=== PATIENT | male | born 1950 | race Caucasian/White ===

== ENCOUNTER 2017-09-15 06:00 | Outpatient (RCR) | payer MEDICARE, OTHER, SELFPAY | END 2017-09-16 23:59 | LOC: PR 06:00 | PROVIDERS: Family Provider Family Medicine; PCP Family Medicine; Visit Provider Internal Medicine Critical Care Medicine | DX: Z00.00 Encounter for general adult medical examination without abnormal findings (principal) ==

== ENCOUNTER 2017-10-08 06:56 | Outpatient (RCR) | payer MEDICARE, OTHER, SELFPAY ==
[2017-08-18 07:49] LABS: International Normalized Ratio 2.8; Prothrombin Time (Protime)PT. 28.2 SECONDS (11.7-14.9)
[2017-09-17 09:04] LABS: International Normalized Ratio 1.9; Prothrombin Time (Protime)PT. 20.7 SECONDS (11.7-14.9)
[2017-10-01 08:18] LABS: International Normalized Ratio 1.3; Prothrombin Time (Protime)PT. 15.2 SECONDS (11.7-14.9)
[2017-10-08 07:25] LABS: International Normalized Ratio 1.5; Prothrombin Time (Protime)PT. 17.8 SECONDS (11.7-14.9)
[2017-10-08 07:40] LABS: AST(SGOT) 55 U/L (15-37); Alanine Aminotransfer ALT/SGPT 46 U/L (16-61); Albumin, Serum 3.9 g/dL (3.2-5.0); Alkaline Phosphatase 60 U/L (45-117); Bilirubin, Direct 0.27 mg/dL (0.00-0.30); Cholesterol 157 mg/dL (200); Globulin 3.9 g/dL (2.2-4.2); High Density Lipoprotein 138 mg/dL; Protein, Total 7.8 g/dL (6.4-8.2); Triglycerides 39 mg/dL; Very Low Density Lipoprotein 8 mg/dL (5-40)
== END 2017-10-08 07:00 | disposition home or self-care (01) ==
LOC: LAB 06:56
PROVIDERS: Nurse Practitioner Family; Family Provider Family Medicine; PCP Family Medicine; Visit Provider Internal Medicine Cardiovascular Disease
DX: I73.9 Peripheral vascular disease, unspecified (principal); Z95.810 Presence of automatic (implantable) cardiac defibrillator; Z79.01 Long term (current) use of 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; Z79.899 Other long term (current) drug therapy
CPT/HCPCS: 36415; 80061; 80076; 85610

== ENCOUNTER 2017-10-13 06:00 | Outpatient (RCR) | payer MEDICARE, OTHER, SELFPAY | END 2017-10-14 23:59 | LOC: PR 06:00 | PROVIDERS: Family Provider Family Medicine; PCP Family Medicine; Visit Provider Internal Medicine Critical Care Medicine | DX: Z00.00 Encounter for general adult medical examination without abnormal findings (principal) ==

== ENCOUNTER 2017-11-10 07:13 | Outpatient (RCR) | payer MEDICARE, OTHER, SELFPAY ==
[2017-10-20 09:38] LABS: International Normalized Ratio 2.1
[2017-10-20 09:58] LABS: T4 Free Direct 0.93 ng/dL (0.76-1.46); T4 Total, Thyroxin 5.4 ug/dL (4.5-12.1); Thyroid Stim Hormone (TSH) 2.24 uIU/mL (0.358-3.74)
[2017-11-10 08:00] LABS: International Normalized Ratio 1.9; Prothrombin Time (Protime)PT. 21.6 SECONDS (11.7-14.9)
== END 2017-11-10 08:00 | disposition home or self-care (01) ==
LOC: LAB 07:13
PROVIDERS: Family Provider Family Medicine; PCP Family Medicine; Visit Provider Internal Medicine Cardiovascular Disease
DX: E03.9 Hypothyroidism, unspecified (principal); Z95.810 Presence of automatic (implantable) cardiac defibrillator; Z79.899 Other long term (current) drug therapy; Z79.01 Long term (current) use of 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; I73.9 Peripheral vascular disease, unspecified
CPT/HCPCS: 36415; 84436; 84439; 84443; 85610

== ENCOUNTER 2017-11-12 06:00 | Outpatient (RCR) | payer SELFPAY | END 2017-11-14 23:59 | LOC: PR 06:00 | PROVIDERS: Family Provider Family Medicine; PCP Family Medicine; Visit Provider Internal Medicine Critical Care Medicine | DX: Z00.00 Encounter for general adult medical examination without abnormal findings (principal) ==

== ENCOUNTER → 2017-11-17 05:43 | Outpatient (CLI) | payer MEDICARE, OTHER, SELFPAY ==
[2017-09-23 07:39] VITALS: BP 156/72; BMI 24.3
--- NOTE | 2017-11-17 14:27 | PFTCOMP ---
COMPLETE PULMONARY FUNCTION TEST INTERPRETATION Brief HPI: Patient is a 66 year old male, currently under the care of Cheryl Schaeffer, who presents to [facility] for complete pulmonary function tests secondary to diagnosis of COPD. Respiratory therapist reports good effort and reproducible results. Interpretation: Forced expiration spirometry shows a very severe large airways obstructive ventilatory defect with an FEV1 of 31 % predicted. There is a significant bronchodilator response in FVC by ATS criteria. Spirograms are of good quality and plateau slowly, indicating slowly emptying areas of the lungs. The respiratory flow volume loop shows decreased expiratory flow rates at all lung volumes consistent with airway obstruction. Lung volumes by body plethysmography show a normal total lung capacity at 6.31 L, 117% predicted. FRC and RV are elevated out of proportion. Lung volume measurements are consistent with air-trapping. Diffusion capacity by carbon monoxide is decreased at 49 % predicted. The airway resistance is elevated. Compared to previous pulmonary function tests from 11/05/2016, there has been a significant change in air trapping with hyperinflation (improvement). Impression: Partially reversible very severe large airways obstructive ventilatory defect with symmetric reduction diffusing capacity and improvement in air trapping compared to previous study.
--- NOTE | 2017-11-17 14:30 | PFTCOMP_ITS ---
COMPLETE PULMONARY FUNCTION TEST INTERPRETATION Brief HPI: Patient is a 66 year old male, currently under the care of Cheryl Schaeffer, who presents to [facility] for complete pulmonary function tests secondary to diagnosis of COPD. Respiratory therapist reports good effort and reproducible results. Interpretation: Forced expiration spirometry shows a very severe large airways obstructive ventilatory defect with an FEV1 of 31 % predicted. There is a significant bronchodilator response in FVC by ATS criteria. Spirograms are of good quality and plateau slowly, indicating slowly emptying areas of the lungs. The respiratory flow volume loop shows decreased expiratory flow rates at all lung volumes consistent with airway obstruction. Lung volumes by body plethysmography show a normal total lung capacity at 6.31 L , 117% predicted. FRC and RV are elevated out of proportion. Lung volume measurements are consistent with air-trapping. Diffusion capacity by carbon monoxide is decreased at 49 % predicted. The airway resistance is elevated. Compared to previous pulmonary function tests from 11/05/2016, there has been a significant change in air trapping with hyperinflation (improvement). Impression: Partially reversible very severe large airways obstructive ventilatory defect with symmetric reduction diffusing capacity and improvement in air trapping compared to previous study.
== END ==
PROVIDERS: Family Provider Family Medicine; PCP Family Medicine; Visit Provider Nurse Practitioner Acute Care
DX: J44.9 Chronic obstructive pulmonary disease, unspecified (principal)
CPT/HCPCS: 94060; 94726; 94729

== ENCOUNTER 2017-12-01 07:13 | Outpatient (RCR) | payer MEDICARE, OTHER, SELFPAY ==
[2017-11-24 07:58] LABS: International Normalized Ratio 1.3; Prothrombin Time (Protime)PT. 16.1 SECONDS (11.7-14.9)
== END 2017-12-01 08:00 | disposition home or self-care (01) ==
LOC: LAB 07:13
PROVIDERS: Family Provider Family Medicine; PCP Family Medicine; Visit Provider Internal Medicine Cardiovascular Disease
DX: I73.9 Peripheral vascular disease, unspecified (principal); Z95.810 Presence of automatic (implantable) cardiac defibrillator; Z79.01 Long term (current) use of 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; Z79.899 Other long term (current) drug therapy
CPT/HCPCS: 36415; 85610

== ENCOUNTER 2017-12-10 06:00 | Outpatient (RCR) | payer MEDICARE, OTHER, SELFPAY | END 2017-12-14 23:59 | LOC: PR 06:00 | PROVIDERS: Family Provider Family Medicine; PCP Family Medicine; Visit Provider Internal Medicine Critical Care Medicine | DX: Z00.00 Encounter for general adult medical examination without abnormal findings (principal) ==

== ENCOUNTER → 2017-12-16 13:35 | Outpatient (CLI) | payer MEDICARE, OTHER, SELFPAY ==
--- NOTE | 2017-12-16 13:36 | ECHOD_ITS ---
Reason For Study: PHTN Procedure This was a 2D Doppler, Color Flow transthoracic echocardiogram. Exam performed in department. Left Ventricle Normal size and thickness. The estimated ejection fraction is 45-50 %. Stage 1 diastolic dysfunction. There is mild global hypokinesis of the left ventricle. Right Ventricle Mildly dilated right ventricle. ICD or pacer leads identified within the right ventricle. Normal systolic function. Atria Normal left atrium. Normal right atrium. Normal atrial septum. Mitral Valve The mitral valve is structurally normal. No prolapse or stenosis seen. Tricuspid Valve Normal tricuspid valve. Mild (1+) tricuspid valve insufficiency. Right ventricular systolic pressure estimated to be 46 mmHg. Mild pulmonary hypertension. Aortic Valve Normal aortic valve. Trisinus/trileaflet aortic valve. Pulmonic Valve Normal pulmonic valve. Great Vessels Normal aortic root. Normal arch. Normal inferior vena cava. Inferior vena cava collapse with sniff. Pericardium/Pleural No pericardial effusion. MMode/2D Measurements & Calculations LVIDd: 5.1 cm IVSd: 0.96 cm Ao root diam: 3.1 cm LVIDs: 3.6 cm LVPWd: 0.89 cm RVDd: 3.8 cm FS: 28.7 % LAV(MOD-bp): 47.2 ml LA A4 area: 15.2 cm2 RA A4 area: 11.8 cm2 LAV(MOD-bp) Indexed: 27.1 ml/m2 LAV(MOD-sp2): 54.4 ml LAV(MOD-sp4): 39.2 ml Doppler Measurements & Calculations MV E max jason: 42.4 cm/sec Lat Peak E' Jason: 10.0 cm/sec Med Peak E' Jason: 6.5 cm/sec MV A max jason: 76.6 cm/sec E/E' lat: 4.2 E/E' med: 6.5 MV E/A: 0.55 Ao V2 max: 108.6 cm/sec LV V1 max: 82.5 cm/sec TR max jason: 295.8 cm/sec Ao max P.7 mmHg LV V1 max P.7 mmHg TR max P.3 mmHg Interpretation Summary The estimated ejection fraction is 45-50 %. Stage 1 diastolic dysfunction. There is mild global hypokinesis of the left ventricle. Mildly dilated right ventricle. Mild (1+) tricuspid valve insufficiency. Right ventricular systolic pressure estimated to be 46 mmHg. Mild pulmonary hypertension. Compared to echo report dated 12/17/2016, LV function has markedly improved from 20% to 45-50%. Ordering Physician: Case Cantrell Referring Physician: JOSE MAURER Performed By: Riana Scherer, FEDERICOCS, RVT
== END ==
PROVIDERS: Family Provider Family Medicine; PCP Family Medicine; Visit Provider Internal Medicine Cardiovascular Disease
DX: I50.9 Heart failure, unspecified (principal); I51.9 Heart disease, unspecified; R06.02 Shortness of breath
CPT/HCPCS: 93306

== ENCOUNTER 2018-01-02 15:51 | Emergency (ER) | payer MEDICARE, OTHER, SELFPAY ==
[2018-01-02 15:53] VITALS: BP 194/89; PULSE 90; RESP 16; TEMP 36.2; O2SAT 99; BMI 23.5
[2018-01-02] MEDS: Silver Nitrate (BKC) 2 EACH TOPICAL (16:05)
[2018-01-02 16:06] VITALS: BP 175/80; PULSE 85; RESP 14; O2SAT 99
--- NOTE | 2018-01-02 16:15 | ED.DCSUM_ITS ---
- ER Visit Summary Date of Service: 01/02/18 Chief Complaint: Wound bleeding History of Present Illness: The patient is a 67 M who was [facility] at [facility] for left forearm skin tear than been bleeding for the past 4 days. Pressure dressing was applied. He went back to the clinic today for another small skin tear that is just proximal to the original lesion that occurred last night. Pressure dressing was again applied but it continues to bleed through the dressing. Patient is currently on Coumadin. He is scheduled to have his level rechecked next week. Last month was reportedly high. Physical Examination: Vital signs are significant for blood pressure 194/89, otherwise vitals unremarkable. He is on chronic nasal cannula O2. Patient sitting upright in bed no acute distress. He is alert and talkative. Left upper extremity examination was a small 2 x 3 mm skin tear in the left forearm with mild continuous oozing. There is a more distal lesion that is well scabbed over and not bleeding. He has good distal pulses with normal range of motion. Test Results: [] Emergency Department Course and Treatment: Silver nitrate was applied to the bleeding lesion with good control. Dressing is applied. On repeat evaluation he has had no bleeding onto the dressing at all. His INR is checked and is currently 2.7. Patient had been instructed to hold his Coumadin until Thursday when it is checked again. Treatment Plan: [] Disposition: Discharge Impression: 1. Skin tear with chemical cautery 2. Supratherapeutic INR This note was generated with [employer] dictation software. It may contain incorrect words, spelling, and punctuation that were not noted in review of the chart prior to signing ED Disposition - Plan for ED Patient: Chief Complaint: Wound Referrals: Joseluis Foote III, MD [Primary Care Provider] -
[2018-01-02 16:45] LABS: International Normalized Ratio 2.7; Prothrombin Time (Protime)PT. 28.9 SECONDS (11.7-14.9)
--- NOTE | 2018-01-02 16:56 | ED.DEP ---
ED Disposition - Plan for ED Patient: Disposition: Home or Assisted Living Chief Complaint: Wound Instructions: ED Avulsion Dermal Referrals: Joseluis Foote III, MD [Primary Care Provider] -
[2018-01-02 17:00] VITALS: BP 168/75; PULSE 74; RESP 16; O2SAT 96
== END 2018-01-02 17:02 | disposition home or self-care (01) ==
PROVIDERS: Emergency Provider Emergency Medicine; Family Provider Family Medicine; PCP Family Medicine
DX: S51.812D Laceration without foreign body of left forearm, subsequent encounter (principal); X58.XXXD Exposure to other specified factors, subsequent encounter; R23.3 Spontaneous ecchymoses; E78.00 Pure hypercholesterolemia, unspecified; J44.9 Chronic obstructive pulmonary disease, unspecified; Z87.891 Personal history of nicotine dependence; Z79.01 Long term (current) use of 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
CPT/HCPCS: 85610; 99282

== ENCOUNTER 2018-01-14 06:00 | Outpatient (RCR) | payer MEDICARE, OTHER, SELFPAY | END 2018-01-14 23:59 | LOC: PR 06:00 | PROVIDERS: Family Provider Family Medicine; PCP Family Medicine; Visit Provider Internal Medicine Critical Care Medicine | DX: Z00.00 Encounter for general adult medical examination without abnormal findings (principal) ==

== ENCOUNTER 2018-01-14 06:38 | Outpatient (RCR) | payer MEDICARE, OTHER, SELFPAY ==
[2017-12-22 08:48] LABS: Prothrombin Time (Protime)PT. 39.4 SECONDS (11.7-14.9)
[2018-01-05 08:30] LABS: Hematocrit 32.8 % (40-54); Hemoglobin 11.3 g/dl (13.0-16.5); International Normalized Ratio 1.3; Prothrombin Time (Protime)PT. 15.7 SECONDS (11.7-14.9)
[2018-01-14 07:14] LABS: International Normalized Ratio 1.1
== END 2018-01-14 07:00 | disposition home or self-care (01) ==
LOC: LAB 06:38
PROVIDERS: Physician Assistant Medical; Family Provider Family Medicine; PCP Family Medicine; Visit Provider Internal Medicine Cardiovascular Disease
DX: I73.9 Peripheral vascular disease, unspecified (principal); Z95.810 Presence of automatic (implantable) cardiac defibrillator; Z79.01 Long term (current) use of 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; Z79.899 Other long term (current) drug therapy
CPT/HCPCS: 36415; 85014; 85018; 85610

== ENCOUNTER 2018-02-09 06:37 | Outpatient (RCR) | payer MEDICARE, OTHER, SELFPAY ==
[2018-01-26 04:16] LABS: International Normalized Ratio 1.6; Prothrombin Time (Protime)PT. 19.5 SECONDS (11.7-14.9)
[2018-02-02 07:31] LABS: International Normalized Ratio 1.5; Prothrombin Time (Protime)PT. 17.7 SECONDS (11.7-14.9)
[2018-02-09 07:11] LABS: International Normalized Ratio 1.6; Prothrombin Time (Protime)PT. 19.4 SECONDS (11.7-14.9)
== END 2018-02-09 07:00 | disposition home or self-care (01) ==
LOC: LAB 06:37
PROVIDERS: Family Provider Family Medicine; PCP Family Medicine; Visit Provider Internal Medicine Cardiovascular Disease
DX: I73.9 Peripheral vascular disease, unspecified (principal); Z95.810 Presence of automatic (implantable) cardiac defibrillator; Z79.01 Long term (current) use of 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; Z79.899 Other long term (current) drug therapy
CPT/HCPCS: 36415; 85610

== ENCOUNTER 2018-02-11 06:00 | Outpatient (RCR) | payer MEDICARE, OTHER, SELFPAY | END 2018-02-13 23:59 | LOC: PR 06:00 | PROVIDERS: Family Provider Family Medicine; PCP Family Medicine; Visit Provider Internal Medicine Critical Care Medicine | DX: Z00.00 Encounter for general adult medical examination without abnormal findings (principal) ==

== ENCOUNTER 2018-03-09 06:56 | Outpatient (RCR) | payer MEDICARE, OTHER, SELFPAY ==
[2018-02-23 07:28] LABS: International Normalized Ratio 1.9
[2018-03-09 07:25] LABS: Prothrombin Time (Protime)PT. 31.6 SECONDS (11.7-14.9)
[2018-03-18 09:12] LABS: International Normalized Ratio 3.6
== END 2018-03-09 09:00 | disposition home or self-care (01) ==
LOC: LAB 06:56
PROVIDERS: Family Provider Family Medicine; PCP Family Medicine; Visit Provider Internal Medicine Cardiovascular Disease
DX: I51.3 Intracardiac thrombosis, not elsewhere classified (principal); Z79.01 Long term (current) use of 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
CPT/HCPCS: 36415; 85610

== ENCOUNTER 2018-03-16 06:00 | Outpatient (RCR) | payer MEDICARE, OTHER, SELFPAY | END 2018-03-16 23:59 | LOC: PR 06:00 | PROVIDERS: Family Provider Family Medicine; PCP Family Medicine; Visit Provider Internal Medicine Critical Care Medicine | DX: Z00.00 Encounter for general adult medical examination without abnormal findings (principal) ==

== ENCOUNTER 2018-04-06 06:45 | Outpatient (RCR) | payer MEDICARE, OTHER, SELFPAY ==
[2018-03-23 07:49] LABS: International Normalized Ratio 2.9; Prothrombin Time (Protime)PT. 30.5 SECONDS (11.7-14.9)
[2018-03-30 08:09] LABS: International Normalized Ratio 3.2; Prothrombin Time (Protime)PT. 32.7 SECONDS (11.7-14.9)
[2018-04-06 07:35] LABS: International Normalized Ratio 3.3; Prothrombin Time (Protime)PT. 33.5 SECONDS (11.7-14.9)
[2018-04-06 08:19] LABS: AST(SGOT) 49 U/L (15-37); Alanine Aminotransfer ALT/SGPT 42 U/L (16-61); Albumin, Serum 3.7 g/dL (3.2-5.0); Alkaline Phosphatase 52 U/L (45-117); Bilirubin, Direct 0.25 mg/dL (0.00-0.30); Cholesterol 180 mg/dL (200); Globulin 3.9 g/dL (2.2-4.2); High Density Lipoprotein 145 mg/dL; Protein, Total 7.6 g/dL (6.4-8.2); Triglycerides 86 mg/dL; Very Low Density Lipoprotein 17 mg/dL (5-40)
== END 2018-04-19 06:54 | disposition home or self-care (01) ==
LOC: LAB 06:45
PROVIDERS: Nurse Practitioner Family; Family Provider Family Medicine; PCP Family Medicine; Visit Provider Internal Medicine Cardiovascular Disease
DX: I51.3 Intracardiac thrombosis, not elsewhere classified (principal); Z79.01 Long term (current) use of 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; E78.5 Hyperlipidemia, unspecified; Z79.899 Other long term (current) drug therapy
CPT/HCPCS: 36415; 80061; 80076; 85610

== ENCOUNTER 2018-04-15 06:00 | Outpatient (RCR) | payer SELFPAY | END 2018-04-16 23:59 | LOC: PR 06:00 | PROVIDERS: Family Provider Family Medicine; PCP Family Medicine; Visit Provider Internal Medicine Critical Care Medicine | DX: Z00.00 Encounter for general adult medical examination without abnormal findings (principal) ==

== ENCOUNTER 2018-05-11 06:47 | Outpatient (RCR) | payer MEDICARE, OTHER, SELFPAY ==
[2018-04-20 08:28] LABS: International Normalized Ratio 3.8; Prothrombin Time (Protime)PT. 37.4 SECONDS (11.7-14.9)
[2018-05-04 07:25] LABS: International Normalized Ratio 2.1; Prothrombin Time (Protime)PT. 23.3 SECONDS (11.7-14.9)
[2018-05-11 08:03] LABS: International Normalized Ratio 1.4; Prothrombin Time (Protime)PT. 17.4 SECONDS (11.7-14.9)
== END 2018-05-11 08:00 | disposition home or self-care (01) ==
LOC: LAB 06:47
PROVIDERS: Family Provider Family Medicine; PCP Family Medicine; Visit Provider Internal Medicine Cardiovascular Disease
DX: I51.3 Intracardiac thrombosis, not elsewhere classified (principal); Z79.01 Long term (current) use of 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
CPT/HCPCS: 36415; 85610

== ENCOUNTER 2018-05-13 06:00 | Outpatient (RCR) | payer MEDICARE, OTHER, SELFPAY | END 2018-05-16 23:59 | LOC: PR 06:00 | PROVIDERS: Family Provider Family Medicine; PCP Family Medicine; Visit Provider Internal Medicine Critical Care Medicine | DX: Z00.00 Encounter for general adult medical examination without abnormal findings (principal) ==

== ENCOUNTER 2018-05-13 19:42 | Emergency (ER) | payer MEDICARE, OTHER, SELFPAY ==
[2018-05-13 19:44] VITALS: BP 154/94; PULSE 80; RESP 18; TEMP 36.2; O2SAT 98; BMI 33.8
[2018-05-13 19:45] VITALS: PULSE 81; RESP 18; TEMP 36.2; O2SAT 99; BMI 33.8
--- NOTE | 2018-05-13 19:50 | CT_ITS ---
STUDY: CT CHEST WITH CONTRAST REASON FOR EXAM: Male, 67 years old. Trauma. RADIATION DOSAGE (If Supplied By Facility): CTDIvol = ( 17.52 ) mGy, DLP = ( 1616.23 ) mGycm TECHNIQUE: Transaxial imaging was performed following intravenous administration of 100ml ml of Isovue 300 contrast material. Individualized dose optimization techniques were used for this CT. COMPARISON: None. FINDINGS: No acute airspace disease or pneumothorax. Spiculated nodule in the left upper lobe measuring 1.3 x 1.1 cm. There is no demonstrated pleural abnormality. Normal heart and pericardium. Left chest wall pacing device. Normal mediastinum. Normal hilar regions. Normal enhanced pulmonary arteries. There is atherosclerotic calcification of the aortic arch with tortuosity and elongation of the aortic arch and descending thoracic aorta. Nondisplaced right anterior fourth, fifth, sixth, seventh and eighth rib fractures. No evidence of left lateral rib fractures. No evidence of thoracic spine fracture or sternal fracture. CT/Chest WITH Contrast IMPRESSION: 1. Multiple nondisplaced hairline fractures of the right anterior ribs as above 2. No acute airspace disease or pneumothorax. Suspicious spiculated left upper lobe nodule. Malignancy cannot be excluded. Malignancy workup is recommended. Electronically Signed: Bony Myers DO at 20:36 EDT Tel , Service support ,
--- NOTE | 2018-05-13 19:50 | CT_ITS ---
STUDY: CT ABDOMEN AND PELVIS WITH CONTRAST REASON FOR EXAM: Male, 67 years old. Abdominal pain after fall RADIATION DOSAGE (If Supplied By Facility): CTDIvol = ( 17.52 ) mGy, DLP = ( 1616.23 ) mGycm TECHNIQUE: Transaxial images were obtained from the dome of the diaphragm to the symphysis pubis without oral contrast. 100ML ml of Isovue 300 contrast was administered. Sagittal and coronal images were reconstructed. Individualized dose optimization techniques were used for this CT. COMPARISON: None. FINDINGS: The visualized lung bases are unremarkable. The visualized portions of the heart are within normal limits. Normal liver. Normal gallbladder and extrahepatic biliary system. Normal spleen. Normal pancreas. Normal bilateral adrenal glands. Normal right kidney. Normal left kidney. Normal visualized stomach. Normal small intestine. There are multiple colonic diverticula consistent with diverticulosis. The appendix is visualized and appears normal. No evidence of retroperitoneal hemorrhage. Normal abdominal aorta. Normal inferior vena cava. Normal retroperitoneum. Prominent distention of the bladder. Query urinary retention. Normal visualized prostate gland. Normal abdominal wall. There are diffuse degenerative changes of the visualized lumbar spine. CT/Abdomen/Pelvis W IV Cont ONLY IMPRESSION: No acute traumatic findings of the abdomen or pelvis. Prominent distention of the bladder. Unsure if this represents urinary retention. Electronically Signed: Bony Myers DO at 20:38 EDT Tel , Service support ,
--- NOTE | 2018-05-13 19:50 | EKG12_ITS ---
Test Reason : NEURO S/SX, FALL Blood Pressure : / mmHG Vent. Rate : 076 BPM Atrial Rate : 076 BPM P-R Int : 238 ms QRS Dur : 128 ms QT Int : 458 ms P-R-T Axes : 053 053 081 degrees QTc Int : 515 ms Sinus rhythm with 1st degree A-V block Non-specific intra-ventricular conduction block Abnormal ECG Confirmed by OLAF SUBRAMANIAN, HCÉTOR ([id number]), photographic editor YARIEL STILES ([id number]) on 05/17/2018 2:52:22 PM Referred By: ALEC Confirmed By:HÉCTOR BABIN MD
[2018-05-13 19:51] LABS: Bedside Glucose 126 mg/dL (70-110)
--- NOTE | 2018-05-13 19:51 | CT_ITS ---
STUDY: CT BRAIN WITHOUT CONTRAST REASON FOR EXAM: Male, 67 years old. Trauma RADIATION DOSAGE (If Supplied By Facility): CTDIvol = ( 44.99 ) mGy, DLP = ( 779.24 ) mGycm TECHNIQUE: Transaxial CT imaging of the brain was performed without administration of intravenous contrast material. Individualized dose optimization techniques were used for this CT. COMPARISON: None. FINDINGS: Normal soft tissue structures. Normal calvarium. There is mild cerebral atrophy with widening of the extra-axial spaces and ventricular dilatation. There are areas of decreased attenuation within the white matter tracts of the supratentorial brain, consistent with microvascular disease changes. Normal basal ganglia and thalami. Normal brainstem. Normal cerebellum. There is no intracranial hemorrhage. There are no findings of an acute ischemic infarction. There is mucoperiosteal inflammatory disease of the paranasal sinuses consistent with mild chronic sinusitis. CT/Brain/Head without Contrast IMPRESSION: Chronic involutional changes of the brain. Electronically Signed: Bony Myers DO at 20:10 EDT Tel , Service support ,
--- NOTE | 2018-05-13 19:51 | CT_ITS ---
STUDY: CT CERVICAL SPINE WITHOUT CONTRAST REASON FOR EXAM: Male, 67 years old. Trauma RADIATION DOSAGE (If Supplied By Facility): CTDIvol = ( 25.13 ) mGy, DLP = ( 487.86 ) mGycm TECHNIQUE: High resolution transaxial imaging was performed without contrast material. Sagittal and coronal images were reconstructed. Individualized dose optimization techniques were used for this CT. COMPARISON: None FINDINGS: Normal craniovertebral junction. Normal anterior atlantoaxial articulation. Normal odontoid process. Normal cervical lordosis. Normal vertebral bodies and posterior osseous elements. No acute fracture or listhesis. Normal mineralization. Mild multilevel degenerative disc disease. No critical central canal stenosis. Surrounding soft tissues are grossly within normal limits. Atherosclerotic disease of the carotid arteries. CT/Spine Cervical without Contras IMPRESSION: Multilevel degenerative changes, as described above. Electronically Signed: Bony Myers DO at 20:11 EDT Tel , Service support ,
[2018-05-13 20:04] LABS: Absolute Lymphocyte Count 1.56 X10^3/ul (0.83-4.51); Absolute Neutrophil Count 6.7 X10^3/uL (2.0-7.7); Basophil# 0.02 X10^3/uL; Basophil% 0.2 % (0-1); Eosinophil# 0.05 X10^3/uL; Eosinophils% 0.5 % (0-5); Hematocrit 33.5 % (40-54); Hemoglobin 11.5 g/dl (13.0-16.5); Lymphocyte # 1.56 X10^3/ul (4.0); Lymphocyte % 16.7 % (19-41); Mean Corp Hgb Conc 34.3 g/gl (32-36); Mean Corpuscular Hgb 32.6 pg (27.0-32.0); Mean Corpuscular Volume 94.9 fL (80-94); Mean Platelet Vol. 8.6 fl (6.2-12.0); Monocyte# 0.92 X10^3/uL; Monocyte% 9.9 % (0-10); Neutrophil # 6.67 X10^3/uL (2.7-7.7); Neutrophil % 71.4 % (47-70); Platelet Count 187 K/mm3 (150-450); RBC Distribution Width SD 47.7 fl (35.1-43.9); Red Blood Count 3.53 M/mm3 (4.6-6.2); White Blood Count 9.3 K/mm3 (4.4-11.0)
[2018-05-13 20:05] LABS: POSITIVE COUNT NO; POSITIVE DIFFERENTIAL NO; POSITIVE MORPHOLOGY NO
[2018-05-13 20:11] LABS: International Normalized Ratio 1.3; Prothrombin Time (Protime)PT. 15.8 SECONDS (11.7-14.9)
[2018-05-13 20:12] LABS: Partial Thromboplast Time 32.1 Seconds (24.1-36.2)
[2018-05-13 20:15] VITALS: O2SAT 98
[2018-05-13 20:15] LABS: Anion Gap 11 (5-15); BUN 18 mg/dL (7-18); BUN/Creat Ratio 26.4 RATIO (10-20); Calcium,Total 8.3 mg/dL (8.5-10.1); Chloride 84 mmol/L (98-107); Creatinine, Serum 0.68 mg/dL (0.70-1.30); EST Glomerular Filtration Rate 123 mL/min (>60); Est Glom Filt Rate - Afr Amer 149 mL/min (>60); Estimated Creatinine Clearance 62.35 ml/min; Glucose 115 mg/dL (74-106); Potassium 3.3 mmol/L (3.5-5.1); Sodium Level 124 mmol/L (136-145)
[2018-05-13] MEDS: 0.9% Normal Saline 1,000 ML 999 ML IV (20:21)
--- NOTE | 2018-05-13 20:35 | ED.VISSUMM ---
- ER Visit Summary Date of Service: 05/13/18 Chief Complaint: Fall History of Present Illness: The patient is a 67 M that apparently fell down a flight of stairs at home. He was found at the bottom of his stairs at home. Family called EMS. He was found to have a laceration to his occipital scalp. He had multiple abrasions. They felt that he was confused and he was having difficulty breathing. They were assisting with ventilations with a bag valve mask. On arrival, the patient says he was feeling well prior to the fall. He says he did have 5 beers today. He is complaining of some back pain. Denies any weakness or numbness. He does take Coumadin. Physical Examination: Afebrile and vital signs unremarkable. 99% on 2 L. GCS 14 for some slurred speech. No focal or lateralizing neurologic abnormalities. Heart regular rate and rhythm. Lungs clear bilaterally. Abdomen slightly distended but otherwise nontender. Good pulses in all extremities, symmetric. He has an occipital laceration. Cervical collar is in place. Multiple abrasions over his extremities. Test Results: See below Emergency Department Course and Treatment: Patient seen immediately in the trauma room. Cervical spine immobilization maintained. Patient is on oxygen. He had a fluid bolus and 2 IVs. Hoang catheter placed. He was placed on a environmental monitoring technician. CT head and neck showed chronic changes. CT chest, abdomen, pelvis pending. INR 1.3. Labs fairly unremarkable. Alcohol level 222. Tox screen pending. Type and screen pending. EKG showed sinus rhythm. No signs of ischemia or infarction. I suspect the patient may have fallen secondary to alcohol use. There are no signs of stroke. He will need further observation in the hospital out of trauma center. At his request, I did call [facility] and Dr. Gary accepted the patient to the emergency department. Treatment Plan: As above Disposition: Transfer to [facility] Impression: 1. Fall 2. Scalp laceration 3. Multiple abrasions This note was generated with [employer] dictation software. It may contain incorrect words, spelling, and punctuation that were not noted in review of the chart prior to signing ED Disposition - Plan for ED Patient: Chief Complaint: Neuro S/Sx Referrals: Joseluis Foote III, MD [Primary Care Provider] -
--- NOTE | 2018-05-13 20:41 | ED.DCSUM_ITS ---
- ER Visit Summary Date of Service: 05/13/18 Chief Complaint: Fall History of Present Illness: The patient is a 67 M that apparently fell down a flight of stairs at home. He was found at the bottom of his stairs at home. Family called EMS. He was found to have a laceration to his occipital scalp. He had multiple abrasions. They felt that he was confused and he was having difficulty breathing. They were assisting with ventilations with a bag valve mask. On arrival, the patient says he was feeling well prior to the fall. He says he did have 5 beers today. He is complaining of some back pain. Denies any weakness or numbness. He does take Coumadin. Physical Examination: Afebrile and vital signs unremarkable. 99% on 2 L. GCS 14 for some slurred speech. No focal or lateralizing neurologic abnormalities. Heart regular rate and rhythm. Lungs clear bilaterally. Abdomen slightly distended but otherwise nontender. Good pulses in all extremities, symmetric. He has an occipital laceration. Cervical collar is in place. Multiple abrasions over his extremities. Test Results: See below Emergency Department Course and Treatment: Patient seen immediately in the trauma room. Cervical spine immobilization maintained. Patient is on oxygen. He had a fluid bolus and 2 IVs. Hoang catheter placed. He was placed on a awake overnight monitor. CT head and neck showed chronic changes. CT chest, abdomen, pelvis pending. INR 1.3. Labs fairly unremarkable. Alcohol level 222. Tox screen pending. Type and screen pending. EKG showed sinus rhythm. No signs of ischemia or infarction. I suspect the patient may have fallen secondary to alcohol use. There are no signs of stroke. He will need further observation in the hospital out of trauma center. At his request, I did call [facility] and Dr. Gary accepted the patient to the emergency department. Treatment Plan: As above Disposition: Transfer to [facility] Impression: 1. Fall 2. Scalp laceration 3. Multiple abrasions This note was generated with [employer] dictation software. It may contain incorrect words, spelling, and punctuation that were not noted in review of the chart prior to signing ED Disposition - Plan for ED Patient: Chief Complaint: Neuro S/Sx Referrals: Joseluis Foote III, MD [Primary Care Provider] -
[2018-05-13 20:47] VITALS: BP 150/83; PULSE 85; RESP 18; O2SAT 96
[2018-05-13 21:14] LABS: Amphetamine Urine VISTA NEGATIVE (<1000 ng/mL); Barbiturate Urine VISTA NEGATIVE (< 200 ng/mL); Benzodiazepine Urine VISTA NEGATIVE (< 200 ng/mL); Cocaine Urine VISTA NEGATIVE (< 300 ng/mL); Ecstacy Urine VISTA NEGATIVE (< 500 ng/mL); Methadone Urine VISTA NEGATIVE (< 300 ng/mL); PCP Urine VISTA NEGATIVE (< 25 ng/mL); THC Urine VISTA NEGATIVE (< 50 ng/mL); Vista UDS pH Range 6
== END 2018-05-13 20:48 | disposition short-term general hospital (02) ==
LOC: ED 20:13
PROVIDERS: Emergency Provider Emergency Medicine; Family Provider Family Medicine; PCP Family Medicine
DX: S01.01XA Laceration without foreign body of scalp, initial encounter (principal); T14.8XXA Other injury of unspecified body region, initial encounter; W10.9XXA Fall (on) (from) unspecified stairs and steps, initial encounter; Y93.9 Activity, unspecified; Y92.009 Unspecified place in unspecified non-institutional (private) residence as the place of occurrence of the external cause; Y99.9 Unspecified external cause status; E78.00 Pure hypercholesterolemia, unspecified; I25.10 Atherosclerotic heart disease of native coronary artery without angina pectoris; J44.9 Chronic obstructive pulmonary disease, unspecified; Z87.891 Personal history of nicotine dependence; Z79.01 Long term (current) use of 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; Z79.899 Other long term (current) drug therapy; Y90.7 Blood alcohol level of 200-239 mg/100 ml
CPT/HCPCS: 51702; 70450; 71260; 72125; 74177; 80048; 80307; 80320; 82962; 85025; 85610; 85730; 86850; 86900; 93005; 96360; 99285; J7030; Q9967; A4216; G0480

== ENCOUNTER → 2018-06-08 09:25 | Outpatient (CLI) | payer MEDICARE, OTHER, SELFPAY ==
[2018-06-08] VITALS (11 sets, daily range): BP systolic 118–143; BP diastolic 49–87; PULSE 87–98; RESP 14–18; TEMP 36.6; O2SAT 91–100; BMI 22.6
--- NOTE | 2018-06-08 | LUNG_PTH ---
PATIENT: JIGNESH LOPEZ LOC: [place] U#:[id number] AGE/SX: 74/M ROOM: RE06/08/[address]: VICKIE Olivo : 1950 BED: DIS: SPEC #: [id number] RECD: 06/08/18 13:19 STATUS: JOSÉ JESUS #: [id number] KATHE: 06/08/18 00:[address]: Cheryl Schaeffer NP DEPT: SURGICAL PATHOLOGY RECD BY: Iker Robb ENTERED: 06/08/18 13:19 SP TYPE: LUNG BX OTHR DR: Dr. Joseluis Foote III, MD Tissues: Lung, NOS Procedures: FNA Specimen Adequacy Special Stain Group II Surgery Specimen Level IV Diff Quik Stain (control) Imprint (control) HEADER OPERATION: CT-guided left upper lobe/lung biopsy PRE-OP DIAGNOSIS: Mass - left upper TISSUE SUBMITTED: Left upper lobe lung mass MICROSCOPIC DIAGNOSIS Left upper lobe lung mass, CT-guided core biopsy: Non-small cell carcinoma, favor squamous cell carcinoma. See comment. NOE:beni 06/10/18 COMMENT The specimen is evaluated at the time of CT-guided lung biopsy by Dr. Blas. Immediate Evaluation = Atypical cells noted suspicious for non-small cell carcinoma. Immunohistochemistry ([id number]) supports the above diagnosis. Case has been reviewed in consultation with Dr. Mcgowan who concurs with the above diagnosis. IDC:AM MICROSCOPIC DESCRIPTION Slides are reviewed. GROSS DESCRIPTION Received in fixative is one container labeled with the patient's name and designated CT-guided left lung biopsy. The specimen consists of multiple elongated fragments of ram soft tissue that in aggregate measure 1.5 x 0.1 x <0.1 cm. The specimen is totally submitted in one cassette. / NOE:beni 06/08/18 TC:0 CPT: 00462, 70188 ADDENDUM ADDENDUM ADDENDUM ADDENDUM ADDENDUM ADDENDUM ADDENDUM 07/02/2018 08:56 ADDENDUM 07/02/2018 08:56 ADDENDUM 07/02/2018 08:56 ADDENDUM 07/02/2018 08:56 ADDENDUM 07/02/2018 08:56 PD-L1 ([id number]) IMMUNOHISTOCHEMISTRY ANALYSIS FROM [facility] INTERPRETATION: No expression Tumor proportion score: <1% Please see complete report in e-chart or EMR for complete details
--- NOTE | 2018-06-08 | IMM_PTH ---
PATIENT: JIGNESH LOPEZ LOC: CT U#:[id number] AGE/SX: 74/M ROOM: RE06/08/[address]: VICKIE Olivo : 1950 BED: DIS: SPEC #: [id number] RECD: 06/10/18 10:36 STATUS: JOSÉ LEE #: [id number] KATHE: 06/08/18 00:[address]: Cheryl Schaeffer NP DEPT: IMMUNOHISTOCHEMISTRY RECD BY: Christen Somers ENTERED: 06/10/18 10:39 SP TYPE: IMMUNO OTHR DR: Dr. Joseluis Foote III, MD Tissues: Lung, NOS Procedures: CK8 (initial) CD56 (add) CHROMO (add) CK5-6 (add) CK7 (add) TTF1 (add) P40 (add) PHYSICIAN & INSTITUTION [place] [address] SPECIMEN INFORMATION: Tissue Source: Left upper lobe lung, biopsy Clinical Info: Mass, left upper Specimen Number: [id number] CPT code: 78229, 29535 x6 METHODOLOGY: Deparaffinized sections of prefer/formalin-fixed tissue or PAP/DQ stained slides are incubated with monoclonal/polyclonal antibodies/oligonucleotide probes. Localization is made via biotin free immunoperoxidase method. Appropriate controls are performed and reacted as expected. Results on target cell population are indicated in the following table: RESULTS: ANTIBODY / CLONE RESULT CK8 ([id number]) positive CK7 (OV-TL12/30) negative Chromo (LK2H10) negative CD56 (123C3.D5) negative TTF-1 (8G7G3/1) negative P40 (BC28) positive CK5-6 (D5 & 1684) positive These tests were developed and their performance characteristics determined by [facility]. They may not have been cleared or approved by the U.S. Food and Drug Administration. The FDA has determined that such clearance or approval is not necessary. INTERPRETATION: Left upper lobe lung, biopsy: Non-small cell carcinoma, favor squamous cell carcinoma. NOE:beni 06/10/18
--- NOTE | 2018-06-08 09:27 | CT_ITS ---
PROCEDURE: CT GUIDED CORE NEEDLE BIOPSY OF A left upper lobe LUNG LESION INDICATION: Male, 67 years old. Nodular density in the left upper lobe. PHYSICIAN: Dr.Pedicelli SUBRAMANIAN CONSENT: Written informed consent was obtained having explained the risks, benefits and alternatives in detail with the patient who accepted the risks and agreed to proceed. Laboratory review and clinical assessment was performed. CONSCIOUS SEDATION PROTOCOL: The Drugs used were: 1 mg Versed, IV., and 25 mcg Fentanyl, IV. The sedation time was: 30 minutes. Conscious sedation was started at 12:00 PM and terminated at 12:30 PM. The conscious sedation protocol was independently monitored. RADIATION DOSAGE (If Supplied By Facility): CTDIvol = ( 16.8 ) mGy, DLP = ( 487.31 ) mGycm Individualized dose optimization techniques were used for this CT. TECHNIQUE: The patient was placed in the prone position. A noncontrast CT was performed to localize the lesion in the posterior aspect of the left upper lobe . The skin surface was prepped and draped in a sterile fashion. 1% lidocaine was used for local anesthesia. Using CT guidance, a 20-gauge coaxial biopsy device was advanced to the periphery of the lesion. A total of 4 core specimens were obtained. The specimens were placed in a formalin solution. A post procedure CT demonstrated no adverse sequelae or pneumothorax. The patient tolerated the procedure well without adverse event. A negative biopsy does not exclude malignancy. Further imaging or clinical followup based on patient condition and degree of clinical suspicion for malignancy. Suggest rebiopsy, if biopsy results do not match with clinical scenario. CT/Biopsy/Inj or Needle Placement IMPRESSION: 1. CT directed core needle biopsy of the left upper lobe nodule using CT image guidance with image documentation as described. Pathology results are pending. 2. Conscious Sedation protocol utilized with independent monitoring. Electronically Signed: Sebastien Zheng MD at 14:03 EDT Tel [phone], Service support ,
[2018-06-08 09:57] LABS: International Normalized Ratio 1.2; Prothrombin Time (Protime)PT. 15.1 SECONDS (11.7-14.9)
[2018-06-08 10:23] LABS: Platelet Count 294 K/mm3 (150-450)
--- NOTE | 2018-06-08 12:40 | RAD_ITS ---
STUDY: X-RAY CHEST REASON FOR EXAM: Male, 67 years old. Immediate post left lung biopsy radiograph. TECHNIQUE: AP inspiration and expiration views were obtained. COMPARISON: Comparison is made with prior examination dated February 05, 2017. FINDINGS: Stable elevation of the right hemidiaphragm. There is evidence of a left 15% pneumothorax. The patient is asymptomatic at this time. A follow-up radiograph was obtained in 2 hours. RAD/Chest Insp/Exp 2 View IMPRESSION: Status post left lung biopsy with resultant 50% pneumothorax. Follow-up will be obtained. Electronically Signed: Sebastien Zheng MD at 10:58 EDT Tel [phone], Service support ,
--- NOTE | 2018-06-08 14:24 | RAD_ITS ---
STUDY: X-RAY CHEST REASON FOR EXAM: Male, 67 years old. Post lung biopsy TECHNIQUE: Frontal inspiratory and expiratory chest view 1430 hours COMPARISON: 06/08/2018 1248 hours FINDINGS: There is an anterior chest wall single chamber permanent pacemaker. There is a large left-sided pneumothorax with mild shift to the right. There is compression of left basilar parenchyma, mild bilateral interstitial lung disease, hyperinflation, elevation of the right hemidiaphragm, hyperinflation of the right base. The lungs are clear and expanded. There is no demonstrated pleural abnormality. Normal size heart. Normal mediastinum and carina. Normal visualized pulmonary arteries. There is atherosclerotic calcification of the aortic arch with tortuosity. There are diffuse degenerative changes of the visualized thoracic spine. Multiple bilateral rib deformities. There is no demonstrated abnormality of the visualized soft tissue structures of the upper abdomen. RAD/Chest Insp/Exp 2 View IMPRESSION: Large left pneumothorax with mild tension marked compression off left basilar parenchyma superimposed on chronic interstitial lung disease and COPD. No significant change since most recent exam. N.B. : The above information has been verbally conveyed by Michell Grajeda MD to LEXY Moss, on 06/09/2018 07:37:00 (ET). Electronically Signed: Michell Grajeda MD at 7:17 EDT , Service support ,
[2018-07-02 15:08] LABS: Miscellaneous Lab Procedure SEE PATHOLOGY REPORT
== END ==
PROVIDERS: Family Provider Family Medicine; PCP Family Medicine; Referring Provider Nurse Practitioner Acute Care; Visit Provider Nurse Practitioner Acute Care
DX: C34.12 Malignant neoplasm of upper lobe, left bronchus or lung (principal); R91.1 Solitary pulmonary nodule
CPT/HCPCS: 32405; 36415; 71046; 77012; 85049; 85610; 85730; 88172; 88305; 88313; 88341; 88342; 99156; 99157; J7040; A4216

== ENCOUNTER 2018-06-10 13:55 | Inpatient (IN) | payer MEDICARE, OTHER, SELFPAY ==
[2018-06-10] VITALS (10 sets, daily range): BP systolic 102–154; BP diastolic 54–75; PULSE 82–94; RESP 16–22; TEMP 36.5–36.6; O2SAT 92–100; BMI 22.6
--- NOTE | 2018-06-10 14:43 | RAD_ITS ---
STUDY: X-RAY CHEST REASON FOR EXAM: Male, 67 years old. Increasing shortness of breath. Recent left lung biopsy. TECHNIQUE: Single AP portable view of the chest. COMPARISON: Comparison is made with prior examination dated June 08, 2018. FINDINGS: EKG electrodes are seen. Examination of a large left pneumothorax. This has progressed compared to prior study. Atelectasis in the posterior medial segment of the left lower lobe. The right lung is well expanded. Normal size heart. A left-sided pacemaker is seen. Calcified right hilar lymph nodes. Normal visualized pulmonary arteries. There is atherosclerotic calcification of the aortic arch with tortuosity. Normal visualized thoracic spine. Normal visualized ribs, clavicles, and shoulders. There is no demonstrated abnormality of the visualized soft tissue structures of the upper abdomen. RAD/Chest 1 View (Portable) IMPRESSION: Large left pneumothorax. This has progressed as compared to prior study. Atelectasis in the posterior medial segment of the left lower lobe. Electronically Signed: Sebastien Zheng MD at 15:03 EDT Tel [phone], Service support ,
--- NOTE | 2018-06-10 15:39 | ED.DCSUM_ITS ---
- ER Visit Summary Date of Service: 06/10/18 Chief Complaint: Shortness of breath status post lung biopsy History of Present Illness: The patient is a 67 M who had a lung biopsy this past weekend. X-ray revealed a 50% pneumothorax on the left. He was told not to use his trilogy machine. When he called the office he spoke to Dr. Huitron nurse who recommended that he could use his trilogy machine last night. He presents because of increased shortness of breath. He denies any other symptoms. Physical Examination: Vital signs noted. Has mild respiratory distress. There are diminished breath sounds bilaterally greater left. There is hyperresonance percussion on the left. Heart is regular without murmur, gallop or rub. Abdomen is soft nontender. Neuro exam is nonfocal. Test Results: Chest x-ray was obtained which reveals significant enlargement of the left pneumothorax. Emergency Department Course and Treatment: Chest x-ray was obtained to determine if the pneumothorax expanded. Since the pneumothorax did expand Dr. Angel Gary was contacted. After reviewing patient's past medical history he recommended a 20 Portuguese chest tube and admission to hospitalist with consult to him. Consent was obtained for placement of left chest tube. He was explained risk benefits. Patient's and 's questions were answered. The left torso was prepped draped sterile manner. Incision was made using a 10 blade. Blunt dissection was undertaken and the 20 Portuguese chest tube was placed to ribs above the incision site. There was a small ferreira of air. There is condensation noted in the 20 Portuguese chest tube. Patient desaturated and a stat chest x-ray was obtained. Patient states he desaturates when he is supine. Will confirm position and evaluate for other causes of his hypoxia. Stat portable chest x-ray reveals proper position of chest tube and expansion of pneumothorax. There was palpable crepitus of the rib. informed me that he had multiple rib fractures on the left. He had a fall 4 weeks ago. Treatment Plan: Chest tube left Disposition: Admit Medr Impression: 1. Expanding left pneumothorax status post lung biopsy 2. History of CHF 3. History of COPD 4. History of nonischemic cardiomyopathy 5. History of pulmonary hypertension 6. History of peripheral arterial disease 7. History of recent fall with multiple left rib fractures and right rib fractures This note was generated with [employer] software. It may contain incorrect words, spelling, and punctuation that were not noted in review of the chart prior to signing ED Disposition - Plan for ED Patient: Chief Complaint: Shortness of Breath Referrals: Joseluis Foote III, MD [Primary Care Provider] -
[2018-06-10 16:15] LABS: Absolute Lymphocyte Count 1.37 X10^3/ul (0.83-4.51); Absolute Neutrophil Count 4.5 X10^3/uL (2.0-7.7); Basophil# 0.02 X10^3/uL; Basophil% 0.3 % (0-1); Eosinophil# 0.17 X10^3/uL; Eosinophils% 2.6 % (0-5); Hematocrit 29.4 % (40-54); Hemoglobin 9.3 g/dl (13.0-16.5); Lymphocyte # 1.37 X10^3/ul (4.0); Lymphocyte % 21.1 % (19-41); Mean Corp Hgb Conc 31.6 g/gl (32-36); Mean Corpuscular Hgb 31.7 pg (27.0-32.0); Mean Corpuscular Volume 100.3 fL (80-94); Mean Platelet Vol. 8.8 fl (6.2-12.0); Monocyte# 0.43 X10^3/uL; Monocyte% 6.6 % (0-10); Neutrophil # 4.48 X10^3/uL (2.7-7.7); Neutrophil % 68.9 % (47-70); POSITIVE COUNT NO; POSITIVE DIFFERENTIAL NO; POSITIVE MORPHOLOGY NO; Platelet Count 227 K/mm3 (150-450); RBC Distribution Width CV 14.2 % (11.6-14.6); RBC Distribution Width SD 51.8 fl (35.1-43.9); Red Blood Count 2.93 M/mm3 (4.6-6.2); White Blood Count 6.5 K/mm3 (4.4-11.0)
--- NOTE | 2018-06-10 16:15 | RAD_ITS ---
STUDY: X-RAY CHEST REASON FOR EXAM: Male, 67 years old. Post chest tube insertion. TECHNIQUE: Single AP portable upright view of the chest. COMPARISON: Portal AP upright chest x-ray 1446 hours. FINDINGS: Chest tube is now seen entering the lateral lower left hemithorax, its tip at the medial left superior sulcus. Single lead left subclavian cardiac pacemaker is unchanged. Left pneumothorax has been evacuated. There is hazy density at the left base that may be incompletely aerated lung. Small pleural effusion is difficult to exclude. Minor subsegmental crowding in the inferior right base. There is no demonstrated pleural abnormality. Normal size heart. Normal mediastinum and carina. Normal visualized pulmonary arteries. There is stable atherosclerotic calcification of the aortic arch. There are stable multilevel degenerative changes of the visualized thoracic spine. Normal visualized ribs, clavicles, and shoulders. Gas is seen in the soft tissues of the left lateral chest wall at the level of the chest tube insertion. There is no demonstrated abnormality of the visualized soft tissue structures of the upper abdomen. RAD/Chest 1 View (Portable) IMPRESSION: 1. Successful evacuation of the left pneumothorax following placement of left chest tube. 2. There is incomplete reaeration of the left lung base. Small left pleural effusion not excluded. Electronically Signed: Dewayne Perez MD at 16:55 EDT , Service support ,
[2018-06-10 16:18] LABS: Anion Gap 7 (5-15); BUN 14 mg/dL (7-18); BUN/Creat Ratio 17.5 RATIO (10-20); Calcium,Total 8.9 mg/dL (8.5-10.1); Chloride 96 mmol/L (98-107); EST Glomerular Filtration Rate 102 mL/min (>60); Est Glom Filt Rate - Afr Amer 124 mL/min (>60); Estimated Creatinine Clearance 83.01 ml/min; Glucose 84 mg/dL (74-106); Potassium 4.2 mmol/L (3.5-5.1); Sodium Level 136 mmol/L (136-145)
[2018-06-10] MEDS: Ondansetron 4 MG/2 ML Vial IV (16:21)
[2018-06-10] MEDS: Morphine 4 MG/ML Syringe IV (16:23)
--- NOTE | 2018-06-10 16:49 | PCM.HP.STD ---
Problem List (1) Shortness of breath Status: Acute History of Present Illness Date of Admission: 06/10/18 Chief Complaint: shortness of breath The patient is a 67 year old M with a history of COPD, hypertension and pulmonary nodule. He was admitted to the ED on 06/10/2018 with a complaint of worsening shortness of breath. Patient had a lung biopsy of left pulmonary nodule a few days ago. He subsequently had a small left sided pneumothorax after the procedure. He uses trilogy at home for COPD. After the procedure he went home and his called his legal support assistant office to find out if he should use the trilogy at home or not. He was told not to use the trilogy on account of the pneumothorax and was told that he would receive a call subsequently to tell him whether he should use it or not. However, next day according to patient's , nurse from radiology department called patient and told him that he could use the trilogy. Patient therefore started using trilogy. They noted this morning that his shortness of breath that acutely worsened. He did not have any associated chest pain though he had bilateral flank pain from bilateral rib fractures which she sustained in a fall about a week ago. He denied any palpitations, lightheadedness or dizziness, abdominal pain, diarrhea vomiting. He came into the ED a chest x-ray showed that the left-sided pneumothorax had significantly enlarged. He had a chest tube placed in the ED and has been admitted to be managed for traumatic pneumothorax. [] Past Medical History Past Medical History (Chronic Problems): Chronic Problems (Last Reviewed 05/27/18 @ 10:31 by Cheryl Schaeffer, WILLIE-C) Implantable cardioverter-defibrillator (ICD) in situ (Chronic 12/27/16) [employer] Dynogen EL ICD, model D150; Seriao # [id number] Secondary pulmonary arterial hypertension (Chronic) Nonischemic cardiomyopathy (Chronic) EF 15-20% per heart cath 08/29/2016; 20-35% per echo 12/17/2016 Severe left ventricular systolic dysfunction (Chronic) EF 15-20% per heart cath 08/29/2016; 20-35% per echo 12/17/2016 History of left heart catheterization (Chronic) Mild, nonobstructive CAD per [facility] 08/29/2016 @ [facility] per Dr. Cantrell Atherosclerotic heart disease of [place] coronary artery without angina pectoris (Chronic) Mild, nonobstructive CAD per [facility] 08/29/2016 @ [facility] per Dr. Óscar KRISHNAMURTHY (peripheral vascular disease) (Chronic) Long-term use of high-risk medication (Chronic) Stage 3 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) FEV1 31 PND (paroxysmal nocturnal dyspnea) (Chronic) Hyperlipidemia (Chronic) intermediate card tender current use of anticoagulant (Chronic) Psoriatic arthritis (Chronic) Acne cystica (Chronic) CHF (congestive heart failure), NYHA class I (Chronic) Pulmonary hypertension (Chronic) RVSP 47mm hg per echo 08/28/2016 (unable to estimate per Echo 12/17/2016) Medical History: Medical History (Last Reviewed 05/27/18 @ 10:31 by VICKIE Olivo) Left ventricular thrombus (Acute) I51.3 Nonischemic cardiomyopathy (Chronic) I42.8 EF 15-20% per heart cath 08/29/2016; 20-35% per echo 12/17/2016 Severe left ventricular systolic dysfunction (Chronic) I51.9 EF 15-20% per heart cath 08/29/2016; 20-35% per echo 12/17/2016 Atherosclerotic heart disease of [place] coronary artery without angina pectoris (Chronic) I25.10 Mild, nonobstructive CAD per [facility] 08/29/2016 @ [facility] per Dr. Cantrell PVD (peripheral vascular disease) (Chronic) I73.9 Stage 3 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) J44.9 FEV1 31 PND (paroxysmal nocturnal dyspnea) (Chronic) R06.00 Hyperlipidemia (Chronic) E78.5 SOB (shortness of breath) (Acute) R06.02 intermediate card tender current use of anticoagulant (Chronic) Z79.01 Acute on chronic respiratory failure with hypoxia (Resolved) J96.21 Psoriatic arthritis (Chronic) L40.50 CHF (congestive heart failure), NYHA class I (Chronic) I50.9 Pulmonary hypertension (Chronic) I27.2 RVSP 47mm hg per echo 08/28/2016 (unable to estimate per Echo 12/17/2016) CAP (community acquired pneumonia) (Resolved) J18.9 Chronic respiratory failure with hypoxia and hypercapnia (Resolved) J96.11, J96.12 Allergies No Known Allergies Allergy (Verified 06/10/18 13:59) Home Medications: Ambulatory Orders Medication Instructions Recorded Hydroxychloroquine [Plaquenil] 200 mg PO BIDCM 08/27/16 Multivitamin [Multiple Vitamins] 1 ea PO DAILY 08/27/16 Omeprazole Magnesium 40 mg PO DAILY 08/27/16 aspirin 81 mg chewable tablet 81 mg PO .QOD tab 10/15/17 carvedilol 6.25 mg tablet 6.25 mg PO BID 10/15/17 cholecalciferol (vitamin D3) 2,000 1,000 unit PO BID cap 10/15/17 unit capsule fluticasone 50 mcg/actuation nasal 2 spray INTRANASAL BID PRN PRN g 10/15/17 spray,suspension levothyroxine 25 mcg capsule 25 mcg PO DAILY cap 10/15/17 losartan 50 mg tablet 50 mg PO DAILY 10/15/17 warfarin 5 mg tablet 5 mg PO .COMPLEX tab 02/09/18 albuterol sulfate 2.5 mg/3 mL 2.5 mg INHALATION Q6HWA.RT #180 03/03/18 (0.083 %) solution for nebulization vial albuterol sulfate HFA 90 2 puff INHALATION Q4H PRN PRN #18 g 03/30/18 mcg/actuation aerosol inhaler Albuterol IH (ProAir) [Proair Hfa 1 puff INHALATION Q4H PRN PRN 06/10/18 (SP)Vent Pts] Atorvastatin Calcium [Lipitor] 40 mg PO QHS 06/10/18 Budesonide/Formoterol 160/4.5 2 puff INHALATION BID 06/10/18 [Symbicort 160/4.5 Mcg Inhaler (SP)] Furosemide [Lasix] 40 mg PO BID 06/10/18 Tiotropium [place] [Spiriva] 2 puff IH DAILY 06/10/18 Surgical History: Surgical History (Last Reviewed 05/27/18 @ 10:31 by Cheryl Schaeffer NP-C) Implantable cardioverter-defibrillator (ICD) in situ (Chronic) Onset Date: 12/27/16 Z95.810 [employer] Dynogen EL ICD, model D150; Seriao # [id number] History of left heart catheterization (Chronic) Z98.890 Mild, nonobstructive CAD per [facility] 08/29/2016 @ [facility] per Dr. Cantrell Surgical History: no surgical history, - Lives: Spouse/ Significant Other Smoking Status: Former smoker Tobacco Use: Cigarettes - quit 10 years ago - *Family History Maternal Family History: Family History (Last Reviewed 05/27/18 @ 10:31 by VICKIE Olivo) Mother Heart disease Brother CVA (cerebral vascular accident) Father Cancer Grandmother Diabetes History Items: - - No COPD Paternal Family History: Family History (Last Reviewed 05/27/18 @ 10:31 by VICKIE Olivo) Mother Heart disease Brother CVA (cerebral vascular accident) Father Cancer Grandmother Diabetes History Items: - - No COPD Review of Systems Constitutional: Denies: Chills, Fever, Malaise, Weight Change Eyes: Denies: Blurred vision HEENT: Denies: Head Aches, Sinus Congestion, Sinus Drainage Cardiovascular: Denies: Chest Pain, Chest Pressure, Chest Tightness, Palpitations, Paroxysmal Noc. Dyspnea Respiratory: Reports: Shortness of Breath, Shortness of breath at rest, Shortness of breath upon exertion. Denies: Cough, Pleuritic Pain, Sputum production, Wheezing Gastrointestinal: Denies: Abdominal Pain, Nausea, Vomiting Genitourinary: Denies: Dysuria Musculoskeletal: Denies: Joint Pain, Joint Tenderness Skin: Denies: Rash, Wounds Neurological: Denies: Numbness, Tingling, Focal weakness Psychiatric: Denies: Anxiety, Depression, Homicidal Ideations, Suicidal Ideations Hematologic/ Lymphatic: Denies: Easy Bruising, Easy Bleeding VTE Information - Inpt Only VTE Present on Admission: No VTE Pharm Prophylaxis ordered?: Yes Patient Problems: Active and Suspected Problems (Last Reviewed 05/27/18 @ 10:31 by VICKIE Olivo) Shortness of breath (Acute) - Physical Exam General: Alert, Oriented x3, Cooperative, - - visibly short of breath; on nonrebreather mask on 6L of oxygen HEENT: Atraumatic, PERRLA, EOMI, Normocephalic Oral: Moist Mucosa Neck: Supple, No JVD, Negative Carotid Bruits Lungs: - - absent breath sounds in left upper and lower lung booker. Mildly decreased breath sounds in right upper, mid and lower lung booker. on 6L of oxygen by nonrebreather mask; using accessory muscles of respiration. Chest tube in left side of chest. Cardiovascular: Regular rate, Regular Rhythm, Normal S1, Normal S2, No murmurs Abdomen: Bowel Sounds Present, Soft, Non Tender, No Hepato-splenomegaly, Obese Extremities: No clubbing, No cyanosis, No edema, Capillary Refill Less than 3 Seconds Skin: No rashes, No breakdown, - - ecchymotic bruising over left and right flanks. Chest tube dressing over left side of chest. Musculoskeletal: No Tenderness to Palpation of Joints or Extremities Lymphatic: No Cervical, Supraclavicular, or Inguinal Adenopathy Neurological: Cranial nerves II-XII grossly intact, Neuro grossly intact, Motor Exam 5/5 strength throughout Psych/Mental Status: Normal Affect, Appropriate, Alert and oriented to time, place, person, mood and affect Vital Signs Temp Pulse Resp BP Pulse Ox 97.8 F 94 16 154/75 H 100 06/10/18 13:56 06/10/18 16:18 06/10/18 16:18 06/10/18 16:18 06/10/18 16:18 Oxygen Flow Rate (L/min) 15 Oxygen Delivery Method Non-Rebreather Weight: 144 lb 6.4 oz Body Mass Index (BMI) 22.6 Finger Stick Blood Glucose 126 Laboratory Tests Past 24 Hrs 06/10/18 06/10/18 15:59 15:59 WBC 6.5 RBC 2.93 L Hgb 9.3 L Hct 29.4 L MCV 100.3 H MCH 31.7 MCHC 31.6 L RDW 14.2 RDW Differential 51.8 H Plt Count 227 MPV 8.8 Immature Gran % (Auto) 0.500 Neut % (Auto) 68.9 Lymph % (Auto) 21.1 [place] % (Auto) 6.6 Eos % (Auto) 2.6 Baso % (Auto) 0.3 Absolute Neuts (auto) 4.5 Absolute Lymphs (auto) 1.37 Total Counted Not Reportable Sodium 136 Potassium 4.2 Chloride 96 L Carbon Dioxide 33.0 H Anion Gap 7 BUN 14 Creatinine 0.80 Estim Creat Clear Calc 83.01 Est GFR (MDRD) Af Amer 124 Est GFR (MDRD) Non-Af 102 BUN/Creatinine Ratio 17.5 Glucose 84 Calcium 8.9 Diagnostic Data Chest X-Ray 06/10/18 16:15 IMPRESSION: 1. Successful evacuation of the left pneumothorax following placement of left chest tube. 2. There is incomplete reaeration of the left lung base. Small left pleural effusion not excluded. Electronically Signed: Dewayne Perez MD at 16:55 EDT , Service support , Assessment/Plan All Active Problems (Last Reviewed 05/27/18 @ 10:31 by Cheryl Schaeffer NP-Leonel) Shortness of breath (Acute) Lung nodule (Acute) Left ventricular thrombus (Acute) Laceration of right elbow without complication (Acute) Abrasion of skin (Acute) Hx of colonoscopy (Resolved) Diverticula of colon (Acute) SOB (shortness of breath) (Acute) Acute respiratory failure with hypoxia (Resolved) Acute on chronic respiratory failure with hypoxia (Resolved) COPD with acute exacerbation (Resolved) CAP (community acquired pneumonia) (Resolved) Chronic respiratory failure with hypoxia and hypercapnia (Resolved) [age]-year-old male presenting with complaint of worsening shortness of breath for 1 day 1. Iatrogenic left sided massive pneumothorax Had left lung biopsy a few days ago and had a small pneumothorax was subsequently worsened after he was inadvertently told to continue using his trilogy. CXR on admission showed large left pneumothorax chest tube inserted in ED Admit to [facility] [place] with telemetry. Allergy consulted to manage chest tube. Patient currently on 6 L of oxygen via nonrebreather mask. To continue. Patient not to use trilogy during admission. 2. Chronic respiratory failure due to COPD on breathing treatments with albuterol, TUdorza and budesonide-formoterol. Not to use trilogy during this admission. Pulmonology consult on account of chest tube. 3. HFrEF: Lasix 40 mg twice daily. Will continue. Also on carvedilol and losartaN 4. CAD: on statin, aspirin and carvedilol 5. Psoriasis and psoriatic arthritis: on hydroxychloroquine and prednisone 6. Anemia: Hb is 9.3. Is a microcytic hypochromic anemia. To follow-up with PCP on outpatient basis. 7. Thyroidism: On Synthroid 25 mg daily. 8. ?DVT: on coumadin 5mg daily. Unsure why. WIll check INR. Hold coumadin o/a of chest tube insertion. 9.Hypertension: on losartan and carvedilol. 10. History of falls with multiple rib fracture: tyelenol for pain. fall precautions. DVT prophylaxis: SCDs GI prophylaxis: Omeprazole CODE STATUS: Patient and counseled extensively about different between full code, DNR CCA and DNR CCA. Patient elects to be full code. Total [id number] time 18 minutes. Code Visit Inpatient E&M: 66711 Init Hosp L3 Procedures: 83365 Advncd Care Plan 30 Min
[2018-06-10] MEDS: Cefazolin 1 GM/50 ML BAG IV (16:52)
--- NOTE | 2018-06-10 16:54 | HP.PCM_ITS ---
Problem List (1) Shortness of breath Status: Acute History of Present Illness Date of Admission: 06/10/18 Chief Complaint: shortness of breath The patient is a 67 year old M with a history of COPD, hypertension and pulmonary nodule. He was admitted to the ED on 06/10/2018 with a complaint of worsening shortness of breath. Patient had a lung biopsy of left pulmonary nodule a few days ago. He subsequently had a small left sided pneumothorax after the procedure. He uses trilogy at home for COPD. 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 He was told not to use the trilogy on account of the pneumothorax and was told that he would receive a call subsequently to tell him whether he should use it or not. However, next day according to patient's , nurse from radiology department called patient and told him that he could use the trilogy. Patient therefore started using trilogy. They noted this morning that his shortness of breath that acutely worsened. He did not have any associated chest pain though he had bilateral flank pain from bilateral rib fractures which she sustained in a fall about a week ago. He denied any palpitations, lightheadedness or dizziness, abdominal pain, diarrhea vomiting. He came into the ED a chest x-ray showed that the left-sided pneumothorax had significantly enlarged. He had a chest tube placed in the ED and has been admitted to be managed for traumatic pneumothorax. [] Past Medical History Past Medical History (Chronic Problems): Chronic Problems (Last Reviewed 05/27/18 @ 10:31 by Cheryl Schaeffer, WILLIE-C) Implantable cardioverter-defibrillator (ICD) in situ (Chronic 12/27/16) [employer] Dynogen EL ICD, model D150; Seriao # [id number] Secondary pulmonary arterial hypertension (Chronic) Nonischemic cardiomyopathy (Chronic) EF 15-20% per heart cath 08/29/2016; 20-35% per echo 12/17/2016 Severe left ventricular systolic dysfunction (Chronic) EF 15-20% per heart cath 08/29/2016; 20-35% per echo 12/17/2016 History of left heart catheterization (Chronic) Mild, nonobstructive CAD per [facility] 08/29/2016 @ [facility] per Dr. Cantrell Atherosclerotic heart disease of [place] coronary artery without angina pectoris (Chronic) Mild, nonobstructive CAD per [facility] 08/29/2016 @ [facility] per Dr. 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) Psoriatic arthritis (Chronic) Acne cystica (Chronic) CHF (congestive heart failure), NYHA class I (Chronic) Pulmonary hypertension (Chronic) RVSP 47mm hg per echo 08/28/2016 (unable to estimate per Echo 12/17/2016) Medical History: Medical History (Last Reviewed 05/27/18 @ 10:31 by VICKIE Olivo) Left ventricular thrombus (Acute) I51.3 Nonischemic cardiomyopathy (Chronic) I42.8 EF 15-20% per heart cath 08/29/2016; 20-35% per echo 12/17/2016 Severe left ventricular systolic dysfunction (Chronic) I51.9 EF 15-20% per heart cath 08/29/2016; 20-35% per echo 12/17/2016 Atherosclerotic heart disease of [place] coronary artery without angina pectoris (Chronic) I25.10 Mild, nonobstructive CAD per [facility] 08/29/2016 @ [facility] per Dr. 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) Z79.01 Acute on chronic respiratory failure with hypoxia (Resolved) J96.21 Psoriatic arthritis (Chronic) L40.50 CHF (congestive heart failure), NYHA class I (Chronic) I50.9 Pulmonary hypertension (Chronic) I27.2 RVSP 47mm hg per echo 08/28/2016 (unable to estimate per Echo 12/17/2016) CAP (community acquired pneumonia) (Resolved) J18.9 Chronic respiratory failure with hypoxia and hypercapnia (Resolved) J96.11, J96.12 Allergies No Known Allergies Allergy (Verified 06/10/18 13:59) Home Medications: Ambulatory Orders Medication Instructions Recorded Hydroxychloroquine [Plaquenil] 200 mg PO BIDCM 08/27/16 Multivitamin [Multiple Vitamins] 1 ea PO DAILY 08/27/16 Omeprazole Magnesium 40 mg PO DAILY 08/27/16 aspirin 81 mg chewable tablet 81 mg PO .QOD tab 10/15/17 carvedilol 6.25 mg tablet 6.25 mg PO BID 10/15/17 cholecalciferol (vitamin D3) 2,000 1,000 unit PO BID cap 10/15/17 unit capsule fluticasone 50 mcg/actuation nasal 2 spray INTRANASAL BID PRN PRN g 10/15/17 spray,suspension levothyroxine 25 mcg capsule 25 mcg PO DAILY cap 10/15/17 losartan 50 mg tablet 50 mg PO DAILY 10/15/17 warfarin 5 mg tablet 5 mg PO .COMPLEX tab 02/09/18 albuterol sulfate 2.5 mg/3 mL 2.5 mg INHALATION Q6HWA.RT #180 03/03/18 (0.083 %) solution for nebulization vial albuterol sulfate HFA 90 2 puff INHALATION Q4H PRN PRN #18 g 03/30/18 mcg/actuation aerosol inhaler Albuterol IH (ProAir) [Proair Hfa 1 puff INHALATION Q4H PRN PRN 06/10/18 (SP)Vent Pts] Atorvastatin Calcium [Lipitor] 40 mg PO QHS 06/10/18 Budesonide/Formoterol 160/4.5 2 puff INHALATION BID 06/10/18 [Symbicort 160/4.5 Mcg Inhaler (SP)] Furosemide [Lasix] 40 mg PO BID 06/10/18 Tiotropium [place] [Spiriva] 2 puff IH DAILY 06/10/18 Surgical History: Surgical History (Last Reviewed 05/27/18 @ 10:31 by Cheryl Schaeffer NP-C) Implantable cardioverter-defibrillator (ICD) in situ (Chronic) Onset Date: 12/27/16 Z95.810 [employer] Dynogen EL ICD, model D150; Seriao # [id number] History of left heart catheterization (Chronic) Z98.890 Mild, nonobstructive CAD per [facility] 08/29/2016 @ [facility] per Dr. Cantrell Surgical History: no surgical history, - Lives: Spouse/ Significant Other Smoking Status: Former smoker Tobacco Use: Cigarettes - quit 10 years ago - *Family History Maternal Family History: Family History (Last Reviewed 05/27/18 @ 10:31 by VICKIE Olivo) Mother Heart disease Brother CVA (cerebral vascular accident) Father Cancer Grandmother Diabetes History Items: - - No COPD Paternal Family History: Family History (Last Reviewed 05/27/18 @ 10:31 by VICKIE Olivo) Mother Heart disease Brother CVA (cerebral vascular accident) Father Cancer Grandmother Diabetes History Items: - - No COPD Review of Systems Constitutional: Denies: Chills, Fever, Malaise, Weight Change Eyes: Denies: Blurred vision HEENT: Denies: Head Aches, Sinus Congestion, Sinus Drainage Cardiovascular: Denies: Chest Pain, Chest Pressure, Chest Tightness, Palpitations, Paroxysmal Noc. Dyspnea Respiratory: Reports: Shortness of Breath, Shortness of breath at rest, Shortness of breath upon exertion. Denies: Cough, Pleuritic Pain, Sputum production, Wheezing Gastrointestinal: Denies: Abdominal Pain, Nausea, Vomiting Genitourinary: Denies: Dysuria Musculoskeletal: Denies: Joint Pain, Joint Tenderness Skin: Denies: Rash, Wounds Neurological: Denies: Numbness, Tingling, Focal weakness Psychiatric: Denies: Anxiety, Depression, Homicidal Ideations, Suicidal Ideations Hematologic/ Lymphatic: Denies: Easy Bruising, Easy Bleeding VTE Information - Inpt Only VTE Present on Admission: No VTE Pharm Prophylaxis ordered?: Yes Patient Problems: Active and Suspected Problems (Last Reviewed 05/27/18 @ 10:31 by VICKIE Olivo) Shortness of breath (Acute) - Physical Exam General: Alert, Oriented x3, Cooperative, - - visibly short of breath; on nonre breather mask on 6L of oxygen HEENT: Atraumatic, PERRLA, EOMI, Normocephalic Oral: Moist Mucosa Neck: Supple, No JVD, Negative Carotid Bruits Lungs: - - absent breath sounds in left upper and lower lung booker. Mildly decreased breath sounds in right upper, mid and lower lung booker. on 6L of oxygen by nonrebreather mask; using accessory muscles of respiration. Chest tube in left side of chest. Cardiovascular: Regular rate, Regular Rhythm, Normal S1, Normal S2, No murmurs Abdomen: Bowel Sounds Present, Soft, Non Tender, No Hepato-splenomegaly, Obese Extremities: No clubbing, No cyanosis, No edema, Capillary Refill Less than 3 Seconds Skin: No rashes, No breakdown, - - ecchymotic bruising over left and right flanks. Chest tube dressing over left side of chest. Musculoskeletal: No Tenderness to Palpation of Joints or Extremities Lymphatic: No Cervical, Supraclavicular, or Inguinal Adenopathy Neurological: Cranial nerves II-XII grossly intact, Neuro grossly intact, Motor Exam 5/5 strength throughout Psych/Mental Status: Normal Affect, Appropriate, Alert and oriented to time, place, person, mood and affect Vital Signs Temp Pulse Resp BP Pulse Ox 97.8 F 94 16 154/75 H 100 06/10/18 13:56 06/10/18 16:18 06/10/18 16:18 06/10/18 16:18 06/10/18 16:18 Oxygen Flow Rate (L/min) 15 Oxygen Delivery Method Non-Rebreather Weight: 144 lb 6.4 oz Body Mass Index (BMI) 22.6 Finger Stick Blood Glucose 126 Laboratory Tests Past 24 Hrs 06/10/18 06/10/18 15:59 15:59 WBC 6.5 RBC 2.93 L Hgb 9.3 L Hct 29.4 L MCV 100.3 H MCH 31.7 MCHC 31.6 L RDW 14.2 RDW Differential 51.8 H Plt Count 227 MPV 8.8 Immature Gran % (Auto) 0.500 Neut % (Auto) 68.9 Lymph % (Auto) 21.1 Davis % (Auto) 6.6 Eos % (Auto) 2.6 Baso % (Auto) 0.3 Absolute Neuts (auto) 4.5 Absolute Lymphs (auto) 1.37 Total Counted Not Reportable Sodium 136 Potassium 4.2 Chloride 96 L Carbon Dioxide 33.0 H Anion Gap 7 BUN 14 Creatinine 0.80 Estim Creat Clear Calc 83.01 Est GFR (MDRD) Af Amer 124 Est GFR (MDRD) Non-Af 102 BUN/Creatinine Ratio 17.5 Glucose 84 Calcium 8.9 Diagnostic Data Chest X-Ray 06/10/18 16:15 IMPRESSION: 1. Successful evacuation of the left pneumothorax following placement of left chest tube. 2. There is incomplete reaeration of the left lung base. Small left pleural effusion not excluded. Electronically Signed: Dewayne Perez MD at 16:55 EDT , Service support , Assessment/Plan All Active Problems (Last Reviewed 05/27/18 @ 10:31 by Cheryl Schaeffer NP-Leonel) Shortness of breath (Acute) Lung nodule (Acute) Left ventricular thrombus (Acute) Laceration of right elbow without complication (Acute) Abrasion of skin (Acute) Hx of colonoscopy (Resolved) Diverticula of colon (Acute) SOB (shortness of breath) (Acute) Acute respiratory failure with hypoxia (Resolved) Acute on chronic respiratory failure with hypoxia (Resolved) COPD with acute exacerbation (Resolved) CAP (community acquired pneumonia) (Resolved) Chronic respiratory failure with hypoxia and hypercapnia (Resolved) [age]-year-old male presenting with complaint of worsening shortness of breath for 1 day 1. Iatrogenic left sided massive pneumothorax * Had left lung biopsy a few days ago and had a small pneumothorax was subsequently worsened after he was inadvertently told to continue using his trilogy. * CXR on admission showed large left pneumothorax * chest tube inserted in ED * Admit to [facility] with telemetry. * Allergy consulted to manage chest tube. * Patient currently on 6 L of oxygen via nonrebreather mask. To continue. * Patient not to use trilogy during admission. * 2. Chronic respiratory failure due to COPD * on breathing treatments with albuterol, TUdorza and budesonide-formoterol. * Not to use trilogy during this admission. * Pulmonology consult on account of chest tube. * 3. HFrEF: Lasix 40 mg twice daily. Will continue. Also on carvedilol and losartaN * 4. CAD: on statin, aspirin and carvedilol 5. Psoriasis and psoriatic arthritis: on hydroxychloroquine and prednisone 6. Anemia: Hb is 9.3. Is a microcytic hypochromic anemia. To follow-up with PCP on outpatient basis. 7. Thyroidism: On Synthroid 25 mg daily. 8. ?DVT: on coumadin 5mg daily. Unsure why. WIll check INR. Hold coumadin o/a of chest tube insertion. 9.Hypertension: on losartan and carvedilol. 10. History of falls with multiple rib fracture: tyelenol for pain. fall precautions. DVT prophylaxis: SCDs GI prophylaxis: Omeprazole CODE STATUS: Patient and counseled extensively about different between full code, DNR CCA and DNR CCA. Patient elects to be full code. Total [id number] time 18 minutes. Code Visit Inpatient E&M: 20209 Init Hosp L3 Procedures: 39963 Advncd Care Plan 30 Min
[2018-06-10] MEDS: Acetaminophen 325 MG Tablet 650 MG PO (18:48)
[2018-06-10] MEDS: 0.9% NaCl Peripheral Flush Adult/Peds IV ×2 (18:48→23:12)
[2018-06-10] MEDS: Morphine 2 MG/ML Syringe 1 MG IV ×2 (18:49→23:11)
[2018-06-10 19:39] LABS: International Normalized Ratio 1.2; Prothrombin Time (Protime)PT. 14.7 SECONDS (11.7-14.9)
[2018-06-10] MEDS: Atorvastatin Calcium 40 MG Tablet PO (23:12)
[2018-06-10] MEDS: Carvedilol 6.25 MG Tablet PO (23:13)
[2018-06-11] VITALS (17 sets, daily range): BP systolic 79–131; BP diastolic 47–64; PULSE 84–103; RESP 14–24; TEMP 36.4–37.1; O2SAT 94–103
--- NOTE | 2018-06-11 05:00 | RAD_ITS ---
STUDY: X-RAY CHEST REASON FOR EXAM: Male, 67 years old. Left-sided pneumothorax. TECHNIQUE: Single AP portable view of the chest. COMPARISON: Comparison is made with prior study dated June 10, 2018 at 4:16 PM. FINDINGS: A large bore chest tube is in the left hemithorax with the tip in the superior medial aspect. The left-sided pneumothorax has resolved. There is evidence of a subcutaneous emphysema overlying the left chest wall. Small right pleural effusion with right basilar atelectasis and/or infiltrate is seen at this time. Minimal atelectasis is seen at the left lung base. A left-sided unipolar pacemaker is present. Normal mediastinum and carina. Normal visualized pulmonary arteries. There is atherosclerotic calcification of the aortic arch with tortuosity. Normal visualized thoracic spine. Normal visualized ribs, clavicles, and shoulders. There is no demonstrated abnormality of the visualized soft tissue structures of the upper abdomen. RAD/Chest 1 View (Portable) IMPRESSION: Left-sided chest tube. No evidence of pneumothorax. Left subcutaneous emphysema of the chest wall. New small right pleural effusion with underlying infiltration and/or atelectasis. Electronically Signed: Sebastien Zheng MD at 8:25 EDT Tel [phone], Service support ,
[2018-06-11] MEDS: Levothyroxine 25 MCG TABLET PO (05:36)
[2018-06-11] MEDS: Morphine 2 MG/ML Syringe 1 MG IV (05:39)
[2018-06-11] MEDS: 0.9% NaCl Peripheral Flush Adult/Peds IV (05:40)
[2018-06-11 06:48] LABS: Absolute Lymphocyte Count 1.14 X10^3/ul (0.83-4.51); Absolute Neutrophil Count 8.3 X10^3/uL (2.0-7.7); Basophil# 0.02 X10^3/uL; Basophil% 0.2 % (0-1); Eosinophil# 0.14 X10^3/uL; Eosinophils% 1.4 % (0-5); Hematocrit 30.3 % (40-54); Hemoglobin 9.3 g/dl (13.0-16.5); Lymphocyte # 1.14 X10^3/ul (4.0); Lymphocyte % 11.5 % (19-41); Mean Corp Hgb Conc 30.7 g/gl (32-36); Mean Corpuscular Hgb 31.7 pg (27.0-32.0); Mean Corpuscular Volume 103.4 fL (80-94); Mean Platelet Vol. 9.1 fl (6.2-12.0); Monocyte# 0.26 X10^3/uL; Monocyte% 2.6 % (0-10); Neutrophil # 8.26 X10^3/uL (2.7-7.7); Neutrophil % 83.5 % (47-70); Platelet Count 240 K/mm3 (150-450); RBC Distribution Width CV 14.5 % (11.6-14.6); RBC Distribution Width SD 54.8 fl (35.1-43.9); Red Blood Count 2.93 M/mm3 (4.6-6.2); White Blood Count 9.9 K/mm3 (4.4-11.0)
[2018-06-11 06:49] LABS: International Normalized Ratio 1.2; Prothrombin Time (Protime)PT. 14.8 SECONDS (11.7-14.9)
[2018-06-11 06:52] LABS: POSITIVE COUNT NO; POSITIVE DIFFERENTIAL NO; POSITIVE MORPHOLOGY NO
[2018-06-11 06:54] LABS: Anion Gap 3 (5-15); BUN 14 mg/dL (7-18); BUN/Creat Ratio 20.9 RATIO (10-20); Calcium,Total 8.8 mg/dL (8.5-10.1); Chloride 98 mmol/L (98-107); Creatinine, Serum 0.67 mg/dL (0.70-1.30); EST Glomerular Filtration Rate 126 mL/min (>60); Est Glom Filt Rate - Afr Amer 152 mL/min (>60); Estimated Creatinine Clearance 64.69 ml/min; Glucose 94 mg/dL (74-106); Potassium 4.7 mmol/L (3.5-5.1); Sodium Level 138 mmol/L (136-145)
--- NOTE | 2018-06-11 07:00 | PCM.CONS.GEN ---
Reason for Consult Date of Consultation: 06/11/18 Reason for Consultation: Iatrogenic pneumothorax History of Present Illness: The patient is a 67-year-old male, with a history as outlined below, who presented to the emergency department at the urging of the pulmonary medicine clinic on June 11 with worsening shortness of breath. The patient has known stage III COPD, for which she is followed by Dr. Rodríguez on an outpatient basis. The patient has a known underlying pulmonary nodule, for which he underwent a CT-guided lung biopsy on June 08. The patient did sustain an iatrogenic pneumothorax as a consequence of that procedure. However, the patient was discharged home. I did advise the patient on the evening after his procedure not to utilize his trilogy home noninvasive ventilator over concerns that the pneumothorax would worsen. The patient then contacted the pulmonary medicine office yesterday with complaints of worsening shortness of breath. He was subsequently referred to the emergency department, at which time, radiographic imaging did confirm the presence of a moderate sized left-sided pneumothorax, for which the patient underwent tube thoracotomy. He was maintained on wall suction overnight with interval resolution of the previously noted pneumothorax on repeat chest imaging this morning. CT of the chest completed on May 13, 2018 from the emergency department status post fall down several stairs showed multiple nondisplaced hairline fractures of the right anterior ribs (fourth, fifth, sixth, seventh and eighth ribs) also showed no acute airspace disease or pneumothorax. Newly noted was a suspicious spiculated left upper lobe nodule measuring 1.3 x 1.1 cm. 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 Past Medical History Past Medical History (Chronic Problems): Chronic Problems (Last Reviewed 05/27/18 @ 10:31 by Cheryl Schaeffer, WILLIE-C) Implantable cardioverter-defibrillator (ICD) in situ (Chronic 12/27/16) [employer] Dynogen EL ICD, model D150; Seriao # [id number] Secondary pulmonary arterial hypertension (Chronic) Nonischemic cardiomyopathy (Chronic) EF 15-20% per heart cath 08/29/2016; 20-35% per echo 12/17/2016 Severe left ventricular systolic dysfunction (Chronic) EF 15-20% per heart cath 08/29/2016; 20-35% per echo 12/17/2016 History of left heart catheterization (Chronic) Mild, nonobstructive CAD per [facility] 08/29/2016 @ [facility] per Dr. Cantrell Atherosclerotic heart disease of [place] coronary artery without angina pectoris (Chronic) Mild, nonobstructive CAD per [facility] 08/29/2016 @ [facility] per Dr. 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) Psoriatic arthritis (Chronic) Acne cystica (Chronic) CHF (congestive heart failure), NYHA class I (Chronic) Pulmonary hypertension (Chronic) RVSP 47mm hg per echo 08/28/2016 (unable to estimate per Echo 12/17/2016) Medical History: Medical History (Last Reviewed 05/27/18 @ 10:31 by Cheryl Schaeffer, FINE SANDER-C) Left ventricular thrombus (Acute) I51.3 Nonischemic cardiomyopathy (Chronic) I42.8 EF 15-20% per heart cath 08/29/2016; 20-35% per echo 12/17/2016 Severe left ventricular systolic dysfunction (Chronic) I51.9 EF 15-20% per heart cath 08/29/2016; 20-35% per echo 12/17/2016 Atherosclerotic heart disease of [place] coronary artery without angina pectoris (Chronic) I25.10 Mild, nonobstructive CAD per [facility] 08/29/2016 @ [facility] per Dr. 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) Z79.01 Acute on chronic respiratory failure with hypoxia (Resolved) J96.21 Psoriatic arthritis (Chronic) L40.50 CHF (congestive heart failure), NYHA class I (Chronic) I50.9 Pulmonary hypertension (Chronic) I27.2 RVSP 47mm hg per echo 08/28/2016 (unable to estimate per Echo 12/17/2016) CAP (community acquired pneumonia) (Resolved) J18.9 Chronic respiratory failure with hypoxia and hypercapnia (Resolved) J96.11, J96.12 Allergies No Known Allergies Allergy (Verified 06/10/18 13:59) Home Medications: Ambulatory Orders Medication Instructions Recorded Hydroxychloroquine [Plaquenil] 200 mg PO BIDCM 08/27/16 Multivitamin [Multiple Vitamins] 1 ea PO DAILY 08/27/16 Omeprazole Magnesium 40 mg PO DAILY 08/27/16 aspirin 81 mg chewable tablet 81 mg PO .QOD tab 10/15/17 carvedilol 6.25 mg tablet 6.25 mg PO BID 10/15/17 cholecalciferol (vitamin D3) 2,000 1,000 unit PO BID cap 10/15/17 unit capsule fluticasone 50 mcg/actuation nasal 2 spray INTRANASAL BID PRN PRN g 10/15/17 spray,suspension levothyroxine 25 mcg capsule 25 mcg PO DAILY cap 10/15/17 losartan 50 mg tablet 50 mg PO DAILY 10/15/17 warfarin 5 mg tablet 5 mg PO .COMPLEX tab 02/09/18 albuterol sulfate 2.5 mg/3 mL 2.5 mg INHALATION Q6HWA.RT #180 03/03/18 (0.083 %) solution for nebulization vial albuterol sulfate HFA 90 2 puff INHALATION Q4H PRN PRN #18 g 03/30/18 mcg/actuation aerosol inhaler Albuterol IH (ProAir) [Proair Hfa] 1 puff INHALATION Q4H PRN PRN 06/10/18 Atorvastatin Calcium [Lipitor] 40 mg PO QHS 06/10/18 Budesonide/Formoterol 160/4.5 2 puff INHALATION BID 06/10/18 [Symbicort 160/4.5 Mcg Inhaler (SP)] Furosemide [Lasix] 40 mg PO BID 06/10/[address] [Spiriva] 2 puff IH DAILY 06/10/18 Surgical History: Surgical History (Last Reviewed 05/27/18 @ 10:31 by Cheryl Schaeffer NP-C) Implantable cardioverter-defibrillator (ICD) in situ (Chronic) Onset Date: 12/27/16 Z95.810 [employer] Dynogen EL ICD, model D150; Seriao # [id number] History of left heart catheterization (Chronic) Z98.890 Mild, nonobstructive CAD per [facility] 08/29/2016 @ [facility] per Dr. Cantrell Surgical History: no surgical history, - Lives: Spouse/ Significant Other Smoking Status: Former smoker Tobacco Use: Cigarettes - quit 10 years ago - *Family History Maternal Family History: Family History (Last Reviewed 05/27/18 @ 10:31 by VICKIE Olivo) Mother Heart disease Brother CVA (cerebral vascular accident) Father Cancer Grandmother Diabetes History Items: - - No COPD Paternal Family History: Family History (Last Reviewed 05/27/18 @ 10:31 by VICKIE Olivo) Mother Heart disease Brother CVA (cerebral vascular accident) Father Cancer Grandmother Diabetes History Items: - - No COPD Review of Systems Constitutional: Denies: Chills, Fever, Night Sweats Eyes: Denies: Blurred vision, Double vision HEENT: Denies: Head Aches, Sinus Congestion, Sinus Drainage Cardiovascular: Reports: Chest Pain Respiratory: Reports: Shortness of Breath Gastrointestinal: Denies: Abdominal Pain, Nausea, Vomiting Genitourinary: Denies: Dysuria Musculoskeletal: Denies: Joint Pain, Joint Tenderness Skin: Denies: Rash, Wounds Neurological: Denies: Numbness, Tingling, Focal weakness Psychiatric: Denies: Anxiety, Depression, Homicidal Ideations, Suicidal Ideations Hematologic/ Lymphatic: Denies: Easy Bruising, Easy Bleeding Patient Problems: Active and Suspected Problems (Last Reviewed 05/27/18 @ 10:31 by VICKIE Olivo) Pneumothorax after biopsy (Acute) Shortness of breath (Acute) Objective: The patient's most recent lab work, culture data and imaging studies have all been personally reviewed. - Physical Exam General: Alert, Cooperative, No apparent distress HEENT: Atraumatic, PERRLA, Normocephalic Oral: No Gingival or Mucosal Lesions/ Ulcerations Neck: Supple, No Nodes, Trachea Midline Lungs: - - Globally diminished air movement throughout all lung booker. Left-sided chest tube in place. No air leak noted in the atrium. Cardiovascular: Regular rate, Regular Rhythm, Normal S1, Normal S2, No murmurs Abdomen: Bowel Sounds Present, Soft, Non Tender, Non-Distended Extremities: No clubbing, No cyanosis, No edema Skin: No breakdown Musculoskeletal: No Tenderness to Palpation of Joints or Extremities, No Muscle Wasting Lymphatic: No Cervical, Supraclavicular, or Inguinal Adenopathy Neurological: Cranial nerves II-XII grossly intact, Neuro grossly intact Psych/Mental Status: Alert and oriented to time, place, person, mood and affect Vital Signs Temp Pulse Resp BP Pulse Ox 97.9 F 88 20 H 131/52 H 97 06/11/18 04:00 06/11/18 04:00 06/11/18 04:00 06/11/18 04:00 06/11/18 04:00 Oxygen Flow Rate (L/min) 5 Oxygen Delivery Method Nasal Cannula Weight: 144 lb 6.444 oz Body Mass Index (BMI) 22.6 Finger Stick Blood Glucose 126 Intake and Output for Last 24 Hours 06/09/18 06/10/18 06/11/18 23:59 23:59 23:59 Intake Total 300 / 300 Output Total 310 / 310 Balance - Laboratory Tests Past 24 Hrs 06/10/18 06/10/18 06/10/18 15:59 15:59 19:02 WBC 6.5 RBC 2.93 L Hgb 9.3 L Hct 29.4 L MCV 100.3 H MCH 31.7 MCHC 31.6 L RDW 14.2 RDW Differential 51.8 H Plt Count 227 MPV 8.8 Immature Gran % (Auto) 0.500 Neut % (Auto) 68.9 Lymph % (Auto) 21.1 Stevens % (Auto) 6.6 Eos % (Auto) 2.6 Baso % (Auto) 0.3 Absolute Neuts (auto) 4.5 Absolute Lymphs (auto) 1.37 Total Counted Not Reportable PT 14.7 INR 1.2 Sodium 136 Potassium 4.2 Chloride 96 L Carbon Dioxide 33.0 H Anion Gap 7 BUN 14 Creatinine 0.80 Estim Creat Clear Calc 83.01 Est GFR (MDRD) Af Amer 124 Est GFR (MDRD) Non-Af 102 BUN/Creatinine Ratio 17.5 Glucose 84 Calcium 8.9 06/11/18 06/11/18 06/11/18 05:54 05:54 05:54 WBC 9.9 RBC 2.93 L Hgb 9.3 L Hct 30.3 L MCV 103.4 H MCH 31.7 MCHC 30.7 L RDW 14.5 RDW Differential 54.8 H Plt Count 240 MPV 9.1 Immature Gran % (Auto) 0.800 Neut % (Auto) 83.5 H Lymph % (Auto) 11.5 L Stevens % (Auto) 2.6 Eos % (Auto) 1.4 Baso % (Auto) 0.2 Absolute Neuts (auto) 8.3 H Absolute Lymphs (auto) 1.14 Total Counted Not Reportable PT 14.8 INR 1.2 Sodium 138 Potassium 4.7 Chloride 98 Carbon Dioxide 37.0 H Anion Gap 3 L BUN 14 Creatinine 0.67 L Estim Creat Clear Calc 64.69 Est GFR (MDRD) Af Amer 152 Est GFR (MDRD) Non-Af 126 BUN/Creatinine Ratio 20.9 H Glucose 94 Calcium 8.8 Clinical Impression(s) from Imaging Studies Chest X-Ray 06/10/18 14:43 IMPRESSION: Large left pneumothorax. This has progressed as compared to prior study. Atelectasis in the posterior medial segment of the left lower lobe. Electronically Signed: Sebastien Zheng MD at 15:03 EDT Tel [phone], Service support , Chest X-Ray 06/10/18 16:15 IMPRESSION: 1. Successful evacuation of the left pneumothorax following placement of left chest tube. 2. There is incomplete reaeration of the left lung base. Small left pleural effusion not excluded. Electronically Signed: Dewayne Perez MD at 16:55 EDT , Service support , Assessment/Plan All Active Problems (Last Reviewed 05/27/18 @ 10:31 by Cheryl Schaeffer, WILLIE-C) Pneumothorax after biopsy (Acute) Shortness of breath (Acute) Lung nodule (Acute) Left ventricular thrombus (Acute) Laceration of right elbow without complication (Acute) Abrasion of skin (Acute) Hx of colonoscopy (Resolved) Diverticula of colon (Acute) SOB (shortness of breath) (Acute) Acute respiratory failure with hypoxia (Resolved) Acute on chronic respiratory failure with hypoxia (Resolved) COPD with acute exacerbation (Resolved) CAP (community acquired pneumonia) (Resolved) Chronic respiratory failure with hypoxia and hypercapnia (Resolved) RECOMMENDATIONS: 1. Remove patient from continuous wall suction and place chest tube to waterseal. 2. Obtain repeat plain film chest x-ray in approximate 3 hours. 3. Maintain patient on supplemental oxygen. 4. Continue bronchodilators. IMPRESSIONS: 1. Iatrogenic pneumothorax following CT-guided lung biopsy The patient is now status post tube thoracotomy with interval resolution of the previously noted pneumothorax. The patient was transitioned from continuous wall suction to waterseal early this morning. A follow-up plain film chest x-ray revealed no recurrence of the patient's pneumothorax with a chest tube on waterseal. Therefore, the chest tube was subsequently removed. One suture was left in place, given the size of the incision made to facilitate chest tube placement. The suture can be removed at his follow-up office visit in the pulmonary medicine clinic next week. Would plan to monitor the patient for 2-3 hours post chest tube removal, after which time one last x-ray will be obtained. If no recurrence of the pneumothorax is noted, the patient can be discharged home from my perspective. The patient is currently scheduled to follow-up in the pulmonary medicine clinic with our nurse practitioner at 12:45 PM on Thursday the . Please place order for outpatient chest x-ray to be obtained prior to his follow-up office visit. The patient has been advised to refrain from utilizing his home trilogy noninvasive ventilator for the foreseeable future. 2. Newly diagnosed non-small cell carcinoma The patient has newly diagnosed squamous cell carcinoma following CT-guided lung biopsy. I personally discussed the test results with both the patient and his at the bedside. They are going to take some time to consider where they would like to go for their oncologic follow-up/care. Arrangements can be made by our nurse practitioner upon his follow-up office visit. 3. Advanced age COPD without exacerbation/chronic hypoxemic respiratory failure Continue scheduled aerosol treatments as ordered. Continue supplemental oxygen. Patient appears to have a baseline 3 L/min supplemental oxygen requirement with exertion. This note was generated with [employer] dictation software. It may contain incorrect words, spelling, and punctuation that were not noted in checking the note before signing. Code Visit Inpatient E&M: 77940 Init Hosp L3
--- NOTE | 2018-06-11 07:07 | CON.PCM_ITS ---
Reason for Consult Date of Consultation: 06/11/18 Reason for Consultation: Iatrogenic pneumothorax History of Present Illness: The patient is a 67-year-old male, with a history as outlined below, who presented to the emergency department at the urging of the pulmonary medicine clinic on June 11 with worsening shortness of breath. The patient has known stage III COPD, for which she is followed by Dr. Rodríguez on an outpatient basis. The patient has a known underlying pulmonary nodule, for which he underwent a CT-guided lung biopsy on June 08. The patient did sustain an iatrogenic pneumothorax as a consequence of that procedure. However, the patient was discharged home. I did advise the patient on the evening after his procedure not to utilize his trilogy home noninvasive ventilator over concerns that the pneumothorax would worsen. The patient then contacted the pulmonary medicine office yesterday with complaints of worsening shortness of breath. He was subsequently referred to the emergency department, at which time, radiographic imaging did confirm the presence of a moderate sized left-sided pneumothorax, for which the patient underwent tube thoracotomy. He was maintained on wall suction overnight with interval resolution of the previously noted pneumothorax on repeat chest imaging this morning. CT of the chest completed on May 13, 2018 from the emergency department status post fall down several stairs showed multiple nondisplaced hairline fractures of the right anterior ribs (fourth, fifth, sixth, seventh and eighth ribs) also showed no acute airspace disease or pneumothorax. Newly noted was a suspicious spiculated left upper lobe nodule measuring 1.3 x 1.1 cm. 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 Past Medical History Past Medical History (Chronic Problems): Chronic Problems (Last Reviewed 05/27/18 @ 10:31 by Cheryl Schaeffer, WILLIE-C) Implantable cardioverter-defibrillator (ICD) in situ (Chronic 12/27/16) [employer] Dynogen EL ICD, model D150; Seriao # [id number] Secondary pulmonary arterial hypertension (Chronic) Nonischemic cardiomyopathy (Chronic) EF 15-20% per heart cath 08/29/2016; 20-35% per echo 12/17/2016 Severe left ventricular systolic dysfunction (Chronic) EF 15-20% per heart cath 08/29/2016; 20-35% per echo 12/17/2016 History of left heart catheterization (Chronic) Mild, nonobstructive CAD per [facility] 08/29/2016 @ [facility] per Dr. Cantrell Atherosclerotic heart disease of [place] coronary artery without angina pectoris (Chronic) Mild, nonobstructive CAD per [facility] 08/29/2016 @ [facility] per Dr. Cantrell PVD (peripheral vascular disease) (Chronic) Long-term use of high-risk medication (Chronic) Stage 3 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) FEV1 31 PND (paroxysmal nocturnal dyspnea) (Chronic) Hyperlipidemia (Chronic) care home current use of anticoagulant (Chronic) Psoriatic arthritis (Chronic) Acne cystica (Chronic) CHF (congestive heart failure), NYHA class I (Chronic) Pulmonary hypertension (Chronic) RVSP 47mm hg per echo 08/28/2016 (unable to estimate per Echo 12/17/2016) Medical History: Medical History (Last Reviewed 05/27/18 @ 10:31 by Cheryl Schaeffer, FILTER [employer] PUMPER-C) Left ventricular thrombus (Acute) I51.3 Nonischemic cardiomyopathy (Chronic) I42.8 EF 15-20% per heart cath 08/29/2016; 20-35% per echo 12/17/2016 Severe left ventricular systolic dysfunction (Chronic) I51.9 EF 15-20% per heart cath 08/29/2016; 20-35% per echo 12/17/2016 Atherosclerotic heart disease of [place] coronary artery without angina pectoris (Chronic) I25.10 Mild, nonobstructive CAD per [facility] 08/29/2016 @ [facility] per Dr. Cantrell PVD (peripheral vascular disease) (Chronic) I73.9 Stage 3 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) J44.9 FEV1 31 PND (paroxysmal nocturnal dyspnea) (Chronic) R06.00 Hyperlipidemia (Chronic) E78.5 SOB (shortness of breath) (Acute) R06.02 care home current use of anticoagulant (Chronic) Z79.01 Acute on chronic respiratory failure with hypoxia (Resolved) J96.21 Psoriatic arthritis (Chronic) L40.50 CHF (congestive heart failure), NYHA class I (Chronic) I50.9 Pulmonary hypertension (Chronic) I27.2 RVSP 47mm hg per echo 08/28/2016 (unable to estimate per Echo 12/17/2016) CAP (community acquired pneumonia) (Resolved) J18.9 Chronic respiratory failure with hypoxia and hypercapnia (Resolved) J96.11, J96.12 Allergies No Known Allergies Allergy (Verified 06/10/18 13:59) Home Medications: Ambulatory Orders Medication Instructions Recorded Hydroxychloroquine [Plaquenil] 200 mg PO BIDCM 08/27/16 Multivitamin [Multiple Vitamins] 1 ea PO DAILY 08/27/16 Omeprazole Magnesium 40 mg PO DAILY 08/27/16 aspirin 81 mg chewable tablet 81 mg PO .QOD tab 10/15/17 carvedilol 6.25 mg tablet 6.25 mg PO BID 10/15/17 cholecalciferol (vitamin D3) 2,000 1,000 unit PO BID cap 10/15/17 unit capsule fluticasone 50 mcg/actuation nasal 2 spray INTRANASAL BID PRN PRN g 10/15/17 spray,suspension levothyroxine 25 mcg capsule 25 mcg PO DAILY cap 10/15/17 losartan 50 mg tablet 50 mg PO DAILY 10/15/17 warfarin 5 mg tablet 5 mg PO .COMPLEX tab 02/09/18 albuterol sulfate 2.5 mg/3 mL 2.5 mg INHALATION Q6HWA.RT #180 03/03/18 (0.083 %) solution for nebulization vial albuterol sulfate HFA 90 2 puff INHALATION Q4H PRN PRN #18 g 03/30/18 mcg/actuation aerosol inhaler Albuterol IH (ProAir) [Proair Hfa] 1 puff INHALATION Q4H PRN PRN 06/10/18 Atorvastatin Calcium [Lipitor] 40 mg PO QHS 06/10/18 Budesonide/Formoterol 160/4.5 2 puff INHALATION BID 06/10/18 [Symbicort 160/4.5 Mcg Inhaler (SP)] Furosemide [Lasix] 40 mg PO BID 06/10/18 Tiotropium [place] [Spiriva] 2 puff IH DAILY 06/10/18 Surgical History: Surgical History (Last Reviewed 05/27/18 @ 10:31 by Cheryl Schaeffer NP-C) Implantable cardioverter-defibrillator (ICD) in situ (Chronic) Onset Date: 12/27/16 Z95.810 [employer] Dynogen EL ICD, model D150; Seriao # [id number] History of left heart catheterization (Chronic) Z98.890 Mild, nonobstructive CAD per [facility] 08/29/2016 @ [facility] per Dr. Cantrell Surgical History: no surgical history, - Lives: Spouse/ Significant Other Smoking Status: Former smoker Tobacco Use: Cigarettes - quit 10 years ago - *Family History Maternal Family History: Family History (Last Reviewed 05/27/18 @ 10:31 by VICKIE Olivo) Mother Heart disease Brother CVA (cerebral vascular accident) Father Cancer Grandmother Diabetes History Items: - - No COPD Paternal Family History: Family History (Last Reviewed 05/27/18 @ 10:31 by VICKIE Olivo) Mother Heart disease Brother CVA (cerebral vascular accident) Father Cancer Grandmother Diabetes History Items: - - No COPD Review of Systems Constitutional: Denies: Chills, Fever, Night Sweats Eyes: Denies: Blurred vision, Double vision HEENT: Denies: Head Aches, Sinus Congestion, Sinus Drainage Cardiovascular: Reports: Chest Pain Respiratory: Reports: Shortness of Breath Gastrointestinal: Denies: Abdominal Pain, Nausea, Vomiting Genitourinary: Denies: Dysuria Musculoskeletal: Denies: Joint Pain, Joint Tenderness Skin: Denies: Rash, Wounds Neurological: Denies: Numbness, Tingling, Focal weakness Psychiatric: Denies: Anxiety, Depression, Homicidal Ideations, Suicidal Ideations Hematologic/ Lymphatic: Denies: Easy Bruising, Easy Bleeding Patient Problems: Active and Suspected Problems (Last Reviewed 05/27/18 @ 10:31 by VICKIE Olivo) Pneumothorax after biopsy (Acute) Shortness of breath (Acute) Objective: The patient's most recent lab work, culture data and imaging studies have all been personally reviewed. - Physical Exam General: Alert, Cooperative, No apparent distress HEENT: Atraumatic, PERRLA, Normocephalic Oral: No Gingival or Mucosal Lesions/ Ulcerations Neck: Supple, No Nodes, Trachea Midline Lungs: - - Globally diminished air movement throughout all lung booker. Left- sided chest tube in place. No air leak noted in the atrium. Cardiovascular: Regular rate, Regular Rhythm, Normal S1, Normal S2, No murmurs Abdomen: Bowel Sounds Present, Soft, Non Tender, Non-Distended Extremities: No clubbing, No cyanosis, No edema Skin: No breakdown Musculoskeletal: No Tenderness to Palpation of Joints or Extremities, No Muscle Wasting Lymphatic: No Cervical, Supraclavicular, or Inguinal Adenopathy Neurological: Cranial nerves II-XII grossly intact, Neuro grossly intact Psych/Mental Status: Alert and oriented to time, place, person, mood and affect Vital Signs Temp Pulse Resp BP Pulse Ox 97.9 F 88 20 H 131/52 H 97 06/11/18 04:00 06/11/18 04:00 06/11/18 04:00 06/11/18 04:00 06/11/18 04:00 Oxygen Flow Rate (L/min) 5 Oxygen Delivery Method Nasal Cannula Weight: 144 lb 6.444 oz Body Mass Index (BMI) 22.6 Finger Stick Blood Glucose 126 Intake and Output for Last 24 Hours 06/09/18 06/10/18 06/11/18 23:59 23:59 23:59 Intake Total 300 / 300 Output Total 310 / 310 Balance - Laboratory Tests Past 24 Hrs 06/10/18 06/10/18 06/10/18 15:59 15:59 19:02 WBC 6.5 RBC 2.93 L Hgb 9.3 L Hct 29.4 L MCV 100.3 H MCH 31.7 MCHC 31.6 L RDW 14.2 RDW Differential 51.8 H Plt Count 227 MPV 8.8 Immature Gran % (Auto) 0.500 Neut % (Auto) 68.9 Lymph % (Auto) 21.1 [place] % (Auto) 6.6 Eos % (Auto) 2.6 Baso % (Auto) 0.3 Absolute Neuts (auto) 4.5 Absolute Lymphs (auto) 1.37 Total Counted Not Reportable PT 14.7 INR 1.2 Sodium 136 Potassium 4.2 Chloride 96 L Carbon Dioxide 33.0 H Anion Gap 7 BUN 14 Creatinine 0.80 Estim Creat Clear Calc 83.01 Est GFR (MDRD) Af Amer 124 Est GFR (MDRD) Non-Af 102 BUN/Creatinine Ratio 17.5 Glucose 84 Calcium 8.9 06/11/18 06/11/18 06/11/18 05:54 05:54 05:54 WBC 9.9 RBC 2.93 L Hgb 9.3 L Hct 30.3 L MCV 103.4 H MCH 31.7 MCHC 30.7 L RDW 14.5 RDW Differential 54.8 H Plt Count 240 MPV 9.1 Immature Gran % (Auto) 0.800 Neut % (Auto) 83.5 H Lymph % (Auto) 11.5 L [place] % (Auto) 2.6 Eos % (Auto) 1.4 Baso % (Auto) 0.2 Absolute Neuts (auto) 8.3 H Absolute Lymphs (auto) 1.14 Total Counted Not Reportable PT 14.8 INR 1.2 Sodium 138 Potassium 4.7 Chloride 98 Carbon Dioxide 37.0 H Anion Gap 3 L BUN 14 Creatinine 0.67 L Estim Creat Clear Calc 64.69 Est GFR (MDRD) Af Amer 152 Est GFR (MDRD) Non-Af 126 BUN/Creatinine Ratio 20.9 H Glucose 94 Calcium 8.8 Clinical Impression(s) from Imaging Studies Chest X-Ray 06/10/18 14:43 IMPRESSION: Large left pneumothorax. This has progressed as compared to prior study. Atelectasis in the posterior medial segment of the left lower lobe. Electronically Signed: Sebastien Zheng MD at 15:03 EDT Tel [phone], Service support , Chest X-Ray 06/10/18 16:15 IMPRESSION: 1. Successful evacuation of the left pneumothorax following placement of left chest tube. 2. There is incomplete reaeration of the left lung base. Small left pleural effusion not excluded. Electronically Signed: Dewayne Perez MD at 16:55 EDT , Service support , Assessment/Plan All Active Problems (Last Reviewed 05/27/18 @ 10:31 by Cherly Schaeffer, WILLIE-C) Pneumothorax after biopsy (Acute) Shortness of breath (Acute) Lung nodule (Acute) Left ventricular thrombus (Acute) Laceration of right elbow without complication (Acute) Abrasion of skin (Acute) Hx of colonoscopy (Resolved) Diverticula of colon (Acute) SOB (shortness of breath) (Acute) Acute respiratory failure with hypoxia (Resolved) Acute on chronic respiratory failure with hypoxia (Resolved) COPD with acute exacerbation (Resolved) CAP (community acquired pneumonia) (Resolved) Chronic respiratory failure with hypoxia and hypercapnia (Resolved) RECOMMENDATIONS: 1. Remove patient from continuous wall suction and place chest tube to waterseal. 2. Obtain repeat plain film chest x-ray in approximate 3 hours. 3. Maintain patient on supplemental oxygen. 4. Continue bronchodilators. IMPRESSIONS: 1. Iatrogenic pneumothorax following CT-guided lung biopsy The patient is now status post tube thoracotomy with interval resolution of the previously noted pneumothorax. The patient was transitioned from continuous wall suction to waterseal early this morning. A follow-up plain film chest x- ray revealed no recurrence of the patient's pneumothorax with a chest tube on waterseal. Therefore, the chest tube was subsequently removed. One suture was left in place, given the size of the incision made to facilitate chest tube placement. The suture can be removed at his follow-up office visit in the pulmonary medicine clinic next week. Would plan to monitor the patient for 2-3 hours post chest tube removal, after which time one last x-ray will be obtained. If no recurrence of the pneumothorax is noted, the patient can be discharged home from my perspective. The patient is currently scheduled to follow-up in the pulmonary medicine clinic with our nurse practitioner at 12:45 PM on Thursday the . Please place order for outpatient chest x-ray to be obtained prior to his follow-up office visit. The patient has been advised to refrain from utilizing his home trilogy noninvasive ventilator for the foreseeable future. 2. Newly diagnosed non-small cell carcinoma The patient has newly diagnosed squamous cell carcinoma following CT-guided lung biopsy. I personally discussed the test results with both the patient and his at the bedside. They are going to take some time to consider where they would like to go for their oncologic follow-up/care. Arrangements can be made by our nurse practitioner upon his follow-up office visit. 3. Advanced age COPD without exacerbation/chronic hypoxemic respiratory failure Continue scheduled aerosol treatments as ordered. Continue supplemental oxygen. Patient appears to have a baseline 3 L/min supplemental oxygen requirement with exertion. This note was generated with POI dictation software. It may contain incorrect words, spelling, and punctuation that were not noted in checking the note before signing. Code Visit Inpatient E&M: 31989 Init Hosp L3
[2018-06-11] MEDS: Budesonide Respules 0.5 MG/2 ML AMPUL.NEB. INHALATION (07:25)
[2018-06-11] MEDS: Ipratropium/Albuterol Sulfate 3 ML AMPUL.NEB INHALATION ×2 (07:25→13:19)
[2018-06-11] MEDS: Acetaminophen 325 MG Tablet 650 MG PO (08:27)
[2018-06-11] MEDS: Multivitamins,Therapeutic Tablet 1 TABLET PO (08:28)
[2018-06-11] MEDS: Hydroxychloroquine 200 MG Tablet PO ×2 (08:28→17:36)
--- NOTE | 2018-06-11 09:55 | RAD_ITS ---
STUDY: X-RAY CHEST REASON FOR EXAM: Male, 67 years old. History of pneumothorax. TECHNIQUE: Single AP portable view of the chest. COMPARISON: Comparison is made with prior study done earlier in the day at 4:53 AM. FINDINGS: Stable appearance of the left-sided chest tube with the tip in the superior medial aspect of the left hemithorax. The left lung remains expanded. There is no evidence of pneumothorax. There is evidence of a subcutaneous emphysema overlying the left hemithorax. Stable pleural parenchymal changes at the right lung base. Stable mild increased markings at the left lung base. RAD/Chest 1 View (Portable) IMPRESSION: Stable examination. Electronically Signed: Sebastien Zheng MD at 10:41 EDT Tel [phone], Service support ,
[2018-06-11] MEDS: Carvedilol 6.25 MG Tablet PO (10:39)
[2018-06-11] MEDS: Losartan Potassium 50 MG Tablet PO (10:39)
[2018-06-11] MEDS: Pantoprazole Sodium 40 MG Tablet PO (10:39)
[2018-06-11] MEDS: Furosemide 40 MG Tablet PO ×2 (10:39→17:37)
--- NOTE | 2018-06-11 11:16 | DCINST_ITS ---
- Discharge Diagnoses Current Active Problems: Current Active and Chronic Problems (Last Reviewed 05/27/18 @ 10:31 by VICKIE Olivo) Shortness of breath (Acute) Reason(s) for Visit for Discharge Instructions: Iatrogenic cause of pneumothorax biopsy You will use the following diet at home:: Cardiac, Fluid restricted (specify 2000 mls, 1500 mls) - 1500 Your food should be the consistency of: Regular Your liquids should be the consistency of: Regular/Thin Discharge Activity: Return to Normal Activity May resume sexual activity in: No Restrictions Call your doctor if you observe: Fever of 101 or Higher, Coldness, Increased Pain, Numbness or Tingling, Shortness of breath, Dizziness, Chest pain Additional Instructions: Hold Coumadin and aspirin until June 17 Pending Tests on Discharge: Chest x-ray showing no pneumothorax otherwise hold discharge Allergies/Adverse Reactions: Allergies No Known Allergies Allergy (Verified 06/10/18 13:59) Medications to take at Discharge Hydroxychloroquine [Plaquenil] 200 mg PO BIDCM 08/27/16 Multivitamin [Multiple Vitamins] 1 ea PO DAILY 08/27/16 Omeprazole Magnesium 40 mg PO DAILY 08/27/16 aspirin 81 mg chewable tablet 81 mg PO .QOD tab 10/15/17 carvedilol 6.25 mg tablet 6.25 mg PO BID 10/15/17 cholecalciferol (vitamin D3) 2,000 unit capsule 1,000 unit PO BID cap 10/15/17 fluticasone 50 mcg/actuation nasal spray,suspension 2 spray INTRANASAL BID PRN PRN g 10/15/17 levothyroxine 25 mcg capsule 25 mcg PO DAILY cap 10/15/17 losartan 50 mg tablet 50 mg PO DAILY 10/15/17 warfarin 5 mg tablet 5 mg PO .COMPLEX tab 02/09/18 albuterol sulfate 2.5 mg/3 mL (0.083 %) solution for nebulization 2.5 mg INHALATION Q6HWA.RT #180 vial 03/03/18 albuterol sulfate HFA 90 mcg/actuation aerosol inhaler 2 puff INHALATION Q4H PRN PRN #18 g 03/30/18 Albuterol IH (ProAir) [Proair Hfa] 1 puff INHALATION Q4H PRN PRN 06/10/18 Atorvastatin Calcium [Lipitor] 40 mg PO QHS 06/10/18 Budesonide/Formoterol 160/4.5 [Symbicort 160/4.5 Mcg Inhaler (SP)] 2 puff INHALATION BID 06/10/18 Furosemide [Lasix] 40 mg PO BID 06/10/18 Tiotropium [place] [Spiriva] 2 puff IH DAILY 06/10/18 Primary Care Physician: Joseluis Foote III, MD [Primary Care Provider] - Please follow up with your Primary Care Physician in: 1 week Test Results: Test results from this visit will be discussed in further detail at your follow- up appointment, if applicable. Proposed Discharge Date: 06/11/18 - Only if chest x-ray does not show pneumothorax
--- NOTE | 2018-06-11 11:18 | PCM.DC.SUM ---
Discharge Date and Diagnosis - Problem List Patient Problems: Active and Suspected Problems (Last Reviewed 05/27/18 @ 10:31 by VICKIE Olivo) Pneumothorax after biopsy (Acute) Shortness of breath (Acute) Date of Admission: 06/10/18 Date of Discharge: 06/11/18 - Primary Discharge Diagnosis Active and Suspected Problems (Last Reviewed 05/27/18 @ 10:31 by VICKIE Olivo) Pneumothorax after biopsy (Acute) Shortness of breath (Acute) - Secondary Discharge Diagnosis Chronic Problems (Last Reviewed 05/27/18 @ 10:31 by VICKIE Olivo) Implantable cardioverter-defibrillator (ICD) in situ (Chronic 12/27/16) [employer] Dynogen EL ICD, model D150; Seriao # [id number] Secondary pulmonary arterial hypertension (Chronic) Nonischemic cardiomyopathy (Chronic) EF 15-20% per heart cath 08/29/2016; 20-35% per echo 12/17/2016 Severe left ventricular systolic dysfunction (Chronic) EF 15-20% per heart cath 08/29/2016; 20-35% per echo 12/17/2016 History of left heart catheterization (Chronic) Mild, nonobstructive CAD per [facility] 08/29/2016 @ [facility] per Dr. Cantrell Atherosclerotic heart disease of [place] coronary artery without angina pectoris (Chronic) Mild, nonobstructive CAD per [facility] 08/29/2016 @ [facility] per Dr. Cantrell PVD (peripheral vascular disease) (Chronic) Long-term use of high-risk medication (Chronic) Stage 3 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) FEV1 31 PND (paroxysmal nocturnal dyspnea) (Chronic) Hyperlipidemia (Chronic) assisted current use of anticoagulant (Chronic) Psoriatic arthritis (Chronic) Acne cystica (Chronic) CHF (congestive heart failure), NYHA class I (Chronic) Pulmonary hypertension (Chronic) RVSP 47mm hg per echo 08/28/2016 (unable to estimate per Echo 12/17/2016) Hospital Course and Treatment Imaging Results: 06/11/18 05:00 Chest 1 View (Portable) [RAD] Routine 06/11/18 09:55 CXR [Chest 1 View (Portable)] [RAD] Stat 06/12/18 05:55 Chest 1 View (Portable) [RAD] AM (NON MEDS) Dr. Gary pulmonary Operations: - - Status post chest tube after lung biopsy removal Summary of Care Provided: Patient is a 67-year-old male COPD hypertension pulmonary nodule CHF EF of 20-30%, AICD, peripheral vascular disease, hyperlipidemia, psoriatic arthritis , acne cystica, and pulmonary hypertension he had a left pulmonary nodule biopsy and he has trilogy for COPD he proceeded to use his trilogy and gave himself a left-sided pneumothorax. Patient had a chest tube placed, decompressed, and if chest x-ray does not show pneumothorax patient may go home later today if okay with pulmonary. Patient already on chronic O2, secondary to rib fractures. Have told patient to hold Coumadin and aspirin as per landing gear mechanic Dr. Cantrell until June 17. And have included in discharge instructions. Again patient will only be discharged if left-sided pneumothorax has improved. Case management to see if he needs any home health or any durable medical equipment. Patient likely to be discharged this afternoon if there is no reaccumulation of air Medications reviewed with the patient. Risks, benefits, alternatives, side effects, potential complications and dangers of medications discussed. Patient wishes to utilize these agents despite risk. A signed medical consent/advisement form regarding narcotic medications and a side medication agreement are located in the patient's chart. Chart is dictated with director of math software. Errors may occur in dictation that may change providers meaning. This note was generated with [employer] dictation software. It may contain incorrect words, spelling, and punctuation that were not noted in checking the note before signing. Patient Problems: Active and Suspected Problems (Last Reviewed 05/27/18 @ 10:31 by Cheryl Schaeffer NP-C) Pneumothorax after biopsy (Acute) Shortness of breath (Acute) - Physical Exam General: Alert, Oriented x3, Cooperative HEENT: Atraumatic, PERRLA, EOMI Neck: Supple, No JVD, Trachea Midline Lungs: No rhonchi, No rales, Diminished - Prolonged expiratory phase Cardiovascular: Regular rate, Normal S1, Normal S2, Murmur, - - Of AICD pacemaker Abdomen: Soft, Non Tender, Non-Distended Extremities: No clubbing, No cyanosis, Edema Skin: - - Multiple cystic acne blackheads noted Musculoskeletal: No Tenderness to Palpation of Joints or Extremities, No Muscle Wasting Lymphatic: No Cervical, Supraclavicular, or Inguinal Adenopathy Neurological: Cranial nerves II-XII grossly intact, Neuro grossly intact Psych/Mental Status: Normal Affect, Appropriate, Alert and oriented to time, place, person, mood and affect Vital Signs Temp Pulse Resp BP Pulse Ox 98.5 F 97 16 117/58 L 94 06/11/18 10:12 06/11/18 10:12 06/11/18 10:12 06/11/18 10:12 06/11/18 10:12 Oxygen Flow Rate (L/min) 5 Oxygen Delivery Method Nasal Cannula Weight: 65.5 kg Body Mass Index (BMI) 22.6 Finger Stick Blood Glucose 126 Intake and Output for Last 24 Hours 06/09/18 06/10/18 06/11/18 23:59 23:59 23:59 Intake Total 300 / 300 Output Total 310 / 310 Balance - Laboratory Tests Past 24 Hrs 06/10/18 06/10/18 06/10/18 15:59 15:59 19:02 WBC 6.5 RBC 2.93 L Hgb 9.3 L Hct 29.4 L MCV 100.3 H MCH 31.7 MCHC 31.6 L RDW 14.2 RDW Differential 51.8 H Plt Count 227 MPV 8.8 Immature Gran % (Auto) 0.500 Neut % (Auto) 68.9 Lymph % (Auto) 21.1 Patrick % (Auto) 6.6 Eos % (Auto) 2.6 Baso % (Auto) 0.3 Absolute Neuts (auto) 4.5 Absolute Lymphs (auto) 1.37 Total Counted Not Reportable PT 14.7 INR 1.2 Sodium 136 Potassium 4.2 Chloride 96 L Carbon Dioxide 33.0 H Anion Gap 7 BUN 14 Creatinine 0.80 Estim Creat Clear Calc 83.01 Est GFR (MDRD) Af Amer 124 Est GFR (MDRD) Non-Af 102 BUN/Creatinine Ratio 17.5 Glucose 84 Calcium 8.9 06/11/18 06/11/18 06/11/18 05:54 05:54 05:54 WBC 9.9 RBC 2.93 L Hgb 9.3 L Hct 30.3 L MCV 103.4 H MCH 31.7 MCHC 30.7 L RDW 14.5 RDW Differential 54.8 H Plt Count 240 MPV 9.1 Immature Gran % (Auto) 0.800 Neut % (Auto) 83.5 H Lymph % (Auto) 11.5 L Patrick % (Auto) 2.6 Eos % (Auto) 1.4 Baso % (Auto) 0.2 Absolute Neuts (auto) 8.3 H Absolute Lymphs (auto) 1.14 Total Counted Not Reportable PT 14.8 INR 1.2 Sodium 138 Potassium 4.7 Chloride 98 Carbon Dioxide 37.0 H Anion Gap 3 L BUN 14 Creatinine 0.67 L Estim Creat Clear Calc 64.69 Est GFR (MDRD) Af Amer 152 Est GFR (MDRD) Non-Af 126 BUN/Creatinine Ratio 20.9 H Glucose 94 Calcium 8.8 STUDY: X-RAY CHEST REASON FOR EXAM: Male, 67 years old. History of pneumothorax. TECHNIQUE: Single AP portable view of the chest. COMPARISON: Comparison is made with prior study done earlier in the day at 4:53 AM. FINDINGS: Stable appearance of the left-sided chest tube with the tip in the superior medial aspect of the left hemithorax. The left lung remains expanded. There is no evidence of pneumothorax. There is evidence of a subcutaneous emphysema overlying the left hemithorax. Stable pleural parenchymal changes at the right lung base. Stable mild increased markings at the left lung base. RAD/Chest 1 View (Portable) IMPRESSION: Stable examination. Electronically Signed: Sebastien Zheng MD at 10:41 EDT Tel [phone], Service support , Discharge Diet: No Restrictions - Cardiac 1500 fluid restriction Discharge Activity: Return to Normal Activity May resume sexual activity in: No Restrictions Call your doctor if you observe: Fever of 101 or Higher, Coldness, Increased Pain, Numbness or Tingling, Shortness of breath, Dizziness, Chest pain Home Medications: Medications to take at Discharge Hydroxychloroquine [Plaquenil] 200 mg PO BIDCM 08/27/16 Multivitamin [Multiple Vitamins] 1 ea PO DAILY 08/27/16 Omeprazole Magnesium 40 mg PO DAILY 08/27/16 aspirin 81 mg chewable tablet 81 mg PO .QOD tab 10/15/17 carvedilol 6.25 mg tablet 6.25 mg PO BID 10/15/17 cholecalciferol (vitamin D3) 2,000 unit capsule 1,000 unit PO BID cap 10/15/17 fluticasone 50 mcg/actuation nasal spray,suspension 2 spray INTRANASAL BID PRN PRN g 10/15/17 levothyroxine 25 mcg capsule 25 mcg PO DAILY cap 10/15/17 losartan 50 mg tablet 50 mg PO DAILY 10/15/17 warfarin 5 mg tablet 5 mg PO .COMPLEX tab 02/09/18 albuterol sulfate 2.5 mg/3 mL (0.083 %) solution for nebulization 2.5 mg INHALATION Q6HWA.RT #180 vial 03/03/18 albuterol sulfate HFA 90 mcg/actuation aerosol inhaler 2 puff INHALATION Q4H PRN PRN #18 g 03/30/18 Albuterol IH (ProAir) [Proair Hfa] 1 puff INHALATION Q4H PRN PRN 06/10/18 Atorvastatin Calcium [Lipitor] 40 mg PO QHS 06/10/18 Budesonide/Formoterol 160/4.5 [Symbicort 160/4.5 Mcg Inhaler (SP)] 2 puff INHALATION BID 06/10/18 Furosemide [Lasix] 40 mg PO BID 06/10/18 Tiotropium [place] [Spiriva] 2 puff IH DAILY 06/10/18 Primary Care Physician: Joseluis Foote III, MD [Primary Care Provider] - Please follow up with your Primary Care Physician in: 1 week Disposition: Home with Home Health - If required Patient Condition:: Fair Medical Necessity - Tobacco Use Smoking Status: Former smoker Tobacco Use: Cigarettes - quit 10 years ago Meaningful Use Info Meaningful Use Diagnoses (Choose all that apply): CHF - CHF FELIX/ARB ordered at discharge?: Yes Documented LVEF (%): 30 Code Visit Inpatient E&M: 28063 Disch Hosp
--- NOTE | 2018-06-11 11:22 | DS.PCM_ITS ---
Discharge Date and Diagnosis - Problem List Patient Problems: Active and Suspected Problems (Last Reviewed 05/27/18 @ 10:31 by VICKIE Olivo) Pneumothorax after biopsy (Acute) Shortness of breath (Acute) Date of Admission: 06/10/18 Date of Discharge: 06/11/18 - Primary Discharge Diagnosis Active and Suspected Problems (Last Reviewed 05/27/18 @ 10:31 by VICKIE Olivo) Pneumothorax after biopsy (Acute) Shortness of breath (Acute) - Secondary Discharge Diagnosis Chronic Problems (Last Reviewed 05/27/18 @ 10:31 by VICKIE Olivo) Implantable cardioverter-defibrillator (ICD) in situ (Chronic 12/27/16) [employer] Dynogen EL ICD, model D150; Seriao # [id number] Secondary pulmonary arterial hypertension (Chronic) Nonischemic cardiomyopathy (Chronic) EF 15-20% per heart cath 08/29/2016; 20-35% per echo 12/17/2016 Severe left ventricular systolic dysfunction (Chronic) EF 15-20% per heart cath 08/29/2016; 20-35% per echo 12/17/2016 History of left heart catheterization (Chronic) Mild, nonobstructive CAD per [facility] 08/29/2016 @ [facility] per Dr. Cantrell Atherosclerotic heart disease of [place] coronary artery without angina pectoris (Chronic) Mild, nonobstructive CAD per [facility] 08/29/2016 @ [facility] per Dr. Cantrell PVD (peripheral vascular disease) (Chronic) Long-term use of high-risk medication (Chronic) Stage 3 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) FEV1 31 PND (paroxysmal nocturnal dyspnea) (Chronic) Hyperlipidemia (Chronic) [facility] current use of anticoagulant (Chronic) Psoriatic arthritis (Chronic) Acne cystica (Chronic) CHF (congestive heart failure), NYHA class I (Chronic) Pulmonary hypertension (Chronic) RVSP 47mm hg per echo 08/28/2016 (unable to estimate per Echo 12/17/2016) Hospital Course and Treatment Imaging Results: 06/11/18 05:00 Chest 1 View (Portable) [RAD] Routine 06/11/18 09:55 CXR [Chest 1 View (Portable)] [RAD] Stat 06/12/18 05:55 Chest 1 View (Portable) [RAD] AM (NON MEDS) Dr. Gary pulmonary Operations: - - Status post chest tube after lung biopsy removal Summary of Care Provided: Patient is a 67-year-old male COPD hypertension pulmonary nodule CHF EF of 20- 30%, AICD, peripheral vascular disease, hyperlipidemia, psoriatic arthritis , acne cystica, and pulmonary hypertension he had a left pulmonary nodule biopsy and he has trilogy for COPD he proceeded to use his trilogy and gave himself a left-sided pneumothorax. Patient had a chest tube placed, decompressed, and if chest x-ray does not show pneumothorax patient may go home later today if okay with pulmonary. Patient already on chronic O2, secondary to rib fractures. Have told patient to hold Coumadin and aspirin as per military source operations officer Dr. Cantrell until June 17. And have included in discharge instructions. Again patient will only be discharged if left-sided pneumothorax has improved. Case management to see if he needs any home health or any durable medical equipment. Patient likely to be discharged this afternoon if there is no reaccumulation of air Medications reviewed with the patient. Risks, benefits, alternatives, side effects, potential complications and dangers of medications discussed. Patient wishes to utilize these agents despite risk. A signed medical consent/advisement form regarding narcotic medications and a side medication agreement are located in the patient's chart. Chart is dictated with tag clerk software. Errors may occur in dictation that may change providers meaning. This note was generated with [employer] dictation software. It may contain incorrect words, spelling, and punctuation that were not noted in checking the note before signing. Patient Problems: Active and Suspected Problems (Last Reviewed 05/27/18 @ 10:31 by Cheryl Schaeffer NP-C) Pneumothorax after biopsy (Acute) Shortness of breath (Acute) - Physical Exam General: Alert, Oriented x3, Cooperative HEENT: Atraumatic, PERRLA, EOMI Neck: Supple, No JVD, Trachea Midline Lungs: No rhonchi, No rales, Diminished - Prolonged expiratory phase Cardiovascular: Regular rate, Normal S1, Normal S2, Murmur, - - Of AICD pacemaker Abdomen: Soft, Non Tender, Non-Distended Extremities: No clubbing, No cyanosis, Edema Skin: - - Multiple cystic acne blackheads noted Musculoskeletal: No Tenderness to Palpation of Joints or Extremities, No Muscle Wasting Lymphatic: No Cervical, Supraclavicular, or Inguinal Adenopathy Neurological: Cranial nerves II-XII grossly intact, Neuro grossly intact Psych/Mental Status: Normal Affect, Appropriate, Alert and oriented to time, place, person, mood and affect Vital Signs Temp Pulse Resp BP Pulse Ox 98.5 F 97 16 117/58 L 94 06/11/18 10:12 06/11/18 10:12 06/11/18 10:12 06/11/18 10:12 06/11/18 10:12 Oxygen Flow Rate (L/min) 5 Oxygen Delivery Method Nasal Cannula Weight: 65.5 kg Body Mass Index (BMI) 22.6 Finger Stick Blood Glucose 126 Intake and Output for Last 24 Hours 06/09/18 06/10/18 06/11/18 23:59 23:59 23:59 Intake Total 300 / 300 Output Total 310 / 310 Balance - Laboratory Tests Past 24 Hrs 06/10/18 06/10/18 06/10/18 15:59 15:59 19:02 WBC 6.5 RBC 2.93 L Hgb 9.3 L Hct 29.4 L MCV 100.3 H MCH 31.7 MCHC 31.6 L RDW 14.2 RDW Differential 51.8 H Plt Count 227 MPV 8.8 Immature Gran % (Auto) 0.500 Neut % (Auto) 68.9 Lymph % (Auto) 21.1 [place] % (Auto) 6.6 Eos % (Auto) 2.6 Baso % (Auto) 0.3 Absolute Neuts (auto) 4.5 Absolute Lymphs (auto) 1.37 Total Counted Not Reportable PT 14.7 INR 1.2 Sodium 136 Potassium 4.2 Chloride 96 L Carbon Dioxide 33.0 H Anion Gap 7 BUN 14 Creatinine 0.80 Estim Creat Clear Calc 83.01 Est GFR (MDRD) Af Amer 124 Est GFR (MDRD) Non-Af 102 BUN/Creatinine Ratio 17.5 Glucose 84 Calcium 8.9 06/11/18 06/11/18 06/11/18 05:54 05:54 05:54 WBC 9.9 RBC 2.93 L Hgb 9.3 L Hct 30.3 L MCV 103.4 H MCH 31.7 MCHC 30.7 L RDW 14.5 RDW Differential 54.8 H Plt Count 240 MPV 9.1 Immature Gran % (Auto) 0.800 Neut % (Auto) 83.5 H Lymph % (Auto) 11.5 L [place] % (Auto) 2.6 Eos % (Auto) 1.4 Baso % (Auto) 0.2 Absolute Neuts (auto) 8.3 H Absolute Lymphs (auto) 1.14 Total Counted Not Reportable PT 14.8 INR 1.2 Sodium 138 Potassium 4.7 Chloride 98 Carbon Dioxide 37.0 H Anion Gap 3 L BUN 14 Creatinine 0.67 L Estim Creat Clear Calc 64.69 Est GFR (MDRD) Af Amer 152 Est GFR (MDRD) Non-Af 126 BUN/Creatinine Ratio 20.9 H Glucose 94 Calcium 8.8 STUDY: X-RAY CHEST REASON FOR EXAM: Male, 67 years old. History of pneumothorax. TECHNIQUE: Single AP portable view of the chest. COMPARISON: Comparison is made with prior study done earlier in the day at 4:53 AM. FINDINGS: Stable appearance of the left-sided chest tube with the tip in the superior medial aspect of the left hemithorax. The left lung remains expanded. There is no evidence of pneumothorax. There is evidence of a subcutaneous emphysema overlying the left hemithorax. Stable pleural parenchymal changes at the right lung base. Stable mild increased markings at the left lung base. RAD/Chest 1 View (Portable) IMPRESSION: Stable examination. Electronically Signed: Sebastien Zheng MD at 10:41 EDT Tel [phone], Service support , Discharge Diet: No Restrictions - Cardiac 1500 fluid restriction Discharge Activity: Return to Normal Activity May resume sexual activity in: No Restrictions Call your doctor if you observe: Fever of 101 or Higher, Coldness, Increased Pain, Numbness or Tingling, Shortness of breath, Dizziness, Chest pain Home Medications: Medications to take at Discharge Hydroxychloroquine [Plaquenil] 200 mg PO BIDCM 08/27/16 Multivitamin [Multiple Vitamins] 1 ea PO DAILY 08/27/16 Omeprazole Magnesium 40 mg PO DAILY 08/27/16 aspirin 81 mg chewable tablet 81 mg PO .QOD tab 10/15/17 carvedilol 6.25 mg tablet 6.25 mg PO BID 10/15/17 cholecalciferol (vitamin D3) 2,000 unit capsule 1,000 unit PO BID cap 10/15/17 fluticasone 50 mcg/actuation nasal spray,suspension 2 spray INTRANASAL BID PRN PRN g 10/15/17 levothyroxine 25 mcg capsule 25 mcg PO DAILY cap 10/15/17 losartan 50 mg tablet 50 mg PO DAILY 10/15/17 warfarin 5 mg tablet 5 mg PO .COMPLEX tab 02/09/18 albuterol sulfate 2.5 mg/3 mL (0.083 %) solution for nebulization 2.5 mg INHALATION Q6HWA.RT #180 vial 03/03/18 albuterol sulfate HFA 90 mcg/actuation aerosol inhaler 2 puff INHALATION Q4H PRN PRN #18 g 03/30/18 Albuterol IH (ProAir) [Proair Hfa] 1 puff INHALATION Q4H PRN PRN 06/10/18 Atorvastatin Calcium [Lipitor] 40 mg PO QHS 06/10/18 Budesonide/Formoterol 160/4.5 [Symbicort 160/4.5 Mcg Inhaler (SP)] 2 puff INHALATION BID 06/10/18 Furosemide [Lasix] 40 mg PO BID 06/10/18 Tiotropium [place] [Spiriva] 2 puff IH DAILY 06/10/18 Primary Care Physician: Joseluis Foote III, MD [Primary Care Provider] - Please follow up with your Primary Care Physician in: 1 week Disposition: Home with Home Health - If required Patient Condition:: Fair Medical Necessity - Tobacco Use Smoking Status: Former smoker Tobacco Use: Cigarettes - quit 10 years ago Meaningful Use Info Meaningful Use Diagnoses (Choose all that apply): CHF - CHF FELIX/ARB ordered at discharge?: Yes Documented LVEF (%): 30 Code Visit Inpatient E&M: 91835 Disch Hosp
--- NOTE | 2018-06-11 12:25 | CASEMGMT ---
RN CM Face to Face with patient for initial transition planning/care coordination assessment. RN CM introduced self and role at [facility]. Patient lying in bed, alert and oriented. Patient willing to participate in assessment and is able to answer all questions appropriately. Care providers, pharmacy, and demographics verified. Patient wishes to discharge home, denies need for home health at this time. Patient states he has no further needs or concerns at this time. CM to follow for discharge planning needs that may arise. PCP: Qamar Specialists: Marcos pulmonology, Óscar building inspector Preferred Pharmacy: [facility] Insurance: [facility] Prescription Benefit: [employer] Living Will/HPOA: Yes Shama Ramires, LNOK: Living Arrangements: Patient lives with 2 story house with bed and bath on the 1st floor. Patient is independent at home. Transportation: Self/ DME/HHC: Oxygen, Bipap, nebulizer through nebulizer, [facility]. Declines HHC Disposition Plan: Patient to discharge home with family support and follow-up plans in place. Osiris BLAIRN, RN, CM
--- NOTE | 2018-06-11 13:02 | RAD_ITS ---
STUDY: X-RAY CHEST REASON FOR EXAM: Male, 67 years old. Pneumothorax. Post chest tube removal. TECHNIQUE: Single AP portable view of the chest. COMPARISON: Comparison is made with prior chest radiograph done earlier today. FINDINGS: The left-sided chest tube has been removed. EKG electrode are seen. Stable subcutaneous emphysema overlying the left lateral chest wall. 1.7 cm nodule in the lingular segment of the left upper lobe. Stable increased markings at the right lung base with blunting of the right costophrenic angle RAD/Chest 1 View (Portable) IMPRESSION: Removal of the left-sided chest tube. There is no evidence of pneumothorax. Stable pleural parenchymal changes at the right lung base as well as subcutaneous emphysema overlying the left hemithorax. Electronically Signed: Sebastien Zehng MD at 13:16 EDT Tel [phone], Service support ,
--- NOTE | 2018-06-14 15:53 | CASEMGMT ---
FOLLOW-UP CALL: No answer. Voicemail left with return contact information.
== END 2018-06-11 18:02 | disposition home or self-care (01) | DRG 200 ==
LOC: ED 16:47 → MS3 17:59
PROVIDERS: Admitting Provider Student in an Organized Health Care Education/Training Program; Emergency Provider Emergency Medicine; Family Provider Family Medicine; PCP Family Medicine; Visit Provider Internal Medicine
DX: J95.811 Postprocedural pneumothorax (principal); I50.20 Unspecified systolic (congestive) heart failure; C34.92 Malignant neoplasm of unspecified part of left bronchus or lung; J96.11 Chronic respiratory failure with hypoxia; I42.9 Cardiomyopathy, unspecified; Y84.8 Other medical procedures as the cause of abnormal reaction of the patient, or of later complication, without mention of misadventure at the time of the procedure; J44.9 Chronic obstructive pulmonary disease, unspecified; Z87.891 Personal history of nicotine dependence; L40.50 Arthropathic psoriasis, unspecified; I11.0 Hypertensive heart disease with heart failure; I25.10 Atherosclerotic heart disease of native coronary artery without angina pectoris; Z79.82 Long term (current) use of aspirin; Z79.899 Other long term (current) drug therapy; E78.5 Hyperlipidemia, unspecified; I73.9 Peripheral vascular disease, unspecified; I27.21 Secondary pulmonary arterial hypertension; Z95.810 Presence of automatic (implantable) cardiac defibrillator; Z99.81 Dependence on supplemental oxygen
CPT/HCPCS: 36415; 71045; 71046; 77012; 80048; 85025; 85049; 85610; 85730; 88172; 88305; 88313; 88341; 88342; 94640; 97162; 99156; 99157; 99283; J7040; A4216; J2405

== ENCOUNTER → 2018-06-15 11:23 | Outpatient (CLI) | payer MEDICARE, OTHER, SELFPAY ==
--- NOTE | 2018-06-15 11:29 | RAD_ITS ---
STUDY: X-RAY CHEST REASON FOR EXAM: Male, 67 years old. Dyspnea and shortness of breath. History of prior left-sided pneumothorax following the biopsy. TECHNIQUE: PA and lateral views of the chest. COMPARISON: Comparison is made with prior examination dated June 11, 2018. FINDINGS: Stable elevation of the right hemidiaphragm with blunting of the right costophrenic angle. There is no evidence of pneumothorax. Stable increased markings in the lingular segment of the left upper lobe suggestive of scarring. Normal size heart. A left-sided unipolar pacemaker is seen. Normal mediastinum and carina. Normal visualized pulmonary arteries. There is atherosclerotic calcification of the aortic arch with tortuosity. There are diffuse degenerative changes of the visualized thoracic spine. Normal visualized ribs, clavicles, and shoulders. There is no demonstrated abnormality of the visualized soft tissue structures of the upper abdomen. RAD/Chest PA and Lateral IMPRESSION: There is no evidence of pneumothorax. Electronically Signed: Sebastien Zheng MD at 12:14 EDT Tel [phone], Service support ,
== END ==
PROVIDERS: Family Provider Family Medicine; PCP Family Medicine; Referring Provider Nurse Practitioner Acute Care; Visit Provider Nurse Practitioner Acute Care
DX: J95.811 Postprocedural pneumothorax (principal)
CPT/HCPCS: 71046

== ENCOUNTER 2018-06-17 06:53 | Outpatient (RCR) | payer SELFPAY | END 2018-07-16 23:59 | LOC: PR 06:53 | PROVIDERS: Family Provider Family Medicine; PCP Family Medicine; Visit Provider Internal Medicine Critical Care Medicine | DX: Z00.00 Encounter for general adult medical examination without abnormal findings (principal) ==

== ENCOUNTER → 2018-07-06 08:03 | Outpatient (CLI) | payer MEDICARE, OTHER, SELFPAY ==
[2018-07-01 11:30] VITALS: BMI 25.1
[2018-07-06] VITALS (9 sets, daily range): BP systolic 108–156; BP diastolic 27–69; PULSE 76–84; RESP 15–20; TEMP 37.1; O2SAT 92–100; BMI 24.4
--- NOTE | 2018-07-06 | IMM_PTH ---
PATIENT: JIGNESH LOPEZ LOC: CT U#:[id number] AGE/SX: 74/M ROOM: RE07/06/[address]: Dr. Jillian Burton MD : 1950 BED: DIS: SPEC #: [id number] RECD: 07/07/18 14:20 STATUS: JOSÉ REQ #: [id number] KATHE: 07/06/18 00:[address]: Jillian Burton DEPT: IMMUNOHISTOCHEMISTRY RECD BY: Christen Somers ENTERED: 07/07/18 14:22 SP TYPE: IMMUNO OTHR DR: Dr. Joseluis Foote III, MD Tissues: Pelvis, NOS Procedures: Synapto (add) CK8 (initial) CD45 (add) CD56 (add) CHROMO (add) CK20 (add) CK5-6 (add) CK7 (add) P40 (add) PHYSICIAN & INSTITUTION [place] [id number] SPECIMEN INFORMATION: Tissue Source: Right pelvic biopsy Clinical Info: Abnormal right pelvic bone neoplasm Specimen Number: [id number] CPT code: 58082, 09172 x8 METHODOLOGY: Deparaffinized sections of prefer/formalin-fixed tissue or PAP/DQ stained slides are incubated with monoclonal/polyclonal antibodies/oligonucleotide probes. Localization is made via biotin free immunoperoxidase method. Appropriate controls are performed and reacted as expected. Results on target cell population are indicated in the following table: RESULTS: ANTIBODY / CLONE RESULT CK8 (25shwpA18) positive CK5-6 (D5 & 1684) negative P40 (BC28) negative CD45 (RP2/18) negative CK7 (OV-TL12/30) negative CK20 (KS20.8) negative CD56 (123C3.D5) positive Chromo (LK2H10) positive Synapto (polyclonal) positive These tests were developed and their performance characteristics determined by [facility]. They may not have been cleared or approved by the U.S. Food and Drug Administration. The FDA has determined that such clearance or approval is not necessary. 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 Clinical correlation is necessary. SJ:beni 07/09/18
--- NOTE | 2018-07-06 08:06 | CT_ITS ---
PROCEDURE: CT GUIDED biopsy of the small sclerotic lesion in the posterior aspect of the right iliac bone. DATE: July 06, 2018. INDICATION: Male, 67 years old. History of lung cancer. Focal sclerosis in the posterior aspect of the right iliac bone. PHYSICIAN: Sebastien Zheng M.D. RADIATION DOSAGE (If Supplied By Facility): CTDIvol = ( 15.2 ) mGy, DLP = ( 379.75 ) mGycm PROCEDURE: The risks, benefits, and alternatives to the procedure were explained to the patient. The specific risk of hemorrhage requiring further treatment or intervention was detailed and accepted. Follow-up instructions were discussed with the patient as well. Written informed consent was obtained. The patient was brought into the CT suite and placed in the left lateral decubitus position. . An appropriate entry site was identified. The overlying skin was prepped and draped in the usual sterile fashion. 1% lidocaine was administered subcutaneously for local anesthesia. Conscious sedation was performed. The patient received 3 mg of Versed and 75 mcg of fentanyl intravenously. Conscious sedation was started at 9:29 AM and terminated and 9:53 AM. The patient was independently monitored by the department nurse. Under CT guidance, a bone marrow aspiration and biopsy of the sclerotic lesion was performed. The specimens were then placed in the appropriate flow and transported to the laboratory for analysis. Hemostasis was obtained. The patient tolerated the procedure well without immediate complications. CT/Biopsy/Inj or Needle Placement IMPRESSION: Successful CT guided biopsy of the right iliac bone, as described above. Electronically Signed: Sebastien Zheng MD at 13:26 EST Tel [phone], Service support ,
[2018-07-06 08:32] LABS: Absolute Lymphocyte Count 0.79 X10^3/ul (0.83-4.51); Absolute Neutrophil Count 3.5 X10^3/uL (2.0-7.7); Basophil# 0.02 X10^3/uL; Basophil% 0.4 % (0-1); Eosinophil# 0.14 X10^3/uL; Eosinophils% 2.9 % (0-5); Hematocrit 32.9 % (40-54); Hemoglobin 10.4 g/dl (13.0-16.5); Lymphocyte # 0.79 X10^3/ul (4.0); Lymphocyte % 16.3 % (19-41); Mean Corp Hgb Conc 31.6 g/gl (32-36); Mean Corpuscular Volume 101.2 fL (80-94); Mean Platelet Vol. 8.9 fl (6.2-12.0); Monocyte% 8.3 % (0-10); Neutrophil # 3.48 X10^3/uL (2.7-7.7); Neutrophil % 71.9 % (47-70); Platelet Count 237 K/mm3 (150-450); RBC Distribution Width CV 12.9 % (11.6-14.6); RBC Distribution Width SD 45.7 fl (35.1-43.9); Red Blood Count 3.25 M/mm3 (4.6-6.2); White Blood Count 4.8 K/mm3 (4.4-11.0)
[2018-07-06 08:37] LABS: POSITIVE COUNT NO; POSITIVE DIFFERENTIAL NO; POSITIVE MORPHOLOGY NO
[2018-07-06 09:02] LABS: Partial Thromboplast Time 37.6 Seconds (24.1-36.2)
[2018-07-06 09:05] LABS: International Normalized Ratio 1.1; Prothrombin Time (Protime)PT. 14.2 SECONDS (11.7-14.9)
[2018-07-06] MEDS: Midazolam 2 MG/2 ML Syringe IV (09:29)
[2018-07-06] MEDS: fentaNYL 100 MCG/2 ML Ampul IV (09:29)
--- NOTE | 2018-07-06 09:55 | BONBX_PTH ---
PATIENT: JIGNESH LOPEZ LOC: CT U#:[id number] AGE/SX: 74/M ROOM: RE07/06/[address]: Dr. Jillian Burton MD : 1950 BED: DIS: SPEC #: [id number] RECD: 07/06/18 10:07 STATUS: JOSÉ JESUS #: [id number] KATHE: 07/06/18 09:[address]: Jillian Burton DEPT: SURGICAL PATHOLOGY RECD BY: Iker Robb ENTERED: 07/06/18 11:45 SP TYPE: Bone OTHR DR: Dr. 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 See comment. SJ:beni 07/09/18 GROSS DIAGNOSIS Immunohistochemistry ([id number]) supports the above diagnosis. The specimen also shows hematopoietic marrow tissue with trilineage hematopoiesis. Clinical correlation and appropriate follow up are necessary. Please make reference to previous specimen ([id number]) left upper lobe lung mass, CT-guided core biopsy with diagnosis of non-small cell carcinoma, favor squamous cell carcinoma. MICROSCOPIC DESCRIPTION Slides are reviewed. GROSS DESCRIPTION Received in fixative is one container labeled with the patient's name and designated right pelvic bone biopsy. The specimen consists of multiple minute fragments of light ram soft tissue that in aggregate measure 3 x 1 x <0.1 cm. The specimen is filtered and totally submitted in one cassette. / AM:beni 07/06/18 TC:0 CPT: 07180
[2018-07-06 10:03] LABS: Anion Gap 4 (5-15); BUN 12 mg/dL (7-18); BUN/Creat Ratio 15.2 RATIO (10-20); Calcium,Total 8.8 mg/dL (8.5-10.1); Chloride 98 mmol/L (98-107); Creatinine, Serum 0.79 mg/dL (0.70-1.30); EST Glomerular Filtration Rate 104 mL/min (>60); Est Glom Filt Rate - Afr Amer 126 mL/min (>60); Estimated Creatinine Clearance 62.35 ml/min; Glucose 97 mg/dL (74-106); Sodium Level 138 mmol/L (136-145)
== END ==
PROVIDERS: Family Provider Family Medicine; PCP Family Medicine; Referring Provider Internal Medicine Hematology & Oncology; Visit Provider Internal Medicine Hematology & Oncology
DX: M89.9 Disorder of bone, unspecified (principal); C34.12 Malignant neoplasm of upper lobe, left bronchus or lung; R93.89 Abnormal findings on diagnostic imaging of other specified body structures; E87.1 Hypo-osmolality and hyponatremia
CPT/HCPCS: 32405; 36415; 77012; 80048; 85025; 85610; 85730; 88305; 88307; 88311; 88341; 88342; 99156; 99157; J7040; A4216

== ENCOUNTER 2018-07-15 05:57 | Outpatient (RCR) | payer MEDICARE, OTHER, SELFPAY ==
[2018-06-24 07:33] LABS: International Normalized Ratio 1.3; Prothrombin Time (Protime)PT. 16.5 SECONDS (11.7-14.9)
[2018-07-01 13:03] LABS: International Normalized Ratio 1.6; Prothrombin Time (Protime)PT. 18.7 SECONDS (11.7-14.9)
[2018-07-12 12:31] LABS: International Normalized Ratio 1.4; Prothrombin Time (Protime)PT. 16.8 SECONDS (11.7-14.9)
[2018-07-15 07:20] LABS: International Normalized Ratio 1.8; Prothrombin Time (Protime)PT. 20.6 SECONDS (11.7-14.9)
== END 2018-07-16 09:33 | disposition home or self-care (01) ==
LOC: LAB 05:57
PROVIDERS: Nurse Practitioner Acute Care; Family Provider Family Medicine; PCP Family Medicine; Referring Provider Internal Medicine Cardiovascular Disease; Visit Provider Internal Medicine Cardiovascular Disease
DX: I51.3 Intracardiac thrombosis, not elsewhere classified (principal); Z79.01 Long term (current) use of 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
CPT/HCPCS: 36415; 85610

== ENCOUNTER → 2018-07-16 11:27 | Outpatient (CLI) | payer MEDICARE, OTHER, SELFPAY ==
[2018-07-07 06:29] VITALS: BMI 25.2
--- NOTE | 2018-07-16 11:35 | RAD_ITS ---
STUDY: X-RAY CHEST REASON FOR EXAM: Male, 67 years old. Increasing shortness of breath. History of prior pneumothorax. TECHNIQUE: PA and lateral views of the chest. COMPARISON: Comparison is made with prior chest radiograph dated June 15, 2018. FINDINGS: Stable elevation of the right hemidiaphragm. Stable mild degree of increased markings at the left lung base. Suspect a tiny left apical pneumothorax. Normal size heart. A left-sided bipolar pacemaker is seen. Normal mediastinum and carina. Normal visualized pulmonary arteries. There is atherosclerotic calcification of the aortic arch with tortuosity. Normal visualized thoracic spine. Multiple healed right rib fractures. There is no demonstrated abnormality of the visualized soft tissue structures of the upper abdomen. RAD/Chest PA and Lateral IMPRESSION: I suspect a tiny left apical pneumothorax. Electronically Signed: Sebastien Zheng MD at 12:17 EST Tel [phone], Service support ,
--- OUTSIDE RECORDS SUMMARY | 2018-09-10 10:24 | XMS RPT_ITS ---
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 W/INR Collected: 08/04/2018 Status: F Source: [place] FINGERSTICK 6:07 AM [facility] REPOSITORY TYPE CODE TESTS RESULT OUT OF REFERENCE UNITS RANGE LAB L9200.1001 11.9-14.4 SEC High PROTIME ISTAT 22.9 Result Comment: Reference Range 11.9 - 14.4 LAB L9200.2000 Normal INR ISTAT 2.00 Result Comment: Critical Value > 3.5 Performed By: #### L9200.0000 #### [facility] Laboratory Point of Care [address] [place] [address] CHEST PA AND LATERAL Observed: 08/02/2018 Status: F Source: [place] 2:45 PM [facility] REPOSITORY [facility] Imaging Services [address] [place] [address] Chest PA and Lateral MR#: [id number] Acct: [id number] Name: JIGNESH RAMIRES Rep #: [id number] : 1950 M 67 From: Pool Strong MD PCP: Jose Maurer III, MD Status: REG CLI Study: Chest PA and Lateral Date of Exam: 08/02/18 Exam# [id number] Ordering Dr: Cheryl Schaeffer MANAGER OF PROCUREMENT-C STUDY: X-RAY CHEST REASON FOR EXAM: Male, 67 years old. Short of breath. TECHNIQUE: Frontal and lateral views of the chest. COMPARISON: 07/16/2018 FINDINGS: No significant change. Evidence for underlying COPD. Pleural parenchymal scarring is seen in the right lung base. No definite infiltrates. The patient's known 13 mm mass of the left upper lobe is obscured by the power unit of the pacemaker. Normal size heart. Single pacemaker lead terminates in the right ventricle. Normal mediastinum and carina. Normal visualized pulmonary arteries. There is atherosclerotic calcification of the aortic arch with tortuosity. There are diffuse degenerative changes of the visualized thoracic spine. Numerous old bilateral rib fractures are seen. There is no demonstrated abnormality of the visualized soft tissue structures of the upper abdomen. RAD/Chest PA and Lateral IMPRESSION: No change. COPD. Pleural parenchymal scarring in the right lower hemithorax. Electronically Signed: Pool Strong MD at 15:20 EST , Service support , CC: Cheryl Schaeffer; Jose Maurer III, MD [employer]: Signed PROGRESS Observed: 08/02/2018 Status: COMPLETED Source: [place] 2:01 PM [facility] REPOSITORY HNO ID: [id number] Author: Gillian Holm Service: (none) Author Type: Nurse Practitioner Type: Progress Notes Filed: 08/02/2018 2:55 PM Note Text: Chief Complaint Patient presents with: Established Patient HPI: Jignesh Ramires is a 67 year old male who presents here today for rita visit. Per Dr. Murcia's previous note: H/o hypertension, severe COPD (oxygen requiring) coronary artery disease, hyperlipidemia, peripheral vascular disease who was admitted to [facility] in April following a fall where he sustained rib fractures. ? He underwent a CT scan of the chest on 05/13/2018. He was found to have a spiculated nodule in the left upper lobe measuring 1.3 x 1.1 cm. Additionally there were nondisplaced fractures of the right anterior ribs 4 through 8. There was also evidence of nondisplaced left anterior fractures of the left ribs [address] scan the abdomen and pelvis done the same day showed prominent distention of the bladder with no other significant findings. ? Patient underwent a CT-guided biopsy of the spiculated left upper lobe lesion on 06/08/2015. 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 TTF-1 was negative. Chromogranin and CD 56 were both negative as well. ? Presents for ongoing oncologic management. ? Interim history: PET 06/28/2018: 1. A distinct nodular focus of increased glucose metabolism is manifest in the left upper posterior hemithorax pulmonary parenchyma, left upper lobe generating a calculated maximum standard uptake value of 2.8. The maximal axial diameter of the corresponding parenchymal density on review of CT of the thorax dated 06/28/18 is 12.1 mm (AP). ? 2. Focal increased glucose concentration is observed in the right posterior ilium generating a calculated maximum standard uptake value of 2.8. ? 3. There is an increase in FDG concentration noted in the left lower paramedian pelvic mesentery noncontiguous to intestinal tract generating a calculated maximum standard uptake value of 3.1. The maximal axial diameter of the corresponding metabolic, morphologic abnormality on review of CT of the pelvis dated 06/28/18 is 17.2 mm (transverse). ? 4. Mild increased FDG concentration is demonstrated in the left thoracic perihilum, infrahilar regions generating a calculated maximum standard uptake value of 1.6. Quantitative criteria for centrally located thoracic-viable neoplasm are not fulfilled. ? 5. Normal physiologic distribution of the radiopharmaceutical is apparent in the hepatic (3.0) and splenic parenchyma, both renal units, bladder and visualized intestinal tract. There is uniform distribution of the radiopharmaceutical concentration defined in the visualized cerebellar hemispheres and cerebral cortical structures.? Diffuse intestinal tract activity is noted throughout all four quadrants of the abdominal-pelvic retroperitoneum, mesentery consistent with normal physiologic distribution of the radiopharmaceutical. Prominent glucose metabolism is defined in the descending thoracic, as well as abdominal aorta. There is multifocal increased radiopharmaceutical concentration noted in the bilateral anterolateral chest wall contiguous to multiple ribs, linear in presentation oriented in the longitudinal plane. Uptake appears to correspond to trauma-visualized fracture on review of CT of the chest dated 06/28/18. Asymmetric increased glucose metabolism is manifest in the right upper posterior chest wall, which appears contiguous to the strap musculature most consistent with a component localized muscle tension artifact. ? Pertinent CT findings are as follows. CHEST: Emphysematous change is noted in the bilateral upper lung zones. There are no additional parenchymal densities-nodules noted in the right-left hemithorax demonstrating discernible, quantitatively significant increased glucose metabolism. Atherosclerotic calcification is defined in the thoracic aorta without evidence of dilatation, aneurysm formation. Coronary arterial calcification is observed. Svqs-Z-Srco-MediPort placement is noted. ABDOMEN AND PELVIS: Atherosclerotic calcification is defined in the abdominal aorta without evidence of dilatation, aneurysm formation. Pelvic arterial calcification is demonstrated. Calcified phlebolith formation is noted in the left lower hemipelvis. Colonic diverticulosis is defined. SKELETAL: Degenerative changes defined in the cervical, thoracic and lumbar spine demonstrate no evidence for glucose hypermetabolism. ? IMPRESSION: 1. ABNORMAL EXAMINATION INDICATIVE OF MALIGNANT VIABLE NEOPLASM. 2. Increased glucose concentration observed in the left upper hemithorax pulmonary parenchyma, left upper lobe fulfills quantitative criteria for viable neoplasm. 3. Enhanced FDG uptake noted in the right posterior ilium fulfills quantitative criteria for viable osseous neoplasm. 4. Facilitated radiopharmaceutical concentration defined in the left lower paramedian pelvic mesentery may be further investigated with CT of the pelvis with oral and intravenous contrast secondary to the quantitative degree of uptake. 5. Mild increased tracer uptake visualized in the left thoracic perihilum does not fulfill quantitative criteria for viable neoplasm. (Sheila et al, Journal of Clinical Oncology 16:2142, 1998). 6. Linear increased fluorine-labeled glucose metabolism noted in the bilateral anterolateral chest wall contiguous to rib is most consistent with activated leukocytes associated with trauma-fracture. 7. Prominent glucose concentration observed in the descending thoracic, as well as abdominal aorta is commensurate with activated leukocytes associated with atherosclerotic plaque formation. (Qi et al, Clinical Nuclear Medicine 29:93, 2003). ? Underwent CT-guided biopsy of the right iliac bone lesion on 07/06/2018. ? 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 See comment. ? ANTIBODY / CLONE RESULT CK8 (17yzmeA20) positive CK5-6 (D5 AND 1684) negative P40 (BC28) negative CD45 (RP2/18) negative CK7 (OV-TL12/30) negative CK20 (KS20.8) negative CD56 (123C3.D5) positive Chromo (LK2H10) positive Synapto (polyclonal) positive Current therapy:Carboplatin/Etoposide/tecentriq Began 07/19/18 It went well. Appetite:too good Energy level:fair Denies fevers. Mouth:denies sores Resp:I'm a little more sob denies cough, on O2@2-3L during the day 4L at night Cardiac:denies chest pain/palpitations GI:denies abd pain, n/v, moving bowels regularly :denies dysuria/hematuria Extrem:denies pain Neuro:occ. tingling to toes-had prior to treatment Skin:denies rashes Heme:denies bleeding The ROS is otherwise negative. Past medical history, appointments, medications, allergies reviewed. No changes. EXAM: BP 141/65 Pulse 81 Temp 36.9 ?C (98.5 ?F) (Oral) Wt 71.9 kg (158 lb 8 oz) BMI 26.65 kg/m? APPEARANCE Well appearing, alert, in no acute distress, well-hydrated, well nourished. MOUTH no mucositis HEART RRR with normal S1 and S2, no murmurs LUNG clear to auscultation although diminished throughout, on O2/NC LYMPH NODES No cervical lymphadenopathy, No supraclavicular lymphadenopathy and No axillary lymphadenopathy. ABDOMEN bowel sounds normoactive, soft, non-tender, non-distended, without organomegaly or palpable masses EXTREMITIES No edema NEURO Awake, alert and oriented x 3, Normal gait and No involuntary motions. SKIN Skin color, texture, turgor normal, no suspicious rashes or lesions LABS: Component Latest Ref Rng AND Units 07/13/2018 08/02/2018 WBC, [place] 3.70 - 11.00 k/uL 7.00 1.12 (L) RBC, [place] 4.20 - 6.00 m/uL 3.25 (L) 2.81 (L) Hemoglobin, [place] 13.0 - 17.0 g/dL 10.4 (L) 8.9 (L) Hematocrit, [place] 39.0 - 51.0 % 32.8 (L) 26.8 (L) MCV, [place] 80.0 - 100.0 fL 100.9 (H) 95.4 MCH, [place] 26.0 - 34.0 pg 32.0 31.7 MCHC, [place] 30.5 - 36.0 g/dL 31.7 33.2 RDW, [place] 11.5 - 15.0 % 13.3 12.4 Platelet Cnt, [place] 150 - 400 k/uL 264 23 (L) MPV, [place] 9.0 - 12.7 fL 8.9 (L) 9.7 Absol Gran Count 1.45 - 7.50 k/uL 5.61 0.10 (L) Absolute nRBC <0.01 k/uL Result checked and verified ASSESSMENT/PLAN: 1. Primary cancer of left upper lobe of lung (HCC) - ICD9: 162.3, ICD10: C34.12 Extensive stage small cell lung cancer. Per Dr. Murcia's previous note: Assessment: -In summary the patient is a 67-year-old male who has advanced oxygen-dependent COPD who was incidentally found to have a 1.3 cm squamous, non-small cell lung cancer when undergoing evaluation for traumatic rib fractures. -By mouth 1 expression was 0. -PET scan suggested small metastasis in the right iliac bone. Biopsy demonstrated small cell lung cancer. -I discussed the pathology personally with Dr. Jasso. The morphology and immunohistochemistry from the right iliac biopsy site are clearly diagnostic of small cell lung cancer. -I discussed with the patient and his the natural history, treated course, and prognosis of extensive stage small cell carcinoma. Also discussed the rationale, logistics, potential risks (including ), benefits and alternatives, as well as the personnel involved in the administration of atezolizumab/carboplatin/etoposide. I answered his questions in detail and he verbalized understanding and agreed with the recommended therapy. Please see the electronic consent document for details of doses and schedule. -Plan to re-evaluate with CT lung after 2 cycles and PET after 4 cycles. Plan: -Chemotherapy teaching. -Begin therapy next week. ? - Tolerated treatment symptomatically well. +anemia/neutropenia/thrombocytopenia. - Rx levaquin. - Pt. will have his INR checked on Thursday. - CBC on Thursday. - Follow up Thursday as scheduled. - Pt. aware to call office with any questions/concerns. The patient indicates understanding of these issues and agrees with the plan. Discussed case with Dr. Murcia who agrees with treatment plan. Gillian Holm, [employer] HAND.FIXED ROUTE BUS OPERATOR [place] ABS GR + CBC Collected: 08/02/2018 Status: F Source: [place] 1:37 PM [facility] REPOSITORY TYPE CODE TESTS RESULT OUT OF REFERENCE UNITS RANGE LAB WWBC 3.70-11.00 k/uL Low [place] WBC 1.12 LAB WRBC 4.20-6.00 m/uL Low [place] RBC 2.81 LAB WHGB 13.0-17.0 g/dL Low [place] Hemoglobin 8.9 LAB WHCT 39.0-51.0 % Low [place] Hematocrit 26.8 LAB WMCV 80.0-100.0 fL [place] MCV 95.4 LAB WMCH 26.0-34.0 pg [place] MCH 31.7 LAB WMCHC 30.5-36.0 g/dL [place] MCHC 33.2 LAB WRDW 11.5-15.0 % [place] RDW 12.4 LAB WPLT 150-400 k/uL Low [place] Platelet Cnt 23 LAB WMPV 9.0-12.7 fL [place] MPV 9.7 Result Comment: Test performed at: [address] [place] [address]. LAB ABGRAN 1.45-7.50 k/uL Low Absol Gran 0.10 Count LAB ABSNUC <0.01 k/uL Absolute nRBC Result checked and verified CNOVSP Observed: 08/02/2018 Status: COMPLETED Source: [place] 1:30 PM [facility] REPOSITORY Visit (SP) Office (DEB) JIGNESH RAMIRES ([id number]) 1950 M NFR Date Time Provider Department 08/02/18 1:30 PM GILLIAN HOLM During your visit today, we recorded the following information about you: Temperature Pulse Blood pressure Weight 98.5 degrees 81/minute 141/65 71.9 kg Sirena Velasco LPN 08/02/2018 2:10 PM Signed Est patient. Discuss recent labs. Sirena Holm APRN.FIXED ROUTE BUS OPERATOR 08/02/2018 2:55 PM Signed Chief Complaint Patient presents with: Established Patient HPI: Jignesh Ramires is a 67 year old male who presents here today for rita visit. Per Dr. Murcia's previous note: H/o hypertension, severe COPD (oxygen requiring) coronary artery disease, hyperlipidemia, peripheral vascular disease who was admitted to [facility] in April following a fall where he sustained rib fractures. ? He underwent a CT scan of the chest on 05/13/2018. He was found to have a spiculated nodule in the left upper lobe measuring 1.3 x 1.1 cm. Additionally there were nondisplaced fractures of the right anterior ribs 4 through 8. There was also evidence of nondisplaced left anterior fractures of the left ribs 3 through [address] scan the abdomen and pelvis done the same day showed prominent distention of the bladder with no other significant findings. ? Patient underwent a CT-guided biopsy of the spiculated left upper lobe lesion on 06/08/2015. 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 TTF-1 was negative. Chromogranin and CD 56 were both negative as well. ? Presents for ongoing oncologic management. ? Interim history: PET 06/28/2018: 1. A distinct nodular focus of increased glucose metabolism is manifest in the left upper posterior hemithorax pulmonary parenchyma, left upper lobe generating a calculated maximum standard uptake value of 2.8. The maximal axial diameter of the corresponding parenchymal density on review of CT of the thorax dated 06/28/18 is 12.1 mm (AP). ? 2. Focal increased glucose concentration is observed in the right posterior ilium generating a calculated maximum standard uptake value of 2.8. ? 3. There is an increase in FDG concentration noted in the left lower paramedian pelvic mesentery noncontiguous to intestinal tract generating a calculated maximum standard uptake value of 3.1. The maximal axial diameter of the corresponding metabolic, morphologic abnormality on review of CT of the pelvis dated 06/28/18 is 17.2 mm (transverse). ? 4. Mild increased FDG concentration is demonstrated in the left thoracic perihilum, infrahilar regions generating a calculated maximum standard uptake value of 1.6. Quantitative criteria for centrally located thoracic-viable neoplasm are not fulfilled. ? 5. Normal physiologic distribution of the radiopharmaceutical is apparent in the hepatic (3.0) and splenic parenchyma, both renal units, bladder and visualized intestinal tract. There is uniform distribution of the radiopharmaceutical concentration defined in the visualized cerebellar hemispheres and cerebral cortical structures.? Diffuse intestinal tract activity is noted throughout all four quadrants of the abdominal-pelvic retroperitoneum, mesentery consistent with normal physiologic distribution of the radiopharmaceutical. Prominent glucose metabolism is defined in the descending thoracic, as well as abdominal aorta. There is multifocal increased radiopharmaceutical concentration noted in the bilateral anterolateral chest wall contiguous to multiple ribs, linear in presentation oriented in the longitudinal plane. Uptake appears to correspond to trauma-visualized fracture on review of CT of the chest dated 06/28/18. Asymmetric increased glucose metabolism is manifest in the right upper posterior chest wall, which appears contiguous to the strap musculature most consistent with a component localized muscle tension artifact. ? Pertinent CT findings are as follows. CHEST: Emphysematous change is noted in the bilateral upper lung zones. There are no additional parenchymal densities-nodules noted in the right-left hemithorax demonstrating discernible, quantitatively significant increased glucose metabolism. Atherosclerotic calcification is defined in the thoracic aorta without evidence of dilatation, aneurysm formation. Coronary arterial calcification is observed. Qrjj-I-Vrwi-MediPort placement is noted. ABDOMEN AND PELVIS: Atherosclerotic calcification is defined in the abdominal aorta without evidence of dilatation, aneurysm formation. Pelvic arterial calcification is demonstrated. Calcified phlebolith formation is noted in the left lower hemipelvis. Colonic diverticulosis is defined. SKELETAL: Degenerative changes defined in the cervical, thoracic and lumbar spine demonstrate no evidence for glucose hypermetabolism. ? IMPRESSION: 1. ABNORMAL EXAMINATION INDICATIVE OF MALIGNANT VIABLE NEOPLASM. 2. Increased glucose concentration observed in the left upper hemithorax pulmonary parenchyma, left upper lobe fulfills quantitative criteria for viable neoplasm. 3. Enhanced FDG uptake noted in the right posterior ilium fulfills quantitative criteria for viable osseous neoplasm. 4. Facilitated radiopharmaceutical concentration defined in the left lower paramedian pelvic mesentery may be further investigated with CT of the pelvis with oral and intravenous contrast secondary to the quantitative degree of uptake. 5. Mild increased tracer uptake visualized in the left thoracic perihilum does not fulfill quantitative criteria for viable neoplasm. (Sheila et al, Journal of Clinical Oncology 16:2142, 1998). 6. Linear increased fluorine-labeled glucose metabolism noted in the bilateral anterolateral chest wall contiguous to rib is most consistent with activated leukocytes associated with trauma-fracture. 7. Prominent glucose concentration observed in the descending thoracic, as well as abdominal aorta is commensurate with activated leukocytes associated with atherosclerotic plaque formation. (Qi yan al, Clinical Nuclear Medicine 29:93, 2004). ? Underwent CT-guided biopsy of the right iliac bone lesion on 07/06/2018. ? 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 See comment. ? ANTIBODY / CLONE RESULT CK8 (86mkdkD13) positive CK5-6 (D5 AND 1684) negative P40 (BC28) negative CD45 (RP2/18) negative CK7 (OV-TL12/30) negative CK20 (KS20.8) negative CD56 (123C3.D5) positive Chromo (LK2H10) positive Synapto (polyclonal) positive Current therapy:Carboplatin/Etoposide/tecentriq Began 07/19/18 It went well. Appetite:too good Energy level:fair Denies fevers. Mouth:denies sores Resp:I'm a little more sob denies cough, on O2@2-3L during the day 4L at night Cardiac:denies chest pain/palpitations GI:denies abd pain, n/v, moving bowels regularly :denies dysuria/hematuria Extrem:denies pain Neuro:occ. tingling to toes-had prior to treatment Skin:denies rashes Heme:denies bleeding The ROS is otherwise negative. Past medical history, appointments, medications, allergies reviewed. No changes. EXAM: BP 141/65 Pulse 81 Temp 36.9 ?C (98.5 ?F) (Oral) Wt 71.9 kg (158 lb 8 oz) BMI 26.65 kg/m? APPEARANCE Well appearing, alert, in no acute distress, well- hydrated, well nourished. MOUTH no mucositis HEART RRR with normal S1 and S2, no murmurs LUNG clear to auscultation although diminished throughout, on O2/NC LYMPH NODES No cervical lymphadenopathy, No supraclavicular lymphadenopathy and No axillary lymphadenopathy. ABDOMEN bowel sounds normoactive, soft, non-tender, non-distended, without organomegaly or palpable masses EXTREMITIES No edema NEURO Awake, alert and oriented x 3, Normal gait and No involuntary motions. SKIN Skin color, texture, turgor normal, no suspicious rashes or lesions LABS: Component Latest Ref Rng AND Units 07/13/2018 08/02/2018 WBC, [place] 3.70 - 11.00 k/uL 7.00 1.12 (L) RBC, [place] 4.20 - 6.00 m/uL 3.25 (L) 2.81 (L) Hemoglobin, [place] 13.0 - 17.0 g/dL 10.4 (L) 8.9 (L) Hematocrit, [place] 39.0 - 51.0 % 32.8 (L) 26.8 (L) MCV, [place] 80.0 - 100.0 fL 100.9 (H) 95.4 MCH, [place] 26.0 - 34.0 pg 32.0 31.7 MCHC, [place] 30.5 - 36.0 g/dL 31.7 33.2 RDW, [place] 11.5 - 15.0 % 13.3 12.4 Platelet Cnt, [place] 150 - 400 k/uL 264 23 (L) MPV, [place] 9.0 - 12.7 fL 8.9 (L) 9.7 Absol Gran Count 1.45 - 7.50 k/uL 5.61 0.10 (L) Absolute nRBC <0.01 k/uL Result checked and verified ASSESSMENT/PLAN: 1. Primary cancer of left upper lobe of lung (HCC) - ICD9: 162.3, ICD10: C34.12 Extensive stage small cell lung cancer. Per Dr. Murcia's previous note: Assessment: -In summary the patient is a 67-year-old male who has advanced oxygen-dependent COPD who was incidentally found to have a 1.3 cm squamous, non-small cell lung cancer when undergoing evaluation for traumatic rib fractures. -By mouth 1 expression was 0. -PET scan suggested small metastasis in the right iliac bone. Biopsy demonstrated small cell lung cancer. -I discussed the pathology personally with Dr. Jasso. The morphology and immunohistochemistry from the right iliac biopsy site are clearly diagnostic of small cell lung cancer. -I discussed with the patient and his the natural history, treated course, and prognosis of extensive stage small cell carcinoma. Also discussed the rationale, logistics, potential risks (including ), benefits and alternatives, as well as the personnel involved in the administration of atezolizumab/carboplatin/etoposide. I answered his questions in detail and he verbalized understanding and agreed with the recommended therapy. Please see the electronic consent document for details of doses and schedule. -Plan to re-evaluate with CT lung after 2 cycles and PET after 4 cycles. Plan: -Chemotherapy teaching. -Begin therapy next week. ? - Tolerated treatment symptomatically well. +anemia/neutropenia/thrombocytopenia. - Rx levaquin. - Pt. will have his INR checked on Thursday. - CBC on Thursday. - Follow up Thursday as scheduled. - Pt. aware to call office with any questions/concerns. The patient indicates understanding of these issues and agrees with the plan. Discussed case with Dr. Murcia who agrees with treatment plan. Gillian Holm APRN.FIXED ROUTE BUS OPERATOR Referring Provider: BEN MURCIA [[id number]] Allergies As of Date: 08/02/2018 (No Known Allergies) Date Reviewed: 08/02/2018 Reviewed by: Gillian Holm - Fully Assessed Reason for Visit: Established Patient [175] Primary Visit Diagnosis:Primary cancer of left upper lobe of lung (HCC) [C34.12] Order(s):levoFLOXacin (LEVAQUIN) 500 mg tabletTake by mouth for 5 days.Disp: 5 tabletRfl: 0 potassium chloride ER (K-DUR, KLOR-CON) 20 mEq tabletTake 1 tablet by mouth once daily.Disp: Rfl: Follow-up and Disposition History Recorded Prescriptions as of 08/02/2018 Sig: ALBUTEROL SULFATE CONCENTRATE* Use 0.5 mL via nebulizer ever* ALBUTEROL SULFATE HFA 90 MCG/* Inhale 2 Puffs as instructed * ASPIRIN 81 MG TABLET,DELAYED * Take 1 tablet by mouth once d* Patient taking differently: Take 1 mg by mouth once daily* ATORVASTATIN 40 MG TABLET Take 40 mg by mouth once wilian* BUDESONIDE-FORMOTEROL HFA 160* Inhale 2 Puffs as instructed * CARVEDILOL 6.25 MG TABLET Take 6.25 mg by mouth twice d* CHOLECALCIFEROL (VITAMIN D3) * Taking 1000 IU 800 am and 800* Patient taking differently: 1,000 Units twice daily. Taki* COMPOUNDED PRESCRIPTION 2L of O2 at night. Length of* Patient taking differently: 3L of O2 Length of need 99 mo* FLUTICASONE 50 MCG/ACTUATION * Use 1 [place] in each nostril o* FUROSEMIDE 40 MG TABLET Take 2 tablets by mouth once * HYDROXYCHLOROQUINE 200 MG TAB* Take 1 tablet by mouth twice * LEVOTHYROXINE 25 MCG TABLET Take 1 tablet by mouth once d* LOSARTAN 50 MG TABLET Take 25 mg by mouth once wilian* OMEPRAZOLE 40 MG CAPSULE,MARÍA* Take 1 capsule by mouth once * ONDANSETRON HCL 8 MG TABLET Take 1 tablet by mouth every * OXYGEN (HOME THERAPY) by Nasal Cannula route as dir* ACLIDINIUM BROMIDE 400 MCG/AC* Inhale 1 Inhalation as instru* Patient not taking: Reported on 07/12/2018 COMPOUNDED PRESCRIPTION Please enroll in pulmonary re* COMPOUNDED PRESCRIPTION 1 Units four times daily as n* COMPOUNDED PRESCRIPTION Nebulizer, Mask, AND O2 Tubing.* COMPOUNDED PRESCRIPTION Please perform nocturnal oxim* COMPOUNDED PRESCRIPTION Please provide disability monika* COMPOUNDED PRESCRIPTION Please perform nocturnal puls* COMPOUNDED PRESCRIPTION Please perform nocturnal puls* LEVOFLOXACIN 500 MG TABLET Take by mouth for 5 days. POTASSIUM CHLORIDE ER 20 MEQ * Take 1 tablet by mouth once d* WARFARIN 5 MG TABLET Take 5 mg by mouth daily as d* Medication notes this encounter ASPIRIN 81 MG TABLET,DELAYED RELEASE >> Sirena Velasco LPN 08/02/2018 1:41 PM >> SIRENA VELASCO LPN ThuAug 02, 2018 1:41 PM Every other day FUROSEMIDE 40 MG TABLET >> Sirena Velasco LPN 08/02/2018 1:42 PM >> SIRENA VELASCO LPN ThuAug 02, 2018 1:42 PM Taking one tablet twice a day WARFARIN 5 MG TABLET >> Sirena Velasco LPN 08/02/2018 1:43 PM >> SIRENA VELASCO LPN ThuAug 02, 2018 1:43 PM 5 mg once a day except 7.5 mg Problem List As Of Date 08/02/2018 Noted Resolved DYSMETABOLIC SYNDROME X [E88.81] INVALID FOR* OBST CHRON BRONCHITIS WITH EXAC [J44.1] INVALID FOR*06/21/2018 Tobacco use disorder [F17.200] INVALID FOR*01/09/2016 Obstructive chronic bronchitis [J44.9] INVALID FOR* Arthritis of hand, 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] INVALID FOR* Psoriatic arthritis (HCC) [L40.50] INVALID FOR* Psoriasis [L40.9] INVALID FOR* Benign non-nodular prostatic hyperplasia with l*INVALID FOR* Encounter for long-term (current) use of medica*INVALID FOR* Hypothyroidism [E03.9] INVALID FOR* Venous stasis dermatitis of right lower extremi*INVALID FOR* 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] INVALID FOR* CHF (congestive heart failure) (HCC) [I50.9] Cardiomyopathy (HCC) [I42.9] ICD (implantable cardioverter-defibrillator) in* Moderate to severe pulmonary hypertension (HCC)*INVALID FOR* Anemia [D64.9] 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 *INVALID FOR* Gastroesophageal reflux disease [K21.9] INVALID FOR* Heavy alcohol use [Z78.9] INVALID FOR* Right rib fracture [S22.31XA] INVALID FOR* Acute respiratory failure (HCC) [J96.00] INVALID FOR*06/21/2018 Coronary arteriosclerosis in [place]on artery [I25*INVALID FOR* Chronic obstructive pulmonary disease with acut*INVALID FOR* Chronic respiratory failure (HCC) [J96.10] INVALID FOR* Severe chronic obstructive pulmonary disease (H*INVALID FOR* Diverticulosis of colon [K57.30] INVALID FOR* Dyspnea, unspecified [R06.00] INVALID FOR* Hyperlipidemia [E78.5] INVALID FOR* History of cardiac catheterization [Z98.890] INVALID FOR* Peripheral vascular disease (HCC) [I73.9] INVALID FOR* Solitary pulmonary nodule on lung CT [R91.1] INVALID FOR* More... Primary cancer of left upper lobe of lung (HCC)*INVALID FOR* Small cell lung cancer (HCC) [C34.90] INVALID FOR* Bone metastases (HCC) [C79.51] INVALID FOR* Hyponatremia [E87.1] INVALID FOR* Visit Notes: >> Sirena Velasco LPN Mon Aug 02, 2018 1:43 PM Status: Signed Est patient. Discuss recent labs. Sirena Velasco LPN Encounter Status:Closed by GILLIAN HOLM CNP on 08/02/18 PROTHROMBIN TIME W/INR Collected: 07/29/2018 Status: F Source: [place] 5:58 AM [facility] REPOSITORY TYPE CODE TESTS RESULT OUT OF RANGE REFERENCE UNITS LAB L300.4150 11.7-14.9 SECONDS High PROTIME 21.9 LAB L300.4200 Normal INR 1.9 Performed By: #### L300.3900 #### [facility] [address] [place], [address] BASIC METABOLIC Collected: 07/29/2018 Status: F Source: [place] PROFILE (BMP) 5:57 AM [facility] REPOSITORY Order Comment: Comments: Send to Jose Maurer Comments: Send to Jose Maurer TYPE CODE TESTS RESULT OUT OF RANGE REFERENCE UNITS LAB L501.0100 74-106 mg/dL Normal GLU 100 Result Comment: Fasting Glucose result from 100 to 125 mg/dL suggests IMPAIRED HOMEOSTASIS per A.D.A. criteria. Please note revised GLUCOSE reference range effective 2017. LAB L501.1000 7-18 mg/dL Normal BUN 15 LAB L501.1100 0.70-1.30 mg/dL Normal CREAT,SERUM 0.80 Result Comment: The validity of the calculated GFR AND GFRAA in patients over 70 years has not been determined. Clinical correlation is essential. LAB L501.1110 >60 mL/min Normal EST GFR 102 Result Comment: Non- GFR Calc LAB L501.1115 >60 mL/min Normal EST GFR - AA 123 Result Comment: GFR Calc LAB L501.1300 10-20 RATIO Normal BUN/CRE 18.6 LAB L501.2200 8.5-10.1 mg/dL Low CA 7.6 LAB L501.5300 136-145 mmol/L NA Normal 136 LAB L501.5600 3.5-5.1 mmol/L Low K 3.4 LAB L501.5900 98-107 mmol/L Low CL 89 LAB L501.6100 21.0-32.0 mmol/L High CO2 40.0 LAB L501.6200 5-15 Normal GAP 7 Performed By: #### L500.2500 #### [facility] [address] [place], [address] PACEMAKER CHECK Observed: 07/28/2018 Status: F Source: [place] 1:47 PM [facility] REPOSITORY [facility] [address] [place] [address] Pacemaker Check Date of Service: 07/27/18 0824 MR#: [id number] Acct: [id number] Name: JIGNESH RAMIRES Rep #: [id number] : 1950 From: Shanelle August Age/Sex: 67/M [place] [facility] [place] Status: Signed Billing Codes ICD Device Billing: ICD Dev Interrogate (Rmt) 07/27/18 0825 <Electronically signed by Shanelle August > Date Shanelle August 07/28/18 1347<Electronically signed by Case Florian MD> Cosigner Signature: Date (if applicable) Case Florian MD CC: BASIC METABOLIC Collected: 07/22/2018 Status: F Source: [place] PROFILE ([facility]) 6:01 AM [facility] REPOSITORY TYPE CODE TESTS RESULT OUT OF RANGE REFERENCE UNITS LAB L501.0100 74-106 mg/dL High GLU 112 Result Comment: Fasting Glucose result from 100 to 125 mg/dL suggests IMPAIRED HOMEOSTASIS per A.D.A. criteria. Please note revised GLUCOSE reference range effective 2017. LAB L501.1000 7-18 mg/dL Normal BUN 14 LAB L501.1100 0.70-1.30 mg/dL Normal CREAT,SERUM 0.82 Result Comment: The validity of the calculated GFR AND GFRAA in patients over 70 years has not been determined. Clinical correlation is essential. LAB L501.1110 >60 mL/min Normal EST GFR 100 Result Comment: Non- GFR Calc LAB L501.1115 >60 mL/min Normal EST GFR - AA 121 Result Comment: GFR Calc LAB L501.1300 10-20 RATIO Normal BUN/CRE 17.1 LAB L501.2200 8.5-10.1 mg/dL CA Normal 8.7 LAB L501.5300 136-145 mmol/L Low NA 134 LAB L501.5600 3.5-5.1 mmol/L K Normal 3.8 LAB L501.5900 98-107 mmol/L Low CL 89 LAB L501.6100 21.0-32.0 mmol/L High CO2 42.0 LAB L501.6200 5-15 Low GAP 3 Performed By: #### L500.2500 #### [facility] [address] [place], [address] PROTHROMBIN TIME W/INR Collected: 07/22/2018 Status: F Source: [place] 6:01 AM [facility] REPOSITORY Order Comment: Comments: STANDING ORDER: pt needs fingerstick, chemo pt Comments: STANDING ORDER TYPE CODE TESTS RESULT OUT OF RANGE REFERENCE UNITS LAB L300.4150 11.7-14.9 SECONDS High PROTIME 17.2 LAB L300.4200 Normal INR 1.4 Performed By: #### L300.3900 #### [facility] [address] [place], [address] BASIC METABOLIC PANL Collected: 07/20/2018 Status: F Source: [place] 9:29 AM [facility] REPOSITORY TYPE CODE TESTS RESULT OUT OF REFERENCE UNITS RANGE LAB GLU 74-99 mg/dL Glucose 86 LAB BUN 9-24 mg/dL BUN 12 LAB CRET 0.73-1.22 mg/dL Low Creatinine 0.60 LAB NA 136-144 mmol/L Low Sodium 133 LAB K 3.7-5.1 mmol/L Potassium 3.8 LAB CL 97-105 mmol/L Low Chloride 92 LAB CO2 22-30 mmol/L CO2 High 32 LAB AGAP 9-18 mmol/L Anion Gap 9 LAB CA 8.5-10.2 mg/dL Calcium, Total 9.3 LAB GFRAA eGFR- >60 Amer. LAB GFRNAA . eGFR-All Other Races >60 Result Comment: eGFR (Estimated GFR) Units of measure: mL/min/1.73 meters squared eGFR is derived from the reexpressed MDRD Study equation using the following parameters: serum creatinine, age, gender and race. The creatinine assay has been calibrated to be traceable to IDMS. An eGFR <60 mL/min/1.73m2 for >3 months is consistent with chronic kidney disease. Refer to KDOQI guidelines for clinical interpretation. In patients with unstable renal function, e.g. those with acute kidney injury, the eGFR may not accurately reflect actual GFR. RAFY Observed: 07/20/2018 Status: COMPLETED Source: [place] 12:00 AM [facility] REPOSITORY Telephone (MIQ) IKEIJGNESH ([id number]) 1950 M NFR Date Time Provider Department 07/20/18 BEN MURCIA MIQ During your visit today, we recorded the following information about you: Ghazal Schaeffer 07/20/2018 11:57 AM Signed Patient called in and said he will be able to make the 10:30 treatment time on 07/21 Andreia Gunderson 07/20/2018 12:07 PM Signed This time has been noted in patient's appointment notes by the chemo nurse. Thank you Andreia Cornejo Psr Allergies As of Date: 07/20/2018 (No Known Allergies) Date Reviewed: 07/19/2018 Reviewed by: Venancio (Rn) JANIE Kelly - Fully Assessed Reason for Visit: Appointment Confirmation [[id number]] Prescriptions as of 07/20/2018 Sig: ONDANSETRON HCL 8 MG TABLET Take 1 tablet by mouth every * FUROSEMIDE 40 MG TABLET Take 0.5 tablets by mouth onc* Patient taking differently: Take 40 mg by mouth once wilian* CHOLECALCIFEROL (VITAMIN D3) * Taking 1000 IU 800 am and 800* Patient taking differently: 1,000 Units twice daily. Taki* HYDROXYCHLOROQUINE 200 MG TAB* Take 1 tablet by mouth twice * LEVOTHYROXINE 25 MCG TABLET Take 1 tablet by mouth once d* OMEPRAZOLE 40 MG CAPSULE,MARÍA* Take 1 capsule by mouth once * FLUTICASONE 50 MCG/ACTUATION * Use 1 [place] in each nostril o* ATORVASTATIN 40 MG TABLET Take 40 mg by mouth once wilian* CARVEDILOL 6.25 MG TABLET Take 6.25 mg by mouth twice d* WARFARIN 5 MG TABLET Take 5 mg by mouth daily as d* OXYGEN (HOME THERAPY) by Nasal Cannula route as dir* LOSARTAN 50 MG TABLET Take 25 mg by mouth once wilian* COMPOUNDED PRESCRIPTION Please perform nocturnal puls* COMPOUNDED PRESCRIPTION Please perform nocturnal puls* ALBUTEROL SULFATE CONCENTRATE* Use 0.5 mL via nebulizer ever* COMPOUNDED PRESCRIPTION Please perform nocturnal oxim* COMPOUNDED PRESCRIPTION Please provide disability monika* COMPOUNDED PRESCRIPTION 1 Units four times daily as n* COMPOUNDED PRESCRIPTION Nebulizer, Mask, AND O2 Tubing.* BUDESONIDE-FORMOTEROL HFA 160* Inhale 2 Puffs as instructed * ALBUTEROL SULFATE HFA 90 MCG/* Inhale 2 Puffs as instructed * ACLIDINIUM BROMIDE 400 MCG/AC* Inhale 1 Inhalation as instru* Patient not taking: Reported on 07/12/2018 ASPIRIN 81 MG TABLET,DELAYED * Take 1 tablet by mouth once d* Patient taking differently: Take 1 mg by mouth once daily* COMPOUNDED PRESCRIPTION 2L of O2 at night. 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] INVALID FOR* Psoriatic arthritis (HCC) [L40.50] INVALID FOR* Psoriasis [L40.9] INVALID FOR* Benign non-nodular prostatic hyperplasia with l*INVALID FOR* Encounter for long-term (current) use of medica*INVALID FOR* Hypothyroidism [E03.9] INVALID FOR* Venous stasis dermatitis of right lower extremi*INVALID FOR* 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] INVALID FOR* CHF (congestive heart failure) (HCC) [I50.9] Cardiomyopathy (HCC) [I42.9] ICD (implantable cardioverter-defibrillator) in* Moderate to severe pulmonary hypertension (HCC)*INVALID FOR* Anemia [D64.9] 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 *INVALID FOR* Gastroesophageal reflux disease [K21.9] INVALID FOR* Heavy alcohol use [Z78.9] INVALID FOR* Right rib fracture [S22.31XA] INVALID FOR* Acute respiratory failure (HCC) [J96.00] INVALID FOR*06/21/2018 Coronary arteriosclerosis in [place] artery [I25*INVALID FOR* Chronic obstructive pulmonary disease with acut*INVALID FOR* Chronic respiratory failure (HCC) [J96.10] INVALID FOR* Severe chronic obstructive pulmonary disease (H*INVALID FOR* Diverticulosis of colon [K57.30] INVALID FOR* Dyspnea, unspecified [R06.00] INVALID FOR* Hyperlipidemia [E78.5] INVALID FOR* History of cardiac catheterization [Z98.890] INVALID FOR* Peripheral vascular disease (HCC) [I73.9] INVALID FOR* Solitary pulmonary nodule on lung CT [R91.1] INVALID FOR* More... Primary cancer of left upper lobe of lung (HCC)*INVALID FOR* Small cell lung cancer (HCC) [C34.90] INVALID FOR* Bone metastases (HCC) [C79.51] INVALID FOR* Encounter Status:Closed by GHAZAL SCHAEFFER on 07/20/18 PROGRESS Observed: 07/19/2018 Status: COMPLETED Source: [place] 1:45 PM [facility] REPOSITORY HNO ID: [id number] Author: Smitha Gannon (Sw) Service: (none) Author Type: Emergency Department Aide Type: Progress Notes Filed: 07/19/2018 1:46 PM Note Text: Social Work Problem Referral Note INFORMATION/REFERRAL : Jignesh Ramires 67 year old male was referred by patient and family - [facility]a [facility] for the following reason(s): Advance Directive - Living Will, DPAHC, DNR PERSONS INTERVIEWED: patient and family - Name: Ryena INTERVENTION: Information AND Referral Service Co-ordination Affect/Mood: The patient is noted as appropriate IDENTIFIED PROBLEMS/NEEDS: Advance Directives Intervention/Referral to be provided:No further intervention required IMPRESSION/PLAN: MITZY met with patient and his spouse to review current Advance Directives. Patient noted that these were not currently accurate due to phone number/address changes. MITZY recommended that he complete new Advance Directives and he was agreeable. Documents completed and copy sent to scanning. F/U APPOINTMENT: DROY Marquez CNOVSP Observed: 07/19/2018 Status: COMPLETED Source: [place] 9:30 AM [facility] REPOSITORY Visit (SP) Office (DEB) JIGNESH RAMIRES ([id number]) 1950 M NFR Date Time Provider Department 07/19/18 9:30 AM TREATMENT RM 5 YASH [facility] During your visit today, we recorded the following information about you: Temperature Pulse Blood pressure Weight 97.8 degrees 96/minute 123/68 68.7 kg Height 1.642 m Referring Provider: BEN MURCIA [[id number]] Allergies As of Date: 07/19/2018 (No Known Allergies) Date Reviewed: 07/19/2018 Reviewed by: Venancio (Rn) JANIE Kelly - Fully Assessed Reason for Visit: Chemotherapy Treatment [771] Primary Visit Diagnosis:Small cell lung cancer (HCC) [C34.90] Other Visit Diagnoses:Bone metastases (HCC) [C79.51] Primary cancer of left upper lobe of lung (HCC) [C34.12] Encounter for antineoplastic chemotherapy and immunotherapy [Z51.11, Z51.12] Order(s):TREATMENT PARAMETERS [[id number]] Order #: [id number]: 1 HEMONC NURSING COMMUNICATION [[id number]] Order #: [id number]: 1 HEMONC CARBO CALCULATION [[id number]] Order #: [id number]: 1 STANDING HEMONC COMMUNICATION ORDER [[id number]] Order #: [id number]: 1 HEMONC NURSING COMMUNICATION [[id number]] Order #: [id number]: 1 STANDING [] ondansetron (PF) 8 mg injection (ZOFRAN)Disp: Rfl: [] dexamethasone 10 mg/NS 50 mL (PYXIS) 10 mg ivpbDisp: Rfl: [] CARBOplatin 525 mg in NaCl 0.9% 250 mL (PARAPLATIN)Disp: Rfl: [] etoposide 178 mg in NaCl 0.9% 500 mLDisp: Rfl: [] atezolizumab 1,200 mg in NaCl 0.9% 250 mL (TECENTRIQ)Disp: Rfl: NaCl 0.9% iv infusionDisp: Rfl: diphenhydrAMINE 50 mg injection (BENADRYL)Disp: Rfl: hydrocortisone sodium succinate (PF) 100 mg injection (Solu-CORTEF)Disp: Rfl: EPINEPHrine 1 mg/mL (1 mL) 0.3 mg injectionDisp: Rfl: Prescriptions as of 07/19/2018 Sig: FUROSEMIDE 40 MG TABLET Take 0.5 tablets by mouth onc* Patient taking differently: Take 40 mg by mouth once wilian* CHOLECALCIFEROL (VITAMIN D3) * Taking 1000 IU 800 am and 800* Patient taking differently: 1,000 Units twice daily. Taki* HYDROXYCHLOROQUINE 200 MG TAB* Take 1 tablet by mouth twice * LEVOTHYROXINE 25 MCG TABLET Take 1 tablet by mouth once d* OMEPRAZOLE 40 MG CAPSULE,MARÍA* Take 1 capsule by mouth once * FLUTICASONE 50 MCG/ACTUATION * Use 1 [place] in each nostril o* ATORVASTATIN 40 MG TABLET Take 40 mg by mouth once wilian* CARVEDILOL 6.25 MG TABLET Take 6.25 mg by mouth twice d* LOSARTAN 50 MG TABLET Take 25 mg by mouth once wilian* ALBUTEROL SULFATE CONCENTRATE* Use 0.5 mL via nebulizer ever* COMPOUNDED PRESCRIPTION 1 Units four times daily as n* COMPOUNDED PRESCRIPTION Nebulizer, Mask, AND O2 Tubing.* BUDESONIDE-FORMOTEROL HFA 160* Inhale 2 Puffs as instructed * ALBUTEROL SULFATE HFA 90 MCG/* Inhale 2 Puffs as instructed * ASPIRIN 81 MG TABLET,DELAYED * Take 1 tablet by mouth once d* Patient taking differently: Take 1 mg by mouth once daily* COMPOUNDED PRESCRIPTION 2L of O2 at night. Length of* Patient taking differently: 3L of O2 Length of need 99 mo* ONDANSETRON HCL 8 MG TABLET Take 1 tablet by mouth every * WARFARIN 5 MG TABLET Take 5 mg by mouth daily as d* OXYGEN (HOME THERAPY) by Nasal Cannula route as dir* COMPOUNDED PRESCRIPTION Please perform nocturnal puls* COMPOUNDED PRESCRIPTION Please perform nocturnal puls* COMPOUNDED PRESCRIPTION Please perform nocturnal oxim* COMPOUNDED PRESCRIPTION Please provide disability monika* ACLIDINIUM BROMIDE 400 MCG/AC* Inhale 1 Inhalation as instru* Patient not taking: Reported on 07/12/2018 COMPOUNDED PRESCRIPTION Please enroll in pulmonary re* Medication notes this encounter WARFARIN 5 MG TABLET >> Venancio Shell, RN, RN 07/19/2018 9:40 AM >> VENANCIO KELLY Jul 19, 2018 9:40 AM currently 5 mg daily Problem List As Of Date 07/19/2018 Noted Resolved DYSMETABOLIC SYNDROME X [E88.81] INVALID FOR* OBST CHRON BRONCHITIS WITH EXAC [J44.1] INVALID FOR*06/21/2018 Tobacco use disorder [F17.200] INVALID FOR*01/09/2016 Obstructive chronic bronchitis [J44.9] INVALID FOR* Arthritis of hand, 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] INVALID FOR* Psoriatic arthritis (HCC) [L40.50] INVALID FOR* Psoriasis [L40.9] INVALID FOR* Benign non-nodular prostatic hyperplasia with l*INVALID FOR* Encounter for long-term (current) use of medica*INVALID FOR* Hypothyroidism [E03.9] INVALID FOR* Venous stasis dermatitis of right lower extremi*INVALID FOR* 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] INVALID FOR* CHF (congestive heart failure) (HCC) [I50.9] Cardiomyopathy (HCC) [I42.9] ICD (implantable cardioverter-defibrillator) in* Moderate to severe pulmonary hypertension (HCC)*INVALID FOR* Anemia [D64.9] INVALID FOR* assisted current use of anticoagulant therapy *INVALID FOR* Gastroesophageal reflux disease [K21.9] INVALID FOR* Heavy alcohol use [Z78.9] INVALID FOR* Right rib fracture [S22.31XA] INVALID FOR* Acute respiratory failure (HCC) [J96.00] INVALID FOR*06/21/2018 Coronary arteriosclerosis in benton artery [I25*INVALID FOR* Chronic obstructive pulmonary disease with acut*INVALID FOR* Chronic respiratory failure (HCC) [J96.10] INVALID FOR* Severe chronic obstructive pulmonary disease (H*INVALID FOR* Diverticulosis of colon [K57.30] INVALID FOR* Dyspnea, unspecified [R06.00] INVALID FOR* Hyperlipidemia [E78.5] INVALID FOR* History of cardiac catheterization [Z98.890] INVALID FOR* Peripheral vascular disease (HCC) [I73.9] INVALID FOR* Solitary pulmonary nodule on lung CT [R91.1] INVALID FOR* More... Primary cancer of left upper lobe of lung (HCC)*INVALID FOR* Small cell lung cancer (HCC) [C34.90] INVALID FOR* Bone metastases (HCC) [C79.51] INVALID FOR* Encounter Status:Closed by VENANCIO KELLY on 07/19/18 TESSAW Observed: 07/19/2018 Status: COMPLETED Source: [place] 12:00 AM [facility] Social Work (HEMFRANC) JIGNESH RAMIRES ([id number]) 1950 M NFR Date Time Provider Department 07/19/18 SMITHA GANNON) DEB During your visit today, we recorded the following information about you: DORY Durant 07/19/2018 1:46 PM Signed Social Work Problem Referral Note INFORMATION/REFERRAL : Jignesh Rmaires 67 year old male was referred by patient and family - Name: Reyna spouse to [facility] Social Work for the following reason(s): Advance Directive - Living Will, DPAHC, DNR PERSONS INTERVIEWED: patient and family - Name: Reyna INTERVENTION: Information AND Referral Service Co-ordination Affect/Mood: The patient is noted as appropriate IDENTIFIED PROBLEMS/NEEDS: Advance Directives Intervention/Referral to be provided:No further intervention required IMPRESSION/PLAN: MITZY met with patient and his spouse to review current Advance Directives. Patient noted that these were not currently accurate due to phone number/address changes. SW recommended that he complete new Advance Directives and he was agreeable. Documents completed and copy sent to scanning. F/U APPOINTMENT: DORY Marquez Allergies As of Date: 07/19/2018 (No Known Allergies) Date Reviewed: 07/19/2018 Reviewed by: Venancio (Rn) JANIE Kelly - Fully Assessed Reason for Visit: Social Work Services [507] Prescriptions as of 07/19/2018 Sig: ONDANSETRON HCL 8 MG TABLET Take 1 tablet by mouth every * FUROSEMIDE 40 MG TABLET Take 0.5 tablets by mouth onc* Patient taking differently: Take 40 mg by mouth once wilian* CHOLECALCIFEROL (VITAMIN D3) * Taking 1000 IU 800 am and 800* Patient taking differently: 1,000 Units twice daily. Taki* HYDROXYCHLOROQUINE 200 MG TAB* Take 1 tablet by mouth twice * LEVOTHYROXINE 25 MCG TABLET Take 1 tablet by mouth once d* OMEPRAZOLE 40 MG CAPSULE,MARÍA* Take 1 capsule by mouth once * FLUTICASONE 50 MCG/ACTUATION * Use 1 [place] in each nostril o* ATORVASTATIN 40 MG TABLET Take 40 mg by mouth once wilian* CARVEDILOL 6.25 MG TABLET Take 6.25 mg by mouth twice d* WARFARIN 5 MG TABLET Take 5 mg by mouth daily as d* OXYGEN (HOME THERAPY) by Nasal Cannula route as dir* LOSARTAN 50 MG TABLET Take 25 mg by mouth once wilian* COMPOUNDED PRESCRIPTION Please perform nocturnal puls* COMPOUNDED PRESCRIPTION Please perform nocturnal puls* ALBUTEROL SULFATE CONCENTRATE* Use 0.5 mL via nebulizer ever* COMPOUNDED PRESCRIPTION Please perform nocturnal oxim* COMPOUNDED PRESCRIPTION Please provide disability monika* COMPOUNDED PRESCRIPTION 1 Units four times daily as n* COMPOUNDED PRESCRIPTION Nebulizer, Mask, AND O2 Tubing.* BUDESONIDE-FORMOTEROL HFA 160* Inhale 2 Puffs as instructed * ALBUTEROL SULFATE HFA 90 MCG/* Inhale 2 Puffs as instructed * ACLIDINIUM BROMIDE 400 MCG/AC* Inhale 1 Inhalation as instru* Patient not taking: Reported on 07/12/2018 ASPIRIN 81 MG TABLET,DELAYED * Take 1 tablet by mouth once d* Patient taking differently: Take 1 mg by mouth once daily* COMPOUNDED PRESCRIPTION 2L of O2 at night. 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] INVALID FOR* Psoriatic arthritis (HCC) [L40.50] INVALID FOR* Psoriasis [L40.9] INVALID FOR* Benign non-nodular prostatic hyperplasia with l*INVALID FOR* Encounter for long-term (current) use of medica*INVALID FOR* Hypothyroidism [E03.9] INVALID FOR* Venous stasis dermatitis of right lower extremi*INVALID FOR* 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] INVALID FOR* CHF (congestive heart failure) (HCC) [I50.9] Cardiomyopathy (HCC) [I42.9] ICD (implantable cardioverter-defibrillator) in* Moderate to severe pulmonary hypertension (HCC)*INVALID FOR* Anemia [D64.9] 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 *INVALID FOR* Gastroesophageal reflux disease [K21.9] INVALID FOR* Heavy alcohol use [Z78.9] INVALID FOR* Right rib fracture [S22.31XA] INVALID FOR* Acute respiratory failure (HCC) [J96.00] INVALID FOR*06/21/2018 Coronary arteriosclerosis in benton artery [I25*INVALID FOR* Chronic obstructive pulmonary disease with acut*INVALID FOR* Chronic respiratory failure (HCC) [J96.10] INVALID FOR* Severe chronic obstructive pulmonary disease (H*INVALID FOR* Diverticulosis of colon [K57.30] INVALID FOR* Dyspnea, unspecified [R06.00] INVALID FOR* Hyperlipidemia [E78.5] INVALID FOR* History of cardiac catheterization [Z98.890] INVALID FOR* Peripheral vascular disease (HCC) [I73.9] INVALID FOR* Solitary pulmonary nodule on lung CT [R91.1] INVALID FOR* More... Primary cancer of left upper lobe of lung (HCC)*INVALID FOR* Small cell lung cancer (HCC) [C34.90] INVALID FOR* Bone metastases (HCC) [C79.51] INVALID FOR* Encounter Status:Closed by SMITHA GANNON on 07/19/18 CHEST PA AND LATERAL Observed: 07/16/2018 Status: F Source: [place] 11:30 AM [facility] REPOSITORY [facility] Imaging Services [address] [place] [id number] Chest PA and Lateral MR#: [id number] Acct: [id number] Name: JIGNESH RAMIRES Rep #: [id number] : 1950 M 67 From: Sebastien Zheng MD PCP: Jose Maurer III, MD Status: REG CLI Study: Chest PA and Lateral Date of Exam: 07/16/18 Exam# [id number] Ordering Dr: Cheryl Schaeffer STUDY: X-RAY CHEST REASON FOR EXAM: Male, 67 years old. Increasing shortness of breath. History of prior pneumothorax. TECHNIQUE: PA and lateral views of the chest. COMPARISON: Comparison is made with prior chest radiograph dated June 15, 2018. FINDINGS: Stable elevation of the right hemidiaphragm. Stable mild degree of increased markings at the left lung base. Suspect a tiny left apical pneumothorax. Normal size heart. A left-sided bipolar pacemaker is seen. Normal mediastinum and carina. Normal visualized pulmonary arteries. There is atherosclerotic calcification of the aortic arch with tortuosity. Normal visualized thoracic spine. Multiple healed right rib fractures. There is no demonstrated abnormality of the visualized soft tissue structures of the upper abdomen. RAD/Chest PA and Lateral IMPRESSION: I suspect a tiny left apical pneumothorax. Electronically Signed: Sebastien Zheng MD at 12:17 EST Tel [phone], Service support , CC: Cheryl Schaeffer; Jose Maurer III, MD Outsewer: Signed PROTHROMBIN TIME W/INR Collected: 07/15/2018 Status: F Source: [place] 6:07 AM [facility] REPOSITORY TYPE CODE TESTS RESULT OUT OF RANGE REFERENCE UNITS LAB L300.4150 11.7-14.9 SECONDS High PROTIME 20.6 LAB L300.4200 Normal INR 1.8 Performed By: #### L300.3900 #### [facility] [address] [place], [place], [address] PROGRESS Observed: 07/13/2018 Status: COMPLETED Source: [place] 4:44 PM [facility] [place] REPOSITORY HNO ID: [id number] Author: Smitha Gannon (Sw) Service: (none) Author Type: Emergency Department Aide Type: Progress Notes Filed: 07/13/2018 4:53 PM Note Text: PSYCHOSOCIAL ASSESSMENT Date of Service: July 13, 2018 Jignesh Ramires is a 67 year old male being seen for initial social work assessment. Diagnosis: Small Cell Lung Cancer New Primary Oncologist: Dr. Murcia Radiation Oncologist: ROBERTO Goals of Care: Palliative care Today's visit includes: self/patient and spouse Family History of Cancer: Other *SUPPORT NETWORK: Marital status: Parent(s): Mother is and Father is Child/Children: Yes. How many? 1 daughter manager progressive care arrangements needed: No Siblings: 1 brother(s) Grandchild(celeste): 2 Home Health Provider: Respiratory Therapist Community Services: No Ashley Identified: No Yazidism/Spirituality: None Are these practices or beliefs that may affect or influence treatment? No *EMPLOYMENT/FINANCIAL/HEALTH INSURANCE: Employment: Retired Income source: Social Security Insurance: Medicare with co-insurance Prescription coverage: Yes COBRA Is the patient appropriate for referral to [facility] COBRA Assistance program? No Financial Distress: No : No *LIVING ARRANGEMENTS: Type: House- independent colonial Resides with: Family spouse *FUNCTIONAL STATUS: Cognitive limitations: none Physical limitations: oxygen Language barrier: No Hearing Impaired: No Speech Impaired: No Visual Impairments: Yes, glasses Literacy Issues: No Special considerations/accommodations needed: No MENTAL HEALTH HISTORY: No History of combat/trauma: No Substance Use and Treatment History: denied History of Abuse: No Issues with: ? Sleep:No ? Eating:No ? Exercising: Yes ? 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 Scanned into Evergage: No Guardianship: NA Scanned into EPIC:NA *COPING STATUS: Coping Strengths: supportive relationships with immediate family and with friends successful managing past crises hopefulness self advocate strong problem-solving skills ability to plan able to follow direction consistently over time able to communicate effectively Current affect/mood: appropriate History of Loss: Yes, mother and father Adjustment to diagnosis: reflecting understanding, responding appropriately and accepting help *BARRIERS/CARE CHALLENGES: None Are barriers/care challenges identified likely to have an impact on the patient's quality of life during treatment? NA *CLINICAL IMPRESSION: SW met with patient and his spouse following his chemotherapy education appointment. Patient reports strong support system and states his daughter lives nearby with his two grandchildren who are both under ten years old. Patient reports he fell a few months ago and has not been able to workout at [facility] since that time. Patient used to enjoy going there a few times a week. Patient is currently on oxygen and is seeing a respiratory therapist. Patient denies issues getting around his home. Patient has a two-story home with a basement, but there is a chairlift to the basement and he does not need to use the second floor. Patient reports he does not have any issues with sleeping or eating. Patient has Advance Directives, but they are not scanned into his chart. SW requested that he bring them to his next appointment and also informed patient that if they need updated he can do that here. Patient agreeable. SW oriented patient to services and provided him with a handout of local resources. INTERVENTIONS/REFERRALS TO BE PROVIDED: Monitor patient response to treatment Communicate pertinent medical/psychosocial information to Cancer Center team Provide emotional support to patient/family Referral to community resource Assist with financial support applications Psychotherapy/Counseling Education Relaxation Techniques Provided education on distress and screening process Continue follow up as needed Resources and Referrals: ? Internal: [facility] ? External: [facility] PLAN: Follow up appointment with MITZY in: DORY Marquez ABS GR + CBC Collected: 07/13/2018 Status: F Source: [place] 3:55 PM [facility] REPOSITORY TYPE CODE TESTS RESULT OUT OF REFERENCE UNITS RANGE LAB WWBC 3.70-11.00 k/uL [place] WBC 7.00 LAB WRBC 4.20-6.00 m/uL Low [place] RBC 3.25 LAB WHGB 13.0-17.0 g/dL Low [place] Hemoglobin 10.4 LAB WHCT 39.0-51.0 % Low [place] Hematocrit 32.8 LAB WMCV 80.0-100.0 fL [place] High MCV 100.9 LAB WMCH 26.0-34.0 pg [place] MCH 32.0 LAB WMCHC 30.5-36.0 g/dL [place] MCHC 31.7 LAB WRDW 11.5-15.0 % [place] RDW 13.3 LAB WPLT 150-400 k/uL [place] Platelet Cnt 264 LAB WMPV 9.0-12.7 fL Low [place] MPV 8.9 Result Comment: Test performed at: [facility] [place], [facility] [address], [place] [address]. LAB ABGRAN 1.45-7.50 k/uL Absol Gran 5.61 Count BASIC METABOLIC PANL Collected: 07/13/2018 Status: F Source: [place] 3:55 PM [facility] REPOSITORY TYPE CODE TESTS RESULT OUT OF REFERENCE UNITS RANGE LAB GLU 74-99 mg/dL Glucose High 112 LAB BUN 9-24 mg/dL BUN 13 LAB CRET 0.73-1.22 mg/dL Creatinine 0.76 LAB NA 136-144 mmol/L Low Sodium 134 LAB K 3.7-5.1 mmol/L Potassium 3.9 LAB CL 97-105 mmol/L Low Chloride 88 LAB CO2 22-30 mmol/L CO2 High 38 LAB AGAP 9-18 mmol/L Low Anion Gap 8 LAB CA 8.5-10.2 mg/dL Calcium, Total 9.1 LAB GFRAA eGFR- >60 Amer. LAB GFRNAA . eGFR-All Other Races >60 Result Comment: eGFR (Estimated GFR) Units of measure: mL/min/1.73 meters squared eGFR is derived from the reexpressed MDRD Study equation using the following parameters: serum creatinine, age, gender and race. The creatinine assay has been calibrated to be traceable to IDMS. An eGFR <60 mL/min/1.73m2 for >3 months is consistent with chronic kidney disease. Refer to KDOQI guidelines for clinical interpretation. In patients with unstable renal function, e.g. those with acute kidney injury, the eGFR may not accurately reflect actual GFR. HEPATIC FUNCTN PANEL Collected: 07/13/2018 Status: F Source: [place] 3:55 PM [facility] REPOSITORY TYPE CODE TESTS RESULT OUT OF REFERENCE UNITS RANGE LAB ALB 3.9-4.9 g/dL Albumin 4.0 LAB TBIL 0.2-1.3 mg/dL Bilirubin, Total 0.2 LAB CBIL <0.2 mg/dL Bilirubin,Conjuga <0.2 kianna LAB ALKP 38-113 U/L Alkaline Phosphatase 54 LAB AST 14-40 U/L AST 22 LAB ALT 10-54 U/L ALT 16 LAB TP 6.3-8.0 g/dL Protein, Total 7.0 LD Collected: 07/13/2018 Status: F Source: [facility] 3:55 PM [facility] [place] REPOSITORY TYPE CODE TESTS RESULT OUT OF RANGE REFERENCE UNITS LAB LD 135-225 U/L High LD 274 PROGRESS Observed: 07/13/2018 Status: COMPLETED Source: [place] 3:52 PM [facility] REPOSITORY HNO ID: [id number] Author: Lenore Flower RN, RN Service: (none) Author Type: Registered Nurse Type: Progress Notes Filed: 07/13/2018 4:40 PM Note Text: ONCOLOGY PATIENT EDUCATION NOTE TOPIC: Chemotherapy, Medications: CARBO/ETOPOSIDE/TECENTRIQ READINESS TO LEARN: COGNITIVE ABILITY: Alert and oriented MOTIVATION TO LEARN: Eager FAMILY SUPPORT: High - Very involved in pt care INSTRUCTION PROVIDED TO: Patient and Family member INSTRUCTION PROVIDED BY: Treatment RN PATIENT LEARNS BEST BY: Individual Instruction Written Instruction - Hand-outs Verbal Instruction FACTORS AFFECTING LEARNING: None PHYSICAL LIMITATIONS AFFECTING LEARNING: None LEARNING RESPONSE DIAGNOSIS: LUNG CANCER METHOD OF INSTRUCTION: Teach Back ABLE TO REPEAT BACK WHEN TO CALL OFFICE Individual instruction Written instruction - handouts PATIENT/FAMILY RESPONSE: Verbalizes understanding of: CHEMOTHERAPY-Regimen, toxicity and side effects FOLLOW UP PLAN: Reinforce - Repeat previous content SUPPLEMENTAL MATERIAL: Written material was provided at this visit with the following information: -Chemotherapy specific education was provided by a pharmacist NO - Side effect management information was provided/discussed including but not limited to: anemia, appetite changes, bowel habit changes, fatigue, hair loss, hypersensitivity reaction, infection, kidney toxicity, loss of fertility, mouth hygiene, mucositis, neuropathy, rash, shortness of breath, thrombocytopenia YES - Important phone numbers and contacts during and after hours. YES - Symptoms that require immediate assistance. YES - Preventing infection. YES - Treatment schedule and confirmation of appointment times. YES - Available support groups. NA - The importance of contraception during the course of chemotherapy YES - A tour was given of the infusion suite with directions for the first day. YES Time Spent: 40 MIN REFERRAL (RECOMMENDATION): Social Work PER ANA Flower RN CNSW Observed: 07/13/2018 Status: COMPLETED Source: [place] 12:00 AM [facility] REPOSITORY Social Work (DEB) JIGNESH RAMIRES ([id number]) 1950 M NFR Date Time Provider Department 07/13/18 SMITHA GANNON (MITZY) AXELFRANC During your visit today, we recorded the following information about you: DORY Durant 07/13/2018 4:53 PM Signed PSYCHOSOCIAL ASSESSMENT Date of Service: July 13, 2018 Jignesh Ramires is a 67 year old male being seen for initial social work assessment. Diagnosis: Small Cell Lung Cancer New Primary Oncologist: Dr. Murcia Radiation Oncologist: ROBERTO Goals of Care: Palliative care Today's visit includes: self/patient and spouse Family History of Cancer: Other *SUPPORT NETWORK: Marital status: Parent(s): Mother is and Father is Child/Children: Yes. How many? 1 daughter manager progressive care arrangements needed: No Siblings: 1 brother(s) Grandchild(celeste): 2 Home Health Provider: Respiratory Therapist Community Services: No Ashley Identified: No Yazidism/Spirituality: None Are these practices or beliefs that may affect or influence treatment? No *EMPLOYMENT/FINANCIAL/HEALTH INSURANCE: Employment: Retired Income source: Social Security Insurance: Medicare with co-insurance Prescription coverage: Yes COBRA Is the patient appropriate for referral to [facility] COBRA Assistance program? No Financial Distress: No [place]: No *LIVING ARRANGEMENTS: Type: House- independent colonial Resides with: Family spouse *FUNCTIONAL STATUS: Cognitive limitations: none Physical limitations: oxygen Language barrier: No Hearing Impaired: No Speech Impaired: No Visual Impairments: Yes, glasses Literacy Issues: No Special considerations/accommodations needed: No MENTAL HEALTH HISTORY: No History of combat/trauma: No Substance Use and Treatment History: denied History of Abuse: No Issues with: ? Sleep:No ? Eating:No ? Exercising: Yes ? 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 Scanned into EPIC: No Guardianship: NA Scanned into EPIC:NA *COPING STATUS: Coping Strengths: supportive relationships with immediate family and with friends successful managing past crises hopefulness self advocate strong problem-solving skills ability to plan able to follow direction consistently over time able to communicate effectively Current affect/mood: appropriate History of Loss: Yes, mother and father Adjustment to diagnosis: reflecting understanding, responding appropriately and accepting help *BARRIERS/CARE CHALLENGES: None Are barriers/care challenges identified likely to have an impact on the patient's quality of life during treatment? NA *CLINICAL IMPRESSION: MITZY met with patient and his spouse following his chemotherapy education appointment. Patient reports strong support system and states his daughter lives nearby with his two grandchildren who are both under ten years old. Patient reports he fell a few months ago and has not been able to workout at [facility] since that time. Patient used to enjoy going there a few times a week. Patient is currently on oxygen and is seeing a respiratory therapist. Patient denies issues getting around his home. Patient has a two-story home with a basement, but there is a chairlift to the basement and he does not need to use the second floor. Patient reports he does not have any issues with sleeping or eating. Patient has Advance Directives, but they are not scanned into his chart. SW requested that he bring them to his next appointment and also informed patient that if they need updated he can do that here. Patient agreeable. MITZY oriented patient to services and provided him with a handout of local resources. INTERVENTIONS/REFERRALS TO BE PROVIDED: Monitor patient response to treatment Communicate pertinent medical/psychosocial information to Cancer Center team Provide emotional support to patient/family Referral to community resource Assist with financial support applications Psychotherapy/Counseling Education Relaxation Techniques Provided education on distress and screening process Continue follow up as needed Resources and Referrals: ? Internal: [facility] ? External: [facility] PLAN: Follow up appointment with MITZY in: DORY Marquez Allergies As of Date: 07/13/2018 (No Known Allergies) Date Reviewed: 07/12/2018 Reviewed by: Shona Chakraborty (Respite Worker) MONIE Ramos - Fully Assessed Reason for Visit: Psychosocial Assessment [[id number]] Prescriptions as of 07/13/2018 Sig: ONDANSETRON HCL 8 MG TABLET Take 1 tablet by mouth every * FUROSEMIDE 40 MG TABLET Take 0.5 tablets by mouth onc* Patient taking differently: Take 40 mg by mouth once wilian* CHOLECALCIFEROL (VITAMIN D3) * Taking 1000 IU 800 am and 800* HYDROXYCHLOROQUINE 200 MG TAB* Take 1 tablet by mouth twice * LEVOTHYROXINE 25 MCG TABLET Take 1 tablet by mouth once d* OMEPRAZOLE 40 MG CAPSULE,MARÍA* Take 1 capsule by mouth once * FLUTICASONE 50 MCG/ACTUATION * Use 1 [place] in each nostril o* ATORVASTATIN 40 MG TABLET Take 40 mg by mouth once wilian* CARVEDILOL 6.25 MG TABLET Take 6.25 mg by mouth twice d* WARFARIN 5 MG TABLET Take 5 mg by mouth daily as d* OXYGEN (HOME THERAPY) by Nasal Cannula route as dir* LOSARTAN 50 MG TABLET Take 25 mg by mouth once wilian* COMPOUNDED PRESCRIPTION Please perform nocturnal puls* COMPOUNDED PRESCRIPTION Please perform nocturnal puls* ALBUTEROL SULFATE CONCENTRATE* Use 0.5 mL via nebulizer ever* COMPOUNDED PRESCRIPTION Please perform nocturnal oxim* COMPOUNDED PRESCRIPTION Please provide disability monika* COMPOUNDED PRESCRIPTION 1 Units four times daily as n* COMPOUNDED PRESCRIPTION Nebulizer, Mask, AND O2 Tubing.* BUDESONIDE-FORMOTEROL HFA 160* Inhale 2 Puffs as instructed * ALBUTEROL SULFATE HFA 90 MCG/* Inhale 2 Puffs as instructed * ACLIDINIUM BROMIDE 400 MCG/AC* Inhale 1 Inhalation as instru* Patient not taking: Reported on 07/12/2018 ASPIRIN 81 MG TABLET,DELAYED * Take 1 tablet by mouth once d* Patient taking differently: Take 1 mg by mouth once daily* COMPOUNDED PRESCRIPTION 2L of O2 at night. 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] INVALID FOR* Psoriatic arthritis (HCC) [L40.50] INVALID FOR* Psoriasis [L40.9] INVALID FOR* Benign non-nodular prostatic hyperplasia with l*INVALID FOR* Encounter for long-term (current) use of medica*INVALID FOR* Hypothyroidism [E03.9] INVALID FOR* Venous stasis dermatitis of right lower extremi*INVALID FOR* 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] INVALID FOR* CHF (congestive heart failure) (HCC) [I50.9] Cardiomyopathy (HCC) [I42.9] ICD (implantable cardioverter-defibrillator) in* Moderate to severe pulmonary hypertension (HCC)*INVALID FOR* Anemia [D64.9] 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 *INVALID FOR* Gastroesophageal reflux disease [K21.9] INVALID FOR* Heavy alcohol use [Z78.9] INVALID FOR* Right rib fracture [S22.31XA] INVALID FOR* Acute respiratory failure (HCC) [J96.00] INVALID FOR*06/21/2018 Coronary arteriosclerosis in benton artery [I25*INVALID FOR* Chronic obstructive pulmonary disease with acut*INVALID FOR* Chronic respiratory failure (HCC) [J96.10] INVALID FOR* Severe chronic obstructive pulmonary disease (H*INVALID FOR* Diverticulosis of colon [K57.30] INVALID FOR* Dyspnea, unspecified [R06.00] INVALID FOR* Hyperlipidemia [E78.5] INVALID FOR* History of cardiac catheterization [Z98.890] INVALID FOR* Peripheral vascular disease (HCC) [I73.9] INVALID FOR* Solitary pulmonary nodule on lung CT [R91.1] INVALID FOR* More... Primary cancer of left upper lobe of lung (HCC)*INVALID FOR* Small cell lung cancer (HCC) [C34.90] INVALID FOR* Bone metastases (HCC) [C79.51] INVALID FOR* Encounter Status:Closed by SMITHA GANNON on 07/13/18 PROGRESS Observed: 07/12/2018 Status: COMPLETED Source: [place] 2:35 PM [facility] [place] REPOSITORY [facility] ID: [id number] Author: Ben Murcia Service: (none) Author Type: Physician Type: Progress Notes Filed: 07/13/2018 5:53 PM Note Text: Diagnosis: 1) Extensive stage small cell lung cancer. HPI: The patient is a 67-year-old male who has a past medical history significant for hypertension, severe COPD (oxygen requiring) coronary artery disease, hyperlipidemia, peripheral vascular disease who was admitted to [facility] in April following a fall where he sustained rib fractures. He underwent a CT scan of the chest on 05/13/2018. He was found to have a spiculated nodule in the left upper lobe measuring 1.3 x 1.1 cm. Additionally there were nondisplaced fractures of the right anterior ribs 4 through 8. There was also evidence of nondisplaced left anterior fractures of the left ribs [address] scan the abdomen and pelvis done the same day showed prominent distention of the bladder with no other significant findings. Patient underwent a CT-guided biopsy of the spiculated left upper lobe lesion on 06/08/2015. 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 TTF-1 was negative. Chromogranin and CD 56 were both negative as well. Presents for ongoing oncologic management. Interim history: PET 06/28/2018: 1. A distinct nodular focus of increased glucose metabolism is manifest in the left upper posterior hemithorax pulmonary parenchyma, left upper lobe generating a calculated maximum standard uptake value of 2.8. The maximal axial diameter of the corresponding parenchymal density on review of CT of the thorax dated 06/28/18 is 12.1 mm (AP). 2. Focal increased glucose concentration is observed in the right posterior ilium generating a calculated maximum standard uptake value of 2.8. 3. There is an increase in FDG concentration noted in the left lower paramedian pelvic mesentery noncontiguous to intestinal tract generating a calculated maximum standard uptake value of 3.1. The maximal axial diameter of the corresponding metabolic, morphologic abnormality on review of CT of the pelvis dated 06/28/18 is 17.2 mm (transverse). 4. Mild increased FDG concentration is demonstrated in the left thoracic perihilum, infrahilar regions generating a calculated maximum standard uptake value of 1.6. Quantitative criteria for centrally located thoracic-viable neoplasm are not fulfilled. 5. Normal physiologic distribution of the radiopharmaceutical is apparent in the hepatic (3.0) and splenic parenchyma, both renal units, bladder and visualized intestinal tract. There is uniform distribution of the radiopharmaceutical concentration defined in the visualized cerebellar hemispheres and cerebral cortical structures.? Diffuse intestinal tract activity is noted throughout all four quadrants of the abdominal-pelvic retroperitoneum, mesentery consistent with normal physiologic distribution of the radiopharmaceutical. Prominent glucose metabolism is defined in the descending thoracic, as well as abdominal aorta. There is multifocal increased radiopharmaceutical concentration noted in the bilateral anterolateral chest wall contiguous to multiple ribs, linear in presentation oriented in the longitudinal plane. Uptake appears to correspond to trauma-visualized fracture on review of CT of the chest dated 06/28/18. Asymmetric increased glucose metabolism is manifest in the right upper posterior chest wall, which appears contiguous to the strap musculature most consistent with a component localized muscle tension artifact. Pertinent CT findings are as follows. CHEST: Emphysematous change is noted in the bilateral upper lung zones. There are no additional parenchymal densities-nodules noted in the right-left hemithorax demonstrating discernible, quantitatively significant increased glucose metabolism. Atherosclerotic calcification is defined in the thoracic aorta without evidence of dilatation, aneurysm formation. Coronary arterial calcification is observed. Cjej-V-Uavi-MediPort placement is noted. ABDOMEN AND PELVIS: Atherosclerotic calcification is defined in the abdominal aorta without evidence of dilatation, aneurysm formation. Pelvic arterial calcification is demonstrated. Calcified phlebolith formation is noted in the left lower hemipelvis. Colonic diverticulosis is defined. SKELETAL: Degenerative changes defined in the cervical, thoracic and lumbar spine demonstrate no evidence for glucose hypermetabolism. IMPRESSION: 1. ABNORMAL EXAMINATION INDICATIVE OF MALIGNANT VIABLE NEOPLASM. 2. Increased glucose concentration observed in the left upper hemithorax pulmonary parenchyma, left upper lobe fulfills quantitative criteria for viable neoplasm. 3. Enhanced FDG uptake noted in the right posterior ilium fulfills quantitative criteria for viable osseous neoplasm. 4. Facilitated radiopharmaceutical concentration defined in the left lower paramedian pelvic mesentery may be further investigated with CT of the pelvis with oral and intravenous contrast secondary to the quantitative degree of uptake. 5. Mild increased tracer uptake visualized in the left thoracic perihilum does not fulfill quantitative criteria for viable neoplasm. (VanSteenkiste et al, Journal of Clinical Oncology 16:2142, 1998). 6. Linear increased fluorine-labeled glucose metabolism noted in the bilateral anterolateral chest wall contiguous to rib is most consistent with activated leukocytes associated with trauma-fracture. 7. Prominent glucose concentration observed in the descending thoracic, as well as abdominal aorta is commensurate with activated leukocytes associated with atherosclerotic plaque formation. (Qi et al, Clinical Nuclear Medicine 29:93, 2003). Underwent CT-guided biopsy of the right iliac bone lesion on 07/06/2018. 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 See comment. ANTIBODY / CLONE RESULT CK8 (29ccnfV13) positive CK5-6 (D5 AND 1684) negative P40 (BC28) negative CD45 (RP2/18) negative CK7 (OV-TL12/30) negative CK20 (KS20.8) negative CD56 (123C3.D5) positive Chromo (LK2H10) positive Synapto (polyclonal) positive Currently receiving antibiotic treatment for recent exacerbation of COPD. PMH, medications and allergies personally reviewed by me today. Any changes documented in appropriate section. ROS: Constitutional: Denies episodes of fever and night sweats. Neuro: Denies WEBBER, vertigo, dizziness. HEENT: No recent change in voice, vision or hearing. Resp: See above. CVS: Denies exertional chest pain, PND, orthopnea and LE edema. GI: Denies dysgeusia. Denies symptoms of stomatitis. Denies dysphagia and odynophagia. Denies reflux, n/v, change in bowel habits and abdominal pain. : Denies dysuria or gross hematuria. Endo: Denies hot flashes. Denies polyuria and polydipsia. Denies heat and cold intolerance. Derm: Denies rash. Denies jaundice and diffuse pruritis. Heme: Denies unusual bleeding and unexplained bruising. Psych: Normal mood. PHYSICAL EXAM: Vitals: Pulse 103, temperature 36.7 ?C (98.1 ?F), weight 69.9 kg (154 lb), SpO2 90 %. Well-appearing and in no acute distress. EYES: Sclerae are anicteric bilaterally. ENT: Oral mucosa is unremarkable. There is no sign of thrush or mucositis. NECK: Supple. LYMPHATIC: There is no palpable cervical, supraclavicular adenopathy. RESPIRATORY: Markedly diminished in short of breath sounds in all booker. No wheezes or rhonchi appreciated. CARDIOVASCULAR: Rhythm is regular. Normal intensity S1/S2. ABDOMEN: The abdomen is nondistended. ASSESSMENT/PLAN: (C34.12) Primary cancer of left upper lobe of lung (HCC) (primary encounter diagnosis) Assessment: -In summary the patient is a 67-year-old male who has advanced oxygen-dependent COPD who was incidentally found to have a 1.3 cm squamous, non-small cell lung cancer when undergoing evaluation for traumatic rib fractures. -By mouth 1 expression was 0. -PET scan suggested small metastasis in the right iliac bone. Biopsy demonstrated small cell lung cancer. -I discussed the pathology personally with Dr. Jasso. The morphology and immunohistochemistry from the right iliac biopsy site are clearly diagnostic of small cell lung cancer. -I discussed with the patient and his the natural history, treated course, and prognosis of extensive stage small cell carcinoma. Also discussed the rationale, logistics, potential risks (including ), benefits and alternatives, as well as the personnel involved in the administration of atezolizumab/carboplatin/etoposide. I answered his questions in detail and he verbalized understanding and agreed with the recommended therapy. Please see the electronic consent document for details of doses and schedule. -Plan to re-evaluate with CT lung after 2 cycles and PET after 4 cycles. Plan: -Chemotherapy teaching. -Begin therapy next week. Ben Murcia DO CNOVSP Observed: 07/12/2018 Status: COMPLETED Source: [place] 2:30 PM [facility] REPOSITORY Visit (SP) Office (DEB) JIGNESH RAMIRES ([id number]) 1950 M NFR Date Time Provider Department 07/12/18 2:30 PM BEN MURCIA During your visit today, we recorded the following information about you: Temperature Pulse Blood pressure Weight 98.1 degrees 103/minute 141/67 69.9 kg Height 1.64 m Ben Murcia DO 07/13/2018 5:53 PM Signed Diagnosis: 1) Extensive stage small cell lung cancer. HPI: The patient is a 67-year-old male who has a past medical history significant for hypertension, severe COPD (oxygen requiring) coronary artery disease, hyperlipidemia, peripheral vascular disease who was admitted to [facility] in April following a fall where he sustained rib fractures. He underwent a CT scan of the chest on 05/13/2018. He was found to have a spiculated nodule in the left upper lobe measuring 1.3 x 1.1 cm. Additionally there were nondisplaced fractures of the right anterior ribs 4 through 8. There was also evidence of nondisplaced left anterior fractures of the left ribs [address] scan the abdomen and pelvis done the same day showed prominent distention of the bladder with no other significant findings. Patient underwent a CT-guided biopsy of the spiculated left upper lobe lesion on 06/08/2015. 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 TTF-1 was negative. Chromogranin and CD 56 were both negative as well. Presents for ongoing oncologic management. Interim history: PET 06/28/2018: 1. A distinct nodular focus of increased glucose metabolism is manifest in the left upper posterior hemithorax pulmonary parenchyma, left upper lobe generating a calculated maximum standard uptake value of 2.8. The maximal axial diameter of the corresponding parenchymal density on review of CT of the thorax dated 06/28/18 is 12.1 mm (AP). 2. Focal increased glucose concentration is observed in the right posterior ilium generating a calculated maximum standard uptake value of 2.8. 3. There is an increase in FDG concentration noted in the left lower paramedian pelvic mesentery noncontiguous to intestinal tract generating a calculated maximum standard uptake value of 3.1. The maximal axial diameter of the corresponding metabolic, morphologic abnormality on review of CT of the pelvis dated 06/28/18 is 17.2 mm (transverse). 4. Mild increased FDG concentration is demonstrated in the left thoracic perihilum, infrahilar regions generating a calculated maximum standard uptake value of 1.6. Quantitative criteria for centrally located thoracic-viable neoplasm are not fulfilled. 5. Normal physiologic distribution of the radiopharmaceutical is apparent in the hepatic (3.0) and splenic parenchyma, both renal units, bladder and visualized intestinal tract. There is uniform distribution of the radiopharmaceutical concentration defined in the visualized cerebellar hemispheres and cerebral cortical structures.? Diffuse intestinal tract activity is noted throughout all four quadrants of the abdominal-pelvic retroperitoneum, mesentery consistent with normal physiologic distribution of the radiopharmaceutical. Prominent glucose metabolism is defined in the descending thoracic, as well as abdominal aorta. There is multifocal increased radiopharmaceutical concentration noted in the bilateral anterolateral chest wall contiguous to multiple ribs, linear in presentation oriented in the longitudinal plane. Uptake appears to correspond to trauma-visualized fracture on review of CT of the chest dated 06/28/18. Asymmetric increased glucose metabolism is manifest in the right upper posterior chest wall, which appears contiguous to the strap musculature most consistent with a component localized muscle tension artifact. Pertinent CT findings are as follows. CHEST: Emphysematous change is noted in the bilateral upper lung zones. There are no additional parenchymal densities-nodules noted in the right-left hemithorax demonstrating discernible, quantitatively significant increased glucose metabolism. Atherosclerotic calcification is defined in the thoracic aorta without evidence of dilatation, aneurysm formation. Coronary arterial calcification is observed. Emhh-C-Conh-MediPort placement is noted. ABDOMEN AND PELVIS: Atherosclerotic calcification is defined in the abdominal aorta without evidence of dilatation, aneurysm formation. Pelvic arterial calcification is demonstrated. Calcified phlebolith formation is noted in the left lower hemipelvis. Colonic diverticulosis is defined. SKELETAL: Degenerative changes defined in the cervical, thoracic and lumbar spine demonstrate no evidence for glucose hypermetabolism. IMPRESSION: 1. ABNORMAL EXAMINATION INDICATIVE OF MALIGNANT VIABLE NEOPLASM. 2. Increased glucose concentration observed in the left upper hemithorax pulmonary parenchyma, left upper lobe fulfills quantitative criteria for viable neoplasm. 3. Enhanced FDG uptake noted in the right posterior ilium fulfills quantitative criteria for viable osseous neoplasm. 4. Facilitated radiopharmaceutical concentration defined in the left lower paramedian pelvic mesentery may be further investigated with CT of the pelvis with oral and intravenous contrast secondary to the quantitative degree of uptake. 5. Mild increased tracer uptake visualized in the left thoracic perihilum does not fulfill quantitative criteria for viable neoplasm. (Sheila et al, Journal of Clinical Oncology 16:2142, 1998). 6. Linear increased fluorine-labeled glucose metabolism noted in the bilateral anterolateral chest wall contiguous to rib is most consistent with activated leukocytes associated with trauma-fracture. 7. Prominent glucose concentration observed in the descending thoracic, as well as abdominal aorta is commensurate with activated leukocytes associated with atherosclerotic plaque formation. (Qi et al, Clinical Nuclear Medicine 29:93, 2003). Underwent CT-guided biopsy of the right iliac bone lesion on 07/06/2018. 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 See comment. ANTIBODY / CLONE RESULT CK8 (80cfshM86) positive CK5-6 (D5 AND 1684) negative P40 (BC28) negative CD45 (RP2/18) negative CK7 (OV-TL12/30) negative CK20 (KS20.8) negative CD56 (123C3.D5) positive Chromo (LK2H10) positive Synapto (polyclonal) positive Currently receiving antibiotic treatment for recent exacerbation of COPD. PMH, medications and allergies personally reviewed by me today. Any changes documented in appropriate section. ROS: Constitutional: Denies episodes of fever and night sweats. Neuro: Denies WEBBER, vertigo, dizziness. HEENT: No recent change in voice, vision or hearing. Resp: See above. CVS: Denies exertional chest pain, PND, orthopnea and LE edema. GI: Denies dysgeusia. Denies symptoms of stomatitis. Denies dysphagia and odynophagia. Denies reflux, n/v, change in bowel habits and abdominal pain. : Denies dysuria or gross hematuria. Endo: Denies hot flashes. Denies polyuria and polydipsia. Denies heat and cold intolerance. Derm: Denies rash. Denies jaundice and diffuse pruritis. Heme: Denies unusual bleeding and unexplained bruising. Psych: Normal mood. PHYSICAL EXAM: Vitals: Pulse 103, temperature 36.7 ?C (98.1 ?F), weight 69.9 kg (154 lb), SpO2 90 %. Well-appearing and in no acute distress. EYES: Sclerae are anicteric bilaterally. ENT: Oral mucosa is unremarkable. There is no sign of thrush or mucositis. NECK: Supple. LYMPHATIC: There is no palpable cervical, supraclavicular adenopathy. RESPIRATORY: Markedly diminished in short of breath sounds in all booker. No wheezes or rhonchi appreciated. CARDIOVASCULAR: Rhythm is regular. Normal intensity S1/S2. ABDOMEN: The abdomen is nondistended. ASSESSMENT/PLAN: (C34.12) Primary cancer of left upper lobe of lung (HCC) (primary encounter diagnosis) Assessment: -In summary the patient is a 67-year-old male who has advanced oxygen-dependent COPD who was incidentally found to have a 1.3 cm squamous, non-small cell lung cancer when undergoing evaluation for traumatic rib fractures. -By mouth 1 expression was 0. -PET scan suggested small metastasis in the right iliac bone. Biopsy demonstrated small cell lung cancer. -I discussed the pathology personally with Dr. Jasso. The morphology and immunohistochemistry from the right iliac biopsy site are clearly diagnostic of small cell lung cancer. -I discussed with the patient and his the natural history, treated course, and prognosis of extensive stage small cell carcinoma. Also discussed the rationale, logistics, potential risks (including ), benefits and alternatives, as well as the personnel involved in the administration of atezolizumab/carboplatin/etoposide. I answered his questions in detail and he verbalized understanding and agreed with the recommended therapy. Please see the electronic consent document for details of doses and schedule. -Plan to re-evaluate with CT lung after 2 cycles and PET after 4 cycles. Plan: -Chemotherapy teaching. -Begin therapy next week. DO Shona Andrews LPN, OMNIE 07/12/2018 2:43 PM Signed Est pt. Discuss recent path report Shona Ramos LPN Referring Provider: BEN MURCIA [[id number]] Allergies As of Date: 07/12/2018 (No Known Allergies) Date Reviewed: 07/12/2018 Reviewed by: Shona Chakraborty (Monie) MONIE Ramos - Fully Assessed Reason for Visit: Established Patient [175] Visit Diagnoses:Small cell lung cancer (HCC) [C34.90] Bone metastases (HCC) [C79.51] Order(s):ondansetron (ZOFRAN) 8 mg tabletTake 1 tablet by mouth every 8 hours as needed for Nausea/Vomiting.Disp: 30 tabletRfl: 2 Follow-up and Disposition History Recorded Prescriptions as of 07/12/2018 Sig: FUROSEMIDE 40 MG TABLET Take 0.5 tablets by mouth onc* Patient taking differently: Take 40 mg by mouth once wilian* CHOLECALCIFEROL (VITAMIN D3) * Taking 1000 IU 800 am and 800* HYDROXYCHLOROQUINE 200 MG TAB* Take 1 tablet by mouth twice * LEVOTHYROXINE 25 MCG TABLET Take 1 tablet by mouth once d* OMEPRAZOLE 40 MG CAPSULE,MARÍA* Take 1 capsule by mouth once * FLUTICASONE 50 MCG/ACTUATION * Use 1 [place] in each nostril o* ATORVASTATIN 40 MG TABLET Take 40 mg by mouth once wilian* CARVEDILOL 6.25 MG TABLET Take 6.25 mg by mouth twice d* WARFARIN 5 MG TABLET Take 5 mg by mouth daily as d* OXYGEN (HOME THERAPY) by Nasal Cannula route as dir* LOSARTAN 50 MG TABLET Take 25 mg by mouth once wilian* ALBUTEROL SULFATE CONCENTRATE* Use 0.5 mL via nebulizer ever* COMPOUNDED PRESCRIPTION Please provide disability monika* COMPOUNDED PRESCRIPTION 1 Units four times daily as n* COMPOUNDED PRESCRIPTION Nebulizer, Mask, AND O2 Tubing.* ALBUTEROL SULFATE HFA 90 MCG/* Inhale 2 Puffs as instructed * ASPIRIN 81 MG TABLET,DELAYED * Take 1 tablet by mouth once d* Patient taking differently: Take 1 mg by mouth once daily* COMPOUNDED PRESCRIPTION Please enroll in pulmonary re* ONDANSETRON HCL 8 MG TABLET Take 1 tablet by mouth every * COMPOUNDED PRESCRIPTION Please perform nocturnal puls* COMPOUNDED PRESCRIPTION Please perform nocturnal puls* COMPOUNDED PRESCRIPTION Please perform nocturnal oxim* BUDESONIDE-FORMOTEROL HFA 160* Inhale 2 Puffs as instructed * ACLIDINIUM BROMIDE 400 MCG/AC* Inhale 1 Inhalation as instru* Patient not taking: Reported on 07/12/2018 COMPOUNDED PRESCRIPTION 2L of O2 at night. Length of* Patient taking differently: 3L of O2 Length of need 99 mo* Problem List As Of Date 07/12/2018 Noted Resolved DYSMETABOLIC SYNDROME X [E88.81] INVALID FOR* OBST CHRON BRONCHITIS WITH EXAC [J44.1] INVALID FOR*06/21/2018 Tobacco use disorder [F17.200] INVALID FOR*01/09/2016 Obstructive chronic bronchitis [J44.9] INVALID FOR* Arthritis of hand, 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] INVALID FOR* Psoriatic arthritis (HCC) [L40.50] INVALID FOR* Psoriasis [L40.9] INVALID FOR* Benign non-nodular prostatic hyperplasia with l*INVALID FOR* Encounter for long-term (current) use of medica*INVALID FOR* Hypothyroidism [E03.9] INVALID FOR* Venous stasis dermatitis of right lower extremi*INVALID FOR* 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] INVALID FOR* CHF (congestive heart failure) (HCC) [I50.9] Cardiomyopathy (HCC) [I42.9] ICD (implantable cardioverter-defibrillator) in* Moderate to severe pulmonary hypertension (HCC)*INVALID FOR* Anemia [D64.9] INVALID FOR* assisted current use of anticoagulant therapy *INVALID FOR* Gastroesophageal reflux disease [K21.9] INVALID FOR* Heavy alcohol use [Z78.9] INVALID FOR* Right rib fracture [S22.31XA] INVALID FOR* Acute respiratory failure (HCC) [J96.00] INVALID FOR*06/21/2018 Coronary arteriosclerosis in [place] artery [I25*INVALID FOR* Chronic obstructive pulmonary disease with acut*INVALID FOR* Chronic respiratory failure (HCC) [J96.10] INVALID FOR* Severe chronic obstructive pulmonary disease (H*INVALID FOR* Diverticulosis of colon [K57.30] INVALID FOR* Dyspnea, unspecified [R06.00] INVALID FOR* Hyperlipidemia [E78.5] INVALID FOR* History of cardiac catheterization [Z98.890] INVALID FOR* Peripheral vascular disease (HCC) [I73.9] INVALID FOR* Solitary pulmonary nodule on lung CT [R91.1] INVALID FOR* More... Primary cancer of left upper lobe of lung (HCC)*INVALID FOR* Small cell lung cancer (HCC) [C34.90] INVALID FOR* Bone metastases (HCC) [C79.51] INVALID FOR* Visit Notes: >> Shona Chakraborty (Monie) MONIE Ramos Mon Jul 12, 2018 2:42 PM Status: Signed Est pt. Discuss recent path report Shona Ramos LPN Encounter Status:Closed by BEN MURCIA DO on 07/13/18 PROTHROMBIN TIME W/INR Collected: 07/12/2018 Status: F Source: [place] 11:19 AM [facility] REPOSITORY TYPE CODE TESTS RESULT OUT OF RANGE REFERENCE UNITS LAB L300.4150 11.7-14.9 SECONDS High PROTIME 16.8 LAB L300.4200 Normal INR 1.4 Performed By: #### L300.3900 #### [facility] [address] [place], [place], [address] PULMONARY VISIT REPORT Observed: 07/07/2018 Status: F Source: [place] 7:14 AM [facility] REPOSITORY [facility] Medicine of [address] [place], [place] [address] OFFICE VISIT Date of Service: 07/07/18 MR#: [id number] Acct: [id number] Name: JIGNESH RAMIRES Rep #: [id number] : 1950 Provider: Clovis Rodríguez MD Age/Sex: 67/M [place] [facility] [place] Status: Signed Assessment AND Plan Problems 1. Stage 3 severe COPD by GOLD classification J44.9 2. Secondary pulmonary arterial hypertension I27.21 3. Cancer of upper lobe of left lung C34.12 4. COPD with acute exacerbation J44.1 Plan Appears to be an acute exacerbation of COPD at this time. Very little air movement noted on chest exam. Patient's fingers and nose were cyanotic. Patient states that he is getting around okay and has a steroid burst and azithromycin at home. Patient will initiate this immediately. Patient can use his trilogy during the day as needed for respiratory rescue. Patient is to call back on Thursday for an update on overall condition. Did discuss with the patient about criteria for presenting to the emergency room. Patient voiced understanding. Biopsy results from pelvic hypermetabolic area are not available yet, but patient has chosen Dr. Murcia for his oncology services. Records to Dr. Ricci. Initiate prednisone burst and azithromycin immediately. Trilogy rescue as needed while at home Plan Detail Follow Up 3 Months (CSM) HPI 3 M FU: Chief Complaint: Shortness of breath Details: Patient is a 67-year-old male, currently under the care of Dr. Maurer, who presents for evaluation secondary to shortness of breath. Since last visit, patient has had multiple biopsies including a CT-guided biopsy in the chest and pelvis. CT chest has come back positive with squamous cell carcinoma and was complicated by a pneumothorax. Patient states that he was doing well, approximately 2 days ago started to develop increased shortness of breath. Patient did undergo the biopsy on his pelvis, but states that he feels much more short of breath. Patient had contemplated using home prednisone and azithromycin, but wanted to be evaluated prior to initiation. Patient has noted that his saturations drop into the 80s without supplemental oxygen, even at rest, which is a significant change from his baseline. Patient does report some cough that is moist, but nonproductive. Patient has noticed some chest tightness and states that he has some hoarseness intermittently. Patient was recently diagnosed with squamous cell carcinoma. Patient has been evaluated by [facility] and [facility]. Patient has decided to go Dr. Murcia. Patient is unaware if he has received any records from our office at this time. Patient has been compliant with Symbicort and Spiriva therapy. Patient reports significant improvement following initiation of Spiriva therapy. Patient denies any side effects such as thrush, hoarseness or sore throat. Patient has been compliant with trilogy therapy. Patient reports good response to therapy with helping with daytime tachypnea, dyspnea on exertion and fatigue. Patient denies any complications such as the interface site, epistaxis or dry mouth. Testing personally reviewed with the patient PET scan (06/28/2018): Increased concentration in the left upper hemithorax and right posterior ilium. Mild uptake in left thoracic perihilum, but not diagnostic. Chest x-ray (06/15/2018): No evidence of pneumothorax HPI Comments Details: Intake Vital Signs07/07/18 Height 5 ft 5 in 07/07/18 Weight: 68.946 kg 07/07/18 Body Mass Index (BMI) 25.2 Intake Visit Reasons: 3 M FU Allergies No Known Allergies Allergy (Verified 07/07/18 06:29) Medications Hydroxychloroquine [Plaquenil] 200 mg PO BIDCM 08/27/16 [History Confirmed 07/07/18] Multivitamin [Multiple Vitamins] 1 ea PO DAILY 08/27/16 [History Confirmed 07/07/18] Omeprazole Magnesium 40 mg PO DAILY 08/27/16 [History Confirmed 07/07/18] aspirin 81 mg chewable tablet 81 mg PO .QOD tab 10/15/17 [History Confirmed 07/07/18] carvedilol 6.25 mg tablet 6.25 mg PO BID 10/15/17 [History Confirmed 07/07/18] cholecalciferol (vitamin D3) 2,000 unit capsule 1,000 unit PO BID cap 10/15/17 [History Confirmed 07/07/18] fluticasone 50 mcg/actuation nasal spray,suspension 2 spray INTRANASAL BID PRN PRN g 10/15/17 [History Confirmed 07/07/18] levothyroxine 25 mcg capsule 25 mcg PO DAILY cap 10/15/17 [History Confirmed 07/07/18] albuterol sulfate 2.5 mg/3 mL (0.083 %) solution for nebulization 2.5 mg INHALATION Q6HWA.RT #180 vial 03/03/18 [Rx Confirmed 07/07/18] albuterol sulfate HFA 90 mcg/actuation aerosol inhaler 2 puff INHALATION Q4H PRN PRN #18 g 03/30/18 [Rx Confirmed 07/07/18] Albuterol IH (ProAir) [Proair Hfa] 1 puff INHALATION Q4H PRN PRN 06/10/18 [History Confirmed 07/07/18] Atorvastatin Calcium [Lipitor] 40 mg PO QHS 06/10/18 [History Confirmed 07/07/18] Budesonide/Formoterol 160/4.5 [Symbicort 160/4.5 Mcg Inhaler (SP)] 2 puff INHALATION BID 06/10/18 [History Confirmed 07/07/18] Furosemide [Lasix] 40 mg PO BID 06/10/18 [History Confirmed 07/07/18] Tiotropium [place] [Spiriva] 2 puff IH DAILY 06/10/18 [History Confirmed 07/07/18] losartan 50 mg tablet 25 mg PO DAILY tab 06/16/18 [History Confirmed 07/07/18] warfarin 5 mg tablet 5 mg PO .COMPLEX #60 tab 06/24/18 [Rx Confirmed 07/07/18] PFSH Medical History Left ventricular thrombus (Acute) Nonischemic cardiomyopathy (Chronic) Severe left ventricular systolic dysfunction (Chronic) 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) PVD (peripheral vascular disease) (Chronic) Stage 3 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) PND (paroxysmal nocturnal dyspnea) (Chronic) Hyperlipidemia (Chronic) SOB (shortness of breath) (Acute) assisted current use of anticoagulant (Chronic) Acute on chronic respiratory failure with hypoxia (Resolved) Psoriatic arthritis (Chronic) CHF (congestive heart failure), NYHA class I (Chronic) Pulmonary hypertension (Chronic) CAP (community acquired pneumonia) (Resolved) Chronic respiratory failure with hypoxia and hypercapnia (Resolved) Surgical History Implantable cardioverter-defibrillator (ICD) in situ (Chronic 12/27/16) History of left heart catheterization (Chronic) Family History Mother Heart disease Brother CVA (cerebral vascular accident) Father Cancer brain Grandmother Diabetes Social History Smoking Status: Former smoker how long ago did patient quit smokin, 1.5p/day second hand exposure: Yes alcohol intake: never substance use type: does not use caffeine: Yes Type: coffee Number of servings: 2 what type of physical activity do you participate in: walking frequency: 3-4 times per week Review of Systems Const CONSTITUTIONAL: Positive fatigue; negative anorexia, body ache, chills, daytime sleepiness, fever(s), night sweats, oral thrush, stops breathing during sleep, weight loss, sleeping in chair, weight loss, weight gain, frequent colds, seasonal allergies, other, headache(s) or orthopnea EETM Ear Nose Throat Mouth: Positive hoarseness and hearing normal; negative dry mouth in morning, change in vision, itchy eyes, eye pain, swallowing Difficulty, ear pain, headache(s), mouth pain, nasal congestion, nasal discharge, sinus pain, sinus pressure, sore throat, other, hard of hearing, nose bleed or post nasal drip Cardio Cardiovascular: Negative chest pain, chest pain at rest, chest pain with activity, irregular heart rhythm, edema, shortness of breath when lying down, palpitations, other or murmur Resp Respiratory: Positive as per HPI, shortness of breath shortness of breath: Positive with activity, cough cough: Positive non-productive and chest tightness; negative pain with cough, wheezing, chest congestion, pain on inspiration, inhalers, increase use of rescue inhalers, snoring, apnea or other Gastro Gastrointestional: Negative bloody stools, change in appetite, difficulty swallowing, reflux, hematemesis, melena stool, loose stool, constipation or other Genitourinary: Negative blood in urine, nocturia, pain with urination or other Musc Musculoskeletal: Negative body pain, back pain, neck pain or other Skin/Breast Skin/Breast: Negative dry skin, itching, unusual bruising, breast lump, other or rash Neuro Neurological: Negative restless legs, confusion, weakness or other Psych Psychocological: Negative abnormal sleep pattern, anxiety, thoughts of hurting self/others, hopelessness or other Lymph Lymphatic: Negative easy bleeding, easy bruising, other or swollen lymph nodes Exam Const Constitutional: Positive conversant, cooperative, in no acute respiratory distress, healthy appearing, well developed, good hygiene, wearing supplemental oxygen, appears older than stated age, frail appearing and dyspenic Head Head: Positive normocephalic and atraumatic; negative cyanosis of lips/distal nose, frontal sinus tenderness or maxillary sinus tenderness Eyes Eye: Positive clear conjunctiva; negative nystagmus, scleral abnormality or cataract present Ears Ear: Positive hearing normal and external ears normal; negative hard of hearing Nose Nose: Positive external nose normal, septum normal and no nasal discharge; negative epistaxis or nasal polyp Mouth Mouth: Positive oral mucosae normal, no lesions and posterior oropharynx is adequate; negative post nasal drip, malodorous breath or oral thrush present Mallampati Score: II: Mallampati Score Neck Neck: Positive normal visual inspection, full ROM and trachea midline; negative lymphadenopathy or JVD Chest Wall Chest: Positive symmetric chest movement and increased A/P diameter; negative crepitus or tenderness Resp lung sounds: Positive wheezes, diminished, wheeze present on forced exhalation, prolonged expiratory time and increased work of breathing; negative rhonchi, rales, use of accessory muscles or dullness to percussion Cardio Cardiac: Positive regular rate, regular rhythm, S2 normal and S1 normal; negative murmur, rub or gallop GI GI: Positive normal to inspection and normal bowel sounds; negative distended, ascites or epigastric tenderness Genitourinary: Positive deferred Musc Musculoskeletal: Positive steady gait; negative using an assistive device for ambulation, kyphosis or scoliosis Skin Pulmonary Skin Exam: Positive intact; negative rash, lesion, ulcers, erythema or dermal atrophy Pulses Pulse: Yes radial pulses present Extremities Extremities: Yes capillary refill normal, Yes clubbing, No cyanosis, No edema, No stasis dermatitis Neuro Neurologic: Yes conversant, Yes no focal neuro deficits, Yes cooperative, Yes understands questions, Yes normal concentration, Yes normal cognition, Yes normal coordination Lymph Lymphatic: No lymphadenopathy Psych Appearance: Positive grossly normal Mental Status: Positive mental status grossly normal Mood: Positive congruent mood Affect: Positive normal affect Coding Level of Care Code Off vis,est,level 5 Diagnoses Stage 3 severe COPD by GOLD classification J44.9 Secondary pulmonary arterial hypertension I27.21 Cancer of upper lobe of left lung C34.12 COPD with acute exacerbation J44.1 07/07/18 0714 <Electronically signed by Clovis Rodríguez MD> Date Clovis Rodríguez MD Cosigner Signature: Date (if applicable) CC: Jose Maurer III, MD CNPN Observed: 07/07/2018 Status: COMPLETED Source: [place] 12:00 AM [facility] [email or web address] Telephone (FAMPWS) JIGNESH RAMIRES ([id number]) 1950 M NFR Date Time Provider Department 07/07/18 JOSE MAURER III During your visit today, we recorded the following information about you: Jennifer Scott, RN, RN 07/07/2018 3:19 PM Signed Pt calls, stating he was on fluid restriction and only taking 20 mg of lasix. Pt states now that he is off the fluid restriction, should he resume previous dose of 40 mg. 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 Please advise pt. Jose Maurer III MD 07/07/2018 5:54 PM Signed Stay on Lasix 20 mg daily and see if this will help clear the fluid. If it does not seem to clear the fluid then we can always increase the dose to 40 mg daily. Jose Maurer III, MD, FAAFP Gardenia Richards CMA, MA 07/07/2018 7:28 PM Signed After talking with PCP, patient is to take 40 mg once daily instead of the twice daily. Patient notified, voiced understanding. Patient was asked to weigh daily and let us know if there is an increase of 2-3 lbs, then we will most likely go back to twice daily. Gardenia Richards CMA Allergies As of Date: 07/07/2018 (No Known Allergies) Date Reviewed: 06/21/2018 Reviewed by: Gardenia Renteria) ROGERIO Richards - Fully Assessed Reason for Visit: Medication Question-Lasix [Other] Order(s):furosemide (LASIX) 40 mg tabletTake 0.5 tablets by mouth once daily.Disp: Rfl: Prescriptions as of 07/07/2018 Sig: FUROSEMIDE 40 MG TABLET Take 0.5 tablets by mouth onc* CHOLECALCIFEROL (VITAMIN D3) * Taking 1000 IU 800 am and 800* HYDROXYCHLOROQUINE 200 MG TAB* Take 1 tablet by mouth twice * LEVOTHYROXINE 25 MCG TABLET Take 1 tablet by mouth once d* OMEPRAZOLE 40 MG CAPSULE,MAÍRA* Take 1 capsule by mouth once * FLUTICASONE 50 MCG/ACTUATION * Use 1 [place] in each nostril o* ATORVASTATIN 40 MG TABLET Take 40 mg by mouth once wilian* CARVEDILOL 6.25 MG TABLET Take 6.25 mg by mouth twice d* WARFARIN 5 MG TABLET Take 5 mg by mouth daily as d* OXYGEN (HOME THERAPY) by Nasal Cannula route as dir* LOSARTAN 50 MG TABLET Take 25 mg by mouth once wilian* COMPOUNDED PRESCRIPTION Please perform nocturnal puls* COMPOUNDED PRESCRIPTION Please perform nocturnal puls* ALBUTEROL SULFATE CONCENTRATE* Use 0.5 mL via nebulizer ever* COMPOUNDED PRESCRIPTION Please perform nocturnal oxim* COMPOUNDED PRESCRIPTION Please provide disability monika* COMPOUNDED PRESCRIPTION 1 Units four times daily as n* COMPOUNDED PRESCRIPTION Nebulizer, Mask, AND O2 Tubing.* BUDESONIDE-FORMOTEROL HFA 160* Inhale 2 Puffs as instructed * ALBUTEROL SULFATE HFA 90 MCG/* Inhale 2 Puffs as instructed * ACLIDINIUM BROMIDE 400 MCG/AC* Inhale 1 Inhalation as instru* ASPIRIN 81 MG TABLET,DELAYED * Take 1 tablet by mouth once d* COMPOUNDED PRESCRIPTION 2L of O2 at night. Length of* COMPOUNDED PRESCRIPTION Please enroll in pulmonary re* Problem List As Of Date 07/07/2018 Noted Resolved DYSMETABOLIC SYNDROME X [E88.81] INVALID FOR* OBST CHRON BRONCHITIS WITH EXAC [J44.1] INVALID FOR*06/21/2018 Tobacco use disorder [F17.200] INVALID FOR*01/09/2016 Obstructive chronic bronchitis [J44.9] INVALID FOR* Arthritis of hand, 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] INVALID FOR* Psoriatic arthritis (HCC) [L40.50] INVALID FOR* Psoriasis [L40.9] INVALID FOR* Benign non-nodular prostatic hyperplasia with l*INVALID FOR* Encounter for long-term (current) use of medica*INVALID FOR* Hypothyroidism [E03.9] INVALID FOR* Venous stasis dermatitis of right lower extremi*INVALID FOR* 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] INVALID FOR* CHF (congestive heart failure) (HCC) [I50.9] Cardiomyopathy (HCC) [I42.9] ICD (implantable cardioverter-defibrillator) in* Moderate to severe pulmonary hypertension (HCC)*INVALID FOR* Anemia [D64.9] INVALID FOR* assisted current use of anticoagulant therapy *INVALID FOR* Gastroesophageal reflux disease [K21.9] INVALID FOR* Heavy alcohol use [Z78.9] INVALID FOR* Right rib fracture [S22.31XA] INVALID FOR* Acute respiratory failure (HCC) [J96.00] INVALID FOR*06/21/2018 Coronary arteriosclerosis in [place] artery [I25*INVALID FOR* Chronic obstructive pulmonary disease with acut*INVALID FOR* Chronic respiratory failure (HCC) [J96.10] INVALID FOR* Severe chronic obstructive pulmonary disease (H*INVALID FOR* Diverticulosis of colon [K57.30] INVALID FOR* Dyspnea, unspecified [R06.00] INVALID FOR* Hyperlipidemia [E78.5] INVALID FOR* History of cardiac catheterization [Z98.890] INVALID FOR* Peripheral vascular disease (HCC) [I73.9] INVALID FOR* Solitary pulmonary nodule on lung CT [R91.1] INVALID FOR* More... Primary cancer of left upper lobe of lung (HCC)*INVALID FOR* Prescriptions ordered this encounter Disp Refills Start End FUROSEMIDE 40 MG TABLET 07/07/2018 Class: Med Update Route: ORAL Sig: Take 0.5 tablets by mouth once daily. Medications Discontinued During This Encounter furosemide (LASIX) 40 mg tablet 07/07/2018 Class: Historical Med Route: ORAL Sig: Take 40 mg by mouth twice daily. Disc: Adjust Sig - Block E-Cancel Encounter Status:Closed by JOSE MAURER III, MD on 07/07/18 BONE (BIOPSY OR PATH Observed: 07/06/2018 Status: F Source: [place] FX) 9:55 AM [facility] REPOSITORY Patient: JIGNESH RAMIRES : 1950 (67/M) Acct Num: [id number] Phys: Jillian Burton MD Unit Num: [id number] Loc: CT Specimen: [id number] Received: 07/06/18 - 1007 Spec Type: Bone TISSUES 1 TISSUES: Pelvis, NOS GROSS DIAGNOSIS Immunohistochemistry ([id number]) supports the above diagnosis. The specimen also shows hematopoietic marrow tissue with trilineage hematopoiesis. Clinical correlation and appropriate follow up are necessary. Please make reference to previous specimen ([id number]) left upper lobe lung mass , CT-guided core biopsy with diagnosis of non-small cell carcinoma, favor squamous cell carcinoma. GROSS DESCRIPTION Received in fixative is one container labeled with the patient's name and designated right pelvic bone biopsy. The specimen consists of multiple minute fragments of light ram soft tissue that in aggregate measure 3 x 1 x <0.1 cm. The specimen is filtered and totally submitted in one cassette. / AM:beni TC:0 CPT: 69622 HEADER OPERATION: CT-guided right pelvic biopsy PRE-OP DIAGNOSIS: Abnormal right pelvic bone neoplasm TISSUE SUBMITTED: Right pelvic biopsy 11 gauge core x1 MICROSCOPIC DESCRIPTION Slides are reviewed. 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 See comment. SJ:beni 07/09/18 Signed Tiburcio Blas 07/09/18 <signature on file> Performed By: #### PBONBX #### [facility] [address] [place], [address] CBC W/DIFF, AUTOMATED Collected: 07/06/2018 Status: F Source: [place] 8:06 AM [facility] REPOSITORY Order Comment: Reason for Laboratory Test PRE-PROCEDURAL PER [facility] POLICY TYPE CODE TESTS RESULT OUT OF RANGE REFERENCE UNITS LAB L100.1000 4.4-11.0 K/mm3 Normal WBC 4.8 LAB L100.1200 4.6-6.2 M/mm3 Low RBC 3.25 LAB L100.1300 13.0-16.5 g/dl Low HGB 10.4 LAB L100.1400 40-54 % Low HCT 32.9 LAB L100.1500 80-94 fL High MCV 101.2 LAB L100.1600 27.0-32.0 pg Normal MCH 32.0 LAB L100.1700 32-36 g/gl Low MCHC 31.6 LAB L100.1810 11.6-14.6 % Normal RDW CV 12.9 LAB L100.1820 35.1-43.9 fl High RDW SD 45.7 LAB L100.1900 150-450 K/mm3 Normal PLT 237 LAB L100.2000 6.2-12.0 fl Normal MPV 8.9 LAB L100.2100 47-70 % High NEUT% 71.9 LAB L100.2200 19-41 % Low LY% 16.3 LAB L100.2300 0-10 % Normal MONO% 8.3 LAB L100.2400 0-5 % Normal EO% 2.9 LAB L100.2500 0-1 % Normal BASO% 0.4 LAB L100.2550 0.0-0.9 % Normal IM GRAN % 0.200 Result Comment: IG% - Immature Granulocytes (promyelocytes, myelocytes and metamyelocytes) > 1% indicates that a LEFT SHIFT is Present. LAB L100.2620 2.0-7.7 X10 3/uL Normal Absolute Neut 3.5 LAB L100.2720 0.83-4.51 X10 3/ul Low Absolute Lymph 0.79 Performed By: #### L100.0100 #### [facility] [address] [facility] [place], [place], [id number] PARTIAL THROMBOPLAST Collected: 07/06/2018 Status: F Source: [place] TIME 8:06 AM [facility] REPOSITORY Order Comment: Reason for Laboratory Test PRE-PROCEDURAL PER [facility] POLICY TYPE CODE TESTS RESULT OUT OF REFERENCE UNITS RANGE LAB L300.4310 24.1-36.2 Seconds High PTT 37.6 Performed By: #### L300.4310, L300.3900 #### [facility] [address] [facility] [place], [place], [id number] PROTHROMBIN TIME W/INR Collected: 07/06/2018 Status: F Source: [place] 8:06 AM [facility] REPOSITORY Order Comment: Reason for Laboratory Test PRE-PROCEDURAL PER [facility] POLICY TYPE CODE TESTS RESULT OUT OF RANGE REFERENCE UNITS LAB L300.4150 11.7-14.9 SECONDS Normal PROTIME 14.2 LAB L300.4200 Normal INR 1.1 Performed By: #### L300.4310, L300.3900 #### [facility] [address] [facility] [place], [place], [address] BASIC METABOLIC Collected: 07/06/2018 Status: F Source: [place] PROFILE (BMP) 8:06 AM [facility] REPOSITORY Order Comment: TUBE IS IN LAB, EXTRA DRAWN PLEASE ADD BMP FOR DR CEBUL TYPE CODE TESTS RESULT OUT OF RANGE REFERENCE UNITS LAB L501.0100 74-106 mg/dL Normal GLU 97 Result Comment: Please note revised GLUCOSE reference range effective 2017. LAB L501.1000 7-18 mg/dL Normal BUN 12 LAB L501.1100 0.70-1.30 mg/dL Normal CREAT,SERUM 0.79 Result Comment: The validity of the calculated GFR AND GFRAA in patients over 70 years has not been determined. Clinical correlation is essential. LAB L501.1110 >60 mL/min Normal EST GFR 104 Result Comment: Non- GFR Calc LAB L501.1115 >60 mL/min Normal EST GFR - AA 126 Result Comment: GFR Calc LAB L501.1255 ml/min Normal Estimated CRCL 62.35 LAB L501.1300 10-20 RATIO Normal BUN/CRE 15.2 LAB L501.2200 8.5-10 mg/dL Normal .1 CA 8.8 LAB L501.5300 136-14 mmol/L Normal 5 NA 138 LAB L501.5600 3.5-5. mmol/L Normal 1 K 4.0 LAB L501.5900 98-107 mmol/L Normal CL 98 LAB L501.6100 21.0-3 mmol/L High 2.0 CO2 36.0 LAB L501.6200 5-15 Low GAP 4 Performed By: #### L500.2500 #### [facility] [address] [facility] [place], [address] BIOPSY/INJ OR NEEDLE Observed: 07/06/2018 Status: F Source: [place] PLACEMENT 8:06 AM [facility] REPOSITORY [facility] Imaging Services [address] [place] [address] Biopsy/Inj or Needle Placement MR#: [id number] Acct: [id number] Name: JIGNESH RAMIRES Rep #: [id number] : 1950 M 67 From: Sebastien Zheng MD PCP: Jose Maurer III, MD Status: REG CLI Study: Biopsy/Inj or Needle Placement Date of Exam: 07/06/18 Exam# [id number] Ordering Dr: Jillian Burton MD PROCEDURE: CT GUIDED biopsy of the small sclerotic lesion in the posterior aspect of the right iliac bone. DATE: July 06, 2018. INDICATION: Male, 67 years old. History of lung cancer. Focal sclerosis in the posterior aspect of the right iliac bone. PHYSICIAN: Sebastien Zheng M.D. RADIATION DOSAGE (If Supplied By Facility): CTDIvol = ( 15.2 ) mGy, DLP = ( 379.75 ) mGycm PROCEDURE: The risks, benefits, and alternatives to the procedure were explained to the patient. The specific risk of hemorrhage requiring further treatment or intervention was detailed and accepted. Follow-up instructions were discussed with the patient as well. Written informed consent was obtained. The patient was brought into the CT suite and placed in the left lateral decubitus position. . An appropriate entry site was identified. The overlying skin was prepped and draped in the usual sterile fashion. 1% lidocaine was administered subcutaneously for local anesthesia. Conscious sedation was performed. The patient received 3 mg of Versed and 75 mcg of fentanyl intravenously. Conscious sedation was started at 9:29 AM and terminated and 9:53 AM. The patient was independently monitored by the department nurse. Under CT guidance, a bone marrow aspiration and biopsy of the sclerotic lesion was performed. The specimens were then placed in the appropriate flow and transported to the laboratory for analysis. Hemostasis was obtained. The patient tolerated the procedure well without immediate complications. CT/Biopsy/Inj or Needle Placement IMPRESSION: Successful CT guided biopsy of the right iliac bone, as described above. Electronically Signed: Sebastien Zheng MD at 13:26 EST Tel [phone], Service support , CC: Jose Maurer III, MD; Jillian Burton MD [place]: Signed IMMUNOHISTOCHEMISTRY Observed: 07/06/2018 Status: F Source: [place] 12:00 AM [facility] REPOSITORY Patient: JIGNESH RAMIRES : 1950 (67/M) Acct Num: [id number] Phys: Jillian Burton MD Unit Num: [id number] Loc: CT Specimen: [id number] Received: 07/07/181419 Spec Type: IMMUNO TISSUES 1 TISSUES: Pelvis, NOS SPECIMEN INFORMATION: Tissue Source: Right pelvic biopsy Clinical Info: Abnormal right pelvic bone neoplasm Specimen Number: [id number] CPT code: 08939, 49079 x8 METHODOLOGY: Deparaffinized sections of prefer/formalin-fixed tissue or PAP/DQ stained slides are incubated with monoclonal/polyclonal antibodies/oligonucleotide probes. Localization is made via biotin free immunoperoxidase method. Appropriate controls are performed and reacted as expected. Results on target cell population are indicated in the following table: RESULTS: ANTIBODY / CLONE RESULT CK8 (73giegG99) positive CK5-6 (D5 AND 1684) negative P40 (BC28) negative CD45 (RP2/18) negative CK7 (OV-TL12/30) negative CK20 (KS20.8) negative CD56 (123C3.D5) positive Chromo (LK2H10) positive Synapto (polyclonal) positive These tests were developed and their performance characteristics determined by [facility]. They may not have been cleared or approved by the U.S. Food and Drug Administration. The FDA has determined that such clearance or approval is not necessary. 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 Clinical correlation is necessary. SJ:beni 07/09/18 [facility] [address] [address] Signed Tiburcio Blas 07/09/18 <signature on file> Performed By: #### PIMM #### [facility] [address] [place] [address], [address] PROTHROMBIN TIME W/INR Collected: 07/01/2018 Status: F Source: [place] 12:30 PM [facility] REPOSITORY TYPE CODE TESTS RESULT OUT OF RANGE REFERENCE UNITS LAB L300.4150 11.7-14.9 SECONDS High PROTIME 18.7 LAB L300.4200 Normal INR 1.6 Performed By: #### L300.3900 #### [facility] [address] [place], [address] ONCOLOGY VISIT REPORT Observed: 07/01/2018 Status: F Source: [place] 12:02 PM [facility] REPOSITORY [facility] [address] [place] [address] OFFICE VISIT Date of Service: 07/01/18 1156 MR#: [id number] Acct: [id number] Name: JIGNESH RAMIRES Rep #: [id number] : 1950 From: Jillian Burton MD Age/Sex: 67/M Location: OMD Status: Signed - Problem List (1) Cancer of upper lobe of left lung Status: Acute (2) Lesion of pelvic bone Status: Acute - Date of Service Date of Service:: 07/01/18 - Chief Complaint Lung cancer, new diagnosis - History of Present Illness Patient is a 67-year-old male who quit smoking in 2008, has severe oxygen dependent COPD, significant atherosclerotic arterial vascular disease, and alcohol dependence. He suffered an accidental fall in April 2018 and sustained multiple rib fractures and a CT scan of the chest showed a suspicious left upper lobe lung nodule measuring 1.3 cm in maximum diameter and confirmed to be in non-small cell carcinoma, squamous histology favored on a biopsy on June 08, 2018. The biopsy was complicated with a pneumothorax that required chest tube drainage from which he recovered without sequela. CT scan of the chest, abdomen and head do not suggest metastatic disease. PET CT June 28, 2018: IMPRESSION: 1. ABNORMAL EXAMINATION INDICATIVE OF MALIGNANT VIABLE NEOPLASM. 2. Increased glucose concentration observed in the left upper hemithorax pulmonary parenchyma, left upper lobe fulfills quantitative criteria for viable neoplasm. 3. Enhanced FDG uptake noted in the right posterior ilium fulfills quantitative criteria for viable osseous neoplasm. 4. Facilitated radiopharmaceutical concentration defined in the left lower paramedian pelvic mesentery may be further investigated with CT of the pelvis with oral and intravenous contrast secondary to the quantitative degree of uptake. 5. Mild increased tracer uptake visualized in the left thoracic perihilum does not fulfill quantitative criteria for viable neoplasm. (Sheila yan al, Journal of Clinical Oncology 16:2142, 1998). 6. Linear increased fluorine-labeled glucose metabolism noted in the bilateral anterolateral chest wall contiguous to rib is most consistent with activated leukocytes associated with trauma-fracture. 7. Prominent glucose concentration observed in the descending thoracic, as well as abdominal aorta is commensurate with activated leukocytes associated with atherosclerotic plaque formation. (Richelle, Clinical Nuclear Medicine 29:93, 2004). - Past Medical/Social History Past Medical History Cancer: Lung cancer Social History Social History: No changes Smoking Status Former smoker Review of Systems Comment: No change from June 21, 2018 Vital Signs Height 5 ft 5 in Weight: 68.583 kg Weight in Pounds 151.2 lbs Pulse Ox 94 - Physical Exam General: Alert, Oriented x3, No apparent distress, - - ECOG 2 On oxygen Diagnostic Data: Diagnostic Data I personally reviewed patient's images and concur with report PET, CT Tumor Imaging 06/28/18 09:00 IMPRESSION: 1. ABNORMAL EXAMINATION INDICATIVE OF MALIGNANT VIABLE NEOPLASM. 2. Increased glucose concentration observed in the left upper hemithorax pulmonary parenchyma, left upper lobe fulfills quantitative criteria for viable neoplasm. 3. Enhanced FDG uptake noted in the right posterior ilium fulfills quantitative criteria for viable osseous neoplasm. 4. Facilitated radiopharmaceutical concentration defined in the left lower paramedian pelvic mesentery may be further investigated with CT of the pelvis with oral and intravenous contrast secondary to the quantitative degree of uptake. 5. Mild increased tracer uptake visualized in the left thoracic perihilum does not fulfill quantitative criteria for viable neoplasm. (Sheila yan al, Journal of Clinical Oncology 16:2142, 1998). 6. Linear increased fluorine-labeled glucose metabolism noted in the bilateral anterolateral chest wall contiguous to rib is most consistent with activated leukocytes associated with trauma-fracture. 7. Prominent glucose concentration observed in the descending thoracic, as well as abdominal aorta is commensurate with activated leukocytes associated with atherosclerotic plaque formation. (Richelle, Clinical Nuclear Medicine 29:93, 2004). Electronic Signature Iker Montalvo D.O. Electronically Signed: Iker Montalvo DO at 22:30 EST Tel , Service support , Assessment and Plan 67-year-old male with left upper lobe non-small cell lung cancer (squamous histology). PET CT suggests metastatic disease to pelvic bone, to be confirmed pathologically Patient has an impaired performance status from his chronic lung and cardiac disease and has significant oxygen dependent COPD, atherosclerotic arterial disease, cardiac disease, dyslipidemia, psoriatic arthritis, on chronic anticoagulation because of history of left ventricular thrombus. All these comorbidities preclude surgical resection as primary treatment. Plan: 1. CT-guided biopsy of area concerning for metastatic disease and pelvic bone 2. Radiation oncology consultation for primary treatment if no metastatic disease is identified. 3. We will follow-up after biopsy. Primary Care Provider: Jose Maurer Referring Provider: 07/01/18 1202 <Electronically signed by Jillian Burton MD> Date Jillian Burton MD Cosigner Signature: Date (if applicable) CC: PET/CT TUMOR BASE Observed: 06/28/2018 Status: F Source: [facility] IN[facility] 8:29 AM [facility] REPOSITORY [facility] Imaging Services [address] [place] [id number] PET/CT Tumor Base -Thigh Init MR#: [id number] Acct: [id number] Name: JIGNESH RAMIRES Rep #: [id number] : 1950 M 67 From: Iker Montalvo DO PCP: Jose Maurer III, MD Status: REG RCR Study: PET/CT Tumor Base -Thigh Init Date of Exam: 06/28/18 Exam# [id number] Ordering Dr: Cheryl Schaeffer MANAGER OF PROCUREMENT-C EXAMINATION: FDG PET CT INDICATIONS: A 67-year-old male with reported history of carcinoma of the lung presenting for initial staging examination. COMPARISON EXAMINATION: CT of the chest report dated 04/12/18. INDEX LESION SIZE SUV INTERPRETATION Left upper hemithorax, left upper lobe 13.1 mm (frame 205) 2.8 Fulfills quantitative criteria for viable neoplasm Right posterior ilium 2.8 Fulfills quantitative criteria for viable neoplasm Right hemipelvic mesentery 17.2 mm (frame 60) 3.1 May be further investigated with CT of the pelvis with oral and intravenous contrast NON-INDEX LESION SIZE SUV INTERPRETATION Left thoracic perihilum 1.6 Quantitative criteria for viable neoplasm are not fulfilled TECHNIQUE: Following the intravenous administration of 13.3 mCi of F-18 deoxyglucose via the right antecubital fossa, multiplanar image acquisitions of the neck, chest, abdomen and pelvis to level of mid thigh, obtained at one hour post radiopharmaceutical administration contemporaneously interpreted with the current CT of the neck, chest, abdomen and pelvis to level of mid thigh, dated 06/28/[address] of the chest report dated 04/12/18 reveal: SERUM GLUCOSE LEVEL: 94 mg/dl. HEIGHT: 65 inches. WEIGHT: 147 lbs. FINDINGS: 1. A distinct nodular focus of increased glucose metabolism is manifest in the left upper posterior hemithorax pulmonary parenchyma, left upper lobe generating a calculated maximum standard uptake value of 2.8. The maximal axial diameter of the corresponding parenchymal density on review of CT of the thorax dated 06/28/18 is 12.1 mm (AP). 2. Focal increased glucose concentration is observed in the right posterior ilium generating a calculated maximum standard uptake value of 2.8. 3. There is an increase in FDG concentration noted in the left lower paramedian pelvic mesentery noncontiguous to intestinal tract generating a calculated maximum standard uptake value of 3.1. The maximal axial diameter of the corresponding metabolic, morphologic abnormality on review of CT of the pelvis dated 06/28/18 is 17.2 mm (transverse). 4. Mild increased FDG concentration is demonstrated in the left thoracic perihilum, infrahilar regions generating a calculated maximum standard uptake value of 1.6. Quantitative criteria for centrally located thoracic-viable neoplasm are not fulfilled. 5. Normal physiologic distribution of the radiopharmaceutical is apparent in the hepatic (3.0) and splenic parenchyma, both renal units, bladder and visualized intestinal tract. There is uniform distribution of the radiopharmaceutical concentration defined in the visualized cerebellar hemispheres and cerebral cortical structures.? Diffuse intestinal tract activity is noted throughout all four quadrants of the abdominal-pelvic retroperitoneum, mesentery consistent with normal physiologic distribution of the radiopharmaceutical. Prominent glucose metabolism is defined in the descending thoracic, as well as abdominal aorta. There is multifocal increased radiopharmaceutical concentration noted in the bilateral anterolateral chest wall contiguous to multiple ribs, linear in presentation oriented in the longitudinal plane. Uptake appears to correspond to trauma-visualized fracture on review of CT of the chest dated 06/28/18. Asymmetric increased glucose metabolism is manifest in the right upper posterior chest wall, which appears contiguous to the strap musculature most consistent with a component localized muscle tension artifact. Pertinent CT findings are as follows. CHEST: Emphysematous change is noted in the bilateral upper lung zones. There are no additional parenchymal densities-nodules noted in the right-left hemithorax demonstrating discernible, quantitatively significant increased glucose metabolism. Atherosclerotic calcification is defined in the thoracic aorta without evidence of dilatation, aneurysm formation. Coronary arterial calcification is observed. Jpvd-S-Rsmz-MediPort placement is noted. ABDOMEN AND PELVIS: Atherosclerotic calcification is defined in the abdominal aorta without evidence of dilatation, aneurysm formation. Pelvic arterial calcification is demonstrated. Calcified phlebolith formation is noted in the left lower hemipelvis. Colonic diverticulosis is defined. SKELETAL: Degenerative changes defined in the cervical, thoracic and lumbar spine demonstrate no evidence for glucose hypermetabolism. PET/PET/CT Tumor Base -Thigh Init IMPRESSION: 1. ABNORMAL EXAMINATION INDICATIVE OF MALIGNANT VIABLE NEOPLASM. 2. Increased glucose concentration observed in the left upper hemithorax pulmonary parenchyma, left upper lobe fulfills quantitative criteria for viable neoplasm. 3. Enhanced FDG uptake noted in the right posterior ilium fulfills quantitative criteria for viable osseous neoplasm. 4. Facilitated radiopharmaceutical concentration defined in the left lower paramedian pelvic mesentery may be further investigated with CT of the pelvis with oral and intravenous contrast secondary to the quantitative degree of uptake. 5. Mild increased tracer uptake visualized in the left thoracic perihilum does not fulfill quantitative criteria for viable neoplasm. (VanSteenkijosué et al, Journal of Clinical Oncology 16:2142, 1998). 6. Linear increased fluorine-labeled glucose metabolism noted in the bilateral anterolateral chest wall contiguous to rib is most consistent with activated leukocytes associated with trauma-fracture. 7. Prominent glucose concentration observed in the descending thoracic, as well as abdominal aorta is commensurate with activated leukocytes associated with atherosclerotic plaque formation. (Qi et al, Clinical Nuclear Medicine 29:93, 2004). Electronic Signature Iker Montalvo D.O. Electronically Signed: Iker Selvin, at 22:30 EST Tel , Service support , CC: Cheryl Schaeffer; Jose Maurer III, MD Outsewer: Signed CT OUTSIDE CD DICOM Observed: 06/28/2018 Status: F Source: [place] IMPORT -NBNR 12:00 AM [facility] REPOSITORY Images were obtained outside of [facility] [id number] PROGRESS Observed: 06/24/2018 Status: COMPLETED Source: [place] 1:10 PM [facility] REPOSITORY HNO ID: [id number] Author: Ben Murcia Service: (none) Author Type: Physician Type: Progress Notes Filed: 06/24/2018 1:31 PM Note Text: Patient referred by Cheryl Schaeffer NP for my opinion recommendations regarding a patient recently diagnosed with non-small cell lung cancer. The impression and plan will be communicated by way of the shared electronic record. HPI: The patient is a 67-year-old male who has a past medical history significant for hypertension, severe COPD (oxygen requiring) coronary artery disease, hyperlipidemia, peripheral vascular disease who was admitted to [facility] in April following a fall where he sustained rib fractures. He underwent a CT scan of the chest on 05/13/2018. He was found to have a spiculated nodule in the left upper lobe measuring 1.3 x 1.1 cm. Additionally there were nondisplaced fractures of the right anterior ribs 4 through 8. There was also evidence of nondisplaced left anterior fractures of the left ribs [address] scan the abdomen and pelvis done the same day showed prominent distention of the bladder with no other significant findings. Patient underwent a CT-guided biopsy of the spiculated left upper lobe lesion on 06/08/2015. 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 TTF-1 was negative. Chromogranin and CD 56 were both negative as well. Patient is scheduled to undergo PET scan. He was seen by Dr. Burton and SBRT was advised assuming no evidence metastatic disease. He offers no complaints today. The chest pain he had from her fractures is slowly improving. He is not short of breath at rest. He uses 2 L of oxygen 24 hours a day. He has a chronic cough with sputum production. No history of hemoptysis. Says appetite is been doing pretty well he hasn't lost any weight in the last couple months. PMH, medications and allergies personally reviewed by me today. Any changes documented in appropriate section. ROS: Constitutional: Denies episodes of fever and night sweats. Neuro: Denies WEBBER, vertigo, dizziness. HEENT: No recent change in voice, vision or hearing. Resp: See above. CVS: Denies exertional chest pain, PND, orthopnea and LE edema. GI: Denies dysgeusia. Denies symptoms of stomatitis. Denies dysphagia and odynophagia. Denies reflux, n/v, change in bowel habits and abdominal pain. : Denies dysuria or gross hematuria. Endo: Denies hot flashes. Denies polyuria and polydipsia. Denies heat and cold intolerance. Musculoskeletal: See above. Derm: Denies rash. Denies jaundice and diffuse pruritis. Heme: Denies unusual bleeding and unexplained bruising. Psych: Normal mood. PHYSICAL EXAM: Vitals: Blood pressure 154/61, pulse 84, temperature 36.9 ?C (98.5 ?F), temperature source Oral, height 164 cm (5' 4.57), weight 67.1 kg (148 lb), SpO2 96 %. Well-appearing and in no acute distress. EYES: Sclerae are anicteric bilaterally. ENT: Oral mucosa is unremarkable. There is no sign of thrush or mucositis. NECK: Supple. LYMPHATIC: There is no palpable cervical, supraclavicular or axillary adenopathy. RESPIRATORY: He has markedly diminished in short of breath sounds in all booker. No wheezes or rhonchi appreciated today. CARDIOVASCULAR: Rhythm is regular. Normal intensity S1/S2. ABDOMEN: The abdomen is nondistended. No organomegaly. No tenderness. Extremities: No swelling or edema. SKIN: No jaundice or rash. NEUROLOGIC: optometric technologist II-XII are grossly intact. No focal motor weakness. MUSCULOSKELETAL: No muscle wasting. ASSESSMENT/PLAN: (C34.12) Primary cancer of left upper lobe of lung (HCC) (primary encounter diagnosis) Assessment: -In summary the patient is a 67-year-old male who has advanced oxygen-dependent COPD who was incidentally found to have a 1.3 cm squamous, non-small cell lung cancer when undergoing evaluation for traumatic rib fractures. -She is not a candidate for surgery given his advanced COPD and poor pulmonary reserve. -I explained I agree with Dr. Burton' recommendation for SBRT. Plan: -Await PET. -Order submitted to pathology for PDL1 testing so can plan systemic therapy if proves to have metastases. Ben Murcia, PROTHROMBIN TIME W/INR Collected: 06/24/2018 Status: F Source: [place] 6:34 AM [facility] REPOSITORY TYPE CODE TESTS RESULT OUT OF RANGE REFERENCE UNITS LAB L300.4150 11.7-14.9 SECONDS High PROTIME 16.5 LAB L300.4200 Normal INR 1.3 Performed By: #### L300.3900 #### [facility] [address] [place], [address] PROGRESS Observed: 06/23/2018 Status: COMPLETED Source: [place] 1:19 PM [facility] REPOSITORY HNO ID: [id number] Author: Jose Maurer III Service: (none) Author Type: Physician Type: Progress Notes Filed: 06/23/2018 1:19 PM Note Text: Jamil, The sodium level is low and getting lower. This is probably due to the lung tumor as well as the high dose of Lasix. I recommend reducing Lasix from 40 mg twice per day to Lasix 40 mg once per day. Limit fluid intake to 40 ounces per day to see if the kidneys will bring up the sodium level. Recheck labs in 2 weeks. Fasting is not required. The somewhat elevated ferritin level is not a problem. All of the other lab results are fine. Jose Maurer III, MD, FAAFP CNOVSP Observed: 06/22/2018 Status: COMPLETED Source: [place] 2:00 PM [facility] REPOSITORY Visit (SP) Office ([place]) JIGNESH RAMIRES ([id number]) 1950 M NFR Date Time Provider Department 06/22/18 2:00 PM BEN MURCIA During your visit today, we recorded the following information about you: Temperature Pulse Blood pressure Weight 98.5 degrees 84/minute 154/61 67.1 kg Height 1.64 m Ben Murcia DO 06/24/2018 1:31 PM Signed Patient referred by Cheryl Schaeffer NP for my opinion recommendations regarding a patient recently diagnosed with non-small cell lung cancer. The impression and plan will be communicated by way of the shared electronic record. HPI: The patient is a 67-year-old male who has a past medical history significant for hypertension, severe COPD (oxygen requiring) coronary artery disease, hyperlipidemia, peripheral vascular disease who was admitted to [facility] in April following a fall where he sustained rib fractures. He underwent a CT scan of the chest on 05/13/2018. He was found to have a spiculated nodule in the left upper lobe measuring 1.3 x 1.1 cm. Additionally there were nondisplaced fractures of the right anterior ribs 4 through 8. There was also evidence of nondisplaced left anterior fractures of the left ribs 3 [address] scan the abdomen and pelvis done the same day showed prominent distention of the bladder with no other significant findings. Patient underwent a CT-guided biopsy of the spiculated left upper lobe lesion on 06/08/2015. 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 TTF-1 was negative. Chromogranin and CD 56 were both negative as well. Patient is scheduled to undergo PET scan. He was seen by Dr. Burton and SBRT was advised assuming no evidence metastatic disease. He offers no complaints today. The chest pain he had from her fractures is slowly improving. He is not short of breath at rest. He uses 2 L of oxygen 24 hours a day. He has a chronic cough with sputum production. No history of hemoptysis. Says appetite is been doing pretty well he hasn't lost any weight in the last couple months. PMH, medications and allergies personally reviewed by me today. Any changes documented in appropriate section. ROS: Constitutional: Denies episodes of fever and night sweats. Neuro: Denies WEBBER, vertigo, dizziness. HEENT: No recent change in voice, vision or hearing. Resp: See above. CVS: Denies exertional chest pain, PND, orthopnea and LE edema. GI: Denies dysgeusia. Denies symptoms of stomatitis. Denies dysphagia and odynophagia. Denies reflux, n/v, change in bowel habits and abdominal pain. : Denies dysuria or gross hematuria. Endo: Denies hot flashes. Denies polyuria and polydipsia. Denies heat and cold intolerance. Musculoskeletal: See above. Derm: Denies rash. Denies jaundice and diffuse pruritis. Heme: Denies unusual bleeding and unexplained bruising. Psych: Normal mood. PHYSICAL EXAM: Vitals: Blood pressure 154/61, pulse 84, temperature 36.9 ?C (98.5 ?F), temperature source Oral, height 164 cm (5' 4.57), weight 67.1 kg (148 lb), SpO2 96 %. Well-appearing and in no acute distress. EYES: Sclerae are anicteric bilaterally. ENT: Oral mucosa is unremarkable. There is no sign of thrush or mucositis. NECK: Supple. LYMPHATIC: There is no palpable cervical, supraclavicular or axillary adenopathy. RESPIRATORY: He has markedly diminished in short of breath sounds in all booker. No wheezes or rhonchi appreciated today. CARDIOVASCULAR: Rhythm is regular. Normal intensity S1/S2. ABDOMEN: The abdomen is nondistended. No organomegaly. No tenderness. Extremities: No swelling or edema. SKIN: No jaundice or rash. NEUROLOGIC: optometric technologist II-XII are grossly intact. No focal motor weakness. MUSCULOSKELETAL: No muscle wasting. ASSESSMENT/PLAN: (C34.12) Primary cancer of left upper lobe of lung (HCC) (primary encounter diagnosis) Assessment: -In summary the patient is a 67-year-old male who has advanced oxygen-dependent COPD who was incidentally found to have a 1.3 cm squamous, non-small cell lung cancer when undergoing evaluation for traumatic rib fractures. -She is not a candidate for surgery given his advanced COPD and poor pulmonary reserve. -I explained I agree with Dr. Burton' recommendation for SBRT. Plan: -Await PET. -Order submitted to pathology for PDL1 testing so can plan systemic therapy if proves to have metastases. Ben Murcia DO Referring Provider: JOSE MAURER III [[id number]] Allergies As of Date: 06/22/2018 (No Known Allergies) Date Reviewed: 06/21/2018 Reviewed by: [place] ([facility]) ROGERIO Richards - Fully Assessed Reason for Visit: Consult [[id number]] Primary Visit Diagnosis:Primary cancer of left upper lobe of lung (HCC) [C34.12] Follow-up and Disposition History Recorded Prescriptions as of 06/22/2018 Sig: X FOLIC ACID 400 MCG TABLET Take 400 mcg by mouth once da* CHOLECALCIFEROL (VITAMIN D3) * Taking 1000 IU 800 am and 800* HYDROXYCHLOROQUINE 200 MG TAB* Take 1 tablet by mouth twice * LEVOTHYROXINE 25 MCG TABLET Take 1 tablet by mouth once d* OMEPRAZOLE 40 MG CAPSULE,MARÍA* Take 1 capsule by mouth once * FLUTICASONE 50 MCG/ACTUATION * Use 1 [place] in each nostril o* ATORVASTATIN 40 MG TABLET Take 40 mg by mouth once wilian* CARVEDILOL 6.25 MG TABLET Take 6.25 mg by mouth twice d* WARFARIN 5 MG TABLET Take 5 mg by mouth daily as d* OXYGEN (HOME THERAPY) by Nasal Cannula route as dir* LOSARTAN 50 MG TABLET Take 25 mg by mouth once wilian* FUROSEMIDE 40 MG TABLET Take 40 mg by mouth twice raheem* COMPOUNDED PRESCRIPTION Please perform nocturnal puls* COMPOUNDED PRESCRIPTION Please perform nocturnal puls* ALBUTEROL SULFATE CONCENTRATE* Use 0.5 mL via nebulizer ever* COMPOUNDED PRESCRIPTION Please perform nocturnal oxim* COMPOUNDED PRESCRIPTION Please provide disability monika* COMPOUNDED PRESCRIPTION 1 Units four times daily as n* COMPOUNDED PRESCRIPTION Nebulizer, Mask, AND O2 Tubing.* BUDESONIDE-FORMOTEROL HFA 160* Inhale 2 Puffs as instructed * ALBUTEROL SULFATE HFA 90 MCG/* Inhale 2 Puffs as instructed * ACLIDINIUM BROMIDE 400 MCG/AC* Inhale 1 Inhalation as instru* ASPIRIN 81 MG TABLET,DELAYED * Take 1 tablet by mouth once d* COMPOUNDED PRESCRIPTION 2L of O2 at night. Length of* COMPOUNDED PRESCRIPTION Please enroll in pulmonary re* Problem List As Of Date 06/22/2018 Noted Resolved DYSMETABOLIC SYNDROME X [E88.81] INVALID FOR* OBST CHRON BRONCHITIS WITH EXAC [J44.1] INVALID FOR*06/21/2018 Tobacco use disorder [F17.200] INVALID FOR*01/09/2016 Obstructive chronic bronchitis [J44.9] INVALID FOR* Arthritis of hand, 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] INVALID FOR* Psoriatic arthritis (HCC) [L40.50] INVALID FOR* Psoriasis [L40.9] INVALID FOR* Benign non-nodular prostatic hyperplasia with l*INVALID FOR* Encounter for long-term (current) use of medica*INVALID FOR* Hypothyroidism [E03.9] INVALID FOR* Venous stasis dermatitis of right lower extremi*INVALID FOR* 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] INVALID FOR* CHF (congestive heart failure) (HCC) [I50.9] Cardiomyopathy (HCC) [I42.9] ICD (implantable cardioverter-defibrillator) in* Moderate to severe pulmonary hypertension (HCC)*INVALID FOR* Anemia [D64.9] INVALID FOR* assisted current use of anticoagulant therapy *INVALID FOR* Gastroesophageal reflux disease [K21.9] INVALID FOR* Heavy alcohol use [Z78.9] INVALID FOR* Right rib fracture [S22.31XA] INVALID FOR* Acute respiratory failure (HCC) [J96.00] INVALID FOR*06/21/2018 Coronary arteriosclerosis in [place] artery [I25*INVALID FOR* Chronic obstructive pulmonary disease with acut*INVALID FOR* Chronic respiratory failure (HCC) [J96.10] INVALID FOR* Severe chronic obstructive pulmonary disease (H*INVALID FOR* Diverticulosis of colon [K57.30] INVALID FOR* Dyspnea, unspecified [R06.00] INVALID FOR* Hyperlipidemia [E78.5] INVALID FOR* History of cardiac catheterization [Z98.890] INVALID FOR* Peripheral vascular disease (HCC) [I73.9] INVALID FOR* Solitary pulmonary nodule on lung CT [R91.1] INVALID FOR* More... Encounter Status:Closed by BEN MURCIA DO on 06/24/18 TSH Collected: 06/21/2018 Status: F Source: [place] 4:09 PM [facility] REPOSITORY TYPE CODE TESTS RESULT OUT OF RANGE REFERENCE UNITS LAB TSH 0.400-5.500 uU/mL TSH 1.590 Performed By: #### TSH, CMP, FERR, B12, SERFOL #### [facility] [address] [place] [id number] COMP METABOLIC PANEL Collected: 06/21/2018 Status: F Source: [place] 4:09 PM [facility] REPOSITORY TYPE CODE TESTS RESULT OUT OF REFERENCE UNITS RANGE LAB TP 6.3-8.0 g/dL Protein, Total 7.2 LAB ALB 3.9-4.9 g/dL Albumin 4.1 LAB CA 8.5-10.2 mg/dL Calcium, Total 9.0 LAB TBIL 0.2-1.3 mg/dL Bilirubin, Total 0.4 LAB ALKP 38-113 U/L Alkaline Phosphatase 58 LAB AST 14-40 U/L AST 32 LAB GLU 74-99 mg/dL Glucose 86 Result Comment: The [place] Diabetes Association (ADA) provides guidance for cutoff values for fasting glucose and random glucose. The ADA defines fasting as no caloric intake for at least 8 hours. Fas ting plasma glucose results between 100 to 125 mg/dL indicate increased risk for diabetes (prediabetes). Fasting plasma glucose results greater than or equal to 126 mg/dL meet the criteria for diagnosis of diabetes. In the absence of unequivocal hyperglycemia, results should be confirmed by repeat testing. In a patient with classic symptoms of hyperglycemia or hyperglycemic crisis, random plasma glucose results greater than or equal to 200 mg/dL meet the criteria for diagnosis of diabetes. Reference: Standards of Medical Care in Diabetes 2016, [place] Diabetes Association. Diabetes Care. 2016.39(Suppl 1). LAB BUN 9-24 mg/dL BUN 11 LAB CRET 0.73-1.22 mg/dL Creatinine Low 0.64 LAB NA 136-144 mmol/L Sodium Low 125 LAB K 3.7-5.1 mmol/L Potassium 4.1 LAB CL 97-105 mmol/L Chloride Low 76 Result Comment: Result rechecked. LAB CO2 22-30 mmol/L High CO2 36 LAB AGAP 9-18 mmol/L Anion Gap 13 LAB ALT 10-54 U/L ALT 18 LAB GFRAA eGFR- Amer. >60 LAB GFRNAA . eGFR-All Other Races >60 Result Comment: eGFR (Estimated GFR) Units of measure: mL/min/1.73 meters squared eGFR is derived from the reexpressed MDRD Study equation using the following parameters: serum creatinine, age, gender and race. The creatinine assay has been calibrated to be traceable to IDMS. An eGFR <60 mL/min/1.73m2 for >3 months is consistent with chronic kidney disease. Refer to KDOQI guidelines for clinical interpretation. In patients with unstable renal function, e.g. those with acute kidney injury, the eGFR may not accurately reflect actual GFR. Performed By: #### TSH, CMP, FERR, B12, SERFOL #### [facility] [address] [address] FERRITIN Collected: 06/21/2018 Status: F Source: [place] 4:09 PM [facility] REPOSITORY TYPE CODE TESTS RESULT OUT OF REFERENCE UNITS RANGE LAB FERR 30.3-565.7 ng/mL High Ferritin 737.7 Performed By: #### TSH, CMP, FERR, B12, SERFOL #### [facility] [employer] [address] [address] VITAMIN B12 Collected: 06/21/2018 Status: F Source: [place] 4:09 PM [facility] REPOSITORY TYPE CODE TESTS RESULT OUT OF REFERENCE UNITS RANGE LAB B12 232-1245 pg/mL Vitamin B12 847 Performed By: #### TSH, CMP, FERR, B12, SERFOL #### [facility] [employer] [address] [address] FOLATE, SERUM Collected: 06/21/2018 Status: F Source: [place] 4:09 PM [facility] REPOSITORY TYPE CODE TESTS RESULT OUT OF REFERENCE UNITS RANGE LAB SERFOL >4.7 ng/mL Folate, 19.6 Serum Performed By: #### TSH, CMP, FERR, B12, SERFOL #### [facility] [address] [address] PROGRESS Observed: 06/21/2018 Status: COMPLETED Source: [place] 3:37 PM [facility] REPOSITORY HNO ID: [id number] Author: Jose Maurer III Service: (none) Author Type: Physician Type: Progress Notes Filed: 06/21/2018 6:02 PM Note Text: SUBJECTIVE: This is a 67 year old male that is here today for 1. s/p fx of 6 ribs complicated by L pneumothorax. Records reviewed from [facility]. Unable to locate records from [facility]. 2. ch resp. failure--on 3 l/ min during day ; but 5 l/min at night. Holding BiPap until 06/24 because of healing pneumothorax. Sleep apnea treated very well with BiPap which he uses regularly until he sustained pneumothorax. 3. ch anemia--to see Dr Murcia. Macrocytic--?due to heavy ETOH use 4. heavy ETOH use--discussed need to d/c ETOH and need for counseling. Pt not able to commit at this time. PAST MEDICAL HISTORY Diagnosis Date - Acute and chronic respiratory failure with hypoxia (HCC) - Arthritis of hand, degenerative 02/02/2014 - Benign non-nodular prostatic hyperplasia with lower urinary tract symptoms 01/09/2016 - Cardiomyopathy (HCC) - CHF (congestive heart failure) (HCC) - Chronic obstructive pulmonary disease (COPD) ([facility]) severe - Diverticulosis of colon (without mention of hemorrhage) - HTN (hypertension) - Hyperlipidemia - ICD (implantable cardioverter-defibrillator) in place - Internal hemorrhoids without mention of complication - Moderate to severe pulmonary hypertension (HCC) 04/01/2017 - NICM (nonischemic cardiomyopathy) ([facility]) - Obstructive chronic bronchitis (HCC) 08/06/2010 - PMH - PAST MEDICAL HISTORY OF cystic acne - Psoriasis 02/02/2014 - Psoriatic arthritis (HCC) 02/02/2014 - Pulmonary HTN (HCC) - PVD (peripheral vascular disease) ([facility]) - Snoring - SOB (shortness of breath) - Solitary pulmonary nodule on lung CT 05/22/2018 05/13/18: 1.3 cm x 1.1 cm spiculated nodule L upper lobe - Squamous carcinoma of lung, left (HCC) - Stage 3 severe COPD by GOLD classification ([facility]) - Systolic CHF ([facility]) Current Outpatient Prescriptions on File Prior to Visit: hydroxychloroquine (PLAQUENIL) 200 mg tablet Take 1 tablet by mouth twice daily. levothyroxine (LEVOXYL) 25 mcg tablet Take 1 tablet by mouth once daily. Take on empty stomach. For Thyroid Omeprazole 40 mg capsule Take 1 capsule by mouth once daily. fluticasone (FLONASE) 50 mcg/actuation nasal spray Use 1 [place] in each nostril once daily. atorvastatin (LIPITOR) 40 mg tablet Take 40 mg by mouth once daily. carvedilol (COREG) 6.25 mg tablet Take 6.25 mg by mouth twice daily with meals. warfarin (COUMADIN) 5 mg tablet Take 5 mg by mouth daily as directed. OXYGEN, HOME THERAPY, by Nasal Cannula route as directed. 3L under exertion and 2L at rest 09/03. losartan (COZAAR) 50 mg tablet Take 25 mg by mouth once daily. furosemide (LASIX) 40 mg tablet Take 40 mg by mouth twice daily. COMPOUNDED PRESCRIPTION Please perform nocturnal pulse oximetry on 6 lpm O2 nasal cannula. Please fax results to [phone]. Diagnosis: Very severe COPD J44.9 COMPOUNDED PRESCRIPTION Please perform nocturnal pulse oximetry on 4 lpm O2 NC. Dx= Nocturnal Hypoxemia G47.34. Please fax results to [phone]. albuterol (PROVENTIL) 2.5 mg/0.5 mL nebulizer solution Use 0.5 mL via nebulizer every 6 hours as needed. COMPOUNDED PRESCRIPTION Please perform nocturnal oximetry on 2 lpm O2 NC.DX: Chronic hypoxemic respiratory failure COMPOUNDED PRESCRIPTION Please provide disability placard. 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 End date: 07/17/2021 COMPOUNDED PRESCRIPTION 1 Units four times daily as needed. NEBULIZER FOR HOME USE. DX: COPD exacerbation COMPOUNDED PRESCRIPTION Nebulizer, Mask, AND O2 Tubing. Use as directed. albuterol HFA (PROAIR HFA) 90 mcg/actuation inhaler Inhale 2 Puffs as instructed every 4 hours as needed. aclidinium bromide (TUDORZA PRESSAIR) 400 mcg/actuation aepb Inhale 1 Inhalation as instructed twice daily. aspirin, enteric coated (ASPIRIN, ENTERIC COATED) 81 mg EC tablet Take 1 tablet by mouth once daily. COMPOUNDED PRESCRIPTION 2L of O2 at night. Length of need 99 months. Dx: COPD. COMPOUNDED PRESCRIPTION Please enroll in pulmonary rehab for severe obstructive airway disease.Adjust O2 prn spo2 >90%.Pre and post rehabilitation 6 minute walk test or exercise stress test to develop the exercise prescription and to monitor outcomes. cholecalciferol (VITAMIN D) 1,000 unit tab tablet Taking 1000 IU 800 am and 800 pm budesonide-formoterol (SYMBICORT) 160-4.5 mcg/actuation inhaler Inhale 2 Puffs as instructed twice daily. No current facility-administered medications on file prior to visit. FAMILY HISTORY Problem Relation Age of Onset - Ischemic Heart Disease Mother - Cancer Father brain cancer - Diabetes Maternal Grandmother - Stroke Brother Social History Substance Use Topics - Smoking status: Former Smoker Packs/day: 0.50 Years: 30.00 Types: Cigarettes Quit date: 08/21/2011 - Smokeless tobacco: Never Used - Alcohol use Yes Comment: drinks 3 beer daily BP 128/72 Pulse 89 Resp 18 Wt 68.5 kg (151 lb) BMI 25.13 kg/m? . OBJECTIVE: APPEARANCE Well appearing, alert, in no acute distress, well-hydrated, well nourished. and Portable oxygen news while walking down the hallway to the office. NECK Supple, no adenopathy; thyroid symmetric, normal size, no bruits HEART RRR with normal S1 and S2, no murmurs, no gallops, no JVD appreciated LUNG clear to auscultation, distant breath sounds. No wheezing ABDOMEN soft, non-tender, non-distended, without organomegaly or palpable masses, no hepatomegaly, no tenderness to palpation EXTREMITIES No edema ASSESSMENT: COPD with acute exacerbation--improved Stage III severe COPD by Gold classification ch respiratory failure--stable on O2 Pneumothorax?healing Macrocytic anemia?probably related to chronic alcohol use Problematic alcoholic consumption Sleep apnea--well controlled with BiPAP Squamous carcinoma of the left lung?new diagnosis Peripheral vascular disease?stable PLAN: healthy diet follow up with Dr Murcia as appointed strongly recommend that you seek alcohol counseling same medications for now labs as ordered RAÚL Colunga MD, III MD CNOV Observed: 06/21/2018 Status: COMPLETED Source: [place] 3:00 PM [facility] REPOSITORY Office Visit (FAMPWS) IKEJIGNESH ([id number]) 1950 M NFR Date Time Provider Department 06/21/18 3:00 PM JOSE MAURER III During your visit today, we recorded the following information about you: Pulse Respiration Blood pressure Weight 89/minute 18/minute 128/72 68.5 kg Jose Maurer III MD 06/21/2018 6:02 PM Signed SUBJECTIVE: This is a 67 year old male that is here today for 1. s/p fx of 6 ribs complicated by L pneumothorax. Records reviewed from [facility]. Unable to locate records from [facility]. 2. ch resp. failure--on 3 l/ min during day ; but 5 l/min at night. Holding BiPap until 06/24 because of healing pneumothorax. Sleep apnea treated very well with BiPap which he uses regularly until he sustained pneumothorax. 3. ch anemia--to see Dr Murcia. Macrocytic--?due to heavy ETOH use 4. heavy ETOH use--discussed need to d/c ETOH and need for counseling. Pt not able to commit at this time. PAST MEDICAL HISTORY Diagnosis Date - Acute and chronic respiratory failure with hypoxia (HCC) - Arthritis of hand, degenerative 02/02/2014 - Benign non-nodular prostatic hyperplasia with lower urinary tract symptoms 01/09/2016 - Cardiomyopathy (HCC) - CHF (congestive heart failure) (HCC) - Chronic obstructive pulmonary disease (COPD) (HCC) severe - Diverticulosis of colon (without mention of hemorrhage) - HTN (hypertension) - Hyperlipidemia - ICD (implantable cardioverter-defibrillator) in place - Internal hemorrhoids without mention of complication - Moderate to severe pulmonary hypertension (HCC) 04/01/2017 - NICM (nonischemic cardiomyopathy) (HCC) - Obstructive chronic bronchitis (HCC) 08/06/2010 - PMH - PAST MEDICAL HISTORY OF cystic acne - Psoriasis 02/02/2014 - Psoriatic arthritis (HCC) 02/02/2014 - Pulmonary HTN (HCC) - PVD (peripheral vascular disease) (HCC) - Snoring - SOB (shortness of breath) - Solitary pulmonary nodule on lung CT 05/22/2018 05/13/18: 1.3 cm x 1.1 cm spiculated nodule L upper lobe - Squamous carcinoma of lung, left (HCC) - Stage 3 severe COPD by GOLD classification ([facility]) - Systolic CHF (HCC) Current Outpatient Prescriptions on File Prior to Visit: hydroxychloroquine (PLAQUENIL) 200 mg tablet Take 1 tablet by mouth twice daily. levothyroxine (LEVOXYL) 25 mcg tablet Take 1 tablet by mouth once daily. Take on empty stomach. For Thyroid Omeprazole 40 mg capsule Take 1 capsule by mouth once daily. fluticasone (FLONASE) 50 mcg/actuation nasal spray Use 1 [place] in each nostril once daily. atorvastatin (LIPITOR) 40 mg tablet Take 40 mg by mouth once daily. carvedilol (COREG) 6.25 mg tablet Take 6.25 mg by mouth twice daily with meals. warfarin (COUMADIN) 5 mg tablet Take 5 mg by mouth daily as directed. OXYGEN, HOME THERAPY, by Nasal Cannula route as directed. 3L under exertion and 2L at rest /. losartan (COZAAR) 50 mg tablet Take 25 mg by mouth once daily. furosemide (LASIX) 40 mg tablet Take 40 mg by mouth twice daily. COMPOUNDED PRESCRIPTION Please perform nocturnal pulse oximetry on 6 lpm O2 nasal cannula. Please fax results to [phone]. Diagnosis: Very severe COPD J44.9 COMPOUNDED PRESCRIPTION Please perform nocturnal pulse oximetry on 4 lpm O2 NC. Dx= Nocturnal Hypoxemia G47.34. Please fax results to [phone]. albuterol (PROVENTIL) 2.5 mg/0.5 mL nebulizer solution Use 0.5 mL via nebulizer every 6 hours as needed. COMPOUNDED PRESCRIPTION Please perform nocturnal oximetry on 2 lpm O2 NC.DX: Chronic hypoxemic respiratory failure COMPOUNDED PRESCRIPTION Please provide disability placard. 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 End date: 07/17/2021 COMPOUNDED PRESCRIPTION 1 Units four times daily as needed. NEBULIZER FOR HOME USE. DX: COPD exacerbation COMPOUNDED PRESCRIPTION Nebulizer, Mask, AND O2 Tubing. Use as directed. albuterol HFA (PROAIR HFA) 90 mcg/actuation inhaler Inhale 2 Puffs as instructed every 4 hours as needed. aclidinium bromide (TUDORZA PRESSAIR) 400 mcg/actuation aepb Inhale 1 Inhalation as instructed twice daily. aspirin, enteric coated (ASPIRIN, ENTERIC COATED) 81 mg EC tablet Take 1 tablet by mouth once daily. COMPOUNDED PRESCRIPTION 2L of O2 at night. Length of need 99 months. Dx: COPD. COMPOUNDED PRESCRIPTION Please enroll in pulmonary rehab for severe obstructive airway disease.Adjust O2 prn spo2 >90%.Pre and post rehabilitation 6 minute walk test or exercise stress test to develop the exercise prescription and to monitor outcomes. cholecalciferol (VITAMIN D) 1,000 unit tab tablet Taking 1000 IU 800 am and 800 pm budesonide-formoterol (SYMBICORT) 160-4.5 mcg/actuation inhaler Inhale 2 Puffs as instructed twice daily. No current facility-administered medications on file prior to visit. FAMILY HISTORY Problem Relation Age of Onset - Ischemic Heart Disease Mother - Cancer Father brain cancer - Diabetes Maternal Grandmother - Stroke Brother Social History Substance Use Topics - Smoking status: Former Smoker Packs/day: 0.50 Years: 30.00 Types: Cigarettes Quit date: 08/21/2011 - Smokeless tobacco: Never Used - Alcohol use Yes Comment: drinks 3 beer daily BP 128/72 Pulse 89 Resp 18 Wt 68.5 kg (151 lb) BMI 25.13 kg/m? . OBJECTIVE: APPEARANCE Well appearing, alert, in no acute distress, well- hydrated, well nourished. and Portable oxygen news while walking down the hallway to the office. NECK Supple, no adenopathy; thyroid symmetric, normal size, no bruits HEART RRR with normal S1 and S2, no murmurs, no gallops, no JVD appreciated LUNG clear to auscultation, distant breath sounds. No wheezing ABDOMEN soft, non-tender, non-distended, without organomegaly or palpable masses, no hepatomegaly, no tenderness to palpation EXTREMITIES No edema ASSESSMENT: COPD with acute exacerbation--improved Stage III severe COPD by Gold classification ch respiratory failure--stable on O2 Pneumothorax?healing Macrocytic anemia?probably related to chronic alcohol use Problematic alcoholic consumption Sleep apnea--well controlled with BiPAP Squamous carcinoma of the left lung?new diagnosis Peripheral vascular disease?stable PLAN: healthy diet follow up with Dr Murcia as appointed strongly recommend that you seek alcohol counseling same medications for now labs as ordered RAÚL Colunga MD, III MD Frank A Cebul, III MD 06/21/2018 3:56 PM Signed PLAN: healthy diet follow up with Dr Murcia as appointed strongly recommend that you seek alcohol counseling same medications for now labs as ordered Jose Maurer III MD Referring Provider: [facility] [[id number]] Allergies As of Date: 06/21/2018 (No Known Allergies) Date Reviewed: 06/21/2018 Reviewed by: Gardenia Renteria) ROGERIO Richards - Fully Assessed Reason for Visit: [facility] follow up [Other] Cmt: collapsed lung Primary Visit Diagnosis:Chronic respiratory failure with hypoxia (HCC) [J96.11] Other Visit Diagnoses:Obstructive chronic bronchitis (HCC) [J44.9] Chronic obstructive pulmonary disease with acute exacerbation (HCC) [J44.1] Anemia, unspecified type [D64.9] Peripheral vascular disease (HCC) [I73.9] Macrocytic anemia [D53.9] Heavy alcohol use [Z78.9] Order(s):FOLATE SERUM [SQSERFOL] Order #: [id number] FUTURE VITAMIN B12 BLOOD [SQB12] Order #: [id number] FUTURE FERRITIN BLD [SQFERR] Order #: [id number] FUTURE COMP METABOLIC PANEL [SQCMP] Order #: [id number] FUTURE Prescriptions as of 06/21/2018 Sig: FOLIC ACID 400 MCG TABLET Take 400 mcg by mouth once da* HYDROXYCHLOROQUINE 200 MG TAB* Take 1 tablet by mouth twice * LEVOTHYROXINE 25 MCG TABLET Take 1 tablet by mouth once d* OMEPRAZOLE 40 MG CAPSULE,MARÍA* Take 1 capsule by mouth once * FLUTICASONE 50 MCG/ACTUATION * Use 1 [place] in each nostril o* ATORVASTATIN 40 MG TABLET Take 40 mg by mouth once wilian* CARVEDILOL 6.25 MG TABLET Take 6.25 mg by mouth twice d* WARFARIN 5 MG TABLET Take 5 mg by mouth daily as d* OXYGEN (HOME THERAPY) by Nasal Cannula route as dir* LOSARTAN 50 MG TABLET Take 25 mg by mouth once wilian* FUROSEMIDE 40 MG TABLET Take 40 mg by mouth twice raheem* COMPOUNDED PRESCRIPTION Please perform nocturnal puls* COMPOUNDED PRESCRIPTION Please perform nocturnal puls* ALBUTEROL SULFATE CONCENTRATE* Use 0.5 mL via nebulizer ever* COMPOUNDED PRESCRIPTION Please perform nocturnal oxim* COMPOUNDED PRESCRIPTION Please provide disability monika* COMPOUNDED PRESCRIPTION 1 Units four times daily as n* COMPOUNDED PRESCRIPTION Nebulizer, Mask, AND O2 Tubing.* ALBUTEROL SULFATE HFA 90 MCG/* Inhale 2 Puffs as instructed * ACLIDINIUM BROMIDE 400 MCG/AC* Inhale 1 Inhalation as instru* ASPIRIN 81 MG TABLET,DELAYED * Take 1 tablet by mouth once d* COMPOUNDED PRESCRIPTION 2L of O2 at night. Length of* COMPOUNDED PRESCRIPTION Please enroll in pulmonary re* CHOLECALCIFEROL (VITAMIN D3) * Taking 1000 IU 800 am and 800* BUDESONIDE-FORMOTEROL HFA 160* Inhale 2 Puffs as instructed * Problem List As Of Date 06/21/2018 Noted Resolved DYSMETABOLIC SYNDROME X [E88.81] INVALID FOR* OBST CHRON BRONCHITIS WITH EXAC [J44.1] INVALID FOR*06/21/2018 Tobacco use disorder [F17.200] INVALID FOR*01/09/2016 Obstructive chronic bronchitis [J44.9] INVALID FOR* Arthritis of hand, 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] INVALID FOR* Psoriatic arthritis (HCC) [L40.50] INVALID FOR* Psoriasis [L40.9] INVALID FOR* Benign non-nodular prostatic hyperplasia with l*INVALID FOR* Encounter for long-term (current) use of medica*INVALID FOR* Hypothyroidism [E03.9] INVALID FOR* Venous stasis dermatitis of right lower extremi*INVALID FOR* 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] INVALID FOR* CHF (congestive heart failure) (HCC) [I50.9] Cardiomyopathy (HCC) [I42.9] ICD (implantable cardioverter-defibrillator) in* Moderate to severe pulmonary hypertension (HCC)*INVALID FOR* Anemia [D64.9] 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 *INVALID FOR* Gastroesophageal reflux disease [K21.9] INVALID FOR* Heavy alcohol use [Z78.9] INVALID FOR* Right rib fracture [S22.31XA] INVALID FOR* Acute respiratory failure (HCC) [J96.00] INVALID FOR*06/21/2018 Coronary arteriosclerosis in [place] artery [I25*INVALID FOR* Chronic obstructive pulmonary disease with acut*INVALID FOR* Chronic respiratory failure (HCC) [J96.10] INVALID FOR* Severe chronic obstructive pulmonary disease (H*INVALID FOR* Diverticulosis of colon [K57.30] INVALID FOR* Dyspnea, unspecified [R06.00] INVALID FOR* Hyperlipidemia [E78.5] INVALID FOR* History of cardiac catheterization [Z98.890] INVALID FOR* Peripheral vascular disease (HCC) [I73.9] INVALID FOR* Solitary pulmonary nodule on lung CT [R91.1] INVALID FOR* More... Other instructions from your clinician: PLAN: healthy diet follow up with Dr Murcia as appointed strongly recommend that you seek alcohol counseling same medications for now labs as ordered Jose Maurer III MD Medications Discontinued During This Encounter vitamin with folic acid 1 m* 30 t* 0 05/17/2018 06/21/2018 Class: Print RX Route: ORAL Sig: Take 1 tablet by mouth once daily. Disc: Discontinued by Patient oxyCODONE IR (ROXICODONE) 5 mg immed* 35 t* 0 05/25/2018 06/21/2018 Class: Print RX Route: ORAL Sig: Take 1 tablet by mouth every 4 hours as needed for Pain (max 5 /day) for up to 7 days. Earliest Fill Date: 05/25/18 Disc: Discontinued by Patient folic acid 1 mg tablet 100 * 3 05/20/2018 06/21/2018 Class: Print RX Route: ORAL Sig: Take 1 tablet by mouth once daily. Disc: Discontinued by Patient COMPOUNDED PRESCRIPTION 6 Ea* 4 09/11/2016 06/21/2018 Class: Print RX Sig: Knee high support stockings . 20-30 weight DIAGNOSIS: Venous insufficency I87.2 Disc: Discontinued by Patient COMPOUNDED PRESCRIPTION 1 De* 0 05/20/2018 06/21/2018 Class: Print RX Sig: chair stair lift Dx COPD, CHF 05/20/18 Disc: Discontinued by Patient Encounter Status:Closed by JOSE MAURER III, MD on 06/21/18 ONCOLOGY HISTORY AND Observed: 06/21/2018 Status: F Source: [facility] 12:07 PM [facility] REPOSITORY [facility] Medical Records Department [address] [place] [address] History and Physical 06/21/18 1146 MR#: [id number] Acct: [id number] Name: JIGNESH RAMIRES Rep #: [id number] : 1950 67 From: Jillian Burton MD PCP: Jose Maurer III, MD Status: REG RCR Y Location: OMD - Problem List (1) Cancer of upper lobe of left lung Status: Acute Subjective Date of Service:: 06/21/18 Chief Complaint: Lung cancer, new diagnosis History of Present Illness: Patient is a 67-year-old male who quit smoking in 2008, has severe oxygen dependent COPD, significant atherosclerotic arterial vascular disease, and alcohol dependence. He suffered an accidental fall in April 2018 and sustained multiple rib fractures and a CT scan of the chest showed a suspicious left upper lobe lung nodule measuring 1.3 cm in maximum diameter and confirmed to be in non-small cell carcinoma, squamous histology favored on a biopsy on June 08, 2018. The biopsy was complicated with a pneumothorax that required chest tube drainage from which he recovered without sequela. CT scan of the chest, abdomen and head do not suggest metastatic disease. He is scheduled for a PET CT June 28, 2018. 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 Living Will: Yes Health History: Past Medical History Cancer: Lung cancer Past Medical History (Last Reviewed 06/21/18 @ 11:07 by Shona Kinney) Left ventricular thrombus (Acute) Nonischemic cardiomyopathy (Chronic) Severe left ventricular systolic dysfunction (Chronic) 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) PVD (peripheral vascular disease) (Chronic) Stage 3 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) PND (paroxysmal nocturnal dyspnea) (Chronic) Hyperlipidemia (Chronic) SOB (shortness of breath) (Acute) assisted current use of anticoagulant (Chronic) Acute on chronic respiratory failure with hypoxia (Resolved) Psoriatic arthritis (Chronic) CHF (congestive heart failure), NYHA class I (Chronic) Pulmonary hypertension (Chronic) CAP (community acquired pneumonia) (Resolved) Chronic respiratory failure with hypoxia and hypercapnia (Resolved) Past Surgical History (Last Reviewed 06/21/18 @ 11:07 by Shona Kinney) Implantable cardioverter-defibrillator (ICD) in situ (Chronic 12/27/16) History of left heart catheterization (Chronic) Family History (Last Reviewed 06/21/18 @ 11:07 by Shona Kinney) Mother Heart disease Brother CVA (cerebral vascular accident) Father Cancer Grandmother Diabetes Allergies/Adverse Reactions: Allergy/AdvReac Type Severity Reaction Status Date / Time No Known Allergies Allergy Verified 06/16/18 12:42 Risk Factors Social History Social History: No changes Smoking Status Former smoker Tobacco Risk Data: Tobacco Risk Smoking Status Former smoker Type of tobacco: Smokeless tobacco usage: Items/Day: Year started: Years used: 40 Counseled to quit/cut down: Reason for no counseling performed: Reason for no pharmacotherapy: Tobacco use comments: Passive smoke exposure: No Substance Risk Drug use: No Caffeine use [drinks/day]: 2 Alcohol use: No Type of alcohol: Drinks per day: Has patient felt the need to cut down: Has the patient been annoyed by complaints: Has the patient felt guilty about drinking: Has the 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 Denies: Fever, Sweats, Chills Cardiovascular:: Reports: Dyspnea on exertion, Shortness of breath. Denies: Chest pain, Palpitations, Orthopnea, PND Respiratory: Reports: Cough - Chronic, did not appreciate a change in character, Shortness of breath at rest - On oxygen, Shortness of breath upon exertion. Denies: Hemoptysis, Shortness of Breath, Wheezing Gastrointestinal:: Denies: Abdominal pain, Nausea, Vomiting, Diarrhea, Constipation, Hematochezia Genitourinary: Denies: Dysuria, Hematuria, 15, Flank pain Musculoskeletal:: Reports: Arthritis - Psoriatic, - - Ribs pain following the fall is improving and he is off analgesics now. Denies: Back pain, Myalgia, Arthralgia Skin: Reports: Lesions - Chronic skin lesions dating back to childhood, - - Easy bruising. Denies: Rash, Skin Changes, Wounds Neurological:: Denies: Headache, Dizziness, Visual changes, Tinnitus, Hearing loss Psychiatric: Denies: Anxiety, Depression, Homicidal Ideations, Suicidal Ideations Vital Signs Height 5 ft 5 in Weight: 68.855 kg Weight in Pounds 151.8 lbs Pulse Ox 99 - Physical Exam General: Alert, Oriented x3, No apparent distress, - - Chronic ill look, on oxygen, ECOG 2 HEENT: Atraumatic, PERRLA, EOMI, Normocephalic Oropharynx:: Dry mucosa Neck:: Supple, Trachea midline. Negative for: JVD, bilateral Cardiac:: Regular rate, Regular rhythm, Normal S1, Normal S2. Negative for: Murmur Lungs: Clear to auscultation, Diminished - Markedly on both sides, Excusion symmetrical. Negative for: Rhonchi, Wheezes Abdomen:: Soft, Non-tender, Non-distended. Negative for: Hepatosplenomegaly Extremities:: Negative for: Cyanosis, Edema Neurological: Neuro grossly intact Skin:: Lesions - Multiple skin lesions most notable on the trunk and a lipomatous lesion on the back all of which patient reports date back for all of his life. Negative for: Rash, Petechiae, Ecchymosis Psychiatric:: Appropriate affect, Euthymic Lymphatics:: Negative for: Cervical lymphadenopathy, Supraclavicular lymphadenopathy, Axillary lymphadenopathy Diagnostic Data: I personally reviewed patient's CT scan of the chest of April 2018 and concur with the finding of a left upper lobe suspicious nodule. Assessment and Plan 67-year-old male with left upper lobe non-small cell lung cancer (squamous histology). Disease appears to be localized in the chest but patient has an impaired performance status from his chronic lung and cardiac disease and has significant oxygen dependent COPD, atherosclerotic arterial disease, cardiac disease, dyslipidemia, psoriatic arthritis, on chronic anticoagulation because of history of left ventricular thrombus. All these comorbidities preclude surgical resection as primary treatment. Plan: 1. PET/CT for further staging. 2. Radiation oncology consultation for primary treatment if no metastatic disease is identified. 3. We will follow-up after PET/CT. Primary Care Provider: Jose Maurer Referring Provider: 06/21/18 1207 <Electronically signed by Jillian Burton MD> Date Jillian Burton MD Cosigner Signature: Date (if applicable) CC: Jose Maurer III, MD; Jillian Burton MD; Sai Kaur DO Signed FECAL OCCULT BLD Collected: 06/20/2018 Status: F Source: [facility] 3:30 PM [facility] REPOSITORY TYPE CODE TESTS RESULT OUT OF REFERENCE UNITS RANGE LAB IFO Negative Immuno Negative FOB Result Comment: This test was developed and its performance characteristics determined by [facility] [place] [facility]). It has not been cleared or approved by the FDA. -[facility] is regulated under CLIA as qualified to perform high-complexity testing. This test is used for clinical purposes. It should not be regarded as investigational or for research. Performed By: #### IFOBT #### [facility] [address], [place] [address] PULMONARY VISIT REPORT Observed: 06/17/2018 Status: F Source: [place] 10:22 AM [facility] REPOSITORY [facility] [address] [place] [address] OFFICE VISIT Date of Service: 06/16/18 MR#: [id number] Acct: [id number] Name: JIGNESH RAMIRES Rep #: [id number] : 1950 Provider: Cheryl Schaeffer Age/Sex: 67/M [place] [facility] [place] Status: Signed Assessment AND Plan 1. Pneumothorax after biopsy J95.811 Plan Resolved. Chest tube suture removed. Site healing, no signs of infection. Band-Aid in place. 2. Squamous cell carcinoma of left lung C34.92 Plan New. PET scan ordered for cancer staging. Patient is unable to have MRI of the brain secondary to implanted AICD. Recently had CT of the brain at [facility] for trauma workup. Referral made to 2 separate oncologist as the has requested to get 2 opinions before beginning treatment. Keep previously scheduled routine follow-up to discuss further plan and to review input from oncology referral. 3. Stage 3 severe COPD by GOLD classification J44.9 Plan Does not appear to be an exacerbation of COPD today. No need for prednisone or antibiotic. Continue current maintenance medication. No additional testing at this time. Contact the office for any new or worsening symptoms. An acute visit and typically be arranged within 1-2 days. Follow-up as scheduled. Continue Spiriva Respimat, evaluate possibility of returning to [facility] once patient achieves better inspiratory effort. 4. Acute respiratory failure with hypoxia J96.01 Plan Continue to titrate supplemental oxygen as needed to maintain saturations 89-92%. May resume noninvasive ventilator in 1 more week. The patient is using and benefiting from supplemental oxygen. Contact the office with any new or worsening symptoms. Plan Detail Other Orders Orders: Referrals: HPI f/u: Chief Complaint: Shortness of breath HPI Comments Details: This patient presents to the office today for a short interval follow-up after developing a pneumothorax status post left lung biopsy. He is ambulatory, on nasal cannula oxygen and accompanied by his . He has followed recommendations to wear supplemental oxygen [id number] since being discharged from the hospital after the chest tube was removed. He has not resume use of his noninvasive ventilator as of yet. He has maintained compliance with all of his maintenance medications, still is unable to give the inspiratory effort appropriate or needed to activate the Tudorza. Therefore, he continues on Spiriva Respimat. He continues compliance with Symbicort 2 puffs twice daily, reports that he rinses his mouth out after each use and denies any medication side effects such as sore throat or thrush. He is currently utilizing his albuterol rescue inhaler every morning upon arising. He believes that using this first thing in the morning makes his maintenance medications more effective. He is using his albuterol nebulizer 2-3 times daily, he does find some temporary relief of his shortness of breath after use. He has not yet resumed his Coumadin, as directed can resume the Coumadin on June 17. He reports that he is having difficulty taking a deep breath. He admits that he has not been using his incentive spirometer recently. He has shortness of breath at all times, worsened with activity and somewhat relieved or alleviated with rest. He has chest heaviness, chest tightness and wheezing. He has a cough that is productive of clear to pale yellow sputum at times, most often is dry. He denies any hemoptysis. He reports that he has had a diminished appetite and has lost 10 pounds over the past month. He denies any fever, chills or body aches. See complete review of systems. Chest x-ray completed on June 15, 2018 shows no evidence of pneumothorax. 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: No Accompanied by: Is patient in pain?: Yes Allergies No Known Allergies Allergy (Verified 06/16/18 12:42) Medications Hydroxychloroquine [Plaquenil] 200 mg PO BIDCM 08/27/16 [History Confirmed 06/16/18] Multivitamin [Multiple Vitamins] 1 ea PO DAILY 08/27/16 [History Confirmed 06/16/18] Omeprazole Magnesium 40 mg PO DAILY 08/27/16 [History Confirmed 06/16/18] aspirin 81 mg chewable tablet 81 mg PO .QOD tab 10/15/17 [History Confirmed 06/16/18] carvedilol 6.25 mg tablet 6.25 mg PO BID 10/15/17 [History Confirmed 06/16/18] cholecalciferol (vitamin D3) 2,000 unit capsule 1,000 unit PO BID cap 10/15/17 [History Confirmed 06/16/18] fluticasone 50 mcg/actuation nasal spray,suspension 2 spray INTRANASAL BID PRN PRN g 10/15/17 [History Confirmed 06/16/18] levothyroxine 25 mcg capsule 25 mcg PO DAILY cap 10/15/17 [History Confirmed 06/16/18] warfarin 5 mg tablet 5 mg PO .COMPLEX tab 02/09/18 [History Confirmed 06/16/18] albuterol sulfate 2.5 mg/3 mL (0.083 %) solution for nebulization 2.5 mg INHALATION Q6HWA.RT #180 vial 03/03/18 [Rx Confirmed 06/16/18] albuterol sulfate HFA 90 mcg/actuation aerosol inhaler 2 puff INHALATION Q4H PRN PRN #18 g 03/30/18 [Rx Confirmed 06/16/18] Albuterol IH (ProAir) [Proair Hfa] 1 puff INHALATION Q4H PRN PRN 06/10/18 [History Confirmed 06/16/18] Atorvastatin Calcium [Lipitor] 40 mg PO QHS 06/10/18 [History Confirmed 06/16/18] Budesonide/Formoterol 160/4.5 [Symbicort 160/4.5 Mcg Inhaler (SP)] 2 puff INHALATION BID 06/10/18 [History Confirmed 06/16/18] Furosemide [Lasix] 40 mg PO BID 06/10/18 [History Confirmed 06/16/18] Tiotropium [place] [Spiriva] 2 puff IH DAILY 06/10/18 [History Confirmed 06/16/18] losartan 50 mg tablet 25 mg PO DAILY tab 06/16/18 [History Confirmed 06/16/18] [facility] Medical History Left ventricular thrombus (Acute) Nonischemic cardiomyopathy (Chronic) Severe left ventricular systolic dysfunction (Chronic) 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) PVD (peripheral vascular disease) (Chronic) Stage 3 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) PND (paroxysmal nocturnal dyspnea) (Chronic) Hyperlipidemia (Chronic) 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) Acute on chronic respiratory failure with hypoxia (Resolved) Psoriatic arthritis (Chronic) CHF (congestive heart failure), NYHA class I (Chronic) Pulmonary hypertension (Chronic) CAP (community acquired pneumonia) (Resolved) Chronic respiratory failure with hypoxia and hypercapnia (Resolved) Surgical History Implantable cardioverter-defibrillator (ICD) in situ (Chronic 12/27/16) History of left heart catheterization (Chronic) Family History Mother Heart disease Brother CVA (cerebral vascular accident) Father Cancer brain Grandmother Diabetes Social History Smoking Status: Former smoker how long ago did patient quit smokin, 1.5p/day second hand exposure: Yes alcohol intake: never substance use type: does not use caffeine: Yes Type: coffee Number of servings: 2 what type of physical activity do you participate in: walking frequency: 3-4 times per week Review of Systems Const CONSTITUTIONAL: Positive fatigue; negative anorexia, body ache, chills, daytime sleepiness, fever(s), night sweats, oral thrush, stops breathing during sleep, weight loss, sleeping in chair, weight loss, weight gain, frequent colds, seasonal allergies, other, headache(s) or orthopnea EETM Ear Nose Throat Mouth: Positive hearing normal and post nasal drip; negative hard of hearing, hoarseness, dry mouth in morning, change in vision, itchy eyes, eye pain, swallowing Difficulty, ear pain, nose bleed, headache(s), mouth pain, nasal congestion, nasal discharge, sinus pain, sinus pressure, sore throat or other Cardio Cardiovascular: Negative chest pain, chest pain at rest, chest pain with activity, irregular heart rhythm, edema, shortness of breath when lying down, palpitations, murmur or other Resp Respiratory: Positive as per HPI, shortness of breath and cough cough: Positive productive color: Positive green and clear; negative pain with cough, wheezing, chest congestion, chest tightness, pain on inspiration, inhalers, increase use of rescue inhalers, snoring, apnea or other Gastro Gastrointestional: Negative bloody stools, change in appetite, difficulty swallowing, reflux, hematemesis, melena stool, loose stool, constipation or other Genitourinary: Negative blood in urine, nocturia, pain with urination or other Musc Musculoskeletal: Negative body pain, back pain, neck pain or other Skin/Breast Skin/Breast: Negative dry skin, itching, rash, unusual bruising, breast lump or other Neuro Neurological: Negative restless legs, confusion, weakness or other Psych Psychocological: Negative abnormal sleep pattern, anxiety, thoughts of hurting self/others, hopelessness or other Lymph Lymphatic: Negative easy bleeding, easy bruising, swollen lymph nodes or other Exam Const Constitutional: Positive conversant, cooperative, in no acute respiratory distress, well developed, well nourished, good hygiene, frail appearing, wearing supplemental oxygen and dyspenic Head Head: Positive normocephalic and atraumatic; negative cyanosis of lips/distal nose Eyes Eye: Positive clear conjunctiva; negative nystagmus or scleral abnormality Ears Ear: Positive hearing normal and external ears normal; negative hard of hearing Nose Nose: Positive external nose normal and no nasal discharge; negative epistaxis Mouth Mouth: Positive post nasal drip, oral mucosae normal, no lesions and crowded posterior oropharynx; negative malodorous breath or oral thrush present Mallampati Score: III: Mallampati Score Neck Neck: Positive normal visual inspection, full ROM and trachea midline; negative lymphadenopathy, JVD or tender Chest Wall Chest: Positive symmetric chest movement and increased A/P diameter Resp lung sounds: Positive diminished, prolonged expiratory time and increased work of breathing; negative rhonchi, rales, dullness to percussion, wheezes or use of accessory muscles Cardio Cardiac: Positive regular rate, regular rhythm, S1 normal and S2 normal; negative murmur GI GI: Positive normal to inspection; negative distended Genitourinary: Positive deferred Musc Musculoskeletal: Positive steady gait and ROM normal; negative kyphosis or scoliosis Skin Pulmonary Skin Exam: Positive intact and dermal atrophy; negative rash Pulses Pulse: Yes pulses normal x4 extremities Extremities Extremities: Yes capillary refill normal, No clubbing, No cyanosis, No edema Neuro Neurologic: Yes conversant, Yes no focal neuro deficits, Yes normal concentration, Yes understands questions, Yes cooperative, Yes normal cognition, Yes normal coordination Lymph Lymphatic: No lymphadenopathy, No tenderness, No cervical adenopathy Psych Appearance: Positive grossly normal, eye contact and well kempt Mental Status: Positive mental status grossly normal Mood: Positive congruent mood Affect: Positive normal affect Coding Level of Care Code Off vis,est,level 4 Diagnoses Pneumothorax after biopsy J95.811 Squamous cell carcinoma of left lung C34.92 Laterality: left Stage 3 severe COPD by GOLD classification J44.9 Acute respiratory failure with hypoxia J96.01 06/17/18 1022 <Electronically signed by Cheryl Schaeffer NP-C> Date Cheryl HESSC Cosigner Signature: Date (if applicable) CC: Jose Maurer III, MD CHEST PA AND LATERAL Observed: 06/15/2018 Status: F Source: [place] 11:29 AM [facility] REPOSITORY [facility] Imaging Services [address] [place] [id number] Chest PA and Lateral MR#: [id number] Acct: [id number] Name: JIGNESH RAMIRES Rep #: [id number] : 1950 M 67 From: Sebastien Zheng MD PCP: Jose Maurer III, MD Status: REG CLI Study: Chest PA and Lateral Date of Exam: 06/15/18 Exam# [id number] Ordering Dr: Cheryl Schaeffer STUDY: X-RAY CHEST REASON FOR EXAM: Male, 67 years old. Dyspnea and shortness of breath. History of prior left-sided pneumothorax following the biopsy. TECHNIQUE: PA and lateral views of the chest. COMPARISON: Comparison is made with prior examination dated June 11, 2018. FINDINGS: Stable elevation of the right hemidiaphragm with blunting of the right costophrenic angle. There is no evidence of pneumothorax. Stable increased markings in the lingular segment of the left upper lobe suggestive of scarring. Normal size heart. A left-sided unipolar pacemaker is seen. Normal mediastinum and carina. Normal visualized pulmonary arteries. There is atherosclerotic calcification of the aortic arch with tortuosity. There are diffuse degenerative changes of the visualized thoracic spine. Normal visualized ribs, clavicles, and shoulders. There is no demonstrated abnormality of the visualized soft tissue structures of the upper abdomen. RAD/Chest PA and Lateral IMPRESSION: There is no evidence of pneumothorax. Electronically Signed: Sebastien Zheng MD at 12:14 EDT Tel [phone], Service support , CC: Cheryl Schaeffer; Jose Maurer III, MD Out[place]wer: Signed CHEST 1 VIEW Observed: 06/11/2018 Status: F Source: [place] (PORTABLE) 12:37 PM [facility] REPOSITORY [facility] Imaging Services [address] [place] [address] Chest 1 View (Portable) MR#: [id number] Acct: [id number] Name: JIGNESH RAMIRES Rep #: [id number] : 1950 M 67 From: Sebastien Zheng MD PCP: Jose Maurer III, MD Status: ADM IN Study: Chest 1 View (Portable) Date of Exam: 06/11/18 Exam# [id number] Ordering Dr: Angel Gary DO STUDY: X-RAY CHEST REASON FOR EXAM: Male, 67 years old. Pneumothorax. Post chest tube removal. TECHNIQUE: Single AP portable view of the chest. COMPARISON: Comparison is made with prior chest radiograph done earlier today. FINDINGS: The left-sided chest tube has been removed. EKG electrode are seen. Stable subcutaneous emphysema overlying the left lateral chest wall. 1.7 cm nodule in the lingular segment of the left upper lobe. Stable increased markings at the right lung base with blunting of the right costophrenic angle RAD/Chest 1 View (Portable) IMPRESSION: Removal of the left-sided chest tube. There is no evidence of pneumothorax. Stable pleural parenchymal changes at the right lung base as well as subcutaneous emphysema overlying the left hemithorax. Electronically Signed: Sebastien Zheng MD at 13:16 EDT Tel [phone], Service support , CC: Angel Gary D.O.; Jose Maurer III, MD Outsewer: Signed CONSULTATION Observed: 06/11/2018 Status: F Source: [place] 12:35 PM [facility] REPOSITORY [facility] Medical Records Department [address] [place] [address] Consultation 06/11/18 0700 MR#: [id number] Acct: [id number] Name: JIGNESH RAMIRES Rep #: [id number] : 1950 67 From: Angel Gary DO PCP: Jose Maurer III, MD Status: ADM IN Y Location: [place] [address] Reason for Consult Date of Consultation: 06/11/18 Reason for Consultation: Iatrogenic pneumothorax History of Present Illness: The patient is a 67-year-old male, with a history as outlined below, who presented to the emergency department at the urging of the pulmonary medicine clinic on June 11 with worsening shortness of breath. The patient has known stage III COPD, for which she is followed by Dr. Rodríguez on an outpatient basis. The patient has a known underlying pulmonary nodule, for which he underwent a CT-guided lung biopsy on June 08. The patient did sustain an iatrogenic pneumothorax as a consequence of that procedure. However, the patient was discharged home. I did advise the patient on the evening after his procedure not to utilize his trilogy home noninvasive ventilator over concerns that the pneumothorax would worsen. The patient then contacted the pulmonary medicine office yesterday with complaints of worsening shortness of breath. He was subsequently referred to the emergency department, at which time, radiographic imaging did confirm the presence of a moderate sized left-sided pneumothorax, for which the patient underwent tube thoracotomy. He was maintained on wall suction overnight with interval resolution of the previously noted pneumothorax on repeat chest imaging this morning. CT of the chest completed on May 13, 2018 from the emergency department status post fall down several stairs showed multiple nondisplaced hairline fractures of the right anterior ribs (fourth, fifth, sixth, seventh and eighth ribs) also showed no acute airspace disease or pneumothorax. Newly noted was a suspicious spiculated left upper lobe nodule measuring 1.3 x 1.1 cm. 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 Past Medical History Past Medical History (Chronic Problems): Chronic Problems (Last Reviewed 05/27/18 @ 10:31 by VICKIE Olivo) Implantable cardioverter-defibrillator (ICD) in situ (Chronic 12/27/16) Anevia Dynogen EL ICD, model D150; Seriao # [id number] Secondary pulmonary arterial hypertension (Chronic) Nonischemic cardiomyopathy (Chronic) EF 15-20% per heart cath 08/29/2016; 20-35% per echo 12/17/2016 Severe left ventricular systolic dysfunction (Chronic) EF 15-20% per heart cath 08/29/2016; 20-35% per echo 12/17/2016 History of left heart catheterization (Chronic) Mild, nonobstructive CAD per [facility] 08/29/2016 @ [facility] per Dr. 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) Psoriatic arthritis (Chronic) Acne cystica (Chronic) CHF (congestive heart failure), NYHA class I (Chronic) Pulmonary hypertension (Chronic) RVSP 47mm hg per echo 08/28/2016 (unable to estimate per Echo 12/17/2016) Medical History: Medical History (Last Reviewed 05/27/18 @ 10:31 by VICKIE Olivo) Left ventricular thrombus (Acute) I51.3 Nonischemic cardiomyopathy (Chronic) I42.8 EF 15-20% per heart cath 08/29/2016; 20-35% per echo 12/17/2016 Severe left ventricular systolic dysfunction (Chronic) I51.9 EF 15-20% per heart cath 08/29/2016; 20-35% per echo 12/17/2016 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) Z79.01 Acute on chronic respiratory failure with hypoxia (Resolved) J96.21 Psoriatic arthritis (Chronic) L40.50 CHF (congestive heart failure), NYHA class I (Chronic) I50.9 Pulmonary hypertension (Chronic) I27.2 RVSP 47mm hg per echo 08/28/2016 (unable to estimate per Echo 12/17/2016) CAP (community acquired pneumonia) (Resolved) J18.9 Chronic respiratory failure with hypoxia and hypercapnia (Resolved) J96.11, J96.12 Allergies No Known Allergies Allergy (Verified 06/10/18 13:59) Home Medications: Ambulatory Orders Medication Instructions Recorded Surgical History: Surgical History (Last Reviewed 05/27/18 @ 10:31 by VICKIE Olivo) Implantable cardioverter-defibrillator (ICD) in situ (Chronic) Onset Date: 12/27/16 Z95.810 [employer] Dynogen EL ICD, model D150; Seriao # [id number] History of left heart catheterization (Chronic) Z98.890 Mild, nonobstructive CAD per [facility] 08/29/2016 @ [facility] per Dr. Florian Surgical History: no surgical history, - Lives: Spouse/ Significant Other Smoking Status: Former smoker Tobacco Use: Cigarettes - quit 10 years ago - *Family History Maternal Family History: Family History (Last Reviewed 05/27/18 @ 10:31 by VICKIE Olivo) Mother Heart disease Brother CVA (cerebral vascular accident) Father Cancer Grandmother Diabetes History Items: - - No COPD Paternal Family History: Family History (Last Reviewed 05/27/18 @ 10:31 by VICKIE Olivo) Mother Heart disease Brother CVA (cerebral vascular accident) Father Cancer Grandmother Diabetes History Items: - - No COPD Review of Systems Constitutional: Denies: Chills, Fever, Night Sweats Eyes: Denies: Blurred vision, Double vision HEENT: Denies: Head Aches, Sinus Congestion, Sinus Drainage Cardiovascular: Reports: Chest Pain Respiratory: Reports: Shortness of Breath Gastrointestinal: Denies: Abdominal Pain, Nausea, Vomiting Genitourinary: Denies: Dysuria Musculoskeletal: Denies: Joint Pain, Joint Tenderness Skin: Denies: Rash, Wounds Neurological: Denies: Numbness, Tingling, Focal weakness Psychiatric: Denies: Anxiety, Depression, Homicidal Ideations, Suicidal Ideations Hematologic/ Lymphatic: Denies: Easy Bruising, Easy Bleeding Patient Problems: Active and Suspected Problems (Last Reviewed 05/27/18 @ 10:31 by VICKIE Olivo) Pneumothorax after biopsy (Acute) Shortness of breath (Acute) Objective: The patient's most recent lab work, culture data and imaging studies have all been personally reviewed. - Physical Exam General: Alert, Cooperative, No apparent distress HEENT: Atraumatic, PERRLA, Normocephalic Oral: No Gingival or Mucosal Lesions/ Ulcerations Neck: Supple, No Nodes, Trachea Midline Lungs: - - Globally diminished air movement throughout all lung booker. Left-sided chest tube in place. No air leak noted in the atrium. Cardiovascular: Regular rate, Regular Rhythm, Normal S1, Normal S2, No murmurs Abdomen: Bowel Sounds Present, Soft, Non Tender, Non-Distended Extremities: No clubbing, No cyanosis, No edema Skin: No breakdown Musculoskeletal: No Tenderness to Palpation of Joints or Extremities, No Muscle Wasting Lymphatic: No Cervical, Supraclavicular, or Inguinal Adenopathy Neurological: Cranial nerves II-XII grossly intact, Neuro grossly intact Psych/Mental Status: Alert and oriented to time, place, person, mood and affect Vital Signs Temp Pulse Resp BP Pulse Ox 97.9 F 88 20 H 131/52 H 97 06/11/18 04:00 06/11/18 04:00 06/11/18 04:00 06/11/18 04:00 06/11/18 04:00 Oxygen Flow Rate (L/min) 5 Oxygen Delivery Method Nasal Cannula Weight: 144 lb 6.444 oz Body Mass Index (BMI) 22.6 Finger Stick Blood Glucose 126 Intake and Output for Last 24 Hours Intake Total 300 / 300 Output Total 310 / 310 Balance -10 / -10 Laboratory Tests Past 24 Hrs Clinical Impression(s) from Imaging Studies Chest X-Ray 06/10/18 14:43 IMPRESSION: Large left pneumothorax. This has progressed as compared to prior study. Atelectasis in the posterior medial segment of the left lower lobe. Electronically Signed: Sebastien Zheng MD at 15:03 EDT Tel [phone], Service support , Chest X-Ray 06/10/18 16:15 IMPRESSION: 1. Successful evacuation of the left pneumothorax following placement of left chest tube. 2. There is incomplete reaeration of the left lung base. Small left pleural effusion not excluded. Electronically Signed: Dewayne Perez MD at 16:55 EDT , Service support , Assessment/Plan All Active Problems (Last Reviewed 05/27/18 @ 10:31 by Cheryl Schaeffer MANAGER OF PROCUREMENT-C) Pneumothorax after biopsy (Acute) Shortness of breath (Acute) Lung nodule (Acute) Left ventricular thrombus (Acute) Laceration of right elbow without complication (Acute) Abrasion of skin (Acute) Hx of colonoscopy (Resolved) Diverticula of colon (Acute) SOB (shortness of breath) (Acute) Acute respiratory failure with hypoxia (Resolved) Acute on chronic respiratory failure with hypoxia (Resolved) COPD with acute exacerbation (Resolved) CAP (community acquired pneumonia) (Resolved) Chronic respiratory failure with hypoxia and hypercapnia (Resolved) RECOMMENDATIONS: 1. Remove patient from continuous wall suction and place chest tube to waterseal. 2. Obtain repeat plain film chest x-ray in approximate 3 hours. 3. Maintain patient on supplemental oxygen. 4. Continue bronchodilators. IMPRESSIONS: 1. Iatrogenic pneumothorax following CT-guided lung biopsy The patient is now status post tube thoracotomy with interval resolution of the previously noted pneumothorax. The patient was transitioned from continuous wall suction to waterseal early this morning. A follow-up plain film chest x-ray revealed no recurrence of the patient's pneumothorax with a chest tube on waterseal. Therefore, the chest tube was subsequently removed. One suture was left in place, given the size of the incision made to facilitate chest tube placement. The suture can be removed at his follow-up office visit in the pulmonary medicine clinic next week. Would plan to monitor the patient for 2-3 hours post chest tube removal, after which time one last x-ray will be obtained. If no recurrence of the pneumothorax is noted, the patient can be discharged home from my perspective. The patient is currently scheduled to follow-up in the pulmonary medicine clinic with our nurse practitioner at 12:45 PM on Thursday the . Please place order for outpatient chest x-ray to be obtained prior to his follow-up office visit. The patient has been advised to refrain from utilizing his home trilogy noninvasive ventilator for the foreseeable future. 2. Newly diagnosed non-small cell carcinoma The patient has newly diagnosed squamous cell carcinoma following CT-guided lung biopsy. I personally discussed the test results with both the patient and his at the bedside. They are going to take some time to consider where they would like to go for their oncologic follow-up/care. Arrangements can be made by our nurse practitioner upon his follow-up office visit. 3. Advanced age COPD without exacerbation/chronic hypoxemic respiratory failure Continue scheduled aerosol treatments as ordered. Continue supplemental oxygen. Patient appears to have a baseline 3 L/min supplemental oxygen requirement with exertion. This note was generated with Glio dictation software. It may contain incorrect words, spelling, and punctuation that were not noted in checking the note before signing. Code Visit Inpatient E AND M: 05666 Init Hosp L3 06/11/18 1235 <Electronically signed by Angel Gary DO> Date Angel Gary DO Cosigner Signature (if applicable): Date CC: Angel Gary D.O.; Jose Maurer III, MD Signed DISCHARGE SUMMARY Observed: 06/11/2018 Status: F Source: [place] 11:26 AM [facility] REPOSITORY [facility] Medical Records Department [address] [place] [address] Discharge Summary 06/11/18 1118 MR#: [id number] Acct: [id number] Name: JIGNESH RAMIRES Rep #: [id number] : 1950 67 From: Ben Arango MD PCP: Jose Maurer III, MD Status: ADM IN Y Location: [place] [address] Discharge Date and Diagnosis - Problem List Patient Problems: Active and Suspected Problems (Last Reviewed 05/27/18 @ 10:31 by VICKIE Olivo) Pneumothorax after biopsy (Acute) Shortness of breath (Acute) Date of Admission: 06/10/18 Date of Discharge: 06/11/18 - Primary Discharge Diagnosis Active and Suspected Problems (Last Reviewed 05/27/18 @ 10:31 by VICKIE Olivo) Pneumothorax after biopsy (Acute) Shortness of breath (Acute) - Secondary Discharge Diagnosis Chronic Problems (Last Reviewed 05/27/18 @ 10:31 by VICKIE Olivo) Implantable cardioverter-defibrillator (ICD) in situ (Chronic 12/27/16) [employer] Dynogen EL ICD, model D150; Seriao # [id number] Secondary pulmonary arterial hypertension (Chronic) Nonischemic cardiomyopathy (Chronic) EF 15-20% per heart cath 08/29/2016; 20-35% per echo 12/17/2016 Severe left ventricular systolic dysfunction (Chronic) EF 15-20% per heart cath 08/29/2016; 20-35% per echo 12/17/2016 History of left heart catheterization (Chronic) Mild, nonobstructive CAD per [facility] 08/29/2016 @ [facility] per Dr. 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 Gary pulmonary Operations: - - Status post chest tube after lung biopsy removal Summary of Care Provided: Patient is a 67-year-old male COPD hypertension pulmonary nodule CHF EF of 20-30%, AICD, peripheral vascular disease, hyperlipidemia, psoriatic arthritis , acne cystica, and pulmonary hypertension he had a left pulmonary nodule biopsy and he has trilogy for COPD he proceeded to use his trilogy and gave himself a left-sided pneumothorax. Patient had a chest tube placed, decompressed, and if chest x-ray does not show pneumothorax patient may go home later today if okay with pulmonary. Patient already on chronic O2, secondary to rib fractures. Have told patient to hold Coumadin and aspirin as per sales order coordinator Dr. Florian until June 17. And have included in discharge instructions. Again patient will only be discharged if left-sided pneumothorax has improved. Case management to see if he needs any home health or any durable medical equipment. Patient likely to be discharged this afternoon if there is no reaccumulation of air Medications reviewed with the patient. Risks, benefits, alternatives, side effects, potential complications and dangers of medications discussed. Patient wishes to utilize these agents despite risk. A signed medical consent/advisement form regarding narcotic medications and a side medication agreement are located in the patient's chart. Chart is dictated with evidence technician software. Errors may occur in dictation that may change providers meaning. This note was generated with Glio dictation software. It may contain incorrect words, spelling, and punctuation that were not noted in checking the note before signing. Patient Problems: Active and Suspected Problems (Last Reviewed 05/27/18 @ 10:31 by Cheryl Schaeffer NP-C) Pneumothorax after biopsy (Acute) Shortness of breath (Acute) - Physical Exam General: Alert, Oriented x3, Cooperative HEENT: Atraumatic, PERRLA, EOMI Neck: Supple, No JVD, Trachea Midline Lungs: No rhonchi, No rales, Diminished - Prolonged expiratory phase Cardiovascular: Regular rate, Normal S1, Normal S2, Murmur, - - Of AICD pacemaker Abdomen: Soft, Non Tender, Non-Distended Extremities: No clubbing, No cyanosis, Edema Skin: - - Multiple cystic acne blackheads noted Musculoskeletal: No Tenderness to Palpation of Joints or Extremities, No Muscle Wasting Lymphatic: No Cervical, Supraclavicular, or Inguinal Adenopathy Neurological: Cranial nerves II-XII grossly intact, Neuro grossly intact Psych/Mental Status: Normal Affect, Appropriate, Alert and oriented to time, place, person, mood and affect Vital Signs Temp Pulse Resp BP Pulse Ox 98.5 F 97 16 117/58 L 94 06/11/18 10:12 06/11/18 10:12 06/11/18 10:12 06/11/18 10:12 06/11/18 10:12 Oxygen Flow Rate (L/min) 5 Oxygen Delivery Method Nasal Cannula Weight: 65.5 kg Body Mass Index (BMI) 22.6 Finger Stick Blood Glucose 126 Intake and Output for Last 24 Hours Intake Total 300 / 300 Output Total 310 / 310 Balance - Laboratory Tests Past 24 Hrs STUDY: X-RAY CHEST REASON FOR EXAM: Male, 67 years old. History of pneumothorax. TECHNIQUE: Single AP portable view of the chest. COMPARISON: Comparison is made with prior study done earlier in the day at 4:53 AM. FINDINGS: Stable appearance of the left-sided chest tube with the tip in the superior medial aspect of the left hemithorax. The left lung remains expanded. There is no evidence of pneumothorax. There is evidence of a subcutaneous emphysema overlying the left hemithorax. Stable pleural parenchymal changes at the right lung base. Stable mild increased markings at the left lung base. RAD/Chest 1 View (Portable) IMPRESSION: Stable examination. Electronically Signed: Sebastien Zheng MD at 10:41 EDT Tel [phone], Service support , Discharge Diet: No Restrictions - Cardiac 1500 fluid restriction Discharge Activity: Return to Normal Activity May resume sexual activity in: No Restrictions Call your doctor if you observe: Fever of 101 or Higher, Coldness, Increased Pain, Numbness or Tingling, Shortness of breath, Dizziness, Chest pain Home Medications: Medications to take at Discharge Hydroxychloroquine [Plaquenil] 200 mg PO BIDCM 08/27/16 Multivitamin [Multiple Vitamins] 1 ea PO DAILY 08/27/16 Omeprazole Magnesium 40 mg PO DAILY 08/27/16 aspirin 81 mg chewable tablet 81 mg PO .QOD tab 10/15/17 carvedilol 6.25 mg tablet 6.25 mg PO BID 10/15/17 cholecalciferol (vitamin D3) 2,000 unit capsule 1,000 unit PO BID cap 10/15/17 fluticasone 50 mcg/actuation nasal spray,suspension 2 spray INTRANASAL BID PRN PRN g 10/15/17 levothyroxine 25 mcg capsule 25 mcg PO DAILY cap 10/15/17 losartan 50 mg tablet 50 mg PO DAILY 10/15/17 warfarin 5 mg tablet 5 mg PO .COMPLEX tab 02/09/18 albuterol sulfate 2.5 mg/3 mL (0.083 %) solution for nebulization 2.5 mg INHALATION Q6HWA.RT #180 vial 03/03/18 albuterol sulfate HFA 90 mcg/actuation aerosol inhaler 2 puff INHALATION Q4H PRN PRN #18 g 03/30/18 Albuterol IH (ProAir) [Proair Hfa] 1 puff INHALATION Q4H PRN PRN 06/10/18 Atorvastatin Calcium [Lipitor] 40 mg PO QHS 06/10/18 Budesonide/Formoterol 160/4.5 [Symbicort 160/4.5 Mcg Inhaler (SP)] 2 puff INHALATION BID 06/10/18 Furosemide [Lasix] 40 mg PO BID 06/10/18 Tiotropium [place] [Spiriva] 2 puff IH DAILY 06/10/18 Primary Care Physician: Jose Maurer III, MD [Primary Care Provider] - Please follow up with your Primary Care Physician in: 1 week Disposition: Home with Home Health - If required Patient Condition:: Fair Medical Necessity - Tobacco Use Smoking Status: Former smoker Tobacco Use: Cigarettes - quit 10 years ago Meaningful Use Info Meaningful Use Diagnoses (Choose all that apply): CHF - CHF FELIX/ARB ordered at discharge?: Yes Documented LVEF (%): 30 Code Visit Inpatient E AND M: 05996 Disch Hosp 06/11/18 1126 <Electronically signed by Ben Arango MD> Date Ben Arango MD Cosigner Signature (if applicable): Date CC: Jose Maurer III, MD; Ben Arango MD Signed DISCHARGE INSTRUCTION Observed: 06/11/2018 Status: F Source: [place] 11:17 AM [facility] REPOSITORY [facility] Medical Records Department [address] [place] [address] Instructions for Home/Discharge Instructions 06/11/18 1109 MR#: [id number] Acct: [id number] Name: JIGNESH RAMIRES Rep #: [id number] : 1950 67 From: Ben Arango MD PCP: Jose Maurer III, MD Status: ADM IN - Discharge Diagnoses Current Active Problems: Current Active and Chronic Problems (Last Reviewed 05/27/18 @ 10:31 by Cheryl Schaeffer NP-Leonel) Shortness of breath (Acute) Reason(s) for Visit for Discharge Instructions: Iatrogenic cause of pneumothorax biopsy You will use the following diet at home:: Cardiac, Fluid restricted (specify 2000 mls, 1500 mls) - 1500 Your food should be the consistency of: Regular Your liquids should be the consistency of: Regular/Thin Discharge Activity: Return to Normal Activity May resume sexual activity in: No Restrictions Call your doctor if you observe: Fever of 101 or Higher, Coldness, Increased Pain, Numbness or Tingling, Shortness of breath, Dizziness, Chest pain Additional Instructions: Hold Coumadin and aspirin until June 17 Pending Tests on Discharge: Chest x-ray showing no pneumothorax otherwise hold discharge Allergies/Adverse Reactions: Allergies No Known Allergies Allergy (Verified 06/10/18 13:59) Medications to take at Discharge Hydroxychloroquine [Plaquenil] 200 mg PO BIDCM 08/27/16 Multivitamin [Multiple Vitamins] 1 ea PO DAILY 08/27/16 Omeprazole Magnesium 40 mg PO DAILY 08/27/16 aspirin 81 mg chewable tablet 81 mg PO .QOD tab 10/15/17 carvedilol 6.25 mg tablet 6.25 mg PO BID 10/15/17 cholecalciferol (vitamin D3) 2,000 unit capsule 1,000 unit PO BID cap 10/15/17 fluticasone 50 mcg/actuation nasal spray,suspension 2 spray INTRANASAL BID PRN PRN g 10/15/17 levothyroxine 25 mcg capsule 25 mcg PO DAILY cap 10/15/17 losartan 50 mg tablet 50 mg PO DAILY 10/15/17 warfarin 5 mg tablet 5 mg PO .COMPLEX tab 02/09/18 albuterol sulfate 2.5 mg/3 mL (0.083 %) solution for nebulization 2.5 mg INHALATION Q6HWA.RT #180 vial 03/03/18 albuterol sulfate HFA 90 mcg/actuation aerosol inhaler 2 puff INHALATION Q4H PRN PRN #18 g 03/30/18 Albuterol IH (ProAir) [Proair Hfa] 1 puff INHALATION Q4H PRN PRN 06/10/18 Atorvastatin Calcium [Lipitor] 40 mg PO QHS 06/10/18 Budesonide/Formoterol 160/4.5 [Symbicort 160/4.5 Mcg Inhaler (SP)] 2 puff INHALATION BID 06/10/18 Furosemide [Lasix] 40 mg PO BID 06/10/18 Tiotropium [place] [Spiriva] 2 puff IH DAILY 06/10/18 Primary Care Physician: Jose Maurer III, MD [Primary Care Provider] - Please follow up with your Primary Care Physician in: 1 week Test Results: Test results from this visit will be discussed in further detail at your follow-up appointment, if applicable. Proposed Discharge Date: 06/11/18 - Only if chest x-ray does not show pneumothorax 06/11/18 1117 <Electronically signed by Ben Arango MD> Date Ben Arango MD CC: Angel Gary D.O.; Jose Maurer III, MD PROGRESS Observed: 06/11/2018 Status: COMPLETED Source: [place] 10:52 AM [facility] [place] REPOSITORY O ID: [id number] Author: Lj (Rn) Gee RN Service: (none) Author Type: Registered Nurse Type: Progress Notes Filed: 06/11/2018 10:57 AM Note Text: TRANSITION CARE MANAGEMENT (TCM) FOLLOW-UP NOTE Summary: Hospital d/c 05/16 CHF, fall rib fx, scalp laceration Kept TCM appt Concerns: Attempted to call patient for TCM Follow Up No answer. LM to call TCM line ([phone]) Cut Plug Packer plan for next outreach: Has TCM contact number No further follow up needed at this time Signature Lj Flynn RN June 11, 2018 CHEST 1 VIEW Observed: 06/11/2018 Status: F Source: [place] (PORTABLE) 9:48 AM [facility] REPOSITORY [facility] Imaging Services [address] [place] [id number] Chest 1 View (Portable) MR#: [id number] Acct: [id number] Name: JIGNESH RAMIRES Rep #: [id number] : 1950 67 From: Sebastien Zheng MD PCP: Jose Maurer III, MD Status: ADM IN Study: Chest 1 View (Portable) Date of Exam: 06/11/18 Exam# [id number] Ordering Dr: Angel Gary DO STUDY: X-RAY CHEST REASON FOR EXAM: Male, 67 years old. History of pneumothorax. TECHNIQUE: Single AP portable view of the chest. COMPARISON: Comparison is made with prior study done earlier in the day at 4:53 AM. FINDINGS: Stable appearance of the left-sided chest tube with the tip in the superior medial aspect of the left hemithorax. The left lung remains expanded. There is no evidence of pneumothorax. There is evidence of a subcutaneous emphysema overlying the left hemithorax. Stable pleural parenchymal changes at the right lung base. Stable mild increased markings at the left lung base. RAD/Chest 1 View (Portable) IMPRESSION: Stable examination. Electronically Signed: Sebastien Zheng MD at 10:41 EDT Tel [phone], Service support , CC: Angel Gary D.O.; Jose Maurer III, MD [place]: Signed CBC W/DIFF, AUTOMATED Collected: 06/11/2018 Status: F Source: [place] 5:54 AM [facility] REPOSITORY TYPE CODE TESTS RESULT OUT OF RANGE REFERENCE UNITS LAB L100.1000 4.4-11.0 K/mm3 Normal WBC 9.9 LAB L100.1200 4.6-6.2 M/mm3 Low RBC 2.93 LAB L100.1300 13.0-16.5 g/dl Low HGB 9.3 LAB L100.1400 40-54 % Low HCT 30.3 LAB L100.1500 80-94 fL High MCV 103.4 LAB L100.1600 27.0-32.0 pg Normal MCH 31.7 LAB L100.1700 32-36 g/gl Low MCHC 30.7 LAB L100.1810 11.6-14.6 % Normal RDW CV 14.5 LAB L100.1820 35.1-43.9 fl High RDW SD 54.8 LAB L100.1900 150-450 K/mm3 Normal PLT 240 LAB L100.2000 6.2-12.0 fl Normal MPV 9.1 LAB L100.2100 47-70 % High NEUT% 83.5 LAB L100.2200 19-41 % Low LY% 11.5 LAB L100.2300 0-10 % Normal MONO% 2.6 LAB L100.2400 0-5 % Normal EO% 1.4 LAB L100.2500 0-1 % Normal BASO% 0.2 LAB L100.2550 0.0-0.9 % Normal IM GRAN % 0.800 Result Comment: IG% - Immature Granulocytes (promyelocytes, myelocytes and metamyelocytes) > 1% indicates that a LEFT SHIFT is Present. LAB L100.2620 2.0-7.7 X10 3/uL High Absolute Neut 8.3 LAB L100.2720 0.83-4.51 X10 3/ul Normal Absolute Lymph 1.14 Performed By: #### L100.0100 #### [facility] [address] [place], [place], [address] BASIC METABOLIC Collected: 06/11/2018 Status: F Source: [place] PRO[facility] ([facility]) 5:54 AM [facility] REPOSITORY TYPE CODE TESTS RESULT OUT OF RANGE REFERENCE UNITS LAB L501.0100 74-106 mg/dL Normal GLU 94 Result Comment: Please note revised GLUCOSE reference range effective 2017. LAB L501.1000 7-18 mg/dL Normal BUN 14 LAB L501.1100 0.70-1.30 mg/dL Low CREAT,SERUM 0.67 Result Comment: The validity of the calculated GFR AND GFRAA in patients over 70 years has not been determined. Clinical correlation is essential. LAB L501.1110 >60 mL/min Normal EST GFR 126 Result Comment: Non- GFR Calc LAB L501.1115 >60 mL/min Normal EST GFR - AA 152 Result Comment: GFR Calc LAB L501.1255 ml/min Normal Estimated CRCL 64.69 LAB L501.1300 10-20 RATIO High BUN/CRE 20.9 LAB L501.2200 8.5-10 mg/dL Normal .1 CA 8.8 LAB L501.5300 136-14 mmol/L Normal 5 NA 138 LAB L501.5600 3.5-5. mmol/L Normal 1 K 4.7 LAB L501.5900 98-107 mmol/L Normal CL 98 LAB L501.6100 21.0-3 mmol/L High 2.0 CO2 37.0 LAB L501.6200 5-15 Low GAP 3 Performed By: #### L500.2500 #### [facility] [address] [place], [address] PROTHROMBIN TIME W/INR Collected: 06/11/2018 Status: F Source: [place] 5:54 AM [facility] REPOSITORY TYPE CODE TESTS RESULT OUT OF RANGE REFERENCE UNITS LAB L300.4150 11.7-14.9 SECONDS Normal PROTIME 14.8 LAB L300.4200 Normal INR 1.2 Performed By: #### L300.3900 #### [facility] [address] [place], [address] CHEST 1 VIEW Observed: 06/11/2018 Status: F Source: [place] (PORTABLE) 12:01 AM [facility] REPOSITORY [facility] Imaging Services [address] [place] [address] Chest 1 View (Portable) MR#: [id number] Acct: [id number] Name: JIGNESH RAMIRES Rep #: [id number] : 1950 M 67 From: Sebastien Zheng MD PCP: Jose Maurer III, MD Status: ADM IN Study: Chest 1 View (Portable) Date of Exam: 06/11/18 Exam# [id number] Ordering Dr: Angel Gary DO STUDY: X-RAY CHEST REASON FOR EXAM: Male, 67 years old. Left-sided pneumothorax. TECHNIQUE: Single AP portable view of the chest. COMPARISON: Comparison is made with prior study dated June 10, 2018 at 4:16 PM. FINDINGS: A large bore chest tube is in the left hemithorax with the tip in the superior medial aspect. The left-sided pneumothorax has resolved. There is evidence of a subcutaneous emphysema overlying the left chest wall. Small right pleural effusion with right basilar atelectasis and/or infiltrate is seen at this time. Minimal atelectasis is seen at the left lung base. A left-sided unipolar pacemaker is present. Normal mediastinum and carina. Normal visualized pulmonary arteries. There is atherosclerotic calcification of the aortic arch with tortuosity. Normal visualized thoracic spine. Normal visualized ribs, clavicles, and shoulders. There is no demonstrated abnormality of the visualized soft tissue structures of the upper abdomen. RAD/Chest 1 View (Portable) IMPRESSION: Left-sided chest tube. No evidence of pneumothorax. Left subcutaneous emphysema of the chest wall. New small right pleural effusion with underlying infiltration and/or atelectasis. Electronically Signed: Sebastien Zheng MD at 8:25 EDT Tel [phone], Service support , CC: Angel Gary D.O.; Jose Maurer III, MD Outsewer: Signed MINERVATOUTREACH Observed: 06/11/2018 Status: COMPLETED Source: [place] 12:00 AM [facility] REPOSITORY Patient Outreach ([facility]) JIGNESH RAMIRES ([id number]) 1950 M NFR Date Time Provider Department 06/11/18 LJ FLYNN (RN) [facility] During your visit today, we recorded the following information about you: Lj Flynn RN, RN 06/11/2018 10:57 AM Signed TRANSITION CARE MANAGEMENT (TCM) FOLLOW-UP NOTE Summary: Hospital d/c 05/16 CHF, fall rib fx, scalp laceration Kept TCM appt Concerns: Attempted to call patient for TCM Follow Up No answer. LM to call TCM line ([phone]) Cut Plug Packer plan for next outreach: Has TCM contact number No further follow up needed at this time Signature Lj Flynn RN June 11, 2018 Allergies As of Date: 06/11/2018 (No Known Allergies) Date Reviewed: 05/20/2018 Reviewed by: [place] ([facility]) ROGERIO Richards - Fully Assessed Reason for Visit: Transition Of Care [4074] Cmt: TCM: follow up Prescriptions as of 06/11/2018 Sig: OXYCODONE 5 MG TABLET Take 1 tablet by mouth every * FOLIC ACID 1 MG TABLET Take 1 tablet by mouth once d* COMPOUNDED PRESCRIPTION chair stair lift Dx COPD, * CHOLECALCIFEROL (VITAMIN D3) * Taking 1000 IU 800 am and 800* VIT,CALCIUM 27-GOMEZ* Take 1 tablet by mouth once d* HYDROXYCHLOROQUINE 200 MG TAB* Take 1 tablet by mouth twice * LEVOTHYROXINE 25 MCG TABLET Take 1 tablet by mouth once d* OMEPRAZOLE 40 MG CAPSULE,MARÍA* Take 1 capsule by mouth once * FLUTICASONE 50 MCG/ACTUATION * Use 1 [place] in each nostril o* COMPOUNDED PRESCRIPTION Knee high support stockings .* ATORVASTATIN 40 MG TABLET Take 40 mg by mouth once wilian* CARVEDILOL 6.25 MG TABLET Take 6.25 mg by mouth twice d* WARFARIN 5 MG TABLET Take 5 mg by mouth daily as d* OXYGEN (HOME THERAPY) by Nasal Cannula route as dir* LOSARTAN 50 MG TABLET Take 50 mg by mouth once wilian* FUROSEMIDE 40 MG TABLET Take 40 mg by mouth twice raheem* COMPOUNDED PRESCRIPTION Please perform nocturnal puls* COMPOUNDED PRESCRIPTION Please perform nocturnal puls* ALBUTEROL SULFATE CONCENTRATE* Use 0.5 mL via nebulizer ever* COMPOUNDED PRESCRIPTION Please perform nocturnal oxim* COMPOUNDED PRESCRIPTION Please provide disability monika* COMPOUNDED PRESCRIPTION 1 Units four times daily as n* COMPOUNDED PRESCRIPTION Nebulizer, Mask, AND O2 Tubing.* BUDESONIDE-FORMOTEROL HFA 160* Inhale 2 Puffs as instructed * ALBUTEROL SULFATE HFA 90 MCG/* Inhale 2 Puffs as instructed * ACLIDINIUM BROMIDE 400 MCG/AC* Inhale 1 Inhalation as instru* ASPIRIN 81 MG TABLET,DELAYED * Take 1 tablet by mouth once d* COMPOUNDED PRESCRIPTION 2L of O2 at night. 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] INVALID FOR* Psoriatic arthritis (HCC) [L40.50] INVALID FOR* Psoriasis [L40.9] INVALID FOR* Benign non-nodular prostatic hyperplasia with l*INVALID FOR* Encounter for long-term (current) use of medica*INVALID FOR* Hypothyroidism [E03.9] INVALID FOR* Venous stasis dermatitis of right lower extremi*INVALID FOR* 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] INVALID FOR* CHF (congestive heart failure) (HCC) [I50.9] Cardiomyopathy (HCC) [I42.9] ICD (implantable cardioverter-defibrillator) in* Moderate to severe pulmonary hypertension (HCC)*INVALID FOR* Anemia [D64.9] 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 *INVALID FOR* Gastroesophageal reflux disease [K21.9] INVALID FOR* Heavy alcohol use [Z78.9] INVALID FOR* Right rib fracture [S22.31XA] INVALID FOR* Acute respiratory failure (HCC) [J96.00] INVALID FOR* Coronary arteriosclerosis in bent[place] artery [I25*INVALID FOR* Chronic obstructive pulmonary disease with acut*INVALID FOR* Chronic respiratory failure (HCC) [J96.10] INVALID FOR* Severe chronic obstructive pulmonary disease (H*INVALID FOR* Diverticulosis of colon [K57.30] INVALID FOR* Dyspnea, unspecified [R06.00] INVALID FOR* Hyperlipidemia [E78.5] INVALID FOR* History of cardiac catheterization [Z98.890] INVALID FOR* Peripheral vascular disease (HCC) [I73.9] INVALID FOR* Acute myocardial infarction (HCC) [I21.9] INVALID FOR* Solitary pulmonary nodule on lung CT [R91.1] INVALID FOR* More... Encounter Status:Closed by LJ FLYNN on 06/11/18 HISTORY AND PHYSICAL Observed: 06/10/2018 Status: F Source: [place] EXAM 8:44 PM [facility] REPOSITORY [facility] Medical Records Department [address] [place] [address] History and Physical 06/10/18 1649 MR#: [id number] Acct: [id number] Name: JIGNESH RAMIRES Rep #: [id number] : 1950 67 From: Neha Hall MD PCP: Jose Maurer III, MD Status: [facility] IN [facility] Problem List (1) Shortness of breath Status: Acute History of Present Illness Date of Admission: 06/10/18 Chief Complaint: shortness of breath The patient is a 67 year old M with a history of COPD, hypertension and pulmonary nodule. He was admitted to the ED on 06/10/2018 with a complaint of worsening shortness of breath. Patient had a lung biopsy of left pulmonary nodule a few days ago. He subsequently had a small left sided pneumothorax after the procedure. He uses trilogy at home for COPD. 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 He was told not to use the trilogy on account of the pneumothorax and was told that he would receive a call subsequently to tell him whether he should use it or not. However, next day according to patient's , nurse from radiology department called patient and told him that he could use the trilogy. Patient therefore started using trilogy. They noted this morning that his shortness of breath that acutely worsened. He did not have any associated chest pain though he had bilateral flank pain from bilateral rib fractures which she sustained in a fall about a week ago. He denied any palpitations, lightheadedness or dizziness, abdominal pain, diarrhea vomiting. He came into the ED a chest x-ray showed that the left-sided pneumothorax had significantly enlarged. He had a chest tube placed in the ED and has been admitted to be managed for traumatic pneumothorax. [] Past Medical History Past Medical History (Chronic Problems): Chronic Problems (Last Reviewed 05/27/18 @ 10:31 by Cheryl Schaeffer, WILLIE-C) Implantable cardioverter-defibrillator (ICD) in situ (Chronic 12/27/16) [employer] Dynogen EL ICD, model D150; [facility] # [id number] Secondary pulmonary arterial hypertension (Chronic) Nonischemic cardiomyopathy (Chronic) EF 15-20% per heart cath 08/29/2016; 20-35% per echo 12/17/2016 Severe left ventricular systolic dysfunction (Chronic) EF 15-20% per heart cath 08/29/2016; 20-35% per echo 12/17/2016 History of left heart catheterization (Chronic) Mild, nonobstructive CAD per [facility] 08/29/2016 @ [facility] per Dr. 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 Óscar MATHEWD (peripheral vascular disease) (Chronic) Long-term use of high-risk medication (Chronic) Stage 3 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) FEV1 31 PND (paroxysmal nocturnal dyspnea) (Chronic) Hyperlipidemia (Chronic) assisted current use of anticoagulant (Chronic) Psoriatic arthritis (Chronic) Acne cystica (Chronic) CHF (congestive heart failure), NYHA class I (Chronic) Pulmonary hypertension (Chronic) RVSP 47mm hg per echo 08/28/2016 (unable to estimate per Echo 12/17/2016) Medical History: Medical History (Last Reviewed 05/27/18 @ 10:31 by VICKIE Olivo) Left ventricular thrombus (Acute) I51.3 Nonischemic cardiomyopathy (Chronic) I42.8 EF 15-20% per heart cath 08/29/2016; 20-35% per echo 12/17/2016 Severe left ventricular systolic dysfunction (Chronic) I51.9 EF 15-20% per heart cath 08/29/2016; 20-35% per echo 12/17/2016 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.02 assisted current use of anticoagulant (Chronic) Z79.01 Acute on chronic respiratory failure with hypoxia (Resolved) J96.21 Psoriatic arthritis (Chronic) L40.50 CHF (congestive heart failure), NYHA class I (Chronic) I50.9 Pulmonary hypertension (Chronic) I27.2 RVSP 47mm hg per echo 08/28/2016 (unable to estimate per Echo 12/17/2016) CAP (community acquired pneumonia) (Resolved) J18.9 Chronic respiratory failure with hypoxia and hypercapnia (Resolved) J96.11, J96.12 Allergies No Known Allergies Allergy (Verified 06/10/18 13:59) Home Medications: Ambulatory Orders Medication Instructions Recorded Surgical History: Surgical History (Last Reviewed 05/27/18 @ 10:31 by VICKIE Olivo) Implantable cardioverter-defibrillator (ICD) in situ (Chronic) Onset Date: 12/27/16 Z95.810 [employer] Dynogen EL ICD, model D150; [facility] # [id number] History of left heart catheterization (Chronic) Z98.890 Mild, nonobstructive CAD per [facility] 08/29/2016 @ [facility] per Dr. Florian Surgical History: no surgical history, - Lives: Spouse/ Significant Other Smoking Status: Former smoker Tobacco Use: Cigarettes - quit 10 years ago - *Family History Maternal Family History: Family History (Last Reviewed 05/27/18 @ 10:31 by VICKIE Olivo) Mother Heart disease Brother CVA (cerebral vascular accident) Father Cancer Grandmother Diabetes History Items: - - No COPD Paternal Family History: Family History (Last Reviewed 05/27/18 @ 10:31 by VICKIE Olivo) Mother Heart disease Brother CVA (cerebral vascular accident) Father Cancer Grandmother Diabetes History Items: - - No COPD Review of Systems Constitutional: Denies: Chills, Fever, Malaise, Weight Change Eyes: Denies: Blurred vision HEENT: Denies: Head Aches, Sinus Congestion, Sinus Drainage Cardiovascular: Denies: Chest Pain, Chest Pressure, Chest Tightness, Palpitations, Paroxysmal Noc. Dyspnea Respiratory: Reports: Shortness of Breath, Shortness of breath at rest, Shortness of breath upon exertion. Denies: Cough, Pleuritic Pain, Sputum production, Wheezing Gastrointestinal: Denies: Abdominal Pain, Nausea, Vomiting Genitourinary: Denies: Dysuria Musculoskeletal: Denies: Joint Pain, Joint Tenderness Skin: Denies: Rash, Wounds Neurological: Denies: Numbness, Tingling, Focal weakness Psychiatric: Denies: Anxiety, Depression, Homicidal Ideations, Suicidal Ideations Hematologic/ Lymphatic: Denies: Easy Bruising, Easy Bleeding VTE Information - Inpt Only VTE Present on Admission: No VTE Pharm Prophylaxis ordered?: Yes Patient Problems: Active and Suspected Problems (Last Reviewed 05/27/18 @ 10:31 by VICKIE Olivo) Shortness of breath (Acute) - Physical Exam General: Alert, Oriented x3, Cooperative, - - visibly short of breath; on nonrebreather mask on 6L of oxygen HEENT: Atraumatic, PERRLA, EOMI, Normocephalic Oral: Moist Mucosa Neck: Supple, No JVD, Negative Carotid Bruits Lungs: - - absent breath sounds in left upper and lower lung booker. Mildly decreased breath sounds in right upper, mid and lower lung booker. on 6L of oxygen by nonrebreather mask; using accessory muscles of respiration. Chest tube in left side of chest. Cardiovascular: Regular rate, Regular Rhythm, Normal S1, Normal S2, No murmurs Abdomen: Bowel Sounds Present, Soft, Non Tender, No Hepato- splenomegaly, Obese Extremities: No clubbing, No cyanosis, No edema, Capillary Refill Less than 3 Seconds Skin: No rashes, No breakdown, - - ecchymotic bruising over left and right flanks. Chest tube dressing over left side of chest. Musculoskeletal: No Tenderness to Palpation of Joints or Extremities Lymphatic: No Cervical, Supraclavicular, or Inguinal Adenopathy Neurological: Cranial nerves II-XII grossly intact, Neuro grossly intact, Motor Exam 5/5 strength throughout Psych/Mental Status: Normal Affect, Appropriate, Alert and oriented to time, place, person, mood and affect Vital Signs Temp Pulse Resp BP Pulse Ox 97.8 F 94 16 154/75 H 100 06/10/18 13:56 06/10/18 16:18 06/10/18 16:18 06/10/18 16:18 06/10/18 16:18 Oxygen Flow Rate (L/min) 15 Oxygen Delivery Method Non-Rebreather Weight: 144 lb 6.4 oz Body Mass Index (BMI) 22.6 Finger Stick Blood Glucose 126 Laboratory Tests Past 24 Hrs WBC 6.5 RBC 2.93 L Hgb 9.3 L Hct 29.4 L MCV 100.3 H MCH 31.7 MCHC 31.6 L Diagnostic Data Chest X-Ray 06/10/18 16:15 IMPRESSION: 1. Successful evacuation of the left pneumothorax following placement of left chest tube. 2. There is incomplete reaeration of the left lung base. Small left pleural effusion not excluded. Electronically Signed: Dewayne Perez MD at 16:55 EDT , Service support , Assessment/Plan All Active Problems (Last Reviewed 05/27/18 @ 10:31 by hCeryl Schaeffer, MANAGER OF PROCUREMENT-C) Shortness of breath (Acute) Lung nodule (Acute) Left ventricular thrombus (Acute) Laceration of right elbow without complication (Acute) Abrasion of skin (Acute) Hx of colonoscopy (Resolved) Diverticula of colon (Acute) SOB (shortness of breath) (Acute) Acute respiratory failure with hypoxia (Resolved) Acute on chronic respiratory failure with hypoxia (Resolved) COPD with acute exacerbation (Resolved) CAP (community acquired pneumonia) (Resolved) Chronic respiratory failure with hypoxia and hypercapnia (Resolved) [age]-year-old male presenting with complaint of worsening shortness of breath for 1 day 1. Iatrogenic left sided massive pneumothorax * Had left lung biopsy a few days ago and had a small pneumothorax was subsequently worsened after he was inadvertently told to continue using his trilogy. * CXR on admission showed large left pneumothorax * chest tube inserted in ED * Admit to [facility] with telemetry. * Allergy consulted to manage chest tube. * Patient currently on 6 L of oxygen via nonrebreather mask. To continue. * Patient not to use trilogy during admission. * 2. Chronic respiratory failure due to COPD * on breathing treatments with albuterol, TUdorza and budesonide-formoterol. * Not to use trilogy during this admission. * Pulmonology consult on account of chest tube. * 3. HFrEF: Lasix 40 mg twice daily. Will continue. Also on carvedilol and losartaN * 4. CAD: on statin, aspirin and carvedilol 5. Psoriasis and psoriatic arthritis: on hydroxychloroquine and prednisone 6. Anemia: Hb is 9.3. Is a microcytic hypochromic anemia. To follow-up with PCP on outpatient basis. 7. Thyroidism: On Synthroid 25 mg daily. 8. ?DVT: on coumadin 5mg daily. Unsure why. WIll check INR. Hold coumadin o/a of chest tube insertion. 9.Hypertension: on losartan and carvedilol. 10. History of falls with multiple rib fracture: tyelenol for pain. fall precautions. DVT prophylaxis: SCDs GI prophylaxis: Omeprazole CODE STATUS: Patient and counseled extensively about different between full code, DNR CCA and DNR CCA. Patient elects to be full code. Total oaaq-[id number]-pkct time 18 minutes. Code Visit Inpatient E AND M: 62557 Init Hosp L3 Procedures: 24472 Advncd Care Plan 30 Min 06/10/182043 <Electronically signed by Neha Hall MD> Date Neha Hall MD Cosigner Signature: Date (if applicable) CC: Jose Maurer III, MD; Neha Hall MD Signed PROTHROMBIN TIME W/INR Collected: 06/10/2018 Status: F Source: [place] 7:02 PM [facility] REPOSITORY TYPE CODE TESTS RESULT OUT OF RANGE REFERENCE UNITS LAB L300.4150 11.7-14.9 SECONDS Normal PROTIME 14.7 LAB L300.4200 Normal INR 1.2 Performed By: #### L300.3900 #### [facility] [address] [place], [address] EMERGENCY DEPARTMENT Observed: 06/10/2018 Status: F Source: [place] SUMMARY 4:25 PM [facility] REPOSITORY [facility] Medical Records Department [address] [place] [address] Emergency Department Summary 06/10/18 1536 MR#: [id number] Acct: [id number] Name: JIGNESH RAMIRES Rep #: [id number] : 1950 67 From: Fuentes Edmondson MD PCP: Jose Maurer III, MD Status: REG ER ADDENDUM by Fuentes Edmondson MD on 06/10/18 at 1625 BMP is remarkable for an elevated CO2 of 33. CBC is remarkable for macrocytic anemia. Dr. Angel Gary was made aware of the recent fall and rib fractures. 06/10/18 1625 Date Fuentes Edmondson MD cc: Angel Gary D.O.; Jose Maurer III, MD * Signed - ER Visit Summary Date of Service: 06/10/18 Chief Complaint: Shortness of breath status post lung biopsy History of Present Illness: The patient is a 67 M who had a lung biopsy this past weekend. X-ray revealed a 50% pneumothorax on the left. He was told not to use his trilogy machine. When he called the office he spoke to Dr. Huitron nurse who recommended that he could use his trilogy machine last night. He presents because of increased shortness of breath. He denies any other symptoms. Physical Examination: Vital signs noted. Has mild respiratory distress. There are diminished breath sounds bilaterally greater left. There is hyperresonance percussion on the left. Heart is regular without murmur, gallop or rub. Abdomen is soft nontender. Neuro exam is nonfocal. Test Results: Chest x-ray was obtained which reveals significant enlargement of the left pneumothorax. Emergency Department Course and Treatment: Chest x-ray was obtained to determine if the pneumothorax expanded. Since the pneumothorax did expand Dr. Angel Gary was contacted. After reviewing patient's past medical history he recommended a 20 [place] chest tube and admission to hospitalist with consult to him. Consent was obtained for placement of left chest tube. He was explained risk benefits. Patient's and 's questions were answered. The left torso was prepped draped sterile manner. Incision was made using a 10 blade. Blunt dissection was undertaken and the 20 [place]ian chest tube was placed to ribs above the incision site. There was a small ferreira of air. There is condensation noted in the 20 [place]ian chest tube. Patient desaturated and a stat chest x-ray was obtained. Patient states he desaturates when he is supine. Will confirm position and evaluate for other causes of his hypoxia. Stat portable chest x-ray reveals proper position of chest tube and expansion of pneumothorax. There was palpable crepitus of the rib. informed me that he had multiple rib fractures on the left. He had a fall 4 weeks ago. Treatment Plan: Chest tube left Disposition: Admit [facility] Impression: 1. Expanding left pneumothorax status post lung biopsy 2. History of CHF 3. History of COPD 4. History of nonischemic cardiomyopathy 5. History of pulmonary hypertension 6. History of peripheral arterial disease 7. History of recent fall with multiple left rib fractures and right rib fractures This note was generated with Glio dictation software. It may contain incorrect words, spelling, and punctuation that were not noted in review of the chart prior to signing ED Disposition - Plan for ED Patient: Chief Complaint: Shortness of Breath Referrals: Jose Maurer III, MD [Primary Care Provider] - What to do if you have Problems For any increased pain, shortness of breath, bleeding, nausea or vomiting, chest pain, or any unexpected problems, contact your Primary Care Provider. Call [facility] ([phone]) or report to the closest Emergency Room. Call 911 if necessary. 06/10/18 1620 <Electronically signed by Fuentes Edmondson MD> Date Fuentes Edmondson MD Cosigner Signature (If Indicated): Date CC: Angel Gary D.O.; Jose Maurer III, MD CHEST 1 VIEW Observed: 06/10/2018 Status: F Source: [place] (PORTABLE) 4:14 PM [facility] REPOSITORY [facility] Imaging Services [address] [place] [id number] Chest 1 View (Portable) MR#: [id number] Acct: [id number] Name: JIGNESH RAMIRES Rep #: [id number] : 1950 M 67 From: Basim Perez MD PCP: Jose Maurer III, MD Status: REG ER Study: Chest 1 View (Portable) Date of Exam: 06/10/18 Exam# [id number] Ordering Dr: Fuentes Edmondson MD STUDY: X-RAY CHEST REASON FOR EXAM: Male, 67 years old. Post chest tube insertion. TECHNIQUE: Single AP portable upright view of the chest. COMPARISON: Portal AP upright chest x-ray 1446 hours. FINDINGS: Chest tube is now seen entering the lateral lower left hemithorax, its tip at the medial left superior sulcus. Single lead left subclavian cardiac pacemaker is unchanged. Left pneumothorax has been evacuated. There is hazy density at the left base that may be incompletely aerated lung. Small pleural effusion is difficult to exclude. Minor subsegmental crowding in the inferior right base. There is no demonstrated pleural abnormality. Normal size heart. Normal mediastinum and carina. Normal visualized pulmonary arteries. There is stable atherosclerotic calcification of the aortic arch. There are stable multilevel degenerative changes of the visualized thoracic spine. Normal visualized ribs, clavicles, and shoulders. Gas is seen in the soft tissues of the left lateral chest wall at the level of the chest tube insertion. There is no demonstrated abnormality of the visualized soft tissue structures of the upper abdomen. RAD/Chest 1 View (Portable) IMPRESSION: 1. Successful evacuation of the left pneumothorax following placement of left chest tube. 2. There is incomplete reaeration of the left lung base. Small left pleural effusion not excluded. Electronically Signed: Dewayne Perez MD at 16:55 EDT , Service support , CC: Jose Maurer III, MD; Fuentes Edmondson MD Outsewer: Signed CBC W/DIFF, AUTOMATED Collected: 06/10/2018 Status: F Source: [place] 3:59 PM [facility] REPOSITORY TYPE CODE TESTS RESULT OUT OF RANGE REFERENCE UNITS LAB L100.1000 4.4-11.0 K/mm3 Normal WBC 6.5 LAB L100.1200 4.6-6.2 M/mm3 Low RBC 2.93 LAB L100.1300 13.0-16.5 g/dl Low HGB 9.3 LAB L100.1400 40-54 % Low HCT 29.4 LAB L100.1500 80-94 fL High MCV 100.3 LAB L100.1600 27.0-32.0 pg Normal MCH 31.7 LAB L100.1700 32-36 g/gl Low MCHC 31.6 LAB L100.1810 11.6-14.6 % Normal RDW CV 14.2 LAB L100.1820 35.1-43.9 fl High RDW SD 51.8 LAB L100.1900 150-450 K/mm3 Normal PLT 227 LAB L100.2000 6.2-12.0 fl Normal MPV 8.8 LAB L100.2100 47-70 % Normal NEUT% 68.9 LAB L100.2200 19-41 % Normal LY% 21.1 LAB L100.2300 0-10 % Normal MONO% 6.6 LAB L100.2400 0-5 % Normal EO% 2.6 LAB L100.2500 0-1 % Normal BASO% 0.3 LAB L100.2550 0.0-0.9 % Normal IM GRAN % 0.500 Result Comment: IG% - Immature Granulocytes (promyelocytes, myelocytes and metamyelocytes) > 1% indicates that a LEFT SHIFT is Present. LAB L100.2620 2.0-7.7 X10 3/uL Normal Absolute Neut 4.5 LAB L100.2720 0.83-4.51 X10 3/ul Normal Absolute Lymph 1.37 Performed By: #### L100.0100 #### [facility] [address] [place], [address] BASIC METABOLIC Collected: 06/10/2018 Status: F Source: [place] PROFILE ([facility]) 3:59 PM [facility] REPOSITORY TYPE CODE TESTS RESULT OUT OF RANGE REFERENCE UNITS LAB L501.0100 74-106 mg/dL Normal GLU 84 Result Comment: Please note revised GLUCOSE reference range effective 2017. LAB L501.1000 7-18 mg/dL Normal BUN 14 LAB L501.1100 0.70-1.30 mg/dL Normal CREAT,SERUM 0.80 Result Comment: The validity of the calculated GFR AND GFRAA in patients over 70 years has not been determined. Clinical correlation is essential. LAB L501.1110 >60 mL/min Normal EST GFR 102 Result Comment: Non- GFR Calc LAB L501.1115 >60 mL/min Normal EST GFR - AA 124 Result Comment: GFR Calc LAB L501.1255 ml/min Normal Estimated CRCL 83.01 LAB L501.1300 10-20 RATIO Normal BUN/CRE 17.5 LAB L501.2200 8.5-10 mg/dL Normal .1 CA 8.9 LAB L501.5300 136-14 mmol/L Normal 5 NA 136 LAB L501.5600 3.5-5. mmol/L Normal 1 K 4.2 LAB L501.5900 98-107 mmol/L Low CL 96 LAB L501.6100 21.0-3 mmol/L High 2.0 CO2 33.0 LAB L501.6200 5-15 Normal GAP 7 Performed By: #### L500.2500 #### [facility] [address] [place], [address] CHEST 1 VIEW Observed: 06/10/2018 Status: F Source: [place] (PORTABLE) 2:42 PM [facility] REPOSITORY [facility] Imaging Services [address] [place] [address] Chest 1 View (Portable) MR#: [id number] Acct: [id number] Name: JIGNESH RAMIRES Rep #: [id number] : 1950 M 67 From: Sebastien Zheng MD PCP: Jose Maurer III, MD Status: REG ER Study: Chest 1 View (Portable) Date of Exam: 06/10/18 Exam# [id number] Ordering Dr: Fuentes Edmondson MD STUDY: X-RAY CHEST REASON FOR EXAM: Male, 67 years old. Increasing shortness of breath. Recent left lung biopsy. TECHNIQUE: Single AP portable view of the chest. COMPARISON: Comparison is made with prior examination dated June 08, 2018. FINDINGS: EKG electrodes are seen. Examination of a large left pneumothorax. This has progressed compared to prior study. Atelectasis in the posterior medial segment of the left lower lobe. The right lung is well expanded. Normal size heart. A left-sided pacemaker is seen. Calcified right hilar lymph nodes. Normal visualized pulmonary arteries. There is atherosclerotic calcification of the aortic arch with tortuosity. Normal visualized thoracic spine. Normal visualized ribs, clavicles, and shoulders. There is no demonstrated abnormality of the visualized soft tissue structures of the upper abdomen. RAD/Chest 1 View (Portable) IMPRESSION: Large left pneumothorax. This has progressed as compared to prior study. Atelectasis in the posterior medial segment of the left lower lobe. Electronically Signed: Sebastien Zheng MD at 15:03 EDT Tel [phone], Service support , CC: Jose Maurer III, MD; Fuentes Edmondson MD Outsewer: Signed MISCELLANEOUS LAB Collected: 06/08/2018 Status: F Source: [place] PROCEDURE 1:42 PM [facility] REPOSITORY Order Comment: Comments: [id number] Test(s) Ordered: PD-L1 [id number] TYPE CODE TESTS RESULT OUT OF RANGE REFERENCE UNITS LAB L801.1541 SEE Normal [facility] PATHOLOGY LAB TEST REPORT Result Comment: Specimen submitted to Anatomical Pathology Department for testing. Performed By: #### L801.1541 #### [facility] [address] [place], [address] CHEST INSP/EXP 2 VIEW Observed: 06/08/2018 Status: F Source: [place] 12:42 PM [facility] REPOSITORY [facility] Imaging Services [address] [place] [address] Chest Insp/Exp 2 View MR#: [id number] Acct: [id number] Name: JIGNESH RAMIRES Rep #: [id number] : 1950 M 67 From: Michell Grajeda MD PCP: Jose Maurer III, MD Status: REG CLI Study: Chest Insp/Exp 2 View Date of Exam: 06/08/18 Exam# [id number] Ordering Dr: Sebastien Zheng MD STUDY: X-RAY CHEST REASON FOR EXAM: Male, 67 years old. Post lung biopsy TECHNIQUE: Frontal inspiratory and expiratory chest view 1430 hours COMPARISON: 06/08/2018 1248 hours FINDINGS: There is an anterior chest wall single chamber permanent pacemaker. There is a large left-sided pneumothorax with mild shift to the right. There is compression of left basilar parenchyma, mild bilateral interstitial lung disease, hyperinflation, elevation of the right hemidiaphragm, hyperinflation of the right base. The lungs are clear and expanded. There is no demonstrated pleural abnormality. Normal size heart. Normal mediastinum and carina. Normal visualized pulmonary arteries. There is atherosclerotic calcification of the aortic arch with tortuosity. There are diffuse degenerative changes of the visualized thoracic spine. Multiple bilateral rib deformities. There is no demonstrated abnormality of the visualized soft tissue structures of the upper abdomen. RAD/Chest Insp/Exp 2 View IMPRESSION: Large left pneumothorax with mild tension marked compression off left basilar parenchyma superimposed on chronic interstitial lung disease and COPD. No significant change since most recent exam. N.B. : The above information has been verbally conveyed by Michell Grajeda MD to LEXY Moss, on 06/09/2018 07:37:00 (ET). Electronically Signed: Michell Grajeda MD at 7:17 EDT , Service support , CC: Jose Maurer III, MD; Sebastien Zheng MD Outsewer: Signed CHEST INSP/EXP 2 VIEW Observed: 06/08/2018 Status: F Source: [place] 12:42 PM [facility] REPOSITORY [facility] Imaging Services [address] [place] [address] Chest Insp/Exp 2 View MR#: [id number] Acct: [id number] Name: JIGNESH RAMIRES Rep #: [id number] : 1950 M 67 From: Sebastien Zheng MD PCP: Jose Maurer III, MD Status: REG CLI Study: Chest Insp/Exp 2 View Date of Exam: 06/08/18 Exam# [id number] Ordering Dr: Sebastien Zheng MD STUDY: X-RAY CHEST REASON FOR EXAM: Male, 67 years old. Immediate post left lung biopsy radiograph. TECHNIQUE: AP inspiration and expiration views were obtained. COMPARISON: Comparison is made with prior examination dated February 05, 2017. FINDINGS: Stable elevation of the right hemidiaphragm. There is evidence of a left 15% pneumothorax. The patient is asymptomatic at this time. A follow-up radiograph was obtained in 2 hours. RAD/Chest Insp/Exp 2 View IMPRESSION: Status post left lung biopsy with resultant 50% pneumothorax. Follow-up will be obtained. Electronically Signed: Sebastien Zheng MD at 10:58 EDT Tel [phone], Service support , CC: Jose Maurer III, MD; Sebastien Zheng MD Outsewer: Signed PLATELET COUNT Collected: 06/08/2018 Status: F Source: [place] 10:10 AM [facility] REPOSITORY TYPE CODE TESTS RESULT OUT OF RANGE REFERENCE UNITS LAB L100.1900 150-450 K/mm3 Normal PLT 294 Performed By: #### L100.1900 #### [facility] [address] [place], [place], [address] PROTHROMBIN TIME W/INR Collected: 06/08/2018 Status: F Source: [place] 9:31 AM [facility] REPOSITORY TYPE CODE TESTS RESULT OUT OF RANGE REFERENCE UNITS LAB L300.4150 11.7-14.9 SECONDS High PROTIME 15.1 LAB L300.4200 Normal INR 1.2 Performed By: #### L300.3900, L300.4310 #### [facility] [address] [place], [address] PARTIAL THROMBOPLAST Collected: 06/08/2018 Status: F Source: [place] TIME 9:31 AM [facility] REPOSITORY TYPE CODE TESTS RESULT OUT OF REFERENCE UNITS RANGE LAB L300.4310 24.1-36.2 Seconds High PTT 39.0 Performed By: #### L300.3900, L300.4310 #### [facility] [address] [place], [address] BIOPSY/INJ OR NEEDLE Observed: 06/08/2018 Status: F Source: [place] PLACEMENT 9:27 AM [facility] REPOSITORY [facility] Imaging Services [address] [place] [address] Biopsy/Inj or Needle Placement MR#: [id number] Acct: [id number] Name: JIGNESH RAMIRES Rep #: [id number] : 1950 M 67 From: Sebastien Zheng MD PCP: Jose Maurer III, MD Status: REG CLI Study: Biopsy/Inj or Needle Placement Date of Exam: 06/08/18 Exam# [id number] Ordering Dr: Cheryl Schaeffer MANAGER OF PROCUREMENT-C PROCEDURE: CT GUIDED CORE NEEDLE BIOPSY OF A left upper lobe LUNG LESION INDICATION: Male, 67 years old. Nodular density in the left upper lobe. PHYSICIAN: Dr.Pedicelli SUBRAMANIAN CONSENT: Written informed consent was obtained having explained the risks, benefits and alternatives in detail with the patient who accepted the risks and agreed to proceed. Laboratory review and clinical assessment was performed. CONSCIOUS SEDATION PROTOCOL: The Drugs used were: 1 mg Versed, IV., and 25 mcg Fentanyl, IV. The sedation time was: 30 minutes. Conscious sedation was started at 12:00 PM and terminated at 12:30 PM. The conscious sedation protocol was independently monitored. RADIATION DOSAGE (If Supplied By Facility): CTDIvol = ( 16.8 ) mGy, DLP = ( 487.31 ) mGycm Individualized dose optimization techniques were used for this CT. TECHNIQUE: The patient was placed in the prone position. A noncontrast CT was performed to localize the lesion in the posterior aspect of the left upper lobe . The skin surface was prepped and draped in a sterile fashion. 1% lidocaine was used for local anesthesia. Using CT guidance, a 20-gauge coaxial biopsy device was advanced to the periphery of the lesion. A total of 4 core specimens were obtained. The specimens were placed in a formalin solution. A post procedure CT demonstrated no adverse sequelae or pneumothorax. The patient tolerated the procedure well without adverse event. A negative biopsy does not exclude malignancy. Further imaging or clinical followup based on patient condition and degree of clinical suspicion for malignancy. Suggest rebiopsy, if biopsy results do not match with clinical scenario. CT/Biopsy/Inj or Needle Placement IMPRESSION: 1. CT directed core needle biopsy of the left upper lobe nodule using CT image guidance with image documentation as described. Pathology results are pending. 2. Conscious Sedation protocol utilized with independent monitoring. Electronically Signed: Sebastien Zheng MD at 14:03 EDT Tel [phone], Service support , CC: Cheryl Schaeffer; Jose Maurer III, MD Outsewer: Signed LUNG, BIOPSY Observed: 06/08/2018 Status: F Source: [place] 12:00 AM [facility] REPOSITORY Patient: JIGNESH RAMIRES : 1950 (67/M) Acct Num: [id number] Phys: Cheryl Schaeffer NP Unit Num: [id number] Loc: CT Specimen: [id number] Received: 06/08/18 1319 Spec Type: LUNG BX TISSUES 1 TISSUES: Lung, NOS ADDENDUM Addendum Number 1 PD-L1 (KEYTRUDA) IMMUNOHISTOCHEMISTRY ANALYSIS FROM [facility] INTERPRETATION: No expression Tumor proportion score: <1% Please see complete report in e-chart or EMR for complete details Addendum Signed [facility] 07/02/18 <signature on file> COMMENT The specimen is evaluated at the time of CT-guided lung biopsy by Dr. Blas. Immediate Evaluation = Atypical cells noted suspicious for non-small cell carcinoma. Immunohistochemistry ([id number]) supports the above diagnosis. Case has been reviewed in consultation with Dr. Mcgowan who concurs with the above diagnosis. IDC:AM GROSS DESCRIPTION Received in fixative is one container labeled with the patient's name and designated CT-guided left lung biopsy. The specimen consists of multiple elongated fragments of ram soft tissue that in aggregate measure 1.5 x 0.1 x < 0.1 cm. The specimen is totally submitted in one cassette. / NOE:beni 06/08/18 TC:0 CPT: 49922, 58739 HEADER OPERATION: CT-guided left upper lobe/lung biopsy PRE-OP DIAGNOSIS: Mass - left upper TISSUE SUBMITTED: Left upper lobe lung mass LUNG CULTURE RESULTS No results available. MICROSCOPIC DESCRIPTION Slides are reviewed. MICROSCOPIC DIAGNOSIS Left upper lobe lung mass, CT-guided core biopsy: Non-small cell carcinoma, favor squamous cell carcinoma. See comment. NOE:beni 06/10/18 Signed Tiburcio Blas 06/10/18 <signature on file> Performed By: #### RHYS #### [facility] [place], [address] IMMUNOHISTOCHEMISTRY Observed: 06/08/2018 Status: F Source: [place] 12:00 AM [facility] REPOSITORY Patient: JIGNESH RAMIRES : 1950 (67/M) Acct Num: [id number] Phys: Cheryl Schaeffer MANAGER OF PROCUREMENT Unit Num: [id number] Loc: CT Specimen: [id number] Received: 06/10/181035 Spec Type: IMMUNO TISSUES 1 TISSUES: Lung, NOS SPECIMEN INFORMATION: Tissue Source: Left upper lobe lung, biopsy Clinical Info: Mass, left upper Specimen Number: [id number] CPT code: 17016, 90595 x6 METHODOLOGY: Deparaffinized sections of prefer/formalin-fixed tissue or PAP/DQ stained slides are incubated with monoclonal/polyclonal antibodies/oligonucleotide probes. Localization is made via biotin free immunoperoxidase method. Appropriate controls are performed and reacted as expected. Results on target cell population are indicated in the following table: RESULTS: ANTIBODY / CLONE RESULT CK8 ([id number]) positive CK7 (OV-TL12/30) negative Chromo (LK2H10) negative CD56 (123C3.D5) negative TTF-1 (8G7G3/1) negative P40 (BC28) positive CK5-6 (D5 AND 1684) positive These tests were developed and their performance characteristics determined by [facility]. They may not have been cleared or approved by the U.S. Food and Drug Administration. The FDA has determined that such clearance or approval is not necessary. INTERPRETATION: Left upper lobe lung, biopsy: Non-small cell carcinoma, favor squamous cell carcinoma. SJ:beni 06/10/18 PHYSICIAN AND INSTITUTION [place] [address] Signed Tiburcio Blas 06/10/18 <signature on file> Performed By: #### PIMM #### [facility] [address] [place] [address]. [place], [place], [address] PULMONARY VISIT REPORT Observed: 05/27/2018 Status: F Source: [place] 10:50 AM [facility] REPOSITORY [facility] [address] [place] [address] OFFICE VISIT Date of Service: 05/25/18 MR#: [id number] Acct: [id number] Name: JIGNESH RAMIRES Rep #: [id number] : 1950 Provider: Cheryl Schaeffer Age/Sex: 67/M [place] [facility] [place]: Signed Assessment AND Plan 1. Lung nodule R91.1 Plan New. Will discuss CT results with interventional radiologist to be sure that the nodule is appropriate and accessible for CT-guided biopsy. We will set up the CT-guided biopsy, including appropriate anticoagulation studies. Contacted the patient's sales order coordinator, confirmed that it is safe to hold Coumadin 5 days prior to procedure, he suggested then holding the Coumadin 7 days post procedure. The patient has been notified of the tentative testing date and dates to stop Coumadin. Discussed the risks and benefits with the patient, radiologist will go into detail prior to the procedure. We will follow- up approximately 10 days post procedure to discuss results and continue to develop a plan. Discussed the possible need for a PET scan. Questions were answered. The patient and his convey understanding. He has been advised to contact the office with any new or worsening symptoms in the meantime. Orders Orders: 2. Stage 3 severe COPD by GOLD classification J44.9 Plan He does not appear to be in exacerbation today. Continue current maintenance medications, note that his LAMA/LABA has been changed to a Respimat format given that he is unable to provide the inspiratory effort necessary to appropriately take his Anoro. Severity of his COPD certainly complicates the exam, plan, care and prognosis. Places him at higher risk for pneumothorax, will review with interventional radiologist prior to procedure. 3. Acute on chronic respiratory failure with hypoxia J96.21 Plan Continue to use supplement oxygen as needed to maintain saturations 89-92%. The patient is using and benefiting from his submental oxygen. Continue an IV with sleep. Plan Detail Other Orders Orders: Other Medications New: HPI HPI Comments Details: This patient presents the office today to follow- up after recently incidentally finding a nodule on a chest CT that was preformed secondary to follow-up after a fall down the steps. The patient is ambulatory, currently on nasal cannula oxygen and accompanied by his . He does appear to be in some discomfort, reports that his rib fractures cause him some pain with inspiration. He was seen in the emergency department on May 13, report was reviewed. The patient did have an alcohol level of 222, subsequently fell down a flight of stairs and fractured 5 ribs on the right side and 4 ribs on the left side. He was evaluated weighted at a level 1 trauma center and discharged home. He did not receive a pneumothorax. CT of the chest was obtained and the results were discussed with the patient and his today, see below. He is now experiencing some chest discomfort with deep inspiration and is being treated with oxycodone 5 mg every 4 hours. He reports that the oxycodone does make his pain tolerable. It does not completely relieve his pain. He is compliant with his maintenance medications which consist of Symbicort 2 puffs twice daily. He was previously on Anoro daily, however due to his discomfort he was unable to provide the inspiratory effort necessary to activate the Anoro. He was therefore then transition to Stiolto Respimat. He reports that this medication has been very helpful to him. He continues to use 1200 mg of Mucinex twice daily, he does believe that it is helping him to expectorate his sputum. His cough is productive of a green sputum. He denies any hemoptysis. He denies any increase in wheezing, chest tightness, palpitations. He has not experienced any fever, chills or body aches. See complete review of systems. CT of the chest completed on May 13, 2018 from the emergency department status post fall down several stairs showed multiple nondisplaced hairline fractures of the right anterior ribs (fourth, fifth, sixth, seventh and eighth ribs) also showed no acute airspace disease or pneumothorax. Newly noted is a suspicious spiculated left upper lobe nodule measuring 1.3 x 1.1 cm. Intake Vital Signs05/25/18 Height 5 ft 5 in 05/25/18 Weight: 156 lb 05/25/18 Body Mass Index (BMI) 25.9 Intake Visit Reasons: hospital f/u 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: No DME Vendor: [employer] Accompanied by: Allergies No Known Allergies Allergy (Verified 05/25/18 13:41) Medications Aclidinium [place] [Tudorza Pressair] 400 mcg IH BID 08/27/16 [History Confirmed 05/25/18] Hydroxychloroquine [Plaquenil] 200 mg PO BIDCM 08/27/16 [History Confirmed 05/25/18] Multivitamin [Multiple Vitamins] 1 ea PO DAILY 08/27/16 [History Confirmed 05/25/18] Omeprazole Magnesium 20 mg PO DAILY 08/27/16 [History Confirmed 05/25/18] Atorvastatin Calcium [Lipitor] 40 mg PO QHS #30 tab 08/31/16 [Rx Confirmed 05/25/18] furosemide 40 mg tablet 40 mg PO BID #180 tab 09/18/17 [Rx Confirmed 05/25/18] aspirin 81 mg chewable tablet 81 mg PO .QOD tab 10/15/17 [History Confirmed 05/25/18] carvedilol 6.25 mg tablet 6.25 mg PO BID 10/15/17 [History Confirmed 05/25/18] cholecalciferol (vitamin D3) 2,000 unit capsule 2,000 unit PO BID cap 10/15/17 [History Confirmed 05/25/18] fluticasone 50 mcg/actuation nasal spray,suspension 2 spray INTRANASAL BID g 10/15/17 [History Confirmed 05/25/18] levothyroxine 25 mcg capsule 25 mcg PO QDAY cap 10/15/17 [History Confirmed 05/25/18] losartan 50 mg tablet 100 mg PO QDAY 10/15/17 [History Confirmed 05/25/18] budesonide-formoterol HFA 160 mcg-4.5 mcg/actuation aerosol inhaler 2 puff INHALATION BID #3 device 01/13/18 [Rx Confirmed 05/25/18] warfarin 5 mg tablet 5 mg PO .COMPLEX tab 02/09/18 [History Confirmed 05/25/18] albuterol sulfate 2.5 mg/3 mL (0.083 %) solution for nebulization 2.5 mg INHALATION Q6HWA.RT #180 vial 03/03/18 [Rx Confirmed 05/25/18] albuterol sulfate HFA 90 mcg/actuation aerosol inhaler 2 puff INHALATION Q4H PRN PRN #18 g 03/30/18 [Rx Confirmed 05/25/18] prednisone 10 mg tablet 10 mg PO QDAY #30 tab 05/18/18 [Rx Confirmed 05/25/18] guaifenesin ER 1,200 mg tablet, extended release 12 hr 1,200 mg PO Q12H 05/25/18 [History Confirmed 05/25/18] PFSH Medical History Left ventricular thrombus (Acute) Nonischemic cardiomyopathy (Chronic) Severe left ventricular systolic dysfunction (Chronic) 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) PVD (peripheral vascular disease) (Chronic) Stage 3 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) PND (paroxysmal nocturnal dyspnea) (Chronic) Hyperlipidemia (Chronic) 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) Acute on chronic respiratory failure with hypoxia (Resolved) Psoriatic arthritis (Chronic) CHF (congestive heart failure), NYHA class I (Chronic) Pulmonary hypertension (Chronic) CAP (community acquired pneumonia) (Resolved) Chronic respiratory failure with hypoxia and hypercapnia (Resolved) Surgical History Implantable cardioverter-defibrillator (ICD) in situ (Chronic 12/27/16) History of left heart catheterization (Chronic) Family History Mother Heart disease Brother CVA (cerebral vascular accident) Father Cancer brain Grandmother Diabetes Social History Smoking Status: Former smoker how long ago did patient quit smokin, 1.5p/day second hand exposure: Yes alcohol intake: never substance use type: does not use caffeine: Yes Type: coffee Number of servings: 2 what type of physical activity do you participate in: walking frequency: 3-4 times per week Review of Systems Const CONSTITUTIONAL: Positive anorexia, body ache, fatigue and weight loss; negative chills, daytime sleepiness, fever(s), night sweats, oral thrush, stops breathing during sleep, weight loss, sleeping in chair, weight gain, frequent colds, seasonal allergies, other, headache(s) or orthopnea EETM Ear Nose Throat Mouth: Positive hearing normal; negative hard of hearing, hoarseness, dry mouth in morning, change in vision, itchy eyes, eye pain, swallowing Difficulty, ear pain, nose bleed, headache(s), mouth pain, nasal congestion, nasal discharge, post nasal drip, sinus pain, sinus pressure, sore throat or other Cardio Cardiovascular: Negative chest pain, chest pain at rest, chest pain with activity, irregular heart rhythm, edema, shortness of breath when lying down, palpitations, murmur or other Resp Respiratory: Positive as per HPI, shortness of breath shortness of breath: Positive with activity, cough cough: Positive productive color: Positive thick and green and pain on inspiration; negative pain with cough, wheezing, chest congestion, chest tightness, inhalers, increase use of rescue inhalers, snoring, apnea or other Gastro Gastrointestional: Negative bloody stools, change in appetite, difficulty swallowing, reflux, hematemesis, melena stool, loose stool, constipation or other Genitourinary: Negative blood in urine, nocturia, pain with urination or other Musc Musculoskeletal: Positive body pain; negative back pain, neck pain or other Skin/Breast Skin/Breast: Negative dry skin, itching, rash, unusual bruising, breast lump or other Neuro Neurological: Negative restless legs, confusion, weakness or other Psych Psychocological: Negative abnormal sleep pattern, anxiety, thoughts of hurting self/others, hopelessness or other Lymph Lymphatic: Negative easy bleeding, easy bruising, swollen lymph nodes or other Exam Const Constitutional: Positive conversant, cooperative, in no acute respiratory distress, well developed, well nourished, good hygiene, frail appearing, wearing supplemental oxygen and dyspenic Head Head: Positive normocephalic and atraumatic; negative cyanosis of lips/distal nose Eyes Eye: Positive clear conjunctiva; negative nystagmus or scleral abnormality Ears Ear: Positive hearing normal and external ears normal; negative hard of hearing Nose Nose: Positive external nose normal and no nasal discharge; negative epistaxis Mouth Mouth: Positive oral mucosae normal, no lesions, good dentition and posterior oropharynx is adequate; negative post nasal drip, malodorous breath or oral thrush present Mallampati Score: I: Mallampati Score Neck Neck: Positive normal visual inspection, full ROM and trachea midline; negative lymphadenopathy, JVD or tender Chest Wall Chest: Positive symmetric chest movement and increased A/P diameter Resp lung sounds: Positive clear to auscultation, diminished, prolonged expiratory time and normal chronic state of increased work of breathing; negative wheezes, rhonchi, rales, dullness to percussion, wheeze present on forced exhalation or use of accessory muscles Cardio Cardiac: Positive regular rate, regular rhythm, S1 normal and S2 normal; negative murmur GI GI: Positive normal to inspection; negative distended Genitourinary: Positive deferred Musc Musculoskeletal: Positive steady gait and ROM normal; negative kyphosis or scoliosis Skin Pulmonary Skin Exam: Positive intact; negative rash or lesion Pulses Pulse: Yes pulses normal x4 extremities Extremities Extremities: Yes capillary refill normal, No clubbing, No cyanosis, Yes edema Location: lower extremity location: Bilateral pitting +1 Neuro Neurologic: Yes conversant, Yes no focal neuro deficits, Yes normal concentration, Yes understands questions, Yes cooperative, Yes normal cognition, Yes normal coordination, No tremor Lymph Lymphatic: No lymphadenopathy, No tenderness, No cervical adenopathy Psych Appearance: Positive grossly normal, eye contact and well kempt Mental Status: Positive mental status grossly normal Mood: Positive congruent mood Affect: Positive normal affect Coding Level of Care Code Off vis,est,level 5 Diagnoses Lung nodule R91.1 Stage 3 severe COPD by GOLD classification J44.9 Acute on chronic respiratory failure with hypoxia J96.21 05/27/18 1050 <Electronically signed by Cheryl HESSC> Date Cheryl JOHNSTON Cosigner Signature: Date (if applicable) CC: Jose Maurer III, MD PROGRESS Observed: 05/20/2018 Status: COMPLETED Source: [place] 11:22 AM [facility] REPOSITORY O ID: [id number] Author: Jose Maurer III Service: (none) Author Type: Physician Type: Progress Notes Filed: 05/20/2018 1:20 PM Note Text: Transitional Care Management TCM Eligibility Documentation The following information was gathered during the initial Patient Outreach Encounter. Date of Outreach: 05/17/2018 Outreach Attempt 1: Contact Made Date of Discharge 05/16/2018 Some recent data might be hidden Provider Documentation: Jignesh Ramires is a 67 year old male here today for a follow up to recent hospitalization. I have reviewed the patient's hospital course including diagnostic testing performed during this hospitalization, their discharge medications, and my assessment and plan with the patient and any family members present at today's visit. [facility] 05/13- HPI: continues with pain L ant-lat chest. Known COPD and now has brown phlegm and freq cough. Trying to splint his chest. He does have difficult inspiration. Oxycodone not helping enough with pain. Pain control last only an hour. He is sleeping better. He also has been able to roll over in bed for the first time last night. Using spirivamat, breo. Has only used nebulizer once. Using albuterol inhaler and nebulizer. 2. He fell down the steps because he had been drinking alcohol. ER record shows alcohol record of 222, which I suspect is typo but probably indicates elevated blood level. He states that he will make an effort to quit drinking alcohol altogether. His is encouraging him to do so. 3. Known cardiomyopathy with CHF?Dr. Florian, sales order coordinator, recently doubled his Lasix dose. Patient notes decrease in lower leg edema 4. CT scan demonstrated total of 9 nondisplaced rib fractures 5. CT scan brain and cervical spine did not demonstrate acute injury 6. Psoriasis arthritis?stable PHYSICAL EXAMINATION BP 107/61 Pulse 87 Resp 18 Ht 5' 5 (1.65m) General appearance: Leaning forward with hands-on knees to facilitate breathing. Frequent congested cough., alert and well-hydrated, well nourished, Lungs: Distant breath sounds, clear to auscultation, no wheezing or rhonchi Heart: RRR without murmur, gallop, or rubs. No ectopy Torso: Swelling with ecchymosis left posterior shoulder. Purple ecchymosis behind the left ear along the neck and skull. Extremities: No lower leg edema. Deformities of several finger joints. Patch of psoriasis by left elbow Impression: Contusion left upper back and left lateral neck 9 nondisplaced rib fractures involving right anterior fourth, fifth, sixth, seventh, eighth ribs, and left anterior third, fourth, fifth, sixth ribs COPD, severe CHF?stable control Alcohol abuse Psoriasis with arthritis?stable Plan: continue oxycodone 5mg every 4 hrs as needed for pain add acetomenophen 1000mg three times/day same other medications continue home respiratory therapy avoid alcohol increase activity as able follow up with specialists as appointed delay flu shot and pneumovax for 2 wks after last dose of prednisone Chair stair lift ordered since patient sleeps on second floor 40 minute visit including review of records, obtaining history, and discussing pain management Jose Maurer III MD May 20, 2018 11:22 AM [facility] Observed: 05/20/2018 Status: COMPLETED Source: [place] 10:40 AM [facility] REPOSITORY [facility] JIGNESH [id number]) 1950 M NFR Date Time Provider Department 05/20/18 10:40 AM JOSE MAURER III During your visit today, we recorded the following information about you: Pulse Respiration Blood pressure Height 87/minute 18/minute 107/61 1.651 m Jose Maurer III MD 05/20/2018 1:20 PM Signed Transitional Care Management TCM Eligibility Documentation The following information was gathered during the initial Patient Outreach Encounter. Date of Outreach: 05/17/2018 Outreach Attempt 1: Contact Made Date of Discharge 05/16/2018 Some recent data might be hidden Provider Documentation: Jignesh Ramires is a 67 year old male here today for a follow up to recent hospitalization. I have reviewed the patient's hospital course including diagnostic testing performed during this hospitalization, their discharge medications, and my assessment and plan with the patient and any family members present at today's visit. [facility] 05/13- HPI: continues with pain L ant-lat chest. Known COPD and now has brown phlegm and freq cough. Trying to splint his chest. He does have difficult inspiration. Oxycodone not helping enough with pain. Pain control last only an hour. He is sleeping better. He also has been able to roll over in bed for the first time last night. Using spirivamat, breo. Has only used nebulizer once. Using albuterol inhaler and nebulizer. 2. He fell down the steps because he had been drinking alcohol. ER record shows alcohol record of 222, which I suspect is typo but probably indicates elevated blood level. He states that he will make an effort to quit drinking alcohol altogether. His is encouraging him to do so. 3. Known cardiomyopathy with CHF?Dr. Florian, sales order coordinator, recently doubled his Lasix dose. Patient notes decrease in lower leg edema 4. CT scan demonstrated total of 9 nondisplaced rib fractures 5. CT scan brain and cervical spine did not demonstrate acute injury 6. Psoriasis arthritis?stable PHYSICAL EXAMINATION BP 107/61 Pulse 87 Resp 18 Ht 5' 5 (1.65m) General appearance: Leaning forward with hands-on knees to facilitate breathing. Frequent congested cough., alert and well-hydrated, well nourished, Lungs: Distant breath sounds, clear to auscultation, no wheezing or rhonchi Heart: RRR without murmur, gallop, or rubs. No ectopy Torso: Swelling with ecchymosis left posterior shoulder. Purple ecchymosis behind the left ear along the neck and skull. Extremities: No lower leg edema. Deformities of several finger joints. Patch of psoriasis by left elbow Impression: Contusion left upper back and left lateral neck 9 nondisplaced rib fractures involving right anterior fourth, fifth, sixth, seventh, eighth ribs, and left anterior third, fourth, fifth, sixth ribs COPD, severe CHF?stable control Alcohol abuse Psoriasis with arthritis?stable Plan: continue oxycodone 5mg every 4 hrs as needed for pain add acetomenophen 1000mg three times/day same other medications continue home respiratory therapy avoid alcohol increase activity as able follow up with specialists as appointed delay flu shot and pneumovax for 2 wks after last dose of prednisone Chair stair lift ordered since patient sleeps on second floor 40 minute visit including review of records, obtaining history, and discussing pain management Jose Maurer III MD May 20, 2018 11:22 AM Jose Maurer III MD 05/20/2018 11:56 AM Signed Plan: continue oxycodone 5mg every 4 hrs as needed for pain add acetomenophen 1000mg three times/day same other medications continue home respiratory therapy avoid alcohol increase activity as able follow up with specialists as appointed delay flu shot and pneumovax for 2 wks after last dose of prednisone Jose Maurer III MD Referring Provider: SELF [200] Allergies As of Date: 05/20/2018 (No Known Allergies) Date Reviewed: 05/20/2018 Reviewed by: [place] ([facility]) ROGERIO Richards - Fully Assessed Reason for Visit: Hospital Follow Up [177] Staple remover [Other] Primary Visit Diagnosis:Hospital discharge follow-up [Z09] Other Visit Diagnoses:Screening for colon cancer [Z12.11] Obstructive chronic bronchitis (HCC) [J44.9] Psoriatic arthritis (HCC) [L40.50] 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] Chronic congestive heart failure, unspecified heart failure type (HCC) [I50.9] Heavy alcohol use [Z78.9] Closed fracture of multiple ribs of right side, initial encounter [S22.41XA] Order(s):FECAL OCCULT BLOOD TEST [SQIFOBT] Order #: [id number] FUTURE folic acid 1 mg tabletTake 1 tablet by mouth once daily.Disp: 100 tabletRfl: 3 COMPOUNDED PRESCRIPTIONchair stair lift Dx COPD, CHF 05/20/18Disp: 1 DeviceRfl: 0 Prescriptions as of 05/20/2018 Sig: OXYCODONE 5 MG TABLET Take 1 tablet by mouth every * CHOLECALCIFEROL (VITAMIN D3) * Taking 1000 IU 800 am and 800* VIT,CALCIUM 27-GOMEZ* Take 1 tablet by mouth once d* HYDROXYCHLOROQUINE 200 MG TAB* Take 1 tablet by mouth twice * LEVOTHYROXINE 25 MCG TABLET Take 1 tablet by mouth once d* OMEPRAZOLE 40 MG CAPSULE,MARÍA* Take 1 capsule by mouth once * FLUTICASONE 50 MCG/ACTUATION * Use 1 [place] in each nostril o* COMPOUNDED PRESCRIPTION Knee high support stockings .* ATORVASTATIN 40 MG TABLET Take 40 mg by mouth once wilian* CARVEDILOL 6.25 MG TABLET Take 6.25 mg by mouth twice d* WARFARIN 5 MG TABLET Take 5 mg by mouth daily as d* OXYGEN (HOME THERAPY) by Nasal Cannula route as dir* LOSARTAN 50 MG TABLET Take 50 mg by mouth once wilian* FUROSEMIDE 40 MG TABLET Take 40 mg by mouth twice raheem* COMPOUNDED PRESCRIPTION Please perform nocturnal puls* COMPOUNDED PRESCRIPTION Please perform nocturnal puls* ALBUTEROL SULFATE CONCENTRATE* Use 0.5 mL via nebulizer ever* COMPOUNDED PRESCRIPTION Please perform nocturnal oxim* COMPOUNDED PRESCRIPTION Please provide disability monika* COMPOUNDED PRESCRIPTION 1 Units four times daily as n* COMPOUNDED PRESCRIPTION Nebulizer, Mask, AND O2 Tubing.* BUDESONIDE-FORMOTEROL HFA 160* Inhale 2 Puffs as instructed * ALBUTEROL SULFATE HFA 90 MCG/* Inhale 2 Puffs as instructed * ACLIDINIUM BROMIDE 400 MCG/AC* Inhale 1 Inhalation as instru* ASPIRIN 81 MG TABLET,DELAYED * Take 1 tablet by mouth once d* COMPOUNDED PRESCRIPTION 2L of O2 at night. Length of* COMPOUNDED PRESCRIPTION Please enroll in pulmonary re* FOLIC ACID 1 MG TABLET Take 1 tablet by mouth once d* COMPOUNDED PRESCRIPTION chair stair lift Dx COPD, * Problem List As Of Date 05/20/2018 Noted Resolved DYSMETABOLIC SYNDROME X [E88.81] INVALID FOR* OBST CHRON BRONCHITIS WITH EXAC [J44.1] INVALID FOR* Tobacco use disorder [F17.200] INVALID FOR*01/09/2016 Obstructive chronic bronchitis [J44.9] INVALID FOR* Arthritis of hand, 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] INVALID FOR* Psoriatic arthritis (HCC) [L40.50] INVALID FOR* Psoriasis [L40.9] INVALID FOR* Benign non-nodular prostatic hyperplasia with l*INVALID FOR* Encounter for long-term (current) use of medica*INVALID FOR* Hypothyroidism [E03.9] INVALID FOR* Venous stasis dermatitis of right lower extremi*INVALID FOR* 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] INVALID FOR* CHF (congestive heart failure) (HCC) [I50.9] Cardiomyopathy (HCC) [I42.9] ICD (implantable cardioverter-defibrillator) in* Moderate to severe pulmonary hypertension (HCC)*INVALID FOR* Anemia [D64.9] INVALID FOR* assisted current use of anticoagulant therapy *INVALID FOR* Gastroesophageal reflux disease [K21.9] INVALID FOR* Heavy alcohol use [Z78.9] INVALID FOR* Right rib fracture [S22.31XA] INVALID FOR* Acute respiratory failure (HCC) [J96.00] INVALID FOR* Coronary arteriosclerosis in [place] artery [I25*INVALID FOR* Chronic obstructive pulmonary disease with acut*INVALID FOR* Chronic respiratory failure (HCC) [J96.10] INVALID FOR* Severe chronic obstructive pulmonary disease (H*INVALID FOR* Diverticulosis of colon [K57.30] INVALID FOR* Dyspnea, unspecified [R06.00] INVALID FOR* Hyperlipidemia [E78.5] INVALID FOR* History of cardiac catheterization [Z98.890] INVALID FOR* Peripheral vascular disease (HCC) [I73.9] INVALID FOR* Acute myocardial infarction (HCC) [I21.9] INVALID FOR* Other instructions from your clinician: Plan: continue oxycodone 5mg every 4 hrs as needed for pain add acetomenophen 1000mg three times/day same other medications continue home respiratory therapy avoid alcohol increase activity as able follow up with specialists as appointed delay flu shot and pneumovax for 2 wks after last dose of prednisone Jose Maurer III MD Prescriptions ordered this encounter Disp Refills Start End FOLIC ACID 1 MG TABLET 100 * 3 05/20/2018 Class: Print RX Route: ORAL Sig: Take 1 tablet by mouth once daily. COMPOUNDED PRESCRIPTION 1 De* 0 05/20/2018 Class: Print RX Sig: chair stair lift Dx COPD, CHF 05/20/18 Encounter Status:Closed by JOSE MAURER III, MD on 05/20/18 CNCO Observed: 05/18/2018 Status: COMPLETED Source: [place] 12:00 AM [facility] REPOSITORY Letter Text [facility] Controlled Substance Agreement Purpose The purpose of this agreement is to prevent misunderstandings about certain medicines you will be taking for pain management. It will help both you and your doctor to comply with laws regarding controlled pharmaceuticals. I understand that this agreement is essential to the trust and confidence necessary in a doctor/patient relationship and that my doctor undertakes to treat me based on this agreement. AGREEMENT I, Jignesh Ramires, understand that if I break this agreement, my doctor will stop prescribing these pain-control medicines. In this case, my doctor will taper off the medicine over a period of several days, as necessary, to avoid withdrawal symptoms. A drug-dependence treatment program may be recommended. In certain cases, you may be terminated as a patient. I will communicate fully with my doctor about the character and intensity of my pain, its effect on my daily life, and how well the medicine is helping to relieve the pain. I will not use any illegal controlled substances, including marijuana, cocaine, etc. Random urine and/or serum toxicology screens may be requested; this testing may be unannounced and occur at any time. I agree that I will submit to a blood or urine test if requested by my doctor to determine my compliance with my program of pain control medicine. I will not share, sell or trade my medication with anyone. I will not attempt to obtain any controlled substance from any other doctor, other than a covering physician. I will safeguard my pain medicine from loss or theft. Lost or stolen medicines may not be replaced. I agree that refills of my prescriptions for pain medicine will be made only at the time of an office visit or during regular office hours. No refills will be available on evenings or weekends. I authorize the doctor and my pharmacy to cooperate fully with any city, state or federal law enforcement agency, including this state's Board of Pharmacy, in the investigation of any possible misuse, sale, or other diversion of my medication. I authorize my doctor to provide a copy of this Agreement to my pharmacy. I agree to waive any applicable privilege or right of privacy or confidentiality with respect to these authorizations. I agree that I will use my medicine at a rate no greater than the prescribed rate and that use of my medicine at a greater rate may result in my being without medication for a period of time. If legal authorities have questions concerning treatment, for example, if a patient were obtaining medications at several pharmacies, all confidentiality is waived and the authorities may be given full access to the [facility] Records of narcotic administration. I agree to follow these guidelines and they have been fully explained to me. All of my questions and concerns regarding treatment have been answered. A copy of this document has been given to me. Pharmacy: Location: Phone number: Patient: Date: May 18, 2018 Jignesh Ramires [id number] Physician: Date: May 18, 2018 Jose Maurer MD Information regarding Controlled Substance Prescriptions: Please read carefully. Strong pain medications such as Tramadol, Narcotic analgesics are helpful to control a severe pain when it is difficult to control with simple pain medications, but they can cause problems if taken for too long. The goal of treatment is to control the pain to a level where you will be able to function. The long-term use of such substances as opioids (narcotic analgesics), benzodiazepine tranquilizers, and barbiturate sedatives is controversial because of uncertainty regarding the extent to which they actually improve the lives of those receiving them in meterman use. Some people receive prolonged benefit and others do not. Some may actually have an increase in pain. There is also the risk of developing addiction or causing relapse of addiction. It is important that you know the side effects of these medications including: Excessive doses suppress breathing and may be fatal. This is especially true if the person is a child. Drowsiness and impaired concentration may create danger with driving or operating machinery, especially shortly after dose increases. Some people describe lasting feelings of reduced alertness and concentration. Toxicity is much more likely if the drug is combined with tranquilizers or sedatives, so the user must never do this Constipation is most common. Stool softeners or other agents are then required. If these drugs are taken regularly during the latter months of , the child will probably be born physically dependent on them. Many deaths have occurred because of abuse of these medications, often by people other than those for whom they were prescribed, or because of combining them with other substances. Therefore, strict accountability is necessary. The following policies are agreed to by the treatment recipient. Selling or giving away this medication is against the law and may cause harm or to the person who receives it. Thus you must never give controlled substances to anyone else, even if he or she has the same symptoms as you. It is equally important that you secure your medications so that no one else can access them. Workers in the home, friends of children, and visitors can be expected to look through medicine cabinets and take drugs of abuse. Medications should not be left in sight in hotel rooms, unoccupied cars, etc. Should a child accidentally ingest one of your pills, obtain emergency medical care immediately. A good rule of thumb is not to put the medication any place you would not leave $1000 in solorio. A small, inexpensive safe or lockable cabinet is a good idea. Because diverted / stolen opioids are causing an epidemic of deaths in the , lost or stolen medications will not be replaced. It is your responsibility to safeguard them. In addition [place] law requires certain procedures for the prescription of controlled substances which will be discussed. PROGRESS Observed: 05/17/2018 Status: COMPLETED Source: [place] 4:02 PM [facility] REPOSITORY HNO ID: [id number] Author: Lj LaraRn) JANIE Flynn Service: (none) Author Type: Registered Nurse Type: Progress Notes Filed: 05/17/2018 4:32 PM Note Text: TRANSITION CARE MANAGEMENT (TCM) INITIAL CONTACT Provider Action/FYI: Staple removal- scalp laceration Initial contact with patient post discharge, spoke to patient Patient identified by name and . TRANSITION CARE MANAGEMENT: Date of Outreach: 05/17/2018 Outreach Attempt 1: Contact Made Date of Discharge 05/16/2018 Some recent data might be hidden SUMMARY: -Pt discharged from on 05/16. -Follow up appointment on05/20 -Medication review done- new meds inhalers/ diuretics- see TCM encounter. -Admitted for: CHF, Heavy ETOH use, Fall, rib fx, scalp laceration CONCERNS: States, It is difficult to take a deep breath due to my broken ribs Reports he is taking Oxycodone as ordered. Report breathing is the same or maybe a little worse since discharge. Reports slight ankle swelling. States he has been in contact with both CARD and PULM since discharge regarding above SX. Reports CARD stopped his Coumadin for 1 week d/t injuries. Reports CARD recommended taking Furosemide 40 mg twice daily -4 hours apart, but did not change dosage- Reports he is waiting for them to call him back to clarify this. Denies increase in weight. Weighing daily Splinting with a pillow when coughing Using O2 at 4l- reports this is his baseline. Reports using Breo instead of Symbicort and Spiriva instead of Tudorza (Easier to inhale Breo and Spiriva and therefore less painful.) Up walking - taking short walks. Denies CP, increased cough, wheezing, lightheadedness or palpitations. Agreed to call CARD or PULM with any worsening of swelling / breathing. Verbalized understanding of SXS to see emergency medical attention. Scalp laceration intact with meenakshi. Denies bleeding/ swelling or changes since discharge. Patient Spoke with TCM pharm for complete med review. Aware of TCM appt 05/20 Denies further concerns or questions. NEW MEDICATIONS: oxyCODONE IR 5 mg immediate release tablet Commonly known as: ROXICODONE Take 1 tablet by mouth every 6 hours as needed for up to 7 days. Last time this was given: 5 mg on 05/16/2018 1:37 PM vitamin with folic acid 1 mg 60 mg iron-1 mg Tab Take 1 tablet by mouth once daily. Last time this MEDS HELD/DISCONTINUED: none BRIEF HOSPITAL COURSE: The following content has been copied and pasted from patient's discharge summary. HOSPITAL COURSE: Mr. Ramires sustained a fall resulting in rib fractures and scalp laceration. Scalp laceration was repaired, and rib fractures did not require surgery. He was seen by internal medicine for acute respiratory failure. ? ? CONSULTING TEAMS DURING HOSPITALIZATION: Internal Medicine ? PATIENT CONDITION AT DISCHARGE: Stable ? DISCHARGE DISPOSITION: Home/Self Care - Lj Flynn RN, [facility] [phone] ? 12 LEAD ELECTROCARDIOGRAM Observed: 05/17/2018 Status: F Source: [place] 2:52 PM [facility] REPOSITORY [facility] Cardiovascular Services [address] [place] [address] 12 Lead EKG 05/13/182012 MR#: [id number] Acct: [id number] Name: JIGNESH RAMIRES Rep #: [id number] : 1950 67 From: Ben De Los Santos MD Attending Dr: Status: DEP ER Ordering Dr: Case Strauss MD Date: 05/13/18 Location: ED Sex: M C Admitted: Test Reason : NEURO S/SX, FALL Blood Pressure : / mmHG Vent. Rate : 076 BPM Atrial Rate : 076 BPM P-R Int : 238 ms QRS Dur : 128 ms QT Int : 458 ms P-R-T Axes : 053 053 081 degrees QTc Int : 515 ms Sinus rhythm with 1st degree A-V block Non-specific intra-ventricular conduction block Abnormal ECG Confirmed by OLAF SUBRAMANIAN, BEN ([id number]), editorial project manager YARIEL STILES ([id number]) on 05/17/2018 2:52:22 PM Referred By: ALEC Confirmed By:BEN DE LOS SANTOS MD 05/17/18 1452 Date Ben De Los Santos MD CC: Case Strauss MD; Jose Maurer III, MD Signed PROGRESS Observed: 05/17/2018 Status: COMPLETED Source: [place] 1:44 PM [facility] [place] REPOSITORY O ID: [id number] Author: Gorge Jacobsen Pharmd Service: (none) Author Type: Pharmacist Type: Progress Notes Filed: 05/17/2018 3:05 PM Note Text: TRANSITION CARE MANAGEMENT (TCM) PHARMACY CONTACT Provider Action/FYI: ? TCM Medication Reconciliation completed for patient. See medication list table below for details. No further action required at this time. Initial contact with patient post discharge, spoke to patient. Patient identified by name and . Summary: -Pt discharged from [facility] on 05/16/2018. -Follow up appointment on 05/20/2018. -Medication review done Yes. -Admitted for Fall Patient was contacted by telephone, identified for pharmacist care from discharge call list, and gave consent to manage medications related to transitional care management pursuant to the consult agreement with the [facility]. Patient Concerns: Patient had no questions/concerns regarding medications. Discussed vaccines with patient after steroid therapy. Advised patient to get influenza vaccine when able. History of Present Illness: The following content has been copied and pasted from patient's discharge summary. Mr. Ramires sustained a fall resulting in rib fractures and scalp laceration. Scalp laceration was repaired, and rib fractures did not require surgery. He was seen by internal medicine for acute respiratory failure. PAST MEDICAL HISTORY Diagnosis Date - Acute and chronic respiratory failure with hypoxia (HCC) - Arthritis of hand, degenerative 02/02/2014 - Benign non-nodular prostatic hyperplasia with lower urinary tract symptoms 01/09/2016 - Cardiomyopathy (HCC) - CHF (congestive heart failure) (HCC) - Chronic obstructive pulmonary disease (COPD) ([facility]) severe - Diverticulosis of colon (without mention of hemorrhage) - HTN (hypertension) - Hyperlipidemia - ICD (implantable cardioverter-defibrillator) in place - Internal hemorrhoids without mention of complication - Moderate to severe pulmonary hypertension (HCC) 04/01/2017 - NICM (nonischemic cardiomyopathy) ([facility]) - Obstructive chronic bronchitis (HCC) 08/06/2010 - PMH - PAST MEDICAL HISTORY OF cystic acne - Psoriasis 02/02/2014 - Psoriatic arthritis (HCC) 02/02/2014 - Pulmonary HTN (HCC) - PVD (peripheral vascular disease) ([facility]) - Snoring - SOB (shortness of breath) - Stage 3 severe COPD by GOLD classification ([facility]) - Systolic CHF ([facility]) Social History Substance Use Topics - Smoking status: Former Smoker Packs/day: 0.50 Years: 30.00 Types: Cigarettes Quit date: 08/21/2011 - Smokeless tobacco: Never Used - Alcohol use Yes Comment: drinks 3 beer daily Immunization History Administered Date(s) Administered Influenza Seasonal - High Dose - Age 65+ 05/29/2016 Influenza Seasonal Inj Age 3+ 05/25/2014 06/05/2017 Influenza Seasonal Inj Quadrivalent Age 3+ 05/30/2015 Influenza Vaccine, Split-Non Spec 07/02/2007 06/28/2008 05/31/2009 06/13/2010 06/19/2011 05/08/2012 05/25/2013 Influenza Vaccine, Whole 06/24/2006 Pneumococcal-13 Vac Conjugate 01/09/2016 Pneumovax 06/24/2006 07/19/2013 Tdap (Age 7+) 05/23/2005 05/30/2015 Zostavax 05/21/2011 Deferred Date(s) Deferred Influenza Seasonal - High Dose - Age 65+ 05/14/2018 Last 3 Encounter BP Readings: Date: BP: 05/13/2018 151/70 12/11/2017 112/66 11/16/2017 126/76[repeat[ eGFR (no units) Date Value 05/16/2018 >60 eGFR-All Other Races (.) Date Value 04/30/2016 >60 eGFR- (no units) Date Value 04/30/2016 >60 Estimated Creatinine Clearance: 68.1 mL/min (based on SCr of 0.99 mg/dL). ALLERGIES No Known Allergies Preferred pharmacy: [facility] [place] [address] [address] [facility] - [phone] [address] [address] [employer] [place] [address] [address] [facility] - [phone] [address] [address] [facility] [address] [place] [address], [place] [address] [address] [facility] [phone] [facility] [address] e- [facility]/pharmacy #[id number] [place] [address] [address] - [phone] [facility] [address] [address] [facility] [address] Medication Reconciliation: Legend: Stopped, New, Changed, Added to list Medication List Medication Directions Comments Action/Plan aclidinium bromide (TUDORZA PRESSAIR) 400 mcg/actuation aepb Inhale 1 Inhalation as instructed twice daily. Taking as prescribed without any issues. Temporarily on Spiriva albuterol (PROVENTIL) 2.5 mg/0.5 mL nebulizer solution Use 0.5 mL via nebulizer every 6 hours as needed. Taking as prescribed without any issues albuterol HFA (PROAIR HFA) 90 mcg/actuation inhaler Inhale 2 Puffs as instructed every 4 hours as needed. Taking as prescribed without any issues aspirin, enteric coated (ASPIRIN, ENTERIC COATED) 81 mg EC tablet Take 1 tablet by mouth once daily. Taking as prescribed without any issues atorvastatin (LIPITOR) 40 mg tablet Take 40 mg by mouth once daily. Taking as prescribed without any issues budesonide-formoterol (SYMBICORT) 160-4.5 mcg/actuation inhaler Inhale 2 Puffs as instructed twice daily. Taking as prescribed without any issues carvedilol (COREG) 6.25 mg tablet Take 6.25 mg by mouth twice daily with meals. Taking as prescribed without any issues cholecalciferol (VITAMIN D) 1,000 unit tab tablet Taking 1600 IU 800 am and 800 pm Taking as prescribed without any issues. Fix sig COMPOUNDED PRESCRIPTION 1 Units four times daily as needed. NEBULIZER FOR HOME USE. DX: COPD exacerbation ferrous sulfate 325 mg (65 mg iron) tablet Take 1 tablet by mouth twice daily with meals. Patient no longer taking Removed from medication list fluticasone (FLONASE) 50 mcg/actuation nasal spray Use 1 [place] in each nostril once daily. PRN furosemide (LASIX) 40 mg tablet Take 40 mg by mouth twice daily. Taking as prescribed without any issues guaiFENesin (MUCINEX) 1,200 mg Ta12 Take 1,200 mg by mouth twice daily. Not currently using Removed from medication list hydroxychloroquine (PLAQUENIL) 200 mg tablet Take 1 tablet by mouth twice daily. Taking as prescribed without any issues levothyroxine (LEVOXYL) 25 mcg tablet Take 1 tablet by mouth once daily. Take on empty stomach. For Thyroid Taking as prescribed without any issues losartan (COZAAR) 50 mg tablet Take 50 mg by mouth once daily. Taking as prescribed without any issues multivitamin tablet Take 1 tablet by mouth once daily. Discontinued to start vitamin Removed from medication list Omeprazole 40 mg capsule Take 1 capsule by mouth once daily. Taking as prescribed without any issues oxyCODONE IR (ROXICODONE) 5 mg immediate release tablet Take 1 tablet by mouth every 6 hours as needed for up to 7 days. Taking every 6 hours while awake. Pain controlled. predniSONE (DELTASONE) 10 mg tablet Take 10 mg by mouth as directed. Take 4 tablets (40 mg) daily for 3 days, then 3 tablets (30 mg) daily for 3 days, then 2 tablets (20) daily for 3 days, then 1 tablet (10 mg) daily for 3 days. Course of therapy completed Removed from medication list vitamin with folic acid 1 mg 60 mg iron-1 mg tab Take 1 tablet by mouth once daily. Has not picked up yet warfarin (COUMADIN) 5 mg tablet Take 5 mg by mouth daily as directed. On hold for a week due to possible internal bleeding Assessment: ? Source of medication information: Medication list and Memory ? Were adherence barriers identified? No ? Every medication has an indication: Yes ? Medical problems with no assigned therapy: No ? Drug therapy problems identified: None Additional follow up: ? Follow up in 1-2 weeks Appointments for Next 60 Days Date Time Provider Location Dept Phone 05/20/2018 10:40 AM JOSE MAURER III [facility] [phone] Interventions Made: Medication counseling Time spent on patient: 30-45 minutes Gorge Jacobsen, CucoD May 17, 2018 1:45 PM JEANETTE Observed: 05/17/2018 Status: COMPLETED Source: [place] 12:00 AM [facility] REPOSITORY Patient Outreach (PHRXRF) JIGNESH RAMIRES ([id number]) 1950 M NFR Date Time Provider Department 05/17/18 EVE VANN, GORGE PHRXRNicole During your visit today, we recorded the following information about you: Gorge Jacobsen PharmD 05/17/2018 3:05 PM Signed TRANSITION CARE MANAGEMENT (TCM) PHARMACY CONTACT Provider Action/FYI: ? TCM Medication Reconciliation completed for patient. See medication list table below for details. No further action required at this time. Initial contact with patient post discharge, spoke to patient. Patient identified by name and . Summary: -Pt discharged from [facility] on 05/16/2018. -Follow up appointment on 05/20/2018. -Medication review done Yes. -Admitted for Fall Patient was contacted by telephone, identified for pharmacist care from discharge call list, and gave consent to manage medications related to transitional care management pursuant to the consult agreement with the [facility]. Patient Concerns: Patient had no questions/concerns regarding medications. Discussed vaccines with patient after steroid therapy. Advised patient to get influenza vaccine when able. History of Present Illness: The following content has been copied and pasted from patient's discharge summary. Mr. Ramires sustained a fall resulting in rib fractures and scalp laceration. Scalp laceration was repaired, and rib fractures did not require surgery. He was seen by internal medicine for acute respiratory failure. PAST MEDICAL HISTORY Diagnosis Date - Acute and chronic respiratory failure with hypoxia (HCC) - Arthritis of hand, degenerative 02/02/2014 - Benign non-nodular prostatic hyperplasia with lower urinary tract symptoms 01/09/2016 - Cardiomyopathy (HCC) - CHF (congestive heart failure) (HCC) - Chronic obstructive pulmonary disease (COPD) (HCC) severe - Diverticulosis of colon (without mention of hemorrhage) - HTN (hypertension) - Hyperlipidemia - ICD (implantable cardioverter-defibrillator) in place - Internal hemorrhoids without mention of complication - Moderate to severe pulmonary hypertension (HCC) 04/01/2017 - NICM (nonischemic cardiomyopathy) (HCC) - Obstructive chronic bronchitis (HCC) 08/06/2010 - PMH - PAST MEDICAL HISTORY OF cystic acne - Psoriasis 02/02/2014 - Psoriatic arthritis (HCC) 02/02/2014 - Pulmonary HTN ([facility]) - PVD (peripheral vascular disease) ([facility]) - Snoring - SOB (shortness of breath) - Stage 3 severe COPD by GOLD classification ([facility]) - Systolic CHF ([facility]) Social History Substance Use Topics - Smoking status: Former Smoker Packs/day: 0.50 Years: 30.00 Types: Cigarettes Quit date: 08/21/2011 - Smokeless tobacco: Never Used - Alcohol use Yes Comment: drinks 3 beer daily Immunization History Administered Date(s) Administered Influenza Seasonal - High Dose - Age 65+ 05/29/2016 Influenza Seasonal Inj Age 3+ 05/25/2014 06/05/2017 Influenza Seasonal Inj Quadrivalent Age 3+ 05/30/2015 Influenza Vaccine, Split-Non Spec 07/02/2007 06/28/2008 05/31/2009 06/13/2010 06/19/2011 05/08/2012 05/25/2013 Influenza Vaccine, Whole 06/24/2006 Pneumococcal-13 Vac Conjugate 01/09/2016 Pneumovax 06/24/2006 07/19/2013 Tdap (Age 7+) 05/23/2005 05/30/2015 Zostavax 05/21/2011 Deferred Date(s) Deferred Influenza Seasonal - High Dose - Age 65+ 05/14/2018 Last 3 Encounter BP Readings: Date: BP: 05/13/2018 151/70 12/11/2017 112/66 11/16/2017 126/76[repeat[ eGFR (no units) Date Value 05/16/2018 >60 eGFR-All Other Races (.) Date Value 04/30/2016 >60 eGFR- (no units) Date Value 04/30/2016 >60 Estimated Creatinine Clearance: 68.1 mL/min (based on SCr of 0.99 mg/dL). ALLERGIES No Known Allergies Preferred pharmacy: [facility] [place] [place] [address] [address] [facility] - [phone] [address] [address] [employer] [place] [address] [address] [facility] - [phone] [place] [address] [facility] [place], [place] [address] - [address] - [phone] [address] [facility] [address] [facility]/pharmacy #[id number] [address] [address] [facility]. - [phone] [facility] [id number] [address] [facility]. [facility] [address] Medication Reconciliation: Legend: Stopped, New, Changed, Added to list Medication List Medication Directions Comments Action/Plan aclidinium bromide (TUDORZA PRESSAIR) 400 mcg/actuation aepb Inhale 1 Inhalation as instructed twice daily. Taking as prescribed without any issues. Temporarily on Spiriva albuterol (PROVENTIL) 2.5 mg/0.5 mL nebulizer solution Use 0.5 mL via nebulizer every 6 hours as needed. Taking as prescribed without any issues albuterol HFA (PROAIR HFA) 90 mcg/actuation inhaler Inhale 2 Puffs as instructed every 4 hours as needed. Taking as prescribed without any issues aspirin, enteric coated (ASPIRIN, ENTERIC COATED) 81 mg EC tablet Take 1 tablet by mouth once daily. Taking as prescribed without any issues atorvastatin (LIPITOR) 40 mg tablet Take 40 mg by mouth once daily. Taking as prescribed without any issues budesonide-formoterol (SYMBICORT) 160-4.5 mcg/actuation inhaler Inhale 2 Puffs as instructed twice daily. Taking as prescribed without any issues carvedilol (COREG) 6.25 mg tablet Take 6.25 mg by mouth twice daily with meals. Taking as prescribed without any issues cholecalciferol (VITAMIN D) 1,000 unit tab tablet Taking 1600 IU 800 am and 800 pm Taking as prescribed without any issues. Fix sig COMPOUNDED PRESCRIPTION 1 Units four times daily as needed. NEBULIZER FOR HOME USE. DX: COPD exacerbation ferrous sulfate 325 mg (65 mg iron) tablet Take 1 tablet by mouth twice daily with meals. Patient no longer taking Removed from medication list fluticasone (FLONASE) 50 mcg/actuation nasal spray Use 1 [place] in each nostril once daily. PRN furosemide (LASIX) 40 mg tablet Take 40 mg by mouth twice daily. Taking as prescribed without any issues guaiFENesin (MUCINEX) 1,200 mg Ta12 Take 1,200 mg by mouth twice daily. Not currently using Removed from medication list hydroxychloroquine (PLAQUENIL) 200 mg tablet Take 1 tablet by mouth twice daily. Taking as prescribed without any issues levothyroxine (LEVOXYL) 25 mcg tablet Take 1 tablet by mouth once daily. Take on empty stomach. For Thyroid Taking as prescribed without any issues losartan (COZAAR) 50 mg tablet Take 50 mg by mouth once daily. Taking as prescribed without any issues multivitamin tablet Take 1 tablet by mouth once daily. Discontinued to start vitamin Removed from medication list Omeprazole 40 mg capsule Take 1 capsule by mouth once daily. Taking as prescribed without any issues oxyCODONE IR (ROXICODONE) 5 mg immediate release tablet Take 1 tablet by mouth every 6 hours as needed for up to 7 days. Taking every 6 hours while awake. Pain controlled. predniSONE (DELTASONE) 10 mg tablet Take 10 mg by mouth as directed. Take 4 tablets (40 mg) daily for 3 days, then 3 tablets (30 mg) daily for 3 days, then 2 tablets (20) daily for 3 days, then 1 tablet (10 mg) daily for 3 days. Course of therapy completed Removed from medication list vitamin with folic acid 1 mg 60 mg iron-1 mg tab Take 1 tablet by mouth once daily. Has not picked up yet warfarin (COUMADIN) 5 mg tablet Take 5 mg by mouth daily as directed. On hold for a week due to possible internal bleeding Assessment: ? Source of medication information: Medication list and Memory ? Were adherence barriers identified? No ? Every medication has an indication: Yes ? Medical problems with no assigned therapy: No ? Drug therapy problems identified: None Additional follow up: ? Follow up in 1-2 weeks Appointments for Next 60 Days Date Time Provider Location Dept Phone 05/20/2018 10:40 AM JOSE MAURER III [facility] [phone] Interventions Made: Medication counseling Time spent on patient: 30-45 minutes Gorge Jacobsen PharmD May 17, 2018 1:45 PM Allergies As of Date: 05/17/2018 (No Known Allergies) Date Reviewed: 05/16/2018 Reviewed by: Bartolo (Rn) JANIE Ortez - Fully Assessed Reason for Visit: Transition Of Care [4074] Cmt: Pharmacy Discharge 05/16/2018 Order(s):cholecalciferol (VITAMIN D) 1,000 unit tab tabletTaking 1000 IU 800 am and 800 pmDisp: Rfl: Prescriptions as of 05/17/2018 Sig: CHOLECALCIFEROL (VITAMIN D3) * Taking 1000 IU 800 am and 800* OXYCODONE 5 MG TABLET Take 1 tablet by mouth every * HYDROXYCHLOROQUINE 200 MG TAB* Take 1 tablet by mouth twice * LEVOTHYROXINE 25 MCG TABLET Take 1 tablet by mouth once d* OMEPRAZOLE 40 MG CAPSULE,MARÍA* Take 1 capsule by mouth once * FLUTICASONE 50 MCG/ACTUATION * Use 1 [place] in each nostril o* ATORVASTATIN 40 MG TABLET Take 40 mg by mouth once wilian* CARVEDILOL 6.25 MG TABLET Take 6.25 mg by mouth twice d* WARFARIN 5 MG TABLET Take 5 mg by mouth daily as d* LOSARTAN 50 MG TABLET Take 50 mg by mouth once wilian* FUROSEMIDE 40 MG TABLET Take 40 mg by mouth twice raheem* ALBUTEROL SULFATE CONCENTRATE* Use 0.5 mL via nebulizer ever* BUDESONIDE-FORMOTEROL HFA 160* Inhale 2 Puffs as instructed * ALBUTEROL SULFATE HFA 90 MCG/* Inhale 2 Puffs as instructed * ACLIDINIUM BROMIDE 400 MCG/AC* Inhale 1 Inhalation as instru* ASPIRIN 81 MG TABLET,DELAYED * Take 1 tablet by mouth once d* VIT,CALCIUM 27-GOMEZ* Take 1 tablet by mouth once d* COMPOUNDED PRESCRIPTION Knee high support stockings .* OXYGEN (HOME THERAPY) by Nasal Cannula route as dir* COMPOUNDED PRESCRIPTION Please perform nocturnal puls* COMPOUNDED PRESCRIPTION Please perform nocturnal puls* COMPOUNDED PRESCRIPTION Please perform nocturnal oxim* COMPOUNDED PRESCRIPTION Please provide disability monika* COMPOUNDED PRESCRIPTION 1 Units four times daily as n* COMPOUNDED PRESCRIPTION Nebulizer, Mask, AND O2 Tubing.* COMPOUNDED PRESCRIPTION 2L of O2 at night. Length of* COMPOUNDED PRESCRIPTION Please enroll in pulmonary re* Medication notes this encounter FUROSEMIDE 40 MG TABLET >> Gorge Jacobsen PharmSamir 05/17/2018 3:05 PM >> EVE (PHARMACIST)GORGE May 17, 2018 3:05 PM Problem List As Of Date 05/17/2018 Noted Resolved DYSMETABOLIC SYNDROME X [E88.81] INVALID FOR* OBST CHRON BRONCHITIS WITH EXAC [J44.1] INVALID FOR* Tobacco use disorder [F17.200] INVALID FOR*01/09/2016 Obstructive chronic bronchitis [J44.9] INVALID FOR* Arthritis of hand, 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] INVALID FOR* Psoriatic arthritis (HCC) [L40.50] INVALID FOR* Psoriasis [L40.9] INVALID FOR* Benign non-nodular prostatic hyperplasia with l*INVALID FOR* Encounter for long-term (current) use of medica*INVALID FOR* Hypothyroidism [E03.9] INVALID FOR* Venous stasis dermatitis of right lower extremi*INVALID FOR* 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] INVALID FOR* CHF (congestive heart failure) (HCC) [I50.9] Cardiomyopathy (HCC) [I42.9] ICD (implantable cardioverter-defibrillator) in* Moderate to severe pulmonary hypertension (HCC)*INVALID FOR* Anemia [D64.9] INVALID FOR* assisted current use of anticoagulant therapy *INVALID FOR* Gastroesophageal reflux disease [K21.9] INVALID FOR* Heavy alcohol use [Z78.9] INVALID FOR* Right rib fracture [S22.31XA] INVALID FOR* Prescriptions ordered this encounter Disp Refills Start End CHOLECALCIFEROL (VITAMIN D3) 1,000 U* 05/17/2018 Class: Med Update Sig: Taking 1000 IU 800 am and 800 pm Medications Discontinued During This Encounter guaiFENesin (MUCINEX) 1,200 mg Ta12 05/17/2018 Class: Historical Med Route: ORAL Sig: Take 1,200 mg by mouth twice daily. Disc: Course of therapy completed predniSONE (DELTASONE) 10 mg tablet 05/06/2018 05/17/2018 Class: Historical Med Route: ORAL Sig: Take 10 mg by mouth as directed. Take 4 tablets (40 mg) daily for 3 days, then 3 tablets (30 mg) daily for 3 days, then 2 tablets (20) daily for 3 days, then 1 tablet (10 mg) daily for 3 days. Disc: Course of therapy completed multivitamin tablet 0 12/01/2012 05/17/2018 Class: Med Update Route: ORAL Sig: Take 1 tablet by mouth once daily. Disc: Discontinued by Patient ferrous sulfate 325 mg (65 mg iron) * 60 t* 5 05/07/2017 05/17/2018 Route: ORAL Sig: Take 1 tablet by mouth twice daily with meals. Disc: Discontinued by Patient cholecalciferol (VITAMIN D) 1,000 un* 04/30/2016 05/17/2018 Class: Med Update Sig: Taking 1600 IU 800 am and 800 pm Disc: Reason for discontinue is not on file. Encounter Status:Closed by EVE (PHARMACIST)GORGE on 05/17/18 JEANETTE Observed: 05/17/2018 Status: COMPLETED Source: [place] 12:00 AM [facility] REPOSITORY Patient Outreach (FAMPWS) JIGNESH RAMIRES ([id number]) 1950 M NFR Date Time Provider Department 05/17/18 LJ FLYNN (RN) FAMPWS During your visit today, we recorded the following information about you: Lj Flynn RN, RN 05/17/2018 4:32 PM Signed TRANSITION CARE MANAGEMENT (TCM) INITIAL CONTACT Provider Action/FYI: Staple removal- scalp laceration Initial contact with patient post discharge, spoke to patient Patient identified by name and . TRANSITION CARE MANAGEMENT: Date of Outreach: 05/17/2018 Outreach Attempt 1: Contact Made Date of Discharge 05/16/2018 Some recent data might be hidden SUMMARY: -Pt discharged from on 05/16. -Follow up appointment on05/20 -Medication review done- new meds inhalers/ diuretics- see TCM encounter. -Admitted for: CHF, Heavy ETOH use, Fall, rib fx, scalp laceration CONCERNS: States, It is difficult to take a deep breath due to my broken ribs Reports he is taking Oxycodone as ordered. Report breathing is the same or maybe a little worse since discharge. Reports slight ankle swelling. States he has been in contact with both CARD and PULM since discharge regarding above SX. Reports CARD stopped his Coumadin for 1 week d/t injuries. Reports CARD recommended taking Furosemide 40 mg twice daily -4 hours apart, but did not change dosage- Reports he is waiting for them to call him back to clarify this. Denies increase in weight. Weighing daily Splinting with a pillow when coughing Using O2 at 4l- reports this is his baseline. Reports using Breo instead of Symbicort and Spiriva instead of Tudorza (Easier to inhale Breo and Spiriva and therefore less painful.) Up walking - taking short walks. Denies CP, increased cough, wheezing, lightheadedness or palpitations. Agreed to call CARD or PULM with any worsening of swelling / breathing. Verbalized understanding of SXS to see emergency medical attention. Scalp laceration intact with meenakshi. Denies bleeding/ swelling or changes since discharge. Patient Spoke with TCM pharm for complete med review. Aware of TCM appt 05/20 Denies further concerns or questions. NEW MEDICATIONS: oxyCODONE IR 5 mg immediate release tablet Commonly known as: ROXICODONE Take 1 tablet by mouth every 6 hours as needed for up to 7 days. Last time this was given: 5 mg on 05/16/2018 1:37 PM vitamin with folic acid 1 mg 60 mg iron-1 mg Tab Take 1 tablet by mouth once daily. Last time this MEDS HELD/DISCONTINUED: none BRIEF HOSPITAL COURSE: The following content has been copied and pasted from patient's discharge summary. HOSPITAL COURSE: Mr. Ramires sustained a fall resulting in rib fractures and scalp laceration. Scalp laceration was repaired, and rib fractures did not require surgery. He was seen by internal medicine for acute respiratory failure. ? ? CONSULTING TEAMS DURING HOSPITALIZATION: Internal Medicine ? PATIENT CONDITION AT DISCHARGE: Stable ? DISCHARGE DISPOSITION: Home/Self Care Lj Flynn RN, [facility] [phone] ? Allergies As of Date: 05/17/2018 (No Known Allergies) Date Reviewed: 05/16/2018 Reviewed by: Bartolo (Rn) JANIE Ortez - Fully Assessed Reason for Visit: Transition Of Care [4074] Cmt: hospital d/c 05/16 CHF, fall rib fx, scalp laceration Reason For Visit History Recorded Prescriptions as of 05/17/2018 Sig: CHOLECALCIFEROL (VITAMIN D3) * Taking 1000 IU 800 am and 800* OXYCODONE 5 MG TABLET Take 1 tablet by mouth every * VIT,CALCIUM 27-GOMEZ* Take 1 tablet by mouth once d* HYDROXYCHLOROQUINE 200 MG TAB* Take 1 tablet by mouth twice * LEVOTHYROXINE 25 MCG TABLET Take 1 tablet by mouth once d* OMEPRAZOLE 40 MG CAPSULE,MARÍA* Take 1 capsule by mouth once * FLUTICASONE 50 MCG/ACTUATION * Use 1 [place] in each nostril o* COMPOUNDED PRESCRIPTION Knee high support stockings .* ATORVASTATIN 40 MG TABLET Take 40 mg by mouth once wilian* CARVEDILOL 6.25 MG TABLET Take 6.25 mg by mouth twice d* WARFARIN 5 MG TABLET Take 5 mg by mouth daily as d* OXYGEN (HOME THERAPY) by Nasal Cannula route as dir* LOSARTAN 50 MG TABLET Take 50 mg by mouth once wilian* FUROSEMIDE 40 MG TABLET Take 40 mg by mouth twice raheem* COMPOUNDED PRESCRIPTION Please perform nocturnal puls* COMPOUNDED PRESCRIPTION Please perform nocturnal puls* ALBUTEROL SULFATE CONCENTRATE* Use 0.5 mL via nebulizer ever* COMPOUNDED PRESCRIPTION Please perform nocturnal oxim* COMPOUNDED PRESCRIPTION Please provide disability monika* COMPOUNDED PRESCRIPTION 1 Units four times daily as n* COMPOUNDED PRESCRIPTION Nebulizer, Mask, AND O2 Tubing.* BUDESONIDE-FORMOTEROL HFA 160* Inhale 2 Puffs as instructed * ALBUTEROL SULFATE HFA 90 MCG/* Inhale 2 Puffs as instructed * ACLIDINIUM BROMIDE 400 MCG/AC* Inhale 1 Inhalation as instru* ASPIRIN 81 MG TABLET,DELAYED * Take 1 tablet by mouth once d* COMPOUNDED PRESCRIPTION 2L of O2 at night. Length of* COMPOUNDED PRESCRIPTION Please enroll in pulmonary re* Problem List As Of Date 05/17/2018 Noted Resolved DYSMETABOLIC SYNDROME X [E88.81] INVALID FOR* OBST CHRON BRONCHITIS WITH EXAC [J44.1] INVALID FOR* Tobacco use disorder [F17.200] INVALID FOR*01/09/2016 Obstructive chronic bronchitis [J44.9] INVALID FOR* Arthritis of hand, 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] INVALID FOR* Psoriatic arthritis (HCC) [L40.50] INVALID FOR* Psoriasis [L40.9] INVALID FOR* Benign non-nodular prostatic hyperplasia with l*INVALID FOR* Encounter for long-term (current) use of medica*INVALID FOR* Hypothyroidism [E03.9] INVALID FOR* Venous stasis dermatitis of right lower extremi*INVALID FOR* 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] INVALID FOR* CHF (congestive heart failure) (HCC) [I50.9] Cardiomyopathy (HCC) [I42.9] ICD (implantable cardioverter-defibrillator) in* Moderate to severe pulmonary hypertension (HCC)*INVALID FOR* Anemia [D64.9] 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 *INVALID 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* Gastroesophageal reflux disease [K21.9] INVALID FOR* Heavy alcohol use [Z78.9] INVALID FOR* Right rib fracture [S22.31XA] INVALID FOR* Encounter Status:Closed by LJ FLYNN on 05/17/18 CNDS Observed: 05/16/2018 Status: COMPLETED Source: [facility] 2:37 PM CLINIC OTHER CAMPUS REPOSITORY O ID: [id number] Author: Dhruv Cruz Service: General Surgery Author Type: Physician Type: Discharge Summaries Filed: 05/16/2018 2:56 PM Note Text: DISCHARGE SUMMARY PATIENT NAME: Jignesh Ramires ADMISSION DATE: 05/13/2018 DISCHARGE DATE: 05/16/2018 ATTENDING PHYSICIAN: Lashawn Echeverria Code Status: Not on file Highest Readmission Risk Score: 26 The 30 day readmissions risk score is derived from an internally validated risk model which evaluates patient level characteristics, utilization history, medication orders and lab results up until the day of discharge. Patients with a score of 40 or above are considered highest risk for readmission. Specific patient level drivers will be listed at the bottom of the summary. REASON FOR HOSPITALIZATION: Traumatic Fall DIAGNOSIS: Active Problems: CHF (congestive heart failure) (HCC) ICD (implantable cardioverter-defibrillator) in place Heavy alcohol use Right rib fracture Resolved Problems: * No resolved hospital problems. * OPERATIONS DURING HOSPITALIZATION: None PROCEDURES DURING HOSPITALIZATION: No procedures performed HOSPITAL COURSE: Mr. Ramires sustained a fall resulting in rib fractures and scalp laceration. Scalp laceration was repaired, and rib fractures did not require surgery. He was seen by internal medicine for acute respiratory failure. CONSULTING TEAMS DURING HOSPITALIZATION: Internal Medicine PATIENT CONDITION AT DISCHARGE: Stable DISCHARGE DISPOSITION: Home/Self Care Discharge Physical Exam: VITAL SIGNS: BP 151/70 Pulse 88 Temp 36 ?C (96.8 ?F) (Temporal Artery) Resp 16 Ht 165.1 cm (5' 5) Wt 73.9 kg (162 lb 14.4 oz) SpO2 96% BMI 27.11 kg/m? GENERAL: No distress, Alert NEURO: AANDOx3, CN II-XII grossly intact HEENT: normocephalic, atraumatic LUNGS: Unlabored breathing CARDIAC: Regular rate and rhythm as above EXTREMITIES: SNEED, No deformities, No edema SKIN: Skin color, texture, turgor normal, No rashes or lesions DIET: Resume pre-hospital diet ACTIVITY: Resume pre-hospital activity WOUND/SURGICAL SITE CARE: Posterior scalp laceration repaired with meenakshi. Have removed by primary care doctor 05-20-18 ALLERGIES No Known Allergies DISCHARGE MEDICATION: Current Discharge Medication List START taking these medications oxyCODONE IR (ROXICODONE) 5 mg Take 5 mg by mouth every 6 hours as needed. Earliest Fill Date: 05/16/18 Qty: 15 tablet Refills: 0 Associated Diagnoses:Closed fracture of multiple ribs of right side, initial encounter vitamin with folic acid 1 mg 1 tablet Take 1 tablet by mouth once daily. Qty: 30 tablet Refills: 0 CONTINUE these medications which have NOT CHANGED guaiFENesin 1,200 mg Take 1,200 mg by mouth twice daily. predniSONE (DELTASONE) 10 mg Take 10 mg by mouth as directed. Take 4 tablets (40 mg) daily for 3 days, then 3 tablets (30 mg) daily for 3 days, then 2 tablets (20) daily for 3 days, then 1 tablet (10 mg) daily for 3 days. hydroxychloroquine (PLAQUENIL) 200 mg Take 200 mg by mouth twice daily. Qty: 180 tablet Refills: 2 Associated Diagnoses:Psoriatic arthritis (HCC) levothyroxine (SYNTHROID) 25 mcg Take 25 mcg by mouth once daily. Take on empty stomach. For Thyroid Qty: 90 tablet Refills: 3 Associated Diagnoses:Hypothyroidism, unspecified type Omeprazole 40 mg Take 40 mg by mouth once daily. Qty: 90 capsule Refills: 3 Associated Diagnoses:Gastroesophageal reflux disease, esophagitis presence not specified ferrous sulfate 325 mg Take 325 mg by mouth twice daily with meals. Qty: 60 tablet Refills: 5 Associated Diagnoses:Anemia, unspecified type fluticasone (FLONASE) 1 [place] Use 1 [place] in each nostril once daily. atorvastatin (LIPITOR) 40 mg Take 40 mg by mouth once daily. carvedilol (COREG) 6.25 mg Take 6.25 mg by mouth twice daily with meals. warfarin (COUMADIN) 5 mg Take 5 mg by mouth daily as directed. OXYGEN, HOME THERAPY, by Nasal Cannula route as directed. 3L under exertion and 2L at rest 09/03. losartan (COZAAR) 50 mg Take 50 mg by mouth once daily. furosemide (LASIX) 40 mg Take 40 mg by mouth twice daily. albuterol (PROVENTIL) 2.5 mg Use 2.5 mg via nebulizer every 6 hours as needed. Qty: 30 Vial Refills: 0 Associated Diagnoses:Acute bronchitis with chronic obstructive pulmonary disease (COPD) ([facility]) cholecalciferol (VITAMIN D) 1,000 unit tab tablet Taking 1600 IU 800 am and 800 pm budesonide-formoterol (SYMBICORT) 2 Puffs Inhale 2 Puffs as instructed twice daily. Qty: 3 Inhaler Refills: 3 albuterol HFA (PROVENTIL HFA, VENTOLIN HFA) 2 Puffs Inhale 2 Puffs as instructed every 4 hours as needed. Qty: 1 Inhaler Refills: 5 aclidinium bromide (TUDORZA PRESSAIR) 1 Inhalation Inhale 1 Inhalation as instructed twice daily. Qty: 3 Each Refills: 3 aspirin, enteric coated (ASPIRIN, ENTERIC COATED) 81 mg Take 81 mg by mouth once daily. Refills: 0 multivitamin 1 tablet Take 1 tablet by mouth once daily. Refills: 0 !! COMPOUNDED PRESCRIPTION Knee high support stockings . 20-30 weight DIAGNOSIS: Venous insufficency I87.2 Qty: 6 Each Refills: 4 Associated Diagnoses:Venous insufficiency (chronic) (peripheral); Venous stasis ulcer of ankle, right (HCC) !! COMPOUNDED PRESCRIPTION Please perform nocturnal pulse oximetry on 6 lpm O2 nasal cannula. Please fax results to [phone]. Diagnosis: Very severe COPD J44.9 Qty: 1 Each Refills: 0 Associated Diagnoses:COPD, very severe (HCC) !! COMPOUNDED PRESCRIPTION Please perform nocturnal pulse oximetry on 4 lpm O2 NC. Dx= Nocturnal Hypoxemia G47.34. Please fax results to [phone]. Qty: 1 Device Refills: 0 Associated Diagnoses:Nocturnal hypoxemia !! COMPOUNDED PRESCRIPTION Please perform nocturnal oximetry on 2 lpm O2 NC. DX: Chronic hypoxemic respiratory failure Qty: 1 Device Refills: 0 Associated Diagnoses:COPD with exacerbation (HCC); Chronic hypoxemic respiratory failure (HCC) !! COMPOUNDED PRESCRIPTION Please provide disability placard. 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 End date: 07/17/2021 Qty: 1 Device Refills: 0 Associated Diagnoses:COPD with exacerbation (HCC); Chronic hypoxemic respiratory failure (HCC) !! COMPOUNDED PRESCRIPTION 1 Units 1 Units four times daily as needed. NEBULIZER FOR HOME USE. DX: COPD exacerbation Qty: 1 Device Refills: 0 Associated Diagnoses:COPD with exacerbation (HCC) !! COMPOUNDED PRESCRIPTION Nebulizer, Mask, AND O2 Tubing. Use as directed. Qty: 1 Each Refills: 1 Associated Diagnoses:COPD with exacerbation (HCC) !! COMPOUNDED PRESCRIPTION 2L of O2 at night. Length of need 99 months. Dx: COPD. Qty: 1 Each Refills: 0 !! COMPOUNDED PRESCRIPTION Please enroll in pulmonary rehab for severe obstructive airway disease. Adjust O2 prn spo2 >90%. Pre and post rehabilitation 6 minute walk test or exercise stress test to develop the exercise prescription and to monitor outcomes. Qty: 1 Each Refills: 0 Associated Diagnoses:COPD (chronic obstructive pulmonary disease) (HCC); Oxygen desaturation !! - Potential duplicate medications found. Please discuss with provider. FUTURE APPOINTMENTS: Follow Up with PCP: Jose Maurer III MD The patient's risk for 30-day readmission is determined using the following contributing factors: Pt variables contributing to increased readmission risk: 29 Most Recent BUN Result 29 Active Medication Orders 7.9 First Resulted Calcium During Admission 1 Previous ED Visit (6 mos.)? 1 Number of Previous ED Visits (6 mos.) 1 Insurance - Medicare 1 Discharge Disposition - Home 1 History of Anemia 1 Active Anticoagulant TIME OF CARE: Discharge Management: I personally spent greater than 30 minutes involved in the discharge management of this patient. SIGNATURE: Veronica Chun MD PAGER/CONTACT #: [phone] DATE: May 16, 2018 TIME: 2:37 PM Attending Note I evaluated the patient and personally participated in the ramírez components. I agree with the resident's findings and plan as documented and have discussed the case and management of the patient's care with the resident. The patient is appropriate for discharge. Dhruv Cruz MD Department of General Surgery Section of Trauma, Surgery Critical Care, and Acute Care Surgery CONSULT PROG Observed: 05/16/2018 Status: COMPLETED Source: [place] 8:40 AM CLINIC OTHER CAMPUS REPOSITORY O ID: [id number] Author: Gorge Stiles Service: Hospital Medicine Author Type: Physician Type: Consult Progress Note Filed: 05/16/2018 8:49 AM Note Text: DEPARTMENT OF HOSPITAL MEDICINE PROGRESS NOTE SERVICE DATE: 05/16/2018 SERVICE TIME: 8:41 AM Hospital Medicine/Primary Attending: Gorge Stiles MD NIGHT AND WEEKEND COVERAGE: After 7pm please page [phone] CHIEF COMPLAINT: Chest pain SUBJECTIVE: Feels OK. No SOB at rest. Still on 4 liters NC at rest. No attempts as yet to wean. Uses 3 liters with ambulation and at hs. No cough. No N/V. OBJECTIVE: PHYSICAL EXAM: BP 164/75 Pulse 80 Temp (Src) 96.8 (Temporal Artery) Resp 16 Ht 5' 5 (1.65m) Wt 155 lb (70.3kg) SpO2 91% BMI 25.79 kg/(m2). General - AANDOx3, NAD, Calm CV - RRR S1 S2, No M/R/G RESP - diminished bilaterally. No wheezes, rales, rhonchi. No retractions. ABD - soft, NT, ND +BS EXT - no gross joint deformity, no clubbing, cyanosis, edema MEDICATIONS: Current hospital medications: enoxaparin 30 mg injection (LOVENOX) 30 mg SUBCUTANEOUS q 12 HR hydrALAZINE 20 mg tab(s) (APRESOLINE) 20 mg ORAL q 6 H PRN ketorolac 15 mg injection (TORADOL) 15 mg INTRAVENOUS q 8 H acetaminophen 975 mg tab(s) (TYLENOL) 975 mg ORAL QID senna-docusate 8.6-50 mg 1 tablet (SENNA-S) 1 tablet ORAL BID LORazepam 2 mg (ATIVAN) 2 mg ORAL q 1 H PRN LORazepam 2 mg injection (ATIVAN) 2 mg INTRAVENOUS q 1 H PRN LORazepam 4 mg (ATIVAN) 4 mg ORAL q 1 H PRN LORazepam 4 mg injection (ATIVAN) 4 mg INTRAVENOUS q 1 H PRN vitamin with folic acid 1 mg 1 tablet 1 tablet ORAL DAILY thiamine 200 mg in NaCl 0.9% 50 mL 200 mg INTRAVENOUS q 8 H losartan 50 mg tab(s) (COZAAR) 50 mg ORAL DAILY predniSONE 10 mg tab(s) (DELTASONE) 10 mg ORAL DAILY warfarin 5 mg tab(s) (COUMADIN) 5 mg ORAL DAILY - WARFARIN hydroxychloroquine 200 mg (PLAQUENIL) 200 mg ORAL BID ferrous sulfate 325 mg tab(s) 325 mg ORAL BID w MEALS furosemide 40 mg tab(s) (LASIX) 40 mg ORAL BID fluticasone-vilanterol 100-25 mcg/dose 1 Inhalation (BREO ELLIPTA) 1 Inhalation INHALATION DAILY carvedilol 6.25 mg tab(s) (COREG) 6.25 mg ORAL BID w MEALS tiotropium 2.5 mcg/actuation 2 Puff (SPIRIVA RESPIMAT) 2 Puff INHALATION DAILY atorvastatin 40 mg tab(s) (LIPITOR) 40 mg ORAL AT BEDTIME aspirin, enteric coated 81 mg tab(s) 81 mg ORAL DAILY pantoprazole DR 40 mg tab(s) (PROTONIX) 40 mg ORAL DAILY levothyroxine 25 mcg tab(s) (SYNTHROID) 25 mcg ORAL DAILY (6 AM) morphine 2-4 mg injection 2-4 mg INTRAVENOUS q 3 H PRN 0.9% NaCl 2-10 mL 2-10 mL INTRAVENOUS q 12 H oxyCODONE IR 5 mg tab(s) (ROXICODONE) 5 mg ORAL q 6 H PRN ondansetron (PF) 4 mg injection (ZOFRAN) 4 mg INTRAVENOUS q 6 H PRN bacitracin-polymyxin B 500-10,000 unit/gram (POLYSPORIN) TOPICAL TID DATA: Diagnostic tests reviewed for today's visit: CBC: Recent Labs 05/16/18 0500 WBC 10.93* RBC 3.25* HB 10.7* HCT 31.6* PLT 144 MCV 97.2* MCH 32.9* MPV 9.5 RDW 13.7 Coags: Recent Labs 05/16/18 0500 INR 1.50* CMP: Recent Labs 05/16/18 0500 NA 127* K 3.8 CHLOR 88* CO2 34* BUN 29* CREAT 0.99 GLUC 115* CA 9.3 ANION 9 Assessment/Plan Active Problems: CHF (congestive heart failure) (HCC) POA: Yes Assessment AND Plan: euvolemic at this time. Continue usual home meds. ? ICD (implantable cardioverter-defibrillator) in place POA: Yes Assessment AND Plan: consult to EP if any problems with device. ? Heavy alcohol use POA: Yes Assessment AND Plan: was intoxicated at time of admission. Advised to stop consumption of alcohol. Does not seem ready to do so yet. ? Right rib fracture POA: Yes Assessment AND Plan: multiple. IS encouraged Q1h. ? Acute hypoxic respiratory failure: try weaning O2 at rest. ? Hyponatremia: stable. Trend. ? Anemia due to acute blood loss: hgb stable. VTE Prophylaxis: Lovenox 30mg Sub Q 12 Disposition: Home Plan of care discussed with: Patient SIGNATURE: Gorge Stiles MD PATIENT NAME: Jignesh Ramires DATE: May 16, 2018 TIME: 8:41 AM PAGER/CONTACT #: [phone] PROGRESS Observed: 05/16/2018 Status: COMPLETED Source: [place] 6:27 AM CLINIC OTHER CAMPUS REPOSITORY O ID: [id number] Author: Corie Kline Service: General Surgery Author Type: Resident Type: Progress Notes Filed: 05/16/2018 7:27 AM Note Text: General Surgery Progress Note SERVICE DATE: 05/16/2018 SUBJECTIVE: No acute events o/n. Tolerating po well. Utilizing incentive spirometer/ resp therapy. Pain controlled. Tolerating diet DIET REGULAR OBJECTIVE: Vitals: Temp (24hrs), Av.3 ?C (97.4 ?F), Min:36.3 ?C (97.3 ?F), Max:36.4 ?C (97.5 ?F) BP 134/58 Pulse 84 Temp 36.3 ?C (97.3 ?F) (Temporal Artery) Resp 16 Ht 165.1 cm (5' 5) Wt 70.3 kg (155 lb) SpO2 98% BMI 25.79 kg/m? O2 Therapy: Nasal Cannula IANDO: Date 05/15/18 07 - 05/16/18 0605/16/18 07 - 10/01/18 0659 Shift 4141-0166 4326-0228 0137-4692 24 Hour Total 3214-0903 4892-5814 6341-1050 24 Hour Total I N T A K E PO 840 840 PO 840 840 Shift Total 840 840 O U T P U T Urine 560 2 562 Void (ml) 560 560 Urine Not Saved 2 2 Shift Total 560 2 562 Weight (kg) 70.3 70.3 70.3 70.3 70.3 70.3 70.3 70.3 MEDICATIONS Current Facility-Administered Medications: hydrALAZINE 20 mg tab(s) (APRESOLINE) 20 mg ORAL q 6 H PRN ketorolac 15 mg injection (TORADOL) 15 mg INTRAVENOUS q 8 H acetaminophen 975 mg tab(s) (TYLENOL) 975 mg ORAL QID senna-docusate 8.6-50 mg 1 tablet (SENNA-S) 1 tablet ORAL BID LORazepam 2 mg (ATIVAN) 2 mg ORAL q 1 H PRN Or LORazepam 2 mg injection (ATIVAN) 2 mg INTRAVENOUS q 1 H PRN LORazepam 4 mg (ATIVAN) 4 mg ORAL q 1 H PRN Or LORazepam 4 mg injection (ATIVAN) 4 mg INTRAVENOUS q 1 H PRN vitamin with folic acid 1 mg 1 tablet 1 tablet ORAL DAILY folic acid 1 mg tab(s) 1 mg ORAL DAILY thiamine 200 mg in NaCl 0.9% 50 mL 200 mg INTRAVENOUS q 8 H losartan 50 mg tab(s) (COZAAR) 50 mg ORAL DAILY predniSONE 10 mg tab(s) (DELTASONE) 10 mg ORAL DAILY warfarin 5 mg tab(s) (COUMADIN) 5 mg ORAL DAILY - WARFARIN hydroxychloroquine 200 mg (PLAQUENIL) 200 mg ORAL BID ferrous sulfate 325 mg tab(s) 325 mg ORAL BID w MEALS furosemide 40 mg tab(s) (LASIX) 40 mg ORAL BID fluticasone-vilanterol 100-25 mcg/dose 1 Inhalation (BREO ELLIPTA) 1 Inhalation INHALATION DAILY carvedilol 6.25 mg tab(s) (COREG) 6.25 mg ORAL BID w MEALS tiotropium 2.5 mcg/actuation 2 Puff (SPIRIVA RESPIMAT) 2 Puff INHALATION DAILY atorvastatin 40 mg tab(s) (LIPITOR) 40 mg ORAL AT BEDTIME aspirin, enteric coated 81 mg tab(s) 81 mg ORAL DAILY pantoprazole DR 40 mg tab(s) (PROTONIX) 40 mg ORAL DAILY levothyroxine 25 mcg tab(s) (SYNTHROID) 25 mcg ORAL DAILY (6 AM) morphine 2-4 mg injection 2-4 mg INTRAVENOUS q 3 H PRN 0.9% NaCl 2-10 mL 2-10 mL INTRAVENOUS q 12 H oxyCODONE IR 5 mg tab(s) (ROXICODONE) 5 mg ORAL q 6 H PRN ondansetron (PF) 4 mg injection (ZOFRAN) 4 mg INTRAVENOUS q 6 H PRN bacitracin-polymyxin B 500-10,000 unit/gram (POLYSPORIN) TOPICAL TID Labs: Recent Labs 05/16/18 0500 05/15/18 0312 05/14/18 0610 05/14/18 0430 NA 127* 128* -- 127* K 3.8 3.5 -- 4.1 CHLOR 88* 86* -- 88* CO2 34* 33* -- 27 BUN 29* 28* -- 16 CREAT 0.99 1.10 -- 0.51* GLUC 115* 104* -- 86 ANION 9 13 -- 16 CA 9.3 8.8 -- 7.9* MG -- -- 1.2* -- P -- -- -- 4.0 WBC 10.93* 10.91* -- 12.76* HB 10.7* 10.1* -- 10.2* HCT 31.6* 29.9* -- 29.2* PLT 144 146 -- 168 INR 1.50* 1.58* -- 1.34* PH -- -- -- 7.379 PCO2 -- -- -- 52.3* PO2 -- -- -- 83.0* BE -- -- -- 4.2 Exam: GENERAL: No distress, Alert NEURO: AANDOx3, CN II-XII grossly intact HEENT: normocephalic, atraumatic LUNGS: Unlabored breathing CARDIAC: Regular rate and rhythm as above EXTREMITIES: SNEED, No deformities, No edema SKIN: Skin color, texture, turgor normal, No rashes or lesions ASSESSMENT AND PLAN: Active Hospital Problems Diagnosis Date Noted - Right rib fracture 05/13/2018 - Heavy alcohol use 11/16/2017 - ICD (implantable cardioverter-defibrillator) in place - CHF (congestive heart failure) (HCC) 67 year old male s/p fall down stairs with R 4-8th rib fxs ? - DIET REGULAR - DVT ppx: SCD, home warfarin- monitor INR, subtherapeutic, BID LVX - PT/OT - home - d/c meenakshi to post scalp lac 05/20 - home meds, PRN antihypertensive - IS, home O2, nocturnal CPAP -Medicine recs: stable on 4 L NC, can use home O2 during day until atelectasis improved, then switch back to pm use ? Trauma Service Pager: For questions or concerns Mon-Fri 6a-5p please page [phone]. After 5pm and on Weekends and Holidays, please page [phone] if in ICU or [phone] if on RNF. SIGNATURE: Corie Kline MD PATIENT NAME: Jignesh Ramires DATE: May 16, 2018 TIME: 6:27 AM Pager: [phone] Collected: 05/16/2018 Status: F Source: [facility] 5:00 AM [employer] SYSTEM REPOSITORY TYPE CODE TESTS RESULT OUT OF RANGE REFERENCE UNITS LAB GFRFN(LOINC >60mL/min/1.73m ) 2 eGFR >60 Result Comment: If the patient is , multiply the result by 1.210. Performed By: #### GFR #### [facility] [address] [place] [address] HEMOGRAM/DIFF Collected: 05/16/2018 Status: F Source: [facility] 5:00 AM HEALTH SYSTEM REPOSITORY TYPE CODE TESTS RESULT OUT OF REFERENCE UNITS RANGE LAB WBC(LOINC) 4.23-9.07 thou/cmm WBC High 10.93 LAB RBC(LOINC) 4.63-6.08 mil/cmm Low RBC 3.25 LAB HGB(LOINC) 13.7-17.5 g/dL Low Hgb 10.7 LAB HCT(LOINC) 40.1-51.0 % Low Hct 31.6 LAB MCV(LOINC) 83.2-95.6 fl MCV High 97.2 LAB MCH(LOINC) 25.7-32.2 pg MCH High 32.9 LAB MCHC(LOINC 32.3-36.5 % ) MCHC 33.9 LAB RDW(LOINC) 11.6-14.4 % RDW 13.7 LAB RDWSD(LOIN 36.1-45.8 fl C) RDW SD High 48.6 LAB PLT(LOINC) 141-365 thou/cmm Platelet 144 LAB MPV(LOINC) 8.7-12.0 fl MPV 9.5 LAB SEG(LOINC) % Seg Neutrophil 81.4 LAB IGRE(LOINC % ) Immature Grans 0.90 LAB LYMPH(LOIN % C) Lymphocyte 6.8 LAB MNO(LOINC) % Monocyte 10.5 LAB EOSIN(LOIN % C) Eosinophil 0.1 LAB BASO(LOINC % ) Basophil 0.3 LAB SEGN(LOINC 1.78-5.38 thou/cmm ) Abs. High Neut (ANC) 8.90 LAB IGAB(LOINC 0.00-0.05 thou/cmm ) Abs High Immature Grans 0.10 LAB LYMN(LOINC 0.84-2.85 thou/cmm ) Low Abs. Lymph 0.74 LAB MONON(LOIN 0.30-0.82 thou/cmm C) Abs. High [place] 1.15 LAB EOSN(LOINC 0.04-0.54 thou/cmm ) Low Abs. Eosin 0.01 LAB BASON(LOIN 0.01-0.08 thou/cmm C) Abs. Baso 0.03 Performed By: #### CBCD1 #### [place] [address] PROTIME Collected: 05/16/2018 Status: F Source: [facility] 5:00 AM HEALTH SYSTEM REPOSITORY TYPE CODE TESTS RESULT OUT OF REFERENCE UNITS RANGE LAB PTI(LOINC) 9.7-13.0 sec Prothrombin High Time 15.0 LAB INR(LOINC) 0.90-1.30 INR High 1.50 Result Comment: Note: Reference Range Change Vitamin K Antagonist (VKA) Therapeutic Range: INR 2 to 3 (Target INR of 2.5) Note: For patients treated with VKA drugs, such as warfarin, the [place] [employer] 2012 Guideline recommends a therapeutic INR range of 2 to 3 (target INR of 2.5). This recommendation includes high-risk patients with antiphospholipid syndrome with previous arterial or venous thromboembolism, current-generation mechanical or bioprosthetic aortic heart valve replacement. VKA Therapeutic Range for some Mechanical Valve Replacement: INR 2.5 to 3.5 (Target INR of 3) Note: Patients with mechanical aortic valve replacement and additional risk factors for thromboembolic events (atrial fibrillation, previous thromboembolism, LV dysfunction, hypercoagulable conditions) or an older generation mechanical AVR (i.e., ball in-Cage) or any mechanical MVR should have a INR therapeutic range of 2.5 to 3.5 target INR of 3). William GH, et al. Chest 2012; 141:7S-47S Aracelis RA et al. JACC 2017; 70: 252-289 Performed By: #### PT #### [place] [address] BASIC PANEL Collected: 05/16/2018 Status: F Source: [facility] 5:00 AM HEALTH SYSTEM REPOSITORY TYPE CODE TESTS RESULT OUT OF REFERENCE UNITS RANGE LAB NA(LOINC) 136-145 mEq/L Low Sodium Blood 127 LAB K(LOINC) 3.5-5.1 mEq/L Potassium Blood 3.8 LAB CL(LOINC) 98-107 mEq/L Low Chloride Blood 88 LAB CO2(LOINC) 21-32 mEq/L CO2 High Blood 34 LAB GLU(LOINC) 70-99 mg/dL Glucose High Blood 115 LAB BUN(LOINC) 7-18 mg/dL BUN High Blood 29 LAB CREA(LOINC 0.67-1.17 mg/dL ) Creatinine Blood 0.99 LAB CA(LOINC) 8.5-10.1 mg/dL Calcium Blood 9.3 LAB ANGAP(LOIN 8-16 C) Anion Gap 9 Performed By: #### P8 #### [place] [id number] NURSING PROG Observed: 05/15/2018 Status: COMPLETED Source: [place] 8:13 PM CLINIC OTHER CAMPUS REPOSITORY HNO ID: [id number] Author: Nedra (Rn) JANIE Gotti Service: Nursing Author Type: Registered Nurse Type: Nursing Progress Note Filed: 05/15/2018 8:13 PM Note Text: Pt scheduled to receive flu vaccine with [facility], states that his pharmacist and home salvage inspector said he should not take the vaccine until the end of May, after the completion of his current course of prednisone. Order d/c'd per surgery. CONSULT Observed: 05/15/2018 Status: COMPLETED Source: [place] 8:28 AM [facility] OTHER CAMPUS REPOSITORY HNO ID: [id number] Author: Gorge Stiles Service: Hospital Medicine Author Type: Physician Type: Consults Filed: 05/15/2018 8:42 AM Note Text: DEPARTMENT OF HOSPITAL MEDICINE INITIAL CONSULT SERVICE DATE: 05/15/2018 SERVICE TIME: 8:29 AM Primary Care Physician: Jose Maurer III MD NIGHT AND WEEKEND COVERAGE: From 7am - 7pm, please call Media Time Conseil After 7pm, please call cross cover pager #[phone] REASON FOR CONSULT: med management REQUESTING PHYSICIAN: Sabine Subjective CHIEF COMPLAINT: Chest pain HPI: This is a 67 year old male who presents with fall down stairs and subsequent rib fractures. Pt states he is slightly SOB due to the chest pain but it is improving. No significant cough. No N/V. Pt just transferred from SICU. PAST MEDICAL HISTORY Diagnosis Date - Acute and chronic respiratory failure with hypoxia (HCC) - Arthritis of hand, degenerative 02/02/2014 - Benign non-nodular prostatic hyperplasia with lower urinary tract symptoms 01/09/2016 - Cardiomyopathy (HCC) - CHF (congestive heart failure) (HCC) - Chronic obstructive pulmonary disease (COPD) (HCC) severe - Diverticulosis of colon (without mention of hemorrhage) - HTN (hypertension) - Hyperlipidemia - ICD (implantable cardioverter-defibrillator) in place - Internal hemorrhoids without mention of complication - Moderate to severe pulmonary hypertension (HCC) 04/01/2017 - NICM (nonischemic cardiomyopathy) (HCC) - Obstructive chronic bronchitis (HCC) 08/06/2010 - PMH - PAST MEDICAL HISTORY OF cystic acne - Psoriasis 02/02/2014 - Psoriatic arthritis (HCC) 02/02/2014 - Pulmonary HTN (HCC) - PVD (peripheral vascular disease) (HCC) - Snoring - SOB (shortness of breath) - Stage 3 severe COPD by GOLD classification (HCC) - Systolic CHF (HCC) PAST SURGICAL HISTORY Procedure Laterality Date - BASIC ICD SINGLE CHAMBER 01/13/2017 [facility] - COLONOSCOP W/ OR W/O [facility] SPEC 11/18/06 - COLONOSCOP W/ OR W/O [facility] SPEC 12/07/2014 Colonoscopy - ECHOCARDIOGRAM 08/28/2016 EF 20-25% - HEART CATHETERIZATION 08/27/2016 - PAST SURGICAL HISTORY OF cysts removed FAMILY HISTORY Problem Relation Age of Onset - Ischemic Heart Disease Mother - Cancer Father brain cancer - Diabetes Maternal Grandmother - Stroke Brother Social History Substance Use Topics - Smoking status: Former Smoker Packs/day: 0.50 Years: 30.00 Types: Cigarettes Quit date: 08/21/2011 - Smokeless tobacco: Never Used - Alcohol use Yes Comment: drinks 3 beer daily MEDICATIONS: Reviewed Prescriptions Prior to Admission: guaiFENesin (MUCINEX) 1,200 mg Ta12 Take 1,200 mg by mouth twice daily. Disp: Rfl: predniSONE (DELTASONE) 10 mg tablet Take 10 mg by mouth as directed. Take 4 tablets (40 mg) daily for 3 days, then 3 tablets (30 mg) daily for 3 days, then 2 tablets (20) daily for 3 days, then 1 tablet (10 mg) daily for 3 days. Disp: Rfl: hydroxychloroquine (PLAQUENIL) 200 mg tablet Take 1 tablet by mouth twice daily. Disp: 180 tablet Rfl: 2 levothyroxine (LEVOXYL) 25 mcg tablet Take 1 tablet by mouth once daily. Take on empty stomach. For Thyroid Disp: 90 tablet Rfl: 3 Omeprazole 40 mg capsule Take 1 capsule by mouth once daily. Disp: 90 capsule Rfl: 3 ferrous sulfate 325 mg (65 mg iron) tablet Take 1 tablet by mouth twice daily with meals. Disp: 60 tablet Rfl: 5 fluticasone (FLONASE) 50 mcg/actuation nasal spray Use 1 [place] in each nostril once daily. Disp: Rfl: atorvastatin (LIPITOR) 40 mg tablet Take 40 mg by mouth once daily. Disp: Rfl: carvedilol (COREG) 6.25 mg tablet Take 6.25 mg by mouth twice daily with meals. Disp: Rfl: warfarin (COUMADIN) 5 mg tablet Take 5 mg by mouth daily as directed. Disp: Rfl: OXYGEN, HOME THERAPY, by Nasal Cannula route as directed. 3L under exertion and 2L at rest 24/. Disp: Rfl: losartan (COZAAR) 50 mg tablet Take 50 mg by mouth once daily. Disp: Rfl: furosemide (LASIX) 40 mg tablet Take 40 mg by mouth twice daily. Disp: Rfl: albuterol (PROVENTIL) 2.5 mg/0.5 mL nebulizer solution Use 0.5 mL via nebulizer every 6 hours as needed. Disp: 30 Vial Rfl: 0 cholecalciferol (VITAMIN D) 1,000 unit tab tablet Taking 1600 IU 800 am and 800 pm Disp: Rfl: budesonide-formoterol (SYMBICORT) 160-4.5 mcg/actuation inhaler Inhale 2 Puffs as instructed twice daily. Disp: 3 Inhaler Rfl: 3 albuterol HFA (PROAIR HFA) 90 mcg/actuation inhaler Inhale 2 Puffs as instructed every 4 hours as needed. Disp: 1 Inhaler Rfl: 5 aclidinium bromide (TUDORZA PRESSAIR) 400 mcg/actuation aepb Inhale 1 Inhalation as instructed twice daily. Disp: 3 Each Rfl: 3 aspirin, enteric coated (ASPIRIN, ENTERIC COATED) 81 mg EC tablet Take 1 tablet by mouth once daily. Disp: Rfl: 0 multivitamin tablet Take 1 tablet by mouth once daily. Disp: Rfl: 0 Past Week at Unknown COMPOUNDED PRESCRIPTION Knee high support stockings . 20-30 weightDIAGNOSIS: Venous insufficency I87.2 Disp: 6 Each Rfl: 4 COMPOUNDED PRESCRIPTION Please perform nocturnal pulse oximetry on 6 lpm O2 nasal cannula. Please fax results to [phone]. Diagnosis: Very severe COPD J44.9 Disp: 1 Each Rfl: 0 COMPOUNDED PRESCRIPTION Please perform nocturnal pulse oximetry on 4 lpm O2 NC. Dx= Nocturnal Hypoxemia G47.34. Please fax results to [phone]. Disp: 1 Device Rfl: 0 COMPOUNDED PRESCRIPTION Please perform nocturnal oximetry on 2 lpm O2 NC.DX: Chronic hypoxemic respiratory failure Disp: 1 Device Rfl: 0 COMPOUNDED PRESCRIPTION Please provide disability placard. 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 End date: 07/17/2021 Disp: 1 Device Rfl: 0 COMPOUNDED PRESCRIPTION 1 Units four times daily as needed. NEBULIZER FOR HOME USE. DX: COPD exacerbation Disp: 1 Device Rfl: 0 COMPOUNDED PRESCRIPTION Nebulizer, Mask, AND O2 Tubing. Use as directed. Disp: 1 Each Rfl: 1 COMPOUNDED PRESCRIPTION 2L of O2 at night. Length of need 99 months. Dx: COPD. Disp: 1 Each Rfl: 0 COMPOUNDED PRESCRIPTION Please enroll in pulmonary rehab for severe obstructive airway disease.Adjust O2 prn spo2 >90%.Pre and post rehabilitation 6 minute walk test or exercise stress test to develop the exercise prescription and to monitor outcomes. Disp: 1 Each Rfl: 0 Current hospital medications: hydrALAZINE 20 mg tab(s) (APRESOLINE) 20 mg ORAL q 6 H PRN influenza vaccine 180 mcg (Patients 65 years and older) (PF) (FLUZONE HIGH DOSE ) 0.5 mL INTRAMUSCULAR ONCE (IMMUNIZATION) ketorolac 15 mg injection (TORADOL) 15 mg INTRAVENOUS q 8 H acetaminophen 975 mg tab(s) (TYLENOL) 975 mg ORAL QID senna-docusate 8.6-50 mg 1 tablet (SENNA-S) 1 tablet ORAL BID LORazepam 2 mg (ATIVAN) 2 mg ORAL q 1 H PRN LORazepam 2 mg injection (ATIVAN) 2 mg INTRAVENOUS q 1 H PRN LORazepam 4 mg (ATIVAN) 4 mg ORAL q 1 H PRN LORazepam 4 mg injection (ATIVAN) 4 mg INTRAVENOUS q 1 H PRN vitamin with folic acid 1 mg 1 tablet 1 tablet ORAL DAILY folic acid 1 mg tab(s) 1 mg ORAL DAILY thiamine 200 mg in NaCl 0.9% 50 mL 200 mg INTRAVENOUS q 8 H losartan 50 mg tab(s) (COZAAR) 50 mg ORAL DAILY predniSONE 10 mg tab(s) (DELTASONE) 10 mg ORAL DAILY warfarin 5 mg tab(s) (COUMADIN) 5 mg ORAL DAILY - WARFARIN hydroxychloroquine 200 mg (PLAQUENIL) 200 mg ORAL BID ferrous sulfate 325 mg tab(s) 325 mg ORAL BID w MEALS furosemide 40 mg tab(s) (LASIX) 40 mg ORAL BID fluticasone-vilanterol 100-25 mcg/dose 1 Inhalation (BREO ELLIPTA) 1 Inhalation INHALATION DAILY carvedilol 6.25 mg tab(s) (COREG) 6.25 mg ORAL BID w MEALS tiotropium 2.5 mcg/actuation 2 Puff (SPIRIVA RESPIMAT) 2 Puff INHALATION DAILY atorvastatin 40 mg tab(s) (LIPITOR) 40 mg ORAL AT BEDTIME aspirin, enteric coated 81 mg tab(s) 81 mg ORAL DAILY pantoprazole DR 40 mg tab(s) (PROTONIX) 40 mg ORAL DAILY levothyroxine 25 mcg tab(s) (SYNTHROID) 25 mcg ORAL DAILY (6 AM) morphine 2-4 mg injection 2-4 mg INTRAVENOUS q 3 H PRN 0.9% NaCl 2-10 mL 2-10 mL INTRAVENOUS q 12 H oxyCODONE IR 5 mg tab(s) (ROXICODONE) 5 mg ORAL q 6 H PRN ondansetron (PF) 4 mg injection (ZOFRAN) 4 mg INTRAVENOUS q 6 H PRN bacitracin-polymyxin B 500-10,000 unit/gram (POLYSPORIN) TOPICAL TID . ALLERGIES No Known Allergies REVIEW OF SYSTEMS: All systems reviewed, pertinent negatives and positives located in the HPI, all else is negative. Objective PHYSICAL EXAM: BP 143/61 Pulse 93 Temp (Src) 97.5 (Temporal Artery) Resp 16 Ht 5' 5 (1.65m) Wt 155 lb (70.3kg) SpO2 95% BMI 25.79 kg/(m2). Physical Exam Performed: GENERAL: Well appearing, alert, in no acute distress, well- hydrated, well nourished. SKIN: Skin color, texture, turgor normal, no suspicious rashes or lesions HEAD: Normocephalic, atraumatic EYES: Anicteric sclera. Pupils are equally round and reactive to light. Extraocular movements are intact. EARS: External ears normal, canals clear NOSE/SINUSES: Nares normal, septum midline, mucosa normal, no drainage or sinus tenderness OROPHARYNX: Lips, mucosa, and tongue normal, teeth and gums normal, oropharynx normal NECK: Supple, no adenopathy; thyroid symmetric, normal size, no bruits LUNGS: Clear to auscultation with no wheezes, rales or rhonchi. No retractions. Diminished breath sounds bilaterally. HEART: RRR without murmur, gallop, or rubs. No ectopy ABDOMEN: Normal abdominal exam, Abdomen soft, non-tender. Bowel sounds normal. No masses, organomegaly EXTREMITIES: No deformities, edema, skin discoloration, clubbing or cyanosis. Good capillary refill. MUSCULOSKELETAL: No joint swelling, deformity, or tenderness PULSES: Normal Lines, Drains, and Airways Line [facility] 05/13/182144 Admission to [facility] Short Right Antecubital 20 Gauge 1 day [facility] 05/13/182145 Admission to [facility] Short Left Antecubital 18 Gauge 1 day DATA: Diagnostic tests reviewed for today's visit: Most recent labs and imaging results. Impression/Recommendations Active Problems: CHF (congestive heart failure) ([facility]) POA: Yes Assessment AND Plan: euvolemic at this time. Continue usual home meds. ICD (implantable cardioverter-defibrillator) in place POA: Yes Assessment AND Plan: consult to EP if any problems with device. Heavy alcohol use POA: Yes Assessment AND Plan: was intoxicated at time of admission. Advised to stop consumption of alcohol. Does not seem ready to do so yet. Right rib fracture POA: Yes Assessment AND Plan: multiple. IS encouraged Q1h. Acute hypoxic respiratory failure: stable on 4 liters NC. Has O2 at home which he uses at night. Should be able to use during day as well until atelectasis resolves. Hyponatremia: improving. Trend. Anemia due to acute blood loss: hgb stable. Resolved Problems: * No resolved hospital problems. * VTE PROPHYLAXIS: Patient is already anti-coagulated. Disposition: Home Plan of care discussed with: Patient SIGNATURE: Gorge Stiles MD PATIENT NAME: Jignesh Ramires DATE: May 15, 2018 TIME: 8:29 AM PAGER/CONTACT #: [phone] PROGRESS Observed: 05/15/2018 Status: COMPLETED Source: [place] 6:52 AM CLINIC OTHER CAMPUS REPOSITORY O ID: [id number] Author: Dhruv Cruz Service: General Surgery Author Type: Physician Type: Progress Notes Filed: 05/15/2018 6:02 PM Note Text: Trauma Surgery Progress Note SERVICE DATE: 05/15/2018 Trauma Service Pager: For questions or concerns Mon-Fri 6a-5p please page [phone]. After 5pm and on Weekends and Holidays, please page [phone] if in ICU or [phone] if on RNF. SUBJECTIVE: NAEON. Feeling well this morning. Using IS several times a day. Spent part of the night sleeping in the chair. Ambulating without difficulty. Tolerating diet DIET REGULAR Nausea No Emesis No Pain Controlled Yes Ambulating Yes OBJECTIVE: Vitals: Temp (24hrs), Av.7 ?C (98 ?F), Min:36.4 ?C (97.5 ?F), Max:37 ?C (98.6 ?F) BP 172/80 Pulse 72 Temp 37 ?C (98.6 ?F) (Temporal Artery) Resp 16 Ht 165.1 cm (5' 5) Wt 70.3 kg (155 lb) SpO2 98% BMI 25.79 kg/m? O2 Therapy: Nasal Cannula IANDO: Date 05/14/18699 - 05/15/1865805/15/18699 - 05/16/18 0659 Shift 6859-3701 2905-4603 9708-8612 24 Hour Total 9976-1776 7873-5182 6406-8302 24 Hour Total I N T A K E Shift Total O U T P U T Urine 100 300 325 725 Void (ml) 300 325 625 Tube Output ([REMOVED] Indwelling Urinary Catheter 05/14/18 0016 Hoang 05/14/18 0932) 100 100 Shift Total 100 300 325 725 Weight (kg) 72.1 70.3 70.3 70.3 70.3 70.3 70.3 70.3 MEDICATIONS Current Facility-Administered Medications: hydrALAZINE 20 mg tab(s) (APRESOLINE) 20 mg ORAL q 6 H PRN influenza vaccine 180 mcg (Patients 65 years and older) (PF) (FLUZONE HIGH DOSE ) 0.5 mL INTRAMUSCULAR ONCE (IMMUNIZATION) ketorolac 15 mg injection (TORADOL) 15 mg INTRAVENOUS q 8 H acetaminophen 975 mg tab(s) (TYLENOL) 975 mg ORAL QID senna-docusate 8.6-50 mg 1 tablet (SENNA-S) 1 tablet ORAL BID LORazepam 2 mg (ATIVAN) 2 mg ORAL q 1 H PRN Or LORazepam 2 mg injection (ATIVAN) 2 mg INTRAVENOUS q 1 H PRN LORazepam 4 mg (ATIVAN) 4 mg ORAL q 1 H PRN Or LORazepam 4 mg injection (ATIVAN) 4 mg INTRAVENOUS q 1 H PRN vitamin with folic acid 1 mg 1 tablet 1 tablet ORAL DAILY folic acid 1 mg tab(s) 1 mg ORAL DAILY thiamine 200 mg in NaCl 0.9% 50 mL 200 mg INTRAVENOUS q 8 H losartan 50 mg tab(s) (COZAAR) 50 mg ORAL DAILY predniSONE 10 mg tab(s) (DELTASONE) 10 mg ORAL DAILY warfarin 5 mg tab(s) (COUMADIN) 5 mg ORAL DAILY - WARFARIN hydroxychloroquine 200 mg (PLAQUENIL) 200 mg ORAL BID ferrous sulfate 325 mg tab(s) 325 mg ORAL BID w MEALS furosemide 40 mg tab(s) (LASIX) 40 mg ORAL BID fluticasone-vilanterol 100-25 mcg/dose 1 Inhalation (BREO ELLIPTA) 1 Inhalation INHALATION DAILY carvedilol 6.25 mg tab(s) (COREG) 6.25 mg ORAL BID w MEALS tiotropium 2.5 mcg/actuation 2 Puff (SPIRIVA RESPIMAT) 2 Puff INHALATION DAILY atorvastatin 40 mg tab(s) (LIPITOR) 40 mg ORAL AT BEDTIME aspirin, enteric coated 81 mg tab(s) 81 mg ORAL DAILY pantoprazole DR 40 mg tab(s) (PROTONIX) 40 mg ORAL DAILY levothyroxine 25 mcg tab(s) (SYNTHROID) 25 mcg ORAL DAILY (6 AM) morphine 2-4 mg injection 2-4 mg INTRAVENOUS q 3 H PRN 0.9% NaCl 2-10 mL 2-10 mL INTRAVENOUS q 12 H oxyCODONE IR 5 mg tab(s) (ROXICODONE) 5 mg ORAL q 6 H PRN ondansetron (PF) 4 mg injection (ZOFRAN) 4 mg INTRAVENOUS q 6 H PRN bacitracin-polymyxin B 500-10,000 unit/gram (POLYSPORIN) TOPICAL TID Labs: Recent Labs 05/15/18 0312 05/14/18 0610 05/14/18 0430 NA 128* -- 127* K 3.5 -- 4.1 CHLOR 86* -- 88* CO2 33* -- 27 BUN 28* -- 16 CREAT 1.10 -- 0.51* GLUC 104* -- 86 ANION 13 -- 16 CA 8.8 -- 7.9* MG -- 1.2* -- P -- -- 4.0 WBC 10.91* -- 12.76* HB 10.1* -- 10.2* HCT 29.9* -- 29.2* PLT 146 -- 168 INR 1.58* -- 1.34* PH -- -- 7.379 PCO2 -- -- 52.3* PO2 -- -- 83.0* BE -- -- 4.2 Exam: GENERAL: No distress, alert, cooperative NEURO: AANDOx3, CN II-XII grossly intact HEENT: normocephalic, atraumatic LUNGS: Unlabored breathing on supplemental O2 CARDIAC: Regular rate and rhythm as above ABDOMEN: Soft, non-tender, non-distended EXTREMITIES: SNEED, No deformities, No edema SKIN: Skin color, texture, turgor normal, No rashes or lesions ASSESSMENT AND PLAN: Active Hospital Problems Diagnosis Date Noted - Right rib fracture 05/13/2018 - Heavy alcohol use 11/16/2017 - ICD (implantable cardioverter-defibrillator) in place - CHF (congestive heart failure) (HCC) 67 year old male s/p fall down stairs with R 4-8th rib fxs - DIET REGULAR - DVT ppx: SCD, home warfarin - PT/OT - home - d/c meenakshi to post scalp lac 05/20 - home meds, PRN antihypertensive - IS, home O2, nocturnal CPAP - home warfarin restarted yesterday, INR 1.58 - medicine recs pending SIGNATURE: Nina Jones MD PATIENT NAME: Jignesh Ramires DATE: May 15, 2018 TIME: 6:52 AM Pager: see below Trauma Service Pager: For questions or concerns Mon-Thu 6a-5p please page [phone]. After 5pm and on Weekends and Holidays, please page [phone] if in ICU or [phone] if on RNF. Attending Note I evaluated the patient and personally participated in the ramírez components. I agree with the resident's findings and plan as documented and have discussed the case and management of the patient's care with the resident. Continue Aggressive pulmonary toilet, wean FiO2 closer to baseline, counseling for alcohol cessation, encourage more frequent use of narcotic pain medication, continue nocturnal CPAP, minimize Toradol and NSAID use Anticipate discharge to home tomorrow. [facility] medicine recs. A total of 40 minutes was spent in direct patient contact. Greater than 50% of the direct patient contact time was spent in counseling or coordination of care. Dhruv Cruz MD Department of General Surgery Section of Trauma, Surgery Critical Care, and Acute Care Surgery NURSING PROG Observed: 05/15/2018 Status: COMPLETED Source: [place] 6:25 AM CLINIC OTHER CAMPUS REPOSITORY HNO ID: [id number] Author: Michele LaraRn) JANIE Romo Service: (none) Author Type: Registered Nurse Type: Nursing Progress Note Filed: 05/15/2018 6:35 AM Note Text: Nursing Progress Note Patient Name: Jignesh Ramires Patient Location: [id number]-* Dr. Jones notified of pt's elevated BP throughout the morning that was unresponsive to pain medications. Dr. Jones to order prn BP med. This note was completed by: Michele Romo RN HEMOGRAM/DIFF Collected: 05/15/2018 Status: F Source: [facility] 3:12 AM HEALTH SYSTEM REPOSITORY TYPE CODE TESTS RESULT OUT OF REFERENCE UNITS RANGE LAB WBC(LOINC) 4.23-9.07 thou/cmm WBC High 10.91 LAB RBC(LOINC) 4.63-6.08 mil/cmm Low RBC 3.08 LAB HGB(LOINC) 13.7-17.5 g/dL Low Hgb 10.1 LAB HCT(LOINC) 40.1-51.0 % Low Hct 29.9 LAB MCV(LOINC) 83.2-95.6 fl MCV High 97.1 LAB MCH(LOINC) 25.7-32.2 pg MCH High 32.8 LAB MCHC(LOINC 32.3-36.5 % ) MCHC 33.8 LAB RDW(LOINC) 11.6-14.4 % RDW 13.8 LAB RDWSD(LOIN 36.1-45.8 fl C) RDW SD High 48.5 LAB PLT(LOINC) 141-365 thou/cmm Platelet 146 LAB MPV(LOINC) 8.7-12.0 fl MPV 9.4 LAB SEG(LOINC) % Seg Neutrophil 82.3 LAB IGRE(LOINC % ) Immature Grans 0.90 LAB LYMPH(LOIN % C) Lymphocyte 6.7 LAB MNO(LOINC) % Monocyte 9.8 LAB EOSIN(LOIN % C) Eosinophil 0.2 LAB BASO(LOINC % ) Basophil 0.1 LAB SEGN(LOINC 1.78-5.38 thou/cmm ) Abs. High Neut (ANC) 8.98 LAB IGAB(LOINC 0.00-0.05 thou/cmm ) Abs High Immature Grans 0.10 LAB LYMN(LOINC 0.84-2.85 thou/cmm ) Low Abs. Lymph 0.73 LAB MONON(LOIN 0.30-0.82 thou/cmm C) Abs. High [place] 1.07 LAB EOSN(LOINC 0.04-0.54 thou/cmm ) Low Abs. Eosin 0.02 LAB BASON(LOIN 0.01-0.08 thou/cmm C) Abs. Baso 0.01 Performed By: #### CBCD1 #### [place] [address] PROTIME Collected: 05/15/2018 Status: F Source: [facility] 3:12 AM HEALTH SYSTEM REPOSITORY TYPE CODE TESTS RESULT OUT OF REFERENCE UNITS RANGE LAB PTI(LOINC) 9.7-13.0 sec Prothrombin High Time 15.2 LAB INR(LOINC) 0.90-1.30 INR High 1.58 Result Comment: Note: Reference Range Change Vitamin K Antagonist (VKA) Therapeutic Range: INR 2 to 3 (Target INR of 2.5) Note: For patients treated with VKA drugs, such as warfarin, the [place] [employer] 2012 Guideline recommends a therapeutic INR range of 2 to 3 (target INR of 2.5). This recommendation includes high-risk patients with antiphospholipid syndrome with previous arterial or venous thromboembolism, current-generation mechanical or bioprosthetic aortic heart valve replacement. VKA Therapeutic Range for some Mechanical Valve Replacement: INR 2.5 to 3.5 (Target INR of 3) Note: Patients with mechanical aortic valve replacement and additional risk factors for thromboembolic events (atrial fibrillation, previous thromboembolism, LV dysfunction, hypercoagulable conditions) or an older generation mechanical AVR (i.e., ball in-Cage) or any mechanical MVR should have a INR therapeutic range of 2.5 to 3.5 target INR of 3). William RO, et al. Chest 2012; 141:7S-47S Aracelis GARCIA et al. [facility] 2017; 70: 252-289 Performed By: #### PT #### [place] [id number] BASIC PANEL Collected: 05/15/2018 Status: F Source: [facility] 3:12 AM HEALTH SYSTEM REPOSITORY TYPE CODE TESTS RESULT OUT OF REFERENCE UNITS RANGE LAB NA(LOINC) 136-145 mEq/L Low Sodium Blood 128 LAB K(LOINC) 3.5-5.1 mEq/L Potassium Blood 3.5 LAB CL(LOINC) 98-107 mEq/L Low Chloride Blood 86 LAB CO2(LOINC) 21-32 mEq/L CO2 High Blood 33 LAB GLU(LOINC) 70-99 mg/dL Glucose High Blood 104 LAB BUN(LOINC) 7-18 mg/dL BUN High Blood 28 LAB CREA(LOINC 0.67-1.17 mg/dL ) Creatinine Blood 1.10 LAB CA(LOINC) 8.5-10.1 mg/dL Calcium Blood 8.8 LAB ANGAP(LOIN 8-16 C) Anion Gap 13 Performed By: #### P8 #### [facility] [address] [place] [address] NURSING PROG Observed: 05/14/2018 Status: COMPLETED Source: [place] 9:45 PM CLINIC OTHER CAMPUS REPOSITORY HNO ID: [id number] Author: Angeli (Rn) Cirilo, RN Service: (none) Author Type: Registered Nurse Type: Nursing Progress Note Filed: 05/14/2018 10:26 PM Note Text: Nursing Progress Note Patient Name: Jignesh Ramires Patient Location[place] [address] [address] RN notified Medical Student Maria M ([id number]) that patient's blood pressure was elevated at 176/78 when patient came to the floor. RN gave the patient his prescribed lasix. No new orders received. This note was completed by: Angeli Kerr RN CASE MGT INIT Observed: 05/14/2018 Status: COMPLETED Source: [facility] 4:01 PM CLINIC OTHER CAMPUS REPOSITORY HNO ID: [id number] Author: Darren LaraRn) JANIE Fernandes Service: Care Management Author Type: Registered Nurse Type: Care Mgt Initial Assessment Filed: 05/14/2018 4:05 PM Note Text: CARE MANAGEMENT: ASSESSMENT AND DISCHARGE PLAN SERVICE DATE: 05/14/2018 SERVICE TIME: 1601 PRIMARY CARE PHYSICIAN: Jose Maruer III MD ADMISSION STATUS: Inpatient Needs Prior to Discharge: To Be Determined;Discharge Prescriptions;Pharmacy Bedside Delivery MEDICAL: Patient/Club Concierge Stated Goals: To return home to life as it was Health Insurance: MEDICARE A AND B Medicare, [facility] Health Issues Impacting Discharge Plan: None Last Admission Date: none Is this Within the Past 30 days? No Advance Directive: Current Advance Directive: Health Care Power of Serging Machine Operator;Living Will In Chart: No Cast Associate Attempted to Assist with AD Completion: Yes Action: Other: See Comment (requested copy) Health Literacy: 1. How often do you need to have someone help you when you read instructions, pamphlets, or other written material from your doctor or pharmacy? Never - 1 2. How confident are you filling out medical forms by yourself? Extremely - 1 If Patient scores > 3 on either question, the following interventions were put into place: Patient did not score > 3 FUNCTIONAL AND COGNITIVE/BEHAVIORAL PRIOR TO ADMISSION: Baseline Mental Status: Alert AND Oriented, Person, Place , Time and Situation Functional Status: Independent Does Patient Currently Receive Any Community Services or Home Care? None Equipment Prior to Admission: Bi-level Positive Airway Pressure/Continuous Positive Airway Pressure Oxygen 4L liters per minute uses 4L with BIPAP at hs and PRN Has the Patient Been in a Retirement Facility in the Past 30 days? 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 No Caregiver Needed Patient's transition needs and plan for meeting these needs: pharmacy lopez, [facility] Does the patient have an acute stroke diagnosis, or has the patient had a stroke during this admission? No Medication Adherence: I am convinced of the importance of my prescription medication: Agree completely - 0 I worry that my prescription medication will do more harm than good to me Disagree completely - 0 I feel financially burdened by my ccz-bh-hkhzar expenses for my prescription medication: Disagree completely - 0 Patient is categorized as low risk < 2 Are you interested in bedside delivery of your medications? Yes Food Concerns: In the Last Month, Have You had Trouble Getting Food? No trouble getting food During the Last Month, Have You Worried Whether Your Food Would Run Out Before You Had Enough Money to Buy More? No Is the Patient Psychosocially Complex? No ASSESSMENT AND PLAN: Medical Needs: None Psychosocial Needs: None FREEDOM OF CHOICE EXPLAINED: N/A POTENTIAL TRANSITION PLANS Home Pt lives at home with , has insurance with Rx coverage, indep. 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 Therapy rec home at md. Pt expresses no needs at this time. Anticipate home at md. SIGNATURE: Darren Fernandes RN PATIENT NAME: Jignesh Ramires DATE: May 14, 2018 TIME: 4:01 PM PAGER/CONTACT #: [phone] PLAN OF CARE Observed: 05/14/2018 Status: COMPLETED Source: [place] 12:15 PM [facility] OTHER CAMPUS REPOSITORY [facility] ID: [id number] Author: (21 Dealer) Nedra Kc Service: Pharmacy Author Type: Pharmacist Type: Plan of Care Filed: 05/14/2018 12:23 PM Note Text: MEDICATION HISTORY AND MEDICATION RECONCILIATION Patient Name:Bashir Ramires : 1950 Source of history:Patient: Reliability of source: Appears reliable, clearly identified: Medication name, Medication dose, Medication route, Medication frequency, Timing of last dose and Indications, Family: - provided me with medication list, Pharmacy records: [facility] Pharmacy ([phone]) and [facility] Medication Nonadherence Identified: No barriers noted The above information represents the best possible medication history: Yes Reconciliation completed? Yes All WOOD [facility]OP[facility] medications addressed by LIP Additional comments: - Verified medications with patient, , and [facility] pharmacy. [facility] and [facility] listed in patient's chart. Called both and not recent fill history, will remove from preferred pharmacy list. - Patient's warfarin is currently managed by Dr Florian at [facility]. Patient states that he takes warfarin because he has congestive heart failure. He states that he has no history of blood clots and has never been diagnosed with Afib. Pt states his goal INR is 2-3. He states that he has been having trouble keeping his INR in goal range and has required frequent INR checks, almost weekly, with frequent changes in his warfarin dose. States last INR check was Friday 05/11 and his INR was low. He was instructed to take 7.5 mg on that day and then 5 mg daily after. Patient has 5 mg tablets at home. - Patient was recently prescribed a prednisone taper for bronchitis. He began the course on 05/06. Stays he is due to take 20 mg today, then 10 mg every day for the next 3 days. - Please see medication list for last fill dates - Of note, non-medications on the list were not reviewed. 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 Yes predniSONE (DELTASONE) 10 mg tablet Take 10 mg by mouth as directed. Take 4 tablets (40 mg) daily for 3 days, then 3 tablets (30 mg) daily for 3 days, then 2 tablets (20) daily for 3 days, then 1 tablet (10 mg) daily for 3 days. Yes hydroxychloroquine (PLAQUENIL) 200 mg tablet Take 1 tablet by mouth twice daily. Yes levothyroxine (LEVOXYL) 25 mcg tablet Take 1 tablet by mouth once daily. Take on empty stomach. For Thyroid Yes Omeprazole 40 mg capsule Take 1 capsule by mouth once daily. Yes ferrous sulfate 325 mg (65 mg iron) tablet Take 1 tablet by mouth twice daily with meals. Yes fluticasone (FLONASE) 50 mcg/actuation nasal spray Use 1 [place] in each nostril once daily. Yes atorvastatin (LIPITOR) 40 mg tablet Take 40 mg by mouth once daily. Yes carvedilol (COREG) 6.25 mg tablet Take 6.25 mg by mouth twice daily with meals. Yes warfarin (COUMADIN) 5 mg tablet Take 5 mg by mouth daily as directed. Yes OXYGEN, HOME THERAPY, by Nasal Cannula route as directed. 3L under exertion and 2L at rest 09/03. Yes losartan (COZAAR) 50 mg tablet Take 50 mg by mouth once daily. Yes furosemide (LASIX) 40 mg tablet Take 40 mg by mouth twice daily. Yes albuterol (PROVENTIL) 2.5 mg/0.5 mL nebulizer solution Use 0.5 mL via nebulizer every 6 hours as needed. Yes cholecalciferol (VITAMIN D) 1,000 unit tab tablet Taking 1600 IU 800 am and 800 pm Yes budesonide-formoterol (SYMBICORT) 160-4.5 mcg/actuation inhaler Inhale 2 Puffs as instructed twice daily. Yes albuterol HFA (PROAIR HFA) 90 mcg/actuation inhaler Inhale 2 Puffs as instructed every 4 hours as needed. Yes aclidinium bromide (TUDORZA PRESSAIR) 400 mcg/actuation aepb Inhale 1 Inhalation as instructed twice daily. Yes aspirin, enteric coated (ASPIRIN, ENTERIC COATED) 81 mg EC tablet Take 1 tablet by mouth once daily. Yes multivitamin tablet Take 1 tablet by mouth once daily. Yes COMPOUNDED PRESCRIPTION Knee high support stockings . 20-30 weight DIAGNOSIS: Venous insufficency I87.2 COMPOUNDED PRESCRIPTION Please perform nocturnal pulse oximetry on 6 lpm O2 nasal cannula. Please fax results to [phone]. Diagnosis: Very severe COPD J44.9 COMPOUNDED PRESCRIPTION Please perform nocturnal pulse oximetry on 4 lpm O2 NC. Dx= Nocturnal Hypoxemia G47.34. Please fax results to [phone]. COMPOUNDED PRESCRIPTION Please perform nocturnal oximetry on 2 lpm O2 NC. DX: Chronic hypoxemic respiratory failure COMPOUNDED PRESCRIPTION Please provide disability placard. 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 End date: 07/17/2021 COMPOUNDED PRESCRIPTION 1 Units four times daily as needed. NEBULIZER FOR HOME USE. DX: COPD exacerbation COMPOUNDED PRESCRIPTION Nebulizer, Mask, AND O2 Tubing. Use as directed. COMPOUNDED PRESCRIPTION 2L of O2 at night. Length of need 99 months. Dx: COPD. COMPOUNDED PRESCRIPTION Please enroll in pulmonary rehab for severe obstructive airway disease. Adjust O2 prn spo2 >90%. Pre and post rehabilitation 6 minute walk test or exercise stress test to develop the exercise prescription and to monitor outcomes. NEDRA KC (BAG BAILER) May 14, 2018 12:15 PM THERAPY NT Observed: 05/14/2018 Status: COMPLETED Source: [place] 11:22 AM CLINIC OTHER CAMPUS REPOSITORY [facility] ID: [id number] Author: Felecia Martell Service: Physical Therapy Author Type: Physical Therapist Type: Therapy (PT/OT/Speech/Resp) Filed: 05/14/2018 11:56 AM Note Text: Physical Therapy Evaluation SERVICE DATE: 05/14/2018 SERVICE TIME: 1045 to 1105 ROOM: [place] [address] Recommended Discharge Disposition: Home PT Recommendations to Nursing: Ambulate without device;To bathroom;Transfer to/from chair;OOB for Meals;With assist of 1 person PT 6 Clicks Score: 20 Precautions/Activity Restrictions: Fall Risk Precaution/Activity Restriction Comments: 4L O2 NC ASSESSMENT : Patient who was admitted for fall down stairs, presents with a stable hospital course and the past medical history of CHF and home o2 use limiting current functional level, as well as the social factors complicating the discharge of ETOH precipitating this fall; thus the patient required a moderate level complexity evaluation. This patient is Near baseline functioning of independent and will require continued skilled therapy in the hospital for gait training, transfer training, general strengthening, balance training, safety and endurance training. Currently the recommendation is home with his to assist if needed. Patient Disposition at Start of Session: OOB in Chair Patient Disposition at End of Session: OOB in Chair Tolerated Full Session Physical Therapy Problem List: Safety Deficits;Functional Mobility Impairment;Balance Impaired Patient /Caregiver Goals: Go Home Goals for Plan of Care: Transfer supine to/from sit with: Independent Transfer sit to/from stand with: Independent Ambulate with: Independent Distance: 50 Device: No Device Ambulate up and down steps with: Independent Number of steps: 5 Device: Rail Rehab Potential: Good PLAN: Treatment Frequency (times per week): 5 (2-5) Current admission Treatment Interventions: Education;Functional Mobility Training;Balance Training Plan of Care developed with: Patient TREATMENT INTERVENTIONS: Therapy Diagnosis: Muscle Weakness (generalized);Abnormalities of gait and mobility-other Interventions Provided: Evaluation;Gait Training (47781) $ Evaluation-Low (89882) Billed Units: 1 unit Gait Training (28082) Treatment Minutes: 3 0 units Skilled Intervention(s): Instruction in use of equipment, cues for sequence and pattern Total Timed Code Treatment Minutes: 3 Total Treatment Time (minutes): 20 FUNCTIONAL G CODE: PT 6 Clicks Score: 20 (05/14/18 1045) Mobility: Walking and Moving Around Current Status (G8978): CJ (05/14/18 104) Mobility: Walking and Moving Around Goal Status (G8979): CI (05/14/18 104) Based on clinical assessment and the score on the 6 Clicks Functional Assessment Tool, the G code and corresponding severity modifiers are documented above. SUBJECTIVE: Current Hospital Course: Chart reviewed; patient drank 5 beers then fell down stairs and fractured right ribs 4-8 and sustained a head lac. Reason for Physical Therapy Consult : Eval; fall Patient Report: Patient was happy to get out of the bed this morning and has been wanting to walk. 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 Entry To Home: Stairs Number Of Stairs Into Home: 4 Prior Functional Level: Within Functional Limits OBJECTIVE: Mini Cog Score: 5 (05/14/18 1050) CURRENT FUNCTIONAL STATUS: Current Functional Mobility Assist Level Additional Information Rolling Supine to Sit Sit to Supine Scooting Sit to Stand Contact Guard Assistance Stand to Sit Contact Guard Assistance Bed to Chair Toilet/Commode Gait Contact Guard Assistance Gait Device: None Gait Distance (feet): 25 Stairs Curb Step Car Transfer General Gait Deviations: Sirisha decreased Balance: Positive Romberg Please see discipline specific clinical documentation flowsheet for complete details for this therapy evaluation/treatment. SIGNATURE: Felecia Martell PT PATIENT NAME: Jignesh Ramires DATE: May 14, 2018 TIME: 11:22 AM THERAPY NT Observed: 05/14/2018 Status: COMPLETED Source: [place] 11:19 AM CLINIC OTHER CAMPUS REPOSITORY [facility] ID: [id number] Author: Doris Cobian/Salvador Fountain Service: Occupational Therapy Author Type: Occupational Therapist Type: Therapy (PT/OT/Speech/Resp) Filed: 05/14/2018 11:21 AM Note Text: Occupational Therapy Evaluation SERVICE DATE: 05/14/2018 SERVICE TIME: 1050 to 1107 ROOM: [place] [address] Recommended Discharge Disposition: Home Recommended Discharge Disposition Comments: with spouse assist as needed OT Recommendations to Nursing: To Bathroom for ADL?s /and or Toileting;OOB for meals;With assist of 1 person OT 6 Clicks Score: 21 Precautions/Activity Restrictions: Fall Risk Precaution/Activity Restriction Comments: 4L O2 NC ASSESSMENT: OT Evaluation Low Complexity: Occupational Profile - Brief review of patient's medical record completed (please see current hospital course of evaluation). Occupational Performance - Pt presents with deficits in feeding, grooming, UE bathing/dressing, LE bathing/dressing, functional transfers, functional mobility, decreased safety awareness, decreased insight into deficits Complexity in Clinical Decision Making - The extent of clinical reasoning was low, number of treatment options limited, no need for modifications during the evaluation process, no comorbidities present to affect patient's occupational performance. Patient Disposition at Start of Session: OOB in Chair;Call Fried in Reach;Family Present Patient Disposition at End of Session: OOB in Chair;Call Fried in Reach;Family Present Tolerated Full Session Occupational Therapy Problem List: Safety Deficits;Impaired Self Care Patient /Caregiver Goals: Go Home Goals for Plan of Care: Grooming with: Independent Upper Body Dressing with: Independent Lower Body Dressing with: Independent Toilet Transfer with: Independent Tolerate (minutes of functional activity): 25 Functional Activity with: Independent Rehab Potential: Good PLAN: Treatment Frequency (times per week): 5 (1-5x/week) Current admission Treatment Interventions: Education;Self Care / Home Management Plan of Care developed with: Patient TREATMENT INTERVENTIONS: Therapy Diagnosis: Decreased activities of daily living (ADL) Interventions Provided: Evaluation $ Evaluation-Low (70747) Billed Units: 1 unit Total Treatment Time (minutes): 17 FUNCTIONAL G CODE: OT 6 Clicks Score: 21 (05/14/18 1050) Self Care Current Status (G8987): CJ (05/14/18 1050) Self Care Goal Status (G8988): CI (05/14/18 1050) Based on clinical assessment and the score on the 6 Clicks Functional Assessment Tool, the G code and corresponding severity modifiers are documented above. SUBJECTIVE: Current Hospital Course: Chart reviewed; Patient s/p fall down basement stairs, per report was drinking heavily. Positive for head laceration, R 4-8 rib fx's. Reason for Occupational Therapy Consult: s/p fall, rib fx's Relevant Past Medical History: CHF, ETOH use, ICD Patient Report: Patient up in chair, agreeable to OT session., IDx2. Anticipate return home at discharge. 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 Entry To Home: Stairs Number Of Stairs Into Home: 4 Prior Functional Level: Within Functional Limits OBJECTIVE: Responsiveness: Alert Follows Commands: 3-step Commands Executive Function Deficits: Safety Awareness Safety Awareness Deficit: Minimal impairment Mini Cog Score: 5 (05/14/18 1050) Psychosocial Deficit: Hx: Heavy ETOH use Vision Deficits: Wears glasses CURRENT FUNCTIONAL STATUS: Current Activities of Daily Living Assist Level Feeding Independent Grooming Set Up Bathing Upper Body Set Up Bathing Lower Body Set Up Dressing Upper Body Set Up Dressing Lower Body Set Up Toileting Set Up Functional Mobility Assist Level Rolling (up in chair upon arrival) Supine to Sit Sit to Supine Scooting Sit to Stand Contact Guard Assistance Stand to Sit Contact Guard Assistance Bed to Chair Toilet/Commode Contact Guard Assistance Functional Mobility Contact Guard Assistance Hand Held Assist Please see discipline specific clinical documentation flowsheet for complete details for this therapy evaluation/treatment. SIGNATURE: Doris Fountain OTR/L PATIENT NAME: Jignesh Ramires DATE: May 14, 2018 TIME: 11:19 AM CHEST 2 VIEWS Observed: 05/14/2018 Status: F Source: [facility] 8:06 AM HEALTH SYSTEM REPOSITORY Performed at [facility] APPROVED BY: Sukhdeep Fernandez MD EXAMINATION: CHEST RADIOGRAPH (2 VIEW FRONTAL & LATERAL) CLINICAL HISTORY: Chest pain. Patient fell. MQ: XC2_5 Comparison: 01/14/2017 RESULT: Lines, tubes, and devices: Left-sided cardiac pacing device with lead in stable position. Overlying painter foreman leads. Lungs and pleura: Emphysematous changes seen at the lung bases. The lungs are otherwise clear. No pneumothorax, infiltrate, or effusion Cardiomediastinal silhouette: Normal cardiomediastinal silhouette. Other: No obvious rib abnormality. IMPRESSION: No acute radiographic abnormality. MAGNESIUM BLOOD Collected: 05/14/2018 Status: F Source: [facility] 6:10 AM HEALTH SYSTEM REPOSITORY TYPE CODE TESTS RESULT OUT OF REFERENCE UNITS RANGE LAB MAG(LOINC) 1.6-2.6 mg/dL Low Magnesium Blood 1.2 Performed By: #### MAG #### [facility] [address] [place] [address] BLD GAS ART AND Collected: 05/14/2018 Status: F Source: [facility] [place] 4:30 AM HEALTH SYSTEM REPOSITORY TYPE CODE TESTS RESULT OUT OF REFERENCE UNITS RANGE LAB FIO2(LOINC % ) FIO2 Value Not Given LAB TEMPA(LOIN C) Temperature 37.0 LAB PH(LOINC) 7.350-7.450 pH Arterial 7.379 LAB PCO2(LOINC 36.0-46.0 mm Hg ) PCO2 High Arterial 52.3 LAB PO2(LOINC) 85.0-96.0 mm Hg Low PO2 Arterial 83.0 LAB HCO3A(LOIN 22.0-26.0 mEq/L C) HCO3- High 30.2 LAB O2%A(LOINC 95.0-98.0 % ) O2% Sat Arterial 95.6 LAB BASEX(LOIN -2.5 to 2.5 mEq/L C) Base Excess 4.2 LAB VERNELL(LOIN 4.43-4.93 mg/dL C) Low Ionized Calcium 4.29 LAB CAPHG(LOIN 4.36-4.73 mg/dL C) Low Ionized Ca,PH7.4 4.24 Performed By: #### ABGIG #### [facility] [address] [place] [address] HEMOGRAM/DIFF Collected: 05/14/2018 Status: F Source: [facility] 4:30 AM HEALTH SYSTEM REPOSITORY TYPE CODE TESTS RESULT OUT OF REFERENCE UNITS RANGE LAB WBC(LOINC) 4.23-9.07 thou/cmm WBC High 12.76 LAB RBC(LOINC) 4.63-6.08 mil/cmm Low RBC 3.05 LAB HGB(LOINC) 13.7-17.5 g/dL Low Hgb 10.2 LAB HCT(LOINC) 40.1-51.0 % Low Hct 29.2 LAB MCV(LOINC) 83.2-95.6 fl MCV High 95.7 LAB MCH(LOINC) 25.7-32.2 pg MCH High 33.4 LAB MCHC(LOINC 32.3-36.5 % ) MCHC 34.9 LAB RDW(LOINC) 11.6-14.4 % RDW 13.7 LAB RDWSD(LOIN 36.1-45.8 fl C) RDW SD High 47.7 LAB PLT(LOINC) 141-365 thou/cmm Platelet 168 LAB MPV(LOINC) 8.7-12.0 fl MPV 9.6 LAB SEG(LOINC) % Seg Neutrophil 83.7 LAB IGRE(LOINC % ) Immature Grans 0.90 LAB LYMPH(LOIN % C) Lymphocyte 4.6 LAB MNO(LOINC) % Monocyte 10.5 LAB EOSIN(LOIN % C) Eosinophil 0.1 LAB BASO(LOINC % ) Basophil 0.2 LAB SEGN(LOINC 1.78-5.38 thou/cmm ) Abs. High Neut (ANC) 10.68 LAB IGAB(LOINC 0.00-0.05 thou/cmm ) Abs High Immature Grans 0.11 LAB LYMN(LOINC 0.84-2.85 thou/cmm ) Low Abs. Lymph 0.59 LAB MONON(LOIN 0.30-0.82 thou/cmm C) Abs. High [place] 1.34 LAB EOSN(LOINC 0.04-0.54 thou/cmm ) Low Abs. Eosin 0.01 LAB BASON(LOIN 0.01-0.08 thou/cmm C) Abs. Baso 0.03 Result Comment: Smear scanned; tech agrees with automated differential Performed By: #### CBCD1 #### [place] [address] BASIC PANEL Collected: 05/14/2018 Status: F Source: [facility] 4:30 AM HEALTH SYSTEM REPOSITORY TYPE CODE TESTS RESULT OUT OF REFERENCE UNITS RANGE LAB NA(LOINC) 136-145 mEq/L Low Sodium Blood 127 LAB K(LOINC) 3.5-5.1 mEq/L Potassium Blood 4.1 Result Comment: SPECIMEN SLIGHTLY HEMOLYZED LAB CL(LOINC) 98-107 mEq/L Chloride Low Blood 88 LAB CO2(LOINC) 21-32 mEq/L CO2 Blood 27 LAB GLU(LOINC) 70-99 mg/dL Glucose Blood 86 LAB BUN(LOINC) 7-18 mg/dL BUN Blood 16 LAB CREA(LOINC) 0.67-1.17 mg/dL Creatinine Low Blood 0.51 LAB CA(LOINC) 8.5-10.1 mg/dL Calcium Low Blood 7.9 LAB ANGAP(LOINC) 8-16 Anion Gap 16 Performed By: #### P8 #### [facility] [address] [place], [place] [address] PHOSPHORUS BLOOD Collected: 05/14/2018 Status: F Source: [facility] 4:30 AM HEALTH SYSTEM REPOSITORY TYPE CODE TESTS RESULT OUT OF REFERENCE UNITS RANGE LAB PHOS(LOINC 2.5-4.9 mg/dL ) Phosphorus Blood 4.0 Performed By: #### PHOS #### [place] [id number] PROTIME Collected: 05/14/2018 Status: F Source: [facility] 4:30 AM HEALTH SYSTEM REPOSITORY TYPE CODE TESTS RESULT OUT OF REFERENCE UNITS RANGE LAB PTI(LOINC) 9.7-13.0 sec Prothrombin High Time 13.6 LAB INR(LOINC) 0.90-1.30 INR High 1.34 Result Comment: Note: Reference Range Change Vitamin K Antagonist (VKA) Therapeutic Range: INR 2 to 3 (Target INR of 2.5) Note: For patients treated with VKA drugs, such as warfarin, the [place] [employer] 2012 Guideline recommends a therapeutic INR range of 2 to 3 (target INR of 2.5). This recommendation includes high-risk patients with antiphospholipid syndrome with previous arterial or venous thromboembolism, current-generation mechanical or bioprosthetic aortic heart valve replacement. VKA Therapeutic Range for some Mechanical Valve Replacement: INR 2.5 to 3.5 (Target INR of 3) Note: Patients with mechanical aortic valve replacement and additional risk factors for thromboembolic events (atrial fibrillation, previous thromboembolism, LV dysfunction, hypercoagulable conditions) or an older generation mechanical AVR (i.e., ball in-Cage) or any mechanical MVR should have a INR therapeutic range of 2.5 to 3.5 target INR of 3). William GH, et al. Chest 2012; 141:7S-47S Aracelis RA, et al. JACC 2017; 70: 252-289 Performed By: #### PT #### [facility] [address] [place] [id number] HISTORY PHYSICAL Observed: 05/14/2018 Status: COMPLETED Source: [place] 12:02 AM CLINIC OTHER CAMPUS REPOSITORY [facility] ID: [id number] Author: Lashawn Echeverria Service: Trauma Author Type: Physician Type: HANDP Filed: 05/14/2018 8:16 AM Note Text: HISTORY AND PHYSICAL EXAMINATION SERVICE DATE: 05/13/2018 SERVICE TIME: 10:30 PM PRIMARY CARE PHYSICIAN: Jose Maurer III MD Subjective CHIEF COMPLAINT: Fall HPI: This is a 67 year old male who presents s/p fall down basement stairs. Patient states he remembers only some parts of his fall. He did hit his head. He denies any WEBBER, nausea, emesis, changes in vision, SOB, CP, abdominal pain, weakness, numbness. Patient is on coumadin for prevention of clot due to LV dysfunction. He was initially seed at outside ED. Imaging from there shows R 4-8th rib fxs. Patient had a hoang placed at outside ED for urinary retention. ETOH was 222. CT Head/Neck: Chronic involutional changes of the brain. No intracranial hemorrhage. Multilevel degenerative changes in cervical spine. CT Chest/Abdomen/Pelvis: Left chest wall pacing device. Nondisplaced right anterior fourth, fifth, sixth, seventh and eighth rib fractures. No acute traumatic findings of the abdomen or pelvis. Prominent distention of the bladder. Unsure if this represents urinary retention PAST MEDICAL HISTORY Diagnosis Date - Acute and chronic respiratory failure with hypoxia (HCC) - Arthritis of hand, degenerative 02/02/2014 - Benign non-nodular prostatic hyperplasia with lower urinary tract symptoms 01/09/2016 - Cardiomyopathy (HCC) - CHF (congestive heart failure) (HCC) - Chronic obstructive pulmonary disease (COPD) (HCC) severe - Diverticulosis of colon (without mention of hemorrhage) - HTN (hypertension) - Hyperlipidemia - ICD (implantable cardioverter-defibrillator) in place - Internal hemorrhoids without mention of complication - Moderate to severe pulmonary hypertension (HCC) 04/01/2017 - NICM (nonischemic cardiomyopathy) (HCC) - Obstructive chronic bronchitis (HCC) 08/06/2010 - PMH - PAST MEDICAL HISTORY OF cystic acne - Psoriasis 02/02/2014 - Psoriatic arthritis (HCC) 02/02/2014 - Pulmonary HTN (HCC) - PVD (peripheral vascular disease) (HCC) - Snoring - SOB (shortness of breath) - Stage 3 severe COPD by GOLD classification ([facility]) - Systolic CHF (HCC) PAST SURGICAL HISTORY Procedure Laterality Date - BASIC ICD SINGLE CHAMBER 01/13/2017 [facility] - COLONOSCOP W/ OR W/O BRSH SPEC 11/18/06 - COLONOSCOP W/ OR W/O BRSH SPEC 12/07/2014 Colonoscopy - ECHOCARDIOGRAM 08/28/2016 EF 20-25% - HEART CATHETERIZATION 08/27/2016 - PAST SURGICAL HISTORY OF cysts removed FAMILY HISTORY Problem Relation Age of Onset - Ischemic Heart Disease Mother - Cancer Father brain cancer - Diabetes Maternal Grandmother - Stroke Brother Social History Substance Use Topics - Smoking status: Former Smoker Packs/day: 0.50 Years: 30.00 Types: Cigarettes Quit date: 08/21/2011 - Smokeless tobacco: Never Used - Alcohol use Yes Comment: drinks 3 beer daily (Not in a hospital admission) ALLERGIES No Known Allergies COMPLETE REVIEW OF SYSTEMS: as per HPI Objective PHYSICAL EXAM: Physical Exam Performed: GENERAL: Alert, no distress, cooperative HEAD/SINUSES: 4cm stellate Y shaped laceration to posterior scalp, no bony instability, EOMI, no hemorrhage from nasal/oral/ear orifice NECK: NTTP along c spine, ROM WNL BACK: NTTP, no step offs, no deformities, no abrasions, no lacerations LUNGS: chest wall is atraumatic, no crepitus, no ecchymosis CARDIAC: Rhythm: regular rate and rhythm ABDOMEN: Soft, nontender, obese EXTREMITIES: moving all extremities, skin tears on dorsal hands bilaterally, dorsal left forearm, anterior right knee NEURO: Grossly normal cognition, motor function, and cranial nerves III-XII BP 147/81 Pulse 76 Resp 20 Ht 5' 5 (1.65m) Wt 155 lb (70.3kg) SpO2 96% BMI 25.79 kg/(m2). DATA: Diagnostic tests reviewed for today's visit: Most recent labs and imaging results. WBC 9 HGB 11.5 INR 1.3 CREAT 0.68 ETOH 222 Urine drug screen from OSH is negative Wound on posterior head: Laceration cleaned out with 50cc NS. Stapled with stapler. No complications. Dressing applied. Assessment/Plan 67 year old male s/p fall down stairs with R 4-8th rib fxs Neuro: - Pain control: tylenol, roxicodone, morphine prn - [place] in posterior scalp, d/c 05/20 CV: - Home meds - Home lasix likely restart 05/14 Resp: - IS - 3L NC (home O2) - Nocturnal CPAP - CXR 05/14 am GI: - Reg diet - PPI (home med) : - Hoang - Lytes prn - Is and Os ID: - No indication for antibiotics at this time Heme: - Hgb stable - Warfarin held, restart on 05/14 vs hep gtt - Daily INR Endo: - GLuc WNL MSK: - Mobilize patient - PT/OT pending PPX: - Warfarin vs hep gtt 05/14 if Hgb stable, no KULWANT on CXR - PPI - SCDs Consults: - Trauma, SICU Dispo: - SICU - Sound consult when transferred to floor Discussed with Dr. Sabine MD Trauma Service Pager: For questions or concerns Thu-Thu- please page [phone]. After 5pm and on Weekends and Holidays, please page [phone] if in ICU or [phone] if on RNF. SICU Service Pager: For questions or concerns Thu-Thu- please page [phone]. After 5pm and on Weekends and Holidays, please page [phone]. SIGNATURE: Meggan Stuart MD PATIENT NAME: Jignesh Ramires DATE: May 14, 2018 TIME: 12:01 AM PAGER/CONTACT #: above Admitted to ICU due to age and number of rib fracture to help with respiratory function Aggressive pain control avoiding narcotics as much as possible Activicy as tolerated Diet as tolerated Repeat CXR this AM Restart Lasix home dose Add Toradol 15Q8 IV x days Replace Magnesium I provided 35 minutes of critical care services which were necessary due to above specified injuries and illnesses. This patient has a high probability of sudden, clinical significant deterioration, which required the highest level of care and preparedness to intervene urgently. I managed and supervised life or organ supporting interventions that require frequent assessments. This time does not include time devoted to teaching and to any procedure I billed separately. I have personally seen and examined this patient and participated in the ramírez components of this encounter with the multi-disciplinary ICU team. I discussed the management of this case with the resident and reviewed/confirmed their documentation, attached or in separate note. I personally reviewed today's actual images, the associated image reports, and current labs. I supervised the ordering of additional testing, imaging, labs, and/or consultations. The patient and/or family were fully informed of the findings and plan of care. They had the opportunity to ask questions and raise any issues of concern, all of which were answered and dealt with by me to their stated satisfaction. The critical care treatment was mainly directed to address the following issues: (S22.41XA) Closed fracture of multiple ribs of right side, initial encounter (primary encounter diagnosis) (J98.9) Respiratory compromise (Z79.01) Warfarin anticoagulation (E83.51) Hypocalcemia (E83.42) Hypomagnesemia (D64.9) Chronic anemia Alcohol use Cardiomyopathy with CHF Management included sedation, pain control and ventilation assessment including need for ventilator, weaning and/or extubation as indicated. Management of critical care illnesses are edited above by me, including system by system plan and are not only limited to infectious disease and tailoring the antibiotic therapy, nutrition assessment and supplementation, electrolyte correction and prevention of ICU related complications using ventilator bundle, sedation holiday and assessment and removal of lines and tubes where indicated. SIGNATURE: Lashawn Echeverria MD PATIENT NAME: Jignesh Ramires DATE: May 14, 2018 TIME: 8:04 AM EMERGENCY DEPARTMENT Observed: 05/13/2018 Status: F Source: [place] SUMMARY 11:57 PM [facility] REPOSITORY [facility] Medical Records Department [address] [place] [address] Emergency Department Summary 05/13/182034 MR#: [id number] Acct: [id number] Name: JIGNESH RAMIRES Rep #: [id number] : 1950 67 From: Case Strauss MD PCP: Jose Maurer III, MD Status: DEP ER ADDENDUM by Case Strauss MD on 05/13/18 at 2932 Our secretary of state sent the updated chest CT read to [facility] and called to confirm receipt of the update. 05/13/182356 Date Case Strauss MD cc: Jose Maurer III, MD * Signed ADDENDUM by Case Strauss MD on 05/13/18 at 2353 Addendum added to clarify that the patient was transferred with images and printed interpretations from radiology. 05/13/182352 Date Case Strauss MD cc: Jose Maurer III, MD * Signed - ER Visit Summary Date of Service: 05/13/18 Chief Complaint: Fall History of Present Illness: The patient is a 67 M that apparently fell down a flight of stairs at home. He was found at the bottom of his stairs at home. Family called EMS. He was found to have a laceration to his occipital scalp. He had multiple abrasions. They felt that he was confused and he was having difficulty breathing. They were assisting with ventilations with a bag valve mask. On arrival, the patient says he was feeling well prior to the fall. He says he did have 5 beers today. He is complaining of some back pain. Denies any weakness or numbness. He does take Coumadin. Physical Examination: Afebrile and vital signs unremarkable. 99% on 2 L. GCS 14 for some slurred speech. No focal or lateralizing neurologic abnormalities. Heart regular rate and rhythm. Lungs clear bilaterally. Abdomen slightly distended but otherwise nontender. Good pulses in all extremities, symmetric. He has an occipital laceration. Cervical collar is in place. Multiple abrasions over his extremities. Test Results: See below Emergency Department Course and Treatment: Patient seen immediately in the trauma room. Cervical spine immobilization maintained. Patient is on oxygen. He had a fluid bolus and 2 IVs. Hoang catheter placed. He was placed on a painter foreman. CT head and neck showed chronic changes. CT chest, abdomen, pelvis pending. INR 1.3. Labs fairly unremarkable. Alcohol level 222. Tox screen pending. Type and screen pending. EKG showed sinus rhythm. No signs of ischemia or infarction. I suspect the patient may have fallen secondary to alcohol use. There are no signs of stroke. He will need further observation in the hospital out of trauma center. At his request, I did call [facility] and Dr. Gary accepted the patient to the emergency department. Treatment Plan: As above Disposition: Transfer to [facility] Impression: 1. Fall 2. Scalp laceration 3. Multiple abrasions This note was generated with Glio dictation software. It may contain incorrect words, spelling, and punctuation that were not noted in review of the chart prior to signing ED Disposition - Plan for ED Patient: Chief Complaint: Neuro S/Sx Referrals: Jose Maurer III, MD [Primary Care Provider] - What to do if you have Problems For any increased pain, shortness of breath, bleeding, nausea or vomiting, chest pain, or any unexpected problems, contact your Primary Care Provider. Call [facility] ([phone]) or report to the closest Emergency Room. Call 911 if necessary. 05/13/18 2347 <Electronically signed by Case Strauss MD> Date Case Strauss MD Cosigner Signature (If Indicated): Date CC: Jose Maurer III, MD Observed: 05/13/2018 Status: F Source: [facility] MRSA SCREEN 11:30 PM HEALTH SYSTEM REPOSITORY Test performed at [facility] No MRSA detected. Performed By: #### MRSA #### [facility] [address] [address] ED NOTE Observed: 05/13/2018 Status: COMPLETED Source: [place] 10:58 PM [facility] [place] REPOSITORY HNO ID: [id number] Author: Stephanie (Rn) JANIE Atwood Service: Emergency Medicine Author Type: Registered Nurse Type: ED Notes Filed: 05/13/2018 10:59 PM Note Text: Dr. Mcelroy made aware of Pt temp. Pt was given 4 warm blankets and temperature in room was turned up as high as thermostat would allow. ED PROV NOTE Observed: 05/13/2018 Status: COMPLETED Source: [place] 10:06 PM [facility] [place] REPOSITORY HNO ID: [id number] Author: Sameera Gary MD Service: Emergency Medicine Author Type: Physician Type: ED Provider Notes Filed: 05/15/2018 9:46 AM Note Text: ED Provider Note Patient Name: Jignesh Ramires SERVICE DATE: 05/13/18 History Patient presents with: Trauma Evaulation: Pt fell down flight of stairs after drinking 5 beers. Pt was found unresponsive. EMS began ventilating pt and pt came around. Pt transferred from [facility]. This is a 67-year-old male with past medical history significant for CHF cardiomyopathy acute on chronic respiratory failure hypertension who presents from a [facility] for trauma surgery evaluation. Patient was involved in trauma in which she fell down 5 steps and does not remember the fall. Patient is on Coumadin for an unknown reason per patient. Patient does not recall fall and does no acute pain at this point. Patient states he was also recently treated for bronchitis with history of COPD on prednisone for which she will be on till Thursday. Patient with no other acute complaints at this time however still with signs concerning for intoxication. Patient with CT brain without contrast obtained at outside hospital showed no acute intracranial process CT cervical spine revealed no acute osseous injury CT chest with IV contrast revealed nondisplaced right anterior rib fractures of the fourth through eighth ribs. No other acute findings noted with the exception of a spiculated left upper lobe nodule measuring 1.3 x [address] abdomen and pelvis with IV contrast revealed no acute intra- abdominal or intrapelvic process. Patient with lab work performed revealed white blood cell count of 9.3K, hemoglobin of 11.5 platelet count of 187 INR 1.3, PT 15.8 PTT 32.1 sodium of 124 potassium 3.3 chloride of 84, BUN 18 creatinine 0.68 GFR 62 glucose of 115 with calcium of 8.3 patient's point of care glucose at that time was 126. Patient was given 1 L of normal saline and transferred to [facility] for further evaluation and management given the patient was clinically intoxicated and states unable to be clear to this time. PAST MEDICAL HISTORY Diagnosis Date - Acute and chronic respiratory failure with hypoxia (HCC) - Arthritis of hand, degenerative 02/02/2014 - Benign non-nodular prostatic hyperplasia with lower urinary tract symptoms 01/09/2016 - Cardiomyopathy (HCC) - CHF (congestive heart failure) (HCC) - Chronic obstructive pulmonary disease (COPD) (HCC) severe - Diverticulosis of colon (without mention of hemorrhage) - HTN (hypertension) - Hyperlipidemia - ICD (implantable cardioverter-defibrillator) in place - Internal hemorrhoids without mention of complication - Moderate to severe pulmonary hypertension (HCC) 04/01/2017 - NICM (nonischemic cardiomyopathy) ([facility]) - Obstructive chronic bronchitis (HCC) 08/06/2010 - PMH - PAST MEDICAL HISTORY OF cystic acne - Psoriasis 02/02/2014 - Psoriatic arthritis (HCC) 02/02/2014 - Pulmonary HTN ([facility]) - PVD (peripheral vascular disease) ([facility]) - Snoring - SOB (shortness of breath) - Stage 3 severe COPD by GOLD classification ([facility]) - Systolic CHF ([facility]) PAST SURGICAL HISTORY Procedure Laterality Date - BASIC ICD SINGLE CHAMBER 01/13/2017 [facility] - COLONOSCOP W/ OR W/O [facility] SPEC 11/18/06 - COLONOSCOP W/ OR W/O [facility] SPEC 12/07/2014 Colonoscopy - ECHOCARDIOGRAM 08/28/2016 EF 20-25% - HEART CATHETERIZATION 08/27/2016 - PAST SURGICAL HISTORY OF cysts removed FAMILY HISTORY Problem Relation Age of Onset - Ischemic Heart Disease Mother - Cancer Father brain cancer - Diabetes Maternal Grandmother - Stroke Brother Social History Social History Main Topics - Smoking status: Former Smoker Packs/day: 0.50 Years: 30.00 Types: Cigarettes Quit date: 08/21/2011 - Smokeless tobacco: Never Used - Alcohol use Yes Comment: drinks 3 beer daily - Drug use: No - Sexual activity: Not on file ALLERGIES No Known Allergies Review of Systems Constitutional: Negative for chills and fever. HENT: Negative for congestion, rhinorrhea and sore throat. Eyes: Negative for visual disturbance. Respiratory: Positive for cough and shortness of breath. Cardiovascular: Negative for chest pain. Gastrointestinal: Negative for abdominal pain, constipation, diarrhea, nausea and vomiting. Endocrine: Negative for polyuria. Genitourinary: Negative for dysuria and hematuria. Musculoskeletal: Negative for arthralgias and myalgias. Skin: Negative for rash. Neurological: Negative for weakness and numbness. Psychiatric/Behavioral: Negative for suicidal ideas. All other systems reviewed and are negative. Physical Exam BP 147/81 Pulse 76 Resp 20 Ht 5' 5 (1.65m) Wt 155 lb (70.3kg) SpO2 96% BMI 25.79 kg/(m2). Physical Exam Constitutional: He is oriented to person, place, and time. He appears well-developed and well-nourished. HENT: Head: Normocephalic and atraumatic. Eyes: Pupils are equal, round, and reactive to light. Conjunctivae and EOM are normal. Right eye exhibits no discharge. Left eye exhibits no discharge. Neck: Normal range of motion. No tracheal deviation present. Cardiovascular: Normal rate and regular rhythm. Exam reveals no friction rub. No murmur heard. Pulmonary/Chest: Effort normal. No respiratory distress. He has wheezes. He has no rales. Abdominal: Soft. He exhibits no distension and no mass. There is no tenderness. There is no rebound and no guarding. Musculoskeletal: Normal range of motion. Neurological: He is alert and oriented to person, place, and time. Skin: Skin is warm and dry. No rash noted. Psychiatric: He has a normal mood and affect. Judgment normal. Nursing note and vitals reviewed. Diagnostic Testing ED Labs Ordered and Reviewed - No data to display Results for orders placed or performed in visit on 05/11/18 PROTHROMBIN TIME/PT Result Value Ref Range PT INR 1.4 Procedures ED Course / Clinical Impression Clinical Impressions as of May 14 119 Closed fracture of multiple ribs of right side, initial encounter Course: Vital signs were reviewed. Triage records were reviewed. Medical records were reviewed. Nursing notes were reviewed and incorporated. Please see HPI, ROS, physical exam, vital signs and documentation above for full patient course and results. Briefly this is a 67 year old male presenting with chief concern of fall with known nondisplaced rib fractures of 4-8th ribs. Patient with physical exam significant for wheezing on exam, with right rib cage nontender without crepitus. Trauma surgery service consulted for evaluation for likely observation given patient still clinically intoxicated. Patient likely be observed and cleared once clinically sober. Patient admitted to surgery ICU under trauma surgery service in stable condition. MDM / Disposition / Plan MDM SIGNATURE: MD Jovanny Gordon (Res) MD Navi Resident 05/14/18 0122 I have personally seen and examined this patient. I have fully participated in the care of this patient with the resident. I have reviewed all pertinent clinical information, including history, physical exam and plan I was present for the significant portion of the procedure/(s) Physical exam: HEENT: Normocephalic, atraumatic, pupils equal round reactive to light, EOMI Neck: Supple no lymphadenopathy cardiac: Regular rate and rhythm, normal S1-S2, no murmurs rubs or gallops Lungs:wheezing to bilateral lung bookre without rales or rhonchi, no flail chest, no ecchymosis, no chest wall TTP, no crepitance abdomen: Soft, nontender, nondistended, normoactive bowel sounds, no peritoneal signs extremities: No cyanosis, no edema neuro: Cranial nerves II through XII grossly intact, moving all extremities equally, no focal deficits, gait is normal, 5 over 5 strength in upper and lower extremities, sensation intact bilateral upper and lower extremities, no cerebellar signs Sameera Gary MD 05/15/18 0946 ED NOTE Observed: 05/13/2018 Status: COMPLETED Source: [place] 9:49 PM [facility] REPOSITORY HNO ID: [id number] Author: Stephanie LaraRn) JANIE Atwood Service: Emergency Medicine Author Type: Registered Nurse Type: ED Notes Filed: 05/13/2018 9:49 PM Note Text: Pt sat up by Dr. Mcelroy ED NOTE Observed: 05/13/2018 Status: COMPLETED Source: [place] 9:48 PM [facility] REPOSITORY HNO ID: [id number] Author: Stephanie Armendariz) JANIE Atwood Service: Emergency Medicine Author Type: Registered Nurse Type: ED Notes Filed: 05/13/2018 9:48 PM Note Text: Patient's identity verified by patient stating name, Patient's identity verified by patient stating date, Patient's identity verified by hospital ID bracelet. Patient placed on painter foreman, patient placed on non-invasive blood pressure monitor, patient placed on continuous pulse oximetry. Alarms set and reviewed, patient tolerating monitoring. ED NOTE Observed: 05/13/2018 Status: COMPLETED Source: [place] 9:35 PM [facility] REPOSITORY HNO ID: [id number] Author: Case LaraRn) JANIE Grover Service: (none) Author Type: Registered Nurse Type: ED Notes Filed: 05/13/2018 9:35 PM Note Text: Bed: 20-ED Expected date: Expected time: Means of arrival: Comments: [facility] C/S URINE DRUG SCREEN Collected: 05/13/2018 Status: F Source: [place] ([place]) 8:20 PM [facility] REPOSITORY TYPE CODE TESTS RESULT OUT OF RANGE REFERENCE UNITS LAB L505.0075 TO BE Normal CONFIRMED Result Comment: CONFIRMATORY TESTING FOR ALL POSITIVE URINE DRUG SCREEN RESULTS WILL ONLY BE SENT OUT UPON PHYSICIAN ORDER. VISTA Urine Drug Screen methods provide only preliminary analytical test results. A more specific alternate chemical method must be used in order to obtain a confirmed analytical result. Gas chromatography/mass spectrometery (GC/MS) is the preferred confirmatory method. Clinical consideration and professional judgement should be applied to any drug of abuse test result, particularly when preliminary positive results are used. URINE TCA TESTING MUST BE ORDERED SEPARATELY. USE TEST MNEMONIC: [facility] LAB L505.5005 VISTA UDS PH 6 Normal LAB L505.5015 <1000 ng/mL AMPHETAMINES Normal NEGATIVE LAB L505.5025 < 200 ng/mL BARBITIURATES Normal NEGATIVE LAB L505.5035 < 200 ng/mL BENZODIAZIPINE Normal NEGATIVE LAB L505.5045 < 300 ng/mL COCAINE Normal NEGATIVE LAB L505.5055 < 500 ng/mL ECSTACY Normal NEGATIVE LAB L505.5065 < 300 ng/mL METHADONE Normal NEGATIVE LAB L505.5075 < 300 ng/mL OPIATES Normal NEGATIVE LAB L505.5085 < 25 ng/mL PCP Normal NEGATIVE LAB L505.5095 < 50 ng/mL THC Normal NEGATIVE Performed By: #### L505.5000 #### [facility] [address] [place] [address], [place], [address] TYPE AND SCREEN Collected: 05/13/2018 Status: F Source: [place] 8:10 PM [facility] REPOSITORY Order Comment: Reason for Type AND Screen/Red Cells: TRAUMA TYPE CODE TESTS RESULT OUT OF RANGE REFERENCE UNITS LAB B10.0800 O Normal BLOOD TYPE GEL NEGATIVE LAB B100.4000 Normal Antibody NEGATIVE Screen Performed By: #### B101.7450 #### [facility] [address] [place], [address] BRAIN/HEAD WITHOUT Observed: 05/13/2018 Status: F Source: [place] CONTRAST 7:54 PM [facility] REPOSITORY [facility] Imaging Services [address] [place] [address] Brain/Head without Contrast MR#: [id number] Acct: [id number] Name: JIGNESH RAMIRES Rep #: [id number] : 1950 M 67 From: Bony Myers DO PCP: Jose Maurer III, MD Status: PRE ER Study: Brain/Head without Contrast Date of Exam: 05/13/18 Exam# [id number] Ordering Dr: Case Strauss MD STUDY: CT BRAIN WITHOUT CONTRAST REASON FOR EXAM: Male, 67 years old. Trauma RADIATION DOSAGE (If Supplied By Facility): CTDIvol = ( 44.99 ) mGy, DLP = ( 779.24 ) mGycm TECHNIQUE: Transaxial CT imaging of the brain was performed without administration of intravenous contrast material. Individualized dose optimization techniques were used for this CT. COMPARISON: None. FINDINGS: Normal soft tissue structures. Normal calvarium. There is mild cerebral atrophy with widening of the extra- axial spaces and ventricular dilatation. There are areas of decreased attenuation within the white matter tracts of the supratentorial brain, consistent with microvascular disease changes. Normal basal ganglia and thalami. Normal brainstem. Normal cerebellum. There is no intracranial hemorrhage. There are no findings of an acute ischemic infarction. There is mucoperiosteal inflammatory disease of the paranasal sinuses consistent with mild chronic sinusitis. CT/Brain/Head without Contrast IMPRESSION: Chronic involutional changes of the brain. Electronically Signed: Bony Myers DO at 20:10 EDT Tel , Service support , CC: Case Strauss MD; Jose Maurer III, MD Outsewer: Signed SPINE CERVICAL Observed: 05/13/2018 Status: F Source: [place] WITHOUT CONTRAS 7:54 PM [facility] REPOSITORY [facility] Imaging Services [address] [place] [address] Spine Cervical without Contras MR#: [id number] Acct: [id number] Name: JIGNESH RAMIRES Rep #: [id number] : 1950 M 67 From: Bony Myers DO PCP: Jose Maurer III, MD Status: PRE ER Study: Spine Cervical without Contras Date of Exam: 05/13/18 Exam# [id number] Ordering Dr: Case Strauss MD STUDY: CT CERVICAL SPINE WITHOUT CONTRAST REASON FOR EXAM: Male, 67 years old. Trauma RADIATION DOSAGE (If Supplied By Facility): CTDIvol = ( 25.13 ) mGy, DLP = ( 487.86 ) mGycm TECHNIQUE: High resolution transaxial imaging was performed without contrast material. Sagittal and coronal images were reconstructed. Individualized dose optimization techniques were used for this CT. COMPARISON: None FINDINGS: Normal craniovertebral junction. Normal anterior atlantoaxial articulation. Normal odontoid process. Normal cervical lordosis. Normal vertebral bodies and posterior osseous elements. No acute fracture or listhesis. Normal mineralization. Mild multilevel degenerative disc disease. No critical central canal stenosis. Surrounding soft tissues are grossly within normal limits. Atherosclerotic disease of the carotid arteries. CT/Spine Cervical without Contras IMPRESSION: Multilevel degenerative changes, as described above. Electronically Signed: Bony Myers DO at 20:11 EDT Tel , Service support , CC: Case Strauss MD; Jose Maurer III, MD Outsewer: Signed CHEST WITH CONTRAST Observed: 05/13/2018 Status: F Source: [place] 7:54 PM [facility] REPOSITORY [facility] Imaging Services [address] [place] [address] Chest WITH Contrast MR#: [id number] Acct: [id number] Name: JIGNESH RAMIRES Rep #: [id number] : 1950 M 67 From: Bony Myers DO PCP: Jose Maurer III, MD Status: DEP ER Study: Chest WITH Contrast Date of Exam: 05/13/18 Exam# [id number] Ordering Dr: Case Strauss MD ADDENDUM by Bony Myers D.O. on 05/13/18 at 2112 ADDENDUM In addition, there are small nondisplaced left anterior third, fourth, fifth, sixth rib fractures. Electronically Signed: Bony Myers DO at 21:12 EDT Tel , Service support , 05/13/182111 Date cc: Case Strauss MD; Jose Maurer III, MD * Signed ADDENDUM by Bony Myers D.O. on 05/13/[address]/Chest WITH Contrast 05/13/182118 Date cc: Case Strauss MD; Jose Maurer III, MD * Signed STUDY: CT CHEST WITH CONTRAST REASON FOR EXAM: Male, 67 years old. Trauma. RADIATION DOSAGE (If Supplied By Facility): CTDIvol = ( 17.52 ) mGy, DLP = ( 1616.23 ) mGycm TECHNIQUE: Transaxial imaging was performed following intravenous administration of 100ml ml of Isovue 300 contrast material. Individualized dose optimization techniques were used for this CT. COMPARISON: None. FINDINGS: No acute airspace disease or pneumothorax. Spiculated nodule in the left upper lobe measuring 1.3 x 1.1 cm. There is no demonstrated pleural abnormality. Normal heart and pericardium. Left chest wall pacing device. Normal mediastinum. Normal hilar regions. Normal enhanced pulmonary arteries. There is atherosclerotic calcification of the aortic arch with tortuosity and elongation of the aortic arch and descending thoracic aorta. Nondisplaced right anterior fourth, fifth, sixth, seventh and eighth rib fractures. No evidence of left lateral rib fractures. No evidence of thoracic spine fracture or sternal fracture. CT/Chest WITH Contrast IMPRESSION: 1. Multiple nondisplaced hairline fractures of the right anterior ribs as above 2. No acute airspace disease or pneumothorax. Suspicious spiculated left upper lobe nodule. Malignancy cannot be excluded. Malignancy workup is recommended. Electronically Signed: Bony Myers DO at 20:36 EDT Tel , Service support , CC: Case Strauss MD; Jose Maurer III, MD Outsewer: Signed ABDOMEN/PELVIS W IV CONT Observed: 05/13/2018 Status: F Source: [place] ONLY 7:54 PM [facility] REPOSITORY [facility] Imaging Services [address] [place] [id number] Abdomen/Pelvis W IV Cont ONLY MR#: [id number] Acct: [id number] Name: JIGNESH RAMIRES Rep #: [id number] : 1950 M 67 From: Bony Myers DO PCP: Jose Maurer III, MD Status: REG ER Study: Abdomen/Pelvis W IV Cont ONLY Date of Exam: 05/13/18 Exam# [id number] Ordering Dr: Case Strauss MD STUDY: CT ABDOMEN AND PELVIS WITH CONTRAST REASON FOR EXAM: Male, 67 years old. Abdominal pain after fall RADIATION DOSAGE (If Supplied By Facility): CTDIvol = ( 17.52 ) mGy, DLP = ( 1616.23 ) mGycm TECHNIQUE: Transaxial images were obtained from the dome of the diaphragm to the symphysis pubis without oral contrast. 100ML ml of Isovue 300 contrast was administered. Sagittal and coronal images were reconstructed. Individualized dose optimization techniques were used for this CT. COMPARISON: None. FINDINGS: The visualized lung bases are unremarkable. The visualized portions of the heart are within normal limits. Normal liver. Normal gallbladder and extrahepatic biliary system. Normal spleen. Normal pancreas. Normal bilateral adrenal glands. Normal right kidney. Normal left kidney. Normal visualized stomach. Normal small intestine. There are multiple colonic diverticula consistent with diverticulosis. The appendix is visualized and appears normal. No evidence of retroperitoneal hemorrhage. Normal abdominal aorta. Normal inferior vena cava. Normal retroperitoneum. Prominent distention of the bladder. Query urinary retention. Normal visualized prostate gland. Normal abdominal wall. There are diffuse degenerative changes of the visualized lumbar spine. CT/Abdomen/Pelvis W IV Cont ONLY IMPRESSION: No acute traumatic findings of the abdomen or pelvis. Prominent distention of the bladder. Unsure if this represents urinary retention. Electronically Signed: Bony Myers DO at 20:38 EDT Tel , Service support , CC: Case Strauss MD; Jose Maurer III, MD Outsewer: Signed CBC W/DIFF, AUTOMATED Collected: 05/13/2018 Status: F Source: [place] 7:49 PM [facility] REPOSITORY TYPE CODE TESTS RESULT OUT OF RANGE REFERENCE UNITS LAB L100.1000 4.4-11.0 K/mm3 Normal WBC 9.3 LAB L100.1200 4.6-6.2 M/mm3 Low RBC 3.53 LAB L100.1300 13.0-16.5 g/dl Low HGB 11.5 LAB L100.1400 40-54 % Low HCT 33.5 LAB L100.1500 80-94 fL High MCV 94.9 LAB L100.1600 27.0-32.0 pg High MCH 32.6 LAB L100.1700 32-36 g/gl Normal MCHC 34.3 LAB L100.1810 11.6-14.6 % Normal RDW CV 14.0 LAB L100.1820 35.1-43.9 fl High RDW SD 47.7 LAB L100.1900 150-450 K/mm3 Normal PLT 187 LAB L100.2000 6.2-12.0 fl Normal MPV 8.6 LAB L100.2100 47-70 % High NEUT% 71.4 LAB L100.2200 19-41 % Low LY% 16.7 LAB L100.2300 0-10 % Normal MONO% 9.9 LAB L100.2400 0-5 % Normal EO% 0.5 LAB L100.2500 0-1 % Normal BASO% 0.2 LAB L100.2550 0.0-0.9 % High IM GRAN % 1.300 Result Comment: IG% - Immature Granulocytes (promyelocytes, myelocytes and metamyelocytes) > 1% indicates that a LEFT SHIFT is Present. LAB L100.2620 2.0-7.7 X10 3/uL Normal Absolute Neut 6.7 LAB L100.2720 0.83-4.51 X10 3/ul Normal Absolute Lymph 1.56 Performed By: #### L100.0100 #### [facility] [address] [place], [place], [address] PROTHROMBIN TIME W/INR Collected: 05/13/2018 Status: F Source: [place] 7:49 PM [facility] REPOSITORY TYPE CODE TESTS RESULT OUT OF RANGE REFERENCE UNITS LAB L300.4150 11.7-14.9 SECONDS High PROTIME 15.8 LAB L300.4200 Normal INR 1.3 Performed By: #### L300.3900, L300.4310 #### [facility] [address] [place], [address] PARTIAL THROMBOPLAST Collected: 05/13/2018 Status: F Source: [place] TIME 7:49 PM [facility] REPOSITORY TYPE CODE TESTS RESULT OUT OF RANGE REFERENCE UNITS LAB L300.4310 24.1-36.2 Seconds Normal PTT 32.1 Performed By: #### L300.3900, L300.4310 #### [facility] [address] [place], [address] BASIC METABOLIC Collected: 05/13/2018 Status: F Source: [place] PROFILE (BMP) 7:49 PM [facility] REPOSITORY TYPE CODE TESTS RESULT OUT OF RANGE REFERENCE UNITS LAB L501.0100 74-106 mg/dL High GLU 115 Result Comment: Fasting Glucose result from 100 to 125 mg/dL suggests IMPAIRED HOMEOSTASIS per A.D.A. criteria. Please note revised GLUCOSE reference range effective 2017. LAB L501.1000 7-18 mg/dL Normal BUN 18 LAB L501.1100 0.70-1.30 mg/dL Low CREAT,SERUM 0.68 Result Comment: The validity of the calculated GFR AND GFRAA in patients over 70 years has not been determined. Clinical correlation is essential. LAB L501.1110 >60 mL/min Normal EST GFR 123 Result Comment: Non- GFR Calc LAB L501.1115 >60 mL/min Normal EST GFR - AA 149 Result Comment: GFR Calc LAB L501.1255 ml/min Normal Estimated CRCL 62.35 LAB L501.1300 10-20 RATIO High BUN/CRE 26.4 LAB L501.2200 8.5-10 mg/dL Low .1 CA 8.3 LAB L501.5300 136-14 mmol/L Low 5 NA 124 LAB L501.5600 3.5-5. mmol/L Low 1 K 3.3 LAB L501.5900 98-107 mmol/L Low CL 84 LAB L501.6100 21.0-3 mmol/L Normal 2.0 CO2 29.0 LAB L501.6200 5-15 Normal GAP 11 Performed By: #### L500.2500 #### [facility] [address] [facility] [place], [place], [address] ALCOHOL, BLOOD Collected: 05/13/2018 Status: F Source: [place] (MEDICAL)-SERUM 7:49 PM [facility] REPOSITORY TYPE CODE TESTS RESULT OUT OF RANGE REFERENCE UNITS LAB L501.9100 mg/dL Normal SERUM 222.0 ETOH Result Comment: The serum:whole blood ethanol ratio is approximately 1.14 and varies slightly with hematocrit. Medical Alcohol reference interval and critical value in non-tolerant individuals; 50 - 100 Impairment 100 Intoxication 100 - 250 Severe Poisoning 250 - 400 Deep/possible fatal coma Performed By: #### L501.9100 #### [facility] [address] [facility] [place], [place], [address] BEDSIDE GLUCOSE Collected: 05/13/2018 Status: F Source: [place] 7:46 PM [facility] REPOSITORY TYPE CODE TESTS RESULT OUT OF REFERENCE UNITS RANGE LAB L501.080 70-110 mg/dL High BEDSIDE GLU 126 Result Comment: MANAGEMENT OF PATIENT CARE PER NURSING PROTOCOL Performed By: #### L501.080 #### [facility] Point of Care [address] [place], [place] [address] PULMONARY VISIT REPORT Observed: 05/13/2018 Status: F Source: [place] 9:42 AM [facility] REPOSITORY [facility] [address] [place], [place] [address] OFFICE VISIT Date of Service: 05/13/18 MR#: [id number] Acct: [id number] Name: JIGNESH RAMIRES Rep #: [id number] : 1950 Provider: Cheryl Schaeffer Age/Sex: 67/M [place] [facility] [place]: Signed Assessment AND Plan 1. Severe chronic obstructive pulmonary disease J44.9 Plan Continue to use inhaler therapy as prescribed Continue with prednisone taper Follow good handwashing hygiene to prevent acute infections or exacerbation of COPD After prednisone taper is complete, obtain flu vaccine (approx 2-weeks after completing prednisone) If any changes to current condition occur, call the office so that an office visit can be scheduled Keep previously scheduled routine follow up 2. Chest congestion R09.89 Plan Continue to use mucinex as directed Follow good handwashing hygiene Call the office to report any increase in symptoms including change of sputum color. 3. Acute and chronic respiratory failure with hypoxia J96.21 Plan Continue with current medication treatment including inhalers, titrate supplemental oxygen as needed to maintain saturations 89-92%, he using and benefiting from supplemental oxygen. Report any changes to current symptoms including increased need for higher levels of supplemental oxygen Follow good hand hygiene Obtain flu vaccine HPI Cough: Chief Complaint: shortness of breath on exertion Details: HPI Comments Details: This is a 67-year-old male that is here for follow up after being treated for an exacerbation with mucinex for complaints of chest congestion. He is using supplemental oxygen 3-4 liters depending upon activity level. Ambulates without use of walker or cane. Conversant without need to use oxygen during office visit. Denies fever or chills. Does state that he continues to experience chest congestion, but since using mucinex twice daily he is able to expectorate chest secretions which are and have always been clear in color. He states that he continues on prednisone taper which will be completed on ThursdayMay 17. He uses his inhalers as prescribed. He denies any medication side effects such as sore throat or thrush. Patient states that he may use his rescue inhaler once a day, most often right before he begins his job at the [employer] where he works 20 hours/week. He denies experiencing chest discomfort. Patient is planning 2 weeks vacation in [place] next week. Exercises daily at [facility] first thing of the day. He states that it makes him feel better, and he believes it is extending his life, and fights off his chronic illness. Intake Vital Signs05/13/18 Height 5 ft 9 in 05/13/18 Weight: 157 lb Intake Visit Reasons: Cough DME Vendor: Tabatha Accompanied by: Self Allergies No Known Allergies Allergy (Verified 05/03/18 11:46) Medications Aclidinium [place] [Tudorza Pressair] 400 mcg IH BID 08/27/16 [History Confirmed 04/28/18] Hydroxychloroquine [Plaquenil] 200 mg PO BIDCM 08/27/16 [History Confirmed 04/28/18] Multivitamin [Multiple Vitamins] 1 ea PO DAILY 08/27/16 [History Confirmed 04/28/18] Omeprazole Magnesium 20 mg PO DAILY 08/27/16 [History Confirmed 04/28/18] Atorvastatin Calcium [Lipitor] 40 mg PO QHS #30 tab 08/31/16 [Rx Confirmed 04/28/18] furosemide 40 mg tablet 40 mg PO BID #180 tab 09/18/17 [Rx Confirmed 04/28/18] aspirin 81 mg chewable tablet 81 mg PO .QOD tab 10/15/17 [History Confirmed 04/28/18] carvedilol 6.25 mg tablet 6.25 mg PO BID 10/15/17 [History Confirmed 04/28/18] cholecalciferol (vitamin D3) 2,000 unit capsule 2,000 unit PO BID cap 10/15/17 [History Confirmed 04/28/18] fluticasone 50 mcg/actuation nasal spray,suspension 2 spray INTRANASAL BID g 10/15/17 [History Confirmed 04/28/18] levothyroxine 25 mcg capsule 25 mcg PO QDAY cap 10/15/17 [History Confirmed 04/28/18] losartan 50 mg tablet 50 mg PO QDAY 10/15/17 [History Confirmed 04/28/18] budesonide-formoterol HFA 160 mcg-4.5 mcg/actuation aerosol inhaler 2 puff INHALATION BID #3 device 01/13/18 [Rx Confirmed 04/28/18] warfarin 5 mg tablet 5 mg PO .COMPLEX tab 02/09/18 [History Confirmed 04/28/18] albuterol sulfate 2.5 mg/3 mL (0.083 %) solution for nebulization 2.5 mg INHALATION Q6HWA.RT #180 vial 03/03/18 [Rx Confirmed 04/28/18] albuterol sulfate HFA 90 mcg/actuation aerosol inhaler 2 puff INHALATION Q4H PRN PRN #18 g 03/30/18 [Rx Confirmed 04/28/18] azithromycin 250 mg tablet See Rx Instructions PO .COMPLEX #6 tab 05/03/18 [Rx Confirmed 05/03/18] guaifenesin ER 1,200 mg tablet, extended release 12 hr 1,200 mg PO Q12H #30 tab 05/06/18 [Rx] prednisone 10 mg tablet 10 mg PO QDAY #30 tab 05/06/18 [Rx] PFSH Medical History Left ventricular thrombus (Acute) Nonischemic cardiomyopathy (Chronic) Severe left ventricular systolic dysfunction (Chronic) 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) PVD (peripheral vascular disease) (Chronic) Stage 3 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) PND (paroxysmal nocturnal dyspnea) (Chronic) Hyperlipidemia (Chronic) 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) Acute on chronic respiratory failure with hypoxia (Resolved) Psoriatic arthritis (Chronic) CHF (congestive heart failure), NYHA class I (Chronic) Pulmonary hypertension (Chronic) CAP (community acquired pneumonia) (Resolved) Chronic respiratory failure with hypoxia and hypercapnia (Resolved) Surgical History Implantable cardioverter-defibrillator (ICD) in situ (Chronic 12/27/16) History of left heart catheterization (Chronic) Family History Mother Heart disease Brother CVA (cerebral vascular accident) Father Cancer brain Grandmother Diabetes Social History Smoking Status: Former smoker how long ago did patient quit smokin, 1.5p/day second hand exposure: Yes alcohol intake: never substance use type: does not use caffeine: Yes Type: coffee Number of servings: 2 what type of physical activity do you participate in: walking frequency: 3-4 times per week FEV1% FEV1%: 31 Review of Systems Const CONSTITUTIONAL: Negative anorexia, body ache, chills, daytime sleepiness, fever(s), night sweats, oral thrush, stops breathing during sleep, weight loss, sleeping in chair, fatigue, weight loss, weight gain, frequent colds, seasonal allergies, other, headache(s) or orthopnea EETM Ear Nose Throat Mouth: Positive hearing normal; negative hard of hearing, hoarseness, dry mouth in morning, change in vision, itchy eyes, eye pain, swallowing Difficulty, ear pain, nose bleed, headache(s), mouth pain, nasal congestion, nasal discharge, post nasal drip, sinus pain, sinus pressure, sore throat or other Cardio Cardiovascular: Negative chest pain, chest pain at rest, chest pain with activity, irregular heart rhythm, edema, shortness of breath when lying down, palpitations, murmur or other Resp Respiratory: Positive as per HPI, shortness of breath shortness of breath: Positive with activity and cough cough: Positive productive color: Positive clear; negative pain with cough, wheezing, chest congestion, chest tightness, pain on inspiration, inhalers, increase use of rescue inhalers, snoring, apnea or other Gastro Gastrointestional: Negative bloody stools, change in appetite, difficulty swallowing, reflux, hematemesis, melena stool, loose stool, constipation or other Genitourinary: Negative blood in urine, nocturia, pain with urination or other Musc Musculoskeletal: Negative body pain, back pain, neck pain or other Skin/Breast Skin/Breast: Negative dry skin, itching, rash, unusual bruising, breast lump or other Neuro Neurological: Negative restless legs, confusion, weakness or other Psych Psychocological: Negative abnormal sleep pattern, anxiety, thoughts of hurting self/others, hopelessness or other Lymph Lymphatic: Negative easy bleeding, easy bruising, swollen lymph nodes or other Exam Const Constitutional: Positive conversant, cooperative, in no acute respiratory distress, frail appearing and wearing supplemental oxygen Head Head: Positive normocephalic and atraumatic; negative cyanosis of lips/distal nose Eyes Eye: Positive clear conjunctiva; negative scleral abnormality Ears Ear: Positive hearing normal and external ears normal; negative hard of hearing Nose Nose: Positive external nose normal, septum normal and clear nasal discharge; negative epistaxis Mouth Mouth: Positive oral mucosae normal; negative post nasal drip or oral thrush present Neck Neck: Positive normal visual inspection, full ROM and trachea midline Chest Wall Chest: Positive symmetric chest movement and increased A/P diameter Resp lung sounds: Positive clear to auscultation, diminished, prolonged expiratory time and normal chronic state of increased work of breathing; negative wheezes, wheeze present on forced exhalation, rhonchi, rales or dullness to percussion Cardio Cardiac: Positive regular rate and regular rhythm; negative murmur GI GI: Positive normal to inspection and normal bowel sounds Genitourinary: Positive deferred Musc Musculoskeletal: Positive steady gait and ROM normal Skin Pulmonary Skin Exam: Positive intact and other (bruising upper and lower extremities); negative rash Pulses Pulse: Yes pulses normal x4 extremities Extremities Extremities: Yes capillary refill normal, No cyanosis, No edema Neuro Neurologic: Yes conversant, Yes no focal neuro deficits, Yes cooperative, Yes normal cognition Lymph Lymphatic: No lymphadenopathy, No tenderness, No cervical adenopathy Psych Appearance: Positive grossly normal and well kempt Mental Status: Positive mental status grossly normal Mood: Positive congruent mood Affect: Positive normal affect Coding Level of Care Code Off vis,est,level 3 Diagnoses Severe chronic obstructive pulmonary disease J44.9 Chest congestion R09.89 Acute and chronic respiratory failure with hypoxia J96.21 05/13/18 0942 <Electronically signed by Cheryl JOHNSTON> Date Cheryl JOHNSTON Cosigner Signature: Date (if applicable) CC: Jose Maurer III, MD PROTHROMBIN TIME W/INR Collected: 05/11/2018 Status: F Source: [place] 6:50 AM [facility] REPOSITORY TYPE CODE TESTS RESULT OUT OF RANGE REFERENCE UNITS LAB L300.4150 11.7-14.9 SECONDS High PROTIME 17.4 LAB L300.4200 Normal INR 1.4 Performed By: #### L300.3900 #### [facility] [address] [place], [place], [address] PROTHROMBIN TIME W/INR Collected: 05/04/2018 Status: F Source: [place] 6:48 AM [facility] REPOSITORY TYPE CODE TESTS RESULT OUT OF RANGE REFERENCE UNITS LAB L300.4150 11.7-14.9 SECONDS High PROTIME 23.3 LAB L300.4200 Normal INR 2.1 Performed By: #### L300.3900 #### [facility] [address] [place], [place], [address] CARDIOLOGY VISIT Observed: 05/03/2018 Status: F Source: [place] REPORT 11:58 AM [facility] REPOSITORY [facility] [address] [place] [address] OFFICE VISIT Date of Service: 05/03/18 MR#: [id number] Acct: [id number] Name: JIGNESH RAMIRES Rep #: [id number] : 1950 Provider: Case Florian MD Age/Sex: 67/M Location[place] [facility] [place] Status: Signed HPI HPI Chief Complaint: Routine f/u Details: Referring physician: Dr. Maurer Mr. Ramires is a very pleasant 67-year-old nondiabetic gentleman, with COPD, hypertension, hypercholesterolemia, who presented with new onset heart failure on 08/29/16 to [facility]. At that time echocardiogram was performed which showed severe LV dysfunction with EF of 25% with moderate pulmonary hypertension. Patient underwent IV diuresis followed by diagnostic coronary angiogram which demonstrated angiographically normal coronary arteries with minimal nonobstructive disease, confirmed LV dysfunction of 15-20% with moderate elevated LVEDP. Incidentally the patient was found to have moderate non nonobstructive peripheral vascular disease of his right and left common iliac arteries as well as his right left external iliac arteries. The patient underwent outpatient PVRs which illustrated significant bilateral lower extremity vascular compromise. He has been referred to Dr. Giuliano Maurer, who recommended medical management for now. He has had no claudication symptoms. The patient is now here in office for follow-up. He denies any chest pain, angina, shortness of breath or dyspnea on exertion. He is taking and tolerating his medicines well. He did have one episode of COPD several months ago which was treated with prednisone is completely resolved. He denies any AICD discharges. AICD interrogation demonstrated no V. tach. He is taking and tolerating his medicines well. Patient has been stable on his Coumadin for LV thrombus prophylaxis, and he denies any lower extremity edema. He is on chronic O2 therapy and sees Dr. Rodríguez. Since her last visit, the patient has been doing fairly well, exercising at [employer] 2 days a week, and pulmonary rehab on 2 days a week. He denies any lower extremity edema, or deterioration in his exercise capacity. The last week, the patient has had fevers, chills, cough and a begun, and decreased energy level. He had a similar COPD exacerbation in February 2018 at which time he received a Z-Sharad and prednisone. He denies any lower extremity edema, chest pain, or AICD discharges. His most recent echocardiogram dated 12/16/17 showing marked improvement of his EF to around 45-50%, with an RVSP of around 42 mmHg. In our office his blood pressure is 140/70, and pulse is 76 and regular. His physical exam demonstrates distant breath sounds bilaterally with faint bilateral late expiratory, regular rate and rhythm, normal S1/S2. His lipids as of 08/28/16 show no LDL of 27 and an HDL of 95. His lipids as of 10/08/17 show an LDL of 11 and HDL of 138. His repeat lipids as of 04/06/18 showing LDL of 18 and HDL of 145. Intake Vital Signs05/03/18 Height 5 ft 9 in 05/03/18 Weight: 161 lb 05/03/18 Body Mass Index (BMI) 23.8 05/03/18 Blood Pressure 140/70 Intake Visit Reasons: 6 M FU 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: No Is patient in pain?: No Allergies No Known Allergies Allergy (Verified 05/03/18 11:46) Medications Aclidinium [place] [Tudorza Pressair] 400 mcg IH BID 08/27/16 [History Confirmed 04/28/18] Hydroxychloroquine [Plaquenil] 200 mg PO BIDCM 08/27/16 [History Confirmed 04/28/18] Multivitamin [Multiple Vitamins] 1 ea PO DAILY 08/27/16 [History Confirmed 04/28/18] Omeprazole Magnesium 20 mg PO DAILY 08/27/16 [History Confirmed 04/28/18] Atorvastatin Calcium [Lipitor] 40 mg PO QHS #30 tab 08/31/16 [Rx Confirmed 04/28/18] furosemide 40 mg tablet 40 mg PO BID #180 tab 09/18/17 [Rx Confirmed 04/28/18] aspirin 81 mg chewable tablet 81 mg PO .QOD tab 10/15/17 [History Confirmed 04/28/18] carvedilol 6.25 mg tablet 6.25 mg PO BID 10/15/17 [History Confirmed 04/28/18] cholecalciferol (vitamin D3) 2,000 unit capsule 2,000 unit PO BID cap 10/15/17 [History Confirmed 04/28/18] fluticasone 50 mcg/actuation nasal spray,suspension 2 spray INTRANASAL BID g 10/15/17 [History Confirmed 04/28/18] levothyroxine 25 mcg capsule 25 mcg PO QDAY cap 10/15/17 [History Confirmed 04/28/18] losartan 50 mg tablet 50 mg PO QDAY 10/15/17 [History Confirmed 04/28/18] budesonide-formoterol HFA 160 mcg-4.5 mcg/actuation aerosol inhaler 2 puff INHALATION BID #3 device 01/13/18 [Rx Confirmed 04/28/18] warfarin 5 mg tablet 5 mg PO .COMPLEX tab 02/09/18 [History Confirmed 04/28/18] albuterol sulfate 2.5 mg/3 mL (0.083 %) solution for nebulization 2.5 mg INHALATION Q6HWA.RT #180 vial 03/03/18 [Rx Confirmed 04/28/18] albuterol sulfate HFA 90 mcg/actuation aerosol inhaler 2 puff INHALATION Q4H PRN PRN #18 g 03/30/18 [Rx Confirmed 04/28/18] azithromycin 250 mg tablet See Label Instructions PO .COMPLEX #6 tab 05/03/18 [Rx Confirmed 05/03/18] PFSH Medical History Left ventricular thrombus (Acute) Nonischemic cardiomyopathy (Chronic) Severe left ventricular systolic dysfunction (Chronic) 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) PVD (peripheral vascular disease) (Chronic) Stage 3 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) PND (paroxysmal nocturnal dyspnea) (Chronic) Hyperlipidemia (Chronic) SOB (shortness of breath) (Acute) assisted current use of anticoagulant (Chronic) Acute on chronic respiratory failure with hypoxia (Resolved) Psoriatic arthritis (Chronic) CHF (congestive heart failure), NYHA class I (Chronic) Pulmonary hypertension (Chronic) CAP (community acquired pneumonia) (Resolved) Chronic respiratory failure with hypoxia and hypercapnia (Resolved) Surgical History Implantable cardioverter-defibrillator (ICD) in situ (Chronic 12/27/16) History of left heart catheterization (Chronic) Family History Mother Heart disease Brother CVA (cerebral vascular accident) Father Cancer brain Grandmother Diabetes Social History Smoking Status: Never smoker how long ago did patient quit smokin, 1.5p/day second hand exposure: Yes alcohol intake: never substance use type: does not use caffeine: Yes Type: coffee Number of servings: 2 what type of physical activity do you participate in: walking frequency: 3-4 times per week ROS Const Const: Positive for other (Thinks he is catching a cold); negative for body ache, fever(s), chills, night sweats, daytime sleepiness, difficulty sleeping, weight gain, weight loss, increased appetite, poor appetite, anorexia, fatigue, excessive sweating, weakness, headache(s) or frequent falls Eyes Eyes: Negative for blind spots, loss of peripheral vision, transient loss of vision, change in vision, floaters, tunnel vision, other, blurry vision or double vision ENT ENT: Negative for hearing loss, tinnitus, Nosebleed/epistaxis, post nasal drip, bleeding gums, hoarseness, neck pain, dry mouth, other, balance problems, headache(s), dizziness, lip swelling or tongue swelling Cardio Chest Pain: No Palpitations: No Edema: None Muscle aches with walking: None Resp Respiratory: Positive for SOB with activity (wears oxygen 3 liters N/C, 4 liters when active) and Cough (clear sputum); negative for SOB at rest, SOB orthopnea\SOB lying down, Coughing up blood/hemoptysis, chest congestion, pain on inspiration, snoring, stridor, wheezing, crackles, paroxysmal nocturnal dyspnea or other GI GI: Negative nausea, vomiting, heartburn, constipation, belching, bloating, cramping, vomiting blood/hematemesis, bright, red blood in stools, black,tarry stools, loose stools, Difficulty Swallowing or other : Negative for hematuria, frequent nighttime urination/ nocturia, erectile dysfunction or abnormal vaginal bleeding Musc Musc: Negative for balance problems, muscle aches/ myalgia, muscle weakness or joint pain Skin Skin: Negative redness, non-healing lesions, unusual bruising, skin ulcer, wounds, jaundice, other or rash Neuro Neuro: Negative for weakness, headache(s), frequent falls, blurry vision, double vision, dizziness, lightheadedness, near syncope, syncope, orthostatic symptoms, confusion, memory loss, restless legs, vertigo, seizures, lack of coordination or other Yash Hematologic/Lymphatic: Negative for easy bleeding, easy bruising, enlarged lymph nodes or other Endo Endo: Negative for fatigue, excessive sweating, cold intolerance, heat intolerance, flushing, increased thirst/drinking, increased hunger, hair loss, hair growth or other Psych Psych: Negative for anxiety, depression, thoughts of harming anyone, thoughts of harming yourself, visual hallucinations, panic attacks or audible hallucinations Allergy Allergy/Immunology: Negative for lip swelling, Negative for tongue swelling, Negative for rash, Negative for throat swelling, Negative for hives Cardiology Exam Const Appearance: cooperative, healthy appearing and no acute distress Nutritional Appearance: well nourished Orientation: alert, oriented x3 and oriented to person Head Head: normal to inspection, atraumatic and normocephalic Nose: external nose normal Face and Sinus: face symmetric Mouth: oral mucosae normal Eyes General: appearance normal, both eyes and all related structures Eyelids: eyelids normal Conjunctivae: conjunctivae normal Pupils: PERRL and normal by confrontation EOM: EOM intact bilaterally Neck Neck: normal visual inspection and full ROM Carotids: normal carotid upstroke Chest Chest inspection: normal inspection of the chest Auscultation: Bilateral: Clear to Auscultation Cardio Palpation: normal PMI Rate: regular rate Rhythm: regular rhythm Heart sounds: S1 normal and S2 normal GI GI: normal to inspection, no hepatosplenomegaly and bowel sounds present Neuro General: alert, oriented x3, awake, CN's II-XI intact bilaterally and moves all extremities Skin Skin: no rashes or lesions noted Extremities Pulses: Normal: Right Femoral Pulse, Left Femoral Pulse, Right Dorsalis Pedis Pulse, Left Dorsalis Pedis Pulse, Right Posterior Tibial Pulse, Left Posterior Tibial Pulse, Right Radial Pulse, Left Radial Pulse Lower Extremity Edema: None: Bilateral Psych Psychological: normal affect Assessment AND Plan 1. Nonischemic cardiomyopathy I42.8 EF 15-20% per heart cath 08/29/2016; 20-35% per echo 12/17/2016 Plan 1. Nonischemic cardiomyopathy: The patient had minimal if any coronary artery disease by catheterization and shows marked improvement of his LV function with medication therapy, exercise, and avoidance of tobacco abuse. His EF has improved around 45-50% and he has had no defibrillator discharges. Blood pressure and heart rate are fairly well-controlled. I recommended he continue his current dose of baby aspirin, Coreg, Lasix and losartan. I encouraged him to continue to exercise. Patient be treated with a Z-Sharad for his suspected bronchitis on today's exam. If this does not improve I advised the patient to make an appointment with Dr. Rodríguez. Continue O2 therapy. In addition he will continue his Coumadin therapy for his pulmonary hypertension and history of LV thrombus. 2. Hyperlipidemia E78.5 Plan 2. Hyperlipidemia: His LDL and HDL cholesterol are at goal. Continue Lipitor. 3. Return office in 6 months. This note was generated using a voice recognition system and there may be incorrect words, spelling or punctuation that were not noted when reviewing the office note prior to saving. Plan Detail Other Medications New: azithromycin (Zithromax Z-Sharad) take 500 mg today (day 1), then 250 mg for 4 days (days 2-5 ) PO Follow Up +6M (Óscar) Coding Level of Care Code Off vis,est,level 3 Diagnoses Nonischemic cardiomyopathy I42.8 Hyperlipidemia E78.5 Coding Level of Care Code Off vis,est,level 3 Diagnoses Nonischemic cardiomyopathy I42.8 Hyperlipidemia E78.5 05/03/18 1158 <Electronically signed by Case Florian MD> Date Case Florian MD Cosigner Signature: Date (if applicable) CC: Jose Maurer III, MD PROTHROMBIN TIME W/INR Collected: 04/20/2018 Status: F Source: [place] 6:58 AM [facility] REPOSITORY Order Comment: CRITICAL VALUE VERIFIED. CALLED TO [facility] 04/20/18 0839 Shelia Robbins. RESULTS READ BACK BY [facility] . TYPE CODE TESTS RESULT OUT OF REFERENCE UNITS RANGE LAB L300.4150 11.7-14.9 SECONDS High PROTIME 37.4 LAB L300.4200 High alert INR 3.8 Performed By: #### L300.3900 #### [facility] [address] [place], [address] PROGRESS Observed: 04/06/2018 Status: COMPLETED Source: [place] 7:22 PM [facility] [place] REPOSITORY O ID: [id number] Author: Jose Maurer III Service: (none) Author Type: Physician Type: Progress Notes Filed: 04/06/2018 7:22 PM Note Text: Jamil, The bad LDL cholesterol is well controlled. I recommend healthy diet and regular exercise. Jose Maurer III, MD, FAAFP PROTHROMBIN TIME W/INR Collected: 04/06/2018 Status: F Source: [place] 6:55 AM [facility] REPOSITORY TYPE CODE TESTS RESULT OUT OF RANGE REFERENCE UNITS LAB L300.4150 11.7-14.9 SECONDS High PROTIME 33.5 LAB L300.4200 Normal INR 3.3 Performed By: #### L300.3900 #### [facility] [address] [place], [place], [address] LIVER PROFILE Collected: 04/06/2018 Status: F Source: [place] 6:51 AM [facility] REPOSITORY TYPE CODE TESTS RESULT OUT OF RANGE REFERENCE UNITS LAB L501.1500 6.4-8.2 g/dL Normal T PROT 7.6 LAB L501.1800 3.2-5.0 g/dL Normal ALB 3.7 LAB L501.1950 2.2-4.2 g/dL Normal GLOB 3.9 LAB L501.4100 15-37 U/L High AST 49 LAB L501.4305 45-117 U/L Normal ALK P 52 LAB L501.4405 16-61 U/L Normal ALT 42 LAB L501.4600 0.20-1.00 mg/dL Normal T BILI 0.60 LAB L501.4700 0.00-0.30 mg/dL Normal D BILI 0.25 Performed By: #### L500.3400, L500.4100 #### [facility] [address] [place], [place], [address] LIPID PROFILE Collected: 04/06/2018 Status: F Source: [place] 6:51 AM [facility] REPOSITORY TYPE CODE TESTS RESULT OUT OF RANGE REFERENCE UNITS LAB L501.4900 200 mg/dL Normal CHOL 180 Result Comment: <200 mg/dL Desirable 200-240 mg/dL Borderline >240 mg/dL High Risk LAB L501.5000 mg/dL Normal TRIG 86 Result Comment: The drugs N-Acetylcysteine and Metamizole may falsely depress this assay. Serum Triglycerides Reference Interval Normal <150 mg/dL Borderline high 150 - 199 mg/dL High 200 - 499 mg/dL Very High > or = 500 mg/dL LAB L501.6400 mg/dL Normal HDL 145 Result Comment: The drugs N-Acetylcysteine and Metamizole may falsely depress this assay. Reference Range HDL <40 mg/dL Low HDL Cholesterol HDL >or= 60 mg/dL High HDL Cholesterol LAB L501.6500 0-130 mg/dL Normal LDL 18 LAB L501.6600 5-40 mg/dL Normal VLDL 17 Performed By: #### L500.3400, L500.4100 #### [facility] [address] [place], [address] PULMONARY VISIT REPORT Observed: 03/30/2018 Status: F Source: [place] 9:14 AM [facility] REPOSITORY [facility] [place] [address] [place] [address] OFFICE VISIT Date of Service: 03/30/18 MR#: [id number] Acct: [id number] Name: JIGNESH RAMIRES Rep #: [id number] : 1950 Provider: Cheryl Schaeffer Age/Sex: 67/M [place] [facility] [place] Status: Signed Assessment AND Plan 1. Stage 3 severe COPD by GOLD classification J44.9 Plan Does not appear to be an exacerbation of COPD today. No need for prednisone or antibiotic. Continue current maintenance medication. No additional testing at this time. Contact the office for any new or worsening symptoms. An acute visit and typically be arranged within 1-2 days. Follow-up in 3 months. 2. Pulmonary hypertension I27.20 Plan Stable. Continue supplemental oxygen as needed to maintain saturations 89-92%. Follow-up with Dr. Rodríguez in 3 months. 3. Acute and chronic respiratory failure with hypoxia J96.21 Plan The patient is using and benefiting from oxygen. Continue to utilize to maintain a saturation of 89-92%. Continue noninvasive ventilator with sleep and as needed for rescue. He is using and benefiting from noninvasive ventilation. Follow-up in 3 months. Plan Detail Other Medications New: Follow Up 3 Months ([facility]) HPI 3 M FU: Chief Complaint: Shortness of breath on exertion HPI Comments Details: Patient stated with the ATB and prednisone he was given since last visit he feels really good. He is now walking over here from the main part of the hospital without problem. Still some SOB when he over does it. Currently off O2 while sitting. This is a 67 year old very pleasant m, currently under the care of Jose Maurer, here to follow up on moderately severe chronic obstructive pulmonary disease with a LEBRON index score of 5, and chronic hypoxic and hypercapnic respiratory failure. JIGNESH was recently treated with antibiotics and prednisone, but has not been treated in the ED/Urgent care for respiratory problems since the last office visit. Current medications consist of Symbicort, and Pro Air rescue inhaler which is being used sometimes daily. Medication side effects: negative for sore throat, thrush, hoarseness, mouth lesions, or bleeding from nose or mouth. The patient reports compliance with rinsing mouth out after each use. Current home oxygen use is 3 LPM on ambulation and noninvasive ventilator for sleep. Today, he reports that since completing the antibiotic and prednisone he has returned to his baseline respiratory status. He continues to experience shortness of breath, but it is now only on exertion. He reports occasional wheezing and chest tightness, which are temporarily relieved with the use of albuterol nebulizer. He denies any cough, sputum production or hemoptysis. He is not experiencing any fever, chills or body aches. See complete review of systems. COPD checklist: Last PFTs were done on November 17, 2017 FVC is 70 % of predicted FEV1 is 31 % of predicted FEV1/FVC is 33% predicted Currently smoking 0 PPD Dyspnea 2 Exacerbations in the past 12 months >2 Last 6 min walk April 16, 2017, ambulated 966 feet, requires 3 L/min during ambulation Nutrition good Mood good Influenza vaccine pending Pneumococcal vaccine current Pulmonary Rehab current *The GOLD (Global initiative on Obstructive Lung Disease) divides COPD into 4 categories based on the FEV1: I FEV1/FVC <0.7 and FEV1 <80% II FEV1/FVC <0.7 and FEV1 50-80% III FEV1/FVC <0.7 and FEV1 30-50% IV FEV1/FVC <0.7 and FEV1 <30% (or < 50% with respiratory failure) GOLD additionally stratifies patients by disease severity in order to guide therapy: A FEV1 >50% with few symptoms B FEV1 >50% with frequent symptoms C FEV1 <50% with few symptoms D FEV1 <50% with frequent symptoms Variable points on LEBRON Index 0 1 2 3 Fev1 [] % of predicted 65 50-64 36-49 <35 Distance walked in 6 min >6467 [phone] <149 MMRC dyspnea scale* 0-1 2 3 4 BMI >21 <21 LEBRON Index Score 0-2 2% 6% 19% 3-4 2% 8% 32% 4-6 2% 14% 40% 7-10 5% 31% 80% MMR SCALE Grade Degree of breathlessness related to activities 0 Not troubled by breathlessness except on strenuous exercise Intake Vital Signs08/14/18 Height 5 ft 9 in 03/30/18 Weight: 153 lb 4 oz Intake Visit Reasons: 3 M FU [facility] Vendor: Tabatha Accompanied by: Self Allergies No Known Allergies Allergy (Verified 03/30/18 07:18) Medications Aclidinium [place] [Tudorza Pressair] 400 mcg IH BID 08/27/16 [History Confirmed 03/30/18] Hydroxychloroquine [Plaquenil] 200 mg PO BIDCM 08/27/16 [History Confirmed 03/30/18] Multivitamin [Multiple Vitamins] 1 ea PO DAILY 08/27/16 [History Confirmed 03/30/18] Omeprazole Magnesium 20 mg PO DAILY 08/27/16 [History Confirmed 03/30/18] Atorvastatin Calcium [Lipitor] 40 mg PO QHS #30 tab 08/31/16 [Rx Confirmed 03/30/18] furosemide 40 mg tablet 40 mg PO BID #180 tab 09/18/17 [Rx Confirmed 03/30/18] aspirin 81 mg chewable tablet 81 mg PO .QOD tab 10/15/17 [History Confirmed 03/30/18] carvedilol 6.25 mg tablet 6.25 mg PO BID 10/15/17 [History Confirmed 03/30/18] cholecalciferol (vitamin D3) 2,000 unit capsule 2,000 unit PO BID cap 10/15/17 [History Confirmed 03/30/18] fluticasone 50 mcg/actuation nasal spray,suspension 2 spray INTRANASAL BID g 10/15/17 [History Confirmed 03/30/18] levothyroxine 25 mcg capsule 25 mcg PO QDAY cap 10/15/17 [History Confirmed 03/30/18] losartan 50 mg tablet 50 mg PO QDAY 10/15/17 [History Confirmed 03/30/18] budesonide-formoterol HFA 160 mcg-4.5 mcg/actuation aerosol inhaler 2 puff INHALATION BID #3 device 01/13/18 [Rx Confirmed 03/30/18] warfarin 5 mg tablet 5 mg PO .COMPLEX tab 02/09/18 [History Confirmed 03/30/18] albuterol sulfate 2.5 mg/3 mL (0.083 %) solution for nebulization 2.5 mg INHALATION Q6HWA.RT #180 vial 03/03/18 [Rx Confirmed 03/30/18] albuterol sulfate HFA 90 mcg/actuation aerosol inhaler 2 puff INHALATION Q4H PRN PRN #18 g 03/30/18 [Rx Confirmed 03/30/18] [facility] Medical History Left ventricular thrombus (Acute) Implantable cardioverter-defibrillator (ICD) in situ (Chronic) Nonischemic cardiomyopathy (Chronic) Severe left ventricular systolic dysfunction (Chronic) Dilated cardiomyopathy (Chronic) 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) Chronic respiratory failure with hypoxia and hypercapnia (Chronic) PVD (peripheral vascular disease) (Chronic) Stage 3 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) PND (paroxysmal nocturnal dyspnea) (Chronic) Hyperlipidemia (Chronic) SOB (shortness of breath) (Acute) assisted current use of anticoagulant (Chronic) COPD (chronic obstructive pulmonary disease) (Chronic) CAP (community acquired pneumonia) (Chronic) Acute on chronic respiratory failure with hypoxia (Resolved) Psoriatic arthritis (Chronic) CHF (congestive heart failure), NYHA class I (Chronic) Pulmonary hypertension (Chronic) Surgical History History of left heart catheterization (Chronic) Family History Mother Heart disease Brother CVA (cerebral vascular accident) Father Cancer brain Grandmother Diabetes Social History Smoking Status: Never smoker how long ago did patient quit smokin, 1.5p/day second hand exposure: Yes alcohol intake: never substance use type: does not use caffeine: Yes Type: coffee Number of servings: 2 what type of physical activity do you participate in: walking frequency: 3-4 times per week Review of Systems Const CONSTITUTIONAL: Negative anorexia, body ache, chills, daytime sleepiness, fever(s), night sweats, oral thrush, stops breathing during sleep, weight loss, sleeping in chair, fatigue, weight loss, weight gain, frequent colds, seasonal allergies, other, headache(s) or orthopnea EETM Ear Nose Throat Mouth: Positive hearing normal; negative hard of hearing, hoarseness, dry mouth in morning, change in vision, itchy eyes, eye pain, swallowing Difficulty, ear pain, nose bleed, headache(s), mouth pain, nasal congestion, nasal discharge, post nasal drip, sinus pain, sinus pressure, sore throat or other Cardio Cardiovascular: Negative chest pain, chest pain at rest, chest pain with activity, irregular heart rhythm, edema, shortness of breath when lying down, palpitations, murmur or other Resp Respiratory: Positive as per HPI and shortness of breath shortness of breath: Positive with activity; negative pain with cough, wheezing, chest congestion, cough, chest tightness, pain on inspiration, inhalers, increase use of rescue inhalers, snoring, apnea or other Gastro Gastrointestional: Negative bloody stools, change in appetite, difficulty swallowing, reflux, hematemesis, melena stool, loose stool, constipation or other Genitourinary: Negative blood in urine, nocturia, pain with urination or other Musc Musculoskeletal: Negative body pain, back pain, neck pain or other Skin/Breast Skin/Breast: Negative dry skin, itching, rash, unusual bruising, breast lump or other Neuro Neurological: Negative restless legs, confusion, weakness or other Psych Psychocological: Negative abnormal sleep pattern, anxiety, thoughts of hurting self/others, hopelessness or other Lymph Lymphatic: Negative easy bleeding, easy bruising, swollen lymph nodes or other Exam Const Constitutional: Positive conversant, cooperative, in no acute respiratory distress, well developed, well nourished, good hygiene and frail appearing Head Head: Positive normocephalic, atraumatic and cyanosis of lips/distal nose (common for him) Eyes Eye: Positive clear conjunctiva; negative nystagmus or scleral abnormality Ears Ear: Positive hearing normal and external ears normal; negative hard of hearing Nose Nose: Positive external nose normal and no nasal discharge; negative epistaxis Mouth Mouth: Positive oral mucosae normal, no lesions, poor dentition and posterior oropharynx is adequate; negative post nasal drip, malodorous breath or oral thrush present Mallampati Score: I: Mallampati Score Neck Neck: Positive normal visual inspection, full ROM and trachea midline; negative lymphadenopathy, JVD or tender Chest Wall Chest: Positive symmetric chest movement and increased A/P diameter Resp lung sounds: Positive diminished, wheeze present on forced exhalation, prolonged expiratory time and normal chronic state of increased work of breathing; negative rhonchi, rales or dullness to percussion Cardio Cardiac: Positive regular rate, regular rhythm, S1 normal and S2 normal; negative murmur GI GI: Positive normal to inspection; negative distended Genitourinary: Positive deferred Musc Musculoskeletal: Positive steady gait and ROM normal; negative kyphosis or scoliosis Skin Pulmonary Skin Exam: Positive intact and dermal atrophy; negative rash, lesion, ulcers, erythema or scaly Pulses Pulse: Yes pulses normal x4 extremities Extremities Extremities: Yes capillary refill normal, Yes clubbing, No cyanosis, No edema, No stasis dermatitis Neuro Neurologic: Yes conversant, Yes no focal neuro deficits, Yes normal concentration, Yes understands questions, Yes cooperative, Yes normal cognition, Yes normal coordination Lymph Lymphatic: No lymphadenopathy, No tenderness, No cervical adenopathy Psych Appearance: Positive grossly normal, eye contact and well kempt Mental Status: Positive mental status grossly normal Mood: Positive congruent mood Affect: Positive normal affect Coding Level of Care Code Off vis,est,level 3 Diagnoses Stage 3 severe COPD by GOLD classification J44.9 Pulmonary hypertension I27.20 Acute and chronic respiratory failure with hypoxia J96.21 03/30/18 0914 <Electronically signed by Cheryl JOHNSTON> Date Cheryl JOHNSTON Cosigner Signature: Date (if applicable) CC: Jose Maurer III, MD PROTHROMBIN TIME W/INR Collected: 03/30/2018 Status: F Source: [place] 7:13 AM [facility] REPOSITORY TYPE CODE TESTS RESULT OUT OF RANGE REFERENCE UNITS LAB L300.4150 11.7-14.9 SECONDS High PROTIME 32.7 LAB L300.4200 Normal INR 3.2 Performed By: #### L300.3900 #### [facility] [address] [place], [address] PACEMAKER CHECK Observed: 03/25/2018 Status: F Source: [place] 4:02 PM [facility] REPOSITORY [facility] [address] [place] [address] Pacemaker Check Date of Service: 03/24/18 1312 MR#: [id number] Acct: [id number] Name: JIGNESH RAMIRES Rep #: [id number] : 1950 From: Shanelle August Age/Sex: 67/M Location[place] [facility] [place] Status: Signed Billing Codes ICD Device Billing: ICD Dev Interrogate (Rmt) 03/24/18 1315 <Electronically signed by Shanelle August > Date Shanelle August 03/25/18 1602<Electronically signed by Case Florian MD> Cosigner Signature: Date (if applicable) Case Florian MD CC: PROTHROMBIN TIME W/INR Collected: 03/23/2018 Status: F Source: [place] 6:54 AM [facility] REPOSITORY TYPE CODE TESTS RESULT OUT OF RANGE REFERENCE UNITS LAB L300.4150 11.7-14.9 SECONDS High PROTIME 30.5 LAB L300.4200 Normal INR 2.9 Performed By: #### L300.3900 #### [facility] [address] [place], [address] PROTHROMBIN TIME W/INR Collected: 03/18/2018 Status: F Source: [place] 6:58 AM [facility] REPOSITORY TYPE CODE TESTS RESULT OUT OF REFERENCE UNITS RANGE LAB L300.4150 11.7-14.9 SECONDS High PROTIME 36.0 LAB L300.4200 High alert INR 3.6 Result Comment: CRITICAL VALUE VERIFIED. CALLED TO YARELI EAGLE 03/18/18911 Janay Kerns. RESULTS READ BACK BY SAME . Performed By: #### L300.3900 #### [facility] [address] [place], [address] PULMONARY VISIT REPORT Observed: 03/16/2018 Status: F Source: [place] 9:22 AM [facility] REPOSITORY [facility] [address] [place] [address] OFFICE VISIT Date of Service: 03/16/18 MR#: [id number] Acct: [id number] Name: JIGNESH RAMIRES Rep #: [id number] : 1950 Provider: Cheryl Schaeffer Age/Sex: 67/M [place] [facility] [place] Status: Signed Assessment AND Plan 1. Shortness of breath R06.02 Plan Treating for exacerbation with a Z-Sharad and prednisone. Given that the patient is on Coumadin I instructed him that his INR may be higher than normally anticipated with his current dosing. Will contact his heart group for further input. Continue current maintenance medications. No additional testing at this time. Keep previously scheduled routine follow-up on March 29, 2018. Contact the office with any new or worsening symptoms in the meantime. Plan Detail Other Medications New: prednisone take 4 tabs for three days, then 3 tabs for three days, then10 mg PO QDAY 2 tabs for three days, then 1 tab for 3 days HPI Shortness of breath: Chief Complaint: Worsening shortness of breath HPI Comments Details: This is a 67 year old very pleasant m, currently under the care of Jose Maurer, here for an acute visit regarding increase in wheezing, shortness of breath and productive cough. The symptoms began yesterday, and consist of worsening shortness of breath. JIGNESH denies fever, chills, body aches, chest pain or palpitations. Dyspnea score 3 per MMRC scale. See complete ROS. Current medications consist of Symbicort 2 puffs twice daily, Tudorza daily, and albuterol rescue inhaler which is being used once daily. Medication side effects: negative for sore throat, thrush, hoarseness, mouth lesions, or bleeding from nose or mouth. The patient reports compliance with rinsing mouth out after each use. He has not tried any [id number] medications. Current home oxygen use is 3 LPM at all times, 4 LPM on ambulation. MMRC SCALE Grade Degree of breathlessness related to activities 0 Not troubled by breathlessness except on strenuous exercise Intake Vital Signs03/16/18 Height 5 ft 9 in 03/16/18 Weight: 158 lb Intake Visit Reasons: Shortness of breath [employer] 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: No DME Vendor: Tabatha Accompanied by: Self Is patient in pain?: No Allergies No Known Allergies Allergy (Verified 03/16/18 08:40) Medications Aclidinium [place] [Tudorza Pressair] 400 mcg IH BID 08/27/16 [History Confirmed 03/16/18] Albuterol Inhaler [Ventolin Hfa] 2 puff INHALATION Q4H PRN PRN 08/27/16 [History Confirmed 03/16/18] Hydroxychloroquine [Plaquenil] 200 mg PO BIDCM 08/27/16 [History Confirmed 03/16/18] Multivitamin [Multiple Vitamins] 1 ea PO DAILY 08/27/16 [History Confirmed 03/16/18] Omeprazole Magnesium 20 mg PO DAILY 08/27/16 [History Confirmed 03/16/18] Atorvastatin Calcium [Lipitor] 40 mg PO QHS #30 tab 08/31/16 [Rx Confirmed 03/16/18] furosemide 40 mg tablet 40 mg PO BID #180 tab 09/18/17 [Rx Confirmed 03/16/18] aspirin 81 mg chewable tablet 81 mg PO .QOD tab 10/15/17 [History Confirmed 03/16/18] carvedilol 6.25 mg tablet 6.25 mg PO BID 10/15/17 [History Confirmed 03/16/18] cholecalciferol (vitamin D3) 2,000 unit capsule 2,000 unit PO BID cap 10/15/17 [History Confirmed 03/16/18] fluticasone 50 mcg/actuation nasal spray,suspension 2 spray INTRANASAL BID g 10/15/17 [History Confirmed 03/16/18] levothyroxine 25 mcg capsule 25 mcg PO QDAY cap 10/15/17 [History Confirmed 03/16/18] losartan 50 mg tablet 50 mg PO QDAY 10/15/17 [History Confirmed 03/16/18] budesonide-formoterol HFA 160 mcg-4.5 mcg/actuation aerosol inhaler 2 puff INHALATION BID #3 device 01/13/18 [Rx Confirmed 03/16/18] warfarin 5 mg tablet 5 mg PO .COMPLEX tab 02/09/18 [History Confirmed 03/16/18] albuterol sulfate 2.5 mg/3 mL (0.083 %) solution for nebulization 2.5 mg INHALATION Q6HWA.RT #180 vial 03/03/18 [Rx Confirmed 03/16/18] azithromycin 250 mg tablet 250 mg PO QDAY #6 tab 03/16/18 [Rx Confirmed 03/16/18] prednisone 10 mg tablet 10 mg PO QDAY #30 tab 03/16/18 [Rx Confirmed 03/16/18] PFSH Medical History Left ventricular thrombus (Acute) Implantable cardioverter-defibrillator (ICD) in situ (Chronic) Nonischemic cardiomyopathy (Chronic) Severe left ventricular systolic dysfunction (Chronic) Dilated cardiomyopathy (Chronic) 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) Chronic respiratory failure with hypoxia and hypercapnia (Chronic) PVD (peripheral vascular disease) (Chronic) Stage 3 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) PND (paroxysmal nocturnal dyspnea) (Chronic) Hyperlipidemia (Chronic) 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) COPD (chronic obstructive pulmonary disease) (Chronic) CAP (community acquired pneumonia) (Chronic) Acute on chronic respiratory failure with hypoxia (Resolved) Psoriatic arthritis (Chronic) CHF (congestive heart failure), NYHA class I (Chronic) Pulmonary hypertension (Chronic) Surgical History History of left heart catheterization (Chronic) Family History Mother Heart disease Brother CVA (cerebral vascular accident) Father Cancer brain Grandmother Diabetes Social History Smoking Status: Never smoker how long ago did patient quit smokin, 1.5p/day second hand exposure: Yes alcohol intake: never substance use type: does not use caffeine: Yes Type: coffee Number of servings: 2 what type of physical activity do you participate in: walking frequency: 3-4 times per week FEV1% FEV1%: 31 RVSP RVSP: 46 Review of Systems Const CONSTITUTIONAL: Negative anorexia, body ache, chills, daytime sleepiness, fever(s), night sweats, oral thrush, stops breathing during sleep, weight loss, sleeping in chair, fatigue, weight loss, weight gain, frequent colds, seasonal allergies, other, headache(s) or orthopnea EETM Ear Nose Throat Mouth: Positive hearing normal; negative hard of hearing, hoarseness, dry mouth in morning, change in vision, itchy eyes, eye pain, swallowing Difficulty, ear pain, nose bleed, headache(s), mouth pain, nasal congestion, nasal discharge, post nasal drip, sinus pain, sinus pressure, sore throat or other Cardio Cardiovascular: Negative chest pain, chest pain at rest, chest pain with activity, irregular heart rhythm, edema, shortness of breath when lying down, palpitations, murmur or other Resp Respiratory: Positive as per HPI, shortness of breath shortness of breath: Positive with activity and worsening and cough cough: Positive productive color: Positive clear; negative pain with cough, wheezing, chest congestion, chest tightness, pain on inspiration, inhalers, increase use of rescue inhalers, snoring, apnea or other Gastro Gastrointestional: Negative bloody stools, change in appetite, difficulty swallowing, reflux, hematemesis, melena stool, loose stool, constipation or other Genitourinary: Negative blood in urine, nocturia, pain with urination or other Musc Musculoskeletal: Negative body pain, back pain, neck pain or other Skin/Breast Skin/Breast: Negative dry skin, itching, rash, unusual bruising, breast lump or other Neuro Neurological: Negative restless legs, confusion, weakness or other Psych Psychocological: Negative abnormal sleep pattern, anxiety, thoughts of hurting self/others, hopelessness or other Lymph Lymphatic: Negative easy bleeding, easy bruising, swollen lymph nodes or other Exam Ears Ear: Positive hearing normal; negative hard of hearing Nose Nose: Negative epistaxis Mouth Mouth: Negative post nasal drip Cardio Cardiac: Negative murmur Skin Pulmonary Skin Exam: Negative rash Lymph Lymphatic: No lymphadenopathy Coding Level of Care Code Off vis,est,level 3 Diagnoses Shortness of breath R06.02 03/16/18 0922 <Electronically signed by Cheryl Schaeffer NP-C> Date Cheryl HESSC Cosigner Signature: Date (if applicable) CC: Jose Maurer III, MD PROTHROMBIN TIME W/INR Collected: 03/09/2018 Status: F Source: [place] 6:57 AM [facility] REPOSITORY Order Comment: Comments: STANDING ORDER Comments: STANDING ORDER TYPE CODE TESTS RESULT OUT OF RANGE REFERENCE UNITS LAB L300.4150 11.7-14.9 SECONDS High PROTIME 31.6 LAB L300.4200 Normal INR 3.0 Performed By: #### L300.3900 #### [facility] [address] [place], [place], [address] PROTHROMBIN TIME W/INR Collected: 02/23/2018 Status: F Source: [place] 6:57 AM [facility] REPOSITORY TYPE CODE TESTS RESULT OUT OF RANGE REFERENCE UNITS LAB L300.4150 11.7-14.9 SECONDS High PROTIME 22.0 LAB L300.4200 Normal INR 1.9 Performed By: #### L300.3900 #### [facility] [address] [place], [place], [address] URGENT CARE VISIT Observed: 02/10/2018 Status: F Source: [place] RE[facility] 7:23 AM [facility] REPOSITORY [facility] [address] [place] [address] [address] [place], [place] [address] OFFICE VISIT Date of Service: 02/10/18 MR#: [id number] Acct: [id number] Name: JIGNESH RAMIRES Jackson Rep #: [id number] : 1950 Provider: Shane COLLINS Age/Sex: 67/M [place] [facility] Status: Signed Intake Vital Signs02/10/18 Height 5 ft 9 in 02/10/18 Weight: 159 lb 02/10/18 Body Mass Index (BMI) 23.4 02/10/18 Blood Pressure 124/72 Intake Visit Reasons: RT ELBOW LACERATION Chief Complaint: R elbow skin tear 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 Or 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: No Is patient in pain?: No Allergies No Known Allergies Allergy (Verified 02/10/18 06:26) Medications Aclidinium [place] [Tudorza Pressair] 400 mcg IH BID 08/27/16 [History Confirmed 02/10/18] Albuterol Aerosols [Ventolin Aerosols] 0.5 ml INHALATION Q6HWA.RT 08/27/16 [History Confirmed 02/10/18] Albuterol Inhaler [Ventolin Hfa] 2 puff INHALATION Q4H PRN PRN 08/27/16 [History Confirmed 02/10/18] Hydroxychloroquine [Plaquenil] 200 mg PO BIDCM 08/27/16 [History Confirmed 02/10/18] Multivitamin [Multiple Vitamins] 1 ea PO DAILY 08/27/16 [History Confirmed 02/10/18] Omeprazole Magnesium 20 mg PO DAILY 08/27/16 [History Confirmed 02/10/18] Atorvastatin Calcium [Lipitor] 40 mg PO QHS #30 tab 08/31/16 [Rx Confirmed 02/10/18] furosemide 40 mg tablet 40 mg PO BID #180 tab 09/18/17 [Rx Confirmed 02/10/18] aspirin 81 mg chewable tablet 81 mg PO .QOD tab 10/15/17 [History Confirmed 02/10/18] carvedilol 6.25 mg tablet 6.25 mg PO BID 10/15/17 [History Confirmed 02/10/18] cholecalciferol (vitamin D3) 2,000 unit capsule 2,000 unit PO BID cap 10/15/17 [History Confirmed 02/10/18] fluticasone 50 mcg/actuation nasal spray,suspension 2 spray INTRANASAL BID g 10/15/17 [History Confirmed 02/10/18] levothyroxine 25 mcg capsule 25 mcg PO QDAY cap 10/15/17 [History Confirmed 02/10/18] losartan 50 mg tablet 50 mg PO QDAY 10/15/17 [History Confirmed 02/10/18] budesonide-formoterol HFA 160 mcg-4.5 mcg/actuation aerosol inhaler 2 puff INHALATION BID #3 device 01/13/18 [Rx Confirmed 02/10/18] warfarin 5 mg tablet 5 mg PO .COMPLEX tab 02/09/18 [History Confirmed 02/10/18] PFSH Medical History Implantable cardioverter-defibrillator (ICD) in situ (Chronic) Nonischemic cardiomyopathy (Chronic) Severe left ventricular systolic dysfunction (Chronic) Dilated cardiomyopathy (Chronic) 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) Chronic respiratory failure with hypoxia and hypercapnia (Chronic) PVD (peripheral vascular disease) (Chronic) Stage 3 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) PND (paroxysmal nocturnal dyspnea) (Chronic) Hyperlipidemia (Chronic) 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) COPD (chronic obstructive pulmonary disease) (Chronic) CAP (community acquired pneumonia) (Chronic) Acute on chronic respiratory failure with hypoxia (Resolved) Psoriatic arthritis (Chronic) CHF (congestive heart failure), NYHA class I (Chronic) Pulmonary hypertension (Chronic) Surgical History History of left heart catheterization (Chronic) Family History Mother Heart disease Brother CVA (cerebral vascular accident) Father Cancer brain Grandmother Diabetes Social History Smoking Status: Never smoker how long ago did patient quit smokin, 1.5p/day second hand exposure: Yes alcohol intake: never substance use type: does not use caffeine: Yes Type: coffee Number of servings: 2 what type of physical activity do you participate in: walking frequency: 3-4 times per week HPI HPI Chief Complaint: R elbow skin tear Details: JIGNESH RAMIRES, is a 67 M who presents to the office today for initial evaluation right elbow skin tear. Patient states at approximately 2 AM this morning getting up to use the restroom and hitting his elbow against the corner of the wall causing a localized tear and bleeding to the same. He notes he is unable to appropriately care for the wound himself due to the positioning of the skin tear. He notes essentially no complaints of pain to the same refusing radiographs today upon offering. He notes no loss of sensation strength or function distal to the site. He notes his Tdap is up-to-date. He notes no other associated symptoms no other alleviating or aggravating factors. ROS Skin Skin: Positive for wounds (Review of systems otherwise as noted in HPI) Exam Const General: cooperative, healthy appearing, no acute distress, comfortable Nutritional Appearance: average body habitus Orientation: alert, awake, oriented x3 Chest Chest palpation AND inspection: normal inspection of the chest Resp Effort AND Inspection: normal respiratory effort, able to speak in complete sentences, symmetric chest movement Auscultation: Bilateral: Clear to Auscultation Cardio Palpation: normal PMI Rate: regular rate Rhythm: regular rhythm Heart Sounds: S1 normal, S2 normal, no gallops, no murmurs, no rubs Pulses: radial pulses present Musc Musculoskeletal: No joint tenderness, joint redness, joint warmth or decreased ROM Skin General: no rashes or lesions noted Trauma: laceration (sq skin tear of 1cm diameter; hibiclens - bacitracin/ dsg applied) Neuro General: alert, awake, oriented x3, gait normal Cognition: normal cognition Speech: speech normal Gait: normal gait Motor: muscle tone normal throughout Sensory Exam: no sensory deficits noted Extrem General: normal to inspection, no pedal edema Assessment AND Plan Problems 1. Laceration of right elbow without complication S51.011A Plan Twice daily wound care as instructed today. Follow-up with PCP on an as-needed basis only. Patient states acknowledging understanding all the above. This note was generated with MyDream Interactiveation software. It may contain incorrect words, spelling, and punctuation that were not noted in checking the note before signing. Coding Level of Care Code Off vis,est,level 2 Diagnoses Laceration of right elbow without complication S51.011A 02/10/18 0723 <Electronically signed by Shane COLLINS> Date Shane COLLINS Cosigner Signature: Date (if applicable) CC: PROTHROMBIN TIME W/INR Collected: 02/09/2018 Status: F Source: [place] 6:43 AM [facility] REPOSITORY TYPE CODE TESTS RESULT OUT OF RANGE REFERENCE UNITS LAB L300.4150 11.7-14.9 SECONDS High PROTIME 19.4 LAB L300.4200 Normal INR 1.6 Performed By: #### L300.3900 #### [facility] [place], [address] PROTHROMBIN TIME W/INR Collected: 02/02/2018 Status: F Source: [place] 6:56 AM [facility] REPOSITORY TYPE CODE TESTS RESULT OUT OF RANGE REFERENCE UNITS LAB L300.4150 11.7-14.9 SECONDS High PROTIME 17.7 LAB L300.4200 Normal INR 1.5 Performed By: #### L300.3900 #### [facility] [address] [place], [address] PROTHROMBIN TIME W/INR Collected: 01/21/2018 Status: F Source: [place] 7:00 AM [facility] REPOSITORY Order Comment: RESULT(S) PREVIOUSLY REPORTED ON MANUAL REQUISITION DURING DOWNTIME. TYPE CODE TESTS RESULT OUT OF RANGE REFERENCE UNITS LAB L300.4150 11.7-14.9 SECONDS High PROTIME 19.5 LAB L300.4200 Normal INR 1.6 Performed By: #### L300.3900 #### [facility] [place], [address] PROTHROMBIN TIME W/INR Collected: 01/14/2018 Status: F Source: [place] 6:40 AM [facility] REPOSITORY TYPE CODE TESTS RESULT OUT OF RANGE REFERENCE UNITS LAB L300.4150 11.7-14.9 SECONDS Normal PROTIME 14.0 LAB L300.4200 Normal INR 1.1 Performed By: #### L300.3900 #### [facility] [place], [address] PROTHROMBIN TIME W/INR Collected: 01/05/2018 Status: F Source: [place] 7:13 AM [facility] REPOSITORY TYPE CODE TESTS RESULT OUT OF RANGE REFERENCE UNITS LAB L300.4150 11.7-14.9 SECONDS High PROTIME 15.7 LAB L300.4200 Normal INR 1.3 Performed By: #### L300.3900 #### [facility] [address] [place], [address] HH, HEMOGLOBIN AND Collected: 01/05/2018 Status: F Source: [place] HEMATOCRIT 7:13 AM [facility] REPOSITORY TYPE CODE TESTS RESULT OUT OF RANGE REFERENCE UNITS LAB L100.1300 13.0-16.5 g/dl Low HGB 11.3 LAB L100.1400 40-54 % Low HCT 32.8 Performed By: #### L100.0600 #### [facility] [address] [place], [address] PACEMAKER CHECK Observed: 01/04/2018 Status: F Source: [place] 12:20 PM [facility] REPOSITORY [facility] [address] [place] [address] Pacemaker Check Date of Service: 12/21/17 1119 MR#: [id number] Acct: [id number] Name: JIGNESH RAMIRES Rep #: [id number] : 1950 From: Shanelle August Age/Sex: 66/M Location[place] [facility] [place] Status: Signed Comments Summary Comments: Remote Single Chamber ICD Evaluation: See attached scanned remote Latitude report. Interrogation shows no VT/VF episodes since 03/01/17. Presenting rhythm shows NSR @ 90 bpm. HADOOP ANALYST=0%. Estimated battery life 12 yrs. Device and battery measurements remain stable. Pt notified remote transmission received and next f/u appt scheduled for in 3 mos. Device Device Date Interviewed: 12/21/17 Follow-up Location: remote Interview Reason: scheduled follow up Incident Response Lead: [employer] Name: Dynagen ICD Model: D150 Serial #: [id number] Implant Date: 01/13/17 Year(s): 0 Implant Physician: Dr. Green/[facility] Patient Characteristics Patient Substrate: Nonischemic cardiomyopathy Ejection fraction %: 25 to 29 (12/17/2016) By: Echo Underlying rhythm: Sinus rhythm Pacemaker Dependent: No Device Characteristics Device: Single Chamber Type: Implantable defibrillator Remote Follow-Up: Latitude Leads Lead #1 Incident Response Lead Lead 1: [employer] Model Lead 1: 0292 Serial# Lead 1: [id number] Date Implanted Lead 1: 01/13/17 Position Lead 1: RA Tachy Settings VF Therapies VF Therapy Status On On On On On On Energy 41 41 41 41 41 41 Pathway ATP: During charging on FVT Therapies FVT Therapy Status On On On On On On VT Therapies VT Therapy Status Off Off Off Off Off Off Comments: Gigi Settings Gigi Settings Pacemaker Mode VVI Lower Rate Limit (bpm) 40 Hysteresis Rate (bpm) Max Track Rate (bpm) Max Sensor Rate (bpm) Max AV Delay (msec) Max PV Delay (msec) Max PVARP (msec) Output/Sensing V/PW (ms) 2.0/0.4 Sensitivity RA RV LV AGC 0.6 Comments: Billing Codes ICD Device Billing: ICD Dev Interrogate (Rmt) Assessment AND Plan Problems 1. Implantable cardioverter-defibrillator (ICD) in situ Z95.810 2. Nonischemic cardiomyopathy I42.8 EF 15-20% per heart cath 08/29/2016; 20-35% per echo 12/17/2016 3. Severe left ventricular systolic dysfunction I51.9 EF 15-20% per heart cath 08/29/2016; 20-35% per echo 12/17/2016 4. Dilated cardiomyopathy I42.0 5. 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 Florian 01/01/18 1526 <Electronically signed by Shanelle August > Date Shanelle August 01/04/18 1220<Electronically signed by Case Florian MD> [facility] Signature: Date (if applicable) Case Florian MD CC: EMERGENCY DEPARTMENT Observed: 01/02/2018 Status: F Source: [place] SUMMARY 10:33 PM [facility] REPOSITORY [facility] Medical Records Department [address] [place] [address] Emergency Department Summary 01/02/18 1614 MR#: [id number] Acct: [id number] Name: JIGNESH RAMIRES Rep #: [id number] : 1950 67 From: Sameera Tan MD PCP: Jose Maurer III, MD Status: DEP ER - ER Visit Summary Date of Service: 01/02/18 Chief Complaint: Wound bleeding History of Present Illness: The patient is a 67 M who [facility] for left forearm skin tear than been bleeding for the past 4 days. Pressure dressing was applied. He went back to the clinic today for another small skin tear that is just proximal to the original lesion that occurred last night. Pressure dressing was again applied but it continues to bleed through the dressing. Patient is currently on Coumadin. He is scheduled to have his level rechecked next week. Last month was reportedly high. Physical Examination: Vital signs are significant for blood pressure 194/89, otherwise vitals unremarkable. He is on chronic nasal cannula O2. Patient sitting upright in bed no acute distress. He is alert and talkative. Left upper extremity examination was a small 2 x 3 mm skin tear in the left forearm with mild continuous oozing. There is a more distal lesion that is well scabbed over and not bleeding. He has good distal pulses with normal range of motion. Test Results: [] Emergency Department Course and Treatment: Silver nitrate was applied to the bleeding lesion with good control. Dressing is applied. On repeat evaluation he has had no bleeding onto the dressing at all. His INR is checked and is currently 2.7. Patient had been instructed to hold his Coumadin until Thursday when it is checked again. Treatment Plan: [] Disposition: Discharge Impression: 1. Skin tear with chemical cautery 2. Supratherapeutic INR This note was generated with Glio dictation software. It may contain incorrect words, spelling, and punctuation that were not noted in review of the chart prior to signing ED Disposition - Plan for ED Patient: Chief Complaint: Wound Referrals: Jose Maurer III, MD [Primary Care Provider] - What to do if you have Problems For any increased pain, shortness of breath, bleeding, nausea or vomiting, chest pain, or any unexpected problems, contact your Primary Care Provider. Call [facility] ([phone]) or report to the closest Emergency Room. Call 911 if necessary. 01/02/18 7322 <Electronically signed by Sameera Tan MD> Date Sameera Tan MD Cosigner Signature (If Indicated): Date CC: Jose Maurer III, MD DISCHARGE INSTRUCTION Observed: 01/02/2018 Status: F Source: [place] 4:56 PM [facility] REPOSITORY [facility] Medical Records Department [address] [place] [address] Discharge Instruction 01/02/181655 MR#: [id number] Acct: [id number] Name: JIGNESH RAMIRES Rep #: [id number] : 1950 67 From: Sameera Tan MD PCP: Jose Maurer III, MD Status: REG ER ED Disposition - Plan for ED Patient: Disposition: Home or Assisted Living Chief Complaint: Wound Instructions: ED Avulsion Dermal Referrals: Jose Maurer III, MD [Primary Care Provider] - What to do if you have Problems For any increased pain, shortness of breath, bleeding, nausea or vomiting, chest pain, or any unexpected problems, contact your Primary Care Provider. Call [facility] ([phone]) or report to the closest Emergency Room. Call 911 if necessary. 01/02/181655 <Electronically signed by Sameera Tan MD> Date Sameera Tan MD Cosigner Signature (If Indicated): Date CC: Jose Maurer III, MD PROTHROMBIN TIME W/INR Collected: 01/02/2018 Status: F Source: [place] 4:30 PM [facility] REPOSITORY TYPE CODE TESTS RESULT OUT OF RANGE REFERENCE UNITS LAB L300.4150 11.7-14.9 SECONDS High PROTIME 28.9 LAB L300.4200 Normal INR 2.7 Performed By: #### L300.3900 #### [facility] [address] [place], [place], [address] URGENT CARE VISIT Observed: 01/02/2018 Status: F Source: [place] [facility] 9:25 AM [facility] REPOSITORY [facility] [facility] [address] [place] [address] OFFICE VISIT Date of Service: 01/02/18 MR#: [id number] Acct: [id number] Name: JIGNESH RAMIRES Rep #: [id number] : 1950 Provider: Ivelisse North Age/Sex: 67/M Location[place] [facility] Status: Signed Intake Vital Signs01/02/18 Height 5 ft 7 in 01/02/18 Weight: 151 lb 01/02/18 Body Mass Index (BMI) 23.6 01/02/18 Blood Pressure 134/70 Intake Visit Reasons: LEFT ELBOW WOUND Chief Complaint: Follow-up test results Assemblyman Or 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: No Is patient in pain?: No Allergies No Known Allergies Allergy (Verified 01/02/18 08:17) Medications Aclidinium [place] [Tudorza Pressair] 400 mcg IH BID 08/27/16 [History Confirmed 01/02/18] Albuterol Aerosols [Ventolin Aerosols] 0.5 ml INHALATION Q6HWA.RT 08/27/16 [History Confirmed 01/02/18] Albuterol Inhaler [Ventolin Hfa] 2 puff INHALATION Q4H PRN PRN 08/27/16 [History Confirmed 01/02/18] Hydroxychloroquine [Plaquenil] 200 mg PO BIDCM 08/27/16 [History Confirmed 01/02/18] Multivitamin [Multiple Vitamins] 1 ea PO DAILY 08/27/16 [History Confirmed 01/02/18] Omeprazole Magnesium 20 mg PO DAILY 08/27/16 [History Confirmed 01/02/18] Atorvastatin Calcium [Lipitor] 40 mg PO QHS #30 tab 08/31/16 [Rx Confirmed 01/02/18] furosemide 40 mg tablet 40 mg PO BID #180 tab 09/18/17 [Rx Confirmed 01/02/18] budesonide-formoterol HFA 160 mcg-4.5 mcg/actuation aerosol inhaler 2 puff INHALATION BID #10.2 g 10/13/17 [Rx Confirmed 01/02/18] aspirin 81 mg chewable tablet 81 mg PO .QOD tab 10/15/17 [History Confirmed 01/02/18] carvedilol 6.25 mg tablet 6.25 mg PO BID 10/15/17 [History Confirmed 01/02/18] cholecalciferol (vitamin D3) 2,000 unit capsule 2,000 unit PO BID cap 10/15/17 [History Confirmed 01/02/18] fluticasone 50 mcg/actuation nasal spray,suspension 2 spray INTRANASAL BID g 10/15/17 [History Confirmed 01/02/18] levothyroxine 25 mcg capsule 25 mcg PO QDAY cap 10/15/17 [History Confirmed 01/02/18] losartan 50 mg tablet 50 mg PO QDAY 10/15/17 [History Confirmed 01/02/18] warfarin 5 mg tablet 5 mg PO .COMPLEX #60 tab 12/22/17 [Rx Confirmed 01/02/18] [facility] Medical History Implantable cardioverter-defibrillator (ICD) in situ (Chronic) Nonischemic cardiomyopathy (Chronic) Severe left ventricular systolic dysfunction (Chronic) Dilated cardiomyopathy (Chronic) 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) Chronic respiratory failure with hypoxia and hypercapnia (Chronic) PVD (peripheral vascular disease) (Chronic) Stage 3 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) PND (paroxysmal nocturnal dyspnea) (Chronic) Hyperlipidemia (Chronic) SOB (shortness of breath) (Acute) assisted current use of anticoagulant (Chronic) COPD (chronic obstructive pulmonary disease) (Chronic) CAP (community acquired pneumonia) (Chronic) Acute on chronic respiratory failure with hypoxia (Resolved) Psoriatic arthritis (Chronic) CHF (congestive heart failure), NYHA class I (Chronic) Pulmonary hypertension (Chronic) Surgical History History of left heart catheterization (Chronic) Family History Mother Heart disease Brother CVA (cerebral vascular accident) Father Cancer brain Grandmother Diabetes Social History Smoking Status: Former smoker how long ago did patient quit smokin, 1.5p/day second hand exposure: Yes alcohol intake: never substance use type: does not use caffeine: Yes Type: coffee Number of servings: 2 what type of physical activity do you participate in: walking frequency: 3-4 times per week HPI HPI Chief Complaint: Follow-up test results Details: JIGNESH RAMIRES, is a 67 M who presents to the office today for an urgent appointment concerning a skin tear that will not stop bleeding. Patient is on Coumadin for his cardiomyopathy. His INR 2 weeks ago was 4.0. He is scheduled to have this rechecked next week. He was in the office yesterday for one skin tear that happened approximately 4 days ago. That skin tear has stopped however he did have a skin injury where he bumped his arm right above that and that area is bleeding. ROS Const Constitutional: No anorexia, body ache, chills, fatigue, fever(s) or headache(s) Eyes Eyes: No discharge or eye pain ENT ENT: No headache(s), ear pain, ear pressure, tinnitus, dizziness/vertigo, nasal congestion, nasal discharge, sinus pressure, dental pain or facial pain Resp Respiratory: No cough or chest congestion Cardio Cardiology: No dyspnea on exertion, shortness of breath or irregular heart rhythm Gastro GI: No vomiting, diarrhea or heartburn Skin Skin: Positive for wounds (Bleeding skin tear to left forearm) Neuro Neurology: No headache(s) Endo Endocrine: No fatigue Exam Const General: cooperative, no acute distress Orientation: alert, oriented x3 HENMT Head: normal to inspection Chest Chest palpation AND inspection: normal inspection of the chest Resp Effort AND Inspection: normal respiratory effort, able to speak in complete sentences, other (Wears oxygen continuously) Auscultation: Bilateral: Diminished Lung Sounds Cardio Palpation: normal PMI Rate: regular rate Rhythm: regular rhythm Heart Sounds: S1 normal, S2 normal Skin Trauma: other (Skin puncture wound to left forearm above previous skin tear. Multiple are) Assessment AND Plan Problems 1. Abrasion of skin T14.8XXA Plan Cleaned skin tear. None adhesive gauze applied then applied pressure dressing. Patient was instructed to to hold his Coumadin until Thursday. He will have his INR rechecked at that time. He was instructed on how to properly care for his dressing if he has any other questions he can give us a call. Coding Level of Care Code Off vis,est,level 3 Diagnoses Abrasion of skin T14.8XXA Intake Vital Signs01/02/18 Height 5 ft 7 in 01/02/18 Weight: 151 lb 01/02/18 Body Mass Index (BMI) 23.6 01/02/18 Blood Pressure 134/70 Intake Visit Reasons: LEFT ELBOW WOUND Chief Complaint: Follow-up test results Assemblyman Or 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: No Is patient in pain?: No Allergies No Known Allergies Allergy (Verified 01/02/18 08:17) Medications Aclidinium [place] [Tudorza Pressair] 400 mcg IH BID 08/27/16 [History Confirmed 01/02/18] Albuterol Aerosols [Ventolin Aerosols] 0.5 ml INHALATION Q6HWA.RT 08/27/16 [History Confirmed 01/02/18] Albuterol Inhaler [Ventolin Hfa] 2 puff INHALATION Q4H PRN PRN 08/27/16 [History Confirmed 01/02/18] Hydroxychloroquine [Plaquenil] 200 mg PO BIDCM 08/27/16 [History Confirmed 01/02/18] Multivitamin [Multiple Vitamins] 1 ea PO DAILY 08/27/16 [History Confirmed 01/02/18] Omeprazole Magnesium 20 mg PO DAILY 08/27/16 [History Confirmed 01/02/18] Atorvastatin Calcium [Lipitor] 40 mg PO QHS #30 tab 08/31/16 [Rx Confirmed 01/02/18] furosemide 40 mg tablet 40 mg PO BID #180 tab 09/18/17 [Rx Confirmed 01/02/18] budesonide-formoterol HFA 160 mcg-4.5 mcg/actuation aerosol inhaler 2 puff INHALATION BID #10.2 g 10/13/17 [Rx Confirmed 01/02/18] aspirin 81 mg chewable tablet 81 mg PO .QOD tab 10/15/17 [History Confirmed 01/02/18] carvedilol 6.25 mg tablet 6.25 mg PO BID 10/15/17 [History Confirmed 01/02/18] cholecalciferol (vitamin D3) 2,000 unit capsule 2,000 unit PO BID cap 10/15/17 [History Confirmed 01/02/18] fluticasone 50 mcg/actuation nasal spray,suspension 2 spray INTRANASAL BID g 10/15/17 [History Confirmed 01/02/18] levothyroxine 25 mcg capsule 25 mcg PO QDAY cap 10/15/17 [History Confirmed 01/02/18] losartan 50 mg tablet 50 mg PO QDAY 10/15/17 [History Confirmed 01/02/18] warfarin 5 mg tablet 5 mg PO .COMPLEX #60 tab 12/22/17 [Rx Confirmed 01/02/18] [facility] Medical History Implantable cardioverter-defibrillator (ICD) in situ (Chronic) Nonischemic cardiomyopathy (Chronic) Severe left ventricular systolic dysfunction (Chronic) Dilated cardiomyopathy (Chronic) 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) Chronic respiratory failure with hypoxia and hypercapnia (Chronic) PVD (peripheral vascular disease) (Chronic) Stage 3 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) PND (paroxysmal nocturnal dyspnea) (Chronic) Hyperlipidemia (Chronic) 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) COPD (chronic obstructive pulmonary disease) (Chronic) CAP (community acquired pneumonia) (Chronic) Acute on chronic respiratory failure with hypoxia (Resolved) Psoriatic arthritis (Chronic) CHF (congestive heart failure), NYHA class I (Chronic) Pulmonary hypertension (Chronic) Surgical History History of left heart catheterization (Chronic) Family History Mother Heart disease Brother CVA (cerebral vascular accident) Father Cancer brain Grandmother Diabetes Social History Smoking Status: Former smoker how long ago did patient quit smokin, 1.5p/day second hand exposure: Yes alcohol intake: never substance use type: does not use caffeine: Yes Type: coffee Number of servings: 2 what type of physical activity do you participate in: walking frequency: 3-4 times per week HPI HPI Chief Complaint: Follow-up test results Details: JIGNESH RAMIRES, is a 67 M who presents to the office today for an urgent appointment concerning a skin tear that will not stop bleeding. Patient is on Coumadin for his cardiomyopathy. His INR 2 weeks ago was 4.0. He is scheduled to have this rechecked next week. He was in the office yesterday for one skin tear that happened approximately 4 days ago. That skin tear has stopped however he did have a skin injury where he bumped his arm right above that and that area is bleeding. ROS Const Constitutional: No anorexia, body ache, chills, fatigue, fever(s) or headache(s) Eyes Eyes: No discharge or eye pain ENT ENT: No headache(s), ear pain, ear pressure, tinnitus, dizziness/vertigo, nasal congestion, nasal discharge, sinus pressure, dental pain or facial pain Resp Respiratory: No cough or chest congestion Cardio Cardiology: No dyspnea on exertion, shortness of breath or irregular heart rhythm Gastro GI: No vomiting, diarrhea or heartburn Skin Skin: Positive for wounds (Bleeding skin tear to left forearm) Neuro Neurology: No headache(s) Endo Endocrine: No fatigue Exam Const General: cooperative, no acute distress Orientation: alert, oriented x3 HENMT Head: normal to inspection Chest Chest palpation AND inspection: normal inspection of the chest Resp Effort AND Inspection: normal respiratory effort, able to speak in complete sentences, other (Wears oxygen continuously) Auscultation: Bilateral: Diminished Lung Sounds Cardio Palpation: normal PMI Rate: regular rate Rhythm: regular rhythm Heart Sounds: S1 normal, S2 normal Skin Trauma: other (Skin puncture wound to left forearm above previous skin tear. Multiple are) Assessment AND Plan Problems 1. Abrasion of skin T14.8XXA Plan Cleaned skin tear. None adhesive gauze applied then applied pressure dressing. Patient was instructed to to hold his Coumadin until Thursday. He will have his INR rechecked at that time. He was instructed on how to properly care for his dressing if he has any other questions he can give us a call. Coding Level of Care Code Off vis,est,level 3 Diagnoses Abrasion of skin T14.8XXA 01/02/18 0925 <Electronically signed by Ivelisse COLLINS> Date Ivelisse COLLINS Cosigner Signature: Date (if applicable) CC: URGENT CARE VISIT Observed: 01/01/2018 Status: F Source: [facility] REPORT 8:30 AM [facility] [address] [place] [address] [address] [place] [address] OFFICE VISIT Date of Service: 01/01/18 MR#: [id number] Acct: [id number] Name: JIGNESH RAMIRES Rep #: [id number] : 1950 Provider: Darren COLLINS Age/Sex: 67/M [place] [facility] [place] Status: Signed Intake Vital Signs01/01/18 Height 5 ft 7 in Intake Visit Reasons: bleeding Is patient in pain?: No Allergies No Known Allergies Allergy (Verified 01/01/18 06:40) Medications Aclidinium [place] [Tudorza Pressair] 400 mcg IH BID 08/27/16 [History Confirmed 01/01/18] Albuterol Aerosols [Ventolin Aerosols] 0.5 ml INHALATION Q6HWA.RT 08/27/16 [History Confirmed 01/01/18] Albuterol Inhaler [Ventolin Hfa] 2 puff INHALATION Q4H PRN PRN 08/27/16 [History Confirmed 01/01/18] Hydroxychloroquine [Plaquenil] 200 mg PO BIDCM 08/27/16 [History Confirmed 01/01/18] Multivitamin [Multiple Vitamins] 1 ea PO DAILY 08/27/16 [History Confirmed 01/01/18] Omeprazole Magnesium 20 mg PO DAILY 08/27/16 [History Confirmed 01/01/18] Atorvastatin Calcium [Lipitor] 40 mg PO QHS #30 tab 08/31/16 [Rx Confirmed 01/01/18] furosemide 40 mg tablet 40 mg PO BID #180 tab 09/18/17 [Rx Confirmed 01/01/18] budesonide-formoterol HFA 160 mcg-4.5 mcg/actuation aerosol inhaler 2 puff INHALATION BID #10.2 g 10/13/17 [Rx Confirmed 01/01/18] aspirin 81 mg chewable tablet 81 mg PO .QOD tab 10/15/17 [History Confirmed 01/01/18] carvedilol 6.25 mg tablet 6.25 mg PO BID 10/15/17 [History Confirmed 01/01/18] cholecalciferol (vitamin D3) 2,000 unit capsule 2,000 unit PO BID cap 10/15/17 [History Confirmed 01/01/18] fluticasone 50 mcg/actuation nasal spray,suspension 2 spray INTRANASAL BID g 10/15/17 [History Confirmed 01/01/18] levothyroxine 25 mcg capsule 25 mcg PO QDAY cap 10/15/17 [History Confirmed 01/01/18] losartan 50 mg tablet 50 mg PO QDAY 10/15/17 [History Confirmed 01/01/18] warfarin 5 mg tablet 5 mg PO .COMPLEX #60 tab 12/22/17 [Rx Confirmed 01/01/18] [facility] Medical History Nonischemic cardiomyopathy (Chronic) Severe left ventricular systolic dysfunction (Chronic) Dilated cardiomyopathy (Chronic) 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) Chronic respiratory failure with hypoxia and hypercapnia (Chronic) PVD (peripheral vascular disease) (Chronic) Stage 3 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) PND (paroxysmal nocturnal dyspnea) (Chronic) Hyperlipidemia (Chronic) 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) COPD (chronic obstructive pulmonary disease) (Chronic) CAP (community acquired pneumonia) (Chronic) Acute on chronic respiratory failure with hypoxia (Resolved) Psoriatic arthritis (Chronic) CHF (congestive heart failure), NYHA class I (Chronic) Pulmonary hypertension (Chronic) Surgical History History of left heart catheterization (Chronic) Family History Mother Heart disease Brother CVA (cerebral vascular accident) Father Cancer brain Grandmother Diabetes Social History Smoking Status: Former smoker how long ago did patient quit smokin, 1.5p/day second hand exposure: Yes alcohol intake: never substance use type: does not use caffeine: Yes Type: coffee Number of servings: 2 what type of physical activity do you participate in: walking frequency: 3-4 times per week HPI HPI Details: JIGNESH RAMIRES, is a 67 M who presents to the office today for left arm abrasion which continues to bleed for the past 4 days. Patient is currently on warfarin. He states that he sustained an abrasion to his arm on Joyce of this week when he hit his arm on a sharp corner. He has continued to cover the area with bandage however he continues to bleed through. He denies any shortness of breath, chest pain or lightheadedness. He has had no fever, chills, sweats. No other associated symptoms or alleviating/aggravating factors. ROS Const Constitutional: No chills, fever(s), fatigue or abnormal sleep pattern Resp Respiratory: No shortness of breath or chest congestion Cardio Cardiology: No chest pain at rest, chest pain with exertion or shortness of breath Skin Skin: Positive for wounds (Left forearm abrasion); no lesions Neuro Neurology: No behavioral changes or confusion Psych Psychiatric: No behavioral changes, No confusion, No abnormal sleep pattern Endo Endocrine: No fatigue Exam Const General: cooperative, healthy appearing Resp Effort AND Inspection: normal respiratory effort Auscultation: Bilateral: Clear to Auscultation Cardio Palpation: normal PMI Rate: regular rate Rhythm: regular rhythm Skin Other: Small skin tear to the left forearm which appears to be healing however continues to have bleeding. Bleeding is very minimal and easily stopped. No surrounding erythema, ecchymosis or tenderness to palpation. Neuro General: alert, CN's II-XI intact bilaterally Psych Appearance: grossly normal Mental Status: mental status grossly normal Assessment AND Plan Problems 1. Abrasion of skin T14.8XXA Status Acute Plan The area was cleansed with chlorhexidine and dressed with bacitracin and gauze. Wound care discussed with the patient. 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 Patient advised of potential red flags when appropriate report to the ED. Patient verbalized understanding of all the above. This note was generated with Glio dictation software. It may contain incorrect words, spelling, and punctuation that were not noted in checking the note before signing. Coding Level of Care Code Off vis,est,level 3 Diagnoses Abrasion of skin T14.8XXA 01/01/18 0830 <Electronically signed by Darren COLLINS> Date Darren COLLINS Cosigner Signature: Date (if applicable) CC: PULMONARY VISIT REPORT Observed: 12/23/2017 Status: F Source: [facility] 6:54 AM [facility] REPOSITORY [facility] [address] [place] [address] OFFICE VISIT Date of Service: 12/23/17 MR#: [id number] Acct: [id number] Name: JIGNESH RAMIRES Rep #: [id number] : 1950 Provider: Clovis Rodríguez MD Age/Sex: 67/M [place] [facility] [place] Status: Signed Assessment AND Plan 1. Stage 3 severe COPD by GOLD classification J44.9 Plan Patient with advanced lung disease by PFT criteria. Patient continues to be active with pulmonary rehab and an exercise program. Patient is using noninvasive ventilator overnight and recent pulmonary function tests show significant improvement in air trapping compared to previous. Patient is doing well. Signs and symptoms of exacerbation and sick policy were reviewed in detail. Patient voiced understanding. Continue current therapy. 2. Secondary pulmonary arterial hypertension I27.21 Plan Patient does have elevated pulmonary artery pressures in the past that is multifactorial. Patient has been tolerating this well and is watching oxygen saturations. Supplemental oxygen with exertion is helping the overall condition. Continue to use supplemental oxygen to maintain sats greater than 90% at all times. 3. Chronic respiratory failure with hypoxia and hypercapnia J96.11; J96.12 Plan Patient overall is doing well. Patient has remained active with pulmonary rehab and is compliant with recommendations. Signs and symptoms of exacerbation were reviewed in detail. Patient expressed understanding. Continue current therapy. Plan Detail Follow Up 3 Months (CSM) HPI 3 M FU: Chief Complaint: Follow-up test results Details: Patient is a 67-year-old male, currently in the care of Dr. Maurer, who presents for follow-up secondary to recent test results. Since last visit, patient denies any ER visits, hospitalizations or prednisone burst. Patient does report having a head cold 2 weeks ago that did not require prednisone or antibiotics. Patient feels he is back to his baseline at this time. Patient reports he has been compliant with Symbicort and Tudorza therapy. Patient denies any complications such as thrush, hoarseness or sore throat. Patient feels that these continue to improve his overall condition. Patient continues to use overnight noninvasive ventilator. Patient states that he starting to get used to it, but it is still a challenge. Patient states he does feel that this has improved his respiratory status during the day and he plans on continuing using it. Patient denies any pain at the interface, epistaxis, dry mouth or hoarseness. Patient continues to wear 3-4 L/min with ambulation. Patient does check his oxygenation on a routine basis. 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: [employer] Accompanied by: Self Allergies No Known Allergies Allergy (Verified 12/23/17 06:14) Medications Aclidinium [place] [Tudorza Pressair] 400 mcg IH BID 08/27/16 [History Confirmed 12/23/17] Albuterol Aerosols [Ventolin Aerosols] 0.5 ml INHALATION Q6HWA.RT 08/27/16 [History Confirmed 12/23/17] Albuterol Inhaler [Ventolin Hfa] 2 puff INHALATION Q4H PRN PRN 08/27/16 [History Confirmed 12/23/17] Hydroxychloroquine [Plaquenil] 200 mg PO BIDCM 08/27/16 [History Confirmed 12/23/17] Multivitamin [Multiple Vitamins] 1 ea PO DAILY 08/27/16 [History Confirmed 12/23/17] Omeprazole Magnesium 20 mg PO DAILY 08/27/16 [History Confirmed 12/23/17] Atorvastatin Calcium [Lipitor] 40 mg PO QHS #30 tab 08/31/16 [Rx Confirmed 12/23/17] furosemide 40 mg tablet 40 mg PO BID #180 tab 09/18/17 [Rx Confirmed 12/23/17] budesonide-formoterol HFA 160 mcg-4.5 mcg/actuation aerosol inhaler 2 puff INHALATION BID #10.2 g 10/13/17 [Rx Confirmed 12/23/17] aspirin 81 mg chewable tablet 81 mg PO .QOD tab 10/15/17 [History Confirmed 12/23/17] carvedilol 6.25 mg tablet 6.25 mg PO BID 10/15/17 [History Confirmed 12/23/17] cholecalciferol (vitamin D3) 2,000 unit capsule 2,000 unit PO BID cap 10/15/17 [History Confirmed 12/23/17] fluticasone 50 mcg/actuation nasal spray,suspension 2 spray INTRANASAL BID g 10/15/17 [History Confirmed 12/23/17] levothyroxine 25 mcg capsule 25 mcg PO QDAY cap 10/15/17 [History Confirmed 12/23/17] losartan 50 mg tablet 50 mg PO QDAY 10/15/17 [History Confirmed 12/23/17] warfarin 5 mg tablet 5 mg PO .COMPLEX #60 tab 12/22/17 [Rx Confirmed 12/23/17] [facility] Medical History Nonischemic cardiomyopathy (Chronic) Severe left ventricular systolic dysfunction (Chronic) Dilated cardiomyopathy (Chronic) 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) Chronic respiratory failure with hypoxia and hypercapnia (Chronic) PVD (peripheral vascular disease) (Chronic) Stage 3 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) PND (paroxysmal nocturnal dyspnea) (Chronic) Hyperlipidemia (Chronic) SOB (shortness of breath) (Acute) assisted current use of anticoagulant (Chronic) COPD (chronic obstructive pulmonary disease) (Chronic) CAP (community acquired pneumonia) (Chronic) Acute on chronic respiratory failure with hypoxia (Resolved) Psoriatic arthritis (Chronic) CHF (congestive heart failure), NYHA class I (Chronic) Pulmonary hypertension (Chronic) Surgical History History of left heart catheterization (Chronic) Family History Mother Heart disease Brother CVA (cerebral vascular accident) Father Cancer brain Grandmother Diabetes Social History Smoking Status: Former smoker how long ago did patient quit smokin, 1.5p/day second hand exposure: Yes alcohol intake: never substance use type: does not use caffeine: Yes Type: coffee Number of servings: 2 what type of physical activity do you participate in: walking frequency: 3-4 times per week Review of Systems Const CONSTITUTIONAL: Positive fatigue; negative anorexia, body ache, chills, daytime sleepiness, fever(s), night sweats, oral thrush, stops breathing during sleep, weight loss, sleeping in chair, weight loss, weight gain, frequent colds, seasonal allergies, other, orthopnea or headache(s) EETM Ear Nose Throat Mouth: Positive hard of hearing and nasal discharge; negative hoarseness, dry mouth in morning, change in vision, itchy eyes, eye pain, swallowing Difficulty, ear pain, nose bleed, headache(s), mouth pain, nasal congestion, post nasal drip, sinus pain, sinus pressure, sore throat or other Cardio Cardiovascular: Negative chest pain, chest pain at rest, chest pain with activity, irregular heart rhythm, edema, shortness of breath when lying down, palpitations, murmur or other Resp Respiratory: Positive as per HPI, shortness of breath (no change since last visit ) shortness of breath: Positive with activity and inhalers; negative pain with cough, wheezing, chest congestion, cough, chest tightness, pain on inspiration, increase use of rescue inhalers, snoring, apnea or other Gastro Gastrointestional: Negative bloody stools, change in appetite, difficulty swallowing, reflux, hematemesis, melena stool, loose stool, constipation or other Genitourinary: Negative blood in urine, nocturia, pain with urination or other Musc Musculoskeletal: Negative body pain, back pain, neck pain or other Skin/Breast Skin/Breast: Negative dry skin, itching, rash, unusual bruising, breast lump or other Neuro Neurological: Negative restless legs, confusion, weakness or other Psych Psychocological: Negative abnormal sleep pattern, anxiety, thoughts of hurting self/others, hopelessness or other Lymph Lymphatic: Negative easy bleeding, easy bruising, swollen lymph nodes or other Exam Const Constitutional: Positive conversant, cooperative, in no acute respiratory distress, healthy appearing, well developed, well nourished, good hygiene and wearing supplemental oxygen Head Head: Positive normocephalic and atraumatic; negative cyanosis of lips/distal nose, frontal sinus tenderness or maxillary sinus tenderness Eyes Eye: Positive clear conjunctiva; negative nystagmus, scleral abnormality or cataract present Ears Ear: Positive hard of hearing and external ears normal Nose Nose: Positive external nose normal, septum normal and no nasal discharge; negative epistaxis or nasal polyp Mouth Mouth: Positive oral mucosae normal, no lesions, dentures and posterior oropharynx is adequate; negative post nasal drip, malodorous breath or oral thrush present Mallampati Score: II: Mallampati Score Neck Neck: Positive normal visual inspection, full ROM and trachea midline; negative lymphadenopathy or JVD Chest Wall Chest: Positive symmetric chest movement and increased A/P diameter; negative crepitus or tenderness Resp lung sounds: Positive clear to auscultation, diminished diminished: Positive global, prolonged expiratory time and normal chronic state of increased work of breathing; negative wheezes, rhonchi, rales, use of accessory muscles, wheeze present on forced exhalation or dullness to percussion Cardio Cardiac: Positive regular rate, regular rhythm, S1 normal and S2 normal; negative murmur, rub or gallop GI GI: Positive normal to inspection and normal bowel sounds; negative distended, ascites or epigastric tenderness Genitourinary: Positive deferred Musc Musculoskeletal: Positive steady gait; negative using an assistive device for ambulation, kyphosis or scoliosis Skin Pulmonary Skin Exam: Positive intact, scaly and dermal atrophy; negative rash, lesion or ulcers Scattered ecchymotic areas Pulses Pulse: Yes radial pulses present Extremities Extremities: Yes capillary refill normal, Yes clubbing, No cyanosis, No edema Neuro Neurologic: Yes conversant, Yes no focal neuro deficits, Yes normal concentration, Yes understands questions, Yes cooperative, Yes normal cognition, Yes normal coordination Lymph Lymphatic: No lymphadenopathy Psych Appearance: Positive grossly normal Mental Status: Positive mental status grossly normal Mood: Positive congruent mood Affect: Positive normal affect Coding Level of Care Code Off vis,est,level 3 Diagnoses Stage 3 severe COPD by GOLD classification J44.9 Secondary pulmonary arterial hypertension I27.21 Chronic respiratory failure with hypoxia and hypercapnia J96.11; J96.12 12/23/17 0654 <Electronically signed by Clovis Rodríguez MD> Date Clovis Rodríguez MD [facility] Signature: Date (if applicable) CC: Jose Maurer III, MD PROTHROMBIN TIME W/INR Collected: 2017 Status: F Source: [place] 6:44 AM [facility] REPOSITORY Order Comment: CRITICAL VALUE VERIFIED. CALLED TO rakesh 12/22/17 0856 Kaylin Swanson. RESULTS READ BACK BY RAKESH . TYPE CODE TESTS RESULT OUT OF REFERENCE UNITS RANGE LAB L300.4150 11.7-14.9 SECONDS High PROTIME 39.4 LAB L300.4200 High alert INR 4.0 Performed By: #### L300.3900 #### [facility] [address] [place], [address] ECHOCARDIOGRAM COMPLETE Observed: 12/17/2017 Status: F Source: [place] 1:02 PM [facility] REPOSITORY [facility] Cardiovascular Services [address] [place] [address] Echo Complete 12/16/17 1414 MR#: [id number] Acct: [id number] Name: JIGNESH RAMIRES Rep #: [id number] : 1950 66 From: Case Florian MD Attending Dr: Case Florian MD [facility]: Case Florian MD Date: 12/16/17 Location: [facility] Sex: M C Admitted: Reason For Study: PHTN Procedure This was a 2D Doppler, Color Flow transthoracic echocardiogram. Exam performed in department. Left Ventricle Normal size and thickness. The estimated ejection fraction is 45-50 %. Stage 1 diastolic dysfunction. There is mild global hypokinesis of the left ventricle. Right Ventricle Mildly dilated right ventricle. ICD or pacer leads identified within the right ventricle. Normal systolic function. Atria Normal left atrium. Normal right atrium. Normal atrial septum. Mitral Valve The mitral valve is structurally normal. No prolapse or stenosis seen. Tricuspid Valve Normal tricuspid valve. Mild (1+) tricuspid valve insufficiency. Right ventricular systolic pressure estimated to be 46 mmHg. Mild pulmonary hypertension. Aortic Valve Normal aortic valve. Trisinus/trileaflet aortic valve. Pulmonic Valve Normal pulmonic valve. Great Vessels Normal aortic root. Normal arch. Normal inferior vena cava. Inferior vena cava collapse with sniff. Pericardium/Pleural No pericardial effusion. MMode/2D Measurements AND Calculations LVIDd: 5.1 cm IVSd: 0.96 cm Ao root diam: 3.1 cm LVIDs: 3.6 cm LVPWd: 0.89 cm RVDd: 3.8 cm FS: 28.7 % LAV(MOD-bp): 47.2 ml LA A4 area: 15.2 cm2 RA A4 area: 11.8 cm2 LAV(MOD-bp) Indexed: 27.1 ml/m2 LAV(MOD-sp2): 54.4 ml LAV(MOD-sp4): 39.2 ml Doppler Measurements AND Calculations MV E max jessica: 42.4 cm/sec Lat Peak E' Jessica: 10.0 cm/sec Med Peak E' Jessica: 6.5 cm/sec MV A max jessica: 76.6 cm/sec E/E' lat: 4.2 E/E' med: 6.5 MV E/A: 0.55 Ao V2 max: 108.6 cm/sec LV V1 max: 82.5 cm/sec TR max jessica: 295.8 cm/sec Ao max P.7 mmHg LV V1 max P.7 mmHg TR max P.3 mmHg Interpretation Summary The estimated ejection fraction is 45-50 %. Stage 1 diastolic dysfunction. There is mild global hypokinesis of the left ventricle. Mildly dilated right ventricle. Mild (1+) tricuspid valve insufficiency. Right ventricular systolic pressure estimated to be 46 mmHg. Mild pulmonary hypertension. Compared to echo report dated 12/17/2016, LV function has markedly improved from 20% to 45-50%. Ordering Physician: Case Florian Referring Physician: JOSE MAURER Performed By: Riana Scherer, SHADE, RVT 12/17/17 1301 Date Case Florian MD CC: Case Florian MD; Jose Maurer III, MD Date Dictated: 12/16/17 1414 Date Transcribed: 12/17/17 1301 Outsewer: Signed PROGRESS Observed: 12/11/2017 Status: COMPLETED Source: [place] 8:30 AM [facility] [place] REPOSITORY HNO ID: [id number] Author: Amalia Baltazar Service: (none) Author Type: Nurse Practitioner Type: Progress Notes Filed: 12/11/2017 8:54 AM Note Text: 12/11/2017 Patient presents with: URI SUBJECTIVE: This is a 66 year old that is here today for clear rhinorrhea, clearing throat with PND, sneezing. States that it started on 5 days ago. He states that it is much improved already, but with his history and his 's concern, he thought that he should still come in. He states that he started to use his fluticasone nasal spray again when he started to have the symptoms. He denies fever, chills, facial pain, ear pain, nasal congestion, increase in baseline SOB, CP, sore throat, change in appetite, body aches, fatigue. He continues to use noninvasive vent at night, 3L o2 with exertion and 4L with exercise, tolerating it well. PAST MEDICAL HISTORY Diagnosis Date - Arthritis of hand, degenerative 02/02/2014 - Benign non-nodular prostatic hyperplasia with lower urinary tract symptoms 01/09/2016 - Cardiomyopathy (HCC) - CHF (congestive heart failure) ([facility]) - Chronic obstructive pulmonary disease (COPD) ([facility]) - Diverticulosis of colon (without mention of hemorrhage) - HTN (hypertension) - Hyperlipidemia - ICD (implantable cardioverter-defibrillator) in place - Internal hemorrhoids without mention of complication - Moderate to severe pulmonary hypertension 04/01/2017 - NICM (nonischemic cardiomyopathy) ([facility]) - Obstructive chronic bronchitis ([facility]) 08/06/2010 - PMH - PAST MEDICAL HISTORY OF cystic acne - Psoriasis 02/02/2014 - Psoriatic arthritis ([facility]) 02/02/2014 - Pulmonary HTN - PVD (peripheral vascular disease) ([facility]) - Snoring - Systolic CHF ([facility]) ALLERGIES Review of patient's allergies indicates no known allergies. MEDICATIONS Current Outpatient Prescriptions: Omeprazole 40 mg capsule Take 1 capsule by mouth once daily. levothyroxine (LEVOXYL) 25 mcg tablet Take 1 tablet by mouth once daily. Take on empty stomach. For Thyroid ferrous sulfate 325 mg (65 mg iron) tablet Take 1 tablet by mouth twice daily with meals. hydroxychloroquine (PLAQUENIL) 200 mg tablet Take 1 tablet by mouth twice daily. fluticasone (FLONASE) 50 mcg/actuation nasal spray Use 1 [place] in each nostril once daily. COMPOUNDED PRESCRIPTION Knee high support stockings . 20-30 weightDIAGNOSIS: Venous insufficency I87.2 atorvastatin (LIPITOR) 40 mg tablet Take 40 mg by mouth once daily. carvedilol (COREG) 3.125 mg tablet Take 6.25 mg by mouth twice daily with meals. warfarin (COUMADIN) 5 mg tablet Take 5 mg by mouth daily as directed. OXYGEN, HOME THERAPY, by Nasal Cannula route as directed. 3L under exertion and 2L at rest 24/7. losartan (COZAAR) 25 mg tablet Take 25 mg by mouth once daily. furosemide (LASIX) 40 mg tablet Take 40 mg by mouth twice daily. COMPOUNDED PRESCRIPTION Please perform nocturnal pulse oximetry on 6 lpm O2 nasal cannula. Please fax results to [phone]. Diagnosis: Very severe COPD J44.9 COMPOUNDED PRESCRIPTION Please perform nocturnal pulse oximetry on 4 lpm O2 NC. Dx= Nocturnal Hypoxemia G47.34. Please fax results to [phone]. albuterol (PROVENTIL) 2.5 mg/0.5 mL nebulizer solution Use 0.5 mL via nebulizer every 6 hours as needed. COMPOUNDED PRESCRIPTION Please perform nocturnal oximetry on 2 lpm O2 NC.DX: Chronic hypoxemic respiratory failure COMPOUNDED PRESCRIPTION Please provide disability placard. 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 End date: 07/17/2021 COMPOUNDED PRESCRIPTION 1 Units four times daily as needed. NEBULIZER FOR HOME USE. DX: COPD exacerbation COMPOUNDED PRESCRIPTION Nebulizer, Mask, AND O2 Tubing. Use as directed. cholecalciferol (VITAMIN D) 1,000 unit tab tablet Taking 1600 IU 800 am and 800 pm budesonide-formoterol (SYMBICORT) 160-4.5 mcg/actuation inhaler Inhale 2 Puffs as instructed twice daily. albuterol HFA (PROAIR HFA) 90 mcg/actuation inhaler Inhale 2 Puffs as instructed every 4 hours as needed. aclidinium bromide (TUDORZA PRESSAIR) 400 mcg/actuation aepb Inhale 1 Inhalation as instructed twice daily. aspirin, enteric coated (ASPIRIN, ENTERIC COATED) 81 mg EC tablet Take 1 tablet by mouth once daily. multivitamin tablet Take 1 tablet by mouth once daily. COMPOUNDED PRESCRIPTION 2L of O2 at night. Length of need 99 months. Dx: COPD. COMPOUNDED PRESCRIPTION Please enroll in pulmonary rehab for severe obstructive airway disease.Adjust O2 prn spo2 >90%.Pre and post rehabilitation 6 minute walk test or exercise stress test to develop the exercise prescription and to monitor outcomes. No current facility-administered medications for this visit. Medications and allergies reviewed by this provider. SOCIAL HISTORY Social History Marital status: Spouse name: Renya Years of education: Number of children: 1 Social History Main Topics Smoking status: Former Smoker Packs/day: 0.50 Years: 30.00 Types: Cigarettes Quit date: 08/21/2011 Smokeless status: Never Used Alcohol use: Yes Comment: drinks 3 beer daily Drug use: No Other Topics Concern Caffeine Concern Yes Comment:two of coffee a day. Special Diet Yes Comment:low sodium Exercise Yes Comment:three times a week goes to gym and uses stationery bike. REVIEW OF SYSTEMS see HPI OBJECTIVE: BP 112/66 (BP Site: Left Arm, BP Position: Sitting, BP Cuff Size: Regular Adult) Pulse 78 Temp (!) 35.8 ?C (96.5 ?F) (Left Tympanic) Resp 16 Wt 69.6 kg (153 lb 6.4 oz) SpO2 98% BMI 24.03 kg/m2. Vital signs reviewed by this provider. PHYSICAL EXAMINATION: General appearance: Well appearing, alert, in no acute distress, well-hydrated, well nourished. Skin: nose with blue discoloration Head: Normocephalic, no masses, lesions, tenderness or abnormalities Eyes: Anicteric sclera. Pupils are equally round and reactive to light. Wearing glasses Ears: External ears normal, canals clear, TMs normal Nose/Sinuses: Nares normal, septum midline, mucosa normal, no drainage or sinus tenderness Oropharynx: Lips, mucosa, and tongue normal, teeth and gums normal, oropharynx normal and small amt thin clear PND Neck: Supple, no adenopathy; thyroid symmetric, normal size Lungs: Lungs clear to auscultation, but distant. No wheezing, rhonchi, rales. Sitting comfortably upright without o2 during visit. Uses o2 with exertion, no change in comfort level, no SOB observed. Heart: RRR without murmur, gallop, or rubs. No ectopy ASSESSMENT/PLAN: 1. Seasonal allergic rhinitis, unspecified trigger - ICD9: 477.9, ICD10: J30.2 - continue use of fluticasone - increase fluid intake - if symptoms return ok to try Claritin OTC - if symptoms worsen, increase SOB, CP, fever etc needs to be seen. No concern for viral or bacterial infection at this time. Amalia Baltazar APRN.MINERVA MARSHOV Observed: 12/11/2017 Status: COMPLETED Source: [place] 8:20 AM [facility] REPOSITORY [facility] JIGNESH RAMIRES ([id number]) 1950 M NFR Date Time Provider Department 12/11/17 8:20 AM AMALIA BALTAZAR) ELLIOT During your visit today, we recorded the following information about you: Temperature Pulse Respiration Blood pressure 96.5 degrees 78/minute 16/minute 112/66 Weight 69.6 kg Amalia Baltazar APRN.CNP 12/11/2017 8:54 AM Signed 12/11/2017 Patient presents with: URI SUBJECTIVE: This is a 66 year old that is here today for clear rhinorrhea, clearing throat with PND, sneezing. States that it started on 5 days ago. He states that it is much improved already, but with his history and his 's concern, he thought that he should still come in. He states that he started to use his fluticasone nasal spray again when he started to have the symptoms. He denies fever, chills, facial pain, ear pain, nasal congestion, increase in baseline SOB, CP, sore throat, change in appetite, body aches, fatigue. He continues to use noninvasive vent at night, 3L o2 with exertion and 4L with exercise, tolerating it well. PAST MEDICAL HISTORY Diagnosis Date - Arthritis of hand, degenerative 02/02/2014 - Benign non-nodular prostatic hyperplasia with lower urinary tract symptoms 01/09/2016 - Cardiomyopathy (HCC) - CHF (congestive heart failure) ([facility]) - Chronic obstructive pulmonary disease (COPD) ([facility]) - Diverticulosis of colon (without mention of hemorrhage) - HTN (hypertension) - Hyperlipidemia - ICD (implantable cardioverter-defibrillator) in place - Internal hemorrhoids without mention of complication - Moderate to severe pulmonary hypertension 04/01/2017 - NICM (nonischemic cardiomyopathy) ([facility]) - Obstructive chronic bronchitis (HCC) 08/06/2010 - PMH - PAST MEDICAL HISTORY OF cystic acne - Psoriasis 02/02/2014 - Psoriatic arthritis ([facility]) 02/02/2014 - Pulmonary HTN - PVD (peripheral vascular disease) ([facility]) - Snoring - Systolic CHF ([facility]) ALLERGIES Review of patient's allergies indicates no known allergies. MEDICATIONS Current Outpatient Prescriptions: Omeprazole 40 mg capsule Take 1 capsule by mouth once daily. levothyroxine (LEVOXYL) 25 mcg tablet Take 1 tablet by mouth once daily. Take on empty stomach. For Thyroid ferrous sulfate 325 mg (65 mg iron) tablet Take 1 tablet by mouth twice daily with meals. hydroxychloroquine (PLAQUENIL) 200 mg tablet Take 1 tablet by mouth twice daily. fluticasone (FLONASE) 50 mcg/actuation nasal spray Use 1 [place] in each nostril once daily. COMPOUNDED PRESCRIPTION Knee high support stockings . 20-30 weightDIAGNOSIS: Venous insufficency I87.2 atorvastatin (LIPITOR) 40 mg tablet Take 40 mg by mouth once daily. carvedilol (COREG) 3.125 mg tablet Take 6.25 mg by mouth twice daily with meals. warfarin (COUMADIN) 5 mg tablet Take 5 mg by mouth daily as directed. OXYGEN, HOME THERAPY, by Nasal Cannula route as directed. 3L under exertion and 2L at rest 24/. losartan (COZAAR) 25 mg tablet Take 25 mg by mouth once daily. furosemide (LASIX) 40 mg tablet Take 40 mg by mouth twice daily. COMPOUNDED PRESCRIPTION Please perform nocturnal pulse oximetry on 6 lpm O2 nasal cannula. Please fax results to [phone]. Diagnosis: Very severe COPD J44.9 COMPOUNDED PRESCRIPTION Please perform nocturnal pulse oximetry on 4 lpm O2 NC. Dx= Nocturnal Hypoxemia G47.34. Please fax results to [phone]. albuterol (PROVENTIL) 2.5 mg/0.5 mL nebulizer solution Use 0.5 mL via nebulizer every 6 hours as needed. COMPOUNDED PRESCRIPTION Please perform nocturnal oximetry on 2 lpm O2 NC.DX: Chronic hypoxemic respiratory failure COMPOUNDED PRESCRIPTION Please provide disability placard. 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 End date: 07/17/2021 COMPOUNDED PRESCRIPTION 1 Units four times daily as needed. NEBULIZER FOR HOME USE. DX: COPD exacerbation COMPOUNDED PRESCRIPTION Nebulizer, Mask, ANDamp; O2 Tubing. Use as directed. cholecalciferol (VITAMIN D) 1,000 unit tab tablet Taking 1600 IU 800 am and 800 pm budesonide-formoterol (SYMBICORT) 160-4.5 mcg/actuation inhaler Inhale 2 Puffs as instructed twice daily. albuterol HFA (PROAIR HFA) 90 mcg/actuation inhaler Inhale 2 Puffs as instructed every 4 hours as needed. aclidinium bromide (TUDORZA PRESSAIR) 400 mcg/actuation aepb Inhale 1 Inhalation as instructed twice daily. aspirin, enteric coated (ASPIRIN, ENTERIC COATED) 81 mg EC tablet Take 1 tablet by mouth once daily. multivitamin tablet Take 1 tablet by mouth once daily. COMPOUNDED PRESCRIPTION 2L of O2 at night. Length of need 99 months. Dx: COPD. COMPOUNDED PRESCRIPTION Please enroll in pulmonary rehab for severe obstructive airway disease.Adjust O2 prn spo2 ANDgt;90%.Pre and post rehabilitation 6 minute walk test or exercise stress test to develop the exercise prescription and to monitor outcomes. No current facility-administered medications for this visit. Medications and allergies reviewed by this provider. SOCIAL HISTORY Social History Marital status: Spouse name: Reyna Years of education: Number of children: 1 Social History Main Topics Smoking status: Former Smoker Packs/day: 0.50 Years: 30.00 Types: Cigarettes Quit date: 08/21/2011 Smokeless status: Never Used Alcohol use: Yes Comment: drinks 3 beer daily Drug use: No Other Topics Concern Caffeine Concern Yes Comment:two of coffee a day. Special Diet Yes Comment:low sodium Exercise Yes Comment:three times a week goes to gym and uses stationery bike. REVIEW OF SYSTEMS see HPI OBJECTIVE: BP 112/66 (BP Site: Left Arm, BP Position: Sitting, BP Cuff Size: Regular Adult) Pulse 78 Temp (!) 35.8 ?C (96.5 ?F) (Left Tympanic) Resp 16 Wt 69.6 kg (153 lb 6.4 oz) SpO2 98% BMI 24.03 kg/m2. Vital signs reviewed by this provider. PHYSICAL EXAMINATION: General appearance: Well appearing, alert, in no acute distress, well-hydrated, well nourished. Skin: nose with blue discoloration Head: Normocephalic, no masses, lesions, tenderness or abnormalities Eyes: Anicteric sclera. Pupils are equally round and reactive to light. Wearing glasses Ears: External ears normal, canals clear, TMs normal Nose/Sinuses: Nares normal, septum midline, mucosa normal, no drainage or sinus tenderness Oropharynx: Lips, mucosa, and tongue normal, teeth and gums normal, oropharynx normal and small amt thin clear PND Neck: Supple, no adenopathy; thyroid symmetric, normal size Lungs: Lungs clear to auscultation, but distant. No wheezing, rhonchi, rales. Sitting comfortably upright without o2 during visit. Uses o2 with exertion, no change in comfort level, no SOB observed. Heart: RRR without murmur, gallop, or rubs. No ectopy ASSESSMENT/PLAN: 1. Seasonal allergic rhinitis, unspecified trigger - ICD9: 477.9, ICD10: J30.2 - continue use of fluticasone - increase fluid intake - if symptoms return ok to try Claritin OTC - if symptoms worsen, increase SOB, CP, fever etc needs to be seen. No concern for viral or bacterial infection at this time. Amalia Baltazar APRN.MINERVA Baltazar APRN.MINERVA 12/11/2017 8:39 AM Signed If symptoms return try Claritin (loratadine). Continue to use fluticasone. Referring Provider: SELF [200] Allergies As of Date: 12/11/2017 (No Known Allergies) Date Reviewed: 12/11/2017 Reviewed by: Pat Garrido Ma - Fully Assessed Reason for Visit: URI [115] Primary Visit Diagnosis:Seasonal allergic rhinitis, unspecified trigger [J30.2] Prescriptions as of 12/11/2017 Sig: OMEPRAZOLE 40 MG CAPSULE,MARÍA* Take 1 capsule by mouth once * LEVOTHYROXINE 25 MCG TABLET Take 1 tablet by mouth once d* FERROUS SULFATE 325 MG (65 MG* Take 1 tablet by mouth twice * HYDROXYCHLOROQUINE 200 MG TAB* Take 1 tablet by mouth twice * FLUTICASONE 50 MCG/ACTUATION * Use 1 [place] in each nostril o* COMPOUNDED PRESCRIPTION Knee high support stockings .* ATORVASTATIN 40 MG TABLET Take 40 mg by mouth once wilian* CARVEDILOL 3.125 MG TABLET Take 6.25 mg by mouth twice d* WARFARIN 5 MG TABLET Take 5 mg by mouth daily as d* OXYGEN (HOME THERAPY) by Nasal Cannula route as dir* LOSARTAN 25 MG TABLET Take 25 mg by mouth once wilian* FUROSEMIDE 40 MG TABLET Take 40 mg by mouth twice raheem* COMPOUNDED PRESCRIPTION Please perform nocturnal puls* COMPOUNDED PRESCRIPTION Please perform nocturnal puls* ALBUTEROL SULFATE CONCENTRATE* Use 0.5 mL via nebulizer ever* COMPOUNDED PRESCRIPTION Please perform nocturnal oxim* COMPOUNDED PRESCRIPTION Please provide disability monika* COMPOUNDED PRESCRIPTION 1 Units four times daily as n* COMPOUNDED PRESCRIPTION Nebulizer, Mask, AND O2 Tubing.* CHOLECALCIFEROL (VITAMIN D3) * Taking 1600 IU 800 am and 800* BUDESONIDE-FORMOTEROL HFA 160* Inhale 2 Puffs as instructed * ALBUTEROL SULFATE HFA 90 MCG/* Inhale 2 Puffs as instructed * ACLIDINIUM BROMIDE 400 MCG/AC* Inhale 1 Inhalation as instru* ASPIRIN 81 MG TABLET,DELAYED * Take 1 tablet by mouth once d* MULTIVITAMIN TABLET Take 1 tablet by mouth once d* COMPOUNDED PRESCRIPTION 2L of O2 at night. Length of* COMPOUNDED PRESCRIPTION Please enroll in pulmonary re* Problem List As Of Date 12/11/2017 Noted Resolved DYSMETABOLIC SYNDROME X [E88.81] INVALID FOR* OBST CHRON BRONCHITIS WITH EXAC [J44.1] INVALID FOR* Tobacco use disorder [F17.200] INVALID FOR*01/09/2016 Obstructive chronic bronchitis [J44.9] INVALID FOR* Arthritis of hand, 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] INVALID FOR* Psoriatic arthritis (HCC) [L40.50] INVALID FOR* Psoriasis [L40.9] INVALID FOR* Benign non-nodular prostatic hyperplasia with l*INVALID FOR* Encounter for long-term (current) use of medica*INVALID FOR* Hypothyroidism [E03.9] INVALID FOR* Venous stasis dermatitis of right lower extremi*INVALID FOR* 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 Continue to use fluticasone. Disposition: Return if symptoms worsen or fail to improve. Follow-up and Disposition History Recorded Encounter Status:Closed by AMALIA BALTAZAR on 12/11/17 PROTHROMBIN TIME W/INR Collected: 12/01/2017 Status: F Source: [place] 7:14 AM [facility] REPOSITORY TYPE CODE TESTS RESULT OUT OF RANGE REFERENCE UNITS LAB L300.4150 11.7-14.9 SECONDS High PROTIME 23.0 LAB L300.4200 Normal INR 2.0 Performed By: #### L300.3900 #### [facility] [address] [place], [address] PROTHROMBIN TIME W/INR Collected: 11/24/2017 Status: F Source: [place] 6:37 AM [facility] REPOSITORY TYPE CODE TESTS RESULT OUT OF RANGE REFERENCE UNITS LAB L300.4150 11.7-14.9 SECONDS High PROTIME 16.1 LAB L300.4200 Normal INR 1.3 Performed By: #### L300.3900 #### [facility] [address] [facility] [place], [address] PULMONARY FUNCTION Observed: 11/17/2017 Status: F Source: [place] REPORT COMP 2:30 PM [facility] REPOSITORY [facility] Pulmonary Services/Neurology [address] [place] [id number] MR#: [id number] Acct: [id number] Name: JIGNESH RAMIRES Rep #: [id number] : 1950 66 From: Clovis Rodríguez MD Referring Dr: Cheryl Schaeffer MANAGER OF PROCUREMENT Status: REG CLI Ordering Dr: Date: Location: [facility] Sex: M C COMPLETE PULMONARY FUNCTION TEST INTERPRETATION Brief HPI: Patient is a 66 year old male, currently under the care of Cheryl Schaeffer, who presents to [facility] for complete pulmonary function tests secondary to diagnosis of COPD. Respiratory therapist reports good effort and reproducible results. Interpretation: Forced expiration spirometry shows a very severe large airways obstructive ventilatory defect with an FEV1 of 31 % predicted. There is a significant bronchodilator response in FVC by ATS criteria. Spirograms are of good quality and plateau slowly, indicating slowly emptying areas of the lungs. The respiratory flow volume loop shows decreased expiratory flow rates at all lung volumes consistent with airway obstruction. Lung volumes by body plethysmography show a normal total lung capacity at 6.31 L, 117% predicted. FRC and RV are elevated out of proportion. Lung volume measurements are consistent with air-trapping. Diffusion capacity by carbon monoxide is decreased at 49 % predicted. The airway resistance is elevated. Compared to previous pulmonary function tests from 11/05/2016, there has been a significant change in air trapping with hyperinflation (improvement). Impression: Partially reversible very severe large airways obstructive ventilatory defect with symmetric reduction diffusing capacity and improvement in air trapping compared to previous study. 11/17/17 1430 <Electronically signed by Clovis Rodríguez MD> Date Clovis Rodríguez MD CC: Clovis Rodríguez MD; Cheryl Schaeffer; Jose Maurer III, MD Date Dictated: 11/17/171426 Date Transcribed: 11/17/171426 Outsewer: ISABELA Signed PROGRESS Observed: 11/16/2017 Status: COMPLETED Source: [place] 4:49 PM [facility] [place] REPOSITORY HNO ID: [id number] Author: Jose Maurer III Service: (none) Author Type: Physician Type: Progress Notes Filed: 11/16/2017 8:42 PM Note Text: SUBJECTIVE: This is a 66 year old male that is here today for 1. tremor in both hands, worse with writing. 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 Initially noted internal shakiness. Not associated with inhaler use. No new meds. T4 5.4 TSH 2.24. Admits to drinking 6 beers/day and 1 shot whiskey every night. PAST MEDICAL HISTORY Diagnosis Date - Arthritis of hand, degenerative 02/02/2014 - Benign non-nodular prostatic hyperplasia with lower urinary tract symptoms 01/09/2016 - Cardiomyopathy (HCC) - CHF (congestive heart failure) (HCC) - Chronic obstructive pulmonary disease (COPD) ([facility]) - Diverticulosis of colon (without mention of hemorrhage) - HTN (hypertension) - Hyperlipidemia - ICD (implantable cardioverter-defibrillator) in place - Internal hemorrhoids without mention of complication - Moderate to severe pulmonary hypertension 04/01/2017 - NICM (nonischemic cardiomyopathy) ([facility]) - Obstructive chronic bronchitis ([facility]) 08/06/2010 - PMH - PAST MEDICAL HISTORY OF cystic acne - Psoriasis 02/02/2014 - Psoriatic arthritis (HCC) 02/02/2014 - Pulmonary HTN - PVD (peripheral vascular disease) ([facility]) - Snoring - Systolic CHF (HCC) Current Outpatient Prescriptions on File Prior to Visit: Omeprazole 40 mg capsule Take 1 capsule by mouth once daily. levothyroxine (LEVOXYL) 25 mcg tablet Take 1 tablet by mouth once daily. Take on empty stomach. For Thyroid ferrous sulfate 325 mg (65 mg iron) tablet Take 1 tablet by mouth twice daily with meals. hydroxychloroquine (PLAQUENIL) 200 mg tablet Take 1 tablet by mouth twice daily. fluticasone (FLONASE) 50 mcg/actuation nasal spray Use 1 [place] in each nostril once daily. COMPOUNDED PRESCRIPTION Knee high support stockings . 20-30 weightDIAGNOSIS: Venous insufficency I87.2 atorvastatin (LIPITOR) 40 mg tablet Take 40 mg by mouth once daily. carvedilol (COREG) 3.125 mg tablet Take 6.25 mg by mouth twice daily with meals. warfarin (COUMADIN) 5 mg tablet Take 5 mg by mouth daily as directed. OXYGEN, HOME THERAPY, by Nasal Cannula route as directed. 3L under exertion and 2L at rest /. losartan (COZAAR) 25 mg tablet Take 25 mg by mouth once daily. furosemide (LASIX) 40 mg tablet Take 40 mg by mouth twice daily. COMPOUNDED PRESCRIPTION Please perform nocturnal pulse oximetry on 6 lpm O2 nasal cannula. Please fax results to [phone]. Diagnosis: Very severe COPD J44.9 COMPOUNDED PRESCRIPTION Please perform nocturnal pulse oximetry on 4 lpm O2 NC. Dx= Nocturnal Hypoxemia G47.34. Please fax results to [phone]. albuterol (PROVENTIL) 2.5 mg/0.5 mL nebulizer solution Use 0.5 mL via nebulizer every 6 hours as needed. COMPOUNDED PRESCRIPTION Please perform nocturnal oximetry on 2 lpm O2 NC.DX: Chronic hypoxemic respiratory failure COMPOUNDED PRESCRIPTION Please provide disability placard. 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 End date: 07/17/2021 COMPOUNDED PRESCRIPTION 1 Units four times daily as needed. NEBULIZER FOR HOME USE. DX: COPD exacerbation COMPOUNDED PRESCRIPTION Nebulizer, Mask, AND O2 Tubing. Use as directed. cholecalciferol (VITAMIN D) 1,000 unit tab tablet Taking 1600 IU 800 am and 800 pm budesonide-formoterol (SYMBICORT) 160-4.5 mcg/actuation inhaler Inhale 2 Puffs as instructed twice daily. albuterol HFA (PROAIR HFA) 90 mcg/actuation inhaler Inhale 2 Puffs as instructed every 4 hours as needed. aclidinium bromide (TUDORZA PRESSAIR) 400 mcg/actuation aepb Inhale 1 Inhalation as instructed twice daily. aspirin, enteric coated (ASPIRIN, ENTERIC COATED) 81 mg EC tablet Take 1 tablet by mouth once daily. multivitamin tablet Take 1 tablet by mouth once daily. COMPOUNDED PRESCRIPTION 2L of O2 at night. Length of need 99 months. Dx: COPD. COMPOUNDED PRESCRIPTION Please enroll in pulmonary rehab for severe obstructive airway disease.Adjust O2 prn spo2 >90%.Pre and post rehabilitation 6 minute walk test or exercise stress test to develop the exercise prescription and to monitor outcomes. No current facility-administered medications on file prior to visit. FAMILY HISTORY Problem Relation Age of Onset - Ischemic Heart Disease Mother - Cancer Father brain cancer - Diabetes Maternal Grandmother - Stroke Brother Social History Substance Use Topics - Smoking status: Former Smoker Packs/day: 0.50 Years: 30.00 Types: Cigarettes Quit date: 08/21/2011 - Smokeless tobacco: Never Used - Alcohol use Yes Comment: drinks 3 beer daily BP 154/83 Pulse 79 Temp 36.9 ?C (98.4 ?F) (Tympanic) Wt 67.6 kg (149 lb) BMI 23.34 kg/m2 . OBJECTIVE: APPEARANCE Well appearing, alert, in no acute distress, well-hydrated, well nourished. NEURO Awake, alert and oriented x 3, Cranial nerves II-XII grossly intact, Reflexes symmetrical, Normal gait and positive findings: intention tremor of fingers EARS: total cerumen impaction bilat. ASSESSMENT: benign essential tremor cerumen impaction heavy alcohol use PLAN: reduce alcohol intake to no more than 2 servings/day continue present medications follow bp with nurse check in 2 wks bilateral ear lavage--good success w/o complications Jose Maurer III MD Jose Maurer III MD SILVA Observed: 11/16/2017 Status: COMPLETED Source: [place] 4:20 PM [facility] REPOSITORY Office Visit (FAMPWS) JIGNESH RAMIRES ([id number]) 1950 M NFR Date Time Provider Department 11/16/17 4:20 PM JOSE MAURER III During your visit today, we recorded the following information about you: Temperature Pulse Blood pressure Weight 98.4 degrees 79/minute 126/76 67.6 kg Jose Maurer III MD 11/16/2017 8:42 PM Signed SUBJECTIVE: This is a 66 year old male that is here today for 1. tremor in both hands, worse with writing. 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 Initially noted internal shakiness. Not associated with inhaler use. No new meds. T4 5.4 TSH 2.24. Admits to drinking 6 beers/day and 1 shot whiskey every night. PAST MEDICAL HISTORY Diagnosis Date - Arthritis of hand, degenerative 02/02/2014 - Benign non-nodular prostatic hyperplasia with lower urinary tract symptoms 01/09/2016 - Cardiomyopathy (HCC) - CHF (congestive heart failure) (HCC) - Chronic obstructive pulmonary disease (COPD) (HCC) - Diverticulosis of colon (without mention of hemorrhage) - HTN (hypertension) - Hyperlipidemia - ICD (implantable cardioverter-defibrillator) in place - Internal hemorrhoids without mention of complication - Moderate to severe pulmonary hypertension 04/01/2017 - NICM (nonischemic cardiomyopathy) ([facility]) - Obstructive chronic bronchitis (HCC) 08/06/2010 - PM - PAST MEDICAL HISTORY OF cystic acne - Psoriasis 02/02/2014 - Psoriatic arthritis (HCC) 02/02/2014 - Pulmonary HTN - PVD (peripheral vascular disease) ([facility]) - Snoring - Systolic CHF (HCC) Current Outpatient Prescriptions on File Prior to Visit: Omeprazole 40 mg capsule Take 1 capsule by mouth once daily. levothyroxine (LEVOXYL) 25 mcg tablet Take 1 tablet by mouth once daily. Take on empty stomach. For Thyroid ferrous sulfate 325 mg (65 mg iron) tablet Take 1 tablet by mouth twice daily with meals. hydroxychloroquine (PLAQUENIL) 200 mg tablet Take 1 tablet by mouth twice daily. fluticasone (FLONASE) 50 mcg/actuation nasal spray Use 1 [place] in each nostril once daily. COMPOUNDED PRESCRIPTION Knee high support stockings . 20-30 weightDIAGNOSIS: Venous insufficency I87.2 atorvastatin (LIPITOR) 40 mg tablet Take 40 mg by mouth once daily. carvedilol (COREG) 3.125 mg tablet Take 6.25 mg by mouth twice daily with meals. warfarin (COUMADIN) 5 mg tablet Take 5 mg by mouth daily as directed. OXYGEN, HOME THERAPY, by Nasal Cannula route as directed. 3L under exertion and 2L at rest 09/03. losartan (COZAAR) 25 mg tablet Take 25 mg by mouth once daily. furosemide (LASIX) 40 mg tablet Take 40 mg by mouth twice daily. COMPOUNDED PRESCRIPTION Please perform nocturnal pulse oximetry on 6 lpm O2 nasal cannula. Please fax results to [phone]. Diagnosis: Very severe COPD J44.9 COMPOUNDED PRESCRIPTION Please perform nocturnal pulse oximetry on 4 lpm O2 NC. Dx= Nocturnal Hypoxemia G47.34. Please fax results to [phone]. albuterol (PROVENTIL) 2.5 mg/0.5 mL nebulizer solution Use 0.5 mL via nebulizer every 6 hours as needed. COMPOUNDED PRESCRIPTION Please perform nocturnal oximetry on 2 lpm O2 NC.DX: Chronic hypoxemic respiratory failure COMPOUNDED PRESCRIPTION Please provide disability placard. 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 End date: 07/17/2021 COMPOUNDED PRESCRIPTION 1 Units four times daily as needed. NEBULIZER FOR HOME USE. DX: COPD exacerbation COMPOUNDED PRESCRIPTION Nebulizer, Mask, ANDamp; O2 Tubing. Use as directed. cholecalciferol (VITAMIN D) 1,000 unit tab tablet Taking 1600 IU 800 am and 800 pm budesonide-formoterol (SYMBICORT) 160-4.5 mcg/actuation inhaler Inhale 2 Puffs as instructed twice daily. albuterol HFA (PROAIR HFA) 90 mcg/actuation inhaler Inhale 2 Puffs as instructed every 4 hours as needed. aclidinium bromide (TUDORZA PRESSAIR) 400 mcg/actuation aepb Inhale 1 Inhalation as instructed twice daily. aspirin, enteric coated (ASPIRIN, ENTERIC COATED) 81 mg EC tablet Take 1 tablet by mouth once daily. multivitamin tablet Take 1 tablet by mouth once daily. COMPOUNDED PRESCRIPTION 2L of O2 at night. Length of need 99 months. Dx: COPD. COMPOUNDED PRESCRIPTION Please enroll in pulmonary rehab for severe obstructive airway disease.Adjust O2 prn spo2 ANDgt;90%.Pre and post rehabilitation 6 minute walk test or exercise stress test to develop the exercise prescription and to monitor outcomes. No current facility-administered medications on file prior to visit. FAMILY HISTORY Problem Relation Age of Onset - Ischemic Heart Disease Mother - Cancer Father brain cancer - Diabetes Maternal Grandmother - Stroke Brother Social History Substance Use Topics - Smoking status: Former Smoker Packs/day: 0.50 Years: 30.00 Types: Cigarettes Quit date: 08/21/2011 - Smokeless tobacco: Never Used - Alcohol use Yes Comment: drinks 3 beer daily BP 154/83 Pulse 79 Temp 36.9 ?C (98.4 ?F) (Tympanic) Wt 67.6 kg (149 lb) BMI 23.34 kg/m2 . OBJECTIVE: APPEARANCE Well appearing, alert, in no acute distress, well- hydrated, well nourished. NEURO Awake, alert and oriented x 3, Cranial nerves II-XII grossly intact, Reflexes symmetrical, Normal gait and positive findings: intention tremor of fingers EARS: total cerumen impaction bilat. ASSESSMENT: benign essential tremor cerumen impaction heavy alcohol use PLAN: reduce alcohol intake to no more than 2 servings/day continue present medications follow bp with nurse check in 2 wks bilateral ear lavage--good success w/o complications RAÚL Colunga MD, III MD Frank A Cebul, III MD 11/16/2017 5:12 PM Signed PLAN: reduce alcohol intake to no more than 2 servings/day continue present medications follow bp with nurse check in 2 wks ear lavage Jose Maurer III MD Referring Provider: SELF [[id number]] Allergies As of Date: 11/16/2017 (No Known Allergies) Date Reviewed: 11/16/2017 Reviewed by: Sameera Torres [facility] - Fully Assessed Reason for Visit: Recheck [92] Cmt: tremors- trouble gripping and writing - Reason For Visit History Recorded Primary Visit Diagnosis:Benign essential tremor [G25.0] Other Visit Diagnoses:Heavy alcohol use [Z72.89] Bilateral impacted cerumen [H61.23] Prescriptions as of 11/16/2017 Sig: OMEPRAZOLE 40 MG CAPSULE,MARÍA* Take 1 capsule by mouth once * LEVOTHYROXINE 25 MCG TABLET Take 1 tablet by mouth once d* FERROUS SULFATE 325 MG (65 MG* Take 1 tablet by mouth twice * HYDROXYCHLOROQUINE 200 MG TAB* Take 1 tablet by mouth twice * FLUTICASONE 50 MCG/ACTUATION * Use 1 [place] in each nostril o* COMPOUNDED PRESCRIPTION Knee high support stockings .* ATORVASTATIN 40 MG TABLET Take 40 mg by mouth once wilian* CARVEDILOL 3.125 MG TABLET Take 6.25 mg by mouth twice d* WARFARIN 5 MG TABLET Take 5 mg by mouth daily as d* OXYGEN (HOME THERAPY) by Nasal Cannula route as dir* LOSARTAN 25 MG TABLET Take 25 mg by mouth once wilian* FUROSEMIDE 40 MG TABLET Take 40 mg by mouth twice raheem* COMPOUNDED PRESCRIPTION Please perform nocturnal puls* COMPOUNDED PRESCRIPTION Please perform nocturnal puls* ALBUTEROL SULFATE CONCENTRATE* Use 0.5 mL via nebulizer ever* COMPOUNDED PRESCRIPTION Please perform nocturnal oxim* COMPOUNDED PRESCRIPTION Please provide disability monika* COMPOUNDED PRESCRIPTION 1 Units four times daily as n* COMPOUNDED PRESCRIPTION Nebulizer, Mask, AND O2 Tubing.* CHOLECALCIFEROL (VITAMIN D3) * Taking 1600 IU 800 am and 800* BUDESONIDE-FORMOTEROL HFA 160* Inhale 2 Puffs as instructed * ALBUTEROL SULFATE HFA 90 MCG/* Inhale 2 Puffs as instructed * ACLIDINIUM BROMIDE 400 MCG/AC* Inhale 1 Inhalation as instru* ASPIRIN 81 MG TABLET,DELAYED * Take 1 tablet by mouth once d* MULTIVITAMIN TABLET Take 1 tablet by mouth once d* COMPOUNDED PRESCRIPTION 2L of O2 at night. Length of* COMPOUNDED PRESCRIPTION Please enroll in pulmonary re* Problem List As Of Date 11/16/2017 Noted Resolved DYSMETABOLIC SYNDROME X [E88.81] INVALID FOR* OBST CHRON BRONCHITIS WITH EXAC [J44.1] INVALID FOR* Tobacco use disorder [F17.200] INVALID FOR*01/09/2016 Obstructive chronic bronchitis [J44.9] INVALID FOR* Arthritis of hand, 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] INVALID FOR* Psoriatic arthritis (HCC) [L40.50] INVALID FOR* Psoriasis [L40.9] INVALID FOR* Benign non-nodular prostatic hyperplasia with l*INVALID FOR* Encounter for long-term (current) use of medica*INVALID FOR* Hypothyroidism [E03.9] INVALID FOR* Venous stasis dermatitis of right lower extremi*INVALID FOR* 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] INVALID FOR* CHF (congestive heart failure) (HCC) [I50.9] Cardiomyopathy (HCC) [I42.9] ICD (implantable cardioverter-defibrillator) in* Moderate to severe pulmonary hypertension (HCC)*INVALID FOR* Anemia [D64.9] INVALID FOR* assisted current use of anticoagulant therapy *INVALID FOR* Gastroesophageal reflux disease [K21.9] INVALID FOR* Heavy alcohol use [Z72.89] INVALID FOR* Other instructions from your clinician: PLAN: reduce alcohol intake to no more than 2 servings/day continue present medications follow bp with nurse check in 2 wks ear lavage Jose Maurer III MD Encounter Status:Closed by JOSE MAURER III, MD on 11/16/17 PROGRESS Observed: 11/13/2017 Status: COMPLETED Source: [place] 5:42 PM [facility] REPOSITORY HNO ID: [id number] Author: Margarita Reddy Service: (none) Author Type: Nurse Practitioner Type: Progress Notes Filed: 11/13/2017 5:50 PM Note Text: Subjective HPI Pt presents with c/o bilateral hand tremors x several weeks. States his hand grasp has been weakening over the past year. Has noticed hand writing is progressively worse, appears shaky. Tremors are worse when grasping an object. Denies numbness, tingling, pain to hand wrist. Denies fever, chills, WEBBER, vision changes. Upon further questioning admits to BUE rigidity and limited ROM. Has not been evaluated for these sx. Review of Systems Constitutional: Negative for chills, diaphoresis, fever, malaise/fatigue and weight loss. Neurological: Positive for tremors. Negative for dizziness, tingling, sensory change, speech change, focal weakness, seizures, loss of consciousness and headaches. Objective Physical Exam Constitutional: He is oriented to person, place, and time and well-developed, well-nourished, and in no distress. No distress. Neurological: He is alert and oriented to person, place, and time. He has intact cranial nerves. He displays facial symmetry. No cranial nerve deficit. Gait normal. GCS score is 15. Hand grasps 4/5 equal bilaterally. No tremor noted during exam. Skin: He is not diaphoretic. BP 140/90 Pulse 73 Temp (!) 35.8 ?C (96.4 ?F) (Left Tympanic) Resp 20 Wt 72.6 kg (160 lb) SpO2 99% BMI 25.06 kg/m2 .Patient presents with: Tremor PAST MEDICAL HISTORY Diagnosis Date - Arthritis of hand, degenerative 02/02/2014 - Benign non-nodular prostatic hyperplasia with lower urinary tract symptoms 01/09/2016 - Cardiomyopathy (HCC) - CHF (congestive heart failure) (HCC) - Chronic obstructive pulmonary disease (COPD) ([facility]) - Diverticulosis of colon (without mention of hemorrhage) - HTN (hypertension) - Hyperlipidemia - ICD (implantable cardioverter-defibrillator) in place - Internal hemorrhoids without mention of complication - Moderate to severe pulmonary hypertension 04/01/2017 - NICM (nonischemic cardiomyopathy) ([facility]) - Obstructive chronic bronchitis (HCC) 08/06/2010 - PMH - PAST MEDICAL HISTORY OF cystic acne - Psoriasis 02/02/2014 - Psoriatic arthritis ([facility]) 02/02/2014 - Pulmonary HTN - PVD (peripheral vascular disease) ([facility]) - Snoring - Systolic CHF (HCC) PAST SURGICAL HISTORY Procedure Laterality Date - BASIC ICD SINGLE CHAMBER 01/13/2017 [facility] - COLONOSCOP W/ OR W/O [facility] SPEC 11/18/06 - COLONOSCOP W/ OR W/O [facility] SPEC 12/07/2014 Colonoscopy - ECHOCARDIOGRAM 08/28/2016 EF 20-25% - HEART CATHETERIZATION 08/27/2016 - PAST SURGICAL HISTORY OF cysts removed ALLERGIES Review of patient's allergies indicates no known allergies. MEDICATIONS Omeprazole 40 mg capsule Take 1 capsule by mouth once daily. levothyroxine (LEVOXYL) 25 mcg tablet Take 1 tablet by mouth once daily. Take on empty stomach. For Thyroid ferrous sulfate 325 mg (65 mg iron) tablet Take 1 tablet by mouth twice daily with meals. hydroxychloroquine (PLAQUENIL) 200 mg tablet Take 1 tablet by mouth twice daily. fluticasone (FLONASE) 50 mcg/actuation nasal spray Use 1 [place] in each nostril once daily. COMPOUNDED PRESCRIPTION Knee high support stockings . 20-30 weightDIAGNOSIS: Venous insufficency I87.2 atorvastatin (LIPITOR) 40 mg tablet Take 40 mg by mouth once daily. carvedilol (COREG) 3.125 mg tablet Take 6.25 mg by mouth twice daily with meals. warfarin (COUMADIN) 5 mg tablet Take 5 mg by mouth daily as directed. OXYGEN, HOME THERAPY, by Nasal Cannula route as directed. 3L under exertion and 2L at rest 09/03. losartan (COZAAR) 25 mg tablet Take 25 mg by mouth once daily. furosemide (LASIX) 40 mg tablet Take 40 mg by mouth twice daily. COMPOUNDED PRESCRIPTION Please perform nocturnal pulse oximetry on 6 lpm O2 nasal cannula. Please fax results to [phone]. Diagnosis: Very severe COPD J44.9 COMPOUNDED PRESCRIPTION Please perform nocturnal pulse oximetry on 4 lpm O2 NC. Dx= Nocturnal Hypoxemia G47.34. Please fax results to [phone]. albuterol (PROVENTIL) 2.5 mg/0.5 mL nebulizer solution Use 0.5 mL via nebulizer every 6 hours as needed. COMPOUNDED PRESCRIPTION Please perform nocturnal oximetry on 2 lpm O2 NC.DX: Chronic hypoxemic respiratory failure COMPOUNDED PRESCRIPTION Please provide disability placard. 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 End date: 07/17/2021 COMPOUNDED PRESCRIPTION 1 Units four times daily as needed. NEBULIZER FOR HOME USE. DX: COPD exacerbation COMPOUNDED PRESCRIPTION Nebulizer, Mask, AND O2 Tubing. Use as directed. cholecalciferol (VITAMIN D) 1,000 unit tab tablet Taking 1600 IU 800 am and 800 pm budesonide-formoterol (SYMBICORT) 160-4.5 mcg/actuation inhaler Inhale 2 Puffs as instructed twice daily. albuterol HFA (PROAIR HFA) 90 mcg/actuation inhaler Inhale 2 Puffs as instructed every 4 hours as needed. aclidinium bromide (TUDORZA PRESSAIR) 400 mcg/actuation aepb Inhale 1 Inhalation as instructed twice daily. aspirin, enteric coated (ASPIRIN, ENTERIC COATED) 81 mg EC tablet Take 1 tablet by mouth once daily. multivitamin tablet Take 1 tablet by mouth once daily. COMPOUNDED PRESCRIPTION 2L of O2 at night. Length of need 99 months. Dx: COPD. COMPOUNDED PRESCRIPTION Please enroll in pulmonary rehab for severe obstructive airway disease.Adjust O2 prn spo2 >90%.Pre and post rehabilitation 6 minute walk test or exercise stress test to develop the exercise prescription and to monitor outcomes. FAMILY HISTORY Problem Relation Age of Onset - Ischemic Heart Disease Mother - Cancer Father brain cancer - Diabetes Maternal Grandmother - Stroke Brother Social History Substance Use Topics - Smoking status: Former Smoker Packs/day: 0.50 Years: 30.00 Types: Cigarettes Quit date: 08/21/2011 - Smokeless tobacco: Never Used - Alcohol use Yes Comment: drinks 3 beer daily ASSESSMENT/PLAN: 1. Tremor - ICD9: 781.0, ICD10: R25.1 - CONSULT TO INTERNAL MEDICINE PSR assisting pt in scheduling f/u visit for next week. Reviewed Red Flag SANDS acute neuro sx. Pt verbalizes understanding of SANDS requiring emergent evaluation. The patient is instructed to return or seek emergency treatment if symptoms become worse or with any acute change in condition. The patient verbalizes understanding and is in agreement with plan of care. Margarita Reddy CNP CNOV Observed: 11/13/2017 Status: COMPLETED Source: [place] 4:45 PM [facility] REPOSITORY Office Visit (WSTR) IKEJIGNESH ([id number]) 1950 M NFR Date Time Provider Department 11/13/17 4:45 PM MARGARITA REDDY [facility] During your visit today, we recorded the following information about you: Temperature Pulse Respiration Blood pressure 96.4 degrees 73/minute 20/minute 140/90 Weight 72.6 kg Margarita Reddy APRN.MINERVA 11/13/2017 5:50 PM Signed Subjective HPI Pt presents with c/o bilateral hand tremors x several weeks. States his hand grasp has been weakening over the past year. Has noticed hand writing is progressively worse, appears shaky. Tremors are worse when grasping an object. Denies numbness, tingling, pain to hand wrist. Denies fever, chills, WEBBER, vision changes. Upon further questioning admits to BUE rigidity and limited ROM. Has not been evaluated for these sx. Review of Systems Constitutional: Negative for chills, diaphoresis, fever, malaise/fatigue and weight loss. Neurological: Positive for tremors. Negative for dizziness, tingling, sensory change, speech change, focal weakness, seizures, loss of consciousness and headaches. Objective Physical Exam Constitutional: He is oriented to person, place, and time and well-developed, well-nourished, and in no distress. No distress. Neurological: He is alert and oriented to person, place, and time. He has intact cranial nerves. He displays facial symmetry. No cranial nerve deficit. Gait normal. GCS score is 15. Hand grasps 4/5 equal bilaterally. No tremor noted during exam. Skin: He is not diaphoretic. BP 140/90 Pulse 73 Temp (!) 35.8 ?C (96.4 ?F) (Left Tympanic) Resp 20 Wt 72.6 kg (160 lb) SpO2 99% BMI 25.06 kg/m2 .Patient presents with: Tremor PAST MEDICAL HISTORY Diagnosis Date - Arthritis of hand, degenerative 02/02/2014 - Benign non-nodular prostatic hyperplasia with lower urinary tract symptoms 01/09/2016 - Cardiomyopathy (HCC) - CHF (congestive heart failure) (HCC) - Chronic obstructive pulmonary disease (COPD) (HCC) - Diverticulosis of colon (without mention of hemorrhage) - HTN (hypertension) - Hyperlipidemia - ICD (implantable cardioverter-defibrillator) in place - Internal hemorrhoids without mention of complication - Moderate to severe pulmonary hypertension 04/01/2017 - NICM (nonischemic cardiomyopathy) ([facility]) - Obstructive chronic bronchitis (HCC) 08/06/2010 - PMH - PAST MEDICAL HISTORY OF cystic acne - Psoriasis 02/02/2014 - Psoriatic arthritis (HCC) 02/02/2014 - Pulmonary HTN - PVD (peripheral vascular disease) (HCC) - Snoring - Systolic CHF (HCC) PAST SURGICAL HISTORY Procedure Laterality Date - BASIC ICD SINGLE CHAMBER 01/13/2017 [facility] - COLONOSCOP W/ OR W/O [facility] SPEC 11/18/06 - COLONOSCOP W/ OR W/O [facility] SPEC 12/07/2014 Colonoscopy - ECHOCARDIOGRAM 08/28/2016 EF 20-25% - HEART CATHETERIZATION 08/27/2016 - PAST SURGICAL HISTORY OF cysts removed ALLERGIES Review of patient's allergies indicates no known allergies. MEDICATIONS Omeprazole 40 mg capsule Take 1 capsule by mouth once daily. levothyroxine (LEVOXYL) 25 mcg tablet Take 1 tablet by mouth once daily. Take on empty stomach. For Thyroid ferrous sulfate 325 mg (65 mg iron) tablet Take 1 tablet by mouth twice daily with meals. hydroxychloroquine (PLAQUENIL) 200 mg tablet Take 1 tablet by mouth twice daily. fluticasone (FLONASE) 50 mcg/actuation nasal spray Use 1 [place] in each nostril once daily. COMPOUNDED PRESCRIPTION Knee high support stockings . 20-30 weightDIAGNOSIS: Venous insufficency I87.2 atorvastatin (LIPITOR) 40 mg tablet Take 40 mg by mouth once daily. carvedilol (COREG) 3.125 mg tablet Take 6.25 mg by mouth twice daily with meals. warfarin (COUMADIN) 5 mg tablet Take 5 mg by mouth daily as directed. OXYGEN, HOME THERAPY, by Nasal Cannula route as directed. 3L under exertion and 2L at rest /. losartan (COZAAR) 25 mg tablet Take 25 mg by mouth once daily. furosemide (LASIX) 40 mg tablet Take 40 mg by mouth twice daily. COMPOUNDED PRESCRIPTION Please perform nocturnal pulse oximetry on 6 lpm O2 nasal cannula. Please fax results to [phone]. Diagnosis: Very severe COPD J44.9 COMPOUNDED PRESCRIPTION Please perform nocturnal pulse oximetry on 4 lpm O2 NC. Dx= Nocturnal Hypoxemia G47.34. Please fax results to [phone]. albuterol (PROVENTIL) 2.5 mg/0.5 mL nebulizer solution Use 0.5 mL via nebulizer every 6 hours as needed. COMPOUNDED PRESCRIPTION Please perform nocturnal oximetry on 2 lpm O2 NC.DX: Chronic hypoxemic respiratory failure COMPOUNDED PRESCRIPTION Please provide disability placard. 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 End date: 07/17/2021 COMPOUNDED PRESCRIPTION 1 Units four times daily as needed. NEBULIZER FOR HOME USE. DX: COPD exacerbation COMPOUNDED PRESCRIPTION Nebulizer, Mask, ANDamp; O2 Tubing. Use as directed. cholecalciferol (VITAMIN D) 1,000 unit tab tablet Taking 1600 IU 800 am and 800 pm budesonide-formoterol (SYMBICORT) 160-4.5 mcg/actuation inhaler Inhale 2 Puffs as instructed twice daily. albuterol HFA (PROAIR HFA) 90 mcg/actuation inhaler Inhale 2 Puffs as instructed every 4 hours as needed. aclidinium bromide (TUDORZA PRESSAIR) 400 mcg/actuation aepb Inhale 1 Inhalation as instructed twice daily. aspirin, enteric coated (ASPIRIN, ENTERIC COATED) 81 mg EC tablet Take 1 tablet by mouth once daily. multivitamin tablet Take 1 tablet by mouth once daily. COMPOUNDED PRESCRIPTION 2L of O2 at night. Length of need 99 months. Dx: COPD. COMPOUNDED PRESCRIPTION Please enroll in pulmonary rehab for severe obstructive airway disease.Adjust O2 prn spo2 ANDgt;90%.Pre and post rehabilitation 6 minute walk test or exercise stress test to develop the exercise prescription and to monitor outcomes. FAMILY HISTORY Problem Relation Age of Onset - Ischemic Heart Disease Mother - Cancer Father brain cancer - Diabetes Maternal Grandmother - Stroke Brother Social History Substance Use Topics - Smoking status: Former Smoker Packs/day: 0.50 Years: 30.00 Types: Cigarettes Quit date: 08/21/2011 - Smokeless tobacco: Never Used - Alcohol use Yes Comment: drinks 3 beer daily ASSESSMENT/PLAN: 1. Tremor - ICD9: 781.0, ICD10: R25.1 - CONSULT TO INTERNAL MEDICINE PSR assisting pt in scheduling f/u visit for next week. Reviewed Red Flag SANDamp;S acute neuro sx. Pt verbalizes understanding of SANDamp;S requiring emergent evaluation. The patient is instructed to return or seek emergency treatment if symptoms become worse or with any acute change in condition. The patient verbalizes understanding and is in agreement with plan of care. Margarita Reddy CNP Referring Provider: SELF [[id number]] Allergies As of Date: 11/13/2017 (No Known Allergies) Date Reviewed: 11/13/2017 Reviewed by: Estefani Villegas Ma - Fully Assessed Reason for Visit: Tremor [758] Reason For Visit History Recorded Primary Visit Diagnosis:Tremor [R25.1] Order(s):CONSULT TO INTERNAL MEDICINE [9017] Order #: [id number]: 1 Prescriptions as of 11/13/2017 Sig: OMEPRAZOLE 40 MG CAPSULE,MARÍA* Take 1 capsule by mouth once * LEVOTHYROXINE 25 MCG TABLET Take 1 tablet by mouth once d* FERROUS SULFATE 325 MG (65 MG* Take 1 tablet by mouth twice * HYDROXYCHLOROQUINE 200 MG TAB* Take 1 tablet by mouth twice * FLUTICASONE 50 MCG/ACTUATION * Use 1 [place] in each nostril o* COMPOUNDED PRESCRIPTION Knee high support stockings .* ATORVASTATIN 40 MG TABLET Take 40 mg by mouth once wilian* CARVEDILOL 3.125 MG TABLET Take 6.25 mg by mouth twice d* WARFARIN 5 MG TABLET Take 5 mg by mouth daily as d* OXYGEN (HOME THERAPY) by Nasal Cannula route as dir* LOSARTAN 25 MG TABLET Take 25 mg by mouth once wilian* FUROSEMIDE 40 MG TABLET Take 40 mg by mouth twice raheem* COMPOUNDED PRESCRIPTION Please perform nocturnal puls* COMPOUNDED PRESCRIPTION Please perform nocturnal puls* ALBUTEROL SULFATE CONCENTRATE* Use 0.5 mL via nebulizer ever* COMPOUNDED PRESCRIPTION Please perform nocturnal oxim* COMPOUNDED PRESCRIPTION Please provide disability monika* COMPOUNDED PRESCRIPTION 1 Units four times daily as n* COMPOUNDED PRESCRIPTION Nebulizer, Mask, AND O2 Tubing.* CHOLECALCIFEROL (VITAMIN D3) * Taking 1600 IU 800 am and 800* BUDESONIDE-FORMOTEROL HFA 160* Inhale 2 Puffs as instructed * ALBUTEROL SULFATE HFA 90 MCG/* Inhale 2 Puffs as instructed * ACLIDINIUM BROMIDE 400 MCG/AC* Inhale 1 Inhalation as instru* ASPIRIN 81 MG TABLET,DELAYED * Take 1 tablet by mouth once d* MULTIVITAMIN TABLET Take 1 tablet by mouth once d* COMPOUNDED PRESCRIPTION 2L of O2 at night. Length of* COMPOUNDED PRESCRIPTION Please enroll in pulmonary re* Problem List As Of Date 11/13/2017 Noted Resolved DYSMETABOLIC SYNDROME X [E88.81] INVALID FOR* OBST CHRON BRONCHITIS WITH EXAC [J44.1] INVALID FOR* Tobacco use disorder [F17.200] INVALID FOR*01/09/2016 Obstructive chronic bronchitis [J44.9] INVALID FOR* Arthritis of hand, 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] INVALID FOR* Psoriatic arthritis (HCC) [L40.50] INVALID FOR* Psoriasis [L40.9] INVALID FOR* Benign non-nodular prostatic hyperplasia with l*INVALID FOR* Encounter for long-term (current) use of medica*INVALID FOR* Hypothyroidism [E03.9] INVALID FOR* Venous stasis dermatitis of right lower extremi*INVALID FOR* 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] INVALID FOR* CHF (congestive heart failure) (HCC) [I50.9] Cardiomyopathy (HCC) [I42.9] ICD (implantable cardioverter-defibrillator) in* Moderate to severe pulmonary hypertension (HCC)*INVALID FOR* Anemia [D64.9] 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 *INVALID FOR* Gastroesophageal reflux disease [K21.9] INVALID FOR* Encounter Status:Closed by MARGARITA REDDY CNP on 11/13/17 PROTHROMBIN TIME W/INR Collected: 11/10/2017 Status: F Source: [place] 7:13 AM [facility] REPOSITORY TYPE CODE TESTS RESULT OUT OF RANGE REFERENCE UNITS LAB L300.4150 11.7-14.9 SECONDS High PROTIME 21.6 LAB L300.4200 Normal INR 1.9 Performed By: #### L300.3900 #### [facility] [address] [place], [place], [id number] PROTHROMBIN TIME W/INR Collected: 10/20/2017 Status: F Source: [place] 7:10 AM [facility] REPOSITORY Order Comment: INR FOR DR FLORIAN THYROIDS FOR DR MAURER TYPE CODE TESTS RESULT OUT OF RANGE REFERENCE UNITS LAB L300.4150 11.7-14.9 SECONDS High PROTIME 24.0 LAB L300.4200 Normal INR 2.1 Performed By: #### L300.3900 #### [facility] [address] [place], [place], [id number] T4 TOTAL, THYROXIN Collected: 10/20/2017 Status: F Source: [place] 7:10 AM [facility] REPOSITORY Order Comment: INR FOR DR FLORIAN THYROIDS FOR DR MAURER TYPE CODE TESTS RESULT OUT OF RANGE REFERENCE UNITS LAB L501.9310 4.5-12.1 ug/dL T4 Normal THYROXIN 5.4 Performed By: #### L501.9310, L501.9520, L506.0400 #### [facility] [address] [place], [place], [address] THYROID STIM HORMONE Collected: 10/20/2017 Status: F Source: [place] (T[facility]) 7:10 AM [facility] REPOSITORY Order Comment: INR FOR DR FLORIAN THYROIDS FOR DR MAURER TYPE CODE TESTS RESULT OUT OF RANGE REFERENCE UNITS LAB L501.9520 0.358-3.74 uIU/mL Normal TSH 2.24 Performed By: #### L501.9310, L501.9520, L506.0400 #### [facility] [address] [place], [address] T4 FREE DIRECT Collected: 10/20/2017 Status: F Source: [place] 7:10 AM [facility] REPOSITORY Order Comment: INR FOR DR FLORIAN THYROIDS FOR DR MAURER TYPE CODE TESTS RESULT OUT OF RANGE REFERENCE UNITS LAB L506.0400 0.76-1.46 ng/dL Normal T4 FREE 0.93 DIRECT Performed By: #### L501.9310, L501.9520, L506.0400 #### [facility] [address] [place], [place], [address] CARDIOLOGY VISIT Observed: 10/15/2017 Status: F Source: [place] REPORT 4:27 PM [facility] REPOSITORY [facility] [address] [place] [address] OFFICE VISIT Date of Service: 10/15/17 MR#: [id number] Acct: [id number] Name: JIGNESH RAMIRES Rep #: [id number] : 1950 Provider: Case Florian MD Age/Sex: 66/M Location: [facility] [place] Status: Signed HPI HPI Chief Complaint: Routine f/u Details: Referring physician: Dr. Maurer Mr. Ramires is a very pleasant 66-year-old nondiabetic gentleman, with COPD, hypertension, hypercholesterolemia, who presented with new onset heart failure on 08/29/16 to [facility]. At that time echocardiogram was performed which showed severe LV dysfunction with EF of 25% with moderate pulmonary hypertension. Patient underwent IV diuresis followed by diagnostic coronary angiogram which demonstrated angiographically normal coronary arteries with minimal nonobstructive disease, confirmed LV dysfunction of 15-20% with moderate elevated LVEDP. Incidentally the patient was found to have moderate non nonobstructive peripheral vascular disease of his right and left common iliac arteries as well as his right left external iliac arteries. The patient underwent outpatient PVRs which illustrated significant bilateral lower extremity vascular compromise. He has been referred to Dr. Giuliano Maurer, who recommended medical management for now. He has had no claudication symptoms. The patient is now here in office for follow-up. He denies any chest pain, angina, shortness of breath or dyspnea on exertion. He is taking and tolerating his medicines well. He did have one episode of COPD several months ago which was treated with prednisone is completely resolved. He denies any AICD discharges. AICD interrogation demonstrated no V. tach. He is taking and tolerating his medicines well. Patient has been stable on his Coumadin for LV thrombus prophylaxis, and he denies any lower extremity edema. He is on chronic O2 therapy and sees Dr. Rodríguez. Since her last visit, the patient has been doing fairly well, exercising at [employer] 2 days a week, and pulmonary rehab on 2 days a week. He denies any lower extremity edema, or deterioration in his exercise capacity. In our office his blood pressure is 140/70, and pulse is 88 and regular. His physical exam demonstrates distant breath sounds bilaterally, regular rate and rhythm, normal S1/S2. His lipids as of 08/28/16 show no LDL of 27 and an HDL of 95. His lipids as of 10/08/17 show an LDL of 11 and HDL of 138. Intake Vital Signs10/15/17 Height 5 ft 5 in 10/15/17 Weight: 157 lb Intake Visit Reasons: 6 M FU Allergies No Known Allergies Allergy (Verified 10/15/17 15:58) Medications Aclidinium [place] [Tudorza Pressair] 400 mcg IH BID 08/27/16 [History Confirmed 10/15/17] Albuterol Aerosols [Ventolin Aerosols] 0.5 ml INHALATION Q6HWA.RT 08/27/16 [History Confirmed 10/15/17] Albuterol Inhaler [Ventolin Hfa] 2 puff INHALATION Q4H PRN PRN 08/27/16 [History Confirmed 10/15/17] Hydroxychloroquine [Plaquenil] 200 mg PO BIDCM 08/27/16 [History Confirmed 10/15/17] Multivitamin [Multiple Vitamins] 1 ea PO DAILY 08/27/16 [History Confirmed 10/15/17] Omeprazole Magnesium 20 mg PO DAILY 08/27/16 [History Confirmed 10/15/17] Atorvastatin Calcium [Lipitor] 40 mg PO QHS #30 tab 08/31/16 [Rx Confirmed 10/15/17] furosemide 40 mg tablet 40 mg PO BID #180 tab 09/18/17 [Rx Confirmed 10/15/17] warfarin 5 mg tablet 5 mg PO .COMPLEX #60 tab 10/09/17 [Rx Confirmed 10/15/17] budesonide-formoterol HFA 160 mcg-4.5 mcg/actuation aerosol inhaler 2 puff INHALATION BID #10.2 g 10/13/17 [Rx Confirmed 10/15/17] aspirin 81 mg chewable tablet 81 mg PO .QOD tab 10/15/17 [History Confirmed 10/15/17] carvedilol 6.25 mg tablet 6.25 mg PO BID 10/15/17 [History Confirmed 10/15/17] cholecalciferol (vitamin D3) 2,000 unit capsule 2,000 unit PO BID cap 10/15/17 [History Confirmed 10/15/17] fluticasone 50 mcg/actuation nasal spray,suspension 2 spray INTRANASAL BID g 10/15/17 [History Confirmed 10/15/17] levothyroxine 25 mcg capsule 25 mcg PO QDAY cap 10/15/17 [History Confirmed 10/15/17] losartan 50 mg tablet 50 mg PO QDAY 10/15/17 [History Confirmed 10/15/17] Ejection fraction %: 20 to 24 PFSH Medical History Nonischemic cardiomyopathy (Chronic) Severe left ventricular systolic dysfunction (Chronic) Dilated cardiomyopathy (Chronic) 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) Chronic respiratory failure with hypoxia and hypercapnia (Chronic) PVD (peripheral vascular disease) (Chronic) Stage 3 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) PND (paroxysmal nocturnal dyspnea) (Chronic) Hyperlipidemia (Chronic) 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) COPD (chronic obstructive pulmonary disease) (Chronic) CAP (community acquired pneumonia) (Chronic) Acute on chronic respiratory failure with hypoxia (Resolved) Psoriatic arthritis (Chronic) CHF (congestive heart failure), NYHA class I (Chronic) Pulmonary hypertension (Chronic) Surgical History History of left heart catheterization (Chronic) Family History Mother Heart disease Brother CVA (cerebral vascular accident) Father Cancer brain Grandmother Diabetes Social History Smoking Status: Former smoker how long ago did patient quit smokin, 1.5p/day second hand exposure: Yes alcohol intake: never substance use type: does not use caffeine: Yes Type: coffee Number of servings: 2 what type of physical activity do you participate in: walking frequency: 3-4 times per week ROS Const Const: Positive for other (Continues to workout 4 days a week w/o difficulty); negative for fatigue, weakness, difficulty sleeping, frequent falls, headache(s) or excessive sweating Eyes Eyes: Negative for loss of peripheral vision, transient loss of vision, blurry vision or double vision ENT ENT: Negative for headache(s), dizziness, Nosebleed/epistaxis or balance problems Cardio Chest Pain: No Edema: None Muscle aches with walking: None Resp Respiratory: Positive for SOB with activity; negative for SOB at rest, SOB orthopnea\SOB lying down or paroxysmal nocturnal dyspnea Additional Details: Continuous O2 at 3-4L GI GI: Negative nausea or heartburn : Negative for hematuria Musc Musc: Negative for muscle aches/ myalgia, muscle weakness, joint pain or balance problems Skin Skin: Negative non-healing lesions, unusual bruising or rash Neuro Neuro: Negative for weakness, frequent falls, blurry vision, headache(s), dizziness, lightheadedness, orthostatic symptoms or double vision Yash Hematologic/Lymphatic: Negative for easy bruising Endo Endo: Negative for fatigue, excessive sweating or increased thirst/drinking Psych Psych: Negative for anxiety or depression Allergy Allergy/Immunology: Negative for hives, Negative for rash Cardiology Exam Const Appearance: cooperative, healthy appearing and no acute distress Nutritional Appearance: well nourished Orientation: alert, oriented x3 and oriented to person Head Head: normal to inspection, atraumatic and normocephalic Nose: external nose normal Face and Sinus: face symmetric Mouth: oral mucosae normal Eyes General: appearance normal, both eyes and all related structures Eyelids: eyelids normal Conjunctivae: conjunctivae normal Pupils: PERRL and normal by confrontation EOM: EOM intact bilaterally Neck Neck: normal visual inspection and full ROM Carotids: normal carotid upstroke Chest Chest inspection: normal inspection of the chest Auscultation: Bilateral: Clear to Auscultation Cardio Palpation: normal PMI Rate: regular rate Rhythm: regular rhythm Heart sounds: S1 normal and S2 normal GI GI: normal to inspection, no hepatosplenomegaly and bowel sounds present Neuro General: alert, oriented x3, awake, CN's II-XI intact bilaterally and moves all extremities Skin Skin: no rashes or lesions noted Extremities Pulses: Normal: Right Femoral Pulse, Left Femoral Pulse, Right Dorsalis Pedis Pulse, Left Dorsalis Pedis Pulse, Right Posterior Tibial Pulse, Left Posterior Tibial Pulse, Right Radial Pulse, Left Radial Pulse Lower Extremity Edema: None: Bilateral Psych Psychological: normal affect Assessment AND Plan 1. Severe left ventricular systolic dysfunction I51.9 EF 15-20% per heart cath 08/29/2016; 20-35% per echo 12/17/2016 Plan 1. Nonischemic cardiomyopathy: The patient is doing quite well on current medical regimen, exercising 4 days a week without difficulty, and has O2 supplementation. He is euvolemic by my exam today. He has no edema. Recommend he continue his Coreg, Lasix, and losartan. We will continue him on anticoagulation therapy for paroxysmal atrial fibrillation, pulmonary hypertension, and prevention of LV apical thrombus. Orders Orders: 2. Pulmonary hypertension I27.20 RVSP 47mm hg per echo 08/28/2016 (unable to estimate per Echo 12/17/2016) Plan 2. Pulmonary hypertension: Recommend that we obtain a repeat echocardiogram in December 2017 to monitor his LV function given all of his exercise and medical management as well as to monitor his pulmonary hypertension. Again he has no evidence of right- sided failure by physical exam today. Continue diuretic therapy. 3. Return office in 6 months. This note was generated using a voice recognition system and there may be incorrect words, spelling or punctuation that were not noted when reviewing the office note prior to saving. Plan Detail Other Orders Orders: Other Medications Discontinued: Follow Up 6 Months (Óscar) Coding Level of Care Code Off vis,est,level 3 Diagnoses Severe left ventricular systolic dysfunction I51.9 Pulmonary hypertension I27.20 Coding Level of Care Code Off vis,est,level 3 Diagnoses Severe left ventricular systolic dysfunction I51.9 Pulmonary hypertension I27.20 10/15/17 1627 <Electronically signed by Case Florian MD> Date Case Witt Signature: Date (if applicable) CC: PROTHROMBIN TIME W/INR Collected: 10/08/2017 Status: F Source: [facility] 7:01 AM [facility] REPOSITORY TYPE CODE TESTS RESULT OUT OF RANGE REFERENCE UNITS LAB L300.4150 11.7-14.9 SECONDS High PROTIME 17.8 LAB L300.4200 Normal INR 1.5 Performed By: #### L300.3900 #### [facility] [address] [place], [place], [id number] LIVER PROFILE Collected: 10/08/2017 Status: F Source: [place] 7:00 [facility] [place] REPOSITORY Order Comment: Order Date: 04/17/17 Order Info: [id number] - *Hepatic Function Panel Order Info: [id number] - *Lipid Profile CC PCP Comments: 12 hours fasting, may have water. TYPE CODE TESTS RESULT OUT OF RANGE REFERENCE UNITS LAB L501.1500 6.4-8.2 g/dL Normal T PROT 7.8 LAB L501.1800 3.2-5.0 g/dL Normal ALB 3.9 LAB L501.1950 2.2-4.2 g/dL Normal GLOB 3.9 LAB L501.4100 15-37 U/L High AST 55 LAB L501.4305 45-117 U/L Normal ALK P 60 LAB L501.4405 16-61 U/L Normal ALT 46 Result Comment: Please note revised ALT reference range effective 2017. LAB L501.4600 0.20-1.00 mg/dL Normal T BILI 0.70 LAB L501.4700 0.00-0.30 mg/dL Normal D BILI 0.27 Performed By: #### L500.3400 #### [facility] [address] [place], [place], [id number] LIPID PROFILE Collected: 10/08/2017 Status: F Source: [place] 7:00 AM [facility] REPOSITORY Order Comment: Order Date: 04/17/17 Order Info: [id number] - *Hepatic Function Panel Order Info: [id number] - *Lipid Profile CC PCP Comments: 12 hours fasting, may have water. TYPE CODE TESTS RESULT OUT OF RANGE REFERENCE UNITS LAB L501.4900 200 mg/dL Normal CHOL 157 Result Comment: <200 mg/dL Desirable 200-240 mg/dL Borderline >240 mg/dL High Risk LAB L501.5000 mg/dL Normal TRIG 39 Result Comment: The drugs N-Acetylcysteine and Metamizole may falsely depress this assay. Serum Triglycerides Reference Interval Normal <150 mg/dL Borderline high 150 - 199 mg/dL High 200 - 499 mg/dL Very High > or = 500 mg/dL LAB L501.6400 mg/dL Normal HDL 138 Result Comment: The drugs N-Acetylcysteine and Metamizole may falsely depress this assay. Reference Range HDL <40 mg/dL Low HDL Cholesterol HDL >or= 60 mg/dL High HDL Cholesterol LAB L501.6500 0-130 mg/dL Normal LDL 11 LAB L501.6600 5-40 mg/dL Normal VLDL 8 Performed By: #### L500.4100 #### [facility] [address] [place], [place], [address] PROTHROMBIN TIME W/INR Collected: 10/01/2017 Status: F Source: [place] 7:10 AM [facility] REPOSITORY TYPE CODE TESTS RESULT OUT OF RANGE REFERENCE UNITS LAB L300.4150 11.7-14.9 SECONDS High PROTIME 15.2 LAB L300.4200 Normal INR 1.3 Performed By: #### L300.3900 #### [facility] [address] [place], [place], [address] PULMONARY VISIT REPORT Observed: 09/23/2017 Status: F Source: [place] 11:19 AM [facility] REPOSITORY [facility] [address] [place] [address] OFFICE VISIT Date of Service: 09/23/17 MR#: [id number] Acct: [id number] Name: JIGNESH RAMIRES Rep #: [id number] : 1950 Provider: Cheryl Schaeffer Age/Sex: 66/M [place] [facility] [place] Status: Signed Assessment AND Plan 1. Stage 3 severe COPD by GOLD classification J44.9 Status Chronic FEV1 33 Plan Continue current maintenance medications. The patient does not appear to be in exacerbation of his COPD today. He does not require antibiotics or prednisone. Repeat pulmonary function tests in 3 months. Follow-up with Dr. Rodríguez after obtaining test results. Patient has been encouraged to contact the office if he develops any signs or symptoms of COPD exacerbation, which were reviewed with him today. Orders Orders: 2. Chronic respiratory failure with hypoxia and hypercapnia J96.11; J96.12 Status Chronic Plan The patient is using and benefiting from current noninvasive ventilator. I am going to reduce his max pressure just slightly. Continue to utilize the noninvasive ventilator while sleeping and for rescue. Continue to utilize oxygen to maintain saturations 89-92%. No repeat testing due at this time. Follow-up with Dr. Rodríguez in 3 months. 3. Pulmonary hypertension I27.20 Status Chronic Plan Continue to use supplemental oxygen as needed. No additional testing at this time. Follow-up with Dr. Rodríguez in 3 months. Plan Detail Follow Up 3 Months ([facility]) HPI 3 M FU: Chief Complaint: shortness of breath HPI Comments Details: This is a 66 year old very pleasant M, currently under the care of Jose Maurer, here to follow up on severe chronic obstructive pulmonary disease, with a LEBRON score of 6, and chronic hypoxic and hypercarbic respiratory failure. JIGNESH has not been treated with antibiotics and/or prednisone, and has not been treated in the ED/Urgent care for respiratory problems since the last office visit. He denies any cough, wheezing or chest tightness. He continues to have shortness of breath on exertion, he is at his baseline dyspnea. He denies any fever or chills. He denies any hemoptysis. See complete ROS. Current medications consist of Symbicort twice daily, tudorza twice daily, and proair rescue inhaler which is being used rarely. Medication side effects: negative for sore throat, thrush, hoarseness, mouth lesions, or bleeding from nose or mouth. The patient reports compliance with rinsing mouth out after each use. Current home oxygen use is 2 LPM at all times, with 3LPM on ambulation and NIV with sleep and rescue. He reports some difficulty when the pressure support max is reached. He is using and benefitting from current NIV. He denies any difficulty with mask leaks. He is feeling rested in the morning. COPD checklist: Last PFTs were done on 11/05/16 FVC is 73 % of predicted FEV1 is 33 % of predicted FEV1/FVC is 36% of predicted Currently smoking 0 PPD Dyspnea 2 Exacerbations in the past 12 months 2 Last 6 min walk 04/16/17 ambulated 966 ft, requires 3 LPM with ambulation. Nutrition good Mood good Influenza vaccine current Pneumococcal vaccine current Pulmonary Rehab currently 4 times per week *The GOLD (Global initiative on Obstructive Lung Disease) divides COPD into 4 categories based on the FEV1: I FEV1/FVC <0.7 and FEV1 <80% II FEV1/FVC <0.7 and FEV1 50-80% III FEV1/FVC <0.7 and FEV1 30-50% IV FEV1/FVC <0.7 and FEV1 <30% (or < 50% with respiratory failure) GOLD additionally stratifies patients by disease severity in order to guide therapy: A FEV1 >50% with few symptoms B FEV1 >50% with frequent symptoms C FEV1 <50% with few symptoms D FEV1 <50% with frequent symptoms Variable points on LEBRON Index 0 1 2 3 Fev1 33 % of predicted 65 50-64 36-49 <35 Distance walked in 6 min >6501 [phone] <149 MMRC dyspnea scale* 0-1 2 3 4 BMI >21 <21 LEBRON Index Score 0-2 2% 6% 19% 3-4 2% 8% 32% 4-6 2% 14% 40% 7-10 5% 31% 80% MMR SCALE Grade Degree of breathlessness related to activities 0 Not troubled by breathlessness except on strenuous exercise Intake Vital Signs09/23/17 Height 5 ft 7 in 09/23/17 Weight: 155 lb 09/23/17 Body Mass Index (BMI) 24.3 Intake Visit Reasons: 3 M FU [facility] Vendor: [employer] Allergies No Known Allergies Allergy (Verified 09/17/17 15:41) Medications Aclidinium [place] [Tudorza Pressair] 400 mcg IH BID 08/27/16 [History Confirmed 09/17/17] Albuterol Aerosols [Ventolin Aerosols] 0.5 ml INHALATION Q6HWA.RT 08/27/16 [History Confirmed 09/17/17] Albuterol Inhaler [Ventolin Hfa] 2 puff INHALATION Q4H PRN PRN 08/27/16 [History Confirmed 09/17/17] Aspirin 81 mg PO DAILY 08/27/16 [History Confirmed 09/17/17] Budesonide/Formoterol 160/4.5 [Symbicort 160/4.5 Mcg Inhaler (SP)] 2 puff INHALATION BID 08/27/16 [History Confirmed 09/17/17] Cholecalciferol (VIT D3) 800 unit PO BID 08/27/16 [History Confirmed 09/17/17] Hydroxychloroquine [Plaquenil] 200 mg PO BIDCM 08/27/16 [History Confirmed 09/17/17] Multivitamin [Multiple Vitamins] 1 ea PO DAILY 08/27/16 [History Confirmed 09/17/17] Omeprazole Magnesium 20 mg PO DAILY 08/27/16 [History Confirmed 09/17/17] Atorvastatin Calcium [Lipitor] 40 mg PO QHS #30 tab 08/31/16 [Rx Confirmed 09/17/17] Carvedilol [Coreg (Beta Roxy)] 3.125 mg PO BID #60 tab 08/31/16 [Rx Confirmed 09/17/17] Losartan Potassium [Cozaar] 25 mg PO DAILY #30 tab 08/31/16 [Rx Confirmed 09/17/17] PredniSONE [Prednisone] 60 mg PO DAILY #15 tab 02/05/17 [Rx Confirmed 09/17/17] warfarin 5 mg tablet 5 mg PO .COMPLEX #60 tab 08/24/17 [Rx Confirmed 09/17/17] furosemide 40 mg tablet 40 mg PO BID #180 tab 09/18/17 [Rx] PFSH Medical History Diverticula of colon (Acute) PVD (peripheral vascular disease) (Chronic) Long-term use of high-risk medication (Chronic) Stage 3 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) PND (paroxysmal nocturnal dyspnea) (Chronic) Hyperlipidemia (Chronic) SOB (shortness of breath) (Acute) assisted current use of anticoagulant (Chronic) Acute respiratory failure with hypoxia (Chronic) COPD (chronic obstructive pulmonary disease) (Chronic) CAP (community acquired pneumonia) (Chronic) Acute on chronic respiratory failure with hypoxia (Acute) COPD with acute exacerbation (Acute) Psoriatic arthritis (Chronic) CHF (congestive heart failure), NYHA class I (Acute) LV dysfunction (Acute) Pulmonary hypertension (Acute) Surgical History Hx of colonoscopy (Resolved) Family History Mother Heart disease Brother CVA (cerebral vascular accident) Father Cancer brain Grandmother Diabetes Social History Smoking Status: Former smoker how long ago did patient quit smokin, 1.5p/day second hand exposure: No alcohol intake: current alcohol intake frequency: 3 or more drinks per day Alcohol type: beer substance use type: does not use caffeine: Yes Type: coffee Number of servings: 2 what type of physical activity do you participate in: walking frequency: 3-4 times per week FEV1% FEV1%: 33 Review of Systems Const CONSTITUTIONAL: Negative anorexia, body ache, chills, daytime sleepiness, fever(s), night sweats, oral thrush, stops breathing during sleep, weight loss, sleeping in chair, fatigue, weight loss, weight gain, frequent colds, seasonal allergies, other, headache(s) or orthopnea EETM Ear Nose Throat Mouth: Positive hearing normal, nose bleed and nasal discharge; negative hard of hearing, hoarseness, dry mouth in morning, change in vision, itchy eyes, eye pain, swallowing Difficulty, ear pain, headache(s), mouth pain, nasal congestion, post nasal drip, sinus pain, sinus pressure, sore throat or other Cardio Cardiovascular: Negative chest pain, chest pain at rest, chest pain with activity, irregular heart rhythm, edema, shortness of breath when lying down, palpitations, murmur or other Resp Respiratory: Negative shortness of breath, pain with cough, wheezing, chest congestion, cough, chest tightness, pain on inspiration, inhalers, increase use of rescue inhalers, snoring, apnea or other Gastro Gastrointestional: Negative bloody stools, change in appetite, difficulty swallowing, reflux, hematemesis, melena stool, loose stool, constipation or other Genitourinary: Negative blood in urine, nocturia, pain with urination or other Musc Musculoskeletal: Negative body pain, back pain, neck pain or other Skin/Breast Skin/Breast: Negative dry skin, itching, rash, unusual bruising, breast lump or other Neuro Neurological: Negative restless legs, confusion, weakness or other Psych Psychocological: Negative abnormal sleep pattern, anxiety, thoughts of hurting self/others, hopelessness or other Lymph Lymphatic: Positive easy bleeding and easy bruising; negative swollen lymph nodes or other Exam Const Constitutional: Positive conversant, cooperative, in no acute respiratory distress, well developed, well nourished, good hygiene, frail appearing and wearing supplemental oxygen Head Head: Positive normocephalic and atraumatic; negative cyanosis of lips/distal nose Eyes Eye: Positive clear conjunctiva and nystagmus; negative scleral abnormality Ears Ear: Positive hearing normal and external ears normal; negative hard of hearing Nose Nose: Positive epistaxis, external nose normal and no nasal discharge Mouth Mouth: Positive oral mucosae normal, no lesions, good dentition and posterior oropharynx is adequate; negative post nasal drip, malodorous breath or oral thrush present Mallampati Score: II: Mallampati Score Neck Neck: Positive normal visual inspection, full ROM and trachea midline; negative lymphadenopathy, JVD or tender Chest Wall Chest: Positive normal inspection of the chest and symmetric chest movement; negative increased A/P diameter Resp lung sounds: Positive diminished, clear to auscultation, prolonged expiratory time and normal chronic state of increased work of breathing; negative wheezes, wheeze present on forced exhalation, rhonchi, dullness to percussion or rales Cardio Cardiac: Positive regular rate, regular rhythm, S1 normal and S2 normal; negative murmur GI GI: Positive normal to inspection and normal bowel sounds; negative distended Genitourinary: Positive deferred Musc Musculoskeletal: Positive steady gait and ROM normal; negative kyphosis or scoliosis Skin Pulmonary Skin Exam: Positive intact; negative rash, lesion, ulcers, erythema, scaly or dermal atrophy Pulses Pulse: Yes pulses normal x4 extremities Extremities Extremities: No edema, Yes capillary refill normal, No clubbing, Yes cyanosis (central cyanosis of the nose, this is common for him) Neuro Neurologic: Yes conversant, Yes no focal neuro deficits, Yes understands questions, Yes normal concentration, Yes cooperative, Yes normal coordination, Yes normal cognition Lymph Lymphatic: No lymphadenopathy Psych Appearance: Positive grossly normal, eye contact and well kempt Mental Status: Positive mental status grossly normal Mood: Positive congruent mood Affect: Positive normal affect Coding Level of Care Code Off vis,est,level 4 Diagnoses Stage 3 severe COPD by GOLD classification J44.9 Chronic respiratory failure with hypoxia and hypercapnia J96.11; J96.12 Pulmonary hypertension I27.20 09/23/17 1119 <Electronically signed by Cheryl JOHNSTON> Date Cheryl JOHNSTON Cosigner Signature: Date (if applicable) CC: Jose Maurer III, MD PROTHROMBIN TIME W/INR Collected: 09/17/2017 Status: F Source: [place] 7:02 AM [facility] REPOSITORY TYPE CODE TESTS RESULT OUT OF RANGE REFERENCE UNITS LAB L300.4150 11.7-14.9 SECONDS High PROTIME 20.7 LAB L300.4200 Normal INR 1.9 Performed By: #### L300.3900 #### [facility] [address] [place], [address] OFFICE VISIT REPORT Observed: 09/16/2017 Status: F Source: [place] 2:08 PM [facility] REPOSITORY [facility] [place] [address] OFFICE VISIT Date of Service: 09/07/17 MR#: [id number] Acct: [id number] Patient: JIGNESH RAMIRES Rep #: [id number] : 1950 Provider: Shanelle August Age/Sex: 66/M Location: [facility] Status: Signed Comments Summary Comments: Remote Single Chamber ICD Evaluation: Remote Interrogation shows no VT/VF episodes since 03/03/17. Presenting rhythm shows NSR @ 80 bpm. HADOOP ANALYST=0%. Battery longevity approx 12 yrs. Lead impedance and sensing remain stable. Normal remote ICD function. Pt notified remote transmission received and next f/u appt scheduled for in 3 mos. Device Device Date Interviewed: 09/07/17 Follow-up Location: remote Interview Reason: scheduled follow up Incident Response Lead: [employer] Name: Rasheeda ICD Model: D150 Serial #: [id number] Implant Date: 01/13/17 Year(s): 0 Implant Physician: Dr. Green/[facility] Patient Characteristics Patient Substrate: Nonischemic cardiomyopathy Ejection fraction %: 25 to 29 (12/17/2016) By: Echo Underlying rhythm: Sinus rhythm Pacemaker Dependent: No Device Characteristics Device: Single Chamber Type: Implantable defibrillator Remote Follow-Up: Latitude Leads Lead #1 Incident Response Lead Lead 1: [employer] Model Lead 1: 0292 Serial# Lead 1: [id number] Date Implanted Lead 1: 01/13/17 Position Lead 1: RA Diagnostics Pacing % RV Pacin Arrhythmias VF Episodes: 0 Fast VT Episodes: 0 Slow VT Episodes: 0 Non-Sust Episodes: 0 Measurements Battery Battery Status: HENRRY Predicted Remaining Longevity (months or years): 12 years RV Measurements Signal Amplitude (mV): 21.9 Impedance (Ohms): 718 Shock Impedance (Ohms): 83 Tachy Settings VF Therapies VF Therapy Status On On On On On On Energy 41 41 41 41 41 41 Pathway ATP: During charging on FVT Therapies FVT Therapy Status On On On On On On VT Therapies VT Therapy Status Off Off Off Off Off Off Comments: Gigi Settings Gigi Settings Pacemaker Mode VVI Lower Rate Limit (bpm) 40 Hysteresis Rate (bpm) Max Track Rate (bpm) Max Sensor Rate (bpm) Max AV Delay (msec) Max PV Delay (msec) Max PVARP (msec) Output/Sensing V/PW (ms) 2.0/0.4 Sensitivity RA RV LV AGC 0.6 Comments: Billing Codes ICD Device Billing: ICD Dev Interrogate (Rmt) Assessment AND Plan Problems 1. CHF (congestive heart failure), NYHA class I I50.9 2. Presence of implantable cardioverter-defibrillator (ICD) Z95.810 09/11/17 0822 <Electronically signed by Shanelle August > Date Shanelle Hernandezer 09/16/17 1408<Electronically signed by Case Florian MD> Tomerre Signature: Date (if applicable) Case Florian MD CC: PROTHROMBIN TIME W/INR Collected: 08/18/2017 Status: F Source: [place] 6:59 AM [facility] REPOSITORY TYPE CODE TESTS RESULT OUT OF RANGE REFERENCE UNITS LAB L300.4150 11.7-14.9 SECONDS High PROTIME 28.2 LAB L300.4200 Normal INR 2.8 Performed By: #### L300.3900 #### [facility] [address] [place], [address] ALLERGIES ALLERGIES DATE TYPE / CODE NAME / CODE REACTION SEVERITY SOURCE 07/07/2018 Drug No Known Unknown [facility] Allergy/416 Allergies/R02208 Hospital 998171(SNOM 0388(RXNORM) Repository ED CT) NG/62693767 NO KNOWN [facility] 6(SNOMED ALLERGIES [facility]) Repository Drug NO KNOWN [facility] Class/23951 ALLERGIES [place] 1003(SNOMED Repository CT) ENCOUNTERS ENCOUNTERS ADMIT/DISCHARGE ACCOUNT NUMBER ADMITTING ENCOUNTER LOCATION SOURCE CLASS 08/04/2018 [id number] [facility] ding:LAB Repository 08/02/2018 [id number] [facility] ding:HPRAD Repository 08/02/2018/08/03/20 [id number] Ambulatory [address] Repository 08/02/2018/08/03/20 [id number] Ambulatory [address] Repository 07/27/2018 [id number] [facility] ding:LAB.FUT Repository URE 07/21/2018/07/22/20 [id number] Ambulatory [address] Repository 07/20/2018/07/21/20 [id number] Ambulatory [address] Repository 07/20/2018/07/21/20 [id number] Ambulatory [address] Repository 07/20/2018 [id number] Ambulatory [facility] ding:PA Repository 07/19/2018/07/20/20 [id number] Ambulatory [address] Repository 07/16/2018 [id number] Ambulatory [facility] ding:RAD Repository 07/15/2018/07/16/20 [id number] Ambulatory [address] ding:LAB Repository 07/14/2018/07/14/20 [id number] Ambulatory BMSBuilding: [place] 18 BMS.[facility] Repository 07/13/2018/07/14/20 [id number] Ambulatory [address] Repository 07/13/2018/07/14/20 [id number] Ambulatory [address] Repository 07/12/2018/07/14/20 [id number] Ambulatory [address] Repository 07/07/2018/07/07/20 [id number] Ambulatory BMSBuilding: [place] 18 [facility] [place] 07/06/2018 [id number] Ambulatory [facility] ding:CT Repository 07/01/2018 [id number] Ambulatory BMSBuilding: [place] BMS.[facility] Repository 07/01/2018 [id number] Ambulatory [facility] ding:OMD Repository 06/22/2018/06/25/20 [id number] Ambulatory [address] Repository 06/21/2018/06/21/20 [id number] Ambulatory [address] Repository 06/21/2018/06/21/20 [id number] Ambulatory [address] Repository 06/21/2018/06/22/20 [id number] Ambulatory [address] Repository 06/21/2018 [id number] Ambulatory BMSBuilding: [place] BMS.CF.[facility] Repository 06/17/2018/07/16/20 [id number] Ambulatory [place] ding:PA Repository 06/16/2018/06/16/20 [id number] Ambulatory BMSBuilding: [place] 18 BMS.[facility] Rep[place] 06/15/2018 [id number] Ambulatory [place] [facility] ding:HPRAD Repository 06/10/2018 [id number] Neha Hall Ambulatory BMSBuilding: [place] BMS.[facility] [place] 06/10/2018 [id number] Rafael Neha Ambulatory BMSBuilding: [place] BMS.[facility] Repository 06/10/2018 [id number] Neha Hall Ambulatory BMSBuilding: [place] BMS.[facility] Repository 06/10/2018/06/11/20 [id number] RafaelLillia Inpatient [place] 18 [place] Encounter [facility] ding:WI2Tlrz Repository : KQ463Vja: 1 06/08/2018 [id number] Ambulatory [facility] ding:CT Repository 05/27/2018 [id number] Ambulatory [facility] ding:PA Repository 05/25/2018/05/25/20 [id number] Ambulatory BMSBuilding: [place] 18 [facility] [place] 05/20/2018/05/21/20 [id number] Ambulatory [address] [place] Repository 05/17/2018 [id number] Ambulatory BMSBuilding: [place] BMS.[facility] Repository 05/13/2018/05/16/20 [id number] LASHAWN ECHEVERRIA Inpatient [place] [address] Encounter [facility] [place] Repository 05/13/2018/05/16/20 [id number] LASHAWN ECHEVERRIA F Inpatient [facility] 18 Encounter [facility] MEDICAL Repository CENTERBuildi nBRoom: [id number]: 05/13/2018/05/13/20 [id number] Emergency [place] [address] ding:ED Repository 05/13/2018/05/13/20 [id number] Ambulatory BMSBuilding: [place] 18 [facility]MS[facility] Repository 05/13/2018/05/16/20 [id number] [facility] [address] [place] [address] ding:PA Repository 05/11/2018/05/11/20 [id number] Ambulatory [place] [address] [place] [address] ding:LAB Repository 05/03/2018/05/03/20 [id number] Ambulatory BMSBuilding: [place] 18 BMS.[facility] Repository 04/15/2018/04/16/20 [id number] Ambulatory [place] 18 [facility] ding:PA Repository 04/06/2018/04/19/20 [id number] Ambulatory [place] 18 [facility] ding:LAB Repository 03/30/2018/03/30/20 [id number] Ambulatory BMSBuilding: [place] 18 BMS.[facility] Repository 03/24/2018/03/24/20 [id number] Ambulatory BMSBuilding: [place] 18 BMS.[facility] Repository 03/16/2018/03/16/20 [id number] Ambulatory BMSBuilding: [place] 18 [facility] Repository 03/16/2018/03/16/20 [id number] Ambulatory [place] 18 [facility] ding:PA Repository 03/09/2018/03/09/20 [id number] Ambulatory [place] 18 [facility] ding:LAB Repository 02/11/2018/02/14/20 [id number] Ambulatory [place] 18 [facility] ding:PA Repository 02/10/2018/02/11/20 [id number] Ambulatory BMSBuilding: [place] 18 BMS.[facility] Repository 02/09/2018/02/10/20 [id number] Ambulatory [place] 18 [facility] ding:LAB Repository 01/14/2018/01/15/20 [id number] Ambulatory [place] 18 [facility] ding:LAB Repository 01/14/2018/01/15/20 [id number] Ambulatory [place] 18 [facility] ding:PA Repository 01/02/2018/01/03/20 [id number] Emergency [place] 18 [facility] ding:ED Repository 01/02/2018/01/03/20 [id number] Ambulatory BMSBuilding: [place] 18 BMS.[facility] Repository 01/01/2018/01/02/20 [id number] Ambulatory BMSBuilding: [place] 18 BMS.[facility] Repository 12/23/2017/12/24/19 [id number] Ambulatory BMSBuilding: [place] 18 [facility] [place]ository 12/21/2017/12/22/19 [id number] Ambulatory BMSBuilding: [place] 18 BMS.[facility] Repository 12/16/2017 [id number] Ambulatory BMSBuilding: [place] [facility] Repository 12/16/2017 [id number] [facility] Repository 12/11/2017/12/15/19 [id number] Ambulatory [address] Repository 12/10/2017/12/15/19 [id number] Ambulatory [place] ding:PA Repository 12/01/2017/12/02/19 [id number] Ambulatory [place] [address] ding:LAB Repository 11/17/2017 [id number] Ambulatory BMSBuilding: [place] [facility] Repository 11/17/2017 [id number] [facility] Repository 11/16/2017/11/18/19 [id number] Ambulatory [address] Repository 11/13/2017/11/17/19 [id number] Ambulatory [address] Repository 11/12/2017/11/15/19 [id number] Ambulatory [place] [address] ding:PA Repository 11/10/2017/11/11/19 [id number] Ambulatory [place] 18 [facility] ding:LAB Repository 10/16/2017 [id number] [facility] ding[facility]LAB.F[facility] Repository URE 10/15/2017/10/16/19 [id number] Ambulatory BMSBuilding: [place] 18 BMS.[facility] Repository 10/13/2017/10/14/19 [id number] Ambulatory [place] ding:PA Repository 10/08/2017/10/08/19 [id number] Ambulatory [place] 18 [facility] ding:LAB Repository 09/23/2017/09/23/19 [id number] Ambulatory BMSBuilding: [place] 18 [facility] Repository 09/17/2017 [id number] Ambulatory BMS [place] [facility] Repository 09/15/2017/09/16/19 [id number] Ambulatory [place] 18 [facility] ding:PA Repository 09/07/2017/09/07/19 [id number] Ambulatory BMSBuilding: [place] 18 BMS.[facility] Repository 08/27/2017 [id number] Ambulatory [place] [facility] ding:PA Repository 08/18/2017 [id number] Ambulatory BMSBuilding: [place] BMS.[facility] Repository 08/13/2017/08/16/20 [id number] Ambulatory [place] 17 [facility] ding:PA Repository PAYERS PAYERS ENCOUNTER GUARANTOR PAYER SUBSCRIBER SOURCE 08/04/2018 JIGNESH M Primary JIGNESH M [place] [id number] YOUNG Insurance:MEDICARE BIGGSDOB: [place], [place] PART A BPolicy Number: [id number] [facility] 57[address]Vuc: (870) [id number] Repository [phone] () Date:2015-12-16 08/04/2018 Secondary JIGNESH M [place] Insurance:AARPPolicy BIGDOB: Community Number: [id number] Hospital [id number] Repository Date:7250-71-20[address], [place] [address]TK: 08/04/2018 Tertiary NOT GIVENUNK [place] Insurance:SELF PAY [facility] Number: Effective Repository Date:2018-07-19 08/02/2018 JIGNESH M Primary JIGNESH M [place] [id number] YOUNG Insurance:MEDICARE BIGGSDOB: [place] PART A BPolicy Number: [id number] Hospital 03779Fra: 330 [id number] Repository [phone] () Date:2018-08-02 08/02/2018 Secondary JIGNESH M [place] Insurance:AARPPolicy [facility] Number: [id number] Hospital [id number] Repository Date:2684-77-99[address], [place] [address]DU: 08/02/2018 Tertiary NOT GIVENUNK [place] Insurance:SELF PAY [facility] Effective Repository Date:2018-08-02 07/27/2018 JIGNESH M Primary JIGNESH M [place] [id number] YOUNG Insurance:MEDICARE BIGGSDOB: [place] PART A BPolicy Number: [id number] Hospital [id number]: 330 [id number] Repository [phone] () Date:2018-07-27 07/27/2018 Secondary JIGNESH M [place] Insurance:AARPPolicy BIGGSDOB: Community Number: [id number] [facility] [id number] Repository Date:1310-28-08[address], [place] [address]NR: 07/27/2018 Tertiary NOT GIVENUNK [place] Insurance:SELF PAY [facility] Number: Effective Repository Date:2018-07-27 07/20/2018 JIGNESH M Primary Insurance:SELF NOT GIVENUNK [place] [id number] [place] Number: Effective Hospital [id number]: (330) Date:2018-07-17 Repository [phone] () 07/16/2018 JIGNESH M Primary JIGNESH M [place] [id number] [place] Insurance:MEDICARE BIGGSDOB: [place] PART A BPolicy Number: [id number] Hospital 39483Lkd: 330 [id number] Repository [phone] () Date:2018-07-16 07/16/2018 Secondary JIGNESH M [place] Insurance:AARPPolicy BIGGSDOB: Community Number: [id number] Hospital [id number] Repository Date:8832-89-99CA [facility] 901835KKDPQNH, [place] [address]DT: 07/16/2018 Tertiary NOT [place]IV[place]K [place] Insurance:SELF PAY [facility] Number: Effective Repository Date:2018-07-16 07/15/2018 JIGNESH M Primary JIGNESH M [place] [id number] [place] Insurance:MEDICARE BIGGSDOB: [facility] [place] PART A BPolicy Number: [id number] Hospital 68588Bvr: 330 [id number] Repository [phone] () Date:2015-12-16 07/15/2018 Secondary JIGNESH M [place] Insurance:AARPPolicy BIGGSDOB: Community Number: [id number] Hospital [id number] Repository Date:0581-36-96KL [address]CNLNYYQ, [place] [address]IP: 07/15/2018 Tertiary NOT GIVENUNK [place] Insurance:SELF PAY [facility] Number: Effective Repository Date:2018-05-19 07/14/2018 JIGNESH M Primary JIGNESH M [place] [id number] [place] Insurance:MEDICARE BIGGSDOB: [facility] PART A BPolicy Number: [id number] Hospital 20840Sqr: 330 [id number] Repository [phone] () Date:2018-03-24 07/14/2018 Secondary JIGNESH M [place] Insurance:AARPPolicy BIGGSDOB: Community Number: [id number] Hospital [id number] Repository Date:2983-28-89KC [address]UYQTNWV, [place] [address]BA: 07/14/2018 Tertiary NOT GIVENUNK [place] Insurance:SELF PAY [facility] Number: Effective Repository Date:2018-05-13 07/07/2018 JIGNESH M Primary JIGNESH M [place] [id number] [place] Insurance:MEDICARE BIGGSDOB[facility] [place] PART A BPolicy Number: [id number] Hospital 82719Ezv: 330 [id number] Repository [phone] () Date:2018-03-30 07/07/2018 Secondary JIGNESH M [place] Insurance:AARPPolicy BIGGSDOB: Community Number: [id number] Hospital [id number] Repository Date:5951-02-70RQ [facility] 380475YOUKWPB, [place] [address]DE: 07/07/2018 Tertiary NOT GIVENUNK [place] Insurance:SELF PAY [facility]: Effective Repository Date:2018-06-30 07/06/2018 JIGNESH M Primary JIGNESH M [place] [id number] [place] Insurance:MEDICARE BIGGSDOB: [facility] [place] PART A BPolicy Number: [id number] Hospital 11633Gaz: (873) [id number] Repository [phone] () Date:2018-07-01 07/06/2018 Secondary JIGNESH M [place] Insurance:AARPPolicy BIGGSDOB: Community Number: [id number] Hospital [id number] Repository Date:8048-36-87BL [facility] 847547DDVZMCI, [place] [address]SH: 07/06/2018 Tertiary NOT GIVENUNK [place] Insurance:SELF PAY [facility] Number: Effective Repository Date:2018-07-01 07/01/2018 JIGNESH M Primary JIGNESH M [place] [id number] [place] Insurance:MEDICARE BIGGSDOB[facility] [place] PART A BPolicy Number: [id number] Hospital 59404Spk: (542) [id number] Repository [phone] () Date:2018-06-18 07/01/2018 Secondary JIGNESH M [place] Insurance:AARPPolicy BIGGSDOB: Community Number: [id number] Hospital [id number] Repository Date:5246-67-19ZN [facility] 858207JASXTZN, [place] [address]IT: 07/01/2018 Tertiary NOT GIVENUNK [place] Insurance:SELF PAY [facility] Number: Effective Repository Date:2018-07-01 07/01/2018 JIGNESH M Primary JIGNESH M [place] [id number] [place] Insurance:MEDICARE BIGGSDOB: [facility] PART A BPolicy Number: [id number] Hospital 46776Xyw: (691) [id number] Repository [phone] () Date:2018-06-18 07/01/2018 Secondary JIGNESH Paz [place] Insurance:AARPPolicy BIGGSDOB: Community Number: [id number] Hospital [id number] Repository Date:3110-33-01QC [address]DSHDUIV, [place] [address]CZ: 07/01/2018 Tertiary NOT GIVENUNK [place] Insurance:SELF PAY [facility] Number: Effective Repository Date:2018-06-18 06/21/2018 JIGNESH M Primary JIGNESH M [place] [id number] [place] Insurance:MEDICARE BIGGSDOB: [place] PART A BPolicy Number: [id number] Hospital 90677Mlj: 330 [id number] Repository [phone] () Date:2018-06-18 06/21/2018 Secondary JIGNESH M [place] Insurance:AARPPolicy BIGGSDOB: Community Number: [id number] Hospital [id number] Repository Date:2325-98-36FZ [address]VLJJMOE, [place] [address]MK: 06/21/2018 Tertiary NOT GIVENUNK [place] Insurance:SELF PAY [facility] Number: Effective Repository Date:2018-06-21 06/17/2018 JIGNESH M Primary Insurance:SELF NOT GIVENUNK [place] [id number] [place] [facility] Number[place] Effective Hospital 55051Jwn: (330) Date:2018-04-21 Repository [phone] () 06/16/2018 JIGNESH M Primary JIGNESH M [place] [id number] [place] Insurance:MEDICARE BIGG[place]OB: [place] PART A BPolicy Number: [id number] Hospital 24002Bvx: (578) [id number] Repository [phone] () Date:2018-06-11 06/16/2018 Secondary JIGNESH M [place] Insurance:AARPPolicy BIGGSDOB: Community Number: [id number] Hospital [id number] Repository Date:2224-31-21WW [facility] 696202UVLNBSK, [place] [address]QH: 06/16/2018 Tertiary NOT GIVENUNK [place] Insurance:SELF PAY [facility] Number: Effective Repository Date:2018-06-15 06/15/2018 JIGNESH M Primary JIGNESH M [place] [id number] [place] Insurance:MEDICARE BIGGSDOB: [facility], [place] PART A BPolicy Number: [id number] Hospital 16614Igd: (236) [id number] Repository [phone] () Date:2018-06-15 06/15/2018 Secondary JIGNESH M [place] Insurance:AARPPolicy BIGGSDOB: Community Number: [id number] Hospital [id number] Repository Date:1283-75-93DI [facility] 413744IRYVVGK, [place] [address]YF: 06/15/2018 Tertiary NOT GIVENUNK [place] Insurance:SELF PAY [facility] Number: Effective Repository Date:2018-06-15 06/10/2018 JIGNESH M Primary JIGNESH M [place] [id number] [place] Insurance:MEDICARE BIGGSDOB: [facility] PART A BPolicy Number: [id number] Hospital 44092Yyh: (024) [id number] Repository [phone] () Date:2018-06-10 06/10/2018 Secondary JIGNESH M [place] Insurance:AARPPolicy BIGGSDOB: Community Number: [id number] Hospital [id number] Repository Date:0464-56-84EN [facility] 839289SSOSEIP, [place] [address]DN: 06/10/2018 Tertiary NOT GIVENUNK [place] Insurance:SELF PAY [facility] Number: Effective Repository Date:2018-06-10 06/10/2018 JIGNESH M Primary JIGNESH M [place] [id number] [place] Insurance:MEDICARE BIGGSDOB: [facility], [place] PART A BPolicy Number: [id number] Hospital 17299Ovl: (905) [id number] Repository [phone] () Date:2018-06-10 06/10/2018 Secondary JIGNESH M [place] Insurance:AARPPolicy BIGGSDOB: Community Number: [id number] Hospital [id number] Repository Date:4360-08-89FL [facility] 172564BKHMPNP, [place] [address]YQ: 06/10/2018 Tertiary NOT GIVENUNK [place] Insurance:SELF PAY [facility] Number: Effective Repository Date:2018-06-10 06/10/2018 JIGNESH M Primary JIGNESH M [place] [id number] [place] Insurance:MEDICARE [place]OB: [place] PART A BPolicy Number: [id number] Hospital 30607Qvw: 330 [id number] Repository [phone] () Date:2018-06-10 06/10/2018 Secondary JIGNESH M [place] Insurance:AARPPolicy BIGGSDOB: Community Number: [id number] Hospital [id number] Repository Date:6640-83-10UE [address]HTLPMEA, [place] [address]ZI: 06/10/2018 Tertiary NOT GIVENUNK [place] Insurance:SELF PAY [facility] Number: Effective Repository Date:2018-06-10 06/10/2018 JIGNESH M Primary JIGNESH M [place] [id number] [place] Insurance:MEDICARE [place]OB: [place] PART A BPolicy Number: [id number] Hospital 62707Itb: 330 [id number] Repository [phone] () Date:2018-06-10 06/10/2018 Secondary JIGNESH M [place] Insurance:AARPPolicy BIGGSDOB: Community Number: [id number] Hospital [id number] Repository Date:2921-91-89TP [facility] 665133GDUDQZE, [place] [address]JG: 06/10/2018 Tertiary NOT GIVENUNK [place] Insurance:SELF PAY [facility] Number: Effective Repository Date:2018-06-10 06/08/2018 JIGNESH M Primary JIGNESH M [place] [id number] [place] Insurance:MEDICARE [place]: [place] PART A BPolicy Number: [id number] Hospital 41236Mwa: 330 [id number] Repository [phone] () Date:2018-05-25 06/08/2018 Secondary JIGNESH M [place] Insurance:AARPPolicy BIGGSDOB: Community Number: [id number] Hospital [id number] Repository Date:4208-55-25XP [address]DQKOFVC, [place] [address]ML: 06/08/2018 Tertiary NOT GIVENUNK [place] Insurance:SELF PAY [facility] Number: Effective Repository Date:2018-05-25 05/27/2018 JIGNESH M Primary JIGNESH M [place] [id number] [place] Insurance:MEDICARE BIG[place]OB: [place] PART A BPolicy Number: [id number] Hospital 11565Iqm: 330 [id number] Repository [phone] () Date:2017-10-15 05/27/2018 Secondary JIGNESH M [place] Insurance:AARPPolicy BIGGSDOB: Community Number: [id number] Hospital [id number] Repository Date:4946-21-41IV [address]OWQVWMN, [place] [address]VH: 05/27/2018 Tertiary NOT GIVENUNK [place] Insurance:SELF PAY [facility] Number: Effective Repository Date:2018-05-17 05/25/2018 JIGNESH M Primary JIGNESH M [place] [id number] [place] Insurance:MEDICARE [place]OB: [place] PART A BPolicy Number: [id number] Hospital 63329Ovp: 330 [id number] Repository [phone] () Date:2018-05-24 05/25/2018 Secondary JIGNESH M [place] Insurance:AARPPolicy BIGGSDOB: Community Number: [id number] Hospital [id number] Repository Date:8929-92-01OJ [address], [place] [address]YS: 05/25/2018 Tertiary NOT GIVENUNK [place] Insurance:SELF PAY [facility] Number: Effective Repository Date:2018-05-24 05/17/2018 JIGNESH M Primary JIGNESH M [place] [id number] [place] Insurance:MEDICARE [place]OB: [place] PART A BPolicy Number: [id number] Hospital 89632Dur: (859) [id number] Repository [phone] (HP) Date:2018-05-17 05/17/2018 Secondary JIGNESH M [place] Insurance:AARPPolicy BIGGSDOB: Community Number: [id number] Hospital [id number] Repository Date:6990-91-87VI [address], [place] [address]PC: 05/17/2018 Tertiary NOT GIVENUNK [place] Insurance:SELF PAY [facility] Number: Effective Repository Date:2018-05-17 05/13/2018 JIGNESH Primary JIGNESH [facility] BIGGSDOB: Insurance:MEDICARE A BIGGSDOB: Health System AND BPolicy Number: [id number] [id number] [place] Date: [address]Oil: () 05/13/2018 Secondary JIGNESH [facility] Insurance:[facility] AARP BIGGSDOB: Health System SUPPLEMENTPolicy [id number] Repository Number: [id number] Date: 05/13/2018 JIGNESH M Primary JIGNESH M [place] [id number] [place] Insurance:MEDICARE [place]OB: [place] PART A BPolicy Number: [id number] Hospital 78465Mjv: (005) [id number] Repository [phone] (HP) Date:2018-05-13 05/13/2018 Secondary JIGNESH M [place] Insurance:AARPPolicy BIGGSDOB: Community Number: [id number] Hospital [id number] Repository Date:7137-12-07JH [facility] 896645HBQKNHJ, [place] [address]OT: 05/13/2018 Tertiary NOT GIVENUNK [place] Insurance:SELF PAY [facility] Number: Effective Repository Date:2018-05-13 05/13/2018 JIGNESH M Primary JIGNESH M [place] [id number] [place] Insurance:MEDICARE BIGGSDOB: [facility] [place] PART A BPolicy Number: [id number] Hospital 14779Ccj: 330 [id number] Repository [phone] () Date:2018-05-06 05/13/2018 Secondary JIGNESH M [place] Insurance:AARPPolicy BIGGSDOB: Community Number: [id number] Hospital [id number] Repository Date:2096-77-68XZ [facility] 192950WSWFLHJ, [place] [address]JB: 05/13/2018 Tertiary NOT GIVENUNK [place] Insurance:SELF PAY [facility] Number: Effective Repository Date:2018-05-12 05/13/2018 JIGNESH M Primary JIGNESH M [place] [id number] [place] Insurance:MEDICARE BIGG[place]OB: [facility] PART [place] BPolicy Number: [id number] Hospital 21096Ppy: 330 [id number] Repository [phone] () Date:2017-10-15 05/13/2018 Secondary JIGNESH M [place] Insurance:AARPPolicy BIGGSDOB: Community Number: [id number] Hospital [id number] Repository Date:1887-51-70PU [address]UE[place]H, [place] [address]TP: 05/13/2018 Tertiary NOT GIVENUNK [place] Insurance:SELF PAY [facility] Number: Effective Repository Date:2018-04-17 05/11/2018 JIGNESH M Primary JIGNESH M [place] [id number] [place] Insurance:MEDICARE BIGGSDOB: [facility] [place] PART A BPolicy Number: [id number] Hospital 07657Pnh: 330 [id number] Repository [phone] () Date:2015-12-16 05/11/2018 Secondary JIGNESH M [place] Insurance:AARPPolicy BIGGSDOB: Community Number: [id number] Hospital [id number] Repository Date:5575-26-85ND [address]UOWWKZG, [place] [address]YI: 05/11/2018 Tertiary NOT GIVENUNK [place] Insurance:SELF PAY [facility] Number: Effective Repository Date:2018-04-20 05/03/2018 JIGNESH M Primary JIGNESH M [place] [id number] [place] Insurance:MEDICARE [place]OB: [place] PART A BPolicy Number: [id number] Hospital 97016Eam: 330 [id number] Repository [phone] () Date:2017-10-15 05/03/2018 Secondary JIGNESH M [place] Insurance:AARPPolicy BIGGSDOB: Community Number: [id number] Hospital [id number] Repository Date:8939-82-22ME [address]MZMJYBR, [place] [address]ZD: 05/03/2018 Tertiary NOT GIVENUNK [place] Insurance:SELF PAY [facility] Number: Effective Repository Date:2018-04-30 04/15/2018 JIGNESH M Primary Insurance:SELF NOT GIVENUNK [place] [id number] [place] [facility] [place] Number[place] Effective Hospital 15697Ple: (330) Date:2018-03-17 Repository [phone] () 04/06/2018 JIGNESH M Primary JIGNESH M [place] [id number] [place] Insurance:MEDICARE BIGGSDOB: [facility], [place] PART A BPolicy Number: [id number] Hospital 22450Nix: 330 [id number] Repository [phone] () Date:2015-12-16 04/06/2018 Secondary JIGNESH M [place] Insurance:AARPPolicy BIGGSDOB: Community Number: [id number] Hospital [id number] Repository Date:5175-31-62VT [address]ZMXADIW, [place] [address]ZC: 04/06/2018 Tertiary NOT GIVENUNK [place] Insurance:SELF PAY [facility] Number: Effective Repository Date:2018-03-18 03/30/2018 JIGNESH M Primary JIGNESH M [place] [id number] [place] Insurance:MEDICARE [place]OB[place] PART A BPolicy Number: [id number] Hospital 62712Jwn: 330 [id number] Repository [phone] () Date:2017-12-23 03/30/2018 Secondary JIGNESH M [place] Insurance:AARPPolicy BIGGSDOB: Community Number: [id number] Hospital [id number] Repository Date:8371-19-93PA [address]AB[place], [place] [address]OT: 03/30/2018 Tertiary NOT GIVENUNK [place] Insurance:SELF PAY [facility] Number: Effective Repository Date:2018-03-22 03/24/2018 JIGNESH M Primary JIGNESH M [place] [id number] [place] Insurance:MEDICARE BIGGSDOB: [facility] [place] PART A BPolicy Number: [id number] Hospital 10727Dqq: 330 [id number] Repository [phone] () Date:2018-01-01 03/24/2018 Secondary JIGNESH M [place] Insurance:AARPPolicy BIGGSDOB: Community Number: [id number] Hospital [id number] Repository Date:0783-27-37SF [address]VCXSRMP, [place] [address]GC: 03/24/2018 Tertiary NOT GIVENUNK [place] Insurance:SELF PAY [facility] Number: Effective Repository Date:2018-03-24 03/16/2018 JIGNESH M Primary JIGNESH M [place] [id number] [place] Insurance:MEDICARE [place]OB: [place] PART [place] BPolicy Number: [id number] Hospital 45941Quo: 330 [id number] Repository [phone] () Date:2018-03-15 03/16/2018 Secondary JIGNESH M [place] Insurance:AARPPolicy BIGGSDOB: Community Number: [id number] Hospital [id number] Repository Date:3258-31-87ZY [address]LRO[place], [place] [address]VL: 03/16/2018 Tertiary NOT GIVENUNK [place] Insurance:SELF PAY [facility] Number: Effective Repository Date:2018-03-16 03/16/2018 JIGNESH M Primary JIGNESH M [place] [id number] [place] Insurance:MEDICARE [place]OB: [place] PART A BPolicy Number: [id number] Hospital 98643Npg: (211) [id number] Repository [phone] () Date:2017-10-15 03/16/2018 Secondary JIGNESH M [place] Insurance:AARPPolicy BIGGSDOB: Community Number: [id number] Hospital [id number] Repository Date:5351-19-71XD [address]YYVCUXE, [place] [address]UG: 03/16/2018 Tertiary NOT GIVENUNK [place] Insurance:SELF PAY [facility] Number: Effective Repository Date:2018-02-14 03/09/2018 JIGNESH M Primary JIGNESH M [place] [id number] [place] Insurance:MEDIC[place]: [place] PART [place] BPolicy Number: [id number] Hospital 83996Ayd: (095) [id number] Repository [phone] () Date:2015-12-16 03/09/2018 Secondary JIGNESH M [place] Insurance:AARPPolicy BIGGSDOB: Community Number: [id number] Hospital [id number] Repository Date:1176-16-92HP [address]HCYTPIR, [place] [address]MU: 03/09/2018 Tertiary NOT GIVENUNK [place] Insurance:SELF PAY [facility] Number: Effective Repository Date:2018-02-12 02/11/2018 JIGNESH M Primary JIGNESH M [place] [id number] [place] Insurance:MEDICARE [place]: [place] PART A BPolicy Number: [id number] Hospital 12906Klv: (539) [id number] Repository [phone] () Date:2017-10-15 02/11/2018 Secondary JIGNESH M [place] Insurance:AARPPolicy BIGGSDOB: Community Number: [id number] Hospital [id number] Repository Date:8062-50-32MV [facility] 154221RUKHRRF, [place] [address]NT: 02/11/2018 Tertiary NOT GIVENUNK [place] Insurance:SELF PAY [facility] Number: Effective Repository Date:2018-01-15 02/10/2018 JIGNESH M Primary JIGNESH M [place] [id number] [place] Insurance:MEDICARE [place]: [place] PART [place] BPolicy Number: [id number] Hospital 54888Cqn: 330 [id number] Repository [phone] () Date:2018-02-10 02/10/2018 Secondary JIGNESH M [place] Insurance:AARPPolicy BIGGSDOB: Community Number: [id number] Hospital [id number] Repository Date:1878-39-58HH [address]YLCJHQB, [place] [address]XF: 02/10/2018 Tertiary NOT GIVENUNK [place] Insurance:SELF PAY [facility] Number: Effective Repository Date:2018-02-10 02/09/2018 JIGNESH M Primary JIGNESH M [place] [id number] [place] Insurance:MEDICARE [place]: [place] PART [place] BPolicy Number: [id number] Hospital 91110Wgv: (056) [id number] Repository [phone] () Date:2015-12-16 02/09/2018 Secondary JIGNESH M [place] Insurance:AARPPolicy BIGGSDOB: Community Number: [id number] Hospital [id number] Repository Date:0765-74-91MG [facility] 555886VVKIIEH, [place] [address]XH: 02/09/2018 Tertiary NOT GIVENUNK [place] Insurance:SELF PAY [facility] Number: Effective Repository Date:2018-01-14 01/14/2018 JIGNESH Paz Primary JIGNESH Paz [place] [id number] [place] Insurance:MEDICARE [place]OB[place] PART [place] BPolicy Number: [id number] Hospital 16296Meu: ([phone] [id number] Repository [phone] () Date:2015-12-16 01/14/2018 Secondary JIGNESH M [place] Insurance:AARPPolicy BIGGSDOB: Community Number: [id number] Hospital [id number] Repository Date:6104-22-01PT [address]JFAXTZI, [place] [address]PP: 01/14/2018 Tertiary NOT GIVENUNK [place] Insurance:SELF PAY [facility] Number: Effective Repository Date:2017-12-15 01/14/2018 JIGNESH M Primary JIGNESH Paz [place] [id number] [place] Insurance:MEDICARE [place]OB[place] PART [place] BPolicy Number: [id number] Hospital 25254Ubj: (068) [id number] Repository [phone] () Date:2017-10-15 01/14/2018 Secondary JIGNESH Paz [place] Insurance:AARPPolicy BIGGSDOB: Community Number: [id number] Hospital [id number] Repository Date:3604-51-40XJ [facility] 309722APOFECY, [place] [address]RF: 01/14/2018 Tertiary NOT GIVENUNK [place] Insurance:SELF PAY [facility] Number: Effective Repository Date:2017-12-15 01/02/2018 JIGNESH M Primary JIGNESH M [place] [id number] [place] Insurance:MEDICARE [place]OB[place] PART [place] BPolicy Number: [id number] Hospital 68891Aqj: (374) [id number] Repository [phone] () Date:2018-01-02 01/02/2018 Secondary JIGNESH M [place] Insurance:AARPPolicy BIGGSDOB: Community Number: [id number] Hospital [id number] Repository Date:1623-35-59PD [address]MUDWYMJ, [place] [address]CW: 01/02/2018 Tertiary NOT GIVENUNK [place] Insurance:SELF PAY [facility] Number: Effective Repository Date:2018-01-02 01/02/2018 JIGNESH Paz Primary JIGNESH Paz [place] [id number] [place] Insurance:MEDICARE [place]OB[place] BPolicy Number: [id number] Hospital 14880Ebm: (482) [id number] Repository [phone] () Date:2018-01-02 01/02/2018 Secondary JIGNESH Paz [place] Insurance:AARPPolicy BIGGSDOB: Community Number: [id number] Hospital [id number] Repository Date:4853-99-75KL [address], [place] [address]SW: 01/02/2018 Tertiary NOT GIVENUNK [place] Insurance:SELF PAY [facility]: Effective Repository Date:2018-01-02 01/01/2018 JIGNESH Paz Primary JIGNESH Paz [place] [id number] [place] Insurance:MEDICARE BIGGSDOB: [facility] [place] PART A BPolicy Number: [id number] [id number]: [phone] [id number] Repository [phone] () Date:2018-01-01 01/01/2018 Secondary JIGNESH M [place] Insurance:AARPPolicy BIGGSDOB: Community Number: [id number] [id number] Repository Date:[id number] [address]AD: 01/01/2018 Tertiary NOT GIVENUNK [place] Insurance:SELF PAY [facility] Number: Effective Repository Date:2018-01-01 12/23/2017 JIGNESH Paz Primary JIGNESH Paz [place] [id number] [place] Insurance:MEDICARE [place] PART A BPolicy Number: [id number] [facility] 96497Ivg: [phone] [id number] Repository [phone] () Date:2017-09-23 12/23/2017 Secondary JIGNESH M [place] Insurance:AARPPolicy BIGGSDOB: Community Number: [id number] [facility] [id number] Repository Date:8216-99-19LS [address]XFC[place]G, [place] [address]HU: 12/23/2017 Tertiary NOT [place]IV[place]UNK [place] Insurance:SELF PAY [facility] Number: Effective Repository Date:2017-12-21 12/21/2017 JIGNESH M Primary JIGNESH M [place] [id number] [place] Insurance:MEDICARE BIGG[place]OB: [place] PART A BPolicy Number: [id number] Hospital 63246Yka: [phone] [id number] Repository [phone] () Date:2017-09-07 12/21/2017 Secondary JIGNESH M [place] Insurance:AARPPolicy BIGGSDOB: Community Number: [id number] Hospital [id number] Repository Date:3213-92-15EI [address], [place] [address]BK: 12/21/2017 Tertiary NOT GIV[place]UNK [place] Insurance:SELF PAY [facility] Number: Effective Repository Date:2017-12-21 12/16/2017 JIGNESH M Primary JIGNESH M [place] [id number] [place] Insurance:MEDICARE [place]: [place] PART A BPolicy Number: [id number] Hospital 10231Yhv: [phone] [id number] Repository [phone] () Date:2017-10-16 12/16/2017 Secondary JIGNESH M [place] Insurance:AARPPolicy BIGGSDOB: Community Number: [id number] Hospital [id number] Repository Date:5690-74-63JD [address]MLQQYZC, [place] [address]GE: 12/16/2017 Tertiary NOT GIVENUNK [place] Insurance:SELF PAY [facility] Number: Effective Repository Date:2017-12-16 12/16/2017 JIGNESH Paz Primary JIGNESH Paz [place] [id number] [place] Insurance:MEDICARE [place] PART A BPolicy Number: [id number] Hospital 81483Rse: 330 [id number] Repository [phone] () Date:2017-10-16 12/16/2017 Secondary JIGNESH Paz [place] Insurance:AARPPolicy BIGGSDOB: Community Number: [id number] Hospital [id number] Repository Date:6743-33-25ND [address], [place] [address]UA: 12/16/2017 Tertiary NOT GIV[place]UNK [place] Insurance:SELF PAY [facility] Number: Effective Repository Date:2017-10-16 12/10/2017 JIGNESH Paz Primary JIGNESH Paz [place] [id number] [place] Insurance:MEDICARE BIGGSDOB: [facility] [place] PART A BPolicy Number: [id number] Hospital 72632Ryl: 330 [id number] Repository [phone] () Date:2017-10-15 12/10/2017 Secondary JIGNESH Paz [place] Insurance:AARPPolicy BIGGSDOB: Community Number: [id number] Hospital [id number] Repository Date:7739-20-70XV [address], [place] [address]SD: 12/10/2017 Tertiary NOT [place]IV[place]UNK [place] Insurance:SELF PAY [facility] Number: Effective Repository Date:2017-11-15 12/01/2017 JIGNESH Paz Primary JIGNESH M [place] [id number] [place] Insurance:MEDICARE [place] PART A BPolicy Number: [id number] Hospital 27175Mze: [phone] [id number] Repository [phone] () Date:2015-12-16 12/01/2017 Secondary JIGNESH M [place] Insurance:AARPPolicy BIG[place]SDOB: Community Number: [id number] Hospital [id number] Repository Date:3714-62-83GB [address]QP, [place] [address]AJ: 12/01/2017 Tertiary NOT [place]IV[place]UNK [place] Insurance:SELF PAY [facility] Number: Effective Repository Date:2017-11-16 11/17/2017 JIGNESH Paz Primary JIGNESH Paz [place] [id number] [place] Insurance:MEDICARE BIG[place]OB: [facility] [place] PART A BPolicy Number: [id number] Hospital 66158Jkl: [phone]) [id number] Repository [phone] () Date:2017-09-23 11/17/2017 Secondary JIGNESH Paz [place] Insurance:AARPPolicy BIG[place]SDOB: Community Number: [id number] Hospital [id number] Repository Date:1362-79-56OH [address], [place] [address]CS: 11/17/2017 Tertiary NOT GIVENUNK [place] Insurance:SELF PAY [facility] Number: Effective Repository Date:2017-11-17 11/17/2017 JIGNESH Paz Primary JIGNESH Paz [place] [id number] [place] Insurance:MEDICARE BIGGSDOB: [facility] [place] PART A BPolicy Number: [id number] Hospital 79634Hlk: 330 [id number] Repository [phone] () Date:2017-09-23 11/17/2017 Secondary JIGNESH Paz [place] Insurance:AARPPolicy BIG[place]OB: Community Number: [id number] Hospital [id number] Repository Date:5279-13-70PZ [address]BC[place]FJ, [place] [address]FN: 11/17/2017 Tertiary NOT [place]IV[place]UNK [place] Insurance:SELF PAY [facility] Number: Effective Repository Date:2017-09-23 11/12/2017 JIGNESH Paz Primary Insurance:SELF NOT GIVENUNK [place] [id number] [place] [facility] [place] Number: Effective Hospital 53032Joq: (330) Date:2017-10-15 Repository [phone] (HP) 11/10/2017 JIGNESH Paz Primary JIGNESH Paz [place] [id number] [place] Insurance:MEDICARE BIGGSDOB: [facility] [place] PART A BPolicy Number: [id number] Hospital 92762Hed: ([phone]) [id number] Repository [phone] (HP) Date:2017-10-20 11/10/2017 Secondary JIGNESH Paz [place] Insurance:AARPPolicy BIG[place]OB: Community Number: [id number] Hospital [id number] Repository Date:2530-36-03JW [address]HFQFBCK, [place] [address]DK: 11/10/2017 Tertiary NOT GIVENUNK [place] Insurance:SELF PAY [facility] Number: Effective Repository Date:2017-10-20 10/16/2017 JIGNESH Paz Primary Insurance:SELF NOT GIVENUNK [place] [id number] [place] Number: Effective Hospital [id number]: (330) Date:2017-10-16 Repository [phone] (HP) 10/15/2017 JIGNESH Paz Primary JIGNESH Paz [place] [id number] [place] Insurance:MEDICARE [place]: [place] PART A BPolicy Number: [id number] Hospital 91707Iad: (330) Effective Repository [phone] (HP) Date:2017-07-23 10/15/2017 Secondary JIGNESH M [place] Insurance:AARPPolicy BIGGSDOB: Community Number: Effective [id number] Hospital Date:9758-11-13PZ [address]OX Repository [address]XCDCSFK, [place] [address]RJ: 10/15/2017 Tertiary NOT GIVENUNK [place] Insurance:SELF PAY [facility] Number: Effective Repository Date:2017-10-15 10/13/2017 JIGNESH M Primary NOT GIVENUNK [place] [id number] [place] Insurance[place] BPolicy Number: Hospital [id number]: (330) Effective Repository [phone] (HP) Date:2017-09-17 10/13/2017 Secondary NOT GIV[place]UNK [place] Insurance:AARPPolicy Community Number: Effective Hospital Date:1574-72-34MO [address] Rep[address]Y, [place] [address]NW: 10/13/2017 Tertiary NOT GIVENUNK [place] Insurance:SELF PAY Community [facility] Hospital Number: Effective Repository Date:2017-09-17 10/08/2017 JIGNESH Paz Primary JIGNESH Paz [place] [id number] [place] Insurance:MEDICARE [place] BPolicy Number: [id number] Hospital 64564Gdk: [phone]) [id number] Repository [phone] () Date:2015-12-16 10/08/2017 Secondary JIGNESH Paz [place] Insurance:AARPPolicy BIG[place]SDOB: Community Number: [id number] Hospital [id number] Repository Date:7569-86-26HG [address]UD, [place] [address]JP: 10/08/2017 Tertiary NOT GIVENUNK [place] Insurance:SELF PAY [facility] Number: Effective Repository Date:2017-08-17 09/23/2017 JIGNESH Paz Primary JIGNESH Paz [place] [id number] [place] Insurance:MEDICARE BIG[place]OB: [facility] [place] PART [place] BPolicy Number: [id number] Hospital 86796Mps: [phone] [id number] Repository [phone] () Date:2017-07-27 09/23/2017 Secondary JIGNESH Paz [place] Insurance:AARPPolicy BIGGSDOB: Community Number: [id number] Hospital [id number] Repository Date:2921-68-91BZ [address], [place] [address]JW: 09/23/2017 Tertiary NOT GIVENUNK [place] Insurance:SELF PAY Community [facility] Hospital Number: Effective Repository Date:2017-07-27 09/17/2017 JIGNESH aPz Primary JIGNESH M [place] [id number] [place] Insurance:MEDICARE [place] PART A BPolicy Number: [id number] Hospital 55468Ksq: [phone] [id number] Repository [phone] () Date:2017-09-17 09/17/2017 Secondary JIGNESH M [place] Insurance:AARPPolicy BIG[place]SDOB: Community Number: [id number] Hospital [id number] Repository Date:1427-20-14OB [address], [place] [address]ET: 09/17/2017 Tertiary NOT [place]IV[place]UNK [place] Insurance:SELF PAY [facility] Number: Effective Repository Date:2017-09-17 09/15/2017 JIGNESH M Primary JIGNESH M [place] [id number] [place] Insurance:MEDICARE BIG[place]: [place] PART A BPolicy Number: [id number] Hospital 29304Fau: [phone] [id number] Repository [phone] () Date:2017-08-03 09/15/2017 Secondary JIGNESH M [place] Insurance:AARPPolicy BIGGSDOB: Community Number: [id number] Hospital [id number] Repository Date:0903-67-99FZ [address]JUIRN, [place] [address]PP: 09/15/2017 Tertiary NOT GIVENUNK [place] Insurance:SELF PAY [facility] Number: Effective Repository Date:2017-08-03 09/07/2017 JIGNESH M Primary JIGNESH M [place] [id number] [place] Insurance:MEDICARE [place]: [place] PART A BPolicy Number: [id number] Hospital 87074Yda: ([phone]) [id number] Repository [phone] () Date:2017-07-20 09/07/2017 Secondary JIGNESH M [place] Insurance:AARPPolicy BIGGSDOB: Community Number: [id number] Hospital [id number] Repository Date:6402-69-08VM [address]FM[place], [place] [address]VF: 09/07/2017 Tertiary NOT GIV[place]UNK [place] Insurance:SELF PAY [facility] Number: Effective Repository Date:2017-07-20 08/27/2017 Jignesh Paz Primary Insurance:SELF NOT GIV[place]UNK [place] [id number] [place] Number[place] Effective Hospital 817[address]Cey: (330) Date:2017-08-17 Repository [phone] () 08/18/2017 Jignesh Paz Primary Jignesh Chan [id number] [place] Insurance:MEDICARE BiggsDOB: [place] PART A BPolicy Number: [id number] Hospital 57292Bgj: (150) [id number] Repository [phone] () Date:2017-08-18 08/18/2017 Secondary Jignesh Paz [place] Insurance:AARPPolicy BiggsDOB: Community Number: [id number] Hospital [id number] Repository Date:6995-75-76MP [address]X[place]QT, [place] [address]IW: 08/18/2017 Tertiary NOT GIVENUNK [place] Insurance:SELF PAY [facility] Number: Effective Repository Date:2017-08-18 08/13/2017 Jignesh Paz Primary Jignesh Chan [id number] [place] Insurance:AARPPolicy [place]OB: [place] Number: [id number] Hospital 68498Owb: 330 [id number] Repository [phone] () Date:2852-99-05OE [address]YYGPBVF, [place] [address]TH: 08/13/2017 Secondary Jignesh Paz [place] Insurance:MEDICARE BiggsDOB: Community PART A BPolicy Number: [id number] Hospital [id number] Repository Date:2015-12-16 08/13/2017 Tertiary NOT GIVENUNK [place] Insurance:SELF PAY [facility] Number: Effective Repository Date:2017-07-17
== END ==
PROVIDERS: Family Provider Family Medicine; PCP Family Medicine; Referring Provider Nurse Practitioner Acute Care; Visit Provider Nurse Practitioner Acute Care
DX: R06.02 Shortness of breath (principal)
CPT/HCPCS: 71046

== ENCOUNTER 2018-07-20 06:44 | Outpatient (RCR) | payer SELFPAY ==
[2018-07-07 06:29] VITALS: BMI 25.2
== END 2018-08-16 23:59 ==
LOC: PR 06:44
PROVIDERS: Family Provider Family Medicine; PCP Family Medicine; Referring Provider Internal Medicine Critical Care Medicine; Visit Provider Internal Medicine Critical Care Medicine
DX: Z00.00 Encounter for general adult medical examination without abnormal findings (principal); I42.8 Other cardiomyopathies; I73.9 Peripheral vascular disease, unspecified
CPT/HCPCS: J7030; A4216

== ENCOUNTER → 2018-08-02 14:42 | Outpatient (CLI) | payer MEDICARE, OTHER, SELFPAY ==
[2018-07-07 06:29] VITALS: BMI 25.2
--- NOTE | 2018-08-02 14:44 | RAD_ITS ---
STUDY: X-RAY CHEST REASON FOR EXAM: Male, 67 years old. Short of breath. TECHNIQUE: Frontal and lateral views of the chest. COMPARISON: 07/16/2018 FINDINGS: No significant change. Evidence for underlying COPD. Pleural parenchymal scarring is seen in the right lung base. No definite infiltrates. The patient's known 13 mm mass of the left upper lobe is obscured by the power unit of the pacemaker. Normal size heart. Single pacemaker lead terminates in the right ventricle. Normal mediastinum and carina. Normal visualized pulmonary arteries. There is atherosclerotic calcification of the aortic arch with tortuosity. There are diffuse degenerative changes of the visualized thoracic spine. Numerous old bilateral rib fractures are seen. There is no demonstrated abnormality of the visualized soft tissue structures of the upper abdomen. RAD/Chest PA and Lateral IMPRESSION: No change. COPD. Pleural parenchymal scarring in the right lower hemithorax. Electronically Signed: Pool Strong MD at 15:20 EST , Service support ,
--- OUTSIDE RECORDS SUMMARY | 2018-11-04 07:34 | XMS RPT_ITS ---
:1950 Author Organization OHIP Support Name Relationship Address Phone YOGESH RAMIRESRA Unavailable [address] + [place] [address] LEDESMA, SHAYY Unavailable [address] + [place] [address] R Unavailable Unavailable Unavailable JESSICA, REYNA Unavailable [address] + [place] [address] LEDESMA, SHAYY Unavailable [address] + [place] [address] R Unavailable Unavailable Unavailable JESSICA, REYNA Unavailable [address] + [place] [address] LEDESMA, SHAYY Unavailable [address] + [place] [address] R Unavailable Unavailable Unavailable JESSICA, REYNA Unavailable [address] + [place] [address] LEDESMA, SHAYY Unavailable [address] + [place] [address] R Unavailable Unavailable Unavailable JESSICA, REYNA Unavailable [address] + [place] [address] LEDESMA, SHAYY Unavailable [address] + [place] [address] R Unavailable Unavailable Unavailable JESSICA, REYNA Unavailable [address] + [place] [address] LEDESMA, SHAYY Unavailable [address] + [place] [address] R Unavailable Unavailable Unavailable JESSICA, REYNA Unavailable [address] + [place] [address] LEDESMA, SHAYY Unavailable [address] + [place] [address] R Unavailable Unavailable Unavailable JESSICA, REYNA Unavailable [address] + [place] [address] LEDESMA, SHAYY Unavailable [address] + [place] [address] R Unavailable Unavailable Unavailable JESSICA, REYNA Unavailable [address] + [place] [address] LEDESMA, SHAYY Unavailable [address] + [place] [address] R Unavailable Unavailable Unavailable JESSICA, REYNA Unavailable [address] + [place] [address] LEDESMA, SHAYY Unavailable [address] + [place] [address] R Unavailable Unavailable Unavailable JESSICA, REYNA Unavailable [address] + [place] [address] LEDESMA, SHAYY Unavailable . + [place] [address] R Unavailable Unavailable Unavailable JESSICA, REYNA Unavailable [address] + [place] [address] LEDESMA, SHAYY Unavailable . + [place] [address] R Unavailable Unavailable Unavailable JESSICA, REYNA Unavailable [address] + [place] [address] LEDESMA, SHAYY Unavailable . + [place] [address] R Unavailable Unavailable Unavailable JESSICA, REYNA Unavailable [address] + [place] [address] LEDESMA, SHAYY Unavailable Unavailable + [place] [address] R Unavailable Unavailable Unavailable JESSICA, REYNA Unavailable [address] + [place] [address] LEDESMA, SHAYY Unavailable [address] + [place] [address] SCHIG Unavailable [address] [facility]. + [place] [address] JESSICA, REYNA Unavailable [address] + [place] [address] LEDESMA, SHAYY Unavailable . + [place] [address] R Unavailable Unavailable Unavailable JESSICA, REYNA Unavailable [address] + [place] [address] LEDESMA, SHAYY Unavailable [address] + [place] [address] SCHIG Unavailable [address] [facility] + [place] [address] JESSICA, REYNA Unavailable [address] + [place] [address] LEDESMA, SHAYY Unavailable [address] + [place] [address] SCH[facility] Unavailable [address] [facility] + [place] [address] JESSICA, REYNA Unavailable [address] + [place] [address] LEDESMA, SHAYY Unavailable [address] + [place] [address] [facility] Unavailable [address] [facility] + [place] [address] JESSICA, REYNA Unavailable [address] + [place] [address] LEDESMA, SHAYY Unavailable [address] + [place] [address] [facility] Unavailable [address] [facility] + [place] [address] JESSICA, REYNA Unavailable [address] + [place] [address] LEDESMA, SHAYY Unavailable [address] + [place] [address] [facility] Unavailable [address] [facility] + [place] [address] JESSICA, REYNA Unavailable [address] + [place] [address] LEDESMA, SHAYY Unavailable [address] + [place] [address] SCH[facility] Unavailable [address] [facility] + [place] [address] JESSICA, REYNA Unavailable [address] + [place] [address] LEDESMA, SHAYY Unavailable [address] + [place] [address] SCH[facility] Unavailable [address] [facility] + [place] [address] JESSICA, REYNA Unavailable [address] + [place] [address] LEDESMA, SHAYY Unavailable [address] + [place] [address] SCH[facility] Unavailable [address] [facility] + [place] [address] JESSICA, REYNA Unavailable [address] + [place] [address] LEDESMA, SHAYY Unavailable [address] + [place] [address] SCH[facility] Unavailable [address] [facility] + [place] [address] JESSICA, REYNA Unavailable [address] + [place] [address] LEDESMA, SHAYY Unavailable [address] + [place] [address] SCH[facility] Unavailable [address] [facility] + [place] [address] JESSICA, REYNA Unavailable [address] + [place] [address] LEDESMA, SHAYY Unavailable [address] + [place] [address] SCH[facility] Unavailable [address] [facility] + [place] [address] JESSICA, REYNA Unavailable [address] + [place] [address] LEDESMA, SHAYY Unavailable [address] + [place] [address] SCH[facility] Unavailable [address] [facility] + [place] [address] JESSICA, REYNA Unavailable [address] + [place] [address] LEDESMA, SHAYY Unavailable [address] + [place] [address] [facility] Unavailable [address] [facility] + [place] [address] JESSICA, REYNA Unavailable [address] + [place] [address] LEDESMA, SHAYY Unavailable [address] + [place] [address] SCH[facility] Unavailable [address] [facility] + [place] [address] JESSICA, REYNA Unavailable [address] + [place] [address] LEDESMA, SHAYY Unavailable [address] + [place] [address] [facility] Unavailable [address] [facility] + [place] [address] JESSICA, REYNA Unavailable [address] + [place] [address] LEDESMA, SHAYY Unavailable [address] + [place] [address] [facility] Unavailable [address] [facility] + [place] [address] JESSICA, REYNA Unavailable [address] + [place] [address] LEDESMA, SHAYY Unavailable [address] + [place] [address] [facility] Unavailable [address] [facility] + [place] [address] JESSICA, REYNA Unavailable [address] + [place] [address] LEDESMA, SHAYY Unavailable [address] + [place] [address] [facility] Unavailable [address] [facility] + [place] [address] JESSICA, REYNA Unavailable [address] + [place] [address] LEDESMA, SHAYY Unavailable [address] + [place] [address] [facility] Unavailable [address] [facility] + [place] [address] JESSICA, REYNA Unavailable [address] + [place] [address] LEDESMA, SHAYY Unavailable [address] + [place] [address] [facility] Unavailable [address] [facility] + [place] [address] JESSICA, REYNA Unavailable [address] + [place] [address] LEDESMA, SHAYY Unavailable [address] + [place] [address] [facility] Unavailable [address] [facility] + [place] [address] JESSICA, REYNA Unavailable [address] + [place] [address] LEDESMA, SHAYY Unavailable [address] + [place] [address] [facility] Unavailable [address] [facility] + [place] [address] JESSICA, REYNA Unavailable [address] + [place] [address] LEDESMA, SHAYY Unavailable [address] + [place] [address] [facility] Unavailable [address] [facility] + [place] [address] JESSICA, REYNA Unavailable [address] + [place] [address] LEDESMA, SHAYY Unavailable [address] + [place] [address] [facility] Unavailable [address] [facility] + [place] [address] JESSICA, REYNA Unavailable [address] + [place] [address] LEDESMA, SHAYY Unavailable [address] + [place] [address] [facility] Unavailable [address] [facility] + [place] [address] JESSICA, REYNA Unavailable [address] + [place] [address] LEDESMA, SHAYY Unavailable [address] + [place] [address] SCH[facility] Unavailable [address] + [place] [address] JESSICA, REYNA Unavailable [address] + [place] [address] LEDESMA, SHAYY Unavailable Unavailable + [place] [address] SCH[facility] Unavailable [address] [facility]. + [place] [address] JESSICA, REYNA Unavailable [address] + [place] [address] LEDESMA, SHAYY Unavailable . + [place] [address] SCH[facility] Unavailable [address] [facility] + [place] [address] JESSICA, REYNA Unavailable [address] + [place] [address] LEDESMA, SHAYY Unavailable . + [place] [address] SCHIG Unavailable [address] [facility] + [place] [address] JESSICA, REYNA Unavailable [address] + [place] [address] LEDESMA, SHAYY Unavailable . + [place] [address] SCHIG Unavailable [address] [facility] + [place] [address] JESSICA, REYNA Unavailable [address] + [place] [address] LEDESMA, SHAYY Unavailable . + [place] [address] SCHIG Unavailable [address] [facility] + [place] [address] JESSICA, REYNA Unavailable [address] + [place] [address] LEDESMA, SHAYY Unavailable . + [place] [address] SCHIG Unavailable [address] [facility] + [place] [address] JESSICA, REYNA Unavailable [address] + [place] [address] LEDESMA, SHAYY Unavailable . + [place] [address] SCHIG Unavailable [address] [facility] + [place] [address] JESSICA, REYNA Unavailable [address] + [place] [address] LEDESMA, SHAYY Unavailable . + [place] [address] SCHIG Unavailable [address] [facility] + [place] [address] JESSICA, REYNA Unavailable [address] + [place] [address] LEDESMA, SHAYY Unavailable . + [place] [address] SCHIG Unavailable [address] [facility]. + [place] [address] JESSICA, REYNA Unavailable [address] + [place] [address] LEDESMA, SHAYY Unavailable Unavailable + [place] [address] SCHIG Unavailable [address] [facility]. + [place] [address] JESSICA, REYNA Unavailable [address] + [place] [address] LEDESMA, SHAYY Unavailable Unavailable + [place] [address] SCHIG Unavailable [address] [facility]. + [place] [address] JESSICA, RYENA Unavailable [address] + [place] [address] LEDESMA, SHAYY Unavailable Unavailable + [place] [address] SCHIG Unavailable [address] [facility]. + [place] [address] JESSICA, REYNA Unavailable [address] + [place] [address] LEDESMA, SHAYY Unavailable Unavailable + [place] [address] SCH[facility] Unavailable [address] [facility]. + [place] [address] JESSICA, REYNA Unavailable [address] + [place] [address] LEDESMA, SHAYY Unavailable Unavailable + [place] [address] SCH[facility] Unavailable [address] [facility]. + [place] [address] JESSICA, REYNA Unavailable [address] + [place] [address] LEDESMA, SHAYY Unavailable Unavailable + [place] [address] SCH[facility] Unavailable [address] [facility]. + [place] [address] JESSICA, REYNA Unavailable [address] + [place] [address] LEDESMA, SHAYY Unavailable Unavailable + [place] [address] SCH[facility] Unavailable [address] [facility]. + [place] [address] JESSICA, REYNA Unavailable [address] + [place] [address] LEDESMA, SHAYY Unavailable . + [place] [address] SCHIG Unavailable [address] [facility]. + [place] [address] JESSICA, REYNA Unavailable [address] + [place] [address] LEDESMA, SHAYY Unavailable Unavailable + [place] [address] SCH[facility] Unavailable [address] [facility]. + [place] [address] JESSICA, REYNA Unavailable [address] + [place] [address] LEDESMA, SHAYY Unavailable . + [place] [address] SCHIG Unavailable [address] [facility] + [place] [address] JESSICA, REYNA Unavailable [address] + [place] [address] LEDESMA, SHAYY Unavailable . + [place] [address] SCHIG Unavailable [address] + [place] [address] JESSICA, REYNA Unavailable [address] + [place] [address] LEDESMA, SHAYY Unavailable . + [place] [address] SCHIG Unavailable [address] [facility] + [place] [address] JESSICA, REYNA Unavailable [address] + [place] [address] LEDESMA, SHAYY Unavailable . + [place] [address] SCHIG Unavailable [address] [facility] + [place] [address] JESSICA, REYNA Unavailable [address] + [place] [address] LEDESMA, SHAYY Unavailable . + [place] [address] SCHIG Unavailable [address] [facility] + [place] [address] JESSICA, REYNA Unavailable [address] + [place] [address] LEDESMA, SHAYY Unavailable . + [place] [address] SCHIG Unavailable [address] [facility]. + [place] [address] Care Team Providers Name Role Phone LASHAWN ECHEVERRIA Admitting Unavailable LASHAWN ECHEVERRIA Attending Unavailable RIANA AUSTIN Unavailable Clovis Rodríguez Attending Unavailable Cebul III, Jose Primary Care Unavailable Clovis Rodríguez Attending Unavailable Cebul III, Jose Primary Care Unavailable Cheryl Schaeffer Attending Unavailable Cheryl Schaeffer Referring Unavailable Cebul III, Jose Primary Care Unavailable MarcosClovis xavier Attending Unavailable Cebul III, Jose Primary Care Unavailable Clovis Rodríguez Referring Unavailable Clovis Rodríguez Attending Unavailable Cehryl Schaeffer Referring Unavailable MarcosClovis xavier Attending Unavailable Clovis Rodríguez Referring Unavailable Cebul III, Jose Primary Care Unavailable Ivelisse North Attending Unavailable Cebul III, Jose Referring Unavailable Cebul III, Jose Primary Care Unavailable Clovis Rodríguez Attending Unavailable MarcosClovis xavier Referring Unavailable Cebul III, Jose Primary Care Unavailable Cheryl Schaeffer Attending Unavailable Cebul III, Jose Referring Unavailable Cheryl Schaeffer Attending Unavailable Cebul III, Jose Referring Unavailable Cebul III, Jose Primary Care Unavailable MarcosClovis xavier Attending Unavailable Marcos, Clovis Referring Unavailable Cebul III, Jose Primary Care Unavailable Marcos, Clovis Attending Unavailable Marcos, Clovis Referring Unavailable Cebul III, Jose Primary Care Unavailable Marcos, Clovis Attending Unavailable Marcos, Clovis Referring Unavailable Cebul III, Jose Primary Care Unavailable Marcos, Clovis Attending Unavailable Marcos, Clovis Referring Unavailable Cebul III, Jose Primary Care Unavailable Case Florian Attending Unavailable Case Florian Referring Unavailable Cebul III, Jose Primary Care Unavailable [facility], Braydon H Consulting Unavailable Case Florian Attending Unavailable Case Florian Referring Unavailable Cebul III, Jose Primary Care Unavailable [facility], Braydon H Consulting Unavailable MarcosClovis Attending Unavailable Marcos, Clovis Referring Unavailable Cebul III, Jose Primary Care Unavailable Case Florian Attending Unavailable Case Florian Referring Unavailable Cebul III, Jose Primary Care Unavailable [facility], Braydon H Consulting Unavailable Shane Goetz Attending Unavailable Cebul III, Jose Referring Unavailable Cebul III, Jose Primary Care Unavailable MarcosClovis xavier Attending Unavailable Marcos, Clovis Referring Unavailable Cebul III, Jose Primary Care Unavailable Case Florian Attending Unavailable Case Florian Referring Unavailable Cebul III, Jose Primary Care Unavailable [facility], Braydon H Consulting Unavailable Case Florian Attending Unavailable Cebul III, Jose Primary Care Unavailable Samerea Tan Attending Unavailable Darren Rios Attending Unavailable Cebul III, Jose Referring Unavailable Cebul III, Jose Primary Care Unavailable MarcosClovis xavier Attending Unavailable Cebul III, Jose Referring Unavailable Cebul III, Jose Primary Care Unavailable Shanelle August Attending Unavailable Cebul III, Jose Referring Unavailable Case Florian Attending Unavailable Case Florian Referring Unavailable Cebul III, Jose Primary Care Unavailable [facility], Braydon H Consulting Unavailable Case Florian Attending Unavailable Case Florian Referring Unavailable Cebul III, Jose Primary Care Unavailable Case Florian Attending Unavailable Case Florian Referring Unavailable Cebul III, Jose Primary Care Unavailable Roof, Braydon H Consulting Unavailable Cheryl Schaeffer Attending Unavailable Cheryl Schaeffer Referring Unavailable Cebul III, Jose Primary Care Unavailable Case Florian Attending Unavailable Case Florian Referring Unavailable Cebul III, Jose Primary Care Unavailable Cebul III, Jose Consulting Unavailable Jennifer Carter Attending Unavailable Cebul III, Jose Primary Care Unavailable Case Florian Attending Unavailable Cebul III, Jose Referring Unavailable MascBen cavanaugh Attending Unavailable MascBen cavanaugh Referring Unavailable Cebul III, Jose Primary Care Unavailable Clovis Rodríguez Attending Unavailable Marcos, Clovis Referring Unavailable Cebul III, Jose Primary Care Unavailable MarcosClovis xavier Attending Unavailable Marcos, Clovis Referring Unavailable Cebul III, Jose Primary Care Unavailable Case Florian Attending Unavailable Case Florian Referring Unavailable Cebul III, Jose Primary Care Unavailable Roof, Braydon H Consulting Unavailable Cebul III, Jose Attending Unavailable Cebul III, Jose Primary Care Unavailable Case Florian Attending Unavailable Cebul III, Jose Referring Unavailable Cebul III, Jose Primary Care Unavailable Cheryl Schaeffer Attending Unavailable Cebul III, Jose Referring Unavailable Cebul III, Jose Primary Care Unavailable Cristel Martell Attending Unavailable Case Florian Attending Unavailable Cebul III, Jose Primary Care Unavailable Case Florian Referring Unavailable Roof, Braydon H Consulting Unavailable Shanelle August Attending Unavailable Cebul III, Jose Referring Unavailable Cebul III, Jose Primary Care Unavailable Case Florian Attending Unavailable Case Florian Referring Unavailable Cebul III, Jose Primary Care Unavailable Roof, Braydon H Consulting Unavailable Cheryl Schaeffer Attending Unavailable Cheryl Schaeffer Referring Unavailable Cebul III, Jose Primary Care Unavailable Shanelle August Attending Unavailable Cebul III, Jose Referring Unavailable MarcosClovis xavier Attending Unavailable Cebul III, Jose Referring Unavailable IsckarusJillian Attending Unavailable Isckarus, Sbour Referring Unavailable Cebul III, Jose Primary Care Unavailable Cheryl Schaeffer Consulting Unavailable IsckarusJillian Attending Unavailable Cheryl Schaeffer Referring Unavailable Cebul III, Jose Primary Care Unavailable Isckarus, Mansour Consulting Unavailable Isckarus, Jillian Attending Unavailable Cebul III, Jose Primary Care Unavailable Isckarus, [place]our Consulting Unavailable IsckarusJillian Attending Unavailable Cebul III, Jose Primary Care Unavailable Cheryl Schaeffer Referring Unavailable Isckarus, [place]our Consulting Unavailable Cheryl Schaeffer Attending Unavailable Cebul III, Jose Referring Unavailable SchaefferCheryl Attending Unavailable Schaeffer, Cheryl Referring Unavailable Cebul III, Jose Primary Care Unavailable Neha Hall Admitting Unavailable Angel Gary D.O. Attending Unavailable Cebul III, Jose Primary Care Unavailable Angel Gary D.O. Consulting Unavailable Steinberger, Ben Consulting Unavailable Koram, Neha Elzbieta Admitting Unavailable Steinberger, Ben Attending Unavailable Cebul III, Jose Primary Care Unavailable Angel Gary D.O. Consulting Unavailable Steinberger, Ben Consulting Unavailable Koram, Neha Elzbieta Admitting Unavailable Koram, Neha Elzbieta Attending Unavailable Cebul III, Jose Primary Care Unavailable Angel Gary D.O. Consulting Unavailable Koram, Neha Elzbieta Consulting Unavailable Cebul III, Jose Primary Care Unavailable Angel Gary D.O. Consulting Unavailable Koram, Neha Elzbieta Admitting Unavailable Nba, Ben Attending Unavailable Cheryl Schaeffer Attending Unavailable Maksim, Cheryl Referring Unavailable Cebul III, Jose Primary Care Unavailable Cheryl Schaeffer Attending Unavailable Cebul III, Jose Referring Unavailable Krystal Sarabia Attending Unavailable Cheryl Schaeffer Attending Unavailable Cebul III, Jose Referring Unavailable Case Florian Attending Unavailable Cebul III, Jose Referring Unavailable Cebul III, Jose Primary Care Unavailable Shanelle August Attending Unavailable Cebul III, Jose Referring Unavailable Cebul III, Jose Primary Care Unavailable Clovis Rodríguez Attending Unavailable Cebul III, Jose Primary Care Unavailable Cebul III, Jose Primary Care Unavailable Case Strauss Attending Unavailable Óscar, Case Attending Unavailable Case Florian Referring Unavailable Cebul III, Jose Primary Care Unavailable Braydon Dixon Consulting Unavailable MASCIBEN Attending Unavailable MASCI, BEN Garner Referring Unavailable MASCI, BEN Pascual Referring Unavailable MASCI, BEN A Referring Unavailable MASCI, BEN A Referring Unavailable MASCI, BEN A Referring Unavailable GILLIAN HOLM (SEAM CHECKER) Attending Unavailable MASCI, BEN A Referring Unavailable MASCI, BEN A Referring Unavailable MASCI, BEN A Referring Unavailable MASCI, BEN A Referring Unavailable MASCI, BEN A Referring Unavailable MASCI, BEN A Referring Unavailable MASCI, BEN A Referring Unavailable MASCI, BEN A Attending Unavailable MASCI, BEN A Referring Unavailable MASCI, BEN Pascual Attending Unavailable CEBUL III, JOSE A Referring Unavailable JENNIFER GARCIA (ROLL FORMING SUPERVISOR) Referring Unavailable CEBUL III, JOSE A Referring Unavailable CEBUL III, JOSE Pascual Attending Unavailable CEBUL III, JOSE A Attending Unavailable AMALIA BALTAZAR (SEAM CHECKER) Attending Unavailable CEBUL III, JOSE Pascual Attending Unavailable MASCI, BEN A Referring Unavailable MASCI, BEN A Referring Unavailable MASCI, BEN A Referring Unavailable MASCI, BEN A Attending Unavailable MASCI, BEN A Referring Unavailable MASCI, BEN A Referring Unavailable MASCI, BEN A Referring Unavailable MASCI, BEN A Referring Unavailable MASCI, BEN A Referring Unavailable JUDITSHERRI Referring Unavailable MASCI, BEN A Referring Unavailable MASCI, BEN A Referring Unavailable CEBUL, JOSE Primary Care Unavailable MALLAT, ALI F Admitting Unavailable MALLAT, ALI F Attending Unavailable UNKNOWN, PROVIDER Consulting Unavailable PROBLEMS PROBLEMS DATE TYPE CONDITION / CODE ATTENDING STATUS SOURCE 09/01/2018 Unknown 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, 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 Hospital / I51.3(ICD-10) Repository 08/27/2018 Unknown R06.02 - Shortness of Case Florian Active [place] breath / Community R06.02(ICD-10) Hospital Repository 06/24/2018 Active 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, left Clinic Main bronchus or lung / [place] C34.12(ICD-10) Repository 08/16/2018 Unknown Z79.01 - nursing home Óscar Case Active [place] (current) use of Community 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 / Hospital Z79.01(ICD-10) Repository 07/12/2018 Active Malignant neoplasm of NA Active [facility] unspecified part of Clinic Main unspecified bronchus [place] or lung / Repository C34.90(ICD-10) 08/17/2018 Unknown Z00.00 - Encounter Clovis Rodríguez Active [place] for general adult [facility] Hospital without abnormal Repository findings / Z00.00(ICD-10) 08/17/2018 Unknown 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 / Community I42.8(ICD-10) Hospital Repository 08/17/2018 Unknown I73.9 - Peripheral MarcosClovis xavier Active [place] vascular disease, Community unspecified / Hospital I73.9(ICD-10) Repository 07/19/2018 Unknown Z79.899 - Other long Case Florian Active [place] term (current) drug Community therapy / Hospital Z79.899(ICD-10) Repository 07/12/2018 Unknown 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, 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, left bronchus Hospital or lung / Repository C34.12(ICD-10) 07/12/2018 Unknown 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, 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, unspecified / [facility] M89.9(ICD-10) Hospital Repository 07/12/2018 Unknown Z01.812 - Encounter Isckarus, Active [place] for preprocedural [facility] laboratory Hospital examination / Repository Z01.812(ICD-10) 07/12/2018 Unknown R93.89 - Abnormal Isckarus, Active [place] findings on [facility] diagnostic imaging of Hospital other specified body Repository structures / R93.89(ICD-10) 05/16/2018 Active Other specified NA Active [place] health status / Clinic Main Z78.9(ICD-10) [place] Repository 09/11/2016 Active Hypothyroidism, NA Active [facility] unspecified / Clinic Main E03.9(ICD-10) [place] Repository 06/21/2018 Active Nutritional anemia, NA Active [facility] unspecified / Clinic Main D53.9(ICD-10) [place] Repository 06/21/2018 Active Encounter for NA Active [place] screening for Clinic Main malignant neoplasm of [place] colon / Repository Z12.11(ICD-10) 06/16/2018 Unknown 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, 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 Hospital unspecified bronchus Repository or lung / C34.90(ICD-10) 06/08/2018 Unknown 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, 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 / [facility] [place] R91.1(ICD-10) Hospital Repository 06/08/2018 Unknown T14.8XXA - Other Schaeffer, Active [place] injury of unspecified [facility] [place] body region, initial Hospital encounter / Repository T14.8XXA(ICD-10) 05/13/2018 Active Multiple fractures of MALLAT, ALI Active [place] ribs, right side, Clinic Other initial encounter for [place] closed fracture / Repository S22.41XA(ICD-10) 05/13/2018 Active Respiratory disorder, MALLAT, ALI Active [place] unspecified / Clinic Other J98.9(ICD-10) [place] Repository 05/13/2018 Active 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) MALLAT, ALI Active [place] use of 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 Clinic Other / Z79.01(ICD-10) [place] Repository 05/13/2018 Active Hypocalcemia / MALLAT, ALI Active [place] E83.51(ICD-10) Clinic Other [place] Repository 05/13/2018 Active Hypomagnesemia / MALLATLASHAWN Active [place] E83.42(ICD-10) [facility] Other [place] Repository 05/13/2018 Active Anemia, unspecified / MALLAT ALI Active [place] D64.9(ICD-10) Clinic Other [place] Repository 05/13/2018 Admitting Unknown / JUWAN LASHAWN F Active [facility] diagnosis UNK(Unknown) [facility] Repository 04/20/2018 Unknown E78.5 - Case Florian Active [place] Hyperlipidemia, Community unspecified / Hospital E78.5(ICD-10) Repository 02/12/2018 Unknown I42.9 - Case Florian Active [place] Cardiomyopathy, Community unspecified / Hospital I42.9(ICD-10) Repository 11/16/2017 Active Unknown / CEBUL III, Active [place] UNK(Unknown) [facility] [place] Repository 12/06/2017 Unknown E03.9 - Case Florian Active [place] Hypothyroidism, Community unspecified / Hospital E03.9(ICD-10) Repository 11/27/2017 Unknown I51.9 - Heart Case Florian Active [place] disease, unspecified Community / I51.9(ICD-10) Hospital Repository 11/27/2017 Unknown I50.9 - Heart Case Florian Active [place] failure, unspecified Community / I50.9(ICD-10) Hospital Repository 11/27/2017 Unknown I27.20 - Pulmonary Case Florian Active [place] hypertension, Community unspecified / Hospital I27.20(ICD-10) Repository 09/23/2017 Unknown J44.9 - Chronic Schaeffer, Active [place] obstructive pulmonary Cheryl Community disease, unspecified Hospital / J44.9(ICD-10) Repository PROCEDURES PROCEDURES No Procedure Records FoundRESULTS RESULTS [facility] ABS GR + CBC Collected: 09/06/2018 Status: F Source: [place] 9:23 AM [facility] REPOSITORY TYPE CODE TESTS RESULT OUT OF REFERENCE UNITS RANGE LAB WWBC 3.70-11.00 k/uL [place] WBC 8.22 LAB WRBC 4.20-6.00 m/uL Low [place] RBC 2.97 LAB WHGB 13.0-17.0 g/dL Low [place] Hemoglobin 9.1 LAB WHCT 39.0-51.0 % Low [place] Hematocrit 27.1 LAB WMCV 80.0-100.0 fL [place] MCV 91.2 LAB WMCH 26.0-34.0 pg [place] MCH 30.6 LAB WMCHC 30.5-36.0 g/dL [place] MCHC 33.6 LAB WRDW 11.5-15.0 % [place] RDW 14.1 LAB WPLT 150-400 k/uL [place] Platelet Cnt 264 LAB WMPV 9.0-12.7 fL Low [place] MPV 8.7 Result Comment: Test performed at: [facility], [address] [place] [address] Rd., [place] [address]. LAB ABGRAN 1.45-7.50 k/uL Absol Gran 6.03 Count PROTIME W/INR Collected: 09/01/2018 Status: F Source: [place] 6:07 AM [facility] REPOSITORY TYPE CODE TESTS RESULT OUT OF REFERENCE UNITS RANGE LAB L9200.1001 11.9-14.4 SEC High PROTIME ISTAT 17.6 Result Comment: Reference Range 11.9 - 14.4 LAB L9200.2000 Normal INR ISTAT 1.50 Result Comment: Critical Value > 3.5 Performed By: #### L9200.0000 #### [facility] Point of Care [address] [place] [address] PROGRESS Observed: 08/30/2018 Status: COMPLETED Source: [place] 1:42 PM [facility] REPOSITORY HNO ID: [id number] Author: Ben Murcia Service: (none) Author Type: Physician Type: Progress Notes Filed: 08/30/2018 3:09 PM Note Text: Diagnosis: 1) Extensive stage small cell lung cancer. HPI: The patient is a 67-year-old male who has a past medical history significant for hypertension, severe COPD (oxygen requiring) coronary artery disease, cardiomyopathy (nonischemic; EF 15-20% on heart catheterization 08/29/2016. Repeat echo 12/17/2016 demonstrated LVEF 20-35%), hyperlipidemia, peripheral vascular disease who was admitted to [facility] in April following a fall where he [...] CD 56 were both negative as well. PET 06/28/2018: 1. A distinct nodular focus [...] aneurysm formation. Coronary arterial calcification is observed. Zvbp-A-Xlnk-MediPort placement is noted. ABDOMEN AND PELVIS: Atherosclerotic [...] See comment. ANTIBODY / CLONE RESULT CK8 (03zngcQ20) positive CK5-6 (D5 AND 1684) negative P40 (BC28) negative CD45 (RP2/18) negative CK7 (OV-TL12/30) negative CK20 (KS20.8) negative CD56 (123C3.D5) positive Chromo (LK2H10) positive Synapto (polyclonal) positive Current therapy: 1) Atezolizumab/carbo/etoposide. Interim history: Symptomatically tolerating treatment very well. He had one episode of diarrhea on Cassi and one episode on . He took 1 dose of Imodium on . No further diarrhea until several days later when he ate some hot pepper cheese. No diarrhea since then. He doesn't have any abdominal pain, bloating or distention. He says his appetite is doing very well. No signs of GI bleeding. He still short of breath with exertion and sometimes at rest. He hasn't had any increasing oxygen requirements. There's been no change in terms of the character and frequency of his chronic cough. No hemoptysis. He did require a 2 unit red blood cell transfusion 1 week after the most recent cycle. The dose of etoposide was reduced for that cycle secondary to severe neutropenia with cycle 1. PMH, medications and allergies personally reviewed by me today. Any changes documented in appropriate section. ROS: Constitutional: Denies night sweats. Neuro: Denies WEBBER, vertigo, dizziness. HEENT: No recent change in voice, vision or hearing. Resp: See above. CVS: Denies exertional chest pain, PND, orthopnea and LE edema. GI: Denies dysgeusia. Denies symptoms of stomatitis. Denies dysphagia and odynophagia. Denies reflux, n/v. : Denies dysuria or gross hematuria. Endo: Denies hot flashes. Denies polyuria and polydipsia. Denies heat and cold intolerance. Derm: Denies rash. Denies jaundice and diffuse pruritis. Heme: Denies unusual bleeding and unexplained bruising. Psych: Normal mood. PHYSICAL EXAM: Vitals: Blood pressure 142/64, pulse 91, temperature 37.1 ?C (98.8 ?F), temperature source Temporal Artery, weight 70.5 kg (155 lb 8 oz). Well-appearing and in no acute distress. EYES: Sclerae are anicteric bilaterally. ENT: Oral mucosa is unremarkable. There is no sign of thrush or mucositis. NECK: Supple. LYMPHATIC: There is no palpable cervical, supraclavicular adenopathy. RESPIRATORY: Markedly diminished in short of breath sounds in all booker. No wheezes or rhonchi appreciated. CARDIOVASCULAR: Rhythm is regular. Normal intensity S1/S2. ABDOMEN: The abdomen is nondistended. No tenderness. Extremities: Trace edema bilaterally. ASSESSMENT/PLAN: (C34.12) Primary cancer of left upper lobe of lung (HCC) (primary encounter diagnosis) Assessment: -In summary the patient is a 67-year-old male who has advanced oxygen-dependent COPD who was incidentally found to have a 1.3 cm squamous, non-small cell lung cancer when undergoing evaluation for traumatic rib fractures. PDL1 expression was 0. -PET scan suggested small metastasis in the right iliac bone. Biopsy demonstrated small cell lung cancer. -Previously personally reviewed with pathologist--The morphology and immunohistochemistry from the right iliac biopsy site were diagnostic of small cell lung cancer. -Tolerating chemotherapy very well, but has now required to dose delay secondary to neutropenia. The second cycle was dose reduced. -He will be a candidate for growth factor when he receives cycle 3. Plan: -Okay for cycle #2 Thursday with dose reduction etoposide secondary to severe neutropenia and anemia. -Plan to re-evaluate with CT lung after 2 cycles and PET after 4 cycles. -Opinion SBRT to ARPIT as well as PCI after cycle #4. -Atezolizumab after 4 cycles if CR on small cell component. 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 However he said his breathing didn't feel significantly improved after receiving transfusion. Plan: -Continue to monitor. -Lasix with RBC transfusions. (I42.9) Cardiomyopathy, unspecified type (HCC) Assessment: -He is tolerating warfarin well with no unusual bleeding or unexplained bruising. -Blood pressure under fairly good control. -He sometimes requires an extra 20 mg of Lasix on an as-needed basis. Plan: -Continue current medications and regular follow-up with cardiology as he has been doing. Ben Murcia DO COMP METABOLIC PANEL Collected: 08/30/2018 Status: F Source: [place] 1:40 PM [facility] REPOSITORY TYPE CODE TESTS RESULT OUT OF REFERENCE UNITS RANGE LAB TP 6.3-8.0 g/dL Protein, Total 7.0 LAB ALB 3.9-4.9 g/dL Albumin 3.9 LAB CA 8.5-10.2 mg/dL Calcium, Low Total 8.1 LAB TBIL 0.2-1.3 mg/dL Bilirubin, Total 0.4 LAB ALKP 38-113 U/L Alkaline Phosphatase 68 LAB AST 14-40 U/L AST 39 LAB GLU 74-99 mg/dL Glucose High 104 LAB BUN 9-24 mg/dL BUN 13 LAB CRET 0.73-1.22 mg/dL Creatinine Low 0.70 LAB NA 136-144 mmol/L Sodium Low 131 LAB K 3.7-5.1 mmol/L Potassium 3.9 LAB CL 97-105 mmol/L Chloride Low 88 LAB CO2 22-30 mmol/L CO2 High 34 LAB AGAP 9-18 mmol/L Anion Gap 9 LAB ALT 10-54 U/L ALT 36 LAB GFRAA eGFR- >60 Amer. LAB GFRNAA [...] eGFR may not accurately reflect actual GFR. TSH Collected: 08/30/2018 Status: F Source: [place] 1:40 PM [facility] REPOSITORY TYPE CODE TESTS RESULT OUT OF RANGE REFERENCE UNITS LAB TSH 0.400-5.500 uU/mL Low TSH 0.033 Performed By: #### TSH #### [facility] [address] [place] [address] [place] ABS GR + CBC Collected: 08/30/2018 Status: F Source: [place] 1:39 PM [facility] REPOSITORY TYPE CODE TESTS RESULT OUT OF REFERENCE UNITS RANGE LAB WWBC 3.70-11.00 k/uL Low [place] WBC 1.90 LAB WRBC 4.20-6.00 m/uL Low [place] RBC 2.99 LAB WHGB 13.0-17.0 g/dL Low [place] Hemoglobin 9.2 LAB WHCT 39.0-51.0 % Low [place] Hematocrit 27.1 LAB WMCV 80.0-100.0 fL [place] MCV 90.6 LAB WMCH 26.0-34.0 pg [place] MCH 30.8 LAB WMCHC 30.5-36.0 g/dL [place] MCHC 33.9 LAB WRDW 11.5-15.0 % [place] RDW 13.0 LAB WPLT 150-400 k/uL Low [place] Platelet Cnt 138 LAB WMPV 9.0-12.7 fL [place] MPV 9.3 Result Comment: Test performed at: [facility], [address] [place] [address] Rd., [place] [address]. LAB ABGRAN 1.45-7.50 k/uL Low Absol 0.57 Gran Count CNOVSP Observed: 08/30/2018 Status: COMPLETED Source: [place] 1:30 PM [facility] REPOSITORY Visit (SP) Office (HEMFRANC) JIGNESH RAMIRES ([id number]) 1950 M NFR Date Time Provider Department 08/30/18 1:30 PM BEN MURCIA During your visit today, we recorded the following information about you: Temperature Pulse Blood pressure Weight 98.8 degrees 91/minute 142/64 70.5 kg Ben Murcia DO 08/30/2018 3:09 PM Signed Diagnosis: 1) Extensive stage small cell lung cancer. HPI: The patient is a 67-year-old male who has a past medical history significant for hypertension, severe COPD (oxygen requiring) coronary artery disease, cardiomyopathy (nonischemic; EF 15-20% on heart catheterization 08/29/2016. Repeat echo 12/17/2016 demonstrated LVEF 20-35%), hyperlipidemia, peripheral vascular disease who was admitted to [facility] in April following a fall where he [...] CD 56 were both negative as well. PET 06/28/2018: 1. A distinct nodular focus [...] aneurysm formation. Coronary arterial calcification is observed. Wewy-S-Ooeg-MediPort placement is noted. ABDOMEN AND PELVIS: Atherosclerotic [...] et al, Clinical Nuclear Medicine 29:93, 2004). Underwent CT-guided biopsy of the right iliac bone lesion on 07/06/2018. 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 See comment. ANTIBODY / CLONE RESULT CK8 (76frdyL50) positive CK5-6 (D5 AND 1684) negative P40 (BC28) negative CD45 (RP2/18) negative CK7 (OV-TL12/30) negative CK20 (KS20.8) negative CD56 (123C3.D5) positive Chromo (LK2H10) positive Synapto (polyclonal) positive Current therapy: 1) Atezolizumab/carbo/etoposide. Interim history: Symptomatically tolerating treatment very well. He had one episode of diarrhea on Cassi and one episode on Day. He took 1 dose of Imodium on . No further diarrhea until several days later when he ate some hot pepper cheese. No diarrhea since then. He doesn't have any abdominal pain, bloating or distention. He says his appetite is doing very well. No signs of GI bleeding. He still short of breath with exertion and sometimes at rest. He hasn't had any increasing oxygen requirements. There's been no change in terms of the character and frequency of his chronic cough. No hemoptysis. He did require a 2 unit red blood cell transfusion 1 week after the most recent cycle. The dose of etoposide was reduced for that cycle secondary to severe neutropenia with cycle 1. PMH, medications and allergies personally reviewed by me today. Any changes documented in appropriate section. ROS: Constitutional: Denies night sweats. Neuro: Denies WEBBER, vertigo, dizziness. HEENT: No recent change in voice, vision or hearing. Resp: See above. CVS: Denies exertional chest pain, PND, orthopnea and LE edema. GI: Denies dysgeusia. Denies symptoms of stomatitis. Denies dysphagia and odynophagia. Denies reflux, n/v. : Denies dysuria or gross hematuria. Endo: Denies hot flashes. Denies polyuria and polydipsia. Denies heat and cold intolerance. Derm: Denies rash. Denies jaundice and diffuse pruritis. Heme: Denies unusual bleeding and unexplained bruising. Psych: Normal mood. PHYSICAL EXAM: Vitals: Blood pressure 142/64, pulse 91, temperature 37.1 ?C (98.8 ?F), temperature source Temporal Artery, weight 70.5 kg (155 lb 8 oz). Well-appearing and in no acute distress. EYES: Sclerae are anicteric bilaterally. ENT: Oral mucosa is unremarkable. There is no sign of thrush or mucositis. NECK: Supple. LYMPHATIC: There is no palpable cervical, supraclavicular adenopathy. RESPIRATORY: Markedly diminished in short of breath sounds in all booker. No wheezes or rhonchi appreciated. CARDIOVASCULAR: Rhythm is regular. Normal intensity S1/S2. ABDOMEN: The abdomen is nondistended. No tenderness. Extremities: Trace edema bilaterally. ASSESSMENT/PLAN: (C34.12) Primary cancer of left upper lobe of lung (HCC) (primary encounter diagnosis) Assessment: -In summary the patient is a 67-year-old male who has advanced oxygen-dependent COPD who was incidentally found to have a 1.3 cm squamous, non-small cell lung cancer when undergoing evaluation for traumatic rib fractures. PDL1 expression was 0. -PET scan suggested small metastasis in the right iliac bone. Biopsy demonstrated small cell lung cancer. -Previously personally reviewed with pathologist--The morphology and immunohistochemistry from the right iliac biopsy site were diagnostic of small cell lung cancer. -Tolerating chemotherapy very well, but has now required to dose delay secondary to neutropenia. The second cycle was dose reduced. -He will be a candidate for growth factor when he receives cycle 3. Plan: -Okay for cycle #2 Thursday with dose reduction etoposide secondary to severe neutropenia and anemia. -Plan to re-evaluate with CT lung after 2 cycles and PET after 4 cycles. -Opinion SBRT to ARPIT as well as PCI after cycle #4. -Atezolizumab after 4 cycles if CR on small cell component. 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 However he said his breathing didn't feel significantly improved after receiving transfusion. Plan: -Continue to monitor. -Lasix with RBC transfusions. (I42.9) Cardiomyopathy, unspecified type (HCC) Assessment: -He is tolerating warfarin well with no unusual bleeding or unexplained bruising. -Blood pressure under fairly good control. -He sometimes requires an extra 20 mg of Lasix on an as-needed basis. Plan: -Continue current medications and regular follow-up with cardiology as he has been doing. Ben Murcia DO Referring Provider: BEN MURCIA [[id number]] Allergies As of Date: 08/30/2018 (No Known Allergies) Date Reviewed: 08/30/2018 Reviewed by: Yareli Allred - Fully Assessed Reason for Visit: Established Patient [[id number]] Primary Visit Diagnosis:Primary cancer of left upper lobe of lung (HCC) [C34.12] Other Visit Diagnoses:Small cell lung cancer (HCC) [C34.90] Bone metastases (HCC) [C79.51] Anemia due to antineoplastic chemotherapy [D64.81, T45.1X5A] Cardiomyopathy, unspecified type (HCC) [I42.9] Follow-up and Disposition History Recorded Prescriptions as of 08/30/2018 Sig: MULTIVITAMIN TABLET Take 1 tablet by mouth once d* POTASSIUM CHLORIDE ER 20 MEQ * Take 1 tablet by mouth once d* FUROSEMIDE 40 MG TABLET Take 2 tablets by mouth once * ONDANSETRON HCL 8 [...] once * FLUTICASONE 50 MCG/ACTUATION * Use 2 Sprays in each nostril * ATORVASTATIN 40 MG TABLET Take 40 mg [...] mouth once d* Patient taking differently: Take 81 mg by mouth every oth* COMPOUNDED PRESCRIPTION 2L of O2 at night. Length of* Patient taking differently: 3L of O2 Length of need 99 mo* COMPOUNDED PRESCRIPTION Please enroll in pulmonary re* Medication notes this encounter FUROSEMIDE 40 MG TABLET >> Yareli Allred MA 08/30/2018 1:46 PM >> YARELI ALLRED MA Aug 30, 2018 1:46 PM Taking one tablet twice daily. 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 *INVALID FOR* Gastroesophageal reflux disease [K21.9] INVALID FOR* Heavy alcohol use [Z78.9] INVALID FOR* Right rib fracture [S22.31XA] INVALID FOR* Acute respiratory failure (HCC) [J96.00] INVALID FOR*06/21/2018 Coronary arteriosclerosis in southern ute artery [I25*INVALID FOR* Chronic obstructive pulmonary disease [...] [C79.51] INVALID FOR* Hyponatremia [E87.1] INVALID FOR* Anemia due to antineoplastic chemotherapy [D64.*INVALID FOR* Encounter Status:Closed by BEN MURCIA DO on 08/30/18 CARDIOLOGY VISIT Observed: 08/27/2018 Status: F Source: [place] REPORT 12:08 PM [facility] REPOSITORY [facility] [address] [place] [address] OFFICE VISIT Date of Service: 08/27/18 MR#: [id number] Acct: [id number] Name: JIGNESH RAMIRES Rep #: [id number] : 1950 Provider: Case Florian MD Age/Sex: 67/M Location: [facility] Status: Signed HPI HPI Chief Complaint: Lung cancer, new diagnosis, routine f/u Details: Referring physician: Dr. Maurer Mr. Ramires is a very pleasant 67-year-old nondiabetic gentleman, with COPD, hypertension, hypercholesterolemia, who presented with new onset heart failure on 08/29/16 to [facility]. At that time echocardiogram was performed which [...] has been doing fairly well, exercising at [email or web address] 2 days a week, and pulmonary rehab [...] with an RVSP of around 42 mmHg. Pt recently had a left rib fracture and CT found a lung nodule. Pt dxd with squamous non small cell lung cancer with mets to left pelvic bone. He has undergone 2/4 cycles of chemotherapy, reportedly with carboplatinum per his . He denies any worsening SOB/JERONIMO, and is on chronic o2 therapy. Denies any edema. In our office his blood pressure is 100/40, and pulse is 88 and regular. His [...] 18 and HDL of 145. Intake Vital Signs08/27/18 Height 5 ft 5 in 08/27/18 Weight: 155 lb 08/27/18 Body Mass Index (BMI) 25.7 08/27/18 Blood Pressure 100/40 L Intake Visit Reasons: PER [facility]G FROM [facility] Jack Spinner Required: No Is patient in pain?: No Allergies No Known Allergies Allergy (Verified 08/20/18 14:17) Medications Hydroxychloroquine [Plaquenil] 200 mg PO BIDCM 08/27/16 [History Confirmed 08/20/18] Multivitamin [Multiple Vitamins] 1 ea PO DAILY 08/27/16 [History Confirmed 08/20/18] Omeprazole Magnesium 40 mg PO DAILY 08/27/16 [History Confirmed 08/20/18] carvedilol 6.25 mg tablet 6.25 mg PO BID 10/15/17 [History Confirmed 08/20/18] cholecalciferol (vitamin D3) 2,000 unit capsule 1,000 unit PO BID cap 10/15/17 [History Confirmed 08/20/18] fluticasone 50 mcg/actuation nasal spray,suspension 2 spray INTRANASAL BID PRN PRN g 10/15/17 [History Confirmed 08/20/18] levothyroxine 25 mcg capsule 25 mcg PO DAILY cap 10/15/17 [History Confirmed 08/20/18] albuterol sulfate 2.5 mg/3 mL (0.083 %) solution for nebulization 2.5 mg INHALATION Q6HWA.RT #180 vial 03/03/18 [Rx Confirmed 08/20/18] albuterol sulfate HFA 90 mcg/actuation aerosol inhaler 2 puff INHALATION Q4H PRN PRN #18 g 03/30/18 [Rx Confirmed 08/20/18] Albuterol IH (ProAir) [Proair Hfa] 1 puff INHALATION Q4H PRN PRN 06/10/18 [History Confirmed 08/20/18] Budesonide/Formoterol 160/4.5 [Symbicort 160/4.5 Mcg Inhaler (SP)] 2 puff INHALATION BID 06/10/18 [History Confirmed 08/20/18] Tiotropium Redgranite [Spiriva] 2 puff IH DAILY 06/10/18 [History Confirmed 08/20/18] losartan 50 mg tablet 25 mg PO DAILY tab 06/16/18 [History Confirmed 08/20/18] warfarin 5 mg tablet 5 mg PO .COMPLEX #60 tab 06/24/18 [Rx Confirmed 08/20/18] atorvastatin 40 mg tablet 40 mg PO QHS #90 tab 07/27/18 [Rx Confirmed 08/20/18] potassium chloride ER 20 mEq tablet,extended release 20 meq PO DAILY #30 tab 07/29/18 [Rx Confirmed 08/20/18] furosemide 40 mg tablet 40 mg PO .COMPLEX tab 08/11/18 [History Confirmed 08/20/18] PFSH Medical History Left ventricular thrombus (Acute) Nonischemic cardiomyopathy (Chronic) Severe left ventricular systolic dysfunction (Chronic) 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) PVD (peripheral vascular disease) (Chronic) Stage 3 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) PND (paroxysmal nocturnal dyspnea) (Chronic) Hyperlipidemia (Chronic) SOB (shortness of breath) (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 Murcia.); negative for fatigue, weakness, body ache, fever(s), headache(s), chills, frequent falls, night sweats, daytime sleepiness, difficulty sleeping, excessive sweating, weight gain, weight loss, increased appetite, poor appetite or anorexia Eyes Eyes: Negative for blind spots, loss of peripheral vision, transient loss of vision, blurry vision, change in vision, double vision, floaters, tunnel vision or other ENT ENT: Negative for dizziness, hearing loss, tinnitus, Nosebleed/epistaxis, balance problems, post nasal drip, lip swelling, tongue swelling, bleeding gums, hoarseness, neck pain, dry mouth, other or headache(s) Cardio Chest Pain: No Palpitations: No Edema: Bilateral (Mild lower leg pitting today) Muscle aches with walking: None Resp Respiratory: Positive for SOB with activity (On oxygen continuously) and Cough (occasional); negative for SOB at rest, SOB orthopnea\SOB [...] pain Skin Skin: Negative redness, non-healing lesions, rash, unusual bruising, skin ulcer, wounds, jaundice or other Neuro Neuro: Negative for blurry vision, double vision, dizziness, lightheadedness, near syncope, syncope, orthostatic symptoms, confusion, memory loss, restless legs, vertigo, seizures, lack of coordination, other, weakness, headache(s) or frequent falls Yash Hematologic/Lymphatic: Negative for easy bleeding, easy bruising, enlarged lymph nodes or other Endo Endo: Negative for cold intolerance, heat intolerance, flushing, increased thirst/drinking, increased hunger, hair loss, hair growth, other, fatigue or excessive sweating Psych Psych: Negative for anxiety, depression, thoughts [...] 08/29/2016; 20-35% per echo 12/17/2016 Plan 1. Non ischemic CMP: Pt now dxd with metastatic lung cancer and undergoing possible carboplatinum based chemo therapy. Will repeat echo to assess current function of LV so as to document current LV Function after 2 rounds of chemo. Rec. cont. chronic o2 therapy, coreg, lasix as outlined for chemo tx, and losartan. No need for repeat cath or stress testing at this time. 2. RTO in 6 months. This note was generated using a voice recognition system and there may be incorrect words, spelling or punctuation that were not noted when reviewing the office note prior to saving. Plan Detail Other Orders Orders: Follow Up +6M (Florian) Coding Level of Care Code Off vis,est,level 3 Diagnoses Nonischemic cardiomyopathy I42.8 Coding Level of Care Code Off vis,est,level 3 Diagnoses Nonischemic cardiomyopathy I42.8 Supplemental Info Supplemental Information Labs LDL Cholesterol 18 mg/dL (0-130) 04/06/18 HDL Cholesterol 145 mg/dL (40-) 04/06/18 Triglycerides 86 mg/dL (-199) 04/06/18 VLDL Cholesterol 17 mg/dL (5-40) 04/06/18 Diagnostics Electrocardiogram 05/13/18 Echocardiogram 12/16/17 Pacemaker Check 07/27/18 Cardiac Catheterization 08/29/16 Chest X-Ray 08/02/18 Pulmonary Pulmonary Function Test 11/17/17 Pulmonary Exercise Test 04/16/17 08/27/18 1208 <Electronically signed by Case Florian MD> Date Case Florian MD Cosigner Signature: Date (if applicable) CC: Jose Maurer III, MD CT CHEST W IVCON Observed: 08/26/2018 Status: F Source: [place] 10:18 AM [facility] REPOSITORY * * *Final Report* * * DATE OF EXAM: Aug 26 2018 10:18AM [facility] 0539 - CT CHEST W IVCON / PROCEDURE REASON: Malignant neoplasm of unspecified part of unspecified bronchus or lung (HCC) * * * * Physician Interpretation * * * * EXAMINATION: CHEST CT WITH CONTRAST CLINICAL HISTORY: Malignant neoplasm of unspecified part of unspecified bronchus or lung (HCC) Technique: Spiral CT acquisition of the chest from the thoracic inlet to the upper abdomen following IV contrast. MQ: [id number]_5 Contrast: 50 mL Omnipaque [address] Dose-Length Product: 352 mGy*cm CT Dose Reduction Employed: Automated exposure control(AEC) and iterative recon Comparison: 06/28/[address] RESULT: Limitations: None. Lines, tubes, and devices: None. Lung parenchyma and pleura: Lobulated posterior LEFT upper lobe mass not significantly changed from previous CT. Maximal dimensions 1.2 x 1.0 cm (4:59). Posterior lingular atelectasis or fibrosis bronchial wall thickening and borderline dilatation. Associated anterior displacement major fissure consistent with volume loss. Mild dilatation proximal RIGHT middle lobe bronchi. There are a few bibasilar linear densities. Thoracic inlet, heart, and mediastinum: No lymphadenopathy in the axillary, mediastinal, or hilar regions. The thoracic aorta and main pulmonary artery are normal in caliber. The cardiac chambers are normal in size. Coronary artery calcification No pericardial effusion or thickening. Bones and soft tissues: No destructive bone lesion. Stable findings of remote bilateral rib fractures. In addition there is recent fracture posterior LEFT ninth rib just lateral to a remote fracture. This recent fracture was not evident on prior CT possibly due to technical differences. Chest wall is unremarkable. Upper abdomen: No abnormality in the imaged upper abdomen. IMPRESSION: Stable appearance of LEFT upper lobe mass. Lingular atelectasis or fibrosis with probable mild bronchiectasis. There is also mild bronchiectasis in RIGHT middle lobe. Bibasilar linear densities consistent with atelectasis or fibrosis. Recent LEFT ninth rib fracture. There are also bilateral remote rib fractures. There is coronary artery calcification consistent with coronary artery disease. Newspaper Editor Managing: PSCB Transcribe Date/Time: Aug 27 2018 8:36A Dictated by : DONNA KING MD This examination was interpreted and the report reviewed and electronically signed by: DONNA KING MD on Aug 27 2018 8:46AM EST [id number] PROGRESS Observed: 08/26/2018 Status: COMPLETED Source: [place] 10:05 AM [facility] REPOSITORY O ID: [id number] Author: Gardenia Phan Ct Service: (none) Author Type: (none) Type: Progress Notes Filed: 08/26/2018 10:08 AM Note Text: Radiology Service Progress Note PATIENT NAME: Jignesh Ramires DATE OF SERVICE: August 26, 2018 TIME: 10:05 AM PATIENT IDENTITY VERIFICATION COMPLETED USING TWO (2) METHODS: Patient confirmed name verbally and Date of . PATIENT GENDER DATA: Male PATIENT RELEVANT IMPLANT DATA REVIEWED: Not Applicable CONTRAST INDUCED NEPHROPATHY RISK FACTORS: Patient age > 60 years CREATININE: Creatinine Date Value Ref Range Status 08/18/2018 0.73 0.6 - 1.3 MG/DL Final 08/09/2018 0.68 (L) 0.73 - 1.22 mg/dL Final 07/22/2018 0.82 0.6 - 1.3 MG/DL Final 07/20/2018 0.60 (L) 0.73 - 1.22 mg/dL Final 07/13/2018 0.76 0.73 - 1.22 mg/dL Final eGFR-All Other Races Date Value Ref Range Status 08/09/2018 >60 . Final Comment: eGFR (Estimated GFR) Units of measure: [...] eGFR may not accurately reflect actual GFR. eGFR- Date Value Ref Range Status 08/09/2018 >60 Final P.O.C.T. RESULTS: POC done: Yes, See Lab Tab August 26, 2018 RADIOLOGIST NOTIFIED?: No ALLERGIES: Reviewed and unchanged CONTRAST ALLERGY: NO. PERIPHERAL IV ACCESS: Ambulatory: IV type: A peripheral IV was started in the Left antecubital site with a Angio cath: 22 gauge., Site assessment: Clean,Dry and Intact, Site disposition Discontinued RADIOLOGY DEPARTMENT: CT; Exam(s) Completed: Chest SIGNED BY: Gardenia Phan Ct August 26, 2018 10:05 AM TYPE AND SCREEN Collected: 08/19/2018 Status: F Source: [place] 12:00 PM [facility] REPOSITORY Order Comment: PRETRANSFUSION HGB = 7.3 HCT = 22.1 PERFORMED AT [facility] CMV NEG?* N Give When? 08/20/17 @0930 Irradiated? N Leukodepleted? Y Reason for Type AND Screen/Red Cells: ANEMIA TYPE CODE TESTS RESULT OUT OF RANGE REFERENCE UNITS LAB B10.0800 O Normal BLOOD TYPE GEL NEGATIVE LAB B100.4000 Normal Antibody NEGATIVE Screen Performed By: #### B101.7450 #### [facility] [address] [place], [address] RC Collected: 08/19/2018 Status: F Source: [place] 12:00 PM [facility] REPOSITORY TYPE CODE TESTS RESULT OUT OF REFERENCE UNITS RANGE LAB U100.0000 [id number] TRANSFUSED PRODUCT: T AND S with Crossmatch, Red Cells COUNT: 2 Performed By: #### U100.0000 #### Non-[facility] - refer to report for specific site [place] ABS GR + CBC Collected: 08/19/2018 Status: F Source: [place] 8:04 AM [facility] REPOSITORY TYPE CODE TESTS RESULT OUT OF REFERENCE UNITS RANGE LAB WWBC 3.70-11.00 k/uL Low [place] WBC 2.33 LAB WRBC 4.20-6.00 m/uL Low [place] RBC 2.37 LAB WHGB 13.0-17.0 g/dL Low [place] Hemoglobin 7.3 LAB WHCT 39.0-51.0 % Low [place] Hematocrit 22.1 LAB WMCV 80.0-100.0 fL [place] MCV 93.2 LAB WMCH 26.0-34.0 pg [place] MCH 30.8 LAB WMCHC 30.5-36.0 g/dL [place] MCHC 33.0 LAB WRDW 11.5-15.0 % [place] RDW 12.8 LAB WPLT 150-400 k/uL [place] Platelet Cnt 184 LAB WMPV 9.0-12.7 fL Low [place] MPV 8.2 Result Comment: Test performed at: [facility], [address] [place] [address] , [place] [address]. LAB ABGRAN 1.45-7.50 k/uL Absol Gran 1.92 Count BASIC METABOLIC Collected: 08/18/2018 Status: F Source: [place] PROFILE (BMP) 6:08 AM [facility] REPOSITORY Order Comment: Comments: Do along with PT/INR Comments: Do along with PT/INR TYPE CODE TESTS RESULT OUT OF RANGE REFERENCE UNITS LAB L501.0100 74-106 mg/dL Normal GLU 102 Result Comment: Fasting Glucose result from 100 to 125 mg/dL suggests IMPAIRED HOMEOSTASIS per A.D.A. criteria. Please note revised GLUCOSE reference range effective 2017. LAB L501.1000 7-18 mg/dL Normal BUN 16 LAB L501.1100 0.70-1.30 mg/dL Normal CREAT,SERUM 0.73 Result Comment: The validity of the calculated GFR AND GFRAA in patients over 70 years has not been determined. Clinical correlation is essential. LAB L501.1110 >60 mL/min Normal EST GFR 114 Result Comment: Non- GFR Calc LAB L501.1115 >60 mL/min Normal EST GFR - AA 138 Result Comment: GFR Calc LAB L501.1300 10-20 RATIO High BUN/CRE 21.9 LAB L501.2200 8.5-10.1 mg/dL Low CA 8.2 LAB L501.5300 136-145 mmol/L Low NA 129 LAB L501.5600 3.5-5.1 mmol/L K Normal 4.0 LAB L501.5900 98-107 mmol/L Low CL 88 LAB L501.6100 21.0-32.0 mmol/L Normal CO2 32.0 LAB L501.6200 5-15 Normal GAP 9 Performed By: #### L500.2500 #### [facility] [address] [facility] [place], [address] PROTHROMBIN TIME W/INR Collected: 08/18/2018 Status: F Source: [place] 6:08 AM [facility] REPOSITORY Order Comment: Comments: Do along with BMP Comments: Do along with PT/INR TYPE CODE TESTS RESULT OUT OF RANGE REFERENCE UNITS LAB L300.4150 11.7-14.9 SECONDS High PROTIME 21.1 LAB L300.4200 Normal INR 1.8 Performed By: #### L300.3900 #### [facility] [address]. [place], [place], [address] [place] ABS GR + CBC Collected: 08/13/2018 Status: F Source: [place] 10:14 AM [facility] REPOSITORY TYPE CODE TESTS RESULT OUT OF REFERENCE UNITS RANGE LAB WWBC 3.70-11.00 k/uL [place] WBC 5.09 LAB WRBC 4.20-6.00 m/uL Low [place] RBC 2.52 LAB WHGB 13.0-17.0 g/dL Low [place] Hemoglobin 7.9 LAB WHCT 39.0-51.0 % Low [place] Hematocrit 24.6 LAB WMCV 80.0-100.0 fL [place] MCV 97.6 LAB WMCH 26.0-34.0 pg [place] MCH 31.3 LAB WMCHC 30.5-36.0 g/dL [place] MCHC 32.1 LAB WRDW 11.5-15.0 % [place] RDW 12.9 LAB WPLT 150-400 k/uL [place] Platelet Cnt 283 LAB WMPV 9.0-12.7 fL Low [place] MPV 8.0 Result Comment: Test performed at: [facility], [address] [place] [address]. LAB ABGRAN 1.45-7.50 k/uL Absol Gran 3.45 Count CNPN Observed: 08/11/2018 Status: COMPLETED Source: [place] 12:00 AM [facility] REPOSITORY Telephone (DEB) JIGNESH RAMIRES ([id number]) 1950 M NFR Date Time Provider Department 08/11/18 BEN MURCIA During your visit today, we recorded the following information about you: Kaylin Isidro RN, RN 08/11/2018 11:03 AM Signed Pt has lower extremities edema in feet that is stable but artist's representative instructed him to increase his Lasix on day of treatment to 80 mg in am and 40 mg in afternoon. His potassium level is 3.4 on Thursday and he is taking KCL 20 meq daily po. Do you want him to increase his potassium pill? Ben Murcia DO 08/11/2018 11:06 AM Signed Yes. Increase to BID. DO Shona Andrews LPN, MONIE 08/11/2018 11:18 AM Signed Pt. Notified. Voiced understanding. MONIE Headley RN, RN 08/11/2018 11:42 AM Signed One more question- Calcium is low and pt only on Vitamin D supplement. Should he also take a calcium supplement? Allergies As of Date: 08/11/2018 (No Known Allergies) Date Reviewed: 08/11/2018 Reviewed by: Kaylin Armendariz) JANIE Isidro - Fully Assessed Reason for Visit: Medication Question [6768] Results [95] Reason For Visit History Recorded Prescriptions as of 08/11/2018 Sig: ACLIDINIUM BROMIDE 400 MCG/AC* Inhale 1 Inhalation as instru* Patient not taking: Reported on 07/12/2018 ALBUTEROL SULFATE CONCENTRATE* Use 0.5 mL via [...] 1,000 Units twice daily. Taki* COMPOUNDED PRESCRIPTION Please enroll in pulmonary re* COMPOUNDED PRESCRIPTION 2L of O2 at night. Length of* Patient taking differently: 3L of O2 Length of need 99 mo* COMPOUNDED PRESCRIPTION 1 Units four times daily as n* COMPOUNDED PRESCRIPTION Nebulizer, Mask, AND O2 Tubing.* COMPOUNDED PRESCRIPTION Please perform nocturnal oxim* COMPOUNDED PRESCRIPTION Please provide disability monika* COMPOUNDED PRESCRIPTION Please perform nocturnal puls* COMPOUNDED PRESCRIPTION Please perform nocturnal puls* FLUTICASONE 50 MCG/ACTUATION * Use 1 Hudson in each nostril o* FUROSEMIDE 40 MG TABLET Take 2 tablets by mouth once * HYDROXYCHLOROQUINE 200 MG TAB* Take 1 tablet by mouth twice * LEVOFLOXACIN 500 MG TABLET Take by mouth for 5 days. Patient not taking: Reported on 08/09/2018 LEVOTHYROXINE 25 MCG TABLET Take 1 tablet by mouth once d* LOSARTAN 50 MG TABLET Take 25 mg by mouth once wilian* OMEPRAZOLE 40 MG CAPSULE,MARÍA* Take 1 capsule by mouth once * ONDANSETRON HCL 8 MG TABLET Take 1 tablet by mouth every * Patient not taking: Reported on 08/09/2018 OXYGEN (HOME THERAPY) by Nasal Cannula route as dir* POTASSIUM CHLORIDE ER 20 MEQ * Take 1 tablet by mouth once d* WARFARIN 5 MG TABLET Take 5 mg by mouth daily as d* Problem List As Of Date 08/11/2018 Noted Resolved DYSMETABOLIC SYNDROME X [E88.81] INVALID [...] hypertension (HCC)*INVALID FOR* Anemia [D64.9] INVALID FOR* nursing home current use of anticoagulant therapy *INVALID FOR* Gastroesophageal reflux disease [K21.9] INVALID FOR* Heavy alcohol use [Z78.9] INVALID FOR* Right rib fracture [S22.31XA] INVALID FOR* Acute respiratory failure (HCC) [J96.00] INVALID FOR*06/21/2018 Coronary arteriosclerosis in southern ute artery [I25*INVALID FOR* Chronic obstructive pulmonary disease [...] [C79.51] INVALID FOR* Hyponatremia [E87.1] INVALID FOR* Anemia due to antineoplastic chemotherapy [D64.*INVALID FOR* Encounter Status:Closed by SHONA RAMOS on 08/11/18 DORA Observed: 08/09/2018 Status: COMPLETED Source: [place] 8:30 AM [facility] REPOSITORY Visit (SP) Office (HEMAWS) JIGNESH RAMIRES ([id number]) 1950 M NFR Date Time Provider Department 08/09/18 8:30 AM BEN MURCIA During your visit today, we recorded the following information about you: Temperature Pulse Blood pressure Weight 98 degrees 95/minute 117/55 72.6 kg Ben Murcia DO 08/09/2018 8:47 AM Signed Diagnosis: 1) Extensive stage small cell lung cancer. HPI: The patient is a 67-year-old male who has a past medical history significant for hypertension, severe COPD (oxygen requiring) coronary artery disease, hyperlipidemia, peripheral vascular disease who was admitted to [facility] in April following a fall where he [...] CD 56 were both negative as well. PET 06/28/2018: 1. A distinct nodular focus [...] aneurysm formation. Coronary arterial calcification is observed. Byim-Z-Vidj-MediPort placement is noted. ABDOMEN AND PELVIS: Atherosclerotic [...] yan al, Journal of Clinical Oncology 16:2142, 1997). 6. Linear increased fluorine-labeled glucose metabolism noted [...] See comment. ANTIBODY / CLONE RESULT CK8 (67mnliY02) positive CK5-6 (D5 AND 1684) negative P40 (BC28) negative CD45 (RP2/18) negative CK7 (OV-TL12/30) negative CK20 (KS20.8) negative CD56 (123C3.D5) positive Chromo (LK2H10) positive Synapto (polyclonal) positive Current therapy: 1) Atezolizumab/carbo/etoposide. Interim history: Developed severe neutropenia but no neutropenic fever. Was treated with prophylactic Levaquin. Doing well. Had no nausea. Great appetite. No pain. Respiratory status same--minimal cough. No hemoptysis. Back on BiPAP at nighttime. No fever. No change in overall energy level. PMH, medications and allergies personally reviewed by me today. Any changes documented in appropriate section. ROS: Constitutional: Denies night sweats. Neuro: Denies WEBBER, vertigo, dizziness. [...] Normal mood. PHYSICAL EXAM: Vitals: Blood pressure 117/55, pulse 95, temperature 36.7 ?C (98 ?F), weight 72.6 kg (160 lb), SpO2 96 %. Well-appearing and in [...] when undergoing evaluation for traumatic rib fractures. PDL1 expression was 0. -PET scan suggested small metastasis in the right iliac bone. Biopsy demonstrated small cell lung cancer. -I discussed the pathology personally with Dr. Jasso. The morphology and immunohistochemistry from the right iliac biopsy site were diagnostic of small cell lung cancer. -Tolerating chemotherapy very well. Plan: -Okay for cycle #2 Thursday with dose reduction etoposide secondary to severe neutropenia and anemia. -Plan to re-evaluate with CT lung after 2 cycles and PET after 4 cycles. -Atezolizumab after 4 cycles if CR. 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 Plan: -Repeat CBC Thursday. DO Shona Andrews LPN, MONIE 08/09/2018 8:32 AM Signed Est pt, discuss recent lab results, tx Thursday Shona Ramos LPN Referring Provider: BEN MURCIA [[id number]] Allergies As of Date: 08/09/2018 (No Known Allergies) Date Reviewed: 08/09/2018 Reviewed by: Shona Chakraborty (Farm Machinery Engine Mechanic) MONIE [place] - Fully Assessed Reason for Visit: Established Patient [175] Primary Visit Diagnosis:Anemia due to antineoplastic chemotherapy [D64.81, T45.1X5A] Other Visit Diagnosis:Malignant neoplasm of unspecified part of unspecified bronchus or lung (HCC) [C34.90] Order(s):CT CHEST W IVCON [0812464] Order #: [id number] FUTURE iv contrast (will be provided with radiology test)CT Chest W -Inject, intravenously, once for 1 dose.No IV access, insert saline lock prior to the beginning of sedation, infusion, injection of imaging exam. Discontinue saline lock post exam. If Pt. has a central line or IVAD, may access for administration according to line specific nursing protocol. Once exam is complete flush line and de- access according to line specific nursing protocol in the CT contrast administration guidelines link.Disp: 1 EachRfl: 0 Follow-up and Disposition History Recorded Prescriptions as of 08/09/2018 Sig: ALBUTEROL SULFATE CONCENTRATE* Use 0.5 mL [...] 1,000 Units twice daily. Taki* COMPOUNDED PRESCRIPTION Please enroll in pulmonary re* COMPOUNDED PRESCRIPTION 2L of O2 at night. Length of* Patient taking differently: 3L of O2 Length of need 99 mo* COMPOUNDED PRESCRIPTION 1 Units four times daily as n* COMPOUNDED PRESCRIPTION Nebulizer, Mask, AND O2 Tubing.* COMPOUNDED PRESCRIPTION Please perform nocturnal oxim* COMPOUNDED PRESCRIPTION Please provide disability monika* COMPOUNDED PRESCRIPTION Please perform nocturnal puls* COMPOUNDED PRESCRIPTION Please perform nocturnal puls* FLUTICASONE 50 MCG/ACTUATION * Use 1 Hudson in each nostril o* FUROSEMIDE 40 MG TABLET Take 2 tablets by mouth once * HYDROXYCHLOROQUINE 200 MG TAB* Take 1 tablet by mouth twice * LEVOTHYROXINE 25 MCG TABLET Take 1 tablet by mouth once d* LOSARTAN 50 MG TABLET Take 25 mg by mouth once wilian* OMEPRAZOLE 40 MG CAPSULE,MARÍA* Take 1 capsule by mouth once * OXYGEN (HOME THERAPY) by Nasal Cannula route as dir* POTASSIUM CHLORIDE ER 20 MEQ * Take 1 tablet by mouth once d* WARFARIN 5 MG TABLET Take 5 mg by mouth daily as d* ACLIDINIUM BROMIDE 400 MCG/AC* Inhale 1 Inhalation as instru* Patient not taking: Reported on 07/12/2018 IV CONTRAST (RADIOLOGY PROCED* CT Chest W -Inject, intraveno* LEVOFLOXACIN 500 MG TABLET Take by mouth for 5 days. Patient not taking: Reported on 08/09/2018 ONDANSETRON HCL 8 MG TABLET Take 1 tablet by mouth every * Patient not taking: Reported on 08/09/2018 Medication notes this encounter LEVOFLOXACIN 500 MG TABLET >> Shona Ramos LPN, MONIE 08/09/2018 8:27 AM >> SHONA RAMOS Aug 09, 2018 8:27 AM completed Problem List As Of Date 08/09/2018 Noted Resolved DYSMETABOLIC SYNDROME X [E88.81] INVALID [...] hypertension (HCC)*INVALID FOR* Anemia [D64.9] INVALID FOR* nursing home current use of anticoagulant therapy *INVALID FOR* Gastroesophageal reflux disease [K21.9] INVALID FOR* Heavy alcohol use [Z78.9] INVALID FOR* Right rib fracture [S22.31XA] INVALID FOR* Acute respiratory failure (HCC) [J96.00] INVALID FOR*06/21/2018 Coronary arteriosclerosis in southern ute artery [I25*INVALID FOR* Chronic obstructive pulmonary disease [...] [C79.51] INVALID FOR* Hyponatremia [E87.1] INVALID FOR* Anemia due to antineoplastic chemotherapy [D64.*INVALID FOR* Visit Notes: >> Shona Ramos LPN ThuAug 09, 2018 8:29 AM Status: Signed Est pt, discuss recent lab results, tx Thursday Shona Ramos LPN Encounter Status:Closed by BEN MURCIA DO on 08/09/18 PROGRESS Observed: 08/09/2018 Status: COMPLETED Source: [place] 8:18 AM [facility] REPOSITORY [facility] ID: [id number] Author: Ben Murcia Service: (none) Author Type: Physician Type: Progress Notes Filed: 08/09/2018 8:47 AM Note Text: Diagnosis: 1) Extensive stage small cell lung cancer. HPI: The patient is a 67-year-old male who has a past medical history significant for hypertension, severe COPD (oxygen requiring) coronary artery disease, hyperlipidemia, peripheral vascular disease who was admitted to [facility] in April following a fall where he [...] CD 56 were both negative as well. PET 06/28/2018: 1. A distinct nodular focus [...] review of CT of the chest dated 11/12/18. Asymmetric increased glucose metabolism is manifest in [...] aneurysm formation. Coronary arterial calcification is observed. Qukx-Y-Rwsh-MediPort placement is noted. ABDOMEN AND PELVIS: Atherosclerotic [...] See comment. ANTIBODY / CLONE RESULT CK8 (24nuouH59) positive CK5-6 (D5 AND 1684) negative P40 (BC28) negative CD45 (RP2/18) negative CK7 (OV-TL12/30) negative CK20 (KS20.8) negative CD56 (123C3.D5) positive Chromo (LK2H10) positive Synapto (polyclonal) positive Current therapy: 1) Atezolizumab/carbo/etoposide. Interim history: Developed severe neutropenia but no neutropenic fever. Was treated with prophylactic Levaquin. Doing well. Had no nausea. Great appetite. No pain. Respiratory status same--minimal cough. No hemoptysis. Back on BiPAP at nighttime. No fever. No change in overall energy level. PMH, medications and allergies personally reviewed by me today. Any changes documented in appropriate section. ROS: Constitutional: Denies night sweats. Neuro: Denies WEBBER, vertigo, dizziness. [...] Normal mood. PHYSICAL EXAM: Vitals: Blood pressure 117/55, pulse 95, temperature 36.7 ?C (98 ?F), weight 72.6 kg (160 lb), SpO2 96 %. Well-appearing and in [...] when undergoing evaluation for traumatic rib fractures. PDL1 expression was 0. -PET scan suggested small metastasis in the right iliac bone. Biopsy demonstrated small cell lung cancer. -I discussed the pathology personally with Dr. Jasso. The morphology and immunohistochemistry from the right iliac biopsy site were diagnostic of small cell lung cancer. -Tolerating chemotherapy very well. Plan: -Okay for cycle #2 Thursday with dose reduction etoposide secondary to severe neutropenia and anemia. -Plan to re-evaluate with CT lung after 2 cycles and PET after 4 cycles. -Atezolizumab after 4 cycles if CR. 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 Plan: -Repeat CBC Thursday. Ben Murcia DO TSH Collected: 08/09/2018 Status: F Source: [place] 7:48 AM [facility] REPOSITORY TYPE CODE TESTS RESULT OUT OF RANGE REFERENCE UNITS LAB TSH 0.400-5.500 uU/mL TSH 0.415 Performed By: #### TSH #### [facility] [address] [place], [place] [address] [place] ABS GR + CBC Collected: 08/09/2018 Status: F Source: [place] 7:47 AM [facility] REPOSITORY TYPE CODE TESTS RESULT OUT OF REFERENCE UNITS RANGE LAB WWBC 3.70-11.00 k/uL Low [place] WBC 3.02 LAB WRBC 4.20-6.00 m/uL Low [place] RBC 2.78 LAB WHGB 13.0-17.0 g/dL Low [place] Hemoglobin 8.6 LAB WHCT 39.0-51.0 % Low [place] Hematocrit 26.2 LAB WMCV 80.0-100.0 fL [place] MCV 94.2 LAB WMCH 26.0-34.0 pg [place] MCH 30.9 LAB WMCHC 30.5-36.0 g/dL [place] MCHC 32.8 LAB WRDW 11.5-15.0 % [place] RDW 12.7 LAB WPLT 150-400 k/uL [place] Platelet Cnt 172 LAB WMPV 9.0-12.7 fL Low [place] MPV 8.7 Result Comment: Test performed at: [facility], [address] [place], [place] [address]. LAB ABGRAN 1.45-7.50 k/uL Absol Gran 1.69 Count COMP METABOLIC PANEL Collected: 08/09/2018 Status: F Source: [place] 7:47 AM [facility] REPOSITORY TYPE CODE TESTS RESULT OUT OF REFERENCE UNITS RANGE LAB TP 6.3-8.0 g/dL Protein, Total 6.7 LAB ALB 3.9-4.9 g/dL Albumin Low 3.8 LAB CA 8.5-10.2 mg/dL Calcium, Low Total 7.5 LAB TBIL 0.2-1.3 mg/dL Bilirubin, Total 0.2 LAB ALKP 38-113 U/L Alkaline Phosphatase 59 LAB AST 14-40 U/L AST 26 LAB GLU 74-99 mg/dL Glucose 97 LAB BUN 9-24 mg/dL BUN 11 LAB CRET 0.73-1.22 mg/dL Creatinine Low 0.68 LAB NA 136-144 mmol/L Sodium Low 133 LAB K 3.7-5.1 mmol/L Potassium Low 3.4 LAB CL 97-105 mmol/L Chloride Low 89 LAB CO2 22-30 mmol/L CO2 High 32 LAB AGAP 9-18 mmol/L Anion Gap 12 LAB ALT 10-54 U/L ALT 15 LAB GFRAA eGFR- >60 Amer. LAB GFRNAA . eGFR-All Other Races >60 Result Comment: eGFR (Estimated GFR) Units of measure: mL/min/1.73 meters squared eGFR is derived from the reexpressed MDRD Study equation using the following parameters: serum creatinine, age, gender and race. The creatinine assay has been calibrated to be traceable to IDNY. An eGFR <60 mL/min/1.73m2 for >3 months is consistent with chronic kidney disease. Refer to KDOQI guidelines for clinical interpretation. In patients with unstable renal function, e.g. those with acute kidney injury, the eGFR may not accurately reflect actual GFR. ROC[place] ABS GR + CBC Collected: 08/06/2018 Status: F Source: [place] 7:39 AM [facility] REPOSITORY TYPE CODE TESTS RESULT OUT OF REFERENCE UNITS RANGE LAB WWBC 3.70-11.00 k/uL Low [place] WBC 1.26 LAB WRBC 4.20-6.00 m/uL Low [place] RBC 2.86 LAB WHGB 13.0-17.0 g/dL Low [place] Hemoglobin 9.1 LAB WHCT 39.0-51.0 % Low [place] Hematocrit 26.6 LAB WMCV 80.0-100.0 fL [place] MCV 93.0 LAB WMCH 26.0-34.0 pg [place] MCH 31.8 LAB WMCHC 30.5-36.0 g/dL [place] MCHC 34.2 LAB WRDW 11.5-15.0 % [place] RDW 12.4 LAB WPLT 150-400 k/uL Low [place] Platelet Cnt 77 LAB WMPV 9.0-12.7 fL [place] MPV 9.2 Result Comment: Test performed at: [facility], [address] [place] [address]. LAB ABGRAN 1.45-7.50 k/uL Low Absol 0.21 Gran Count PROTIME W/INR Collected: 08/04/2018 Status: F Source: CLARION FINGERSTICK 6:07 AM [facility] REPOSITORY TYPE CODE TESTS RESULT OUT OF REFERENCE UNITS RANGE LAB L9200.1001 11.9-14.4 SEC High PROTIME ISTAT 22.9 Result Comment: Reference Range 11.9 - 14.4 LAB L9200.2000 Normal INR ISTAT 2.00 Result Comment: Critical Value > 3.5 Performed By: #### L9200.0000 #### [facility] Laboratory Point of Care [address] [place] [address] CHEST PA AND LATERAL Observed: 08/02/2018 Status: F Source: CLARION 2:45 PM [facility] REPOSITORY [facility] Imaging Services [address] [place] [address] Chest PA and Lateral MR#: [id number] Acct: [id number] Name: JIGNESH RAMIRES Rep #: [id number] : 1950 M 67 From: Pool Strong MD PCP: Jose Maurer III, MD Status: REG CLI Study: Chest PA and Lateral Date of Exam: 08/02/18 Exam# [id number] Ordering Dr: Cheryl Schaeffer ROLL FORMING SUPERVISOR-Leonel STUDY: X-RAY CHEST REASON FOR EXAM: Male, [...] CC: Cheryl Schaeffer; Jose Maurer III, MD Newspaper Editor Managing: Signed PROGRESS Observed: 08/02/2018 Status: COMPLETED Source: [place] 2:01 PM [facility] REPOSITORY HNO ID: [id number] Author: Gillian Holm Service: (none) Author Type: Nurse Practitioner Type: Progress Notes Filed: 08/02/2018 2:55 PM Note Text: Chief Complaint Patient presents with: Established Patient HPI: Jignesh Ramires is a 67 year old male who presents here today for rita visit. Per Dr. Murcia's previous note: H/o hypertension, severe COPD (oxygen requiring) coronary artery disease, hyperlipidemia, peripheral vascular disease who was admitted to [facility] in April following a fall where he [...] aneurysm formation. Coronary arterial calcification is observed. Odnr-U-Rsuf-MediPort placement is noted. ABDOMEN AND PELVIS: Atherosclerotic [...] not fulfill quantitative criteria for viable neoplasm. (Elfegoeenmarisol et al, Journal of Clinical Oncology 16:2142, [...] comment. ? ANTIBODY / CLONE RESULT CK8 ([id number]) positive CK5-6 (D5 AND 1684) negative P40 [...] Ref Rng AND Units 07/13/2018 08/02/2018 WBC, [place] 3.70 - 11.00 k/uL 7.00 1.12 (L) RBC, [place] 4.20 - 6.00 m/uL 3.25 (L) 2.81 (L) Hemoglobin, [place] 13.0 - 17.0 g/dL 10.4 (L) 8.9 (L) Hematocrit, [place] 39.0 - 51.0 % 32.8 (L) 26.8 (L) MCV, [place] 80.0 - 100.0 fL 100.9 (H) 95.4 MCH, [place] 26.0 - 34.0 pg 32.0 31.7 MCHC, [place] 30.5 - 36.0 g/dL 31.7 33.2 RDW, [place] 11.5 - 15.0 % 13.3 12.4 Platelet Cnt, [place] 150 - 400 k/uL 264 23 (L) MPV, [place] 9.0 - 12.7 fL 8.9 (L) 9.7 [...] who agrees with treatment plan. Gillian Holm APRN.SEAM CHECKER [place] ABS GR + CBC Collected: 08/02/2018 Status: F Source: [place] 1:37 PM [facility] REPOSITORY TYPE CODE TESTS RESULT OUT OF REFERENCE UNITS RANGE LAB WWBC 3.70-11.00 k/uL Low [place] WBC 1.12 LAB WRBC 4.20-6.00 m/uL Low [place] RBC 2.81 LAB WHGB 13.0-17.0 g/dL Low [place] Hemoglobin 8.9 LAB WHCT 39.0-51.0 % Low [place] Hematocrit 26.8 LAB WMCV 80.0-100.0 fL [place] MCV 95.4 LAB WMCH 26.0-34.0 pg [place] MCH 31.7 LAB WMCHC 30.5-36.0 g/dL [place] MCHC 33.2 LAB WRDW 11.5-15.0 % [place] RDW 12.4 LAB WPLT 150-400 k/uL Low [place] Platelet Cnt 23 LAB WMPV 9.0-12.7 fL [place] MPV 9.7 Result Comment: Test performed at: [facility], [address] [place] [address]. LAB ABGRAN 1.45-7.50 k/uL Low Absol Gran 0.10 Count LAB ABSNUC <0.01 k/uL Absolute nRBC Result checked and verified CNOVSP Observed: 08/02/2018 Status: COMPLETED Source: [place] 1:30 PM [facility] REPOSITORY Visit (SP) Office (DEB) JESSICAJIGNESH ([id number]) 1950 M NFR Date Time Provider Department 08/02/18 1:30 PM GILLIAN HOLM During your visit today, we recorded the following information about you: Temperature Pulse Blood pressure Weight 98.5 degrees 81/minute 141/65 71.9 kg Sirena Jeffry LOMAX 08/02/2018 2:10 PM Signed Est patient. Discuss recent labs. Sirena Holm, TUNNEL ELASTIC OPERATOR ZIGZAG.SEAM CHECKER 08/02/2018 2:55 PM Signed Chief Complaint Patient presents with: Established Patient HPI: Jignesh Ramires is a 67 year old male who presents here today for rita visit. Per Dr. Murcia's previous note: H/o hypertension, severe COPD (oxygen requiring) coronary artery disease, hyperlipidemia, peripheral vascular disease who was admitted to [facility] in April following a fall where he [...] aneurysm formation. Coronary arterial calcification is observed. Rhda-J-Xrgc-MediPort placement is noted. ABDOMEN AND PELVIS: Atherosclerotic [...] comment. ? ANTIBODY / CLONE RESULT CK8 ([id number]) positive CK5-6 (D5 AND 1684) negative P40 [...] Ref Rng AND Units 07/13/2018 08/02/2018 WBC, [place] 3.70 - 11.00 k/uL 7.00 1.12 (L) RBC, [place] 4.20 - 6.00 m/uL 3.25 (L) 2.81 (L) Hemoglobin, [place] 13.0 - 17.0 g/dL 10.4 (L) 8.9 (L) Hematocrit, [place] 39.0 - 51.0 % 32.8 (L) 26.8 (L) MCV, [place] 80.0 - 100.0 fL 100.9 (H) 95.4 MCH, [place] 26.0 - 34.0 pg 32.0 31.7 MCHC, [place] 30.5 - 36.0 g/dL 31.7 33.2 RDW, [place] 11.5 - 15.0 % 13.3 12.4 Platelet Cnt, [place] 150 - 400 k/uL 264 23 (L) MPV, [place] 9.0 - 12.7 fL 8.9 (L) 9.7 [...] who agrees with treatment plan. 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 therapy *INVALID FOR* Gastroesophageal reflux disease [K21.9] INVALID FOR* Heavy alcohol use [Z78.9] INVALID FOR* Right rib fracture [S22.31XA] INVALID FOR* Acute respiratory failure (HCC) [J96.00] INVALID FOR*06/21/2018 Coronary arteriosclerosis in southern ute artery [I25*INVALID FOR* Chronic obstructive pulmonary disease [...] 07/29/2018 Status: F Source: ROCIO 5:58 AM [facility] REPOSITORY TYPE CODE TESTS RESULT OUT OF RANGE REFERENCE UNITS LAB L300.4150 11.7-14.9 SECONDS High PROTIME 21.9 LAB L300.4200 Normal INR 1.9 Performed By: #### L300.3900 #### [facility] [address] [place], [address] BASIC METABOLIC Collected: 07/29/2018 Status: F Source: ROCIO PROFILE (BMP) 5:57 AM [facility] REPOSITORY Order Comment: Comments: Send to Jose [...] GAP 7 Performed By: #### L500.2500 #### [facility] [address] [place], [address] PACEMAKER CHECK Observed: 07/28/2018 Status: F Source: ROCIO 1:47 PM [facility] REPOSITORY [facility] [place] [address] [place] [address] Pacemaker Check Date of Service: 07/27/18823 MR#: [id number] Acct: [id number] Name: JIGNESH RAMIRES Rep #: [id number] : 1950 From: Shanelle August Age/Sex: 67/M Location: [facility] Status: Signed Billing Codes ICD Device Billing: ICD Dev Interrogate (Rmt) 07/27/18824 <Electronically signed by Shanelle August > Date Shanelle August 07/28/18 1347<Electronically signed by Case Florian MD> Cosigner Signature: Date (if applicable) Case Florian MD CC: BASIC METABOLIC Collected: 07/22/2018 Status: F Source: ROCIO PROFILE ([facility]) 6:01 AM [facility] REPOSITORY TYPE CODE TESTS RESULT OUT OF [...] GAP 3 Performed By: #### L500.2500 #### [facility] [address] [place], [address] PROTHROMBIN TIME W/INR Collected: 07/22/2018 Status: F Source: CLARION 6:01 AM [facility] REPOSITORY Order Comment: Comments: STANDING ORDER: pt needs fingerstick, chemo pt Comments: STANDING ORDER TYPE CODE TESTS RESULT OUT OF RANGE REFERENCE UNITS LAB L300.4150 11.7-14.9 SECONDS High PROTIME 17.2 LAB L300.4200 Normal INR 1.4 Performed By: #### L300.3900 #### [facility] [address] [place], [address] BASIC METABOLIC PANL Collected: 07/20/2018 Status: F Source: KENMORE 9:29 AM [facility] REPOSITORY TYPE CODE TESTS RESULT OUT OF [...] GFR. RAFY Observed: 07/20/2018 Status: COMPLETED Source: ERVIN 12:00 AM [facility] REPOSITORY Telephone (MIQ) JIGNESH RAMIRES ([id number]) 1950 M NFR Date Time Provider Department [...] * FLUTICASONE 50 MCG/ACTUATION * Use 1 Hudson in each nostril o* ATORVASTATIN 40 MG [...] hypertension (HCC)*INVALID FOR* Anemia [D64.9] INVALID FOR* nursing home current use of anticoagulant therapy *INVALID FOR* Gastroesophageal reflux disease [K21.9] INVALID FOR* Heavy alcohol use [Z78.9] INVALID FOR* Right rib fracture [S22.31XA] INVALID FOR* Acute respiratory failure (HCC) [J96.00] INVALID FOR*06/21/2018 Coronary arteriosclerosis in southern ute artery [I25*INVALID FOR* Chronic obstructive pulmonary disease [...] 07/20/18 PROGRESS Observed: 07/19/2018 Status: COMPLETED Source: [place] 1:45 PM [facility] REPOSITORY [facility] ID: [id number] Author: Smitha Gannon (Sw) Service: (none) Author Type: Media Consultant Outside Sales Type: Progress Notes Filed: 07/19/2018 1:46 PM [...] copy sent to scanning. F/U APPOINTMENT: DORY MarquezOVSP Observed: 07/19/2018 Status: COMPLETED Source: KENMORE 9:30 AM [facility] REPOSITORY Visit (SP) Office (HEMAWS) JESSICAJIGNESH AYALA ([id number]) 1950 M NFR Date Time Provider Department 07/19/18 9:30 AM TREATMENT RM 5 [facility] During your visit today, we recorded the following information about you: Temperature Pulse Blood pressure Weight 97.8 degrees 96/minute 123/68 68.7 kg Height 1.642 m Referring Provider: BEN MURCIA [[id number]] Allergies As of Date: 07/19/2018 (No Known Allergies) Date Reviewed: 07/19/2018 Reviewed by: Venancio LaraRn) JANIE Kelly - Fully Assessed Reason for Visit: Chemotherapy Treatment [771] Primary Visit Diagnosis:Small cell lung cancer (HCC) [C34.90] Other Visit Diagnoses:Bone metastases (HCC) [C79.51] Primary cancer of left upper lobe of lung (HCC) [C34.12] Encounter for antineoplastic chemotherapy and immunotherapy [Z51.11, Z51.12] Order(s):TREATMENT PARAMETERS [4135122] Order #: [id number]: 1 HEMONC NURSING COMMUNICATION [[id number]] Order #: [id number]: 1 HEMONC CARBO CALCULATION [[id number]] Order #: [id number]: 1 STANDING HEMONC COMMUNICATION ORDER [[id number]] Order #: [id number]: 1 HEMONC NURSING COMMUNICATION [[id number]] Order #: [id number]: 1 STANDING [] ondansetron (PF) 8 mg [...] * FLUTICASONE 50 MCG/ACTUATION * Use 1 Hudson in each nostril o* ATORVASTATIN 40 MG [...] encounter WARFARIN 5 MG TABLET >> Venancio Kelly RN, RN 07/19/2018 9:40 AM >> VENANCIO KELLY Mon Jul 19, 2018 9:40 AM currently 5 [...] hypertension (HCC)*INVALID FOR* Anemia [D64.9] INVALID FOR* nursing home current use of anticoagulant therapy *INVALID FOR* Gastroesophageal reflux disease [K21.9] INVALID FOR* Heavy alcohol use [Z78.9] INVALID FOR* Right rib fracture [S22.31XA] INVALID FOR* Acute respiratory failure (HCC) [J96.00] INVALID FOR*06/21/2018 Coronary arteriosclerosis in southern ute artery [I25*INVALID FOR* Chronic obstructive pulmonary disease [...] Encounter Status:Closed by VENANCIO KELLY on 07/19/18 CNSW Observed: 07/19/2018 Status: COMPLETED Source: [place]MORE 12:00 AM [facility] REPOSITORY Social Work (HEMFRANC) JIGNESH RAMIRES ([id number]) 1950 M NFR Date Time Provider Department 07/19/18 SMITHA GANNON) DEB During your visit today, we recorded the following information about you: DORY Durant 07/19/2018 1:46 PM Signed Social Work Problem Referral Note INFORMATION/REFERRAL : Jignesh Ramires 67 year old male was referred by patient and family - Name: Reyna spouse to [facility] Social Work for the following reason(s): [...] * FLUTICASONE 50 MCG/ACTUATION * Use 1 Hudson in each nostril o* ATORVASTATIN 40 MG [...] hypertension (HCC)*INVALID FOR* Anemia [D64.9] INVALID FOR* nursing home current use of anticoagulant therapy *INVALID FOR* Gastroesophageal reflux disease [K21.9] INVALID FOR* Heavy alcohol use [Z78.9] INVALID FOR* Right rib fracture [S22.31XA] INVALID FOR* Acute respiratory failure (HCC) [J96.00] INVALID FOR*06/21/2018 Coronary arteriosclerosis in southern ute artery [I25*INVALID FOR* Chronic obstructive pulmonary disease [...] AND LATERAL Observed: 07/16/2018 Status: F Source: CLARION 11:30 AM [facility] REPOSITORY [facility] Imaging Services [address] [place] [address] Chest PA and Lateral MR#: [id number] Acct: [id number] Name: JESSICAJIGNESH M Rep #: [id number] : 1950 M 67 From: Sebastien Zheng MD PCP: Jose Maurer III, MD Status: REG CLI Study: Chest PA and Lateral Date of Exam: 07/16/18 Exam# [id number] Ordering Dr: Cheryl Schaeffer STUDY: X-RAY CHEST [...] Sebastien Zheng MD at 12:17 EST Tel [phone], Service support , CC: Cheryl Schaeffer; Jose Maurer III, MD Newspaper Editor Managing: Signed PROTHROMBIN TIME W/INR Collected: 07/15/2018 Status: F Source: CL[place] 6:07 AM [facility] REPOSITORY TYPE CODE TESTS RESULT OUT OF RANGE REFERENCE UNITS LAB L300.4150 11.7-14.9 SECONDS High PROTIME 20.6 LAB L300.4200 Normal INR 1.8 Performed By: #### L300.3900 #### [facility] [address] [place], [address] PROGRESS Observed: 07/13/2018 Status: COMPLETED Source: [place]MORE 4:44 PM [facility] REPOSITORY HNO ID: [id number] Author: Smitha Gannon (Sw) Service: (none) Author Type: Media Consultant Outside Sales Type: Progress Notes Filed: 07/13/2018 4:53 PM [...] is Child/Children: Yes. How many? 1 daughter respiratory care faculty arrangements needed: No Siblings: 1 brother(s) Grandchild(celeste): 2 Home Health Provider: Respiratory Therapist Community Services: No Ashley Identified: No Sabianism/Spirituality: None Are these practices or beliefs that may affect or influence treatment? No *EMPLOYMENT/FINANCIAL/HEALTH INSURANCE: Employment: Retired Income source: Social Security Insurance: Medicare with co-insurance Prescription coverage: Yes COBRA Is the patient appropriate for referral to [facility] COBRA Assistance program? No Financial Distress: No [place]: No *LIVING ARRANGEMENTS: Type: House- independent colonial [...] Will: Yes Health Care Durable Power of Elder Assistant: Yes Scanned into EPIC: No Guardianship: NA [...] needed Resources and Referrals: ? Internal: Rodger Donnie ? External: [facility] PLAN: Follow up appointment with MITZY in: DORY Marquez ABS GR + CBC Collected: 07/13/2018 Status: F Source: [facility]ENMORE 3:55 PM [facility] REPOS[facility] TYPE CODE TESTS RESULT OUT OF REFERENCE UNITS RANGE LAB WWBC 3.70-11.00 k/uL [place] WBC 7.00 LAB WRBC 4.20-6.00 m/uL Low [place] RBC 3.25 LAB WHGB 13.0-17.0 g/dL Low [place] Hemoglobin 10.4 LAB WHCT 39.0-51.0 % Low [place] Hematocrit 32.8 LAB WMCV 80.0-100.0 fL [place] High MCV 100.9 LAB WMCH 26.0-34.0 pg [place] MCH 32.0 LAB WMCHC 30.5-36.0 g/dL [place] MCHC 31.7 LAB WRDW 11.5-15.0 % [place] RDW 13.3 LAB WPLT 150-400 k/uL [place] Platelet Cnt 264 LAB WMPV 9.0-12.7 fL Low [place] MPV 8.9 Result Comment: Test performed at: [facility] [place], [address] [place] [address]. LAB ABGRAN 1.45-7.50 k/uL Absol Gran 5.61 Count BASIC METABOLIC PANL Collected: 07/13/2018 Status: F Source: [place] 3:55 PM [facility] REPOSITORY TYPE CODE TESTS RESULT OUT OF [...] FUNCTN PANEL Collected: 07/13/2018 Status: F Source: [place]MORE 3:55 PM [facility] REPOSITORY TYPE CODE TESTS RESULT OUT OF REFERENCE UNITS RANGE LAB ALB 3.9-4.9 g/dL Albumin 4.0 LAB TBIL 0.2-1.3 mg/dL Bilirubin, Total 0.2 LAB CBIL <0.2 mg/dL Bilirubin,Conjuga <0.2 kianna LAB ALKP 38-113 U/L Alkaline Phosphatase 54 LAB AST 14-40 U/L AST 22 LAB ALT 10-54 U/L ALT 16 LAB TP 6.3-8.0 g/dL Protein, Total 7.0 LD Collected: 07/13/2018 Status: F Source: [facility] 3:55 PM [facility] REPOSITORY TYPE CODE TESTS RESULT OUT OF RANGE REFERENCE UNITS LAB LD 135-225 U/L High LD 274 PROGRESS Observed: 07/13/2018 Status: COMPLETED Source: [place] 3:52 PM [facility] REPOSITORY HNO ID: [id number] Author: Lenore Flower RN, RN Service: (none) [...] RN CNSW Observed: 07/13/2018 Status: COMPLETED Source: KENMORE 12:00 AM [facility] REPOSITORY Social Work (DEB) JIGNESH RAMIRES ([id number]) 1950 M NFR Date Time Provider Department 07/13/18 SMITHA GANNON (MITZY) DEB During your visit today, we recorded [...] is Child/Children: Yes. How many? 1 daughter respiratory care faculty arrangements needed: No Siblings: 1 brother(s) Grandchild(celeste): 2 Home Health Provider: Respiratory Therapist Community Services: No Ashley Identified: No Sabianism/Spirituality: None Are these practices or beliefs that may affect or influence treatment? No *EMPLOYMENT/FINANCIAL/HEALTH INSURANCE: Employment: Retired Income source: Social Security Insurance: Medicare with co-insurance Prescription coverage: Yes COBRA Is the patient appropriate for referral to [facility] COBRA Assistance program? No Financial Distress: No [...] Will: Yes Health Care Durable Power of Elder Assistant: Yes Scanned into EPIC: No Guardianship: NA [...] needed Resources and Referrals: ? Internal: Rodger Donnie ? External: [facility] PLAN: Follow up appointment with MITZY in: DORY Marquez Allergies As of Date: 07/13/2018 (No Known Allergies) Date Reviewed: 07/12/2018 Reviewed by: Shona Chakraborty (Monie) MONIE Ramos - Fully Assessed Reason for Visit: Psychosocial Assessment [[id number]] Prescriptions as of 07/13/2018 Sig: ONDANSETRON HCL [...] * FLUTICASONE 50 MCG/ACTUATION * Use 1 Hudson in each nostril o* ATORVASTATIN 40 MG [...] hypertension (HCC)*INVALID FOR* Anemia [D64.9] INVALID FOR* nursing home current use of anticoagulant therapy *INVALID FOR* Gastroesophageal reflux disease [K21.9] INVALID FOR* Heavy alcohol use [Z78.9] INVALID FOR* Right rib fracture [S22.31XA] INVALID FOR* Acute respiratory failure (HCC) [J96.00] INVALID FOR*06/21/2018 Coronary arteriosclerosis in southern ute artery [I25*INVALID FOR* Chronic obstructive pulmonary disease [...] 07/13/18 PROGRESS Observed: 07/12/2018 Status: COMPLETED Source: [place] 2:35 PM [facility] REPOSITORY [facility] ID: [id number] Author: Ben Murcia Service: (none) Author Type: Physician Type: Progress Notes Filed: 07/13/2018 5:53 PM Note Text: Diagnosis: 1) Extensive stage small cell lung cancer. HPI: The patient is a 67-year-old male who has a past medical history significant for hypertension, severe COPD (oxygen requiring) coronary artery disease, hyperlipidemia, peripheral vascular disease who was admitted to [facility] in April following a fall where he [...] aneurysm formation. Coronary arterial calcification is observed. Kpfu-Z-Voni-MediPort placement is noted. ABDOMEN AND PELVIS: Atherosclerotic [...] See comment. ANTIBODY / CLONE RESULT CK8 ([id number]) positive CK5-6 (D5 AND 1684) negative P40 [...] DO CNOVSP Observed: 07/12/2018 Status: COMPLETED Source: [place] 2:30 PM [facility] REPOSITORY Visit (SP) Office (DEB) JESSICAJIGNESH ([id number]) 1950 M NFR Date Time Provider Department [...] peripheral vascular disease who was admitted to [facility] in April following a fall where he [...] aneurysm formation. Coronary arterial calcification is observed. Qjzv-V-Eyny-MediPort placement is noted. ABDOMEN AND PELVIS: Atherosclerotic [...] not fulfill quantitative criteria for viable neoplasm. (EthanSteenkijosué et al, Journal of Clinical Oncology 16:2142, [...] See comment. ANTIBODY / CLONE RESULT CK8 ([id number]) positive CK5-6 (D5 AND 1684) negative P40 [...] therapy next week. DO Shona Andrews LPN, LPN 07/12/2018 2:43 PM Signed Est pt. 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 Discuss recent path report Shona Ramos LPN Encounter Status:Closed by BEN MURCIA DO on 07/13/18 PROTHROMBIN TIME W/INR Collected: 07/12/2018 Status: F Source: [place] 11:19 AM [facility] REPOSITORY TYPE CODE TESTS RESULT OUT OF RANGE REFERENCE UNITS LAB L300.4150 11.7-14.9 SECONDS High PROTIME 16.8 LAB L300.4200 Normal INR 1.4 Performed By: #### L300.3900 #### [facility] [place], [place], [address] PULMONARY VISIT REPORT Observed: 07/07/2018 Status: F Source: CL[place] 7:14 AM [facility] REPOSITORY [facility] [address] [place] [address] OFFICE VISIT Date of Service: 07/07/18 MR#: [id number] Acct: [id number] Name: JIGNESH RAMIRES Rep #: [id number] : 1950 Provider: Clovis Rodríguez MD Age/Sex: 67/M Location: [facility] Status: Signed Assessment AND Plan [...] home Plan Detail Follow Up 3 Months ([facility]) HPI 3 M FU: Chief Complaint: Shortness [...] cell carcinoma. Patient has been evaluated by [facility] and [facility]. Patient has decided to go Dr. Murcia. [...] PO BID 06/10/18 [History Confirmed 07/07/18] Tiotropium Redgranite [Spiriva] 2 puff IH DAILY 06/10/18 [History Confirmed 07/07/18] losartan 50 mg tablet 25 mg PO DAILY tab 06/16/18 [History Confirmed 07/07/18] warfarin 5 mg tablet 5 mg PO .COMPLEX #60 tab 06/24/18 [Rx Confirmed 07/07/18] PFSH Medical History Left ventricular thrombus (Acute) Nonischemic cardiomyopathy (Chronic) Severe left ventricular systolic dysfunction (Chronic) 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) PVD (peripheral vascular disease) (Chronic) Stage 3 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) PND (paroxysmal nocturnal dyspnea) (Chronic) Hyperlipidemia (Chronic) SOB (shortness of breath) (Acute) nursing home current use of anticoagulant (Chronic) Acute on [...] MD CNPN Observed: 07/07/2018 Status: COMPLETED Source: [place] 12:00 AM [facility] Spool Telephone (FAMPWS) JIGNESH RAMIRES ([id number]) 1950 M NFR Date Time Provider Department 07/07/18 [facility] During your visit today, we recorded the following information about you: Jennifer Scott, RN, RN 07/07/2018 3:19 PM Signed Pt calls, stating he was on fluid restriction and only taking 20 mg of lasix. Pt states now that he is off the fluid restriction, should he resume previous dose of 40 mg. Pt states his artist's representative is ok with resuming dose but pt asking for PCP approval. Please advise pt. Jose Maurer III MD 07/07/2018 5:54 PM Signed Stay on Lasix 20 mg daily and see if this will help clear the fluid. If it does not seem to clear the fluid then we can always increase the dose to 40 mg daily. Jose Maurer III, , FAAFP Gardenia Richards CMA, MA 07/07/2018 7:28 [...] Allergies) Date Reviewed: 06/21/2018 Reviewed by: Gardenia (Maury) ROGERIO Richards - Fully Assessed Reason for [...] * FLUTICASONE 50 MCG/ACTUATION * Use 1 Hudson in each nostril o* ATORVASTATIN 40 MG [...] hypertension (HCC)*INVALID FOR* Anemia [D64.9] INVALID FOR* nursing home current use of anticoagulant therapy *INVALID FOR* Gastroesophageal reflux disease [K21.9] INVALID FOR* Heavy alcohol use [Z78.9] INVALID FOR* Right rib fracture [S22.31XA] INVALID FOR* Acute respiratory failure (HCC) [J96.00] INVALID FOR*06/21/2018 Coronary arteriosclerosis in southern [place] artery [I25*INVALID FOR* Chronic obstructive pulmonary disease [...] Status: F Source: ROCIO FX) 9:55 AM [facility] REPOSITORY Patient: JIGNESH RAMIRES : 1950 (67/M) Acct Num: [id number] Phys: Jillian Burton MD Unit Num: [id number] Loc: CT Specimen: [id number] Received: 07/06/18 - 1007 Spec Type: Bone TISSUES 1 TISSUES: Pelvis, NOS GROSS DIAGNOSIS Immunohistochemistry ([id number]) supports the above diagnosis. The specimen also shows hematopoietic marrow tissue with trilineage hematopoiesis. Clinical correlation and appropriate follow up are necessary. Please make reference to previous specimen ([id number]) left upper lobe lung mass , CT-guided [...] in one cassette. / AM:beni TC:0 CPT: 55707 HEADER OPERATION: CT-guided right pelvic biopsy PRE-OP DIAGNOSIS: Abnormal right pelvic bone neoplasm TISSUE SUBMITTED: Right pelvic biopsy 11 gauge core x1 MICROSCOPIC DESCRIPTION Slides are reviewed. 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 See comment. SJ:beni 07/09/18 Signed Tiburcio Blas 07/09/18 <signature on file> Performed By: #### PBONBX #### [facility] [address] [place], [address] CBC W/DIFF, AUTOMATED Collected: 07/06/2018 Status: F Source: CL[place] 8:06 AM [facility] REPOSITORY Order Comment: Reason for Laboratory Test PRE-PROCEDURAL PER [facility] POLICY TYPE CODE TESTS RESULT OUT OF [...] Lymph 0.79 Performed By: #### L100.0100 #### [facility] [facility]. [place], [place], [address] PARTIAL THROMBOPLAST Collected: 07/06/2018 Status: F Source: CLAR[place] TIME 8:06 AM [facility] REPOSITORY Order Comment: Reason for Laboratory Test PRE-PROCEDURAL PER [facility] POLICY TYPE CODE TESTS RESULT OUT OF REFERENCE UNITS RANGE LAB L300.4310 24.1-36.2 Seconds High PTT 37.6 Performed By: #### L300.4310, L300.3900 #### [facility] [address] [facility]. [place], [place], [address] PROTHROMBIN TIME W/INR Collected: 07/06/2018 Status: F Source: CL[place] 8:06 AM [facility] REPOSITORY Order Comment: Reason for Laboratory Test PRE-PROCEDURAL PER [facility] POLICY TYPE CODE TESTS RESULT OUT OF RANGE REFERENCE UNITS LAB L300.4150 11.7-14.9 SECONDS Normal PROTIME 14.2 LAB L300.4200 Normal INR 1.1 Performed By: #### L300.4310, L300.3900 #### [facility] [address] [place], [address] BASIC METABOLIC Collected: 07/06/2018 Status: F Source: ROC[place] PROFILE (BMP) 8:06 AM [facility] REPOSITORY Order Comment: TUBE IS IN LAB, EXTRA DRAWN PLEASE ADD BMP FOR DR MAURER TYPE CODE TESTS RESULT [...] GAP 4 Performed By: #### L500.2500 #### [facility] [address] [place], [address] BIOPSY/INJ OR NEEDLE Observed: 07/06/2018 Status: F Source: [place] PLACEMENT 8:06 AM [facility] REPOSITORY [facility] Imaging Services [address] [place] [address] Biopsy/Inj or Needle Placement MR#: [id number] Acct: [id number] Name: JIGNESH RAMIRES Rep #: [id number] : 1950 M 67 From: Sebastien Zheng MD PCP: Jose Maurer III, MD Status: REG CLI Study: Biopsy/Inj or Needle Placement Date of Exam: 07/06/18 Exam# [id number] Ordering Dr: Jillian Burton MD PROCEDURE: CT [...] Sebastien Zheng MD at 13:26 EST Tel [phone], Service support , CC: Jose Maurer III, MD; Jillian Burton MD Newspaper Editor Managing: Signed IMMUNOHISTOCHEMISTRY Observed: 07/06/2018 Status: F Source: [place] 12:00 AM [facility] REPOSITORY Patient: JIGNESH RAMIRES : 1950 (67/M) Acct Num: [id number] Phys: Jillian Burton MD Unit Num: [id number] Loc: CT Specimen: [id number] Received: 07/07/180 Spec Type: IMMUNO TISSUES 1 TISSUES: Pelvis, NOS SPECIMEN INFORMATION: Tissue Source: Right pelvic biopsy Clinical Info: Abnormal right pelvic bone neoplasm Specimen Number: [id number] CPT code: 45810, 67533 x8 METHODOLOGY: Deparaffinized sections of prefer/formalin-fixed tissue or PAP/DQ stained slides are incubated with monoclonal/polyclonal antibodies/oligonucleotide probes. Localization is made via biotin free immunoperoxidase method. Appropriate controls are performed and reacted as expected. Results on target cell population are indicated in the following table: RESULTS: ANTIBODY / CLONE RESULT CK8 (24pprjI75) positive CK5-6 (D5 AND 1684) negative P40 (BC28) negative CD45 (RP2/18) negative CK7 (OV-TL12/30) negative CK20 (KS20.8) negative CD56 (123C3.D5) positive Chromo (LK2H10) positive Synapto (polyclonal) positive These tests were developed and their performance characteristics determined by [facility]. They may not have been cleared or approved by the U.S. Food and Drug Administration. The FDA has determined that such clearance or approval is not necessary. 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 Clinical correlation is necessary. SJ:beni 07/09/18 [facility] [address] [address] Signed Tiburcio Blas 07/09/18 <signature on file> Performed By: #### PIMM #### [facility] [address] [place] [address]. [place], [place], [id number] PROTHROMBIN TIME W/INR Collected: 07/01/2018 Status: F Source: CL[place] 12:30 PM [facility] REPOSITORY TYPE CODE TESTS RESULT OUT OF RANGE REFERENCE UNITS LAB L300.4150 11.7-14.9 SECONDS High PROTIME 18.7 LAB L300.4200 Normal INR 1.6 Performed By: #### L300.3900 #### [facility] [address] [place], [address] ONCOLOGY VISIT REPORT Observed: 07/01/2018 Status: F Source: CL[place] 12:02 PM [facility] REPOSITORY [facility] [address] [place] [address] OFFICE VISIT Date of Service: 07/01/18 1156 MR#: [id number] Acct: [id number] Name: JIGNESH RAMIRES Rep #: [id number] : 1950 From: Jillian Burton MD Age/Sex: [...] (Qi yan al, Clinical Nuclear Medicine 29:93, 2003). - Past Medical/Social History Past Medical History [...] TUMOR BASE Observed: 06/28/2018 Status: F Source: ROCIO -THIGH INIT 8:29 AM [facility] REPOSITORY [facility] Imaging Services [address] [place] [address] PET/CT Tumor Base -Thigh Init MR#: [id number] Acct: [id number] Name: JIGNESH RAMIRES Rep #: [id number] : 1950 M 67 From: Iker Montalvo DO PCP: Jose Maurer III, MD Status: REG RCR Study: PET/CT Tumor Base -Thigh Init Date of Exam: 06/28/18 Exam# [id number] Ordering Dr: Cheryl Schaeffer ROLL FORMING SUPERVISOR-C EXAMINATION: FDG PET CT INDICATIONS: A 67-year-old [...] aneurysm formation. Coronary arterial calcification is observed. Huye-W-Buib-MediPort placement is noted. ABDOMEN AND PELVIS: Atherosclerotic [...] CC: Cheryl Schaeffer; Jose Maurer III, MD Newspaper Editor Managing: Signed CT OUTSIDE CD DICOM Observed: 06/28/2018 Status: F Source: [place] IMPORT -NBNR 12:00 AM [facility] REPOSITORY Images were obtained outside of [facility] [id number] PROGRESS Observed: 06/24/2018 Status: COMPLETED Source: [place] 1:10 PM [facility] REPOSITORY HNO ID: [id number] Author: Ben Murcia Service: (none) Author Type: [...] peripheral vascular disease who was admitted to [facility] in April following a fall where he [...] edema. SKIN: No jaundice or rash. NEUROLOGIC: psychiatric registered nurse II-XII are grossly intact. No focal motor [...] TIME W/INR Collected: 06/24/2018 Status: F Source: CLARION 6:34 AM [facility] REPOSITORY TYPE CODE TESTS RESULT OUT OF RANGE REFERENCE UNITS LAB L300.4150 11.7-14.9 SECONDS High PROTIME 16.5 LAB L300.4200 Normal INR 1.3 Performed By: #### L300.3900 #### [facility] [address] [place], [address] PROGRESS Observed: 06/23/2018 Status: COMPLETED Source: [place] 1:19 PM [facility] REPOSITORY HNO ID: [id number] Author: Jose Maurer III Service: (none) Author [...] FAAFP CNOVSP Observed: 06/22/2018 Status: COMPLETED Source: [place] 2:00 PM [facility] REPOSITORY Visit (SP) Office (HEMAWS) JIGNESH RAMIRES ([id number]) 1950 M NFR Date Time Provider Department [...] peripheral vascular disease who was admitted to [facility] in April following a fall where he [...] edema. SKIN: No jaundice or rash. NEUROLOGIC: psychiatric registered nurse II-XII are grossly intact. 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 *INVALID FOR* Gastroesophageal reflux disease [K21.9] INVALID FOR* Heavy alcohol use [Z78.9] INVALID FOR* Right rib fracture [S22.31XA] INVALID FOR* Acute respiratory failure (HCC) [J96.00] INVALID FOR*06/21/2018 Coronary arteriosclerosis in southern [place] artery [I25*INVALID FOR* Chronic obstructive pulmonary disease [...] 06/24/18 TSH Collected: 06/21/2018 Status: F Source: K[place]MORE 4:09 [facility] REPOSITORY TYPE CODE TESTS RESULT OUT OF RANGE REFERENCE UNITS LAB TSH 0.400-5.500 uU/mL TSH 1.590 Performed By: #### TSH, CMP, FERR, B12, SERFOL #### [facility] [address] [place], [place] [address] COMP METABOLIC PANEL Collected: 06/21/2018 Status: F Source: [place] 4:09 PM [facility] REPOSITORY TYPE CODE TESTS RESULT OUT OF REFERENCE UNITS RANGE LAB TP 6.3-8.0 g/dL Protein, Total 7.2 LAB ALB 3.9-4.9 g/dL Albumin 4.1 LAB CA 8.5-10.2 mg/dL Calcium, Total 9.0 LAB TBIL 0.2-1.3 mg/dL Bilirubin, Total 0.4 LAB ALKP 38-113 U/L Alkaline Phosphatase 58 LAB AST 14-40 U/L AST 32 LAB GLU 74-99 mg/dL Glucose 86 Result Comment: The [place] Diabetes Association (ADA) provides guidance for cutoff [...] Standards of Medical Care in Diabetes 2016, [place] [employer] Association. Diabetes Care. 2016.39(Suppl 1). LAB [...] #### TSH, CMP, FERR, B12, SERFOL #### [facility] [address] [place], [place] [address] FERRITIN Collected: 06/21/2018 Status: F Source: [place] 4:09 PM [facility] REPOSITORY TYPE CODE TESTS RESULT OUT OF REFERENCE UNITS RANGE LAB FERR 30.3-565.7 ng/mL High Ferritin 737.7 Performed By: #### TSH, CMP, FERR, B12, SERFOL #### [facility] [address] [place], [place] [address] VITAMIN B12 Collected: 06/21/2018 Status: F Source: [place] 4:09 PM [facility] REPOSITORY TYPE CODE TESTS RESULT OUT OF REFERENCE UNITS RANGE LAB B12 232-1245 pg/mL Vitamin B12 847 Performed By: #### TSH, CMP, FERR, B12, SERFOL #### [facility] [address] [place] [address] FOLATE, SERUM Collected: 06/21/2018 Status: F Source: [place] 4:09 PM [facility] REPOSITORY TYPE CODE TESTS RESULT OUT OF REFERENCE UNITS RANGE LAB SERFOL >4.7 ng/mL Folate, 19.6 Serum Performed By: #### TSH, CMP, FERR, B12, SERFOL #### [facility] [address] [place], [place] [address] PROGRESS Observed: 06/21/2018 Status: COMPLETED Source: [place] 3:37 PM [facility] REPOSITORY HNO ID: [id number] Author: Jose Maurer III Service: (none) Author Type: Physician Type: Progress Notes Filed: 06/21/2018 6:02 PM Note Text: SUBJECTIVE: This is a 67 year old male that is here today for 1. s/p fx of 6 ribs complicated by L pneumothorax. Records reviewed from [facility]. Unable to locate records from [facility]. [...] Cardiomyopathy (HCC) - CHF (congestive heart failure) ([facility]) - Chronic obstructive pulmonary disease (COPD) ([facility]) severe - Diverticulosis of colon (without mention of hemorrhage) - HTN (hypertension) - Hyperlipidemia - ICD (implantable cardioverter-defibrillator) in place - Internal hemorrhoids without mention of complication - Moderate to severe pulmonary hypertension (HCC) 04/01/2017 - NICM (nonischemic cardiomyopathy) ([facility]) - Obstructive chronic bronchitis (HCC) 08/06/2010 - PMH - PAST MEDICAL HISTORY OF cystic acne - Psoriasis 02/02/2014 - Psoriatic arthritis (HCC) 02/02/2014 - Pulmonary HTN ([facility]) - PVD (peripheral vascular disease) ([facility]) - Snoring - SOB (shortness of breath) - Solitary pulmonary nodule on lung CT 05/22/2018 05/13/18: 1.3 cm x 1.1 cm spiculated nodule L upper lobe - Squamous carcinoma of lung, left ([facility]) - Stage 3 severe COPD by GOLD classification ([facility]) - Systolic CHF ([facility]) Current Outpatient Prescriptions on File Prior to Visit: hydroxychloroquine (PLAQUENIL) 200 mg tablet Take 1 tablet by mouth twice daily. levothyroxine (LEVOXYL) 25 mcg tablet Take 1 tablet by mouth once daily. Take on empty stomach. For Thyroid Omeprazole 40 mg capsule Take 1 capsule by mouth once daily. fluticasone (FLONASE) 50 mcg/actuation nasal spray Use 1 Hudson in each nostril once daily. atorvastatin (LIPITOR) [...] O2 nasal cannula. Please fax results to [phone]. Diagnosis: Very severe COPD J44.9 COMPOUNDED PRESCRIPTION Please perform nocturnal pulse oximetry on 4 lpm O2 NC. Dx= Nocturnal Hypoxemia G47.34. Please fax results to [phone]. albuterol (PROVENTIL) 2.5 mg/0.5 mL nebulizer solution [...] MD CNOV Observed: 06/21/2018 Status: COMPLETED Source: [place] 3:00 PM [facility] REPOSITORY Office Visit (FAMPWS) JESSICAJIGNESH ([id number]) 1950 M NFR Date Time Provider Department [...] complicated by L pneumothorax. Records reviewed from [facility]. Unable to locate records from [facility]. [...] (HCC) - Chronic obstructive pulmonary disease (COPD) ([facility]) severe - Diverticulosis of colon (without mention of hemorrhage) - HTN (hypertension) - Hyperlipidemia - ICD (implantable cardioverter-defibrillator) in place - Internal hemorrhoids without mention of complication - Moderate to severe pulmonary hypertension (HCC) 04/01/2017 - NICM (nonischemic cardiomyopathy) ([facility]) - Obstructive chronic bronchitis (HCC) 08/06/2010 - PMH - PAST MEDICAL HISTORY OF cystic acne - Psoriasis 02/02/2014 - Psoriatic arthritis (HCC) 02/02/2014 - Pulmonary HTN (HCC) - PVD (peripheral vascular disease) ([facility]) - Snoring - SOB (shortness of breath) - Solitary pulmonary nodule on lung CT 05/22/2018 05/13/18: 1.3 cm x 1.1 cm spiculated nodule L upper lobe - Squamous carcinoma of lung, left (HCC) - Stage 3 severe COPD by GOLD classification ([facility]) - Systolic CHF ([facility]) Current Outpatient Prescriptions on File Prior to Visit: hydroxychloroquine (PLAQUENIL) 200 mg tablet Take 1 tablet by mouth twice daily. levothyroxine (LEVOXYL) 25 mcg tablet Take 1 tablet by mouth once daily. Take on empty stomach. For Thyroid Omeprazole 40 mg capsule Take 1 capsule by mouth once daily. fluticasone (FLONASE) 50 mcg/actuation nasal spray Use 1 Hudson in each nostril once daily. atorvastatin (LIPITOR) [...] O2 nasal cannula. Please fax results to [phone]. Diagnosis: Very severe COPD J44.9 COMPOUNDED PRESCRIPTION Please perform nocturnal pulse oximetry on 4 lpm O2 NC. Dx= Nocturnal Hypoxemia G47.34. Please fax results to [phone]. albuterol (PROVENTIL) 2.5 mg/0.5 mL nebulizer solution [...] ordered Jose Maurer III MD Referring Provider: [facility] [[id number]] Allergies As of Date: 06/21/2018 (No Known Allergies) Date Reviewed: 06/21/2018 Reviewed by: [place] ([facility]) ROGERIO Richards - Fully Assessed Reason for Visit: [facility] follow up [Other] Cmt: collapsed lung Primary Visit Diagnosis:Chronic respiratory failure with hypoxia (HCC) [J96.11] Other Visit Diagnoses:Obstructive chronic bronchitis (HCC) [J44.9] Chronic obstructive pulmonary disease with acute exacerbation (HCC) [J44.1] Anemia, unspecified type [D64.9] Peripheral vascular disease (HCC) [I73.9] Macrocytic anemia [D53.9] Heavy alcohol use [Z78.9] Order(s):FOLATE SERUM [SQSERFOL] Order #: [id number] FUTURE VITAMIN B12 BLOOD [SQB12] Order #: [id number] FUTURE FERRITIN BLD [SQFERR] Order #: [id number] FUTURE COMP METABOLIC PANEL [SQCMP] Order #: [id number] FUTURE Prescriptions as of 06/21/2018 Sig: FOLIC ACID 400 MCG TABLET Take 400 mcg by mouth once da* HYDROXYCHLOROQUINE 200 MG TAB* Take 1 tablet by mouth twice * LEVOTHYROXINE 25 MCG TABLET Take 1 tablet by mouth once d* OMEPRAZOLE 40 MG CAPSULE,MARÍA* Take 1 capsule by mouth once * FLUTICASONE 50 MCG/ACTUATION * Use 1 Hudson in each nostril o* ATORVASTATIN 40 MG [...] hypertension (HCC)*INVALID FOR* Anemia [D64.9] INVALID FOR* nursing home current use of anticoagulant therapy *INVALID FOR* Gastroesophageal reflux disease [K21.9] INVALID FOR* Heavy alcohol use [Z78.9] INVALID FOR* Right rib fracture [S22.31XA] INVALID FOR* Acute respiratory failure (HCC) [J96.00] INVALID FOR*06/21/2018 Coronary arteriosclerosis in southern [place] artery [I25*INVALID FOR* Chronic obstructive pulmonary disease [...] medications for now labs as ordered Jose Pascual Maurer III MD Medications Discontinued During This [...] HISTORY AND Observed: 06/21/2018 Status: F Source: [place] PHYSICAL 12:07 PM [facility] REPOSITORY [facility] Medical Records Department [address] [place] [address] History and Physical 06/21/18 1146 MR#: [id number] Acct: [id number] Name: JIGNESH RAMIRES Rep #: [id number] : 1950 67 From: Jillian Burton MD [...] PET CT June 28, 2018. 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) PVD (peripheral vascular disease) (Chronic) Stage 3 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) PND (paroxysmal nocturnal dyspnea) (Chronic) Hyperlipidemia (Chronic) SOB (shortness of breath) (Acute) nursing home current use of anticoagulant (Chronic) Acute on [...] drinking: 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 It has not been cleared or approved by the FDA. -[facility] is regulated under CLIA as qualified to perform high-complexity testing. This test is used for clinical purposes. It should not be regarded as investigational or for research. Performed By: #### IFOBT #### [facility] [address] [place], [place] [address] PULMONARY VISIT REPORT Observed: 06/17/2018 Status: F Source: ROCIO 10:22 AM [facility] REPOSITORY [facility] [address] [place] [address] OFFICE VISIT Date of Service: 06/16/18 MR#: [id number] Acct: [id number] Name: JIGNESH RAMIRES Rep #: [id number] : 1950 Provider: Cheryl Schaeffer Age/Sex: 67/M Location: [facility] Status: Signed Assessment AND Plan 1. Pneumothorax after biopsy J95.811 Plan Resolved. Chest tube suture removed. Site healing, no signs of infection. Band-Aid in place. 2. Squamous cell carcinoma of left lung C34.92 Plan New. PET scan ordered for cancer staging. Patient is unable to have MRI of the brain secondary to implanted AICD. Recently had CT of the brain at [facility] for trauma workup. Referral made to 2 [...] Spiriva Respimat, evaluate possibility of returning to [facility] once patient achieves better inspiratory effort. 4. 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) PVD (peripheral vascular disease) (Chronic) Stage 3 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) PND (paroxysmal nocturnal dyspnea) (Chronic) Hyperlipidemia (Chronic) SOB (shortness of breath) (Acute) 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) Acute on [...] signed by Cheryl Schaeffer NP-C> Date Cheryl Schaeffer NP-C Cosigner Signature: Date (if applicable) CC: Jose Maurer III, MD CHEST PA AND LATERAL Observed: 06/15/2018 Status: F Source: [place] 11:29 AM [facility] REPOSITORY [facility] Imaging Services [address] [place] [address] Chest PA and Lateral MR#: [id number] Acct: [id number] Name: JIGNESH RAMIRES Rep #: [id number] : 1950 M 67 From: Sebastien Zheng MD PCP: Jose Maurer III, MD Status: REG CLI Study: Chest PA and Lateral Date of Exam: 06/15/18 Exam# [id number] Ordering Dr: Cheryl Schaeffer STUDY: X-RAY CHEST [...] Sebastien Zheng MD at 12:14 EDT Tel [phone], Service support , CC: Cheryl Schaeffer; Jose Maurer III, MD Newspaper Editor Managing: Signed CHEST 1 VIEW Observed: 06/11/2018 Status: F Source: [place] (PORTABLE) 12:37 PM [facility] REPOSITORY [facility] Imaging Services [address] [place] [address] Chest 1 View (Portable) MR#: [id number] Acct: [id number] Name: JIGNESH RAMIRES Rep #: [id number] : 1950 M 67 From: Sebastien Zheng MD PCP: Jose Maurer III, MD Status: ADM IN Study: Chest 1 View (Portable) Date of Exam: 06/11/18 Exam# [id number] Ordering Dr: Angel Gary DO STUDY: X-RAY [...] Sebastien Zheng MD at 13:16 EDT Tel [phone], Service support , CC: Angel Gary D.O.; Jose Maurer III, MD Newspaper Editor Managing: Signed CONSULTATION Observed: 06/11/2018 Status: F Source: [place] 12:35 PM [facility] Medical Records Department [address] [place] [address] Consultation 06/11/18 0700 MR#: [id number] Acct: [id number] Name: JIGNESH RAMIRES Rep #: [id number] : 1950 67 From: Angel Gary DO PCP: Jose Maurer III, MD Status: ADM IN Location: [place] [address] Reason for Consult Date of Consultation: 06/11/18 [...] Implantable cardioverter-defibrillator (ICD) in situ (Chronic 12/27/16) [employer] Dynogen EL ICD, model D150; Seriao # [id number] Secondary pulmonary arterial hypertension (Chronic) Nonischemic cardiomyopathy (Chronic) EF 15-20% per heart cath 08/29/2016; 20-35% per echo 12/17/2016 Severe left ventricular systolic dysfunction (Chronic) EF 15-20% per heart cath 08/29/2016; 20-35% per echo 12/17/2016 History of left heart catheterization (Chronic) Mild, nonobstructive CAD per [facility] 08/29/2016 @ [facility] per Dr. 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 Florian PVD (peripheral vascular disease) (Chronic) Long-term use of high-risk medication (Chronic) Stage 3 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) FEV1 31 PND (paroxysmal nocturnal dyspnea) (Chronic) Hyperlipidemia (Chronic) nursing home current use of anticoagulant (Chronic) Psoriatic arthritis [...] per echo 12/17/2016 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.02 nursing home current use of anticoagulant (Chronic) Z79.01 Acute [...] in situ (Chronic) Onset Date: 12/27/16 Z95.810 [employer] Dynogen EL ICD, model D150; Seriao # [id number] History of left heart catheterization (Chronic) Z98.890 Mild, nonobstructive CAD per [facility] 08/29/2016 @ [facility] per Dr. Florian Surgical History: no surgical [...] Balance - Laboratory Tests Past 24 Hrs Clinical Impression(s) from Imaging Studies Chest X-Ray 06/10/18 14:43 IMPRESSION: Large left pneumothorax. This has progressed as compared to prior study. Atelectasis in the posterior medial segment of the left lower lobe. Electronically Signed: Sebastien Zheng MD at 15:03 EDT Tel [phone], Service support , Chest X-Ray 06/10/18 16:15 IMPRESSION: 1. Successful evacuation of the left pneumothorax following placement of left chest tube. 2. There is incomplete reaeration of the left lung base. Small left pleural effusion not excluded. Electronically Signed: Dewayne Perez MD at 16:55 EDT , Service support , Assessment/Plan All Active Problems (Last Reviewed 05/27/18 @ 10:31 by Cheryl Schaeffer, ROLL FORMING SUPERVISOR-C) Pneumothorax after biopsy (Acute) Shortness of breath [...] with exertion. This note was generated with PatientKeeper dictation software. It may contain incorrect words, spelling, and punctuation that were not noted in checking the note before signing. Code Visit Inpatient E AND M: 67754 Init Hosp L3 06/11/18 1235 <Electronically signed by Angel Gary DO> Date Angel Gary DO Cosigner Signature (if applicable): Date CC: Angel Gary D.O.; Jose Maurer III, MD Signed DISCHARGE SUMMARY Observed: 06/11/2018 Status: F Source: [place] 11:26 AM [facility] REPOSITORY [facility] Medical Records Department [address] [place] [address] Discharge Summary 06/11/18 1118 MR#: [id number] Acct: [id number] Name: JIGNESH RAMIRES Rep #: [id number] : 1950 67 From: Ben Arango MD PCP: Jose Maurer III, MD Status: ADM IN Location: [place] [address] Discharge Date and Diagnosis - Problem List [...] Implantable cardioverter-defibrillator (ICD) in situ (Chronic 12/27/16) [employer] Dynogen EL ICD, model D150; Seriao # [id number] Secondary pulmonary arterial hypertension (Chronic) Nonischemic cardiomyopathy (Chronic) EF 15-20% per heart cath 08/29/2016; 20-35% per echo 12/17/2016 Severe left ventricular systolic dysfunction (Chronic) EF 15-20% per heart cath 08/29/2016; 20-35% per echo 12/17/2016 History of left heart catheterization (Chronic) Mild, nonobstructive CAD per [facility] 08/29/2016 @ [facility] per Dr. 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 Florian PVD (peripheral vascular disease) (Chronic) Long-term use of high-risk medication (Chronic) Stage 3 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) FEV1 31 PND (paroxysmal nocturnal dyspnea) (Chronic) Hyperlipidemia (Chronic) nursing home current use of anticoagulant (Chronic) Psoriatic arthritis [...] to hold Coumadin and aspirin as per artist's representative Dr. Florian until June 17. And have [...] the patient's chart. Chart is dictated with chief juvenile probation officer software. Errors may occur in dictation that may change providers meaning. This note was generated with PatientKeeper dictation software. It may contain incorrect words, [...] Output Total 310 / 310 Balance -10 Laboratory Tests Past 24 Hrs STUDY: X-RAY [...] Sebastien Zheng MD at 10:41 EDT Tel [phone], Service support , Discharge Diet: No Restrictions [...] [Lasix] 40 mg PO BID 06/10/18 Tiotropium Redgranite [Spiriva] 2 puff IH DAILY 06/10/18 Primary [...] 30 Code Visit Inpatient E AND M: 38247 Disch Hosp 06/11/18 1126 <Electronically signed by Ben Arango MD> Date Ben Arango MD Cosigner Signature (if applicable): Date CC: Jose Maurer III, MD; Ben Arango MD Signed DISCHARGE INSTRUCTION Observed: 06/11/2018 Status: F Source: [place] 11:17 AM [facility] REPOSITORY [facility] Medical Records Department [address] [place] [address] Instructions for Home/Discharge Instructions 06/11/18 1109 MR#: [id number] Acct: [id number] Name: JIGNESH RAMIRES Rep #: [id number] : 1950 67 From: Ben Arango MD PCP: Jose Maurer III, MD Status: ADM IN - Discharge Diagnoses Current Active Problems: Current Active and Chronic Problems (Last Reviewed 05/27/18 @ 10:31 by VICKIE Olivo) Shortness of breath (Acute) Reason(s) for Visit [...] [Lasix] 40 mg PO BID 06/10/18 Tiotropium Redgranite [Spiriva] 2 puff IH DAILY 06/10/18 Primary [...] MD PROGRESS Observed: 06/11/2018 Status: COMPLETED Source: [place] 10:52 AM [facility] REPOSITORY [facility] ID: [id number] Author: Lj (Rn) JANIE Flynn Service: (none) Author Type: Registered Nurse Type: Progress Notes Filed: 06/11/2018 10:57 AM Note Text: TRANSITION CARE MANAGEMENT (TCM) FOLLOW-UP NOTE Summary: Hospital d/c 05/16 CHF, fall rib fx, scalp laceration Kept TCM appt Concerns: Attempted to call patient for TCM Follow Up No answer. LM to call TCM line ([phone]) Electronic Maintenance Supervisor plan for next outreach: Has TCM contact number No further follow up needed at this time Signature Lj Flynn RN June 11, 2018 CHEST 1 VIEW Observed: 06/11/2018 Status: F Source: [place] (PORTABLE) 9:48 AM [facility] REPOSITORY [facility] Imaging Services [address] [place] [address] Chest 1 View (Portable) MR#: [id number] Acct: [id number] Name: JIGNESH RAMIRES Rep #: [id number] : 1950 M 67 From: Sebastien Zheng MD PCP: Jose Maurer III, MD Status: ADM IN Study: Chest 1 View (Portable) Date of Exam: 06/11/18 Exam# [id number] Ordering Dr: Angel Gary DO STUDY: X-RAY [...] Sebastien Zheng MD at 10:41 EDT Tel [phone], Service support , CC: Angel Gary D.O.; Jose Maurer III, MD Newspaper Editor Managing: Signed CBC W/DIFF, AUTOMATED Collected: 06/11/2018 Status: F Source: [place] 5:54 AM [facility] REPOSITORY TYPE CODE TESTS RESULT OUT OF [...] Lymph 1.14 Performed By: #### L100.0100 #### [facility] [address] [place], [address] BASIC METABOLIC Collected: 06/11/2018 Status: F Source: [place] PROFILE ([facility]) 5:54 AM [facility] REPOSITORY TYPE CODE TESTS RESULT OUT OF [...] GAP 3 Performed By: #### L500.2500 #### [facility] [address] [place], [address] PROTHROMBIN TIME W/INR Collected: 06/11/2018 Status: F Source: [place] 5:54 AM [facility] REPOSITORY TYPE CODE TESTS RESULT OUT OF RANGE REFERENCE UNITS LAB L300.4150 11.7-14.9 SECONDS Normal PROTIME 14.8 LAB L300.4200 Normal INR 1.2 Performed By: #### L300.3900 #### [facility] [address] [place], [address] CHEST 1 VIEW Observed: 06/11/2018 Status: F Source: [place] (PORTABLE) 12:01 AM [facility] REPOSITORY [facility] Imaging Services [address] [facility] [place] [address] Chest 1 View (Portable) MR#: [id number] Acct: [id number] Name: JIGNESH RAMIRES Rep #: [id number] : 1950 M 67 From: Sebastien Zheng MD PCP: Jose Maurer III, MD Status: ADM IN Study: Chest 1 View (Portable) Date of Exam: 06/11/18 Exam# [id number] Ordering Dr: Angel Gary DO STUDY: X-RAY [...] Sebastien Zheng MD at 8:25 EDT Tel [phone], Service support , CC: Angel Gary D.O.; Jose Maurer III, MD Newspaper Editor Managing: Signed CNPTOUTREACH Observed: 06/11/2018 Status: COMPLETED Source: [place] 12:00 AM [facility] REPOSITORY Patient Outreach ([facility]AMP[facility]) JESSICAJIGNESH ([id number]) 1950 M NFR Date Time Provider Department 06/11/18 LJ FLYNN (JANIE) FAMPWS During your visit today, we recorded the following information about you: Lj Flynn RN, RN 06/11/2018 10:57 AM Signed TRANSITION CARE MANAGEMENT (TCM) FOLLOW-UP NOTE Summary: Hospital d/c 05/16 CHF, fall rib fx, scalp laceration Kept TCM appt Concerns: Attempted to call patient for TCM Follow Up No answer. 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 therapy *INVALID FOR* Gastroesophageal reflux disease [K21.9] INVALID FOR* Heavy alcohol use [Z78.9] INVALID FOR* Right rib fracture [S22.31XA] INVALID FOR* Acute respiratory failure (HCC) [J96.00] INVALID FOR* Coronary arteriosclerosis in southern ute artery [I25*INVALID FOR* Chronic obstructive pulmonary disease [...] AND PHYSICAL Observed: 06/10/2018 Status: F Source: [place] EXAM 8:44 PM [facility] REPOSITORY [facility] Medical Records Department [address] [place] [address] History and Physical 06/10/18 1649 MR#: [id number] Acct: [id number] Name: JIGNESH RAMIRES Rep #: [id number] : 1950 67 From: Neha Hall MD PCP: Jose Maurer III, MD Status: ADM IN Y Location: [facility] [id number] Problem List (1) Shortness of breath Status: [...] he went home and his called his imaging tech office to find out if he should [...] 05/27/18 @ 10:31 by Cheryl Schaeffer NP-C) Implantable cardioverter-defibrillator (ICD) in situ (Chronic 12/27/16) [employer] Dynogen EL ICD, model D150; [place]anner # [id number] Secondary pulmonary arterial hypertension (Chronic) Nonischemic cardiomyopathy (Chronic) EF 15-20% per heart cath 08/29/2016; 20-35% per echo 12/17/2016 Severe left ventricular systolic dysfunction (Chronic) EF 15-20% per heart cath 08/29/2016; 20-35% per echo 12/17/2016 History of left heart catheterization (Chronic) Mild, nonobstructive CAD per [facility] 08/29/2016 @ [facility] per Dr. 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) Psoriatic arthritis (Chronic) Acne cystica (Chronic) CHF (congestive heart failure), NYHA class I (Chronic) Pulmonary hypertension (Chronic) RVSP 47mm hg per echo 08/28/2016 (unable to estimate per Echo 12/17/2016) Medical History: Medical History (Last Reviewed 05/27/18 @ 10:31 by Cheryl Schaeffer, ROLL FORMING SUPERVISOR-C) Left ventricular thrombus (Acute) I51.3 Nonischemic cardiomyopathy (Chronic) I42.8 EF 15-20% per heart cath 08/29/2016; 20-35% per echo 12/17/2016 Severe left ventricular systolic dysfunction (Chronic) I51.9 EF 15-20% per heart cath 08/29/2016; 20-35% per echo 12/17/2016 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 Florian Surgical History: no surgical [...] Problems: Active and Suspected Problems (Last Reviewed 10/11/18 @ 10:31 by VICKIE Olivo) Shortness of [...] 05/27/18 @ 10:31 by Cheryl Schaeffer, WILLIE-C) Shortness of breath (Acute) Lung nodule (Acute) [...] tube inserted in ED * Admit to [facility] with telemetry. * Allergy consulted to manage [...] Patient elects to be full code. Total jlbd-tf-kghd time 18 minutes. Code Visit Inpatient E AND M: 83212 Init Hosp L3 Procedures: 28777 Advncd Care Plan 30 Min 06/10/184 <Electronically signed by Neha aHll MD> Date Neha Hall MD Cosigner Signature: Date (if applicable) CC: Jose Maurer III, MD; Neha Hall MD Signed PROTHROMBIN TIME W/INR Collected: 06/10/2018 Status: F Source: [place] 7:02 PM [facility] REPOSITORY TYPE CODE TESTS RESULT OUT OF RANGE REFERENCE UNITS LAB L300.4150 11.7-14.9 SECONDS Normal PROTIME 14.7 LAB L300.4200 Normal INR 1.2 Performed By: #### L300.3900 #### [facility] [address] [facility] [place], [address] EMERGENCY DEPARTMENT Observed: 06/10/2018 Status: F Source: [place] SUMMARY 4:25 PM [facility] REPOSITORY [facility] Medical Records Department [address] [place] [address] Emergency Department Summary 06/10/18 1536 MR#: [id number] Acct: [id number] Name: JIGNESH RAMIRES Rep #: [id number] : 1950 67 From: Fuentes Edmondson MD [...] past medical history he recommended a 20 Chilean chest tube and admission to hospitalist with consult to him. Consent was obtained for placement of left chest tube. He was explained risk benefits. Patient's and 's questions were answered. The left torso was prepped draped sterile manner. Incision was made using a 10 blade. Blunt dissection was undertaken and the 20 Chilean chest tube was placed to ribs above the incision site. There was a small ferreira of air. There is condensation noted in the 20 Chilean chest tube. Patient desaturated and a stat [...] Treatment Plan: Chest tube left Disposition: Admit [facility] Impression: 1. Expanding left pneumothorax status post lung biopsy 2. History of CHF 3. History of COPD 4. History of nonischemic cardiomyopathy 5. History of pulmonary hypertension 6. History of peripheral arterial disease 7. History of recent fall with multiple left rib fractures and right rib fractures This note was generated with PatientKeeper dictation software. It may contain incorrect words, [...] your Primary Care Provider. Call [facility] ([phone]) or report to the closest Emergency Room. Call 911 if necessary. 06/10/18 1620 <Electronically signed by Fuentes Edmondson MD> Date Fuentes Edmondson MD Cosigner Signature (If Indicated): Date CC: Angel Gary D.O.; Jose Maurer III, MD CHEST 1 VIEW Observed: 06/10/2018 Status: F Source: [place] (PORTABLE) 4:14 PM [facility] REPOSITORY [facility] Imaging Services [address] [place] [address] Chest 1 View (Portable) MR#: [id number] Acct: [id number] Name: JIGNESH RAMIRES Rep #: [id number] : 1950 M 67 From: Basim Perez MD PCP: Jose Maurer III, MD Status: REG ER Study: Chest 1 View (Portable) Date of Exam: 06/10/18 Exam# [id number] Ordering Dr: Fuentes Edmondson MD STUDY: X-RAY [...] Jose Maurer III, MD; Fuentes Edmondson MD Newspaper Editor Managing: Signed CBC W/DIFF, AUTOMATED Collected: 06/10/2018 Status: F Source: [place] 3:59 PM [facility] REPOSITORY TYPE CODE TESTS RESULT OUT OF [...] Lymph 1.37 Performed By: #### L100.0100 #### [facility] [address] [place] [address]. [place], [address] BASIC METABOLIC Collected: 06/10/2018 Status: F Source: [place] PROFILE (BMP) 3:59 PM [facility] REPOSITORY TYPE CODE TESTS RESULT OUT OF [...] GAP 7 Performed By: #### L500.2500 #### [facility] [address] [facility] [place], [address] CHEST 1 VIEW Observed: 06/10/2018 Status: F Source: [place] (PORTABLE) 2:42 PM [facility] REPOSITORY [facility] Imaging Services [address] [place] [address] Chest 1 View (Portable) MR#: [id number] Acct: [id number] Name: JIGNESH RAMIRES Rep #: [id number] : 1950 M 67 From: Sebastien Zheng MD PCP: Jose Maurer III, MD Status: REG ER Study: Chest 1 View (Portable) Date of Exam: 06/10/18 Exam# [id number] Ordering Dr: Fuentes Edmondson MD STUDY: X-RAY [...] Sebastien Zheng MD at 15:03 EDT Tel [phone], Service support , CC: Jose Maurer III, MD; Fuentes Edmondson MD Newspaper Editor Managing: Signed MISCELLANEOUS LAB Collected: 06/08/2018 Status: F Source: [place] PROCEDURE 1:42 PM [facility] REPOSITORY Order Comment: Comments: [id number] Test(s) Ordered: PD-L1 [id number] TYPE CODE TESTS RESULT OUT OF RANGE REFERENCE UNITS LAB L801.1541 SEE Normal [facility] [place] PATHOLOGY LAB TEST REPORT Result Comment: Specimen submitted to Anatomical Pathology Department for testing. Performed By: #### L801.1541 #### [facility] [address] [facility] [place], [address] CHEST INSP/EXP 2 VIEW Observed: 06/08/2018 Status: F Source: [place] 12:42 PM [facility] REPOSITORY [facility] Imaging Services [address] [place] [address] Chest Insp/Exp 2 View MR#: [id number] Acct: [id number] Name: JIGNESH RAMIRES Rep #: [id number] : 1950 M 67 From: Michell Grajeda MD PCP: Jose Maurer III, MD Status: REG CLI Study: Chest Insp/Exp 2 View Date of Exam: 06/08/18 Exam# [id number] Ordering Dr: Sebastien Zheng MD STUDY: X-RAY [...] Jose Maurer III, MD; Sebastien Zheng MD Newspaper Editor Managing: Signed CHEST INSP/EXP 2 VIEW Observed: 06/08/2018 Status: F Source: [place] 12:42 PM [facility] REPOSITORY [facility] Imaging Services [address] [place] [address] Chest Insp/Exp 2 View MR#: [id number] Acct: [id number] Name: JIGNESH RAMIRES Rep #: [id number] : 1950 M 67 From: Sebastien Zheng MD PCP: Jose Maurer III, MD Status: REG CLI Study: Chest Insp/Exp 2 View Date of Exam: 06/08/18 Exam# [id number] Ordering Dr: Sebastien Zheng MD STUDY: X-RAY [...] Sebastien Zheng MD at 10:58 EDT Tel [phone], Service support , CC: Jose Maurer III, MD; Sebastien Zheng MD Newspaper Editor Managing: Signed PLATELET COUNT Collected: 06/08/2018 Status: F Source: [place] 10:10 AM [facility] REPOSITORY TYPE CODE TESTS RESULT OUT OF RANGE REFERENCE UNITS LAB L100.1900 150-450 K/mm3 Normal PLT 294 Performed By: #### L100.1900 #### [facility] [address] [place], [place], [address] PROTHROMBIN TIME W/INR Collected: 06/08/2018 Status: F Source: [place] 9:31 AM [facility] REPOSITORY TYPE CODE TESTS RESULT OUT OF RANGE REFERENCE UNITS LAB L300.4150 11.7-14.9 SECONDS High PROTIME 15.1 LAB L300.4200 Normal INR 1.2 Performed By: #### L300.3900, L300.4310 #### [facility] [address] [place], [address] PARTIAL THROMBOPLAST Collected: 06/08/2018 Status: F Source: [place] TIME 9:31 AM [facility] REPOSITORY TYPE CODE TESTS RESULT OUT OF REFERENCE UNITS RANGE LAB L300.4310 24.1-36.2 Seconds High PTT 39.0 Performed By: #### L300.3900, L300.4310 #### [facility] [address] [place], [address] BIOPSY/INJ OR NEEDLE Observed: 06/08/2018 Status: F Source: [place] PLACEMENT 9:27 AM [facility] REPOSITORY [facility] Imaging Services [address] [place] [address] Biopsy/Inj or Needle Placement MR#: [id number] Acct: [id number] Name: JIGNESH RAMIRES Rep #: [id number] : 1950 67 From: Sebastien Zheng MD PCP: Jose Maurer III, MD Status: REG CLI Study: Biopsy/Inj or Needle Placement Date of Exam: 06/08/18 Exam# [id number] Ordering Dr: Cheryl Schaeffer ROLL FORMING SUPERVISOR-C PROCEDURE: CT GUIDED CORE NEEDLE BIOPSY OF A left upper lobe LUNG LESION INDICATION: Male, 67 years old. Nodular density in the left upper lobe. PHYSICIAN: Dr.Pedicelli SBURAMANIAN CONSENT: Written informed consent was obtained having [...] Sebastien Zheng MD at 14:03 EDT Tel [phone], Service support , CC: Cheryl Schaeffer; Jose Maurer III, MD Newspaper Editor Managing: Signed LUNG, BIOPSY Observed: 06/08/2018 Status: F Source: [place] 12:00 AM [facility] REPOSITORY Patient: JIGNESH RAMIRES : 1950 (67/M) Acct Num: [id number] Phys: Cheryl Schaeffer NP Unit Num: [id number] Loc: CT Specimen: [id number] Received: 06/08/181318 Spec Type: LUNG BX TISSUES 1 TISSUES: Lung, NOS ADDENDUM Addendum Number 1 PD-L1 (KEYTRUDA) IMMUNOHISTOCHEMISTRY ANALYSIS FROM [facility] INTERPRETATION: No expression Tumor proportion score: <1% Please see complete report in e-chart or EMR for complete details Addendum Signed Stanley Mcgowan 07/02/18 <signature on file> COMMENT The specimen is evaluated at the time of CT-guided lung biopsy by Dr. Blas. Immediate Evaluation = Atypical cells noted suspicious for non-small cell carcinoma. Immunohistochemistry ([id number]) supports the above diagnosis. Case has been [...] is totally submitted in one cassette. / SJ:beni 06/08/18 TC:0 CPT: 10459, 15809 HEADER OPERATION: CT-guided left upper lobe/lung biopsy PRE-OP DIAGNOSIS: Mass - left upper TISSUE SUBMITTED: Left upper lobe lung mass LUNG CULTURE RESULTS No results available. MICROSCOPIC DESCRIPTION Slides are reviewed. MICROSCOPIC DIAGNOSIS Left upper lobe lung mass, CT-guided core biopsy: Non-small cell carcinoma, favor squamous cell carcinoma. See comment. NOE:beni 06/10/18 Signed Tiburcio Blas 06/10/18 <signature on file> Performed By: #### FEDEUNG #### [facility] [address] [place] [address], [address] IMMUNOHISTOCHEMISTRY Observed: 06/08/2018 Status: F Source: [place] 12:00 AM [facility] REPOSITORY Patient: JIGNESH RAMIRES : 1950 (67/M) Acct Num: [id number] Phys: Cheryl Schaeffer ROLL FORMING SUPERVISOR Unit Num: [id number] Loc: CT Specimen: [id number] Received: 06/10/18 - 1036 Spec Type: IMMUNO TISSUES 1 TISSUES: Lung, NOS SPECIMEN INFORMATION: Tissue Source: Left upper lobe lung, biopsy Clinical Info: Mass, left upper Specimen Number: [id number] CPT code: 49921, 50301 x6 METHODOLOGY: Deparaffinized sections of prefer/formalin-fixed tissue or PAP/DQ stained slides are incubated with monoclonal/polyclonal antibodies/oligonucleotide probes. Localization is made via biotin free immunoperoxidase method. Appropriate controls are performed and reacted as expected. Results on target cell population are indicated in the following table: RESULTS: ANTIBODY / CLONE RESULT CK8 (28skzyZ87) positive CK7 (OV-TL12/30) negative Chromo (LK2H10) negative CD56 (123C3.D5) negative TTF-1 (8G7G3/1) negative P40 (BC28) positive CK5-6 (D5 AND 1684) positive These tests were developed and their performance characteristics determined by [facility]. They may not have been cleared or approved by the U.S. Food and Drug Administration. The FDA has determined that such clearance or approval is not necessary. INTERPRETATION: Left upper lobe lung, biopsy: Non-small cell carcinoma, favor squamous cell carcinoma. SJ:beni 06/10/18 PHYSICIAN AND INSTITUTION [place] [address] Signed Tiburcio Blas 06/10/18 <signature on file> Performed By: #### PIMM #### [facility] [address] [place] [address], [id number] PULMONARY VISIT REPORT Observed: 05/27/2018 Status: F Source: [place] 10:50 AM [facility] REPOSITORY Pulmonary Medicine of [address] [place] [address] OFFICE VISIT Date of Service: 05/25/18 MR#: [id number] Acct: [id number] Name: JIGNESH RAMIRES Rep #: [id number] : 1950 Provider: Cheryl Schaeffer Age/Sex: 67/M Location: [facility] Status: Signed Assessment AND Plan 1. Lung nodule R91.1 Plan New. Will discuss CT results with interventional radiologist to be sure that the nodule is appropriate and accessible for CT-guided biopsy. We will set up the CT-guided biopsy, including appropriate anticoagulation studies. 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) PVD (peripheral vascular disease) (Chronic) Stage 3 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) PND (paroxysmal nocturnal dyspnea) (Chronic) Hyperlipidemia (Chronic) SOB (shortness of breath) (Acute) 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 [facility] 05/13- HPI: continues with pain L ant-lat [...] so. 3. Known cardiomyopathy with CHF?Dr. Florian, artist's representative, recently doubled his Lasix dose. Patient notes [...] AM SHIRA Observed: 05/20/2018 Status: COMPLETED Source: [place] 10:40 AM [facility] REPOSITORY [facility] JIGNESH RAMIRES ([id number]) 1950 M NFR Date Time Provider Department 05/20/18 10:40 AM JOES MAURER III During your visit today, we [...] any family members present at today's visit. [facility] 05/13- HPI: continues with pain L ant-lat [...] so. 3. Known cardiomyopathy with CHF?Dr. Florian, artist's representative, recently doubled his Lasix dose. Patient notes [...] Allergies) Date Reviewed: 05/20/2018 Reviewed by: [place] ([facility]) ROGERIO Richards - Fully Assessed Reason for [...] Order(s):FECAL OCCULT BLOOD TEST [SQIFOBT] Order #: [id number] FUTURE folic acid 1 mg tabletTake 1 [...] * FLUTICASONE 50 MCG/ACTUATION * Use 1 Hudson in each nostril o* COMPOUNDED PRESCRIPTION Knee [...] hypertension (HCC)*INVALID FOR* Anemia [D64.9] INVALID FOR* nursing home current use of anticoagulant therapy *INVALID FOR* Gastroesophageal reflux disease [K21.9] INVALID FOR* Heavy alcohol use [Z78.9] INVALID FOR* Right rib fracture [S22.31XA] INVALID FOR* Acute respiratory failure (HCC) [J96.00] INVALID FOR* Coronary arteriosclerosis in southern ute artery [I25*INVALID FOR* Chronic obstructive pulmonary disease [...] 05/20/18 CNCO Observed: 05/18/2018 Status: COMPLETED Source: [place] 12:00 AM [facility] REPOSITORY Letter Text [facility] Controlled Substance Agreement Purpose The purpose of [...] may be given full access to the [facility] Records of narcotic administration. I agree to follow these guidelines and they have been fully explained to me. All of my questions and concerns regarding treatment have been answered. A copy of this document has been given to me. Pharmacy: Location: Phone number: Patient: Date: May 18, 2018 Jignesh Ramires [id number] Physician: Date: May 18, 2018 Jose Maurer [...] the lives of those receiving them in orthopaedic technologist use. Some people receive prolonged benefit and [...] causing an epidemic of deaths in the [place], lost or stolen medications will not be replaced. It is your responsibility to safeguard them. In addition [place] law requires certain procedures for the prescription of controlled substances which will be discussed. PROGRESS Observed: 05/17/2018 Status: COMPLETED Source: [place] 4:02 PM [facility] REPOSITORY O ID: [id number] Author: Lj Armendariz) JANIE Flynn Service: (none) Author Type: Registered [...] might be hidden SUMMARY: -Pt discharged from [facility] on 05/16. -Follow up appointment on05/20 -Medication [...] DISPOSITION: Home/Self Care - Lj Flynn RN, [facility] [phone] ? 12 LEAD ELECTROCARDIOGRAM Observed: 05/17/2018 Status: F Source: [place] 2:52 PM [facility] REPOSITORY [facility] Cardiovascular Services [address] [place] [address] 12 Lead EKG 05/13/182012 MR#: [id number] Acct: [id number] Name: JIGNESH RAMIRES Rep #: [id number] : 1950 67 From: Ben De Los Santos MD Attending Dr: Status: DEP Ordering Dr: Case Strauss MD Date: 05/13/18 [...] Abnormal ECG Confirmed by OLAF SUBRAMANIAN, BEN ([id number]), graphics editor YARIEL STILES ([id number]) on 05/17/2018 2:52:22 PM Referred By: ALEC Confirmed By:BEN DE LOS SANTOS MD 05/17/18 1452 Date Ben De Los Santos MD CC: Case Strauss MD; Jose Maurer III, MD Signed PROGRESS Observed: 05/17/2018 Status: COMPLETED Source: [place] 1:44 PM [facility] REPOSITORY HNO ID: [id number] Author: Gorge Jacobsen Pharmd Service: (none) Author [...] name and . Summary: -Pt discharged from [facility] on 05/16/2018. -Follow up appointment on 05/20/2018. -Medication review done Yes. -Admitted for Fall Patient was contacted by telephone, identified for pharmacist care from discharge call list, and gave consent to manage medications related to transitional care management pursuant to the consult agreement with the [facility]. Patient Concerns: Patient had no questions/concerns regarding [...] Psoriatic arthritis (HCC) 02/02/2014 - Pulmonary HTN ([facility]) - PVD (peripheral vascular disease) ([facility]) - Snoring - SOB (shortness of breath) - Stage 3 severe COPD by GOLD classification ([facility]) - Systolic CHF ([facility]) Social History Substance Use Topics - Smoking [...] mg/dL). ALLERGIES No Known Allergies Preferred pharmacy: [facility] [place] [address] - [address] [facility] - [phone] [facility] [place] [address] [facility] [place] [address] - [address] [facility] - [phone] [place] [address] [facility] [place], [place] [address] - [address] - [phone] [address] [facility] [address] [id number] [address] [address] [facility]. - [phone] [facility] [place] [address] [address] [facility]. [facility] [address] Medication Reconciliation: Legend: Stopped, New, Changed, Added [...] (FLONASE) 50 mcg/actuation nasal spray Use 1 Hudson in each nostril once daily. PRN furosemide [...] Phone 05/20/2018 10:40 AM JOSE MAURER III [facility] [place] [phone] Interventions Made: Medication counseling Time spent on patient: 30-45 minutes Gorge Jacobsen PharmD May 17, 2018 1:45 PM JEANETTE Observed: 05/17/2018 Status: COMPLETED Source: [place] 12:00 AM [facility] REPOSITORY Patient Outreach (PHRXRF) JIGNESH RAMIRES ([id number]) 1950 M NFR Date Time Provider Department 05/17/18 GORGE JACOBSEN PHARMD PHRXRF During your visit today, we recorded the [...] name and . Summary: -Pt discharged from [facility] on 05/16/2018. -Follow up appointment on 05/20/2018. -Medication review done Yes. -Admitted for Fall Patient was contacted by telephone, identified for pharmacist care from discharge call list, and gave consent to manage medications related to transitional care management pursuant to the consult agreement with the [facility]. Patient Concerns: Patient had no questions/concerns regarding [...] hypertension (HCC) 04/01/2017 - NICM (nonischemic cardiomyopathy) ([facility]) - Obstructive chronic bronchitis (HCC) 08/06/2010 - PMH - PAST MEDICAL HISTORY OF cystic acne - Psoriasis 02/02/2014 - Psoriatic arthritis ([facility]) 02/02/2014 - Pulmonary HTN ([facility]) - PVD (peripheral vascular disease) ([facility]) - Snoring - SOB (shortness of breath) - Stage 3 severe COPD by GOLD classification ([facility]) - Systolic CHF ([facility]) Social History Substance Use Topics - Smoking [...] mg/dL). ALLERGIES No Known Allergies Preferred pharmacy: [facility] [place] [address] - [address] [place] [address] - [phone] [place] [address] [address]- [facility] [place] [place] [address] - [address] [facility] - [phone] [address] [facility] [address] [facility]- [place] [address] - [address] - [phone] [address] [facility] [address] e- [id number] [address] - [address] - [phone] [address] [facility] [address] [address] [facility] [facility] [address] [facility] [address] Medication Reconciliation: Legend: Stopped, New, Changed, Added [...] (FLONASE) 50 mcg/actuation nasal spray Use 1 Hudson in each nostril once daily. PRN furosemide [...] Phone 05/20/2018 10:40 AM JOSE MAURER III [facility] [place] [phone] Interventions Made: Medication counseling Time spent on [...] * FLUTICASONE 50 MCG/ACTUATION * Use 1 Hudson in each nostril o* ATORVASTATIN 40 MG [...] this encounter FUROSEMIDE 40 MG TABLET >> Cuco CalvilloD 05/17/2018 3:05 PM >> EVE (PHARMACIST)GORGE May [...] hypertension (HCC)*INVALID FOR* Anemia [D64.9] INVALID FOR* nursing home current use of anticoagulant therapy *INVALID FOR* [...] 05/17/18 JEANETTE Observed: 05/17/2018 Status: COMPLETED Source: [place] 12:00 AM [facility] REPOSITORY Patient Outreach (FAMPWS) JESSICAJIGNESH ([id number]) 1950 M NFR Date Time Provider Department 05/17/18 LJ FLYNN (RN) PARVIZPWS During your visit today, we recorded the [...] discharged from on 05/16. -Follow up appointment -Medication review done- new meds inhalers/ diuretics- [...] DISCHARGE DISPOSITION: Home/Self Care Lj Flynn RN, [facility] [phone] ? 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 atorvastatin (LIPITOR) [...] bronchitis with chronic obstructive pulmonary disease (COPD) ([facility]) cholecalciferol (VITAMIN D) 1,000 unit tab tablet [...] O2 nasal cannula. Please fax results to [phone]. Diagnosis: Very severe COPD J44.9 Qty: 1 Each Refills: 0 Associated Diagnoses:COPD, very severe (HCC) !! COMPOUNDED PRESCRIPTION Please perform nocturnal pulse oximetry on 4 lpm O2 NC. Dx= Nocturnal Hypoxemia G47.34. Please fax results to [phone]. Qty: 1 Device Refills: 0 Associated Diagnoses:Nocturnal [...] patient. SIGNATURE: Veronica Chun MD PAGER/CONTACT #: [phone] DATE: May 16, 2018 TIME: 2:37 PM [...] CONSULT PROG Observed: 05/16/2018 Status: COMPLETED Source: [place] 8:40 AM CLINIC OTHER CAMPUS REPOSITORY O ID: [id number] Author: Gorge Stiles Service: Hospital Medicine Author Type: Physician Type: Consult Progress Note Filed: 05/16/2018 8:49 AM Note Text: DEPARTMENT OF HOSPITAL MEDICINE PROGRESS NOTE SERVICE DATE: 05/16/2018 SERVICE TIME: 8:41 AM Hospital Medicine/Primary Attending: Gorge Stiles MD NIGHT AND WEEKEND COVERAGE: After 7pm please page [phone] CHIEF COMPLAINT: Chest pain SUBJECTIVE: Feels OK. [...] Assessment/Plan Active Problems: CHF (congestive heart failure) ([facility]) POA: Yes Assessment AND Plan: euvolemic at [...] 16, 2018 TIME: 8:41 AM PAGER/CONTACT #: [phone] PROGRESS Observed: 05/16/2018 Status: COMPLETED Source: [place] 6:27 AM CLINIC OTHER CAMPUS REPOSITORY O ID: [id number] Author: Corie Kline Service: General Surgery Author [...] O2 Therapy: Nasal Cannula IANDO: Date 05/15/18 0700 - 05/16/18 0659 05/16/18 0700 - 05/17/18 0659 Shift 1582-8931 0682-5358 1074-9076 24 Hour Total 1318-2450 8144-6127 2084-3371 24 Hour Total I N T A [...] MDRD GFR Collected: 05/16/2018 Status: F Source: [employer] [facility] 5:00 AM [employer] REPOSITORY TYPE CODE TESTS RESULT OUT OF RANGE REFERENCE UNITS LAB GFRFN(LOINC >60mL/min/1.73m ) 2 eGFR >60 Result Comment: If the patient is , multiply the result by 1.210. Performed By: #### GFR #### [place] [address] HEMOGRAM/DIFF Collected: 05/16/2018 Status: F Source: [employer] [facility] 5:00 AM HEALTH SYSTEM REPOSITORY TYPE [...] LAB MONON(LOIN 0.30-0.82 thou/cmm C) Abs. High Schley 1.15 LAB EOSN(LOINC 0.04-0.54 thou/cmm ) Low Abs. Eosin 0.01 LAB BASON(LOIN 0.01-0.08 thou/cmm C) Abs. Baso 0.03 Performed By: #### CBCD1 #### [place] [address] PROTIME Collected: 05/16/2018 Status: F Source: [facility] 5:00 AM HEALTH SYSTEM REPOSITORY TYPE CODE TESTS RESULT OUT OF REFERENCE UNITS RANGE LAB PTI(LOINC) 9.7-13.0 sec Prothrombin High Time 15.0 LAB INR(LOINC) 0.90-1.30 INR High 1.50 Result Comment: Note: Reference Range Change Vitamin K Antagonist (VKA) Therapeutic Range: INR 2 to 3 (Target INR of 2.5) Note: For patients treated with VKA drugs, such as warfarin, the [place] [employer] 2012 Guideline recommends [...] Chest 2012; 141:7S-47S Aracelis RA, et al. [facility] 2017; 70: 252-289 Performed By: #### PT #### [place] [address] BASIC PANEL Collected: 05/16/2018 Status: F Source: [facility] 5:00 AM HEALTH SYSTEM REPOSITORY TYPE CODE [...] Gap 9 Performed By: #### P8 #### [place] [address] NURSING PROG Observed: 05/15/2018 Status: COMPLETED Source: [place] 8:13 PM [facility] OTHER [facility]AMP[facility] REPOSITORY HNO ID: [id number] Author: Nedra LaraRn) JANIE Gotti Service: Nursing Author Type: Registered Nurse Type: Nursing Progress Note Filed: 05/15/2018 8:13 PM Note Text: Pt scheduled to receive flu vaccine with HS meds, states that his pharmacist and home imaging tech said he should not take the vaccine until the end of May, after the completion of his current course of prednisone. Order d/c'd per surgery. CONSULT Observed: 05/15/2018 Status: COMPLETED Source: [place] 8:28 AM [facility]IN[facility] OTHER CAMPUS REPOSITORY HNO ID: [id number] Author: Gorge Stiles Service: Hospital Medicine Author Type: Physician Type: Consults Filed: 05/15/2018 8:42 AM Note Text: DEPARTMENT OF HOSPITAL MEDICINE INITIAL CONSULT SERVICE DATE: 05/15/2018 SERVICE TIME: 8:29 AM Primary Care Physician: Jose Maurer III MD NIGHT AND WEEKEND COVERAGE: From 7am - 7pm, please call bernardo self After 7pm, please call cross cover pager #[phone] REASON FOR CONSULT: med management REQUESTING PHYSICIAN: Juwan Subjective CHIEF COMPLAINT: Chest pain HPI: This [...] Stage 3 severe COPD by GOLD classification ([facility]) - Systolic CHF (HCC) PAST SURGICAL HISTORY Procedure Laterality Date - BASIC ICD SINGLE CHAMBER 01/13/2017 [facility] - COLONOSCOP W/ OR W/O [facility] SPEC 11/18/06 - COLONOSCOP W/ OR W/O [facility] SPEC 12/07/2014 Colonoscopy - ECHOCARDIOGRAM 08/28/2016 EF [...] (FLONASE) 50 mcg/actuation nasal spray Use 1 Hudson in each nostril once daily. Disp: Rfl: [...] under exertion and 2L at rest 24/7. Disp: Rfl: losartan (COZAAR) 50 mg tablet [...] O2 nasal cannula. Please fax results to [phone]. Diagnosis: Very severe COPD J44.9 Disp: 1 Each Rfl: 0 COMPOUNDED PRESCRIPTION Please perform nocturnal pulse oximetry on 4 lpm O2 NC. Dx= Nocturnal Hypoxemia G47.34. Please fax results to [phone]. Disp: 1 Device Rfl: 0 COMPOUNDED PRESCRIPTION [...] years and older) (PF) (FLUZONE HIGH DOSE 2017-) 0.5 mL INTRAMUSCULAR ONCE (IMMUNIZATION) ketorolac 15 [...] PULSES: Normal Lines, Drains, and Airways Line Peripheral 05/13/185 Admission to Hospital Short Right Antecubital 20 Gauge 1 day Peripheral 05/13/182145 Admission to Hospital Short Left Antecubital 18 Gauge 1 day DATA: Diagnostic tests reviewed for today's visit: Most recent labs and imaging results. Impression/Recommendations Active Problems: CHF (congestive heart failure) (HCC) [...] 15, 2018 TIME: 8:29 AM PAGER/CONTACT #: [phone] PROGRESS Observed: 05/15/2018 Status: COMPLETED Source: [place] 6:52 AM CLINIC OTHER CAMPUS REPOSITORY O ID: [id number] Author: Dhruv Cruz Service: General Surgery Author Type: Physician Type: Progress Notes Filed: 05/15/2018 6:02 PM Note Text: Trauma Surgery Progress Note SERVICE DATE: 05/15/2018 Trauma Service Pager: For questions or concerns Mon-Fri 6a-5p please page [phone]. After 5pm and on Weekends and Holidays, please page [phone] if in ICU or [phone] if on RNF. SUBJECTIVE: NAEON. Feeling well [...] kg/m? O2 Therapy: Nasal Cannula IANDO: Date 05/14/18 07 - 05/15/18 0659 05/15/18 07 - 05/16/18 0659 Shift 2313-0734 2471-2502 7502-7018 24 Hour Total 6707-4077 8146-7122 8069-9039 24 Hour Total I N T A [...] questions or concerns Mon-Fri 6a-5p please page [phone]. After 5pm and on Weekends and Holidays, [...] NSAID use Anticipate discharge to home tomorrow. [facility] medicine recs. A total of 40 minutes was spent in direct patient contact. Greater than 50% of the direct patient contact time was spent in counseling or coordination of care. Dhruv Cruz MD Department of General Surgery Section of Trauma, Surgery Critical Care, and Acute Care Surgery NURSING PROG Observed: 05/15/2018 Status: COMPLETED Source: [place] 6:25 AM CLINIC OTHER CAMPUS REPOSITORY HNO ID: [id number] Author: Michele (Rn) JANIE Romo Service: (none) Author Type: Registered Nurse Type: Nursing Progress Note Filed: 05/15/2018 6:35 AM Note Text: Nursing Progress Note Patient Name: Jignesh Ramires Patient Location: [place] [id number]-* Dr. Jones notified of pt's elevated BP throughout the morning that was unresponsive to pain medications. Dr. Jones to order prn BP med. This note was completed by: Michele Romo RN HEMOGRAM/DIFF Collected: 05/15/2018 Status: F Source: [facility] 3:12 AM HEALTH SYSTEM REPOSITORY TYPE CODE [...] LAB MONON(LOIN 0.30-0.82 thou/cmm C) Abs. High Schley 1.07 LAB EOSN(LOINC 0.04-0.54 thou/cmm ) Low Abs. Eosin 0.02 LAB BASON(LOIN 0.01-0.08 thou/cmm C) Abs. Baso 0.01 Performed By: #### CBCD1 #### [place] [address] PROTIME Collected: 05/15/2018 Status: F Source: [facility] 3:12 AM HEALTH SYSTEM REPOSITORY TYPE CODE TESTS RESULT OUT OF REFERENCE UNITS RANGE LAB PTI(LOINC) 9.7-13.0 sec Prothrombin High Time 15.2 LAB INR(LOINC) 0.90-1.30 INR High 1.58 Result Comment: Note: Reference Range Change Vitamin K Antagonist (VKA) Therapeutic Range: INR 2 to 3 (Target INR of 2.5) Note: For patients treated with VKA drugs, such as warfarin, the [employer] 2012 Guideline recommends [...] Chest 2012; 141:7S-47S Aracelis GARCIA et al. [facility] 2017; 70: 252-289 Performed By: #### PT #### [place] [id number] BASIC PANEL Collected: 05/15/2018 Status: F Source: [facility] 3:12 AM HEALTH SYSTEM REPOSITORY TYPE CODE [...] Gap 13 Performed By: #### P8 #### [address] [address] NURSING PROG Observed: 05/14/2018 Status: COMPLETED Source: [facility] 9:45 PM CLINIC OTHER CAMPUS REPOSITORY O ID: [id number] Author: Angeli (Rn) JANIE Kerr Service: (none) Author Type: Registered Nurse Type: Nursing Progress Note Filed: 05/14/2018 10:26 PM Note Text: Nursing Progress Note Patient Name: Jignesh Ramires Patient Location[place] [address] [address] RN notified Medical Student Maria M ([id number]) that patient's blood pressure was elevated at 176/78 when patient came to the floor. RN gave the patient his prescribed lasix. No new orders received. This note was completed by: Angeli Kerr RN CASE MGT INIT Observed: 05/14/2018 Status: COMPLETED Source: [facility] 4:01 PM CLINIC OTHER CAMPUS REPOSITORY HNO ID: [id number] Author: Darren (Rn) JANIE Fernandes Service: Care Management Author Type: Registered Nurse Type: Emil Romero Initial Assessment Filed: 05/14/2018 4:05 PM Note Text: CARE MANAGEMENT: ASSESSMENT AND DISCHARGE PLAN SERVICE DATE: 05/14/2018 SERVICE TIME: 1601 PRIMARY CARE PHYSICIAN: Jose Maurer III MD ADMISSION STATUS: Inpatient Needs Prior to Discharge: To Be Determined;Discharge Prescriptions;Pharmacy Bedside Delivery 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 No Advance Directive: Current Advance Directive: Health Care Power of Elder Assistant;Living Will In Chart: No Display Department Manager Attempted to Assist with AD Completion: Yes [...] PRN Has the Patient Been in a Correction Facility in the Past 30 days? 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 No Caregiver Needed Patient's transition needs and plan for meeting these needs: pharmacy CHOCO marroquin Does the patient have an acute stroke diagnosis, or has the patient had a stroke during this admission? No Medication Adherence: I am convinced of the importance of my prescription medication: Agree completely - 0 I worry that my prescription medication will do more harm than good to me Disagree completely - 0 I feel financially burdened by my [id number] expenses for my prescription medication: Disagree completely [...] Rx coverage, indep. 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 Therapy rec home at ok. Pt expresses no needs at this time. Anticipate home at ok. SIGNATURE: Darren Fernandes RN PATIENT NAME: Jignesh Ramires DATE: May 14, 2018 TIME: 4:01 PM PAGER/CONTACT #: [phone] PLAN OF CARE Observed: 05/14/2018 Status: COMPLETED Source: [facility] 12:15 PM CLINIC OTHER CAMPUS REPOSITORY O ID: [id number] Author: (Clinical Engineering Manager) Nedra Kc Service: Pharmacy Author Type: Pharmacist Type: Plan of Care Filed: 05/14/2018 12:23 PM Note Text: MEDICATION HISTORY AND MEDICATION RECONCILIATION Patient Name:Bashir Ramires : 1950 Source of history:Patient: Reliability of source: Appears reliable, clearly identified: Medication name, Medication dose, Medication route, Medication frequency, Timing of last dose and Indications, Family: - provided me with medication list, Pharmacy records: [facility] ([phone]) and [facility] Medication Nonadherence Identified: No barriers noted The above information represents the best possible medication history: Yes Reconciliation completed? Yes All FOAM FABRICATOR medications addressed by LIP Additional comments: - Verified medications with patient, , and [facility] pharmacy. [facility] pharmacy and [facility] pharmacy listed in patient's chart. Called both and not recent fill history, will remove from preferred pharmacy list. - Patient's warfarin is currently managed by Dr Florian at [facility]. Patient states that he takes warfarin because [...] Allergies: ALLERGIES No Known Allergies Preferred Pharmacy: [facility] Pharm[facility] ([phone]) Current FOAM FABRICATOR Medications: Prior to Admission medications as of [...] (FLONASE) 50 mcg/actuation nasal spray Use 1 Hudson in each nostril once daily. Yes atorvastatin [...] O2 nasal cannula. Please fax results to [phone]. Diagnosis: Very severe COPD J44.9 COMPOUNDED PRESCRIPTION Please perform nocturnal pulse oximetry on 4 lpm O2 NC. Dx= Nocturnal Hypoxemia G47.34. Please fax results to [phone]. COMPOUNDED PRESCRIPTION Please perform nocturnal oximetry on [...] exercise prescription and to monitor outcomes. NEDRA KC, (GANG VIBRATOR OPERATOR) May 14, 2018 12:15 PM THERAPY NT Observed: 05/14/2018 Status: COMPLETED Source: [facility] 11:22 AM CLINIC OTHER CAMPUS REPOSITORY HNO ID: [id number] Author: Felecia (Pt) Jasbir Service: Physical Therapy Author Type: Physical Therapist Type: Therapy (PT/OT/Speech/Resp) Filed: 05/14/2018 11:56 AM Note Text: Physical Therapy Evaluation SERVICE DATE: 05/14/2018 SERVICE TIME: 1045 to 1105 ROOM: [place] [address] Recommended Discharge Disposition: Home PT Recommendations to [...] gait and mobility-other Interventions Provided: Evaluation;Gait Training (53066) $ Evaluation-Low (03526) Billed Units: 1 unit Gait Training (70555) Treatment Minutes: 3 0 units Skilled Intervention(s): Instruction in use of equipment, cues for sequence and pattern Total Timed Code Treatment Minutes: 3 Total Treatment Time (minutes): 20 FUNCTIONAL G CODE: PT 6 Clicks Score: 20 (05/14/18 1045) Mobility: Walking and Moving Around Current Status (G8978): CJ (05/14/18 1045) Mobility: Walking and Moving Around Goal Status (G8979): CI (05/14/18 1045) Based on clinical assessment and the score [...] Patient Lives With: Significant Other Assistance Available: daytime caregiver Entry To Home: Stairs Number Of Stairs [...] THERAPY NT Observed: 05/14/2018 Status: COMPLETED Source: [facility] 11:19 AM CLINIC OTHER CAMPUS REPOSITORY HNO ID: [id number] Author: Doris Cobian/Salvador Fountain Service: Occupational Therapy Author Type: Occupational Therapist Type: Therapy (PT/OT/Speech/Resp) Filed: 05/14/2018 11:21 AM Note Text: Occupational Therapy Evaluation SERVICE DATE: 05/14/2018 SERVICE TIME: 1050 to 1107 ROOM: [id number] Recommended Discharge Disposition: Home Recommended Discharge Disposition [...] living (ADL) Interventions Provided: Evaluation $ Evaluation-Low (33012) Billed Units: 1 unit Total Treatment Time (minutes): 17 FUNCTIONAL G CODE: OT 6 Clicks Score: 21 (05/14/18 105) Self Care Current Status (G8987): CJ (05/14/18 1050) Self Care Goal Status (G8988): CI (05/14/181049) Based on clinical assessment and the score [...] Patient Lives With: Significant Other Assistance Available: daytime caregiver Entry To Home: Stairs Number Of Stairs [...] complete details for this therapy evaluation/treatment. SIGNATURE: GARRETT Gross/Brown PATIENT NAME: Jignesh Ramires DATE: May 14, 2018 TIME: 11:19 AM CHEST 2 VIEWS Observed: 05/14/2018 Status: F Source: [facility] 8:06 AM [facility] SYSTEM REPOSITORY Performed at [facility] APPROVED BY: Sukhdeep Fernandez MD EXAMINATION: CHEST RADIOGRAPH (2 VIEW FRONTAL & LATERAL) CLINICAL HISTORY: Chest pain. Patient fell. MQ: XC2_5 Comparison: 01/14/2017 RESULT: Lines, tubes, and devices: Left-sided cardiac pacing device with lead in stable position. Overlying active directory architect leads. Lungs and pleura: Emphysematous changes seen at the lung bases. The lungs are otherwise clear. No pneumothorax, infiltrate, or effusion Cardiomediastinal silhouette: Normal cardiomediastinal silhouette. Other: No obvious rib abnormality. IMPRESSION: No acute radiographic abnormality. MAGNESIUM BLOOD Collected: 05/14/2018 Status: F Source: [facility] 6:10 AM HEALTH SYSTEM REPOSITORY TYPE CODE TESTS RESULT OUT OF REFERENCE UNITS RANGE LAB MAG(LOINC) 1.6-2.6 mg/dL Low Magnesium Blood 1.2 Performed By: #### MAG #### [facility] [address] [place], [place] [address] BLD GAS ART AND Collected: 05/14/2018 Status: F Source: [facility] ION CA 4:30 AM HEALTH SYSTEM REPOSITORY [...] Ca,PH7.4 4.24 Performed By: #### ABGIG #### [facility] [address] [place] [id number] HEMOGRAM/DIFF Collected: 05/14/2018 Status: F Source: [facility] 4:30 AM HEALTH SYSTEM REPOSITORY TYPE CODE [...] LAB MONON(LOIN 0.30-0.82 thou/cmm C) Abs. High Schley 1.34 LAB EOSN(LOINC 0.04-0.54 thou/cmm ) Low Abs. Eosin 0.01 LAB BASON(LOIN 0.01-0.08 thou/cmm C) Abs. Baso 0.03 Result Comment: Smear scanned; tech agrees with automated differential Performed By: #### CBCD1 #### [place] [address] BASIC PANEL Collected: 05/14/2018 Status: F Source: [facility] 4:30 AM HEALTH SYSTEM REPOSITORY TYPE CODE [...] Gap 16 Performed By: #### P8 #### [facility] [address] [place] [address] PHOSPHORUS BLOOD Collected: 05/14/2018 Status: F Source: [facility] 4:30 AM HEALTH SYSTEM REPOSITORY TYPE CODE TESTS RESULT OUT OF REFERENCE UNITS RANGE LAB PHOS(LOINC 2.5-4.9 mg/dL ) Phosphorus Blood 4.0 Performed By: #### PHOS #### [facility] [address] [place] [id number] PROTIME Collected: 05/14/2018 Status: F Source: [facility] 4:30 AM HEALTH SYSTEM REPOSITORY TYPE CODE TESTS RESULT OUT OF REFERENCE UNITS RANGE LAB PTI(LOINC) 9.7-13.0 sec Prothrombin High Time 13.6 LAB INR(LOINC) 0.90-1.30 INR High 1.34 Result Comment: Note: Reference Range Change Vitamin K Antagonist (VKA) Therapeutic Range: INR 2 to 3 (Target INR of 2.5) Note: For patients treated with VKA drugs, such as warfarin, the [place] [employer] 2012 Guideline recommends [...] GH, et al. Chest 2012; 141:7S-47S Aracelis GARCIA et al. [facility] 2017; 70: 252-289 Performed By: #### PT #### [facility] [address] [place] [id number] HISTORY PHYSICAL Observed: 05/14/2018 Status: COMPLETED Source: [facility] 12:02 AM CLINIC OTHER CAMPUS REPOSITORY O ID: [id number] Author: Lashawn Echeverria Service: Trauma Author Type: [...] HTN (HCC) - PVD (peripheral vascular disease) ([facility]) - Snoring - SOB (shortness of breath) - Stage 3 severe COPD by GOLD classification ([facility]) - Systolic CHF (HCC) PAST SURGICAL HISTORY Procedure Laterality Date - BASIC ICD SINGLE CHAMBER 01/13/2017 [facility] - COLONOSCOP W/ OR W/O [facility] SPEC 11/18/06 - COLONOSCOP W/ OR W/O [facility] SPEC 12/07/2014 Colonoscopy - ECHOCARDIOGRAM 08/28/2016 EF [...] Pain control: tylenol, roxicodone, morphine prn - Haines in posterior scalp, d/c 05/20 CV: - [...] when transferred to floor Discussed with Dr. Juwan MD Trauma Service Pager: For questions or concerns Thu-Thu- please page [phone]. After 5pm and on Weekends and Holidays, [...] EMERGENCY DEPARTMENT Observed: 05/13/2018 Status: F Source: [facility] SUMMARY 11:57 PM [facility] REPOSITORY [facility] Medical Records Department [address] [place] [address] Emergency Department Summary 05/13/182034 MR#: [id number] Acct: [id number] Name: JIGNESH RAMIRES Rep #: [id number] : 1950 67 From: Case Strauss MD PCP: Jose Maurer III, MD Status: DEP ER ADDENDUM by Case Strauss MD on 05/13/18 at 0055 Our systems design engineer sent the updated chest CT read to [facility] and called to confirm receipt of the update. 05/13/18 5757 Date Case Strauss MD cc: Jose Maurer III, MD * Signed ADDENDUM by Case Strauss MD on 09/27/18 at 2353 Addendum added to clarify that the patient was transferred with images and printed interpretations from radiology. 05/13/18 7933 Date Case Strauss MD cc: Jose Maurer [...] catheter placed. He was placed on a active directory architect. CT head and neck showed chronic changes. [...] Treatment Plan: As above Disposition: Transfer to [facility] Impression: 1. Fall 2. Scalp laceration 3. Multiple abrasions This note was generated with PatientKeeper dictation software. It may contain incorrect words, [...] your Primary Care Provider. Call [facility] ([phone]) or report to the closest Emergency Room. Call 911 if necessary. 05/13/18 234 <Electronically signed by Case Strauss MD> Date Case Strauss MD Cosigner Signature (If Indicated): Date CC: Jose Maurer III, MD Observed: 05/13/2018 Status: F Source: [facility] MRSA SCREEN 11:30 PM HEALTH SYSTEM REPOSITORY Test performed at [facility] No MRSA detected. Performed By: #### MRSA #### [facility] [address] [place] [address] ED NOTE Observed: 05/13/2018 Status: COMPLETED Source: [facility] 10:58 PM [facility] OTHER CAMPUS REPOSITORY HNO ID: [id number] Author: Stephanie (Rn) JANIE Atwood Service: Emergency Medicine Author Type: Registered Nurse Type: ED Notes Filed: 05/13/2018 10:59 PM Note Text: Dr. Mcelroy made aware of Pt temp. Pt was given 4 warm blankets and temperature in room was turned up as high as thermostat would allow. ED PROV NOTE Observed: 05/13/2018 Status: COMPLETED Source: [facility] 10:06 PM [facility] OTHER [place] REPOSITORY HNO ID: [id number] Author: Sameera Gary MD Service: Emergency Medicine Author Type: Physician Type: ED Provider Notes Filed: 05/15/2018 9:46 AM Note Text: ED Provider Note Patient Name: Jignesh Ramires SERVICE DATE: 05/13/18 History Patient presents with: Trauma Evaulation: Pt fell down flight of stairs after drinking 5 beers. Pt was found unresponsive. EMS began ventilating pt and pt came around. Pt transferred from surry ED. This is a 67-year-old male with past medical history significant for CHF cardiomyopathy acute on chronic respiratory failure hypertension who [facility] for trauma surgery evaluation. Patient was [...] L of normal saline and transferred to [facility] for further evaluation and management given the [...] hypertension (HCC) 04/01/2017 - NICM (nonischemic cardiomyopathy) ([facility]) - Obstructive chronic bronchitis (HCC) 08/06/2010 - PMH - PAST MEDICAL HISTORY OF cystic acne - Psoriasis 02/02/2014 - Psoriatic arthritis (HCC) 02/02/2014 - Pulmonary HTN (HCC) - PVD (peripheral vascular disease) ([facility]) - Snoring - SOB (shortness of breath) - Stage 3 severe COPD by GOLD classification ([facility]) - Systolic CHF (HCC) PAST SURGICAL HISTORY Procedure Laterality Date - BASIC ICD SINGLE CHAMBER [facility]O [facility] SPEC 11/18/06 - COLONOSCOP W/ OR W/O [facility] SPEC 12/07/2014 Colonoscopy - ECHOCARDIOGRAM 08/28/2016 EF [...] rubs or gallops Lungs:wheezing to bilateral lung booker without rales or rhonchi, no flail chest, [...] ED NOTE Observed: 05/13/2018 Status: COMPLETED Source: [place] 9:49 PM [facility] REPOSITORY HNO ID: [id number] Author: Stephanie LaraRn) JANIE Atwood Service: Emergency Medicine Author Type: Registered Nurse Type: ED Notes Filed: 05/13/2018 9:49 PM Note Text: Pt sat up by Dr. Mcelroy ED NOTE Observed: 05/13/2018 Status: COMPLETED Source: [place] 9:48 PM [facility] REPOSITORY HNO ID: [id number] Author: Stephanie LaraRn) JANIE Atwood Service: Emergency Medicine Author Type: Registered Nurse Type: ED Notes Filed: 05/13/2018 9:48 PM Note Text: Patient's identity verified by patient stating name, Patient's identity verified by patient stating date, Patient's identity verified by hospital ID bracelet. Patient placed on active directory architect, patient placed on non-invasive blood pressure monitor, patient placed on continuous pulse oximetry. Alarms set and reviewed, patient tolerating monitoring. ED NOTE Observed: 05/13/2018 Status: COMPLETED Source: [place] 9:35 PM [facility] REPOSITORY HNO ID: [id number] Author: Case LaraRn) JANIE Grover Service: (none) Author Type: Registered Nurse Type: ED Notes Filed: 05/13/2018 9:35 PM Note Text: Bed: 20-ED Expected date: Expected time: Means of arrival: Comments: [facility] Trauma C/S URINE DRUG SCREEN Collected: 05/13/2018 Status: F Source: [facility] (VISTA) 8:20 PM [facility] REPOSITORY TYPE CODE TESTS RESULT OUT OF [...] Normal NEGATIVE Performed By: #### L505.5000 #### [facility] [address] [place], [place], [address] TYPE AND SCREEN Collected: 05/13/2018 Status: F Source: [place] 8:10 PM [facility] REPOSITORY Order Comment: Reason for Type AND Screen/Red Cells: TRAUMA TYPE CODE TESTS RESULT OUT OF RANGE REFERENCE UNITS LAB B10.0800 O Normal BLOOD TYPE GEL NEGATIVE LAB B100.4000 Normal Antibody NEGATIVE Screen Performed By: #### B101.7450 #### [facility] [address], [place], [address] BRAIN/HEAD WITHOUT Observed: 05/13/2018 Status: F Source: [place] CONTRAST 7:54 PM [facility] REPOSITORY [facility] Imaging Services [address] [place] [address] Brain/Head without Contrast MR#: [id number] Acct: [id number] Name: JIGNESH RAMIRES Rep #: [id number] : 1950 M 67 From: Bony Myers DO PCP: Jose Maurer III, MD Status: PRE ER Study: Brain/Head without Contrast Date of Exam: 05/13/18 Exam# [id number] Ordering Dr: Case Strauss MD STUDY: CT [...] Case Strauss MD; Jose Maurer III, MD Newspaper Editor Managing: Signed SPINE CERVICAL Observed: 05/13/2018 Status: F Source: [facility] WITHOUT CONTRAS 7:54 PM [facility] REPOSITORY [facility] Imaging Services [address] [place], [place] [address] [address] Spine Cervical without Contras MR#: [id number] Acct: [id number] Name: JIGNESH RAMIRES Rep #: [id number] : 1950 M 67 From: Bony Myers DO PCP: Jose Maurer III, MD Status: PRE ER Study: Spine Cervical without Contras Date of Exam: 05/13/18 Exam# [id number] Ordering Dr: Case Strauss MD STUDY: CT [...] Case Strauss MD; Jose Maurer III, MD Newspaper Editor Managing: Signed CHEST WITH CONTRAST Observed: 05/13/2018 Status: F Source: [place] 7:54 PM [facility] REPOSITORY [facility] Imaging Services [address] [place] [address] Chest WITH Contrast MR#: [id number] Acct: [id number] Name: JIGNESH RAMIRES Rep #: [id number] : 1950 M 67 From: Bony Myers DO PCP: Jose Maurer III, MD Status: DEP ER Study: Chest WITH Contrast Date of Exam: 05/13/18 Exam# [id number] Ordering Dr: Case Strauss MD ADDENDUM by Bony Myers D.O. on 05/13/18 at 2111 ADDENDUM In addition, there are small nondisplaced left anterior third, fourth, fifth, sixth rib fractures. Electronically Signed: Bony Myers DO at 21:12 EDT Tel , Service support , 05/13/182111 Date cc: Case Strauss MD; Jose Maurer III, MD * Signed ADDENDUM by Bony Myers D.O. on 05/13/[address]/Chest WITH Contrast 05/13/182118 Date cc: Case [...] Case Strauss MD; Jose Maurer III, MD Newspaper Editor Managing: Signed ABDOMEN/PELVIS W IV CONT Observed: 05/13/2018 Status: F Source: [facility] 7:54 PM [facility] REPOSITORY [facility] Imaging Services [address] [place] [address] Abdomen/Pelvis W IV Cont ONLY MR#: [id number] Acct: [id number] Name: JIGNESH RAMIRES Rep #: [id number] : 1950 M 67 From: Bony Myers DO PCP: Jose Maurer III, MD Status: REG ER Study: Abdomen/Pelvis W IV Cont ONLY Date of Exam: 05/13/18 Exam# [id number] Ordering Dr: Case Strauss MD STUDY: CT [...] Case Strauss MD; Jose Maurer III, MD Newspaper Editor Managing: Signed CBC W/DIFF, AUTOMATED Collected: 05/13/2018 Status: F Source: [facility] 7:49 PM [facility] REPOSITORY TYPE CODE TESTS RESULT OUT OF [...] Lymph 1.56 Performed By: #### L100.0100 #### [facility] [address], [place], [id number] PROTHROMBIN TIME W/INR Collected: 05/13/2018 Status: F Source: [place] 7:49 PM [facility] REPOSITORY TYPE CODE TESTS RESULT OUT OF RANGE REFERENCE UNITS LAB L300.4150 11.7-14.9 SECONDS High PROTIME 15.8 LAB L300.4200 Normal INR 1.3 Performed By: #### L300.3900, L300.4310 #### [facility] [address] [facility]. [place], [place], [id number] PARTIAL THROMBOPLAST Collected: 05/13/2018 Status: F Source: [place] TIME 7:49 PM [facility] REPOSITORY TYPE CODE TESTS RESULT OUT OF RANGE REFERENCE UNITS LAB L300.4310 24.1-36.2 Seconds Normal PTT 32.1 Performed By: #### L300.3900, L300.4310 #### [facility] [address] [place], [address] BASIC METABOLIC Collected: 05/13/2018 Status: F Source: [facility] PROFILE (BMP) 7:49 PM [facility] REPOSITORY TYPE CODE TESTS RESULT OUT OF [...] GAP 11 Performed By: #### L500.2500 #### [facility] [address] [place], [address] ALCOHOL, BLOOD Collected: 05/13/2018 Status: F Source: [facility] (MEDICAL)-SERUM 7:49 PM [facility] REPOSITORY TYPE CODE TESTS RESULT OUT OF [...] fatal coma Performed By: #### L501.9100 #### [facility] [address] [place], [address] BEDSIDE GLUCOSE Collected: 05/13/2018 Status: F Source: [place] 7:46 PM [facility] REPOSITORY TYPE CODE TESTS RESULT OUT OF REFERENCE UNITS RANGE LAB L501.080 70-110 mg/dL High BEDSIDE GLU 126 Result Comment: MANAGEMENT OF PATIENT CARE PER NURSING PROTOCOL Performed By: #### L501.080 #### [facility] Point of Care [address] [facility] [place] [address] PULMONARY VISIT REPORT Observed: 05/13/2018 Status: F Source: [place] 9:42 AM [facility] REPOSITORY [facility] 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 He denies experiencing chest discomfort. Patient is planning 2 weeks vacation in [place] next week. Exercises daily at [facility] first thing of the day. He states that it makes him feel better, and he believes it is extending his life, and fights off his chronic illness. 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) PVD (peripheral vascular disease) (Chronic) Stage 3 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) PND (paroxysmal nocturnal dyspnea) (Chronic) Hyperlipidemia (Chronic) SOB (shortness of breath) (Acute) 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 [place], [place], [address] PROTHROMBIN TIME W/INR Collected: 05/04/2018 Status: F Source: CLARION 6:48 AM [facility] REPOSITORY TYPE CODE TESTS RESULT OUT OF RANGE REFERENCE UNITS LAB L300.4150 11.7-14.9 SECONDS High PROTIME 23.3 LAB L300.4200 Normal INR 2.1 Performed By: #### L300.3900 #### [facility] [address] [place], [place], [address] CARDIOLOGY VISIT Observed: 05/03/2018 Status: F Source: CLAR[place] REPORT 11:58 AM [facility] REPOSITORY [facility] [address] [place] [address] OFFICE VISIT Date of Service: 05/03/18 MR#: [id number] Acct: [id number] Name: JIGNESH RAMIRES Rep #: [id number] : 1950 Provider: Case Florian MD Age/Sex: 67/M [place] [facility] [place]: Signed HPI HPI Chief Complaint: Routine f/u Details: Referring physician: Dr. Maurer Mr. Ramires is a very pleasant 67-year-old nondiabetic gentleman, with COPD, hypertension, hypercholesterolemia, who presented with new onset heart failure on 08/29/16 to [facility]. 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 CALLED TO [facility] 04/20/18 0839 Shelia Robbins. RESULTS READ BACK BY [facility] . TYPE CODE TESTS RESULT OUT OF REFERENCE UNITS RANGE LAB L300.4150 11.7-14.9 SECONDS High PROTIME 37.4 LAB L300.4200 High alert INR 3.8 Performed By: #### L300.3900 #### [facility] [address] [place] [address]. [place], [address] PROGRESS Observed: 04/06/2018 Status: COMPLETED Source: [place] 7:22 PM [facility] REPOSITORY HNO ID: [id number] Author: Jose Maurer III Service: (none) Author Type: Physician Type: Progress Notes Filed: 04/06/2018 7:22 PM Note Text: Jamil, The bad LDL cholesterol is well controlled. I recommend healthy diet and regular exercise. Jose Maurer III, MD, FAAFP PROTHROMBIN TIME W/INR Collected: 04/06/2018 Status: F Source: [place] 6:55 AM [facility] REPOSITORY TYPE CODE TESTS RESULT OUT OF RANGE REFERENCE UNITS LAB L300.4150 11.7-14.9 SECONDS High PROTIME 33.5 LAB L300.4200 Normal INR 3.3 Performed By: #### L300.3900 #### [facility] [address], [place], [id number] LIVER PROFILE Collected: 04/06/2018 Status: F Source: CLARION 6:51 AM [facility] REPOSITORY TYPE CODE TESTS RESULT OUT OF [...] 0.25 Performed By: #### L500.3400, L500.4100 #### [facility] [address] [facility]. [place], [place], [id number] LIPID PROFILE Collected: 04/06/2018 Status: F Source: CLARION 6:51 [facility] REPOSITORY TYPE CODE TESTS RESULT OUT OF [...] 17 Performed By: #### L500.3400, L500.4100 #### [facility] [address] [place], [address] PULMONARY VISIT REPORT Observed: 03/30/2018 Status: F Source: CLARION 9:14 AM [facility] REPOSITORY [facility] [address] [place] [address] OFFICE VISIT Date of Service: 03/30/18 MR#: [id number] Acct: [id number] Name: JIGNESH RAMIRES Rep #: [id number] : 1950 Provider: Cheryl Schaeffer Age/Sex: 67/M Location: [facility] [place].[facility] Status: Signed Assessment AND Plan [...] Other Medications New: Follow Up 3 Months ([facility]) HPI 3 M FU: Chief Complaint: Shortness [...] 36-49 <35 Distance walked in 6 min >[phone] 492-819 <149 MMRC dyspnea scale* 0-1 2 3 4 BMI >21 <21 LEBRON Index Score 0-2 2% 6% 19% 3-4 2% 8% 32% 4-6 2% 14% 40% 7-10 5% 31% 80% MMR SCALE Grade Degree of breathlessness related to activities 0 Not troubled by breathlessness except on strenuous exercise Intake Vital Signs03/30/18 Height 5 ft 9 in 03/30/18 Weight: 153 lb 4 oz Intake Visit Reasons: 3 M FU [facility] Vendor: Tabatha Accompanied by: Self Allergies No Known Allergies Allergy (Verified 03/30/18 07:18) Medications Aclidinium Redgranite [Tudorza Pressair] 400 mcg IH BID 08/27/16 [...] PRN #18 g 03/30/18 [Rx Confirmed 03/30/18] PFS Medical History Left ventricular thrombus (Acute) Implantable cardioverter-defibrillator (ICD) in situ (Chronic) Nonischemic cardiomyopathy (Chronic) Severe left ventricular systolic dysfunction (Chronic) Dilated cardiomyopathy (Chronic) 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) Chronic respiratory failure with hypoxia and hypercapnia (Chronic) PVD (peripheral vascular disease) (Chronic) Stage 3 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) PND (paroxysmal nocturnal dyspnea) (Chronic) Hyperlipidemia (Chronic) SOB (shortness of breath) (Acute) nursing home current use of anticoagulant (Chronic) COPD (chronic [...] 03/30/2018 Status: F Source: [place] 7:13 AM [facility] REPOSITORY TYPE CODE TESTS RESULT OUT OF RANGE REFERENCE UNITS LAB L300.4150 11.7-14.9 SECONDS High PROTIME 32.7 LAB L300.4200 Normal INR 3.2 Performed By: #### L300.3900 #### [facility] [place], [address] PACEMAKER CHECK Observed: 03/25/2018 Status: F Source: CLARION 4:02 PM [facility] REPOSITORY [facility] [address] [place] [address] Pacemaker Check Date of Service: 03/24/18 1312 MR#: [id number] Acct: [id number] Name: JIGNESH RAMIRES Rep #: [id number] : 1950 From: Shanelle August Age/Sex: 67/M [place] [facility] [place]: Signed Billing Codes ICD Device Billing: ICD Dev Interrogate (Rmt) 03/24/18 1315 <Electronically signed by Shanelle August > Date Shanelle August 03/25/18 1602<Electronically signed by Case Florian MD> Cosign Signature: Date (if applicable) Case Florian MD CC: PROTHROMBIN TIME W/INR Collected: 03/23/2018 Status: F Source: CLARION 6:54 AM [facility] REPOSITORY TYPE CODE TESTS RESULT OUT OF RANGE REFERENCE UNITS LAB L300.4150 11.7-14.9 SECONDS High PROTIME 30.5 LAB L300.4200 Normal INR 2.9 Performed By: #### L300.3900 #### [facility] [address] [place], [address] PROTHROMBIN TIME W/INR Collected: 03/18/2018 Status: F Source: CLARION 6:58 AM [facility] REPOSITORY TYPE CODE TESTS RESULT OUT OF REFERENCE UNITS RANGE LAB L300.4150 11.7-14.9 SECONDS High PROTIME 36.0 LAB L300.4200 High alert INR 3.6 Result Comment: CRITICAL VALUE VERIFIED. CALLED TO YARELI EAGLE 03/18/18911 Janay Kerns. RESULTS READ BACK BY SAME . Performed By: #### L300.3900 #### [facility] [address] [place], [address] PULMONARY VISIT REPORT Observed: 03/16/2018 Status: F Source: ROCIO 9:22 AM [facility] REPOSITORY [facility] [address] [place], [place] [address] OFFICE VISIT Date of Service: 03/16/18 MR#: [id number] Acct: [id number] Name: JIGNESH RAMIRES Rep #: [id number] : 1950 Provider: Cheryl Schaeffer Age/Sex: 67/M Location: [facility] [place].[facility] Status: Signed Assessment AND Plan [...] each use. He has not tried any agws-cyz-ijjhdqc medications. Current home oxygen use is 3 LPM at all times, 4 LPM on ambulation. 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) Chronic respiratory failure with hypoxia and hypercapnia (Chronic) PVD (peripheral vascular disease) (Chronic) Stage 3 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) PND (paroxysmal nocturnal dyspnea) (Chronic) Hyperlipidemia (Chronic) SOB (shortness of breath) (Acute) nursing home current use of anticoagulant (Chronic) COPD (chronic [...] R06.02 03/16/18 0922 <Electronically signed by Cheryl JOHNSTON> Date Cheryl Witt Signature: Date (if applicable) CC: Jose Maurer III, MD PROTHROMBIN TIME W/INR Collected: 03/09/2018 Status: F Source: CLARION 6:57 AM [facility] REPOSITORY Order Comment: Comments: STANDING ORDER Comments: STANDING ORDER TYPE CODE TESTS RESULT OUT OF RANGE REFERENCE UNITS LAB L300.4150 11.7-14.9 SECONDS High PROTIME 31.6 LAB L300.4200 Normal INR 3.0 Performed By: #### L300.3900 #### [facility] [address] [place], [place], [address] PROTHROMBIN TIME W/INR Collected: 02/23/2018 Status: F Source: CLARION 6:57 AM [facility] REPOSITORY TYPE CODE TESTS RESULT OUT OF RANGE REFERENCE UNITS LAB L300.4150 11.7-14.9 SECONDS High PROTIME 22.0 LAB L300.4200 Normal INR 1.9 Performed By: #### L300.3900 #### [facility] [address] [facility]. [place], [place], [address] URGENT CARE VISIT Observed: 02/10/2018 Status: F Source: [place] REPORT 7:23 AM [facility] REPOSITORY [facility] [address] [place] [address] [address] [place] [address] OFFICE VISIT Date of Service: 02/10/18 MR#: [id number] Acct: [id number] Name: JIGNESH RAMIRES Rep #: [id number] : 1950 Provider: Shane COLLINS Age/Sex: 67/M Location: [facility] [place] Status: Signed Intake Vital Signs02/10/18 Height 5 ft 9 in 02/10/18 Weight: 159 lb 02/10/18 Body Mass Index (BMI) 23.4 02/10/18 Blood Pressure 124/72 Intake Visit Reasons: RT ELBOW LACERATION Chief Complaint: R elbow skin tear Jack Spinner Required: No Is patient in pain?: No Allergies No Known Allergies Allergy (Verified 02/10/18 06:26) Medications Aclidinium Redgranite [Tudorza Pressair] 400 mcg IH BID 08/27/16 [...] Dilated cardiomyopathy (Chronic) 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 This note was generated with PatientKeeper dictation software. It may contain incorrect words, spelling, and punctuation that were not noted in checking the note before signing. Coding Level of Care Code Off vis,est,level 2 Diagnoses Laceration of right elbow without complication S51.011A 02/10/18 0723 <Electronically signed by Shane COLLINS> Date Shane COLLINS Cosigner Signature: Date (if applicable) CC: PROTHROMBIN TIME W/INR Collected: 02/09/2018 Status: F Source: ROCIO 6:43 AM [facility] REPOSITORY TYPE CODE TESTS RESULT OUT OF RANGE REFERENCE UNITS LAB L300.4150 11.7-14.9 SECONDS High PROTIME 19.4 LAB L300.4200 Normal INR 1.6 Performed By: #### L300.3900 #### [facility] [address] [place], [address] PROTHROMBIN TIME W/INR Collected: 02/02/2018 Status: F Source: CLARION 6:56 AM [facility] REPOSITORY TYPE CODE TESTS RESULT OUT OF RANGE REFERENCE UNITS LAB L300.4150 11.7-14.9 SECONDS High PROTIME 17.7 LAB L300.4200 Normal INR 1.5 Performed By: #### L300.3900 #### [facility] [address] [place], [address] PROTHROMBIN TIME W/INR Collected: 01/21/2018 Status: F Source: CLARION 7:00 AM [facility] REPOSITORY Order Comment: RESULT(S) PREVIOUSLY REPORTED ON MANUAL REQUISITION DURING DOWNTIME. TYPE CODE TESTS RESULT OUT OF RANGE REFERENCE UNITS LAB L300.4150 11.7-14.9 SECONDS High PROTIME 19.5 LAB L300.4200 Normal INR 1.6 Performed By: #### L300.3900 #### [facility] [facility] [place], [address] PROTHROMBIN TIME W/INR Collected: 01/14/2018 Status: F Source: CLARION 6:40 AM [facility] REPOSITORY TYPE CODE TESTS RESULT OUT OF RANGE REFERENCE UNITS LAB L300.4150 11.7-14.9 SECONDS Normal PROTIME 14.0 LAB L300.4200 Normal INR 1.1 Performed By: #### L300.3900 #### [facility] [place], [address] PROTHROMBIN TIME W/INR Collected: 01/05/2018 Status: F Source: CLARION 7:13 AM [facility] REPOSITORY TYPE CODE TESTS RESULT OUT OF RANGE REFERENCE UNITS LAB L300.4150 11.7-14.9 SECONDS High PROTIME 15.7 LAB L300.4200 Normal INR 1.3 Performed By: #### L300.3900 #### [facility] [place], [address] HH, HEMOGLOBIN AND Collected: 01/05/2018 Status: F Source: ROCIO HEMATOCRIT 7:13 AM [facility] REPOSITORY TYPE CODE TESTS RESULT OUT OF RANGE REFERENCE UNITS LAB L100.1300 13.0-16.5 g/dl Low HGB 11.3 LAB L100.1400 40-54 % Low HCT 32.8 Performed By: #### L100.0600 #### [facility] [address] [place], [address] PACEMAKER CHECK Observed: 01/04/2018 Status: F Source: [place] 12:20 PM [facility] REPOSITORY [facility] [address] [place] [address] Pacemaker Check Date of Service: 12/21/17 1119 MR#: [id number] Acct: [id number] Name: JIGNESH RAMIRES Rep #: [id number] : 1950 From: Shanelle August Age/Sex: 66/M Location: [facility] [place] Status: Signed Comments Summary Comments: Remote Single Chamber ICD Evaluation: See attached scanned remote Latitude report. Interrogation shows no VT/VF episodes since 03/01/17. Presenting rhythm shows NSR @ 90 bpm. HEAD OF INSIGHT=0%. Estimated battery life 12 yrs. Device and battery measurements remain stable. Pt notified remote transmission received and next f/u appt scheduled for in 3 mos. Device Device Date Interviewed: 12/21/17 Follow-up Location: remote Interview Reason: scheduled follow up Protection Consultant: [employer] Scientific Name: Dynagen ICD Model: D150 Serial #: [id number] Implant Date: 01/13/17 Year(s): 0 Implant Physician: Dr. Green/[facility] Patient Characteristics Patient Substrate: Nonischemic cardiomyopathy Ejection fraction %: 25 to 29 (12/17/2016) By: Echo Underlying rhythm: Sinus rhythm Pacemaker Dependent: No Device Characteristics Device: Single Chamber Type: Implantable defibrillator Remote Follow-Up: Latitude Leads Lead #1 Protection Consultant Lead 1: [employer] Model Lead 1: 0292 Serial# Lead 1: [id number] Date Implanted Lead 1: 01/13/17 Position Lead [...] cardiomyopathy I42.0 5. 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 Florian 01/01/18 1526 <Electronically signed by Shanelle August > Date Shanelle August 01/04/18 1220<Electronically signed by Case Florian MD> [facility] Signature: Date (if applicable) Case lForian MD CC: EMERGENCY DEPARTMENT Observed: 01/02/2018 Status: F Source: [place] SUMMARY 10:33 PM [facility] REPOSITORY [facility] Medical Records Department [address] [place] [address] Emergency Department Summary 01/02/18 1614 MR#: [id number] Acct: [id number] Name: JESSICAJIGNESH M Rep #: [id number] : 1950 67 From: Sameera Tan MD [...] Supratherapeutic INR This note was generated with PatientKeeper dictation software. It may contain incorrect words, [...] problems, contact your Primary Care Provider. Call [email or web address] [facility] ([phone]) or report to the closest Emergency Room. Call 911 if necessary. 01/02/18 3459 <Electronically signed by Sameera Tan MD> Date Sameera Tan MD Cosigner Signature (If Indicated): Date CC: Jose Maurer III, MD DISCHARGE INSTRUCTION Observed: 01/02/2018 Status: F Source: ROCIO 4:56 PM [facility] REPOSITORY [facility] Medical Records Department [address] [place] [address] Discharge Instruction 01/02/181655 MR#: [id number] Acct: [id number] Name: JIGNESH RAMIRES Rep #: [id number] : 1950 67 From: Sameera Tan MD [...] your Primary Care Provider. Call [facility] ([phone]) or report to the closest Emergency Room. Call 911 if necessary. 01/02/181655 <Electronically signed by Sameera Tan MD> Date Sameera Tan MD Cosigner Signature (If Indicated): Date CC: Jose Maurer III, MD PROTHROMBIN TIME W/INR Collected: 01/02/2018 Status: F Source: [place] 4:30 PM [facility] REPOSITORY TYPE CODE TESTS RESULT OUT OF RANGE REFERENCE UNITS LAB L300.4150 11.7-14.9 SECONDS High PROTIME 28.9 LAB L300.4200 Normal INR 2.7 Performed By: #### L300.3900 #### [facility] [address] [place], [address] URGENT CARE VISIT Observed: 01/02/2018 Status: F Source: [place] REPORT 9:25 AM [facility] REPOSITORY [facility] [address] [place] [address] [address] [place] [address] OFFICE VISIT Date of Service: 01/02/18 MR#: [id number] Acct: [id number] Name: JIGNESH RAMIRES Rep #: [id number] : 1950 Provider: Ivelisse North Age/Sex: 67/M Location: [facility] Status: Signed Intake Vital Signs01/02/18 Height 5 ft 7 in 01/02/18 Weight: 151 lb 01/02/18 Body Mass Index (BMI) 23.6 01/02/18 Blood Pressure 134/70 Intake Visit Reasons: LEFT ELBOW WOUND Chief Complaint: Follow-up test results Jack Spinner Required: No Is patient in pain?: No Allergies No Known Allergies Allergy (Verified 01/02/18 08:17) Medications Aclidinium Redgranite [Tudorza Pressair] 400 mcg IH BID 08/27/16 [...] .COMPLEX #60 tab 12/22/17 [Rx Confirmed 01/02/18] [facility] Medical History Implantable cardioverter-defibrillator (ICD) in situ (Chronic) Nonischemic cardiomyopathy (Chronic) Severe left ventricular systolic dysfunction (Chronic) Dilated cardiomyopathy (Chronic) 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) Chronic respiratory failure with hypoxia and hypercapnia (Chronic) PVD (peripheral vascular disease) (Chronic) Stage 3 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) PND (paroxysmal nocturnal dyspnea) (Chronic) Hyperlipidemia (Chronic) SOB (shortness of breath) (Acute) 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) COPD (chronic [...] ELBOW WOUND Chief Complaint: Follow-up test results Jack Spinner Required: No Is patient in pain?: No Allergies No Known Allergies Allergy (Verified 01/02/18 08:17) Medications Aclidinium Redgranite [Tudorza Pressair] 400 mcg IH BID 08/27/16 [...] .COMPLEX #60 tab 12/22/17 [Rx Confirmed 01/02/18] [facility] Medical History Implantable cardioverter-defibrillator (ICD) in situ (Chronic) Nonischemic cardiomyopathy (Chronic) Severe left ventricular systolic dysfunction (Chronic) Dilated cardiomyopathy (Chronic) 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) Chronic respiratory failure with hypoxia and hypercapnia (Chronic) PVD (peripheral vascular disease) (Chronic) Stage 3 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) PND (paroxysmal nocturnal dyspnea) (Chronic) Hyperlipidemia (Chronic) SOB (shortness of breath) (Acute) 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) COPD (chronic [...] Status: F Source: [place] REPORT 8:30 AM [facility] REPOSITORY [facility] [address] [place] [address] [address] [address] OFFICE VISIT Date of Service: 01/01/18 MR#: [id number] Acct: [id number] Name: JIGNESH RAMIRES Rep #: [id number] : 1950 Provider: Darren COLLINS Age/Sex: 67/M Location: [facility] Status: Signed Intake Vital Signs01/01/18 Height 5 ft 7 in Intake Visit Reasons: bleeding Is patient in pain?: No Allergies No Known Allergies Allergy (Verified 01/01/18 06:40) Medications Aclidinium Redgranite [Tudorza Pressair] 400 mcg IH BID 08/27/16 [...] .COMPLEX #60 tab 12/22/17 [Rx Confirmed 01/01/18] [facility] Medical History Nonischemic cardiomyopathy (Chronic) Severe left ventricular systolic dysfunction (Chronic) Dilated cardiomyopathy (Chronic) 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) Chronic respiratory failure with hypoxia and hypercapnia (Chronic) PVD (peripheral vascular disease) (Chronic) Stage 3 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) PND (paroxysmal nocturnal dyspnea) (Chronic) Hyperlipidemia (Chronic) SOB (shortness of breath) (Acute) nursing home current use of anticoagulant (Chronic) COPD (chronic [...] sustained an abrasion to his arm on Thursday of this week when he hit his [...] the patient. Advised to follow-up with his artist's representative for INR checks. Patient advised of potential red flags when appropriate report to the ED. Patient verbalized understanding of all the above. This note was generated with PatientKeeper dictation software. It may contain incorrect words, spelling, and punctuation that were not noted in checking the note before signing. Coding Level of Care Code Off vis,est,level 3 Diagnoses Abrasion of skin T14.8XXA 01/01/18 0830 <Electronically signed by Darren COLLINS> Date Darren Witt Signature: Date (if applicable) CC: PULMONARY VISIT REPORT Observed: 12/23/2017 Status: F Source: [place] 6:54 AM [facility] REPOSITORY [facility] [address] [place] [address] OFFICE VISIT Date of Service: 12/23/17 MR#: [id number] Acct: [id number] Name: JIGNESH RAMIRES Rep #: [id number] : 1950 Provider: Clovis Rodríguez MD Age/Sex: 67/M Location: [facility] Status: Signed Assessment AND Plan [...] M FU Chief Complaint: shortness of breath [facility] [place] Vendor: [facility] Accompanied by: Self Allergies No Known Allergies Allergy (Verified 12/23/17 06:14) Medications Aclidinium Redgranite [Tudorza Pressair] 400 mcg IH BID 08/27/16 [...] .COMPLEX #60 tab 12/22/17 [Rx Confirmed 12/23/17] [facility] Medical History Nonischemic cardiomyopathy (Chronic) Severe left ventricular systolic dysfunction (Chronic) Dilated cardiomyopathy (Chronic) 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) Chronic respiratory failure with hypoxia and hypercapnia (Chronic) PVD (peripheral vascular disease) (Chronic) Stage 3 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) PND (paroxysmal nocturnal dyspnea) (Chronic) Hyperlipidemia (Chronic) SOB (shortness of breath) (Acute) nursing home current use of anticoagulant (Chronic) COPD (chronic [...] TIME W/INR Collected: 2017 Status: F Source: [place] 6:44 AM [facility] REPOSITORY Order Comment: CRITICAL VALUE VERIFIED. CALLED TO rakesh 12/22/17 0856 Kaylin Swanson. RESULTS READ BACK BY RAKESH . TYPE CODE TESTS RESULT OUT OF REFERENCE UNITS RANGE LAB L300.4150 11.7-14.9 SECONDS High PROTIME 39.4 LAB L300.4200 High alert INR 4.0 Performed By: #### L300.3900 #### [facility] Laboratory [address] [place], [address] ECHOCARDIOGRAM COMPLETE Observed: 12/17/2017 Status: F Source: [place] 1:02 PM [facility] REPOSITORY [facility] Cardiovascular Services [address] [place] [address] Echo Complete 12/16/17 1414 MR#: [id number] Acct: [id number] Name: JIGNESH RAMIRES Rep #: [id number] : 1950 66 From: Case Florian MD Attending Dr: Case Florian MD Status: REG CLI Ordering Dr: Case Florian MD Date: 12/16/17 Location: [facility] Sex: M C Admitted: Reason For Study: [...] Dictated: 12/16/17 1414 Date Transcribed: 12/17/17 1301 Newspaper Editor Managing: Signed PROGRESS Observed: 12/11/2017 Status: COMPLETED Source: [place] 8:30 AM [facility] REPOSITORY HNO ID: [id number] Author: Amalia Baltazar Service: (none) Author Type: [...] Cardiomyopathy (HCC) - CHF (congestive heart failure) ([facility]) - Chronic obstructive pulmonary disease (COPD) ([facility]) - Diverticulosis of colon (without mention of hemorrhage) - HTN (hypertension) - Hyperlipidemia - ICD (implantable cardioverter-defibrillator) in place - Internal hemorrhoids without mention of complication - Moderate to severe pulmonary hypertension 04/01/2017 - NICM (nonischemic cardiomyopathy) ([facility]) - Obstructive chronic bronchitis ([facility]) 08/06/2010 - PMH - PAST MEDICAL HISTORY OF cystic acne - Psoriasis 02/02/2014 - Psoriatic arthritis ([facility]) 02/02/2014 - Pulmonary HTN - PVD (peripheral vascular disease) ([facility]) - Snoring - Systolic CHF ([facility]) ALLERGIES Review of patient's allergies indicates no [...] (FLONASE) 50 mcg/actuation nasal spray Use 1 Hudson in each nostril once daily. COMPOUNDED PRESCRIPTION [...] O2 nasal cannula. Please fax results to [phone]. Diagnosis: Very severe COPD J44.9 COMPOUNDED PRESCRIPTION Please perform nocturnal pulse oximetry on 4 lpm O2 NC. Dx= Nocturnal Hypoxemia G47.34. Please fax results to [phone]. albuterol (PROVENTIL) 2.5 mg/0.5 mL nebulizer solution [...] bacterial infection at this time. Amalia Baltazar APRN.SEAM CHECKER CNOV Observed: 12/11/2017 Status: COMPLETED Source: [place] 8:20 AM [facility] REPOSITORY Office Visit (FAMPWS) JIGNESH RAMIRES ([id number]) 1950 M NFR Date Time Provider Department 12/11/17 8:20 AM AMALIA BALTAZAR (MINERVA) ELLIOT During your visit today, we recorded the following information about you: Temperature Pulse Respiration Blood pressure 96.5 degrees 78/minute 16/minute 112/66 Weight 69.6 kg Amalia Baltazar APRN.MINERVA 12/11/2017 8:54 AM Signed 12/11/2017 Patient presents [...] lower urinary tract symptoms 01/09/2016 - Cardiomyopathy ([facility]) - CHF (congestive heart failure) ([facility]) - Chronic obstructive pulmonary disease (COPD) ([facility]) - Diverticulosis of colon (without mention of hemorrhage) - HTN (hypertension) - Hyperlipidemia - ICD (implantable cardioverter-defibrillator) in place - Internal hemorrhoids without mention of complication - Moderate to severe pulmonary hypertension 04/01/2017 - NICM (nonischemic cardiomyopathy) ([facility]) - Obstructive chronic bronchitis ([facility]) 08/06/2010 - PMH - PAST MEDICAL HISTORY OF cystic acne - Psoriasis 02/02/2014 - Psoriatic arthritis ([facility]) 02/02/2014 - Pulmonary HTN - PVD (peripheral vascular disease) ([facility]) - Snoring - Systolic CHF ([facility]) ALLERGIES Review of patient's allergies indicates no [...] (FLONASE) 50 mcg/actuation nasal spray Use 1 Hudson in each nostril once daily. COMPOUNDED PRESCRIPTION [...] O2 nasal cannula. Please fax results to [phone]. Diagnosis: Very severe COPD J44.9 COMPOUNDED PRESCRIPTION Please perform nocturnal pulse oximetry on 4 lpm O2 NC. Dx= Nocturnal Hypoxemia G47.34. Please fax results to [phone]. albuterol (PROVENTIL) 2.5 mg/0.5 mL nebulizer solution [...] * FLUTICASONE 50 MCG/ACTUATION * Use 1 Hudson in each nostril o* COMPOUNDED PRESCRIPTION Knee [...] hypertension (HCC)*INVALID FOR* Anemia [D64.9] INVALID FOR* skein yarn drier current use of anticoagulant therapy *INVALID FOR* Gastroesophageal reflux disease [K21.9] INVALID FOR* Heavy alcohol use [Z72.89] INVALID FOR* Other instructions from your clinician: If symptoms return try Claritin (loratadine). Continue to use fluticasone. Disposition: Return if symptoms worsen or fail to improve. Follow-up and Disposition History Recorded Encounter Status:Closed by AMALIA BALTAZAR on 12/11/17 PROTHROMBIN TIME W/INR Collected: 12/01/2017 Status: F Source: CL[place] 7:14 AM [facility] REPOSITORY TYPE CODE TESTS RESULT OUT OF RANGE REFERENCE UNITS LAB L300.4150 11.7-14.9 SECONDS High PROTIME 23.0 LAB L300.4200 Normal INR 2.0 Performed By: #### L300.3900 #### [facility] Laboratory [address] [place], [address] PROTHROMBIN TIME W/INR Collected: 11/24/2017 Status: F Source: CL[place] 6:37 AM [facility] REPOSITORY TYPE CODE TESTS RESULT OUT OF RANGE REFERENCE UNITS LAB L300.4150 11.7-14.9 SECONDS High PROTIME 16.1 LAB L300.4200 Normal INR 1.3 Performed By: #### L300.3900 #### [facility] Laboratory [address] [place], [address] PULMONARY FUNCTION Observed: 11/17/2017 Status: F Source: [place] REPORT COMP 2:30 PM [facility] REPOSITORY [facility] Pulmonary Services/Neurology [address] [place] [address] MR#: [id number] Acct: [id number] Name: JIGNESH RAMIRES Rep #: [id number] : 1950 66 From: Clovis Rodríguez MD Referring Dr: Cheryl Schaeffer ROLL FORMING SUPERVISOR Status: REG CLI Ordering Dr: Date: Location: [facility] Sex: M C COMPLETE PULMONARY FUNCTION TEST INTERPRETATION Brief HPI: Patient is a 66 year old male, currently under the care of Cheryl Schaeffer, who presents to [facility] for complete pulmonary function tests secondary to [...] MD Date Dictated: 11/17/171426 Date Transcribed: 11/17/171426 Newspaper Editor Managing: ISABELA Signed PROGRESS Observed: 11/16/2017 Status: COMPLETED Source: [place] 4:49 PM [facility] REPOSITORY O ID: [id number] Author: Jose Maurer III Service: (none) Author Type: Physician Type: Progress Notes Filed: 11/16/2017 8:42 PM Note Text: SUBJECTIVE: This is a 66 year old male that is here today for 1. tremor in both hands, worse with writing. 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 Initially noted internal shakiness. Not associated with [...] pulmonary hypertension 04/01/2017 - NICM (nonischemic cardiomyopathy) (HCC) - Obstructive chronic bronchitis (HCC) 08/06/2010 - PMH - PAST MEDICAL HISTORY OF cystic acne - Psoriasis 02/02/2014 - Psoriatic arthritis (HCC) 02/02/2014 - Pulmonary HTN - PVD (peripheral vascular disease) ([facility]) - Snoring - Systolic CHF ([facility]) Current Outpatient Prescriptions on File Prior to [...] (FLONASE) 50 mcg/actuation nasal spray Use 1 Hudson in each nostril once daily. COMPOUNDED PRESCRIPTION [...] O2 nasal cannula. Please fax results to [phone]. Diagnosis: Very severe COPD J44.9 COMPOUNDED PRESCRIPTION Please perform nocturnal pulse oximetry on 4 lpm O2 NC. Dx= Nocturnal Hypoxemia G47.34. Please fax results to [phone]. albuterol (PROVENTIL) 2.5 mg/0.5 mL nebulizer solution [...] w/o complications RAÚL Colunga MD, III MD CNOV Observed: 11/16/2017 Status: COMPLETED Source: [place] 4:20 PM [facility] REPOSITORY Office Visit (FAMPWS) JIGNESH RAMIRES ([id number]) 1950 M NFR Date Time Provider Department [...] both hands, worse with writing. 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 Initially noted internal shakiness. Not associated with [...] pulmonary hypertension 04/01/2017 - NICM (nonischemic cardiomyopathy) (HCC) - Obstructive chronic bronchitis (HCC) 08/06/2010 - PMH - PAST MEDICAL HISTORY OF cystic acne - Psoriasis 02/02/2014 - Psoriatic arthritis (HCC) 02/02/2014 - Pulmonary HTN - PVD (peripheral vascular disease) ([facility]) - Snoring - Systolic CHF (HCC) Current [...] (FLONASE) 50 mcg/actuation nasal spray Use 1 Hudson in each nostril once daily. COMPOUNDED PRESCRIPTION [...] O2 nasal cannula. Please fax results to [phone]. Diagnosis: Very severe COPD J44.9 COMPOUNDED PRESCRIPTION Please perform nocturnal pulse oximetry on 4 lpm O2 NC. Dx= Nocturnal Hypoxemia G47.34. Please fax results to [phone]. albuterol (PROVENTIL) 2.5 mg/0.5 mL nebulizer solution [...] Date Reviewed: 11/16/2017 Reviewed by: Sameera Torres Computer Systems Information Director - Fully Assessed Reason for Visit: Recheck [...] * FLUTICASONE 50 MCG/ACTUATION * Use 1 Hudson in each nostril o* COMPOUNDED PRESCRIPTION Knee [...] hypertension (HCC)*INVALID FOR* Anemia [D64.9] INVALID FOR* skein yarn drier current use of anticoagulant therapy *INVALID FOR* [...] 11/16/17 PROGRESS Observed: 11/13/2017 Status: COMPLETED Source: [place] 5:42 PM [facility] REPOSITORY O ID: [id number] Author: Margarita Reddy Service: (none) Author Type: [...] pulmonary hypertension 04/01/2017 - NICM (nonischemic cardiomyopathy) (HCC) - Obstructive chronic bronchitis (HCC) 08/06/2010 - PMH - PAST MEDICAL HISTORY OF cystic acne - Psoriasis 02/02/2014 - Psoriatic arthritis (HCC) 02/02/2014 - Pulmonary HTN - PVD (peripheral vascular disease) (HCC) - Snoring - Systolic CHF (HCC) PAST SURGICAL HISTORY Procedure Laterality Date - BASIC ICD SINGLE CHAMBER 01/13/2017 [facility] W/O [facility] SPEC 11/18/06 - COLONOSCOP W/ OR W/O [facility] SPEC 12/07/2014 Colonoscopy - ECHOCARDIOGRAM 08/28/2016 EF [...] (FLONASE) 50 mcg/actuation nasal spray Use 1 Hudson in each nostril once daily. COMPOUNDED PRESCRIPTION [...] O2 nasal cannula. Please fax results to [phone]. Diagnosis: Very severe COPD J44.9 COMPOUNDED PRESCRIPTION Please perform nocturnal pulse oximetry on 4 lpm O2 NC. Dx= Nocturnal Hypoxemia G47.34. Please fax results to [phone]. albuterol (PROVENTIL) 2.5 mg/0.5 mL nebulizer solution [...] CNP CNOV Observed: 11/13/2017 Status: COMPLETED Source: [place] 4:45 PM [facility] REPOSITORY Office Visit (WSTR) JIGNESH RAMIRES ([id number]) 1950 M NFR Date Time Provider Department 11/13/17 4:45 PM MARGARITA REDDY [facility] During your visit today, we recorded [...] pulmonary hypertension 04/01/2017 - NICM (nonischemic cardiomyopathy) (HCC) - Obstructive chronic bronchitis (HCC) 08/06/2010 - PMH - PAST MEDICAL HISTORY OF cystic acne - Psoriasis 02/02/2014 - Psoriatic arthritis (HCC) 02/02/2014 - Pulmonary HTN - PVD (peripheral vascular disease) (HCC) - Snoring - Systolic CHF (HCC) PAST SURGICAL HISTORY Procedure Laterality Date - BASIC ICD SINGLE CHAMBER 01/13/2017 [facility] - COLONOSCOP W/ OR W/O [facility] SPEC 11/18/06 - COLONOSCOP W/ OR W/O [facility] SPEC 12/07/2014 Colonoscopy - ECHOCARDIOGRAM 08/28/2016 EF [...] (FLONASE) 50 mcg/actuation nasal spray Use 1 Hudson in each nostril once daily. COMPOUNDED PRESCRIPTION [...] O2 nasal cannula. Please fax results to [phone]. Diagnosis: Very severe COPD J44.9 COMPOUNDED PRESCRIPTION Please perform nocturnal pulse oximetry on 4 lpm O2 NC. Dx= Nocturnal Hypoxemia G47.34. Please fax results to [phone]. albuterol (PROVENTIL) 2.5 mg/0.5 mL nebulizer solution [...] Order(s):CONSULT TO INTERNAL MEDICINE [9017] Order #: [id number]: 1 Prescriptions as of 11/13/2017 Sig: OMEPRAZOLE 40 MG CAPSULE,MARÍA* Take 1 capsule by mouth once * LEVOTHYROXINE 25 MCG TABLET Take 1 tablet by mouth once d* FERROUS SULFATE 325 MG (65 MG* Take 1 tablet by mouth twice * HYDROXYCHLOROQUINE 200 MG TAB* Take 1 tablet by mouth twice * FLUTICASONE 50 MCG/ACTUATION * Use 1 Hudson in each nostril o* COMPOUNDED PRESCRIPTION Knee [...] hypertension (HCC)*INVALID FOR* Anemia [D64.9] INVALID FOR* skein yarn drier current use of anticoagulant therapy *INVALID FOR* Gastroesophageal reflux disease [K21.9] INVALID FOR* Encounter Status:Closed by MARGARITA REDDY CNP on 11/13/17 PROTHROMBIN TIME W/INR Collected: 11/10/2017 Status: F Source: CLAR[place] 7:13 AM [facility] REPOSITORY TYPE CODE TESTS RESULT OUT OF RANGE REFERENCE UNITS LAB L300.4150 11.7-14.9 SECONDS High PROTIME 21.6 LAB L300.4200 Normal INR 1.9 Performed By: #### L300.3900 #### [facility] Laboratory [address] [place] [address], [id number] PROTHROMBIN TIME W/INR Collected: 10/20/2017 Status: F Source: CLAR[place] 7:10 AM [facility] REPOSITORY Order Comment: INR FOR DR FLORIAN THYROIDS FOR DR MAURER TYPE CODE TESTS RESULT OUT OF RANGE REFERENCE UNITS LAB L300.4150 11.7-14.9 SECONDS High PROTIME 24.0 LAB L300.4200 Normal INR 2.1 Performed By: #### L300.3900 #### [facility] Laboratory [facility] [place], [place], [id number] T4 TOTAL, THYROXIN Collected: 10/20/2017 Status: F Source: CLARION 7:10 AM [facility] REPOSITORY Order Comment: INR FOR DR FLORIAN THYROIDS FOR DR MAURER TYPE CODE TESTS RESULT OUT OF RANGE REFERENCE UNITS LAB L501.9310 4.5-12.1 ug/dL T4 Normal THYROXIN 5.4 Performed By: #### L501.9310, L501.9520, L506.0400 #### [facility] Laboratory [address] [place], [place], [id number] THYROID STIM HORMONE Collected: 10/20/2017 Status: F Source: CL[place] (TSH) 7:10 AM [facility] REPOSITORY Order Comment: INR FOR DR FLORIAN THYROIDS FOR DR MAURER TYPE CODE TESTS RESULT OUT OF RANGE REFERENCE UNITS LAB L501.9520 0.358-3.74 uIU/mL Normal TSH 2.24 Performed By: #### L501.9310, L501.9520, L506.0400 #### [facility] Laboratory [address] [place], [address] T4 FREE DIRECT Collected: 10/20/2017 Status: F Source: CLAR[place] 7:10 AM [facility] REPOSITORY Order Comment: INR FOR DR FLORIAN THYROIDS FOR DR MAURER TYPE CODE TESTS RESULT OUT OF RANGE REFERENCE UNITS LAB L506.0400 0.76-1.46 ng/dL Normal T4 FREE 0.93 DIRECT Performed By: #### L501.9310, L501.9520, L506.0400 #### [facility] Laboratory [address] [place], [address] CARDIOLOGY VISIT Observed: 10/15/2017 Status: F Source: [place] REPORT 4:27 PM [facility] REPOSITORY [facility] [address] [place] [address] OFFICE VISIT Date of Service: 10/15/17 MR#: [id number] Acct: [id number] Name: JIGNESH RAMIRES Rep #: [id number] : 1950 Provider: Case Florian MD Age/Sex: 66/M [place] [facility] [place] Status: Signed [facility] Chief Complaint: Routine f/u Details: Referring physician: Dr. Maurer Mr. Ramires is a very pleasant 66-year-old nondiabetic gentleman, with COPD, hypertension, hypercholesterolemia, who presented with new onset heart failure on 08/29/16 to [facility]. At that time echocardiogram was performed which [...] has been doing fairly well, exercising at [email or web address] 2 days a week, and pulmonary rehab [...] Allergies Allergy (Verified 10/15/17 15:58) Medications Aclidinium Redgranite [Tudorza Pressair] 400 mcg IH BID 08/27/16 [...] 10/15/17] Ejection fraction %: 20 to 24 [facility] Medical History Nonischemic cardiomyopathy (Chronic) Severe left ventricular systolic dysfunction (Chronic) Dilated cardiomyopathy (Chronic) 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) Chronic respiratory failure with hypoxia and hypercapnia (Chronic) PVD (peripheral vascular disease) (Chronic) Stage 3 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) PND (paroxysmal nocturnal dyspnea) (Chronic) Hyperlipidemia (Chronic) SOB (shortness of breath) (Acute) nursing home current use of anticoagulant (Chronic) COPD (chronic [...] MD Cosigner Signature: Date (if applicable) CC: PROTHROMBIN TIME W/INR Collected: 10/08/2017 Status: F Source: CLAR[place] 7:01 AM [facility] REPOSITORY TYPE CODE TESTS RESULT OUT OF RANGE REFERENCE UNITS LAB L300.4150 11.7-14.9 SECONDS High PROTIME 17.8 LAB L300.4200 Normal INR 1.5 Performed By: #### L300.3900 #### [facility] Laboratory [facility] [place], [address] LIVER PROFILE Collected: 10/08/2017 Status: F Source: CLARION 7:00 AM [facility] REPOSITORY Order Comment: Order Date: 04/17/17 Order Info: [id number] - *Hepatic Function Panel Order Info: [id number] - *Lipid Profile CC PCP Comments: 12 [...] BILI 0.27 Performed By: #### L500.3400 #### [facility] Laboratory [address] [place], [address] LIPID PROFILE Collected: 10/08/2017 Status: F Source: [place] 7:00 AM [facility] REPOSITORY Order Comment: Order Date: 04/17/17 Order Info: [id number] - *Hepatic Function Panel Order Info: [id number] - *Lipid Profile CC PCP Comments: 12 [...] VLDL 8 Performed By: #### L500.4100 #### [facility] Laboratory [address] [place], [address] PROTHROMBIN TIME W/INR Collected: 10/01/2017 Status: F Source: [place] 7:10 AM [facility] REPOSITORY TYPE CODE TESTS RESULT OUT OF RANGE REFERENCE UNITS LAB L300.4150 11.7-14.9 SECONDS High PROTIME 15.2 LAB L300.4200 Normal INR 1.3 Performed By: #### L300.3900 #### [facility] [address] [place], [address] PULMONARY VISIT REPORT Observed: 09/23/2017 Status: F Source: [place] 11:19 AM [facility] REPOSITORY [facility] [address] [place] [address] OFFICE VISIT Date of Service: 09/23/17 MR#: [id number] Acct: [id number] Name: JIGNESH RAMIRES Rep #: [id number] : 1950 Provider: Cheryl Schaeffer Age/Sex: 66/M Location: [facility] Status: Signed Assessment AND Plan 1. Stage [...] months. Plan Detail Follow Up 3 Months ([facility]) HPI 3 M FU: Chief Complaint: shortness [...] 36-49 <35 Distance walked in 6 min >[phone] <149 MMRC dyspnea scale* 0-1 2 [...] 24.3 Intake Visit Reasons: 3 M FU [facility] Vendor: [facility] Allergies No Known Allergies Allergy (Verified 09/17/17 15:41) Medications Aclidinium Redgranite [Tudorza Pressair] 400 mcg IH BID 08/27/16 [...] Hyperlipidemia (Chronic) SOB (shortness of breath) (Acute) nursing home current use of anticoagulant (Chronic) Acute respiratory [...] 09/17/2017 Status: F Source: [place] 7:02 AM [facility] REPOSITORY TYPE CODE TESTS RESULT OUT OF RANGE REFERENCE UNITS LAB L300.4150 11.7-14.9 SECONDS High PROTIME 20.7 LAB L300.4200 Normal INR 1.9 Performed By: #### L300.3900 #### [facility] Laboratory [address] [place], [address] OFFICE VISIT REPORT Observed: 09/16/2017 Status: F Source: [place] 2:08 PM [facility] REPOSITORY [facility] [address] [address] OFFICE VISIT Date of Service: 09/07/17 MR#: [id number] Acct: [id number] Patient: JIGNESH RAMIRES Rep #: [id number] : 1950 Provider: Shanelle August Age/Sex: 66/M [place] [facility] [place]: Signed Comments Summary Comments: Remote Single Chamber ICD Evaluation: Remote Interrogation shows no VT/VF episodes since 03/03/17. Presenting rhythm shows NSR @ 80 bpm. HEAD OF INSIGHT=0%. Battery longevity approx 12 yrs. Lead impedance and sensing remain stable. Normal remote ICD function. Pt notified remote transmission received and next f/u appt scheduled for in 3 mos. Device Device Date Interviewed: 09/07/17 Follow-up Location: remote Interview Reason: scheduled follow up Protection Consultant: [employer] Name: XO1agen ICD Model: D150 Serial #: [id number] Implant Date: 01/13/17 Year(s): 0 Implant Physician: Dr. Green/[facility] Patient Characteristics Patient Substrate: Nonischemic cardiomyopathy Ejection fraction %: 25 to 29 (12/17/2016) By: Echo Underlying rhythm: Sinus rhythm Pacemaker Dependent: No Device Characteristics Device: Single Chamber Type: Implantable defibrillator Remote Follow-Up: [employer] Lead #1 Protection Consultant Lead 1: [employer]ionovo Model Lead 1: 0292 Serial# Lead 1: [id number] Date Implanted Lead 1: 01/13/17 Position Lead [...] Presence of implantable cardioverter-defibrillator (ICD) Z95.810 09/11/17 08 <Electronically signed by Shanelle Mata > Date Shanelle August 09/16/17 1408<Electronically signed by Case Florian MD> Cosigner Signature: Date (if applicable) Case Florian MD CC: ALLERGIES ALLERGIES DATE TYPE / CODE NAME / CODE REACTION SEVERITY SOURCE 08/20/2018 Drug No Known Unknown [facility] Allergy/416 Allergies/L53730 Hospital 563109(SNOM 0388(RXNORM) Repository ED CT) Drug NO KNOWN [facility] Class/03462 ALLERGIES Other [place] 1003(SNOMED Repository CT) NG/62461997 NO KNOWN [facility] 6(SNOMED ALLERGIES [facility] CT) Repository ENCOUNTERS ENCOUNTERS ADMIT/DISCHARGE ACCOUNT NUMBER ADMITTING ENCOUNTER LOCATION SOURCE CLASS 09/08/2018/09/08/19 [id number] Ambulatory [address] [place] Repository 09/07/2018/09/08/19 [id number] Ambulatory [address] [place] Repository 09/07/2018 [id number] Ambulatory [facility] [place] Repository 09/06/2018/09/07/19 [id number] Ambulatory [address] [place] Repository 09/06/2018/09/07/19 [id number] Ambulatory [address] [place] Repository 09/01/2018 [id number] Ambulatory [facility] ding:LAB Repository 08/30/2018/08/31/19 [id number] Ambulatory [address] [place] Repository 08/30/2018/08/31/19 [id number] Ambulatory [address] [place] Repository 08/27/2018/08/27/19 [id number] Ambulatory [facility]: [place] [facility] Repository 08/27/2018 [id number] Ambulatory [facility] ding:[place] Repository 08/26/2018/08/26/19 [id number] Ambulatory [address] Repository 08/20/2018 [id number] Ambulatory [facility] ding:[facility] Repository 08/19/2018/08/20/19 [id number] Ambulatory [place] [facility] [place] Repository 08/13/2018/08/16/20 [id number] Ambulatory [place] [facility] [place] Repository 08/13/2018/08/13/20 [id number] Ambulatory [place] [facility] [address] [place] Repository 08/12/2018/08/13/20 [id number] Ambulatory [place] [facility] [place] Repository 08/11/2018/08/12/20 [id number] Ambulatory [place] [facility] [place] Repository 08/09/2018/08/09/20 [id number] Ambulatory [place] [facility] [place] Repository 08/09/2018/08/09/20 [id number] Ambulatory [place] [facility] [place] Repository 08/06/2018/08/06/20 [id number] Ambulatory [place] [facility] [place] Repository 08/04/2018/08/04/20 [id number] Ambulatory [address] ding:LAB Repository 08/02/2018 [id number] Ambulatory [facility] ding:HPRAD Repository 08/02/2018/08/03/20 [id number] Ambulatory [address] Main [place] Repository 08/02/2018/08/03/20 [id number] Ambulatory [address] Main [place] Repository 07/27/2018 [id number] Ambulatory [facility] ding:LAB.FUT Repository URE 07/21/2018/07/22/20 [id number] Ambulatory [address] Main [place] Repository 07/20/2018/07/21/20 [id number] Ambulatory [address] Main [place] Repository 07/20/2018/07/21/20 [id number] Ambulatory [address] Main [place] Repository 07/20/2018/08/16/20 [id number] Ambulatory [address] ding:[place] Repository 07/19/2018/07/20/20 [id number] Ambulatory [address] Main [place] Repository 07/16/2018 [id number] Ambulatory [facility] ding:RAD Repository 07/15/2018/07/16/20 [id number] Ambulatory [place] [address] ding:LAB Repository 07/14/2018/07/14/20 [id number] Ambulatory BMSBuilding: [place] 18 [facility]MS.[facility] Repository 07/13/2018/07/14/20 [id number] Ambulatory [address] Repository 07/13/2018/07/14/20 [id number] Ambulatory [address] Repository 07/12/2018/07/14/20 [id number] Ambulatory [address] Repository 07/07/2018/07/07/20 [id number] Ambulatory [facility] [place] [facility] 07/06/2018 [id number] Ambulatory [facility] ding:CT Repository 07/01/2018 [id number] Ambulatory BMSBuilding: [place] BMS.CF.[facility] Repository 07/01/2018 [id number] Ambulatory [facility] ding:OMD Repository 06/22/2018/06/25/20 [id number] Ambulatory [address] Repository 06/21/2018/06/21/20 [id number] Ambulatory [address] Repository 06/21/2018/06/21/20 [id number] Ambulatory [address] Repository 06/21/2018/06/22/20 [id number] Ambulatory [address] Repository 06/21/2018 [id number] Ambulatory BMSBuilding: [place] BMS.CF.[facility] Repository 06/17/2018/07/16/20 [id number] [place] [address] [place] [address] ding:[place] Repository 06/16/2018/06/16/20 [id number] Ambulatory BMSBuilding: [place] [facility] 06/15/2018 [id number] Ambulatory [facility] ding:HPRAD Repository 06/10/2018 [id number] Neha Hall Ambulatory BMSBuilding: [place] [facility] Repository 06/10/2018 [id number] Neha Hall Ambulatory BMSBuilding: [place] BMS.[facility] Repository 06/10/2018 [id number] Neha Hall Ambulatory BMSBuilding: [place] BMS.[facility] Repository 06/10/2018/06/11/20 [id number] Neha Hall [place] Encounter [facility] ding:[id number] Repository : UX107Fkj: 1 06/08/2018 [id number] Ambulatory [facility] ding:CT Repository 05/27/2018 [id number] Ambulatory [facility] ding:[place] Repository 05/25/2018/05/25/20 [id number] Ambulatory BMSBuilding: [place] [facility] Repository 05/20/2018/05/21/20 [id number] Ambulatory [address] [place] Repository 05/17/2018 [id number] Ambulatory BMSBuilding: [place] BMS.[facility] Repository 05/13/2018/05/16/20 [id number] LASHAWN ECHEVERRIA Inpatient [place] [address] [facility] [place] Repository 05/13/2018/05/16/20 [id number] LASHAWN ECHEVERRIA F Inpatient [place] [address] Encounter [facility] MEDICAL Repository CENTERBuildi nBRoom: 5267Bed: 01 05/13/2018/05/13/20 [id number] Emergency [address] ding:ED Repository 05/13/2018/05/13/20 [id number] Ambulatory [facility]: [place] [facility] Repository 05/13/2018/05/16/20 [id number] Ambulatory [place] [address] ding:[place] Repository 05/11/2018/05/11/20 [id number] Ambulatory [address] ding:LAB Repository 05/03/2018/05/03/20 [id number] Ambulatory BMSBuilding: [place] 18 [facility] Repository 04/15/2018/04/16/20 [id number] Ambulatory [address] ding:[place] Repository 04/06/2018/04/19/20 [id number] Ambulatory [place] 18 [facility] ding:LAB Repository 03/30/2018/03/30/20 [id number] Ambulatory BMSBuilding: [place] [facility] Repository 03/24/2018/03/24/20 [id number] Ambulatory BMSBuilding: [place] 18 [facility] Repository 03/16/2018/03/16/20 [id number] Ambulatory BMSBuilding: [place] [facility] Repository 03/16/2018/03/16/20 [id number] Ambulatory [place] 18 [facility] ding:[place] Repository 03/09/2018/03/09/20 [id number] Ambulatory [place] 18 [facility] ding:LAB Repository 02/11/2018/02/14/20 [id number] Ambulatory [place] 18 [facility] ding:[place] Repository 02/10/2018/02/11/20 [id number] Ambulatory BMSBuilding: [place] 18 BMS.[facility] Repository 02/09/2018/02/10/20 [id number] Ambulatory [place] 18 [facility] ding:LAB Repository 01/14/2018/01/15/20 [id number] Ambulatory [place] 18 [facility] ding:LAB Repository 01/14/2018/01/15/20 [id number] [place] [facility] ding:[place] Repository 01/02/2018/01/03/20 [id number] Emergency [place] [facility] ding:ED Repository 01/02/2018/01/03/20 [id number] Ambulatory BMSBuilding: [place] 18 BMS.[facility] Repository 01/01/2018/01/02/20 [id number] Ambulatory BMSBuilding: [place] 18 BMS.[facility] Repository 12/23/2017/12/24/19 [id number] Ambulatory [facility]: [place] [facility] Repository 12/21/2017/12/22/19 [id number] Ambulatory BMSBuilding: [place] 18 [facility] Repository 12/16/2017 [id number] Ambulatory BMSBuilding: [place] [facility] Repository 12/16/2017 [id number] [facility] [place] [facility] Repository 12/11/2017/12/15/19 [id number] Ambulatory [place] [place] Repository 12/10/2017/12/15/19 [id number] [place] 18 [facility] ding:[place] Repository 12/01/2017/12/02/19 [id number] [place] 18 [facility] ding:LAB Repository 11/17/2017 [id number] Ambulatory BMSBuilding: [place] [facility] Repository 11/17/2017 [id number] [facility] Repository 11/16/2017/11/18/19 [id number] Ambulatory [address] Repository 11/13/2017/11/17/19 [id number] Ambulatory [address] Repository 11/12/2017/11/15/19 [id number] [place] [facility] ding:[place] Repository 11/10/2017/11/11/19 [id number] Ambulatory [place] 18 [facility] ding:LAB Repository 10/16/2017 [id number] [facility] ding:LAB.FUT Repository URE 10/15/2017/10/16/19 [id number] Ambulatory BMSBuilding: [place] 18 [facility] Repository 10/13/2017/10/14/19 [id number] Ambulatory [place] 18 [facility] ding:[place] Repository 10/08/2017/10/08/19 [id number] Ambulatory [place] 18 [facility] ding:LAB Repository 09/23/2017/09/23/19 [id number] Ambulatory [facility]: [place] [facility] Repository 09/17/2017 [id number] Ambulatory BMS [facility] Repository 09/15/2017/09/16/19 [id number] Ambulatory [place] 18 [facility] ding:[place] Repository 09/07/2017/09/07/19 [id number] Ambulatory BMSBuilding: [place] 18 [facility] Repository PAYERS PAYERS ENCOUNTER GUARANTOR PAYER SUBSCRIBER SOURCE 09/07/2018 JIGNESH Paz Primary Insurance:SELF NOT GIVENUNK [place] [id number] [place] Effective Hospital [id number]: (330) Date:2018-08-19 Repository [phone] () 09/01/2018 JIGNESH Paz Primary JIGNESH Paz [place] [id number] [place]NG Insurance:MEDICARE BIGGSDOB: [place] PART A BPolicy Number: [id number] Hospital 93200Iky: (966) [id number] Repository [phone] () Date:2015-12-16 09/01/2018 Secondary JIGNESH Paz [place] Insurance:AARPPolicy BIGGSDOB: Community Number: [id number] Hospital [id number] Repository Date:5284-00-97[address], [place] [address]BY: 09/01/2018 Tertiary NOT GIVENUNK [place] Insurance:SELF PAY [facility] Hospital Number: Effective Repository Date:2018-08-16 08/27/2018 JIGNESH M Primary JIGNESH Paz [place] [id number] [place] Insurance:MEDICARE BIGGSDOB: [place] PART A BPolicy Number: [id number] Hospital 06673Dzq: (023) [id number] Repository [phone] () Date:2018-08-11 08/27/2018 Secondary JIGNESH M [place] Insurance:AARPPolicy BIGGSDOB: Community Number: [id number] Hospital [id number] Repository Date:6457-76-17QO [address], [place] [address]PV: 08/27/2018 Tertiary NOT GIVENUNK [place] Insurance:SELF PAY [facility] Hospital Number: Effective Repository Date:2018-08-27 08/27/2018 JIGNESH M Primary JIGNESH M [place] [id number] [place] Insurance:MEDICARE BIG[place]OB: [place] PART A BPolicy Number: [id number] Hospital 15873Onc: 330 [id number] Repository [phone] () Date:2017-10-15 08/27/2018 Secondary JIGNESH M [place] Insurance:AARPPolicy BIGGSDOB: Community Number: [id number] Hospital [id number] Repository Date:0500-58-38RY [address], [place] [address]CJ: 08/27/2018 Tertiary NOT GIVENUNK [place] Insurance:SELF PAY [facility] Effective Repository Date:2018-08-17 08/20/2018 JIGNESH M Primary JIGNESH M [place] [id number] [place] Insurance:AARPPolicy BIGGSDOB: [place] Number: [id number] Hospital 68203Qwd: 330 [id number] Repository [phone] () Date:7702-16-32VV [address], [place] [address]PY: 08/20/2018 Secondary JIGNESH M [place] Insurance:MEDICARE BIGGSDOB: Community PART A BPolicy Number: [id number] Hospital [id number] Repository Date:2018-08-19 08/20/2018 Tertiary NOT GIVENUNK [place] Insurance:SELF PAY [facility] Hospital Number: Effective Repository Date:2018-08-19 08/04/2018 JIGNESH M Primary JIGNESH M [place] [id number] [place] Insurance:MEDICARE BIG[place]OB: [place] PART A BPolicy Number: [id number] Hospital 78824Bpt: (928) [id number] Repository [phone] () Date:2015-12-16 08/04/2018 Secondary JIGNESH M [place] Insurance:AARPPolicy BIGGSDOB: Community Number: [id number] Hospital [id number] Repository Date:9718-03-26FI [address], [place] [address]NB: 08/04/2018 Tertiary NOT GIVENUNK [place] Insurance:SELF PAY [facility] Number: Effective Repository Date:2018-07-19 08/02/2018 JIGNESH M Primary JIGNESH M [place] [id number] [place] Insurance:MEDICARE BIGGSDOB: [facility] [place] PART A BPolicy Number: [id number] Hospital 80778Poe: 330 [id number] Repository [phone] () Date:2018-08-02 08/02/2018 Secondary JIGNESH M [place] Insurance:AARPPolicy BIGGSDOB: Community Number: [id number] Hospital [id number] Repository Date:3717-47-79NS [address], [place] [address]ZK: 08/02/2018 Tertiary NOT GIVENUNK [place] Insurance:SELF PAY [facility] Number: Effective Repository Date:2018-08-02 07/27/2018 JIGNESH M Primary JIGNESH M [place] [id number] [place] Insurance:MEDICARE BIGGSDOB: [facility] [place] PART A BPolicy Number: [id number] Hospital 73437Hku: 330 [id number] Repository [phone] () Date:2018-07-27 07/27/2018 Secondary JIGNESH M [place] Insurance:AARPPolicy BIGGSDOB: Community Number: [id number] Hospital [id number] Repository Date:9625-88-77RU [address], [place] [address]ZZ: 07/27/2018 Tertiary NOT GIVENUNK [place] Insurance:SELF PAY [facility] Number: Effective Repository Date:2018-07-27 07/20/2018 JIGNESH M Primary Insurance:SELF NOT GIVENUNK [place] [id number] [place] Number: Effective Hospital [id number]: 330) Date:2018-07-17 Repository [phone] () 07/16/2018 JIGNESH M Primary JIGNESH M [place] [id number] [place] Insurance:MEDICARE BIG[place]OB: [place] PART A BPolicy Number: [id number] Hospital 55917Ccx: 330 [id number] Repository [phone] () Date:2018-07-16 07/16/2018 Secondary JIGNESH M [place] Insurance:AARPPolicy BIGGSDOB: Community Number: [id number] Hospital [id number] Repository Date:3407-82-39YT [address], [place] [address]GS: 07/16/2018 Tertiary NOT GIVENUNK [place] Insurance:SELF PAY [facility] Number: Effective Repository Date:2018-07-16 07/15/2018 JIGNESH M Primary JIGNESH M [place] [id number] [place] Insurance:MEDICARE BIG[place]: [place] PART A BPolicy Number: [id number] Hospital 38590Obd: 330 [id number] Repository [phone] () Date:2015-12-16 07/15/2018 Secondary JIGNESH Jackson [place] Insurance:AARPPolicy BIGGSDOB: Community Number: [id number] Hospital [id number] Repository Date:9672-42-15WS [address], [place] [address]EO: 07/15/2018 Tertiary NOT GIVENUNK [place] Insurance:SELF PAY [facility] Hospital Number: Effective Repository Date:2018-05-19 07/14/2018 JIGNESH M Primary JIGNESH M [place] [id number] [place] Insurance:MEDICARE BIG[place]: [place] PART A BPolicy Number: [id number] Hospital 34762Uxi: 330 [id number] Repository [phone] () Date:2018-03-24 07/14/2018 Secondary JIGNESH M [place] Insurance:AARPPolicy BIGGSDOB: Community Number: [id number] Hospital [id number] Repository Date:8391-36-35AK [address], [place] [address]QG: 07/14/2018 Tertiary NOT GIVENUNK [place] Insurance:SELF PAY [facility] Number: Effective Repository Date:2018-05-13 07/07/2018 JIGNESH M Primary JIGNESH M [place] [id number] [place] Insurance:MEDICARE [place] PART A BPolicy Number: [id number] Hospital 01583Zpu: 330 [id number] Repository [phone] () Date:2018-03-30 07/07/2018 Secondary JIGNESH M [place] Insurance:AARPPolicy BIGGSDOB: Community Number: [id number] Hospital [id number] Repository Date:8920-11-88EA [facility] [address], [place] [address]EE: 07/07/2018 Tertiary NOT GIVENUNK [place] Insurance:SELF PAY [facility] Hospital Number: Effective Repository Date:2018-06-30 07/06/2018 JIGNESH M Primary JIGNESH M [place] [id number] [place] Insurance:MEDICARE [place] PART A BPolicy Number: [id number] Hospital 65569Ivn: 330 [id number] Repository [phone] () Date:2018-07-01 07/06/2018 Secondary JIGNESH M [place] Insurance:AARPPolicy BIGGSDOB: Community Number: [id number] Hospital [id number] Repository Date:8513-88-66RX [facility] [address], [place] [address]RL: 07/06/2018 Tertiary NOT GIVENUNK [place] Insurance:SELF PAY [facility] Number: Effective Repository Date:2018-07-01 07/01/2018 JIGNESH M Primary JIGNESH M [place] [id number] [place] Insurance:MEDICARE [place] PART A BPolicy Number: [id number] Hospital 13056Hma: 330 [id number] Repository [phone] () Date:2018-06-18 07/01/2018 Secondary JIGNESH Paz [place] Insurance:AARPPolicy BIGGSDOB: Community Number: [id number] Hospital [id number] Repository Date:6226-17-77TA [address], [place] [address]JJ: 07/01/2018 Tertiary NOT GIVENUNK [place] Insurance:SELF PAY [facility] Number: Effective Repository Date:2018-07-01 07/01/2018 JIGNESH Paz Primary JIGNESH Paz [place] [id number] [place] Insurance:MEDICARE [place]: [place] PART A BPolicy Number: [id number] Hospital 49872Ngq: (474) [id number] Repository [phone] () Date:2018-06-18 07/01/2018 Secondary JIGNESH Paz [place] Insurance:AARPPolicy BIGGSDOB: Community Number: [id number] Hospital [id number] Repository Date:9299-15-27WB [address], [place] [address]AK: 07/01/2018 Tertiary NOT GIVENUNK [place] Insurance:SELF PAY [facility] Number: Effective Repository Date:2018-06-18 06/21/2018 JIGNESH Paz Primary JIGNESH Paz [place] [id number] [place] Insurance:MEDICARE BIG[place]: [place] PART A BPolicy Number: [id number] Hospital 91894Rjp: [id number] Repository [phone] () Date:2018-06-18 06/21/2018 Secondary JIGNESH Paz [place] Insurance:AARPPolicy BIGGSDOB: Community Number: [id number] Hospital [id number] Repository Date:5218-16-26SO [address], [place] [address]DZ: 06/21/2018 Tertiary NOT GIVENUNK [place] Insurance:SELF PAY [facility] Number: Effective Repository Date:2018-06-21 06/17/2018 JIGNESH Paz Primary Insurance:SELF NOT GIVENUNK [place] [id number] [place] Number[place] Effective Hospital 63576Dyo: (330) Date:2018-04-21 Repository [phone] () 06/16/2018 JIGNESH Paz Primary JIGNESH Paz [place] [id number] [place] Insurance:MEDICARE BIGGSDOB: [facility] [place] PART A BPolicy Number: [id number] Hospital 38168Agq: 330 [id number] Repository [phone] () Date:2018-06-11 06/16/2018 Secondary JIGNESH M [place] Insurance:AARPPolicy BIGGSDOB: Community Number: [id number] Hospital [id number] Repository Date:9751-16-49JH [facility] [address], [place] [address]JS: 06/16/2018 Tertiary NOT GIVENUNK [place] Insurance:SELF PAY [facility]placed [facility] Number: Effective Repository Date:2018-06-15 06/15/2018 JIGNESH M Primary JIGNESH M [place] [id number] [place] Insurance:MEDICARE [place]: [place] PART A BPolicy Number: [id number] Hospital 35589Lbg: 330 [id number] Repository [phone] () Date:2018-06-15 06/15/2018 Secondary JIGNESH M [place] Insurance:AARPPolicy BIGGSDOB: Community Number: [id number] Hospital [id number] Repository Date:6021-06-00UQ [facility] [address]37[place], [place] [address]CY: 06/15/2018 Tertiary NOT GIVENUNK [place] Insurance:SELF PAY [facility] Number: Effective Repository Date:2018-06-15 06/10/2018 JIGNESH M Primary JIGNESH M [place] [id number] [place] Insurance:MEDICARE BIGGSDOB: [facility] [place] PART A BPolicy Number: [id number] Hospital 92006Xwf: 330 [id number] Repository [phone] () Date:2018-06-10 06/10/2018 Secondary JIGNESH Paz [place] Insurance:AARPPolicy BIGGSDOB: Community Number: [id number] Hospital [id number] Repository Date:0187-80-88GX [address]QRVATC, [place] [address]HW: 06/10/2018 Tertiary NOT GIVENUNK [place] Insurance:SELF PAY [facility] Number: Effective Repository Date:2018-06-10 06/10/2018 JIGNESH Paz Primary JIGNESH Paz [place] [id number] [place] Insurance:MEDICARE [place]: [place] PART A BPolicy Number: [id number] Hospital 92001Cqt: (437) [id number] Repository [phone] () Date:2018-06-10 06/10/2018 Secondary JIGNESH M [place] Insurance:AARPPolicy BIGGSDOB: Community Number: [id number] Hospital [id number] Repository Date:9205-01-14FR [facility] [address]SS[place]PF, [place] [address]SC: 06/10/2018 Tertiary NOT GIVENUNK [place] Insurance:SELF PAY [facility] Number: Effective Repository Date:2018-06-10 06/10/2018 JIGNESH M Primary JIGNESH Paz [place] [id number] [place] Insurance:MEDICARE BIG[place]: [place] PART A BPolicy Number: [id number] Hospital 07849Maw: (618) [id number] Repository [phone] () Date:2018-06-10 06/10/2018 Secondary JIGNESH M [place] Insurance:AARPPolicy BIGGSDOB: Community Number: [id number] Hospital [id number] Repository Date:8277-79-95PQ [facility] [address]77[address], [place] [address]PR: 06/10/2018 Tertiary NOT GIVENUNK [place] Insurance:SELF PAY [facility] Number: Effective Repository Date:2018-06-10 06/10/2018 JIGNESH M Primary JIGNESH M [place] [id number] [place] Insurance:MEDICARE [place] PART A BPolicy Number: [id number] Hospital 39525Tuo: (447) [id number] Repository [phone] () Date:2018-06-10 06/10/2018 Secondary JIGNESH M [place] Insurance:AARPPolicy BIGGSDOB: Community Number: [id number] Hospital [id number] Repository Date:3029-66-48CF [address]SQFJX[place], [place] [address]WY: 06/10/2018 Tertiary NOT GIVENUNK [place] Insurance:SELF PAY [facility] Number: Effective Repository Date:2018-06-10 06/08/2018 JIGNESH M Primary JIGNESH M [place] [id number] [place] Insurance:MEDICARE BIGG[place]OB: [facility] [place] PART A BPolicy Number: [id number] Hospital 51344Kch: (218) [id number] Repository [phone] () Date:2018-05-25 06/08/2018 Secondary JIGNESH M [place] Insurance:AARPPolicy BIGGSDOB: Community Number: [id number] Hospital [id number] Repository Date:8573-47-16EB [address], [place] [address]CP: 06/08/2018 Tertiary NOT GIVENUNK [place] Insurance:SELF PAY [facility] Number: Effective Repository Date:2018-05-25 05/27/2018 JIGNESH M Primary JIGNESH M [place] [id number] [place] Insurance:MEDICARE BIGGSDOB: [facility] [place] PART A BPolicy Number: [id number] Hospital 26411Ofk: (876) [id number] Repository [phone] () Date:2017-10-15 05/27/2018 Secondary JIGNESH M [place] Insurance:AARPPolicy BIGGSDOB: Community Number: [id number] Hospital [id number] Repository Date:3831-64-73SC [address], [place] [address]LN: 05/27/2018 Tertiary NOT GIVENUNK [place] Insurance:SELF PAY [facility] Number: Effective Repository Date:2018-05-17 05/25/2018 JIGNESH M Primary JIGNESH M [place] [id number] [place] Insurance:MEDICARE BIGGSDOB: Replaced [place] [facility] [place] PART A BPolicy Number: [id number] Hospital 47221Czi: (520) [id number] Repository [phone] () Date:2018-05-24 05/25/2018 Secondary JIGNESH M [place] Insurance:AARPPolicy BIGGSDOB: Community Number: [id number] Hospital [id number] Repository Date:0244-98-87QZ [address], [place] [address]JO: 05/25/2018 Tertiary NOT GIVENUNK [place] Insurance:SELF PAY [facility]: Effective Repository Date:2018-05-24 05/17/2018 JIGNESH M Primary JIGNESH M [place] [id number] YOUNG Insurance:MEDICARE BIGGSDOB: [place] PART A BPolicy Number: [id number] [facility] [address]Ync: [phone] [id number] Repository [phone] () Date:2018-05-17 05/17/2018 Secondary JIGNESH M [place] Insurance:AARPPolicy BIGGSDOB: Community Number: [id number] [facility] [id number] Repository Date:4115-87-37AD [address]IUDNRGR, [place] [address]VB: 05/17/2018 Tertiary NOT GIVENUNK [place] Insurance:SELF PAY [facility] Number: Effective Repository Date:2018-05-17 05/13/2018 JIGNESH Primary JIGNESH [facility] BIGGSDOB: Insurance:MEDICARE A BIGGSDOB: Health System AND BPolicy Number: [id number] [id number] [place] Date: [address]Iei: () 05/13/2018 Secondary JIGNESH [facility] Insurance:[facility] AARP BIGGSDOB: Health System SUPPLEMENTPolicy [id number] Repository Number: [id number] Date: 05/13/2018 JIGNESH Paz Primary JIGNESH M [place] [id number] [place] Insurance:MEDICARE [place]OB[place] PART A BPolicy Number: [id number] Hospital 80701Kxu: 330 [id number] Repository [phone] () Date:2018-05-13 05/13/2018 Secondary JIGNESH M [place] Insurance:AARPPolicy BIGGSDOB: Community Number: [id number] Hospital [id number] Repository Date:5013-67-79OV [address]KE, [place] [address]KC: 05/13/2018 Tertiary NOT GIVENUNK [place] Insurance:SELF PAY [facility] Number: Effective Repository Date:2018-05-13 05/13/2018 JIGNESH M Primary JIGNESH M [place] [id number] [place] Insurance:MEDICARE BIGGSDOB: Replaced By [facility] [place] PART A BPolicy Number: [id number] Hospital 03391Zhp: 330 [id number] Repository [phone] () Date:2018-05-06 05/13/2018 Secondary JIGNESH M [place] Insurance:AARPPolicy BIGGSDOB: Community Number: [id number] Hospital [id number] Repository Date:4959-44-28KG [address]BVJCPNK, [place] [address]VU: 05/13/2018 Tertiary NOT GIVENUNK [place] Insurance:SELF PAY [facility] Number: Effective Repository Date:2018-05-12 05/13/2018 JIGNESH M Primary JIGNESH M [place] [id number] [place] Insurance:MEDICARE BIGGSDOB: Replaced By [facility] [place] PART A BPolicy Number: [id number] Hospital 39145Ish: (280) [id number] Repository [phone] () Date:2017-10-15 05/13/2018 Secondary JIGNESH M [place] Insurance:AARPPolicy BIGGSDOB: Community Number: [id number] Hospital [id number] Repository Date:0281-64-45GX [address]CPBFEMR, [place] [address]NZ: 05/13/2018 Tertiary NOT GIVENUNK [place] Insurance:SELF PAY [facility] Number: Effective Repository Date:2018-04-17 05/11/2018 JIGNESH Paz Primary JIGNESH Paz [place] [id number] [place] Insurance:MEDICARE BIGGSDOB: Replaced By [facility] [place] PART A BPolicy Number: [id number] Hospital 38364Dhk: (511) [id number] Repository [phone] () Date:2015-12-16 05/11/2018 Secondary JIGNEHS Paz [place] Insurance:AARPPolicy BIGGSDOB: Community Number: [id number] Hospital [id number] Repository Date:3548-74-99AZ [address], [place] [address]EE: 05/11/2018 Tertiary NOT GIVENUNK [place] Insurance:SELF PAY [facility] Number: Effective Repository Date:2018-04-20 05/03/2018 JIGNESH Paz Primary JIGNESH Paz [place] [id number] [place] Insurance:MEDICARE BIGGSDOB: Replaced By [facility] [place] PART A BPolicy Number: [id number] Hospital 75843Cxp: 330 [id number] Repository [phone] () Date:2017-10-15 05/03/2018 Secondary JIGNESH M [place] Insurance:AARPPolicy BIGGSDOB: Community Number: [id number] Hospital [id number] Repository Date:4961-12-95XV [address], [place] [address]TZ: 05/03/2018 Tertiary NOT GIVENUNK [place] Insurance:SELF PAY Replaced [facility] Number: Effective Repository Date:2018-04-30 04/15/2018 JIGNESH M Primary Insurance:SELF NOT GIVENUNK [place] [id number] [place] PAY INSUR[place] Number: Effective Hospital [id number]: (330) Date:2018-03-17 Repository [phone] () 04/06/2018 JIGNESH M Primary JIGNESH M [place] [id number] [place] Insurance:MEDICARE BIGGSDOB: [place] PART A BPolicy Number: [id number] Hospital 63857Xzh: 330 [id number] Repository [phone] () Date:2015-12-16 04/06/2018 Secondary JIGNESH M [place] Insurance:AARPPolicy BIGGSDOB: Community Number: [id number] Hospital [id number] Repository Date:2815-64-33MF [address]YPBDZU, [place] [address]YM: 04/06/2018 Tertiary NOT GIVENUNK [place] Insurance:SELF PAY [facility] Hospital Number: Effective Repository Date:2018-03-18 03/30/2018 JIGNESH M Primary JIGNESH M [place] [id number] [place] Insurance:MEDICARE BIGGSDOB: [place] PART A BPolicy Number: [id number] Hospital 81862Qis: 330 [id number] Repository [phone] () Date:2017-12-23 03/30/2018 Secondary JIGNESH M [place] Insurance:AARPPolicy BIGGSDOB: Community Number: [id number] Hospital [id number] Repository Date:8896-32-45YM [address]JOBKHZF, [place] [address]EN: 03/30/2018 Tertiary NOT GIVENUNK [place] Insurance:SELF PAY [facility] Hospital Number: Effective Repository Date:2018-03-22 03/24/2018 JIGNESH M Primary JIGNESH M [place] [id number] [place] Insurance:MEDICARE BIGGSDOB: [place] PART A BPolicy Number: [id number] Hospital 55291Cvv: 330 [id number] Repository [phone] () Date:2018-01-01 03/24/2018 Secondary JIGNESH M [place] Insurance:AARPPolicy BIGGSDOB: Community Number: [id number] Hospital [id number] Repository Date:5924-03-99SE [address]JXYZBGP, [place] [address]GO: 03/24/2018 Tertiary NOT GIVENUNK [place] Insurance:SELF PAY Replaced [facility] Number: Effective Repository Date:2018-03-24 03/16/2018 JIGNESH Paz Primary JIGNESH M [place] [id number] [place] Insurance:MEDICARE BIG[place]OB: [place] PART A BPolicy Number: [id number] Hospital 56067Syf: 330 [id number] Repository [phone] () Date:2018-03-15 03/16/2018 Secondary JIGNESH M [place] Insurance:AARPPolicy BIGGSDOB: Community Number: [id number] Hospital [id number] Repository Date:2934-36-75YZ [address]RRNJOJN, [place] [address]OY: 03/16/2018 Tertiary NOT GIVENUNK [place] Insurance:SELF PAY Replaced [facility] Number: Effective Repository Date:2018-03-16 03/16/2018 JIGNESH M Primary JIGNESH M [place] [id number] [place] Insurance:MEDICARE BIG[place]SDOB: [place] PART A BPolicy Number: [id number] Hospital 87893Sos: 330 [id number] Repository [phone] () Date:2017-10-15 03/16/2018 Secondary JIGNESH M [place] Insurance:AARPPolicy BIGGSDOB: Community Number: [id number] Hospital [id number] Repository Date:3309-41-62YV [address]KJNFJTK, [place] [address]VE: 03/16/2018 Tertiary NOT GIVENUNK [place] Insurance:SELF PAY [facility] Number: Effective Repository Date:2018-02-14 03/09/2018 JIGNESH M Primary JIGNESH M [place] [id number] [place] Insurance:MEDICARE BIG[place]SDOB: [place] PART A BPolicy Number: [id number] Hospital 61284Pse: (824) [id number] Repository [phone] () Date:2015-12-16 03/09/2018 Secondary JIGNESH M [place] Insurance:AARPPolicy BIGGSDOB: Community Number: [id number] Hospital [id number] Repository Date:5533-37-72IQ [address], [place] [address]MW: 03/09/2018 Tertiary NOT GIVENUNK [place] Insurance:SELF PAY [facility] Number: Effective Repository Date:2018-02-12 02/11/2018 JIGNESH M Primary JIGNESH M [place] [id number] [place] Insurance:MEDICARE BIGGSDOB: [facility] [place] PART A BPolicy Number: [id number] Hospital 04823Eio: (589) [id number] Repository [phone] () Date:2017-10-15 02/11/2018 Secondary JIGNESH M [place] Insurance:AARPPolicy BIGGSDOB: Community Number: [id number] Hospital [id number] Repository Date:1473-57-06BJ [address]PVTXIZG, [place] [address]YV: 02/11/2018 Tertiary NOT GIVENUNK [place] Insurance:SELF PAY [facility] Number: Effective Repository Date:2018-01-15 02/10/2018 JIGNESH M Primary JIGNESH M [place] [id number] [place] Insurance:MEDICARE BIGGSDOB: [place] PART A BPolicy Number: [id number] Hospital 45941Pxs: (633) [id number] Repository [phone] () Date:2018-02-10 02/10/2018 Secondary JIGNESH M [place] Insurance:AARPPolicy BIGGSDOB: Community Number: [id number] Hospital [id number] Repository Date:0811-66-53AZ [address]BUNVNJM, [place] [address]YV: 02/10/2018 Tertiary NOT GIVENUNK [place] Insurance:SELF PAY [facility] Number: Effective Repository Date:2018-02-10 02/09/2018 JIGNESH M Primary JIGNESH M [place] [id number] [place] Insurance:MEDICARE BIGGSDOB: Replaced By [facility] [place] PART A BPolicy Number: [id number] Hospital 86238Utd: 330 [id number] Repository [phone] () Date:2015-12-16 02/09/2018 Secondary JIGNESH M [place] Insurance:AARPPolicy BIGGSDOB: Community Number: [id number] Hospital [id number] Repository Date:6217-58-44LR [address]BS[place]MP, [place] [address]EP: 02/09/2018 Tertiary NOT GIVENUNK [place] Insurance:SELF PAY [facility] Number: Effective Repository Date:2018-01-14 01/14/2018 JIGNESH M Primary JIGNESH M [place] [id number] [place] Insurance:MEDICARE BIGGSDOB: [facility] [place] PART A BPolicy Number: [id number] Hospital 39207Ruu: 330 [id number] Repository [phone] () Date:2015-12-16 01/14/2018 Secondary JIGNESH M [place] Insurance:AARPPolicy BIGGSDOB: Community Number: [id number] Hospital [id number] Repository Date:4614-61-84CN [address], [place] [address]CF: 01/14/2018 Tertiary NOT GIVENUNK [place] Insurance:SELF PAY [facility] Number: Effective Repository Date:2017-12-15 01/14/2018 JIGNESH M Primary JIGNESH M [place] [id number] [place] Insurance:MEDICARE BIGGSDOB: Replaced By [facility] [place] PART A BPolicy Number: [id number] Hospital 40614Qbm: (347) [id number] Repository [phone] () Date:2017-10-15 01/14/2018 Secondary JIGNESH M [place] Insurance:AARPPolicy BIGGSDOB: Community Number: [id number] Hospital [id number] Repository Date:5907-63-58XM [address]ICGXCRJ, [place] [address]WQ: 01/14/2018 Tertiary NOT GIVENUNK [place] Insurance:SELF PAY Replaced [facility] Number: Effective Repository Date:2017-12-15 01/02/2018 JIGNESH M Primary JIGNESH Paz [place] [id number] [place] Insurance:MEDICARE BIGGSDOB: [facility] PART A BPolicy Number: [id number] Hospital 61522Ejd: (032) [id number] Repository [phone] () Date:2018-01-02 01/02/2018 Secondary JIGNESH M [place] Insurance:AARPPolicy BIGGSDOB: Community Number: [id number] Hospital [id number] Repository Date:9779-69-97MB [address]GNVEKUJ, [place] [address]PD: 01/02/2018 Tertiary NOT GIVENUNK [place] Insurance:SELF PAY Replaced [facility] Number: Effective Repository Date:2018-01-02 01/02/2018 JIGNESH M Primary JIGNESH M [place] [id number] [place] Insurance:MEDICARE BIGGSDOB: Replaced [facility] PART A BPolicy Number: [id number] Hospital 91014Uuy: (411) [id number] Repository [phone] () Date:2018-01-02 01/02/2018 Secondary JIGNESH M [place] Insurance:AARPPolicy BIGGSDOB: Community Number: [id number] Hospital [id number] Repository Date:8704-94-00IY [address]HEQPJVA, [place] [address]TU: 01/02/2018 Tertiary NOT GIVENUNK [place] Insurance:SELF PAY [facility]placed [facility] Number: Effective Repository Date:2018-01-02 01/01/2018 JIGNESH M Primary JIGNESH M [place] [id number] [place] Insurance:MEDICARE BIGGSDOB: [facility] PART A BPolicy Number: [id number] Hospital 00210Cic: 330 [id number] Repository [phone] () Date:2018-01-01 01/01/2018 Secondary JIGNESH Paz [place] Insurance:AARPPolicy BIGGSDOB: Community Number: [id number] Hospital [id number] Repository Date:0941-89-27EW [address]YKJSAKS, [place] [address]CS: 01/01/2018 Tertiary NOT GIVENUNK [place] Insurance:SELF PAY [facility] Number: Effective Repository Date:2018-01-01 12/23/2017 JIGNESH Paz Primary JIGNESH M [place] [id number] [place] Insurance:MEDICARE BIGGSDOB: [facility] [place] PART A BPolicy Number: [id number] Hospital 41996Rhy: 330 [id number] Repository [phone] () Date:2017-09-23 12/23/2017 Secondary JIGNESH M [place] Insurance:AARPPolicy BIGGSDOB: Community Number: [id number] Hospital [id number] Repository Date:5236-16-19NH [address]BFDZXMD, [place] [address]SJ: 12/23/2017 Tertiary NOT GIVENUNK [place] Insurance:SELF PAY [facility]placed [facility] Number: Effective Repository Date:2017-12-21 12/21/2017 JIGNESH M Primary JIGNESH Jackson [place] [id number] [place] Insurance:MEDICARE BIGGSDOB: [place] PART A BPolicy Number: [id number] Hospital 33167Ojs: 330 [id number] Repository [phone] () Date:2017-09-07 12/21/2017 Secondary JIGNESH M [place] Insurance:AARPPolicy BIGGSDOB: Community Number: [id number] Hospital [id number] Repository Date:6565-77-76RR [address]KSBXLRT, [place] [address]HD: 12/21/2017 Tertiary NOT GIVENUNK [place] Insurance:SELF PAY [facility]placed [facility] Number: Effective Repository Date:2017-12-21 12/16/2017 JIGNESH M Primary JIGNESH M [place] [id number] [place] Insurance:MEDICARE BIGGSDOB: [facility] [place] PART A BPolicy Number: [id number] Hospital 80829Udx: 330 [id number] Repository [phone] () Date:2017-10-16 12/16/2017 Secondary JIGNESH M [place] Insurance:AARPPolicy BIGGSDOB: Community Number: [id number] Hospital [id number] Repository Date:5617-94-00LZ [facility] [address]16[address]RFBAYLB, [place] [address]AO: 12/16/2017 Tertiary NOT GIVENUNK [place] Insurance:SELF PAY [facility]placed [facility] Number: Effective Repository Date:2017-12-16 12/16/2017 JIGNESH M Primary JIGNESH M [place] [id number] [place] Insurance:MEDICARE BIG[place]OB: [place] PART A BPolicy Number: [id number] Hospital 58530Nvu: 330 [id number] Repository [phone] () Date:2017-10-16 12/16/2017 Secondary JIGNESH M [place] Insurance:AARPPolicy BIGGSDOB: Community Number: [id number] Hospital [id number] Repository Date:9092-75-09PO [facility] [address]TPKNXIG, [place] [address]YA: 12/16/2017 Tertiary NOT GIVENUNK [place] Insurance:SELF PAY [facility] Hospital Number: Effective Repository Date:2017-10-16 12/10/2017 JIGNESH M Primary JIGNESH M [place] [id number] [place] Insurance:MEDICARE BIG[place]OB: [place] PART A BPolicy Number: [id number] Hospital 04277Hho: (317) [id number] Repository [phone] () Date:2017-10-15 12/10/2017 Secondary JIGNESH M [place] Insurance:AARPPolicy BIGGSDOB: Community Number: [id number] Hospital [id number] Repository Date:8720-19-75KY [address]HOQFVTP, [place] [address]YL: 12/10/2017 Tertiary NOT GIVENUNK [place] Insurance:SELF PAY Replaced [facility] Number: Effective Repository Date:2017-11-15 12/01/2017 JIGNESH M Primary JIGNESH M [place] [id number] [place] Insurance:MEDICARE BIG[place]SDOB: [facility] [place] PART A BPolicy Number: [id number] Hospital 64995Gto: 330 [id number] Repository [phone] () Date:2015-12-16 12/01/2017 Secondary JIGNESH M [place] Insurance:AARPPolicy BIGGSDOB: Community Number: [id number] Hospital [id number] Repository Date:3894-93-12XA [address]FZUAG[address], [place] [address]JD: 12/01/2017 Tertiary NOT GIV[place]UNK [place] Insurance:SELF PAY [facility] Number: Effective Repository Date:2017-11-16 11/17/2017 JIGNESH M Primary JIGNESH M [place] [id number] [place] Insurance:MEDICARE BIGGSDOB: [facility] [place] PART A BPolicy Number: [id number] Hospital 52871Bzf: 330 [id number] Repository [phone] () Date:2017-09-23 11/17/2017 Secondary JIGNESH M [place] Insurance:AARPPolicy BIGGSDOB: Community Number: [id number] Hospital [id number] Repository Date:6674-39-10MJ [address]SWJHCDF, [place] [address]CY: 11/17/2017 Tertiary NOT GIVENUNK [place] Insurance:SELF PAY [facility] Number: Effective Repository Date:2017-11-17 11/17/2017 JIGNESH M Primary JIGNESH M [place] [id number] [place] Insurance:MEDICARE BIGGSDOB: [facility] [place] PART A BPolicy Number: [id number] Hospital 86331Qvn: 330 [id number] Repository [phone] () Date:2017-09-23 11/17/2017 Secondary JIGNESH Paz [place] Insurance:AARPPolicy BIGGSDOB: Community Number: [id number] Hospital [id number] Repository Date:2048-03-02JV [address]OJFRYYD, [place] [address]YO: 11/17/2017 Tertiary NOT GIVENUNK [place] Insurance:SELF PAY [facility] Number: Effective Repository Date:2017-09-23 11/12/2017 JIGNESH M Primary Insurance:SELF NOT GIVENUNK [place] [id number] [place] Effective Hospital [id number]: (330) Date:2017-10-15 Repository [phone] () 11/10/2017 JIGNESH M Primary JIGNESH M [place] [id number] [place] Insurance:MEDICARE BIG[place]OB: [place] PART A BPolicy Number: [id number] Hospital 08950Zpy: (330) [id number] Repository [phone] () Date:2017-10-20 11/10/2017 Secondary JIGNESH Paz [place] Insurance:AARPPolicy BIGGSDOB: Community Number: [id number] Hospital [id number] Repository Date:8135-93-44UF [address]BYKXYKE, [place] [address]XS: 11/10/2017 Tertiary NOT GIV[place]UNK [place] Insurance:SELF PAY [facility] Number: Effective Repository Date:2017-10-20 10/16/2017 JIGNESH M Primary Insurance:SELF NOT GIVENUNK [place] [id number] [place] Number[place] Effective Hospital [id number]: (330) Date:2017-10-16 Repository [phone] () 10/15/2017 JIGNESH M Primary JIGNESH M [place] [id number] [place] Insurance:MEDICARE BIGGSDOB: [place] PART A BPolicy Number: [id number] Hospital 36481Lau: (330) Effective Repository [phone] () Date:2017-07-23 10/15/2017 Secondary JIGNESH M [place] Insurance:AARPPolicy BIGGSDOB: Community Number: Effective [id number] Hospital Date:3713-45-38GP [address] Repository [address]KOWCKJE, [place] [address]BP: 10/15/2017 Tertiary NOT GIVENUNK [place] Insurance:SELF PAY [facility] Number: Effective Repository Date:2017-10-15 10/13/2017 JIGNESH M Primary NOT GIVENUNK [place] [id number] [place] PART A BPolicy Number: Hospital [id number]: (132) Effective Repository [phone] () Date:2017-09-17 10/13/2017 Secondary NOT GIVENUNK [place] Insurance:AARPPolicy Community Number: Effective Hospital Date:4120-29-80ET [address] Repository [address]CIYHLUQ, [place] [address]PG: 10/13/2017 Tertiary NOT GIVENUNK [place] Insurance:SELF PAY Replaced [facility] Number: Effective Repository Date:2017-09-17 10/08/2017 JIGNESH M Primary JIGNESH M [place] [id number] [place] Insurance:MEDICARE [place]OB: [place] PART A BPolicy Number: [id number] Hospital 86020Azj: (615) [id number] Repository [phone] () Date:2015-12-16 10/08/2017 Secondary JIGNESH M [place] Insurance:AARPPolicy BIGGSDOB: Community Number: [id number] Hospital [id number] Repository Date:5308-38-16UQ [address]CGASJLQ, [place] [address]FI: 10/08/2017 Tertiary NOT GIVENUNK [place] Insurance:SELF PAY [facility] Number: Effective Repository Date:2017-08-17 09/23/2017 JIGNESH M Primary JIGNESH M [place]co[place] [id number] [place] Insurance:MEDICARE [place]OB: [place] PART A BPolicy Number: [id number] Hospital 87786Tjh: (001) [id number] Repository [phone] () Date:2017-07-27 09/23/2017 Secondary JIGNESH M [place] Insurance:AARPPolicy BIGGSDOB: Community Number: [id number] Hospital [id number] Repository Date:6331-90-48QZ [facility] 262842HHZIYEM, [place] [address]WS: 09/23/2017 Tertiary NOT GIVENUNK [place] Insurance:SELF PAY [facility] Number: Effective Repository Date:2017-07-27 09/17/2017 JIGNESH M Primary JIGNESH M [place] [id number] [place] Insurance:MEDICARE [place]: [place] PART A BPolicy Number: [id number] Hospital 94770Iwm: (667) [id number] Repository [phone] () Date:2017-09-17 09/17/2017 Secondary JIGNESH M [place] Insurance:AARPPolicy BIGGSDOB: Community Number: [id number] Hospital [id number] Repository Date:6041-73-55CE [address]HJAXBHC, [place] [address]GR: 09/17/2017 Tertiary NOT GIVENUNK [place] Insurance:SELF PAY [facility] Number: Effective Repository Date:2017-09-17 09/15/2017 JIGNESH M Primary JIGNESH M [place] [id number] [place] Insurance:MEDICARE [place]: [place] PART A BPolicy Number: [id number] Hospital 40811Ddw: (723) [id number] Repository [phone] () Date:2017-08-03 09/15/2017 Secondary JIGNESH M [place] Insurance:AARPPolicy BIGGSDOB: Community Number: [id number] Hospital [id number] Repository Date:6270-59-13SQ [facility] [address]291DNVYYZQ, [place] [address]WZ: 09/15/2017 Tertiary NOT GIVENUNK [place] Insurance:SELF PAY [facility] Number: Effective Repository Date:2017-08-03 09/07/2017 JIGNESH Paz Primary JIGNESH Chan [id number] [place] Insurance:MEDICARE BIGGSDOB: Replaced By [facility] MARKUS id PART A BPolicy Number: [id number] Hospital 81806Jrx: (128) [id number] Repository [phone] () Date:2017-07-20 09/07/2017 Secondary JIGNESH Chan [facility] Number: [id number] Hospital [id number] Repository Date:8715-07-16[address]FUZOFBA, [place] [address]IR: 09/07/2017 Tertiary NOT GIVENUNK [place] Insurance:SELF PAY [facility] Number: Effective Repository Date:2017-07-20
== END ==
PROVIDERS: Family Provider Family Medicine; PCP Family Medicine; Referring Provider Nurse Practitioner Acute Care; Visit Provider Nurse Practitioner Acute Care
DX: R06.02 Shortness of breath (principal)
CPT/HCPCS: 71046

== ENCOUNTER 2018-08-04 05:58 | Outpatient (RCR) | payer MEDICARE, OTHER, SELFPAY ==
[2018-07-07 06:29] VITALS: BMI 25.2
[2018-07-22 07:27] LABS: Anion Gap 3 (5-15); BUN 14 mg/dL (7-18); BUN/Creat Ratio 17.1 RATIO (10-20); Calcium,Total 8.7 mg/dL (8.5-10.1); Chloride 89 mmol/L (98-107); Creatinine, Serum 0.82 mg/dL (0.70-1.30); EST Glomerular Filtration Rate 100 mL/min (>60); Est Glom Filt Rate - Afr Amer 121 mL/min (>60); Glucose 112 mg/dL (74-106); Potassium 3.8 mmol/L (3.5-5.1); Sodium Level 134 mmol/L (136-145)
[2018-07-22 08:08] LABS: International Normalized Ratio 1.4; Prothrombin Time (Protime)PT. 17.2 SECONDS (11.7-14.9)
[2018-07-29 06:22] LABS: International Normalized Ratio 1.9; Prothrombin Time (Protime)PT. 21.9 SECONDS (11.7-14.9)
[2018-07-29 06:28] LABS: Anion Gap 7 (5-15); BUN 15 mg/dL (7-18); BUN/Creat Ratio 18.6 RATIO (10-20); Calcium,Total 7.6 mg/dL (8.5-10.1); Chloride 89 mmol/L (98-107); EST Glomerular Filtration Rate 102 mL/min (>60); Est Glom Filt Rate - Afr Amer 123 mL/min (>60); Glucose 100 mg/dL (74-106); Potassium 3.4 mmol/L (3.5-5.1); Sodium Level 136 mmol/L (136-145)
[2018-08-04 06:15] LABS: Prothrombin Time Fingerstick 22.9 SEC (11.9-14.4)
== END 2018-08-04 06:00 | disposition home or self-care (01) ==
LOC: LAB 05:58
PROVIDERS: Family Provider Family Medicine; PCP Family Medicine; Referring Provider Internal Medicine Cardiovascular Disease; Visit Provider Internal Medicine Cardiovascular Disease
DX: I51.3 Intracardiac thrombosis, not elsewhere classified (principal); Z79.01 Long term (current) use of 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
CPT/HCPCS: 36415; 36416; 80048; 85610

== ENCOUNTER → 2018-08-20 09:13 | Outpatient (CLI) | payer OTHER, MEDICARE, SELFPAY ==
[2018-07-07 06:29] VITALS: BMI 25.2
[2018-08-20] VITALS (7 sets, daily range): BP systolic 108–136; BP diastolic 46–71; PULSE 76–93; RESP 16–18; TEMP 36.3–36.8; O2SAT 99–100; BMI 24.8
[2018-08-20] MEDS: Furosemide 20 MG/2 ML VIAL IV (12:38)
== END ==
PROVIDERS: Family Provider Family Medicine; PCP Family Medicine; Referring Provider Internal Medicine Hematology & Oncology; Visit Provider Internal Medicine Hematology & Oncology
DX: D64.81 Anemia due to antineoplastic chemotherapy (principal)
CPT/HCPCS: 36430; 86850; 86900; 86920; 86922; J7040; P9016; A4216; J1940

== ENCOUNTER 2018-09-01 05:55 | Outpatient (RCR) | payer MEDICARE, OTHER, SELFPAY ==
[2018-07-07 06:29] VITALS: BMI 25.2
[2018-08-18 07:37] LABS: Anion Gap 9 (5-15); BUN 16 mg/dL (7-18); BUN/Creat Ratio 21.9 RATIO (10-20); Calcium,Total 8.2 mg/dL (8.5-10.1); Chloride 88 mmol/L (98-107); Creatinine, Serum 0.73 mg/dL (0.70-1.30); EST Glomerular Filtration Rate 114 mL/min (>60); Est Glom Filt Rate - Afr Amer 138 mL/min (>60); Glucose 102 mg/dL (74-106); Sodium Level 129 mmol/L (136-145)
[2018-08-18 08:54] LABS: International Normalized Ratio 1.8; Prothrombin Time (Protime)PT. 21.1 SECONDS (11.7-14.9)
[2018-09-01 06:11] LABS: Prothrombin Time Fingerstick 17.6 SEC (11.9-14.4)
== END 2018-09-01 06:00 | disposition home or self-care (01) ==
LOC: LAB 05:55
PROVIDERS: Family Provider Family Medicine; PCP Family Medicine; Referring Provider Internal Medicine Cardiovascular Disease; Visit Provider Internal Medicine Cardiovascular Disease
DX: I51.3 Intracardiac thrombosis, not elsewhere classified (principal); Z79.01 Long term (current) use of 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; I42.8 Other cardiomyopathies; I15.9 Secondary hypertension, unspecified; I50.9 Heart failure, unspecified
CPT/HCPCS: 36415; 36416; 80048; 85610

== ENCOUNTER → 2018-09-09 06:59 | Outpatient (CLI) | payer MEDICARE, OTHER, SELFPAY ==
[2018-08-27 11:45] VITALS: BMI 25.7
--- NOTE | 2018-09-09 07:02 | ECHOD_ITS ---
Reason For Study: CHF Procedure This was a 2D Doppler, Color Flow transthoracic echocardiogram. Myocardial strain analysis was performed in this exam to aid in the assessment of cardiac function. Exam performed in department. Left Ventricle Normal size and thickness. The estimated ejection fraction is 65 %. Stage 1 diastolic dysfunction. No regional wall motion abnormalities noted. Right Ventricle Mildly dilated right ventricle. ICD or pacer leads identified within the right ventricle. Normal systolic function. Atria Normal left atrium. Normal right atrium. Hypermobile atrial septum. Positive bubble study. Mitral Valve The mitral valve is structurally normal. No prolapse or stenosis seen. Tricuspid Valve Normal tricuspid valve. Mild (1+) tricuspid valve insufficiency. Right ventricular systolic pressure estimated to be 46 mmHg. Mild pulmonary hypertension. Aortic Valve Trisinus/trileaflet aortic valve. Mild diffuse aortic valve thickening. Pulmonic Valve Normal pulmonic valve. Great Vessels Normal aortic root. Normal arch. Normal inferior vena cava. Inferior vena cava collapse with sniff. Pericardium/Pleural No pericardial effusion. Medication 22 gauge I.V. with prn adaptor inserted into right arm. Performed a rapid injection of agitated mix of 9 cc saline and 1cc air to assess for atrial septal defect. MMode/2D Measurements & Calculations LVIDd: 4.8 cm IVSd: 1.1 cm Ao root diam: 3.7 cm LVIDs: 3.3 cm LVPWd: 1.1 cm LA dimension: 3.3 cm RVDd: 3.7 cm FS: 29.6 % LAV(MOD-bp): 65.1 ml LVAd ap4: 30.4 cm2 SV(MOD-sp4): 62.0 ml LAV(MOD-bp) Indexed: 37.3 ml/m2 EDV(MOD-sp4): 104.4 ml LAV(MOD-sp2): 68.1 ml EDV(sp4-el): 104.2 ml LAV(MOD-sp4): 60.8 ml LVAs ap4: 18.2 cm2 ESV(MOD-sp4): 42.5 ml ESV(sp4-el): 40.9 ml EF(MOD-sp4): 59.3 % EF(sp4-el): 60.8 % SV(sp4-el): 63.3 ml LA A4 area: 21.1 cm2 RA A4 area: 13.2 cm2 Time Measurements MV dec time: 0.25 sec Doppler Measurements & Calculations MV E max jason: 39.6 cm/sec Lat Peak E' Jason: 9.2 cm/sec Med Peak E' Jason: 4.0 cm/sec MV A max jason: 71.3 cm/sec E/E' lat: 4.3 E/E' med: 9.9 MV E/A: 0.56 MV V2 max: 92.9 cm/sec MV P1/2t max jason: 65.9 cm/sec Ao V2 max: 108.7 cm/sec MV max P.5 mmHg MV P1/2t: 74.1 msec Ao max P.7 mmHg MV V2 mean: 50.5 cm/sec Ao V2 mean: 67.0 cm/sec MV mean P.2 mmHg MV dec slope: 260.7 cm/sec2 Ao mean P.1 mmHg MV V2 VTI: 21.2 cm MVA(P1/2t): 3.0 cm2 Ao V2 VTI: 20.2 cm LV V1 max: 85.7 cm/sec PA V2 max: 73.2 cm/sec TR max jason: 331.6 cm/sec LV V1 max P.9 mmHg TR max P.0 mmHg LV V1 mean P.5 mmHg LV V1 mean: 57.4 cm/sec LV V1 VTI: 18.3 cm Interpretation Summary The estimated ejection fraction is 65 %. Stage 1 diastolic dysfunction. Hypermobile atrial septum. Positive bubble study Mild (1+) tricuspid valve insufficiency. Right ventricular systolic pressure estimated to be 46 mmHg. Mild pulmonary hypertension. In comparison to echo report dated 12/16/2017, LV function has improved from 45% to 65%. RVSP has remained the same. Ordering Physician: Caes Cantrell Referring Physician: Case Cantrell Performed By: Pedro Pablo Brownign RCS
== END ==
PROVIDERS: Family Provider Family Medicine; PCP Family Medicine; Referring Provider Internal Medicine Cardiovascular Disease; Visit Provider Internal Medicine Cardiovascular Disease
DX: R06.02 Shortness of breath (principal)
CPT/HCPCS: 93306; A4216

== ENCOUNTER 2018-09-14 06:00 | Outpatient (RCR) | payer SELFPAY ==
[2018-07-07 06:29] VITALS: BMI 25.2
== END 2018-09-16 23:59 ==
LOC: PR 06:00
PROVIDERS: Family Provider Family Medicine; PCP Family Medicine; Referring Provider Internal Medicine Critical Care Medicine; Visit Provider Internal Medicine Critical Care Medicine
DX: Z00.00 Encounter for general adult medical examination without abnormal findings (principal)

== ENCOUNTER → 2018-09-27 17:11 | Outpatient (CLI) | payer SELFPAY ==
[2018-09-27 16:26] VITALS: BMI 25.7
== END ==
PROVIDERS: Family Provider Family Medicine; PCP Family Medicine; Visit Provider Internal Medicine Hematology & Oncology
DX: Z51.89 Encounter for other specified aftercare (principal); D64.81 Anemia due to antineoplastic chemotherapy

== ENCOUNTER → 2018-09-28 08:18 | Outpatient (CLI) | payer MEDICARE, OTHER, SELFPAY ==
[2018-09-27 16:26] VITALS: BMI 25.7
[2018-09-28] VITALS (7 sets, daily range): BP systolic 90–125; BP diastolic 04–45; PULSE 67–79; RESP 16–18; TEMP 36.1–36.5; O2SAT 98–100; BMI 26.6
== END ==
PROVIDERS: Family Provider Family Medicine; PCP Family Medicine; Visit Provider Internal Medicine Hematology & Oncology
DX: D64.81 Anemia due to antineoplastic chemotherapy (principal)
CPT/HCPCS: 36430; 86850; 86900; 86920; 86922; J7040; P9016; A4216

== ENCOUNTER 2018-10-07 06:00 | Outpatient (RCR) | payer SELFPAY ==
[2018-09-17 01:37] VITALS: BMI 25.2
== END 2018-10-14 23:59 ==
LOC: PR 06:00
PROVIDERS: Family Provider Family Medicine; PCP Family Medicine; Referring Provider Internal Medicine Critical Care Medicine; Visit Provider Internal Medicine Critical Care Medicine
DX: Z00.00 Encounter for general adult medical examination without abnormal findings (principal)

== ENCOUNTER 2018-10-12 06:57 | Outpatient (RCR) | payer MEDICARE, OTHER, SELFPAY ==
[2018-09-17 01:37] VITALS: BMI 25.2
[2018-09-20 06:11] LABS: Prothrombin Time Fingerstick 23.5 SEC (11.9-14.4)
[2018-10-05 07:46] LABS: Prothrombin Time Fingerstick 15.6 SEC (11.9-14.4)
[2018-10-12 07:52] LABS: International Normalized Ratio 1.3; Prothrombin Time (Protime)PT. 15.9 SECONDS (11.7-14.9)
[2018-10-12 08:12] LABS: AST(SGOT) 30 U/L (15-37); Alanine Aminotransfer ALT/SGPT 23 U/L (16-61); Albumin, Serum 3.4 g/dL (3.2-5.0); Alkaline Phosphatase 46 U/L (45-117); Bilirubin, Direct 0.17 mg/dL (0.00-0.30); Cholesterol 129 mg/dL (200); Globulin 3.8 g/dL (2.2-4.2); High Density Lipoprotein 96 mg/dL; Protein, Total 7.2 g/dL (6.4-8.2); Triglycerides 79 mg/dL; Very Low Density Lipoprotein 16 mg/dL (5-40)
== END 2018-10-14 13:39 | disposition home or self-care (01) ==
LOC: LAB 06:57
PROVIDERS: Nurse Practitioner Family; Family Provider Family Medicine; PCP Family Medicine; Referring Provider Internal Medicine Cardiovascular Disease; Visit Provider Internal Medicine Cardiovascular Disease
DX: I51.3 Intracardiac thrombosis, not elsewhere classified (principal); Z79.01 Long term (current) use of 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; E78.5 Hyperlipidemia, unspecified
CPT/HCPCS: 36415; 36416; 80061; 80076; 85610

== ENCOUNTER → 2018-10-18 09:12 | Outpatient (CLI) | payer MEDICARE, OTHER, SELFPAY ==
[2018-10-15 15:42] VITALS: BMI 26.6
--- NOTE | 2018-10-18 07:00 | PET_ITS ---
EXAMINATION: FDG PET CT INDICATIONS: A 67-year-old male with reported history of carcinoma of the lung presenting for restaging examination. COMPARISON EXAMINATION: Previous FDG PET study dated 06/28/18. TECHNIQUE: Following the intravenous administration of 15 mCi of F-18 deoxyglucose via the right antecubital fossa, multiplanar image acquisitions of the neck, chest, abdomen and pelvis to level of mid thigh, obtained at one hour post radiopharmaceutical administration contemporaneously interpreted with the current CT of the neck, chest, abdomen and pelvis to level of mid thigh, dated 10/18/18 via coregistration and previous FDG PET study dated 06/28/18 reveal: SERUM GLUCOSE LEVEL: 93 mg/dl. HEIGHT: 65 inches. WEIGHT: 154 lbs. FINDINGS: 1. There is no quantitative scintigraphic evidence of abnormal increased glucose metabolism on meticulous inspection of whole body acquisitions to include all three axis reconstructions. 2. Normal physiologic distribution of the radiopharmaceutical is apparent in the hepatic and splenic parenchyma, both renal units, bladder and visualized intestinal tract. There is uniform distribution of the radiopharmaceutical concentration defined in the visualized cerebellar hemispheres and cerebral cortical structures.? Diffuse intestinal tract activity is noted throughout all four quadrants of the abdominal-pelvic retroperitoneum, mesentery consistent with normal physiologic distribution of the radiopharmaceutical. The previously identified left upper lobe hypermetabolic focus noted on the FDG PET study dated 06/28/18 is not apparent on the current examination. Facilitated uptake previously described in the right posterior ilium, as well as left hemipelvic mesentery is not visualized on the present evaluation. A persistent noncalcified parenchymal density remains evident in the left upper hemithorax pulmonary parenchyma, left upper lobe demonstrating a current maximal axial diameter of 7.9 mm. No definitive increase in glucose metabolism is discerned. The prior defined morphologic-anatomic changes noted on CT of the neck, chest, abdomen and pelvis manifest on the FDG PET CT study dated 06/28/18 are essentially unchanged on the present examination. PET/PET/CT Tumor Base -Thigh Subs IMPRESSION: 1. NEGATIVE EXAMINATION. There is no definitive quantitative scintigraphic evidence of recurrent-metastatic viable neoplasm. 2. There is interim metabolic resolution of the prior defined hypermetabolic foci to include the left upper hemithorax pulmonary parenchymal, right posterior ilium and left hemipelvic mesenteric hypermetabolic abnormalities. 3. Overall, compared to the prior FDG PET study dated 06/28/18, there is current absence of defined viable neoplastic disease with interim metabolic resolution of all prior defined hypermetabolic abnormalities. Electronic Signature Iker Montalvo D.O. Electronically Signed: Iker Montalvo DO at 23:36 EST Tel , Service support ,
== END ==
PROVIDERS: Family Provider Family Medicine; PCP Family Medicine; Referring Provider Internal Medicine Hematology & Oncology; Visit Provider Internal Medicine Hematology & Oncology
DX: C34.12 Malignant neoplasm of upper lobe, left bronchus or lung (principal)
CPT/HCPCS: 78815; A9552

== ENCOUNTER 2018-10-23 08:50 | Outpatient (CLI) | payer MEDICARE, OTHER, SELFPAY ==
[2018-10-15 15:42] VITALS: BMI 26.6
[2018-10-23] VITALS (10 sets, daily range): BP systolic 120–150; BP diastolic 28–94; PULSE 73–86; RESP 16–18; TEMP 36.8–37.2; O2SAT 93–98; BMI 25.2
[2018-10-23] MEDS: 0.9% NaCl Peripheral Flush Adult/Peds IV ×3 (13:47→13:51)
--- NOTE | 2018-10-23 16:16 | NURSING ---
pt states he has an infusion due on Thursday, requested we leave peripheral IV access intact for that. sites reinforced and pt educated on discharge with IV
== END 2018-10-23 17:17 | disposition home or self-care (01) ==
LOC: MEDOUTP 08:51 → MS2 08:51
PROVIDERS: Family Provider Family Medicine; PCP Family Medicine; Referring Provider Internal Medicine Hematology & Oncology; Visit Provider Internal Medicine Hematology & Oncology
DX: Z51.89 Encounter for other specified aftercare (principal); E83.42 Hypomagnesemia
CPT/HCPCS: 96360; 96361 ×2; 36430; 86850; 86900; 86920; 86922; J7040; P9016; A4216

== ENCOUNTER 2018-11-11 06:00 | Outpatient (RCR) | payer SELFPAY ==
[2018-10-15 15:42] VITALS: BMI 26.6
== END 2018-11-14 23:59 ==
LOC: PR 06:00
PROVIDERS: Family Provider Family Medicine; PCP Family Medicine; Referring Provider Internal Medicine Critical Care Medicine; Visit Provider Internal Medicine Critical Care Medicine
DX: Z00.00 Encounter for general adult medical examination without abnormal findings (principal)

== ENCOUNTER 2018-11-11 07:03 | Outpatient (RCR) | payer MEDICARE, OTHER, SELFPAY ==
[2018-10-15 15:42] VITALS: BMI 26.6
[2018-10-19 07:26] LABS: Prothrombin Time Fingerstick 17.1 SEC (11.9-14.4)
[2018-11-11 07:25] LABS: Prothrombin Time Fingerstick 31.3 SEC (11.9-14.4)
== END 2018-11-11 08:03 | disposition home or self-care (01) ==
LOC: LAB 07:03
PROVIDERS: Family Provider Family Medicine; PCP Family Medicine; Referring Provider Internal Medicine Cardiovascular Disease; Visit Provider Internal Medicine Cardiovascular Disease
DX: I51.3 Intracardiac thrombosis, not elsewhere classified (principal); Z79.01 Long term (current) use of 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
CPT/HCPCS: 36416; 85610

== ENCOUNTER 2018-11-23 06:00 | Outpatient (RCR) | payer SELFPAY ==
[2018-11-12 09:36] VITALS: BMI 26.6
== END 2018-12-14 23:59 ==
LOC: PR 06:00
PROVIDERS: Family Provider Family Medicine; PCP Family Medicine; Referring Provider Internal Medicine Critical Care Medicine; Visit Provider Internal Medicine Critical Care Medicine
DX: Z00.00 Encounter for general adult medical examination without abnormal findings (principal)

== ENCOUNTER → 2018-11-23 06:47 | Outpatient (CLI) | payer MEDICARE, OTHER, SELFPAY ==
[2018-10-07 08:00] VITALS: BMI 26.6
[2018-11-12 09:36] VITALS: BMI 26.6
--- NOTE | 2018-11-23 13:37 | PFT ---
INTRODUCTION: The patient is a 67-year-old male that presents for pulmonary function studies secondary to a diagnosis of COPD. Respiratory therapy reports good patient effort. Bronchodilators were used during testing. INTERPRETATION: Forced expiration spirometry demonstrates the presence of a very severe large airways obstructive ventilatory defect. There was a significant response to aerosolized bronchodilators, based upon change noted in FVC. Spirograms do not plateau indicating slow emptying of the lungs. Body plethysmography was performed and reveals an elevated RV to 179% of predicted, indicative of underlying air trapping. Diffusing capacity by single breath CO is severely reduced at 39% of predicted. IMPRESSION: Partially reversible very severe large airways obstructive ventilatory defect with associated air trapping and symmetric reduction in diffusing capacity.
== END ==
PROVIDERS: Family Provider Family Medicine; PCP Family Medicine; Referring Provider Nurse Practitioner Acute Care; Visit Provider Nurse Practitioner Acute Care
DX: J44.9 Chronic obstructive pulmonary disease, unspecified (principal)
CPT/HCPCS: 94060; 94726; 94729

== ENCOUNTER 2018-11-25 10:09 | Outpatient (RCR) | payer MEDICARE, OTHER, SELFPAY ==
[2018-11-12 09:36] VITALS: BMI 26.6
[2018-11-25 10:26] LABS: Prothrombin Time Fingerstick 31.9 SEC (11.9-14.4)
== END 2018-12-14 16:00 | disposition home or self-care (01) ==
LOC: LAB 10:09
PROVIDERS: Family Provider Family Medicine; PCP Family Medicine; Referring Provider Internal Medicine Cardiovascular Disease; Visit Provider Internal Medicine Cardiovascular Disease
DX: I51.3 Intracardiac thrombosis, not elsewhere classified (principal); Z79.01 Long term (current) use of 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
CPT/HCPCS: 36416; 85610

== ENCOUNTER 2018-12-01 13:05 | Inpatient (IN) | payer MEDICARE, OTHER, SELFPAY ==
[2018-11-29 06:25] VITALS: BMI 25.2
[2018-12-01] VITALS (27 sets, daily range): BP systolic 63–170; BP diastolic 45–139; PULSE 64–111; RESP 14–24; TEMP 36.1–36.7; O2SAT 97–100; BMI 26.6
--- NOTE | 2018-12-01 13:24 | CT_ITS ---
STUDY: CT BRAIN WITH AND WITHOUT CONTRAST REASON FOR EXAM: Male, 67 years old. Memory difficulties. Fatigue and increasing weakness. The patient is currently receiving intracranial radiation. RADIATION DOSAGE (If Supplied By Facility): CTDIvol = ( 44.99 ) mGy, DLP = ( 1482.55 ) mGycm TECHNIQUE: Transaxial CT imaging of the brain was performed pre and post contrast administration. The examination was performed with intravenous administration of 50CC IV Isovue 370. Individualized dose optimization techniques were used for this CT. COMPARISON: Comparison is made with prior study dated May 13, 2018. FINDINGS: Normal soft tissue structures. Normal calvarium. There is mild cerebral atrophy with widening of the extra-axial spaces and ventricular dilatation. There are areas of decreased attenuation within the white matter tracts of the supratentorial brain, consistent with microvascular disease changes. Normal basal ganglia and thalami. Normal brainstem. Normal cerebellum. There is no intracranial hemorrhage. There are no findings of an acute ischemic infarction. Normal visualized paranasal sinuses. CT/Brain/Head W/WO Contrast IMPRESSION: Chronic involutional changes of the brain. Electronically Signed: Sebastien Zheng, at 14:41 EDT , Service support ,
--- NOTE | 2018-12-01 13:24 | EKG12_ITS ---
Test Reason : FATIGUE Blood Pressure : / mmHG Vent. Rate : 070 BPM Atrial Rate : 070 BPM P-R Int : 264 ms QRS Dur : 114 ms QT Int : 438 ms P-R-T Axes : 074 054 074 degrees QTc Int : 473 ms Sinus rhythm with 1st degree A-V block Low Voltage QRS (Limb Leads) Nonspecific ST and T wave abnormality Prolonged QT Abnormal ECG Confirmed by OLAF SUBRAMANIAN, HÉCTOR ([id number]), editor department ZULAY DEAN ([id number]) on 12/06/2018 9:58:54 AM Referred By: Giancarlo Ralph Confirmed By:HÉCTOR BABIN MD
--- NOTE | 2018-12-01 13:24 | RAD_ITS ---
STUDY: X-RAY CHEST REASON FOR EXAM: Male, 67 years old. Weakness and fatigue. Involuntary twitching. TECHNIQUE: AP and lateral views of the chest. COMPARISON: Comparison is made with prior study dated August 02, 2018. FINDINGS: EKG electrodes are seen. There is elevation of the right hemidiaphragm. There is no demonstrated pleural abnormality. Normal size heart. A left-sided unipolar pacemaker is seen. Normal mediastinum and carina. Normal visualized pulmonary arteries. There is atherosclerotic calcification of the aortic arch with tortuosity. There are diffuse degenerative changes of the visualized thoracic spine. Multiple healed right rib fractures. There is no demonstrated abnormality of the visualized soft tissue structures of the upper abdomen. RAD/Chest PA and Lateral IMPRESSION: No acute abnormality is seen. Electronically Signed: Sebastien Zheng, at 14:49 EDT , Service support ,
[2018-12-01 13:43] LABS: Hematocrit 24.9 % (40-54); Hemoglobin 8.8 g/dl (13.0-16.5); Mean Corp Hgb Conc 35.3 g/gl (32-36); Mean Corpuscular Hgb 33.5 pg (27.0-32.0); Mean Corpuscular Volume 94.7 fL (80-94); Platelet Count 161 K/mm3 (150-450); RBC Distribution Width CV 15.7 % (11.6-14.6); Red Blood Count 2.63 M/mm3 (4.6-6.2); Scan Indicated on CBC? Y/N NO
[2018-12-01 14:05] LABS: Anion Gap 9 (5-15); BUN 14 mg/dL (7-18); BUN/Creat Ratio 18.2 RATIO (10-20); Calcium,Total 8.5 mg/dL (8.5-10.1); Chloride 74 mmol/L (98-107); Creatinine, Serum 0.77 mg/dL (0.70-1.30); EST Glomerular Filtration Rate 107 mL/min (>60); Est Glom Filt Rate - Afr Amer 130 mL/min (>60); Estimated Creatinine Clearance 62.35 ml/min; Glucose 90 mg/dL (74-106); Sodium Level 118 mmol/L (136-145)
[2018-12-01] MEDS: 0.9% Normal Saline 1,000 ML 100 ML IV (14:42)
--- NOTE | 2018-12-01 14:53 | NURSING ---
PCU HYPONATREMIA PAINTSIL
--- NOTE | 2018-12-01 14:55 | PCM.HP.STD ---
Problem List (1) Lung cancer Status: Acute Qualifiers: Laterality: unspecified laterality Lung location: unspecified part of lung Qualified Code(s): C34.90 - Malignant neoplasm of unspecified part of unspecified bronchus or lung (2) Anemia Status: Acute Qualifiers: Anemia type: unspecified type Qualified Code(s): D64.9 - Anemia, unspecified (3) Implantable cardioverter-defibrillator (ICD) in situ Status: Chronic Comment: [employer] Dynogen EL ICD, model D150; Seriao # [id number] (4) Severe left ventricular systolic dysfunction Status: Chronic Comment: EF 15-20% per heart cath 08/29/2016; 20-35% per echo 12/17/2016 (5) 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 Cantrell (6) PVD (peripheral vascular disease) Status: Chronic History of Present Illness Date of Admission: 12/01/18 Chief Complaint: Confusion The patient is a 67 year old M with past medical history of non-small cell lung cancer, status post chemotherapy, currently receiving prophylactic whole brain radiotherapy, history of hyponatremia, chronic respiratory failure on 3L oxygen who comes in with complains of confusion. Per his , he was reportedly acting confused, unable to tie his shoes. He started whole brain prophylactic radiotherapy a week ago. He has been progressively fatigued. He has also been drinking lots of water since starting the radiotherapy because of thirst. Patient denied any cone fusion at the time of being examined. He is alert oriented x3. He admits to having a foggy mind and things take a while to come back to him. He denied any fever or chills or recent illnesses or diarrhea. Vitals in the ED show blood pressure 159/73, heart rate of 78, respiratory rate of 18, SPO2 of 97% on 3 L of oxygen. His admitting blood work showed RBC count of 5.0, hemoglobin 8.8, platelet count 161, sodium 116, potassium 4.2, chloride 76, bicarbonate 33, BUN 14, creatinine 0.81, troponins were negative. CT scan of the brain showed chronic involuntary changes of the brain. Chest x-ray shows no acute abnormalities Past Medical History Past Medical History (Chronic Problems): Chronic Problems (Last Reviewed 11/29/18 @ 06:25 by Radha Payan) Implantable cardioverter-defibrillator (ICD) in situ (Chronic 12/27/16) [employer] Dynogen EL ICD, model D150; Seriao # [id number] Secondary pulmonary arterial hypertension (Chronic) Nonischemic cardiomyopathy (Chronic) EF 15-20% per heart cath 08/29/2016; 20-35% per echo 12/17/2016 Severe left ventricular systolic dysfunction (Chronic) EF 15-20% per heart cath 08/29/2016; 20-35% per echo 12/17/2016 History of left heart catheterization (Chronic) Mild, nonobstructive CAD per [facility] 08/29/2016 @ [facility] per Dr. Cantrell Atherosclerotic heart disease of [place] de[place] coronary artery without angina pectoris (Chronic) Mild, nonobstructive CAD per [facility] 08/29/2016 @ [facility] per Dr. Cantrell PVD (peripheral vascular disease) (Chronic) Long-term use of high-risk medication (Chronic) Stage 3 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) FEV1 31 PND (paroxysmal nocturnal dyspnea) (Chronic) Hyperlipidemia (Chronic) emt intermediate current use of anticoagulant (Chronic) Psoriatic arthritis (Chronic) Acne cystica (Chronic) CHF (congestive heart failure), NYHA class I (Chronic) Pulmonary hypertension (Chronic) RVSP 47mm hg per echo 08/28/2016 (unable to estimate per Echo 12/17/2016) Medical History: Medical History (Last Reviewed 11/29/18 @ 06:25 by Radha Payan) Left ventricular thrombus (Acute) I51.3 Nonischemic cardiomyopathy (Chronic) I42.8 EF 15-20% per heart cath 08/29/2016; 20-35% per echo 12/17/2016 Severe left ventricular systolic dysfunction (Chronic) I51.9 EF 15-20% per heart cath 08/29/2016; 20-35% per echo 12/17/2016 Atherosclerotic heart disease of [place] de[place] coronary artery without angina pectoris (Chronic) I25.10 Mild, nonobstructive CAD per [facility] 08/29/2016 @ [facility] per Dr. Cantrell PVD (peripheral vascular disease) (Chronic) I73.9 Stage 3 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) J44.9 FEV1 31 PND (paroxysmal nocturnal dyspnea) (Chronic) R06.00 Hyperlipidemia (Chronic) E78.5 SOB (shortness of breath) (Acute) R06.02 emt intermediate current use of anticoagulant (Chronic) Z79.01 Acute on chronic respiratory failure with hypoxia (Resolved) J96.21 Psoriatic arthritis (Chronic) L40.50 CHF (congestive heart failure), NYHA class I (Chronic) I50.9 Pulmonary hypertension (Chronic) I27.2 RVSP 47mm hg per echo 08/28/2016 (unable to estimate per Echo 12/17/2016) Anemia D64.9 Arthritis M19.90 Cancer C80.1 Heart disease I51.9 Lung disease J98.4 SOB (shortness of breath) R06.02 CAP (community acquired pneumonia) (Resolved) J18.9 Chronic respiratory failure with hypoxia and hypercapnia (Resolved) J96.11, J96.12 Allergies No Known Allergies Allergy (Verified 11/29/18 06:24) Home Medications: Ambulatory Orders Medication Instructions Recorded Hydroxychloroquine [Plaquenil] 200 mg PO BIDCM 08/27/16 Multivitamin [Multiple Vitamins] 1 ea PO DAILY 08/27/16 fluticasone propionate 50 2 spray INTRANASAL BID PRN PRN g 10/15/17 mcg/actuation nasal spray,suspension atorvastatin 40 mg tablet 40 mg PO QHS #90 tab 07/27/18 atezolizumab 1,200 mg/20 mL (60 60 mg IV UD ml 08/27/18 mg/mL) intravenous solution levothyroxine 100 mcg tablet 100 mcg PO DAILY 09/28/18 aclidinium bromide 400 1 inh INHALATION BID 10/07/18 mcg/actuation breath activated powder inhaler albuterol sulfate HFA 90 2 puff INHALATION Q4H PRN PRN g 11/25/18 mcg/actuation aerosol inhaler budesonide-formoterol HFA 160 2 puff INHALATION BID 11/25/18 mcg-4.5 mcg/actuation aerosol inhaler aspirin 81 mg tablet,delayed 81 mg PO QODAY tab 11/29/18 release Carvedilol 6.25 mg PO BID 12/01/18 Cetirizine HCl [Zyrtec] 10 mg PO DAILY 12/01/18 Cholecalciferol (VIT D3) [Vitamin 1,000 unit PO BID 12/01/18 D] Furosemide 80 mg PO DAILY 12/01/18 Furosemide [Lasix] 40 mg PO QHS 12/01/18 Losartan Potassium [Cozaar] 25 mg PO DAILY 12/01/18 Magnesium Oxide [Mag-Ox 400] 400 mg PO BID 12/01/18 Omeprazole 40 mg PO DAILY 12/01/18 Warfarin Sodium 5 mg PO SUSA 12/01/18 Warfarin Sodium [Coumadin] 7.5 mg PO MOTUWETHFR 12/01/18 potassium chloride ER 20 mEq 20 meq PO DAILY 12/01/18 tablet,extended release Surgical History: Surgical History (Last Reviewed 11/29/18 @ 06:25 by Radha Paayn) Implantable cardioverter-defibrillator (ICD) in situ (Chronic) Onset Date: 12/27/16 Z95.810 [employer] Dynogen EL ICD, model D150; Seriao # [id number] History of left heart catheterization (Chronic) Z98.890 Mild, nonobstructive CAD per [facility] 08/29/2016 @ [facility] per Dr. Cantrell Surgical History: - - Status post ICD, history of left heart catheterization Psychiatric History: No pertinent psych hx Smoking Status: Former smoker Tobacco Use: Non-smoker Alcohol: None Drugs: None - *Family History Maternal Family History: Family History (Last Reviewed 11/29/18 @ 06:25 by Radha Payan) Mother Heart disease Brother CVA (cerebral vascular accident) Father Cancer Grandmother Diabetes History Items: - - No COPD Paternal Family History: Family History (Last Reviewed 11/29/18 @ 06:25 by Radha Payan) Mother Heart disease Brother CVA (cerebral vascular accident) Father Cancer Grandmother Diabetes History Items: - - No COPD Review of Systems Constitutional: Reports: Anorexia, Malaise, Fatigue. Denies: Chills, Fever, Night Sweats, Weakness, Weight Change Eyes: Denies: Blurred vision, Cataracts, Conjunctivae Inflammation, Drainage, Pain, Redness HEENT: Denies: Difficulty Hearing, Difficulty Swallowing, Head Aches, Hearing Changes, Sinus Congestion, Sinus Drainage Cardiovascular: Denies: Chest Pain, Claudication, Orthopnea, Palpitations, Paroxysmal Noc. Dyspnea Respiratory: Denies: Cough, Hemoptysis, Shortness of Breath, Shortness of breath at rest, Shortness of breath upon exertion, Sputum production Gastrointestinal: Denies: Abdominal Pain, Constipation, Hematemesis, Hematochezia, Nausea, Vomiting Genitourinary: Denies: Dysuria, Frequency, Incontinence Musculoskeletal: Denies: Joint Pain, Joint stiffness, Joint swelling, Joint Tenderness Skin: Denies: Rash, Wounds Neurological: Denies: Numbness, Tingling, Focal weakness Psychiatric: Denies: Anxiety, Depression, Homicidal Ideations, Suicidal Ideations Hematologic/ Lymphatic: Denies: Easy Bruising, Easy Bleeding VTE Information - Inpt Only VTE Present on Admission: No VTE Pharm Prophylaxis ordered?: Yes Patient Problems: Active and Suspected Problems (Last Reviewed 11/29/18 @ 06:25 by Radha Payan) Lung cancer (Acute) Anemia (Acute) - Physical Exam General: Alert, Oriented x3, Cooperative, No apparent distress, - - on 3L oxygen HEENT: Atraumatic, PERRLA, EOMI, Normocephalic Oral: Moist Mucosa Neck: Supple Lungs: Clear to auscultation, Normal air movement Cardiovascular: Regular rate, Regular Rhythm, Normal S1, Normal S2, - - 4/6 holosystolic murmur Abdomen: Bowel Sounds Present, Soft, Non Tender, Non-Distended, No Hepato-splenomegaly Extremities: Edema - bilateral pedal edema +1 Skin: No rashes, No breakdown Musculoskeletal: No Tenderness to Palpation of Joints or Extremities Lymphatic: No Cervical, Supraclavicular, or Inguinal Adenopathy Neurological: Cranial nerves II-XII grossly intact, Neuro grossly intact Psych/Mental Status: Normal Affect, Appropriate Vital Signs Temp Pulse Resp BP Pulse Ox 97 F L 78 18 159/73 H 97 12/01/18 13:06 12/01/18 13:06 12/01/18 13:06 12/01/18 13:06 12/01/18 13:06 Oxygen Flow Rate (L/min) 3 Oxygen Delivery Method Nasal Cannula Weight: 72.7 kg Body Mass Index (BMI) 26.6 Finger Stick Blood Glucose 126 Laboratory Tests Past 24 Hrs 12/01/18 12/01/18 13:35 13:35 WBC 5.0 RBC 2.63 L Hgb 8.8 L Hct 24.9 L MCV 94.7 H MCH 33.5 H MCHC 35.3 RDW 15.7 H RDW Differential 52.0 H Plt Count 161 MPV 8.0 Sodium 118 L* Potassium 4.0 Chloride 74 L* Carbon Dioxide 35.0 H Anion Gap 9 BUN 14 Creatinine 0.77 Estim Creat Clear Calc 62.35 Est GFR (MDRD) Af Amer 130 Est GFR (MDRD) Non-Af 107 BUN/Creatinine Ratio 18.2 Glucose 90 Calcium 8.5 Troponin I < 0.015 Assessment/Plan All Active Problems (Last Reviewed 11/29/18 @ 06:25 by Radha Payan) Lung cancer (Acute) Anemia (Acute) Skin tear of left forearm without complication (Acute) Skin tear of right forearm without complication (Acute) Lesion of pelvic bone (Acute) Cancer of upper lobe of left lung (Acute) Pneumothorax after biopsy (Acute) Shortness of breath (Acute) Left ventricular thrombus (Acute) Laceration of right elbow without complication (Acute) Abrasion of skin (Acute) Hx of colonoscopy (Resolved) Diverticula of colon (Acute) SOB (shortness of breath) (Acute) Acute respiratory failure with hypoxia (Resolved) Acute on chronic respiratory failure with hypoxia (Resolved) COPD with acute exacerbation (Resolved) CAP (community acquired pneumonia) (Resolved) Chronic respiratory failure with hypoxia and hypercapnia (Resolved) 67 year old M with past medical history of non-small cell lung cancer, status post chemotherapy, currently receiving prophylactic whole brain radiotherapy, history of hyponatremia, chronic respiratory failure on 3L oxygen who comes in with complains of confusion. 1. 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 Hyponatremia, severe, likely secondary to SIADH, nephrology consulted, Recommends fluid restriction with sodium salt, will trend BMP every 4 3. 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 Microcytic microchromic anemia, hemoglobin is 8.8, previous hemoglobin was 10.4, will check for iron stores, stool for occult blood Will trend HH 5. Cardiomyopathy, nonischemic, hsitory of LV thrombus, EF 15-20%, status post ICD, no signs of acute exacerbation 6. Chronic respiratory failure secondary COPD, h/o pneumothoraxno signs of acute COPD exacerbation 7. DVT PPx- on coumadin, INR is subtherapeutic at 1.3, would hold coumadin for now and put on therapeutic Lovenox Event note: Rapid response was called for patient around 6 PM when he has started seizing. Recent sodium level prior to this episode was 121. Patient was reported to have generalized tonic-clonic seizure, believed to have aspirated his dinner. He was suctioned and some food contents were suctioned. Patient was transferred to the ICU. He was maintaining his saturation at 94-96% on the Ambu bag. He did not appear to be arousing from his postictal state. His GCS was 3/15. His vitals appeared stable, spo2 100% on ambu bag Discussed with his about his CODE STATUS. confirmed that patient is a DNR but would like patient to be intubated if there is a chance that he would recover. Attempt at intubating with the assistance of the glidoscope, patient started biting on a kaleidoscope and visualization was difficult. 20 mg IV etomidate was given, patient subsequently intubated with a 7.5 ET tube, 22 cm to the mouth, with positive color change. Discussed with nephrology, patient will be started on hypertonic saline 3%, 30 mils an hour for a total of 100 mils, BMP every, aiming for sodium of 124 Patient will be managed on the mechanical ventilator at RR 14, tidal volume 450, FiO2 50%, PEEP of 5, repeat blood gas in 1 hour. If vitals remain stable, patient will be maintained on propofol. Code Visit Inpatient E&M: [id number] Init [place] [id number] Procedures: 90791 Critial Care 1st Hr
--- NOTE | 2018-12-01 16:20 | ED.VISSUMM ---
- ER Visit Summary Date of Service: 12/01/18 Chief Complaint: Weakness and fatigue History of Present Illness: The patient is a 67 M presenting secondary to weakness and fatigue. Patient has an underlying history of lung cancer. He has been getting radiation treatment over the last 2 weeks. Apparently has been getting increasingly weak and fatigued, but today he was having twitching in his bilateral hands and was confused as he did not know how to tie his shoes. No visual changes, no speech changes, no numbness or weakness associated with it. Review of systems otherwise negative. Physical Examination: Vital signs within normal limits. Well-nourished male no acute distress. Moist mucous membranes. Minimal conjunctival pallor is noted, no scleral icterus. Neck was supple. Heart regular rate and rhythm lungs clear abdomen soft nontender extremities nontender nonedematous skin normal color no rash. Patient was alert and oriented no lateralizing neurological deficits. Test Results: CBC shows anemia 8.8, chemistry shows profound hyponatremia 118. CT brain shows chronic changes, chest x-ray unremarkable. Emergency Department Course and Treatment: Patient presented secondary to neurologic changes and twitching in his hands. He had a nonfocal neurologic exam. Workup as noted above shows profound hyponatremia. This likely is the cause of the patient's symptoms. He was started on gentle normal saline hydration, and was admitted to the PCU. Disposition: Admission Impression: 1. Hyponatremia Critical care time 35 minutes This note was generated with [employer] dictation software. It may contain incorrect words, spelling, and punctuation that were not noted in review of the chart prior to signing ED Disposition - Plan for ED Patient: Disposition: Acute Care Hospital [facility]
--- NOTE | 2018-12-01 16:23 | ED.DCSUM_ITS ---
- ER Visit Summary Date of Service: 12/01/18 Chief Complaint: Weakness and fatigue History of Present Illness: The patient is a 67 M presenting secondary to weakness and fatigue. Patient has an underlying history of lung cancer. He has been getting radiation treatment over the last 2 weeks. Apparently has been getting increasingly weak and fatigued, but today he was having twitching in his bilateral hands and was confused as he did not know how to tie his shoes. No visual changes, no speech changes, no numbness or weakness associated with it. Review of systems otherwise negative. Physical Examination: Vital signs within normal limits. Well-nourished male no acute distress. Moist mucous membranes. Minimal conjunctival pallor is noted, no scleral icterus. Neck was supple. Heart regular rate and rhythm lungs clear abdomen soft nontender extremities nontender nonedematous skin normal color no rash. Patient was alert and oriented no lateralizing neurological deficits. Test Results: CBC shows anemia 8.8, chemistry shows profound hyponatremia 118. CT brain shows chronic changes, chest x-ray unremarkable. Emergency Department Course and Treatment: Patient presented secondary to neurologic changes and twitching in his hands. He had a nonfocal neurologic exam. Workup as noted above shows profound hyponatremia. This likely is the cause of the patient's symptoms. He was started on gentle normal saline hydration, and was admitted to the PCU. Disposition: Admission Impression: 1. Hyponatremia Critical care time 35 minutes This note was generated with [employer] dictation software. It may contain incorrect words, spelling, and punctuation that were not noted in review of the chart prior to signing ED Disposition - Plan for ED Patient: Disposition: Acute Care Hospital [facility]
[2018-12-01 16:50] LABS: Anion Gap 7 (5-15); BUN 14 mg/dL (7-18); BUN/Creat Ratio 17.3 RATIO (10-20); Calcium,Total 8.5 mg/dL (8.5-10.1); Chloride 76 mmol/L (98-107); Creatinine, Serum 0.81 mg/dL (0.70-1.30); EST Glomerular Filtration Rate 101 mL/min (>60); Est Glom Filt Rate - Afr Amer 122 mL/min (>60); Estimated Creatinine Clearance 76.98 ml/min; Ferritin 879 ng/mL (26-388); Glucose 85 mg/dL (74-106); Iron 81 ug/dL (65-175); Iron Binding Capacity,Total 310 ug/dL (250-450); PERCENT IRON SATURATION 26.1 % (15.0-55.0); Sodium Level 116 mmol/L (136-145)
[2018-12-01 16:53] LABS: Immature Platelet Fraction 0.7 % (1.0-7.9); RET-HE 37.7 pg (30-35); Reticulocyte Count 2.72 % (0.5-1.5)
[2018-12-01 17:12] LABS: Bacteria 0 SEEN /hpf (None Seen); Mucous, Urine 0 SEEN /hpf (<or=2+); Red Blood Cells-Urine 0 SEEN /hpf (0-5); Squamous Epithelial Cells - UA 0 SEEN /hpf (0-5); White Blood Cells 0 SEEN /hpf (0-5)
--- NOTE | 2018-12-01 17:17 | CASEMGMT ---
RN CM Assessment Introduced role of RN CM to patient and Shama at bedside.? Patient is alert, oriented and able?to participate in RN CM Assessment. ?Care providers, pharmacy, and demographics verified. Presentation: Weakness/Fatigue, Difficulty Thinking, Involuntary Twitching. Seen yesterday at [facility]. H/o COPD, Former Smoker, Beer Daily, Denies Illegal Drugs. Patient has had issues with Hyponatremia d/t Cancer and after radiation- drinks a lot of water. Receives Brain Radiation Tx that started x1 week ago M-F, last one yesterday 11/30/18, supposed to have x2 weeks. States Lung CA with mets to Pelvic and Radiation to Brain to prevent Mets to Brain. Admit Dx: Hyponatremia Re-Admit: No Barriers/Issues: None PCP: Joseluis Foote Specialists: Pulm- Dr Rodríguez, Cardio- Dr Cantrell, Onc- Dr Murcia, Radiology Onc- Dr Raza Preferred Pharmacy: [facility] Insurance: [employer], [facility] Benef[facility]:?Yes LNOK: Shama Ramires LW/HPOA: Yes Both, HPOA- Sahma Ramires Living Arrangements:? Lives with in a [facility], 1 step to enter. ADL?s: Independent with ambulation and ADL's Transportation: Patient drives, to transport on DC DME: Home O2 3L Daytime & 4L Nightly, Noninvasive Ventilator-[employer]. Nebulizer. HHC: None SNF: None Goal: Home DC PLAN: Home, No anticipated needs identified at this time. KAYLAN Wu
[2018-12-01 17:52] LABS: Hematocrit 22.3 % (40-54); Hemoglobin 7.8 g/dl (13.0-16.5)
[2018-12-01] MEDS: SODIUM CHLORIDE 1 GM TABLET PO (17:55)
[2018-12-01] MEDS: Furosemide 40 MG Tablet PO (17:56)
[2018-12-01 18:02] LABS: Anion Gap 9 (5-15); BUN 12 mg/dL (7-18); BUN/Creat Ratio 18.3 RATIO (10-20); Chloride 81 mmol/L (98-107); Creatinine, Serum 0.66 mg/dL (0.70-1.30); EST Glomerular Filtration Rate 128 mL/min (>60); Est Glom Filt Rate - Afr Amer 155 mL/min (>60); Estimated Creatinine Clearance 62.35 ml/min; Glucose 89 mg/dL (74-106); Sodium Level 121 mmol/L (136-145)
[2018-12-01 18:22] LABS: International Normalized Ratio 1.3; Prothrombin Time (Protime)PT. 16.2 SECONDS (11.7-14.9)
[2018-12-01 18:30] LABS: Color, Urine Yellow (Yellow); Glucose, Dipstick Normal (Normal); Ketone-Dipstick Negative (Negative); Leukocyte Esterase-Dipstick Negative /ul (Negative); Nitrite-Dipstick Negative (Negative); Occult Blood-Urine Negative /ul (Negative); Protein-Dipstick Negative (Negative); Specific Gravity, Urine 1.005 (1.002-1.030); Urine Bilirubin Dipstick Negative (Negative); Urine Clarity Clear (Clear); Urine Urobilinogen Normal (Normal)
[2018-12-01] MEDS: Etomidate 20 MG/10 ML Vial IV (18:31)
--- NOTE | 2018-12-01 18:32 | NURSING ---
Addendum entered by Cherie Sunshine 12/01/18 18:41: Intubated with 7.5 ETT at 22 lip Original Note: Preparing to intubate patient, oral suction done by RT. 20 mg etomidate given at 1831 first attempt to intubate at 183, 1833 positive color change, b/l equal lung sounds
--- NOTE | 2018-12-01 18:36 | RAD_ITS ---
STUDY: X-RAY CHEST REASON FOR EXAM: Male, 67 years old. ET tube TECHNIQUE: Frontal view of the chest COMPARISON: 12/01/2018 FINDINGS: There is an enteric tube noted with its tip extending below the diaphragm. There is an endotracheal tube noted with its tip approximately 4 cm above the susie. The lungs are clear. There are no pleural effusions. There is no pneumothorax. The heart is normal in size. Again noted is a pacemaker. The visualized osseous structures are within normal limits. RAD/CXR for Line Placement IMPRESSION: Satisfactory position of the support lines and tubes. No acute thoracic pathology. Electronically Signed: Shane Smith, at 19:06 EDT Tel , Service support ,
[2018-12-01 18:40] LABS: Bedside Glucose 169 mg/dL (70-110)
--- NOTE | 2018-12-01 18:50 | RAD_ITS ---
STUDY: X-RAY - ABDOMEN/PELVIS REASON FOR EXAM: Male, 67 years old. Enteric tube placement TECHNIQUE: 12/01/2018 COMPARISON: None. FINDINGS: There is an enteric tube noted with its tip just beyond the GE junction. This could be advanced 10 cm for improved positioning. There is no bowel obstruction. There is air and stool to the level of the rectum. The visualized osseous structures are within normal limits. RAD/Abdomen Single View (Portable) IMPRESSION: Enteric tube tip just beyond the GE junction. This could be advanced 10 cm for improved positioning. Electronically Signed: Shane Smith, at 19:07 EDT Tel , Service support ,
--- NOTE | 2018-12-01 18:57 | EKG12_ITS ---
Test Reason : Blood Pressure : / mmHG Vent. Rate : 080 BPM Atrial Rate : 080 BPM P-R Int : 280 ms QRS Dur : 116 ms QT Int : 428 ms P-R-T Axes : 070 042 076 degrees QTc Int : 493 ms Sinus rhythm with 1st degree A-V block Prolonged QT Abnormal ECG Confirmed by OLAF SUBRAMANIAN, HÉCTOR ([id number]), editor house organ YARIEL STILES ([id number]) on 12/07/2018 2:21:05 PM Referred By: Giancarlo Ralph Confirmed By:HÉCTOR BABIN MD
--- NOTE | 2018-12-01 18:57 | NURSING ---
Approximately 1804 called to patient's room by patient yelling for help. Found patient to be in process off grand mal seizure. ULTRASOUND TECHNICIAN called. See ULTRASOUND TECHNICIAN charting.
[2018-12-01 19:13] LABS: Anion Gap 10 (5-15); BUN 13 mg/dL (7-18); BUN/Creat Ratio 12.6 RATIO (10-20); Calcium,Total 8.3 mg/dL (8.5-10.1); Chloride 80 mmol/L (98-107); Creatinine, Serum 1.03 mg/dL (0.70-1.30); EST Glomerular Filtration Rate 76 mL/min (>60); Est Glom Filt Rate - Afr Amer 92 mL/min (>60); Estimated Creatinine Clearance 60.54 ml/min; Glucose 168 mg/dL (74-106); Potassium 4.1 mmol/L (3.5-5.1); Sodium Level 120 mmol/L (136-145)
[2018-12-01 19:18] LABS: CPK Total, Creatine Kinase 440 U/L (39-308); Triglycerides 93 mg/dL
[2018-12-01] MEDS: Propofol 10MG/Ml 1,000 MG/100 ML Bottle 4.35 MG CONT INF (19:20)
[2018-12-01 19:22] LABS: Osmolality, Serum 248 mOsm/KG (280-301)
[2018-12-01 20:15] LABS: Base Excess 7 mmol/L (-2 to +2); Bicarbonate 31.4 mmol/L (22-26); Blood Gas Specimen Type ART; FI02 50; Mode A-C; O2 Delivery Device Vent; PEEP 5; PO2 138 mmHG (75-100); RR 14; SITE L Radial; SO2 99 % (95-99); Time Given 2001; Total Carbon Dioxide 33 mmol/L; Vt 450; pH 7.43 (7.35-7.45)
[2018-12-01 20:17] LABS: Osmolality, Urine 285 mOsm/KG; Urine Sodium 74 mmol/L (Not Establ.)
[2018-12-01] MEDS: Budesonide Respules 0.5 MG/2 ML AMPUL.NEB. INHALATION (20:40)
[2018-12-01] MEDS: Ipratropium 0.5 MG/2.5 ML SOLUTION INHALATION (20:40)
[2018-12-01] MEDS: Albuterol 2.5 MG/3 ML VIAL.NEB. INHALATION (20:40)
[2018-12-01 20:54] LABS: Anion Gap 8 (5-15); BUN 15 mg/dL (7-18); BUN/Creat Ratio 15.6 RATIO (10-20); Calcium,Total 8.2 mg/dL (8.5-10.1); Chloride 80 mmol/L (98-107); Creatinine, Serum 0.96 mg/dL (0.70-1.30); EST Glomerular Filtration Rate 83 mL/min (>60); Est Glom Filt Rate - Afr Amer 100 mL/min (>60); Estimated Creatinine Clearance 64.95 ml/min; Glucose 140 mg/dL (74-106); Potassium 3.9 mmol/L (3.5-5.1); Sodium Level 121 mmol/L (136-145)
--- NOTE | 2018-12-01 21:25 | RAD_ITS ---
STUDY: X-RAY CHEST REASON FOR EXAM: Male, 67 years old. Tube placement TECHNIQUE: Frontal view of the chest COMPARISON: 12/01/2018 FINDINGS: There is an endotracheal tube noted with its tip approximately 3 to 4 cm above the susie. There is an enteric tube which extends below the diaphragm, however the tip is not included on this exam. The lungs are clear. There are no pleural effusions. There is no pneumothorax. The heart is normal in size. Again noted is a pacemaker. The visualized osseous structures are within normal limits. RAD/Chest 1 View (Portable) IMPRESSION: Satisfactory position of the endotracheal tube. Enteric tube extends below the diaphragm, however the tip is not included on this image. Clear lungs. Electronically Signed: Shane Smith, at 21:54 EDT Tel , Service support ,
[2018-12-01 21:56] LABS: Anion Gap 7 (5-15); BUN 16 mg/dL (7-18); BUN/Creat Ratio 15.8 RATIO (10-20); Calcium,Total 8.4 mg/dL (8.5-10.1); Chloride 81 mmol/L (98-107); Creatinine, Serum 1.01 mg/dL (0.70-1.30); EST Glomerular Filtration Rate 78 mL/min (>60); Est Glom Filt Rate - Afr Amer 95 mL/min (>60); Estimated Creatinine Clearance 61.74 ml/min; Glucose 130 mg/dL (74-106); Potassium 3.8 mmol/L (3.5-5.1); Sodium Level 120 mmol/L (136-145)
[2018-12-01] MEDS: 0.9% NaCl Peripheral Flush Adult/Peds IV (22:34)
[2018-12-01] MEDS: Chlorhexidine 15 ML PO (22:34)
[2018-12-01] MEDS: Sodium Chloride 3% 500 ML 30 ML IV (22:37)
[2018-12-01] MEDS: fentaNYL drip 100 ML 2.5 MCG CONT INF (22:37)
[2018-12-01] MEDS: Enoxaparin 80 MG/0.8 ML Syringe 70 MG SC (22:37)
[2018-12-01] MEDS: 0.9% NaCl IVPB Med Flush (250 mL) 15 ML IV (22:41)
[2018-12-01 22:42] LABS: Hematocrit 22.2 % (40-54); Hemoglobin 7.8 g/dl (13.0-16.5)
[2018-12-01 23:03] LABS: Anion Gap 7 (5-15); BUN 16 mg/dL (7-18); BUN/Creat Ratio 17.8 RATIO (10-20); Calcium,Total 8.4 mg/dL (8.5-10.1); Chloride 81 mmol/L (98-107); EST Glomerular Filtration Rate 89 mL/min (>60); Est Glom Filt Rate - Afr Amer 108 mL/min (>60); Estimated Creatinine Clearance 69.28 ml/min; Glucose 99 mg/dL (74-106); Potassium 3.5 mmol/L (3.5-5.1); Sodium Level 121 mmol/L (136-145)
[2018-12-01 23:38] LABS: Anion Gap 7 (5-15); BUN 16 mg/dL (7-18); BUN/Creat Ratio 18.2 RATIO (10-20); Calcium,Total 8.4 mg/dL (8.5-10.1); Chloride 83 mmol/L (98-107); Creatinine, Serum 0.88 mg/dL (0.70-1.30); EST Glomerular Filtration Rate 91 mL/min (>60); Est Glom Filt Rate - Afr Amer 111 mL/min (>60); Estimated Creatinine Clearance 70.86 ml/min; Glucose 95 mg/dL (74-106); Potassium 3.2 mmol/L (3.5-5.1); Sodium Level 122 mmol/L (136-145)
[2018-12-02] VITALS (47 sets, daily range): BP systolic 56–165; BP diastolic 38–97; PULSE 60–87; RESP 12–25; TEMP 36.3–37.8; O2SAT 89–100
[2018-12-02 00:46] LABS: Anion Gap 9 (5-15); BUN 17 mg/dL (7-18); BUN/Creat Ratio 17.9 RATIO (10-20); Calcium,Total 8.1 mg/dL (8.5-10.1); Chloride 82 mmol/L (98-107); Creatinine, Serum 0.95 mg/dL (0.70-1.30); EST Glomerular Filtration Rate 84 mL/min (>60); Est Glom Filt Rate - Afr Amer 102 mL/min (>60); Estimated Creatinine Clearance 65.64 ml/min; Glucose 97 mg/dL (74-106); Potassium 3.3 mmol/L (3.5-5.1); Sodium Level 122 mmol/L (136-145)
[2018-12-02 01:27] LABS: Anion Gap 11 (5-15); BUN 17 mg/dL (7-18); BUN/Creat Ratio 18.7 RATIO (10-20); Chloride 84 mmol/L (98-107); Creatinine, Serum 0.91 mg/dL (0.70-1.30); EST Glomerular Filtration Rate 88 mL/min (>60); Est Glom Filt Rate - Afr Amer 107 mL/min (>60); Estimated Creatinine Clearance 68.52 ml/min; Glucose 94 mg/dL (74-106); Potassium 3.2 mmol/L (3.5-5.1); Sodium Level 125 mmol/L (136-145)
[2018-12-02 02:30] LABS: Anion Gap 10 (5-15); BUN 17 mg/dL (7-18); BUN/Creat Ratio 19.3 RATIO (10-20); Chloride 83 mmol/L (98-107); Creatinine, Serum 0.88 mg/dL (0.70-1.30); EST Glomerular Filtration Rate 91 mL/min (>60); Est Glom Filt Rate - Afr Amer 110 mL/min (>60); Estimated Creatinine Clearance 70.86 ml/min; Glucose 94 mg/dL (74-106); Potassium 3.2 mmol/L (3.5-5.1); Sodium Level 124 mmol/L (136-145)
[2018-12-02 04:13] LABS: Absolute Lymphocyte Count 0.49 X10^3/ul (0.83-4.51); Absolute Neutrophil Count 5.4 X10^3/uL (2.0-7.7); Basophil# 0.02 X10^3/uL; Basophil% 0.3 % (0-1); Eosinophil# 0.07 X10^3/uL; Hematocrit 21.1 % (40-54); Hemoglobin 7.4 g/dl (13.0-16.5); Lymphocyte # 0.49 X10^3/ul (4.0); Lymphocyte % 7.3 % (19-41); Mean Corp Hgb Conc 35.1 g/gl (32-36); Mean Corpuscular Hgb 33.6 pg (27.0-32.0); Mean Corpuscular Volume 95.9 fL (80-94); Mean Platelet Vol. 7.9 fl (6.2-12.0); Monocyte# 0.78 X10^3/uL; Monocyte% 11.6 % (0-10); Neutrophil # 5.36 X10^3/uL (2.7-7.7); Neutrophil % 79.4 % (47-70); Platelet Count 146 K/mm3 (150-450); RBC Distribution Width CV 16.3 % (11.6-14.6); RBC Distribution Width SD 53.7 fl (35.1-43.9); White Blood Count 6.8 K/mm3 (4.4-11.0)
[2018-12-02 04:17] LABS: International Normalized Ratio 1.4; Prothrombin Time (Protime)PT. 17.3 SECONDS (11.7-14.9)
[2018-12-02] MEDS: 0.9% Saline Lock 10 ML Syringe IV ×2 (04:17→06:42)
[2018-12-02 04:24] LABS: Anion Gap 10 (5-15); BUN 17 mg/dL (7-18); BUN/Creat Ratio 19.3 RATIO (10-20); Calcium,Total 8.3 mg/dL (8.5-10.1); Chloride 83 mmol/L (98-107); Creatinine, Serum 0.88 mg/dL (0.70-1.30); EST Glomerular Filtration Rate 91 mL/min (>60); Est Glom Filt Rate - Afr Amer 111 mL/min (>60); Estimated Creatinine Clearance 70.86 ml/min; Glucose 89 mg/dL (74-106); Magnesium 1.4 mg/dL (1.6-2.6); Potassium 3.2 mmol/L (3.5-5.1); Sodium Level 125 mmol/L (136-145)
[2018-12-02 04:28] LABS: POSITIVE COUNT NO; POSITIVE DIFFERENTIAL YES
[2018-12-02 04:29] LABS: Differential Indicated SCAN CRITERIA MET; POSITIVE MORPHOLOGY NO
[2018-12-02 04:49] LABS: Differential Comment SCANNED
[2018-12-02] MEDS: SODIUM CHLORIDE 1 GM TABLET GT (06:40)
[2018-12-02] MEDS: Enoxaparin 80 MG/0.8 ML Syringe 70 MG SC ×3 (06:41→17:41)
[2018-12-02] MEDS: Levothyroxine 100 MCG Tablet GT (06:46)
[2018-12-02] MEDS: Ipratropium/Albuterol Sulfate 3 ML AMPUL.NEB INHALATION ×3 (07:10→18:55)
[2018-12-02] MEDS: Budesonide Respules 0.5 MG/2 ML AMPUL.NEB. INHALATION ×2 (07:10→18:55)
[2018-12-02] MEDS: Magnesium Sulfate 4gm/100mL 4 GM/100 ML IV.SOLN. IV (08:16)
[2018-12-02] MEDS: Aspirin 81 MG TAB.CHEW GT (08:17)
[2018-12-02 08:21] LABS: Allen Test POS; Base Excess 4 mmol/L (-2 to +2); Bicarbonate 29.3 mmol/L (22-26); Blood Gas Specimen Type ART; FI02 40; Mode CPAP PS; O2 Delivery Device Vent; PEEP 5; PO2 70 mmHG (75-100); PS 5; SITE L Radial; SO2 93 % (95-99); Time Given 812; Total Carbon Dioxide 31 mmol/L; pCO2 52.2 mmHg (35-45); pH 7.36 (7.35-7.45)
[2018-12-02 08:47] LABS: Anion Gap 7 (5-15); BUN 16 mg/dL (7-18); BUN/Creat Ratio 20.6 RATIO (10-20); Calcium,Total 8.2 mg/dL (8.5-10.1); Chloride 87 mmol/L (98-107); Creatinine, Serum 0.78 mg/dL (0.70-1.30); EST Glomerular Filtration Rate 106 mL/min (>60); Est Glom Filt Rate - Afr Amer 128 mL/min (>60); Estimated Creatinine Clearance 62.35 ml/min; Glucose 80 mg/dL (74-106); Potassium 4.5 mmol/L (3.5-5.1); Sodium Level 125 mmol/L (136-145)
--- NOTE | 2018-12-02 09:25 | PCM.CONS.R ---
Consultation - Renal PCP/ Referring MD: Requesting physician: [] Primary care physician: Joseluis Foote III, - History of Present Illness History of Present Illness: The patient is a 67 year old M [ with PMH NSCLA s/p chemo who is receiving prophylactic whole brain radiotherapy and has a history of hyponatremia and chronic respiratory failure presented with altered mental status. Apparently the patient was unable to tie his shoes and he had whole brain prophylactic radiotherapy about a week ago. He got progressively tired and he has been drinking lots of water since starting the radiotherapy because of thirst. He was alert and oriented x3 but he felt that he has a foggy mind. Today he is back to his normal mental status and has no complaints. His low sodium was 116 and this morning was 125. He denies focal weakness headache. He denies shortness of breath chest pain. He has no other complaints. Denies chest pain fever chills abdominal pain nausea vomiting diarrhea.] - Allergies Allergies: Allergies No Known Allergies Allergy (Verified 11/29/18 06:24) - Current Medications Current Medications: Current Medications Acetaminophen (Tylenol Liquid) 650 mg GT Q6H PRN PRN PRN Reason: Mild Pain (1-3)/Temp > 100.7 F Albuterol/Ipratropium (Duoneb) 3 ml INHALATION Q6HWA.RT [facility] Last Admin: 12/02/18 07:10 Dose: 3 ml Aspirin (Aspirin, Baby) 81 mg GT QODAY@0800 [facility] Last Admin: 12/02/18 08:17 Dose: 81 mg Atorvastatin Calcium (Lipitor) 40 mg GT QHS [facility] Last Admin: 12/01/18 22:39 Dose: Not Given Bisacodyl (Dulcolax) 5 mg PO DAILY PRN PRN PRN Reason: Constipation Budesonide (Pulmicort Aerosol) 0.5 mg INHALATION BID.RT [facility] Last Admin: 12/02/18 07:10 Dose: 0.5 mg Carvedilol (Coreg) 6.25 mg GT BID [facility] Last Admin: 12/01/18 22:38 Dose: Not Given Chlorhexidine Gluconate () 15 ml PO BID [facility] Last Admin: 12/01/18 22:34 Dose: 15 ml Chlorhexidine Gluconate () 1 each TOPICAL DAILY [facility] Cholecalciferol (Vitamin D) 1,000 unit GT BID [facility] Last Admin: 12/01/18 22:40 Dose: Not Given Enoxaparin Sodium (Lovenox) 70 mg SC Q12@0600,1800 [facility] Last Admin: 12/02/18 06:41 Dose: 70 mg Fluticasone Propionate (Flonase Nasal [place]) 2 spray NASAL BID PRN PRN PRN Reason: ALLERGIES Furosemide (Lasix) 40 mg GT BID@1000,1800 [facility] Sodium Chloride () 250 mls @ 15 mls/hr IV .[id number] PRN PRN Reason: SALINE FLUSH Last Admin: 12/01/18 22:41 Dose: 15 mls/hr Fentanyl () 100 mls @ 2.5 mls/hr CONT INF .Q40H [facility] Last Admin: 12/01/18 22:37 Dose: 2.5 mls/hr Pantoprazole Sodium 40 mg/ (Sodium Chloride) 110 mls @ 330 mls/hr IV Q12 [facility] Last Admin: 12/01/18 22:34 Dose: 330 mls/hr Ampicillin Sodium/Sulbactam (Sodium 3 gm/ Sodium Chloride) 112 mls @ 150 mls/hr IV Q6 [facility] Last Admin: 12/02/18 06:41 Dose: 150 mls/hr Norepinephrine Bitartrate 8 mg (/ Sodium Chloride) 250 mls @ 9.38 mls/hr CONT INF .[id number] [facility] Last Admin: 12/02/18 02:48 Dose: Not Given Magnesium Sulfate () 4 gm in 100 mls @ 25 mls/hr IV X1 ONE Stop: 12/02/18 10:03 Last Admin: 12/02/18 08:16 Dose: 25 mls/hr Levothyroxine Sodium (Synthroid) 100 mcg GT DAILY@0600 [facility] Last Admin: 12/02/18 06:46 Dose: 100 mcg Loratadine (Claritin) 10 mg GT DAILY [facility] Losartan Potassium (Cozaar) 25 mg GT DAILY [facility] Magnesium Hydroxide (Milk Of Magnesia) 30 ml GT DAILY PRN PRN Reason: Constipation Magnesium Oxide (Mag-Ox 400) 400 mg GT BID [facility] Last Admin: 12/01/18 22:39 Dose: Not Given Multivitamins (Multivitamin) 1 tablet GT DAILY@0800 [facility] Ondansetron HCl (Zofran) 4 mg IV Q8H PRN PRN PRN Reason: NAUSEA Psyllium Hydrophilic Mucilloid (Metamucil) 1 packet GT DAILY PRN PRN PRN Reason: CONSTIPATION Sodium Chloride (Sodium Chloride) 1 gm GT TID [facility] Last Admin: 12/02/18 06:40 Dose: 1 gm Sodium Chloride () 10 - 40 ml IV UD PRN PRN Reason: SALINE FLUSH Last Admin: 12/02/18 06:42 Dose: 40 ml Warfarin Sodium (Coumadin (Pbkc)) 7.5 mg PO [id number]@1700 [facility] Last Admin: 12/01/18 21:43 Dose: Not Given - Past Medical History Past Medical History (Chronic Problems): Chronic Problems (Last Reviewed 11/29/18 @ 06:25 by Radha Payan) Implantable cardioverter-defibrillator (ICD) in situ (Chronic 12/27/16) [employer] Dynogen EL ICD, model D150; Seriao # [id number] Secondary pulmonary arterial hypertension (Chronic) Nonischemic cardiomyopathy (Chronic) EF 15-20% per heart cath 08/29/2016; 20-35% per echo 12/17/2016 Severe left ventricular systolic dysfunction (Chronic) EF 15-20% per heart cath 08/29/2016; 20-35% per echo 12/17/2016 History of left heart catheterization (Chronic) Mild, nonobstructive CAD per [facility] 08/29/[address] [facility] per Dr. Cantrell Atherosclerotic heart disease of [place] coronary artery without angina pectoris (Chronic) Mild, nonobstructive CAD per [facility] 08/29/[address] [facility] per Dr. Cantrell PVD (peripheral vascular disease) (Chronic) Long-term use of high-risk medication (Chronic) Stage 3 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) FEV1 31 PND (paroxysmal nocturnal dyspnea) (Chronic) Hyperlipidemia (Chronic) detention current use of anticoagulant (Chronic) Psoriatic arthritis (Chronic) Acne cystica (Chronic) CHF (congestive heart failure), NYHA class I (Chronic) Pulmonary hypertension (Chronic) RVSP 47mm hg per echo 08/28/2016 (unable to estimate per Echo 12/17/2016) - Past Surgical History Surgical History: - - Status post ICD, history of left heart catheterization - Social History Smoking Status: Former smoker Alcohol: None Drugs: None - Family History Maternal Family History: Family History (Last Reviewed 11/29/18 @ 06:25 by Radha Payan) Mother Heart disease Brother CVA (cerebral vascular accident) Father Cancer Grandmother Diabetes History Items: - - No COPD Paternal Family History: Family History (Last Reviewed 11/29/18 @ 06:25 by Radha Payan) Mother Heart disease Brother CVA (cerebral vascular accident) Father Cancer Grandmother Diabetes History Items: - - No COPD Review of Systems Comment: Review of systems negative unless noted in HPI Patient Problems: Active and Suspected Problems (Last Reviewed 11/29/18 @ 06:25 by Radha Payan) Lung cancer (Acute) Anemia (Acute) - Physical Exam General: Alert, Oriented x3, Cooperative HEENT: Atraumatic, PERRLA, EOMI, Normocephalic Neck: Supple, No JVD, Negative Carotid Bruits Lungs: Clear to auscultation, Normal air movement Cardiovascular: Regular rate, No murmurs Abdomen: Bowel Sounds Present, Soft, Non Tender Extremities: No edema, Capillary Refill Less than 3 Seconds Skin: No rashes, No breakdown Musculoskeletal: No Tenderness to Palpation of Joints or Extremities Neurological: Cranial nerves II-XII grossly intact Psych/Mental Status: Normal Affect, Appropriate Vital Signs Temp Pulse Resp BP Pulse Ox 98.5 F 72 12 99/51 L 94 12/02/18 07:00 12/02/18 07:15 12/02/18 07:10 12/02/18 07:15 12/02/18 07:00 Oxygen Flow Rate (L/min) 3 Oxygen Delivery Method Mechanical Ventilator Weight: 70.7 kg Body Mass Index (BMI) 26.6 Finger Stick Blood Glucose 126 Intake and Output for Last 24 Hours 11/30/18 12/01/18 12/02/18 23:59 23:59 23:59 Intake Total 622 / 622 Output Total 1000 / 1000 Balance -378 / -378 Laboratory Tests Past 24 Hrs 12/01/18 12/01/18 12/01/18 13:35 13:35 13:35 WBC 5.0 RBC 2.63 L Hgb 8.8 L Cancelled Hct 24.9 L Cancelled MCV 94.7 H MCH 33.5 H MCHC 35.3 RDW 15.7 H RDW Differential 52.0 H Plt Count 161 MPV 8.0 Immature Gran % (Auto) Neut % (Auto) Lymph % (Auto) [place] % (Auto) Eos % (Auto) Baso % (Auto) Absolute Neuts (auto) Absolute Lymphs (auto) Total Counted Differential Comment Immature Plt Fraction 0.7 L Retic Count 2.72 H Immature Retic Fraction 8.20 Retic Hgb Equivalent 37.7 H PT INR Specimen Type Sample Site pH Bicarbonate Actual POC Total CO2 Base Excess O2 Saturation O2 % ABG pCO2 ABG pO2 Dalton Test Respiration Rate O2 Delivery Device Minute Volume Vent Mode Tidal Volume POC PEEP POC Pressure Suppt Blood Gas Notified Whom Blood Gas Notified Time Sodium 118 L* Potassium 4.0 Chloride 74 L* Carbon Dioxide 35.0 H Anion Gap 9 BUN 14 Creatinine 0.77 Estim Creat Clear Calc 62.35 Est GFR (MDRD) Af Amer 130 Est GFR (MDRD) Non-Af 107 BUN/Creatinine Ratio 18.2 Glucose 90 Serum Osmolality Calcium 8.5 Magnesium Iron TIBC Iron Saturation Ferritin Total Creatine Kinase Troponin I < 0.015 Triglycerides Urine Color Urine Clarity Urine pH Ur Specific [place] Urine Protein Urine Glucose (UA) Urine Ketones Urine Occult Blood Urine Nitrite Urine Bilirubin Urine Urobilinogen Ur Leukocyte Esterase Urine RBC Urine WBC Ur Squamous Epith Cells Urine Bacteria Urine Mucus Urine Osmolality Ur Random Sodium Blood Type Antibody Screen Crossmatch 12/01/18 12/01/18 12/01/18 13:35 13:35 17:00 WBC RBC Hgb Hct MCV MCH MCHC RDW RDW Differential Plt Count MPV Immature Gran % (Auto) Neut % (Auto) Lymph % (Auto) [place] % (Auto) Eos % (Auto) Baso % (Auto) Absolute Neuts (auto) Absolute Lymphs (auto) Total Counted Differential Comment Immature Plt Fraction Retic Count Immature Retic Fraction Retic Hgb Equivalent PT 16.2 H INR 1.3 Specimen Type Sample Site pH Bicarbonate Actual POC Total CO2 Base Excess O2 Saturation O2 % ABG pCO2 ABG pO2 Dalton Test Respiration Rate O2 Delivery Device Minute Volume Vent Mode Tidal Volume POC PEEP POC Pressure Suppt Blood Gas Notified Whom Blood Gas Notified Time Sodium 116 L* Potassium 4.0 Chloride 76 L Carbon Dioxide 33.0 H Anion Gap 7 BUN 14 Creatinine 0.81 Estim Creat Clear Calc 76.98 Est GFR (MDRD) Af Amer 122 Est GFR (MDRD) Non-Af 101 BUN/Creatinine Ratio 17.3 Glucose 85 Serum Osmolality Calcium 8.5 Magnesium Iron 81 TIBC 310 Iron Saturation 26.1 Ferritin 879 H Total Creatine Kinase Troponin I Triglycerides Urine Color Yellow Urine Clarity Clear Urine pH 7.0 Ur Specific [place] 1.005 Urine Protein Negative Urine Glucose (UA) Normal Urine Ketones Negative Urine Occult Blood Negative Urine Nitrite Negative Urine Bilirubin Negative Urine Urobilinogen Normal Ur Leukocyte Esterase Negative Urine RBC 0 SEEN Urine WBC 0 SEEN Ur Squamous Epith Cells 0 SEEN Urine Bacteria 0 SEEN Urine Mucus 0 SEEN Urine Osmolality Ur Random Sodium Blood Type Antibody Screen Crossmatch 12/01/18 12/01/18 12/01/18 17:34 17:34 17:34 WBC RBC Hgb 7.8 L Hct 22.3 L MCV MCH MCHC RDW RDW Differential Plt Count MPV Immature Gran % (Auto) Neut % (Auto) Lymph % (Auto) [place] % (Auto) Eos % (Auto) Baso % (Auto) Absolute Neuts (auto) Absolute Lymphs (auto) Total Counted Differential Comment Immature Plt Fraction Retic Count Immature Retic Fraction Retic Hgb Equivalent PT INR Specimen Type Sample Site pH Bicarbonate Actual POC Total CO2 Base Excess O2 Saturation O2 % ABG pCO2 ABG pO2 Dalton Test Respiration Rate O2 Delivery Device Minute Volume Vent Mode Tidal Volume POC PEEP POC Pressure Suppt Blood Gas Notified Whom Blood Gas Notified Time Sodium 121 L Potassium 4.0 Chloride 81 L Carbon Dioxide 31.0 Anion Gap 9 BUN 12 Creatinine 0.66 L Estim Creat Clear Calc 62.35 Est GFR (MDRD) Af Amer 155 Est GFR (MDRD) Non-Af 128 BUN/Creatinine Ratio 18.3 Glucose 89 Serum Osmolality 248 L Calcium 8.0 L Magnesium Iron TIBC Iron Saturation Ferritin Total Creatine Kinase Troponin I Triglycerides Urine Color Urine Clarity Urine pH Ur Specific [place] Urine Protein Urine Glucose (UA) Urine Ketones Urine Occult Blood Urine Nitrite Urine Bilirubin Urine Urobilinogen Ur Leukocyte Esterase Urine RBC Urine WBC Ur Squamous Epith Cells Urine Bacteria Urine Mucus Urine Osmolality Ur Random Sodium Blood Type Antibody Screen Crossmatch 12/01/18 12/01/18 12/01/18 17:34 18:41 19:45 WBC RBC Hgb Hct MCV MCH MCHC RDW RDW Differential Plt Count MPV Immature Gran % (Auto) Neut % (Auto) Lymph % (Auto) [place] % (Auto) Eos % (Auto) Baso % (Auto) Absolute Neuts (auto) Absolute Lymphs (auto) Total Counted Differential Comment Immature Plt Fraction Retic Count Immature Retic Fraction Retic Hgb Equivalent PT INR Specimen Type Sample Site pH Bicarbonate Actual POC Total CO2 Base Excess O2 Saturation O2 % ABG pCO2 ABG pO2 Dalton Test Respiration Rate O2 Delivery Device Minute Volume Vent Mode Tidal Volume POC PEEP POC Pressure Suppt Blood Gas Notified Whom Blood Gas Notified Time Sodium 120 L Potassium 4.1 Chloride 80 L Carbon Dioxide 30.0 Anion Gap 10 BUN 13 Creatinine 1.03 Estim Creat Clear Calc 60.54 Est GFR (MDRD) Af Amer 92 Est GFR (MDRD) Non-Af 76 BUN/Creatinine Ratio 12.6 Glucose 168 H Serum Osmolality Calcium 8.3 L Magnesium Iron TIBC Iron Saturation Ferritin Total Creatine Kinase 440 H Troponin I Triglycerides 93 Urine Color Urine Clarity Urine pH Ur Specific [place] Urine Protein Urine Glucose (UA) Urine Ketones Urine Occult Blood Urine Nitrite Urine Bilirubin Urine Urobilinogen Ur Leukocyte Esterase Urine RBC Urine WBC Ur Squamous Epith Cells Urine Bacteria Urine Mucus Urine Osmolality 285 Ur Random Sodium Blood Type Antibody Screen Crossmatch 12/01/18 12/01/18 12/01/18 19:45 20:08 20:10 WBC RBC Hgb Hct MCV MCH MCHC RDW RDW Differential Plt Count MPV Immature Gran % (Auto) Neut % (Auto) Lymph % (Auto) [place] % (Auto) Eos % (Auto) Baso % (Auto) Absolute Neuts (auto) Absolute Lymphs (auto) Total Counted Differential Comment Immature Plt Fraction Retic Count Immature Retic Fraction Retic Hgb Equivalent PT INR Specimen Type ART Sample Site L Radial pH 7.43 Bicarbonate Actual 31.4 H POC Total CO2 33 Base Excess 7 H O2 Saturation 99 O2 % 50 ABG pCO2 47.0 H ABG pO2 138 H Dalton Test Respiration Rate 14 O2 Delivery Device Vent Minute Volume 7.00 Vent Mode A-C Tidal Volume 450 POC PEEP 5 POC Pressure Suppt Blood Gas Notified Whom [facility] Blood Gas Notified Time 2000 Sodium 121 L Potassium 3.9 Chloride 80 L Carbon Dioxide 33.0 H Anion Gap 8 BUN 15 Creatinine 0.96 Estim Creat Clear Calc 64.95 Est GFR (MDRD) Af Amer 100 Est GFR (MDRD) Non-Af 83 BUN/Creatinine Ratio 15.6 Glucose 140 H Serum Osmolality Calcium 8.2 L Magnesium Iron TIBC Iron Saturation Ferritin Total Creatine Kinase Troponin I Triglycerides Urine Color Urine Clarity Urine pH Ur Specific [place] Urine Protein Urine Glucose (UA) Urine Ketones Urine Occult Blood Urine Nitrite Urine Bilirubin Urine Urobilinogen Ur Leukocyte Esterase Urine RBC Urine WBC Ur Squamous Epith Cells Urine Bacteria Urine Mucus Urine Osmolality Ur Random Sodium 74 Blood Type Antibody Screen Crossmatch 12/01/18 12/01/18 12/01/18 20:15 21:00 22:15 WBC RBC Hgb 7.8 L Hct 22.2 L MCV MCH MCHC RDW RDW Differential Plt Count MPV Immature Gran % (Auto) Neut % (Auto) Lymph % (Auto) [place] % (Auto) Eos % (Auto) Baso % (Auto) Absolute Neuts (auto) Absolute Lymphs (auto) Total Counted Differential Comment Immature Plt Fraction Retic Count Immature Retic Fraction Retic Hgb Equivalent PT INR Specimen Type Sample Site pH Bicarbonate Actual POC Total CO2 Base Excess O2 Saturation O2 % ABG pCO2 ABG pO2 Dalton Test Respiration Rate O2 Delivery Device Minute Volume Vent Mode Tidal Volume POC PEEP POC Pressure Suppt Blood Gas Notified Whom Blood Gas Notified Time Sodium 120 L Potassium 3.8 Chloride 81 L Carbon Dioxide 32.0 Anion Gap 7 BUN 16 Creatinine 1.01 Estim Creat Clear Calc 61.74 Est GFR (MDRD) Af Amer 95 Est GFR (MDRD) Non-Af 78 BUN/Creatinine Ratio 15.8 Glucose 130 H Serum Osmolality Calcium 8.4 L Magnesium Iron TIBC Iron Saturation Ferritin Total Creatine Kinase Troponin I Triglycerides Urine Color Urine Clarity Urine pH Ur Specific [place] Urine Protein Urine Glucose (UA) Urine Ketones Urine Occult Blood Urine Nitrite Urine Bilirubin Urine Urobilinogen Ur Leukocyte Esterase Urine RBC Urine WBC Ur Squamous Epith Cells Urine Bacteria Urine Mucus Urine Osmolality Ur Random Sodium Blood Type O NEGATIVE Antibody Screen NEGATIVE Crossmatch See Detail 12/01/18 12/01/18 12/02/18 22:15 23:15 00:15 WBC RBC Hgb Hct MCV MCH MCHC RDW RDW Differential Plt Count MPV Immature Gran % (Auto) Neut % (Auto) Lymph % (Auto) [place] % (Auto) Eos % (Auto) Baso % (Auto) Absolute Neuts (auto) Absolute Lymphs (auto) Total Counted Differential Comment Immature Plt Fraction Retic Count Immature Retic Fraction Retic Hgb Equivalent PT INR Specimen Type Sample Site pH Bicarbonate Actual POC Total CO2 Base Excess O2 Saturation O2 % ABG pCO2 ABG pO2 Dalton Test Respiration Rate O2 Delivery Device Minute Volume Vent Mode Tidal Volume POC PEEP POC Pressure Suppt Blood Gas Notified Whom Blood Gas Notified Time Sodium 121 L 122 L 122 L Potassium 3.5 3.2 L 3.3 L Chloride 81 L 83 L 82 L Carbon Dioxide 33.0 H 32.0 31.0 Anion Gap 7 7 9 BUN 16 16 17 Creatinine 0.90 0.88 0.95 Estim Creat Clear Calc 69.28 70.86 65.64 Est GFR (MDRD) Af Amer 108 111 102 Est GFR (MDRD) Non-Af 89 91 84 BUN/Creatinine Ratio 17.8 18.2 17.9 Glucose 99 95 97 Serum Osmolality Calcium 8.4 L 8.4 L 8.1 L Magnesium Iron TIBC Iron Saturation Ferritin Total Creatine Kinase Troponin I Triglycerides Urine Color Urine Clarity Urine pH Ur Specific [place] Urine Protein Urine Glucose (UA) Urine Ketones Urine Occult Blood Urine Nitrite Urine Bilirubin Urine Urobilinogen Ur Leukocyte Esterase Urine RBC Urine WBC Ur Squamous Epith Cells Urine Bacteria Urine Mucus Urine Osmolality Ur Random Sodium Blood Type Antibody Screen Crossmatch 12/02/18 12/02/18 12/02/18 01:00 02:05 04:00 WBC RBC Hgb Hct MCV MCH MCHC RDW RDW Differential Plt Count MPV Immature Gran % (Auto) Neut % (Auto) Lymph % (Auto) [place] % (Auto) Eos % (Auto) Baso % (Auto) Absolute Neuts (auto) Absolute Lymphs (auto) Total Counted Differential Comment Immature Plt Fraction Retic Count Immature Retic Fraction Retic Hgb Equivalent PT INR Specimen Type Sample Site pH Bicarbonate Actual POC Total CO2 Base Excess O2 Saturation O2 % ABG pCO2 ABG pO2 Dalton Test Respiration Rate O2 Delivery Device Minute Volume Vent Mode Tidal Volume POC PEEP POC Pressure Suppt Blood Gas Notified Whom Blood Gas Notified Time Sodium 125 L 124 L 125 L Potassium 3.2 L 3.2 L 3.2 L Chloride 84 L 83 L 83 L Carbon Dioxide 30.0 31.0 32.0 Anion Gap 11 10 10 BUN 17 17 17 Creatinine 0.91 0.88 0.88 Estim Creat Clear Calc 68.52 70.86 70.86 Est GFR (MDRD) Af Amer 107 110 111 Est GFR (MDRD) Non-Af 88 91 91 BUN/Creatinine Ratio 18.7 19.3 19.3 Glucose 94 94 89 Serum Osmolality Calcium 8.0 L 8.0 L 8.3 L Magnesium 1.4 L Iron TIBC Iron Saturation Ferritin Total Creatine Kinase Troponin I Triglycerides Urine Color Urine Clarity Urine pH Ur Specific [place] Urine Protein Urine Glucose (UA) Urine Ketones Urine Occult Blood Urine Nitrite Urine Bilirubin Urine Urobilinogen Ur Leukocyte Esterase Urine RBC Urine WBC Ur Squamous Epith Cells Urine Bacteria Urine Mucus Urine Osmolality Ur Random Sodium Blood Type Antibody Screen Crossmatch 12/02/18 12/02/18 12/02/18 04:00 04:00 08:13 WBC 6.8 RBC 2.20 L Hgb 7.4 L Hct 21.1 L MCV 95.9 H MCH 33.6 H MCHC 35.1 RDW 16.3 H RDW Differential 53.7 H Plt Count 146 L MPV 7.9 Immature Gran % (Auto) 0.400 Neut % (Auto) 79.4 H Lymph % (Auto) 7.3 L [place] % (Auto) 11.6 H Eos % (Auto) 1.0 Baso % (Auto) 0.3 Absolute Neuts (auto) 5.4 Absolute Lymphs (auto) 0.49 L Total Counted Not Reportable Differential Comment SCANNED Immature Plt Fraction Retic Count Immature Retic Fraction Retic Hgb Equivalent PT 17.3 H INR 1.4 Specimen Type ART Sample Site L Radial pH 7.36 Bicarbonate Actual 29.3 H POC Total CO2 31 Base Excess 4 H O2 Saturation 93 L O2 % 40 ABG pCO2 52.2 H ABG pO2 70 L Dalton Test POS Respiration Rate O2 Delivery Device Vent Minute Volume Vent Mode CPAP PS Tidal Volume POC PEEP 5 POC Pressure Suppt 5 Blood Gas Notified Whom ICU MD Blood Gas Notified Time 812 Sodium Potassium Chloride Carbon Dioxide Anion Gap BUN Creatinine Estim Creat Clear Calc Est GFR (MDRD) Af Amer Est GFR (MDRD) Non-Af BUN/Creatinine Ratio Glucose Serum Osmolality Calcium Magnesium Iron TIBC Iron Saturation Ferritin Total Creatine Kinase Troponin I Triglycerides Urine Color Urine Clarity Urine pH Ur Specific [place] Urine Protein Urine Glucose (UA) Urine Ketones Urine Occult Blood Urine Nitrite Urine Bilirubin Urine Urobilinogen Ur Leukocyte Esterase Urine RBC Urine WBC Ur Squamous Epith Cells Urine Bacteria Urine Mucus Urine Osmolality Ur Random Sodium Blood Type Antibody Screen Crossmatch 12/02/18 08:30 WBC RBC Hgb Hct MCV MCH MCHC RDW RDW Differential Plt Count MPV Immature Gran % (Auto) Neut % (Auto) Lymph % (Auto) [place] % (Auto) Eos % (Auto) Baso % (Auto) Absolute Neuts (auto) Absolute Lymphs (auto) Total Counted Differential Comment Immature Plt Fraction Retic Count Immature Retic Fraction Retic Hgb Equivalent PT INR Specimen Type Sample Site pH Bicarbonate Actual POC Total CO2 Base Excess O2 Saturation O2 % ABG pCO2 ABG pO2 Dalton Test Respiration Rate O2 Delivery Device Minute Volume Vent Mode Tidal Volume POC PEEP POC Pressure Suppt Blood Gas Notified Whom Blood Gas Notified Time Sodium 125 L Potassium 4.5 Chloride 87 L Carbon Dioxide 31.0 Anion Gap 7 BUN 16 Creatinine 0.78 Estim Creat Clear Calc 62.35 Est GFR (MDRD) Af Amer 128 Est GFR (MDRD) Non-Af 106 BUN/Creatinine Ratio 20.6 H Glucose 80 Serum Osmolality Calcium 8.2 L Magnesium Iron TIBC Iron Saturation Ferritin Total Creatine Kinase Troponin I Triglycerides Urine Color Urine Clarity Urine pH Ur Specific [place] Urine Protein Urine Glucose (UA) Urine Ketones Urine Occult Blood Urine Nitrite Urine Bilirubin Urine Urobilinogen Ur Leukocyte Esterase Urine RBC Urine WBC Ur Squamous Epith Cells Urine Bacteria Urine Mucus Urine Osmolality Ur Random Sodium Blood Type Antibody Screen Crossmatch POC Glucose 12/01/18 18:22 POC Glucose 169 H Assessment/Plan All Active Problems (Last Reviewed 11/29/18 @ 06:25 by Radha Payan) Lung cancer (Acute) Anemia (Acute) Skin tear of left forearm without complication (Acute) Skin tear of right forearm without complication (Acute) Lesion of pelvic bone (Acute) Cancer of upper lobe of left lung (Acute) Pneumothorax after biopsy (Acute) Shortness of breath (Acute) Left ventricular thrombus (Acute) Laceration of right elbow without complication (Acute) Abrasion of skin (Acute) Hx of colonoscopy (Resolved) Diverticula of colon (Acute) SOB (shortness of breath) (Acute) Acute respiratory failure with hypoxia (Resolved) Acute on chronic respiratory failure with hypoxia (Resolved) COPD with acute exacerbation (Resolved) CAP (community acquired pneumonia) (Resolved) Chronic respiratory failure with hypoxia and hypercapnia (Resolved) Hyponatremia Heart failure Sodium is improving but a little too fast we will check another sodium now stop the sodium tablets hold the Lasix in the morning if overcorrected will do D5 water to re-lower a little. Continue sodium every 4 hours. Will resume after rate of correction improved fluid restriction and Lasix. Patient is currently seems to be euvolemic. Cannot use urine sodium because the patient was on diuretics to distinguish between SIADH and hyponatremia related to heart failure. Discussed with patient and his present at the bedside.
--- NOTE | 2018-12-02 09:32 | CON.PCM_ITS ---
Consultation - Renal PCP/ Referring MD: Requesting physician: [] Primary care physician: Joseluis Foote III, - History of Present Illness History of Present Illness: The patient is a 67 year old M [ with PMH NSCLA s/p chemo who is receiving prop hylactic whole brain radiotherapy and has a history of hyponatremia and chronic respiratory failure presented with altered mental status. Apparently the patient was unable to tie his shoes and he had whole brain prophylactic radiotherapy about a week ago. He got progressively tired and he has been drinking lots of water since starting the radiotherapy because of thirst. He was alert and oriented x3 but he felt that he has a foggy mind. Today he is back to his normal mental status and has no complaints. His low sodium was 116 and this morning was 125. He denies focal weakness headache. He denies shortness of breath chest pain. He has no other complaints. Denies chest pain fever chills abdominal pain nausea vomiting diarrhea.] - Allergies Allergies: Allergies No Known Allergies Allergy (Verified 11/29/18 06:24) - Current Medications Current Medications: Current Medications Acetaminophen (Tylenol Liquid) 650 mg GT Q6H PRN PRN PRN Reason: Mild Pain (1-3)/Temp > 100.7 F Albuterol/Ipratropium (Duoneb) 3 ml INHALATION Q6HWA.RT [facility] Last Admin: 12/02/18 07:10 Dose: 3 ml Aspirin (Aspirin, Baby) 81 mg GT QODAY@0800 [facility] Last Admin: 12/02/18 08:17 Dose: 81 mg Atorvastatin Calcium (Lipitor) 40 mg GT QHS [facility] Last Admin: 12/01/18 22:39 Dose: Not Given Bisacodyl (Dulcolax) 5 mg PO DAILY PRN PRN PRN Reason: Constipation Budesonide (Pulmicort Aerosol) 0.5 mg INHALATION BID.RT [facility] Last Admin: 12/02/18 07:10 Dose: 0.5 mg Carvedilol (Coreg) 6.25 mg GT BID [facility] Last Admin: 12/01/18 22:38 Dose: Not Given Chlorhexidine Gluconate () 15 ml PO BID [facility] Last Admin: 12/01/18 22:34 Dose: 15 ml Chlorhexidine Gluconate () 1 each TOPICAL DAILY [facility] Cholecalciferol (Vitamin D) 1,000 unit GT BID [facility] Last Admin: 12/01/18 22:40 Dose: Not Given Enoxaparin Sodium (Lovenox) 70 mg SC Q12@0600,1800 [facility] Last Admin: 12/02/18 06:41 Dose: 70 mg Fluticasone Propionate (Flonase Nasal [place]) 2 spray NASAL BID PRN PRN PRN Reason: ALLERGIES Furosemide (Lasix) 40 mg GT BID@1000,1800 [facility] Sodium Chloride () 250 mls @ 15 mls/hr IV .[id number] PRN PRN Reason: SALINE FLUSH Last Admin: 12/01/18 22:41 Dose: 15 mls/hr Fentanyl () 100 mls @ 2.5 mls/hr CONT INF .Q40H [facility] Last Admin: 12/01/18 22:37 Dose: 2.5 mls/hr Pantoprazole Sodium 40 mg/ (Sodium Chloride) 110 mls @ 330 mls/hr IV Q12 [facility] Last Admin: 12/01/18 22:34 Dose: 330 mls/hr Ampicillin Sodium/Sulbactam (Sodium 3 gm/ Sodium Chloride) 112 mls @ 150 mls/hr IV Q6 [facility] Last Admin: 12/02/18 06:41 Dose: 150 mls/hr Norepinephrine Bitartrate 8 mg (/ Sodium Chloride) 250 mls @ 9.38 mls/hr CONT INF .[id number] [facility] Last Admin: 12/02/18 02:48 Dose: Not Given Magnesium Sulfate () 4 gm in 100 mls @ 25 mls/hr IV X1 ONE Stop: 12/02/18 10:03 Last Admin: 12/02/18 08:16 Dose: 25 mls/hr Levothyroxine Sodium (Synthroid) 100 mcg GT DAILY@0600 [facility] Last Admin: 12/02/18 06:46 Dose: 100 mcg Loratadine (Claritin) 10 mg GT DAILY [facility] Losartan Potassium (Cozaar) 25 mg GT DAILY [facility] Magnesium Hydroxide (Milk Of Magnesia) 30 ml GT DAILY PRN PRN Reason: Constipation Magnesium Oxide (Mag-Ox 400) 400 mg GT BID [facility] Last Admin: 12/01/18 22:39 Dose: Not Given Multivitamins (Multivitamin) 1 tablet GT DAILY@0800 [facility] Ondansetron HCl (Zofran) 4 mg IV Q8H PRN PRN PRN Reason: NAUSEA Psyllium Hydrophilic Mucilloid (Metamucil) 1 packet GT DAILY PRN PRN PRN Reason: CONSTIPATION Sodium Chloride (Sodium Chloride) 1 gm GT TID [facility] Last Admin: 12/02/18 06:40 Dose: 1 gm Sodium Chloride () 10 - 40 ml IV UD PRN PRN Reason: SALINE FLUSH Last Admin: 12/02/18 06:42 Dose: 40 ml Warfarin Sodium (Coumadin (Pbkc)) 7.5 mg PO [id number]@1700 [facility] Last Admin: 12/01/18 21:43 Dose: Not Given - Past Medical History Past Medical History (Chronic Problems): Chronic Problems (Last Reviewed 11/29/18 @ 06:25 by Radha Payan) Implantable cardioverter-defibrillator (ICD) in situ (Chronic 12/27/16) [email or web address] Dynogen EL ICD, model D150; Seriao # [id number] Secondary pulmonary arterial hypertension (Chronic) Nonischemic cardiomyopathy (Chronic) EF 15-20% per heart cath 08/29/2016; 20-35% per echo 12/17/2016 Severe left ventricular systolic dysfunction (Chronic) EF 15-20% per heart cath 08/29/2016; 20-35% per echo 12/17/2016 History of left heart catheterization (Chronic) Mild, nonobstructive CAD per [facility] 08/29/2016 @ [facility] per Dr. Cantrell Atherosclerotic heart disease of [place] coronary artery without angina pectoris (Chronic) Mild, nonobstructive CAD per [facility] 08/29/2016 @ [facility] per Dr. Cantrell PVD (peripheral vascular disease) (Chronic) Long-term use of high-risk medication (Chronic) Stage 3 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) FEV1 31 PND (paroxysmal nocturnal dyspnea) (Chronic) Hyperlipidemia (Chronic) care home current use of anticoagulant (Chronic) Psoriatic arthritis (Chronic) Acne cystica (Chronic) CHF (congestive heart failure), NYHA class I (Chronic) Pulmonary hypertension (Chronic) RVSP 47mm hg per echo 08/28/2016 (unable to estimate per Echo 12/17/2016) - Past Surgical History Surgical History: - - Status post ICD, history of left heart catheterization - Social History Smoking Status: Former smoker Alcohol: None Drugs: None - Family History Maternal Family History: Family History (Last Reviewed 11/29/18 @ 06:25 by Radha Payan) Mother Heart disease Brother CVA (cerebral vascular accident) Father Cancer Grandmother Diabetes History Items: - - No COPD Paternal Family History: Family History (Last Reviewed 11/29/18 @ 06:25 by Radha Payan) Mother Heart disease Brother CVA (cerebral vascular accident) Father Cancer Grandmother Diabetes History Items: - - No COPD Review of Systems Comment: Review of systems negative unless noted in HPI Patient Problems: Active and Suspected Problems (Last Reviewed 11/29/18 @ 06:25 by Radha Payan) Lung cancer (Acute) Anemia (Acute) - Physical Exam General: Alert, Oriented x3, Cooperative HEENT: Atraumatic, PERRLA, EOMI, Normocephalic Neck: Supple, No JVD, Negative Carotid Bruits Lungs: Clear to auscultation, Normal air movement Cardiovascular: Regular rate, No murmurs Abdomen: Bowel Sounds Present, Soft, Non Tender Extremities: No edema, Capillary Refill Less than 3 Seconds Skin: No rashes, No breakdown Musculoskeletal: No Tenderness to Palpation of Joints or Extremities Neurological: Cranial nerves II-XII grossly intact Psych/Mental Status: Normal Affect, Appropriate Vital Signs Temp Pulse Resp BP Pulse Ox 98.5 F 72 12 99/51 L 94 12/02/18 07:00 12/02/18 07:15 12/02/18 07:10 12/02/18 07:15 12/02/18 07:00 Oxygen Flow Rate (L/min) 3 Oxygen Delivery Method Mechanical Ventilator Weight: 70.7 kg Body Mass Index (BMI) 26.6 Finger Stick Blood Glucose 126 Intake and Output for Last 24 Hours 11/30/18 12/01/18 12/02/18 23:59 23:59 23:59 Intake Total 622 / 622 Output Total 1000 / 1000 Balance -378 / -378 Laboratory Tests Past 24 Hrs 12/01/18 12/01/18 12/01/18 13:35 13:35 13:35 WBC 5.0 RBC 2.63 L Hgb 8.8 L Cancelled Hct 24.9 L Cancelled MCV 94.7 H MCH 33.5 H MCHC 35.3 RDW 15.7 H RDW Differential 52.0 H Plt Count 161 MPV 8.0 Immature Gran % (Auto) Neut % (Auto) Lymph % (Auto) Hart % (Auto) Eos % (Auto) Baso % (Auto) Absolute Neuts (auto) Absolute Lymphs (auto) Total Counted Differential Comment Immature Plt Fraction 0.7 L Retic Count 2.72 H Immature Retic Fraction 8.20 Retic Hgb Equivalent 37.7 H PT INR Specimen Type Sample Site pH Bicarbonate Actual POC Total CO2 Base Excess O2 Saturation O2 % ABG pCO2 ABG pO2 Dalton Test Respiration Rate O2 Delivery Device Minute Volume Vent Mode Tidal Volume POC PEEP POC Pressure Suppt Blood Gas Notified Whom Blood Gas Notified Time Sodium 118 L* Potassium 4.0 Chloride 74 L* Carbon Dioxide 35.0 H Anion Gap 9 BUN 14 Creatinine 0.77 Estim Creat Clear Calc 62.35 Est GFR (MDRD) Af Amer 130 Est GFR (MDRD) Non-Af 107 BUN/Creatinine Ratio 18.2 Glucose 90 Serum Osmolality Calcium 8.5 Magnesium Iron TIBC Iron Saturation Ferritin Total Creatine Kinase Troponin I < 0.015 Triglycerides Urine Color Urine Clarity Urine pH Ur Specific [place] Urine Protein Urine Glucose (UA) Urine Ketones Urine Occult Blood Urine Nitrite Urine Bilirubin Urine Urobilinogen Ur Leukocyte Esterase Urine RBC Urine WBC Ur Squamous Epith Cells Urine Bacteria Urine Mucus Urine Osmolality Ur Random Sodium Blood Type Antibody Screen Crossmatch 12/01/18 12/01/18 12/01/18 13:35 13:35 17:00 WBC RBC Hgb Hct MCV MCH MCHC RDW RDW Differential Plt Count MPV Immature Gran % (Auto) Neut % (Auto) Lymph % (Auto) Hart % (Auto) Eos % (Auto) Baso % (Auto) Absolute Neuts (auto) Absolute Lymphs (auto) Total Counted Differential Comment Immature Plt Fraction Retic Count Immature Retic Fraction Retic Hgb Equivalent PT 16.2 H INR 1.3 Specimen Type Sample Site pH Bicarbonate Actual POC Total CO2 Base Excess O2 Saturation O2 % ABG pCO2 ABG pO2 Dalton Test Respiration Rate O2 Delivery Device Minute Volume Vent Mode Tidal Volume POC PEEP POC Pressure Suppt Blood Gas Notified Whom Blood Gas Notified Time Sodium 116 L* Potassium 4.0 Chloride 76 L Carbon Dioxide 33.0 H Anion Gap 7 BUN 14 Creatinine 0.81 Estim Creat Clear Calc 76.98 Est GFR (MDRD) Af Amer 122 Est GFR (MDRD) Non-Af 101 BUN/Creatinine Ratio 17.3 Glucose 85 Serum Osmolality Calcium 8.5 Magnesium Iron 81 TIBC 310 Iron Saturation 26.1 Ferritin 879 H Total Creatine Kinase Troponin I Triglycerides Urine Color Yellow Urine Clarity Clear Urine pH 7.0 Ur Specific [place] 1.005 Urine Protein Negative Urine Glucose (UA) Normal Urine Ketones Negative Urine Occult Blood Negative Urine Nitrite Negative Urine Bilirubin Negative Urine Urobilinogen Normal Ur Leukocyte Esterase Negative Urine RBC 0 SEEN Urine WBC 0 SEEN Ur Squamous Epith Cells 0 SEEN Urine Bacteria 0 SEEN Urine Mucus 0 SEEN Urine Osmolality Ur Random Sodium Blood Type Antibody Screen Crossmatch 12/01/18 12/01/18 12/01/18 17:34 17:34 17:34 WBC RBC Hgb 7.8 L Hct 22.3 L MCV MCH MCHC RDW RDW Differential Plt Count MPV Immature Gran % (Auto) Neut % (Auto) Lymph % (Auto) Hart % (Auto) Eos % (Auto) Baso % (Auto) Absolute Neuts (auto) Absolute Lymphs (auto) Total Counted Differential Comment Immature Plt Fraction Retic Count Immature Retic Fraction Retic Hgb Equivalent PT INR Specimen Type Sample Site pH Bicarbonate Actual POC Total CO2 Base Excess O2 Saturation O2 % ABG pCO2 ABG pO2 Dalton Test Respiration Rate O2 Delivery Device Minute Volume Vent Mode Tidal Volume POC PEEP POC Pressure Suppt Blood Gas Notified Whom Blood Gas Notified Time Sodium 121 L Potassium 4.0 Chloride 81 L Carbon Dioxide 31.0 Anion Gap 9 BUN 12 Creatinine 0.66 L Estim Creat Clear Calc 62.35 Est GFR (MDRD) Af Amer 155 Est GFR (MDRD) Non-Af 128 BUN/Creatinine Ratio 18.3 Glucose 89 Serum Osmolality 248 L Calcium 8.0 L Magnesium Iron TIBC Iron Saturation Ferritin Total Creatine Kinase Troponin I Triglycerides Urine Color Urine Clarity Urine pH Ur Specific [place] Urine Protein Urine Glucose (UA) Urine Ketones Urine Occult Blood Urine Nitrite Urine Bilirubin Urine Urobilinogen Ur Leukocyte Esterase Urine RBC Urine WBC Ur Squamous Epith Cells Urine Bacteria Urine Mucus Urine Osmolality Ur Random Sodium Blood Type Antibody Screen Crossmatch 12/01/18 12/01/18 12/01/18 17:34 18:41 19:45 WBC RBC Hgb Hct MCV MCH MCHC RDW RDW Differential Plt Count MPV Immature Gran % (Auto) Neut % (Auto) Lymph % (Auto) Hart % (Auto) Eos % (Auto) Baso % (Auto) Absolute Neuts (auto) Absolute Lymphs (auto) Total Counted Differential Comment Immature Plt Fraction Retic Count Immature Retic Fraction Retic Hgb Equivalent PT INR Specimen Type Sample Site pH Bicarbonate Actual POC Total CO2 Base Excess O2 Saturation O2 % ABG pCO2 ABG pO2 Dalton Test Respiration Rate O2 Delivery Device Minute Volume Vent Mode Tidal Volume POC PEEP POC Pressure Suppt Blood Gas Notified Whom Blood Gas Notified Time Sodium 120 L Potassium 4.1 Chloride 80 L Carbon Dioxide 30.0 Anion Gap 10 BUN 13 Creatinine 1.03 Estim Creat Clear Calc 60.54 Est GFR (MDRD) Af Amer 92 Est GFR (MDRD) Non-Af 76 BUN/Creatinine Ratio 12.6 Glucose 168 H Serum Osmolality Calcium 8.3 L Magnesium Iron TIBC Iron Saturation Ferritin Total Creatine Kinase 440 H Troponin I Triglycerides 93 Urine Color Urine Clarity Urine pH Ur Specific [place] Urine Protein Urine Glucose (UA) Urine Ketones Urine Occult Blood Urine Nitrite Urine Bilirubin Urine Urobilinogen Ur Leukocyte Esterase Urine RBC Urine WBC Ur Squamous Epith Cells Urine Bacteria Urine Mucus Urine Osmolality 285 Ur Random Sodium Blood Type Antibody Screen Crossmatch 12/01/18 12/01/18 12/01/18 19:45 20:08 20:10 WBC RBC Hgb Hct MCV MCH MCHC RDW RDW Differential Plt Count MPV Immature Gran % (Auto) Neut % (Auto) Lymph % (Auto) Hart % (Auto) Eos % (Auto) Baso % (Auto) Absolute Neuts (auto) Absolute Lymphs (auto) Total Counted Differential Comment Immature Plt Fraction Retic Count Immature Retic Fraction Retic Hgb Equivalent PT INR Specimen Type ART Sample Site L Radial pH 7.43 Bicarbonate Actual 31.4 H POC Total CO2 33 Base Excess 7 H O2 Saturation 99 O2 % 50 ABG pCO2 47.0 H ABG pO2 138 H Dalton Test Respiration Rate 14 O2 Delivery Device Vent Minute Volume 7.00 Vent Mode A-C Tidal Volume 450 POC PEEP 5 POC Pressure Suppt Blood Gas Notified Whom HOSP [place] Blood Gas Notified Time 2000 Sodium 121 L Potassium 3.9 Chloride 80 L Carbon Dioxide 33.0 H Anion Gap 8 BUN 15 Creatinine 0.96 Estim Creat Clear Calc 64.95 Est GFR (MDRD) Af Amer 100 Est GFR (MDRD) Non-Af 83 BUN/Creatinine Ratio 15.6 Glucose 140 H Serum Osmolality Calcium 8.2 L Magnesium Iron TIBC Iron Saturation Ferritin Total Creatine Kinase Troponin I Triglycerides Urine Color Urine Clarity Urine pH Ur Specific [place] Urine Protein Urine Glucose (UA) Urine Ketones Urine Occult Blood Urine Nitrite Urine Bilirubin Urine Urobilinogen Ur Leukocyte Esterase Urine RBC Urine WBC Ur Squamous Epith Cells Urine Bacteria Urine Mucus Urine Osmolality Ur Random Sodium 74 Blood Type Antibody Screen Crossmatch 12/01/18 12/01/18 12/01/18 20:15 21:00 22:15 WBC RBC Hgb 7.8 L Hct 22.2 L MCV MCH MCHC RDW RDW Differential Plt Count MPV Immature Gran % (Auto) Neut % (Auto) Lymph % (Auto) Hart % (Auto) Eos % (Auto) Baso % (Auto) Absolute Neuts (auto) Absolute Lymphs (auto) Total Counted Differential Comment Immature Plt Fraction Retic Count Immature Retic Fraction Retic Hgb Equivalent PT INR Specimen Type Sample Site pH Bicarbonate Actual POC Total CO2 Base Excess O2 Saturation O2 % ABG pCO2 ABG pO2 Dalton Test Respiration Rate O2 Delivery Device Minute Volume Vent Mode Tidal Volume POC PEEP POC Pressure Suppt Blood Gas Notified Whom Blood Gas Notified Time Sodium 120 L Potassium 3.8 Chloride 81 L Carbon Dioxide 32.0 Anion Gap 7 BUN 16 Creatinine 1.01 Estim Creat Clear Calc 61.74 Est GFR (MDRD) Af Amer 95 Est GFR (MDRD) Non-Af 78 BUN/Creatinine Ratio 15.8 Glucose 130 H Serum Osmolality Calcium 8.4 L Magnesium Iron TIBC Iron Saturation Ferritin Total Creatine Kinase Troponin I Triglycerides Urine Color Urine Clarity Urine pH Ur Specific [place] Urine Protein Urine Glucose (UA) Urine Ketones Urine Occult Blood Urine Nitrite Urine Bilirubin Urine Urobilinogen Ur Leukocyte Esterase Urine RBC Urine WBC Ur Squamous Epith Cells Urine Bacteria Urine Mucus Urine Osmolality Ur Random Sodium Blood Type O NEGATIVE Antibody Screen NEGATIVE Crossmatch See Detail 12/01/18 12/01/18 12/02/18 22:15 23:15 00:15 WBC RBC Hgb Hct MCV MCH MCHC RDW RDW Differential Plt Count MPV Immature Gran % (Auto) Neut % (Auto) Lymph % (Auto) Hart % (Auto) Eos % (Auto) Baso % (Auto) Absolute Neuts (auto) Absolute Lymphs (auto) Total Counted Differential Comment Immature Plt Fraction Retic Count Immature Retic Fraction Retic Hgb Equivalent PT INR Specimen Type Sample Site pH Bicarbonate Actual POC Total CO2 Base Excess O2 Saturation O2 % ABG pCO2 ABG pO2 Dalton Test Respiration Rate O2 Delivery Device Minute Volume Vent Mode Tidal Volume POC PEEP POC Pressure Suppt Blood Gas Notified Whom Blood Gas Notified Time Sodium 121 L 122 L 122 L Potassium 3.5 3.2 L 3.3 L Chloride 81 L 83 L 82 L Carbon Dioxide 33.0 H 32.0 31.0 Anion Gap 7 7 9 BUN 16 16 17 Creatinine 0.90 0.88 0.95 Estim Creat Clear Calc 69.28 70.86 65.64 Est GFR (MDRD) Af Amer 108 111 102 Est GFR (MDRD) Non-Af 89 91 84 BUN/Creatinine Ratio 17.8 18.2 17.9 Glucose 99 95 97 Serum Osmolality Calcium 8.4 L 8.4 L 8.1 L Magnesium Iron TIBC Iron Saturation Ferritin Total Creatine Kinase Troponin I Triglycerides Urine Color Urine Clarity Urine pH Ur Specific [place] Urine Protein Urine Glucose (UA) Urine Ketones Urine Occult Blood Urine Nitrite Urine Bilirubin Urine Urobilinogen Ur Leukocyte Esterase Urine RBC Urine WBC Ur Squamous Epith Cells Urine Bacteria Urine Mucus Urine Osmolality Ur Random Sodium Blood Type Antibody Screen Crossmatch 12/02/18 12/02/18 12/02/18 01:00 02:05 04:00 WBC RBC Hgb Hct MCV MCH MCHC RDW RDW Differential Plt Count MPV Immature Gran % (Auto) Neut % (Auto) Lymph % (Auto) Hart % (Auto) Eos % (Auto) Baso % (Auto) Absolute Neuts (auto) Absolute Lymphs (auto) Total Counted Differential Comment Immature Plt Fraction Retic Count Immature Retic Fraction Retic Hgb Equivalent PT INR Specimen Type Sample Site pH Bicarbonate Actual POC Total CO2 Base Excess O2 Saturation O2 % ABG pCO2 ABG pO2 Dalton Test Respiration Rate O2 Delivery Device Minute Volume Vent Mode Tidal Volume POC PEEP POC Pressure Suppt Blood Gas Notified Whom Blood Gas Notified Time Sodium 125 L 124 L 125 L Potassium 3.2 L 3.2 L 3.2 L Chloride 84 L 83 L 83 L Carbon Dioxide 30.0 31.0 32.0 Anion Gap 11 10 10 BUN 17 17 17 Creatinine 0.91 0.88 0.88 Estim Creat Clear Calc 68.52 70.86 70.86 Est GFR (MDRD) Af Amer 107 110 111 Est GFR (MDRD) Non-Af 88 91 91 BUN/Creatinine Ratio 18.7 19.3 19.3 Glucose 94 94 89 Serum Osmolality Calcium 8.0 L 8.0 L 8.3 L Magnesium 1.4 L Iron TIBC Iron Saturation Ferritin Total Creatine Kinase Troponin I Triglycerides Urine Color Urine Clarity Urine pH Ur Specific [place] Urine Protein Urine Glucose (UA) Urine Ketones Urine Occult Blood Urine Nitrite Urine Bilirubin Urine Urobilinogen Ur Leukocyte Esterase Urine RBC Urine WBC Ur Squamous Epith Cells Urine Bacteria Urine Mucus Urine Osmolality Ur Random Sodium Blood Type Antibody Screen Crossmatch 12/02/18 12/02/18 12/02/18 04:00 04:00 08:13 WBC 6.8 RBC 2.20 L Hgb 7.4 L Hct 21.1 L MCV 95.9 H MCH 33.6 H MCHC 35.1 RDW 16.3 H RDW Differential 53.7 H Plt Count 146 L MPV 7.9 Immature Gran % (Auto) 0.400 Neut % (Auto) 79.4 H Lymph % (Auto) 7.3 L Hart % (Auto) 11.6 H Eos % (Auto) 1.0 Baso % (Auto) 0.3 Absolute Neuts (auto) 5.4 Absolute Lymphs (auto) 0.49 L Total Counted Not Reportable Differential Comment SCANNED Immature Plt Fraction Retic Count Immature Retic Fraction Retic Hgb Equivalent PT 17.3 H INR 1.4 Specimen Type ART Sample Site L Radial pH 7.36 Bicarbonate Actual 29.3 H POC Total CO2 31 Base Excess 4 H O2 Saturation 93 L O2 % 40 ABG pCO2 52.2 H ABG pO2 70 L Dalton Test POS Respiration Rate O2 Delivery Device Vent Minute Volume Vent Mode CPAP PS Tidal Volume POC PEEP 5 POC Pressure Suppt 5 Blood Gas Notified Whom ICU MD Blood Gas Notified Time 812 Sodium Potassium Chloride Carbon Dioxide Anion Gap BUN Creatinine Estim Creat Clear Calc Est GFR (MDRD) Af Amer Est GFR (MDRD) Non-Af BUN/Creatinine Ratio Glucose Serum Osmolality Calcium Magnesium Iron TIBC Iron Saturation Ferritin Total Creatine Kinase Troponin I Triglycerides Urine Color Urine Clarity Urine pH Ur Specific [place] Urine Protein Urine Glucose (UA) Urine Ketones Urine Occult Blood Urine Nitrite Urine Bilirubin Urine Urobilinogen Ur Leukocyte Esterase Urine RBC Urine WBC Ur Squamous Epith Cells Urine Bacteria Urine Mucus Urine Osmolality Ur Random Sodium Blood Type Antibody Screen Crossmatch 12/02/18 08:30 WBC RBC Hgb Hct MCV MCH MCHC RDW RDW Differential Plt Count MPV Immature Gran % (Auto) Neut % (Auto) Lymph % (Auto) Hart % (Auto) Eos % (Auto) Baso % (Auto) Absolute Neuts (auto) Absolute Lymphs (auto) Total Counted Differential Comment Immature Plt Fraction Retic Count Immature Retic Fraction Retic Hgb Equivalent PT INR Specimen Type Sample Site pH Bicarbonate Actual POC Total CO2 Base Excess O2 Saturation O2 % ABG pCO2 ABG pO2 Dalton Test Respiration Rate O2 Delivery Device Minute Volume Vent Mode Tidal Volume POC PEEP POC Pressure Suppt Blood Gas Notified Whom Blood Gas Notified Time Sodium 125 L Potassium 4.5 Chloride 87 L Carbon Dioxide 31.0 Anion Gap 7 BUN 16 Creatinine 0.78 Estim Creat Clear Calc 62.35 Est GFR (MDRD) Af Amer 128 Est GFR (MDRD) Non-Af 106 BUN/Creatinine Ratio 20.6 H Glucose 80 Serum Osmolality Calcium 8.2 L Magnesium Iron TIBC Iron Saturation Ferritin Total Creatine Kinase Troponin I Triglycerides Urine Color Urine Clarity Urine pH Ur Specific [place] Urine Protein Urine Glucose (UA) Urine Ketones Urine Occult Blood Urine Nitrite Urine Bilirubin Urine Urobilinogen Ur Leukocyte Esterase Urine RBC Urine WBC Ur Squamous Epith Cells Urine Bacteria Urine Mucus Urine Osmolality Ur Random Sodium Blood Type Antibody Screen Crossmatch POC Glucose 12/01/18 18:22 POC Glucose 169 H Assessment/Plan All Active Problems (Last Reviewed 11/29/18 @ 06:25 by Radha Payan) Lung cancer (Acute) Anemia (Acute) Skin tear of left forearm without complication (Acute) Skin tear of right forearm without complication (Acute) Lesion of pelvic bone (Acute) Cancer of upper lobe of left lung (Acute) Pneumothorax after biopsy (Acute) Shortness of breath (Acute) Left ventricular thrombus (Acute) Laceration of right elbow without complication (Acute) Abrasion of skin (Acute) Hx of colonoscopy (Resolved) Diverticula of colon (Acute) SOB (shortness of breath) (Acute) Acute respiratory failure with hypoxia (Resolved) Acute on chronic respiratory failure with hypoxia (Resolved) COPD with acute exacerbation (Resolved) CAP (community acquired pneumonia) (Resolved) Chronic respiratory failure with hypoxia and hypercapnia (Resolved) Hyponatremia Heart failure Sodium is improving but a little too fast we will check another sodium now stop the sodium tablets hold the Lasix in the morning if overcorrected will do D5 water to re-lower a little. Continue sodium every 4 hours. Will resume after rate of correction improved fluid restriction and Lasix. Patient is currently seems to be euvolemic. Cannot use urine sodium because the patient was on diuretics to distinguish between SIADH and hyponatremia related to heart failure. Discussed with patient and his present at the bedside.
--- NOTE | 2018-12-02 09:35 | CASEMGMT ---
RN CM Note: spoke with patient and his re: dc planning. PT/OT to see pt today. Pt states he has been independent in home and plan is to return on dc. No ambulatory devices used or owned. If needed, can order from [facility]. Pt has chair lift to basement if needed. No further needs identified @ this time. DC PLAN: home. Ry SETHI RN AC
--- NOTE | 2018-12-02 10:35 | PCM.CON.CC ---
Problem List (1) Cancer of upper lobe of left lung Status: Acute Comment: Squamous cell carcinoma (2) Left ventricular thrombus Status: Acute (3) Implantable cardioverter-defibrillator (ICD) in situ Status: Chronic Comment: [employer] Dynogen EL ICD, model D150; Seriao # [id number] (4) Secondary pulmonary arterial hypertension Status: Chronic (5) Nonischemic cardiomyopathy Status: Chronic Comment: EF 15-20% per heart cath 08/29/2016; 20-35% per echo 12/17/2016 (6) Severe left ventricular systolic dysfunction Status: Chronic Comment: EF 15-20% per heart cath 08/29/2016; 20-35% per echo 12/17/2016 (7) History of left heart catheterization Status: Chronic Comment: Mild, nonobstructive CAD per [facility] 08/29/2016 @ [facility] per Dr. Cantrell (8) Atherosclerotic heart disease of [place] coronary artery without angina pectoris Status: Chronic Comment: Mild, nonobstructive CAD per [facility] 08/29/2016 @ [facility] per Dr. Cantrell (9) PVD (peripheral vascular disease) Status: Chronic (10) Stage 3 severe COPD by GOLD classification Status: Chronic Comment: FEV1 31 (11) PND (paroxysmal nocturnal dyspnea) Status: Chronic (12) Hyperlipidemia Status: Chronic (13) long-term current use of anticoagulant Status: Chronic Reason for Consult Date of Consultation: 12/02/18 Reason for Consultation: Respiratory failure History of Present Illness: The patient is a 67 year old M, with past medical history listed below, who presented to [facility] on 12/01/2018 secondary to complaints of confusion. Patient does have a history of non-small cell lung cancer for which she is currently receiving chemotherapy and prophylactic whole brain radiotherapy. Patient was reportedly unable to tie his shoes and became progressively fatigued. Patient had been drinking lots of water lung initiation of radiotherapy. While in the emergency department, patient's blood pressure was 159/73 and saturating 97% on his baseline 3 L nasal cannula. Patient was noted to have a sodium level of 116, chloride of 76 and bicarbonate of 33. A CT scan of the head showed only chronic evolutionary changes and chest x-ray showed no obvious aspiration. Patient was admitted to the floor for further evaluation. However, on the floor, patient started to have a seizure. Patient was emergently intubated and transferred to the intensive care unit. Patient was also initiated on 3% saline. This morning, patient was doing okay. Patient did require Levophed therapy secondary to hypotension. A decision was made to have a spontaneous breathing trial despite being intubated less than 24 hours. Patient was able to tolerate this well and ABG showed adequate oxygenation ventilation, so patient was extubated. Patient denies any current respiratory distress. Patient is on his baseline nasal cannula oxygen. Patient denies any focal neurologic deficits. Review of systems otherwise negative x10 systems. Past Medical History Past Medical History (Chronic Problems): Chronic Problems (Last Reviewed 11/29/18 @ 06:25 by Radha Payan) Implantable cardioverter-defibrillator (ICD) in situ (Chronic 12/27/16) [employer] EL ICD, model D150; Seriao # [id number] Secondary pulmonary arterial hypertension (Chronic) Nonischemic cardiomyopathy (Chronic) EF 15-20% per heart cath 08/29/2016; 20-35% per echo 12/17/2016 Severe left ventricular systolic dysfunction (Chronic) EF 15-20% per heart cath 08/29/2016; 20-35% per echo 12/17/2016 History of left heart catheterization (Chronic) Mild, nonobstructive CAD per [facility] 08/29/2016 @ [facility] per Dr. Cantrell Atherosclerotic heart disease of [place] coronary artery without angina pectoris (Chronic) Mild, nonobstructive CAD per [facility] 08/29/2016 @ [facility] per Dr. Cantrell PVD (peripheral vascular disease) (Chronic) Long-term use of high-risk medication (Chronic) Stage 3 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) FEV1 31 PND (paroxysmal nocturnal dyspnea) (Chronic) Hyperlipidemia (Chronic) rn long term care current use of anticoagulant (Chronic) Psoriatic arthritis (Chronic) Acne cystica (Chronic) CHF (congestive heart failure), NYHA class I (Chronic) Pulmonary hypertension (Chronic) RVSP 47mm hg per echo 08/28/2016 (unable to estimate per Echo 12/17/2016) Medical History: Medical History (Last Reviewed 11/29/18 @ 06:25 by Radha Payan) Left ventricular thrombus (Acute) I51.3 Nonischemic cardiomyopathy (Chronic) I42.8 EF 15-20% per heart cath 08/29/2016; 20-35% per echo 12/17/2016 Severe left ventricular systolic dysfunction (Chronic) I51.9 EF 15-20% per heart cath 08/29/2016; 20-35% per echo 12/17/2016 Atherosclerotic heart disease of [place] coronary artery without angina pectoris (Chronic) I25.10 Mild, nonobstructive CAD per [facility] 08/29/2016 @ [facility] per Dr. Cantrell PVD (peripheral vascular disease) (Chronic) I73.9 Stage 3 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) J44.9 FEV1 31 PND (paroxysmal nocturnal dyspnea) (Chronic) R06.00 Hyperlipidemia (Chronic) E78.5 SOB (shortness of breath) (Acute) R06.02 long-term current use of anticoagulant (Chronic) Z79.01 Acute on chronic respiratory failure with hypoxia (Resolved) J96.21 Psoriatic arthritis (Chronic) L40.50 CHF (congestive heart failure), NYHA class I (Chronic) I50.9 Pulmonary hypertension (Chronic) I27.2 RVSP 47mm hg per echo 08/28/2016 (unable to estimate per Echo 12/17/2016) Anemia D64.9 Arthritis M19.90 Cancer C80.1 Heart disease I51.9 Lung disease J98.4 SOB (shortness of breath) R06.02 CAP (community acquired pneumonia) (Resolved) J18.9 Chronic respiratory failure with hypoxia and hypercapnia (Resolved) J96.11, J96.12 Allergies No Known Allergies Allergy (Verified 11/29/18 06:24) Home Medications: Ambulatory Orders Medication Instructions Recorded Hydroxychloroquine [Plaquenil] 200 mg PO BIDCM 08/27/16 Multivitamin [Multiple Vitamins] 1 ea PO DAILY 08/27/16 fluticasone propionate 50 2 spray INTRANASAL BID PRN PRN g 10/15/17 mcg/actuation nasal spray,suspension atorvastatin 40 mg tablet 40 mg PO QHS #90 tab 07/27/18 atezolizumab 1,200 mg/20 mL (60 60 mg IV UD ml 08/27/18 mg/mL) intravenous solution levothyroxine 100 mcg tablet 100 mcg PO DAILY 09/28/18 aclidinium bromide 400 1 inh INHALATION BID 10/07/18 mcg/actuation breath activated powder inhaler albuterol sulfate HFA 90 2 puff INHALATION Q4H PRN PRN g 11/25/18 mcg/actuation aerosol inhaler budesonide-formoterol HFA 160 2 puff INHALATION BID 04/11/19 mcg-4.5 mcg/actuation aerosol inhaler aspirin 81 mg tablet,delayed 81 mg PO QODAY tab 11/29/18 release Carvedilol 6.25 mg PO BID 12/01/18 Cetirizine HCl [Zyrtec] 10 mg PO DAILY 12/01/18 Cholecalciferol (VIT D3) [Vitamin 1,000 unit PO BID 12/01/18 D] Furosemide 80 mg PO DAILY 12/01/18 Furosemide [Lasix] 40 mg PO QHS 12/01/18 Losartan Potassium [Cozaar] 25 mg PO DAILY 12/01/18 Magnesium Oxide [Mag-Ox 400] 400 mg PO BID 12/01/18 Omeprazole 40 mg PO DAILY 12/01/18 Warfarin Sodium 5 mg PO SUSA 12/01/18 Warfarin Sodium [Coumadin] 7.5 mg PO MOTUWETHFR 12/01/18 potassium chloride ER 20 mEq 20 meq PO DAILY 12/01/18 tablet,extended release Surgical History: Surgical History (Last Reviewed 11/29/18 @ 06:25 by Radha Payan) Implantable cardioverter-defibrillator (ICD) in situ (Chronic) Onset Date: 12/27/16 Z95.810 [employer] Dynogen EL ICD, model D150; Seriao # [id number] History of left heart catheterization (Chronic) Z98.890 Mild, nonobstructive CAD per [facility] 08/29/2016 @ [facility] per Dr. Cantrell Surgical History: - - Status post ICD, history of left heart catheterization Smoking Status: Former smoker Tobacco Use: Non-smoker Alcohol: None Drugs: None - *Family History Maternal Family History: Family History (Last Reviewed 11/29/18 @ 06:25 by Radha Payan) Mother Heart disease Brother CVA (cerebral vascular accident) Father Cancer Grandmother Diabetes History Items: - - No COPD Paternal Family History: Family History (Last Reviewed 11/29/18 @ 06:25 by Radha Payan) Mother Heart disease Brother CVA (cerebral vascular accident) Father Cancer Grandmother Diabetes History Items: - - No COPD Review of Systems Comment: See HPI Patient Problems: Active and Suspected Problems (Last Reviewed 11/29/18 @ 06:25 by Radha Payan) Lung cancer (Acute) Anemia (Acute) Objective: All imaging was personally reviewed. Patient does not appear to have any focal infiltrates on chest x-ray. CT scan of the head is unremarkable. - Physical Exam General: Alert, Oriented x3, Cooperative, No apparent distress, - - Appears older than stated age. No conversational dyspnea. HEENT: Atraumatic, PERRLA, EOMI, Normocephalic, - - Alopecia noted. Oral: Moist Mucosa, No Gingival or Mucosal Lesions/ Ulcerations Neck: Supple, No JVD, No Nodes, Trachea Midline Lungs: No rhonchi, No wheeze, No rales, Diminished Cardiovascular: Regular rate, Regular Rhythm, Normal S1, Normal S2, No murmurs, No rub noted, No Gallop Abdomen: Bowel Sounds Present, Soft, Non Tender, Non-Distended Extremities: No cyanosis, No edema, Capillary Refill Less than 3 Seconds, Clubbing Skin: No rashes, No breakdown Musculoskeletal: No Tenderness to Palpation of Joints or Extremities Lymphatic: No Cervical, Supraclavicular, or Inguinal Adenopathy Neurological: Cranial nerves II-XII grossly intact, Neuro grossly intact, Motor Exam 5/5 strength throughout Psych/Mental Status: Normal Affect, Appropriate Vital Signs Temp Pulse Resp BP Pulse Ox 36.9 C 67 12 99/51 L 92 12/02/18 07:00 12/02/18 08:48 12/02/18 08:48 12/02/18 07:15 12/02/18 08:50 Oxygen Flow Rate (L/min) 3 Oxygen Delivery Method Nasal Cannula Weight: 70.7 kg Body Mass Index (BMI) 26.6 Finger Stick Blood Glucose 126 Intake and Output for Last 24 Hours 11/30/18 12/01/18 12/02/18 23:59 23:59 23:59 Intake Total 622 / 622 Output Total 1000 / 1000 Balance -378 / -378 Laboratory Tests Past 24 Hrs 12/01/18 12/01/18 12/01/18 13:35 13:35 13:35 WBC 5.0 RBC 2.63 L Hgb 8.8 L Cancelled Hct 24.9 L Cancelled MCV 94.7 H MCH 33.5 H MCHC 35.3 RDW 15.7 H RDW Differential 52.0 H Plt Count 161 MPV 8.0 Immature Gran % (Auto) Neut % (Auto) Lymph % (Auto) [place] % (Auto) Eos % (Auto) Baso % (Auto) Absolute Neuts (auto) Absolute Lymphs (auto) Total Counted Differential Comment Immature Plt Fraction 0.7 L Retic Count 2.72 H Immature Retic Fraction 8.20 Retic Hgb Equivalent 37.7 H PT INR Specimen Type Sample Site pH Bicarbonate Actual POC Total CO2 Base Excess O2 Saturation O2 % ABG pCO2 ABG pO2 Dalton Test Respiration Rate O2 Delivery Device Minute Volume Vent Mode Tidal Volume POC PEEP POC Pressure Suppt Blood Gas Notified Whom Blood Gas Notified Time Sodium 118 L* Potassium 4.0 Chloride 74 L* Carbon Dioxide 35.0 H Anion Gap 9 BUN 14 Creatinine 0.77 Estim Creat Clear Calc 62.35 Est GFR (MDRD) Af Amer 130 Est GFR (MDRD) Non-Af 107 BUN/Creatinine Ratio 18.2 Glucose 90 Serum Osmolality Calcium 8.5 Magnesium Iron TIBC Iron Saturation Ferritin Total Creatine Kinase Troponin I < 0.015 Triglycerides Urine Color Urine Clarity Urine pH Ur Specific [place] Urine Protein Urine Glucose (UA) Urine Ketones Urine Occult Blood Urine Nitrite Urine Bilirubin Urine Urobilinogen Ur Leukocyte Esterase Urine RBC Urine WBC Ur Squamous Epith Cells Urine Bacteria Urine Mucus Urine Osmolality Ur Random Sodium Blood Type Antibody Screen Crossmatch 12/01/18 12/01/18 12/01/18 13:35 13:35 17:00 WBC RBC Hgb Hct MCV MCH MCHC RDW RDW Differential Plt Count MPV Immature Gran % (Auto) Neut % (Auto) Lymph % (Auto) [place] % (Auto) Eos % (Auto) Baso % (Auto) Absolute Neuts (auto) Absolute Lymphs (auto) Total Counted Differential Comment Immature Plt Fraction Retic Count Immature Retic Fraction Retic Hgb Equivalent PT 16.2 H INR 1.3 Specimen Type Sample Site pH Bicarbonate Actual POC Total CO2 Base Excess O2 Saturation O2 % ABG pCO2 ABG pO2 Dalton Test Respiration Rate O2 Delivery Device Minute Volume Vent Mode Tidal Volume POC PEEP POC Pressure Suppt Blood Gas Notified Whom Blood Gas Notified Time Sodium 116 L* Potassium 4.0 Chloride 76 L Carbon Dioxide 33.0 H Anion Gap 7 BUN 14 Creatinine 0.81 Estim Creat Clear Calc 76.98 Est GFR (MDRD) Af Amer 122 Est GFR (MDRD) Non-Af 101 BUN/Creatinine Ratio 17.3 Glucose 85 Serum Osmolality Calcium 8.5 Magnesium Iron 81 TIBC 310 Iron Saturation 26.1 Ferritin 879 H Total Creatine Kinase Troponin I Triglycerides Urine Color Yellow Urine Clarity Clear Urine pH 7.0 Ur Specific [place] 1.005 Urine Protein Negative Urine Glucose (UA) Normal Urine Ketones Negative Urine Occult Blood Negative Urine Nitrite Negative Urine Bilirubin Negative Urine Urobilinogen Normal Ur Leukocyte Esterase Negative Urine RBC 0 SEEN Urine WBC 0 SEEN Ur Squamous Epith Cells 0 SEEN Urine Bacteria 0 SEEN Urine Mucus 0 SEEN Urine Osmolality Ur Random Sodium Blood Type Antibody Screen Crossmatch 12/01/18 12/01/18 12/01/18 17:34 17:34 17:34 WBC RBC Hgb 7.8 L Hct 22.3 L MCV MCH MCHC RDW RDW Differential Plt Count MPV Immature Gran % (Auto) Neut % (Auto) Lymph % (Auto) [place] % (Auto) Eos % (Auto) Baso % (Auto) Absolute Neuts (auto) Absolute Lymphs (auto) Total Counted Differential Comment Immature Plt Fraction Retic Count Immature Retic Fraction Retic Hgb Equivalent PT INR Specimen Type Sample Site pH Bicarbonate Actual POC Total CO2 Base Excess O2 Saturation O2 % ABG pCO2 ABG pO2 Dalton Test Respiration Rate O2 Delivery Device Minute Volume Vent Mode Tidal Volume POC PEEP POC Pressure Suppt Blood Gas Notified Whom Blood Gas Notified Time Sodium 121 L Potassium 4.0 Chloride 81 L Carbon Dioxide 31.0 Anion Gap 9 BUN 12 Creatinine 0.66 L Estim Creat Clear Calc 62.35 Est GFR (MDRD) Af Amer 155 Est GFR (MDRD) Non-Af 128 BUN/Creatinine Ratio 18.3 Glucose 89 Serum Osmolality 248 L Calcium 8.0 L Magnesium Iron TIBC Iron Saturation Ferritin Total Creatine Kinase Troponin I Triglycerides Urine Color Urine Clarity Urine pH Ur Specific [place] Urine Protein Urine Glucose (UA) Urine Ketones Urine Occult Blood Urine Nitrite Urine Bilirubin Urine Urobilinogen Ur Leukocyte Esterase Urine RBC Urine WBC Ur Squamous Epith Cells Urine Bacteria Urine Mucus Urine Osmolality Ur Random Sodium Blood Type Antibody Screen Crossmatch 12/01/18 12/01/18 12/01/18 17:34 18:41 19:45 WBC RBC Hgb Hct MCV MCH MCHC RDW RDW Differential Plt Count MPV Immature Gran % (Auto) Neut % (Auto) Lymph % (Auto) [place] % (Auto) Eos % (Auto) Baso % (Auto) Absolute Neuts (auto) Absolute Lymphs (auto) Total Counted Differential Comment Immature Plt Fraction Retic Count Immature Retic Fraction Retic Hgb Equivalent PT INR Specimen Type Sample Site pH Bicarbonate Actual POC Total CO2 Base Excess O2 Saturation O2 % ABG pCO2 ABG pO2 Dalton Test Respiration Rate O2 Delivery Device Minute Volume Vent Mode Tidal Volume POC PEEP POC Pressure Suppt Blood Gas Notified Whom Blood Gas Notified Time Sodium 120 L Potassium 4.1 Chloride 80 L Carbon Dioxide 30.0 Anion Gap 10 BUN 13 Creatinine 1.03 Estim Creat Clear Calc 60.54 Est GFR (MDRD) Af Amer 92 Est GFR (MDRD) Non-Af 76 BUN/Creatinine Ratio 12.6 Glucose 168 H Serum Osmolality Calcium 8.3 L Magnesium Iron TIBC Iron Saturation Ferritin Total Creatine Kinase 440 H Troponin I Triglycerides 93 Urine Color Urine Clarity Urine pH Ur Specific [place] Urine Protein Urine Glucose (UA) Urine Ketones Urine Occult Blood Urine Nitrite Urine Bilirubin Urine Urobilinogen Ur Leukocyte Esterase Urine RBC Urine WBC Ur Squamous Epith Cells Urine Bacteria Urine Mucus Urine Osmolality 285 Ur Random Sodium Blood Type Antibody Screen Crossmatch 12/01/18 12/01/18 12/01/18 19:45 20:08 20:10 WBC RBC Hgb Hct MCV MCH MCHC RDW RDW Differential Plt Count MPV Immature Gran % (Auto) Neut % (Auto) Lymph % (Auto) [place] % (Auto) Eos % (Auto) Baso % (Auto) Absolute Neuts (auto) Absolute Lymphs (auto) Total Counted Differential Comment Immature Plt Fraction Retic Count Immature Retic Fraction Retic Hgb Equivalent PT INR Specimen Type ART Sample Site L Radial pH 7.43 Bicarbonate Actual 31.4 H POC Total CO2 33 Base Excess 7 H O2 Saturation 99 O2 % 50 ABG pCO2 47.0 H ABG pO2 138 H Dalton Test Respiration Rate 14 O2 Delivery Device Vent Minute Volume 7.00 Vent Mode A-C Tidal Volume 450 POC PEEP 5 POC Pressure Suppt Blood Gas Notified Whom HOSP [place] Blood Gas Notified Time 2000 Sodium 121 L Potassium 3.9 Chloride 80 L Carbon Dioxide 33.0 H Anion Gap 8 BUN 15 Creatinine 0.96 Estim Creat Clear Calc 64.95 Est GFR (MDRD) Af Amer 100 Est GFR (MDRD) Non-Af 83 BUN/Creatinine Ratio 15.6 Glucose 140 H Serum Osmolality Calcium 8.2 L Magnesium Iron TIBC Iron Saturation Ferritin Total Creatine Kinase Troponin I Triglycerides Urine Color Urine Clarity Urine pH Ur Specific [place] Urine Protein Urine Glucose (UA) Urine Ketones Urine Occult Blood Urine Nitrite Urine Bilirubin Urine Urobilinogen Ur Leukocyte Esterase Urine RBC Urine WBC Ur Squamous Epith Cells Urine Bacteria Urine Mucus Urine Osmolality Ur Random Sodium 74 Blood Type Antibody Screen Crossmatch 12/01/18 12/01/18 12/01/18 20:15 21:00 22:15 WBC RBC Hgb 7.8 L Hct 22.2 L MCV MCH MCHC RDW RDW Differential Plt Count MPV Immature Gran % (Auto) Neut % (Auto) Lymph % (Auto) [place] % (Auto) Eos % (Auto) Baso % (Auto) Absolute Neuts (auto) Absolute Lymphs (auto) Total Counted Differential Comment Immature Plt Fraction Retic Count Immature Retic Fraction Retic Hgb Equivalent PT INR Specimen Type Sample Site pH Bicarbonate Actual POC Total CO2 Base Excess O2 Saturation O2 % ABG pCO2 ABG pO2 Dalton Test Respiration Rate O2 Delivery Device Minute Volume Vent Mode Tidal Volume POC PEEP POC Pressure Suppt Blood Gas Notified Whom Blood Gas Notified Time Sodium 120 L Potassium 3.8 Chloride 81 L Carbon Dioxide 32.0 Anion Gap 7 BUN 16 Creatinine 1.01 Estim Creat Clear Calc 61.74 Est GFR (MDRD) Af Amer 95 Est GFR (MDRD) Non-Af 78 BUN/Creatinine Ratio 15.8 Glucose 130 H Serum Osmolality Calcium 8.4 L Magnesium Iron TIBC Iron Saturation Ferritin Total Creatine Kinase Troponin I Triglycerides Urine Color Urine Clarity Urine pH Ur Specific [place] Urine Protein Urine Glucose (UA) Urine Ketones Urine Occult Blood Urine Nitrite Urine Bilirubin Urine Urobilinogen Ur Leukocyte Esterase Urine RBC Urine WBC Ur Squamous Epith Cells Urine Bacteria Urine Mucus Urine Osmolality Ur Random Sodium Blood Type O NEGATIVE Antibody Screen NEGATIVE Crossmatch See Detail 12/01/18 12/01/18 12/02/18 22:15 23:15 00:15 WBC RBC Hgb Hct MCV MCH MCHC RDW RDW Differential Plt Count MPV Immature Gran % (Auto) Neut % (Auto) Lymph % (Auto) [place] % (Auto) Eos % (Auto) Baso % (Auto) Absolute Neuts (auto) Absolute Lymphs (auto) Total Counted Differential Comment Immature Plt Fraction Retic Count Immature Retic Fraction Retic Hgb Equivalent PT INR Specimen Type Sample Site pH Bicarbonate Actual POC Total CO2 Base Excess O2 Saturation O2 % ABG pCO2 ABG pO2 Dalton Test Respiration Rate O2 Delivery Device Minute Volume Vent Mode Tidal Volume POC PEEP POC Pressure Suppt Blood Gas Notified Whom Blood Gas Notified Time Sodium 121 L 122 L 122 L Potassium 3.5 3.2 L 3.3 L Chloride 81 L 83 L 82 L Carbon Dioxide 33.0 H 32.0 31.0 Anion Gap 7 7 9 BUN 16 16 17 Creatinine 0.90 0.88 0.95 Estim Creat Clear Calc 69.28 70.86 65.64 Est GFR (MDRD) Af Amer 108 111 102 Est GFR (MDRD) Non-Af 89 91 84 BUN/Creatinine Ratio 17.8 18.2 17.9 Glucose 99 95 97 Serum Osmolality Calcium 8.4 L 8.4 L 8.1 L Magnesium Iron TIBC Iron Saturation Ferritin Total Creatine Kinase Troponin I Triglycerides Urine Color Urine Clarity Urine pH Ur Specific [place] Urine Protein Urine Glucose (UA) Urine Ketones Urine Occult Blood Urine Nitrite Urine Bilirubin Urine Urobilinogen Ur Leukocyte Esterase Urine RBC Urine WBC Ur Squamous Epith Cells Urine Bacteria Urine Mucus Urine Osmolality Ur Random Sodium Blood Type Antibody Screen Crossmatch 12/02/18 12/02/18 12/02/18 01:00 02:05 04:00 WBC RBC Hgb Hct MCV MCH MCHC RDW RDW Differential Plt Count MPV Immature Gran % (Auto) Neut % (Auto) Lymph % (Auto) [place] % (Auto) Eos % (Auto) Baso % (Auto) Absolute Neuts (auto) Absolute Lymphs (auto) Total Counted Differential Comment Immature Plt Fraction Retic Count Immature Retic Fraction Retic Hgb Equivalent PT INR Specimen Type Sample Site pH Bicarbonate Actual POC Total CO2 Base Excess O2 Saturation O2 % ABG pCO2 ABG pO2 Dalton Test Respiration Rate O2 Delivery Device Minute Volume Vent Mode Tidal Volume POC PEEP POC Pressure Suppt Blood Gas Notified Whom Blood Gas Notified Time Sodium 125 L 124 L 125 L Potassium 3.2 L 3.2 L 3.2 L Chloride 84 L 83 L 83 L Carbon Dioxide 30.0 31.0 32.0 Anion Gap 11 10 10 BUN 17 17 17 Creatinine 0.91 0.88 0.88 Estim Creat Clear Calc 68.52 70.86 70.86 Est GFR (MDRD) Af Amer 107 110 111 Est GFR (MDRD) Non-Af 88 91 91 BUN/Creatinine Ratio 18.7 19.3 19.3 Glucose 94 94 89 Serum Osmolality Calcium 8.0 L 8.0 L 8.3 L Magnesium 1.4 L Iron TIBC Iron Saturation Ferritin Total Creatine Kinase Troponin I Triglycerides Urine Color Urine Clarity Urine pH Ur Specific [place] Urine Protein Urine Glucose (UA) Urine Ketones Urine Occult Blood Urine Nitrite Urine Bilirubin Urine Urobilinogen Ur Leukocyte Esterase Urine RBC Urine WBC Ur Squamous Epith Cells Urine Bacteria Urine Mucus Urine Osmolality Ur Random Sodium Blood Type Antibody Screen Crossmatch 12/02/18 12/02/18 12/02/18 04:00 04:00 08:13 WBC 6.8 RBC 2.20 L Hgb 7.4 L Hct 21.1 L MCV 95.9 H MCH 33.6 H MCHC 35.1 RDW 16.3 H RDW Differential 53.7 H Plt Count 146 L MPV 7.9 Immature Gran % (Auto) 0.400 Neut % (Auto) 79.4 H Lymph % (Auto) 7.3 L [place] % (Auto) 11.6 H Eos % (Auto) 1.0 Baso % (Auto) 0.3 Absolute Neuts (auto) 5.4 Absolute Lymphs (auto) 0.49 L Total Counted Not Reportable Differential Comment SCANNED Immature Plt Fraction Retic Count Immature Retic Fraction Retic Hgb Equivalent PT 17.3 H INR 1.4 Specimen Type ART Sample Site L Radial pH 7.36 Bicarbonate Actual 29.3 H POC Total CO2 31 Base Excess 4 H O2 Saturation 93 L O2 % 40 ABG pCO2 52.2 H ABG pO2 70 L Dalton Test POS Respiration Rate O2 Delivery Device Vent Minute Volume Vent Mode CPAP PS Tidal Volume POC PEEP 5 POC Pressure Suppt 5 Blood Gas Notified Whom ICU MD Blood Gas Notified Time 812 Sodium Potassium Chloride Carbon Dioxide Anion Gap BUN Creatinine Estim Creat Clear Calc Est GFR (MDRD) Af Amer Est GFR (MDRD) Non-Af BUN/Creatinine Ratio Glucose Serum Osmolality Calcium Magnesium Iron TIBC Iron Saturation Ferritin Total Creatine Kinase Troponin I Triglycerides Urine Color Urine Clarity Urine pH Ur Specific [place] Urine Protein Urine Glucose (UA) Urine Ketones Urine Occult Blood Urine Nitrite Urine Bilirubin Urine Urobilinogen Ur Leukocyte Esterase Urine RBC Urine WBC Ur Squamous Epith Cells Urine Bacteria Urine Mucus Urine Osmolality Ur Random Sodium Blood Type Antibody Screen Crossmatch 12/02/18 08:30 WBC RBC Hgb Hct MCV MCH MCHC RDW RDW Differential Plt Count MPV Immature Gran % (Auto) Neut % (Auto) Lymph % (Auto) [place] % (Auto) Eos % (Auto) Baso % (Auto) Absolute Neuts (auto) Absolute Lymphs (auto) Total Counted Differential Comment Immature Plt Fraction Retic Count Immature Retic Fraction Retic Hgb Equivalent PT INR Specimen Type Sample Site pH Bicarbonate Actual POC Total CO2 Base Excess O2 Saturation O2 % ABG pCO2 ABG pO2 Dalton Test Respiration Rate O2 Delivery Device Minute Volume Vent Mode Tidal Volume POC PEEP POC Pressure Suppt Blood Gas Notified Whom Blood Gas Notified Time Sodium 125 L Potassium 4.5 Chloride 87 L Carbon Dioxide 31.0 Anion Gap 7 BUN 16 Creatinine 0.78 Estim Creat Clear Calc 62.35 Est GFR (MDRD) Af Amer 128 Est GFR (MDRD) Non-Af 106 BUN/Creatinine Ratio 20.6 H Glucose 80 Serum Osmolality Calcium 8.2 L Magnesium Iron TIBC Iron Saturation Ferritin Total Creatine Kinase Troponin I Triglycerides Urine Color Urine Clarity Urine pH Ur Specific [place] Urine Protein Urine Glucose (UA) Urine Ketones Urine Occult Blood Urine Nitrite Urine Bilirubin Urine Urobilinogen Ur Leukocyte Esterase Urine RBC Urine WBC Ur Squamous Epith Cells Urine Bacteria Urine Mucus Urine Osmolality Ur Random Sodium Blood Type Antibody Screen Crossmatch POC Glucose 12/01/18 18:22 POC Glucose 169 H Clinical Impression(s) from Imaging Studies Brain CT 12/01/18 13:24 IMPRESSION: Chronic involutional changes of the brain. Electronically Signed: Sebastien Zheng, at 14:41 EDT , Service support , Chest X-Ray 12/01/18 13:24 IMPRESSION: No acute abnormality is seen. Electronically Signed: Sebastien Zheng, at 14:49 EDT , Service support , Chest X-Ray 12/01/18 18:36 IMPRESSION: Satisfactory position of the support lines and tubes. No acute thoracic pathology. Electronically Signed: Shane Smith, at 19:06 EDT Tel , Service support , KUB X-Ray 12/01/18 18:50 IMPRESSION: Enteric tube tip just beyond the GE junction. This could be advanced 10 cm for improved positioning. Electronically Signed: Shane Smith, at 19:07 EDT Tel , Service support , Chest X-Ray 12/01/18 21:25 IMPRESSION: Satisfactory position of the endotracheal tube. Enteric tube extends below the diaphragm, however the tip is not included on this image. Clear lungs. Electronically Signed: Shane Smith, at 21:54 EDT Tel , Service support , Assessment/Plan Active and Suspected Problems (Last Reviewed 11/29/18 @ 06:25 by Radha Payan) Lung cancer (Acute) Anemia (Acute) RECOMMENDATIONS: 1. Seizure precautions 2. Sodium repletion per nephrology 3. Supplemental oxygen to keep saturations greater than 90% 4. Initiate p.o. diet once tolerates bedside swallow eval IMPRESSIONS: 1. New onset seizure secondary to metabolic encephalopathy secondary to severe hyponatremia Medical suspicion for paraneoplastic syndrome of SIADH. Nephrology has been consulted and is following. Patient's sodium has improved and patient is tolerating this well. No focal neurologic deficits are appreciated at this time. Will defer to nephrology for improvement of sodium levels. Patient should be on a fluid restriction. 2. Acute on chronic hypoxic respiratory failure secondary to seizure/advanced COPD Patient with acute hypoxia following seizure activity. Patient does have advanced COPD with an FEV1 of 31%, which complicates overall condition. Patient does not appear to have any aspiration on chest x-ray. Patient does not have significant wheezing suggesting concomitant obstructive lung disease exacerbation. Okay to hold off on steroids from my perspective. Keep saturations greater than 90% at all times. 3. Non-small cell lung cancer Patient currently acting like paraneoplastic SIADH. Unclear if patient would respond well to tolvaptan prophylaxis. Would defer to oncology/nephrology. No pneumothorax is appreciated on current chest imaging. 4. Chronic systolic congestive heart failure with history of LV thrombus Hold Lasix therapy for now given patient's sodium levels. Could consider cardiology evaluation. Does not appear to be in acute exacerbation of CHF at this time. TIME: 45 minutes critical care time spent addressing patient's new onset seizure, hyponatremia, respiratory failure, review of all data and collaboration with care team (6 AM to 8 AM) Code Visit [id number]: [id number] Critical care first hour
--- NOTE | 2018-12-02 10:41 | CON.PCM_ITS ---
Problem List (1) Cancer of upper lobe of left lung Status: Acute Comment: Squamous cell carcinoma (2) Left ventricular thrombus Status: Acute (3) Implantable cardioverter-defibrillator (ICD) in situ Status: Chronic Comment: [employer] Dynogen EL ICD, model D150; Seriao # [id number] (4) Secondary pulmonary arterial hypertension Status: Chronic (5) Nonischemic cardiomyopathy Status: Chronic Comment: EF 15-20% per heart cath 08/29/2016; 20-35% per echo 12/17/2016 (6) Severe left ventricular systolic dysfunction Status: Chronic Comment: EF 15-20% per heart cath 08/29/2016; 20-35% per echo 12/17/2016 (7) History of left heart catheterization Status: Chronic Comment: Mild, nonobstructive CAD per [facility] 08/29/[address] [facility] per Dr. Cantrell (8) Atherosclerotic heart disease of [place] coronary artery without angina pectoris Status: Chronic Comment: Mild, nonobstructive CAD per [facility] 08/29/[address] [facility] per Dr. Cantrell (9) PVD (peripheral vascular disease) Status: Chronic (10) Stage 3 severe COPD by GOLD classification Status: Chronic Comment: FEV1 31 (11) PND (paroxysmal nocturnal dyspnea) Status: Chronic (12) Hyperlipidemia Status: Chronic (13) alf current use of anticoagulant Status: Chronic Reason for Consult Date of Consultation: 12/02/18 Reason for Consultation: Respiratory failure History of Present Illness: The patient is a 67 year old M, with past medical history listed below, who presented to [facility] on 12/01/2018 secondary to complaints of confusion. Patient does have a history of non-small cell lung cancer for which she is currently receiving chemotherapy and prophylactic whole brain radiotherapy. Patient was reportedly unable to tie his shoes and became progressively fatigued. Patient had been drinking lots of water lung initiation of radiotherapy. While in the emergency department, patient's blood pressure was 159/73 and saturating 97% on his baseline 3 L nasal cannula. Patient was noted to have a sodium level of 116, chloride of 76 and bicarbonate of 33. A CT scan of the head showed only chronic evolutionary changes and chest x-ray showed no obvious aspiration. Patient was admitted to the floor for further evaluation. However, on the floor, patient started to have a seizure. Patient was emergently intubated and transferred to the intensive care unit. Patient was also initiated on 3% saline. This morning, patient was doing okay. Patient did require Levophed therapy secondary to hypotension. A decision was made to have a spontaneous breathing trial despite being intubated less than 24 hours. Patient was able to tolerate this well and ABG showed adequate oxygenation ventilation, so patient was extubated. Patient denies any current respiratory distress. Patient is on his baseline nasal cannula oxygen. Patient denies any focal neurologic deficits. Review of systems otherwise negative x10 systems. Past Medical History Past Medical History (Chronic Problems): Chronic Problems (Last Reviewed 11/29/18 @ 06:25 by Radha Payan) Implantable cardioverter-defibrillator (ICD) in situ (Chronic 12/27/16) [employer] EL ICD, model D150; Seriao # [id number] Secondary pulmonary arterial hypertension (Chronic) Nonischemic cardiomyopathy (Chronic) EF 15-20% per heart cath 08/29/2016; 20-35% per echo 12/17/2016 Severe left ventricular systolic dysfunction (Chronic) EF 15-20% per heart cath 08/29/2016; 20-35% per echo 12/17/2016 History of left heart catheterization (Chronic) Mild, nonobstructive CAD per [facility] 08/29/[address] [facility] per Dr. Cantrell Atherosclerotic heart disease of [place] coronary artery without angina pectoris (Chronic) Mild, nonobstructive CAD per [facility] 08/29/[address] [facility] per Dr. 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) Psoriatic arthritis (Chronic) Acne cystica (Chronic) CHF (congestive heart failure), NYHA class I (Chronic) Pulmonary hypertension (Chronic) RVSP 47mm hg per echo 08/28/2016 (unable to estimate per Echo 12/17/2016) Medical History: Medical History (Last Reviewed 11/29/18 @ 06:25 by Radha Payan) Left ventricular thrombus (Acute) I51.3 Nonischemic cardiomyopathy (Chronic) I42.8 EF 15-20% per heart cath 08/29/2016; 20-35% per echo 12/17/2016 Severe left ventricular systolic dysfunction (Chronic) I51.9 EF 15-20% per heart cath 08/29/2016; 20-35% per echo 12/17/2016 Atherosclerotic heart disease of [place] coronary artery without angina pectoris (Chronic) I25.10 Mild, nonobstructive CAD per [facility] 08/29/[address] [facility] per Dr. Cantrell PVD (peripheral vascular disease) (Chronic) I73.9 Stage 3 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) J44.9 FEV1 31 PND (paroxysmal nocturnal dyspnea) (Chronic) R06.00 Hyperlipidemia (Chronic) E78.5 SOB (shortness of breath) (Acute) R06.02 alf current use of anticoagulant (Chronic) Z79.01 Acute on chronic respiratory failure with hypoxia (Resolved) J96.21 Psoriatic arthritis (Chronic) L40.50 CHF (congestive heart failure), NYHA class I (Chronic) I50.9 Pulmonary hypertension (Chronic) I27.2 RVSP 47mm hg per echo 08/28/2016 (unable to estimate per Echo 12/17/2016) Anemia D64.9 Arthritis M19.90 Cancer C80.1 Heart disease I51.9 Lung disease J98.4 SOB (shortness of breath) R06.02 CAP (community acquired pneumonia) (Resolved) J18.9 Chronic respiratory failure with hypoxia and hypercapnia (Resolved) J96.11, J96.12 Allergies No Known Allergies Allergy (Verified 11/29/18 06:24) Home Medications: Ambulatory Orders Medication Instructions Recorded Hydroxychloroquine [Plaquenil] 200 mg PO BIDCM 08/27/16 Multivitamin [Multiple Vitamins] 1 ea PO DAILY 08/27/16 fluticasone propionate 50 2 spray INTRANASAL BID PRN PRN g 10/15/17 mcg/actuation nasal spray,suspension atorvastatin 40 mg tablet 40 mg PO QHS #90 tab 07/27/18 atezolizumab 1,200 mg/20 mL (60 60 mg IV UD ml 08/27/18 mg/mL) intravenous solution levothyroxine 100 mcg tablet 100 mcg PO DAILY 09/28/18 aclidinium bromide 400 1 inh INHALATION BID 10/07/18 mcg/actuation breath activated powder inhaler albuterol sulfate HFA 90 2 puff INHALATION Q4H PRN PRN g 11/25/18 mcg/actuation aerosol inhaler budesonide-formoterol HFA 160 2 puff INHALATION BID 04/11/19 mcg-4.5 mcg/actuation aerosol inhaler aspirin 81 mg tablet,delayed 81 mg PO QODAY tab 11/29/18 release Carvedilol 6.25 mg PO BID 12/01/18 Cetirizine HCl [Zyrtec] 10 mg PO DAILY 12/01/18 Cholecalciferol (VIT D3) [Vitamin 1,000 unit PO BID 12/01/18 D] Furosemide 80 mg PO DAILY 12/01/18 Furosemide [Lasix] 40 mg PO QHS 12/01/18 Losartan Potassium [Cozaar] 25 mg PO DAILY 12/01/18 Magnesium Oxide [Mag-Ox 400] 400 mg PO BID 12/01/18 Omeprazole 40 mg PO DAILY 12/01/18 Warfarin Sodium 5 mg PO SUSA 12/01/18 Warfarin Sodium [Coumadin] 7.5 mg PO MOTUWETHFR 12/01/18 potassium chloride ER 20 mEq 20 meq PO DAILY 12/01/18 tablet,extended release Surgical History: Surgical History (Last Reviewed 11/29/18 @ 06:25 by Radha Payan) Implantable cardioverter-defibrillator (ICD) in situ (Chronic) Onset Date: 12/27/16 Z95.810 [employer] Dynogen EL ICD, model D150; Seriao # [id number] History of left heart catheterization (Chronic) Z98.890 Mild, nonobstructive CAD per [facility] 08/29/[address] [facility] per Dr. Cantrell Surgical History: - - Status post ICD, history of left heart catheterization Smoking Status: Former smoker Tobacco Use: Non-smoker Alcohol: None Drugs: None - *Family History Maternal Family History: Family History (Last Reviewed 11/29/18 @ 06:25 by Radha Payan) Mother Heart disease Brother CVA (cerebral vascular accident) Father Cancer Grandmother Diabetes History Items: - - No COPD Paternal Family History: Family History (Last Reviewed 11/29/18 @ 06:25 by Radha Payan) Mother Heart disease Brother CVA (cerebral vascular accident) Father Cancer Grandmother Diabetes History Items: - - No COPD Review of Systems Comment: See HPI Patient Problems: Active and Suspected Problems (Last Reviewed 11/29/18 @ 06:25 by Radha Payan) Lung cancer (Acute) Anemia (Acute) Objective: All imaging was personally reviewed. Patient does not appear to have any focal infiltrates on chest x-ray. CT scan of the head is unremarkable. - Physical Exam General: Alert, Oriented x3, Cooperative, No apparent distress, - - Appears older than stated age. No conversational dyspnea. HEENT: Atraumatic, PERRLA, EOMI, Normocephalic, - - Alopecia noted. Oral: Moist Mucosa, No Gingival or Mucosal Lesions/ Ulcerations Neck: Supple, No JVD, No Nodes, Trachea Midline Lungs: No rhonchi, No wheeze, No rales, Diminished Cardiovascular: Regular rate, Regular Rhythm, Normal S1, Normal S2, No murmurs, No rub noted, No Gallop Abdomen: Bowel Sounds Present, Soft, Non Tender, Non-Distended Extremities: No cyanosis, No edema, Capillary Refill Less than 3 Seconds, Clubbing Skin: No rashes, No breakdown Musculoskeletal: No Tenderness to Palpation of Joints or Extremities Lymphatic: No Cervical, Supraclavicular, or Inguinal Adenopathy Neurological: Cranial nerves II-XII grossly intact, Neuro grossly intact, Motor Exam 5/5 strength throughout Psych/Mental Status: Normal Affect, Appropriate Vital Signs Temp Pulse Resp BP Pulse Ox 36.9 C 67 12 99/51 L 92 12/02/18 07:00 12/02/18 08:48 12/02/18 08:48 12/02/18 07:15 12/02/18 08:50 Oxygen Flow Rate (L/min) 3 Oxygen Delivery Method Nasal Cannula Weight: 70.7 kg Body Mass Index (BMI) 26.6 Finger Stick Blood Glucose 126 Intake and Output for Last 24 Hours 11/30/18 12/01/18 12/02/18 23:59 23:59 23:59 Intake Total 622 / 622 Output Total 1000 / 1000 Balance -378 / -378 Laboratory Tests Past 24 Hrs 12/01/18 12/01/18 12/01/18 13:35 13:35 13:35 WBC 5.0 RBC 2.63 L Hgb 8.8 L Cancelled Hct 24.9 L Cancelled MCV 94.7 H MCH 33.5 H MCHC 35.3 RDW 15.7 H RDW Differential 52.0 H Plt Count 161 MPV 8.0 Immature Gran % (Auto) Neut % (Auto) Lymph % (Auto) Page % (Auto) Eos % (Auto) Baso % (Auto) Absolute Neuts (auto) Absolute Lymphs (auto) Total Counted Differential Comment Immature Plt Fraction 0.7 L Retic Count 2.72 H Immature Retic Fraction 8.20 Retic Hgb Equivalent 37.7 H PT INR Specimen Type Sample Site pH Bicarbonate Actual POC Total CO2 Base Excess O2 Saturation O2 % ABG pCO2 ABG pO2 Dalton Test Respiration Rate O2 Delivery Device Minute Volume Vent Mode Tidal Volume POC PEEP POC Pressure Suppt Blood Gas Notified Whom Blood Gas Notified Time Sodium 118 L* Potassium 4.0 Chloride 74 L* Carbon Dioxide 35.0 H Anion Gap 9 BUN 14 Creatinine 0.77 Estim Creat Clear Calc 62.35 Est GFR (MDRD) Af Amer 130 Est GFR (MDRD) Non-Af 107 BUN/Creatinine Ratio 18.2 Glucose 90 Serum Osmolality Calcium 8.5 Magnesium Iron TIBC Iron Saturation Ferritin Total Creatine Kinase Troponin I < 0.015 Triglycerides Urine Color Urine Clarity Urine pH Ur Specific [place] Urine Protein Urine Glucose (UA) Urine Ketones Urine Occult Blood Urine Nitrite Urine Bilirubin Urine Urobilinogen Ur Leukocyte Esterase Urine RBC Urine WBC Ur Squamous Epith Cells Urine Bacteria Urine Mucus Urine Osmolality Ur Random Sodium Blood Type Antibody Screen Crossmatch 12/01/18 12/01/18 12/01/18 13:35 13:35 17:00 WBC RBC Hgb Hct MCV MCH MCHC RDW RDW Differential Plt Count MPV Immature Gran % (Auto) Neut % (Auto) Lymph % (Auto) Page % (Auto) Eos % (Auto) Baso % (Auto) Absolute Neuts (auto) Absolute Lymphs (auto) Total Counted Differential Comment Immature Plt Fraction Retic Count Immature Retic Fraction Retic Hgb Equivalent PT 16.2 H INR 1.3 Specimen Type Sample Site pH Bicarbonate Actual POC Total CO2 Base Excess O2 Saturation O2 % ABG pCO2 ABG pO2 Dalton Test Respiration Rate O2 Delivery Device Minute Volume Vent Mode Tidal Volume POC PEEP POC Pressure Suppt Blood Gas Notified Whom Blood Gas Notified Time Sodium 116 L* Potassium 4.0 Chloride 76 L Carbon Dioxide 33.0 H Anion Gap 7 BUN 14 Creatinine 0.81 Estim Creat Clear Calc 76.98 Est GFR (MDRD) Af Amer 122 Est GFR (MDRD) Non-Af 101 BUN/Creatinine Ratio 17.3 Glucose 85 Serum Osmolality Calcium 8.5 Magnesium Iron 81 TIBC 310 Iron Saturation 26.1 Ferritin 879 H Total Creatine Kinase Troponin I Triglycerides Urine Color Yellow Urine Clarity Clear Urine pH 7.0 Ur Specific [place] 1.005 Urine Protein Negative Urine Glucose (UA) Normal Urine Ketones Negative Urine Occult Blood Negative Urine Nitrite Negative Urine Bilirubin Negative Urine Urobilinogen Normal Ur Leukocyte Esterase Negative Urine RBC 0 SEEN Urine WBC 0 SEEN Ur Squamous Epith Cells 0 SEEN Urine Bacteria 0 SEEN Urine Mucus 0 SEEN Urine Osmolality Ur Random Sodium Blood Type Antibody Screen Crossmatch 12/01/18 12/01/18 12/01/18 17:34 17:34 17:34 WBC RBC Hgb 7.8 L Hct 22.3 L MCV MCH MCHC RDW RDW Differential Plt Count MPV Immature Gran % (Auto) Neut % (Auto) Lymph % (Auto) Page % (Auto) Eos % (Auto) Baso % (Auto) Absolute Neuts (auto) Absolute Lymphs (auto) Total Counted Differential Comment Immature Plt Fraction Retic Count Immature Retic Fraction Retic Hgb Equivalent PT INR Specimen Type Sample Site pH Bicarbonate Actual POC Total CO2 Base Excess O2 Saturation O2 % ABG pCO2 ABG pO2 Dalton Test Respiration Rate O2 Delivery Device Minute Volume Vent Mode Tidal Volume POC PEEP POC Pressure Suppt Blood Gas Notified Whom Blood Gas Notified Time Sodium 121 L Potassium 4.0 Chloride 81 L Carbon Dioxide 31.0 Anion Gap 9 BUN 12 Creatinine 0.66 L Estim Creat Clear Calc 62.35 Est GFR (MDRD) Af Amer 155 Est GFR (MDRD) Non-Af 128 BUN/Creatinine Ratio 18.3 Glucose 89 Serum Osmolality 248 L Calcium 8.0 L Magnesium Iron TIBC Iron Saturation Ferritin Total Creatine Kinase Troponin I Triglycerides Urine Color Urine Clarity Urine pH Ur Specific [place] Urine Protein Urine Glucose (UA) Urine Ketones Urine Occult Blood Urine Nitrite Urine Bilirubin Urine Urobilinogen Ur Leukocyte Esterase Urine RBC Urine WBC Ur Squamous Epith Cells Urine Bacteria Urine Mucus Urine Osmolality Ur Random Sodium Blood Type Antibody Screen Crossmatch 12/01/18 12/01/18 12/01/18 17:34 18:41 19:45 WBC RBC Hgb Hct MCV MCH MCHC RDW RDW Differential Plt Count MPV Immature Gran % (Auto) Neut % (Auto) Lymph % (Auto) Page % (Auto) Eos % (Auto) Baso % (Auto) Absolute Neuts (auto) Absolute Lymphs (auto) Total Counted Differential Comment Immature Plt Fraction Retic Count Immature Retic Fraction Retic Hgb Equivalent PT INR Specimen Type Sample Site pH Bicarbonate Actual POC Total CO2 Base Excess O2 Saturation O2 % ABG pCO2 ABG pO2 Dalton Test Respiration Rate O2 Delivery Device Minute Volume Vent Mode Tidal Volume POC PEEP POC Pressure Suppt Blood Gas Notified Whom Blood Gas Notified Time Sodium 120 L Potassium 4.1 Chloride 80 L Carbon Dioxide 30.0 Anion Gap 10 BUN 13 Creatinine 1.03 Estim Creat Clear Calc 60.54 Est GFR (MDRD) Af Amer 92 Est GFR (MDRD) Non-Af 76 BUN/Creatinine Ratio 12.6 Glucose 168 H Serum Osmolality Calcium 8.3 L Magnesium Iron TIBC Iron Saturation Ferritin Total Creatine Kinase 440 H Troponin I Triglycerides 93 Urine Color Urine Clarity Urine pH Ur Specific [place] Urine Protein Urine Glucose (UA) Urine Ketones Urine Occult Blood Urine Nitrite Urine Bilirubin Urine Urobilinogen Ur Leukocyte Esterase Urine RBC Urine WBC Ur Squamous Epith Cells Urine Bacteria Urine Mucus Urine Osmolality 285 Ur Random Sodium Blood Type Antibody Screen Crossmatch 12/01/18 12/01/18 12/01/18 19:45 20:08 20:10 WBC RBC Hgb Hct MCV MCH MCHC RDW RDW Differential Plt Count MPV Immature Gran % (Auto) Neut % (Auto) Lymph % (Auto) Page % (Auto) Eos % (Auto) Baso % (Auto) Absolute Neuts (auto) Absolute Lymphs (auto) Total Counted Differential Comment Immature Plt Fraction Retic Count Immature Retic Fraction Retic Hgb Equivalent PT INR Specimen Type ART Sample Site L Radial pH 7.43 Bicarbonate Actual 31.4 H POC Total CO2 33 Base Excess 7 H O2 Saturation 99 O2 % 50 ABG pCO2 47.0 H ABG pO2 138 H Dalton Test Respiration Rate 14 O2 Delivery Device Vent Minute Volume 7.00 Vent Mode A-C Tidal Volume 450 POC PEEP 5 POC Pressure Suppt Blood Gas Notified Whom HOSP PA Blood Gas Notified Time 2000 Sodium 121 L Potassium 3.9 Chloride 80 L Carbon Dioxide 33.0 H Anion Gap 8 BUN 15 Creatinine 0.96 Estim Creat Clear Calc 64.95 Est GFR (MDRD) Af Amer 100 Est GFR (MDRD) Non-Af 83 BUN/Creatinine Ratio 15.6 Glucose 140 H Serum Osmolality Calcium 8.2 L Magnesium Iron TIBC Iron Saturation Ferritin Total Creatine Kinase Troponin I Triglycerides Urine Color Urine Clarity Urine pH Ur Specific [place] Urine Protein Urine Glucose (UA) Urine Ketones Urine Occult Blood Urine Nitrite Urine Bilirubin Urine Urobilinogen Ur Leukocyte Esterase Urine RBC Urine WBC Ur Squamous Epith Cells Urine Bacteria Urine Mucus Urine Osmolality Ur Random Sodium 74 Blood Type Antibody Screen Crossmatch 12/01/18 12/01/18 12/01/18 20:15 21:00 22:15 WBC RBC Hgb 7.8 L Hct 22.2 L MCV MCH MCHC RDW RDW Differential Plt Count MPV Immature Gran % (Auto) Neut % (Auto) Lymph % (Auto) Page % (Auto) Eos % (Auto) Baso % (Auto) Absolute Neuts (auto) Absolute Lymphs (auto) Total Counted Differential Comment Immature Plt Fraction Retic Count Immature Retic Fraction Retic Hgb Equivalent PT INR Specimen Type Sample Site pH Bicarbonate Actual POC Total CO2 Base Excess O2 Saturation O2 % ABG pCO2 ABG pO2 Dalton Test Respiration Rate O2 Delivery Device Minute Volume Vent Mode Tidal Volume POC PEEP POC Pressure Suppt Blood Gas Notified Whom Blood Gas Notified Time Sodium 120 L Potassium 3.8 Chloride 81 L Carbon Dioxide 32.0 Anion Gap 7 BUN 16 Creatinine 1.01 Estim Creat Clear Calc 61.74 Est GFR (MDRD) Af Amer 95 Est GFR (MDRD) Non-Af 78 BUN/Creatinine Ratio 15.8 Glucose 130 H Serum Osmolality Calcium 8.4 L Magnesium Iron TIBC Iron Saturation Ferritin Total Creatine Kinase Troponin I Triglycerides Urine Color Urine Clarity Urine pH Ur Specific [place] Urine Protein Urine Glucose (UA) Urine Ketones Urine Occult Blood Urine Nitrite Urine Bilirubin Urine Urobilinogen Ur Leukocyte Esterase Urine RBC Urine WBC Ur Squamous Epith Cells Urine Bacteria Urine Mucus Urine Osmolality Ur Random Sodium Blood Type O NEGATIVE Antibody Screen NEGATIVE Crossmatch See Detail 12/01/18 12/01/18 12/02/18 22:15 23:15 00:15 WBC RBC Hgb Hct MCV MCH MCHC RDW RDW Differential Plt Count MPV Immature Gran % (Auto) Neut % (Auto) Lymph % (Auto) Page % (Auto) Eos % (Auto) Baso % (Auto) Absolute Neuts (auto) Absolute Lymphs (auto) Total Counted Differential Comment Immature Plt Fraction Retic Count Immature Retic Fraction Retic Hgb Equivalent PT INR Specimen Type Sample Site pH Bicarbonate Actual POC Total CO2 Base Excess O2 Saturation O2 % ABG pCO2 ABG pO2 Dalton Test Respiration Rate O2 Delivery Device Minute Volume Vent Mode Tidal Volume POC PEEP POC Pressure Suppt Blood Gas Notified Whom Blood Gas Notified Time Sodium 121 L 122 L 122 L Potassium 3.5 3.2 L 3.3 L Chloride 81 L 83 L 82 L Carbon Dioxide 33.0 H 32.0 31.0 Anion Gap 7 7 9 BUN 16 16 17 Creatinine 0.90 0.88 0.95 Estim Creat Clear Calc 69.28 70.86 65.64 Est GFR (MDRD) Af Amer 108 111 102 Est GFR (MDRD) Non-Af 89 91 84 BUN/Creatinine Ratio 17.8 18.2 17.9 Glucose 99 95 97 Serum Osmolality Calcium 8.4 L 8.4 L 8.1 L Magnesium Iron TIBC Iron Saturation Ferritin Total Creatine Kinase Troponin I Triglycerides Urine Color Urine Clarity Urine pH Ur Specific [place] Urine Protein Urine Glucose (UA) Urine Ketones Urine Occult Blood Urine Nitrite Urine Bilirubin Urine Urobilinogen Ur Leukocyte Esterase Urine RBC Urine WBC Ur Squamous Epith Cells Urine Bacteria Urine Mucus Urine Osmolality Ur Random Sodium Blood Type Antibody Screen Crossmatch 12/02/18 12/02/18 12/02/18 01:00 02:05 04:00 WBC RBC Hgb Hct MCV MCH MCHC RDW RDW Differential Plt Count MPV Immature Gran % (Auto) Neut % (Auto) Lymph % (Auto) Page % (Auto) Eos % (Auto) Baso % (Auto) Absolute Neuts (auto) Absolute Lymphs (auto) Total Counted Differential Comment Immature Plt Fraction Retic Count Immature Retic Fraction Retic Hgb Equivalent PT INR Specimen Type Sample Site pH Bicarbonate Actual POC Total CO2 Base Excess O2 Saturation O2 % ABG pCO2 ABG pO2 Dalton Test Respiration Rate O2 Delivery Device Minute Volume Vent Mode Tidal Volume POC PEEP POC Pressure Suppt Blood Gas Notified Whom Blood Gas Notified Time Sodium 125 L 124 L 125 L Potassium 3.2 L 3.2 L 3.2 L Chloride 84 L 83 L 83 L Carbon Dioxide 30.0 31.0 32.0 Anion Gap 11 10 10 BUN 17 17 17 Creatinine 0.91 0.88 0.88 Estim Creat Clear Calc 68.52 70.86 70.86 Est GFR (MDRD) Af Amer 107 110 111 Est GFR (MDRD) Non-Af 88 91 91 BUN/Creatinine Ratio 18.7 19.3 19.3 Glucose 94 94 89 Serum Osmolality Calcium 8.0 L 8.0 L 8.3 L Magnesium 1.4 L Iron TIBC Iron Saturation Ferritin Total Creatine Kinase Troponin I Triglycerides Urine Color Urine Clarity Urine pH Ur Specific [place] Urine Protein Urine Glucose (UA) Urine Ketones Urine Occult Blood Urine Nitrite Urine Bilirubin Urine Urobilinogen Ur Leukocyte Esterase Urine RBC Urine WBC Ur Squamous Epith Cells Urine Bacteria Urine Mucus Urine Osmolality Ur Random Sodium Blood Type Antibody Screen Crossmatch 12/02/18 12/02/18 12/02/18 04:00 04:00 08:13 WBC 6.8 RBC 2.20 L Hgb 7.4 L Hct 21.1 L MCV 95.9 H MCH 33.6 H MCHC 35.1 RDW 16.3 H RDW Differential 53.7 H Plt Count 146 L MPV 7.9 Immature Gran % (Auto) 0.400 Neut % (Auto) 79.4 H Lymph % (Auto) 7.3 L Page % (Auto) 11.6 H Eos % (Auto) 1.0 Baso % (Auto) 0.3 Absolute Neuts (auto) 5.4 Absolute Lymphs (auto) 0.49 L Total Counted Not Reportable Differential Comment SCANNED Immature Plt Fraction Retic Count Immature Retic Fraction Retic Hgb Equivalent PT 17.3 H INR 1.4 Specimen Type ART Sample Site L Radial pH 7.36 Bicarbonate Actual 29.3 H POC Total CO2 31 Base Excess 4 H O2 Saturation 93 L O2 % 40 ABG pCO2 52.2 H ABG pO2 70 L Dalton Test POS Respiration Rate O2 Delivery Device Vent Minute Volume Vent Mode CPAP PS Tidal Volume POC PEEP 5 POC Pressure Suppt 5 Blood Gas Notified Whom ICU MD Blood Gas Notified Time 812 Sodium Potassium Chloride Carbon Dioxide Anion Gap BUN Creatinine Estim Creat Clear Calc Est GFR (MDRD) Af Amer Est GFR (MDRD) Non-Af BUN/Creatinine Ratio Glucose Serum Osmolality Calcium Magnesium Iron TIBC Iron Saturation Ferritin Total Creatine Kinase Troponin I Triglycerides Urine Color Urine Clarity Urine pH Ur Specific [place] Urine Protein Urine Glucose (UA) Urine Ketones Urine Occult Blood Urine Nitrite Urine Bilirubin Urine Urobilinogen Ur Leukocyte Esterase Urine RBC Urine WBC Ur Squamous Epith Cells Urine Bacteria Urine Mucus Urine Osmolality Ur Random Sodium Blood Type Antibody Screen Crossmatch 12/02/18 08:30 WBC RBC Hgb Hct MCV MCH MCHC RDW RDW Differential Plt Count MPV Immature Gran % (Auto) Neut % (Auto) Lymph % (Auto) Page % (Auto) Eos % (Auto) Baso % (Auto) Absolute Neuts (auto) Absolute Lymphs (auto) Total Counted Differential Comment Immature Plt Fraction Retic Count Immature Retic Fraction Retic Hgb Equivalent PT INR Specimen Type Sample Site pH Bicarbonate Actual POC Total CO2 Base Excess O2 Saturation O2 % ABG pCO2 ABG pO2 Dalton Test Respiration Rate O2 Delivery Device Minute Volume Vent Mode Tidal Volume POC PEEP POC Pressure Suppt Blood Gas Notified Whom Blood Gas Notified Time Sodium 125 L Potassium 4.5 Chloride 87 L Carbon Dioxide 31.0 Anion Gap 7 BUN 16 Creatinine 0.78 Estim Creat Clear Calc 62.35 Est GFR (MDRD) Af Amer 128 Est GFR (MDRD) Non-Af 106 BUN/Creatinine Ratio 20.6 H Glucose 80 Serum Osmolality Calcium 8.2 L Magnesium Iron TIBC Iron Saturation Ferritin Total Creatine Kinase Troponin I Triglycerides Urine Color Urine Clarity Urine pH Ur Specific [place] Urine Protein Urine Glucose (UA) Urine Ketones Urine Occult Blood Urine Nitrite Urine Bilirubin Urine Urobilinogen Ur Leukocyte Esterase Urine RBC Urine WBC Ur Squamous Epith Cells Urine Bacteria Urine Mucus Urine Osmolality Ur Random Sodium Blood Type Antibody Screen Crossmatch POC Glucose 12/01/18 18:22 POC Glucose 169 H Clinical Impression(s) from Imaging Studies Brain CT 12/01/18 13:24 IMPRESSION: Chronic involutional changes of the brain. Electronically Signed: Sebastien Zheng, at 14:41 EDT , Service support , Chest X-Ray 12/01/18 13:24 IMPRESSION: No acute abnormality is seen. Electronically Signed: Sebastien Zheng, at 14:49 EDT , Service support , Chest X-Ray 12/01/18 18:36 IMPRESSION: Satisfactory position of the support lines and tubes. No acute thoracic pathology. Electronically Signed: Shane Smith, at 19:06 EDT Tel , Service support , KUB X-Ray 12/01/18 18:50 IMPRESSION: Enteric tube tip just beyond the GE junction. This could be advanced 10 cm for improved positioning. Electronically Signed: Shane Smith, at 19:07 EDT Tel , Service support , Chest X-Ray 12/01/18 21:25 IMPRESSION: Satisfactory position of the endotracheal tube. Enteric tube extends below the diaphragm, however the tip is not included on this image. Clear lungs. Electronically Signed: Shane Smith, at 21:54 EDT Tel , Service support , Assessment/Plan Active and Suspected Problems (Last Reviewed 11/29/18 @ 06:25 by Radha Payan) Lung cancer (Acute) Anemia (Acute) RECOMMENDATIONS: 1. Seizure precautions 2. Sodium repletion per nephrology 3. Supplemental oxygen to keep saturations greater than 90% 4. Initiate p.o. diet once tolerates bedside swallow eval IMPRESSIONS: 1. New onset seizure secondary to metabolic encephalopathy secondary to severe hyponatremia Medical suspicion for paraneoplastic syndrome of SIADH. Nephrology has been consulted and is following. Patient's sodium has improved and patient is tolerating this well. No focal neurologic deficits are appreciated at this time. Will defer to nephrology for improvement of sodium levels. Patient should be on a fluid restriction. 2. Acute on chronic hypoxic respiratory failure secondary to seizure/advanced COPD Patient with acute hypoxia following seizure activity. Patient does have advanced COPD with an FEV1 of 31%, which complicates overall condition. Patient does not appear to have any aspiration on chest x-ray. Patient does not have significant wheezing suggesting concomitant obstructive lung disease exacerbation. Okay to hold off on steroids from my perspective. Keep saturations greater than 90% at all times. 3. Non-small cell lung cancer Patient currently acting like paraneoplastic SIADH. Unclear if patient would respond well to tolvaptan prophylaxis. Would defer to oncology/nephrology. No pneumothorax is appreciated on current chest imaging. 4. Chronic systolic congestive heart failure with history of LV thrombus Hold Lasix therapy for now given patient's sodium levels. Could consider cardiology evaluation. Does not appear to be in acute exacerbation of CHF at this time. TIME: 45 minutes critical care time spent addressing patient's new onset seizure, hyponatremia, respiratory failure, review of all data and collaboration with care team (6 AM to 8 AM) Code Visit [id number]: [id number] Critical care first hour
[2018-12-02 11:00] LABS: Sodium Level 125 mmol/L (136-145)
[2018-12-02] MEDS: Carvedilol 6.25 MG Tablet PO ×2 (11:47→17:41)
[2018-12-02] MEDS: CHLORHEXIDINE GLUC 2% CLOTH 1 EACH TOWELETTE TOPICAL (12:35)
--- NOTE | 2018-12-02 12:47 | PCM.PN.HOSP ---
Patient Problems: Active and Suspected Problems (Last Reviewed 11/29/18 @ 06:25 by Radha Payan) Lung cancer (Acute) Anemia (Acute) Subjective: Events reviewed. Seen while he was still intubated, indicated no pain, nor SOB. Vitals/I&O's: Vital Signs Temp Pulse Resp BP Pulse Ox 36.9 C 67 12 99/51 L 92 12/02/18 07:00 12/02/18 08:48 12/02/18 08:48 12/02/18 07:15 12/02/18 08:50 Oxygen Flow Rate (L/min) 3 Oxygen Delivery Method Nasal Cannula Weight: 70.7 kg Body Mass Index (BMI) 26.6 Finger Stick Blood Glucose 126 Intake and Output for Last 24 Hours 11/30/18 12/01/18 12/02/18 23:59 23:59 23:59 Intake Total 862 / 862 Output Total 1350 / 1350 Balance -488 / -488 General: Alert, No apparent distress, - - on vent HEENT: Atraumatic, Normocephalic Oral: Moist Mucosa, No Gingival or Mucosal Lesions/ Ulcerations Neck: No Nodes, Thyroid Normal Size and Texture Lungs: No rhonchi, No wheeze, Diminished Cardiovascular: Regular rate, Regular Rhythm, Normal S1, Normal S2, No murmurs Abdomen: Bowel Sounds Present, Soft, Non Tender, Non-Distended, No Hepato-splenomegaly Extremities: No edema, No Calf Tenderness Skin: No rashes, No breakdown Psych/Mental Status: Normal Affect, Appropriate Laboratory Results 12/01/18 13:35: WBC 5.0, RBC 2.63 L, Hgb 8.8 L, Hct 24.9 L, MCV 94.7 H, MCH 33.5 H, MCHC 35.3, RDW 15.7 H, RDW Differential 52.0 H, Plt Count 161, MPV 8.0 12/01/18 13:35: Sodium 118 L*, Potassium 4.0, Chloride 74 L*, Carbon Dioxide 35.0 H, Anion Gap 9, BUN 14, Creatinine 0.77, Estim Creat Clear Calc 62.35, Est GFR (MDRD) Af Amer 130, Est GFR (MDRD) Non-Af 107, BUN/Creatinine Ratio 18.2, Glucose 90, Calcium 8.5, Troponin I < 0.015 12/01/18 13:35: Hgb Cancelled, Hct Cancelled, Immature Plt Fraction 0.7 L, Retic Count 2.72 H, Immature Retic Fraction 8.20, Retic Hgb Equivalent 37.7 H 12/01/18 13:35: Sodium 116 L*, Potassium 4.0, Chloride 76 L, Carbon Dioxide 33.0 H, Anion Gap 7, BUN 14, Creatinine 0.81, Estim Creat Clear Calc 76.98, Est GFR (MDRD) Af Amer 122, Est GFR (MDRD) Non-Af 101, BUN/Creatinine Ratio 17.3, Glucose 85, Calcium 8.5, Iron 81, TIBC 310, Iron Saturation 26.1, Ferritin 879 H 12/01/18 13:35: PT 16.2 H, INR 1.3 12/01/18 17:00: Urine Color Yellow, Urine Clarity Clear, Urine pH 7.0, Ur Specific [place] 1.005, Urine Protein Negative, Urine Glucose (UA) Normal, Urine Ketones Negative, Urine Occult Blood Negative, Urine Nitrite Negative, Urine Bilirubin Negative, Urine Urobilinogen Normal, Ur Leukocyte Esterase Negative, Urine RBC 0 SEEN, Urine WBC 0 SEEN, Ur Squamous Epith Cells 0 SEEN, Urine Bacteria 0 SEEN, Urine Mucus 0 SEEN 12/01/18 17:34: Sodium 121 L, Potassium 4.0, Chloride 81 L, Carbon Dioxide 31.0, Anion Gap 9, BUN 12, Creatinine 0.66 L, Estim Creat Clear Calc 62.35, Est GFR (MDRD) Af Amer 155, Est GFR (MDRD) Non-Af 128, BUN/Creatinine Ratio 18.3, Glucose 89, Calcium 8.0 L 12/01/18 17:34: Serum Osmolality 248 L 12/01/18 17:34: Hgb 7.8 L, Hct 22.3 L 12/01/18 17:34: Total Creatine Kinase 440 H, Triglycerides 93 12/01/18 18:22: POC Glucose 169 H 12/01/18 18:41: Sodium 120 L, Potassium 4.1, Chloride 80 L, Carbon Dioxide 30.0, Anion Gap 10, BUN 13, Creatinine 1.03, Estim Creat Clear Calc 60.54, Est GFR (MDRD) Af Amer 92, Est GFR (MDRD) Non-Af 76, BUN/Creatinine Ratio 12.6, Glucose 168 H, Calcium 8.3 L 12/01/18 19:45: Urine Osmolality 285 12/01/18 19:45: Ur Random Sodium 74 12/01/18 20:08: Specimen Type ART, Sample Site L Radial, pH 7.43, Bicarbonate Actual 31.4 H, POC Total CO2 33, Base Excess 7 H, O2 Saturation 99, O2 % 50, ABG pCO2 47.0 H, ABG pO2 138 H, Respiration Rate 14, O2 Delivery Device Vent, Minute Volume 7.00, Vent Mode A-C, Tidal Volume 450, POC PEEP 5, Blood Gas Notified Whom BOONE SUBRAMANIAN, Blood Gas Notified Time 200012/01/18 20:10: Sodium 121 L, Potassium 3.9, Chloride 80 L, Carbon Dioxide 33.0 H, Anion Gap 8, BUN 15, Creatinine 0.96, Estim Creat Clear Calc 64.95, Est GFR (MDRD) Af Amer 100, Est GFR (MDRD) Non-Af 83, BUN/Creatinine Ratio 15.6, Glucose 140 H, Calcium 8.2 L 12/01/18 20:15: Blood Type O NEGATIVE, Antibody Screen NEGATIVE, Crossmatch See Detail 12/01/18 21:00: Sodium 120 L, Potassium 3.8, Chloride 81 L, Carbon Dioxide 32.0, Anion Gap 7, BUN 16, Creatinine 1.01, Estim Creat Clear Calc 61.74, Est GFR (MDRD) Af Amer 95, Est GFR (MDRD) Non-Af 78, BUN/Creatinine Ratio 15.8, Glucose 130 H, Calcium 8.4 L 12/01/18 22:15: Hgb 7.8 L, Hct 22.2 L 12/01/18 22:15: Sodium 121 L, Potassium 3.5, Chloride 81 L, Carbon Dioxide 33.0 H, Anion Gap 7, BUN 16, Creatinine 0.90, Estim Creat Clear Calc 69.28, Est GFR (MDRD) Af Amer 108, Est GFR (MDRD) Non-Af 89, BUN/Creatinine Ratio 17.8, Glucose 99, Calcium 8.4 L 12/01/18 23:15: Sodium 122 L, Potassium 3.2 L, Chloride 83 L, Carbon Dioxide 32.0, Anion Gap 7, BUN 16, Creatinine 0.88, Estim Creat Clear Calc 70.86, Est GFR (MDRD) Af Amer 111, Est GFR (MDRD) Non-Af 91, BUN/Creatinine Ratio 18.2, Glucose 95, Calcium 8.4 L 12/02/18 00:15: Sodium 122 L, Potassium 3.3 L, Chloride 82 L, Carbon Dioxide 31.0, Anion Gap 9, BUN 17, Creatinine 0.95, Estim Creat Clear Calc 65.64, Est GFR (MDRD) Af Amer 102, Est GFR (MDRD) Non-Af 84, BUN/Creatinine Ratio 17.9, Glucose 97, Calcium 8.1 L 12/02/18 01:00: Sodium 125 L, Potassium 3.2 L, Chloride 84 L, Carbon Dioxide 30.0, Anion Gap 11, BUN 17, Creatinine 0.91, Estim Creat Clear Calc 68.52, Est GFR (MDRD) Af Amer 107, Est GFR (MDRD) Non-Af 88, BUN/Creatinine Ratio 18.7, Glucose 94, Calcium 8.0 L 12/02/18 02:05: Sodium 124 L, Potassium 3.2 L, Chloride 83 L, Carbon Dioxide 31.0, Anion Gap 10, BUN 17, Creatinine 0.88, Estim Creat Clear Calc 70.86, Est GFR (MDRD) Af Amer 110, Est GFR (MDRD) Non-Af 91, BUN/Creatinine Ratio 19.3, Glucose 94, Calcium 8.0 L 12/02/18 04:00: Sodium 125 L, Potassium 3.2 L, Chloride 83 L, Carbon Dioxide 32.0, Anion Gap 10, BUN 17, Creatinine 0.88, Estim Creat Clear Calc 70.86, Est GFR (MDRD) Af Amer 111, Est GFR (MDRD) Non-Af 91, BUN/Creatinine Ratio 19.3, Glucose 89, Calcium 8.3 L, Magnesium 1.4 L 12/02/18 04:00: PT 17.3 H, INR 1.4 12/02/18 04:00: WBC 6.8, RBC 2.20 L, Hgb 7.4 L, Hct 21.1 L, MCV 95.9 H, MCH 33.6 H, MCHC 35.1, RDW 16.3 H, RDW Differential 53.7 H, Plt Count 146 L, MPV 7.9, Immature Gran % (Auto) 0.400, Neut % (Auto) 79.4 H, Lymph % (Auto) 7.3 L, [place] % (Auto) 11.6 H, Eos % (Auto) 1.0, Baso % (Auto) 0.3, Absolute Neuts (auto) 5.4, Absolute Lymphs (auto) 0.49 L, Total Counted Not Reportable, Differential Comment SCANNED 12/02/18 08:13: Specimen Type ART, Sample Site L Radial, pH 7.36, Bicarbonate Actual 29.3 H, POC Total CO2 31, Base Excess 4 H, O2 Saturation 93 L, O2 % 40, ABG pCO2 52.2 H, ABG pO2 70 L, [place] Test POS, O2 Delivery Device Vent, Vent Mode CPAP PS, POC PEEP 5, POC Pressure Suppt 5, Blood Gas Notified Whom ICU MD, Blood Gas Notified Time 812 12/02/18 08:30: Sodium 125 L, Potassium 4.5, Chloride 87 L, Carbon Dioxide 31.0, Anion Gap 7, BUN 16, Creatinine 0.78, Estim Creat Clear Calc 62.35, Est GFR (MDRD) Af Amer 128, Est GFR (MDRD) Non-Af 106, BUN/Creatinine Ratio 20.6 H, Glucose 80, Calcium 8.2 L 12/02/18 10:40: Sodium 125 L Current Medications Albuterol/Ipratropium (Duoneb) 3 ml INHALATION Q6HWA.RT [facility] Last Admin: 12/02/18 07:10 Dose: 3 ml Aspirin (Aspirin, Baby) 81 mg PO QODAY@0800 [facility] Atorvastatin Calcium (Lipitor) 40 mg PO QHS [facility] Budesonide (Pulmicort Aerosol) 0.5 mg INHALATION BID.RT [facility] Last Admin: 12/02/18 07:10 Dose: 0.5 mg Carvedilol (Coreg) 6.25 mg PO BIDCM [facility] Last Admin: 12/02/18 11:47 Dose: 6.25 mg Chlorhexidine Gluconate () 1 each TOPICAL DAILY [facility] Last Admin: 12/02/18 12:35 Dose: 1 each Enoxaparin Sodium (Lovenox) 70 mg SC Q12@0600,1800 [facility] Last Admin: 12/02/18 12:29 Dose: 70 mg Furosemide (Lasix) 40 mg PO BID@1000,1800 [facility] Sodium Chloride () 250 mls @ 15 mls/hr IV .[id number] PRN PRN Reason: SALINE FLUSH Last Admin: 12/01/18 22:41 Dose: 15 mls/hr Ampicillin Sodium/Sulbactam (Sodium 3 gm/ Sodium Chloride) 112 mls @ 150 mls/hr IV Q6 [facility] Last Admin: 12/02/18 06:41 Dose: 150 mls/hr Dextrose () 250 mls @ 125 mls/hr IV .Q2H [facility] Stop: 12/02/18 14:04 Last Admin: 12/02/18 12:30 Dose: 125 mls/hr Levothyroxine Sodium (Synthroid) 100 mcg PO DAILY@0600 [facility] Losartan Potassium (Cozaar) 25 mg PO DAILY [facility] Magnesium Oxide (Mag-Ox 400) 400 mg PO BIDCM [facility] Multivitamins (Multivitamin) 1 tablet PO DAILYCM [facility] Ondansetron HCl (Zofran) 4 mg IV Q8H PRN PRN PRN Reason: NAUSEA Pantoprazole Sodium (Protonix) 40 mg PO BID [facility] Sodium Chloride () 10 - 40 ml IV UD PRN PRN Reason: SALINE FLUSH Last Admin: 12/02/18 06:42 Dose: 40 ml Warfarin Sodium (Coumadin (Pbkc)) 7.5 mg PO MoTuWeThFr@1700 [facility] Warfarin Sodium (Coumadin (Pbkc)) 5 mg PO SuSa@1700 [facility] Medical Necessity - Tobacco Use Smoking Status: Former smoker Tobacco Use: Non-smoker Assessment/Plan All Active Problems (Last Reviewed 11/29/18 @ 06:25 by Radha Payan) Lung cancer (Acute) Anemia (Acute) Skin tear of left forearm without complication (Acute) Skin tear of right forearm without complication (Acute) Lesion of pelvic bone (Acute) Cancer of upper lobe of left lung (Acute) Pneumothorax after biopsy (Acute) Shortness of breath (Acute) Left ventricular thrombus (Acute) Laceration of right elbow without complication (Acute) Abrasion of skin (Acute) Hx of colonoscopy (Resolved) Diverticula of colon (Acute) SOB (shortness of breath) (Acute) Acute respiratory failure with hypoxia (Resolved) Acute on chronic respiratory failure with hypoxia (Resolved) COPD with acute exacerbation (Resolved) CAP (community acquired pneumonia) (Resolved) Chronic respiratory failure with hypoxia and hypercapnia (Resolved) 1. acute hypercapnic respiratory failure no documented hypoxia, though pt was satting 91% with an ambubag may have be due post-ictal period resolved extubated today. 2. Acute seizure: may have been d/t hyponatremia need to further evaluate: EEG. cannot do MRI d/t ICD 3. Aspiration pneumonia Unasyn pulm toilet 4. Hyponatremia overall, improved off hypertonic saline nephrology following. 5. NSCLC follow up with oncology 6. pAfib stable. anticoagulated. 7. VTE prophylaxis: anticoagulated. Code Visit Inpatient E&M: 25126 Subs Hosp L2
--- NOTE | 2018-12-02 13:00 | PN_ITS ---
Patient Problems: Active and Suspected Problems (Last Reviewed 11/29/18 @ 06:25 by Radha Payan) Lung cancer (Acute) Anemia (Acute) Subjective: Events reviewed. Seen while he was still intubated, indicated no pain, nor SOB. Vitals/I&O's: Vital Signs Temp Pulse Resp BP Pulse Ox 36.9 C 67 12 99/51 L 92 12/02/18 07:00 12/02/18 08:48 12/02/18 08:48 12/02/18 07:15 12/02/18 08:50 Oxygen Flow Rate (L/min) 3 Oxygen Delivery Method Nasal Cannula Weight: 70.7 kg Body Mass Index (BMI) 26.6 Finger Stick Blood Glucose 126 Intake and Output for Last 24 Hours 11/30/18 12/01/18 12/02/18 23:59 23:59 23:59 Intake Total 862 / 862 Output Total 1350 / 1350 Balance -488 / -488 General: Alert, No apparent distress, - - on vent HEENT: Atraumatic, Normocephalic Oral: Moist Mucosa, No Gingival or Mucosal Lesions/ Ulcerations Neck: No Nodes, Thyroid Normal Size and Texture Lungs: No rhonchi, No wheeze, Diminished Cardiovascular: Regular rate, Regular Rhythm, Normal S1, Normal S2, No murmurs Abdomen: Bowel Sounds Present, Soft, Non Tender, Non-Distended, No Hepato- splenomegaly Extremities: No edema, No Calf Tenderness Skin: No rashes, No breakdown Psych/Mental Status: Normal Affect, Appropriate Laboratory Results 12/01/18 13:35: WBC 5.0, RBC 2.63 L, Hgb 8.8 L, Hct 24.9 L, MCV 94.7 H, MCH 33.5 H, MCHC 35.3, RDW 15.7 H, RDW Differential 52.0 H, Plt Count 161, MPV 8.0 12/01/18 13:35: Sodium 118 L*, Potassium 4.0, Chloride 74 L*, Carbon Dioxide 35.0 H, Anion Gap 9, BUN 14, Creatinine 0.77, Estim Creat Clear Calc 62.35, Est GFR (MDRD) Af Amer 130, Est GFR (MDRD) Non-Af 107, BUN/Creatinine Ratio 18.2, Glucose 90, Calcium 8.5, Troponin I < 0.015 12/01/18 13:35: Hgb Cancelled, Hct Cancelled, Immature Plt Fraction 0.7 L, Retic Count 2.72 H, Immature Retic Fraction 8.20, Retic Hgb Equivalent 37.7 H 12/01/18 13:35: Sodium 116 L*, Potassium 4.0, Chloride 76 L, Carbon Dioxide 33.0 H, Anion Gap 7, BUN 14, Creatinine 0.81, Estim Creat Clear Calc 76.98, Est GFR (MDRD) Af Amer 122, Est GFR (MDRD) Non-Af 101, BUN/Creatinine Ratio 17.3, Glucose 85, Calcium 8.5, Iron 81, TIBC 310, Iron Saturation 26.1, Ferritin 879 H 12/01/18 13:35: PT 16.2 H, INR 1.3 12/01/18 17:00: Urine Color Yellow, Urine Clarity Clear, Urine pH 7.0, Ur Specific [place] 1.005, Urine Protein Negative, Urine Glucose (UA) Normal, Urine Ketones Negative, Urine Occult Blood Negative, Urine Nitrite Negative, Urine Bilirubin Negative, Urine Urobilinogen Normal, Ur Leukocyte Esterase Negative, Urine RBC 0 SEEN, Urine WBC 0 SEEN, Ur Squamous Epith Cells 0 SEEN, Urine Bacteria 0 SEEN, Urine Mucus 0 SEEN 12/01/18 17:34: Sodium 121 L, Potassium 4.0, Chloride 81 L, Carbon Dioxide 31.0, Anion Gap 9, BUN 12, Creatinine 0.66 L, Estim Creat Clear Calc 62.35, Est GFR (MDRD) Af Amer 155, Est GFR (MDRD) Non-Af 128, BUN/Creatinine Ratio 18.3, Gluc ose 89, Calcium 8.0 L 12/01/18 17:34: Serum Osmolality 248 L 12/01/18 17:34: Hgb 7.8 L, Hct 22.3 L 12/01/18 17:34: Total Creatine Kinase 440 H, Triglycerides 93 12/01/18 18:22: POC Glucose 169 H 12/01/18 18:41: Sodium 120 L, Potassium 4.1, Chloride 80 L, Carbon Dioxide 30.0, Anion Gap 10, BUN 13, Creatinine 1.03, Estim Creat Clear Calc 60.54, Est GFR (MDRD) Af Amer 92, Est GFR (MDRD) Non-Af 76, BUN/Creatinine Ratio 12.6, Glucose 168 H, Calcium 8.3 L 12/01/18 19:45: Urine Osmolality 285 12/01/18 19:45: Ur Random Sodium 74 12/01/18 20:08: Specimen Type ART, Sample Site L Radial, pH 7.43, Bicarbonate Actual 31.4 H, POC Total CO2 33, Base Excess 7 H, O2 Saturation 99, O2 % 50, ABG pCO2 47.0 H, ABG pO2 138 H, Respiration Rate 14, O2 Delivery Device Vent, Minute Volume 7.00, Vent Mode A-C, Tidal Volume 450, POC PEEP 5, Blood Gas Notified Whom BOONE SUBRAMANIAN, Blood Gas Notified Time 200012/01/18 20:10: Sodium 121 L, Potassium 3.9, Chloride 80 L, Carbon Dioxide 33.0 H, Anion Gap 8, BUN 15, Creatinine 0.96, Estim Creat Clear Calc 64.95, Est GFR (MDRD) Af Amer 100, Est GFR (MDRD) Non-Af 83, BUN/Creatinine Ratio 15.6, Glucose 140 H, Calcium 8.2 L 12/01/18 20:15: Blood Type O NEGATIVE, Antibody Screen NEGATIVE, Crossmatch See Detail 12/01/18 21:00: Sodium 120 L, Potassium 3.8, Chloride 81 L, Carbon Dioxide 32.0, Anion Gap 7, BUN 16, Creatinine 1.01, Estim Creat Clear Calc 61.74, Est GFR (MDRD) Af Amer 95, Est GFR (MDRD) Non-Af 78, BUN/Creatinine Ratio 15.8, Glucose 130 H, Calcium 8.4 L 12/01/18 22:15: Hgb 7.8 L, Hct 22.2 L 12/01/18 22:15: Sodium 121 L, Potassium 3.5, Chloride 81 L, Carbon Dioxide 33.0 H, Anion Gap 7, BUN 16, Creatinine 0.90, Estim Creat Clear Calc 69.28, Est GFR (MDRD) Af Amer 108, Est GFR (MDRD) Non-Af 89, BUN/Creatinine Ratio 17.8, Glucose 99, Calcium 8.4 L 12/01/18 23:15: Sodium 122 L, Potassium 3.2 L, Chloride 83 L, Carbon Dioxide 32.0, Anion Gap 7, BUN 16, Creatinine 0.88, Estim Creat Clear Calc 70.86, Est GFR (MDRD) Af Amer 111, Est GFR (MDRD) Non-Af 91, BUN/Creatinine Ratio 18.2, Glucose 95, Calcium 8.4 L 12/02/18 00:15: Sodium 122 L, Potassium 3.3 L, Chloride 82 L, Carbon Dioxide 31.0, Anion Gap 9, BUN 17, Creatinine 0.95, Estim Creat Clear Calc 65.64, Est GFR (MDRD) Af Amer 102, Est GFR (MDRD) Non-Af 84, BUN/Creatinine Ratio 17.9, Glucose 97, Calcium 8.1 L 12/02/18 01:00: Sodium 125 L, Potassium 3.2 L, Chloride 84 L, Carbon Dioxide 30.0, Anion Gap 11, BUN 17, Creatinine 0.91, Estim Creat Clear Calc 68.52, Est GFR (MDRD) Af Amer 107, Est GFR (MDRD) Non-Af 88, BUN/Creatinine Ratio 18.7, Glucose 94, Calcium 8.0 L 12/02/18 02:05: Sodium 124 L, Potassium 3.2 L, Chloride 83 L, Carbon Dioxide 31.0, Anion Gap 10, BUN 17, Creatinine 0.88, Estim Creat Clear Calc 70.86, Est GFR (MDRD) Af Amer 110, Est GFR (MDRD) Non-Af 91, BUN/Creatinine Ratio 19.3, Glucose 94, Calcium 8.0 L 12/02/18 04:00: Sodium 125 L, Potassium 3.2 L, Chloride 83 L, Carbon Dioxide 32.0, Anion Gap 10, BUN 17, Creatinine 0.88, Estim Creat Clear Calc 70.86, Est GFR (MDRD) Af Amer 111, Est GFR (MDRD) Non-Af 91, BUN/Creatinine Ratio 19.3, Glucose 89, Calcium 8.3 L, Magnesium 1.4 L 12/02/18 04:00: PT 17.3 H, INR 1.4 12/02/18 04:00: WBC 6.8, RBC 2.20 L, Hgb 7.4 L, Hct 21.1 L, MCV 95.9 H, MCH 33.6 H, MCHC 35.1, RDW 16.3 H, RDW Differential 53.7 H, Plt Count 146 L, MPV 7.9, Immature Gran % (Auto) 0.400, Neut % (Auto) 79.4 H, Lymph % (Auto) 7.3 L, [place] % (Auto) 11.6 H, Eos % (Auto) 1.0, Baso % (Auto) 0.3, Absolute Neuts (auto) 5.4, Absolute Lymphs (auto) 0.49 L, Total Counted Not Reportable, Differential Comment SCANNED 12/02/18 08:13: Specimen Type ART, Sample Site L Radial, pH 7.36, Bicarbonate Actual 29.3 H, POC Total CO2 31, Base Excess 4 H, O2 Saturation 93 L, O2 % 40, ABG pCO2 52.2 H, ABG pO2 70 L, [place] Test POS, O2 Delivery Device Vent, Vent Mode CPAP PS, POC PEEP 5, POC Pressure Suppt 5, Blood Gas Notified Whom ICU MD, Blood Gas Notified Time 812 12/02/18 08:30: Sodium 125 L, Potassium 4.5, Chloride 87 L, Carbon Dioxide 31.0, Anion Gap 7, BUN 16, Creatinine 0.78, Estim Creat Clear Calc 62.35, Est GFR (MDRD) Af Amer 128, Est GFR (MDRD) Non-Af 106, BUN/Creatinine Ratio 20.6 H, Glucose 80, Calcium 8.2 L 12/02/18 10:40: Sodium 125 L Current Medications Albuterol/Ipratropium (Duoneb) 3 ml INHALATION Q6HWA.RT [facility] Last Admin: 12/02/18 07:10 Dose: 3 ml Aspirin (Aspirin, Baby) 81 mg PO QODAY@0800 [facility] Atorvastatin Calcium (Lipitor) 40 mg PO QHS [facility] Budesonide (Pulmicort Aerosol) 0.5 mg INHALATION BID.RT [facility] Last Admin: 12/02/18 07:10 Dose: 0.5 mg Carvedilol (Coreg) 6.25 mg PO BIDCM [facility] Last Admin: 12/02/18 11:47 Dose: 6.25 mg Chlorhexidine Gluconate () 1 each TOPICAL DAILY [facility] Last Admin: 12/02/18 12:35 Dose: 1 each Enoxaparin Sodium (Lovenox) 70 mg SC Q12@0600,1800 [facility] Last Admin: 12/02/18 12:29 Dose: 70 mg Furosemide (Lasix) 40 mg PO BID@1000,1800 [facility] Sodium Chloride () 250 mls @ 15 mls/hr IV .[id number] PRN PRN Reason: SALINE FLUSH Last Admin: 12/01/18 22:41 Dose: 15 mls/hr Ampicillin Sodium/Sulbactam (Sodium 3 gm/ Sodium Chloride) 112 mls @ 150 mls/hr IV Q6 [facility] Last Admin: 12/02/18 06:41 Dose: 150 mls/hr Dextrose () 250 mls @ 125 mls/hr IV .Q2H [facility] Stop: 12/02/18 14:04 Last Admin: 12/02/18 12:30 Dose: 125 mls/hr Levothyroxine Sodium (Synthroid) 100 mcg PO DAILY@0600 [facility] Losartan Potassium (Cozaar) 25 mg PO DAILY [facility] Magnesium Oxide (Mag-Ox 400) 400 mg PO BIDCM [facility] Multivitamins (Multivitamin) 1 tablet PO DAILYCM [facility] Ondansetron HCl (Zofran) 4 mg IV Q8H PRN PRN PRN Reason: NAUSEA Pantoprazole Sodium (Protonix) 40 mg PO BID [facility] Sodium Chloride () 10 - 40 ml IV UD PRN PRN Reason: SALINE FLUSH Last Admin: 12/02/18 06:42 Dose: 40 ml Warfarin Sodium (Coumadin (Pbkc)) 7.5 mg PO MoTuWeThFr@1700 [facility] Warfarin Sodium (Coumadin (Pbkc)) 5 mg PO SuSa@1700 [facility] Medical Necessity - Tobacco Use Smoking Status: Former smoker Tobacco Use: Non-smoker Assessment/Plan All Active Problems (Last Reviewed 11/29/18 @ 06:25 by Radha Payan) Lung cancer (Acute) Anemia (Acute) Skin tear of left forearm without complication (Acute) Skin tear of right forearm without complication (Acute) Lesion of pelvic bone (Acute) Cancer of upper lobe of left lung (Acute) Pneumothorax after biopsy (Acute) Shortness of breath (Acute) Left ventricular thrombus (Acute) Laceration of right elbow without complication (Acute) Abrasion of skin (Acute) Hx of colonoscopy (Resolved) Diverticula of colon (Acute) SOB (shortness of breath) (Acute) Acute respiratory failure with hypoxia (Resolved) Acute on chronic respiratory failure with hypoxia (Resolved) COPD with acute exacerbation (Resolved) CAP (community acquired pneumonia) (Resolved) Chronic respiratory failure with hypoxia and hypercapnia (Resolved) 1. acute hypercapnic respiratory failure * no documented hypoxia, though pt was satting 91% with an ambubag * may have be due post-ictal period * resolved * extubated today. 2. Acute seizure: * may have been d/t hyponatremia * need to further evaluate: EEG. cannot do MRI d/t ICD 3. Aspiration pneumonia * Unasyn * pulm toilet 4. Hyponatremia * overall, improved * off hypertonic saline * nephrology following. 5. NSCLC * follow up with oncology 6. pAfib * stable. anticoagulated. 7. VTE prophylaxis: anticoagulated. Code Visit Inpatient E&M: 17864 Subs Hosp L2
--- NOTE | 2018-12-02 13:22 | CASEMGMT ---
LW/POPascual in echart, SW printed and placed in chart. MAK De [place]
[2018-12-02 15:24] LABS: Anion Gap 2 (5-15); BUN 13 mg/dL (7-18); BUN/Creat Ratio 16.6 RATIO (10-20); Calcium,Total 8.2 mg/dL (8.5-10.1); Chloride 87 mmol/L (98-107); Creatinine, Serum 0.78 mg/dL (0.70-1.30); EST Glomerular Filtration Rate 105 mL/min (>60); Est Glom Filt Rate - Afr Amer 127 mL/min (>60); Estimated Creatinine Clearance 62.35 ml/min; Glucose 145 mg/dL (74-106); Potassium 4.1 mmol/L (3.5-5.1); Sodium Level 123 mmol/L (136-145)
[2018-12-02] MEDS: Furosemide 40 MG Tablet PO (16:15)
[2018-12-02] MEDS: Magnesium Oxide 400 MG Tablet PO (16:15)
[2018-12-02] MEDS: SODIUM CHLORIDE 1 GM TABLET 2 GM PO (16:15)
[2018-12-02 20:30] LABS: Anion Gap 4 (5-15); BUN 13 mg/dL (7-18); BUN/Creat Ratio 14.5 RATIO (10-20); Calcium,Total 8.4 mg/dL (8.5-10.1); Chloride 88 mmol/L (98-107); Creatinine, Serum 0.89 mg/dL (0.70-1.30); EST Glomerular Filtration Rate 90 mL/min (>60); Est Glom Filt Rate - Afr Amer 109 mL/min (>60); Estimated Creatinine Clearance 70.06 ml/min; Glucose 139 mg/dL (74-106); Potassium 3.8 mmol/L (3.5-5.1); Sodium Level 125 mmol/L (136-145)
[2018-12-02] MEDS: Pantoprazole Sodium 40 MG Tablet PO (21:33)
[2018-12-02] MEDS: Atorvastatin Calcium 40 MG Tablet PO (21:33)
[2018-12-03] VITALS (30 sets, daily range): BP systolic 112–152; BP diastolic 50–100; PULSE 74–99; RESP 12–21; TEMP 36.6–36.9; O2SAT 87–100
[2018-12-03 05:21] LABS: Absolute Lymphocyte Count 0.48 X10^3/ul (0.83-4.51); Absolute Neutrophil Count 5.9 X10^3/uL (2.0-7.7); Basophil# 0.01 X10^3/uL; Basophil% 0.1 % (0-1); Eosinophil# 0.09 X10^3/uL; Eosinophils% 1.3 % (0-5); Hematocrit 20.3 % (40-54); Hemoglobin 6.9 g/dl (13.0-16.5); Lymphocyte # 0.48 X10^3/ul (4.0); Lymphocyte % 6.7 % (19-41); Mean Platelet Vol. 7.8 fl (6.2-12.0); Monocyte# 0.66 X10^3/uL; Monocyte% 9.2 % (0-10); Neutrophil % 82.4 % (47-70); Platelet Count 129 K/mm3 (150-450); RBC Distribution Width CV 16.6 % (11.6-14.6); RBC Distribution Width SD 57.3 fl (35.1-43.9); Red Blood Count 2.03 M/mm3 (4.6-6.2); White Blood Count 7.2 K/mm3 (4.4-11.0)
[2018-12-03 05:24] LABS: Differential Indicated SCAN CRITERIA MET; International Normalized Ratio 1.5; POSITIVE COUNT NO; POSITIVE DIFFERENTIAL YES; POSITIVE MORPHOLOGY NO; Prothrombin Time (Protime)PT. 18.1 SECONDS (11.7-14.9)
[2018-12-03 05:25] LABS: Anion Gap 5 (5-15); BUN 11 mg/dL (7-18); BUN/Creat Ratio 15.1 RATIO (10-20); Calcium,Total 8.4 mg/dL (8.5-10.1); Chloride 90 mmol/L (98-107); Creatinine, Serum 0.73 mg/dL (0.70-1.30); EST Glomerular Filtration Rate 114 mL/min (>60); Est Glom Filt Rate - Afr Amer 138 mL/min (>60); Estimated Creatinine Clearance 62.35 ml/min; Glucose 98 mg/dL (74-106); Potassium 3.7 mmol/L (3.5-5.1); Sodium Level 130 mmol/L (136-145)
[2018-12-03] MEDS: Ipratropium/Albuterol Sulfate 3 ML AMPUL.NEB INHALATION ×3 (05:43→19:18)
[2018-12-03 05:47] LABS: Differential Comment SCANNED
[2018-12-03] MEDS: Budesonide Respules 0.5 MG/2 ML AMPUL.NEB. INHALATION ×2 (06:41→19:18)
[2018-12-03] MEDS: Enoxaparin 80 MG/0.8 ML Syringe 70 MG SC ×2 (06:46→18:33)
--- NOTE | 2018-12-03 07:08 | PCM.PN.INT ---
Subjective: Patient did well overnight. No acute issues were reported outside of some hypoxemia requiring BiPAP rescue. Patient did not have any fevers. Nursing has reported consistent losing from the PICC line site. Coagulation studies have been sent. Patient is denying any pain at this time. General: Alert, Oriented x3, Cooperative, No apparent distress, - - Good BiPAP synchrony. HEENT: Atraumatic, PERRLA, EOMI, Normocephalic, - - Alopecia Oral: Moist Mucosa, No Gingival or Mucosal Lesions/ Ulcerations Neck: Supple, No Nodes, Trachea Midline, JVD, Right Lungs: No rhonchi, No wheeze, No rales, Diminished, - - Symmetric expansion. No dullness to percussion. Cardiovascular: Regular rate, Regular Rhythm, Normal S1, Normal S2, No murmurs, No rub noted, No Gallop Abdomen: Bowel Sounds Present, Soft, Non Tender, Non-Distended Extremities: No cyanosis, Clubbing, Edema Skin: - - No significant change compared to previous Musculoskeletal: No Tenderness to Palpation of Joints or Extremities Lymphatic: No Cervical, Supraclavicular, or Inguinal Adenopathy Neurological: Cranial nerves II-XII grossly intact, Neuro grossly intact, Motor Exam 5/5 strength throughout Psych/Mental Status: Alert and oriented to time, place, person, mood and affect Vital Signs Temp Pulse Resp BP Pulse Ox 36.6 C 80 15 120/95 H 94 12/03/18 04:00 12/03/18 07:00 12/03/18 07:00 12/03/18 07:00 12/03/18 07:00 Oxygen Flow Rate (L/min) 6 Oxygen Delivery Method Bi-pap Weight: 71.5 kg Body Mass Index (BMI) 26.6 Finger Stick Blood Glucose 126 Intake and Output for Last 24 Hours 12/01/18 12/02/18 12/03/18 23:59 23:59 23:59 Intake Total 1024 / 1024 532 / 532 Output Total 1600 / 1600 750 / 750 Balance -576 / -576 -218 / -218 Labs (Last 48 Hours) 12/01/18 12/01/18 12/01/18 13:35 13:35 13:35 WBC 5.0 RBC 2.63 L Hgb 8.8 L Cancelled Hct 24.9 L Cancelled MCV 94.7 H MCH 33.5 H MCHC 35.3 RDW 15.7 H RDW Differential 52.0 H Plt Count 161 MPV 8.0 Immature Gran % (Auto) Neut % (Auto) Lymph % (Auto) [place] % (Auto) Eos % (Auto) Baso % (Auto) Absolute Neuts (auto) Absolute Lymphs (auto) Total Counted Differential Comment Immature Plt Fraction 0.7 L Retic Count 2.72 H Immature Retic Fraction 8.20 Retic Hgb Equivalent 37.7 H PT INR Specimen Type Sample Site pH Bicarbonate Actual POC Total CO2 Base Excess O2 Saturation O2 % ABG pCO2 ABG pO2 Dalton Test Respiration Rate O2 Delivery Device Minute Volume Vent Mode Tidal Volume POC PEEP POC Pressure Suppt Blood Gas Notified Whom Blood Gas Notified Time Sodium 118 L* Potassium 4.0 Chloride 74 L* Carbon Dioxide 35.0 H Anion Gap 9 BUN 14 Creatinine 0.77 Estim Creat Clear Calc 62.35 Est GFR (MDRD) Af Amer 130 Est GFR (MDRD) Non-Af 107 BUN/Creatinine Ratio 18.2 Glucose 90 Serum Osmolality Calcium 8.5 Magnesium Iron TIBC Iron Saturation Ferritin Total Creatine Kinase Troponin I < 0.015 Triglycerides Urine Color Urine Clarity Urine pH Ur Specific [place] Urine Protein Urine Glucose (UA) Urine Ketones Urine Occult Blood Urine Nitrite Urine Bilirubin Urine Urobilinogen Ur Leukocyte Esterase Urine RBC Urine WBC Ur Squamous Epith Cells Urine Bacteria Urine Mucus Urine Osmolality Ur Random Sodium POC Glucose Blood Type Antibody Screen Crossmatch 12/01/18 12/01/18 12/01/18 13:35 13:35 17:00 WBC RBC Hgb Hct MCV MCH MCHC RDW RDW Differential Plt Count MPV Immature Gran % (Auto) Neut % (Auto) Lymph % (Auto) [place] % (Auto) Eos % (Auto) Baso % (Auto) Absolute Neuts (auto) Absolute Lymphs (auto) Total Counted Differential Comment Immature Plt Fraction Retic Count Immature Retic Fraction Retic Hgb Equivalent PT 16.2 H INR 1.3 Specimen Type Sample Site pH Bicarbonate Actual POC Total CO2 Base Excess O2 Saturation O2 % ABG pCO2 ABG pO2 Dalton Test Respiration Rate O2 Delivery Device Minute Volume Vent Mode Tidal Volume POC PEEP POC Pressure Suppt Blood Gas Notified Whom Blood Gas Notified Time Sodium 116 L* Potassium 4.0 Chloride 76 L Carbon Dioxide 33.0 H Anion Gap 7 BUN 14 Creatinine 0.81 Estim Creat Clear Calc 76.98 Est GFR (MDRD) Af Amer 122 Est GFR (MDRD) Non-Af 101 BUN/Creatinine Ratio 17.3 Glucose 85 Serum Osmolality Calcium 8.5 Magnesium Iron 81 TIBC 310 Iron Saturation 26.1 Ferritin 879 H Total Creatine Kinase Troponin I Triglycerides Urine Color Yellow Urine Clarity Clear Urine pH 7.0 Ur Specific [place] 1.005 Urine Protein Negative Urine Glucose (UA) Normal Urine Ketones Negative Urine Occult Blood Negative Urine Nitrite Negative Urine Bilirubin Negative Urine Urobilinogen Normal Ur Leukocyte Esterase Negative Urine RBC 0 SEEN Urine WBC 0 SEEN Ur Squamous Epith Cells 0 SEEN Urine Bacteria 0 SEEN Urine Mucus 0 SEEN Urine Osmolality Ur Random Sodium POC Glucose Blood Type Antibody Screen Crossmatch 12/01/18 12/01/18 12/01/18 17:34 17:34 17:34 WBC RBC Hgb 7.8 L Hct 22.3 L MCV MCH MCHC RDW RDW Differential Plt Count MPV Immature Gran % (Auto) Neut % (Auto) Lymph % (Auto) [place] % (Auto) Eos % (Auto) Baso % (Auto) Absolute Neuts (auto) Absolute Lymphs (auto) Total Counted Differential Comment Immature Plt Fraction Retic Count Immature Retic Fraction Retic Hgb Equivalent PT INR Specimen Type Sample Site pH Bicarbonate Actual POC Total CO2 Base Excess O2 Saturation O2 % ABG pCO2 ABG pO2 Dalton Test Respiration Rate O2 Delivery Device Minute Volume Vent Mode Tidal Volume POC PEEP POC Pressure Suppt Blood Gas Notified Whom Blood Gas Notified Time Sodium 121 L Potassium 4.0 Chloride 81 L Carbon Dioxide 31.0 Anion Gap 9 BUN 12 Creatinine 0.66 L Estim Creat Clear Calc 62.35 Est GFR (MDRD) Af Amer 155 Est GFR (MDRD) Non-Af 128 BUN/Creatinine Ratio 18.3 Glucose 89 Serum Osmolality 248 L Calcium 8.0 L Magnesium Iron TIBC Iron Saturation Ferritin Total Creatine Kinase Troponin I Triglycerides Urine Color Urine Clarity Urine pH Ur Specific [place] Urine Protein Urine Glucose (UA) Urine Ketones Urine Occult Blood Urine Nitrite Urine Bilirubin Urine Urobilinogen Ur Leukocyte Esterase Urine RBC Urine WBC Ur Squamous Epith Cells Urine Bacteria Urine Mucus Urine Osmolality Ur Random Sodium POC Glucose Blood Type Antibody Screen Crossmatch 12/01/18 12/01/18 12/01/18 17:34 18:22 18:41 WBC RBC Hgb Hct MCV MCH MCHC RDW RDW Differential Plt Count MPV Immature Gran % (Auto) Neut % (Auto) Lymph % (Auto) [place] % (Auto) Eos % (Auto) Baso % (Auto) Absolute Neuts (auto) Absolute Lymphs (auto) Total Counted Differential Comment Immature Plt Fraction Retic Count Immature Retic Fraction Retic Hgb Equivalent PT INR Specimen Type Sample Site pH Bicarbonate Actual POC Total CO2 Base Excess O2 Saturation O2 % ABG pCO2 ABG pO2 Dalton Test Respiration Rate O2 Delivery Device Minute Volume Vent Mode Tidal Volume POC PEEP POC Pressure Suppt Blood Gas Notified Whom Blood Gas Notified Time Sodium 120 L Potassium 4.1 Chloride 80 L Carbon Dioxide 30.0 Anion Gap 10 BUN 13 Creatinine 1.03 Estim Creat Clear Calc 60.54 Est GFR (MDRD) Af Amer 92 Est GFR (MDRD) Non-Af 76 BUN/Creatinine Ratio 12.6 Glucose 168 H Serum Osmolality Calcium 8.3 L Magnesium Iron TIBC Iron Saturation Ferritin Total Creatine Kinase 440 H Troponin I Triglycerides 93 Urine Color Urine Clarity Urine pH Ur Specific [place] Urine Protein Urine Glucose (UA) Urine Ketones Urine Occult Blood Urine Nitrite Urine Bilirubin Urine Urobilinogen Ur Leukocyte Esterase Urine RBC Urine WBC Ur Squamous Epith Cells Urine Bacteria Urine Mucus Urine Osmolality Ur Random Sodium POC Glucose 169 H Blood Type Antibody Screen Crossmatch 12/01/18 12/01/18 12/01/18 19:45 19:45 20:08 WBC RBC Hgb Hct MCV MCH MCHC RDW RDW Differential Plt Count MPV Immature Gran % (Auto) Neut % (Auto) Lymph % (Auto) [place] % (Auto) Eos % (Auto) Baso % (Auto) Absolute Neuts (auto) Absolute Lymphs (auto) Total Counted Differential Comment Immature Plt Fraction Retic Count Immature Retic Fraction Retic Hgb Equivalent PT INR Specimen Type ART Sample Site L Radial pH 7.43 Bicarbonate Actual 31.4 H POC Total CO2 33 Base Excess 7 H O2 Saturation 99 O2 % 50 ABG pCO2 47.0 H ABG pO2 138 H Dalton Test Respiration Rate 14 O2 Delivery Device Vent Minute Volume 7.00 Vent Mode A-C Tidal Volume 450 POC PEEP 5 POC Pressure Suppt Blood Gas Notified Whom [facility] Blood Gas Notified Time 2000 Sodium Potassium Chloride Carbon Dioxide Anion Gap BUN Creatinine Estim Creat Clear Calc Est GFR (MDRD) Af Amer Est GFR (MDRD) Non-Af BUN/Creatinine Ratio Glucose Serum Osmolality Calcium Magnesium Iron TIBC Iron Saturation Ferritin Total Creatine Kinase Troponin I Triglycerides Urine Color Urine Clarity Urine pH Ur Specific [place] Urine Protein Urine Glucose (UA) Urine Ketones Urine Occult Blood Urine Nitrite Urine Bilirubin Urine Urobilinogen Ur Leukocyte Esterase Urine RBC Urine WBC Ur Squamous Epith Cells Urine Bacteria Urine Mucus Urine Osmolality 285 Ur Random Sodium 74 POC Glucose Blood Type Antibody Screen Crossmatch 12/01/18 12/01/18 12/01/18 20:10 20:15 21:00 WBC RBC Hgb Hct MCV MCH MCHC RDW RDW Differential Plt Count MPV Immature Gran % (Auto) Neut % (Auto) Lymph % (Auto) [place] % (Auto) Eos % (Auto) Baso % (Auto) Absolute Neuts (auto) Absolute Lymphs (auto) Total Counted Differential Comment Immature Plt Fraction Retic Count Immature Retic Fraction Retic Hgb Equivalent PT INR Specimen Type Sample Site pH Bicarbonate Actual POC Total CO2 Base Excess O2 Saturation O2 % ABG pCO2 ABG pO2 Dalton Test Respiration Rate O2 Delivery Device Minute Volume Vent Mode Tidal Volume POC PEEP POC Pressure Suppt Blood Gas Notified Whom Blood Gas Notified Time Sodium 121 L 120 L Potassium 3.9 3.8 Chloride 80 L 81 L Carbon Dioxide 33.0 H 32.0 Anion Gap 8 7 BUN 15 16 Creatinine 0.96 1.01 Estim Creat Clear Calc 64.95 61.74 Est GFR (MDRD) Af Amer 100 95 Est GFR (MDRD) Non-Af 83 78 BUN/Creatinine Ratio 15.6 15.8 Glucose 140 H 130 H Serum Osmolality Calcium 8.2 L 8.4 L Magnesium Iron TIBC Iron Saturation Ferritin Total Creatine Kinase Troponin I Triglycerides Urine Color Urine Clarity Urine pH Ur Specific [place] Urine Protein Urine Glucose (UA) Urine Ketones Urine Occult Blood Urine Nitrite Urine Bilirubin Urine Urobilinogen Ur Leukocyte Esterase Urine RBC Urine WBC Ur Squamous Epith Cells Urine Bacteria Urine Mucus Urine Osmolality Ur Random Sodium POC Glucose Blood Type O NEGATIVE Antibody Screen NEGATIVE Crossmatch See Detail 12/01/18 12/01/18 12/01/18 22:15 22:15 23:15 WBC RBC Hgb 7.8 L Hct 22.2 L MCV MCH MCHC RDW RDW Differential Plt Count MPV Immature Gran % (Auto) Neut % (Auto) Lymph % (Auto) [place] % (Auto) Eos % (Auto) Baso % (Auto) Absolute Neuts (auto) Absolute Lymphs (auto) Total Counted Differential Comment Immature Plt Fraction Retic Count Immature Retic Fraction Retic Hgb Equivalent PT INR Specimen Type Sample Site pH Bicarbonate Actual POC Total CO2 Base Excess O2 Saturation O2 % ABG pCO2 ABG pO2 Dalton Test Respiration Rate O2 Delivery Device Minute Volume Vent Mode Tidal Volume POC PEEP POC Pressure Suppt Blood Gas Notified Whom Blood Gas Notified Time Sodium 121 L 122 L Potassium 3.5 3.2 L Chloride 81 L 83 L Carbon Dioxide 33.0 H 32.0 Anion Gap 7 7 BUN 16 16 Creatinine 0.90 0.88 Estim Creat Clear Calc 69.28 70.86 Est GFR (MDRD) Af Amer 108 111 Est GFR (MDRD) Non-Af 89 91 BUN/Creatinine Ratio 17.8 18.2 Glucose 99 95 Serum Osmolality Calcium 8.4 L 8.4 L Magnesium Iron TIBC Iron Saturation Ferritin Total Creatine Kinase Troponin I Triglycerides Urine Color Urine Clarity Urine pH Ur Specific [place] Urine Protein Urine Glucose (UA) Urine Ketones Urine Occult Blood Urine Nitrite Urine Bilirubin Urine Urobilinogen Ur Leukocyte Esterase Urine RBC Urine WBC Ur Squamous Epith Cells Urine Bacteria Urine Mucus Urine Osmolality Ur Random Sodium POC Glucose Blood Type Antibody Screen Crossmatch 12/02/18 12/02/18 12/02/18 00:15 01:00 02:05 WBC RBC Hgb Hct MCV MCH MCHC RDW RDW Differential Plt Count MPV Immature Gran % (Auto) Neut % (Auto) Lymph % (Auto) [place] % (Auto) Eos % (Auto) Baso % (Auto) Absolute Neuts (auto) Absolute Lymphs (auto) Total Counted Differential Comment Immature Plt Fraction Retic Count Immature Retic Fraction Retic Hgb Equivalent PT INR Specimen Type Sample Site pH Bicarbonate Actual POC Total CO2 Base Excess O2 Saturation O2 % ABG pCO2 ABG pO2 Dalton Test Respiration Rate O2 Delivery Device Minute Volume Vent Mode Tidal Volume POC PEEP POC Pressure Suppt Blood Gas Notified Whom Blood Gas Notified Time Sodium 122 L 125 L 124 L Potassium 3.3 L 3.2 L 3.2 L Chloride 82 L 84 L 83 L Carbon Dioxide 31.0 30.0 31.0 Anion Gap 9 11 10 BUN 17 17 17 Creatinine 0.95 0.91 0.88 Estim Creat Clear Calc 65.64 68.52 70.86 Est GFR (MDRD) Af Amer 102 107 110 Est GFR (MDRD) Non-Af 84 88 91 BUN/Creatinine Ratio 17.9 18.7 19.3 Glucose 97 94 94 Serum Osmolality Calcium 8.1 L 8.0 L 8.0 L Magnesium Iron TIBC Iron Saturation Ferritin Total Creatine Kinase Troponin I Triglycerides Urine Color Urine Clarity Urine pH Ur Specific [place] Urine Protein Urine Glucose (UA) Urine Ketones Urine Occult Blood Urine Nitrite Urine Bilirubin Urine Urobilinogen Ur Leukocyte Esterase Urine RBC Urine WBC Ur Squamous Epith Cells Urine Bacteria Urine Mucus Urine Osmolality Ur Random Sodium POC Glucose Blood Type Antibody Screen Crossmatch 12/02/18 12/02/18 12/02/18 04:00 04:00 04:00 WBC 6.8 RBC 2.20 L Hgb 7.4 L Hct 21.1 L MCV 95.9 H MCH 33.6 H MCHC 35.1 RDW 16.3 H RDW Differential 53.7 H Plt Count 146 L MPV 7.9 Immature Gran % (Auto) 0.400 Neut % (Auto) 79.4 H Lymph % (Auto) 7.3 L [place] % (Auto) 11.6 H Eos % (Auto) 1.0 Baso % (Auto) 0.3 Absolute Neuts (auto) 5.4 Absolute Lymphs (auto) 0.49 L Total Counted Not Reportable Differential Comment SCANNED Immature Plt Fraction Retic Count Immature Retic Fraction Retic Hgb Equivalent PT 17.3 H INR 1.4 Specimen Type Sample Site pH Bicarbonate Actual POC Total CO2 Base Excess O2 Saturation O2 % ABG pCO2 ABG pO2 Dalton Test Respiration Rate O2 Delivery Device Minute Volume Vent Mode Tidal Volume POC PEEP POC Pressure Suppt Blood Gas Notified Whom Blood Gas Notified Time Sodium 125 L Potassium 3.2 L Chloride 83 L Carbon Dioxide 32.0 Anion Gap 10 BUN 17 Creatinine 0.88 Estim Creat Clear Calc 70.86 Est GFR (MDRD) Af Amer 111 Est GFR (MDRD) Non-Af 91 BUN/Creatinine Ratio 19.3 Glucose 89 Serum Osmolality Calcium 8.3 L Magnesium 1.4 L Iron TIBC Iron Saturation Ferritin Total Creatine Kinase Troponin I Triglycerides Urine Color Urine Clarity Urine pH Ur Specific [place] Urine Protein Urine Glucose (UA) Urine Ketones Urine Occult Blood Urine Nitrite Urine Bilirubin Urine Urobilinogen Ur Leukocyte Esterase Urine RBC Urine WBC Ur Squamous Epith Cells Urine Bacteria Urine Mucus Urine Osmolality Ur Random Sodium POC Glucose Blood Type Antibody Screen Crossmatch 12/02/18 12/02/18 12/02/18 08:13 08:30 10:40 WBC RBC Hgb Hct MCV MCH MCHC RDW RDW Differential Plt Count MPV Immature Gran % (Auto) Neut % (Auto) Lymph % (Auto) [place] % (Auto) Eos % (Auto) Baso % (Auto) Absolute Neuts (auto) Absolute Lymphs (auto) Total Counted Differential Comment Immature Plt Fraction Retic Count Immature Retic Fraction Retic Hgb Equivalent PT INR Specimen Type ART Sample Site L Radial pH 7.36 Bicarbonate Actual 29.3 H POC Total CO2 31 Base Excess 4 H O2 Saturation 93 L O2 % 40 ABG pCO2 52.2 H ABG pO2 70 L Dalton Test POS Respiration Rate O2 Delivery Device Vent Minute Volume Vent Mode CPAP PS Tidal Volume POC PEEP 5 POC Pressure Suppt 5 Blood Gas Notified Whom ICU MD Blood Gas Notified Time 812 Sodium 125 L 125 L Potassium 4.5 Chloride 87 L Carbon Dioxide 31.0 Anion Gap 7 BUN 16 Creatinine 0.78 Estim Creat Clear Calc 62.35 Est GFR (MDRD) Af Amer 128 Est GFR (MDRD) Non-Af 106 BUN/Creatinine Ratio 20.6 H Glucose 80 Serum Osmolality Calcium 8.2 L Magnesium Iron TIBC Iron Saturation Ferritin Total Creatine Kinase Troponin I Triglycerides Urine Color Urine Clarity Urine pH Ur Specific [place] Urine Protein Urine Glucose (UA) Urine Ketones Urine Occult Blood Urine Nitrite Urine Bilirubin Urine Urobilinogen Ur Leukocyte Esterase Urine RBC Urine WBC Ur Squamous Epith Cells Urine Bacteria Urine Mucus Urine Osmolality Ur Random Sodium POC Glucose Blood Type Antibody Screen Crossmatch 12/02/18 12/02/18 12/03/18 15:00 20:05 05:00 WBC 7.2 RBC 2.03 L Hgb 6.9 L Hct 20.3 L MCV 100.0 H MCH 34.0 H MCHC 34.0 RDW 16.6 H RDW Differential 57.3 H Plt Count 129 L MPV 7.8 Immature Gran % (Auto) 0.300 Neut % (Auto) 82.4 H Lymph % (Auto) 6.7 L [place] % (Auto) 9.2 Eos % (Auto) 1.3 Baso % (Auto) 0.1 Absolute Neuts (auto) 5.9 Absolute Lymphs (auto) 0.48 L Total Counted Not Reportable Differential Comment SCANNED Immature Plt Fraction Retic Count Immature Retic Fraction Retic Hgb Equivalent PT INR Specimen Type Sample Site pH Bicarbonate Actual POC Total CO2 Base Excess O2 Saturation O2 % ABG pCO2 ABG pO2 Dalton Test Respiration Rate O2 Delivery Device Minute Volume Vent Mode Tidal Volume POC PEEP POC Pressure Suppt Blood Gas Notified Whom Blood Gas Notified Time Sodium 123 L 125 L Potassium 4.1 3.8 Chloride 87 L 88 L Carbon Dioxide 34.0 H 33.0 H Anion Gap 2 L 4 L BUN 13 13 Creatinine 0.78 0.89 Estim Creat Clear Calc 62.35 70.06 Est GFR (MDRD) Af Amer 127 109 Est GFR (MDRD) Non-Af 105 90 BUN/Creatinine Ratio 16.6 14.5 Glucose 145 H 139 H Serum Osmolality Calcium 8.2 L 8.4 L Magnesium Iron TIBC Iron Saturation Ferritin Total Creatine Kinase Troponin I Triglycerides Urine Color Urine Clarity Urine pH Ur Specific [place] Urine Protein Urine Glucose (UA) Urine Ketones Urine Occult Blood Urine Nitrite Urine Bilirubin Urine Urobilinogen Ur Leukocyte Esterase Urine RBC Urine WBC Ur Squamous Epith Cells Urine Bacteria Urine Mucus Urine Osmolality Ur Random Sodium POC Glucose Blood Type Antibody Screen Crossmatch 12/03/18 12/03/18 12/03/18 05:00 05:00 05:00 WBC RBC Hgb Hct MCV MCH MCHC RDW RDW Differential Plt Count MPV Immature Gran % (Auto) Neut % (Auto) Lymph % (Auto) [place] % (Auto) Eos % (Auto) Baso % (Auto) Absolute Neuts (auto) Absolute Lymphs (auto) Total Counted Differential Comment Immature Plt Fraction Retic Count Immature Retic Fraction Retic Hgb Equivalent PT 18.1 H INR 1.5 Specimen Type Sample Site pH Bicarbonate Actual POC Total CO2 Base Excess O2 Saturation O2 % ABG pCO2 ABG pO2 Dalton Test Respiration Rate O2 Delivery Device Minute Volume Vent Mode Tidal Volume POC PEEP POC Pressure Suppt Blood Gas Notified Whom Blood Gas Notified Time Sodium 130 L Potassium 3.7 Chloride 90 L Carbon Dioxide 35.0 H Anion Gap 5 BUN 11 Creatinine 0.73 Estim Creat Clear Calc 62.35 Est GFR (MDRD) Af Amer 138 Est GFR (MDRD) Non-Af 114 BUN/Creatinine Ratio 15.1 Glucose 98 Serum Osmolality Calcium 8.4 L Magnesium Pending Iron TIBC Iron Saturation Ferritin Total Creatine Kinase Troponin I Triglycerides Urine Color Urine Clarity Urine pH Ur Specific [place] Urine Protein Urine Glucose (UA) Urine Ketones Urine Occult Blood Urine Nitrite Urine Bilirubin Urine Urobilinogen Ur Leukocyte Esterase Urine RBC Urine WBC Ur Squamous Epith Cells Urine Bacteria Urine Mucus Urine Osmolality Ur Random Sodium POC Glucose Blood Type Antibody Screen Crossmatch Medical Necessity - Tobacco Use Smoking Status: Former smoker Tobacco Use: Non-smoker Assessment/Plan All Active Problems (Last Reviewed 11/29/18 @ 06:25 by Radha Payan) Lung cancer (Acute) Anemia (Acute) Skin tear of left forearm without complication (Acute) Skin tear of right forearm without complication (Acute) Lesion of pelvic bone (Acute) Cancer of upper lobe of left lung (Acute) Pneumothorax after biopsy (Acute) Shortness of breath (Acute) Left ventricular thrombus (Acute) Laceration of right elbow without complication (Acute) Abrasion of skin (Acute) Hx of colonoscopy (Resolved) Diverticula of colon (Acute) SOB (shortness of breath) (Acute) Acute respiratory failure with hypoxia (Resolved) Acute on chronic respiratory failure with hypoxia (Resolved) COPD with acute exacerbation (Resolved) CAP (community acquired pneumonia) (Resolved) Chronic respiratory failure with hypoxia and hypercapnia (Resolved) RECOMMENDATIONS: 1. Seizure precautions 2. Sodium repletion per nephrology 3. Supplemental oxygen to keep saturations greater than 90% 4. Consider reinitiation of Lasix therapy 5. Continue nocturnal AVAPS 6. Consider transfusion of PRBCs given cardiac history 7. Okay to leave the intensive care unit from my perspective IMPRESSIONS: 1. New onset seizure secondary to metabolic encephalopathy secondary to severe hyponatremia Medical suspicion for paraneoplastic syndrome of SIADH. Nephrology has been consulted and is following. Patient's sodium has improved and patient is tolerating this well. No focal neurologic deficits are appreciated at this time. Will defer to nephrology for improvement of sodium levels. Patient should be on a fluid restriction. 2. Acute on chronic hypoxic respiratory failure secondary to seizure/advanced COPD Patient with acute hypoxia following seizure activity. Patient does have advanced COPD with an FEV1 of 31%, which complicates overall condition. Patient does not appear to have any aspiration on chest x-ray. Patient does not have significant wheezing suggesting concomitant obstructive lung disease exacerbation. Patient will continue on bronchodilators. Patient may benefit from reinitiation of baseline Lasix therapy 3. Non-small cell lung cancer Patient currently acting like paraneoplastic SIADH. Unclear if patient would respond well to tolvaptan prophylaxis. Would defer to oncology/nephrology. No pneumothorax is appreciated on current chest imaging. 4. Chronic systolic congestive heart failure with history of LV thrombus Consider reinitiation of Lasix. On anticoagulation given LV thrombus history.. Does not appear to be in acute exacerbation of CHF at this time. Code Visit Inpatient E&M: 09172 Subs Hosp L3
[2018-12-03] MEDS: Levothyroxine 100 MCG Tablet PO (08:10)
--- NOTE | 2018-12-03 09:08 | PCM.PN.HOSP ---
Patient Problems: Active and Suspected Problems (Last Reviewed 11/29/18 @ 06:25 by Radha Payan) Lung cancer (Acute) Anemia (Acute) Subjective: Extubated. On BiPAP. Wants some underwear. Vitals/I&O's: Vital Signs Temp Pulse Resp BP Pulse Ox 36.6 C 80 15 120/95 H 94 12/03/18 04:00 12/03/18 07:00 12/03/18 07:00 12/03/18 07:00 12/03/18 07:00 Oxygen Flow Rate (L/min) 6 Oxygen Delivery Method Bi-pap Weight: 71.5 kg Body Mass Index (BMI) 26.6 Finger Stick Blood Glucose 126 Intake and Output for Last 24 Hours 12/01/18 12/02/18 12/03/18 23:59 23:59 23:59 Intake Total 1024 / 1024 532 / 532 Output Total 1600 / 1600 750 / 750 Balance -576 / -576 -218 / -218 General: Alert, No apparent distress HEENT: Atraumatic, Normocephalic Oral: Moist Mucosa, No Gingival or Mucosal Lesions/ Ulcerations Neck: No Nodes, Thyroid Normal Size and Texture Lungs: Diminished, - - coarse breath sounds bilaterally Cardiovascular: Regular rate, Regular Rhythm, Normal S1, Normal S2, No murmurs Abdomen: Bowel Sounds Present, Soft, Non Tender, Non-Distended, No Hepato-splenomegaly Extremities: No edema, No Calf Tenderness Skin: No rashes, No breakdown Musculoskeletal: No Tenderness to Palpation of Joints or Extremities, No Muscle Wasting Psych/Mental Status: Normal Affect, Appropriate Laboratory Results 12/02/18 10:40: Sodium 125 L 12/02/18 15:00: Sodium 123 L, Potassium 4.1, Chloride 87 L, Carbon Dioxide 34.0 H, Anion Gap 2 L, BUN 13, Creatinine 0.78, Estim Creat Clear Calc 62.35, Est GFR (MDRD) Af Amer 127, Est GFR (MDRD) Non-Af 105, BUN/Creatinine Ratio 16.6, Glucose 145 H, Calcium 8.2 L 12/02/18 20:05: Sodium 125 L, Potassium 3.8, Chloride 88 L, Carbon Dioxide 33.0 H, Anion Gap 4 L, BUN 13, Creatinine 0.89, Estim Creat Clear Calc 70.06, Est GFR (MDRD) Af Amer 109, Est GFR (MDRD) Non-Af 90, BUN/Creatinine Ratio 14.5, Glucose 139 H, Calcium 8.4 L 12/03/18 05:00: WBC 7.2, RBC 2.03 L, Hgb 6.9 L, Hct 20.3 L, MCV 100.0 H, MCH 34.0 H, MCHC 34.0, RDW 16.6 H, RDW Differential 57.3 H, Plt Count 129 L, MPV 7.8, Immature Gran % (Auto) 0.300, Neut % (Auto) 82.4 H, Lymph % (Auto) 6.7 L, [place] % (Auto) 9.2, Eos % (Auto) 1.3, Baso % (Auto) 0.1, Absolute Neuts (auto) 5.9, Absolute Lymphs (auto) 0.48 L, Total Counted Not Reportable, Differential Comment SCANNED 12/03/18 05:00: Sodium 130 L, Potassium 3.7, Chloride 90 L, Carbon Dioxide 35.0 H, Anion Gap 5, BUN 11, Creatinine 0.73, Estim Creat Clear Calc 62.35, Est GFR (MDRD) Af Amer 138, Est GFR (MDRD) Non-Af 114, BUN/Creatinine Ratio 15.1, Glucose 98, Calcium 8.4 L 12/03/18 05:00: PT 18.1 H, INR 1.5 12/03/18 05:00: Magnesium 2.0 Current Medications Albuterol Sulfate (Ventolin Aerosols) 2.5 mg INHALATION Q2H PRN PRN PRN Reason: SOB &/OR WHEEZING Albuterol/Ipratropium (Duoneb) 3 ml INHALATION Q6HWA.RT [facility] Last Admin: 12/03/18 05:43 Dose: 3 ml Aspirin (Aspirin, Baby) 81 mg PO QODAY@0800 [facility] Atorvastatin Calcium (Lipitor) 40 mg PO QHS [facility] Last Admin: 12/02/18 21:33 Dose: 40 mg Budesonide (Pulmicort Aerosol) 0.5 mg INHALATION BID.RT [facility] Last Admin: 12/03/18 06:41 Dose: 0.5 mg Carvedilol (Coreg) 6.25 mg PO BIDCM [facility] Last Admin: 12/02/18 17:41 Dose: 6.25 mg Chlorhexidine Gluconate () 1 each TOPICAL DAILY [facility] Last Admin: 12/02/18 12:35 Dose: 1 each Enoxaparin Sodium (Lovenox) 70 mg SC Q12@0600,1800 [facility] Last Admin: 12/03/18 06:46 Dose: 70 mg Furosemide (Lasix) 80 mg PO DAILY [facility] Furosemide (Lasix) 40 mg PO 1800 [facility] Last Admin: 12/02/18 16:15 Dose: 40 mg Sodium Chloride () 250 mls @ 15 mls/hr IV .[id number] PRN PRN Reason: SALINE FLUSH Last Admin: 12/01/18 22:41 Dose: 15 mls/hr Ampicillin Sodium/Sulbactam (Sodium 3 gm/ Sodium Chloride) 112 mls @ 150 mls/hr IV Q6 [facility] Last Admin: 12/03/18 06:45 Dose: 150 mls/hr Levothyroxine Sodium (Synthroid) 100 mcg PO DAILY@0600 [facility] Last Admin: 12/03/18 08:10 Dose: 100 mcg Losartan Potassium (Cozaar) 25 mg PO DAILY [facility] Magnesium Oxide (Mag-Ox 400) 400 mg PO BIDCM [facility] Last Admin: 12/02/18 16:15 Dose: 400 mg Multivitamins (Multivitamin) [facility] Ondansetron HCl (Zofran) 4 mg IV Q8H PRN PRN PRN Reason: NAUSEA Pantoprazole Sodium (Protonix) 40 mg PO BID [facility] Last Admin: 12/02/18 21:33 Dose: 40 mg Sodium Chloride () 10 - 40 ml IV UD PRN PRN Reason: SALINE FLUSH Last Admin: 12/02/18 06:42 Dose: 40 ml Warfarin Sodium (Coumadin (Pbkc)) 7.5 mg PO MoTuWeThFr@1700 [facility] Last Admin: 12/02/18 16:16 Dose: 7.5 mg Warfarin Sodium (Coumadin (Pbkc)) 5 mg PO SuSa@1700 [facility] Medical Necessity - Tobacco Use Smoking Status: Former smoker Tobacco Use: Non-smoker Assessment/Plan All Active Problems (Last Reviewed 11/29/18 @ 06:25 by Radha Payan) Lung cancer (Acute) Anemia (Acute) Skin tear of left forearm without complication (Acute) Skin tear of right forearm without complication (Acute) Lesion of pelvic bone (Acute) Cancer of upper lobe of left lung (Acute) Pneumothorax after biopsy (Acute) Shortness of breath (Acute) Left ventricular thrombus (Acute) Laceration of right elbow without complication (Acute) Abrasion of skin (Acute) Hx of colonoscopy (Resolved) Diverticula of colon (Acute) SOB (shortness of breath) (Acute) Acute respiratory failure with hypoxia (Resolved) Acute on chronic respiratory failure with hypoxia (Resolved) COPD with acute exacerbation (Resolved) CAP (community acquired pneumonia) (Resolved) Chronic respiratory failure with hypoxia and hypercapnia (Resolved) 1. acute hypercapnic respiratory failure no documented hypoxia, though pt was satting 91% with an ambubag may have be due post-ictal period + COPD + aspiration resolved extubated, but required BiPAP rescue 2. Acute seizure: may have been d/t hyponatremia need to further evaluate: EEG. cannot do MRI d/t ICD 3. Aspiration pneumonia Unasyn pulm toilet 4. Hyponatremia overall, improved off hypertonic saline nephrology following. 5. NSCLC follow up with oncology 6. pAfib stable. anticoagulated. 7. VTE prophylaxis: anticoagulated. Code Visit Inpatient E&M: 19848 Subs Hosp L2
--- NOTE | 2018-12-03 09:12 | PCM.PN.REN ---
Patient Problems: Active and Suspected Problems (Last Reviewed 11/29/18 @ 06:25 by Radha Payan) Lung cancer (Acute) Anemia (Acute) Subjective: no sob cp - Physical Exam General: Alert, Oriented x3, Cooperative HEENT: Atraumatic, PERRLA, EOMI, Normocephalic Neck: Supple, No JVD, Negative Carotid Bruits Lungs: Clear to auscultation, Normal air movement Cardiovascular: Regular rate, No murmurs Abdomen: Bowel Sounds Present, Soft, Non Tender Extremities: No edema, Capillary Refill Less than 3 Seconds Skin: No rashes, No breakdown Musculoskeletal: No Tenderness to Palpation of Joints or Extremities Neurological: Cranial nerves II-XII grossly intact Psych/Mental Status: Normal Affect, Appropriate Vital Signs Temp Pulse Resp BP Pulse Ox 97.8 F 80 15 120/95 H 94 12/03/18 04:00 12/03/18 07:00 12/03/18 07:00 12/03/18 07:00 12/03/18 07:00 Oxygen Flow Rate (L/min) 6 Oxygen Delivery Method Bi-pap Weight: 71.5 kg Body Mass Index (BMI) 26.6 Finger Stick Blood Glucose 126 Intake and Output for Last 24 Hours 12/01/18 12/02/18 12/03/18 23:59 23:59 23:59 Intake Total 1024 / 1024 532 / 532 Output Total 1600 / 1600 750 / 750 Balance -576 / -576 -218 / -218 Laboratory Tests Past 24 Hrs 12/02/18 12/02/18 12/02/18 10:40 15:00 20:05 WBC RBC Hgb Hct MCV MCH MCHC RDW RDW Differential Plt Count MPV Immature Gran % (Auto) Neut % (Auto) Lymph % (Auto) [place] % (Auto) Eos % (Auto) Baso % (Auto) Absolute Neuts (auto) Absolute Lymphs (auto) Total Counted Differential Comment PT INR Sodium 125 L 123 L 125 L Potassium 4.1 3.8 Chloride 87 L 88 L Carbon Dioxide 34.0 H 33.0 H Anion Gap 2 L 4 L BUN 13 13 Creatinine 0.78 0.89 Estim Creat Clear Calc 62.35 70.06 Est GFR (MDRD) Af Amer 127 109 Est GFR (MDRD) Non-Af 105 90 BUN/Creatinine Ratio 16.6 14.5 Glucose 145 H 139 H Calcium 8.2 L 8.4 L Magnesium 12/03/18 12/03/18 12/03/18 05:00 05:00 05:00 WBC 7.2 RBC 2.03 L Hgb 6.9 L Hct 20.3 L MCV 100.0 H MCH 34.0 H MCHC 34.0 RDW 16.6 H RDW Differential 57.3 H Plt Count 129 L MPV 7.8 Immature Gran % (Auto) 0.300 Neut % (Auto) 82.4 H Lymph % (Auto) 6.7 L [place] % (Auto) 9.2 Eos % (Auto) 1.3 Baso % (Auto) 0.1 Absolute Neuts (auto) 5.9 Absolute Lymphs (auto) 0.48 L Total Counted Not Reportable Differential Comment SCANNED PT 18.1 H INR 1.5 Sodium 130 L Potassium 3.7 Chloride 90 L Carbon Dioxide 35.0 H Anion Gap 5 BUN 11 Creatinine 0.73 Estim Creat Clear Calc 62.35 Est GFR (MDRD) Af Amer 138 Est GFR (MDRD) Non-Af 114 BUN/Creatinine Ratio 15.1 Glucose 98 Calcium 8.4 L Magnesium 12/03/18 05:00 WBC RBC Hgb Hct MCV MCH MCHC RDW RDW Differential Plt Count MPV Immature Gran % (Auto) Neut % (Auto) Lymph % (Auto) [place] % (Auto) Eos % (Auto) Baso % (Auto) Absolute Neuts (auto) Absolute Lymphs (auto) Total Counted Differential Comment PT INR Sodium Potassium Chloride Carbon Dioxide Anion Gap BUN Creatinine Estim Creat Clear Calc Est GFR (MDRD) Af Amer Est GFR (MDRD) Non-Af BUN/Creatinine Ratio Glucose Calcium Magnesium 2.0 Medical Necessity - Tobacco Use Smoking Status: Former smoker Tobacco Use: Non-smoker Assessment/Plan All Active Problems (Last Reviewed 11/29/18 @ 06:25 by Radha Payan) Lung cancer (Acute) Anemia (Acute) Skin tear of left forearm without complication (Acute) Skin tear of right forearm without complication (Acute) Lesion of pelvic bone (Acute) Cancer of upper lobe of left lung (Acute) Pneumothorax after biopsy (Acute) Shortness of breath (Acute) Left ventricular thrombus (Acute) Laceration of right elbow without complication (Acute) Abrasion of skin (Acute) Hx of colonoscopy (Resolved) Diverticula of colon (Acute) SOB (shortness of breath) (Acute) Acute respiratory failure with hypoxia (Resolved) Acute on chronic respiratory failure with hypoxia (Resolved) COPD with acute exacerbation (Resolved) CAP (community acquired pneumonia) (Resolved) Chronic respiratory failure with hypoxia and hypercapnia (Resolved) Hyponatremia Heart failure overcorrection over first 24 hours avoided had to relower SNa yesterday continue fluid restriction and Lasix. seems to be euvolemic clinically bp ok Discussed with patient and RN
--- NOTE | 2018-12-03 09:13 | PN_ITS ---
Patient Problems: Active and Suspected Problems (Last Reviewed 11/29/18 @ 06:25 by Radha Payan) Lung cancer (Acute) Anemia (Acute) Subjective: Extubated. On BiPAP. Wants some underwear. Vitals/I&O's: Vital Signs Temp Pulse Resp BP Pulse Ox 36.6 C 80 15 120/95 H 94 12/03/18 04:00 12/03/18 07:00 12/03/18 07:00 12/03/18 07:00 12/03/18 07:00 Oxygen Flow Rate (L/min) 6 Oxygen Delivery Method Bi-pap Weight: 71.5 kg Body Mass Index (BMI) 26.6 Finger Stick Blood Glucose 126 Intake and Output for Last 24 Hours 12/01/18 12/02/18 12/03/18 23:59 23:59 23:59 Intake Total 1024 / 1024 532 / 532 Output Total 1600 / 1600 750 / 750 Balance -576 / -576 -218 / -218 General: Alert, No apparent distress HEENT: Atraumatic, Normocephalic Oral: Moist Mucosa, No Gingival or Mucosal Lesions/ Ulcerations Neck: No Nodes, Thyroid Normal Size and Texture Lungs: Diminished, - - coarse breath sounds bilaterally Cardiovascular: Regular rate, Regular Rhythm, Normal S1, Normal S2, No murmurs Abdomen: Bowel Sounds Present, Soft, Non Tender, Non-Distended, No Hepato- splenomegaly Extremities: No edema, No Calf Tenderness Skin: No rashes, No breakdown Musculoskeletal: No Tenderness to Palpation of Joints or Extremities, No Muscle Wasting Psych/Mental Status: Normal Affect, Appropriate Laboratory Results 12/02/18 10:40: Sodium 125 L 12/02/18 15:00: Sodium 123 L, Potassium 4.1, Chloride 87 L, Carbon Dioxide 34.0 H, Anion Gap 2 L, BUN 13, Creatinine 0.78, Estim Creat Clear Calc 62.35, Est GFR (MDRD) Af Amer 127, Est GFR (MDRD) Non-Af 105, BUN/Creatinine Ratio 16.6, Glucose 145 H, Calcium 8.2 L 12/02/18 20:05: Sodium 125 L, Potassium 3.8, Chloride 88 L, Carbon Dioxide 33.0 H, Anion Gap 4 L, BUN 13, Creatinine 0.89, Estim Creat Clear Calc 70.06, Est GFR (MDRD) Af Amer 109, Est GFR (MDRD) Non-Af 90, BUN/Creatinine Ratio 14.5, Glucose 139 H, Calcium 8.4 L 12/03/18 05:00: WBC 7.2, RBC 2.03 L, Hgb 6.9 L, Hct 20.3 L, MCV 100.0 H, MCH 34.0 H, MCHC 34.0, RDW 16.6 H, RDW Differential 57.3 H, Plt Count 129 L, MPV 7.8, Immature Gran % (Auto) 0.300, Neut % (Auto) 82.4 H, Lymph % (Auto) 6.7 L, [place] % (Auto) 9.2, Eos % (Auto) 1.3, Baso % (Auto) 0.1, Absolute Neuts (auto) 5.9, Absolute Lymphs (auto) 0.48 L, Total Counted Not Reportable, Differential Comment SCANNED 12/03/18 05:00: Sodium 130 L, Potassium 3.7, Chloride 90 L, Carbon Dioxide 35.0 H, Anion Gap 5, BUN 11, Creatinine 0.73, Estim Creat Clear Calc 62.35, Est GFR (MDRD) Af Amer 138, Est GFR (MDRD) Non-Af 114, BUN/Creatinine Ratio 15.1, Glucose 98, Calcium 8.4 L 12/03/18 05:00: PT 18.1 H, INR 1.5 12/03/18 05:00: Magnesium 2.0 Current Medications Albuterol Sulfate (Ventolin Aerosols) 2.5 mg INHALATION Q2H PRN PRN PRN Reason: SOB &/OR WHEEZING Albuterol/Ipratropium (Duoneb) 3 ml INHALATION Q6HWA.RT [facility] Last Admin: 12/03/18 05:43 Dose: 3 ml Aspirin (Aspirin, Baby) 81 mg PO QODAY@0800 [facility] Atorvastatin Calcium (Lipitor) 40 mg PO QHS [facility] Last Admin: 12/02/18 21:33 Dose: 40 mg Budesonide (Pulmicort Aerosol) 0.5 mg INHALATION BID.RT [facility] Last Admin: 12/03/18 06:41 Dose: 0.5 mg Carvedilol (Coreg) 6.25 mg PO BIDCM [facility] Last Admin: 12/02/18 17:41 Dose: 6.25 mg Chlorhexidine Gluconate () 1 each TOPICAL DAILY [facility] Last Admin: 12/02/18 12:35 Dose: 1 each Enoxaparin Sodium (Lovenox) 70 mg SC Q12@0600,1800 [facility] Last Admin: 12/03/18 06:46 Dose: 70 mg Furosemide (Lasix) 80 mg PO DAILY [facility] Furosemide (Lasix) 40 mg PO 1800 [facility] Last Admin: 12/02/18 16:15 Dose: 40 mg Sodium Chloride () 250 mls @ 15 mls/hr IV .[id number] PRN PRN Reason: SALINE FLUSH Last Admin: 12/01/18 22:41 Dose: 15 mls/hr Ampicillin Sodium/Sulbactam (Sodium 3 gm/ Sodium Chloride) 112 mls @ 150 mls/hr IV Q6 [facility] Last Admin: 12/03/18 06:45 Dose: 150 mls/hr Levothyroxine Sodium (Synthroid) 100 mcg PO DAILY@0600 [facility] Last Admin: 12/03/18 08:10 Dose: 100 mcg Losartan Potassium (Cozaar) 25 mg PO DAILY [facility] Magnesium Oxide (Mag-Ox 400) 400 mg PO BIDCM [facility] Last Admin: 12/02/18 16:15 Dose: 400 mg Multivitamins (Multivitamin) [facility] Ondansetron HCl (Zofran) 4 mg IV Q8H PRN PRN PRN Reason: NAUSEA Pantoprazole Sodium (Protonix) 40 mg PO BID [facility] Last Admin: 12/02/18 21:33 Dose: 40 mg Sodium Chloride () 10 - 40 ml IV UD PRN PRN Reason: SALINE FLUSH Last Admin: 12/02/18 06:42 Dose: 40 ml Warfarin Sodium (Coumadin (Pbkc)) 7.5 mg PO MoTuWeThFr@1700 [facility] Last Admin: 12/02/18 16:16 Dose: 7.5 mg Warfarin Sodium (Coumadin (Pbkc)) 5 mg PO SuSa@1700 [facility] Medical Necessity - Tobacco Use Smoking Status: Former smoker Tobacco Use: Non-smoker Assessment/Plan All Active Problems (Last Reviewed 11/29/18 @ 06:25 by Radha Payan) Lung cancer (Acute) Anemia (Acute) Skin tear of left forearm without complication (Acute) Skin tear of right forearm without complication (Acute) Lesion of pelvic bone (Acute) Cancer of upper lobe of left lung (Acute) Pneumothorax after biopsy (Acute) Shortness of breath (Acute) Left ventricular thrombus (Acute) Laceration of right elbow without complication (Acute) Abrasion of skin (Acute) Hx of colonoscopy (Resolved) Diverticula of colon (Acute) SOB (shortness of breath) (Acute) Acute respiratory failure with hypoxia (Resolved) Acute on chronic respiratory failure with hypoxia (Resolved) COPD with acute exacerbation (Resolved) CAP (community acquired pneumonia) (Resolved) Chronic respiratory failure with hypoxia and hypercapnia (Resolved) 1. acute hypercapnic respiratory failure * no documented hypoxia, though pt was satting 91% with an ambubag * may have be due post-ictal period + COPD + aspiration * resolved * extubated, but required BiPAP rescue 2. Acute seizure: * may have been d/t hyponatremia * need to further evaluate: EEG. cannot do MRI d/t ICD 3. Aspiration pneumonia * Unasyn * pulm toilet 4. Hyponatremia * overall, improved * off hypertonic saline * nephrology following. 5. NSCLC * follow up with oncology 6. pAfib * stable. anticoagulated. 7. VTE prophylaxis: anticoagulated. Code Visit Inpatient E&M: 29836 Subs Hosp L2
[2018-12-03] MEDS: CHLORHEXIDINE GLUC 2% CLOTH 1 EACH TOWELETTE TOPICAL (10:17)
[2018-12-03] MEDS: Pantoprazole Sodium 40 MG Tablet PO ×2 (10:17→21:00)
[2018-12-03] MEDS: Magnesium Oxide 400 MG Tablet PO ×2 (10:18→16:37)
[2018-12-03] MEDS: Losartan Potassium 25 MG Tablet PO (10:18)
[2018-12-03] MEDS: Multivitamins,Therapeutic Tablet 1 TABLET PO (10:18)
[2018-12-03] MEDS: Carvedilol 6.25 MG Tablet PO ×2 (10:18→16:36)
--- NOTE | 2018-12-03 12:18 | EEG ---
- Electroencephalogram This is an 18 channel electroencephalogram performed on this 87-year-old male with a history of hyponatremia. 18 channel electroencephalogram was performed utilizing the International 10-20 electrode placement protocol as well as hyperventilation, photic stimulation and EKG reference leads. There is movement artifact throughout the recording which obscures a large portion of the recording however the does not appear to be any underlying abnormalities. Background activity is 8 to 10 Hz symmetrically in the posterior leads. Hyperventilation is only performed for 1 minute, and there is no lateralizing or epileptiform changes. Patient remained awake throughout the recording. EKG is normal sinus rhythm throughout the recording. Foot examination generates a normal symmetric driving response the posterior leads. Impression: Limited recording due to movement artifact throughout the recording however the underlying electroencephalogram appears to be normal.
--- NOTE | 2018-12-03 12:21 | EEG_ITS ---
- Electroencephalogram This is an 18 channel electroencephalogram performed on this 87-year-old male with a history of hyponatremia. 18 channel electroencephalogram was performed utilizing the International 10-20 electrode placement protocol as well as hyperventilation, photic stimulation and EKG reference leads. There is movement artifact throughout the recording which obscures a large portion of the recording however the does not appear to be any underlying abnormalities. Background activity is 8 to 10 Hz symmetrically in the posterior leads. Hyperv entilation is only performed for 1 minute, and there is no lateralizing or epileptiform changes. Patient remained awake throughout the recording. EKG is normal sinus rhythm throughout the recording. Foot examination generates a normal symmetric driving response the posterior leads. Impression: Limited recording due to movement artifact throughout the recording however the underlying electroencephalogram appears to be normal.
[2018-12-03] MEDS: Furosemide 80 MG Tablet PO (13:01)
--- NOTE | 2018-12-03 14:00 | NURSING ---
PICC again bleeding at insertion site. disc w/Dr. Rodríguez. area cleansed w/chloroprep, new statlock applied, surgicel and CHG drsg applied, covered w/gauze and pressure drsg per elastoplast applied.
--- NOTE | 2018-12-03 15:07 | CASEMGMT ---
Social work: Met with patient in room. Discussed patient alcohol use. Patient states that he has been weaning himself off of the amount of alcohol he drinks over the last few months. Patient was drinking 8-10 beers a day but now he states that he now only drinks 3-4 beers a day. Patient states that he has been drinking for many years but started drinking more when he retired in 2017. Patient states that he gets bored and this is why he drinks. 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 Patient appears to hold much value in his past his career and appears to be having a difficult time with care home. Patient states that he tries to work out every day to keep busy. This SW attempted to talk to patient about resources for alcohol recovery but patient states I have the drinking under control. spent This SW provided patient with written literature on recovery resources in [facility] and encouraged patient to ask for SW if any questions arise. Will follow to assist as needed with resources and emotional support. PLAN: Patient to return home with at D/C. MAK Metzger
--- NOTE | 2018-12-03 16:02 | NURSING ---
report called to CARDIOPULMONARY PHYSICAL THERAPIST, to 128 per WC, ICU staff in attendance
[2018-12-03] MEDS: Furosemide 40 MG Tablet PO (16:37)
[2018-12-03] MEDS: Atorvastatin Calcium 40 MG Tablet PO (21:01)
[2018-12-04] VITALS (20 sets, daily range): BP systolic 109–169; BP diastolic 46–70; PULSE 65–91; RESP 12–20; TEMP 36.6–37.3; O2SAT 91–98
[2018-12-04] MEDS: 0.9% Saline Lock 10 ML Syringe IV ×4 (05:22→23:34)
[2018-12-04] MEDS: Enoxaparin 80 MG/0.8 ML Syringe 70 MG SC ×2 (05:48→17:46)
[2018-12-04] MEDS: Levothyroxine 100 MCG Tablet PO (05:48)
[2018-12-04 05:51] LABS: Absolute Lymphocyte Count 0.45 X10^3/ul (0.83-4.51); Basophil# 0.01 X10^3/uL; Basophil% 0.2 % (0-1); Eosinophil# 0.09 X10^3/uL; Eosinophils% 1.8 % (0-5); Hematocrit 19.7 % (40-54); Hemoglobin 6.5 g/dl (13.0-16.5); Lymphocyte # 0.45 X10^3/ul (4.0); Mean Corpuscular Hgb 33.5 pg (27.0-32.0); Mean Corpuscular Volume 101.5 fL (80-94); Mean Platelet Vol. 8.3 fl (6.2-12.0); Neutrophil # 3.96 X10^3/uL (2.7-7.7); Neutrophil % 78.8 % (47-70); Platelet Count 107 K/mm3 (150-450); RBC Distribution Width CV 16.5 % (11.6-14.6); RBC Distribution Width SD 58.3 fl (35.1-43.9); Red Blood Count 1.94 M/mm3 (4.6-6.2)
[2018-12-04 06:00] LABS: Differential Indicated SCAN CRITERIA MET; POSITIVE COUNT NO; POSITIVE DIFFERENTIAL YES; POSITIVE MORPHOLOGY NO
[2018-12-04 06:02] LABS: Differential Comment SCANNED
[2018-12-04 06:12] LABS: Anion Gap 5 (5-15); BUN 14 mg/dL (7-18); BUN/Creat Ratio 15.1 RATIO (10-20); Calcium,Total 8.7 mg/dL (8.5-10.1); Chloride 92 mmol/L (98-107); Creatinine, Serum 0.93 mg/dL (0.70-1.30); EST Glomerular Filtration Rate 86 mL/min (>60); Est Glom Filt Rate - Afr Amer 104 mL/min (>60); Estimated Creatinine Clearance 67.05 ml/min; Glucose 108 mg/dL (74-106); Potassium 3.3 mmol/L (3.5-5.1); Sodium Level 136 mmol/L (136-145)
[2018-12-04] MEDS: Ipratropium/Albuterol Sulfate 3 ML AMPUL.NEB INHALATION ×3 (07:29→19:28)
[2018-12-04] MEDS: Aspirin 81 MG TAB.CHEW PO (08:16)
[2018-12-04] MEDS: Carvedilol 6.25 MG Tablet PO ×2 (08:16→17:46)
[2018-12-04] MEDS: Magnesium Oxide 400 MG Tablet PO ×2 (08:17→17:46)
[2018-12-04] MEDS: Multivitamins,Therapeutic Tablet 1 TABLET PO (08:17)
[2018-12-04] MEDS: Pantoprazole Sodium 40 MG Tablet PO ×2 (10:04→19:56)
[2018-12-04] MEDS: Furosemide 80 MG Tablet PO (10:04)
[2018-12-04] MEDS: Losartan Potassium 25 MG Tablet PO (10:04)
--- NOTE | 2018-12-04 10:25 | PCM.PN.PUL ---
Patient Problems: Active and Suspected Problems (Last Reviewed 11/29/18 @ 06:25 by Radha Payan) Lung cancer (Acute) Anemia (Acute) Subjective: Patient did okay overnight. Patient was able to be sitting in the chair on my evaluation and was reporting worsening shortness of breath compared to previous. Patient denied any obvious bleeding. Patient continues to have a cough that is intermittently productive, but always moist. Patient has been on his 4 L nasal cannula. Patient is not using Acapella at baseline. - Physical Exam General: Alert, Oriented x3, Cooperative, - - Conversational dyspnea. Appears older than stated age. HEENT: Atraumatic, PERRLA, EOMI, Normocephalic, - - Alopecia. Oral: Moist Mucosa, No Gingival or Mucosal Lesions/ Ulcerations Neck: Supple, No JVD, No Nodes, Trachea Midline Lungs: No rhonchi, No rales, Diminished, Wheezes, - - Symmetric expansion. Cardiovascular: Regular rate, Regular Rhythm, Normal S1, Normal S2, No murmurs, No rub noted, No Gallop Abdomen: Bowel Sounds Present, Soft, Non Tender, Non-Distended Extremities: No cyanosis, Clubbing, Edema Skin: - - Multiple comedones of the back Musculoskeletal: No Tenderness to Palpation of Joints or Extremities Lymphatic: No Cervical, Supraclavicular, or Inguinal Adenopathy Neurological: Cranial nerves II-XII grossly intact, Neuro grossly intact, Motor Exam 5/5 strength throughout Psych/Mental Status: Alert and oriented to time, place, person, mood and affect Vital Signs Temp Pulse Resp BP Pulse Ox 37.3 C H 76 16 109/46 L 97 12/04/18 09:13 12/04/18 09:13 12/04/18 09:13 12/04/18 09:13 12/04/18 09:13 Oxygen Flow Rate (L/min) 4 Oxygen Delivery Method Nasal Cannula Weight: 70.7 kg Body Mass Index (BMI) 26.6 Finger Stick Blood Glucose 126 Intake and Output for Last 24 Hours 12/02/18 12/03/18 12/04/18 23:59 23:59 23:59 Intake Total 1024 / 1024 1080 / 1080 0 / 0 Output Total 1600 / 1600 1890 / 1890 225 / 225 Balance -576 / -576 -810 / -810 -225 / -225 Microbiology Past 72 Hours 04/19/19 08:00 Gram Stain - Final Cyst - Shoulder Wound Culture - Preliminary Gram positive organism Laboratory Tests Past 24 Hrs 12/01/18 12/04/18 12/04/18 20:15 05:20 05:20 WBC 5.0 RBC 1.94 L Hgb 6.5 L Hct 19.7 L MCV 101.5 H MCH 33.5 H MCHC 33.0 RDW 16.5 H RDW Differential 58.3 H Plt Count 107 L MPV 8.3 Immature Gran % (Auto) 0.200 Neut % (Auto) 78.8 H Lymph % (Auto) 9.0 L [place] % (Auto) 10.0 Eos % (Auto) 1.8 Baso % (Auto) 0.2 Absolute Neuts (auto) 4.0 Absolute Lymphs (auto) 0.45 L Total Counted Not Reportable Differential Comment SCANNED Sodium 136 Potassium 3.3 L Chloride 92 L Carbon Dioxide 39.0 H Anion Gap 5 BUN 14 Creatinine 0.93 Estim Creat Clear Calc 67.05 Est GFR (MDRD) Af Amer 104 Est GFR (MDRD) Non-Af 86 BUN/Creatinine Ratio 15.1 Glucose 108 H Calcium 8.7 Blood Type O NEGATIVE Antibody Screen NEGATIVE Crossmatch See Detail Medical Necessity - Tobacco Use Smoking Status: Former smoker Tobacco Use: Non-smoker Assessment/Plan All Active Problems (Last Reviewed 11/29/18 @ 06:25 by Radha Payan) Lung cancer (Acute) Anemia (Acute) Skin tear of left forearm without complication (Acute) Skin tear of right forearm without complication (Acute) Lesion of pelvic bone (Acute) Cancer of upper lobe of left lung (Acute) Pneumothorax after biopsy (Acute) Shortness of breath (Acute) Left ventricular thrombus (Acute) Laceration of right elbow without complication (Acute) Abrasion of skin (Acute) Hx of colonoscopy (Resolved) Diverticula of colon (Acute) SOB (shortness of breath) (Acute) Acute respiratory failure with hypoxia (Resolved) Acute on chronic respiratory failure with hypoxia (Resolved) COPD with acute exacerbation (Resolved) CAP (community acquired pneumonia) (Resolved) Chronic respiratory failure with hypoxia and hypercapnia (Resolved) RECOMMENDATIONS: 1. Transfuse blood 2. Add Acapella therapy 3. Supplemental oxygen to keep saturations greater than 90% 4. Consider reinitiation of Lasix therapy 5. Continue nocturnal AVAPS IMPRESSIONS: 1. New onset seizure secondary to metabolic encephalopathy secondary to severe hyponatremia Medical suspicion for paraneoplastic syndrome of SIADH. Nephrology has been consulted and is following. Patient's sodium has improved and patient is tolerating this well. No focal neurologic deficits are appreciated at this time. Sodium is back to normal levels 2. Acute on chronic hypoxic respiratory failure secondary to seizure/advanced COPD Patient with acute hypoxia following seizure activity. Patient does have advanced COPD with an FEV1 of 31%, which complicates overall condition. Patient does not appear to have any aspiration on chest x-ray. Patient does not have significant wheezing suggesting concomitant obstructive lung disease exacerbation. Patient will continue on bronchodilators. Patient may benefit from reinitiation of baseline Lasix therapy. Patient does have significant anemia at this time and this will exacerbate underlying lung disorder. Patient should also have an Acapella to help with pulmonary toileting. 3. Non-small cell lung cancer Patient currently acting like paraneoplastic SIADH. Would defer to oncology/nephrology. No pneumothorax is appreciated on current chest imaging. 4. Chronic systolic congestive heart failure with history of LV thrombus Consider reinitiation of Lasix. On anticoagulation given LV thrombus history.. Does not appear to be in acute exacerbation of CHF at this time. Code Visit Inpatient E&M: 01157 [facility] Hosp L3
[2018-12-04 11:13] LABS: Hematocrit 23.3 % (40-54); Hemoglobin 7.7 g/dl (13.0-16.5)
--- NOTE | 2018-12-04 11:45 | CPS ---
1115-PATIENT'S BROUGHT IN PATIENT'S OWN TRILOGY. WATER RESERVOIR FILLED AND OXYGEN HOOKED TO 4LPM. CLEANED AND REMOVED HOSPITAL'S BIPAP FROM ROOM.
--- NOTE | 2018-12-04 11:48 | CPS ---
PATIENT WORKING ON PEP THERAPY ON OWN.
[2018-12-04 13:07] LABS: International Normalized Ratio 1.7; Prothrombin Time (Protime)PT. 19.7 SECONDS (11.7-14.9)
[2018-12-04] MEDS: Budesonide Respules 0.5 MG/2 ML AMPUL.NEB. INHALATION ×2 (14:26→19:28)
--- NOTE | 2018-12-04 14:56 | PCM.PN.HOSP ---
Patient Problems: Active and Suspected Problems (Last Reviewed 11/29/18 @ 06:25 by Radha Payan) Lung cancer (Acute) Anemia (Acute) Subjective: feeling better. Vitals/I&O's: Vital Signs Temp Pulse Resp BP Pulse Ox 37.2 C 79 18 130/70 H 98 12/04/18 14:55 12/04/18 14:55 12/04/18 14:55 12/04/18 14:55 12/04/18 14:55 Oxygen Flow Rate (L/min) 4 Oxygen Delivery Method Nasal Cannula Weight: 70.7 kg Body Mass Index (BMI) 26.6 Finger Stick Blood Glucose 126 Intake and Output for Last 24 Hours 12/02/18 12/03/18 12/04/18 23:59 23:59 23:59 Intake Total 1024 / 1024 1080 / 1080 1076 / 1076 Output Total 1600 / 1600 1890 / 1890 425 / 425 Balance -576 / -576 -810 / -810 651 / 651 General: Alert, No apparent distress HEENT: Atraumatic, Normocephalic Oral: Moist Mucosa, No Gingival or Mucosal Lesions/ Ulcerations Neck: No Nodes, Thyroid Normal Size and Texture Lungs: Clear to auscultation, Normal air movement, No rhonchi, No wheeze Cardiovascular: Regular rate, Regular Rhythm, Normal S1, Normal S2 Abdomen: Bowel Sounds Present, Soft, Non Tender, Non-Distended Extremities: No edema, No Calf Tenderness Skin: No rashes, No breakdown Psych/Mental Status: Normal Affect, Appropriate Microbiology Past 72 Hours 12/03/18 08:00 Cyst - Shoulder Gram Stain - Final 12/03/18 08:00 Cyst - Shoulder Wound Culture - Preliminary Gram positive organism Laboratory Results 12/01/18 20:15: Blood Type O NEGATIVE, Antibody Screen NEGATIVE, Crossmatch See Detail 12/04/18 05:20: WBC 5.0, RBC 1.94 L, Hgb 6.5 L, Hct 19.7 L, MCV 101.5 H, MCH 33.5 H, MCHC 33.0, RDW 16.5 H, RDW Differential 58.3 H, Plt Count 107 L, MPV 8.3, Immature Gran % (Auto) 0.200, Neut % (Auto) 78.8 H, Lymph % (Auto) 9.0 L, [place] % (Auto) 10.0, Eos % (Auto) 1.8, Baso % (Auto) 0.2, Absolute Neuts (auto) 4.0, Absolute Lymphs (auto) 0.45 L, Total Counted Not Reportable, Differential Comment SCANNED 12/04/18 05:20: Sodium 136, Potassium 3.3 L, Chloride 92 L, Carbon Dioxide 39.0 H, Anion Gap 5, BUN 14, Creatinine 0.93, Estim Creat Clear Calc 67.05, Est GFR (MDRD) Af Amer 104, Est GFR (MDRD) Non-Af 86, BUN/Creatinine Ratio 15.1, Glucose 108 H, Calcium 8.7 12/04/18 11:00: Hgb 7.7 L, Hct 23.3 L 12/04/18 12:50: PT 19.7 H, INR 1.7 Current Medications Albuterol Sulfate (Ventolin Aerosols) 2.5 mg INHALATION Q2H PRN PRN PRN Reason: SOB &/OR WHEEZING Albuterol/Ipratropium (Duoneb) 3 ml INHALATION Q6HWA.RT [facility] Last Admin: 12/04/18 14:26 Dose: 3 ml Aspirin (Aspirin, Baby) 81 mg PO QODAY@0800 [facility] Last Admin: 12/04/18 08:16 Dose: 81 mg Atorvastatin Calcium (Lipitor) 40 mg PO QHS [facility] Last Admin: 12/03/18 21:01 Dose: 40 mg Budesonide (Pulmicort Aerosol) 0.5 mg INHALATION BID.RT [facility] Last Admin: 12/04/18 14:26 Dose: 0.5 mg Carvedilol (Coreg) 6.25 mg PO BIDCM [facility] Last Admin: 12/04/18 08:16 Dose: 6.25 mg Enoxaparin Sodium (Lovenox) 70 mg SC Q12@0600,1800 [facility] Last Admin: 12/04/18 05:48 Dose: 70 mg Furosemide (Lasix) 80 mg PO DAILY [facility] Last Admin: 12/04/18 10:04 Dose: 80 mg Furosemide (Lasix) 40 mg PO 1800 [facility] Last Admin: 12/03/18 16:37 Dose: 40 mg Sodium Chloride () 250 mls @ 15 mls/hr IV .[id number] PRN PRN Reason: SALINE FLUSH Last Admin: 12/01/18 22:41 Dose: 15 mls/hr Ampicillin Sodium/Sulbactam (Sodium 3 gm/ Sodium Chloride) 112 mls @ 150 mls/hr IV Q6 [facility] Last Admin: 12/04/18 11:32 Dose: 150 mls/hr Levothyroxine Sodium (Synthroid) 100 mcg PO DAILY@0600 [facility] Last Admin: 12/04/18 05:48 Dose: 100 mcg Losartan Potassium (Cozaar) 25 mg PO DAILY [facility] Last Admin: 12/04/18 10:04 Dose: 25 mg [facility] ([facility] 400) [facility] Last Admin: 12/04/18 08:17 Dose: 400 mg Multivitamins (Multivitamin) [facility] Last Admin: 12/04/18 08:17 Dose: 1 tablet Ondansetron HCl (Zofran) 4 mg IV Q8H PRN PRN PRN Reason: NAUSEA Pantoprazole Sodium (Protonix) 40 mg PO BID [facility] Last Admin: 12/04/18 10:04 Dose: 40 mg Potassium Chloride (K-Dur) [facility] Last Admin: 12/04/18 08:16 Dose: 40 meq Sodium Chloride () 10 - 40 ml IV UD PRN PRN Reason: SALINE FLUSH Last Admin: 12/04/18 12:54 Dose: 10 ml Warfarin Sodium (Coumadin (Pbkc)) 7.5 mg PO MoTuWeThFr@1700 [facility] Last Admin: 12/03/18 16:37 Dose: 7.5 mg Warfarin Sodium (Coumadin (Pbkc)) 5 mg PO SuSa@1700 [facility] Medical Necessity - Tobacco Use Smoking Status: Former smoker Tobacco Use: Non-smoker Assessment/Plan All Active Problems (Last Reviewed 11/29/18 @ 06:25 by Radha Payan) Lung cancer (Acute) Anemia (Acute) Skin tear of left forearm without complication (Acute) Skin tear of right forearm without complication (Acute) Lesion of pelvic bone (Acute) Cancer of upper lobe of left lung (Acute) Pneumothorax after biopsy (Acute) Shortness of breath (Acute) Left ventricular thrombus (Acute) Laceration of right elbow without complication (Acute) Abrasion of skin (Acute) Hx of colonoscopy (Resolved) Diverticula of colon (Acute) SOB (shortness of breath) (Acute) Acute respiratory failure with hypoxia (Resolved) Acute on chronic respiratory failure with hypoxia (Resolved) COPD with acute exacerbation (Resolved) CAP (community acquired pneumonia) (Resolved) Chronic respiratory failure with hypoxia and hypercapnia (Resolved) 1. acute hypercapnic respiratory failure resolved no documented hypoxia, though pt was satting 91% with an ambubag may have be due post-ictal period + COPD + aspiration resolved extubated, but required BiPAP rescue 2. Acute seizure: may have been d/t hyponatremia EEG negative for seizure 3. Aspiration pneumonia Unasyn, change to Augmentin and treat through the 25th pul toilet 4. Hyponatremia overall, improved off hypertonic saline nephrology following. maybe SIADH check TSH and cortisol 5. NSCLC follow up with oncology 6. pAfib stable. anticoagulated. documented that patient has LV thrombus, but unable to locate it in echos, LHC and cardiology notes. 7. Thrombocytopenia down monitor doubt HIT 8. VTE prophylaxis: anticoagulated. Code Visit Inpatient E&M: 73159 Subs Hosp L2
--- NOTE | 2018-12-04 15:00 | PN_ITS ---
Patient Problems: Active and Suspected Problems (Last Reviewed 11/29/18 @ 06:25 by Radha Payan) Lung cancer (Acute) Anemia (Acute) Subjective: feeling better. Vitals/I&O's: Vital Signs Temp Pulse Resp BP Pulse Ox 37.2 C 79 18 130/70 H 98 12/04/18 14:55 12/04/18 14:55 12/04/18 14:55 12/04/18 14:55 12/04/18 14:55 Oxygen Flow Rate (L/min) 4 Oxygen Delivery Method Nasal Cannula Weight: 70.7 kg Body Mass Index (BMI) 26.6 Finger Stick Blood Glucose 126 Intake and Output for Last 24 Hours 12/02/18 12/03/18 12/04/18 23:59 23:59 23:59 Intake Total 1024 / 1024 1080 / 1080 1076 / 1076 Output Total 1600 / 1600 1890 / 1890 425 / 425 Balance -576 / -576 -810 / -810 651 / 651 General: Alert, No apparent distress HEENT: Atraumatic, Normocephalic Oral: Moist Mucosa, No Gingival or Mucosal Lesions/ Ulcerations Neck: No Nodes, Thyroid Normal Size and Texture Lungs: Clear to auscultation, Normal air movement, No rhonchi, No wheeze Cardiovascular: Regular rate, Regular Rhythm, Normal S1, Normal S2 Abdomen: Bowel Sounds Present, Soft, Non Tender, Non-Distended Extremities: No edema, No Calf Tenderness Skin: No rashes, No breakdown Psych/Mental Status: Normal Affect, Appropriate Microbiology Past 72 Hours 12/03/18 08:00 Cyst - Shoulder Gram Stain - Final 12/03/18 08:00 Cyst - Shoulder Wound Culture - Preliminary Gram positive organism Laboratory Results 12/01/18 20:15: Blood Type O NEGATIVE, Antibody Screen NEGATIVE, Crossmatch See Detail 12/04/18 05:20: WBC 5.0, RBC 1.94 L, Hgb 6.5 L, Hct 19.7 L, MCV 101.5 H, MCH 33.5 H, MCHC 33.0, RDW 16.5 H, RDW Differential 58.3 H, Plt Count 107 L, MPV 8.3, Immature Gran % (Auto) 0.200, Neut % (Auto) 78.8 H, Lymph % (Auto) 9.0 L, [place] % (Auto) 10.0, Eos % (Auto) 1.8, Baso % (Auto) 0.2, Absolute Neuts (auto) 4.0, Absolute Lymphs (auto) 0.45 L, Total Counted Not Reportable, Differential Comment SCANNED 12/04/18 05:20: Sodium 136, Potassium 3.3 L, Chloride 92 L, Carbon Dioxide 39.0 H, Anion Gap 5, BUN 14, Creatinine 0.93, Estim Creat Clear Calc 67.05, Est GFR (MDRD) Af Amer 104, Est GFR (MDRD) Non-Af 86, BUN/Creatinine Ratio 15.1, Glucose 108 H, Calcium 8.7 12/04/18 11:00: Hgb 7.7 L, Hct 23.3 L 12/04/18 12:50: PT 19.7 H, INR 1.7 Current Medications Albuterol Sulfate (Ventolin Aerosols) 2.5 mg INHALATION Q2H PRN PRN PRN Reason: SOB &/OR WHEEZING Albuterol/Ipratropium (Duoneb) 3 ml INHALATION Q6HWA.RT [facility] Last Admin: 12/04/18 14:26 Dose: 3 ml Aspirin (Aspirin, Baby) 81 mg PO QODAY@0800 [facility] Last Admin: 12/04/18 08:16 Dose: 81 mg Atorvastatin Calcium (Lipitor) 40 mg PO QHS [facility] Last Admin: 12/03/18 21:01 Dose: 40 mg Budesonide (Pulmicort Aerosol) 0.5 mg INHALATION BID.RT [facility] Last Admin: 12/04/18 14:26 Dose: 0.5 mg Carvedilol (Coreg) 6.25 mg PO BIDCM [facility] Last Admin: 12/04/18 08:16 Dose: 6.25 mg Enoxaparin Sodium (Lovenox) 70 mg SC Q12@0600,1800 [facility] Last Admin: 12/04/18 05:48 Dose: 70 mg Furosemide (Lasix) 80 mg PO DAILY [facility] Last Admin: 12/04/18 10:04 Dose: 80 mg Furosemide (Lasix) 40 mg PO 1800 [facility] Last Admin: 12/03/18 16:37 Dose: 40 mg Sodium Chloride () 250 mls @ 15 mls/hr IV .[id number] PRN PRN Reason: SALINE FLUSH Last Admin: 12/01/18 22:41 Dose: 15 mls/hr Ampicillin Sodium/Sulbactam (Sodium 3 gm/ Sodium Chloride) 112 mls @ 150 mls/hr IV Q6 [facility] Last Admin: 12/04/18 11:32 Dose: 150 mls/hr Levothyroxine Sodium (Synthroid) 100 mcg PO DAILY@0600 [facility] Last Admin: 12/04/18 05:48 Dose: 100 mcg Losartan Potassium (Cozaar) 25 mg PO DAILY [facility] Last Admin: 12/04/18 10:04 Dose: 25 mg [facility] ([facility] 400) [facility] Admin: 12/04/18 08:17 Dose: 400 mg Multivitamins ([facility]ivitamin) [facility] Last Admin: 12/04/18 08:17 Dose: 1 tablet Ondansetron HCl (Zofran) 4 mg IV Q8H PRN PRN PRN Reason: NAUSEA Pantoprazole Sodium (Protonix) 40 mg PO BID [facility] Last Admin: 12/04/18 10:04 Dose: 40 mg Potassium Chloride (K-Dur) [facility]q [facility] Last Admin: 12/04/18 08:16 Dose: 40 meq Sodium Chloride () 10 - 40 ml IV UD PRN PRN Reason: SALINE FLUSH Last Admin: 12/04/18 12:54 Dose: 10 ml Warfarin Sodium (Coumadin (Pbkc)) 7.5 mg PO MoTuWeThFr@1700 [facility] Last Admin: 12/03/18 16:37 Dose: 7.5 mg Warfarin Sodium (Coumadin (Pbkc)) 5 mg PO SuSa@1700 [facility] Medical Necessity - Tobacco Use Smoking Status: Former smoker Tobacco Use: Non-smoker Assessment/Plan All Active Problems (Last Reviewed 11/29/18 @ 06:25 by Radha Payan) Lung cancer (Acute) Anemia (Acute) Skin tear of left forearm without complication (Acute) Skin tear of right forearm without complication (Acute) Lesion of pelvic bone (Acute) Cancer of upper lobe of left lung (Acute) Pneumothorax after biopsy (Acute) Shortness of breath (Acute) Left ventricular thrombus (Acute) Laceration of right elbow without complication (Acute) Abrasion of skin (Acute) Hx of colonoscopy (Resolved) Diverticula of colon (Acute) SOB (shortness of breath) (Acute) Acute respiratory failure with hypoxia (Resolved) Acute on chronic respiratory failure with hypoxia (Resolved) COPD with acute exacerbation (Resolved) CAP (community acquired pneumonia) (Resolved) Chronic respiratory failure with hypoxia and hypercapnia (Resolved) 1. acute hypercapnic respiratory failure * resolved * no documented hypoxia, though pt was satting 91% with an ambubag * may have be due post-ictal period + COPD + aspiration * resolved * extubated, but required BiPAP rescue 2. Acute seizure: * may have been d/t hyponatremia * EEG negative for seizure 3. Aspiration pneumonia * Unasyn, change to Augmentin and treat through the * pulm toilet 4. Hyponatremia * overall, improved * off hypertonic saline * nephrology following. * maybe SIADH * check TSH and cortisol 5. NSCLC * follow up with oncology 6. pAfib * stable. anticoagulated. * documented that patient has LV thrombus, but unable to locate it in echos, LHC and cardiology notes. 7. Thrombocytopenia * down * monitor * doubt HIT 8. VTE prophylaxis: anticoagulated. Code Visit Inpatient E&M: 94890 Subs Hosp L2
--- NOTE | 2018-12-04 16:01 | PCM.PN.REN ---
Patient Problems: Active and Suspected Problems (Last Reviewed 11/29/18 @ 06:25 by Radha Payan) Lung cancer (Acute) Anemia (Acute) Subjective: No shortness of breath no chest pain - Physical Exam General: Alert, Oriented x3, Cooperative HEENT: Atraumatic, PERRLA, EOMI, Normocephalic Neck: Supple, No JVD, Negative Carotid Bruits Lungs: Clear to auscultation, - - Decreased air entry bilaterally Cardiovascular: Regular rate, No murmurs Abdomen: Bowel Sounds Present, Soft, Non Tender Extremities: No edema, Capillary Refill Less than 3 Seconds Skin: No rashes, No breakdown Musculoskeletal: No Tenderness to Palpation of Joints or Extremities Neurological: Cranial nerves II-XII grossly intact Psych/Mental Status: Normal Affect, Appropriate Vital Signs Temp Pulse Resp BP Pulse Ox 98.9 F 79 18 130/70 H 98 12/04/18 14:55 12/04/18 14:55 12/04/18 14:55 12/04/18 14:55 12/04/18 14:55 Oxygen Flow Rate (L/min) 4 Oxygen Delivery Method Nasal Cannula Weight: 70.7 kg Body Mass Index (BMI) 26.6 Finger Stick Blood Glucose 126 Intake and Output for Last 24 Hours 12/02/18 12/03/18 12/04/18 23:59 23:59 23:59 Intake Total 1024 / 1024 1080 / 1080 1076 / 1076 Output Total 1600 / 1600 1890 / 1890 425 / 425 Balance -576 / -576 -810 / -810 651 / 651 Microbiology Past 72 Hours 12/03/18 08:00 Gram Stain - Final Cyst - Shoulder Wound Culture - Preliminary Gram positive organism Laboratory Tests Past 24 Hrs 12/01/18 12/04/18 12/04/18 20:15 05:20 05:20 WBC 5.0 RBC 1.94 L Hgb 6.5 L Hct 19.7 L MCV 101.5 H MCH 33.5 H MCHC 33.0 RDW 16.5 H RDW Differential 58.3 H Plt Count 107 L MPV 8.3 Immature Gran % (Auto) 0.200 Neut % (Auto) 78.8 H Lymph % (Auto) 9.0 L [place] % (Auto) 10.0 Eos % (Auto) 1.8 Baso % (Auto) 0.2 Absolute Neuts (auto) 4.0 Absolute Lymphs (auto) 0.45 L Total Counted Not Reportable Differential Comment SCANNED PT INR Sodium 136 Potassium 3.3 L Chloride 92 L Carbon Dioxide 39.0 H Anion Gap 5 BUN 14 Creatinine 0.93 Estim Creat Clear Calc 67.05 Est GFR (MDRD) Af Amer 104 Est GFR (MDRD) Non-Af 86 BUN/Creatinine Ratio 15.1 Glucose 108 H Calcium 8.7 Blood Type O NEGATIVE Antibody Screen NEGATIVE Crossmatch See Detail 12/04/18 12/04/18 11:00 12:50 WBC RBC Hgb 7.7 L Hct 23.3 L MCV MCH MCHC RDW RDW Differential Plt Count MPV Immature Gran % (Auto) Neut % (Auto) Lymph % (Auto) [place] % (Auto) Eos % (Auto) Baso % (Auto) Absolute Neuts (auto) Absolute Lymphs (auto) Total Counted Differential Comment PT 19.7 H INR 1.7 Sodium Potassium Chloride Carbon Dioxide Anion Gap BUN Creatinine Estim Creat Clear Calc Est GFR (MDRD) Af Amer Est GFR (MDRD) Non-Af BUN/Creatinine Ratio Glucose Calcium Blood Type Antibody Screen Crossmatch Medical Necessity - Tobacco Use Smoking Status: Former smoker Tobacco Use: Non-smoker Assessment/Plan All Active Problems (Last Reviewed 11/29/18 @ 06:25 by Radha Payan) Lung cancer (Acute) Anemia (Acute) Skin tear of left forearm without complication (Acute) Skin tear of right forearm without complication (Acute) Lesion of pelvic bone (Acute) Cancer of upper lobe of left lung (Acute) Pneumothorax after biopsy (Acute) Shortness of breath (Acute) Left ventricular thrombus (Acute) Laceration of right elbow without complication (Acute) Abrasion of skin (Acute) Hx of colonoscopy (Resolved) Diverticula of colon (Acute) SOB (shortness of breath) (Acute) Acute respiratory failure with hypoxia (Resolved) Acute on chronic respiratory failure with hypoxia (Resolved) COPD with acute exacerbation (Resolved) CAP (community acquired pneumonia) (Resolved) Chronic respiratory failure with hypoxia and hypercapnia (Resolved) Hyponatremia Heart failure overcorrection avoided continue fluid restriction and Lasix can relax fluid restriction when sodium is higher today is 136 in normal range. seems to be euvolemic clinically Discussed with patient and RN
[2018-12-04] MEDS: Furosemide 40 MG Tablet PO (17:47)
--- NOTE | 2018-12-04 19:54 | NURSING ---
Pt requesting to have meds at this time, so can go to sleep early. Pt feels tired and likes to go to bed by 19:30.
[2018-12-04] MEDS: Atorvastatin Calcium 40 MG Tablet PO (19:56)
[2018-12-05] VITALS (16 sets, daily range): BP systolic 110–136; BP diastolic 42–69; PULSE 67–86; RESP 16–18; TEMP 36.4–36.8; O2SAT 94–98
[2018-12-05] MEDS: Levothyroxine 100 MCG Tablet PO (05:08)
[2018-12-05] MEDS: Enoxaparin 80 MG/0.8 ML Syringe 70 MG SC ×2 (05:08→16:45)
[2018-12-05] MEDS: 0.9% Saline Lock 10 ML Syringe IV ×4 (05:31→23:06)
[2018-12-05 05:59] LABS: Absolute Lymphocyte Count 0.55 X10^3/ul (0.83-4.51); Absolute Neutrophil Count 4.1 X10^3/uL (2.0-7.7); Basophil# 0.03 X10^3/uL; Basophil% 0.6 % (0-1); Eosinophil# 0.14 X10^3/uL; Eosinophils% 2.6 % (0-5); Hematocrit 24.1 % (40-54); Hemoglobin 7.7 g/dl (13.0-16.5); Lymphocyte # 0.55 X10^3/ul (4.0); Lymphocyte % 10.2 % (19-41); Mean Corpuscular Hgb 32.4 pg (27.0-32.0); Mean Corpuscular Volume 101.3 fL (80-94); Mean Platelet Vol. 8.7 fl (6.2-12.0); Monocyte# 0.55 X10^3/uL; Monocyte% 10.2 % (0-10); Neutrophil % 76.2 % (47-70); Platelet Count 127 K/mm3 (150-450); RBC Distribution Width CV 18.1 % (11.6-14.6); RBC Distribution Width SD 62.9 fl (35.1-43.9); Red Blood Count 2.38 M/mm3 (4.6-6.2); White Blood Count 5.4 K/mm3 (4.4-11.0)
[2018-12-05 06:00] LABS: Differential Indicated SCAN CRITERIA MET; International Normalized Ratio 1.8; POSITIVE COUNT NO; POSITIVE DIFFERENTIAL YES; POSITIVE MORPHOLOGY NO; Prothrombin Time (Protime)PT. 20.7 SECONDS (11.7-14.9)
[2018-12-05 06:04] LABS: Anion Gap 5 (5-15); BUN 14 mg/dL (7-18); BUN/Creat Ratio 14.2 RATIO (10-20); Calcium,Total 8.8 mg/dL (8.5-10.1); Chloride 94 mmol/L (98-107); Creatinine, Serum 0.98 mg/dL (0.70-1.30); EST Glomerular Filtration Rate 81 mL/min (>60); Est Glom Filt Rate - Afr Amer 98 mL/min (>60); Estimated Creatinine Clearance 63.63 ml/min; Glucose 102 mg/dL (74-106); Magnesium 1.3 mg/dL (1.6-2.6); Potassium 3.3 mmol/L (3.5-5.1); Sodium Level 138 mmol/L (136-145)
[2018-12-05] MEDS: Ipratropium/Albuterol Sulfate 3 ML AMPUL.NEB INHALATION ×3 (07:07→20:56)
[2018-12-05] MEDS: Budesonide Respules 0.5 MG/2 ML AMPUL.NEB. INHALATION ×2 (07:07→20:56)
[2018-12-05] MEDS: Potassium Chloride 10mEq/100mL 10 MEQ/100 ML IV.SOLN. 100 MEQ IV BOLUS ×4 (07:10→12:16)
--- NOTE | 2018-12-05 08:13 | PCM.PN.PUL ---
Patient Problems: Active and Suspected Problems (Last Reviewed 11/29/18 @ 06:25 by Radha Payan) Lung cancer (Acute) Anemia (Acute) Subjective: Patient did well overnight. Patient reports stability from a respiratory standpoint. Patient denies any bleeding complications. Patient was compliant with noninvasive therapy overnight and thinks this was helpful. Patient states he feels at his baseline from a respiratory standpoint. - Physical Exam General: Alert, Oriented x3, Cooperative, - - Mild conversational dyspnea. Appears older than stated age. HEENT: Atraumatic, PERRLA, EOMI, Normocephalic, - - No scleral icterus or injection noted. Glasses in place. Oral: Moist Mucosa, No Gingival or Mucosal Lesions/ Ulcerations Neck: Supple, No JVD, No Nodes, Trachea Midline Lungs: No rhonchi, No rales, Diminished, Wheezes, - - Symmetric expansion. No dullness to percussion. Sounds at his baseline. Cardiovascular: Regular rate, Regular Rhythm, Normal S1, Normal S2, Murmur, No rub noted, No Gallop Abdomen: Bowel Sounds Present, Soft, Non Tender, Non-Distended Extremities: No cyanosis, No edema, Clubbing Skin: - - No significant change compared to previous. Back wound does not show any erythema Musculoskeletal: No Tenderness to Palpation of Joints or Extremities Lymphatic: No Cervical, Supraclavicular, or Inguinal Adenopathy Neurological: Cranial nerves II-XII grossly intact, Neuro grossly intact, Motor Exam 5/5 strength throughout Psych/Mental Status: Alert and oriented to time, place, person, mood and affect Vital Signs Temp Pulse Resp BP Pulse Ox 36.8 C 81 18 136/63 H 94 12/05/18 03:10 12/05/18 03:10 12/05/18 03:10 12/05/18 03:10 12/05/18 03:10 Oxygen Flow Rate (L/min) 4 Oxygen Delivery Method CPAP Weight: 70.7 kg Body Mass Index (BMI) 26.6 Finger Stick Blood Glucose 126 Intake and Output for Last 24 Hours 12/03/18 12/04/18 12/05/18 23:59 23:59 23:59 Intake Total 1080 / 1080 1316 / 1316 543 / 543 Output Total 1890 / 1890 425 / 425 Balance -810 / -810 891 / 891 543 / 543 Microbiology Past 72 Hours 12/03/18 08:00 Gram Stain - Final Cyst - Shoulder Wound Culture - Final Staphylococcus epidermidis Laboratory Tests Past 24 Hrs 12/01/18 12/04/18 12/04/18 20:15 11:00 12:50 WBC RBC Hgb 7.7 L Hct 23.3 L MCV MCH MCHC RDW RDW Differential Plt Count MPV Immature Gran % (Auto) Neut % (Auto) Lymph % (Auto) [place] % (Auto) Eos % (Auto) Baso % (Auto) Absolute Neuts (auto) Absolute Lymphs (auto) Total Counted PT 19.7 H INR 1.7 Sodium Potassium Chloride Carbon Dioxide Anion Gap BUN Creatinine Estim Creat Clear Calc Est GFR (MDRD) Af Amer Est GFR (MDRD) Non-Af BUN/Creatinine Ratio Glucose Calcium Magnesium Crossmatch See Detail 12/05/18 12/05/18 12/05/18 05:25 05:25 05:25 WBC 5.4 RBC 2.38 L Hgb 7.7 L Hct 24.1 L MCV 101.3 H MCH 32.4 H MCHC 32.0 RDW 18.1 H RDW Differential 62.9 H Plt Count 127 L MPV 8.7 Immature Gran % (Auto) 0.200 Neut % (Auto) 76.2 H Lymph % (Auto) 10.2 L [place] % (Auto) 10.2 H Eos % (Auto) 2.6 Baso % (Auto) 0.6 Absolute Neuts (auto) 4.1 Absolute Lymphs (auto) 0.55 L Total Counted Not Reportable PT 20.7 H INR 1.8 Sodium 138 Potassium 3.3 L Chloride 94 L Carbon Dioxide 39.0 H Anion Gap 5 BUN 14 Creatinine 0.98 Estim Creat Clear Calc 63.63 Est GFR (MDRD) Af Amer 98 Est GFR (MDRD) Non-Af 81 BUN/Creatinine Ratio 14.2 Glucose 102 Calcium 8.8 Magnesium 1.3 L Crossmatch Medical Necessity - Tobacco Use Smoking Status: Former smoker Tobacco Use: Non-smoker Assessment/Plan All Active Problems (Last Reviewed 11/29/18 @ 06:25 by Radha Payan) Lung cancer (Acute) Anemia (Acute) Skin tear of left forearm without complication (Acute) Skin tear of right forearm without complication (Acute) Lesion of pelvic bone (Acute) Cancer of upper lobe of left lung (Acute) Pneumothorax after biopsy (Acute) Shortness of breath (Acute) Left ventricular thrombus (Acute) Laceration of right elbow without complication (Acute) Abrasion of skin (Acute) Hx of colonoscopy (Resolved) Diverticula of colon (Acute) SOB (shortness of breath) (Acute) Acute respiratory failure with hypoxia (Resolved) Acute on chronic respiratory failure with hypoxia (Resolved) COPD with acute exacerbation (Resolved) CAP (community acquired pneumonia) (Resolved) Chronic respiratory failure with hypoxia and hypercapnia (Resolved) RECOMMENDATIONS: 1. Continue with fluid restriction 2. Continue Acapella therapy 3. Supplemental oxygen to keep saturations greater than 90% 4. Okay to discharge from a pulmonary perspective 5. Continue nocturnal AVAPS 6. Patient can call the office as an outpatient for prednisone burst if worsens IMPRESSIONS: 1. New onset seizure secondary to metabolic encephalopathy secondary to severe hyponatremia Medical suspicion for paraneoplastic syndrome of SIADH. Nephrology has been consulted and is following. Patient's sodium has improved and patient is tolerating this well. No focal neurologic deficits are appreciated at this time. Sodium is back to normal levels. Patient responding well to fluid restriction. 2. Acute on chronic hypoxic respiratory failure secondary to seizure/advanced COPD Patient with acute hypoxia following seizure activity. Patient does have advanced COPD with an FEV1 of 31%, which complicates overall condition. Patient does not appear to have any aspiration on chest x-ray. Patient does not have significant wheezing suggesting concomitant obstructive lung disease exacerbation. Patient will continue on bronchodilators. Patient reinitiated on Lasix therapy. Patient also received blood products yesterday and feels his breathing is back to its baseline. Patient does have diminished breath sounds and wheezing at baseline and this should not preclude discharge. Patient can call our office as an outpatient with any issues. 3. Non-small cell lung cancer Patient currently acting like paraneoplastic SIADH. Would defer to oncology/nephrology. No pneumothorax is appreciated on current chest imaging. Patient responding well to fluid restriction. 4. Chronic systolic congestive heart failure with history of LV thrombus And back on Lasix therapy. On anticoagulation given LV thrombus history. Does not appear to be in acute exacerbation of CHF at this time. Code Visit Inpatient E&M: 86719 Subs Hosp L2
[2018-12-05] MEDS: Furosemide 80 MG Tablet PO (08:35)
[2018-12-05] MEDS: Multivitamins,Therapeutic Tablet 1 TABLET PO (08:35)
[2018-12-05] MEDS: Pantoprazole Sodium 40 MG Tablet PO ×2 (08:35→21:11)
[2018-12-05] MEDS: Magnesium Oxide 400 MG Tablet PO ×2 (08:35→16:44)
[2018-12-05] MEDS: Losartan Potassium 25 MG Tablet PO (08:35)
[2018-12-05] MEDS: Senna/Docusate Sodium 1 Tablet 2 TABLET PO (08:35)
[2018-12-05] MEDS: Carvedilol 6.25 MG Tablet PO ×2 (08:36→16:44)
--- NOTE | 2018-12-05 09:00 | CPS ---
Patient working on PEP Therapy on own.
--- NOTE | 2018-12-05 16:15 | PCM.PN.HOSP ---
Patient Problems: Active and Suspected Problems (Last Reviewed 11/29/18 @ 06:25 by Radha Payan) Lung cancer (Acute) Anemia (Acute) Subjective: Patient is sitting on the chair. Heart rate is controlled. Blood pressure stable. No tachycardia. On 3 L of oxygen. Patient has ecchymosis on upper and lower extremities. Patient had a skin tear on the left arm and elbow. He is on Coumadin for left ventricular thrombus. Patient has history of frequent falls. Patient was admitted for hyponatremia, confusion with history of non-small cell lung cancer? status post chemotherapy and prophylactic whole brain radiotherapy. The patient follows Dr. Murcia. Vitals/I&O's: Vital Signs Temp Pulse Resp BP Pulse Ox 98.2 F 75 18 134/53 H 95 12/05/18 14:36 12/05/18 15:14 12/05/18 14:36 12/05/18 14:36 12/05/18 15:00 Oxygen Flow Rate (L/min) 3 Oxygen Delivery Method Nasal Cannula Weight: 155 lb 13.869 oz Body Mass Index (BMI) 26.6 Finger Stick Blood Glucose 126 Intake and Output for Last 24 Hours 12/03/18 12/04/18 12/05/18 23:59 23:59 23:59 Intake Total 1080 / 1080 1316 / 1316 1098 / 1098 Output Total 1890 / 1890 425 / 425 475 / 475 Balance -810 / -810 891 / 891 623 / 623 General: Alert, Oriented x3, Cooperative HEENT: Atraumatic, PERRLA, EOMI, Normocephalic Neck: Supple, No JVD, Negative Carotid Bruits Lungs: Clear to auscultation, Diminished - Air entry is diffusely diminished., Rhonchi Cardiovascular: Regular rate, Regular Rhythm, Normal S1, Normal S2, No murmurs Abdomen: Bowel Sounds Present, Soft, Non Tender, Non-Distended Extremities: No edema, Capillary Refill Less than 3 Seconds Skin: No rashes, No breakdown Musculoskeletal: No Tenderness to Palpation of Joints or Extremities, Arthritic Changes, Muscle Wasting Lymphatic: No Cervical, Supraclavicular, or Inguinal Adenopathy Neurological: Cranial nerves II-XII grossly intact, Neuro grossly intact - So there is one more evidence of life passing around the is Psych/Mental Status: Normal Affect, Appropriate Microbiology Past 72 Hours 12/03/18 08:00 Cyst - Shoulder Gram Stain - Final 12/03/18 08:00 Cyst - Shoulder Wound Culture - Final Staphylococcus epidermidis Laboratory Results 12/01/18 20:15: Crossmatch See Detail 12/05/18 05:25: WBC 5.4, RBC 2.38 L, Hgb 7.7 L, Hct 24.1 L, MCV 101.3 H, MCH 32.4 H, MCHC 32.0, RDW 18.1 H, RDW Differential 62.9 H, Plt Count 127 L, MPV 8.7, Immature Gran % (Auto) 0.200, Neut % (Auto) 76.2 H, Lymph % (Auto) 10.2 L, [place] % (Auto) 10.2 H, Eos % (Auto) 2.6, Baso % (Auto) 0.6, Absolute Neuts (auto) 4.1, Absolute Lymphs (auto) 0.55 L, Total Counted Not Reportable 12/05/18 05:25: PT 20.7 H, INR 1.8 12/05/18 05:25: Sodium 138, Potassium 3.3 L, Chloride 94 L, Carbon Dioxide 39.0 H, Anion Gap 5, BUN 14, Creatinine 0.98, Estim Creat Clear Calc 63.63, Est GFR (MDRD) Af Amer 98, Est GFR (MDRD) Non-Af 81, BUN/Creatinine Ratio 14.2, Glucose 102, Calcium 8.8, Magnesium 1.3 L Current Medications Albuterol Sulfate (Ventolin Aerosols) 2.5 mg INHALATION Q2H PRN PRN PRN Reason: SOB &/OR WHEEZING Albuterol/Ipratropium (Duoneb) 3 ml INHALATION Q6HWA.RT [facility] Last Admin: 12/05/18 13:14 Dose: 3 ml Aspirin (Aspirin, Baby) 81 mg PO QODAY@0800 [facility] Last Admin: 12/04/18 08:16 Dose: 81 mg Atorvastatin Calcium (Lipitor) 40 mg PO QHS [facility] Last Admin: 12/04/18 19:56 Dose: 40 mg Budesonide (Pulmicort Aerosol) 0.5 mg INHALATION BID.RT [facility] Last Admin: 12/05/18 07:07 Dose: 0.5 mg Carvedilol (Coreg) 6.25 mg PO BIDCM [facility] Last Admin: 12/05/18 08:36 Dose: 6.25 mg Enoxaparin Sodium (Lovenox) 70 mg SC Q12@0600,1800 [facility] Last Admin: 12/05/18 05:08 Dose: 70 mg Furosemide (Lasix) 80 mg PO DAILY [facility] Last Admin: 12/05/18 08:35 Dose: 80 mg Furosemide (Lasix) 40 mg PO 1800 [facility] Last Admin: 12/04/18 17:47 Dose: 40 mg Sodium Chloride () 250 mls @ 15 mls/hr IV .[id number] PRN PRN Reason: SALINE FLUSH Last Admin: 12/01/18 22:41 Dose: 15 mls/hr Ampicillin Sodium/Sulbactam (Sodium 3 gm/ Sodium Chloride) 112 mls @ 150 mls/hr IV Q6 [facility] Last Admin: 12/05/18 12:16 Dose: 150 mls/hr Levothyroxine Sodium (Synthroid) 100 mcg PO DAILY@0600 [facility] Last Admin: 12/05/18 05:08 Dose: 100 mcg Losartan Potassium (Cozaar) 25 mg PO DAILY [facility] Last Admin: 12/05/18 08:35 Dose: 25 mg Magnesium [facility] (Mag-Ox 400) [facility] Last Admin: 12/05/18 08:35 Dose: 400 mg Multivitamins (Multivitamin) [facility] Last Admin: 12/05/18 08:35 Dose: 1 tablet Ondansetron HCl (Zofran) 4 mg IV Q8H PRN PRN PRN Reason: NAUSEA Pantoprazole Sodium (Protonix) 40 mg PO BID [facility] Last Admin: 12/05/18 08:35 Dose: 40 mg Potassium Chloride (K-Dur) 40 meq PO TIDCM [facility] Last Admin: 12/05/18 12:16 Dose: 40 meq Senna/Docusate Sodium (Senokot-S, Shawna-Colace) 2 tablet PO BID [facility] Last Admin: 12/05/18 08:35 Dose: 2 tablet Sodium Chloride () 10 - 40 ml IV UD PRN PRN Reason: SALINE FLUSH Last Admin: 12/05/18 07:10 Dose: 10 ml Warfarin Sodium (Coumadin (Pbkc)) 7.5 mg PO MoTuWeThFr@1700 [facility] Last Admin: 12/03/18 16:37 Dose: 7.5 mg Warfarin Sodium (Coumadin (Pbkc)) 5 mg PO Oswalda@1700 [facility] Last Admin: 12/04/18 17:45 Dose: 5 mg Medical Necessity - Tobacco Use Smoking Status: Former smoker Tobacco Use: Non-smoker Assessment/Plan All Active Problems (Last Reviewed 11/29/18 @ 06:25 by Radha Payan) Lung cancer (Acute) Anemia (Acute) Skin tear of left forearm without complication (Acute) Skin tear of right forearm without complication (Acute) Lesion of pelvic bone (Acute) Cancer of upper lobe of left lung (Acute) Pneumothorax after biopsy (Acute) Shortness of breath (Acute) Left ventricular thrombus (Acute) Laceration of right elbow without complication (Acute) Abrasion of skin (Acute) Hx of colonoscopy (Resolved) Diverticula of colon (Acute) SOB (shortness of breath) (Acute) Acute respiratory failure with hypoxia (Resolved) Acute on chronic respiratory failure with hypoxia (Resolved) COPD with acute exacerbation (Resolved) CAP (community acquired pneumonia) (Resolved) Chronic respiratory failure with hypoxia and hypercapnia (Resolved) This is a 63-year-old gentleman with history of non-small cell lung cancer status post chemotherapy and prophylactic whole brain radiation, hyponatremia, chronic hypoxic respiratory failure on 3 L of oxygen was admitted with confusion. Lateral rapid response was called on the day of admission the suspicion of generalized tonic-clonic seizure. Sodium level was 121. GCS 3. Patient was transferred to ICU. 1. acute hypercapnic respiratory failure resolved Patient on baseline 3 L of oxygen. may have be due post-ictal period + COPD + aspiration resolved extubated, but required BiPAP rescue 2. Acute seizure: may have been d/t hyponatremia EEG negative for seizure 3. Aspiration pneumonia Unasyn, change to Augmentin and treat through the 25th pul toilet 4. Hyponatremia overall, improved off hypertonic saline nephrology following. maybe SIADH TSH and serum cortisol ordered 5. NSCLC follow up with oncology 6. pAfib stable. anticoagulated. documented that patient has LV thrombus, but unable to locate it in echos, LHC and cardiology notes. 7. Thrombocytopenia Platelet count ranged between 100-140. Patient Monitor CBC. Chronic anemia mostly secondary to 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/Coumadin patient denies active GI bleed including hematemesis and melena/hematochezia: Hemoglobin daily between 7 to 8 g%. 8. VTE prophylaxis: anticoagulated. CODE STATUS again discussed with the . Patient showed me MOLST paper, signed by questionable, and Dr. Rodríguez patient states CPR and full code. Patient is high risk of fall and may have head injury on fall other catastrophic consequences which was discussed with the . Code Visit Inpatient E&M: 43329 Subs Hosp L3
--- NOTE | 2018-12-05 16:25 | PN_ITS ---
Patient Problems: Active and Suspected Problems (Last Reviewed 11/29/18 @ 06:25 by Radha Payan) Lung cancer (Acute) Anemia (Acute) Subjective: Patient is sitting on the chair. Heart rate is controlled. Blood pressure stable. No tachycardia. On 3 L of oxygen. Patient has ecchymosis on upper and lower extremities. Patient had a skin tear on the left arm and elbow. He is on Coumadin for left ventricular thrombus. Patient has history of frequent falls. Patient was admitted for hyponatremia, confusion with history of non-small cell lung cancer? status post chemotherapy and prophylactic whole brain radiotherapy. The patient follows Dr. Murcia. Vitals/I&O's: Vital Signs Temp Pulse Resp BP Pulse Ox 98.2 F 75 18 134/53 H 95 12/05/18 14:36 12/05/18 15:14 12/05/18 14:36 12/05/18 14:36 12/05/18 15:00 Oxygen Flow Rate (L/min) 3 Oxygen Delivery Method Nasal Cannula Weight: 155 lb 13.869 oz Body Mass Index (BMI) 26.6 Finger Stick Blood Glucose 126 Intake and Output for Last 24 Hours 12/03/18 12/04/18 12/05/18 23:59 23:59 23:59 Intake Total 1080 / 1080 1316 / 1316 1098 / 1098 Output Total 1890 / 1890 425 / 425 475 / 475 Balance -810 / -810 891 / 891 623 / 623 General: Alert, Oriented x3, Cooperative HEENT: Atraumatic, PERRLA, EOMI, Normocephalic Neck: Supple, No JVD, Negative Carotid Bruits Lungs: Clear to auscultation, Diminished - Air entry is diffusely diminished., Rhonchi Cardiovascular: Regular rate, Regular Rhythm, Normal S1, Normal S2, No murmurs Abdomen: Bowel Sounds Present, Soft, Non Tender, Non-Distended Extremities: No edema, Capillary Refill Less than 3 Seconds Skin: No rashes, No breakdown Musculoskeletal: No Tenderness to Palpation of Joints or Extremities, Arthritic Changes, Muscle Wasting Lymphatic: No Cervical, Supraclavicular, or Inguinal Adenopathy Neurological: Cranial nerves II-XII grossly intact, Neuro grossly intact - So there is one more evidence of life passing around the is Psych/Mental Status: Normal Affect, Appropriate Microbiology Past 72 Hours 12/03/18 08:00 Cyst - Shoulder Gram Stain - Final 12/03/18 08:00 Cyst - Shoulder Wound Culture - Final Staphylococcus epidermidis Laboratory Results 12/01/18 20:15: Crossmatch See Detail 12/05/18 05:25: WBC 5.4, RBC 2.38 L, Hgb 7.7 L, Hct 24.1 L, MCV 101.3 H, MCH 32.4 H, MCHC 32.0, RDW 18.1 H, RDW Differential 62.9 H, Plt Count 127 L, MPV 8.7, Immature Gran % (Auto) 0.200, Neut % (Auto) 76.2 H, Lymph % (Auto) 10.2 L, [place] % (Auto) 10.2 H, Eos % (Auto) 2.6, Baso % (Auto) 0.6, Absolute Neuts (auto) 4.1, Absolute Lymphs (auto) 0.55 L, Total Counted Not Reportable 12/05/18 05:25: PT 20.7 H, INR 1.8 12/05/18 05:25: Sodium 138, Potassium 3.3 L, Chloride 94 L, Carbon Dioxide 39.0 H, Anion Gap 5, BUN 14, Creatinine 0.98, Estim Creat Clear Calc 63.63, Est GFR (MDRD) Af Amer 98, Est GFR (MDRD) Non-Af 81, BUN/Creatinine Ratio 14.2, Glucose 102, Calcium 8.8, Magnesium 1.3 L Current Medications Albuterol Sulfate (Ventolin Aerosols) 2.5 mg INHALATION Q2H PRN PRN PRN Reason: SOB &/OR WHEEZING Albuterol/Ipratropium (Duoneb) 3 ml INHALATION Q6HWA.RT [facility] Last Admin: 12/05/18 13:14 Dose: 3 ml Aspirin (Aspirin, Baby) 81 mg PO QODAY@0800 [facility] Last Admin: 12/04/18 08:16 Dose: 81 mg Atorvastatin Calcium (Lipitor) 40 mg PO QHS [facility] Last Admin: 12/04/18 19:56 Dose: 40 mg Budesonide (Pulmicort Aerosol) 0.5 mg INHALATION BID.RT [facility] Last Admin: 12/05/18 07:07 Dose: 0.5 mg Carvedilol (Coreg) 6.25 mg PO BIDCM [facility] Last Admin: 12/05/18 08:36 Dose: 6.25 mg Enoxaparin Sodium (Lovenox) 70 mg SC Q12@0600,1800 [facility] Last Admin: 12/05/18 05:08 Dose: 70 mg Furosemide (Lasix) 80 mg PO DAILY [facility] Last Admin: 12/05/18 08:35 Dose: 80 mg Furosemide (Lasix) 40 mg PO 1800 [facility] Last Admin: 12/04/18 17:47 Dose: 40 mg Sodium Chloride () 250 mls @ 15 mls/hr IV .[id number] PRN PRN Reason: SALINE FLUSH Last Admin: 12/01/18 22:41 Dose: 15 mls/hr Ampicillin Sodium/Sulbactam (Sodium 3 gm/ Sodium Chloride) 112 mls @ 150 mls/hr IV Q6 [facility] Last Admin: 12/05/18 12:16 Dose: 150 mls/hr Levothyroxine Sodium (Synthroid) 100 mcg PO DAILY@0600 [facility] Last Admin: 12/05/18 05:08 Dose: 100 mcg Losartan Potassium (Cozaar) 25 mg PO DAILY [facility] Last Admin: 12/05/18 08:35 Dose: 25 mg Magnesium Oxide (Mag-Ox 400) [facility] Last Admin: 12/05/18 08:35 Dose: 400 mg Multivitamins (Multivitamin) 1 tablet [facility] Last Admin: 12/05/18 08:35 Dose: 1 tablet Ondansetron HCl (Zofran) 4 mg IV Q8H PRN PRN PRN Reason: NAUSEA Pantoprazole Sodium (Protonix) 40 mg PO BID [facility] Last Admin: 12/05/18 08:35 Dose: 40 mg Potassium Chloride (K-Dur) 40 meq PO TIDCM [facility] Last Admin: 12/05/18 12:16 Dose: 40 meq Senna/Docusate Sodium (Senokot-S, Shawna-Colace) 2 tablet PO BID [facility] Last Admin: 12/05/18 08:35 Dose: 2 tablet Sodium Chloride () 10 - 40 ml IV UD PRN PRN Reason: SALINE FLUSH Last Admin: 12/05/18 07:10 Dose: 10 ml Warfarin Sodium (Coumadin (Pbkc)) 7.5 mg PO MoTuWeThFr@1700 [facility] Last Admin: 12/03/18 16:37 Dose: 7.5 mg Warfarin Sodium (Coumadin (Pbkc)) 5 mg PO Oswalda@1700 [facility] Last Admin: 12/04/18 17:45 Dose: 5 mg Medical Necessity - Tobacco Use Smoking Status: Former smoker Tobacco Use: Non-smoker Assessment/Plan All Active Problems (Last Reviewed 11/29/18 @ 06:25 by Radha Payan) Lung cancer (Acute) Anemia (Acute) Skin tear of left forearm without complication (Acute) Skin tear of right forearm without complication (Acute) Lesion of pelvic bone (Acute) Cancer of upper lobe of left lung (Acute) Pneumothorax after biopsy (Acute) Shortness of breath (Acute) Left ventricular thrombus (Acute) Laceration of right elbow without complication (Acute) Abrasion of skin (Acute) Hx of colonoscopy (Resolved) Diverticula of colon (Acute) SOB (shortness of breath) (Acute) Acute respiratory failure with hypoxia (Resolved) Acute on chronic respiratory failure with hypoxia (Resolved) COPD with acute exacerbation (Resolved) CAP (community acquired pneumonia) (Resolved) Chronic respiratory failure with hypoxia and hypercapnia (Resolved) This is a 63-year-old gentleman with history of non-small cell lung cancer status post chemotherapy and prophylactic whole brain radiation, hyponatremia, chronic hypoxic respiratory failure on 3 L of oxygen was admitted with confusion. Lateral rapid response was called on the day of admission the suspicion of generalized tonic-clonic seizure. Sodium level was 121. GCS 3. Patient was transferred to ICU. 1. acute hypercapnic respiratory failure * resolved * Patient on baseline 3 L of oxygen. * may have be due post-ictal period + COPD + aspiration * resolved * extubated, but required BiPAP rescue 2. Acute seizure: * may have been d/t hyponatremia * EEG negative for seizure 3. Aspiration pneumonia * Unasyn, change to Augmentin and treat through the * pulm toilet 4. Hyponatremia * overall, improved * off hypertonic saline * nephrology following. * maybe SIADH * TSH and serum cortisol ordered 5. NSCLC * follow up with oncology 6. pAfib * stable. anticoagulated. * documented that patient has LV thrombus, but unable to locate it in echos, LHC and cardiology notes. 7. Thrombocytopenia * Platelet count ranged between 100-140. Patient * Monitor CBC. Chronic anemia mostly secondary to 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/Coumadin patient denies active GI bleed including hematemesis and melena/hematochezia: Hemoglobin daily between 7 to 8 g%. 8. VTE prophylaxis: anticoagulated. CODE STATUS again discussed with the . Patient showed me MOLST paper, signed by questionable, and Dr. Rodríguez patient states CPR and full code. Patient is high risk of fall and may have head injury on fall other catastrophic consequences which was discussed with the . Code Visit Inpatient E&M: 49218 Subs Hosp L3
[2018-12-05] MEDS: Furosemide 40 MG Tablet PO (16:44)
--- NOTE | 2018-12-05 16:44 | PCM.PN.REN ---
Patient Problems: Active and Suspected Problems (Last Reviewed 11/29/18 @ 06:25 by Radha Payan) Lung cancer (Acute) Anemia (Acute) Subjective: walks on hallways sob much better no other c/o - Physical Exam General: Alert, Oriented x3, Cooperative HEENT: Atraumatic, PERRLA, EOMI, Normocephalic Neck: Supple, No JVD, Negative Carotid Bruits Lungs: Clear to auscultation, Normal air movement Cardiovascular: Regular rate, No murmurs Abdomen: Bowel Sounds Present, Soft, Non Tender Extremities: No edema, Capillary Refill Less than 3 Seconds Skin: No rashes, No breakdown Musculoskeletal: No Tenderness to Palpation of Joints or Extremities Neurological: Cranial nerves II-XII grossly intact Psych/Mental Status: Normal Affect, Appropriate Vital Signs Temp Pulse Resp BP Pulse Ox 98.2 F 75 18 134/53 H 95 12/05/18 14:36 12/05/18 15:14 12/05/18 14:36 12/05/18 14:36 12/05/18 15:00 Oxygen Flow Rate (L/min) 3 Oxygen Delivery Method Nasal Cannula Weight: 70.7 kg Body Mass Index (BMI) 26.6 Finger Stick Blood Glucose 126 Intake and Output for Last 24 Hours 12/03/18 12/04/18 12/05/18 23:59 23:59 23:59 Intake Total 1080 / 1080 1316 / 1316 1098 / 1098 Output Total 1890 / 1890 425 / 425 475 / 475 Balance -810 / -810 891 / 891 623 / 623 Microbiology Past 72 Hours 12/03/18 08:00 Gram Stain - Final Cyst - Shoulder Wound Culture - Final Staphylococcus epidermidis Laboratory Tests Past 24 Hrs 12/01/18 12/05/18 12/05/18 20:15 05:25 05:25 WBC 5.4 RBC 2.38 L Hgb 7.7 L Hct 24.1 L MCV 101.3 H MCH 32.4 H MCHC 32.0 RDW 18.1 H RDW Differential 62.9 H Plt Count 127 L MPV 8.7 Immature Gran % (Auto) 0.200 Neut % (Auto) 76.2 H Lymph % (Auto) 10.2 L [place] % (Auto) 10.2 H Eos % (Auto) 2.6 Baso % (Auto) 0.6 Absolute Neuts (auto) 4.1 Absolute Lymphs (auto) 0.55 L Total Counted Not Reportable PT 20.7 H INR 1.8 Sodium Potassium Chloride Carbon Dioxide Anion Gap BUN Creatinine Estim Creat Clear Calc Est GFR (MDRD) Af Amer Est GFR (MDRD) Non-Af BUN/Creatinine Ratio Glucose Calcium Magnesium Crossmatch See Detail 12/05/18 05:25 WBC RBC Hgb Hct MCV MCH MCHC RDW RDW Differential Plt Count MPV Immature Gran % (Auto) Neut % (Auto) Lymph % (Auto) [place] % (Auto) Eos % (Auto) Baso % (Auto) Absolute Neuts (auto) Absolute Lymphs (auto) Total Counted PT INR Sodium 138 Potassium 3.3 L Chloride 94 L Carbon Dioxide 39.0 H Anion Gap 5 BUN 14 Creatinine 0.98 Estim Creat Clear Calc 63.63 Est GFR (MDRD) Af Amer 98 Est GFR (MDRD) Non-Af 81 BUN/Creatinine Ratio 14.2 Glucose 102 Calcium 8.8 Magnesium 1.3 L Crossmatch Medical Necessity - Tobacco Use Smoking Status: Former smoker Tobacco Use: Non-smoker Assessment/Plan All Active Problems (Last Reviewed 11/29/18 @ 06:25 by Radha Payan) Lung cancer (Acute) Anemia (Acute) Skin tear of left forearm without complication (Acute) Skin tear of right forearm without complication (Acute) Lesion of pelvic bone (Acute) Cancer of upper lobe of left lung (Acute) Pneumothorax after biopsy (Acute) Shortness of breath (Acute) Left ventricular thrombus (Acute) Laceration of right elbow without complication (Acute) Abrasion of skin (Acute) Hx of colonoscopy (Resolved) Diverticula of colon (Acute) SOB (shortness of breath) (Acute) Acute respiratory failure with hypoxia (Resolved) Acute on chronic respiratory failure with hypoxia (Resolved) COPD with acute exacerbation (Resolved) CAP (community acquired pneumonia) (Resolved) Chronic respiratory failure with hypoxia and hypercapnia (Resolved) Hyponatremia Heart failure overcorrection avoided continue fluid restriction and Lasix can relax fluid restriction when sodium is higher today is 138 in normal range. seems to be euvolemic clinically Discussed with patient and family
[2018-12-05] MEDS: Atorvastatin Calcium 40 MG Tablet PO (21:11)
[2018-12-06] VITALS (12 sets, daily range): BP systolic 114–156; BP diastolic 46–67; PULSE 68–82; RESP 16–20; TEMP 36.4–37.4; O2SAT 92–98
[2018-12-06] MEDS: 0.9% Saline Lock 10 ML Syringe IV ×3 (04:54→11:32)
[2018-12-06] MEDS: Levothyroxine 100 MCG Tablet PO (05:07)
[2018-12-06] MEDS: Enoxaparin 80 MG/0.8 ML Syringe 70 MG SC (05:07)
[2018-12-06 05:19] LABS: Anion Gap 4 (5-15); BUN 14 mg/dL (7-18); BUN/Creat Ratio 13.1 RATIO (10-20); Calcium,Total 8.9 mg/dL (8.5-10.1); Chloride 99 mmol/L (98-107); Creatinine, Serum 1.07 mg/dL (0.70-1.30); EST Glomerular Filtration Rate 73 mL/min (>60); Est Glom Filt Rate - Afr Amer 88 mL/min (>60); Estimated Creatinine Clearance 58.27 ml/min; Glucose 102 mg/dL (74-106); Potassium 4.5 mmol/L (3.5-5.1); Sodium Level 140 mmol/L (136-145)
[2018-12-06] MEDS: Budesonide Respules 0.5 MG/2 ML AMPUL.NEB. INHALATION ×2 (07:07→20:31)
[2018-12-06] MEDS: Ipratropium/Albuterol Sulfate 3 ML AMPUL.NEB INHALATION ×2 (07:07→20:31)
[2018-12-06] MEDS: Magnesium Oxide 400 MG Tablet PO ×2 (08:41→17:14)
[2018-12-06] MEDS: Multivitamins,Therapeutic Tablet 1 TABLET PO (08:41)
[2018-12-06] MEDS: Pantoprazole Sodium 40 MG Tablet PO ×2 (08:42→21:00)
[2018-12-06] MEDS: Losartan Potassium 25 MG Tablet PO (08:42)
[2018-12-06] MEDS: Aspirin 81 MG TAB.CHEW PO (08:42)
[2018-12-06] MEDS: Furosemide 80 MG Tablet PO (08:42)
[2018-12-06] MEDS: Carvedilol 6.25 MG Tablet PO ×2 (08:42→17:15)
--- NOTE | 2018-12-06 11:32 | DCINST_ITS ---
- Discharge Diagnoses Current Active Problems: Current Active and Chronic Problems (Last Reviewed 11/29/18 @ 06:25 by Radha Payan) Lung cancer (Acute) Anemia (Acute) You will use the following diet at home:: Cardiac Discharge Activity: May Not Drive Allergies/Adverse Reactions: Allergies No Known Allergies Allergy (Verified 11/29/18 06:24) Medications to take at Discharge Hydroxychloroquine [Plaquenil] 200 mg PO BIDCM 08/27/16 Multivitamin [Multiple Vitamins] 1 ea PO DAILY 08/27/16 fluticasone propionate 50 mcg/actuation nasal spray,suspension 2 spray INTRANASAL BID PRN PRN g 10/15/17 atorvastatin 40 mg tablet 40 mg PO QHS #90 tab 07/27/18 atezolizumab 1,200 mg/20 mL (60 mg/mL) intravenous solution 60 mg IV UD ml 08/27/18 levothyroxine 100 mcg tablet 100 mcg PO DAILY 09/28/18 aclidinium bromide 400 mcg/actuation breath activated powder inhaler 1 inh INHALATION BID 10/07/18 albuterol sulfate HFA 90 mcg/actuation aerosol inhaler 2 puff INHALATION Q4H PRN PRN g 11/25/18 budesonide-formoterol HFA 160 mcg-4.5 mcg/actuation aerosol inhaler 2 puff INHALATION BID 11/25/18 Carvedilol 6.25 mg PO BID 12/01/18 Cetirizine HCl [Zyrtec] 10 mg PO DAILY 12/01/18 Cholecalciferol (VIT D3) [Vitamin D3] 1,000 unit PO BID 12/01/18 Furosemide 80 mg PO DAILY 12/01/18 Furosemide [Lasix] 40 mg PO QHS 12/01/18 Losartan Potassium [Cozaar] 25 mg PO DAILY 12/01/18 Magnesium Oxide [Mag-Ox 400] 400 mg PO BID 12/01/18 Omeprazole 40 mg PO DAILY 12/01/18 Warfarin Sodium 5 mg PO SUSA 12/01/18 Warfarin Sodium [Coumadin] 7.5 mg PO MOTUWETHFR 12/01/18 potassium chloride ER 20 mEq tablet,extended release 20 meq PO DAILY 12/01/18 Magnesium Oxide [Mag-Ox 400] 400 mg PO BIDCM #14 tablet 12/06/18 Potassium Chloride [K-Dur] 40 meq PO BID #60 tablet 12/06/18 Senna/Docusate Sodium [Senokot-S] 2 tablet PO BID PRN PRN tablet 12/06/18 The following prescriptions were given: Magnesium Oxide [Mag-Ox 400] 400 mg PO BIDCM #14 tablet Potassium Chloride [K-Dur] 40 meq PO BID #60 tablet Primary Care Physician: Joseluis Foote III, MD [Primary Care Provider] - Please follow up with your Primary Care Physician in: IN 1 WEEK Test Results: Test results from this visit will be discussed in further detail at your follow- up appointment, if applicable. F/U CBC, BMP and INR in 3-4 DAYS to be ordered and followed by PCP Please Follow Up With: Ben Murcia, When: For lung cancer Please Follow Up With: Clovis Rodríguez MD When: in 4 weeks Please Follow Up With: Case Cantrell MD When: FOR CAD, CHF Please Follow Up With: Bhanu Maloney MD When: FOR hyponatremia and SIADH
--- NOTE | 2018-12-06 11:33 | DS.PCM_ITS ---
Discharge Date and Diagnosis Date of Admission: 12/01/18 Date of Discharge: 12/07/18 - Primary Discharge Diagnosis Active and Suspected Problems (Last Reviewed 11/29/18 @ 06:25 by Radha Payan) Lung cancer (Acute) Anemia (Acute) - Secondary Discharge Diagnosis Chronic Problems (Last Reviewed 11/29/18 @ 06:25 by Radha Payan) Implantable cardioverter-defibrillator (ICD) in situ (Chronic 12/27/16) [employer] Dynogen EL ICD, model D150; Seriao # [id number] Secondary pulmonary arterial hypertension (Chronic) Nonischemic cardiomyopathy (Chronic) EF 15-20% per heart cath 08/29/2016; 20-35% per echo 12/17/2016 Severe left ventricular systolic dysfunction (Chronic) EF 15-20% per heart cath 08/29/2016; 20-35% per echo 12/17/2016 History of left heart catheterization (Chronic) Mild, nonobstructive CAD per [facility] 08/29/2016 @ [facility] per Dr. Cantrell Atherosclerotic heart disease of [place] coronary artery without angina pectoris (Chronic) Mild, nonobstructive CAD per [facility] 08/29/2016 @ [facility] per Dr. Cantrell PVD (peripheral vascular disease) (Chronic) Long-term use of high-risk medication (Chronic) Stage 3 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) FEV1 31 PND (paroxysmal nocturnal dyspnea) (Chronic) Hyperlipidemia (Chronic) halfway current use of anticoagulant (Chronic) Psoriatic arthritis (Chronic) Acne cystica (Chronic) CHF (congestive heart failure), NYHA class I (Chronic) Pulmonary hypertension (Chronic) RVSP 47mm hg per echo 08/28/2016 (unable to estimate per Echo 12/17/2016) Hospital Course and Treatment Operations: - - Status post chest tube after lung biopsy removal Summary of Care Provided: [] This is a 63-year-old gentleman with history of non-small cell lung cancer status post chemotherapy and prophylactic whole brain radiation, hyponatremia, chronic hypoxic respiratory failure on 3 L of oxygen was admitted with confusion. Later ON, rapid response was called on the day of admission the suspicion of generalized tonic-clonic seizure. Sodium level was 121. GCS 3. Patient was transferred to ICU. 1. acute hypercapnic respiratory failure * resolved * Patient on baseline 3 L of oxygen. * may have be due post-ictal period + COPD + aspiration * resolved * extubated, but required BiPAP rescue Epistaxis mostly secondary to 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 Lovenox and Coumadin: Lovenox and Coumadin are being held. Anterior nasal packing was done and epistaxis controlled. After 24 hours nasal packing removed. No further bleeding. Repeat H&H is stable between 7 to 8 g%. Hematocrit about 24. Patient is discharged off anticoagulant. Right musculoskeletal thigh pain most probably quadriceps muscle strain: Right hip x-ray including pelvis was done does not show acute change but chronic small soft tissue calcification adjacent to right greater trochanter and vascular calcification 2. Acute seizure: * may have been d/t hyponatremia * EEG negative for seizure 3. Aspiration pneumonia * Unasyn, change to Augmentin and treat through the * pulm including incentive spirometry. Hygiene advised 4. Hyponatremia * overall, improved * off hypertonic saline * nephrology following. * maybe SIADH. * Along with the nephrology as an outpatient for TSH and serum cortisol. 5. NSCLC * follow up with oncology 6. pAfib * stable. Currently 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 has been held secondary to epistaxis and severe acute blood loss anemia * documented that patient has LV thrombus, but unable to locate it in echos, LHC and cardiology notes. 7. Thrombocytopenia * Platelet count ranged between 100-140. Patient * Monitor CBC. Chronic anemia mostly secondary to 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/Coumadin patient denies active GI bleed including hematemesis and melena/hematochezia: Hemoglobin daily between 7 to 8 g%. 8. VTE prophylaxis: Bilateral SCDs CODE STATUS again discussed with the . Patient showed me MOLST paper, signed by questionable, and Dr. Rodríguez patient states CPR and full code. Patient is high risk of fall and may have head injury on fall other catastrophic consequences which was discussed with the . Discharge medication reconciliation done. Discharge follow-up instructions completed. Discharge process discussed with the patient and all questions were answered to patient's satisfaction. Patient is discharged off 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. Follow-up CBC, BMP and PT/INR in TCU in 2 days. Patient has been advised that he is at high risk of rebleeding on 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. Total time spent, exact 35 minutes on discharge meds reconciliation, examination, review of imaging and blood test and discussion with the patient on follow-up instructions. Microbiology Past 72 Hours 12/05/18 16:50 Stool Stool Occult Blood (LILY) - Final 12/03/18 08:00 Cyst - Shoulder Gram Stain - Final 12/03/18 08:00 Cyst - Shoulder Wound Culture - Final Staphylococcus epidermidis Laboratory Results 12/06/18 17:52: WBC 4.1 L, RBC 2.40 L, Hgb 7.8 L, Hct 24.5 L, MCV 102.1 H, MCH 32.5 H, MCHC 31.8 L, RDW 17.8 H, RDW Differential 66.9 H, Plt Count 111 L, MPV 8.9, Immature Gran % (Auto) 0.200, Neut % (Auto) 67.2, Lymph % (Auto) 19.1, [place] % (Auto) 9.8, Eos % (Auto) 3.2, Baso % (Auto) 0.5, Absolute Neuts (auto) 2.7, Absolute Lymphs (auto) 0.78 L, Total Counted Not Reportable, Differential Comment SCANNED 12/07/18 06:15: WBC 5.0, RBC 2.28 L, Hgb 7.5 L, Hct 23.5 L, MCV 103.1 H, MCH 32.9 H, MCHC 31.9 L, RDW 17.5 H, RDW Differential 65.8 H, Plt Count 114 L, MPV 8.9, Immature Gran % (Auto) 0.200, Neut % (Auto) 74.0 H, Lymph % (Auto) 11.2 L, [place] % (Auto) 10.2 H, Eos % (Auto) 3.8, Baso % (Auto) 0.6, Absolute Neuts (auto) 3.7, Absolute Lymphs (auto) 0.56 L, Total Counted Not Reportable, Differential Comment SCANNED, Anisocytosis 2+, Microcytosis 1+, Macrocytosis 1+ 12/07/18 06:15: Magnesium 1.8 Subjective: Patient had epistaxis controlled. No further oozing or bleeding. H&H is stable. No tachycardia or hypotension. Anterior nasal packing removed. Patient complain of pain in the right groin and anterior aspect of thigh. It started when he was doing physical therapy. - Physical Exam General: Alert, Oriented x3, Cooperative HEENT: Atraumatic, PERRLA, EOMI, Normocephalic Neck: Supple, No JVD, Negative Carotid Bruits, Negative Hepatojugular Reflux Lungs: Clear to auscultation, No rhonchi, No wheeze, No rales, Diminished Cardiovascular: Regular rate, Regular Rhythm, Normal S1, Normal S2, No murmurs Abdomen: Bowel Sounds Present, Soft, Non Tender, Non-Distended Extremities: No edema, Capillary Refill Less than 3 Seconds Skin: - - Diffuse bruises and ecchymosis present over upper extremities. Thin the skin Musculoskeletal: No Tenderness to Palpation of Joints or Extremities, Muscle Wasting Neurological: Cranial nerves II-XII grossly intact, Deep Tendon Reflexes 2+/4 and Symmetrical, Neuro grossly intact Psych/Mental Status: Normal Affect, Appropriate Vital Signs Temp Pulse Resp BP Pulse Ox 98.6 F 82 18 114/46 L 92 12/06/18 08:37 12/06/18 08:37 12/06/18 08:37 12/06/18 08:37 12/06/18 08:37 Oxygen Flow Rate (L/min) 3 Oxygen Delivery Method Nasal Cannula Weight: 156 lb 1.396 oz Body Mass Index (BMI) 26.6 Finger Stick Blood Glucose 126 Intake and Output for Last 24 Hours 12/04/18 12/05/18 12/06/18 23:59 23:59 23:59 Intake Total 1316 / 1316 1400 / 1400 140 / 140 Output Total 425 / 425 475 / 475 Balance 891 / 891 925 / 925 140 / 140 Microbiology Past 72 Hours 12/05/18 16:50 Stool Occult Blood (LILY) - Final Stool 12/03/18 08:00 Gram Stain - Final Cyst - Shoulder Wound Culture - Final Staphylococcus epidermidis Laboratory Tests Past 24 Hrs 12/06/18 04:50 Sodium 140 Potassium 4.5 Chloride 99 Carbon Dioxide 37.0 H Anion Gap 4 L BUN 14 Creatinine 1.07 Estim Creat Clear Calc 58.27 Est GFR (MDRD) Af Amer 88 Est GFR (MDRD) Non-Af 73 BUN/Creatinine Ratio 13.1 Glucose 102 Calcium 8.9 Discharge Activity: May Not Drive Home Medications: Medications to take at Discharge Hydroxychloroquine [Plaquenil] 200 mg PO BIDCM 08/27/16 Multivitamin [Multiple Vitamins] 1 ea PO DAILY 08/27/16 fluticasone propionate 50 mcg/actuation nasal spray,suspension 2 spray INTRANASAL BID PRN PRN g 10/15/17 atorvastatin 40 mg tablet 40 mg PO QHS #90 tab 07/27/18 atezolizumab 1,200 mg/20 mL (60 mg/mL) intravenous solution 60 mg IV UD ml 08/27/18 levothyroxine 100 mcg tablet 100 mcg PO DAILY 09/28/18 aclidinium bromide 400 mcg/actuation breath activated powder inhaler 1 inh INHALATION BID 10/07/18 albuterol sulfate HFA 90 mcg/actuation aerosol inhaler 2 puff INHALATION Q4H PRN PRN g 11/25/18 budesonide-formoterol HFA 160 mcg-4.5 mcg/actuation aerosol inhaler 2 puff INHALATION BID 11/25/18 Carvedilol 6.25 mg PO BID 12/01/18 Cetirizine HCl [Zyrtec] 10 mg PO DAILY 12/01/18 Cholecalciferol (VIT D3) [Vitamin D3] 1,000 unit PO BID 12/01/18 Furosemide 80 mg PO DAILY 12/01/18 Furosemide [Lasix] 40 mg PO QHS 12/01/18 Losartan Potassium [Cozaar] 25 mg PO DAILY 12/01/18 Omeprazole 40 mg PO DAILY 12/01/18 Senna/Docusate Sodium [Senokot-S] 2 tab PO BID PRN PRN tab 12/06/18 Amoxicillin/Potassium Clav [Amox Tr-K Clv 875-125 mg Tab] 1 each PO BID 12/07/18 Magnesium Oxide [Mag-Ox 400] 400 mg PO BIDCM 12/07/18 Potassium Chloride [K-Dur] 40 meq PO BID 12/07/18 Sodium Chloride 0.65% [[place] Nasal [place]] 2 spray NASAL TID 12/07/18 Warfarin Sodium 5 mg PO SUSA #0 12/07/18 Warfarin Sodium [Coumadin] 7.5 mg PO MOTUWETHFR #0 12/07/18 Primary Care Physician: Joseluis Foote III, MD [Primary Care Provider] - Please follow up with your Primary Care Physician in: IN 1 WEEK Please Follow Up With: Ben Murcia DO When: For lung cancer Please Follow Up With: Clovis Rodríguez MD When: in 4 weeks Please Follow Up With: Case Cantrell MD When: FOR CAD, CHF Please Follow Up With: Bhanu Maloney MD When: FOR hyponatremia and SIADH Medical Necessity - Tobacco Use Smoking Status: Former smoker Tobacco Use: Non-smoker Meaningful Use Info Meaningful Use Diagnoses (Choose all that apply): None applicable Code Visit Inpatient E&M: 52224 Disch Hosp
--- NOTE | 2018-12-06 11:40 | CASEMGMT ---
Therapy is recommending OP therapy for pt at discharge. This RN CM to room at this time and pt/ are agreeable to [facility] for PT/OT at this time. Referral faxed to [facility] at this time and original script to at this time. Pt/ voice no further questions/concerns/needs at this time. [place] RN CM
--- NOTE | 2018-12-06 11:46 | PCM.PN.REN ---
Patient Problems: Active and Suspected Problems (Last Reviewed 11/29/18 @ 06:25 by Radha Payan) Lung cancer (Acute) Anemia (Acute) Subjective: no new complaints - Physical Exam General: Alert, Oriented x3, Cooperative HEENT: Atraumatic, PERRLA, EOMI, Normocephalic Neck: Supple, No JVD, Negative Carotid Bruits Lungs: Clear to auscultation, Normal air movement Cardiovascular: Regular rate, No murmurs Abdomen: Bowel Sounds Present, Soft, Non Tender Extremities: No edema, Capillary Refill Less than 3 Seconds Skin: No rashes, No breakdown Musculoskeletal: No Tenderness to Palpation of Joints or Extremities Neurological: Cranial nerves II-XII grossly intact Psych/Mental Status: Normal Affect, Appropriate Vital Signs Temp Pulse Resp BP Pulse Ox 98.6 F 74 18 114/46 L 92 12/06/18 08:37 12/06/18 10:59 12/06/18 08:37 12/06/18 08:37 12/06/18 08:37 Oxygen Flow Rate (L/min) 3 Oxygen Delivery Method Nasal Cannula Weight: 70.8 kg Body Mass Index (BMI) 26.6 Finger Stick Blood Glucose 126 Intake and Output for Last 24 Hours 12/04/18 12/05/18 12/06/18 23:59 23:59 23:59 Intake Total 1316 / 1316 1400 / 1400 320 / 320 Output Total 425 / 425 475 / 475 Balance 891 / 891 925 / 925 320 / 320 Microbiology Past 72 Hours 12/05/18 16:50 Stool Occult Blood (LILY) - Final Stool 12/03/18 08:00 Gram Stain - Final Cyst - Shoulder Wound Culture - Final Staphylococcus epidermidis Laboratory Tests Past 24 Hrs 12/06/18 04:50 Sodium 140 Potassium 4.5 Chloride 99 Carbon Dioxide 37.0 H Anion Gap 4 L BUN 14 Creatinine 1.07 Estim Creat Clear Calc 58.27 Est GFR (MDRD) Af Amer 88 Est GFR (MDRD) Non-Af 73 BUN/Creatinine Ratio 13.1 Glucose 102 Calcium 8.9 Medical Necessity - Tobacco Use Smoking Status: Former smoker Tobacco Use: Non-smoker Assessment/Plan All Active Problems (Last Reviewed 11/29/18 @ 06:25 by Radha Payan) Lung cancer (Acute) Anemia (Acute) Skin tear of left forearm without complication (Acute) Skin tear of right forearm without complication (Acute) Lesion of pelvic bone (Acute) Cancer of upper lobe of left lung (Acute) Pneumothorax after biopsy (Acute) Shortness of breath (Acute) Left ventricular thrombus (Acute) Laceration of right elbow without complication (Acute) Abrasion of skin (Acute) Hx of colonoscopy (Resolved) Diverticula of colon (Acute) SOB (shortness of breath) (Acute) Acute respiratory failure with hypoxia (Resolved) Acute on chronic respiratory failure with hypoxia (Resolved) COPD with acute exacerbation (Resolved) CAP (community acquired pneumonia) (Resolved) Chronic respiratory failure with hypoxia and hypercapnia (Resolved) Hyponatremia. 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 some component of fluid overload. sodium is now normal ok to dc today patient prefers to follow up with PCP and onologist maintain fluid restriction at home may need salt tablets is sodium drops again
--- NOTE | 2018-12-06 13:00 | PHA.DC.COU ---
Pharmacy Services has performed discharge medication counseling for this patient. The patient was counseled on the following discharge medications and changes in medications for homegoing review. 1. AUGMENTIN 2. POTASSIUM 3. MAGNESIUM The Reason for Use, instructions for use, and potential side effects were reviewed for all new medications. The patient's questions regarding all of their medications were answered. The patient was able to verbally demonstrate an understanding of their discharge medications. Home Medications Hydroxychloroquine [Plaquenil] 200 mg PO BIDCM 08/27/16 Multivitamin [Multiple Vitamins] 1 ea PO DAILY 08/27/16 fluticasone propionate 50 mcg/actuation nasal spray,suspension 2 spray INTRANASAL BID PRN PRN g 10/15/17 atorvastatin 40 mg tablet 40 mg PO QHS #90 tab 07/27/18 atezolizumab 1,200 mg/20 mL (60 mg/mL) intravenous solution 60 mg IV UD ml 08/27/18 levothyroxine 100 mcg tablet 100 mcg PO DAILY 09/28/18 aclidinium bromide 400 mcg/actuation breath activated powder inhaler 1 inh INHALATION BID 10/07/18 albuterol sulfate HFA 90 mcg/actuation aerosol inhaler 2 puff INHALATION Q4H PRN PRN g 11/25/18 budesonide-formoterol HFA 160 mcg-4.5 mcg/actuation aerosol inhaler 2 puff INHALATION BID 11/25/18 Carvedilol 6.25 mg PO BID 12/01/18 Cetirizine HCl [Zyrtec] 10 mg PO DAILY 12/01/18 Cholecalciferol (VIT D3) [Vitamin D3] 1,000 unit PO BID 12/01/18 Furosemide 80 mg PO DAILY 12/01/18 Furosemide [Lasix] 40 mg PO QHS 12/01/18 Losartan Potassium [Cozaar] 25 mg PO DAILY 12/01/18 Omeprazole 40 mg PO DAILY 12/01/18 Warfarin Sodium 5 mg PO SUSA 12/01/18 Warfarin Sodium [Coumadin] 7.5 mg PO MOTUWETHFR 12/01/18 Amoxicillin/Potassium Clav [Augmentin 875-125 Tablet] 1 each PO BID #7 tablet 12/06/18 Magnesium Oxide [Mag-Ox 400] 400 mg PO BIDCM #14 tab 12/06/18 Potassium Chloride [K-Dur] 40 meq PO BID #60 tab 12/06/18 Senna/Docusate Sodium [Senokot-S] 2 tab PO BID PRN PRN tab 12/06/18
--- NOTE | 2018-12-06 16:58 | PCM.PN.HOSP ---
Patient Problems: Active and Suspected Problems (Last Reviewed 11/29/18 @ 06:25 by Radha Payan) Lung cancer (Acute) Anemia (Acute) Subjective: The patient was supposed to be discharged today. The patient started having epistaxis from right nasal cavity. It is slow continuous oozing from septal region with blood clots. Anterior nasal packing was done. Discharge is held. Vitals/I&O's: Vital Signs Temp Pulse Resp BP Pulse Ox 99.4 F H 69 16 136/57 H 98 12/06/18 14:30 12/06/18 15:00 12/06/18 14:30 12/06/18 14:30 12/06/18 14:30 Oxygen Flow Rate (L/min) 3 Oxygen Delivery Method Nasal Cannula Weight: 156 lb 1.396 oz Body Mass Index (BMI) 26.6 Finger Stick Blood Glucose 126 Intake and Output for Last 24 Hours 12/04/18 12/05/18 12/06/18 23:59 23:59 23:59 Intake Total 1316 / 1316 1400 / 1400 320 / 320 Output Total 425 / 425 475 / 475 Balance 891 / 891 925 / 925 320 / 320 General: Alert, Oriented x3, Cooperative HEENT: Atraumatic, PERRLA, EOMI, Normocephalic Neck: Supple, No JVD, Negative Carotid Bruits Lungs: Clear to auscultation, No rhonchi, No wheeze, No rales, Diminished - Air entry is diffusely diminished. Cardiovascular: Regular rate, Regular Rhythm, Normal S1, Normal S2, No murmurs Abdomen: Bowel Sounds Present, Soft, Non Tender, Non-Distended Extremities: No edema, Capillary Refill Less than 3 Seconds Skin: No rashes, No breakdown Musculoskeletal: No Tenderness to Palpation of Joints or Extremities, Arthritic Changes, Muscle Wasting Neurological: Cranial nerves II-XII grossly intact, Deep Tendon Reflexes 2+/4 and Symmetrical, Neuro grossly intact Psych/Mental Status: Normal Affect, Appropriate Microbiology Past 72 Hours 12/05/18 16:50 Stool Stool Occult Blood (ILLY) - Final 12/03/18 08:00 Cyst - Shoulder Gram Stain - Final 12/03/18 08:00 Cyst - Shoulder Wound Culture - Final Staphylococcus epidermidis Laboratory Results 12/06/18 04:50: Sodium 140, Potassium 4.5, Chloride 99, Carbon Dioxide 37.0 H, Anion Gap 4 L, BUN 14, Creatinine 1.07, Estim Creat Clear Calc 58.27, Est GFR (MDRD) Af Amer 88, Est GFR (MDRD) Non-Af 73, BUN/Creatinine Ratio 13.1, Glucose 102, Calcium 8.9 Current Medications Albuterol Sulfate (Ventolin Aerosols) 2.5 mg INHALATION Q2H PRN PRN PRN Reason: SOB &/OR WHEEZING Albuterol/Ipratropium (Duoneb) 3 ml INHALATION Q6HWA.RT [facility] Last Admin: 12/06/18 07:07 Dose: 3 ml Amoxicillin/Clavulanate [facility] ([facility] Aspirin (Aspirin, Baby) 81 mg PO QODAY@0800 [facility] Last Admin: 12/06/18 08:42 Dose: 81 mg Atorvastatin Calcium (Lipitor) 40 mg PO QHS [facility] Last Admin: 12/05/18 21:11 Dose: 40 mg Budesonide (Pulmicort Aerosol) 0.5 mg INHALATION BID.RT [facility] Last Admin: 12/06/18 07:07 Dose: 0.5 mg [facility]vedil[facility] ([facility]g) [facility] Last Admin: 12/06/18 08:42 Dose: 6.25 mg Furosemide (Lasix) 80 mg PO DAILY [facility] Last Admin: 12/06/18 08:42 Dose: 80 mg Furosemide (Lasix) 40 mg PO 1800 [facility] Last Admin: 12/05/18 16:44 Dose: 40 mg Sodium Chloride () 250 mls @ 15 mls/hr IV .[id number] PRN PRN Reason: SALINE FLUSH Last Admin: 12/01/18 22:41 Dose: 15 mls/hr Levothyroxine Sodium (Synthroid) 100 mcg PO DAILY@0600 [facility] Last Admin: 12/06/18 05:07 Dose: 100 mcg Losartan Potassium (Cozaar) 25 mg PO DAILY [facility] Last Admin: 12/06/18 08:42 Dose: 25 mg Magnesium Oxide (Mag-Ox 400) [facility] Last Admin: 12/06/18 08:41 Dose: 400 mg Multivitamins (Multivitamin) [facility] Last Admin: 12/06/18 08:41 Dose: 1 tablet Ondansetron HCl (Zofran) 4 mg IV Q8H PRN PRN PRN Reason: NAUSEA Pantoprazole Sodium (Protonix) 40 mg PO BID [facility] Last Admin: 12/06/18 08:42 Dose: 40 mg Senna/Docusate Sodium (Senokot-S, Shawna-Colace) 2 tablet PO BID [facility] Last Admin: 12/06/18 08:41 Dose: Not Given Sodium Chloride () 10 - 40 ml IV UD PRN PRN Reason: SALINE FLUSH Last Admin: 12/06/18 11:32 Dose: 10 ml Medical Necessity - Tobacco Use Smoking Status: Former smoker Tobacco Use: Non-smoker Assessment/Plan All Active Problems (Last Reviewed 11/29/18 @ 06:25 by Radha Payan) Lung cancer (Acute) Anemia (Acute) Skin tear of left forearm without complication (Acute) Skin tear of right forearm without complication (Acute) Lesion of pelvic bone (Acute) Cancer of upper lobe of left lung (Acute) Pneumothorax after biopsy (Acute) Shortness of breath (Acute) Left ventricular thrombus (Acute) Laceration of right elbow without complication (Acute) Abrasion of skin (Acute) Hx of colonoscopy (Resolved) Diverticula of colon (Acute) SOB (shortness of breath) (Acute) Acute respiratory failure with hypoxia (Resolved) Acute on chronic respiratory failure with hypoxia (Resolved) COPD with acute exacerbation (Resolved) CAP (community acquired pneumonia) (Resolved) Chronic respiratory failure with hypoxia and hypercapnia (Resolved) This is a 63-year-old gentleman with history of non-small cell lung cancer status post chemotherapy and prophylactic whole brain radiation, hyponatremia, chronic hypoxic respiratory failure on 3 L of oxygen was admitted with confusion. Lateral rapid response was called on the day of admission the suspicion of generalized tonic-clonic seizure. Sodium level was 121. GCS 3. Patient was transferred to ICU. 1. acute hypercapnic respiratory failure resolved Patient on baseline 3 L of oxygen. may have be due post-ictal period + COPD + aspiration resolved extubated, but required BiPAP rescue Epistaxis mostly secondary to 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 Lovenox and Coumadin: Lovenox and Coumadin are being held. Anterior nasal packing done. Discharge is canceled. Watch out. CBC ordered. 2. Acute seizure: may have been d/t hyponatremia EEG negative for seizure 3. Aspiration pneumonia Unasyn, change to Augmentin and treat through the 25th pul toilet 4. Hyponatremia overall, improved off hypertonic saline nephrology following. maybe SIADH. Along with the nephrology as an outpatient for TSH and serum cortisol. 5. NSCLC follow up with oncology 6. pAfib stable. anticoagulated. documented that patient has LV thrombus, but unable to locate it in echos, LHC and cardiology notes. 7. Thrombocytopenia Platelet count ranged between 100-140. Patient Monitor CBC. Chronic anemia mostly secondary to 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/Coumadin patient denies active GI bleed including hematemesis and melena/hematochezia: Hemoglobin daily between 7 to 8 g%. 8. VTE prophylaxis: anticoagulated. CODE STATUS again discussed with the . Patient showed me MOLST paper, signed by questionable, and Dr. Rodríguez patient states CPR and full code. Patient is high risk of fall and may have head injury on fall other catastrophic consequences which was discussed with the . Code Visit Inpatient E&M: 53832 Subs Hosp L2
--- NOTE | 2018-12-06 17:03 | PN_ITS ---
Patient Problems: Active and Suspected Problems (Last Reviewed 11/29/18 @ 06:25 by Radha Payan) Lung cancer (Acute) Anemia (Acute) Subjective: The patient was supposed to be discharged today. The patient started having epistaxis from right nasal cavity. It is slow continuous oozing from septal region with blood clots. Anterior nasal packing was done. Discharge is held. Vitals/I&O's: Vital Signs Temp Pulse Resp BP Pulse Ox 99.4 F H 69 16 136/57 H 98 12/06/18 14:30 12/06/18 15:00 12/06/18 14:30 12/06/18 14:30 12/06/18 14:30 Oxygen Flow Rate (L/min) 3 Oxygen Delivery Method Nasal Cannula Weight: 156 lb 1.396 oz Body Mass Index (BMI) 26.6 Finger Stick Blood Glucose 126 Intake and Output for Last 24 Hours 12/04/18 12/05/18 12/06/18 23:59 23:59 23:59 Intake Total 1316 / 1316 1400 / 1400 320 / 320 Output Total 425 / 425 475 / 475 Balance 891 / 891 925 / 925 320 / 320 General: Alert, Oriented x3, Cooperative HEENT: Atraumatic, PERRLA, EOMI, Normocephalic Neck: Supple, No JVD, Negative Carotid Bruits Lungs: Clear to auscultation, No rhonchi, No wheeze, No rales, Diminished - Air entry is diffusely diminished. Cardiovascular: Regular rate, Regular Rhythm, Normal S1, Normal S2, No murmurs Abdomen: Bowel Sounds Present, Soft, Non Tender, Non-Distended Extremities: No edema, Capillary Refill Less than 3 Seconds Skin: No rashes, No breakdown Musculoskeletal: No Tenderness to Palpation of Joints or Extremities, Arthritic Changes, Muscle Wasting Neurological: Cranial nerves II-XII grossly intact, Deep Tendon Reflexes 2+/4 and Symmetrical, Neuro grossly intact Psych/Mental Status: Normal Affect, Appropriate Microbiology Past 72 Hours 12/05/18 16:50 Stool Stool Occult Blood (LILY) - Final 12/03/18 08:00 Cyst - Shoulder Gram Stain - Final 12/03/18 08:00 Cyst - Shoulder Wound Culture - Final Staphylococcus epidermidis Laboratory Results 12/06/18 04:50: Sodium 140, Potassium 4.5, Chloride 99, Carbon Dioxide 37.0 H, Anion Gap 4 L, BUN 14, Creatinine 1.07, Estim Creat Clear Calc 58.27, Est GFR (MDRD) Af Amer 88, Est GFR (MDRD) Non-Af 73, BUN/Creatinine Ratio 13.1, Glucose 102, Calcium 8.9 Current Medications Albuterol Sulfate (Ventolin Aerosols) 2.5 mg INHALATION Q2H PRN PRN PRN Reason: SOB &/OR WHEEZING Albuterol/Ipratropium (Duoneb) 3 ml INHALATION Q6HWA.RT [facility] Last Admin: 12/06/18 07:07 Dose: 3 ml Amoxicillin/Clavulanate [facility] ([facility] Aspirin (Aspirin, Baby) 81 mg PO QODAY@0800 [facility] Last Admin: 12/06/18 08:42 Dose: 81 mg Atorvastatin Calcium (Lipitor) 40 mg PO QHS [facility] Last Admin: 12/05/18 21:11 Dose: 40 mg Budesonide (Pulmicort Aerosol) 0.5 mg INHALATION BID.RT [facility] Last Admin: 12/06/18 07:07 Dose: 0.5 mg [facility]ilol (Coreg) [facility] Last Admin: 12/06/18 08:42 Dose: 6.25 mg Furosemide (Lasix) 80 mg PO DAILY [facility] Last Admin: 12/06/18 08:42 Dose: 80 mg Furosemide (Lasix) 40 mg PO 1800 [facility] Last Admin: 12/05/18 16:44 Dose: 40 mg Sodium Chloride () 250 mls @ 15 mls/hr IV .[id number] PRN PRN Reason: SALINE FLUSH Last Admin: 12/01/18 22:41 Dose: 15 mls/hr Levothyroxine Sodium (Synthroid) 100 mcg PO DAILY@0600 [facility] Last Admin: 12/06/18 05:07 Dose: 100 mcg Losartan Potassium (Cozaar) 25 mg PO DAILY [facility] Last Admin: 12/06/18 08:42 Dose: 25 mg Magnesium Oxide (Mag-Ox 400) [facility] Last Admin: 12/06/18 08:41 Dose: 400 mg Multivitamins (Multivitamin) [facility] Last Admin: 12/06/18 08:41 Dose: 1 tablet Ondansetron HCl (Zofran) 4 mg IV Q8H PRN PRN PRN Reason: NAUSEA Pantoprazole Sodium (Protonix) 40 mg PO BID [facility] Last Admin: 12/06/18 08:42 Dose: 40 mg Senna/Docusate Sodium (Senokot-S, Shawna-Colace) 2 tablet PO BID [facility] Last Admin: 12/06/18 08:41 Dose: Not Given Sodium Chloride () 10 - 40 ml IV UD PRN PRN Reason: SALINE FLUSH Last Admin: 12/06/18 11:32 Dose: 10 ml Medical Necessity - Tobacco Use Smoking Status: Former smoker Tobacco Use: Non-smoker Assessment/Plan All Active Problems (Last Reviewed 11/29/18 @ 06:25 by Radha Payan) Lung cancer (Acute) Anemia (Acute) Skin tear of left forearm without complication (Acute) Skin tear of right forearm without complication (Acute) Lesion of pelvic bone (Acute) Cancer of upper lobe of left lung (Acute) Pneumothorax after biopsy (Acute) Shortness of breath (Acute) Left ventricular thrombus (Acute) Laceration of right elbow without complication (Acute) Abrasion of skin (Acute) Hx of colonoscopy (Resolved) Diverticula of colon (Acute) SOB (shortness of breath) (Acute) Acute respiratory failure with hypoxia (Resolved) Acute on chronic respiratory failure with hypoxia (Resolved) COPD with acute exacerbation (Resolved) CAP (community acquired pneumonia) (Resolved) Chronic respiratory failure with hypoxia and hypercapnia (Resolved) This is a 63-year-old gentleman with history of non-small cell lung cancer status post chemotherapy and prophylactic whole brain radiation, hyponatremia, chronic hypoxic respiratory failure on 3 L of oxygen was admitted with confusion. Lateral rapid response was called on the day of admission the suspicion of generalized tonic-clonic seizure. Sodium level was 121. GCS 3. Patient was transferred to ICU. 1. acute hypercapnic respiratory failure * resolved * Patient on baseline 3 L of oxygen. * may have be due post-ictal period + COPD + aspiration * resolved * extubated, but required BiPAP rescue Epistaxis mostly secondary to 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 Lovenox and Coumadin: Lovenox and Coumadin are being held. Anterior nasal packing done. Discharge is canceled. Watch out. CBC ordered. 2. Acute seizure: * may have been d/t hyponatremia * EEG negative for seizure 3. Aspiration pneumonia * Unasyn, change to Augmentin and treat through the * pulm toilet 4. Hyponatremia * overall, improved * off hypertonic saline * nephrology following. * maybe SIADH. * Along with the nephrology as an outpatient for TSH and serum cortisol. 5. NSCLC * follow up with oncology 6. pAfib * stable. anticoagulated. * documented that patient has LV thrombus, but unable to locate it in echos, LHC and cardiology notes. 7. Thrombocytopenia * Platelet count ranged between 100-140. Patient * Monitor CBC. Chronic anemia mostly secondary to 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/Coumadin patient denies active GI bleed including hematemesis and melena/hematochezia: Hemoglobin daily between 7 to 8 g%. 8. VTE prophylaxis: anticoagulated. CODE STATUS again discussed with the . Patient showed me MOLST paper, signed by questionable, and Dr. Rodríguez patient states CPR and full code. Patient is high risk of fall and may have head injury on fall other catastrophic consequences which was discussed with the . Code Visit Inpatient E&M: 63799 Subs Hosp L2
[2018-12-06] MEDS: Furosemide 40 MG Tablet PO (17:15)
[2018-12-06] MEDS: Amox/Clavulanate 875 MG Tablet PO (17:15)
[2018-12-06 18:26] LABS: Absolute Lymphocyte Count 0.78 X10^3/ul (0.83-4.51); Absolute Neutrophil Count 2.7 X10^3/uL (2.0-7.7); Basophil# 0.02 X10^3/uL; Basophil% 0.5 % (0-1); Eosinophil# 0.13 X10^3/uL; Eosinophils% 3.2 % (0-5); Hematocrit 24.5 % (40-54); Hemoglobin 7.8 g/dl (13.0-16.5); Lymphocyte # 0.78 X10^3/ul (4.0); Lymphocyte % 19.1 % (19-41); Mean Corp Hgb Conc 31.8 g/gl (32-36); Mean Corpuscular Hgb 32.5 pg (27.0-32.0); Mean Corpuscular Volume 102.1 fL (80-94); Mean Platelet Vol. 8.9 fl (6.2-12.0); Monocyte% 9.8 % (0-10); Neutrophil # 2.74 X10^3/uL (2.7-7.7); Neutrophil % 67.2 % (47-70); Platelet Count 111 K/mm3 (150-450); RBC Distribution Width CV 17.8 % (11.6-14.6); RBC Distribution Width SD 66.9 fl (35.1-43.9); White Blood Count 4.1 K/mm3 (4.4-11.0)
[2018-12-06 18:28] LABS: Differential Indicated SCAN CRITERIA MET; POSITIVE COUNT NO; POSITIVE DIFFERENTIAL NO; POSITIVE MORPHOLOGY YES
[2018-12-06 18:48] LABS: Differential Comment SCANNED
[2018-12-06] MEDS: Atorvastatin Calcium 40 MG Tablet PO (21:00)
[2018-12-06] MEDS: Ibuprofen 600 MG Tablet PO (22:36)
[2018-12-07] VITALS (9 sets, daily range): BP systolic 119–162; BP diastolic 48–73; PULSE 73–81; RESP 16–19; TEMP 36.6–37; O2SAT 98–100
[2018-12-07] MEDS: oxyCODONE 5 MG Tablet PO (01:07)
[2018-12-07] MEDS: Levothyroxine 100 MCG Tablet PO (05:46)
[2018-12-07] MEDS: Ipratropium/Albuterol Sulfate 3 ML AMPUL.NEB INHALATION ×2 (07:12→13:17)
[2018-12-07] MEDS: Budesonide Respules 0.5 MG/2 ML AMPUL.NEB. INHALATION (07:13)
[2018-12-07 07:16] LABS: Absolute Lymphocyte Count 0.56 X10^3/ul (0.83-4.51); Absolute Neutrophil Count 3.7 X10^3/uL (2.0-7.7); Basophil# 0.03 X10^3/uL; Basophil% 0.6 % (0-1); Eosinophil# 0.19 X10^3/uL; Eosinophils% 3.8 % (0-5); Hematocrit 23.5 % (40-54); Hemoglobin 7.5 g/dl (13.0-16.5); Lymphocyte # 0.56 X10^3/ul (4.0); Lymphocyte % 11.2 % (19-41); Mean Corp Hgb Conc 31.9 g/gl (32-36); Mean Corpuscular Hgb 32.9 pg (27.0-32.0); Mean Corpuscular Volume 103.1 fL (80-94); Mean Platelet Vol. 8.9 fl (6.2-12.0); Monocyte# 0.51 X10^3/uL; Monocyte% 10.2 % (0-10); Platelet Count 114 K/mm3 (150-450); RBC Distribution Width CV 17.5 % (11.6-14.6); RBC Distribution Width SD 65.8 fl (35.1-43.9); Red Blood Count 2.28 M/mm3 (4.6-6.2)
[2018-12-07 07:18] LABS: Differential Indicated SCAN CRITERIA MET; POSITIVE COUNT NO; POSITIVE DIFFERENTIAL YES; POSITIVE MORPHOLOGY YES
[2018-12-07 07:45] LABS: Magnesium 1.8 mg/dL (1.6-2.6)
[2018-12-07] MEDS: Carvedilol 6.25 MG Tablet PO (08:07)
[2018-12-07] MEDS: Pantoprazole Sodium 40 MG Tablet PO (08:07)
[2018-12-07] MEDS: Multivitamins,Therapeutic Tablet 1 TABLET PO (08:07)
[2018-12-07] MEDS: Amox/Clavulanate 875 MG Tablet PO (08:07)
[2018-12-07] MEDS: Magnesium Oxide 400 MG Tablet PO (08:07)
[2018-12-07] MEDS: Losartan Potassium 25 MG Tablet PO (08:07)
[2018-12-07] MEDS: Furosemide 80 MG Tablet PO (08:08)
[2018-12-07 09:39] LABS: Differential Comment SCANNED
[2018-12-07 09:41] LABS: Anisocytosis 2+; Macrocytosis 1+; Microcytosis 1+
--- NOTE | 2018-12-07 10:45 | RAD_ITS ---
STUDY: X-RAY - PELVIS AND RIGHT HIP REASON FOR EXAM: Right groin pain. TECHNIQUE: 2 views of the pelvis and hip. COMPARISON: None. FINDINGS: There is vascular calcification. There is a small soft tissue calcification adjacent to the right greater trochanter. Normal bilateral iliac wings, sacroiliac joints and visualized sacrum. Normal bilateral superior and inferior pubic rami. Normal pubic symphysis. Normal bilateral ischial tuberosities. Normal visualized femoral head. Normal acetabulum. Normal hip joint. RAD/HIP, UNI W/ Pelvis 2-3 Views IMPRESSION: Small soft tissue calcification adjacent to the right greater trochanter. Vascular calcification. Otherwise, unremarkable x-ray examination of the pelvis and right hip. Electronically Signed: Arie Perez MD at 11:24 EDT Tel , Service support ,
--- NOTE | 2018-12-07 11:44 | PCM.TXEXTCAR ---
- Diet 12/01/18 16:01 Diet: Cardiac/Low Cholesterol Food consistency:: Regular Liquid Consistency:: Regular/Thin - Routine Orders/Code Status Suppository Type: Dulcolax 10mg Suppository Frequency: Daily PRN Routine Lab Work: CBC - on 12/09/18, BMP - on 12/09/18, INR - on 12/09/18 - Wound(s) RFA Wound Type: Abrasion L Elbow Wound Type: Abrasion LT SHOULER Wound Type: CYST Right FA Wound Type: Skin Tear - Therapies Weight Bearing: Weight bearing as tolerated Extremity Affected:: Bilateral Lower Physical Therapy: Eval and Treat Occupational Therapy: Eval and Treat - Allergies/Procedures Done in Hospital Allergies/Adverse Reactions: Allergies No Known Allergies Allergy (Verified 11/29/18 06:24) - Type of Care/Length of Stay Estimated LOS: Convalescent Care Less Than 30 days Type of Care Needed: Skilled Rehab Potential: Good Prognosis: Good - Additional Orders/Day of Discharge Day of Discharge: 12/07/18 - Dietary and Speech Recommendations Dietitian Recommendations/Changes: Suggest diet change to cardiac/low sodium w/ fluid restriction as indicated. - Follow Up Care Primary Care Physician: Joseluis Foote III, MD [Primary Care Provider] - Please follow up with your Primary Care Physician in: IN 1 WEEK Please Follow Up With: Ben Murcia DO When: For lung cancer Please Follow Up With: Clovis Rodríguez MD When: in 4 weeks Please Follow Up With: Ivelisse North PA When: FOR CAD, CHF Please Follow Up With: Bhanu Maloney MD When: FOR hyponatremia and SIADH
--- NOTE | 2018-12-07 11:53 | CASEMGMT ---
Per Dr. Mancini, pt now would like to go to a SNF d/t groin/leg pain and difficulty ambulating at this time. This RN CM to room to speak with pt/ at this time and pt states that he would like to go to TCU at discharge. Corey SW aware and call to Vania in TCU. Per Vania in TCU, there is a bed available today and Dr. Mancini states pt is able to go today. Pt/ updated at this time, voice understanding. Pt/ voice no further questions/concerns/needs at this time. Pt awaiting dispo. Reji RN CM
--- NOTE | 2018-12-07 12:45 | CASEMGMT ---
Per physician patient and are asking about patient going to TCU. SW spoke with Vania and she has a bed. RN CM notified patient and his . RN was also notified. Plan: [facility] TCU under skilled level of care. Arianne BASILIO
--- NOTE | 2018-12-07 12:46 | PN.RENAL_ITS ---
Patient Problems: Active and Suspected Problems (Last Reviewed 11/29/18 @ 06:25 by Radha Payan) Lung cancer (Acute) Anemia (Acute) Subjective: no new events - Physical Exam General: Alert, Oriented x3, Cooperative HEENT: Atraumatic, PERRLA, EOMI, Normocephalic Neck: Supple, No JVD, Negative Carotid Bruits Lungs: Clear to auscultation, Normal air movement Cardiovascular: Regular rate, No murmurs Abdomen: Bowel Sounds Present, Soft, Non Tender Extremities: No edema, Capillary Refill Less than 3 Seconds Skin: No rashes, No breakdown Musculoskeletal: No Tenderness to Palpation of Joints or Extremities Neurological: Cranial nerves II-XII grossly intact Psych/Mental Status: Normal Affect, Appropriate Vital Signs Temp Pulse Resp BP Pulse Ox 98.3 F 78 18 141/73 H 99 12/07/18 08:02 12/07/18 11:03 12/07/18 08:02 12/07/18 08:02 12/07/18 08:02 Oxygen Flow Rate (L/min) 3 Oxygen Delivery Method Nasal Cannula Weight: 70.5 kg Body Mass Index (BMI) 26.6 Finger Stick Blood Glucose 126 Intake and Output for Last 24 Hours 12/05/18 12/06/18 12/07/18 23:59 23:59 23:59 Intake Total 1400 / 1400 693 / 693 30 / 30 Output Total 475 / 475 175 / 175 Balance 925 / 925 693 / 693 -145 / -145 Microbiology Past 72 Hours 12/05/18 16:50 Stool Occult Blood (LILY) - Final Stool 12/03/18 08:00 Gram Stain - Final Cyst - Shoulder Wound Culture - Final Staphylococcus epidermidis Laboratory Tests Past 24 Hrs 12/06/18 12/07/18 12/07/18 17:52 06:15 06:15 WBC 4.1 L 5.0 RBC 2.40 L 2.28 L Hgb 7.8 L 7.5 L Hct 24.5 L 23.5 L MCV 102.1 H 103.1 H MCH 32.5 H 32.9 H MCHC 31.8 L 31.9 L RDW 17.8 H 17.5 H RDW Differential 66.9 H 65.8 H Plt Count 111 L 114 L MPV 8.9 8.9 Immature Gran % (Auto) 0.200 0.200 Neut % (Auto) 67.2 74.0 H Lymph % (Auto) 19.1 11.2 L [place] % (Auto) 9.8 10.2 H Eos % (Auto) 3.2 3.8 Baso % (Auto) 0.5 0.6 Absolute Neuts (auto) 2.7 3.7 Absolute Lymphs (auto) 0.78 L 0.56 L Total Counted Not Reportable Not Reportable Differential Comment SCANNED SCANNED Anisocytosis 2+ Microcytosis 1+ Macrocytosis 1+ Magnesium 1.8 Medical Necessity - Tobacco Use Smoking Status: Former smoker Tobacco Use: Non-smoker Assessment/Plan All Active Problems (Last Reviewed 11/29/18 @ 06:25 by Radha Payan) Lung cancer (Acute) Anemia (Acute) Skin tear of left forearm without complication (Acute) Skin tear of right forearm without complication (Acute) Lesion of pelvic bone (Acute) Cancer of upper lobe of left lung (Acute) Pneumothorax after biopsy (Acute) Shortness of breath (Acute) Left ventricular thrombus (Acute) Laceration of right elbow without complication (Acute) Abrasion of skin (Acute) Hx of colonoscopy (Resolved) Diverticula of colon (Acute) SOB (shortness of breath) (Acute) Acute respiratory failure with hypoxia (Resolved) Acute on chronic respiratory failure with hypoxia (Resolved) COPD with acute exacerbation (Resolved) CAP (community acquired pneumonia) (Resolved) Chronic respiratory failure with hypoxia and hypercapnia (Resolved) Hyponatremia. 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 some component of fluid overload. sodium is now normal ok to dc today patient prefers to follow up with PCP and oncologist maintain fluid restriction at home may need salt tablets is sodium drops again
[2018-12-07] MEDS: Sodium Chloride 0.65% 1 SPRAY SPRAY.BTL 2 SPRAY NASAL (12:50)
--- NOTE | 2018-12-07 15:58 | PCM.DC.SUM ---
Discharge Date and Diagnosis Date of Admission: 12/01/18 Date of Discharge: 12/07/18 - Primary Discharge Diagnosis Active and Suspected Problems (Last Reviewed 11/29/18 @ 06:25 by Radha Payan) Lung cancer (Acute) Anemia (Acute) - Secondary Discharge Diagnosis Chronic Problems (Last Reviewed 11/29/18 @ 06:25 by Radha Payan) Implantable cardioverter-defibrillator (ICD) in situ (Chronic 12/27/16) [employer] Dynogen EL ICD, model D150; Seriao # [id number] Secondary pulmonary arterial hypertension (Chronic) Nonischemic cardiomyopathy (Chronic) EF 15-20% per heart cath 08/29/2016; 20-35% per echo 12/17/2016 Severe left ventricular systolic dysfunction (Chronic) EF 15-20% per heart cath 08/29/2016; 20-35% per echo 12/17/2016 History of left heart catheterization (Chronic) Mild, nonobstructive CAD per [facility] 08/29/2016 @ [facility] per Dr. Cantrell Atherosclerotic heart disease of [place] coronary artery without angina pectoris (Chronic) Mild, nonobstructive CAD per [facility] 08/29/2016 @ [facility] per Dr. Cantrell PVD (peripheral vascular disease) (Chronic) Long-term use of high-risk medication (Chronic) Stage 3 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) FEV1 31 PND (paroxysmal nocturnal dyspnea) (Chronic) Hyperlipidemia (Chronic) [facility] current use of anticoagulant (Chronic) Psoriatic arthritis (Chronic) Acne cystica (Chronic) CHF (congestive heart failure), NYHA class I (Chronic) Pulmonary hypertension (Chronic) RVSP 47mm hg per echo 08/28/2016 (unable to estimate per Echo 12/17/2016) Hospital Course and Treatment Operations: - - Status post chest tube after lung biopsy removal Summary of Care Provided: [] This is a 63-year-old gentleman with history of non-small cell lung cancer status post chemotherapy and prophylactic whole brain radiation, hyponatremia, chronic hypoxic respiratory failure on 3 L of oxygen was admitted with confusion. Later ON, rapid response was called on the day of admission the suspicion of generalized tonic-clonic seizure. Sodium level was 121. GCS 3. Patient was transferred to ICU. 1. acute hypercapnic respiratory failure resolved Patient on baseline 3 L of oxygen. may have be due post-ictal period + COPD + aspiration resolved extubated, but required BiPAP rescue Epistaxis mostly secondary to 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 Lovenox and Coumadin: Lovenox and Coumadin are being held. Anterior nasal packing was done and epistaxis controlled. After 24 hours nasal packing removed. No further bleeding. Repeat H&H is stable between 7 to 8 g%. Hematocrit about 24. Patient is discharged off anticoagulant. Right musculoskeletal thigh pain most probably quadriceps muscle strain: Right hip x-ray including pelvis was done does not show acute change but chronic small soft tissue calcification adjacent to right greater trochanter and vascular calcification 2. Acute seizure: may have been d/t hyponatremia EEG negative for seizure 3. Aspiration pneumonia Unasyn, change to Augmentin and treat through the 25th pulm including incentive spirometry. Hygiene advised 4. Hyponatremia overall, improved off hypertonic saline nephrology following. maybe SIADH. Along with the nephrology as an outpatient for TSH and serum cortisol. 5. NSCLC follow up with oncology 6. pAfib stable. Currently 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 has been held secondary to epistaxis and severe acute blood loss anemia documented that patient has LV thrombus, but unable to locate it in echos, LHC and cardiology notes. 7. Thrombocytopenia Platelet count ranged between 100-140. Patient Monitor CBC. Chronic anemia mostly secondary to 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/Coumadin patient denies active GI bleed including hematemesis and melena/hematochezia: Hemoglobin daily between 7 to 8 g%. 8. VTE prophylaxis: Bilateral SCDs CODE STATUS again discussed with the . Patient showed me MOLST paper, signed by questionable, and Dr. Rodríguez patient states CPR and full code. Patient is high risk of fall and may have head injury on fall other catastrophic consequences which was discussed with the . Discharge medication reconciliation done. Discharge follow-up instructions completed. Discharge process discussed with the patient and all questions were answered to patient's satisfaction. Patient is discharged off 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. Follow-up CBC, BMP and PT/INR in TCU in 2 days. Patient has been advised that he is at high risk of rebleeding on 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. Total time spent, exact 35 minutes on discharge meds reconciliation, examination, review of imaging and blood test and discussion with the patient on follow-up instructions. Microbiology Past 72 Hours 12/05/18 16:50 Stool Stool Occult Blood (LILY) - Final 12/03/18 08:00 Cyst - Shoulder Gram Stain - Final 12/03/18 08:00 Cyst - Shoulder Wound Culture - Final Staphylococcus epidermidis Laboratory Results 12/06/18 17:52: WBC 4.1 L, RBC 2.40 L, Hgb 7.8 L, Hct 24.5 L, MCV 102.1 H, MCH 32.5 H, MCHC 31.8 L, RDW 17.8 H, RDW Differential 66.9 H, Plt Count 111 L, MPV 8.9, Immature Gran % (Auto) 0.200, Neut % (Auto) 67.2, Lymph % (Auto) 19.1, Mason % (Auto) 9.8, Eos % (Auto) 3.2, Baso % (Auto) 0.5, Absolute Neuts (auto) 2.7, Absolute Lymphs (auto) 0.78 L, Total Counted Not Reportable, Differential Comment SCANNED 12/07/18 06:15: WBC 5.0, RBC 2.28 L, Hgb 7.5 L, Hct 23.5 L, MCV 103.1 H, MCH 32.9 H, MCHC 31.9 L, RDW 17.5 H, RDW Differential 65.8 H, Plt Count 114 L, MPV 8.9, Immature Gran % (Auto) 0.200, Neut % (Auto) 74.0 H, Lymph % (Auto) 11.2 L, Mason % (Auto) 10.2 H, Eos % (Auto) 3.8, Baso % (Auto) 0.6, Absolute Neuts (auto) 3.7, Absolute Lymphs (auto) 0.56 L, Total Counted Not Reportable, Differential Comment SCANNED, Anisocytosis 2+, Microcytosis 1+, Macrocytosis 1+ 12/07/18 06:15: Magnesium 1.8 Subjective: Patient had epistaxis controlled. No further oozing or bleeding. H&H is stable. No tachycardia or hypotension. Anterior nasal packing removed. Patient complain of pain in the right groin and anterior aspect of thigh. It started when he was doing physical therapy. - Physical Exam General: Alert, Oriented x3, Cooperative HEENT: Atraumatic, PERRLA, EOMI, Normocephalic Neck: Supple, No JVD, Negative Carotid Bruits, Negative Hepatojugular Reflux Lungs: Clear to auscultation, No rhonchi, No wheeze, No rales, Diminished Cardiovascular: Regular rate, Regular Rhythm, Normal S1, Normal S2, No murmurs Abdomen: Bowel Sounds Present, Soft, Non Tender, Non-Distended Extremities: No edema, Capillary Refill Less than 3 Seconds Skin: - - Diffuse bruises and ecchymosis present over upper extremities. Thin the skin Musculoskeletal: No Tenderness to Palpation of Joints or Extremities, Muscle Wasting Neurological: Cranial nerves II-XII grossly intact, Deep Tendon Reflexes 2+/4 and Symmetrical, Neuro grossly intact Psych/Mental Status: Normal Affect, Appropriate Vital Signs Temp Pulse Resp BP Pulse Ox 98.6 F 82 18 114/46 L 92 12/06/18 08:37 12/06/18 08:37 12/06/18 08:37 12/06/18 08:37 12/06/18 08:37 Oxygen Flow Rate (L/min) 3 Oxygen Delivery Method Nasal Cannula Weight: 156 lb 1.396 oz Body Mass Index (BMI) 26.6 Finger Stick Blood Glucose 126 Intake and Output for Last 24 Hours 12/04/18 12/05/18 12/06/18 23:59 23:59 23:59 Intake Total 1316 / 1316 1400 / 1400 140 / 140 Output Total 425 / 425 475 / 475 Balance 891 / 891 925 / 925 140 / 140 Microbiology Past 72 Hours 12/05/18 16:50 Stool Occult Blood (LILY) - Final Stool 12/03/18 08:00 Gram Stain - Final Cyst - Shoulder Wound Culture - Final Staphylococcus epidermidis Laboratory Tests Past 24 Hrs 12/06/18 04:50 Sodium 140 Potassium 4.5 Chloride 99 Carbon Dioxide 37.0 H Anion Gap 4 L BUN 14 Creatinine 1.07 Estim Creat Clear Calc 58.27 Est GFR (MDRD) Af Amer 88 Est GFR (MDRD) Non-Af 73 BUN/Creatinine Ratio 13.1 Glucose 102 Calcium 8.9 Discharge Activity: May Not Drive Home Medications: Medications to take at Discharge Hydroxychloroquine [Plaquenil] 200 mg PO BIDCM 08/27/16 Multivitamin [Multiple Vitamins] 1 ea PO DAILY 08/27/16 fluticasone propionate 50 mcg/actuation nasal spray,suspension 2 spray INTRANASAL BID PRN PRN g 10/15/17 atorvastatin 40 mg tablet 40 mg PO QHS #90 tab 07/27/18 atezolizumab 1,200 mg/20 mL (60 mg/mL) intravenous solution 60 mg IV UD ml 08/27/18 levothyroxine 100 mcg tablet 100 mcg PO DAILY 09/28/18 aclidinium bromide 400 mcg/actuation breath activated powder inhaler 1 inh INHALATION BID 10/07/18 albuterol sulfate HFA 90 mcg/actuation aerosol inhaler 2 puff INHALATION Q4H PRN PRN g 11/25/18 budesonide-formoterol HFA 160 mcg-4.5 mcg/actuation aerosol inhaler 2 puff INHALATION BID 11/25/18 Carvedilol 6.25 mg PO BID 12/01/18 Cetirizine HCl [Zyrtec] 10 mg PO DAILY 12/01/18 Cholecalciferol (VIT D3) [Vitamin D3] 1,000 unit PO BID 12/01/18 Furosemide 80 mg PO DAILY 12/01/18 Furosemide [Lasix] 40 mg PO QHS 12/01/18 Losartan Potassium [Cozaar] 25 mg PO DAILY 12/01/18 Omeprazole 40 mg PO DAILY 12/01/18 Senna/Docusate Sodium [Senokot-S] 2 tab PO BID PRN PRN tab 12/06/18 Amoxicillin/Potassium Clav [Amox Tr-K Clv 875-125 mg Tab] 1 each PO BID 12/07/18 Magnesium Oxide [Mag-Ox 400] 400 mg PO BIDCM 12/07/18 Potassium Chloride [K-Dur] 40 meq PO BID 12/07/18 Sodium Chloride 0.65% [[place] Nasal [place]] 2 spray NASAL TID 12/07/18 Warfarin Sodium 5 mg PO SUSA #0 12/07/18 Warfarin Sodium [Coumadin] 7.5 mg PO MOTUWETHFR #0 12/07/18 Primary Care Physician: Joseluis Foote III, MD [Primary Care Provider] - Please follow up with your Primary Care Physician in: IN 1 WEEK Please Follow Up With: Ben Murcia DO When: For lung cancer Please Follow Up With: Clovis Rodríguez MD When: in 4 weeks Please Follow Up With: Case Cantrell MD When: FOR CAD, CHF Please Follow Up With: Bhanu Maloney MD When: FOR hyponatremia and SIADH Medical Necessity - Tobacco Use Smoking Status: Former smoker Tobacco Use: Non-smoker Meaningful Use Info Meaningful Use Diagnoses (Choose all that apply): None applicable Code Visit Inpatient E&M: 68675 Disch Hosp
== END 2018-12-07 13:46 | disposition skilled nursing facility (03) | DRG 643 ==
LOC: ED 13:27 → PCU 15:21 → ICU 19:26 → PCU 12-04 01:18
PROVIDERS: Internal Medicine; Internal Medicine Critical Care Medicine; Admitting Provider Internal Medicine; Emergency Provider Emergency Medicine; Family Provider Family Medicine; PCP Family Medicine; Visit Provider Internal Medicine
DX: E22.2 Syndrome of inappropriate secretion of antidiuretic hormone (principal); J96.21 Acute and chronic respiratory failure with hypoxia; J69.0 Pneumonitis due to inhalation of food and vomit; G93.41 Metabolic encephalopathy; C34.90 Malignant neoplasm of unspecified part of unspecified bronchus or lung; C79.51 Secondary malignant neoplasm of bone; I42.9 Cardiomyopathy, unspecified; D68.32 Hemorrhagic disorder due to extrinsic circulating 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; I50.22 Chronic systolic (congestive) heart failure; I27.21 Secondary pulmonary arterial hypertension; I25.10 Atherosclerotic heart disease of native coronary artery without angina pectoris; I73.9 Peripheral vascular disease, unspecified; E78.5 Hyperlipidemia, unspecified; L40.50 Arthropathic psoriasis, unspecified; D64.9 Anemia, unspecified; D69.6 Thrombocytopenia, unspecified; R04.0 Epistaxis; T45.515A Adverse effect of 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, initial encounter; Z92.3 Personal history of irradiation; Z95.810 Presence of automatic (implantable) cardiac defibrillator; Z87.891 Personal history of nicotine dependence; Z99.81 Dependence on supplemental oxygen; R56.9 Unspecified convulsions; J44.9 Chronic obstructive pulmonary disease, unspecified; L70.0 Acne vulgaris; Z79.899 Other long term (current) drug therapy
CPT/HCPCS: 31500; 31720; 36415; 36569; 36600; 70470; 71045; 71046; 73502; 74018; 80048; 81001; 82274; 82550; 82728; 82803; 82962; 83540; 83550; 83735; 83930; 83935; 84295; 84300; 84478; 84484; 85014; 85018; 85025; 85027; 85045; 85610; 86850; 86900; 86920; 86922; 87070; 87077; 87186; 87205; 93005; 94002; 94003; 94640; 94660; 94667; 94668; 95831; 97110; 97116; 97162; 97165; 97530; 99251; 99282; J7030; J7040; J7050; P9016; Q9967; A4216; G0463; J0295

== ENCOUNTER 2018-12-07 14:01 | Inpatient (IN) | payer MEDICARE, OTHER, SELFPAY ==
[2018-12-06 12:00] VITALS: BMI 26.6
[2018-12-07 14:10] VITALS: BP 116/56; PULSE 78; PULSE 84; RESP 18; TEMP 37.1; O2SAT 100; O2SAT 94
--- NOTE | 2018-12-07 14:12 | NURSING ---
pt arrived via WC from PCU at side.
[2018-12-07 14:53] VITALS: O2SAT 99
[2018-12-07 15:29] VITALS: BMI 25.9
[2018-12-07 16:00] VITALS: BP 128/66; PULSE 82; RESP 18; TEMP 37.1; O2SAT 96
[2018-12-07 16:04] VITALS: BMI 25.9
--- NOTE | 2018-12-07 18:21 | NURSING ---
Dr Infante would like coumadin to remain on hold for now. pt just had nasal packing removed today at noon on acute side before arrival to TCU
--- NOTE | 2018-12-07 18:43 | NURSING ---
Pt c/o tongue being sore d/t him biting it per Pt statement. Will report to Loren LIMA.
[2018-12-07] MEDS: Magnesium Oxide 400 MG Tablet PO (18:48)
[2018-12-07] MEDS: Amox/Clavulanate 875 MG Tablet PO (18:48)
[2018-12-07] MEDS: Hydroxychloroquine 200 MG Tablet PO (18:48)
[2018-12-07] MEDS: Carvedilol 6.25 MG Tablet PO (18:48)
[2018-12-07] MEDS: Fluticasone/Salmeterol 232-14 Inhaler 1 PUFF IH (18:49)
[2018-12-07] MEDS: Furosemide 40 MG Tablet PO (18:50)
[2018-12-07] MEDS: Acetaminophen 500 MG Tablet 1000 MG PO (20:51)
[2018-12-07] MEDS: Atorvastatin Calcium 40 MG Tablet PO (20:53)
[2018-12-07] MEDS: Menthol/Lanolin/Calamine/Znox 113 GM Tube 1 APPLIC TOPICAL (20:57)
--- NOTE | 2018-12-07 22:43 | HP.PCM_ITS ---
Problem List (1) Debility Status: Acute (2) Epistaxis Status: Acute (3) Aspiration pneumonia Status: Acute (4) Seizure Status: Acute (5) Hyponatremia Status: Acute (6) Chronic systolic (congestive) heart failure Status: Chronic (7) Coronary artery disease Status: Chronic (8) Chronic obstructive pulmonary disease Status: Chronic (9) Hypothyroidism Status: Chronic (10) Allergic rhinitis Status: Chronic (11) GERD (gastroesophageal reflux disease) Status: Chronic (12) Hypokalemia Status: Chronic (13) LV (left ventricular) mural thrombus Status: Chronic (14) Lung cancer Status: Chronic Qualifiers: Laterality: unspecified laterality Lung location: unspecified part of lung Qualified Code(s): C34.90 - Malignant neoplasm of unspecified part of unspecified bronchus or lung (15) Hyperlipidemia Status: Chronic (16) Psoriatic arthritis Status: Chronic (17) Pulmonary hypertension Status: Chronic Comment: RVSP 47mm hg per echo 08/28/2016 (unable to estimate per Echo 12/17/2016) History of Present Illness Date of Admission: 12/07/18 Chief Complaint: Here for rehabilitation, strengthening, prior to discharge home with spouse. The patient is a 67 year old Male with below past medical history presented to [facility] Emergency Department 12/01/2018 with weakness, fatigue. 12/01/2018 CT brain showed chronic involutional changes. 12/01/2018 EKG sinus rhythm with first degree AV block, prolonged QT. Lung cancer history, radiation treatment x 2 weeks. Hand twitching, confused. Sodium 118, Chest X-ray okay. Normal saline gentle hydration. 12/01/2018 Admit to Hospital. Hyponatremia from SIADH, fluid sodium restriction started, then hypertonic saline later on. Lung cancer, brain metastasis, radiation treatments to brain. Patient seized, intubated, transferred to ICU. Unasyn IV added for aspiration pneumonia. 12/03/2018 EEG normal. Baseline 3 Liters oxygen, Extubated, but required BiPAP rescue. Epistaxis secondary to Lovenox, coumadin, resolved with packing, off anticoagulation. Right hip pain, X-ray negative for fracture. Seizure secondary to hyponatremia, EEG okay. Unasyn changed to Augmentin for aspiration pneumonia thru 12/09/2018. Hyponatremia improved, off hypertonic saline. Hold anticoagulation due to high risk of bleeding. 12/07/2018 Admit to TCU with debility, here for rehabilitation, strengthening, prior to discharge home with spouse. Past Medical History Past Medical History (Chronic Problems): Chronic Problems (Last Reviewed 11/29/18 @ 06:25 by Radha Payan) Lung cancer (Chronic) Chronic systolic (congestive) heart failure (Chronic) Coronary artery disease (Chronic) Chronic obstructive pulmonary disease (Chronic) Hypothyroidism (Chronic) Allergic rhinitis (Chronic) GERD (gastroesophageal reflux disease) (Chronic) Hypokalemia (Chronic) LV (left ventricular) mural thrombus (Chronic) Implantable cardioverter-defibrillator (ICD) in situ (Chronic 12/27/16) [employer] Dynogen EL ICD, model D150; Seriao # [id number] Secondary pulmonary arterial hypertension (Chronic) Nonischemic cardiomyopathy (Chronic) EF 15-20% per heart cath 08/29/2016; 20-35% per echo 12/17/2016 Severe left ventricular systolic dysfunction (Chronic) EF 15-20% per heart cath 08/29/2016; 20-35% per echo 12/17/2016 History of left heart catheterization (Chronic) Mild, nonobstructive CAD per [facility] 08/29/2016 @ [facility] per Dr. Cantrell Atherosclerotic heart disease of [place] coronary artery without angina pectoris (Chronic) Mild, nonobstructive CAD per [facility] 08/29/2016 @ [facility] per Dr. 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) Psoriatic arthritis (Chronic) Acne cystica (Chronic) CHF (congestive heart failure), NYHA class I (Chronic) Pulmonary hypertension (Chronic) RVSP 47mm hg per echo 08/28/2016 (unable to estimate per Echo 12/17/2016) Medical History: Medical History (Last Reviewed 11/29/18 @ 06:25 by Radha Payan) Left ventricular thrombus (Acute) I51.3 Nonischemic cardiomyopathy (Chronic) I42.8 EF 15-20% per heart cath 08/29/2016; 20-35% per echo 12/17/2016 Severe left ventricular systolic dysfunction (Chronic) I51.9 EF 15-20% per heart cath 08/29/2016; 20-35% per echo 12/17/2016 Atherosclerotic heart disease of [place] coronary artery without angina pectoris (Chronic) I25.10 Mild, nonobstructive CAD per [facility] 08/29/2016 @ [facility] per Dr. 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) Z79.01 Acute on chronic respiratory failure with hypoxia (Resolved) J96.21 Psoriatic arthritis (Chronic) L40.50 CHF (congestive heart failure), NYHA class I (Chronic) I50.9 Pulmonary hypertension (Chronic) I27.2 RVSP 47mm hg per echo 08/28/2016 (unable to estimate per Echo 12/17/2016) Anemia D64.9 Arthritis M19.90 Cancer C80.1 Heart disease I51.9 Lung disease J98.4 SOB (shortness of breath) R06.02 CAP (community acquired pneumonia) (Resolved) J18.9 Chronic respiratory failure with hypoxia and hypercapnia (Resolved) J96.11, J96.12 Allergies No Known Allergies Allergy (Verified 11/29/18 06:24) Home Medications: Ambulatory Orders Medication Instructions Recorded Hydroxychloroquine [Plaquenil] 200 mg PO BIDCM 08/27/16 Multivitamin [Multiple Vitamins] 1 ea PO DAILY 08/27/16 fluticasone propionate 50 2 spray INTRANASAL BID PRN PRN g 10/15/17 mcg/actuation nasal spray,suspension atorvastatin 40 mg tablet 40 mg PO QHS #90 tab 07/27/18 atezolizumab 1,200 mg/20 mL (60 60 mg IV UD ml 08/27/18 mg/mL) intravenous solution levothyroxine 100 mcg tablet 100 mcg PO DAILY 09/28/18 aclidinium bromide 400 1 inh INHALATION BID 10/07/18 mcg/actuation breath activated powder inhaler albuterol sulfate HFA 90 2 puff INHALATION Q4H PRN PRN g 11/25/18 mcg/actuation aerosol inhaler budesonide-formoterol HFA 160 2 puff INHALATION BID 11/25/18 mcg-4.5 mcg/actuation aerosol inhaler Carvedilol 6.25 mg PO BID 12/01/18 Cetirizine HCl [Zyrtec] 10 mg PO DAILY 12/01/18 Cholecalciferol (VIT D3) [Vitamin 1,000 unit PO BID 12/01/18 D3] Furosemide 80 mg PO DAILY 12/01/18 Furosemide [Lasix] 40 mg PO QHS 12/01/18 Losartan Potassium [Cozaar] 25 mg PO DAILY 12/01/18 Omeprazole 40 mg PO DAILY 12/01/18 Senna/Docusate Sodium [Senokot-S] 2 tab PO BID PRN PRN tab 12/06/18 Amoxicillin/Potassium Clav [Amox 1 each PO BID 12/07/18 Tr-K Clv 875-125 mg Tab] Magnesium Oxide [Mag-Ox 400] 400 mg PO BIDCM 12/07/18 Potassium Chloride [K-Dur] 40 meq PO BID 12/07/18 Sodium Chloride 0.65% [[place] Nasal 2 spray NASAL TID 12/07/18 [place]] Warfarin Sodium 5 mg PO SUSA #0 12/07/18 Warfarin Sodium [Coumadin] 7.5 mg PO MOTUWETHFR #0 12/07/18 Surgical History: Surgical History (Last Reviewed 11/29/18 @ 06:25 by Radha Payan) Implantable cardioverter-defibrillator (ICD) in situ (Chronic) Onset Date: 12/27/16 Z95.810 [employer] Dynogen EL ICD, model D150; Seriao # [id number] History of left heart catheterization (Chronic) Z98.890 Mild, nonobstructive CAD per [facility] 08/29/2016 @ [facility] per Dr. Cantrell Surgical History: pacemaker implantation, - - Left heart catheterization. Psychiatric History: No pertinent psych hx Lives: Spouse/ Significant Other Smoking Status: Former smoker Tobacco Use: Non-smoker Alcohol: None Drugs: None - *Family History Maternal Family History: Family History (Last Reviewed 11/29/18 @ 06:25 by Radha Payan) Mother Heart disease Brother CVA (cerebral vascular accident) Father Cancer Grandmother Diabetes History Items: - - No COPD Paternal Family History: Family History (Last Reviewed 11/29/18 @ 06:25 by Radha Payan) Mother Heart disease Brother CVA (cerebral vascular accident) Father Cancer Grandmother Diabetes History Items: - - No COPD Review of Systems Constitutional: Denies: Chills, Fever, Weight Change HEENT: Denies: Head Aches, Sinus Congestion, Sinus Drainage Cardiovascular: Denies: Chest Pain, Palpitations Respiratory: Denies: Cough, Shortness of breath at rest, Sputum production Gastrointestinal: Denies: Abdominal Pain, Nausea, Vomiting Genitourinary: Denies: Dysuria Musculoskeletal: Reports: Joint Pain - Right hip pain.. Denies: Joint Tenderness Skin: Denies: Rash, Wounds Neurological: Denies: Numbness, Tingling, Focal weakness Psychiatric: Denies: Anxiety, Depression, Homicidal Ideations, Suicidal Ideations Hematologic/ Lymphatic: Denies: Easy Bruising, Easy Bleeding VTE Information - Inpt Only VTE Present on Admission: No VTE Mechan Device Prophylaxis: Knee High FRANCISCO JAVIER Hose VTE Pharm Prophylaxis ordered?: No Reason prophylaxis not ordered:: Medical Contraindication Patient Problems: Active and Suspected Problems (Last Reviewed 11/29/18 @ 06:25 by Radha Payan) Debility (Acute) Epistaxis (Acute) Aspiration pneumonia (Acute) Seizure (Acute) Hyponatremia (Acute) - Physical Exam General: Alert, Oriented x3, Cooperative HEENT: Atraumatic, PERRLA, EOMI, Normocephalic Neck: Supple, No JVD, Negative Carotid Bruits Lungs: Clear to auscultation, Normal air movement Cardiovascular: Regular rate, No murmurs Abdomen: Bowel Sounds Present, Soft, Non Tender Extremities: No edema, Capillary Refill Less than 3 Seconds Skin: No rashes, No breakdown Musculoskeletal: No Tenderness to Palpation of Joints or Extremities Neurological: Cranial nerves II-XII grossly intact Psych/Mental Status: Normal Affect, Appropriate Vital Signs Temp Pulse Resp BP Pulse Ox 98.7 F 82 18 128/66 H 96 12/07/18 16:00 12/07/18 16:00 12/07/18 16:00 12/07/18 16:00 12/07/18 16:00 Oxygen Flow Rate (L/min) 3 Oxygen Delivery Method Nasal Cannula Weight: 70.6 kg Body Mass Index (BMI) 25.9 Finger Stick Blood Glucose 126 Intake and Output for Last 24 Hours 12/05/18 12/06/18 12/07/18 23:59 23:59 23:59 Intake Total 280 / 280 Balance 280 / 280 Assessment/Plan All Active Problems (Last Reviewed 11/29/18 @ 06:25 by Radha Payan) Anemia (Acute) Debility (Acute) Epistaxis (Acute) Aspiration pneumonia (Acute) Seizure (Acute) Hyponatremia (Acute) Skin tear of left forearm without complication (Acute) Skin tear of right forearm without complication (Acute) Lesion of pelvic bone (Acute) Cancer of upper lobe of left lung (Acute) Pneumothorax after biopsy (Acute) Shortness of breath (Acute) Left ventricular thrombus (Acute) Laceration of right elbow without complication (Acute) Abrasion of skin (Acute) Hx of colonoscopy (Resolved) Diverticula of colon (Acute) SOB (shortness of breath) (Acute) Acute respiratory failure with hypoxia (Resolved) Acute on chronic respiratory failure with hypoxia (Resolved) COPD with acute exacerbation (Resolved) CAP (community acquired pneumonia) (Resolved) Chronic respiratory failure with hypoxia and hypercapnia (Resolved) 67 year old male with below past medical history significant for lung cancer with brain mets, hospitalized for hyponatremia, complicated by acute respiratory failure, seizure, epistaxis, aspiration pneumonia, admitted to TCU with debil ity, here for rehabilitation, strengthening, prior to discharge home with spouse. * Debility - PT/OT. * Pain - Tylenol 1000MG Q6H PRN mild pain, Oxycodone 5MG Q4H PRN moderate pain. * Bowel - Miralax 17GM daily, Senna/colace 2 tablets BID, Dulcolax 10MG PA daily PRN. * Pneumonia vaccination - Administer Prevnar 13 and/or Pneumovax 23 as necessary. * DVT prophylaxis - Hold due to epistaxis. * COPD - Albuterol 2.5MG nebulized Q4H PRN, Pulmicort 0.5MG nebulized BID, Duoneb 3ML nebulized BID, Incruse 1 inhalation daily. * Aspiration pneumonia - Augmentin 875MG BID thru 12/09/2018. * Lung cancer with brain mets - Atezolizumab, radiation treatments per Oncology. * Hyperlipidemia - Atorvastatin 40MG QHS. * Systolic congestive heart failure - Coreg 6.25MG BID, Losartan 25MG daily, Lasix 80MG AM, 40MG PM. * Vitamin D deficiency - D3 1000IU BID. * Allergic rhinitis - Flonase 2 sprays BID PRN, Loratadine 10MG daily, [place] nasal spray 2 sprays TID. * Psoriatic arthritis - Plaquenil 200MG BID. * Hypothyroidism - Levothyroxine 100MCG daily. * Hypomagnesemia - Magnesium Oxide 400MG BID. * Skin irritation - Calmoseptine BID bilateral buttocks. * Right hip pain - Medrol dose pack. * Nutrition - MVI daily. * GERD - Pantoprazole 40MG daily * Hypokalemia - KCL ER 40MEQ BID. * LV thrombus - stop Warfarin, high risk of rebleeding epistaxis.
[2018-12-07] MEDS: MethylPREDNISolone DosePak 4 MG BOX PO (22:45)
[2018-12-08] MEDS: Menthol/Lanolin/Calamine/Znox 113 GM Tube 1 APPLIC TOPICAL ×2 (05:14→20:15)
[2018-12-08] MEDS: Umeclidinium Bromide Inhaler 1 PUFF IH (05:15)
[2018-12-08] MEDS: Levothyroxine 100 MCG Tablet PO (05:20)
[2018-12-08] MEDS: Loratadine 10 MG Tablet PO (05:20)
[2018-12-08] MEDS: Losartan Potassium 25 MG Tablet PO (05:20)
[2018-12-08] MEDS: Furosemide 80 MG Tablet PO (05:21)
[2018-12-08] MEDS: Carvedilol 6.25 MG Tablet PO ×2 (05:21→17:46)
[2018-12-08] MEDS: Pantoprazole Sodium 40 MG Tablet PO (05:21)
[2018-12-08] MEDS: Sodium Chloride 0.65% 1 SPRAY SPRAY.BTL 2 SPRAY NASAL ×3 (05:22→20:16)
[2018-12-08] MEDS: Polyethylene Glycol 3350 17 GM PACKET PO (05:23)
[2018-12-08 06:33] LABS: Absolute Lymphocyte Count 0.34 X10^3/ul (0.83-4.51); Absolute Neutrophil Count 6.3 X10^3/uL (2.0-7.7); Eosinophil# 0.01 X10^3/uL; Eosinophils% 0.1 % (0-5); Hemoglobin 7.1 g/dl (13.0-16.5); Lymphocyte # 0.34 X10^3/ul (4.0); Mean Corp Hgb Conc 32.3 g/gl (32-36); Mean Corpuscular Volume 102.3 fL (80-94); Mean Platelet Vol. 9.6 fl (6.2-12.0); Monocyte% 2.9 % (0-10); Neutrophil # 6.25 X10^3/uL (2.7-7.7); Neutrophil % 91.9 % (47-70); Platelet Count 108 K/mm3 (150-450); RBC Distribution Width SD 64.1 fl (35.1-43.9); Red Blood Count 2.15 M/mm3 (4.6-6.2); White Blood Count 6.8 K/mm3 (4.4-11.0)
[2018-12-08 06:34] LABS: Anion Gap 6 (5-15); BUN 18 mg/dL (7-18); BUN/Creat Ratio 12.9 RATIO (10-20); Calcium,Total 9.1 mg/dL (8.5-10.1); Chloride 92 mmol/L (98-107); EST Glomerular Filtration Rate 54 mL/min (>60); Est Glom Filt Rate - Afr Amer 65 mL/min (>60); Estimated Creatinine Clearance 44.54 ml/min; Glucose 148 mg/dL (74-106); Potassium 4.8 mmol/L (3.5-5.1); Sodium Level 136 mmol/L (136-145)
[2018-12-08 06:41] LABS: Differential Indicated SCAN CRITERIA MET; POSITIVE DIFFERENTIAL YES; POSITIVE MORPHOLOGY NO
[2018-12-08 06:55] VITALS: PULSE 82; RESP 20; O2SAT 98
[2018-12-08] MEDS: Ipratropium/Albuterol Sulfate 3 ML AMPUL.NEB INHALATION (06:55)
[2018-12-08] MEDS: Budesonide Respules 0.5 MG/2 ML AMPUL.NEB. INHALATION (06:55)
--- NOTE | 2018-12-08 07:15 | CPS ---
holding pulmicort until 12/12, pt is on a prednisone taper. Duoneb nebulizer tx's switched to inhalers per [facility] protocol, pt takes inhalers at home.
[2018-12-08 08:00] VITALS: O2SAT 94
[2018-12-08] MEDS: Acetaminophen 500 MG Tablet 1000 MG PO (08:22)
[2018-12-08] MEDS: Amox/Clavulanate 875 MG Tablet PO ×2 (08:54→17:46)
[2018-12-08] MEDS: Multivitamins,Therapeutic Tablet 1 TABLET PO (08:54)
[2018-12-08] MEDS: Magnesium Oxide 400 MG Tablet PO ×2 (08:54→17:46)
[2018-12-08] MEDS: MethylPREDNISolone DosePak 4 MG BOX PO ×4 (08:54→20:17)
[2018-12-08] MEDS: Hydroxychloroquine 200 MG Tablet PO ×2 (08:54→17:46)
[2018-12-08] MEDS: Tuberculin,Purif.prot.deriv. 50 TU/ML Vial 5 ML ID (11:44)
[2018-12-08 15:29] VITALS: BP 124/55; PULSE 80; RESP 14; TEMP 36.7; O2SAT 93
[2018-12-08] MEDS: Furosemide 40 MG Tablet PO (17:46)
--- NOTE | 2018-12-08 18:44 | NURSING ---
New order to increase fluid restriction to 1500mL and start ferrex daily.
[2018-12-08] MEDS: Atorvastatin Calcium 40 MG Tablet PO (20:16)
[2018-12-08 20:30] VITALS: PULSE 76; RESP 16; O2SAT 93
[2018-12-09] MEDS: oxyCODONE 5 MG Tablet PO ×2 (00:08→14:01)
[2018-12-09 05:59] LABS: International Normalized Ratio 1.8; Prothrombin Time (Protime)PT. 20.4 SECONDS (11.7-14.9)
[2018-12-09] MEDS: Menthol/Lanolin/Calamine/Znox 113 GM Tube 1 APPLIC TOPICAL ×2 (06:32→21:58)
[2018-12-09] MEDS: Sodium Chloride 0.65% 1 SPRAY SPRAY.BTL 2 SPRAY NASAL ×3 (06:37→21:58)
[2018-12-09] MEDS: Umeclidinium Bromide Inhaler 1 PUFF IH (06:38)
[2018-12-09] MEDS: Losartan Potassium 25 MG Tablet PO (06:39)
[2018-12-09] MEDS: Carvedilol 6.25 MG Tablet PO ×2 (06:39→17:07)
[2018-12-09] MEDS: Furosemide 80 MG Tablet PO (06:39)
[2018-12-09] MEDS: Pantoprazole Sodium 40 MG Tablet PO (06:39)
[2018-12-09] MEDS: Loratadine 10 MG Tablet PO (06:39)
[2018-12-09] MEDS: Levothyroxine 100 MCG Tablet PO (06:39)
[2018-12-09] MEDS: Polyethylene Glycol 3350 17 GM PACKET PO (06:41)
[2018-12-09 07:28] VITALS: O2SAT 98
[2018-12-09] MEDS: Hydroxychloroquine 200 MG Tablet PO ×2 (08:46→17:07)
[2018-12-09] MEDS: Multivitamins,Therapeutic Tablet 1 TABLET PO (08:46)
[2018-12-09] MEDS: MethylPREDNISolone DosePak 4 MG BOX PO ×4 (08:46→21:59)
[2018-12-09] MEDS: Amox/Clavulanate 875 MG Tablet PO ×2 (08:47→17:06)
[2018-12-09] MEDS: Magnesium Oxide 400 MG Tablet PO ×2 (08:47→17:06)
[2018-12-09] MEDS: Acetaminophen 500 MG Tablet 1000 MG PO ×2 (08:49→21:57)
[2018-12-09] MEDS: Iron Polysaccharide Complex 150 MG CAPSULE PO (09:42)
[2018-12-09 15:36] VITALS: BP 98/55; PULSE 76; RESP 20; TEMP 36.4; O2SAT 96
[2018-12-09] MEDS: Furosemide 40 MG Tablet PO (17:10)
[2018-12-09] MEDS: Atorvastatin Calcium 40 MG Tablet PO (21:59)
[2018-12-09 22:00] VITALS: PULSE 78; RESP 18; O2SAT 94
[2018-12-10] MEDS: Menthol/Lanolin/Calamine/Znox 113 GM Tube 1 APPLIC TOPICAL ×2 (06:39→20:13)
[2018-12-10] MEDS: Umeclidinium Bromide Inhaler 1 PUFF IH (06:40)
[2018-12-10] MEDS: Pantoprazole Sodium 40 MG Tablet PO (06:41)
[2018-12-10] MEDS: Levothyroxine 100 MCG Tablet PO (06:41)
[2018-12-10] MEDS: Carvedilol 6.25 MG Tablet PO ×2 (06:41→17:08)
[2018-12-10] MEDS: Losartan Potassium 25 MG Tablet PO (06:41)
[2018-12-10] MEDS: Loratadine 10 MG Tablet PO (06:41)
[2018-12-10] MEDS: Furosemide 80 MG Tablet PO (06:41)
[2018-12-10] MEDS: Polyethylene Glycol 3350 17 GM PACKET PO (06:42)
[2018-12-10] MEDS: Sodium Chloride 0.65% 1 SPRAY SPRAY.BTL 2 SPRAY NASAL ×3 (06:43→20:10)
[2018-12-10 07:16] VITALS: O2SAT 93
[2018-12-10] MEDS: Iron Polysaccharide Complex 150 MG CAPSULE PO (08:56)
[2018-12-10] MEDS: Magnesium Oxide 400 MG Tablet PO ×2 (08:56→17:03)
[2018-12-10] MEDS: Hydroxychloroquine 200 MG Tablet PO ×2 (08:57→17:04)
[2018-12-10] MEDS: MethylPREDNISolone DosePak 4 MG BOX PO ×3 (08:57→20:12)
[2018-12-10] MEDS: Multivitamins,Therapeutic Tablet 1 TABLET PO (08:57)
[2018-12-10 09:15] VITALS: RESP 18
--- NOTE | 2018-12-10 09:18 | NURSING ---
DR LIMA UPDATED ON WHETHER HE WANTS BLOOD THINNERS RESTARTED. NO NEW ORDERS, TOO HIGH RISK FOR BLEED.
--- NOTE | 2018-12-10 13:37 | PCM.PN.RX ---
<ArvindcarolinenickManuel D - Last Filed: 12/10/18 13:37> Progress Note - Pharmacy Subjective: TCU Admission Objective: Allergies No Known Allergies Allergy (Verified 11/29/18 06:24) Current Medications Generic Name Dose Route Start Last Admin Trade Name Freq PRN Reason Stop Dose Admin Acetaminophen 1,000 mg 12/07/18 18:38 12/09/18 21:57 Tylenol PO 1,000 mg Q6H PRN PRN Administration MILD PAIN (1-3/10) Albuterol Sulfate 2 puff 12/08/18 07:18 Ventolin Hfa (Sp) INHALATION Q4H PRN PRN Wheezing Atorvastatin Calcium 40 mg 12/07/18 22:00 12/09/18 21:59 Lipitor PO 40 mg QHS ROLANDO Administration Bisacodyl 10 mg 12/07/18 14:45 Dulcolax RECTAL DAILY PRN Constipation Budesonide 0.5 mg 12/08/18 06:00 12/08/18 06:55 Pulmicort Aerosol INHALATION 0.5 mg BID.RT ROLANDO Administration Calamine/Phenol 1 applic 12/07/18 22:00 12/10/18 06:39 Calmoseptine Ointment TOPICAL 1 applicatio 0600,2200 ROLANDO Administration Protocol Carvedilol 6.25 mg 12/07/18 18:00 12/10/18 06:41 Coreg PO 6.25 mg BID ROLANDO Administration Cholecalciferol 1,000 unit 12/07/18 18:00 12/10/18 06:41 Vitamin D PO 1,000 unit BID ROLANDO Administration Fluticasone Propionate 2 spray 12/07/18 14:39 Flonase Nasal [place] NASAL BID PRN PRN ALLERGIES Furosemide 80 mg 12/08/18 06:00 12/10/18 06:41 Lasix PO 80 mg DAILY ROLANDO Administration Furosemide 40 mg 12/07/18 18:00 12/09/18 17:10 Lasix PO 40 mg 1800 ROLANDO Administration Hydroxychloroquine Sulfate 200 mg 12/07/18 17:00 12/10/18 08:57 Plaquenil PO 200 mg BIDCM ROLANDO Administration Levothyroxine Sodium 100 mcg 12/08/18 06:00 12/10/18 06:41 Synthroid PO 100 mcg DAILY ROLANDO Administration Lidocaine HCl 15 ml 12/09/18 08:24 12/10/18 11:01 Xylocaine Viscous PO 15 ml Q3H PRN Administration MOUTH IRRITATION Loratadine 10 mg 12/08/18 06:00 12/10/18 06:41 Claritin PO 10 mg DAILY ROLANDO Administration Losartan Potassium 25 mg 12/08/18 06:00 12/10/18 06:41 Cozaar PO 25 mg DAILY ROL[facility]O Administration Magnesium Oxide 400 mg 12/07/18 17:00 12/10/18 08:56 Mag-Ox 400 PO 400 mg BIDCM ROLANDO Administration Methylprednisolone 4 mg 12/07/18 22:00 12/10/18 11:02 Medrol Dosepak PO 12/12/18 08:59 4 mg 0800,1200,2200 ROLANDO Administration Taper Multivitamins 1 tablet 12/08/18 08:00 12/10/18 08:57 Multivitamin PO 1 tablet DAILY@0800 ROLANDO Administration Oxycodone HCl 5 mg 12/07/18 23:22 12/09/18 14:01 Oxyir PO 5 mg Q4H PRN PRN Administration MODERATE PAIN (4-5/10) Pantoprazole Sodium 40 mg 12/08/18 06:00 12/10/18 06:41 Protonix PO 40 mg DAILY [facility] Administration Polyethylene Glycol 17 gm 12/08/18 06:00 12/10/18 06:42 Miralax PO 17 gm DAILY ROL[facility]O Administration Polysaccharide Iron Complex 150 mg 12/09/18 08:00 12/10/18 08:56 [facility] Administration Potassium Chloride 40 meq 12/07/18 17:00 12/10/18 08:56 K-Dur PO 40 meq BIDCM [facility] Administration Senna/Docusate Sodium 2 tablet 12/08/18 06:00 12/10/18 06:41 Senokot-S, Shawna-Colace PO Not Given BID [facility] Sodium Chloride 2 spray 12/07/18 22:00 12/10/18 13:00 [place] Nasal [place] NASAL 2 spray TID ROLANDO Administration Tuberculin PPD 5 tu 12/15/18 10:00 Tubersol, Aplisol, Ppd ID 12/15/18 10:01 X1 ONE Problem List (Last Reviewed 11/29/18 @ 06:25 by Radha Payan) Debility (Acute) Epistaxis (Acute) Aspiration pneumonia (Acute) Seizure (Acute) Hyponatremia (Acute) Chronic systolic (congestive) heart failure (Chronic) Coronary artery disease (Chronic) Chronic obstructive pulmonary disease (Chronic) Hypothyroidism (Chronic) Allergic rhinitis (Chronic) GERD (gastroesophageal reflux disease) (Chronic) Hypokalemia (Chronic) LV (left ventricular) mural thrombus (Chronic) Vital Signs Temp Pulse Resp BP Pulse Ox 97.5 F L 78 18 98/55 L 93 12/09/18 15:36 12/09/18 22:00 12/10/18 09:15 12/09/18 15:36 12/10/18 07:16 Oxygen Flow Rate (L/min) 4 Oxygen Delivery Method Nasal Cannula Weight: 69.127 kg Body Mass Index (BMI) 25.9 Finger Stick Blood Glucose 126 Sodium 136 mmol/L (136-145) 12/08/18 05:10 Potassium 4.8 mmol/L (3.5-5.1) 12/08/18 05:10 Chloride 92 mmol/L (98-107) L 12/08/18 05:10 Carbon Dioxide 38.0 mmol/L (21.0-32.0) H 12/08/18 05:10 Anion Gap 6 (5-15) 12/08/18 05:10 BUN 18 mg/dL (7-18) 12/08/18 05:10 Creatinine 1.40 mg/dL (0.70-1.30) H 12/08/18 05:10 Est GFR (MDRD) Af Amer 65 mL/min (>60) 12/08/18 05:10 Est GFR (MDRD) Non-Af 54 mL/min (>60) L 12/08/18 05:10 BUN/Creatinine Ratio 12.9 RATIO (10-20) 12/08/18 05:10 Glucose 148 mg/dL (74-106) H 12/08/18 05:10 Assessment/Plan: 1) Pain APAP for mild pain, oxycodone for moderate pain, lidocaine for mouth irritation, hydroxychloroquine. Continue to monitor prn medication use, daily pain scores. * 2) Pulm Incruse, Medrol pack, loratadine, budesonide, albuterol prn. * Therapy duplication with Medrol (for hip pain) and budesonide inh. Recommend to dc budesonide and restart when Medrol has finished. 3) GI Pantoprazole. Continue to monitor s/s GI distress. 4) Heart Failure Carvedilol, atorvastatin, losartan, furosemide/KCL/Mg. Continue to monitor BP/HR, renal function, electrolytes, lipids. Psychotropic Medications: None Unnecessary Medications: None Bowel Regimen: 5) Senna/s, PEG, prn bisacodyl. Continue to monitor prn medication use, for constipation/diarrhea. Date of Note:: 12/10/18 - Provider Comments Provider responsibility: Provider responsible to enter orders to implement recommendations <Gutierrez Infante Chi - Last Filed: 12/10/18 14:37> Progress Note - Pharmacy Subjective: [] Objective: Allergies No Known Allergies Allergy (Verified 11/29/18 06:24) Current Medications Generic Name Dose Route Start Last Admin Trade Name Freq PRN Reason Stop Dose Admin Acetaminophen 1,000 mg 12/07/18 18:38 12/09/18 21:57 Tylenol PO 1,000 mg Q6H PRN PRN Administration MILD PAIN (1-3/10) Albuterol Sulfate 2 puff 12/08/18 07:18 Ventolin Hfa (Sp) INHALATION Q4H PRN PRN Wheezing Atorvastatin Calcium 40 mg 12/07/18 22:00 12/09/18 21:59 Lipitor PO 40 mg QHS ROLANDO Administration Bisacodyl 10 mg 12/07/18 14:45 Dulcolax RECTAL DAILY PRN Constipation Budesonide 0.5 mg 12/08/18 06:00 12/08/18 06:55 Pulmicort Aerosol INHALATION 0.5 mg BID.RT ROLANDO Administration Calamine/Phenol 1 applic 12/07/18 22:00 12/10/18 06:39 Calmoseptine Ointment TOPICAL 1 applicatio 0600,2200 ROLANDO Administration Protocol Carvedilol 6.25 mg 12/07/18 18:00 12/10/18 06:41 Coreg PO 6.25 mg BID ROLANDO Administration Cholecalciferol 1,000 unit 12/07/18 18:00 12/10/18 06:41 Vitamin D PO 1,000 unit BID ROLANDO Administration Fluticasone Propionate 2 spray 12/07/18 14:39 Flonase Nasal [place] NASAL BID PRN PRN ALLERGIES Furosemide 80 mg 12/08/18 06:00 12/10/18 06:41 Lasix PO 80 mg DAILY [facility] Administration Furosemide 40 mg 12/07/18 18:00 12/09/18 17:10 Lasix PO 40 mg 1800 [facility] Administration Hydroxychloroquine Sulfate 200 mg 12/07/18 17:00 12/10/18 08:57 Plaquenil PO 200 mg BIDCM [facility] Administration Levothyroxine Sodium 100 mcg 12/08/18 06:00 12/10/18 06:41 Synthroid PO 100 mcg DAILY [facility] Administration Lidocaine HCl 15 ml 12/09/18 08:24 12/10/18 14:13 Xylocaine Viscous PO 15 ml Q3H PRN Administration MOUTH IRRITATION Loratadine 10 mg 12/08/18 06:00 12/10/18 06:41 Claritin PO 10 mg DAILY [facility] Administration Losartan Potassium 25 mg 12/08/18 06:00 12/10/18 06:41 Cozaar PO 25 mg DAILY [facility] Administration Magnesium Oxide 400 mg 12/07/18 17:00 12/10/18 08:56 Mag-Ox 400 PO 400 mg BIDCM [facility] Administration Methylprednisolone 4 mg 12/07/18 22:00 12/10/18 11:02 Medrol Dosepak PO 12/12/18 08:59 4 mg 0800,1200,2200 [facility] Administration Taper Multivitamins 1 tablet 12/08/18 08:00 12/10/18 08:57 Multivitamin PO 1 tablet DAILY@0800 [facility] Administration Oxycodone HCl 5 mg 12/07/18 23:22 12/09/18 14:01 Oxyir PO 5 mg Q4H PRN PRN Administration MODERATE PAIN (4-5/10) Pantoprazole Sodium 40 mg 12/08/18 06:00 12/10/18 06:41 Protonix PO 40 mg DAILY [facility] Administration Polyethylene Glycol 17 gm 12/08/18 06:00 12/10/18 06:42 Miralax PO 17 gm DAILY [facility] Administration Polysaccharide Iron Complex 150 mg 12/09/18 08:00 12/10/18 08:56 [facility]rex 150 [facility] Administration Potassium Chloride 40 meq 12/07/18 17:00 12/10/18 08:56 K-Dur PO 40 meq BIDCM [facility] Administration Senna/Docusate Sodium 2 tablet 12/08/18 06:00 12/10/18 06:41 Senokot-S, Shawna-Colace PO Not Given BID [facility] Sodium Chloride 2 spray 12/07/18 22:00 12/10/18 13:00 [place] Nasal [place] NASAL 2 spray TID ROLANDO Administration Tuberculin PPD 5 tu 12/15/18 10:00 Tubersol, Aplisol, Ppd ID 12/15/18 10:01 X1 ONE Problem List (Last Reviewed 11/29/18 @ 06:25 by Radha Payan) Debility (Acute) Epistaxis (Acute) Aspiration pneumonia (Acute) Seizure (Acute) Hyponatremia (Acute) Chronic systolic (congestive) heart failure (Chronic) Coronary artery disease (Chronic) Chronic obstructive pulmonary disease (Chronic) Hypothyroidism (Chronic) Allergic rhinitis (Chronic) GERD (gastroesophageal reflux disease) (Chronic) Hypokalemia (Chronic) LV (left ventricular) mural thrombus (Chronic) Vital Signs Temp Pulse Resp BP Pulse Ox 97.5 F L 78 18 98/55 L 93 12/09/18 15:36 12/09/18 22:00 12/10/18 09:15 12/09/18 15:36 12/10/18 07:16 Oxygen Flow Rate (L/min) 4 Oxygen Delivery Method Nasal Cannula Weight: 69.127 kg Body Mass Index (BMI) 25.9 Finger Stick Blood Glucose 126 Sodium 136 mmol/L (136-145) 12/08/18 05:10 Potassium 4.8 mmol/L (3.5-5.1) 12/08/18 05:10 Chloride 92 mmol/L (98-107) L 12/08/18 05:10 Carbon Dioxide 38.0 mmol/L (21.0-32.0) H 12/08/18 05:10 Anion Gap 6 (5-15) 12/08/18 05:10 BUN 18 mg/dL (7-18) 12/08/18 05:10 Creatinine 1.40 mg/dL (0.70-1.30) H 12/08/18 05:10 Est GFR (MDRD) Af Amer 65 mL/min (>60) 12/08/18 05:10 Est GFR (MDRD) Non-Af 54 mL/min (>60) L 12/08/18 05:10 BUN/Creatinine Ratio 12.9 RATIO (10-20) 12/08/18 05:10 Glucose 148 mg/dL (74-106) H 12/08/18 05:10 Assessment/Plan: Psychotropic Medications: Unnecessary Medications: Bowel Regimen: - Provider Comments Provider responsibility: Provider responsible to enter orders to implement recommendations Provider Comments to Recommendations by Pharmacy: Agree
--- NOTE | 2018-12-10 13:47 | PHA.CONS_ITS ---
<ArvindcarolinenickManuel D - Last Filed: 12/10/18 13:37> Progress Note - Pharmacy Subjective: TCU Admission Objective: Allergies No Known Allergies Allergy (Verified 11/29/18 06:24) Current Medications Generic Name Dose Route Start Last Admin Trade Name Freq PRN Reason Stop Dose Admin Acetaminophen 1,000 mg 12/07/18 18:38 12/09/18 21:57 Tylenol PO 1,000 mg Q6H PRN PRN Administration MILD PAIN (1-3/10) Albuterol Sulfate 2 puff 12/08/18 07:18 Ventolin Hfa (Sp) INHALATION Q4H PRN PRN Wheezing Atorvastatin Calcium 40 mg 12/07/18 22:00 12/09/18 21:59 Lipitor PO 40 mg QHS ROLANDO Administration Bisacodyl 10 mg 12/07/18 14:45 Dulcolax RECTAL DAILY PRN Constipation Budesonide 0.5 mg 12/08/18 06:00 12/08/18 06:55 Pulmicort Aerosol INHALATION 0.5 mg BID.RT ROLANDO Administration Calamine/Phenol 1 applic 12/07/18 22:00 12/10/18 06:39 Calmoseptine Ointment TOPICAL 1 applicatio 0600,2200 ROLANDO Administration Protocol Carvedilol 6.25 mg 12/07/18 18:00 12/10/18 06:41 Coreg PO 6.25 mg BID ROLANDO Administration Cholecalciferol 1,000 unit 12/07/18 18:00 12/10/18 06:41 Vitamin D PO 1,000 unit BID [facility] Administration Fluticasone Propionate 2 spray 12/07/18 14:39 Flonase Nasal [place] NASAL BID PRN PRN ALLERGIES Furosemide 80 mg 12/08/18 06:00 12/10/18 06:41 Lasix PO 80 mg DAILY [facility] Administration Furosemide 40 mg 12/07/18 18:00 12/09/18 17:10 Lasix PO 40 mg 1800 R[facility]O Administration Hydroxychloroquine Sulfate 200 mg 12/07/18 17:00 12/10/18 08:57 Plaquenil PO 200 mg BIDCM [facility] Administration Levothyroxine Sodium 100 mcg 12/08/18 06:00 12/10/18 06:41 Synthroid PO 100 mcg DAILY [facility] Administration Lidocaine HCl 15 ml 12/09/18 08:24 12/10/18 11:01 Xylocaine Viscous PO 15 ml Q3H PRN Administration MOUTH IRRITATION Loratadine 10 mg 12/08/18 06:00 12/10/18 06:41 Claritin PO 10 mg DAILY [facility] Administration Losartan Potassium 25 mg 12/08/18 06:00 12/10/18 06:41 Cozaar PO 25 mg DAILY [facility] Administration Magnesium Oxide 400 mg 12/07/18 17:00 12/10/18 08:56 Mag-Ox 400 PO 400 mg BIDCM [facility] Administration Methylprednisolone 4 mg 12/07/18 22:00 12/10/18 11:02 Medrol Dosepak PO 12/12/18 08:59 4 mg 0800,1200,2200 R[facility]O Administration Taper Multivitamins 1 tablet 12/08/18 08:00 12/10/18 08:57 Multivitamin PO 1 tablet DAILY@0800 [facility] Administration Oxycodone HCl 5 mg 12/07/18 23:22 12/09/18 14:01 Oxyir PO 5 mg Q4H PRN PRN Administration MODERATE PAIN (4-5/10) Pantoprazole Sodium 40 mg 12/08/18 06:00 12/10/18 06:41 Protonix PO 40 mg DAILY [facility] Administration Polyethylene Glycol 17 gm 12/08/18 06:00 12/10/18 06:42 Miralax PO 17 gm DAILY [facility] Administration Polysaccharide Iron Complex 150 mg 12/09/18 08:00 12/10/18 08:56 Ferrex 150 [facility] Administration Potassium Chloride 40 meq 12/07/18 17:00 12/10/18 08:56 K-Dur PO 40 meq BIDCM [facility] Administration Senna/Docusate Sodium 2 tablet 12/08/18 06:00 12/10/18 06:41 Senokot-S, Shawna-Colace PO Not Given BID [facility] Sodium Chloride 2 spray 12/07/18 22:00 12/10/18 13:00 [place] Nasal [place] NASAL 2 spray TID ROLANDO Administration Tuberculin PPD 5 tu 12/15/18 10:00 Tubersol, Aplisol, Ppd ID 12/15/18 10:01 X1 ONE Problem List (Last Reviewed 11/29/18 @ 06:25 by Radha Payan) Debility (Acute) Epistaxis (Acute) Aspiration pneumonia (Acute) Seizure (Acute) Hyponatremia (Acute) Chronic systolic (congestive) heart failure (Chronic) Coronary artery disease (Chronic) Chronic obstructive pulmonary disease (Chronic) Hypothyroidism (Chronic) Allergic rhinitis (Chronic) GERD (gastroesophageal reflux disease) (Chronic) Hypokalemia (Chronic) LV (left ventricular) mural thrombus (Chronic) Vital Signs Temp Pulse Resp BP Pulse Ox 97.5 F L 78 18 98/55 L 93 12/09/18 15:36 12/09/18 22:00 12/10/18 09:15 12/09/18 15:36 12/10/18 07:16 Oxygen Flow Rate (L/min) 4 Oxygen Delivery Method Nasal Cannula Weight: 69.127 kg Body Mass Index (BMI) 25.9 Finger Stick Blood Glucose 126 Sodium 136 mmol/L (136-145) 12/08/18 05:10 Potassium 4.8 mmol/L (3.5-5.1) 12/08/18 05:10 Chloride 92 mmol/L (98-107) L 12/08/18 05:10 Carbon Dioxide 38.0 mmol/L (21.0-32.0) H 12/08/18 05:10 Anion Gap 6 (5-15) 12/08/18 05:10 BUN 18 mg/dL (7-18) 12/08/18 05:10 Creatinine 1.40 mg/dL (0.70-1.30) H 12/08/18 05:10 Est GFR (MDRD) Af Amer 65 mL/min (>60) 12/08/18 05:10 Est GFR (MDRD) Non-Af 54 mL/min (>60) L 12/08/18 05:10 BUN/Creatinine Ratio 12.9 RATIO (10-20) 12/08/18 05:10 Glucose 148 mg/dL (74-106) H 12/08/18 05:10 Assessment/Plan: 1) Pain APAP for mild pain, oxycodone for moderate pain, lidocaine for mouth irritation, hydroxychloroquine. Continue to monitor prn medication use, daily pain scores. * 2) Pulm Incruse, Medrol pack, loratadine, budesonide, albuterol prn. * Therapy duplication with Medrol (for hip pain) and budesonide inh. Recommend to dc budesonide and restart when Medrol has finished. 3) GI Pantoprazole. Continue to monitor s/s GI distress. 4) Heart Failure Carvedilol, atorvastatin, losartan, furosemide/KCL/Mg. Continue to monitor BP/HR, renal function, electrolytes, lipids. Psychotropic Medications: None Unnecessary Medications: None Bowel Regimen: 5) Senna/s, PEG, prn bisacodyl. Continue to monitor prn medication use, for constipation/diarrhea. Date of Note:: 12/10/18 - Provider Comments Provider responsibility: Provider responsible to enter orders to implement recommendations <Gutierrez Infante Chi - Last Filed: 12/10/18 14:37> Progress Note - Pharmacy Subjective: [] Objective: Allergies No Known Allergies Allergy (Verified 11/29/18 06:24) Current Medications Generic Name Dose Route Start Last Admin Trade Name Freq PRN Reason Stop Dose Admin Acetaminophen 1,000 mg 12/07/18 18:38 12/09/18 21:57 Tylenol PO 1,000 mg Q6H PRN PRN Administration MILD PAIN (1-3/10) Albuterol Sulfate 2 puff 12/08/18 07:18 Ventolin Hfa (Sp) INHALATION Q4H PRN PRN Wheezing Atorvastatin Calcium 40 mg 12/07/18 22:00 12/09/18 21:59 Lipitor PO 40 mg QHS ROLANDO Administration Bisacodyl 10 mg 12/07/18 14:45 Dulcolax RECTAL DAILY PRN Constipation Budesonide 0.5 mg 12/08/18 06:00 12/08/18 06:55 Pulmicort Aerosol INHALATION 0.5 mg BID.RT ROLANDO Administration Calamine/Phenol 1 applic 12/07/18 22:00 12/10/18 06:39 Calmoseptine Ointment TOPICAL 1 applicatio 0600,2200 ROLANDO Administration Protocol Carvedilol 6.25 mg 12/07/18 18:00 12/10/18 06:41 Coreg PO 6.25 mg BID ROLANDO Administration Cholecalciferol 1,000 unit 12/07/18 18:00 12/10/18 06:41 Vitamin D PO 1,000 unit BID [facility] Administration Fluticasone Propionate 2 spray 12/07/18 14:39 Flonase Nasal [place] NASAL BID PRN PRN ALLERGIES Furosemide 80 mg 12/08/18 06:00 12/10/18 06:41 Lasix PO 80 mg DAILY [facility] Administration Furosemide 40 mg 12/07/18 18:00 12/09/18 17:10 Lasix PO 40 mg 1800 [facility] Administration Hydroxychloroquine Sulfate 200 mg 12/07/18 17:00 12/10/18 08:57 Plaquenil PO 200 mg BIDCM [facility] Administration Levothyroxine Sodium 100 mcg 12/08/18 06:00 12/10/18 06:41 Synthroid PO 100 mcg DAILY [facility] Administration Lidocaine HCl 15 ml 12/09/18 08:24 12/10/18 14:13 Xylocaine Viscous PO 15 ml Q3H PRN Administration MOUTH IRRITATION Loratadine 10 mg 12/08/18 06:00 12/10/18 06:41 Claritin PO 10 mg DAILY [facility] Administration Losartan Potassium 25 mg 12/08/18 06:00 12/10/18 06:41 Cozaar PO 25 mg DAILY [facility] Administration Magnesium Oxide 400 mg 12/07/18 17:00 12/10/18 08:56 Mag-Ox 400 PO 400 mg BIDCM [facility] Administration Methylprednisolone 4 mg 12/07/18 22:00 12/10/18 11:02 Medrol Dosepak PO 12/12/18 08:59 4 mg 0800,1200,2200 [facility] Administration Taper Multivitamins 1 tablet 12/08/18 08:00 12/10/18 08:57 Multivitamin PO 1 tablet DAILY@0800 [facility] Administration Oxycodone HCl 5 mg 12/07/18 23:22 12/09/18 14:01 Oxyir PO 5 mg Q4H PRN PRN Administration MODERATE PAIN (4-5/10) Pantoprazole Sodium 40 mg 12/08/18 06:00 12/10/18 06:41 Protonix PO 40 mg DAILY [facility] Administration Polyethylene Glycol 17 gm 12/08/18 06:00 12/10/18 06:42 Miralax PO 17 gm DAILY [facility] Administration Polysaccharide Iron Complex 150 mg 12/09/18 08:00 12/10/18 08:56 Ferrex 150 [facility] Administration Potassium Chloride 40 meq 12/07/18 17:00 12/10/18 08:56 K-Dur PO 40 meq BIDCM [facility] Administration Senna/Docusate Sodium 2 tablet 12/08/18 06:00 12/10/18 06:41 Senokot-S, Shawna-Colace PO Not Given BID [facility] Sodium Chloride 2 spray 12/07/18 22:00 12/10/18 13:00 [place] Nasal [place] NASAL 2 spray TID ROLANDO Administration Tuberculin PPD 5 tu 12/15/18 10:00 Tubersol, Aplisol, Ppd ID 12/15/18 10:01 X1 ONE Problem List (Last Reviewed 11/29/18 @ 06:25 by Radha Payan) Debility (Acute) Epistaxis (Acute) Aspiration pneumonia (Acute) Seizure (Acute) Hyponatremia (Acute) Chronic systolic (congestive) heart failure (Chronic) Coronary artery disease (Chronic) Chronic obstructive pulmonary disease (Chronic) Hypothyroidism (Chronic) Allergic rhinitis (Chronic) GERD (gastroesophageal reflux disease) (Chronic) Hypokalemia (Chronic) LV (left ventricular) mural thrombus (Chronic) Vital Signs Temp Pulse Resp BP Pulse Ox 97.5 F L 78 18 98/55 L 93 12/09/18 15:36 12/09/18 22:00 12/10/18 09:15 12/09/18 15:36 12/10/18 07:16 Oxygen Flow Rate (L/min) 4 Oxygen Delivery Method Nasal Cannula Weight: 69.127 kg Body Mass Index (BMI) 25.9 Finger Stick Blood Glucose 126 Sodium 136 mmol/L (136-145) 12/08/18 05:10 Potassium 4.8 mmol/L (3.5-5.1) 12/08/18 05:10 Chloride 92 mmol/L (98-107) L 12/08/18 05:10 Carbon Dioxide 38.0 mmol/L (21.0-32.0) H 12/08/18 05:10 Anion Gap 6 (5-15) 12/08/18 05:10 BUN 18 mg/dL (7-18) 12/08/18 05:10 Creatinine 1.40 mg/dL (0.70-1.30) H 12/08/18 05:10 Est GFR (MDRD) Af Amer 65 mL/min (>60) 12/08/18 05:10 Est GFR (MDRD) Non-Af 54 mL/min (>60) L 12/08/18 05:10 BUN/Creatinine Ratio 12.9 RATIO (10-20) 12/08/18 05:10 Glucose 148 mg/dL (74-106) H 12/08/18 05:10 Assessment/Plan: Psychotropic Medications: Unnecessary Medications: Bowel Regimen: - Provider Comments Provider responsibility: Provider responsible to enter orders to implement recommendations Provider Comments to Recommendations by Pharmacy: Agree
[2018-12-10 15:48] VITALS: BP 108/56; PULSE 77; RESP 18; TEMP 37.1; O2SAT 100
[2018-12-10] MEDS: Furosemide 40 MG Tablet PO (17:07)
[2018-12-10] MEDS: Atorvastatin Calcium 40 MG Tablet PO (20:11)
[2018-12-11] MEDS: Furosemide 80 MG Tablet PO (05:58)
[2018-12-11] MEDS: Levothyroxine 100 MCG Tablet PO (05:58)
[2018-12-11] MEDS: Carvedilol 6.25 MG Tablet PO ×2 (05:58→17:39)
[2018-12-11] MEDS: Loratadine 10 MG Tablet PO (05:58)
[2018-12-11] MEDS: Polyethylene Glycol 3350 17 GM PACKET PO (05:58)
[2018-12-11] MEDS: Losartan Potassium 25 MG Tablet PO (05:58)
[2018-12-11] MEDS: Pantoprazole Sodium 40 MG Tablet PO (05:58)
[2018-12-11] MEDS: Menthol/Lanolin/Calamine/Znox 113 GM Tube 1 APPLIC TOPICAL ×2 (06:11→20:32)
[2018-12-11] MEDS: Umeclidinium Bromide Inhaler 1 PUFF IH (06:12)
[2018-12-11] MEDS: Sodium Chloride 0.65% 1 SPRAY SPRAY.BTL 2 SPRAY NASAL ×3 (06:12→20:34)
[2018-12-11 06:30] VITALS: O2SAT 98
[2018-12-11] MEDS: Iron Polysaccharide Complex 150 MG CAPSULE PO (08:51)
[2018-12-11] MEDS: Magnesium Oxide 400 MG Tablet PO ×2 (08:52→17:39)
[2018-12-11] MEDS: Multivitamins,Therapeutic Tablet 1 TABLET PO (08:53)
[2018-12-11] MEDS: Hydroxychloroquine 200 MG Tablet PO ×2 (08:53→17:39)
[2018-12-11] MEDS: MethylPREDNISolone DosePak 4 MG BOX PO ×2 (08:56→20:32)
[2018-12-11 10:21] VITALS: PULSE 71; RESP 18
[2018-12-11 15:31] VITALS: BP 120/61; PULSE 70; RESP 16; TEMP 36.8; O2SAT 100
--- NOTE | 2018-12-11 17:14 | NURSING ---
pt arrived from [facility] via w/c, family member at bed side, vitals taken 180/132 78 R arm , 208/102 78 L arm, denies any discomfort, will recheck after pt settles in , pt stated the ride was pretty bumpy and scary
[2018-12-11] MEDS: Furosemide 40 MG Tablet PO (17:39)
[2018-12-11] MEDS: oxyCODONE 5 MG Tablet PO (20:33)
[2018-12-11] MEDS: Atorvastatin Calcium 40 MG Tablet PO (20:35)
--- NOTE | 2018-12-11 20:38 | NURSING ---
Pt c/o hip and mouth pain. Asked for oxyir 5mg and oral medication for mouth pain, stating he can have it every 3 hours. Given as orders allow. Oxyir 5mg did not scan right, verified with RN. Pt alert and pleasant. Continuing to monitor.
[2018-12-12] MEDS: oxyCODONE 5 MG Tablet PO ×2 (04:17→19:48)
[2018-12-12] MEDS: Pantoprazole Sodium 40 MG Tablet PO (04:18)
[2018-12-12] MEDS: Loratadine 10 MG Tablet PO (04:19)
[2018-12-12] MEDS: Menthol/Lanolin/Calamine/Znox 113 GM Tube 1 APPLIC TOPICAL ×2 (04:19→19:54)
[2018-12-12] MEDS: Levothyroxine 100 MCG Tablet PO (04:19)
[2018-12-12] MEDS: Losartan Potassium 25 MG Tablet PO (04:19)
[2018-12-12] MEDS: Furosemide 80 MG Tablet PO (04:20)
[2018-12-12] MEDS: Umeclidinium Bromide Inhaler 1 PUFF IH (04:20)
[2018-12-12] MEDS: Sodium Chloride 0.65% 1 SPRAY SPRAY.BTL 2 SPRAY NASAL ×3 (04:20→19:53)
[2018-12-12] MEDS: Carvedilol 6.25 MG Tablet PO ×2 (04:20→17:15)
[2018-12-12 07:20] VITALS: O2SAT 98
[2018-12-12] MEDS: MethylPREDNISolone DosePak 4 MG BOX PO (07:50)
[2018-12-12] MEDS: Hydroxychloroquine 200 MG Tablet PO ×2 (07:51→17:15)
[2018-12-12] MEDS: Iron Polysaccharide Complex 150 MG CAPSULE PO (07:53)
[2018-12-12] MEDS: Multivitamins,Therapeutic Tablet 1 TABLET PO (07:53)
[2018-12-12] MEDS: Magnesium Oxide 400 MG Tablet PO ×2 (07:53→17:14)
--- NOTE | 2018-12-12 10:37 | NURSING ---
sitting upright in chair, no c/o
[2018-12-12 15:22] VITALS: BP 109/53; PULSE 78; RESP 20; TEMP 36.8; O2SAT 96
[2018-12-12] MEDS: Furosemide 40 MG Tablet PO (17:16)
[2018-12-12] MEDS: Atorvastatin Calcium 40 MG Tablet PO (19:55)
--- NOTE | 2018-12-12 19:58 | NURSING ---
Pt called nurses station and said he noted some blood on table from elbow. This nurse into room and noted very scant amount of fresh blood coming from old scab. Area cleansed and wrapped per order. Pt asking for pain medication as well as oral medicine. Given prn oxyir 5mg for c/o hip pain and will be given oral med when able. Pt understanding and appreciative of this. Alert and pleasant. RN aware, continuing to monitor.
[2018-12-12 20:56] VITALS: PULSE 76; RESP 16; O2SAT 95
[2018-12-13] MEDS: oxyCODONE 5 MG Tablet PO (02:02)
[2018-12-13] MEDS: Acetaminophen 500 MG Tablet 1000 MG PO (04:08)
[2018-12-13] MEDS: Umeclidinium Bromide Inhaler 1 PUFF IH (04:09)
[2018-12-13] MEDS: Loratadine 10 MG Tablet PO (04:09)
[2018-12-13] MEDS: Levothyroxine 100 MCG Tablet PO (04:10)
[2018-12-13] MEDS: Furosemide 80 MG Tablet PO (04:10)
[2018-12-13] MEDS: Sodium Chloride 0.65% 1 SPRAY SPRAY.BTL 2 SPRAY NASAL ×3 (04:10→21:09)
[2018-12-13] MEDS: Pantoprazole Sodium 40 MG Tablet PO (04:10)
[2018-12-13] MEDS: Menthol/Lanolin/Calamine/Znox 113 GM Tube 1 APPLIC TOPICAL ×2 (04:11→21:11)
[2018-12-13] MEDS: Carvedilol 6.25 MG Tablet PO ×2 (04:11→17:19)
[2018-12-13] MEDS: Losartan Potassium 25 MG Tablet PO (04:11)
--- NOTE | 2018-12-13 04:21 | NURSING ---
Pt c/o pain in right foot/ankle throughout night, requesting pain medication several times. Stated it has been effective once given but pain persists. Rating 6-7/10 consistently, as an ache. Pedal pulses present bilaterally; regular R/R. Loan's sign negative, regular ROM. Pt alert, oriented and pleasant but voiced concern over increased pain. Appreciative of staff care. Given prn pain meds as allowed, repositioned for comfort. Continuing to monitor. RN aware.
[2018-12-13 06:04] LABS: International Normalized Ratio 1.3; Prothrombin Time (Protime)PT. 16.4 SECONDS (11.7-14.9)
[2018-12-13 07:44] VITALS: PULSE 85; RESP 16; O2SAT 100
[2018-12-13] MEDS: Budesonide Respules 0.5 MG/2 ML AMPUL.NEB. INHALATION ×2 (07:44→19:38)
--- NOTE | 2018-12-13 08:25 | CPS ---
Patient's trilogy reservoir filled for use guera, 4lpm bleed-in to trilogy running.
[2018-12-13] MEDS: Hydroxychloroquine 200 MG Tablet PO ×2 (08:28→17:19)
[2018-12-13] MEDS: Multivitamins,Therapeutic Tablet 1 TABLET PO (08:28)
[2018-12-13] MEDS: Magnesium Oxide 400 MG Tablet PO ×2 (08:28→17:19)
[2018-12-13] MEDS: Iron Polysaccharide Complex 150 MG CAPSULE PO (08:28)
--- NOTE | 2018-12-13 10:13 | NURSING ---
per Dr. Cantrell's office, no need to restart coumadin d/t pt's EF improving
[2018-12-13 15:41] VITALS: BP 106/58; PULSE 80; RESP 18; TEMP 36.8; O2SAT 96
[2018-12-13] MEDS: Furosemide 40 MG Tablet PO (17:18)
[2018-12-13 19:39] VITALS: PULSE 82; RESP 16
[2018-12-13] MEDS: Atorvastatin Calcium 40 MG Tablet PO (21:09)
[2018-12-13 21:15] VITALS: PULSE 76; RESP 16; O2SAT 97
[2018-12-14] MEDS: Acetaminophen 500 MG Tablet 1000 MG PO ×2 (01:03→08:14)
[2018-12-14] MEDS: Sodium Chloride 0.65% 1 SPRAY SPRAY.BTL 2 SPRAY NASAL ×3 (06:31→20:08)
[2018-12-14] MEDS: Umeclidinium Bromide Inhaler 1 PUFF IH (06:31)
[2018-12-14] MEDS: Loratadine 10 MG Tablet PO (06:36)
[2018-12-14] MEDS: Carvedilol 6.25 MG Tablet PO ×2 (06:36→17:35)
[2018-12-14] MEDS: Losartan Potassium 25 MG Tablet PO (06:36)
[2018-12-14] MEDS: Pantoprazole Sodium 40 MG Tablet PO (06:36)
[2018-12-14] MEDS: Levothyroxine 100 MCG Tablet PO (06:36)
[2018-12-14] MEDS: Furosemide 80 MG Tablet PO (06:36)
[2018-12-14] MEDS: Menthol/Lanolin/Calamine/Znox 113 GM Tube 1 APPLIC TOPICAL ×2 (06:37→20:10)
[2018-12-14 07:27] VITALS: PULSE 79; RESP 20; O2SAT 99
[2018-12-14] MEDS: Budesonide Respules 0.5 MG/2 ML AMPUL.NEB. INHALATION ×2 (07:27→19:45)
[2018-12-14] MEDS: Hydroxychloroquine 200 MG Tablet PO ×2 (08:13→17:32)
[2018-12-14] MEDS: Multivitamins,Therapeutic Tablet 1 TABLET PO (08:13)
[2018-12-14] MEDS: Iron Polysaccharide Complex 150 MG CAPSULE PO (08:13)
[2018-12-14] MEDS: Magnesium Oxide 400 MG Tablet PO ×2 (08:13→17:32)
[2018-12-14 11:00] VITALS: PULSE 70; RESP 18; O2SAT 98
[2018-12-14 15:30] VITALS: BP 105/49; PULSE 70; RESP 18; TEMP 36.8; O2SAT 96
--- NOTE | 2018-12-14 15:59 | NURSING ---
ELBOW PADS APPLIED TO PT ELBOWS. JANIE MIJARES AWARE
[2018-12-14] MEDS: Furosemide 40 MG Tablet PO (17:35)
[2018-12-14 19:45] VITALS: PULSE 88; RESP 16; O2SAT 96
[2018-12-14] MEDS: Atorvastatin Calcium 40 MG Tablet PO (20:10)
[2018-12-15] MEDS: Umeclidinium Bromide Inhaler 1 PUFF IH (05:34)
[2018-12-15] MEDS: Menthol/Lanolin/Calamine/Znox 113 GM Tube 1 APPLIC TOPICAL ×2 (05:35→21:03)
[2018-12-15] MEDS: Levothyroxine 100 MCG Tablet PO (05:36)
[2018-12-15] MEDS: Loratadine 10 MG Tablet PO (05:36)
[2018-12-15] MEDS: Carvedilol 6.25 MG Tablet PO ×2 (05:36→17:01)
[2018-12-15] MEDS: Losartan Potassium 25 MG Tablet PO (05:36)
[2018-12-15] MEDS: Furosemide 80 MG Tablet PO (05:36)
[2018-12-15] MEDS: Pantoprazole Sodium 40 MG Tablet PO (05:36)
[2018-12-15] MEDS: Sodium Chloride 0.65% 1 SPRAY SPRAY.BTL 2 SPRAY NASAL ×3 (05:37→21:01)
[2018-12-15 06:10] LABS: Absolute Lymphocyte Count 0.95 X10^3/ul (0.83-4.51); Absolute Neutrophil Count 3.7 X10^3/uL (2.0-7.7); Basophil# 0.02 X10^3/uL; Basophil% 0.4 % (0-1); Eosinophil# 0.17 X10^3/uL; Eosinophils% 3.2 % (0-5); Hematocrit 19.7 % (40-54); Hemoglobin 6.1 g/dl (13.0-16.5); Lymphocyte # 0.95 X10^3/ul (4.0); Mean Corpuscular Hgb 33.5 pg (27.0-32.0); Mean Corpuscular Volume 108.2 fL (80-94); Mean Platelet Vol. 9.2 fl (6.2-12.0); Monocyte# 0.42 X10^3/uL; Monocyte% 7.9 % (0-10); Neutrophil # 3.72 X10^3/uL (2.7-7.7); Neutrophil % 70.3 % (47-70); Platelet Count 146 K/mm3 (150-450); RBC Distribution Width SD 59.5 fl (35.1-43.9); Red Blood Count 1.82 M/mm3 (4.6-6.2); White Blood Count 5.3 K/mm3 (4.4-11.0)
[2018-12-15 06:23] LABS: POSITIVE COUNT NO; POSITIVE DIFFERENTIAL NO; POSITIVE MORPHOLOGY NO
[2018-12-15 06:27] LABS: Anion Gap 7 (5-15); BUN 31 mg/dL (7-18); BUN/Creat Ratio 26.1 RATIO (10-20); Calcium,Total 8.5 mg/dL (8.5-10.1); Chloride 100 mmol/L (98-107); Creatinine, Serum 1.19 mg/dL (0.70-1.30); EST Glomerular Filtration Rate 65 mL/min (>60); Est Glom Filt Rate - Afr Amer 78 mL/min (>60); Glucose 90 mg/dL (74-106); Potassium 4.3 mmol/L (3.5-5.1); Sodium Level 142 mmol/L (136-145)
[2018-12-15 06:47] VITALS: PULSE 85; RESP 16; O2SAT 96
[2018-12-15] MEDS: Budesonide Respules 0.5 MG/2 ML AMPUL.NEB. INHALATION ×2 (06:47→19:45)
--- NOTE | 2018-12-15 08:29 | NURSING ---
New order for 2 units PRBC wiht 20 lasix in between, recheck H&H in 24 hours. Infusion suite made aware.
[2018-12-15] MEDS: Iron Polysaccharide Complex 150 MG CAPSULE PO (09:59)
[2018-12-15 10:00] VITALS: RESP 18; O2SAT 98
[2018-12-15] MEDS: Multivitamins,Therapeutic Tablet 1 TABLET PO (10:00)
[2018-12-15] MEDS: Magnesium Oxide 400 MG Tablet PO ×2 (10:00→17:01)
[2018-12-15] MEDS: Hydroxychloroquine 200 MG Tablet PO ×2 (10:00→17:01)
--- NOTE | 2018-12-15 11:07 | MDS.RN ---
Shama notified of blood transfusion today, rescheduled POC meeting.
[2018-12-15 17:00] VITALS: BP 124/58; PULSE 65; RESP 18; TEMP 37.4; O2SAT 99
[2018-12-15] MEDS: Furosemide 40 MG Tablet PO (17:04)
[2018-12-15] MEDS: Tuberculin,Purif.prot.deriv. 50 TU/ML Vial 5 ML ID (19:13)
[2018-12-15 19:45] VITALS: PULSE 67; RESP 17
[2018-12-15] MEDS: Atorvastatin Calcium 40 MG Tablet PO (21:03)
[2018-12-16] MEDS: Menthol/Lanolin/Calamine/Znox 113 GM Tube 1 APPLIC TOPICAL ×2 (06:28→20:31)
[2018-12-16] MEDS: Umeclidinium Bromide Inhaler 1 PUFF IH (06:29)
[2018-12-16 06:30] VITALS: PULSE 74; RESP 16; O2SAT 97
[2018-12-16] MEDS: Sodium Chloride 0.65% 1 SPRAY SPRAY.BTL 2 SPRAY NASAL ×3 (06:30→20:32)
[2018-12-16] MEDS: Budesonide Respules 0.5 MG/2 ML AMPUL.NEB. INHALATION ×2 (06:30→19:28)
[2018-12-16] MEDS: Loratadine 10 MG Tablet PO (06:31)
[2018-12-16] MEDS: Carvedilol 6.25 MG Tablet PO ×2 (06:31→17:21)
[2018-12-16] MEDS: Losartan Potassium 25 MG Tablet PO (06:31)
[2018-12-16] MEDS: Levothyroxine 100 MCG Tablet PO (06:31)
[2018-12-16] MEDS: Pantoprazole Sodium 40 MG Tablet PO (06:31)
[2018-12-16] MEDS: Furosemide 80 MG Tablet PO (06:33)
[2018-12-16] MEDS: Acetaminophen 500 MG Tablet 1000 MG PO (06:37)
[2018-12-16 07:00] VITALS: PULSE 68; RESP 16; O2SAT 96
[2018-12-16] MEDS: Iron Polysaccharide Complex 150 MG CAPSULE PO (08:18)
[2018-12-16] MEDS: Magnesium Oxide 400 MG Tablet PO ×2 (08:19→17:21)
[2018-12-16] MEDS: Hydroxychloroquine 200 MG Tablet PO ×2 (08:19→17:21)
[2018-12-16] MEDS: Multivitamins,Therapeutic Tablet 1 TABLET PO (08:19)
[2018-12-16 11:03] LABS: Hemoglobin 9.4 g/dl (13.0-16.5)
--- NOTE | 2018-12-16 13:09 | MDS.RN ---
Information for the mds was obtained from review of the clinical record, interview of resident, staff, and direct observation of resident's care.
--- NOTE | 2018-12-16 14:36 | CASEMGMT ---
Plan of care meeting held today with pt, and daughter present. Pt is receiving PT/OT and progressing with care. Pt would like to discharge 12/22/18 home with his . Therapy is recommending home health PT/OT and pt would like to use [facility]. Pt has information for medical alert system. SW will continue to follow for d/c planning. NATACHA Langford
[2018-12-16 16:00] VITALS: BP 105/47; PULSE 66; RESP 16; TEMP 36.2; O2SAT 93
[2018-12-16] MEDS: Furosemide 40 MG Tablet PO (17:21)
--- NOTE | 2018-12-16 18:13 | NURSING ---
pt with mass to side of rt tongue and sl dusky in color though no lesion obs. pt and reported that had bad seizure and may have bit tongue? will let dr. hansen know.
--- NOTE | 2018-12-16 18:35 | NURSING ---
dr jade REDDY'sharmila fluid restriction.
[2018-12-16 19:28] VITALS: PULSE 76; RESP 18
[2018-12-16] MEDS: oxyCODONE 5 MG Tablet PO (20:32)
[2018-12-16] MEDS: Atorvastatin Calcium 40 MG Tablet PO (20:32)
[2018-12-17] MEDS: Pantoprazole Sodium 40 MG Tablet PO (04:53)
[2018-12-17] MEDS: Sodium Chloride 0.65% 1 SPRAY SPRAY.BTL 2 SPRAY NASAL ×3 (04:53→21:01)
[2018-12-17] MEDS: Levothyroxine 100 MCG Tablet PO (04:54)
[2018-12-17] MEDS: Losartan Potassium 25 MG Tablet PO (04:54)
[2018-12-17] MEDS: Loratadine 10 MG Tablet PO (04:54)
[2018-12-17] MEDS: Carvedilol 6.25 MG Tablet PO ×2 (04:54→17:31)
[2018-12-17] MEDS: Umeclidinium Bromide Inhaler 1 PUFF IH (04:55)
[2018-12-17] MEDS: Menthol/Lanolin/Calamine/Znox 113 GM Tube 1 APPLIC TOPICAL ×2 (04:55→21:01)
[2018-12-17] MEDS: Furosemide 80 MG Tablet PO (04:57)
[2018-12-17 07:25] VITALS: PULSE 74; RESP 16; O2SAT 98
[2018-12-17] MEDS: Budesonide Respules 0.5 MG/2 ML AMPUL.NEB. INHALATION ×2 (07:40→19:35)
[2018-12-17] MEDS: Iron Polysaccharide Complex 150 MG CAPSULE PO (07:52)
[2018-12-17] MEDS: Hydroxychloroquine 200 MG Tablet PO ×2 (07:52→17:29)
[2018-12-17] MEDS: Multivitamins,Therapeutic Tablet 1 TABLET PO (07:52)
[2018-12-17] MEDS: Magnesium Oxide 400 MG Tablet PO ×2 (07:52→17:29)
[2018-12-17 16:00] VITALS: BP 111/56; PULSE 72; RESP 20; TEMP 36.9; O2SAT 95
[2018-12-17] MEDS: Furosemide 40 MG Tablet PO (17:29)
[2018-12-17 19:35] VITALS: PULSE 74; RESP 15
[2018-12-17] MEDS: Atorvastatin Calcium 40 MG Tablet PO (21:02)
[2018-12-17 21:10] VITALS: PULSE 70; RESP 18; O2SAT 95
[2018-12-18] MEDS: Umeclidinium Bromide Inhaler 1 PUFF IH (06:00)
[2018-12-18] MEDS: Pantoprazole Sodium 40 MG Tablet PO (06:01)
[2018-12-18] MEDS: Furosemide 80 MG Tablet PO (06:01)
[2018-12-18] MEDS: Losartan Potassium 25 MG Tablet PO (06:01)
[2018-12-18] MEDS: Levothyroxine 100 MCG Tablet PO (06:01)
[2018-12-18] MEDS: Sodium Chloride 0.65% 1 SPRAY SPRAY.BTL 2 SPRAY NASAL ×3 (06:01→20:15)
[2018-12-18] MEDS: Carvedilol 6.25 MG Tablet PO ×2 (06:01→17:24)
[2018-12-18] MEDS: Loratadine 10 MG Tablet PO (06:01)
[2018-12-18] MEDS: Menthol/Lanolin/Calamine/Znox 113 GM Tube 1 APPLIC TOPICAL ×2 (06:06→20:15)
--- NOTE | 2018-12-18 06:47 | NURSING ---
Saline lock d/c catheter intact no concerns voiced during this time.
[2018-12-18 06:56] VITALS: PULSE 80; RESP 18; O2SAT 93
[2018-12-18] MEDS: Budesonide Respules 0.5 MG/2 ML AMPUL.NEB. INHALATION ×2 (06:56→19:55)
[2018-12-18] MEDS: Magnesium Oxide 400 MG Tablet PO ×2 (08:18→17:24)
[2018-12-18] MEDS: Iron Polysaccharide Complex 150 MG CAPSULE PO (08:18)
[2018-12-18] MEDS: Multivitamins,Therapeutic Tablet 1 TABLET PO (08:22)
[2018-12-18] MEDS: Hydroxychloroquine 200 MG Tablet PO ×2 (08:23→17:24)
[2018-12-18 14:04] VITALS: PULSE 72; RESP 18; O2SAT 96
[2018-12-18 15:26] VITALS: BP 116/48; PULSE 55; RESP 18; TEMP 36.8; O2SAT 98
[2018-12-18] MEDS: Furosemide 40 MG Tablet PO (17:24)
[2018-12-18] MEDS: Atorvastatin Calcium 40 MG Tablet PO (20:16)
[2018-12-18 20:39] VITALS: PULSE 80; RESP 18; O2SAT 93
[2018-12-19] MEDS: Menthol/Lanolin/Calamine/Znox 113 GM Tube 1 APPLIC TOPICAL ×2 (06:07→20:47)
[2018-12-19] MEDS: Carvedilol 6.25 MG Tablet PO ×2 (06:08→16:55)
[2018-12-19] MEDS: Furosemide 80 MG Tablet PO (06:08)
[2018-12-19] MEDS: Loratadine 10 MG Tablet PO (06:08)
[2018-12-19] MEDS: Levothyroxine 100 MCG Tablet PO (06:08)
[2018-12-19] MEDS: Losartan Potassium 25 MG Tablet PO (06:08)
[2018-12-19] MEDS: Pantoprazole Sodium 40 MG Tablet PO (06:08)
[2018-12-19] MEDS: Sodium Chloride 0.65% 1 SPRAY SPRAY.BTL 2 SPRAY NASAL ×3 (06:09→20:46)
[2018-12-19] MEDS: Umeclidinium Bromide Inhaler 1 PUFF IH (06:09)
[2018-12-19 06:57] VITALS: PULSE 72; RESP 16; O2SAT 85
[2018-12-19] MEDS: Budesonide Respules 0.5 MG/2 ML AMPUL.NEB. INHALATION (06:57)
[2018-12-19 07:05] VITALS: O2SAT 94
[2018-12-19] MEDS: Hydroxychloroquine 200 MG Tablet PO ×2 (08:02→16:55)
[2018-12-19] MEDS: Multivitamins,Therapeutic Tablet 1 TABLET PO (08:02)
[2018-12-19] MEDS: Magnesium Oxide 400 MG Tablet PO ×2 (08:02→16:55)
[2018-12-19] MEDS: Iron Polysaccharide Complex 150 MG CAPSULE PO (08:02)
--- NOTE | 2018-12-19 08:03 | CPS ---
Patient found at 0655 with nasal cannula disconnected from flowmeter, sats at 85%, placed back on 3lpm and patient sats increased into 90's.
[2018-12-19 14:22] VITALS: BP 100/47; PULSE 76; RESP 16; TEMP 36.9; O2SAT 99
[2018-12-19] MEDS: Furosemide 40 MG Tablet PO (16:55)
[2018-12-19] MEDS: Atorvastatin Calcium 40 MG Tablet PO (20:46)
[2018-12-19 21:00] VITALS: BP 100/48; PULSE 74; RESP 20; TEMP 36.9; O2SAT 94
[2018-12-19 22:00] VITALS: BP 113/60; PULSE 70; RESP 18; O2SAT 93
[2018-12-20 06:35] VITALS: PULSE 79; RESP 20; O2SAT 94
[2018-12-20] MEDS: Budesonide Respules 0.5 MG/2 ML AMPUL.NEB. INHALATION (06:35)
[2018-12-20] MEDS: Acetaminophen 500 MG Tablet 1000 MG PO (06:46)
[2018-12-20] MEDS: Carvedilol 6.25 MG Tablet PO ×2 (06:47→17:12)
[2018-12-20] MEDS: Sodium Chloride 0.65% 1 SPRAY SPRAY.BTL 2 SPRAY NASAL ×3 (06:47→20:11)
[2018-12-20] MEDS: Levothyroxine 100 MCG Tablet PO (06:47)
[2018-12-20] MEDS: Pantoprazole Sodium 40 MG Tablet PO (06:47)
[2018-12-20] MEDS: Losartan Potassium 25 MG Tablet PO (06:47)
[2018-12-20] MEDS: Loratadine 10 MG Tablet PO (06:47)
[2018-12-20] MEDS: Furosemide 80 MG Tablet PO (06:47)
[2018-12-20] MEDS: Umeclidinium Bromide Inhaler 1 PUFF IH (06:48)
[2018-12-20] MEDS: Menthol/Lanolin/Calamine/Znox 113 GM Tube 1 APPLIC TOPICAL ×2 (06:56→20:14)
[2018-12-20] MEDS: Hydroxychloroquine 200 MG Tablet PO ×2 (07:58→17:12)
[2018-12-20] MEDS: Multivitamins,Therapeutic Tablet 1 TABLET PO (07:58)
[2018-12-20] MEDS: Magnesium Oxide 400 MG Tablet PO ×2 (07:58→17:12)
[2018-12-20] MEDS: Iron Polysaccharide Complex 150 MG CAPSULE PO (07:59)
--- NOTE | 2018-12-20 08:20 | PCM.DC ---
- Discharge Diagnoses Current Active Problems: Current Active and Chronic Problems (Last Reviewed 11/29/18 @ 06:25 by Radha Payan) Debility (Acute) Epistaxis (Acute) Aspiration pneumonia (Acute) Seizure (Acute) Hyponatremia (Acute) Chronic systolic (congestive) heart failure (Chronic) Coronary artery disease (Chronic) Chronic obstructive pulmonary disease (Chronic) Hypothyroidism (Chronic) Allergic rhinitis (Chronic) GERD (gastroesophageal reflux disease) (Chronic) Hypokalemia (Chronic) LV (left ventricular) mural thrombus (Chronic) You will use the following diet at home:: No restrictions, Regular Your food should be the consistency of: Regular Your liquids should be the consistency of: Regular/Thin Discharge Activity: Return to Normal Activity, May Shower, Use Walker Weight Bearing Status: Weight bearing as tolerated Call your doctor if you observe: Fever of 101 or Higher, Inability to urinate, Inability to have a bowel movement, Shortness of breath, Chest pain, Uncontrolled pain Allergies/Adverse Reactions: Allergies No Known Allergies Allergy (Verified 11/29/18 06:24) Medications to take at Discharge Hydroxychloroquine [Plaquenil] 200 mg PO BIDCM 08/27/16 Multivitamin [Multiple Vitamins] 1 ea PO DAILY 08/27/16 fluticasone propionate 50 mcg/actuation nasal spray,suspension 2 spray INTRANASAL BID PRN PRN g 10/15/17 atorvastatin 40 mg tablet 40 mg PO QHS #90 tab 07/27/18 atezolizumab 1,200 mg/20 mL (60 mg/mL) intravenous solution 60 mg IV UD ml 08/27/18 levothyroxine 100 mcg tablet 100 mcg PO DAILY 09/28/18 aclidinium bromide 400 mcg/actuation breath activated powder inhaler 1 inh INHALATION BID 10/07/18 albuterol sulfate HFA 90 mcg/actuation aerosol inhaler 2 puff INHALATION Q4H PRN PRN g 11/25/18 budesonide-formoterol HFA 160 mcg-4.5 mcg/actuation aerosol inhaler 2 puff INHALATION BID 11/25/18 Carvedilol 6.25 mg PO BID 12/01/18 Cetirizine HCl [Zyrtec] 10 mg PO DAILY 12/01/18 Cholecalciferol (VIT D3) [Vitamin D3] 1,000 unit PO BID 12/01/18 Furosemide 80 mg PO DAILY 12/01/18 Furosemide [Lasix] 40 mg PO QHS 12/01/18 Losartan Potassium [Cozaar] 25 mg PO DAILY 12/01/18 Omeprazole 40 mg PO DAILY 12/01/18 Magnesium Oxide [Mag-Ox 400] 400 mg PO BIDCM 12/07/18 Potassium Chloride [K-Dur] 40 meq PO BID 12/07/18 Sodium Chloride 0.65% [[place] Nasal [place]] 2 spray NASAL TID 12/07/18 Acetaminophen [Tylenol] 1,000 mg PO Q6H PRN PRN tablet 12/20/18 Albuterol Inhaler [Ventolin Hfa] 2 puff INHALATION Q4H PRN PRN inhaler 12/20/18 Iron Polysaccharide Complex [Ferrex 150] 150 mg PO DAILYCM #30 capsule 12/20/18 Lidocaine 2% Viscous [Xylocaine Viscous] 15 ml PO Q3H PRN #300 ml 12/20/18 Menthol/Lanolin/Calamine/Znox [Calmoseptine Ointment] 1 applic TOPICAL 0600,2200 tube 12/20/18 The following prescriptions were given: Iron Polysaccharide Complex [Ferrex 150] 150 mg PO DAILYCM #30 capsule Lidocaine 2% Viscous [Xylocaine Viscous] 15 ml PO Q3H PRN #300 ml PRN Reason: MOUTH IRRITATION Primary Care Physician: Joseluis Foote III, MD [Primary Care Provider] - Please follow up with your Primary Care Physician in: 1 week. Test Results: Test results from this visit will be discussed in further detail at your follow-up appointment, if applicable. Please Follow Up With: Ben Murcia DO When: [phone] Please Follow Up With: Clovis Rodríguez MD When: [phone] Please Follow Up With: Dr Cantrell When: [phone] Please Follow Up With: SAMMY VALDES When: [phone] Please Follow Up With: [facility] Please Follow Up With: Dr. Murcia Proposed Discharge Date: 12/22/18
--- NOTE | 2018-12-20 08:24 | DS.PCM_ITS ---
Discharge Date and Diagnosis - Problem List Patient Problems: Active and Suspected Problems (Last Reviewed 11/29/18 @ 06:25 by Radha Payan) Debility (Acute) Epistaxis (Acute) Aspiration pneumonia (Acute) Seizure (Acute) Hyponatremia (Acute) Date of Admission: 12/07/18 Date of Discharge: 12/22/18 - Primary Discharge Diagnosis Active and Suspected Problems (Last Reviewed 11/29/18 @ 06:25 by Radha Payan) Debility (Acute) Epistaxis (Acute) Aspiration pneumonia (Acute) Seizure (Acute) Hyponatremia (Acute) - Secondary Discharge Diagnosis Chronic Problems (Last Reviewed 11/29/18 @ 06:25 by Radha Payan) Lung cancer (Chronic) Chronic systolic (congestive) heart failure (Chronic) Coronary artery disease (Chronic) Chronic obstructive pulmonary disease (Chronic) Hypothyroidism (Chronic) Allergic rhinitis (Chronic) GERD (gastroesophageal reflux disease) (Chronic) Hypokalemia (Chronic) LV (left ventricular) mural thrombus (Chronic) Implantable cardioverter-defibrillator (ICD) in situ (Chronic 12/27/16) [employer] Dynogen EL ICD, model D150; Seriao # [id number] Secondary pulmonary arterial hypertension (Chronic) Nonischemic cardiomyopathy (Chronic) EF 15-20% per heart cath 08/29/2016; 20-35% per echo 12/17/2016 Severe left ventricular systolic dysfunction (Chronic) EF 15-20% per heart cath 08/29/2016; 20-35% per echo 12/17/2016 History of left heart catheterization (Chronic) Mild, nonobstructive CAD per [facility] 08/29/2016 @ [facility] per Dr. Cantrell Atherosclerotic heart disease of [place] coronary artery without angina pectoris (Chronic) Mild, nonobstructive CAD per [facility] 08/29/2016 @ [facility] per Dr. Cantrell PVD (peripheral vascular disease) (Chronic) Long-term use of high-risk medication (Chronic) Stage 3 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) FEV1 31 PND (paroxysmal nocturnal dyspnea) (Chronic) Hyperlipidemia (Chronic) senior living current use of anticoagulant (Chronic) Psoriatic arthritis (Chronic) Acne cystica (Chronic) CHF (congestive heart failure), NYHA class I (Chronic) Pulmonary hypertension (Chronic) RVSP 47mm hg per echo 08/28/2016 (unable to estimate per Echo 12/17/2016) Hospital Course and Treatment Imaging Results: 12/07/18 14:43 Diet: Cardiac/Low Cholesterol Food consistency:: Regular Liquid Consistency:: Regular/Thin Is pt able to select menu?: Yes Operations: None, - - Status post chest tube after lung biopsy removal Procedures: None Summary of Care Provided: The patient is a 67 year old Male with below past medical history significant for lung cancer with brain mets, hospitalized for hyponatremia, complicated by acute respiratory failure, seizure, epistaxis, aspiration pneumonia, admitted to TCU with debility, here for rehabilitation, strengthening, prior to discharge home with spouse. On TCU, warfarin stopped due to high risk of bleeding, cardiology in agreement. Resident transfused 2 units PRBC, with good results. Discharge home with spouse, home health services for PT/OT. Patient Problems: Active and Suspected Problems (Last Reviewed 11/29/18 @ 06:25 by Radha Payan) Debility (Acute) Epistaxis (Acute) Aspiration pneumonia (Acute) Seizure (Acute) Hyponatremia (Acute) - Physical Exam Vital Signs Temp Pulse Resp BP Pulse Ox 98.4 F 79 20 H 113/60 94 12/19/18 21:00 12/20/18 06:35 12/20/18 06:35 12/19/18 22:00 12/20/18 06:35 Oxygen Flow Rate (L/min) 3 Oxygen Delivery Method Nasal Cannula Weight: 68.039 kg Body Mass Index (BMI) 25.9 Finger Stick Blood Glucose 126 Intake and Output for Last 24 Hours 12/18/18 12/19/18 12/20/18 23:59 23:59 23:59 Intake Total 1020 / 1020 600 / 600 120 / 120 Output Total 1075 / 1075 850 / 850 350 / 350 Balance -55 / -55 -250 / -250 -230 / -230 Discharge Diet: No Restrictions Discharge Activity: Return to Normal Activity, May Shower, Use Walker Weight Bearing Status: Weight bearing as tolerated Call your doctor if you observe: Fever of 101 or Higher, Inability to urinate, Inability to have a bowel movement, Shortness of breath, Chest pain, Uncontrolled pain Home Medications: Medications to take at Discharge Hydroxychloroquine [Plaquenil] 200 mg PO BIDCM 08/27/16 Multivitamin [Multiple Vitamins] 1 ea PO DAILY 08/27/16 fluticasone propionate 50 mcg/actuation nasal spray,suspension 2 spray INTRANASAL BID PRN PRN g 10/15/17 atorvastatin 40 mg tablet 40 mg PO QHS #90 tab 07/27/18 atezolizumab 1,200 mg/20 mL (60 mg/mL) intravenous solution 60 mg IV UD ml 08/27/18 levothyroxine 100 mcg tablet 100 mcg PO DAILY 09/28/18 aclidinium bromide 400 mcg/actuation breath activated powder inhaler 1 inh INHALATION BID 10/07/18 albuterol sulfate HFA 90 mcg/actuation aerosol inhaler 2 puff INHALATION Q4H PRN PRN g 11/25/18 budesonide-formoterol HFA 160 mcg-4.5 mcg/actuation aerosol inhaler 2 puff INHALATION BID 11/25/18 Carvedilol 6.25 mg PO BID 12/01/18 Cetirizine HCl [Zyrtec] 10 mg PO DAILY 12/01/18 Cholecalciferol (VIT D3) [Vitamin D3] 1,000 unit PO BID 12/01/18 Furosemide 80 mg PO DAILY 12/01/18 Furosemide [Lasix] 40 mg PO QHS 12/01/18 Losartan Potassium [Cozaar] 25 mg PO DAILY 12/01/18 Omeprazole 40 mg PO DAILY 12/01/18 Magnesium Oxide [Mag-Ox 400] 400 mg PO BIDCM 12/07/18 Potassium Chloride [K-Dur] 40 meq PO BID 12/07/18 Sodium Chloride 0.65% [[place] Nasal [place]] 2 spray NASAL TID 12/07/18 Acetaminophen [Tylenol] 1,000 mg PO Q6H PRN PRN tablet 12/20/18 Albuterol Inhaler [Ventolin Hfa] 2 puff INHALATION Q4H PRN PRN inhaler 12/20/18 Iron Polysaccharide Complex [Ferrex 150] 150 mg PO DAILYCM #30 capsule 12/20/18 Lidocaine 2% Viscous [Xylocaine Viscous] 15 ml PO Q3H PRN #300 ml 12/20/18 Menthol/Lanolin/Calamine/Znox [Calmoseptine Ointment] 1 applic TOPICAL 0600,2200 tube 12/20/18 Following Prescrptions Were Given to Patient: Iron Polysaccharide Complex [Ferrex 150] 150 mg PO DAILYCM #30 capsule Lidocaine 2% Viscous [Xylocaine Viscous] 15 ml PO Q3H PRN #300 ml PRN Reason: MOUTH IRRITATION Primary Care Physician: Joseluis Foote III, MD [Primary Care Provider] - Please follow up with your Primary Care Physician in: 1 week. Please Follow Up With: Ben Murcia DO When: [phone] Please Follow Up With: Clovis Rodríguez MD When: [phone] Please Follow Up With: Dr Cantrell When: [phone] Please Follow Up With: SAMMY VALDES When: [phone] Please Follow Up With: [facility] Please Follow Up With: Dr. Murcia Disposition: Home with Home Health Minutes spent on discharge:: 35 Patient Condition:: Stable Medical Necessity - Tobacco Use Smoking Status: Former smoker Tobacco Use: Non-smoker Meaningful Use Info Meaningful Use Diagnoses (Choose all that apply): None applicable
--- NOTE | 2018-12-20 08:25 | HHNOTE_ITS ---
Home Health Note - Plan Overview of reason of hospitalization: The patient is a 67 year old Male with below past medical history significant for lung cancer with brain mets, hospitalized for hyponatremia, complicated by acute respiratory failure, seizure, epistaxis, aspiration pneumonia, admitted to TCU with debility, here for rehabilitation, strengthening, prior to discharge home with spouse. On TCU, warfarin stopped due to high risk of bleeding, cardiology in agreement. Resident transfused 2 units PRBC, with good results. Discharge home with spouse, home health services for PT/OT. Problems: Patient was seen for (Last Reviewed 11/29/18 @ 06:25 by Radha Payan) Debility (Acute) Epistaxis (Acute) Aspiration pneumonia (Acute) Seizure (Acute) Hyponatremia (Acute) Chronic systolic (congestive) heart failure (Chronic) Coronary artery disease (Chronic) Chronic obstructive pulmonary disease (Chronic) Hypothyroidism (Chronic) Allergic rhinitis (Chronic) GERD (gastroesophageal reflux disease) (Chronic) Hypokalemia (Chronic) LV (left ventricular) mural thrombus (Chronic) Complete List of Medical Problems (Last Reviewed 11/29/18 @ 06:25 by Radha Payan) Lung cancer (Chronic) Anemia (Acute) Debility (Acute) Epistaxis (Acute) Aspiration pneumonia (Acute) Seizure (Acute) Hyponatremia (Acute) Chronic systolic (congestive) heart failure (Chronic) Coronary artery disease (Chronic) Chronic obstructive pulmonary disease (Chronic) Hypothyroidism (Chronic) Allergic rhinitis (Chronic) GERD (gastroesophageal reflux disease) (Chronic) Hypokalemia (Chronic) LV (left ventricular) mural thrombus (Chronic) Skin tear of left forearm without complication (Acute) Skin tear of right forearm without complication (Acute) Lesion of pelvic bone (Acute) Cancer of upper lobe of left lung (Acute) Pneumothorax after biopsy (Acute) Shortness of breath (Acute) Left ventricular thrombus (Acute) Laceration of right elbow without complication (Acute) Implantable cardioverter-defibrillator (ICD) in situ (Chronic 12/27/16) Abrasion of skin (Acute) Secondary pulmonary arterial hypertension (Chronic) Nonischemic cardiomyopathy (Chronic) Severe left ventricular systolic dysfunction (Chronic) History of left heart catheterization (Chronic) Atherosclerotic heart disease of [place] coronary artery without angina pectoris (Chronic) Diverticula of colon (Acute) PVD (peripheral vascular disease) (Chronic) Long-term use of high-risk medication (Chronic) Stage 3 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) PND (paroxysmal nocturnal dyspnea) (Chronic) Hyperlipidemia (Chronic) SOB (shortness of breath) (Acute) USP current use of anticoagulant (Chronic) Psoriatic arthritis (Chronic) Acne cystica (Chronic) CHF (congestive heart failure), NYHA class I (Chronic) Pulmonary hypertension (Chronic) - Requirements and Reasons Disciplines Needed/Ordered: Physical Therapy Reason for Disciplines: Disease Specific Monitoring/education, Medication Management/Knowledge Deficit, Gait Training, Stair Training, Fall Prevention, Home Safety/Equipment Instruction, Balance and/or Posture Training, Transfer Training Related To: Change in Medical Treatment Plan, Shortness of Breath with Activity, Physical Impairments, Unsteady Gait/Balance, Fall Risk Patient is unable to leave the home: Without Aid of Supportive Devices (crutc hes, cane, wheelchair, walker), Without the assistance of another person - Additional Disciplines Additional Disciplines Needed/Ordered: Occupational Therapy
--- NOTE | 2018-12-20 10:05 | NURSING ---
OK PER THERAPY FOR PT TO BE AB [facility]OLA IN ROOM. JANIE BAROTN AWARE
[2018-12-20 13:00] VITALS: PULSE 73; RESP 18; O2SAT 97
--- NOTE | 2018-12-20 13:56 | CASEMGMT ---
Social Work SW met with pt who is planning to d/c home with on 12/22/18. Team is recommending home health PT/RN/SW and pt is agreeable to this and would like to use [facility]. Pt has home O2 and nebulizer and does not need other DME at this time. Phone call placed to Lashonda at Dr. Raza's office ([facility] radiation) and she states pt can restart radiation on Thursday or and pt should call to schedule. PT notified of this and in agreement to talk to and will schedule an appointment that works for them. Referral made to Ivelisse at [facility] and they are able to accept pt. Phone call to MITZY at [facility] oncology as pt and have expressed concerns of feeling overwhelmed with all of appointments and keeping things lined up. Call to MITZY and VM left to see if support can be provided to pt and family. No other d/c needs at this time. Plan: D/C 12/22/18 with . [facility] PT/OT/MITZY. NATACHA Langford
[2018-12-20 15:33] VITALS: BP 116/57; PULSE 67; RESP 16; TEMP 37; O2SAT 96
[2018-12-20] MEDS: Furosemide 40 MG Tablet PO (17:12)
[2018-12-20] MEDS: Atorvastatin Calcium 40 MG Tablet PO (20:10)
[2018-12-21] MEDS: Umeclidinium Bromide Inhaler 1 PUFF IH (06:32)
[2018-12-21] MEDS: Sodium Chloride 0.65% 1 SPRAY SPRAY.BTL 2 SPRAY NASAL ×3 (06:32→19:55)
[2018-12-21] MEDS: Pantoprazole Sodium 40 MG Tablet PO (06:33)
[2018-12-21] MEDS: Losartan Potassium 25 MG Tablet PO (06:33)
[2018-12-21] MEDS: Levothyroxine 100 MCG Tablet PO (06:33)
[2018-12-21] MEDS: Carvedilol 6.25 MG Tablet PO ×2 (06:33→17:00)
[2018-12-21] MEDS: Furosemide 80 MG Tablet PO (06:33)
[2018-12-21] MEDS: Menthol/Lanolin/Calamine/Znox 113 GM Tube 1 APPLIC TOPICAL ×2 (06:35→19:54)
[2018-12-21] MEDS: Loratadine 10 MG Tablet PO (06:35)
[2018-12-21 06:56] VITALS: PULSE 84; RESP 18; O2SAT 97
[2018-12-21] MEDS: Budesonide Respules 0.5 MG/2 ML AMPUL.NEB. INHALATION ×2 (06:56→19:35)
[2018-12-21] MEDS: Hydroxychloroquine 200 MG Tablet PO ×2 (07:42→16:59)
[2018-12-21] MEDS: Magnesium Oxide 400 MG Tablet PO ×2 (07:42→16:59)
[2018-12-21] MEDS: Multivitamins,Therapeutic Tablet 1 TABLET PO (07:42)
[2018-12-21] MEDS: Iron Polysaccharide Complex 150 MG CAPSULE PO (07:42)
--- NOTE | 2018-12-21 08:37 | NURSING ---
Left outside foot noted to be red and blanchable, dry and flaking. Loren LIMA made aware.
[2018-12-21 15:54] VITALS: BP 109/54; PULSE 70; RESP 16; TEMP 36.8; O2SAT 100
[2018-12-21] MEDS: Furosemide 40 MG Tablet PO (17:00)
[2018-12-21 19:35] VITALS: PULSE 83; RESP 18
[2018-12-21] MEDS: Atorvastatin Calcium 40 MG Tablet PO (19:54)
[2018-12-21] MEDS: oxyCODONE 5 MG Tablet PO (19:59)
[2018-12-22 05:53] LABS: Absolute Lymphocyte Count 0.68 X10^3/ul (0.83-4.51); Absolute Neutrophil Count 2.3 X10^3/uL (2.0-7.7); Basophil# 0.01 X10^3/uL; Basophil% 0.3 % (0-1); Eosinophil# 0.13 X10^3/uL; Eosinophils% 3.8 % (0-5); Hematocrit 27.4 % (40-54); Hemoglobin 8.6 g/dl (13.0-16.5); Lymphocyte # 0.68 X10^3/ul (4.0); Lymphocyte % 19.8 % (19-41); Mean Corp Hgb Conc 31.4 g/gl (32-36); Mean Corpuscular Hgb 31.6 pg (27.0-32.0); Mean Corpuscular Volume 100.7 fL (80-94); Mean Platelet Vol. 9.9 fl (6.2-12.0); Monocyte# 0.33 X10^3/uL; Monocyte% 9.6 % (0-10); Neutrophil # 2.29 X10^3/uL (2.7-7.7); Neutrophil % 66.5 % (47-70); Platelet Count 112 K/mm3 (150-450); RBC Distribution Width CV 14.9 % (11.6-14.6); Red Blood Count 2.72 M/mm3 (4.6-6.2); White Blood Count 3.4 K/mm3 (4.4-11.0)
[2018-12-22 05:54] LABS: POSITIVE COUNT NO; POSITIVE DIFFERENTIAL NO; POSITIVE MORPHOLOGY NO
[2018-12-22 06:00] LABS: Anion Gap 4 (5-15); BUN 21 mg/dL (7-18); BUN/Creat Ratio 21.6 RATIO (10-20); Calcium,Total 8.5 mg/dL (8.5-10.1); Chloride 99 mmol/L (98-107); Creatinine, Serum 0.97 mg/dL (0.70-1.30); EST Glomerular Filtration Rate 82 mL/min (>60); Est Glom Filt Rate - Afr Amer 99 mL/min (>60); Glucose 91 mg/dL (74-106); Potassium 4.1 mmol/L (3.5-5.1); Sodium Level 137 mmol/L (136-145)
[2018-12-22] MEDS: Loratadine 10 MG Tablet PO (06:06)
[2018-12-22] MEDS: Levothyroxine 100 MCG Tablet PO (06:06)
[2018-12-22] MEDS: Furosemide 80 MG Tablet PO (06:06)
[2018-12-22] MEDS: Losartan Potassium 25 MG Tablet PO (06:06)
[2018-12-22] MEDS: Carvedilol 6.25 MG Tablet PO (06:06)
[2018-12-22] MEDS: Menthol/Lanolin/Calamine/Znox 113 GM Tube 1 APPLIC TOPICAL (06:07)
[2018-12-22] MEDS: Sodium Chloride 0.65% 1 SPRAY SPRAY.BTL 2 SPRAY NASAL (06:07)
[2018-12-22] MEDS: Umeclidinium Bromide Inhaler 1 PUFF IH (06:07)
[2018-12-22] MEDS: Pantoprazole Sodium 40 MG Tablet PO (06:08)
[2018-12-22] MEDS: Iron Polysaccharide Complex 150 MG CAPSULE PO (07:43)
[2018-12-22 07:44] VITALS: PULSE 80; RESP 16; O2SAT 97
[2018-12-22] MEDS: Multivitamins,Therapeutic Tablet 1 TABLET PO (07:44)
[2018-12-22] MEDS: Hydroxychloroquine 200 MG Tablet PO (07:44)
[2018-12-22] MEDS: Magnesium Oxide 400 MG Tablet PO (07:44)
[2018-12-22] MEDS: Budesonide Respules 0.5 MG/2 ML AMPUL.NEB. INHALATION (07:44)
[2018-12-22 08:58] VITALS: PULSE 79; RESP 18; O2SAT 97
--- NOTE | 2018-12-22 09:44 | NURSING ---
Right outside foot noted to be red and blanchable. Loren LIMA made aware.
[2018-12-22 10:42] VITALS: BP 95/62; PULSE 69; RESP 16; TEMP 36.5; O2SAT 94
--- NOTE | 2018-12-31 10:11 | MDS.RN ---
Information for the mds was obtained from review of the clinical record, interview of resident, staff, and direct observation of resident's care.
== END 2018-12-22 12:53 | disposition home health service (06) | DRG 948 ==
PROVIDERS: Admitting Provider Family Medicine Geriatric Medicine; Family Provider Family Medicine; PCP Family Medicine; Referring Provider Family Medicine Geriatric Medicine; Visit Provider Family Medicine Geriatric Medicine
DX: R53.81 Other malaise (principal); C34.90 Malignant neoplasm of unspecified part of unspecified bronchus or lung; C79.31 Secondary malignant neoplasm of brain; I50.22 Chronic systolic (congestive) heart failure; E87.6 Hypokalemia; K21.9 Gastro-esophageal reflux disease without esophagitis; E03.9 Hypothyroidism, unspecified; L40.50 Arthropathic psoriasis, unspecified; E55.9 Vitamin D deficiency, unspecified; E78.5 Hyperlipidemia, unspecified; J44.9 Chronic obstructive pulmonary disease, unspecified; I25.10 Atherosclerotic heart disease of native coronary artery without angina pectoris; I51.3 Intracardiac thrombosis, not elsewhere classified; I27.21 Secondary pulmonary arterial hypertension; I73.9 Peripheral vascular disease, unspecified; M19.90 Unspecified osteoarthritis, unspecified site; Z87.891 Personal history of nicotine dependence; Z95.810 Presence of automatic (implantable) cardiac defibrillator
CPT/HCPCS: 36415; 36430; 80048; 85014; 85018; 85025; 85610; 86850; 86900; 86920; 86922; 94640; 97110; 97116; 97163; 97166; 97530; 97535; 97802; J7040; P9016; A4216; J1940

== ENCOUNTER → 2018-12-15 10:12 | Outpatient (CLI) | payer MEDICARE, OTHER, SELFPAY ==
[2018-12-15] VITALS (7 sets, daily range): BP systolic 96–126; BP diastolic 37–54; PULSE 65–68; RESP 16–18; TEMP 36–36.7; O2SAT 93–100; BMI 25.9; BMI 25.3
[2018-12-15] MEDS: Furosemide 20 MG/2 ML VIAL IV (13:47)
== END ==
PROVIDERS: Family Provider Family Medicine; PCP Family Medicine; Referring Provider Family Medicine Geriatric Medicine; Visit Provider Family Medicine Geriatric Medicine
DX: D64.9 Anemia, unspecified (principal)
CPT/HCPCS: 36415; 36430; 86850; 86900; 86920; 86922; J7040; P9016; A4216; J1940

== ENCOUNTER 2019-01-13 06:00 | Outpatient (RCR) | payer SELFPAY ==
[2018-12-15 11:28] VITALS: BMI 25.2
== END 2019-01-14 23:59 ==
LOC: PR 06:00
PROVIDERS: Family Provider Family Medicine; PCP Family Medicine; Referring Provider Internal Medicine Critical Care Medicine; Visit Provider Internal Medicine Critical Care Medicine
DX: Z00.00 Encounter for general adult medical examination without abnormal findings (principal)

== ENCOUNTER 2019-02-10 06:00 | Outpatient (RCR) | payer SELFPAY ==
[2019-01-15 00:50] VITALS: BMI 25.3
== END 2019-02-13 23:59 ==
LOC: PR 06:00
PROVIDERS: Family Provider Family Medicine; PCP Family Medicine; Referring Provider Internal Medicine Critical Care Medicine; Visit Provider Internal Medicine Critical Care Medicine
DX: Z00.00 Encounter for general adult medical examination without abnormal findings (principal)

== ENCOUNTER 2019-03-15 06:00 | Outpatient (RCR) | payer SELFPAY ==
[2019-01-27 18:32] VITALS: BMI 25.6
== END 2019-03-16 23:59 ==
LOC: PR 06:00
PROVIDERS: Family Provider Family Medicine; PCP Family Medicine; Referring Provider Internal Medicine Critical Care Medicine; Visit Provider Internal Medicine Critical Care Medicine
DX: Z00.00 Encounter for general adult medical examination without abnormal findings (principal)

== ENCOUNTER → 2019-03-17 14:55 | Outpatient (CLI) | payer MEDICARE, OTHER, SELFPAY ==
[2019-03-03 07:38] VITALS: BMI 25.6
--- NOTE | 2019-03-17 16:00 | PET_ITS ---
EXAMINATION: FDG PET CT INDICATIONS: A 68-year-old male with reported history of carcinoma of the lung presenting for restaging examination. COMPARISON EXAMINATION: Prior FDG PET study dated 10/18/18. TECHNIQUE: Following the intravenous administration of 16.85 mCi of F-18 deoxyglucose via the left antecubital fossa, multiplanar image acquisitions of the neck, chest, abdomen and pelvis to level of mid thigh, obtained at one hour post radiopharmaceutical administration contemporaneously interpreted with the current CT of the neck, chest, abdomen and pelvis to level of mid thigh, dated 03/17/19 via coregistration and prior FDG PET study dated 10/18/18 reveal: SERUM GLUCOSE LEVEL: 85 mg/dl. HEIGHT: 65 inches. WEIGHT: 153 lbs. FINDINGS: 1. There is no quantitative scintigraphic evidence of abnormal increased glucose metabolism on meticulous inspection of whole body acquisitions to include all three axis reconstructions. 2. Normal physiologic distribution of the radiopharmaceutical is apparent in the hepatic and splenic parenchyma, both renal units, bladder and visualized intestinal tract. There is uniform distribution of the radiopharmaceutical concentration defined in the visualized cerebellar hemispheres and cerebral cortical structures.? Diffuse intestinal tract activity is noted throughout all four quadrants of the abdominal-pelvic retroperitoneum, mesentery consistent with normal physiologic distribution of the radiopharmaceutical most accentuated in the right mid abdominal mesentery, segmental in presentation in the axial plane. An increase in FDG concentration is demonstration in the oral cavity to the right of the midline contiguous to dental hardware placement most consistent with metallic reconstruction artifact. (Gentry et al, AJR 179:1337, 2002). There is an increase in radiopharmaceutical concentration noted in the left upper posterior hemipelvis, which appears contiguous to the iliacus musculature generating a calculated maximum standard uptake value of 1.8 most consistent with a component of muscle tension artifact. Ventricular pacemaker placement is identified. The prior defined morphologic-anatomic changes noted on CT of the neck, chest, abdomen and pelvis manifest on the FDG PET CT study dated 10/18/18, 06/28/18 are essentially unchanged on the present examination. PET/PET/CT Tumor Base -Thigh Subs IMPRESSION: 1. NEGATIVE EXAMINATION. There is no definitive quantitative scintigraphic evidence of recurrent-metastatic viable neoplasm. 2. Prominent intestinal tract distribution of the radiopharmaceutical concentration is most consistent with physiologic tracer concentration. If intraluminal soft tissue mass formation is a diagnostic consideration, correlation with CT of the abdomen and pelvis with oral and intravenous contrast is recommended. (Doen et al, Journal of Nuclear Medicine, 30:E854, 2003). 3. Overall, compared to the prior FDG PET study dated 10/18/18, there is current and continued absence of defined viable neoplastic disease. Electronic Signature Iker Montalvo D.O. Electronically Signed: Iker Montalvo DO at 23:26 EDT Tel , Service support ,
== END ==
PROVIDERS: Family Provider Family Medicine; PCP Family Medicine; Referring Provider Internal Medicine Hematology & Oncology; Visit Provider Internal Medicine Hematology & Oncology
DX: C34.12 Malignant neoplasm of upper lobe, left bronchus or lung (principal); C79.51 Secondary malignant neoplasm of bone
CPT/HCPCS: 78815; A9552

== ENCOUNTER 2019-04-14 06:00 | Outpatient (RCR) | payer MEDICARE, OTHER, SELFPAY ==
[2019-03-03 07:38] VITALS: BMI 25.6
== END 2019-04-16 23:59 ==
LOC: PR 06:00
PROVIDERS: Family Provider Family Medicine; PCP Family Medicine; Referring Provider Internal Medicine Critical Care Medicine; Visit Provider Internal Medicine Critical Care Medicine
DX: Z00.00 Encounter for general adult medical examination without abnormal findings (principal)

== ENCOUNTER 2019-05-12 06:00 | Outpatient (RCR) | payer SELFPAY ==
[2019-04-06 13:57] VITALS: BMI 25.9
== END 2019-05-16 23:59 ==
LOC: PR 06:00
PROVIDERS: Family Provider Family Medicine; PCP Family Medicine; Referring Provider Internal Medicine Critical Care Medicine; Visit Provider Internal Medicine Critical Care Medicine
DX: Z00.00 Encounter for general adult medical examination without abnormal findings (principal)

== ENCOUNTER 2019-06-16 06:00 | Outpatient (RCR) | payer SELFPAY ==
[2019-04-06 13:57] VITALS: BMI 25.9
== END 2019-06-16 23:59 ==
LOC: PR 06:00
PROVIDERS: Family Provider Family Medicine; PCP Family Medicine; Referring Provider Internal Medicine Critical Care Medicine; Visit Provider Internal Medicine Critical Care Medicine
DX: Z00.00 Encounter for general adult medical examination without abnormal findings (principal)

== ENCOUNTER 2019-07-12 06:00 | Outpatient (RCR) | payer SELFPAY ==
[2019-04-06 13:57] VITALS: BMI 25.9
== END 2019-07-16 23:59 ==
LOC: PR 06:00
PROVIDERS: Family Provider Family Medicine; PCP Family Medicine; Referring Provider Internal Medicine Critical Care Medicine; Visit Provider Internal Medicine Critical Care Medicine
DX: Z00.00 Encounter for general adult medical examination without abnormal findings (principal)

== ENCOUNTER → 2019-07-18 07:29 | Outpatient (CLI) | payer MEDICARE, OTHER, SELFPAY ==
[2019-07-05 07:45] VITALS: BMI 25.9
--- NOTE | 2019-07-18 08:00 | PET_ITS ---
EXAMINATION: FDG PET CT INDICATIONS: A 68-year-old male with reported history of carcinoma of the lung presenting for restaging examination. COMPARISON EXAMINATION: Prior FDG PET study dated 03/17/19. INDEX LESION SIZE SUV INTERPRETATION NEW: Left upper posterior lung field-left upper lobe 1.0 Quantitative criteria for viable neoplasm are not fulfilled, sequential radiologic investigation recommended TECHNIQUE: Following the intravenous administration of 12.8 mCi of F-18 deoxyglucose via the left hand, multiplanar image acquisitions of the neck, chest, abdomen and pelvis to level of mid thigh, obtained at one hour post radiopharmaceutical administration contemporaneously interpreted with the current CT of the neck, chest, abdomen and pelvis to level of mid thigh, dated 07/18/19 via coregistration and prior FDG PET study dated 03/17/19 reveal: SERUM GLUCOSE LEVEL: 100 mg/dl. HEIGHT: 65 inches. WEIGHT: 151 lbs. FINDINGS: 1. A linear increase in glucose metabolism is newly visualized in the left upper hemithorax pulmonary parenchyma-left upper lobe generating a calculated maximum standard uptake value of 1.0. Uptake corresponds to a ground-glass density on review of CT of the chest dated 07/18/19. 2. Normal physiologic distribution of the radiopharmaceutical is apparent in the hepatic (2.8) and splenic parenchyma, both renal units, bladder and visualized intestinal tract. There is uniform distribution of the radiopharmaceutical concentration defined in the visualized cerebellar hemispheres and cerebral cortical structures.? Diffuse intestinal tract activity is noted throughout all four quadrants of the abdominal-pelvic retroperitoneum, mesentery consistent with normal physiologic distribution of the radiopharmaceutical. Prominent radiopharmaceutical concentration is defined in the oral cavity in proximity to dental hardware placement most consistent with metallic reconstruction artifact. (Gentry et al, AJR 179:1337, 2002). The left lobe of the liver remains prominent in size. Pertinent CT findings are as follows. CHEST: Emphysematous change is noted in the bilateral upper lung zones. Ventricular pacemaker placement is defined. Atherosclerotic calcification is defined in the thoracic aorta without evidence of dilatation, aneurysm formation. Coronary arterial calcification is observed. Bilateral axillary soft tissue densities with fatty hilus formation are ametabolic. There are no additional parenchymal densities-nodules defined in the right and left hemithorax demonstrating discernible, quantitatively significant increased FDG uptake. ABDOMEN AND PELVIS: Atherosclerotic calcification is defined in the abdominal aorta without evidence of dilatation, aneurysm formation. Abdominal-pelvic arterial calcification is observed. Calcification is defined in both kidneys. Colonic diverticulosis is noted without evidence of diverticulitis. Right and left inguinal soft tissue densities with fatty hilus formation are non-glucose avid. Subtle dystrophic calcification is manifest within the prostate gland without evidence of facilitated radiopharmaceutical concentration. SKELETAL: Degenerative changes defined in the cervical, thoracic and lumbar spine demonstrate no evidence for glucose hypermetabolism. Diffuse demineralization is defined. PET/PET/CT Tumor Base -Thigh Subs IMPRESSION: 1. NEGATIVE EXAMINATION. There is no definitive quantitative scintigraphic evidence of recurrent-metastatic viable neoplasm. 2. Mild increased glucose concentration observed in the left upper posterior lung-left upper lobe does not fulfill quantitative criteria for viable neoplasm. (Galen et al, Annals of Internal Medicine, 138:724, 2003). 3. Metabolic and/or anatomic stability may be ensured in the left hemithorax pulmonary parenchymal abnormality with repeat FDG PET study and/or CT of the thorax in 9-12 weeks. (Xiu, Journal of Nuclear Medicine 45:88, P2004. Carine, Seminars in Thoracic and Cardiovascular Surgery 14:292, 2002). 4. Prominent intestinal tract distribution of radiopharmaceutical is most consistent with physiologic tracer distribution. If intraluminal soft tissue mass formation is a diagnostic consideration, correlation with CT of the abdomen and pelvis with oral and intravenous contrast is recommended. (Doen et al, Journal of Nuclear Medicine, 30:I027, 2003). 5. Overall, compared to the prior FDG PET study dated 03/17/19, there is current and apparent continued absence of defined viable neoplastic disease. Newly identified increased FDG uptake noted in the left upper posterior lung-left upper lobe warrants short-term reevaluation with FDG PET CT imaging as defined. Electronic Signature Iker Montalvo D.O. Electronically Signed: Iker Montalvo DO at 23:49 EST Tel , Service support ,
== END ==
PROVIDERS: Family Provider Family Medicine; PCP Family Medicine; Referring Provider Internal Medicine Hematology & Oncology; Visit Provider Internal Medicine Hematology & Oncology
DX: C34.12 Malignant neoplasm of upper lobe, left bronchus or lung (principal)
CPT/HCPCS: 78815; A9552

== ENCOUNTER 2019-08-16 06:00 | Outpatient (RCR) | payer SELFPAY ==
[2019-07-05 07:45] VITALS: BMI 25.9
== END 2019-08-16 23:59 ==
LOC: PR 06:00
PROVIDERS: Family Provider Family Medicine; PCP Family Medicine; Referring Provider Internal Medicine Critical Care Medicine; Visit Provider Internal Medicine Critical Care Medicine
DX: Z00.00 Encounter for general adult medical examination without abnormal findings (principal)

== ENCOUNTER 2019-09-15 06:00 | Outpatient (RCR) | payer SELFPAY ==
[2019-07-05 07:45] VITALS: BMI 25.9
== END 2019-09-16 23:59 ==
LOC: PR 06:00
PROVIDERS: Family Provider Family Medicine; PCP Family Medicine; Referring Provider Internal Medicine Critical Care Medicine; Visit Provider Internal Medicine Critical Care Medicine
DX: Z00.00 Encounter for general adult medical examination without abnormal findings (principal)

== ENCOUNTER → 2019-10-05 07:39 | Outpatient (CLI) | payer MEDICARE, OTHER, SELFPAY ==
[2019-10-03 13:34] VITALS: BMI 25.0
[2019-10-05] VITALS (7 sets, daily range): BP systolic 108–148; BP diastolic 27–58; PULSE 62–74; RESP 16–18; TEMP 35.8–36.2; O2SAT 100; BMI 24.0
[2019-10-05] MEDS: Furosemide 20 MG/2 ML VIAL IV (12:15)
== END ==
PROVIDERS: PCP Family Medicine; Referring Provider Internal Medicine Hematology & Oncology; Visit Provider Internal Medicine Hematology & Oncology
DX: Z51.89 Encounter for other specified aftercare (principal); D64.81 Anemia due to antineoplastic chemotherapy
CPT/HCPCS: 36430; 86644; 86850; 86900; 86901; 86920; 86922; J7040; P9016; P9040; A4216; J1940

== ENCOUNTER 2019-10-13 06:00 | Outpatient (RCR) | payer SELFPAY ==
[2019-07-05 07:45] VITALS: BMI 25.9
== END 2019-10-15 23:59 ==
LOC: PR 06:00
PROVIDERS: Family Provider Family Medicine; PCP Family Medicine; Referring Provider Internal Medicine Critical Care Medicine; Visit Provider Internal Medicine Critical Care Medicine
DX: Z00.00 Encounter for general adult medical examination without abnormal findings (principal)

== ENCOUNTER 2019-10-27 06:00 | Outpatient (RCR) | payer SELFPAY ==
[2019-10-11 07:33] VITALS: BMI 24.0
== END 2019-11-15 23:59 ==
LOC: PR 06:00
PROVIDERS: Family Provider Family Medicine; PCP Family Medicine; Referring Provider Internal Medicine Critical Care Medicine; Visit Provider Internal Medicine Critical Care Medicine
DX: Z00.00 Encounter for general adult medical examination without abnormal findings (principal)

== ENCOUNTER 2019-12-19 15:29 | Emergency (ER) | payer MEDICARE, OTHER, SELFPAY ==
[2019-10-11 07:33] VITALS: BMI 24.0
[2019-12-19 15:33] VITALS: BP 148/73; PULSE 89; RESP 18; TEMP 36.4; O2SAT 100; BMI 26.1
[2019-12-19 15:44] VITALS: O2SAT 96
--- NOTE | 2019-12-19 16:14 | RAD_ITS ---
STUDY: X-RAY CHEST REASON FOR EXAM: Male, 68 years old. INCREASED SHORTNESS OF BREATH, HX COPD, CHF TECHNIQUE: Single AP portable view of the chest. COMPARISON: 12/01/2018 FINDINGS: Interval removal of endotracheal tube and nasogastric tube. Left subclavian single lead AICD which is unchanged. There is hyperinflation of the lungs consistent with chronic obstructive lung disease (COPD). Slightly elevated right hemidiaphragm which is unchanged. Normal size heart. Normal mediastinum and carina. Normal visualized pulmonary arteries. Normal visualized aortic arch and descending thoracic aorta. Normal visualized thoracic spine. Normal visualized ribs, clavicles, and shoulders. There is no demonstrated abnormality of the visualized soft tissue structures of the upper abdomen. RAD/Chest 1 View (Portable) IMPRESSION: 1. Interval removal of endotracheal tube and nasogastric tube. 2. Left subclavian single lead AICD which is unchanged. 3. Emphysema without pneumonia or atelectasis. Electronically Signed: Iker Amado MD at 16:30 EDT Tel , Service support ,
--- NOTE | 2019-12-19 16:14 | ED.DCSUM_ITS ---
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 Negative for: Chills, Fever, Sore throat Chest Pain: None Narrative: Patient has history of COPD along with lung cancer, which is in remission after being on chemotherapy in the past. He currently is on immunotherapy that he takes at home. He has had no recent illnesses, but started getting short of breath with exertion a few days ago, started getting worse so he called his oncologist and was referred to the ER since he has yet to be evaluated for this. He denies any pain or swelling in his legs recently, no history of DVT or PE and takes no 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. He does have a history of congestive heart failure and has an AICD as a result. He does not recall any stents. He denies any chest discomfort. He states he has not experienced much in the way of wheezing and cannot tell if this is his COPD or not, hence the reason he was sent here. Recent Illness/Hospitalization: No - Past Medical History (1) Debility Status: Chronic (2) Diverticula of colon Status: Chronic (3) Hyponatremia Status: Chronic (4) Pneumothorax after biopsy Status: Chronic (5) Acne cystica Status: Chronic (6) Allergic rhinitis Status: Chronic (7) Anemia Status: Chronic (8) Atherosclerotic heart disease of [place] coronary artery without angina pectoris Status: Chronic Comment: Mild, nonobstructive CAD per [facility] 08/29/2016 @ [facility] per Dr. Cantrell (9) CHF (congestive heart failure), NYHA class I Status: Chronic (10) Cancer of upper lobe of left lung Status: Chronic Comment: Squamous cell carcinoma (11) Chronic obstructive pulmonary disease Status: Chronic (12) GERD (gastroesophageal reflux disease) Status: Chronic (13) Hyperlipidemia Status: Chronic (14) Hypothyroidism Status: Chronic (15) PVD (peripheral vascular disease) Status: Chronic (16) Psoriatic arthritis Status: Chronic (17) Secondary pulmonary arterial hypertension Status: Chronic Comment: RVSP 47mm hg per echo 08/28/2016 (unable to estimate per Echo 12/17/2016) (18) 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 Past Medical History - Allergies and Home Meds Allergies/Adverse Reactions: Allergies No Known Allergies Allergy (Verified 12/19/19 15:32) Primary Care Physician: Joseluis Foote III, MD [Primary Care Provider] - Surgical History: no surgical history Smoking Status: Former smoker - Family History Maternal Family History: Family History (Last Reviewed 10/11/19 @ 07:38 by VICKIE Olivo) Mother Heart disease Brother CVA (cerebral vascular accident) Father Cancer Grandmother Diabetes Family History: Reports: - - No COPD Paternal Family History: Family History (Last Reviewed 10/11/19 @ 07:38 by VICKIE Olivo) Mother Heart disease Brother CVA (cerebral vascular accident) Father Cancer Grandmother Diabetes Family History: Reports: - - No COPD Review of Systems General: Denies: Chills, Fever, Sweats Eyes: Denies: Visual changes - bilaterally, Diplopia ENT: Denies: Bilateral ear pain, Rhinorrhea, Sore throat Cardiovascular: Denies: Chest pain, Palpitations Respiratory: Reports: Dyspnea, Cough, Dyspnea on exertion. Denies: Sputum, Orthopnea Gastrointestinal: Denies: Abdominal pain, Nausea, Vomiting, Diarrhea, Melena, Hematochezia Genitourinary: Denies: Dysuria, Hematuria, Frequency Musculoskeletal: Denies: Neck pain, Back pain, Swelling, Extremity Pain Skin: Denies: Rash, Wounds Neurological: Denies: Headache, Weakness, Numbness Physical Exam Vital Signs/Narrative: Vital Signs Temp Pulse Resp BP Pulse Ox 12/19/19 15:33 97.6 F L 89 18 148/73 H 100 Inital Vital Signs reviewed: Yes General: Well nourished, Well developed, No Acute Distress Head: Normocephalic, Atraumatic Eyes: Perrl, EOMI ENT: Moist mucous membranes, No rhinorrhea Neck: Supple, Nontender, No lymphadenopathy Cardiovascular: Regular rate, Regular rhythm, - - Very faint heart sounds Respiratory: No distress, Chest nontender, Diminished - Extremely, diffusely, worse on the left. Negative for: Rales, Rhonchi, Wheezing Abdomen: Soft, Nontender, Nondistended, Normal bowel sounds Back: Nontender, Normal Inspection. Negative for: CVA tenderness Extremities: Nontender, No edema. Negative for: Calf Tenderness Skin: Normal color, No rash, No Trauma Neurological: Alert, Oriented x3, Cranial nerves II-XII grossly intact, Normal Strength, Normal Sensation Psychological: Normal affect, Normal Mood Diagnostic/Tx/Re-eval Impressions Chest X-Ray 12/19/19 16:14 IMPRESSION: 1. Interval removal of endotracheal tube and nasogastric tube. 2. Left subclavian single lead AICD which is unchanged. 3. Emphysema without pneumonia or atelectasis. Electronically Signed: Iker Amado MD at 16:30 EDT Tel , Service support , 12/19/19 16:14 Chest 1 View (Portable) [RAD] Stat Laboratory Results 12/19/19 12/19/19 12/19/19 16:55 16:55 16:55 WBC 9.8 RBC 2.32 L Hgb 7.7 L Hct 23.2 L MCV 100.0 H MCH 33.2 H MCHC 33.2 RDW Std Deviation 47.8 H RDW Coeff of Sydni 13.3 Plt Count 119 L MPV 9.4 Immature Gran % (Auto) 0.400 Neut % (Auto) 79.1 H Lymph % (Auto) 7.9 L [place] % (Auto) 9.9 Eos % (Auto) 2.5 Baso % (Auto) 0.2 Absolute Neuts (auto) 7.8 H Absolute Lymphs (auto) 0.78 L Nucleated RBC % 0 D-Dimer Quant (PE/DVT) 0.43 Sodium 137 Potassium 4.5 Chloride 102 Carbon Dioxide 30.0 Anion Gap 5 BUN 22 H Creatinine 1.65 H Estim Creat Clear Calc 37.27 Est GFR (MDRD) Af Amer 54 L Est GFR (MDRD) Non-Af 44 L BUN/Creatinine Ratio 13.3 Glucose 97 Calcium 8.9 Troponin I < 0.015 B-Natriuretic Peptide 12/19/19 16:55 WBC RBC Hgb Hct MCV MCH MCHC RDW Std Deviation RDW Coeff of Sydni Plt Count MPV Immature Gran % (Auto) Neut % (Auto) Lymph % (Auto) [place] % (Auto) Eos % (Auto) Baso % (Auto) Absolute Neuts (auto) Absolute Lymphs (auto) Nucleated RBC % D-Dimer Quant (PE/DVT) Sodium Potassium Chloride Carbon Dioxide Anion Gap BUN Creatinine Estim Creat Clear Calc Est GFR (MDRD) Af Amer Est GFR (MDRD) Non-Af BUN/Creatinine Ratio Glucose Calcium Troponin I B-Natriuretic Peptide 74.1 - Rhythm Strip Rhythm Strip: Sinus Rhythm Rate: 90 Ectopy: PVC(s) Treatment - Dyspnea: Albuterol, Atrovent, Steroid Repeat Evaluation: Improved With Ambulation: Asymptomatic - Medical Decision Making Patient is much better with exertion after nebulizer treatment, with essentially unremarkable work-up except for chronic anemia. This includes a negative d- dimer, essentially ruling out pulmonary embolus in this patient in whom COPD exacerbation is a more likely diagnosis in context. Today he his hemoglobin is at 7.7. I attempted to discuss with Dr. Murcia, Dr. Deluna was enterprise application administrator, he suggested performing a type and cross and Dr. Murcia will review it tomorrow and if the patient is deemed needing a transfusion, he can then get it as an outpatient. I discussed this with the patient, he states that he just had blood work drawn today and his oncologist already reviewed it and said that he was not needing a transfusion. Therefore I will avoid the type and cross, send him home on a short course of steroids and antibiotics prophylactically, and advised to follow-up or return if worse. Patient is comfortable with that plan. ED Disposition - Plan for ED Patient: Disposition: Home or Assisted Living Diagnosis: Anemia, COPD with acute exacerbation Instructions: ED Anemia Type Not Specified, ED COPD Flare Prescriptions: Prednisone [Deltasone] 40 mg PO DAILY #10 tab Transmission Status: Pending to [id number] Doxycycline Hyclate 1 cap PO BID #14 cap Transmission Status: Pending to [id number] Referrals: Joseluis Foote III, MD [Primary Care Provider] - 3-5 Days if not improving (and/or Dr. Murcia)
--- NOTE | 2019-12-19 16:15 | EKG12_ITS ---
Test Reason : DYSRHYTHMIA Blood Pressure : / mmHG Vent. Rate : 082 BPM Atrial Rate : 082 BPM P-R Int : 236 ms QRS Dur : 106 ms QT Int : 412 ms P-R-T Axes : 064 037 060 degrees QTc Int : 481 ms Sinus rhythm with 1st degree A-V block with occasional and consecutive Premature ventricular complexe s Low voltage QRS Nonspecific ST and T wave abnormality Abnormal ECG Confirmed by WILLIAMS FLORIAN ([id number]), rewrite editor LYSSA HUI ([id number]) on 12/22/2019 3:08:23 PM Referred By: DC Confirmed By:WILLIAMS FLORIAN
[2019-12-19 16:54] VITALS: PULSE 84; RESP 22
[2019-12-19] MEDS: Ipratropium/Albuterol Sulfate 3 ML AMPUL.NEB INHALATION (16:54)
[2019-12-19 17:25] LABS: Absolute Lymphocyte Count 0.78 X10^3/uL (0.83-4.51); Absolute Neutrophil Count 7.8 X10^3/uL (2.0-7.7); Basophil# 0.02 X10^3/uL; Basophil% 0.2 % (0-1); Eosinophil# 0.25 X10^3/uL; Eosinophils% 2.5 % (0-5); Hematocrit 23.2 % (40-54); Hemoglobin 7.7 g/dL (13.0-16.5); Lymphocyte # 0.78 X10^3/ul (4.0); Lymphocyte % 7.9 % (19-41); Mean Corp Hgb Conc 33.2 g/dL (32-36); Mean Corpuscular Hgb 33.2 pg (27.0-32.0); Mean Platelet Vol. 9.4 fl (6.2-12.0); Monocyte# 0.97 X10^3/uL; Monocyte% 9.9 % (0-10); NRBC Flagged by Analyzer 0 % (0-5); Neutrophil # 7.78 X10^3/uL (2.7-7.7); Neutrophil % 79.1 % (47-70); Platelet Count 119 K/mm3 (150-450); RBC Distribution Width CV 13.3 % (11.6-14.6); RBC Distribution Width SD 47.8 fl (35.1-43.9); Red Blood Count 2.32 M/mm3 (4.6-6.2); White Blood Count 9.8 K/mm3 (4.4-11.0)
[2019-12-19 17:28] LABS: Anion Gap 5 (5-15); BUN 22 mg/dL (7-18); BUN/Creat Ratio 13.3 RATIO (10-20); Calcium,Total 8.9 mg/dL (8.5-10.1); Chloride 102 mmol/L (98-107); Creatinine, Serum 1.65 mg/dL (0.70-1.30); EST Glomerular Filtration Rate 44 mL/min (>60); Est Glom Filt Rate - Afr Amer 54 mL/min (>60); Estimated Creatinine Clearance 37.27 ml/min; Glucose 97 mg/dL (74-106); Potassium 4.5 mmol/L (3.5-5.1); Sodium Level 137 mmol/L (136-145)
[2019-12-19 17:36] LABS: D-Dimer Quantitative (DVT/PE) 0.43 FEU/ug/m (0.27-0.49)
[2019-12-19 17:53] LABS: BNP,B-Type NATRIURETIC PEPTIDE 74.1 pg/mL (0-100)
[2019-12-19 18:02] VITALS: O2SAT 100
[2019-12-19 18:04] VITALS: BP 112/67; PULSE 82; RESP 20; O2SAT 96
[2019-12-19] MEDS: MethylPREDNISolone 125 MG/2 ML Vial IV (19:52)
[2019-12-19 20:13] VITALS: BP 135/64; PULSE 82; RESP 20; O2SAT 96
== END 2019-12-19 20:12 | disposition home or self-care (01) ==
PROVIDERS: Emergency Provider Emergency Medicine; PCP Family Medicine
DX: D64.9 Anemia, unspecified (principal); J44.1 Chronic obstructive pulmonary disease with (acute) exacerbation; E03.9 Hypothyroidism, unspecified; E78.5 Hyperlipidemia, unspecified; I25.10 Atherosclerotic heart disease of native coronary artery without angina pectoris; I27.21 Secondary pulmonary arterial hypertension; I50.9 Heart failure, unspecified; I73.9 Peripheral vascular disease, unspecified; K21.9 Gastro-esophageal reflux disease without esophagitis; Z46.59 Encounter for fitting and adjustment of other gastrointestinal appliance and device; Z46.82 Encounter for fitting and adjustment of non-vascular catheter; Z82.3 Family history of stroke; Z82.49 Family history of ischemic heart disease and other diseases of the circulatory system; Z85.118 Personal history of other malignant neoplasm of bronchus and lung; Z87.891 Personal history of nicotine dependence; Z95.810 Presence of automatic (implantable) cardiac defibrillator; E22.2 Syndrome of inappropriate secretion of antidiuretic hormone; L40.50 Arthropathic psoriasis, unspecified; Z92.21 Personal history of antineoplastic chemotherapy
CPT/HCPCS: 71045; 80048; 83880; 84484; 85025; 85379; 93005; 94640; 96374; 99284; A4216

== ENCOUNTER → 2019-12-21 07:48 | Outpatient (CLI) | payer MEDICARE, OTHER, SELFPAY ==
[2019-12-19 15:33] VITALS: BMI 26.1
[2019-12-21 08:16] VITALS: BP 125/51; PULSE 66; RESP 18; TEMP 36.1; O2SAT 100; BMI 24.5
[2019-12-21] MEDS: 0.9% NaCl Peripheral Flush Adult/Peds IV (08:22)
[2019-12-21 08:57] VITALS: BP 121/35; PULSE 63; RESP 18; TEMP 36.9; O2SAT 100
[2019-12-21 09:57] VITALS: BP 113/57; PULSE 63; RESP 18; TEMP 36.4
[2019-12-21] MEDS: Furosemide 20 MG/2 ML VIAL IV (11:11)
[2019-12-21 11:24] VITALS: BP 126/58; PULSE 68; RESP 18; TEMP 36.6
== END ==
PROVIDERS: PCP Family Medicine; Referring Provider Internal Medicine Hematology & Oncology; Visit Provider Internal Medicine Hematology & Oncology
DX: Z51.89 Encounter for other specified aftercare (principal); D64.9 Anemia, unspecified
CPT/HCPCS: 36415; 36430; 86644; 86850; 86900; 86901; 86920; 86922; J7040; P9040; A4216; J1940

== ENCOUNTER 2019-12-26 16:13 | Inpatient (IN) | payer MEDICARE, OTHER, SELFPAY ==
[2019-12-21 08:16] VITALS: BMI 24.5
[2019-12-26] VITALS (13 sets, daily range): BP systolic 123–146; BP diastolic 64–84; PULSE 68–92; RESP 14–24; TEMP 36.2–36.7; O2SAT 97–100; BMI 25.4; BMI 24.9
--- NOTE | 2019-12-26 17:00 | CT_ITS ---
STUDY: CT ABDOMEN AND PELVIS WITHOUT CONTRAST REASON FOR EXAM: Male, 69 years old. ABDOMINAL PAIN, HX SQUAMOUS CELL CARCINOMA, CHF, CAD, GERD RADIATION DOSAGE (If Supplied By Facility): CTDIvol = ( 7.86 ) mGy, DLP = ( 426.02 ) mGycm TECHNIQUE: Transaxial images were obtained from the dome of the diaphragm to the symphysis pubis without oral contrast, and without intravenous contrast. Sagittal and coronal images were reconstructed. Individualized dose optimization techniques were used for this CT. COMPARISON: CT abdomen and pelvis without contrast May 13, 2018; PET/CT July 18, 2019 FINDINGS: Moderate elevation of the right diaphragm is slightly more prominent than in 2018. There is subsegmental atelectasis in the adjacent inferior right lung base, as well as stable obliquely oriented subsegmental atelectasis or scarring along the inferior left pleural fissure. Subsegmental airspace disease in the medial left costophrenic sulcus on prior CT has cleared. Lead of a cardiac pacemaker/AICD is again noted in the right ventricle of the normal size heart . There is persistent atherosclerotic calcific plaquing of the visualized ascending and distal descending thoracic aorta Normal liver. The portal vein diameter is 13 mm. Normal gallbladder and extrahepatic biliary system. Normal spleen. Normal pancreas. Normal bilateral adrenal glands. Normal right kidney. Normal left kidney. No hydronephrosis. Normal visualized stomach. Normal small intestine. There are multiple sigmoid colonic diverticula consistent with diverticulosis. At least 2 small appendicoliths are seen at the ostium of the 12.5 mm fluid distended appendix. There is mild periappendiceal stranding consistent with acute appendicitis. There is diffuse atherosclerotic calcification of the abdominal aorta and iliofemoral arteries, without a demonstrated aneurysm. Normal inferior vena cava. A cluster of microcalcifications are noted within a benign appearing, moderately fatty replaced lymph node interposed between the portal vein and inferior vena cava. Normal urinary bladder. Normal visualized prostate gland. Normal abdominal wall. There are stable diffuse degenerative changes of the visualized thoracolumbar spine. CT/Abdomen/Pelvis without Cont IMPRESSION: 1. Findings consistent with acute appendicitis, as described. No demonstrated abscess or free gas. 2. Chronic sigmoid diverticulosis again noted. No sign of bowel obstruction. 3. Moderate elevation of the right diaphragm again noted, with minor subsegmental atelectasis in the adjacent right lung base. Stable left base focal atelectasis or scarring. 4. Atherosclerotic vascular calcifications again noted. No demonstrated aortic aneurysm. N.B. : The above information has been verbally conveyed by Dewayne Perez MD to Sameera Tan MD, on 12/26/2019 18:25:41 (ET). Electronically Signed: Dewayne Perez MD at 18:27 EDT , Service support ,
--- NOTE | 2019-12-26 17:01 | ED.VIS.GEN ---
History of Present Illness Chief Complaint: Abd Pain Informant: Patient Onset: Today Current Severity: - - Resolved Maximum Severity: Moderate Narrative: Patient presents with rather severe lower abdominal pain today that is currently resolved. Patient states he called Dr. Ricci's office and they encouraged him to come in to be checked to make sure he did not have appendicitis. He states while getting ready come to the hospital his pain completely subsided. He does report having similar episode a week or 2 ago. He denies fever or chills. He is currently on immunomodulators for treatment of lung cancer. He denies any prior abdominal surgeries. - Past Medical History (1) Seizure Status: Chronic (2) Anemia Status: Chronic (3) Atherosclerotic heart disease of [place] coronary artery without angina pectoris Status: Chronic Comment: Mild, nonobstructive CAD per [facility] 08/29/2016 @ [facility] per Dr. Cantrell (4) CHF (congestive heart failure), NYHA class I Status: Chronic (5) Cancer of upper lobe of left lung Status: Chronic Comment: Squamous cell carcinoma (6) Chronic obstructive pulmonary disease Status: Chronic (7) Chronic systolic (congestive) heart failure Status: Chronic (8) Coronary artery disease Status: Chronic (9) GERD (gastroesophageal reflux disease) Status: Chronic (10) Hyperlipidemia Status: Chronic (11) Hypothyroidism Status: Chronic (12) Implantable cardioverter-defibrillator (ICD) in situ Status: Chronic Comment: [employer] Dynogen EL ICD, model D150; Seriao # [id number] (13) Nonischemic cardiomyopathy Status: Chronic Comment: EF 15-20% per heart cath 08/29/2016; 20-35% per echo 12/17/2016 (14) PVD (peripheral vascular disease) Status: Chronic (15) 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 Murcia Prior records reviewed: Yes Surgical History: no surgical history Smoking Status: Former smoker - Family History Maternal Family History: Family History (Last Reviewed 12/26/19 @ 19:[address] Giancarlo Ralph, DO) Mother Heart disease Brother CVA (cerebral vascular accident) Father Cancer Grandmother Diabetes Family History: Reports: - - No COPD Paternal Family History: Family History (Last Reviewed 12/26/19 @ 19:[address] Giancarlo Ralph DO) Mother Heart disease Brother CVA (cerebral vascular accident) Father Cancer Grandmother Diabetes Family History: Reports: - - No COPD Review of Systems General: Denies: Chills, Fever Eyes: Denies: Visual changes - bilaterally ENT: Denies: Bilateral ear pain Cardiovascular: Denies: Chest pain Respiratory: Denies: Dyspnea, Cough Gastrointestinal: Reports: Abdominal pain. Denies: Nausea, Vomiting, Diarrhea Genitourinary: Denies: Dysuria Musculoskeletal: Denies: Swelling, Extremity Pain Skin: Denies: Rash Neurological: Denies: Headache Hematologic: Denies: Easy bruising Physical Exam Vital Signs/Narrative: Vital Signs Temp Pulse Resp BP 12/26/19 16:16 97.1 F L 68 22 H 145/82 H 12/26/19 16:14 97.1 F L 68 24 H 145/82 H Inital Vital Signs reviewed: Yes General: Well nourished, Well developed Head: Normocephalic ENT: Moist mucous membranes Neck: Supple Cardiovascular: Regular rate, Regular rhythm Respiratory: No distress, CTA bilaterally Abdomen: Soft, Nontender, Normal bowel sounds Extremities: Nontender Skin: Normal color, No rash Neurological: Alert, Oriented x3 Psychological: Normal affect Diagnostic/Tx/Re-eval Impressions Abdomen/Pelvis CT 12/26/19 17:00 IMPRESSION: 1. Findings consistent with acute appendicitis, as described. No demonstrated abscess or free gas. 2. Chronic sigmoid diverticulosis again noted. No sign of bowel obstruction. 3. Moderate elevation of the right diaphragm again noted, with minor subsegmental atelectasis in the adjacent right lung base. Stable left base focal atelectasis or scarring. 4. Atherosclerotic vascular calcifications again noted. No demonstrated aortic aneurysm. N.B. : The above information has been verbally conveyed by Dewayne Perez MD to Sameera Tan MD, on 12/26/2019 18:25:41 (ET). Electronically Signed: Dewayne Perez MD at 18:27 EDT , Service support , ADDENDUM: 12/26/19 4735 IMPRESSION: 1. Findings consistent with acute appendicitis, as described. No demonstrated abscess or free gas. 2. Chronic sigmoid diverticulosis again noted. No sign of bowel obstruction. 3. Moderate elevation of the right diaphragm again noted, with minor subsegmental atelectasis in the adjacent right lung base. Stable left base focal atelectasis or scarring. 4. Atherosclerotic vascular calcifications again noted. No demonstrated aortic aneurysm. N.B. : The above information has been verbally conveyed by Dewayne Perez MD to Sameera Tan MD, on 12/26/2019 18:25:41 (ET). Electronically Signed: Dewayne Perez MD at 18:27 EDT , Service support , 12/26/19 17:00 Abdomen/Pelvis without Cont [CT] Stat Laboratory Results 12/26/19 12/26/19 12/26/19 18:00 18:53 18:53 WBC 16.2 H RBC 3.52 L Hgb 11.3 L Hct 34.0 L MCV 96.6 H MCH 32.1 H MCHC 33.2 RDW Std Deviation 53.7 H RDW Coeff of Sydni 15.4 H Plt Count 151 MPV 9.9 Immature Gran % (Auto) 2.000 H Neut % (Auto) 81.3 H Lymph % (Auto) 6.9 L [place] % (Auto) 8.0 Eos % (Auto) 1.5 Baso % (Auto) 0.3 Absolute Neuts (auto) 13.2 H Absolute Lymphs (auto) 1.12 Nucleated RBC % 0 Sodium 136 Potassium 4.4 Chloride 100 Carbon Dioxide 31.0 Anion Gap 5 BUN 30 H Creatinine 1.47 H Estim Creat Clear Calc 41.26 Est GFR (MDRD) Af Amer 61 Est GFR (MDRD) Non-Af 51 L BUN/Creatinine Ratio 20.4 H Glucose 111 H Calcium 9.3 Urine Color Yellow Urine Clarity Clear Urine pH 5.0 Ur Specific [place] 1.020 Urine Protein Negative Urine Glucose (UA) Normal Urine Ketones Negative Urine Occult Blood Negative Urine Nitrite Negative Urine Bilirubin Negative Urine Urobilinogen Normal Ur Leukocyte Esterase Negative Urine RBC 0 SEEN Urine WBC 0 SEEN Ur Squamous Epith Cells 0 SEEN Urine Bacteria 0 SEEN Urine Mucus 0 SEEN - Medical Decision Making Labs obtained earlier in the day revealed a white count of 10.3. Patient had a urinalysis obtained as well as a CT flank to rule out kidney stone. CT returned with evidence of acute appendicitis. I spoke with Dr. Franco who presented to the emergency room to see the patient. Patient is given Zosyn and admitted to the hospital for appendectomy. ED Disposition - Plan for ED Patient: Disposition: Acute Care Hospital [facility] Diagnosis: Appendicitis
[2019-12-26 18:13] LABS: Bacteria 0 SEEN /hpf (None Seen); Mucous, Urine 0 SEEN /hpf (<or=2+); Red Blood Cells-Urine 0 SEEN /hpf (0-5); Squamous Epithelial Cells - UA 0 SEEN /hpf (0-5); White Blood Cells 0 SEEN /hpf (0-5)
[2019-12-26 18:15] LABS: Color, Urine Yellow (Yellow); Glucose, Dipstick Normal (Normal); Ketone-Dipstick Negative (Negative); Leukocyte Esterase-Dipstick Negative /ul (Negative); Nitrite-Dipstick Negative (Negative); Occult Blood-Urine Negative /ul (Negative); Protein-Dipstick Negative (Negative); Urine Bilirubin Dipstick Negative (Negative); Urine Clarity Clear (Clear); Urine Urobilinogen Normal (Normal)
--- NOTE | 2019-12-26 19:20 | PCM.CONS.GEN ---
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 (3) Lung cancer Status: Chronic Qualifiers: Laterality: unspecified laterality Lung location: unspecified part of lung Qualified Code(s): C34.90 - Malignant neoplasm of unspecified part of unspecified bronchus or lung (4) Anemia Status: Chronic Qualifiers: Anemia type: unspecified type Qualified Code(s): D64.9 - Anemia, unspecified (5) Debility Status: Chronic (6) Epistaxis Status: Resolved (7) Seizure Status: Chronic (8) Hyponatremia Status: Chronic (9) Chronic systolic (congestive) heart failure Status: Chronic (10) Coronary artery disease Status: Chronic (11) Chronic obstructive pulmonary disease Status: Chronic Qualifiers: COPD type: unspecified COPD Qualified Code(s): J44.9 - Chronic obstructive pulmonary disease, unspecified (12) Hypothyroidism Status: Chronic Qualifiers: Hypothyroidism type: unspecified Qualified Code(s): E03.9 - Hypothyroidism, unspecified (13) Allergic rhinitis Status: Chronic Qualifiers: Allergic rhinitis seasonality: unspecified (14) GERD (gastroesophageal reflux disease) Status: Chronic (15) Hypokalemia Status: Chronic (16) Skin tear of right forearm without complication Status: Acute (17) Lesion of pelvic bone Status: Acute (18) Cancer of upper lobe of left lung Status: Chronic Comment: Squamous cell carcinoma (19) Pneumothorax after biopsy Status: Chronic (20) Shortness of breath Status: Chronic (21) Implantable cardioverter-defibrillator (ICD) in situ Status: Chronic Comment: [employer] Dynogen EL ICD, model D150; Seriao # [id number] (22) Abrasion of skin Status: Acute (23) Secondary pulmonary arterial hypertension Status: Chronic Comment: RVSP 47mm hg per echo 08/28/2016 (unable to estimate per Echo 12/17/2016) (24) Nonischemic cardiomyopathy Status: Chronic Comment: EF 15-20% per heart cath 08/29/2016; 20-35% per echo 12/17/2016 (25) Severe left ventricular systolic dysfunction Status: Chronic Comment: EF 15-20% per heart cath 08/29/2016; 20-35% per echo 12/17/2016 (26) History of left heart catheterization Status: Chronic Comment: Mild, nonobstructive CAD per [facility] 08/29/2016 @ [facility] per Dr. Cantrell (27) Atherosclerotic heart disease of [place] coronary artery without angina pectoris Status: Chronic Comment: Mild, nonobstructive CAD per [facility] 08/29/2016 @ [facility] per Dr. Cantrell (28) Hx of colonoscopy Status: Resolved (29) Diverticula of colon Status: Chronic (30) PVD (peripheral vascular disease) Status: Chronic (31) Long-term use of high-risk medication Status: Chronic (32) Stage 3 severe COPD by GOLD classification Status: Chronic Comment: FEV1 31 (33) PND (paroxysmal nocturnal dyspnea) Status: Chronic (34) Hyperlipidemia Status: Chronic (35) SOB (shortness of breath) Status: Chronic (36) Acute respiratory failure with hypoxia Status: Resolved (37) Acute on chronic respiratory failure with hypoxia Status: Resolved (38) COPD with acute exacerbation Status: Resolved (39) Psoriatic arthritis Status: Chronic (40) Acne cystica Status: Chronic (41) CHF (congestive heart failure), NYHA class I Status: Chronic Reason for Consult Date of Consultation: 12/26/19 Reason for Consultation: consult requested for post operative medical mgmt History of Present Illness: The patient is a 69 year old M presents with a 1 day history of abdominal pain. Patient Bravo pain began in the right lower quadrant. Called his oncologist, Dr. Murcia, who advised patient come to the emergency room as they are concerned about appendicitis. Patient had a CAT scan that showed acute appendicitis. Dr. Franco, of general surgery was contacted and plan is to take the patient to surgery tonight. The hospital service is consulted for postoperative medical management. Patient has not gone to surgery yet but he states that his abdominal pain is completely resolved and feels fine. Does state that he has felt slightly short of breath and was found to be anemic with a hemoglobin of 7.7. [] Past Medical History Past Medical History (Chronic Problems): Chronic Problems (Last Reviewed 12/26/19 @ 19:[address] 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) Lung cancer (Chronic) Anemia (Chronic) Debility (Chronic) Seizure (Chronic) Hyponatremia (Chronic) Chronic systolic (congestive) heart failure (Chronic) Coronary artery disease (Chronic) Chronic obstructive pulmonary disease (Chronic) Hypothyroidism (Chronic) Allergic rhinitis (Chronic) GERD (gastroesophageal reflux disease) (Chronic) Hypokalemia (Chronic) Cancer of upper lobe of left lung (Chronic) Squamous cell carcinoma Pneumothorax after biopsy (Chronic) Shortness of breath (Chronic) Implantable cardioverter-defibrillator (ICD) in situ (Chronic 12/27/16) [employer] Dynogen EL ICD, model D150; Seriao # [id number] Secondary pulmonary arterial hypertension (Chronic) RVSP 47mm hg per echo 08/28/2016 (unable to estimate per Echo 12/17/2016) Nonischemic cardiomyopathy (Chronic) EF 15-20% per heart cath 08/29/2016; 20-35% per echo 12/17/2016 Severe left ventricular systolic dysfunction (Chronic) EF 15-20% per heart cath 08/29/2016; 20-35% per echo 12/17/2016 History of left heart catheterization (Chronic) Mild, nonobstructive CAD per [facility] 08/29/2016 @ [facility] per Dr. Cantrell Atherosclerotic heart disease of [place] coronary artery without angina pectoris (Chronic) Mild, nonobstructive CAD per [facility] 08/29/2016 @ [facility] per Dr. Cantrell Diverticula of colon (Chronic) PVD (peripheral vascular disease) (Chronic) Long-term use of high-risk medication (Chronic) Stage 3 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) FEV1 31 PND (paroxysmal nocturnal dyspnea) (Chronic) Hyperlipidemia (Chronic) SOB (shortness of breath) (Chronic) Psoriatic arthritis (Chronic) Acne cystica (Chronic) CHF (congestive heart failure), NYHA class I (Chronic) Medical History: Medical History (Last Reviewed 12/26/19 @ 19:[address] Giancarlo Ralph, DO) Lung cancer (Chronic) C34.90 Anemia (Chronic) D64.9 Debility (Chronic) R53.81 Chronic systolic (congestive) heart failure (Chronic) I50.22 Coronary artery disease (Chronic) I25.10 Chronic obstructive pulmonary disease (Chronic) J44.9 Hypothyroidism (Chronic) E03.9 Allergic rhinitis (Chronic) J30.9 GERD (gastroesophageal reflux disease) (Chronic) K21.9 Hypokalemia (Chronic) E87.6 Lesion of pelvic bone (Acute) M89.9 Cancer of upper lobe of left lung (Chronic) C34.12 Squamous cell carcinoma Pneumothorax after biopsy (Chronic) J95.811 Shortness of breath (Chronic) R06.02 Secondary pulmonary arterial hypertension (Chronic) I27.21 RVSP 47mm hg per echo 08/28/2016 (unable to estimate per Echo 12/17/2016) Nonischemic cardiomyopathy (Chronic) I42.8 EF 15-20% per heart cath 08/29/2016; 20-35% per echo 12/17/2016 Severe left ventricular systolic dysfunction (Chronic) I51.9 EF 15-20% per heart cath 08/29/2016; 20-35% per echo 12/17/2016 Atherosclerotic heart disease of [place] coronary artery without angina pectoris (Chronic) I25.10 Mild, nonobstructive CAD per [facility] 08/29/2016 @ [facility] per Dr. Cantrell PVD (peripheral vascular disease) (Chronic) I73.9 Stage 3 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) J44.9 FEV1 31 PND (paroxysmal nocturnal dyspnea) (Chronic) R06.00 Hyperlipidemia (Chronic) E78.5 SOB (shortness of breath) (Acute) R06.02 Acute on chronic respiratory failure with hypoxia (Resolved) J96.21 Psoriatic arthritis (Chronic) L40.50 CHF (congestive heart failure), NYHA class I (Chronic) I50.9 Anemia D64.9 Arthritis M19.90 Heart disease I51.9 Lung disease J98.4 SOB (shortness of breath) R06.02 CAP (community acquired pneumonia) (Resolved) J18.9 Chronic respiratory failure with hypoxia and hypercapnia (Resolved) J96.11, J96.12 Left ventricular thrombus (Resolved) I51.3 MCC current use of anticoagulant (Resolved) Z79.01 Allergies No Known Allergies Allergy (Verified 12/26/19 16:38) Home Medications: Ambulatory Orders Medication Instructions Recorded Hydroxychloroquine [Plaquenil] 200 mg PO BIDCM 08/27/16 Multivitamin [Multiple Vitamins] 1 ea PO DAILY 08/27/16 atezolizumab 1,200 mg/20 mL (60 60 mg IV UD ml 08/27/18 mg/mL) intravenous solution Cholecalciferol (VIT D3) [Vitamin 1,000 unit PO BID 12/01/18 D3] Omeprazole 40 mg PO DAILY 12/01/18 Albuterol Inhaler [Ventolin Hfa] 2 puff INHALATION Q4H PRN PRN 12/20/18 inhaler magnesium oxide 400 mg (241.3 mg 400 mg PO BIDCM #180 tab 03/14/19 magnesium) tablet aspirin 81 mg tablet,delayed 81 mg PO QODAY tab 03/28/19 release atorvastatin 40 mg tablet 40 mg PO QHS #90 tab 08/22/19 carvedilol 6.25 mg tablet 6.25 mg PO BID #180 tab 09/22/19 losartan 25 mg tablet 25 mg PO DAILY #90 tab 10/03/19 levothyroxine 125 mcg tablet 125 mcg PO DAILY 10/11/19 furosemide 40 mg tablet 40 mg PO QAM #180 tab 11/08/19 potassium chloride 20 mEq 20 meq PO BID tab 11/08/19 tablet,extended release(part/cryst) Cetirizine HCl [Zyrtec] 10 mg PO QHS 12/26/19 Fluticasone/Salmeterol [Advair HFA] 2 puff INHALATION BID 12/26/19 Umeclidinium [place] Inhaler 1 inh INHALATION DAILY 12/26/19 [Incruse Ellipta] Surgical History: Surgical History (Last Reviewed 12/26/19 @ 19:[address] Giancarlo Ralph DO) Implantable cardioverter-defibrillator (ICD) in situ (Chronic) Onset Date: 12/27/16 Z95.810 [employer] Dynogen EL ICD, model D150; Seriao # [id number] History of left heart catheterization (Chronic) Z98.890 Mild, nonobstructive CAD per [facility] 08/29/2016 @ [facility] per Dr. Cantrell Surgical History: no surgical history Psychiatric History: No pertinent psych hx Smoking Status: Former smoker - *Family History Maternal Family History: Family History (Last Reviewed 12/26/19 @ 19:[address] Giancarlo Ralph DO) Mother Heart disease Brother CVA (cerebral vascular accident) Father Cancer Grandmother Diabetes History Items: - - No COPD Paternal Family History: Family History (Last Reviewed 12/26/19 @ 19:[address] Giancarlo Ralph DO) Mother Heart disease Brother CVA (cerebral vascular accident) Father Cancer Grandmother Diabetes History Items: - - No COPD Review of Systems Constitutional: Denies: Anorexia, Chills, Fever, Night Sweats Eyes: Denies: Blurred vision, Conjunctivae Inflammation HEENT: Denies: Head Aches, Sinus Congestion, Sinus Drainage Cardiovascular: Denies: Chest Pain, Palpitations Respiratory: Reports: Shortness of Breath. Denies: Cough Gastrointestinal: Reports: Abdominal Pain. Denies: Nausea, Vomiting - This Comment: All review of systems were negative except as mentioned above in the history of present illness and the other review of systems. Patient Problems: Active and Suspected Problems (Last Reviewed 12/26/19 @ 19:[address] Giancarlo Ralph, DO) Appendicitis, acute (Acute) - Physical Exam Vitals/I&O's: Vital Signs Temp Pulse Resp BP Pulse Ox 36.7 C 88 17 146/83 H 100 12/26/19 18:58 12/26/19 18:58 12/26/19 18:58 12/26/19 18:58 12/26/19 18:58 Oxygen Flow Rate (L/min) 2 Oxygen Delivery Method Nasal Cannula Weight: 69.3 kg Body Mass Index (BMI) 25.4 Finger Stick Blood Glucose 126 General: Alert, Cooperative, No apparent distress, - - Presented to bed. No respiratory distress. No conversational dyspnea. HEENT: Atraumatic, Normocephalic, - - No scleral icterus Lungs: Clear to auscultation, Diminished Cardiovascular: Regular rate, Regular Rhythm, Normal S1, Normal S2 Abdomen: Bowel Sounds Present, Soft, Non Tender, Non-Distended Extremities: No edema, No Calf Tenderness Skin: No rashes, No breakdown Musculoskeletal: No Tenderness to Palpation of Joints or Extremities, No Muscle Wasting Psych/Mental Status: Normal Affect, Appropriate Laboratory Results 12/26/19 18:00: Urine Color Yellow, Urine Clarity Clear, Urine pH 5.0, Ur Specific [place] 1.020, Urine Protein Negative, Urine Glucose (UA) Normal, Urine Ketones Negative, Urine Occult Blood Negative, Urine Nitrite Negative, Urine Bilirubin Negative, Urine Urobilinogen Normal, Ur Leukocyte Esterase Negative, Urine RBC 0 SEEN, Urine WBC 0 SEEN, Ur Squamous Epith Cells 0 SEEN, Urine Bacteria 0 SEEN, Urine Mucus 0 SEEN Current Medications Piperacillin Sod/Tazobactam (Sod 3.375 gm/ Sodium Chloride) 50 mls @ 100 mls/hr IV X1 ONE Stop: 12/26/19 19:42 Assessment/Plan All Active Problems (Last Reviewed 12/26/19 @ 19:[address] Giancarlo Ralph, DO) Appendicitis, acute (Acute) Epistaxis (Resolved) Skin tear of right forearm without complication (Acute) Lesion of pelvic bone (Acute) Abrasion of skin (Acute) Hx of colonoscopy (Resolved) Acute respiratory failure with hypoxia (Resolved) Acute on chronic respiratory failure with hypoxia (Resolved) COPD with acute exacerbation (Resolved) CAP (community acquired pneumonia) (Resolved) Chronic respiratory failure with hypoxia and hypercapnia (Resolved) LV (left ventricular) mural thrombus (Resolved) Left ventricular thrombus (Resolved) MCC current use of anticoagulant (Resolved) 1. Acute appendicitis: Currently patient is feeling fine but the CAT scan had noted acute appendicitis but no perforation. Patient being taken emergently to surgery today. Patient is certainly at high risk given his medical comorbidities but appears to be well compensated despite those. 2. Anemia: Hemoglobin is 7.7. Would recommend to transfuse the patient to a goal of hemoglobin of around 8 given his history of heart disease (coronary artery disease and heart failure with preserved ejection fraction). Transfusion should not hold up his surgery however. 3. Stage IV COPD by GOLD classification: Compensated this time. Patient has noted some increased shortness of breath but no audible wheezing. Some shortness of breath may be related with more of his anemia at this time. Certainly complicates the patient's overall postoperative recovery. Discussed with general surgery, plan is for the patient to go to the ICU postoperatively given his medical complexity. Resume home medications as able. 4. Heart failure with preserved ejection fraction: EF was 65% from August 2018. Compensated this time without evidence of volume overload. When able, resume carvedilol, losartan and furosemide. 5. Non-small cell lung cancer: Follows with Dr. Murcia. We will request records from Dr. Murcia's office. 6. Hypothyroidism, hyperlipidemia, psoriatic arthritis: Overall complicates medical care but stable at this time. Of note, patient is on hydroxychloroquine as outpatient. May not be able to obtain that while he is in the hospital but if okayed with surgery could have some bring that into resume that. Otherwise patient can resume that at home. 7.VTE prophylaxis: Patient would be high risk. Recommend least SCDs. Advanced care planning: Discussed with the patient. Patient wishes to be full CODE STATUS. Thank you for the consult. The hospital service will follow along during this patient's hospitalization. Inpatient E&M: [id number] Init Hosp L2
[2019-12-26 19:37] LABS: Absolute Lymphocyte Count 1.12 X10^3/uL (0.83-4.51); Absolute Neutrophil Count 13.2 X10^3/uL (2.0-7.7); Basophil# 0.05 X10^3/uL; Basophil% 0.3 % (0-1); Eosinophil# 0.24 X10^3/uL; Eosinophils% 1.5 % (0-5); Hemoglobin 11.3 g/dL (13.0-16.5); Lymphocyte # 1.12 X10^3/ul (4.0); Lymphocyte % 6.9 % (19-41); Mean Corp Hgb Conc 33.2 g/dL (32-36); Mean Corpuscular Hgb 32.1 pg (27.0-32.0); Mean Corpuscular Volume 96.6 fL (80-94); Mean Platelet Vol. 9.9 fl (6.2-12.0); NRBC Flagged by Analyzer 0 % (0-5); Neutrophil # 13.17 X10^3/uL (2.7-7.7); Neutrophil % 81.3 % (47-70); Platelet Count 151 K/mm3 (150-450); RBC Distribution Width CV 15.4 % (11.6-14.6); RBC Distribution Width SD 53.7 fl (35.1-43.9); Red Blood Count 3.52 M/mm3 (4.6-6.2); White Blood Count 16.2 K/mm3 (4.4-11.0)
--- NOTE | 2019-12-26 19:45 | APP_PTH ---
PATIENT: JIGNESH LOPEZ LOC: [facility] U#:[id number] AGE/SX: 69/M ROOM: AK313 RE12/27/[address]: Dr. Long Franco MD : 1950 BED: 1 DIS: 12/29/2019 SPEC #: [id number] RECD: 12/27/19 07:57 STATUS: JOSÉ LEE #: [id number] KATHE: 12/26/19 19:[address]: Long Franco DEPT: SURGICAL PATHOLOGY RECD BY: Rukhsana Hernandez ENTERED: 12/27/19 09:04 SP TYPE: APPENDIX OTHR DR: MD Dr. Giancarlo Manuel DO Dr. Frank A Cebul III, MD Tissues: Appendix, NOS Procedures: Surgery Specimen Level III HEADER OPERATION: Laparoscopic appendectomy PRE-OP DIAGNOSIS: Appendicitis TISSUE SUBMITTED: Appendix MICROSCOPIC DIAGNOSIS Appendix, appendectomy: Acute appendicitis. Acute serositis. AM:beni 12/28/19 MICROSCOPIC DESCRIPTION Slides are reviewed. GROSS DESCRIPTION Received is one container labeled with the patient's name and designated appendix. The specimen consists of an appendix measuring 6 cm in length and up to 0.8 cm in diameter. The attached periappendiceal adipose tissue measures up to 1.5 cm in width. The serosa is congested. No obvious perforation is identified. The lumen does not contain any fecalith. [employer] sections are submitted in one cassette. / SJ:beni 12/27/19 TC:2 CPT: 85966
[2019-12-26 19:54] LABS: Anion Gap 5 (5-15); BUN 30 mg/dL (7-18); BUN/Creat Ratio 20.4 RATIO (10-20); Calcium,Total 9.3 mg/dL (8.5-10.1); Chloride 100 mmol/L (98-107); Creatinine, Serum 1.47 mg/dL (0.70-1.30); EST Glomerular Filtration Rate 51 mL/min (>60); Est Glom Filt Rate - Afr Amer 61 mL/min (>60); Estimated Creatinine Clearance 41.26 ml/min; Glucose 111 mg/dL (74-106); Potassium 4.4 mmol/L (3.5-5.1); Sodium Level 136 mmol/L (136-145)
[2019-12-26] MEDS: Bupiv/Epi 0.25% 30 ML Vial (20:18)
--- NOTE | 2019-12-26 20:43 | PCM.HP.STD ---
Problem List (1) Appendicitis, acute Status: Acute Qualifiers: Acute appendicitis type: unspecified acute appendicitis type Qualified Code(s): K35.80 - Unspecified acute appendicitis History of Present Illness Date of Admission: 12/26/19 The patient is a 69 year old M with a multitude of comorbidities who has said that he had some abdominal pain last week and went away. He said he had abdominal pain this morning and his PCP ordered a CT scan which showed acute appendicitis. The patient currently reports decrease in pain. He has no nausea or vomiting or fevers or chills. Past Medical History Past Medical History (Chronic Problems): Chronic Problems (Last Reviewed 12/26/19 @ 19:[address] 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) Lung cancer (Chronic) Anemia (Chronic) Debility (Chronic) Seizure (Chronic) Hyponatremia (Chronic) Chronic systolic (congestive) heart failure (Chronic) Coronary artery disease (Chronic) Chronic obstructive pulmonary disease (Chronic) Hypothyroidism (Chronic) Allergic rhinitis (Chronic) GERD (gastroesophageal reflux disease) (Chronic) Hypokalemia (Chronic) Cancer of upper lobe of left lung (Chronic) Squamous cell carcinoma Pneumothorax after biopsy (Chronic) Shortness of breath (Chronic) Implantable cardioverter-defibrillator (ICD) in situ (Chronic 12/27/16) [employer] Dynogen EL ICD, model D150; Seriao # [id number] Secondary pulmonary arterial hypertension (Chronic) RVSP 47mm hg per echo 08/28/2016 (unable to estimate per Echo 12/17/2016) Nonischemic cardiomyopathy (Chronic) EF 15-20% per heart cath 08/29/2016; 20-35% per echo 12/17/2016 Severe left ventricular systolic dysfunction (Chronic) EF 15-20% per heart cath 08/29/2016; 20-35% per echo 12/17/2016 History of left heart catheterization (Chronic) Mild, nonobstructive CAD per [facility] 08/29/2016 @ [facility] per Dr. Cantrell Atherosclerotic heart disease of [place] coronary artery without angina pectoris (Chronic) Mild, nonobstructive CAD per [facility] 08/29/2016 @ [facility] per Dr. Cantrell Diverticula of colon (Chronic) PVD (peripheral vascular disease) (Chronic) Long-term use of high-risk medication (Chronic) Stage 3 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) FEV1 31 PND (paroxysmal nocturnal dyspnea) (Chronic) Hyperlipidemia (Chronic) SOB (shortness of breath) (Chronic) Psoriatic arthritis (Chronic) Acne cystica (Chronic) CHF (congestive heart failure), NYHA class I (Chronic) Medical History: Medical History (Last Reviewed 12/26/19 @ 19:[address] Giancarlo Ralph, DO) Lung cancer (Chronic) C34.90 Anemia (Chronic) D64.9 Debility (Chronic) R53.81 Chronic systolic (congestive) heart failure (Chronic) I50.22 Coronary artery disease (Chronic) I25.10 Chronic obstructive pulmonary disease (Chronic) J44.9 Hypothyroidism (Chronic) E03.9 Allergic rhinitis (Chronic) J30.9 GERD (gastroesophageal reflux disease) (Chronic) K21.9 Hypokalemia (Chronic) E87.6 Lesion of pelvic bone (Acute) M89.9 Cancer of upper lobe of left lung (Chronic) C34.12 Squamous cell carcinoma Pneumothorax after biopsy (Chronic) J95.811 Shortness of breath (Chronic) R06.02 Secondary pulmonary arterial hypertension (Chronic) I27.21 RVSP 47mm hg per echo 08/28/2016 (unable to estimate per Echo 12/17/2016) Nonischemic cardiomyopathy (Chronic) I42.8 EF 15-20% per heart cath 08/29/2016; 20-35% per echo 12/17/2016 Severe left ventricular systolic dysfunction (Chronic) I51.9 EF 15-20% per heart cath 08/29/2016; 20-35% per echo 12/17/2016 Atherosclerotic heart disease of [place] coronary artery without angina pectoris (Chronic) I25.10 Mild, nonobstructive CAD per [facility] 08/29/2016 @ [facility] per Dr. Cantrell PVD (peripheral vascular disease) (Chronic) I73.9 Stage 3 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) J44.9 FEV1 31 PND (paroxysmal nocturnal dyspnea) (Chronic) R06.00 Hyperlipidemia (Chronic) E78.5 SOB (shortness of breath) (Chronic) R06.02 Acute on chronic respiratory failure with hypoxia (Resolved) J96.21 Psoriatic arthritis (Chronic) L40.50 CHF (congestive heart failure), NYHA class I (Chronic) I50.9 Anemia D64.9 Arthritis M19.90 Heart disease I51.9 Lung disease J98.4 SOB (shortness of breath) R06.02 CAP (community acquired pneumonia) (Resolved) J18.9 Chronic respiratory failure with hypoxia and hypercapnia (Resolved) J96.11, J96.12 Left ventricular thrombus (Resolved) I51.3 terminal clerk current use of anticoagulant (Resolved) Z79.01 Allergies No Known Allergies Allergy (Verified 12/26/19 16:38) Home Medications: Ambulatory Orders Medication Instructions Recorded Hydroxychloroquine [Plaquenil] 200 mg PO BIDCM 08/27/16 Multivitamin [Multiple Vitamins] 1 ea PO DAILY 08/27/16 atezolizumab 1,200 mg/20 mL (60 60 mg IV UD ml 08/27/18 mg/mL) intravenous solution Cholecalciferol (VIT D3) [Vitamin 1,000 unit PO BID 12/01/18 D3] Omeprazole 40 mg PO DAILY 12/01/18 Albuterol Inhaler [Ventolin Hfa] 2 puff INHALATION Q4H PRN PRN 12/20/18 inhaler magnesium oxide 400 mg (241.3 mg 400 mg PO BIDCM #180 tab 03/14/19 magnesium) tablet aspirin 81 mg tablet,delayed 81 mg PO QODAY tab 03/28/19 release atorvastatin 40 mg tablet 40 mg PO QHS #90 tab 08/22/19 carvedilol 6.25 mg tablet 6.25 mg PO BID #180 tab 09/22/19 losartan 25 mg tablet 25 mg PO DAILY #90 tab 10/03/19 levothyroxine 125 mcg tablet 125 mcg PO DAILY 10/11/19 furosemide 40 mg tablet 40 mg PO QAM #180 tab 11/08/19 potassium chloride 20 mEq 20 meq PO BID tab 11/08/19 tablet,extended release(part/cryst) Cetirizine HCl [Zyrtec] 10 mg PO QHS 12/26/19 Fluticasone/Salmeterol [Advair HFA] 2 puff INHALATION BID 12/26/19 Umeclidinium Hortense Inhaler 1 inh INHALATION DAILY 12/26/19 [Incruse Ellipta] Surgical History: Surgical History (Last Reviewed 12/26/19 @ 19:[address] Giancarlo Ralph, DO) Implantable cardioverter-defibrillator (ICD) in situ (Chronic) Onset Date: 12/27/16 Z95.810 [employer] Dynogen EL ICD, model D150; Seriao # [id number] History of left heart catheterization (Chronic) Z98.890 Mild, nonobstructive CAD per [facility] 08/29/2016 @ [facility] per Dr. Cantrell Surgical History: no surgical history Psychiatric History: No pertinent psych hx Smoking Status: Former smoker - *Family History Maternal Family History: Family History (Last Reviewed 12/26/19 @ 19:[address] Giancarlo Ralph DO) Mother Heart disease Brother CVA (cerebral vascular accident) Father Cancer Grandmother Diabetes History Items: - - No COPD Paternal Family History: Family History (Last Reviewed 12/26/19 @ 19:[address] Giancarlo Ralph DO) Mother Heart disease Brother CVA (cerebral vascular accident) Father Cancer Grandmother Diabetes History Items: - - No COPD Review of Systems Constitutional: Denies: Anorexia, Chills, Fever HEENT: Denies: Difficulty Swallowing Cardiovascular: Denies: Chest Pain Respiratory: Reports: Cough, Shortness of Breath, Wheezing Gastrointestinal: Reports: Abdominal Pain. Denies: Nausea, Vomiting Genitourinary: Denies: Dysuria, Hesitancy Skin: Denies: Dryness, Jaundice Neurological: Denies: Balance problems Hematologic/ Lymphatic: Reports: Anemia VTE Information - Inpt Only VTE Present on Admission: No VTE Mechan Device Prophylaxis: SCD's Patient Problems: Active and Suspected Problems (Last Reviewed 12/26/19 @ 19:[address] Giancarlo Ralph DO) Appendicitis, acute (Acute) - Physical Exam Vitals/I&O's: Vital Signs Temp Pulse Resp BP Pulse Ox 98.0 F 78 16 146/83 H 100 12/26/19 20:07 12/26/19 20:07 12/26/19 20:07 12/26/19 20:07 12/26/19 20:07 Oxygen Flow Rate (L/min) 2 Oxygen Delivery Method Room Air Weight: 152 lb 12.485 oz Body Mass Index (BMI) 25.4 Finger Stick Blood Glucose 126 Intake and Output for Last 24 Hours 12/24/19 12/25/19 12/26/19 23:59 23:59 23:59 Intake Total 50 / 50 Balance 50 / 50 General: Alert, Oriented x3, Cooperative, No apparent distress HEENT: Atraumatic Neck: No JVD Lungs: Diminished Cardiovascular: Regular rate, Regular Rhythm Abdomen: Soft, Non-Distended, Tender - Tender in right lower quadrant with no guarding Extremities: No clubbing Skin: No breakdown Musculoskeletal: No Muscle Wasting Neurological: Cranial nerves II-XII grossly intact Psych/Mental Status: Normal Affect Laboratory Results 12/26/19 18:00: Urine Color Yellow, Urine Clarity Clear, Urine pH 5.0, Ur Specific [place] 1.020, Urine Protein Negative, Urine Glucose (UA) Normal, Urine Ketones Negative, Urine Occult Blood Negative, Urine Nitrite Negative, Urine Bilirubin Negative, Urine Urobilinogen Normal, Ur Leukocyte Esterase Negative, Urine RBC 0 SEEN, Urine WBC 0 SEEN, Ur Squamous Epith Cells 0 SEEN, Urine Bacteria 0 SEEN, Urine Mucus 0 SEEN 12/26/19 18:53: WBC 16.2 H, RBC 3.52 L, Hgb 11.3 L, Hct 34.0 L, MCV 96.6 H, MCH 32.1 H, MCHC 33.2, RDW Std Deviation 53.7 H, RDW Coeff of Sydni 15.4 H, Plt Count 151, MPV 9.9, Immature Gran % (Auto) 2.000 H, Neut % (Auto) 81.3 H, Lymph % (Auto) 6.9 L, [place] % (Auto) 8.0, Eos % (Auto) 1.5, Baso % (Auto) 0.3, Absolute Neuts (auto) 13.2 H, Absolute Lymphs (auto) 1.12, Nucleated RBC % 0 12/26/19 18:53: Sodium 136, Potassium 4.4, Chloride 100, Carbon Dioxide 31.0, Anion Gap 5, BUN 30 H, Creatinine 1.47 H, Estim Creat Clear Calc 41.26, Est GFR (MDRD) Af Amer 61, Est GFR (MDRD) Non-Af 51 L, BUN/Creatinine Ratio 20.4 H, Glucose 111 H, Calcium 9.3 Clinical Impression(s) from Imaging Studies Abdomen/Pelvis CT 12/26/19 17:00 IMPRESSION: 1. Findings consistent with acute appendicitis, as described. No demonstrated abscess or free gas. 2. Chronic sigmoid diverticulosis again noted. No sign of bowel obstruction. 3. Moderate elevation of the right diaphragm again noted, with minor subsegmental atelectasis in the adjacent right lung base. Stable left base focal atelectasis or scarring. 4. Atherosclerotic vascular calcifications again noted. No demonstrated aortic aneurysm. N.B. : The above information has been verbally conveyed by Dewayne Perez MD to Sameera Tan MD, on 12/26/2019 18:25:41 (ET). Electronically Signed: Dewayne Perez MD at 18:27 EDT , Service support , ADDENDUM: 12/26/19 1834 IMPRESSION: 1. Findings consistent with acute appendicitis, as described. No demonstrated abscess or free gas. 2. Chronic sigmoid diverticulosis again noted. No sign of bowel obstruction. 3. Moderate elevation of the right diaphragm again noted, with minor subsegmental atelectasis in the adjacent right lung base. Stable left base focal atelectasis or scarring. 4. Atherosclerotic vascular calcifications again noted. No demonstrated aortic aneurysm. N.B. : The above information has been verbally conveyed by Dewayne Perez MD to Sameera Tan MD, on 12/26/2019 18:25:41 (ET). Electronically Signed: Dewayne Perez MD at 18:27 EDT , Service support , Current Medications Acetaminophen (Tylenol) 650 mg PO Q4H PRN PRN PRN Reason: Pain or Fever Albuterol Sulfate (Ventolin Hfa (Sp)) 2 puff INHALATION Q4H PRN PRN PRN Reason: Wheezing Aspirin (Ecotrin) 81 mg PO QODAY ROLANDO Atorvastatin Calcium (Lipitor) 40 mg PO QHS ROLANDO Carvedilol (Coreg) 6.25 mg PO BID ROLANDO Fentanyl Citrate (Sublimaze (100mcg Ampule)) 50 mcg IV Q2H PRN PRN PRN Reason: Pain Score 6-10/10 Hydroxychloroquine Sulfate (Plaquenil) 200 mg PO BIDCM ROLANDO Sodium Chloride () 1,000 mls @ 60 mls/hr IV .[id number] ROLANDO Levothyroxine Sodium (Synthroid) 125 mcg PO DAILY ROLANDO Losartan Potassium (Cozaar) 25 mg PO DAILY ROLANDO Non-Formulary Medication (Omeprazole) 40 mg PO DAILY ROLANDO Non-Formulary Medication (Fluticasone/Salmeterol) 2 puff inhalation BID ROLANDO Non-Formulary Medication (Cetirizine Hcl [Zyrtec]) 10 mg PO QHS ROLANDO Non-Formulary Medication (Atezolizumab) 60 mg IV UD ROLANDO Ondansetron HCl (Zofran) 4 mg IV Q6H PRN PRN PRN Reason: NAUSEA Potassium Chloride (K-Dur) 20 meq PO BID ROLANDO Umeclidinium Hortense (Incruse Ellipta Inhaler) 1 puff INHALATION DAILY ROLANDO Assessment/Plan All Active Problems (Last Reviewed 12/26/19 @ 19:[address] Giancarlo Ralph, DO) Appendicitis, acute (Acute) Epistaxis (Resolved) Skin tear of right forearm without complication (Acute) Lesion of pelvic bone (Acute) Abrasion of skin (Acute) Hx of colonoscopy (Resolved) Acute respiratory failure with hypoxia (Resolved) Acute on chronic respiratory failure with hypoxia (Resolved) COPD with acute exacerbation (Resolved) CAP (community acquired pneumonia) (Resolved) Chronic respiratory failure with hypoxia and hypercapnia (Resolved) LV (left ventricular) mural thrombus (Resolved) Left ventricular thrombus (Resolved) terminal clerk current use of anticoagulant (Resolved) 69-year-old male with history of COPD, CHF and cardiovascular disease 1. Patient has acute appendicitis per CT scan and he does have elevated white count today. I discussed this with him in detail. I discussed laparoscopic appendectomy. I discussed that he was high risk for surgery given his multiple comorbidities. I discussed the risks include but not limited to bleeding, infection, injury to other organs. I discussed with the patient would remain in the ICU overnight due to his comorbidities. The patient understands and is willing to proceed with surgery. All questions were answered. 2. I have consulted the ICU service as well as the hospitalist service for medical management. Long Franco MD Pager: [facility] [address] [place] [address], [address] [place] [address] Office: Essential Procedure Criteria Procedure Essential: Yes Criteria Note: On 11/01/2019 the [place] Department of Health ([facility]) Public Order signed by [facility] Director Magdalene Hdz M.D., regarding the Management of Non-Essential Surgeries and Procedures for the purpose of preserving Personal Protective Equipment (PPE) and critical hospital capacity and resources within [place] went into effect as of 11/02/2019 at 5:00PM. According to the [facility] Public Order: This action will remain in full force and effect until the State of Emergency declared by the Governor no longer exists or the Director of the [facility] rescinds or modifies this Order.. This [facility] order stated all non-essential or elective surgeries and procedures that utilize PPE should be delayed unless there is undue risk to the current or future health of a patient. After reviewing the aforementioned [facility] Public Order and the patients clinical case, I have determined that the scheduled procedure meets the criteria to go forward. Risk to Patient if Procedure Delayed: Threat to patient's life if surgery or procedure is delayed
--- NOTE | 2019-12-26 20:47 | OP.PCM_ITS ---
Problem List (1) Appendicitis, acute Status: Acute Qualifiers: Acute appendicitis type: unspecified acute appendicitis type Qualified Code(s): K35.80 - Unspecified acute appendicitis Report of Operation Date of Procedure: 12/26/19 Pre-Operative Diagnosis: Acute appendicitis Post-Operative Diagnosis: Same Surgery/Procedure Performed:: Laparoscopic appendectomy Description of Surgical Findings:: Inflamed appendix, wound class III Specimen's removed: Appendix Description of Procedure: The patient was brought into the operating room and general anesthesia was induced. The left arm was tucked and the abdomen was prepped and draped in usual sterile fashion. A small midline incision was made superior to the umbilicus and deepened to the level of the fascia. The fascia was elevated and incised. The peritoneum was also elevated and incised. A finger sweep was performed and a balloon trocar was placed into the abdomen and inflated. The abdomen was insufflated to 15 mmHg and the camera was inserted and the abdomen was inspected for any injuries upon entering the abdomen. There were none. The patient was placed in Trendelenburg position and a 5 mm ports placed in the left lower quadrant and suprapubic areas under direct visualization. Next using atraumatic bowel graspers the appendix was identified. The appendix was grasped and elevated and Enseal was used to take down the mesoappendix. A stapler was used to come across the base of the appendix. The appendix was then placed in Endo Catch bag and removed through the umbilical incision. The staple line was inspected and found to be hemostatic and intact. The 2 5 mm ports are removed under direct visualization. The balloon trocar was deflated and removed and all the air was removed from the abdomen. The umbilical incision fascia was closed with an 0 Vicryl [id number] suture. The incisions were then irrigated with saline and dried. Local anesthetic was injected into the incision sites. The skin incisions were then closed with interrupted 4-0 Monocryl suture and Steri- Strips. Bandages were applied and the patient was awoken and taken to PACU in stable condition. Patient tolerated the procedure well. - Admit VTE Documentation VTE Mechan Device Prophylaxis: SCD's
[2019-12-26] MEDS: fentaNYL 100 MCG/2 ML Ampul 50 MCG IV (22:06)
[2019-12-26] MEDS: 0.9% Normal Saline 1,000 ML 60 ML IV (22:09)
[2019-12-26] MEDS: Ipratropium/Albuterol Sulfate 3 ML AMPUL.NEB INHALATION (22:42)
[2019-12-27] VITALS (19 sets, daily range): BP systolic 95–126; BP diastolic 49–87; PULSE 70–96; RESP 15–19; TEMP 36.3–36.9; O2SAT 94–100
[2019-12-27] MEDS: Acetaminophen 325 MG Tablet 650 MG PO ×3 (04:07→21:22)
[2019-12-27 05:01] LABS: Absolute Lymphocyte Count 1.39 X10^3/uL (0.83-4.51); Absolute Neutrophil Count 8.1 X10^3/uL (2.0-7.7); Basophil# 0.02 X10^3/uL; Basophil% 0.2 % (0-1); Eosinophil# 0.22 X10^3/uL; Eosinophils% 2.1 % (0-5); Hematocrit 28.8 % (40-54); Hemoglobin 9.6 g/dL (13.0-16.5); Lymphocyte # 1.39 X10^3/ul (4.0); Mean Corp Hgb Conc 33.3 g/dL (32-36); Mean Corpuscular Hgb 32.5 pg (27.0-32.0); Mean Corpuscular Volume 97.6 fL (80-94); Mean Platelet Vol. 9.4 fl (6.2-12.0); Monocyte# 0.82 X10^3/uL; Monocyte% 7.6 % (0-10); NRBC Flagged by Analyzer 0 % (0-5); Neutrophil # 8.12 X10^3/uL (2.7-7.7); Neutrophil % 75.6 % (47-70); Platelet Count 125 K/mm3 (150-450); RBC Distribution Width CV 15.5 % (11.6-14.6); RBC Distribution Width SD 54.5 fl (35.1-43.9); Red Blood Count 2.95 M/mm3 (4.6-6.2); White Blood Count 10.7 K/mm3 (4.4-11.0)
[2019-12-27 05:09] LABS: Anion Gap 5 (5-15); BUN 25 mg/dL (7-18); BUN/Creat Ratio 18.4 RATIO (10-20); Calcium,Total 8.7 mg/dL (8.5-10.1); Chloride 102 mmol/L (98-107); Creatinine, Serum 1.36 mg/dL (0.70-1.30); EST Glomerular Filtration Rate 55 mL/min (>60); Est Glom Filt Rate - Afr Amer 67 mL/min (>60); Estimated Creatinine Clearance 44.59 ml/min; Glucose 92 mg/dL (74-106); Potassium 4.2 mmol/L (3.5-5.1); Sodium Level 138 mmol/L (136-145)
[2019-12-27] MEDS: Budesonide Respules 0.5 MG/2 ML AMPUL.NEB. INHALATION ×2 (07:59→18:56)
[2019-12-27] MEDS: Ipratropium/Albuterol Sulfate 3 ML AMPUL.NEB INHALATION ×3 (07:59→18:56)
--- NOTE | 2019-12-27 08:08 | PCM.CONS.PUL ---
Problem List (1) Long-term use of high-risk medication Status: Chronic (2) History of left heart catheterization Status: Chronic Comment: Mild, nonobstructive CAD per [facility] 08/29/2016 @ [facility] per Dr. Cantrell (3) Cancer of upper lobe of left lung Status: Chronic Comment: Squamous cell carcinoma (4) Allergic rhinitis Status: Chronic Qualifiers: Allergic rhinitis seasonality: unspecified (5) 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 (6) Chronic systolic (congestive) heart failure Status: Chronic (7) Coronary artery disease Status: Chronic (8) Hypothyroidism Status: Chronic Qualifiers: Hypothyroidism type: unspecified Qualified Code(s): E03.9 - Hypothyroidism, unspecified (9) GERD (gastroesophageal reflux disease) Status: Chronic (10) Secondary pulmonary arterial hypertension Status: Chronic Comment: RVSP 47mm hg per echo 08/28/2016 (unable to estimate per Echo 12/17/2016) (11) Nonischemic cardiomyopathy Status: Chronic Comment: EF 15-20% per heart cath 08/29/2016; 20-35% per echo 12/17/2016 (12) Severe left ventricular systolic dysfunction Status: Chronic Comment: EF 15-20% per heart cath 08/29/2016; 20-35% per echo 12/17/2016 (13) Atherosclerotic heart disease of [place] coronary artery without angina pectoris Status: Chronic Comment: Mild, nonobstructive CAD per [facility] 08/29/2016 @ [facility] per Dr. Cantrell (14) PVD (peripheral vascular disease) Status: Chronic (15) Stage 3 severe COPD by GOLD classification Status: Chronic Comment: FEV1 31 (16) Hyperlipidemia Status: Chronic (17) Psoriatic arthritis Status: Chronic Reason for Consult Date of Consultation: 12/27/19 Reason for Consultation: Medical management History of Present Illness: The patient is a 69 year old M, with past medical history listed below and well-known to me from the outpatient office, who presented to [facility] on 12/26/2019 secondary to severe lower abdominal pain. Patient reportedly was encouraged to come in for evaluation secondary to concerns for appendicitis by his PCP. By time patient arrived, pain had subsided, but patient did report a similar type episode 1 to 2 weeks ago. Patient denied any fevers or chills. Patient is currently on immunotherapy secondary to lung cancer and had denied any previous abdominal surgeries. In the ER, patient was noted to have a leukocytosis of 10.[address] scan that showed acute appendicitis. Dr. Franco was consulted and emergently took the patient to surgery for an appendectomy. Patient reportedly tolerated the procedure well, but given significant comorbidities, patient was monitored in the intensive care unit. Pulmonary was consulted secondary to advanced lung disease. This morning, patient reports that he is subjectively improved compared to previous. Patient has not passed any gas, but reports that his abdominal pain is improving. Patient denies any nausea or vomiting. Patient believes his respiratory status is at its baseline. Patient is on his baseline nasal cannula oxygen. Patient does have a cough productive of clear sputum, but this is not significantly changed compared to previous. Patient does not report any significant chest pain or bleeding. Patient does have chronic bruising at baseline and believes this has not changed. Review of systems otherwise negative from a constitutional, HEENT, respiratory, cardiovascular, GI, genitourinary, musculoskeletal, skin, neurologic, psychiatric and hematologic system unless stated above. Past Medical History Past Medical History (Chronic Problems): Chronic Problems (Last Updated 12/27/19 @ 08:[address] Emeka Rouse MD) Long-term use of high-risk medication (Chronic) Diverticula of colon (Chronic) History of left heart catheterization (Chronic) Mild, nonobstructive CAD per [facility] 08/29/2016 @ [facility] per Dr. 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) Lung cancer (Chronic) Debility (Chronic) Chronic systolic (congestive) heart failure (Chronic) Coronary artery disease (Chronic) Hypothyroidism (Chronic) GERD (gastroesophageal reflux disease) (Chronic) Pneumothorax after biopsy (Chronic) Implantable cardioverter-defibrillator (ICD) in situ (Chronic 12/27/16) [employer] Dynogen EL ICD, model D150; Serflo # [id number] Secondary pulmonary arterial hypertension (Chronic) RVSP 47mm hg per echo 08/28/2016 (unable to estimate per Echo 12/17/2016) Nonischemic cardiomyopathy (Chronic) EF 15-20% per heart cath 08/29/2016; 20-35% per echo 12/17/2016 Severe left ventricular systolic dysfunction (Chronic) EF 15-20% per heart cath 08/29/2016; 20-35% per echo 12/17/2016 Atherosclerotic heart disease of [place] coronary artery without angina pectoris (Chronic) Mild, nonobstructive CAD per [facility] 08/29/2016 @ [facility] per Dr. Cantrell PVSamir (peripheral vascular disease) (Chronic) Stage 3 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) FEV1 31 Hyperlipidemia (Chronic) Psoriatic arthritis (Chronic) CHF (congestive heart failure), NYHA class I (Chronic) Medical History: Medical History (Last Updated 12/27/19 @ 08:[address] Emeka Rouse MD) Lung cancer (Chronic) C34.90 Debility (Chronic) R53.81 Chronic systolic (congestive) heart failure (Chronic) I50.22 Coronary artery disease (Chronic) I25.10 Hypothyroidism (Chronic) E03.9 GERD (gastroesophageal reflux disease) (Chronic) K21.9 Lesion of pelvic bone (Acute) M89.9 Pneumothorax after biopsy (Chronic) J95.811 Secondary pulmonary arterial hypertension (Chronic) I27.21 RVSP 47mm hg per echo 08/28/2016 (unable to estimate per Echo 12/17/2016) Nonischemic cardiomyopathy (Chronic) I42.8 EF 15-20% per heart cath 08/29/2016; 20-35% per echo 12/17/2016 Severe left ventricular systolic dysfunction (Chronic) I51.9 EF 15-20% per heart cath 08/29/2016; 20-35% per echo 12/17/2016 Atherosclerotic heart disease of [place] coronary artery without angina pectoris (Chronic) I25.10 Mild, nonobstructive CAD per [facility] 08/29/2016 @ [facility] per Dr. Cantrell PVD (peripheral vascular disease) (Chronic) I73.9 Stage 3 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) J44.9 FEV1 31 Hyperlipidemia (Chronic) E78.5 Psoriatic arthritis (Chronic) L40.50 CHF (congestive heart failure), NYHA class I (Chronic) I50.9 Anemia D64.9 Arthritis M19.90 Allergies No Known Allergies Allergy (Verified 12/26/19 16:38) Home Medications: Ambulatory Orders Medication Instructions Recorded Hydroxychloroquine [Plaquenil] 200 mg PO BIDCM 08/27/16 Multivitamin [Multiple Vitamins] 1 ea PO DAILY 08/27/16 atezolizumab 1,200 mg/20 mL (60 60 mg IV UD ml 08/27/18 mg/mL) intravenous solution Cholecalciferol (VIT D3) [Vitamin 1,000 unit PO BID 12/01/18 D3] Omeprazole 40 mg PO DAILY 12/01/18 Albuterol Inhaler [Ventolin Hfa] 2 puff INHALATION Q4H PRN PRN 12/20/18 inhaler magnesium oxide 400 mg (241.3 mg 400 mg PO BIDCM #180 tab 03/14/19 magnesium) tablet aspirin 81 mg tablet,delayed 81 mg PO QODAY tab 03/28/19 release atorvastatin 40 mg tablet 40 mg PO QHS #90 tab 08/22/19 carvedilol 6.25 mg tablet 6.25 mg PO BID #180 tab 09/22/19 losartan 25 mg tablet 25 mg PO DAILY #90 tab 10/03/19 levothyroxine 125 mcg tablet 125 mcg PO DAILY 10/11/19 furosemide 40 mg tablet 40 mg PO QAM #180 tab 11/08/19 potassium chloride 20 mEq 20 meq PO BID tab 11/08/19 tablet,extended release(part/cryst) Cetirizine HCl [Zyrtec] 10 mg PO QHS 12/26/19 Fluticasone/Salmeterol [Advair HFA] 2 puff INHALATION BID 12/26/19 Umeclidinium Doran Inhaler 1 inh INHALATION DAILY 12/26/19 [Incruse Ellipta] Surgical History: Surgical History (Last Reviewed 12/26/19 @ 19:[address] Giancarlo Ralph DO) Implantable cardioverter-defibrillator (ICD) in situ (Chronic) Onset Date: 12/27/16 Z95.810 [employer] Dynogen EL ICD, model D150; Seriao # [id number] Surgical History: no surgical history Psychiatric History: No pertinent psych hx Smoking Status: Former smoker - *Family History Maternal Family History: Family History (Last Reviewed 12/26/19 @ 19:[address] Giancarlo Ralph DO) Mother Heart disease Brother CVA (cerebral vascular accident) Father Cancer Grandmother Diabetes History Items: - - No COPD Paternal Family History: Family History (Last Reviewed 12/26/19 @ 19:[address] Giancarlo Ralph DO) Mother Heart disease Brother CVA (cerebral vascular accident) Father Cancer Grandmother Diabetes History Items: - - No COPD Review of Systems Comment: See HPI Patient Problems: Active and Suspected Problems (Last Updated 12/27/19 @ 08:[address] Emeka Rouse MD) Appendicitis, acute (Acute) Objective: CT report of the abdomen and pelvis was personally reviewed. Also reviewed patient's most recent cardiac and pulmonary work-up. - Physical Exam Vitals/I&O's: Vital Signs Temp Pulse Resp BP Pulse Ox 36.4 C L 90 18 113/68 99 12/27/19 04:00 12/27/19 05:00 12/27/19 05:00 12/27/19 05:00 12/27/19 05:00 Oxygen Flow Rate (L/min) 3 Oxygen Delivery Method Nasal Cannula Weight: 67.9 kg Body Mass Index (BMI) 24.9 Finger Stick Blood Glucose 126 Intake and Output for Last 24 Hours 12/25/19 12/26/19 12/27/19 23:59 23:59 23:59 Intake Total 101 / 191 210 / 210 Output Total / Balance 101 / 191 185 / 185 General: Alert, Oriented x3, Cooperative, No apparent distress, - - Appears older than stated age. Speaking in full sentences. HEENT: Atraumatic, PERRLA, EOMI, Normocephalic, - - No scleral icterus or injection noted Oral: Moist Mucosa, No Gingival or Mucosal Lesions/ Ulcerations Neck: Supple, No JVD, No Nodes, Trachea Midline Lungs: No rhonchi, No wheeze, No rales, Diminished, - - Symmetric expansion. No dullness to percussion. Cardiovascular: Regular rate, Regular Rhythm, Normal S1, Normal S2, No murmurs, No rub noted, No Gallop Abdomen: Soft, Non-Distended, Bowel Sounds Not Present, Tender - Only over palpation of surgical site Extremities: No cyanosis, No edema, Capillary Refill Less than 3 Seconds, Clubbing Skin: No rashes, No breakdown, - - Various areas of bruising with different levels of healing Musculoskeletal: No Tenderness to Palpation of Joints or Extremities Lymphatic: No Cervical, Supraclavicular, or Inguinal Adenopathy Neurological: Cranial nerves II-XII grossly intact, Neuro grossly intact Psych/Mental Status: Alert and oriented to time, place, person, mood and affect Laboratory Results 12/26/19 18:00: Urine Color Yellow, Urine Clarity Clear, Urine pH 5.0, Ur Specific [place] 1.020, Urine Protein Negative, Urine Glucose (UA) Normal, Urine Ketones Negative, Urine Occult Blood Negative, Urine Nitrite Negative, Urine Bilirubin Negative, Urine Urobilinogen Normal, Ur Leukocyte Esterase Negative, Urine RBC 0 SEEN, Urine WBC 0 SEEN, Ur Squamous Epith Cells 0 SEEN, Urine Bacteria 0 SEEN, Urine Mucus 0 SEEN 12/26/19 18:53: WBC 16.2 H, RBC 3.52 L, Hgb 11.3 L, Hct 34.0 L, MCV 96.6 H, MCH 32.1 H, MCHC 33.2, RDW Std Deviation 53.7 H, RDW Coeff of Sydni 15.4 H, Plt Count 151, MPV 9.9, Immature Gran % (Auto) 2.000 H, Neut % (Auto) 81.3 H, Lymph % (Auto) 6.9 L, Wilkinson % (Auto) 8.0, Eos % (Auto) 1.5, Baso % (Auto) 0.3, Absolute Neuts (auto) 13.2 H, Absolute Lymphs (auto) 1.12, Nucleated RBC % 0 12/26/19 18:53: Sodium 136, Potassium 4.4, Chloride 100, Carbon Dioxide 31.0, Anion Gap 5, BUN 30 H, Creatinine 1.47 H, Estim Creat Clear Calc 41.26, Est GFR (MDRD) Af Amer 61, Est GFR (MDRD) Non-Af 51 L, BUN/Creatinine Ratio 20.4 H, Glucose 111 H, Calcium 9.3 12/27/19 04:20: WBC 10.7, RBC 2.95 L, Hgb 9.6 L, Hct 28.8 L, MCV 97.6 H, MCH 32.5 H, MCHC 33.3, RDW Std Deviation 54.5 H, RDW Coeff of Sydni 15.5 H, Plt Count 125 L, MPV 9.4, Immature Gran % (Auto) 1.500 H, Neut % (Auto) 75.6 H, Lymph % (Auto) 13.0 L, Wilkinson % (Auto) 7.6, Eos % (Auto) 2.1, Baso % (Auto) 0.2, Absolute Neuts (auto) 8.1 H, Absolute Lymphs (auto) 1.39, Nucleated RBC % 0 12/27/19 04:20: Sodium 138, Potassium 4.2, Chloride 102, Carbon Dioxide 31.0, Anion Gap 5, BUN 25 H, Creatinine 1.36 H, Estim Creat Clear Calc 44.59, Est GFR (MDRD) Af Amer 67, Est GFR (MDRD) Non-Af 55 L, BUN/Creatinine Ratio 18.4, Glucose 92, Calcium 8.7 Current Medications Acetaminophen (Tylenol) 650 mg PO Q4H PRN PRN PRN Reason: Pain or Fever Last Admin: 12/27/19 04:07 Dose: 650 mg Documented by: Albuterol Sulfate (Ventolin Aerosols) 2.5 mg INHALATION Q4H PRN PRN Albuterol/Ipratropium (Duoneb) 3 ml INHALATION Q6HWA.RT [facility] Last Admin: 12/27/19 07:59 Dose: 3 ml Documented by: Aspirin (Ecotrin) 81 mg PO QODAY [facility]OLANDO Atorvastatin Calcium (Lipitor) 40 mg PO QHS [facility] Last Admin: 12/27/19 02:10 Dose: Not Given Documented by: Budesonide (Pulmicort Aerosol) 0.5 mg INHALATION Q12H.RT [facility] Last Admin: 12/27/19 07:59 Dose: 0.5 mg Documented by: Carvedilol (Coreg) 6.25 mg PO BID [facility] Last Admin: 12/27/19 02:09 Dose: Not Given Documented by: Fentanyl Citrate (Sublimaze (100mcg Ampule)) 50 mcg IV Q2H PRN PRN PRN Reason: Pain Score 6-10/10 Last Admin: 12/26/19 22:06 Dose: 50 mcg Documented by: Furosemide (Lasix) 40 mg PO DAILY [facility] Hydroxychloroquine Sulfate (Plaquenil) 200 mg PO BIDCM [facility] Sodium Chloride () 1,000 mls @ 60 mls/hr IV .[id number] [facility] Last Infusion: 12/27/19 02:00 Dose: 60 mls/hr Documented by: Levothyroxine Sodium (Synthroid) 125 mcg PO DAILY@0600 [facility] Loratadine (Claritin) 10 mg PO DAILY [facility] Losartan Potassium (Cozaar) 25 mg PO DAILY [facility] Non-Formulary Medication (Atezolizumab) 60 mg IV UD [facility] Ondansetron HCl (Zofran) 4 mg IV Q6H PRN PRN PRN Reason: NAUSEA Pantoprazole Sodium (Protonix) 40 mg PO DAILY [facility] Potassium Chloride (K-Dur) 20 meq PO BID ROLANDO Last Admin: 12/27/19 02:09 Dose: Not Given Documented by: Sodium Chloride () 10 - 40 ml IV UD PRN PRN Reason: SALINE FLUSH Clinical Impression(s) from Imaging Studies Abdomen/Pelvis CT 12/26/19 17:00 IMPRESSION: 1. Findings consistent with acute appendicitis, as described. No demonstrated abscess or free gas. 2. Chronic sigmoid diverticulosis again noted. No sign of bowel obstruction. 3. Moderate elevation of the right diaphragm again noted, with minor subsegmental atelectasis in the adjacent right lung base. Stable left base focal atelectasis or scarring. 4. Atherosclerotic vascular calcifications again noted. No demonstrated aortic aneurysm. N.B. : The above information has been verbally conveyed by Dewayne Perez MD to Sameera Tan MD, on 12/26/2019 18:25:41 (ET). Electronically Signed: Dewayne Perez MD at 18:27 EDT , Service support , ADDENDUM: 12/26/19 1834 IMPRESSION: 1. Findings consistent with acute appendicitis, as described. No demonstrated abscess or free gas. 2. Chronic sigmoid diverticulosis again noted. No sign of bowel obstruction. 3. Moderate elevation of the right diaphragm again noted, with minor subsegmental atelectasis in the adjacent right lung base. Stable left base focal atelectasis or scarring. 4. Atherosclerotic vascular calcifications again noted. No demonstrated aortic aneurysm. N.B. : The above information has been verbally conveyed by Dewayne Perez MD to Sameera Tan MD, on 12/26/2019 18:25:41 (ET). Electronically Signed: Dewayne Perez MD at 18:27 EDT , Service support , Assessment/Plan All Active Problems (Last Updated 12/27/19 @ 08:[address] Emeka Rouse MD) Appendicitis, acute (Acute) Lesion of pelvic bone (Acute) RECOMMENDATIONS: 1. Initiation of diet per surgery 2. Continue baseline pulmonary toileting and AVAPS 3. Supplemental oxygen to keep saturations greater than 90% 4. Therapeutic substitution for baseline medications. No steroid burst at this time 5. Okay to leave the intensive care unit from my perspective IMPRESSIONS: 1. Sepsis secondary to acute appendicitis status post appendectomy postop day #1 Patient appears to have tolerated surgery well. Stressed to the patient the importance of using pulmonary recruitment measures. Patient is very active in pulmonary rehab and is willing to do what ever it takes to get out of here as soon as possible. 2. Chronic hypoxic respiratory failure secondary to advanced COPD Patient appears to be doing well from a respiratory standpoint. Patient does have an FEV1 of 31% at baseline, but appears to be tolerating this well. Patient also has concomitant CHF that complicates therapy. No indication for systemic steroids from my perspective. Therapeutic substitution of baseline medications, pulmonary toileting and AVAPS would be appropriate. 3. Non-small cell lung cancer Patient currently receiving immunotherapy. 4. Chronic systolic congestive heart failure with history of LV thrombus And back on Lasix therapy. On anticoagulation given LV thrombus history. Does not appear to be in acute exacerbation of CHF at this time. Inpatient E&M: 33217 Init Hosp L2
[2019-12-27] MEDS: Loratadine 10 MG Tablet PO (08:27)
[2019-12-27] MEDS: Levothyroxine 125 MCG Tablet PO (08:27)
[2019-12-27] MEDS: Pantoprazole Sodium 40 MG Tablet PO (08:27)
[2019-12-27] MEDS: Carvedilol 6.25 MG Tablet PO ×2 (08:28→21:22)
[2019-12-27] MEDS: Losartan Potassium 25 MG Tablet PO (08:29)
[2019-12-27] MEDS: Furosemide 40 MG Tablet PO (08:31)
--- NOTE | 2019-12-27 09:02 | PN_ITS ---
Patient Problems: Active and Suspected Problems (Last Updated 12/27/19 @ 08:[address] Emeka Rouse MD) Appendicitis, acute (Acute) Subjective: Chief complaint: Follow-up after admission for postoperative medical management. Patient seen and examined. No acute events overnight. This morning, patient denied any significant abdominal pain. Denied nausea or vomiting. He has been on clear liquids. Denied chest pain or shortness of breath. He remained on 3 L of oxygen which is his baseline at home. He has been afebrile, other vital signs are stable. - Physical Exam Vitals/I&O's: Vital Signs Temp Pulse Resp BP Pulse Ox 97.5 F L 86 18 107/68 99 12/27/19 04:00 12/27/19 06:00 12/27/19 06:00 12/27/19 06:00 12/27/19 06:00 Oxygen Flow Rate (L/min) 3 Oxygen Delivery Method Nasal Cannula Weight: 149 lb 11.102 oz Body Mass Index (BMI) 24.9 Finger Stick Blood Glucose 126 Intake and Output for Last 24 Hours 12/25/19 12/26/19 12/27/19 23:59 23:59 23:59 Intake Total 101 / 191 210 / 210 Output Total / Balance 101 / 191 185 / 185 General: Alert, Oriented x3, Cooperative, No apparent distress HEENT: Atraumatic, PERRLA, EOMI, Normocephalic Oral: Moist Mucosa, No Gingival or Mucosal Lesions/ Ulcerations Neck: Supple, No JVD, Negative Carotid Bruits, Trachea Midline, Thyroid Normal Size and Texture Lungs: Clear to auscultation, Normal air movement, No rhonchi, No wheeze, No rales, Diminished Cardiovascular: Regular rate, Regular Rhythm, Normal S1, Normal S2, PMI Normal Abdomen: Bowel Sounds Present, Soft, Non-Distended, No Hepato-splenomegaly, Tender - Minimal tenderness. Extremities: No clubbing, No cyanosis, No edema Skin: No rashes, No breakdown Lymphatic: No Cervical, Supraclavicular, or Inguinal Adenopathy Neurological: Cranial nerves II-XII grossly intact, Motor Exam 5/5 strength throughout Psych/Mental Status: Normal Affect, Appropriate, Alert and oriented to time, place, person, mood and affect Laboratory Results 12/26/19 18:00: Urine Color Yellow, Urine Clarity Clear, Urine pH 5.0, Ur Specific [place] 1.020, Urine Protein Negative, Urine Glucose (UA) Normal, Urine Ketones Negative, Urine Occult Blood Negative, Urine Nitrite Negative, Urine Bilirubin Negative, Urine Urobilinogen Normal, Ur Leukocyte Esterase Negative, Urine RBC 0 SEEN, Urine WBC 0 SEEN, Ur Squamous Epith Cells 0 SEEN, Urine Bacteria 0 SEEN, Urine Mucus 0 SEEN 12/26/19 18:53: WBC 16.2 H, RBC 3.52 L, Hgb 11.3 L, Hct 34.0 L, MCV 96.6 H, MCH 32.1 H, MCHC 33.2, RDW Std Deviation 53.7 H, RDW Coeff of Sydni 15.4 H, Plt Count 151, MPV 9.9, Immature Gran % (Auto) 2.000 H, Neut % (Auto) 81.3 H, Lymph % (Auto) 6.9 L, [place] % (Auto) 8.0, Eos % (Auto) 1.5, Baso % (Auto) 0.3, Absolute Neuts (auto) 13.2 H, Absolute Lymphs (auto) 1.12, Nucleated RBC % 0 12/26/19 18:53: Sodium 136, Potassium 4.4, Chloride 100, Carbon Dioxide 31.0, Anion Gap 5, BUN 30 H, Creatinine 1.47 H, Estim Creat Clear Calc 41.26, Est GFR (MDRD) Af Amer 61, Est GFR (MDRD) Non-Af 51 L, BUN/Creatinine Ratio 20.4 H, Glucose 111 H, Calcium 9.3 12/27/19 04:20: WBC 10.7, RBC 2.95 L, Hgb 9.6 L, Hct 28.8 L, MCV 97.6 H, MCH 32.5 H, MCHC 33.3, RDW Std Deviation 54.5 H, RDW Coeff of Sydni 15.5 H, Plt Count 125 L, MPV 9.4, Immature Gran % (Auto) 1.500 H, Neut % (Auto) 75.6 H, Lymph % (Auto) 13.0 L, [place] % (Auto) 7.6, Eos % (Auto) 2.1, Baso % (Auto) 0.2, Absolute Neuts (auto) 8.1 H, Absolute Lymphs (auto) 1.39, Nucleated RBC % 0 12/27/19 04:20: Sodium 138, Potassium 4.2, Chloride 102, Carbon Dioxide 31.0, Anion Gap 5, BUN 25 H, Creatinine 1.36 H, Estim Creat Clear Calc 44.59, Est GFR (MDRD) Af Amer 67, Est GFR (MDRD) Non-Af 55 L, BUN/Creatinine Ratio 18.4, Glucose 92, Calcium 8.7 Current Medications Acetaminophen (Tylenol) 650 mg PO Q4H PRN PRN PRN Reason: Pain or Fever Last Admin: 12/27/19 04:07 Dose: 650 mg Documented by: Albuterol Sulfate (Ventolin Aerosols) 2.5 mg INHALATION Q4H PRN PRN Albuterol/Ipratropium (Duoneb) 3 ml INHALATION Q6HWA.RT [facility] Last Admin: 12/27/19 07:59 Dose: 3 ml Documented by: Aspirin (Ecotrin) 81 mg PO QODAY [facility] Atorvastatin Calcium (Lipitor) 40 mg PO QHS [facility] Last Admin: 12/27/19 02:10 Dose: Not Given Documented by: Budesonide (Pulmicort Aerosol) 0.5 mg INHALATION Q12H.RT [facility] Last Admin: 12/27/19 07:59 Dose: 0.5 mg Documented by: Carvedilol (Coreg) 6.25 mg PO BID [facility] Last Admin: 12/27/19 08:28 Dose: 6.25 mg Documented by: Fentanyl Citrate (Sublimaze (100mcg Ampule)) 50 mcg IV Q2H PRN PRN PRN Reason: Pain Score 6-10/10 Last Admin: 12/26/19 22:06 Dose: 50 mcg Documented by: Furosemide (Lasix) 40 mg PO DAILY [facility] Last Admin: 12/27/19 08:31 Dose: 40 mg Documented by: Hydroxychloroquine Sulfate (Plaquenil) 200 mg PO BIDCM [facility] Last Admin: 12/27/19 08:28 Dose: Not Given Documented by: Sodium Chloride () 1,000 mls @ 60 mls/hr IV .[id number] [facility] Last Infusion: 12/27/19 02:00 Dose: 60 mls/hr Documented by: Levothyroxine Sodium (Synthroid) 125 mcg PO DAILY@0600 [facility] Last Admin: 12/27/19 08:27 Dose: 125 mcg Documented by: Loratadine (Claritin) 10 mg PO DAILY [facility] Last Admin: 12/27/19 08:27 Dose: 10 mg Documented by: Losartan Potassium (Cozaar) 25 mg PO DAILY [facility] Last Admin: 12/27/19 08:29 Dose: 25 mg Documented by: Non-Formulary Medication (Atezolizumab) 60 mg IV UD [facility] Ondansetron HCl (Zofran) 4 mg IV Q6H PRN PRN PRN Reason: NAUSEA Pantoprazole Sodium (Protonix) 40 mg PO DAILY [facility] Last Admin: 12/27/19 08:27 Dose: 40 mg Documented by: Potassium Chloride (K-Dur) 20 meq PO BID [facility] Last Admin: 12/27/19 08: Dose: 20 meq Documented by: Sodium Chloride () 10 - 40 ml IV UD PRN PRN Reason: SALINE FLUSH Medical Necessity - Tobacco Use Smoking Status: Former smoker Assessment/Plan All Active Problems (Last Updated 12/27/19 @ 08:[address] Emeka Rouse MD) Appendicitis, acute (Acute) This is a 69 years old male patient presented to the emergency room because of abdominal pain and he was found to have acute appendicitis, underwent laparoscopic appendectomy following up this patient in consultation for postoperative medical management. #1 acute appendicitis: Status post laparoscopic appendectomy, postoperative day 1. Patient denied any significant abdominal pain, tolerating clear liquids. Vital signs are stable. Routine blood work reviewed. Patient will be transferred out of the ICU today, advance diet as tolerated. #2 acute kidney injury: Baseline kidney function is normal. Likely due to dehydration and acute appendicitis. He is on gentle IV fluids for hydration. Plan to continue gentle IV fluids for hydration, close monitoring of volume status, repeat BMP tomorrow morning. #3 COPD/chronic respiratory failure: On 3 L of oxygen at baseline. Denied any worsening shortness of breath, remained stable on 3 L of oxygen. He is on DuoNeb every 6 hours, albuterol PRN. #4 coronary artery disease: Stable, no complaints. Continue aspirin, statins, Coreg and losartan. #5 nonischemic cardiomyopathy/chronic systolic CHF: Compensated, stable. Continue aspirin, statins, Coreg, losartan. #6 hypothyroidism: Continue levothyroxine. #7 chronic anemia: Likely due to anemia of chronic disease. Baseline hemoglobin has been fluctuating anywhere between 7 to 11 g/dL. Today's hemoglobin is 9.6 g/dL, stable at baseline. Plan to monitor. #8 GERD: Continue Protonix. #9 hyperlipidemia: Continue statins. #10 DVT prophylaxis. SCDs. This note was generated with [employer] dictation software. It may contain incorrect words, spelling, and punctuation that were not noted in checking the note before signing. Inpatient E&M: 92697 Subs Hosp L2
--- NOTE | 2019-12-27 09:42 | PCM.PN.SRG ---
Patient Problems: Active and Suspected Problems (Last Updated 12/27/19 @ 09:[address] Emeka Rouse MD) Appendicitis, acute (Acute) Subjective: Patient is doing well this morning and tolerating clear liquid diet. - Physical Exam Vitals/I&O's: Vital Signs Temp Pulse Resp BP Pulse Ox 98.4 F 83 17 109/53 L 100 12/27/19 09:00 12/27/19 09:10 12/27/19 09:00 12/27/19 09:00 12/27/19 09:00 Oxygen Flow Rate (L/min) 3 Oxygen Delivery Method Room Air Weight: 149 lb 11.102 oz Body Mass Index (BMI) 24.9 Finger Stick Blood Glucose 126 Intake and Output for Last 24 Hours 12/25/19 12/26/19 12/27/19 23:59 23:59 23:59 Intake Total 101 / 191 210 / 210 Output Total / Balance 101 / 191 185 / 185 General: Alert, Oriented x3 Lungs: Normal air movement Cardiovascular: Regular rate, Regular Rhythm Abdomen: Soft, Non Tender, Non-Distended Laboratory Results 12/26/19 18:00: Urine Color Yellow, Urine Clarity Clear, Urine pH 5.0, Ur Specific [place] 1.020, Urine Protein Negative, Urine Glucose (UA) Normal, Urine Ketones Negative, Urine Occult Blood Negative, Urine Nitrite Negative, Urine Bilirubin Negative, Urine Urobilinogen Normal, Ur Leukocyte Esterase Negative, Urine RBC 0 SEEN, Urine WBC 0 SEEN, Ur Squamous Epith Cells 0 SEEN, Urine Bacteria 0 SEEN, Urine Mucus 0 SEEN 12/26/19 18:53: WBC 16.2 H, RBC 3.52 L, Hgb 11.3 L, Hct 34.0 L, MCV 96.6 H, MCH 32.1 H, MCHC 33.2, RDW Std Deviation 53.7 H, RDW Coeff of Sydni 15.4 H, Plt Count 151, MPV 9.9, Immature Gran % (Auto) 2.000 H, Neut % (Auto) 81.3 H, Lymph % (Auto) 6.9 L, [place] % (Auto) 8.0, Eos % (Auto) 1.5, Baso % (Auto) 0.3, Absolute Neuts (auto) 13.2 H, Absolute Lymphs (auto) 1.12, Nucleated RBC % 0 12/26/19 18:53: Sodium 136, Potassium 4.4, Chloride 100, Carbon Dioxide 31.0, Anion Gap 5, BUN 30 H, Creatinine 1.47 H, Estim Creat Clear Calc 41.26, Est GFR (MDRD) Af Amer 61, Est GFR (MDRD) Non-Af 51 L, BUN/Creatinine Ratio 20.4 H, Glucose 111 H, Calcium 9.3 12/27/19 04:20: WBC 10.7, RBC 2.95 L, Hgb 9.6 L, Hct 28.8 L, MCV 97.6 H, MCH 32.5 H, MCHC 33.3, RDW Std Deviation 54.5 H, RDW Coeff of Sydni 15.5 H, Plt Count 125 L, MPV 9.4, Immature Gran % (Auto) 1.500 H, Neut % (Auto) 75.6 H, Lymph % (Auto) 13.0 L, [place] % (Auto) 7.6, Eos % (Auto) 2.1, Baso % (Auto) 0.2, Absolute Neuts (auto) 8.1 H, Absolute Lymphs (auto) 1.39, Nucleated RBC % 0 12/27/19 04:20: Sodium 138, Potassium 4.2, Chloride 102, Carbon Dioxide 31.0, Anion Gap 5, BUN 25 H, Creatinine 1.36 H, Estim Creat Clear Calc 44.59, Est GFR (MDRD) Af Amer 67, Est GFR (MDRD) Non-Af 55 L, BUN/Creatinine Ratio 18.4, Glucose 92, Calcium 8.7 Current Medications Acetaminophen (Tylenol) 650 mg PO Q4H PRN PRN PRN Reason: Pain or Fever Last Admin: 12/27/19 04:07 Dose: 650 mg Documented by: Albuterol Sulfate (Ventolin Aerosols) 2.5 mg INHALATION Q4H PRN PRN Albuterol/Ipratropium (Duoneb) 3 ml INHALATION Q6HWA.RT [facility] Last Admin: 12/27/19 07:59 Dose: 3 ml Documented by: Aspirin (Ecotrin) 81 mg PO QODAY [facility] Atorvastatin Calcium (Lipitor) 40 mg PO QHS [facility] Last Admin: 12/27/19 02:10 Dose: Not Given Documented by: Budesonide (Pulmicort Aerosol) 0.5 mg INHALATION Q12H.RT [facility] Last Admin: 12/27/19 07:59 Dose: 0.5 mg Documented by: Carvedilol (Coreg) 6.25 mg PO BID [facility] Last Admin: 12/27/19 08:28 Dose: 6.25 mg Documented by: Fentanyl Citrate (Sublimaze (100mcg Ampule)) 50 mcg IV Q2H PRN PRN PRN Reason: Pain Score 6-10/10 Last Admin: 12/26/19 22:06 Dose: 50 mcg Documented by: Furosemide (Lasix) 40 mg PO DAILY [facility] Last Admin: 12/27/19 08:31 Dose: 40 mg Documented by: Hydroxychloroquine Sulfate (Plaquenil) 200 mg PO BIDCM [facility] Last Admin: 12/27/19 08:28 Dose: Not Given Documented by: Sodium Chloride () 1,000 mls @ 60 mls/hr IV .[id number] [facility] Last Infusion: 12/27/19 02:00 Dose: 60 mls/hr Documented by: Levothyroxine Sodium (Synthroid) 125 mcg PO DAILY@0600 [facility] Last Admin: 12/27/19 08:27 Dose: 125 mcg Documented by: Loratadine (Claritin) 10 mg PO DAILY [facility] Last Admin: 12/27/19 08:27 Dose: 10 mg Documented by: Losartan Potassium (Cozaar) 25 mg PO DAILY [facility] Last Admin: 12/27/19 08:29 Dose: 25 mg Documented by: Ondansetron HCl (Zofran) 4 mg IV Q6H PRN PRN PRN Reason: NAUSEA Pantoprazole Sodium (Protonix) 40 mg PO DAILY [facility] Last Admin: 12/27/19 08:27 Dose: 40 mg Documented by: Potassium Chloride (K-Dur) 20 meq PO BID [facility] Last Admin: 12/27/19 08:27 Dose: 20 meq Documented by: Sodium Chloride () 10 - 40 ml IV UD PRN PRN Reason: SALINE FLUSH Medical Necessity - Tobacco Use Smoking Status: Former smoker Assessment/Plan All Active Problems (Last Updated 12/27/19 @ 09:[address] Emeka Rouse MD) Appendicitis, acute (Acute) 69-year-old male status post laparoscopic appendectomy for acute appendicitis 1. Patient did well overnight. He was extubated directly after surgery. I will continue clear liquid diet for the remainder of the morning and afternoon and likely start a regular diet this evening and hopefully discharge him tomorrow. I will transfer him out of the ICU. Due to the friability of his tissue and steroid use I would like to observe him for 1 additional day. Long Franco MD Pager: [facility] [address] [place] [address] [address] [place] [address] Office:
[2019-12-27] MEDS: Atorvastatin Calcium 40 MG Tablet PO (21:23)
--- NOTE | 2019-12-27 21:45 | NURSING ---
Pt's oxygen turned up to 4L per his request. Pt states he uses 4L at hs. No distress noted.
[2019-12-28] VITALS (7 sets, daily range): BP systolic 98–128; BP diastolic 44–73; PULSE 64–89; RESP 16–20; TEMP 36.6; O2SAT 97–100
[2019-12-28 06:12] LABS: Absolute Lymphocyte Count 0.93 X10^3/uL (0.83-4.51); Absolute Neutrophil Count 5.6 X10^3/uL (2.0-7.7); Basophil# 0.01 X10^3/uL; Basophil% 0.1 % (0-1); Eosinophil# 0.23 X10^3/uL; Hemoglobin 9.1 g/dL (13.0-16.5); Lymphocyte # 0.93 X10^3/ul (4.0); Lymphocyte % 12.3 % (19-41); Mean Corp Hgb Conc 32.5 g/dL (32-36); Mean Corpuscular Volume 98.6 fL (80-94); Mean Platelet Vol. 9.4 fl (6.2-12.0); Monocyte# 0.63 X10^3/uL; Monocyte% 8.3 % (0-10); NRBC Flagged by Analyzer 0 % (0-5); Neutrophil % 74.2 % (47-70); Platelet Count 115 K/mm3 (150-450); RBC Distribution Width CV 15.4 % (11.6-14.6); RBC Distribution Width SD 54.6 fl (35.1-43.9); Red Blood Count 2.84 M/mm3 (4.6-6.2); White Blood Count 7.6 K/mm3 (4.4-11.0)
[2019-12-28] MEDS: Levothyroxine 125 MCG Tablet PO (06:20)
[2019-12-28 06:42] LABS: Anion Gap 5 (5-15); BUN 20 mg/dL (7-18); BUN/Creat Ratio 16.3 RATIO (10-20); Calcium,Total 8.3 mg/dL (8.5-10.1); Chloride 101 mmol/L (98-107); Creatinine, Serum 1.23 mg/dL (0.70-1.30); EST Glomerular Filtration Rate 62 mL/min (>60); Est Glom Filt Rate - Afr Amer 75 mL/min (>60); Estimated Creatinine Clearance 49.31 ml/min; Glucose 93 mg/dL (74-106); Potassium 4.3 mmol/L (3.5-5.1); Sodium Level 138 mmol/L (136-145)
--- NOTE | 2019-12-28 06:53 | PN_ITS ---
Patient Problems: Active and Suspected Problems (Last Updated 12/27/19 @ 09:[address] Emeka Rouse MD) Appendicitis, acute (Acute) Subjective: Patient did well overnight. Patient has yet to pass gas, but feels it coming. Patient denies any significant abdominal pain. Respiratory status has remained stable. Patient reports no change in cough. - Physical Exam Vitals/I&O's: Vital Signs Temp Pulse Resp BP Pulse Ox 36.6 C 75 18 98/50 L 100 12/28/19 04:12 12/28/19 04:12 12/28/19 04:12 12/28/19 04:12 12/28/19 04:12 Oxygen Flow Rate (L/min) 4 Oxygen Delivery Method Nasal Cannula Weight: 67.9 kg Body Mass Index (BMI) 24.9 Finger Stick Blood Glucose 126 Intake and Output for Last 24 Hours 12/26/19 12/27/19 12/28/19 23:59 23:59 23:59 Intake Total 101 / 191 1699 / 1899 500 / 500 Output Total 1275 / 1555 280 / 280 Balance 101 / 191 424 / 344 220 / 220 General: Alert, Oriented x3, Cooperative, No apparent distress, - - Appears older than stated age. Speaking in full sentences. HEENT: Atraumatic, PERRLA, EOMI, Normocephalic, - - No scleral icterus or injection noted. Nasal cannula in place. Oral: Moist Mucosa, No Gingival or Mucosal Lesions/ Ulcerations Neck: Supple, No JVD, No Nodes, Trachea Midline Lungs: No rhonchi, No wheeze, No rales, Diminished, - - Symmetric expansion. No dullness to percussion. Cardiovascular: Regular rate, Regular Rhythm, Normal S1, Normal S2, No murmurs, No rub noted, No Gallop Abdomen: Bowel Sounds Present, Soft, Non Tender, Non-Distended Extremities: No cyanosis, Clubbing, Edema - Trace lower extremity Skin: - - No change compared to previous Musculoskeletal: No Tenderness to Palpation of Joints or Extremities Lymphatic: No Cervical, Supraclavicular, or Inguinal Adenopathy Neurological: Cranial nerves II-XII grossly intact, Neuro grossly intact, Motor Exam 5/5 strength throughout Psych/Mental Status: Alert and oriented to time, place, person, mood and affect Laboratory Results 12/28/19 05:45: WBC 7.6, RBC 2.84 L, Hgb 9.1 L, Hct 28.0 L, MCV 98.6 H, MCH 32.0, MCHC 32.5, RDW Std Deviation 54.6 H, RDW Coeff of Sydni 15.4 H, Plt Count 115 L, MPV 9.4, Immature Gran % (Auto) 2.100 H, Neut % (Auto) 74.2 H, Lymph % (Auto) 12.3 L, [place] % (Auto) 8.3, Eos % (Auto) 3.0, Baso % (Auto) 0.1, Absolute Neuts (auto) 5.6, Absolute Lymphs (auto) 0.93, Nucleated RBC % 0 12/28/19 05:45: Sodium 138, Potassium 4.3, Chloride 101, Carbon Dioxide 32.0, Anion Gap 5, BUN 20 H, Creatinine 1.23, Estim Creat Clear Calc 49.31, Est GFR (MDRD) Af Amer 75, Est GFR (MDRD) Non-Af 62, BUN/Creatinine Ratio 16.3, Glucose 93, Calcium 8.3 L Current Medications Acetaminophen (Tylenol) 650 mg PO Q4H PRN PRN PRN Reason: Pain or Fever Last Admin: 12/27/19 21:22 Dose: 650 mg Documented by: Albuterol Sulfate (Ventolin Aerosols) 2.5 mg INHALATION Q4H PRN PRN Albuterol/Ipratropium (Duoneb) 3 ml INHALATION Q6HWA.RT [facility] Last Admin: 12/27/19 18:56 Dose: 3 ml Documented by: Aspirin (Ecotrin) 81 mg PO QODAY [facility] Atorvastatin Calcium (Lipitor) 40 mg PO QHS [facility] Last Admin: 12/27/19 21:23 Dose: 40 mg Documented by: Budesonide (Pulmicort Aerosol) 0.5 mg INHALATION Q12H.RT [facility] Last Admin: 12/27/19 18:56 Dose: 0.5 mg Documented by: Carvedilol (Coreg) 6.25 mg PO BID [facility] Last Admin: 12/27/19 21:22 Dose: 6.25 mg Documented by: Fentanyl Citrate (Sublimaze (100mcg Ampule)) 50 mcg IV Q2H PRN PRN PRN Reason: Pain Score 6-10/10 Last Admin: 12/26/19 22:06 Dose: 50 mcg Documented by: Furosemide (Lasix) 40 mg PO DAILY [facility] Last Admin: 12/27/19 08:31 Dose: 40 mg Documented by: [facility] Last Admin: 12/27/19 18:43 Dose: Not Given Documented by: Levothyroxine Sodium (Synthroid) 125 mcg PO DAILY@0600 [facility] Last Admin: 12/28/19 06:20 Dose: 125 mcg Documented by: Loratadine (Claritin) 10 mg PO DAILY [facility] Last Admin: 12/27/19 08:27 Dose: 10 mg Documented by: Losartan Potassium (Cozaar) 25 mg PO DAILY [facility] Last Admin: 12/27/19 08:29 Dose: 25 mg Documented by: Ondansetron HCl (Zofran) 4 mg IV Q6H PRN PRN PRN Reason: NAUSEA Pantoprazole Sodium (Protonix) 40 mg PO DAILY [facility] Last Admin: 12/27/19 08:27 Dose: 40 mg Documented by: Potassium Chloride (K-Dur) 20 meq PO BID [facility] Last Admin: 12/27/19 21:22 Dose: 20 meq Documented by: Sodium Chloride () 10 - 40 ml IV UD PRN PRN Reason: SALINE FLUSH Medical Necessity - Tobacco Use Smoking Status: Former smoker Assessment/Plan All Active Problems (Last Updated 12/27/19 @ 09:[address] Emeka Rouse MD) Appendicitis, acute (Acute) RECOMMENDATIONS: 1. Initiation of diet per surgery 2. Continue baseline pulmonary toileting and AVAPS 3. Supplemental oxygen to keep saturations greater than 90% 4. Therapeutic substitution for baseline medications. No steroid burst at this time 5. Okay to discharge from my perspective with resumption of previous pulmonary care plan and follow-up IMPRESSIONS: 1. Sepsis secondary to acute appendicitis status post appendectomy postop day #2 Patient appears to have tolerated surgery well. Stressed to the patient the importance of using pulmonary recruitment measures. Patient is very active in pulmonary rehab and is willing to do what ever it takes to get out of here as soon as possible. Patient appears to be doing well from a respiratory standpoint and would require no changes from baseline pulmonary plan including follow-up. 2. Chronic hypoxic respiratory failure secondary to advanced COPD Patient appears to be doing well from a respiratory standpoint. Patient does have an FEV1 of 31% at baseline, but appears to be tolerating this well. Patient also has concomitant CHF that complicates therapy. No indication for systemic steroids from my perspective. Therapeutic substitution of baseline medications, pulmonary toileting and AVAPS would be appropriate. 3. Non-small cell lung cancer Patient currently receiving immunotherapy. 4. 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 On anticoagulation given LV thrombus history. Does not appear to be in acute exacerbation of CHF at this time. Inpatient E&M: 96615 Subs Hosp L2
[2019-12-28] MEDS: Ipratropium/Albuterol Sulfate 3 ML AMPUL.NEB INHALATION ×3 (07:02→19:07)
[2019-12-28] MEDS: Budesonide Respules 0.5 MG/2 ML AMPUL.NEB. INHALATION ×2 (07:02→19:08)
--- NOTE | 2019-12-28 07:58 | PN_ITS ---
Patient Problems: Active and Suspected Problems (Last Updated 12/27/19 @ 09:[address] Emeka Rouse MD) Appendicitis, acute (Acute) Subjective: Chief complaint: Follow-up after consultation for postoperative medical management. Patient seen and examined. No acute events overnight. He denied any significant abdominal pain. He has been on clear liquids. No flatus, no bowel movement. His vital signs are stable, remained on oxygen. - Physical Exam Vitals/I&O's: Vital Signs Temp Pulse Resp BP Pulse Ox 97.9 F 75 18 98/50 L 100 12/28/19 04:12 12/28/19 04:12 12/28/19 04:12 12/28/19 04:12 12/28/19 04:12 Oxygen Flow Rate (L/min) 4 Oxygen Delivery Method Nasal Cannula Weight: 149 lb 11.102 oz Body Mass Index (BMI) 24.9 Finger Stick Blood Glucose 126 Intake and Output for Last 24 Hours 12/26/19 12/27/19 12/28/19 23:59 23:59 23:59 Intake Total 101 / 191 1699 / 1899 500 / 500 Output Total 1275 / 1555 280 / 280 Balance 101 / 191 424 / 344 220 / 220 General: Alert, Oriented x3, Cooperative, No apparent distress HEENT: Atraumatic, PERRLA, EOMI, Normocephalic Oral: Moist Mucosa, No Gingival or Mucosal Lesions/ Ulcerations Neck: Supple, No JVD, Negative Carotid Bruits, Trachea Midline, Thyroid Normal Size and Texture Lungs: Clear to auscultation, Normal air movement, No rhonchi, No wheeze, No rales, Diminished Cardiovascular: Regular rate, Regular Rhythm, Normal S1, Normal S2, PMI Normal Abdomen: Soft, Non Tender, Non-Distended, No Hepato-splenomegaly, Hypoactive Bowel Sounds Extremities: No clubbing, No cyanosis, No edema Skin: No rashes, No breakdown Lymphatic: No Cervical, Supraclavicular, or Inguinal Adenopathy Neurological: Cranial nerves II-XII grossly intact, Neuro grossly intact Psych/Mental Status: Normal Affect, Appropriate, Alert and oriented to time, place, person, mood and affect Laboratory Results 12/28/19 05:45: WBC 7.6, RBC 2.84 L, Hgb 9.1 L, Hct 28.0 L, MCV 98.6 H, MCH 32.0, MCHC 32.5, RDW Std Deviation 54.6 H, RDW Coeff of Sydni 15.4 H, Plt Count 115 L, MPV 9.4, Immature Gran % (Auto) 2.100 H, Neut % (Auto) 74.2 H, Lymph % (Auto) 12.3 L, [place] % (Auto) 8.3, Eos % (Auto) 3.0, Baso % (Auto) 0.1, Absolute Neuts (auto) 5.6, Absolute Lymphs (auto) 0.93, Nucleated RBC % 0 12/28/19 05:45: Sodium 138, Potassium 4.3, Chloride 101, Carbon Dioxide 32.0, Anion Gap 5, BUN 20 H, Creatinine 1.23, Estim Creat Clear Calc 49.31, Est GFR (MDRD) Af Amer 75, Est GFR (MDRD) Non-Af 62, BUN/Creatinine Ratio 16.3, Glucose 93, Calcium 8.3 L Current Medications Acetaminophen (Tylenol) 650 mg PO Q4H PRN PRN PRN Reason: Pain or Fever Last Admin: 12/27/19 21:22 Dose: 650 mg Documented by: Albuterol Sulfate (Ventolin Aerosols) 2.5 mg INHALATION Q4H PRN PRN Albuterol/Ipratropium (Duoneb) 3 ml INHALATION Q6HWA.RT [facility] Last Admin: 12/28/19 07:02 Dose: 3 ml Documented by: Aspirin (Ecotrin) 81 mg PO QODAY ROLANDO Atorvastatin Calcium (Lipitor) 40 mg PO QHS [facility] Last Admin: 12/27/19 21:23 Dose: 40 mg Documented by: Budesonide (Pulmicort Aerosol) 0.5 mg INHALATION Q12H.RT [facility] Last Admin: 12/28/19 07:02 Dose: 0.5 mg Documented by: Carvedilol (Coreg) 6.25 mg PO BID [facility] Last Admin: 12/27/19 21:22 Dose: 6.25 mg Documented by: Fentanyl Citrate (Sublimaze (100mcg Ampule)) 50 mcg IV Q2H PRN PRN PRN Reason: Pain Score 6-10/10 Last Admin: 12/26/19 22:06 Dose: 50 mcg Documented by: Furosemide (Lasix) 40 mg PO DAILY [facility] Last Admin: 12/27/19 08:31 Dose: 40 mg Documented by: Hydroxychloroquine Sulfate (Plaquenil) 200 mg PO BIDCM [facility] Last Admin: 12/27/19 18:43 Dose: Not Given Documented by: Levothyroxine Sodium (Synthroid) 125 mcg PO DAILY@0600 [facility] Last Admin: 12/28/19 06:20 Dose: 125 mcg Documented by: Loratadine (Claritin) 10 mg PO DAILY [facility] Last Admin: 12/27/19 08:27 Dose: 10 mg Documented by: Losartan Potassium (Cozaar) 25 mg PO DAILY [facility] Last Admin: 12/27/19 08:29 Dose: 25 mg Documented by: Ondansetron HCl (Zofran) 4 mg IV Q6H PRN PRN PRN Reason: NAUSEA Pantoprazole Sodium (Protonix) 40 mg PO DAILY [facility] Last Admin: 12/27/19 08:27 Dose: 40 mg Documented by: Potassium Chloride (K-Dur) 20 meq PO BID [facility] Last Admin: 12/27/19 21:22 Dose: 20 meq Documented by: Sodium Chloride () 10 - 40 ml IV UD PRN PRN Reason: SALINE FLUSH Medical Necessity - Tobacco Use Smoking Status: Former smoker Assessment/Plan All Active Problems (Last Updated 12/27/19 @ 09:[address] Emeka Rouse MD) Appendicitis, acute (Acute) This is a 69 years old male patient presented to the emergency room because of abdominal pain and he was found to have acute appendicitis, underwent laparoscopic appendectomy following up this patient in consultation for postoperative medical management. #1 acute appendicitis: Status post laparoscopic appendectomy, postoperative day 2. He is tolerating clear liquids. So far, no bowel movement and no flatus. Vital signs are stable. Repeat routine blood work was remarkable for chronic anemia with stable hemoglobin, platelet count of 115,000 which is chronic, BMP was unremarkable. General surgery on the case. #2 acute kidney injury: Baseline kidney function is normal. Likely due to dehydration and acute appendicitis. He is off IV fluids, on clear liquids.. Kidney function is back to normal. #3 COPD/chronic respiratory failure: On 3 L of oxygen at baseline. Denied any worsening shortness of breath, remained stable on 3-4 L of oxygen. He is on DuoNeb every 6 hours, albuterol PRN. #4 coronary artery disease: Stable, no complaints. Continue aspirin, statins, Coreg and losartan. #5 nonischemic cardiomyopathy/chronic systolic CHF: Compensated, stable. Continue aspirin, statins, Coreg, losartan. #6 hypothyroidism: Continue levothyroxine. #7 chronic anemia: Likely due to anemia of chronic disease. Baseline hemoglobin has been fluctuating anywhere between 7 to 11 g/dL. Today's hemoglobin is 9.1 g/dL, stable at baseline. #8 GERD: Continue Protonix. #9 hyperlipidemia: Continue statins. #10 DVT prophylaxis. SCDs. This note was generated with [employer] dictation software. It may contain incorrect words, spelling, and punctuation that were not noted in checking the note before signing. Inpatient E&M: 46982 Subs Hosp L2
[2019-12-28] MEDS: Acetaminophen 325 MG Tablet 650 MG PO ×3 (09:07→22:26)
[2019-12-28] MEDS: Furosemide 40 MG Tablet PO (09:07)
[2019-12-28] MEDS: Aspirin E.C. 81 MG Tablet PO (09:07)
[2019-12-28] MEDS: Carvedilol 6.25 MG Tablet PO ×2 (09:07→22:25)
[2019-12-28] MEDS: Pantoprazole Sodium 40 MG Tablet PO (09:07)
[2019-12-28] MEDS: Loratadine 10 MG Tablet PO (09:08)
--- NOTE | 2019-12-28 09:27 | PN.SURG_ITS ---
Patient Problems: Active and Suspected Problems (Last Updated 12/27/19 @ 09:[address] Emeka Rouse MD) Appendicitis, acute (Acute) Subjective: Patient appears to be doing well. He reports the Tylenol is controlling his pain. He is not passing any flatus and does feel little bit bloated. He is not having any nausea or vomiting is tolerating a clear liquid diet. - Physical Exam Vitals/I&O's: Vital Signs Temp Pulse Resp BP Pulse Ox 97.8 F 76 18 113/59 L 100 12/28/19 08:39 12/28/19 08:39 12/28/19 08:39 12/28/19 08:39 12/28/19 08:39 Oxygen Flow Rate (L/min) 3 Oxygen Delivery Method Nasal Cannula Weight: 149 lb 11.102 oz Body Mass Index (BMI) 24.9 Finger Stick Blood Glucose 126 Intake and Output for Last 24 Hours 12/26/19 12/27/19 12/28/19 23:59 23:59 23:59 Intake Total 101 / 191 1699 / 1899 500 / 500 Output Total 1275 / 1555 280 / 280 Balance 101 / 191 424 / 344 220 / 220 General: Alert, Oriented x3 Lungs: Normal air movement Abdomen: Soft, Distended Laboratory Results 12/28/19 05:45: WBC 7.6, RBC 2.84 L, Hgb 9.1 L, Hct 28.0 L, MCV 98.6 H, MCH 32.0, MCHC 32.5, RDW Std Deviation 54.6 H, RDW Coeff of Sydni 15.4 H, Plt Count 115 L, MPV 9.4, Immature Gran % (Auto) 2.100 H, Neut % (Auto) 74.2 H, Lymph % (Auto) 12.3 L, [place] % (Auto) 8.3, Eos % (Auto) 3.0, Baso % (Auto) 0.1, Absolute Neuts (auto) 5.6, Absolute Lymphs (auto) 0.93, Nucleated RBC % 0 12/28/19 05:45: Sodium 138, Potassium 4.3, Chloride 101, Carbon Dioxide 32.0, Anion Gap 5, BUN 20 H, Creatinine 1.23, Estim Creat Clear Calc 49.31, Est GFR (MDRD) Af Amer 75, Est GFR (MDRD) Non-Af 62, BUN/Creatinine Ratio 16.3, Glucose 93, Calcium 8.3 L Current Medications Acetaminophen (Tylenol) 650 mg PO Q4H PRN PRN PRN Reason: Pain or Fever Last Admin: 12/28/19 09:07 Dose: 650 mg Documented by: Albuterol Sulfate (Ventolin Aerosols) 2.5 mg INHALATION Q4H PRN PRN Albuterol/Ipratropium (Duoneb) 3 ml INHALATION Q6HWA.RT [facility] Last Admin: 12/28/19 07:02 Dose: 3 ml Documented by: Aspirin (Ecotrin) 81 mg PO QODAY [facility] Last Admin: 12/28/19 09:07 Dose: 81 mg Documented by: Atorvastatin Calcium (Lipitor) 40 mg PO QHS [facility] Last Admin: 12/27/19 21:23 Dose: 40 mg Documented by: Budesonide (Pulmicort Aerosol) 0.5 mg INHALATION Q12H.RT [facility] Last Admin: 12/28/19 07:02 Dose: 0.5 mg Documented by: Carvedilol (Coreg) 6.25 mg PO BID [facility] Last Admin: 12/28/19 09:07 Dose: 6.25 mg Documented by: Fentanyl Citrate (Sublimaze (100mcg Ampule)) 50 mcg IV Q2H PRN PRN PRN Reason: Pain Score 6-10/10 Last Admin: 12/26/19 22:06 Dose: 50 mcg Documented by: Furosemide (Lasix) 40 mg PO DAILY [facility] Last Admin: 12/28/19 09:07 Dose: 40 mg Documented by: Hydroxychloroquine Sulfate (Plaquenil) 200 mg PO BIDCM [facility] Last Admin: 12/27/19 18:43 Dose: Not Given Documented by: Levothyroxine Sodium (Synthroid) 125 mcg PO DAILY@0600 [facility] Last Admin: 12/28/19 06:20 Dose: 125 mcg Documented by: Loratadine (Claritin) 10 mg PO DAILY [facility] Last Admin: 12/28/19 09:08 Dose: 10 mg Documented by: Losartan Potassium (Cozaar) 25 mg PO DAILY [facility] Last Admin: 12/27/19 08:29 Dose: 25 mg Documented by: Ondansetron HCl (Zofran) 4 mg IV Q6H PRN PRN PRN Reason: NAUSEA Pantoprazole Sodium (Protonix) 40 mg PO DAILY [facility] Last Admin: 12/28/19 09:07 Dose: 40 mg Documented by: Potassium Chloride (K-Dur) 20 meq PO BID [facility] Last Admin: 12/28/19 09:07 Dose: 20 meq Documented by: Sodium Chloride () 10 - 40 ml IV UD PRN PRN Reason: SALINE FLUSH Medical Necessity - Tobacco Use Smoking Status: Former smoker Assessment/Plan All Active Problems (Last Updated 12/27/19 @ 09:[address] Emeka Rouse MD) Appendicitis, acute (Acute) 69-year-old male status post laparoscopic appendectomy 1. Patient may be having postoperative ileus. I will continue clear liquids until he is passing flatus. Encourage ambulation. Once the patient is passing flatus I will advance his diet and he will be ready for discharge. He reports that his pain is well tolerated on Tylenol. He is not having any nausea or vomiting and his abdomen is soft but distended. Long Franco MD Pager: [facility] [address] [place] [address] [address] [place] [address] Office:
--- NOTE | 2019-12-28 10:35 | CASEMGMT ---
RN SHANE [place] COUNSEL CM to room to meet with patient for initial transition planning/care coordination assessment. RN SHANE introduced self and role at [facility]. Pt voices understanding and consents to assessment at this time. Pt sitting up in recliner chair in no distress at this time. Pt is A/O at this time and answers all questions appropriately. Care providers, pharmacy, and demographics verified/updated at this time. PCP: Dr Joseluis Foote Specialists: Dr Rodríguez--pulmonology, Dr Cantrell--cardiology, Dr Murcia--oncology Preferred Pharmacy: [facility] Insurance: [facility], AARP Prescription Benefit: Yes, [employer] Living Will/HPOA: Has both LW and [employer] HANLEY, who is his , Shama. Copies of both are on e-file @ [facility]. LNOK: , Shama Living Arrangements: Lives with his in 2-story home w/basement. States does not use 2nd floor, but does go to basement often where his man milagros is. Has stairlift to basement which he uses. Independent w/ADL's. does meals and home mgmt tasks. Transportation: Pt states drives self and states no transportation concerns at this time. also drives. DME: States has the following DME: Ambulates independently. Has stair lift to basement, grab bars, medical alert button, nebulizer, O2 @ 3 L/M continuously during the day and 4 L/M @ Noc bleed-in to BIPAP. O2 is through [employer]. Pt states no need for further DME at this time. HHC/SNF: TCU and [facility] HHC. Denies need for HHC or OP therapy. Pt wishes to return home and states has no concerns with going home at time of discharge. CM to follow for any discharge planning/needs. Pt voices no further concerns/needs at this time. Advised pt to ask for CM if any further questions/concerns/needs arise. Voices understanding. PLAN: Home w/spousal support and discharge plans in place. Chandrika SETHI RN, CM
[2019-12-28] MEDS: Hydroxychloroquine 200 MG Tablet PO ×2 (11:57→18:04)
[2019-12-28] MEDS: Atorvastatin Calcium 40 MG Tablet PO (22:25)
[2019-12-29 02:50] VITALS: BP 111/54; PULSE 69; RESP 20; TEMP 36.6; O2SAT 100
[2019-12-29] MEDS: Levothyroxine 125 MCG Tablet PO (06:18)
--- NOTE | 2019-12-29 06:56 | PN_ITS ---
Patient Problems: Active and Suspected Problems (Last Updated 12/27/19 @ 09:[address] Emeka Rouse MD) Appendicitis, acute (Acute) Subjective: Patient did well overnight. No acute issues were reported. Patient is on his baseline nasal cannula oxygen and tolerating well. Patient denies any current chest pain. Patient has been on clears and tolerating well. Patient states that he has passed gas at approximately 530 this morning. Patient denies any current abdominal pain unless I move. - Physical Exam Vitals/I&O's: Vital Signs Temp Pulse Resp BP Pulse Ox 36.6 C 69 20 H 111/54 L 100 12/29/19 02:50 12/29/19 02:50 12/29/19 02:50 12/29/19 02:50 12/29/19 02:50 Oxygen Flow Rate (L/min) 4 Oxygen Delivery Method Nasal Cannula Weight: 68 kg Body Mass Index (BMI) 24.9 Finger Stick Blood Glucose 126 Intake and Output for Last 24 Hours 12/27/19 12/28/19 12/29/19 23:59 23:59 23:59 Intake Total 1699 / 1899 1800 / 1800 120 / 120 Output Total 1275 / 1555 1230 / 1230 200 / 200 Balance 424 / 344 570 / 570 -80 / -80 General: Alert, Oriented x3, Cooperative, No apparent distress, - - Appears older than stated age. Speaking in full sentences. HEENT: Atraumatic, PERRLA, EOMI, Normocephalic, - - No scleral icterus or injection noted Oral: Moist Mucosa, No Gingival or Mucosal Lesions/ Ulcerations Neck: Supple, No JVD, No Nodes, Trachea Midline Lungs: No rhonchi, No wheeze, No rales, Diminished, - - Symmetric expansion. No dullness to percussion. Cardiovascular: Regular rate, Regular Rhythm, Normal S1, Normal S2, No murmurs, No rub noted, No Gallop Abdomen: Bowel Sounds Present, Soft, Non-Distended, Tender - Only mildly around the incision. No rebound noted. Extremities: No cyanosis, No edema, Capillary Refill Less than 3 Seconds, Clubbing Skin: - - No change compared to previous. Incision is clean, dry and intact Musculoskeletal: No Tenderness to Palpation of Joints or Extremities Lymphatic: No Cervical, Supraclavicular, or Inguinal Adenopathy Neurological: Cranial nerves II-XII grossly intact, Neuro grossly intact, Motor Exam 5/5 strength throughout Psych/Mental Status: Alert and oriented to time, place, person, mood and affect Current Medications Acetaminophen (Tylenol) 650 mg PO Q4H PRN PRN PRN Reason: Pain or Fever Last Admin: 12/28/19 22:26 Dose: 650 mg Documented by: Albuterol Sulfate (Ventolin Aerosols) 2.5 mg INHALATION Q4H PRN PRN Albuterol/Ipratropium (Duoneb) 3 ml INHALATION Q6HWA.RT [facility] Last Admin: 12/28/19 19:07 Dose: 3 ml Documented by: Aspirin (Ecotrin) 81 mg PO QODAY [facility] Last Admin: 12/28/19 09:07 Dose: 81 mg Documented by: Atorvastatin Calcium (Lipitor) 40 mg PO QHS [facility] Last Admin: 12/28/19 22:25 Dose: 40 mg Documented by: Budesonide (Pulmicort Aerosol) 0.5 mg INHALATION Q12H.RT [facility] Last Admin: 12/28/19 19:08 Dose: 0.5 mg Documented by: Carvedilol (Coreg) 6.25 mg PO BID [facility] Last Admin: 12/28/19 22:25 Dose: 6.25 mg Documented by: Fentanyl Citrate (Sublimaze (100mcg Ampule)) 50 mcg IV Q2H PRN PRN PRN Reason: Pain Score 6-10/10 Last Admin: 12/26/19 22:06 Dose: 50 mcg Documented by: Furosemide (Lasix) 40 mg PO DAILY [facility] Last Admin: 12/28/19 09:07 Dose: 40 mg Documented by: Hydroxychloroquine Sulfate (Plaquenil) 200 mg PO BIDCM [facility] Last Admin: 12/28/19 18:04 Dose: 200 mg Documented by: Levothyroxine Sodium (Synthroid) 125 mcg PO DAILY@0600 [facility] Last Admin: 12/29/19 06:18 Dose: 125 mcg Documented by: Loratadine (Claritin) 10 mg PO DAILY [facility] Last Admin: 12/28/19 09:08 Dose: 10 mg Documented by: Losartan Potassium (Cozaar) 25 mg PO DAILY [facility] Last Admin: 12/28/19 11:56 Dose: Not Given Documented by: Ondansetron HCl (Zofran) 4 mg IV Q6H PRN PRN PRN Reason: NAUSEA Pantoprazole Sodium (Protonix) 40 mg PO DAILY [facility] Last Admin: 12/28/19 09:07 Dose: 40 mg Documented by: Potassium Chloride (K-Dur) 20 meq PO BID [facility] Last Admin: 12/28/19 22:25 Dose: 20 meq Documented by: Sodium Chloride () 10 - 40 ml IV UD PRN PRN Reason: SALINE FLUSH Medical Necessity - Tobacco Use Smoking Status: Former smoker Assessment/Plan All Active Problems (Last Updated 12/27/19 @ 09:[address] Emeka Rouse MD) Appendicitis, acute (Acute) RECOMMENDATIONS: 1. Possibly advance p.o. diet and monitor for tolerance 2. Continue baseline pulmonary toileting and AVAPS 3. Supplemental oxygen to keep saturations greater than 90% 4. Therapeutic substitution for baseline medications. No steroid burst at this time 5. Okay to discharge from my perspective with resumption of previous pulmonary care plan and follow-up IMPRESSIONS: 1. Sepsis secondary to acute appendicitis status post appendectomy postop day #3 Patient appears to have tolerated surgery well. Stressed to the patient the importance of using pulmonary recruitment measures. Patient is very active in pulmonary rehab and is willing to do what ever it takes to get out of here as soon as possible. Patient appears to be doing well from a respiratory standpoint and would require no changes from baseline pulmonary plan including follow-up. Plan was reviewed with patient and he agrees with routine follow-up 2. Chronic hypoxic respiratory failure secondary to advanced COPD Patient appears to be doing well from a respiratory standpoint. Patient does have an FEV1 of 31% at baseline, but appears to be tolerating this well. Patient also has concomitant CHF that complicates therapy. No indication for systemic steroids from my perspective. Therapeutic substitution of baseline medications, pulmonary toileting and AVAPS would be appropriate. 3. Non-small cell lung cancer Patient currently receiving immunotherapy. 4. 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 On anticoagulation given LV thrombus history. Does not appear to be in acute exacerbation of CHF at this time. Inpatient E&M: 25251 [facility] Hosp L2
[2019-12-29 07:07] VITALS: PULSE 85; RESP 16; O2SAT 96
[2019-12-29] MEDS: Ipratropium/Albuterol Sulfate 3 ML AMPUL.NEB INHALATION (07:07)
[2019-12-29] MEDS: Budesonide Respules 0.5 MG/2 ML AMPUL.NEB. INHALATION (07:07)
--- NOTE | 2019-12-29 08:04 | PN_ITS ---
Patient Problems: Active and Suspected Problems (Last Updated 12/27/19 @ 09:[address] Emeka Rouse MD) Appendicitis, acute (Acute) Subjective: Chief complaint: Follow-up after consultation for postoperative medical management. Patient seen and examined. No acute events overnight. He started to pass gas, no bowel movement. No other complaints. His vital signs are stable. - Physical Exam Vitals/I&O's: Vital Signs Temp Pulse Resp BP Pulse Ox 98 F 85 16 111/54 L 96 12/29/19 02:50 12/29/19 07:07 12/29/19 07:07 12/29/19 02:50 12/29/19 07:07 Oxygen Flow Rate (L/min) 3 Oxygen Delivery Method Nasal Cannula Weight: 149 lb 14.629 oz Body Mass Index (BMI) 24.9 Finger Stick Blood Glucose 126 Intake and Output for Last 24 Hours 12/27/19 12/28/19 12/29/19 23:59 23:59 23:59 Intake Total 1699 / 1899 1800 / 1800 120 / 120 Output Total 1275 / 1555 1230 / 1230 200 / 200 Balance 424 / 344 570 / 570 -80 / -80 General: Alert, Oriented x3, Cooperative, No apparent distress HEENT: Atraumatic, PERRLA, EOMI, Normocephalic Oral: Moist Mucosa, No Gingival or Mucosal Lesions/ Ulcerations Neck: Supple, No JVD, Negative Carotid Bruits, Trachea Midline, Thyroid Normal Size and Texture Lungs: Clear to auscultation, Normal air movement, No rhonchi, No wheeze, No rales, Diminished Cardiovascular: Regular rate, Regular Rhythm, Normal S1, Normal S2, PMI Normal Abdomen: Bowel Sounds Present, Soft, Non Tender, Non-Distended, No Hepato- splenomegaly Extremities: No clubbing, No cyanosis, No edema Skin: No rashes, No breakdown Lymphatic: No Cervical, Supraclavicular, or Inguinal Adenopathy Neurological: Cranial nerves II-XII grossly intact, Neuro grossly intact Psych/Mental Status: Normal Affect, Appropriate, Alert and oriented to time, place, person, mood and affect Current Medications Acetaminophen (Tylenol) 650 mg PO Q4H PRN PRN PRN Reason: Pain or Fever Last Admin: 12/28/19 22:26 Dose: 650 mg Documented by: Albuterol Sulfate (Ventolin Aerosols) 2.5 mg INHALATION Q4H PRN PRN Albuterol/Ipratropium (Duoneb) 3 ml INHALATION Q6HWA.RT [facility] Last Admin: 12/29/19 07:07 Dose: 3 ml Documented by: Aspirin (Ecotrin) 81 mg PO QODAY [facility] Last Admin: 12/28/19 09:07 Dose: 81 mg Documented by: Atorvastatin Calcium (Lipitor) 40 mg PO QHS [facility] Last Admin: 12/28/19 22:25 Dose: 40 mg Documented by: Budesonide (Pulmicort Aerosol) 0.5 mg INHALATION Q12H.RT [facility] Last Admin: 12/29/19 07:07 Dose: 0.5 mg Documented by: Carvedilol (Coreg) 6.25 mg PO BID [facility] Last Admin: 12/28/19 22:25 Dose: 6.25 mg Documented by: Fentanyl Citrate (Sublimaze (100mcg Ampule)) 50 mcg IV Q2H PRN PRN PRN Reason: Pain Score 6-10/10 Last Admin: 12/26/19 22:06 Dose: 50 mcg Documented by: Furosemide (Lasix) 40 mg PO DAILY [facility] Last Admin: 12/28/19 09:07 Dose: 40 mg Documented by: Hydroxychloroquine Sulfate (Plaquenil) 200 mg PO BIDCM [facility] Last Admin: 12/28/19 18:04 Dose: 200 mg Documented by: Levothyroxine Sodium (Synthroid) 125 mcg PO DAILY@0600 [facility] Last Admin: 12/29/19 06:18 Dose: 125 mcg Documented by: Loratadine (Claritin) 10 mg PO DAILY [facility] Last Admin: 12/28/19 09:08 Dose: 10 mg Documented by: Losartan Potassium (Cozaar) 25 mg PO DAILY [facility] Last Admin: 12/28/19 11:56 Dose: Not Given Documented by: Ondansetron HCl (Zofran) 4 mg IV Q6H PRN PRN PRN Reason: NAUSEA Pantoprazole Sodium (Protonix) 40 mg PO DAILY [facility] Last Admin: 12/28/19 09:07 Dose: 40 mg Documented by: Potassium Chloride (K-Dur) 20 meq PO BID [facility] Last Admin: 12/28/19 22:25 Dose: 20 meq Documented by: Sodium Chloride () 10 - 40 ml IV UD PRN PRN Reason: SALINE FLUSH Medical Necessity - Tobacco Use Smoking Status: Former smoker Assessment/Plan All Active Problems (Last Updated 12/27/19 @ 09:[address] Emeka Rouse MD) Appendicitis, acute (Acute) This is a 69 years old male patient presented to the emergency room because of abdominal pain and he was found to have acute appendicitis, underwent laparoscopic appendectomy following up this patient in consultation for postoperative medical management. #1 acute appendicitis: Status post laparoscopic appendectomy, postoperative day 3. He is tolerating clear liquids, started to pass gas. Vital signs are stable. No abdominal pain. General surgery on the case. Probably we can advance his diet. #2 acute kidney injury: Baseline kidney function is normal. Likely due to dehydration and acute appendicitis. He is off IV fluids, on clear liquids.. Kidney function is back to normal. #3 COPD/chronic respiratory failure: On 3 L of oxygen at baseline. Denied any worsening shortness of breath, remained stable on 3-4 L of oxygen. He is on DuoNeb every 6 hours, albuterol PRN. #4 coronary artery disease: Stable, no complaints. Continue aspirin, statins, Coreg and losartan. #5 nonischemic cardiomyopathy/chronic systolic CHF: Compensated, stable. Continue aspirin, statins, Coreg, losartan. #6 hypothyroidism: Continue levothyroxine. #7 chronic anemia: Likely due to anemia of chronic disease. Baseline hemoglobin has been fluctuating anywhere between 7 to 11 g/dL. Yesterday's hemoglobin is 9.1 g/dL, stable at baseline. #8 GERD: Continue Protonix. #9 hyperlipidemia: Continue statins. #10 DVT prophylaxis. SCDs. This note was generated with [employer] dictation software. It may contain incorrect words, spelling, and punctuation that were not noted in checking the note before signing. Inpatient E&M: 30868 Subs Hosp L2
--- NOTE | 2019-12-29 09:38 | PN.SURG_ITS ---
Patient Problems: Active and Suspected Problems (Last Updated 12/27/19 @ 09:[address] Emeka Rouse MD) Appendicitis, acute (Acute) Subjective: Patient is doing well and passing flatus - Physical Exam Vitals/I&O's: Vital Signs Temp Pulse Resp BP Pulse Ox 98 F 85 16 111/54 L 96 12/29/19 02:50 12/29/19 07:07 12/29/19 07:07 12/29/19 02:50 12/29/19 07:07 Oxygen Flow Rate (L/min) 3 Oxygen Delivery Method Nasal Cannula Weight: 149 lb 14.629 oz Body Mass Index (BMI) 24.9 Finger Stick Blood Glucose 126 Intake and Output for Last 24 Hours 12/27/19 12/28/19 12/29/19 23:59 23:59 23:59 Intake Total 1699 / 1899 1800 / 1800 120 / 120 Output Total 1275 / 1555 1230 / 1230 200 / 200 Balance 424 / 344 570 / 570 -80 / -80 General: Alert, Oriented x3 Lungs: Normal air movement Abdomen: Soft, Non Tender, Non-Distended Current Medications Acetaminophen (Tylenol) 650 mg PO Q4H PRN PRN PRN Reason: Pain or Fever Last Admin: 12/28/19 22:26 Dose: 650 mg Documented by: Albuterol Sulfate (Ventolin Aerosols) 2.5 mg INHALATION Q4H PRN PRN Albuterol/Ipratropium (Duoneb) 3 ml INHALATION Q6HWA.RT [facility] Last Admin: 12/29/19 07:07 Dose: 3 ml Documented by: Aspirin (Ecotrin) 81 mg PO QODAY [facility] Last Admin: 12/28/19 09:07 Dose: 81 mg Documented by: Atorvastatin Calcium (Lipitor) 40 mg PO QHS [facility] Last Admin: 12/28/19 22:25 Dose: 40 mg Documented by: Budesonide (Pulmicort Aerosol) 0.5 mg INHALATION Q12H.RT [facility] Last Admin: 12/29/19 07:07 Dose: 0.5 mg Documented by: Carvedilol (Coreg) 6.25 mg PO BID [facility] Last Admin: 12/28/19 22:25 Dose: 6.25 mg Documented by: Fentanyl Citrate (Sublimaze (100mcg Ampule)) 50 mcg IV Q2H PRN PRN PRN Reason: Pain Score 6-10/10 Last Admin: 12/26/19 22:06 Dose: 50 mcg Documented by: Furosemide (Lasix) 40 mg PO DAILY [facility] Last Admin: 12/28/19 09:07 Dose: 40 mg Documented by: Hydroxychloroquine Sulfate (Plaquenil) 200 mg PO BIDCM [facility] Last Admin: 12/28/19 18:04 Dose: 200 mg Documented by: Levothyroxine Sodium (Synthroid) 125 mcg PO DAILY@0600 [facility] Last Admin: 12/29/19 06:18 Dose: 125 mcg Documented by: Loratadine (Claritin) 10 mg PO DAILY [facility] Last Admin: 12/28/19 09:08 Dose: 10 mg Documented by: Losartan Potassium (Cozaar) 25 mg PO DAILY [facility] Last Admin: 12/28/19 11:56 Dose: Not Given Documented by: Ondansetron HCl (Zofran) 4 mg IV Q6H PRN PRN PRN Reason: NAUSEA Pantoprazole Sodium (Protonix) 40 mg PO DAILY [facility] Last Admin: 12/28/19 09:07 Dose: 40 mg Documented by: Potassium Chloride (K-Dur) 20 meq PO BID [facility] Last Admin: 12/28/19 22:25 Dose: 20 meq Documented by: Sodium Chloride () 10 - 40 ml IV UD PRN PRN Reason: SALINE FLUSH Medical Necessity - Tobacco Use Smoking Status: Former smoker Assessment/Plan All Active Problems (Last Updated 12/27/19 @ 09:[address] Emeka Rouse MD) Appendicitis, acute (Acute) 69-year-old male status post laparoscopic appendectomy for acute appendicitis 1. Patient is doing well this morning. He is passing flatus and feeling less distended. I will try him on a regular diet and if he tolerates this discharge him home. Long Franco MD Pager: [facility] [address] [place] [address], [address] [place] [address] Office:
--- NOTE | 2019-12-29 09:41 | DS.PCM_ITS ---
Discharge Date and Diagnosis - Problem List Patient Problems: Active and Suspected Problems (Last Updated 12/27/19 @ 09:[address] Emeka Rouse MD) Appendicitis, acute (Acute) Date of Admission: 12/26/19 Date of Discharge: 12/29/19 - Primary Discharge Diagnosis Active and Suspected Problems (Last Updated 12/27/19 @ 09:[address] Emeka Rouse MD) Appendicitis, acute (Acute) - Secondary Discharge Diagnosis Chronic Problems (Last Updated 12/27/19 @ 09:[address] Emeka Rouse MD) Long-term use of high-risk medication (Chronic) Diverticula of colon (Chronic) History of left heart catheterization (Chronic) Mild, nonobstructive CAD per [facility] 08/29/2016 @ [facility] per Dr. 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) Lung cancer (Chronic) Debility (Chronic) Chronic systolic (congestive) heart failure (Chronic) Coronary artery disease (Chronic) Hypothyroidism (Chronic) GERD (gastroesophageal reflux disease) (Chronic) Pneumothorax after biopsy (Chronic) Implantable cardioverter-defibrillator (ICD) in situ (Chronic 12/27/16) [employer] Dynogen EL ICD, model D150; Seriao # [id number] Secondary pulmonary arterial hypertension (Chronic) RVSP 47mm hg per echo 08/28/2016 (unable to estimate per Echo 12/17/2016) Nonischemic cardiomyopathy (Chronic) EF 15-20% per heart cath 08/29/2016; 20-35% per echo 12/17/2016 Severe left ventricular systolic dysfunction (Chronic) EF 15-20% per heart cath 08/29/2016; 20-35% per echo 12/17/2016 Atherosclerotic heart disease of [place] coronary artery without angina pectoris (Chronic) Mild, nonobstructive CAD per [facility] 08/29/2016 @ [facility] per Dr. Cantrell PVD (peripheral vascular disease) (Chronic) Stage 3 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) FEV1 31 Hyperlipidemia (Chronic) Psoriatic arthritis (Chronic) CHF (congestive heart failure), NYHA class I (Chronic) Hospital Course and Treatment Imaging Results: Clinical Impression(s) from Imaging Studies Abdomen/Pelvis CT 12/26/19 17:00 IMPRESSION: 1. Findings consistent with acute appendicitis, as described. No demonstrated abscess or free gas. 2. Chronic sigmoid diverticulosis again noted. No sign of bowel obstruction. 3. Moderate elevation of the right diaphragm again noted, with minor subsegmental atelectasis in the adjacent right lung base. Stable left base focal atelectasis or scarring. 4. Atherosclerotic vascular calcifications again noted. No demonstrated aortic aneurysm. N.B. : The above information has been verbally conveyed by Dewayne Perez MD to Sameera Tan MD, on 12/26/2019 18:25:41 (ET). Electronically Signed: Dewayne Perez MD at 18:27 EDT , Service support , ADDENDUM: 12/26/19 1834 IMPRESSION: 1. Findings consistent with acute appendicitis, as described. No demonstrated abscess or free gas. 2. Chronic sigmoid diverticulosis again noted. No sign of bowel obstruction. 3. Moderate elevation of the right diaphragm again noted, with minor subsegmental atelectasis in the adjacent right lung base. Stable left base focal atelectasis or scarring. 4. Atherosclerotic vascular calcifications again noted. No demonstrated aortic aneurysm. N.B. : The above information has been verbally conveyed by Dewayne Perez MD to Sameera Tan MD, on 12/26/2019 18:25:41 (ET). Electronically Signed: Dewayne Perez MD at 18:27 EDT , Service support , Consultations 12/27/19 05:19 Consult: Onc/Wound/[place] [facility] Routine Comment: Reason for Consult:: left groin cyst with drainage Operations: appendectomy Procedures: None Summary of Care Provided: The patient is a 69 year old M was admitted with right lower quadrant pain and acute appendicitis per CT scan. He was taken to the operating room for laparoscopic appendectomy and placed in the ICU overnight. The following morning he was doing well and transferred to the floor. He developed a mild ileus and was kept on clear liquid diet until he is passing flatus. He was then advanced to a regular diet and discharged home in stable condition. Patient Problems: Active and Suspected Problems (Last Updated 12/27/19 @ 09:[address] Emeka zuluaga MD) Appendicitis, acute (Acute) - Physical Exam Vitals/I&O's: Vital Signs Temp Pulse Resp BP Pulse Ox 98 F 85 16 111/54 L 96 12/29/19 02:50 12/29/19 07:07 12/29/19 07:07 12/29/19 02:50 12/29/19 07:07 Oxygen Flow Rate (L/min) 3 Oxygen Delivery Method Nasal Cannula Weight: 149 lb 14.629 oz Body Mass Index (BMI) 24.9 Finger Stick Blood Glucose 126 Intake and Output for Last 24 Hours 12/27/19 12/28/19 12/29/19 23:59 23:59 23:59 Intake Total 1699 / 1899 1800 / 1800 120 / 120 Output Total 1275 / 1555 1230 / 1230 200 / 200 Balance 424 / 344 570 / 570 -80 / -80 Current Medications Acetaminophen (Tylenol) 650 mg PO Q4H PRN PRN PRN Reason: Pain or Fever Last Admin: 12/28/19 22:26 Dose: 650 mg Documented by: Albuterol Sulfate (Ventolin Aerosols) 2.5 mg INHALATION Q4H PRN PRN Albuterol/Ipratropium (Duoneb) 3 ml INHALATION Q6HWA.RT [facility] Last Admin: 12/29/19 07:07 Dose: 3 ml Documented by: Aspirin (Ecotrin) 81 mg PO QODAY [facility] Last Admin: 12/28/19 09:07 Dose: 81 mg Documented by: Atorvastatin Calcium (Lipitor) 40 mg PO QHS [facility] Last Admin: 12/28/19 22:25 Dose: 40 mg Documented by: Budesonide (Pulmicort Aerosol) 0.5 mg INHALATION Q12H.RT [facility] Last Admin: 12/29/19 07:07 Dose: 0.5 mg Documented by: Carvedilol (Coreg) 6.25 mg PO BID [facility] Last Admin: 12/28/19 22:25 Dose: 6.25 mg Documented by: Fentanyl Citrate (Sublimaze (100mcg Ampule)) 50 mcg IV Q2H PRN PRN PRN Reason: Pain Score 6-10/10 Last Admin: 12/26/19 22:06 Dose: 50 mcg Documented by: Furosemide (Lasix) 40 mg PO DAILY [facility] Last Admin: 12/28/19 09:07 Dose: 40 mg Documented by: Hydroxychloroquine Sulfate (Plaquenil) 200 mg PO BIDCM [facility] Last Admin: 12/28/19 18:04 Dose: 200 mg Documented by: Levothyroxine Sodium (Synthroid) 125 mcg PO DAILY@0600 [facility] Last Admin: 12/29/19 06:18 Dose: 125 mcg Documented by: Loratadine (Claritin) 10 mg PO DAILY [facility] Last Admin: 12/28/19 09:08 Dose: 10 mg Documented by: Losartan Potassium (Cozaar) 25 mg PO DAILY [facility] Last Admin: 12/28/19 11:56 Dose: Not Given Documented by: Ondansetron HCl (Zofran) 4 mg IV Q6H PRN PRN PRN Reason: NAUSEA Pantoprazole Sodium (Protonix) 40 mg PO DAILY [facility] Last Admin: 12/28/19 09:07 Dose: 40 mg Documented by: Potassium Chloride (K-Dur) 20 meq PO BID [facility] Last Admin: 12/28/19 22:25 Dose: 20 meq Documented by: Sodium Chloride () 10 - 40 ml IV UD PRN PRN Reason: SALINE FLUSH Discharge Diet: Light diet - advance as tolerated Discharge Activity: May Not Drive - for 3-5 days or while taking narcotic pain meds. May shower in (days): 1 Call your doctor if your incision/area has: Continuous Slow Oozing, Sudden Increased Bleeding, Increased Pain/ Swelling, Increased Redness, Foul Smelling Discharge Call your doctor if you observe: Fever of 101 or Higher Suture Line Care: Avoid Pulling/Pushing, Avoid Pinching/Bending Additional Dressing/Incision Instructions:: Keep dressing clean and dry. Remove dressings tomorrow. Leave steri strips for 1 week. May protect with a gauze bandaid. Home Medications: Medications to take at Discharge Hydroxychloroquine [Plaquenil] 200 mg PO BIDCM 08/27/16 Multivitamin [Multiple Vitamins] 1 ea PO DAILY 08/27/16 atezolizumab 1,200 mg/20 mL (60 mg/mL) intravenous solution 60 mg IV UD ml 08/27/18 Cholecalciferol (VIT D3) [Vitamin D3] 1,000 unit PO BID 12/01/18 Omeprazole 40 mg PO DAILY 12/01/18 Albuterol Inhaler [Ventolin Hfa] 2 puff INHALATION Q4H PRN PRN inhaler 12/20/18 magnesium oxide 400 mg (241.3 mg magnesium) tablet 400 mg PO BIDCM #180 tab 03/14/19 aspirin 81 mg tablet,delayed release 81 mg PO QODAY tab 03/28/19 atorvastatin 40 mg tablet 40 mg PO QHS #90 tab 08/22/19 carvedilol 6.25 mg tablet 6.25 mg PO BID #180 tab 09/22/19 losartan 25 mg tablet 25 mg PO DAILY #90 tab 10/03/19 levothyroxine 125 mcg tablet 125 mcg PO DAILY 10/11/19 furosemide 40 mg tablet 40 mg PO QAM #180 tab 11/08/19 potassium chloride 20 mEq tablet,extended release(part/cryst) 20 meq PO BID tab 11/08/19 Cetirizine HCl [Zyrtec] 10 mg PO QHS 12/26/19 Fluticasone/Salmeterol [Advair Hfa 230-21 Mcg Inhaler] 2 puff INHALATION BID 12/26/19 Umeclidinium [place] Inhaler [Incruse Ellipta Inhaler] 1 inh INHALATION DAILY 12/26/19 Acetaminophen [Tylenol Tablet] 650 mg PO Q4H PRN PRN tab 12/29/19 Primary Care Physician: Joseluis Foote III, MD [Primary Care Provider] - Please Follow Up With: Long Franco MD When: Please call to schedule 2 week follow up virtual appointment. [phone] Medical Necessity - Tobacco Use Smoking Status: Former smoker Meaningful Use Info Meaningful Use Diagnoses (Choose all that apply): CHF - CHF FELIX/ARB ordered at discharge?: No Reason FELIX/ARB not ordered?: Drug Interaction Documented LVEF (%): 50
[2019-12-29 10:24] VITALS: BP 102/50; PULSE 93; RESP 16; TEMP 36.6; O2SAT 100
[2019-12-29 10:26] VITALS: O2SAT 100
[2019-12-29] MEDS: Hydroxychloroquine 200 MG Tablet PO (10:33)
[2019-12-29] MEDS: Furosemide 40 MG Tablet PO (10:33)
[2019-12-29] MEDS: Pantoprazole Sodium 40 MG Tablet PO (10:42)
[2019-12-29] MEDS: Loratadine 10 MG Tablet PO (10:42)
[2019-12-29] MEDS: Aspirin E.C. 81 MG Tablet PO (10:42)
[2019-12-29] MEDS: Acetaminophen 325 MG Tablet 650 MG PO (10:43)
[2019-12-29] MEDS: Carvedilol 6.25 MG Tablet PO (10:43)
--- NOTE | 2019-12-29 10:47 | PHA.DC.MR ---
Pharmacy Service has performed discharge medication reconciliation for this patient. The patient's discharge medication list was reviewed for discrepancies and discrepancies were resolved. Home Medications Hydroxychloroquine [Plaquenil] 200 mg PO BIDCM 08/27/16 Multivitamin [Multiple Vitamins] 1 ea PO DAILY 08/27/16 atezolizumab 1,200 mg/20 mL (60 mg/mL) intravenous solution 60 mg IV UD ml 08/27/18 Cholecalciferol (VIT D3) [Vitamin D3] 1,000 unit PO BID 12/01/18 Omeprazole 40 mg PO DAILY 12/01/18 Albuterol Inhaler [Ventolin Hfa] 2 puff INHALATION Q4H PRN PRN inhaler 12/20/18 magnesium oxide 400 mg (241.3 mg magnesium) tablet 400 mg PO BIDCM #180 tab 03/14/19 aspirin 81 mg tablet,delayed release 81 mg PO QODAY tab 03/28/19 atorvastatin 40 mg tablet 40 mg PO QHS #90 tab 08/22/19 carvedilol 6.25 mg tablet 6.25 mg PO BID #180 tab 09/22/19 losartan 25 mg tablet 25 mg PO DAILY #90 tab 10/03/19 levothyroxine 125 mcg tablet 125 mcg PO DAILY 10/11/19 furosemide 40 mg tablet 40 mg PO QAM #180 tab 11/08/19 potassium chloride 20 mEq tablet,extended release(part/cryst) 20 meq PO BID tab 11/08/19 Cetirizine HCl [Zyrtec] 10 mg PO QHS 12/26/19 Fluticasone/Salmeterol [Advair Hfa 230-21 Mcg Inhaler] 2 puff INHALATION BID 12/26/19 Umeclidinium [place] Inhaler [Incruse Ellipta Inhaler] 1 inh INHALATION DAILY 12/26/19 Acetaminophen [Tylenol Tablet] 650 mg PO Q4H PRN PRN tab 12/29/19
--- NOTE | 2019-12-30 13:54 | CASEMGMT ---
JANIE LYNN Discharge F/U Phone Call LACE: 11 Strata: 3 Discharge date: 12/29/2019 Call date: 12/30/2019 Call time: [id number] Admission dx: Acute appy Pt states is doing 'ok so far' since discharge yesterday. Pt states that he removed the dressings today as instructed, leaving steri-strips in place and states no redness or drainage noted at this time. Pt states no questions regarding discharge instructions/medications at this time and states 'I think it was all thoroughly explained.' Pt states has f/u phone appt with Dr. Franco on 01/06/2020. Pt states no suggestions for [facility] at this time and states 'It was all around a good experience.' Pt voices no further questions/concerns/needs at this time. [place] JANIE LYNN
== END 2019-12-29 11:37 | disposition home or self-care (01) | DRG 342 ==
LOC: ED 18:13 → SDC 19:24 → AC 19:25 → SDC 21:02 → ICU 21:02 → MS3 12-27 12:45
PROVIDERS: Hospitalist; Admitting Provider Surgery; Emergency Provider Emergency Medicine; PCP Family Medicine; Visit Provider Surgery
PROC: 0DTJ4ZZ Resection of Appendix, Percutaneous Endoscopic Approach (ICD-10-PCS; CPT 44970; principal; 2019-12-26 19:45)
DX: K35.80 Unspecified acute appendicitis (principal); C34.90 Malignant neoplasm of unspecified part of unspecified bronchus or lung; N17.9 Acute kidney failure, unspecified; J96.11 Chronic respiratory failure with hypoxia; I50.22 Chronic systolic (congestive) heart failure; K56.7 Ileus, unspecified; I42.8 Other cardiomyopathies; J44.0 Chronic obstructive pulmonary disease with (acute) lower respiratory infection; E86.0 Dehydration; I25.10 Atherosclerotic heart disease of native coronary artery without angina pectoris; E03.9 Hypothyroidism, unspecified; L40.50 Arthropathic psoriasis, unspecified; K21.9 Gastro-esophageal reflux disease without esophagitis; D63.8 Anemia in other chronic diseases classified elsewhere; K57.30 Diverticulosis of large intestine without perforation or abscess without bleeding; E78.5 Hyperlipidemia, unspecified; I73.9 Peripheral vascular disease, unspecified; Z95.810 Presence of automatic (implantable) cardiac defibrillator; Z87.891 Personal history of nicotine dependence; Z99.81 Dependence on supplemental oxygen; Z79.01 Long term (current) use of 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; Z79.51 Long term (current) use of inhaled steroids; Z79.890 Hormone replacement therapy; Z79.899 Other long term (current) drug therapy; Z82.3 Family history of stroke; Z83.3 Family history of diabetes mellitus
CPT/HCPCS: 36415; 74176; 80048; 81001; 85025; 88304; 94640; 99251; 99282; J7030; C1760; G0463; J2405

== ENCOUNTER 2019-12-29 06:21 | Outpatient (RCR) | payer SELFPAY ==
[2019-10-11 07:33] VITALS: BMI 24.0
[2019-12-26 21:11] VITALS: BMI 24.9
== END 2020-01-15 23:59 ==
LOC: PR 06:21
PROVIDERS: Family Provider Family Medicine; PCP Family Medicine; Referring Provider Internal Medicine Critical Care Medicine; Visit Provider Internal Medicine Critical Care Medicine
DX: Z00.00 Encounter for general adult medical examination without abnormal findings (principal)

== ENCOUNTER → 2020-01-17 08:02 | Outpatient (CLI) | payer MEDICARE, OTHER, SELFPAY ==
[2020-01-06 12:54] VITALS: BMI 24.9
[2020-01-17] VITALS (7 sets, daily range): BP systolic 102–134; BP diastolic 54–68; PULSE 58–67; RESP 16–20; TEMP 36.1–36.2; O2SAT 100; BMI 24.5
[2020-01-17] MEDS: Furosemide 20 MG/2 ML VIAL IV (11:54)
== END ==
PROVIDERS: PCP Family Medicine; Referring Provider Internal Medicine Hematology & Oncology; Visit Provider Internal Medicine Hematology & Oncology
DX: Z51.89 Encounter for other specified aftercare (principal); D64.81 Anemia due to antineoplastic chemotherapy
CPT/HCPCS: 36430; 86850; 86900; 86901; 86920; 86922; P9016; J1940

== ENCOUNTER → 2020-02-13 12:18 | Outpatient (CLI) | payer MEDICARE, OTHER, SELFPAY ==
--- NOTE | 2020-02-13 | ABS_PTH ---
PATIENT: JIGNESH LOPEZ LOC: [facility] U#:[id number] AGE/SX: 74/M ROOM: RE02/13/[address]: Dr. Long Franco MD : 1950 BED: DIS: SPEC #: [id number] RECD: 02/13/20 12:27 STATUS: JOSÉ JESUS #: [id number] KATHE: 02/13/20 00:[address]: Long Franco DEPT: SURGICAL PATHOLOGY RECD BY: Harshil Mcdonald ENTERED: 02/13/20 12:27 SP TYPE: Abscess OTHR DR: Dr. Joseluis Foote III, MD Tissues: Abdomen, NOS Procedures: Surgery Specimen Level III HEADER OPERATION: Incision and drainage of right lower abdominal abscess PRE-OP DIAGNOSIS: Abdominal abscess TISSUE SUBMITTED: Right lower abdominal abscess MICROSCOPIC DIAGNOSIS Right abdominal abscess: Fragments of keratin debris with acute inflammation. See comment. NOE:beni 02/14/20 COMMENT The findings may represent inflamed epidermal inclusion cyst. Case has been reviewed in consultation with Dr. Mcgowan who concurs with the above diagnosis. IDC:AM MICROSCOPIC DESCRIPTION Slides are reviewed. GROSS DESCRIPTION Received in fixative is one container labeled with the patient's name and designated abdominal abscess. The specimen consists of two pieces of soft tissue measuring in aggregate 1.5 x 0.5 x 0.3 cm. The entire specimen is submitted in one cassette. / SJ:beni 02/13/20 TC:5 CPT: 24159
[2020-02-13 09:01] VITALS: BMI 25.0
== END ==
PROVIDERS: PCP Family Medicine; Referring Provider Surgery; Visit Provider Surgery
DX: L02.211 Cutaneous abscess of abdominal wall (principal)
CPT/HCPCS: 88304

== ENCOUNTER 2020-02-14 06:00 | Outpatient (RCR) | payer SELFPAY ==
[2020-01-06 12:54] VITALS: BMI 24.9
[2020-01-17 08:28] VITALS: BMI 24.5
== END 2020-02-14 23:59 ==
LOC: PR 06:00
PROVIDERS: Family Provider Family Medicine; PCP Family Medicine; Referring Provider Internal Medicine Critical Care Medicine; Visit Provider Internal Medicine Critical Care Medicine
DX: Z00.00 Encounter for general adult medical examination without abnormal findings (principal)

== ENCOUNTER 2020-03-15 06:00 | Outpatient (RCR) | payer SELFPAY ==
[2020-02-13 09:01] VITALS: BMI 25.0
== END 2020-03-16 23:59 ==
LOC: PR 06:00
PROVIDERS: Family Provider Family Medicine; PCP Family Medicine; Referring Provider Internal Medicine Critical Care Medicine; Visit Provider Internal Medicine Critical Care Medicine
DX: Z00.00 Encounter for general adult medical examination without abnormal findings (principal)

== ENCOUNTER 2020-04-12 06:00 | Outpatient (RCR) | payer SELFPAY ==
[2020-02-13 09:01] VITALS: BMI 25.0
== END 2020-04-16 23:59 ==
LOC: PR 06:00
PROVIDERS: Family Provider Family Medicine; PCP Family Medicine; Referring Provider Internal Medicine Critical Care Medicine; Visit Provider Internal Medicine Critical Care Medicine
DX: Z00.00 Encounter for general adult medical examination without abnormal findings (principal)

== ENCOUNTER → 2020-04-20 05:52 | Outpatient (CLI) | payer MEDICARE, OTHER, SELFPAY ==
[2020-04-12 12:19] VITALS: BMI 25.2
[2020-04-20 07:49] LABS: AST(SGOT) 37 U/L (15-37); Alanine Aminotransfer ALT/SGPT 33 U/L (16-61); Albumin, Serum 3.8 g/dL (3.2-5.0); Alkaline Phosphatase 59 U/L (45-117); Bilirubin, Direct 0.21 mg/dL (0.00-0.30); Cholesterol 124 mg/dL (200); Globulin 3.8 g/dL (2.2-4.2); High Density Lipoprotein 60 mg/dL; Protein, Total 7.6 g/dL (6.4-8.2); Triglycerides 135 mg/dL; Very Low Density Lipoprotein 27 mg/dL (5-40)
== END ==
PROVIDERS: PCP Family Medicine; Referring Provider Internal Medicine Cardiovascular Disease; Visit Provider Internal Medicine Cardiovascular Disease
DX: E78.5 Hyperlipidemia, unspecified (principal); I25.10 Atherosclerotic heart disease of native coronary artery without angina pectoris
CPT/HCPCS: 36415; 80061; 80076

== ENCOUNTER → 2020-04-25 11:28 | Outpatient (CLI) | payer MEDICARE, OTHER, SELFPAY ==
[2020-04-12 12:19] VITALS: BMI 25.2
[2020-04-25] VITALS (8 sets, daily range): BP systolic 99–151; BP diastolic 46–78; PULSE 59–65; RESP 16–18; TEMP 36.2–36.4; O2SAT 100; BMI 24.0
[2020-04-25] MEDS: Furosemide 20 MG/2 ML VIAL IV (14:30)
== END ==
PROVIDERS: PCP Family Medicine; Referring Provider Internal Medicine Hematology & Oncology; Visit Provider Internal Medicine Hematology & Oncology
DX: Z51.89 Encounter for other specified aftercare (principal); D64.81 Anemia due to antineoplastic chemotherapy
CPT/HCPCS: 36430; 86850; 86900; 86901; 86920; 86922; J7040; P9016; A4216; J1940

== ENCOUNTER 2020-05-15 06:00 | Outpatient (RCR) | payer SELFPAY ==
[2020-04-12 12:19] VITALS: BMI 25.2
== END 2020-05-16 23:59 ==
LOC: PR 06:00
PROVIDERS: Family Provider Family Medicine; PCP Family Medicine; Referring Provider Internal Medicine Critical Care Medicine; Visit Provider Internal Medicine Critical Care Medicine
DX: Z00.00 Encounter for general adult medical examination without abnormal findings (principal)

== ENCOUNTER 2020-05-31 06:00 | Outpatient (RCR) | payer SELFPAY ==
[2020-04-26 07:49] VITALS: BMI 24.0
== END 2020-06-16 23:59 ==
LOC: PR 06:00
PROVIDERS: Family Provider Family Medicine; PCP Family Medicine; Referring Provider Internal Medicine Critical Care Medicine; Visit Provider Internal Medicine Critical Care Medicine
DX: Z00.00 Encounter for general adult medical examination without abnormal findings (principal)

== ENCOUNTER 2020-07-10 06:00 | Outpatient (RCR) | payer SELFPAY ==
[2020-04-26 07:49] VITALS: BMI 24.0
== END 2020-07-16 23:59 ==
LOC: PR 06:00
PROVIDERS: Family Provider Family Medicine; PCP Family Medicine; Referring Provider Internal Medicine Critical Care Medicine; Visit Provider Internal Medicine Critical Care Medicine
DX: Z00.00 Encounter for general adult medical examination without abnormal findings (principal)

== ENCOUNTER → 2020-07-11 11:53 | Outpatient (CLI) | payer MEDICARE, OTHER, SELFPAY ==
[2020-04-26 07:49] VITALS: BMI 24.0
[2020-07-11 12:09] VITALS: BP 139/54; PULSE 65; RESP 18; TEMP 36.4; BMI 24.1
[2020-07-11] MEDS: 0.9% NaCl Peripheral Flush Adult/Peds IV (12:23)
[2020-07-11 12:34] VITALS: BP 139/54; PULSE 65; RESP 18; TEMP 36.4
[2020-07-11 12:49] VITALS: BP 112/90; PULSE 66; RESP 20; TEMP 36.3; O2SAT 100
[2020-07-11 13:49] VITALS: BP 97/48; PULSE 59; RESP 18; TEMP 36.2; O2SAT 100
[2020-07-11 15:01] VITALS: BP 123/68; PULSE 63; RESP 16; TEMP 36.4; O2SAT 10
[2020-07-11] MEDS: Furosemide 20 MG/2 ML VIAL IV (15:03)
== END ==
PROVIDERS: PCP Family Medicine; Referring Provider Internal Medicine Hematology & Oncology; Visit Provider Internal Medicine Hematology & Oncology
DX: D64.81 Anemia due to antineoplastic chemotherapy (principal)
CPT/HCPCS: 36430; 86850; 86900; 86901; 86920; 86922; J7040; P9016; A4216; J1940

== ENCOUNTER 2020-08-16 08:00 | Outpatient (RCR) | payer SELFPAY ==
[2020-07-11 12:09] VITALS: BMI 24.1
== END 2020-08-16 23:59 ==
LOC: PR 08:00
PROVIDERS: Family Provider Family Medicine; PCP Family Medicine; Referring Provider Internal Medicine Critical Care Medicine; Visit Provider Internal Medicine Critical Care Medicine
DX: Z00.00 Encounter for general adult medical examination without abnormal findings (principal)

== ENCOUNTER 2020-09-13 08:00 | Outpatient (RCR) | payer SELFPAY ==
[2020-04-26 07:49] VITALS: BMI 24.0
[2020-08-14 08:40] VITALS: BMI 25.0
== END 2020-09-16 23:59 ==
LOC: PR 08:00
PROVIDERS: PCP Family Medicine; Visit Provider Internal Medicine Critical Care Medicine
DX: Z00.00 Encounter for general adult medical examination without abnormal findings (principal)

== ENCOUNTER 2020-10-11 08:00 | Outpatient (RCR) | payer SELFPAY ==
[2020-08-14 08:40] VITALS: BMI 25.0
== END 2020-10-14 23:59 ==
LOC: PR 08:00
PROVIDERS: PCP Family Medicine; Visit Provider Internal Medicine Critical Care Medicine
DX: Z00.00 Encounter for general adult medical examination without abnormal findings (principal)

== ENCOUNTER → 2020-10-16 08:46 | Outpatient (CLI) | payer MEDICARE, OTHER, SELFPAY ==
[2020-10-15 09:57] VITALS: BMI 24.7
[2020-10-16 10:25] LABS: AST(SGOT) 37 U/L (15-37); Alanine Aminotransfer ALT/SGPT 36 U/L (16-61); Albumin, Serum 3.5 g/dL (3.2-5.0); Alkaline Phosphatase 47 U/L (45-117); Bilirubin, Direct 0.16 mg/dL (0.00-0.30); Globulin 3.6 g/dL (2.2-4.2); Protein, Total 7.1 g/dL (6.4-8.2)
== END ==
PROVIDERS: Internal Medicine Cardiovascular Disease; PCP Family Medicine; Referring Provider Physician Assistant Medical; Visit Provider Physician Assistant Medical
DX: E78.00 Pure hypercholesterolemia, unspecified (principal); E78.5 Hyperlipidemia, unspecified; C34.12 Malignant neoplasm of upper lobe, left bronchus or lung
CPT/HCPCS: 36415; 78815; 80076; A9552

== ENCOUNTER → 2020-10-16 15:47 | Outpatient (CLI) | payer MEDICARE, OTHER, SELFPAY ==
[2020-08-14 08:40] VITALS: BMI 25.0
[2020-10-15 09:57] VITALS: BMI 24.7
--- NOTE | 2020-10-16 16:30 | PET_ITS ---
EXAMINATION: FDG PET/CT INDICATIONS: A 69-year-old male with history of carcinoma of the lung presenting for restaging examination. COMPARISON EXAMINATION: FDG PET study dated 06/28/18 INDEX LESION SIZE SUV INTERPRETATION NEW: left anterior perineum soft tissue nodule 21.4-mm (frame 17) 4.4 Warrants further investigation with rigorous clinical examination secondary to the quantitative degree of uptake TECHNIQUE: Following the intravenous administration of 14.4 mCi of F-18 deoxyglucose via the right antecubital fossa, multiplanar image acquisitions of the neck, chest, abdomen and pelvis to level of mid thigh, obtained at one hour post radiopharmaceutical administration contemporaneously interpreted with the current CT of the neck, chest, abdomen and pelvis to level of mid thigh, dated 10/16/20 via coregistration and previous FDG PET study dated 06/28/18 reveal: SERUM GLUCOSE LEVEL: 94 mg/dl. HEIGHT: 65 inches. WEIGHT: 143 lbs. FINDINGS: 1. There is an increase in tracer concentration observed in the left perineum. The calculated maximal standard uptake value is 4.4. The maximal axial diameter of the metabolic, morphologic abnormality on review of CT of the pelvis dated 10/16/20 is 21.4-mm (AP). 2. Normal physiologic distribution of the radiopharmaceutical is apparent in the hepatic (2.4) and splenic parenchyma, both renal units, bladder and visualized intestinal tract. The visualized portion of the cerebral cortex demonstrate symmetric and preserved glucose metabolism. Diffuse radiopharmaceutical concentration is noted in all four quadrants of the abdomen and pelvis, most accentuated in the left lower anterior pelvic mesentery in the region of the small intestinal tract. Prominent radiopharmaceutical concentration is observed in the left ventricular myocardium associated with the [place]. Pertinent CT findings are as follows: CHEST: There is atherosclerotic calcification defined in the thoracic aorta without evidence of dilatation-aneurysm formation. Coronary arterial calcification is observed. Ventricular pacemaker placement is defined. Scattered bilateral axillary soft tissue densities with fatty hilus are non-glucose avid. A parenchymal density visualized in the left upper lung demonstrates no evidence of increased tracer uptake. ABDOMEN AND PELVIS: There is atherosclerotic calcification defined in the abdominal aorta without evidence of dilatation-aneurysm formation. Pelvic arterial calcification is observed. Colonic diverticulosis is noted without evidence of diverticulitis. Calcification is defined in the bilateral kidneys. SKELETAL: Degenerative changes are noted in the cervical, thoracic and lumbar spine without evidence of increased radiopharmaceutical concentration. There are no sclerotic, mixed sclerotic-lytic and/or primarily lytic changes noted on review of the appendicular, axial skeletal structures. PET/PET/CT Tumor Base -Thigh Subs IMPRESSION: 1. Increased FDG concentration newly identified in the left anterior perineum may be further investigated with clinical examination secondary to the quantitative degree of uptake. 2. There is interim resolution of the previously identified left upper lobe and right posterior ilium hypermetabolic foci. 3. Overall, compared to the prior FDG PET study dated 06/28/18, there is interim resolution of the previously identified left upper lung-left upper lobe, as well as right posterior ilium hypermetabolic foci. Newly identified increased uptake noted in the left anterior perineum warrants clinical examination as defined above. Electronic Signature Iker Montalvo D.O. Accurate Quantification of SUVs for this report are calculated using the exclusive eTutor? Technology.??Exclusive [place]. Patent Accuquan? Technology (U.S. Patent No. [id number]). Electronically Signed: Iker Montalvo DO at 21:38 EST Tel , Service support ,
== END ==
PROVIDERS: PCP Family Medicine; Referring Provider Internal Medicine Hematology & Oncology; Visit Provider Internal Medicine Hematology & Oncology
DX: C34.12 Malignant neoplasm of upper lobe, left bronchus or lung (principal)
CPT/HCPCS: 78815; A9552

== ENCOUNTER 2020-11-08 14:27 | Outpatient (RCR) | payer MEDICARE, OTHER, SELFPAY ==
[2020-10-15 09:57] VITALS: BMI 24.7
[2020-11-08 09:18] VITALS: BMI 24.7
[2020-11-08 14:29] VITALS: TEMP 36.1; BMI 24.7
--- NOTE | 2020-11-08 16:47 | PCM.WC.HP ---
(1) Hidradenitis Status: Acute Code(s): L73.2 - Hidradenitis suppurativa (2) CHF (congestive heart failure), NYHA class I Status: Chronic Code(s): I50.9 - Heart failure, unspecified (3) Cancer of upper lobe of left lung Status: Chronic Code(s): C34.12 - Malignant neoplasm of upper lobe, left bronchus or lung Comment: Squamous cell carcinoma (4) Chronic respiratory failure with hypoxia Status: Chronic Code(s): J96.11 - Chronic respiratory failure with hypoxia (5) Chronic systolic (congestive) heart failure Status: Chronic Code(s): I50.22 - Chronic systolic (congestive) heart failure (6) Coronary artery disease Status: Chronic Code(s): I25.10 - Atherosclerotic heart disease of [place] coronary artery without angina pectoris (7) Debility Status: Chronic Code(s): R53.81 - Other malaise (8) Hypokalemia Status: Chronic Code(s): E87.6 - Hypokalemia (9) Implantable cardioverter-defibrillator (ICD) in situ Status: Chronic Code(s): Z95.810 - Presence of automatic (implantable) cardiac defibrillator Comment: [employer] EL ICD, model D150; Seriao # [id number] (10) Lung cancer Status: Chronic Qualifiers: Code(s): C34.90 - Malignant neoplasm of unspecified part of unspecified bronchus or lung (11) PVD (peripheral vascular disease) Status: Chronic Code(s): I73.9 - Peripheral vascular disease, unspecified (12) Stage 3 severe COPD by GOLD classification Status: Chronic Code(s): J44.9 - Chronic obstructive pulmonary disease, unspecified Comment: FEV1 31 History of Present Illness Date of Service: 11/08/20 Chief Complaint: Left groin ulcer status post I&D from Dr. Beach of hidradenitis left groin on 10/29/2020 History of Wound: This is a 69-year-old white male with a complicated medical history as listed above who presents to the wound healing center today for complaint of nonhealing postsurgical wound where he had a incision and drainage of hidradenitis to the left groin done on 10/29/[address] Beach. Since then the patient has been applying triamcinolone cream and covering with gauze. 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 With regards to wound care, he denies any significant drainage or localized signs of infection at this time. Per review of surgeons note, patient was also referred to be evaluated whether or not HBO is an option. The patient denies any other acute concerns. Past medical, family, and social history reviewed and not pertinent to the current visit and all other systems reviewed and negative with exception of those listed above. Past Medical History Past Medical History: Chronic Problems (Last Reviewed 11/08/20 @ 09:28 by Cheryl Schaeffer LINE OUT MAN, LINE OUT MAN-C) Chronic respiratory failure with hypoxia (Chronic) Long-term use of high-risk medication (Chronic) Diverticula of colon (Chronic) History of left heart catheterization (Chronic) Mild, nonobstructive CAD per [facility] 08/29/2016 @ [facility] per Dr. 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) Lung cancer (Chronic) Debility (Chronic) Chronic systolic (congestive) heart failure (Chronic) Coronary artery disease (Chronic) Hypothyroidism (Chronic) GERD (gastroesophageal reflux disease) (Chronic) Pneumothorax after biopsy (Chronic) Implantable cardioverter-defibrillator (ICD) in situ (Chronic 12/27/16) [employer] Dynogen EL ICD, model D150; Seriao # [id number] Secondary pulmonary arterial hypertension (Chronic) RVSP 47mm hg per echo 08/28/2016 (unable to estimate per Echo 12/17/2016) Nonischemic cardiomyopathy (Chronic) EF 15-20% per heart cath 08/29/2016; 20-35% per echo 12/17/2016 Severe left ventricular systolic dysfunction (Chronic) EF 15-20% per heart cath 08/29/2016; 20-35% per echo 12/17/2016 Atherosclerotic heart disease of [place] coronary artery without angina pectoris (Chronic) Mild, nonobstructive CAD per [facility] 08/29/2016 @ [facility] per Dr. Cantrell PVD (peripheral vascular disease) (Chronic) Stage 3 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) FEV1 31 Hyperlipidemia (Chronic) Psoriatic arthritis (Chronic) CHF (congestive heart failure), NYHA class I (Chronic) Surgical History: no surgical history Allergies/Adverse Reactions: Allergies No Known Allergies Allergy (Verified 11/08/20 09:18) Home Medications: Ambulatory Orders Medication Instructions Recorded Hydroxychloroquine [Plaquenil] 200 mg PO BIDCM 08/27/16 Multivitamin [Multiple Vitamins] 1 ea PO DAILY 08/27/16 atezolizumab 1,200 mg/20 mL (60 60 mg IV UD ml 08/27/18 mg/mL) intravenous solution Cholecalciferol (VIT D3) [Vitamin 1,000 unit PO BID 12/01/18 D3] Omeprazole 40 mg PO DAILY 12/01/18 Albuterol Inhaler [Ventolin Hfa] 2 puff INHALATION Q4H PRN PRN 12/20/18 inhaler aspirin 81 mg tablet,delayed 81 mg PO QODAY tab 03/28/19 release levothyroxine 125 mcg tablet 125 mcg PO DAILY 10/11/19 potassium chloride 20 mEq 20 meq PO BID #180 tab 04/09/20 tablet,extended release(part/cryst) atorvastatin 40 mg tablet 40 mg PO QHS #90 tab 08/20/20 carvedilol 6.25 mg tablet 6.25 mg PO BID #180 tab 09/03/20 losartan 25 mg tablet See Rx Instructions .ROUTE 10/01/20 .COMPLEX #90 tab sodium chloride 1 gram tablet 1,000 mg PO BID tab 10/15/20 furosemide 40 mg tablet 40 mg PO QAM #90 tab 10/22/20 doxycycline hyclate 100 mg capsule 100 mg PO BID #20 cap 11/08/20 fluticasone propionate 230 2 puff INHALATION BID #12 g 11/08/20 mcg-salmeterol 21 mcg/actuation HFA inhaler prednisone 10 mg tablet 10 mg PO QDAY #30 tablet 11/08/20 umeclidinium 62.5 mcg/actuation 1 inh INHALATION DAILY #30 ea 11/08/20 blister powder for inhalation - Family History Maternal Family History: Family History (Last Reviewed 11/08/20 @ 09:28 by Cheryl Schaeffer LINE OUT MAN, LINE OUT MAN-C) Mother Heart disease Brother CVA (cerebral vascular accident) Father Cancer Grandmother Diabetes - - No COPD Paternal Family History: Family History (Last Reviewed 11/08/20 @ 09:28 by Cheryl Schaeffer LINE OUT MAN, LINE OUT MAN-C) Mother Heart disease Brother CVA (cerebral vascular accident) Father Cancer Grandmother Diabetes - - No COPD Smoking Status: Former smoker Review of Systems Constitutional: Denies: Chills, Fever, Weight Change Eyes: Denies: Pain, Vision Change HEENT: Denies: Difficulty Hearing, Difficulty Swallowing, Sinus Congestion Cardiovascular: Denies: Chest Pain, Palpitations Respiratory: Denies: Cough, Shortness of Breath Gastrointestinal: Denies: Diarrhea, Nausea, Vomiting Genitourinary: Denies: Dysuria, Hematuria Skin: Reports: Wounds - See HPI Endocrine: Denies: Heat/ Cold Intolerance, Polydipsia, Polyuria Hematologic/ Lymphatic: Denies: Easy Bruising, Easy Bleeding - Physical Exam Vital Signs Temp 97.0 F L 11/08/20 14:29 General: Alert, Oriented x3, Cooperative, No apparent distress HEENT: Atraumatic Oral: Moist Mucosa Lungs: Diminished Cardiovascular: Regular rate Abdomen: Soft, Non Tender Extremities: No clubbing, No cyanosis, No edema Skin: Ulcer/ Wound - See nursing documentation, slough and devitalized tissue present to left groin postop wound, no signs of obvious infection at this time Wound Measurements and Assessment WC - Nurse 1 - General Ulcer Measurement Start: 11/08/20 14:29 Freq: Status: Active Protocol: Activity Type Activity Date Activity User E-Sign Co-Sign Detail Recorded Client Recorded Date Recorded By Document 11/08/20 14:29 LUDA [id number] 11/08/20 14:39 LUDA 11/08/20 14:29 Wound Center Nurse 1 [Ulcer Assessment] #1 Left Groin -Current Size (cm) - Length 2.9 -Current Size (cm) - Width 0.5 -Current Size (cm) - Depth 0.1 -Total Square Cm 1.45 -Exudate Amt Small -Exudate Type Serosanguineous -Wound Margin Distinct, Outline Attached -Granulation Amt Large (67-100%) -Granulation Quality Red -Necrosis Amt None Present (0 %) -Texture (Shawna-wound Skin Appearance) Assessed, Scarring -Moisture (Shawna-wound Skin Appearance No Abnormality, ) Assessed -Color (Shawna-wound Skin Appearance) No Abnormality, Assessed -Temperature (Shawna-wound Skin No Abnormality Appearance) (Pt Warm) -Tenderness on Palpation (Shawna-wound No Skin Appearance) -Foul Odor after Cleansing No -Anesthetic Used 4% Lidocaine Solution - Nurse 2 - General Ulcer CM Notes Start: 11/08/20 14:29 Freq: Status: Active Protocol: Activity Type Activity Date Activity User E-Sign Co-Sign Detail Recorded Client Recorded Date Recorded By Document 11/08/20 15:01 MW [id number] 11/08/20 15:06 MW 11/08/20 15:01 Wound Center Nurse 2 [Procedure/Treatment] -Time 15:02 -Correct Patient Yes -Correct Side, Site, Position Yes -Correct Procedure Yes -Procedure Performed Yes -Type of Procedure Debridement -Clinical Debridement Subcutaneous -Tissue Removed Subcutaneous -Post Debridement (cm) - Length 2.9 -Post Debridement (cm) - Width 1.5 -Post Debridement (cm) - Depth 0.1 -Total Square (Post) (cm) 4.35 -Area of Debridement (cm) - Length 2.9 -Area of Debridement (cm) - Width 1.5 -Total Square (Area) (cm) 4.35 -Tunneling No -Undermining/Tunneling No -Circular Undermining No -Wound/Ulcer Outcome Not Healed -Ulcer Cleansing Rinsed/ Irrigated with Saline -Foul Odor after Cleansing No -Bioengineered Tissue No -Bleeding Controlled with Pressure -Offloading No -Treatment Response Procedure Tolerated Well -Debridement - Subq, 1st 20sq cm Yes [See Physician Procedure note for Specifics] Pain Scale: 0-10 Numeric [Pain] -Is Patient Pain Free? Yes - Nurse 3 - General Ulcer D/C NN Start: 11/08/20 14:29 Freq: Status: Active Protocol: Activity Type Activity Date Activity User E-Sign Co-Sign Detail Recorded Client Recorded Date Recorded By Document 11/08/20 15:17 KR [id number] 11/08/20 15:17 KR 11/08/20 15:17 Wound Care Nurse 3 [Wound Dressing] #1 Left Groin -Ulcer Cleansing Rinsed/ Irrigated with Saline -Foul Odor after Cleansing No -Primary Dressing Applied Silvercel -Primary Dressing Covered/Secured Dry Gauze with -Silvercel 1 Pain Scale: 0-10 Numeric [Pain] -Is Patient Pain Free? Yes - Visit Discharge [Visit Discharge Information] -Discharge Condition Stable -Ambulatory Status Ambulatory,Cane -Transportation Private Auto Neurological: Neuro grossly intact Psych/Mental Status: Appropriate, Alert and oriented to time, place, person, mood and affect Debridement Note Post-Debridement Measurements/Treatment WC - Nurse 2 - General Ulcer CM Notes Start: 11/08/20 14:29 Freq: Status: Active Protocol: Activity Type Activity Date Activity User E-Sign Co-Sign Detail Recorded Client Recorded Date Recorded By Document 11/08/20 15:01 MW [id number] 11/08/20 15:06 MW 11/08/20 15:01 Wound Center Nurse 2 #1 Left Groin -Time 15:02 -Correct Patient Yes -Correct Side, Site, Position Yes -Correct Procedure Yes -Procedure Performed Yes -Type of Procedure Debridement -Clinical Debridement Subcutaneous -Tissue Removed Subcutaneous -Post Debridement (cm) - Length 2.9 -Post Debridement (cm) - Width 1.5 -Post Debridement (cm) - Depth 0.1 -Total Square (Post) (cm) 4.35 -Area of Debridement (cm) - Length 2.9 -Area of Debridement (cm) - Width 1.5 -Total Square (Area) (cm) 4.35 -Tunneling No -Undermining/Tunneling No -Circular Undermining No -Wound/Ulcer Outcome Not Healed -Ulcer Cleansing Rinsed/ Irrigated with Saline -Foul Odor after Cleansing No -Bioengineered Tissue No -Bleeding Controlled with Pressure -Offloading No -Treatment Response Procedure Tolerated Well -Debridement - Subq, 1st 20sq cm Yes Pain Scale: 0-10 Numeric Is Patient Pain Free? Yes - Nurse 3 - General Ulcer D/C NN Start: 11/08/20 14:29 Freq: Status: Active Protocol: Activity Type Activity Date Activity User E-Sign Co-Sign Detail Recorded Client Recorded Date Recorded By Document 11/08/20 15:17 KR [id number] 11/08/20 15:17 KR 11/08/20 15:17 Wound Care Nurse 3 #1 Left Groin -Ulcer Cleansing Rinsed/ Irrigated with Saline -Foul Odor after Cleansing No -Primary Dressing Applied Silvercel -Primary Dressing Covered/Secured with Dry Gauze -Silvercel 1 Pain Scale: 0-10 Numeric Is Patient Pain Free? Yes WC - Visit Discharge Discharge Condition Stable Ambulatory Status Ambulatory,Cane Transportation Private Auto Wound debrided: Left groin postop wound Laterality: Left Type of Debridement: Excisional debridement Anesthesia Used: 5% Lidocaine Gel Depth: in the subcutaneous layer Percentage of wound debrided: 100 Instrument Used: 3mm curette Tissue Removed: Devitalized tissue Severity: Fat Layer Exposed Amount of bleeding with debridement: Mild Bleeding Controlled with: Pressure Patient tolerated procedure well Assessment/Plan Active Problems (Last Reviewed 11/08/20 @ 09:28 by Cheryl Schaeffer LINE OUT MAN, LINE OUT MAN-C) Hidradenitis (Acute) Chronic respiratory failure with hypoxia (Chronic) Cancer of upper lobe of left lung (Chronic) Squamous cell carcinoma Hypokalemia (Chronic) Lung cancer (Chronic) Debility (Chronic) Chronic systolic (congestive) heart failure (Chronic) Coronary artery disease (Chronic) Implantable cardioverter-defibrillator (ICD) in situ (Chronic 12/27/16) [employer] Dynogen EL ICD, model D150; Seriao # [id number] PVD (peripheral vascular disease) (Chronic) Stage 3 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) FEV1 31 CHF (congestive heart failure), NYHA class I (Chronic) Assessment: See above diagnoses Plan: The patient was seen and examined at the wound center today and was updated on the plan of care. A subcutaneous debridement was performed today. The patient tolerated the procedure well. The patients wound care will consist of: Application of silver cell moistened change daily. Wound cultures were collected. Due to insurance criteria for HBO coverage, patient is not a candidate for HBO at this time. Patient educated on the importance of diet on wound healing and instructed to increase protein and vitamin C intake. Patient verbalized understanding. Patient will follow up at wound healing center in one week or sooner if needed. This note was generated with [employer] dictation software. It may contain incorrect words, spelling, and punctuation that were not noted in checking the note before signing. 35 minutes was spent today reviewing patient's medical records, recent labs, physically examining patient, and educating patient on plan of care. Office Visits / Consults: [id number] OV L4 Est [id number]: [id number] Ana subq tissue 20 sq cm/<
== END 2020-11-14 23:59 ==
LOC: WC 14:27
PROVIDERS: PCP Family Medicine; Visit Provider Nurse Practitioner Family
DX: T81.89XA Other complications of procedures, not elsewhere classified, initial encounter (principal); Y83.8 Other surgical procedures as the cause of abnormal reaction of the patient, or of later complication, without mention of misadventure at the time of the procedure; L73.2 Hidradenitis suppurativa; C34.12 Malignant neoplasm of upper lobe, left bronchus or lung; J44.1 Chronic obstructive pulmonary disease with (acute) exacerbation; J96.11 Chronic respiratory failure with hypoxia; I50.22 Chronic systolic (congestive) heart failure; I25.10 Atherosclerotic heart disease of native coronary artery without angina pectoris; E87.6 Hypokalemia; I73.9 Peripheral vascular disease, unspecified; Z95.810 Presence of automatic (implantable) cardiac defibrillator; Z87.891 Personal history of nicotine dependence; E03.9 Hypothyroidism, unspecified; I27.21 Secondary pulmonary arterial hypertension; I11.0 Hypertensive heart disease with heart failure; E78.5 Hyperlipidemia, unspecified; L40.50 Arthropathic psoriasis, unspecified
CPT/HCPCS: 11042; 87070; 87075; 87077; 87186; 87205; 99213; G0463

== ENCOUNTER 2020-11-13 08:00 | Outpatient (RCR) | payer SELFPAY ==
[2020-08-14 08:40] VITALS: BMI 25.0
[2020-10-15 09:57] VITALS: BMI 24.7
== END 2020-11-14 23:59 ==
LOC: PR 08:00
PROVIDERS: PCP Family Medicine; Visit Provider Internal Medicine Critical Care Medicine
DX: Z00.00 Encounter for general adult medical examination without abnormal findings (principal)

== ENCOUNTER 2020-12-13 08:00 | Outpatient (RCR) | payer SELFPAY | END 2020-12-14 23:59 | LOC: PR 08:00 | PROVIDERS: PCP Family Medicine; Visit Provider Internal Medicine Critical Care Medicine | DX: Z00.00 Encounter for general adult medical examination without abnormal findings (principal) ==

== ENCOUNTER 2020-12-13 13:30 | Outpatient (RCR) | payer MEDICARE, OTHER, SELFPAY ==
[2020-11-15 00:53] VITALS: TEMP 36.1
[2020-11-15 15:32] VITALS: BP 158/56; PULSE 91; RESP 18; TEMP 36.4; BMI 24.7
--- NOTE | 2020-11-16 09:22 | PCM.WC.PN ---
(1) Postprocedural non-healing wound Status: Acute Code(s): T81.89XA - Other complications of procedures, not elsewhere classified, initial encounter (2) Hidradenitis Status: Acute Code(s): L73.2 - Hidradenitis suppurativa (3) CHF (congestive heart failure), NYHA class I Status: Chronic Code(s): I50.9 - Heart failure, unspecified (4) Chronic respiratory failure with hypoxia Status: Chronic Code(s): J96.11 - Chronic respiratory failure with hypoxia (5) Chronic systolic (congestive) heart failure Status: Chronic Code(s): I50.22 - Chronic systolic (congestive) heart failure (6) Coronary artery disease Status: Chronic Code(s): I25.10 - Atherosclerotic heart disease of [place] coronary artery without angina pectoris (7) Debility Status: Chronic Code(s): R53.81 - Other malaise Type of Wound Date of Service: 11/16/20 Chief Complaint: Left groin ulcer status post I&D from Dr. Beach of hidradenitis left groin on 10/29/2020 History of Wound: This is a 69-year-old white male with a complicated medical history as listed above who presents to the wound healing center today for complaint of nonhealing postsurgical wound where he had a incision and drainage of hidradenitis to the left groin done on 10/29/[address] Beach. Since then the patient has been applying triamcinolone cream and covering with gauze. 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 With regards to wound care, he denies any significant drainage or localized signs of infection at this time. Per review of surgeons note, patient was also referred to be evaluated whether or not HBO is an option. The patient denies any other acute concerns. Past medical, family, and social history reviewed and not pertinent to the current visit and all other systems reviewed and negative with exception of those listed above. Progress of Wound: Stable?site is improving in size, no signs of obvious infection at this time, No new concerns - Physical Exam Vital Signs Temp Pulse Resp BP 97.6 F L 91 18 158/56 H 11/15/20 15:32 11/15/20 15:32 11/15/20 15:32 11/15/20 15:32 General: Alert, Oriented x3, Cooperative, No apparent distress HEENT: Atraumatic Oral: Moist Mucosa Lungs: Clear to auscultation, Diminished Cardiovascular: Regular rate Abdomen: Soft Skin: Ulcer/ Wound - See nursing documentation, slough and devitalized tissue present, no signs of infection at this time Wound Measurements and Assessment - Nurse 1 - General Ulcer Measurement Start: 11/15/20 15:29 Freq: Status: Active Protocol: Activity Type Activity Date Activity User E-Sign Co-Sign Detail Recorded Client Recorded Date Recorded By Document 11/15/20 15:32 DL [id number] 11/15/20 15:37 DL 11/15/20 15:32 Wound Center Nurse 1 [Ulcer Assessment] #1 Left Groin -Current Size (cm) - Length 1.7 -Current Size (cm) - Width 1.7 -Current Size (cm) - Depth 0.2 -Total Square Cm 2.89 -Photo Taken No -Exudate Amt Small -Exudate Type Serosanguineous -Wound Margin Distinct, Outline Attached -Granulation Amt Large (67-100%) -Granulation Quality [place] -Necrosis Amt Small (1-33%) -Necrotic Tissue Type Adherent Slough -Structure Exposed N/A -Texture (Shawna-wound Skin Appearance) Scarring -Moisture (Shawna-wound Skin Appearance No Abnormality ) -Color (Shawna-wound Skin Appearance) No Abnormality -Temperature (Shawna-wound Skin No Abnormality Appearance) (Pt Warm) -Tenderness on Palpation (Shawna-wound No Skin Appearance) -Ulcer Cleansing Wound Cleanser -Foul Odor after Cleansing No -Anesthetic Used 4% Lidocaine Solution - Nurse 2 - General Ulcer CM Notes Start: 11/15/20 15:29 Freq: Status: Active Protocol: Activity Type Activity Date Activity User E-Sign Co-Sign Detail Recorded Client Recorded Date Recorded By Document 11/15/20 15:47 MW [id number] 11/15/20 15:49 MW 11/15/20 15:47 Wound Center Nurse 2 [Procedure/Treatment] -Time 15:47 -Correct Patient Yes -Correct Side, Site, Position Yes -Correct Procedure Yes -Procedure Performed Yes -Type of Procedure Debridement -Clinical Debridement Subcutaneous -Tissue Removed Subcutaneous -Post Debridement (cm) - Length 1.8 -Post Debridement (cm) - Width 1.0 -Post Debridement (cm) - Depth 0.1 -Total Square (Post) (cm) 1.80 -Area of Debridement (cm) - Length 1.8 -Area of Debridement (cm) - Width 1.0 -Total Square (Area) (cm) 1.80 -Tunneling No -Undermining/Tunneling No -Circular Undermining No -Wound/Ulcer Outcome Not Healed -Ulcer Cleansing Rinsed/ Irrigated with Saline -Foul Odor after Cleansing No -Bioengineered Tissue No -Bleeding Controlled with Pressure -Offloading No -Treatment Response Procedure Tolerated Well -Debridement - Subq, 1st 20sq cm Yes [See Physician Procedure note for Specifics] Pain Scale: 0-10 Numeric [Pain] -Is Patient Pain Free? Yes AKHIL - Nurse 3 - General Ulcer D/C NN Start: 11/15/20 15:29 Freq: Status: Active Protocol: Activity Type Activity Date Activity User E-Sign Co-Sign Detail Recorded Client Recorded Date Recorded By Document 11/15/20 15:50 PL [id number] 11/16/20 05:27 PL 11/15/20 15:50 Wound Care Nurse 3 [Wound Dressing] #1 Left Groin -Ulcer Cleansing Rinsed/ Irrigated with Saline -Foul Odor after Cleansing No -Primary Dressing Applied Silvercel -Primary Dressing Covered/Secured Dry Gauze with -Silvercel 1 Pain Scale: 0-10 Numeric [Pain] -Is Patient Pain Free? Yes Psych/Mental Status: Normal Affect Debridement Note Post-Debridement Measurements/Treatment AKHIL - Nurse 2 - General Ulcer CM Notes Start: 11/15/20 15:29 Freq: Status: Active Protocol: Activity Type Activity Date Activity User E-Sign Co-Sign Detail Recorded Client Recorded Date Recorded By Document 11/15/20 15:47 MW [id number] 11/15/20 15:49 MW 11/15/20 15:47 Wound Center Nurse 2 #1 Left Groin -Time 15:47 -Correct Patient Yes -Correct Side, Site, Position Yes -Correct Procedure Yes -Procedure Performed Yes -Type of Procedure Debridement -Clinical Debridement Subcutaneous -Tissue Removed Subcutaneous -Post Debridement (cm) - Length 1.8 -Post Debridement (cm) - Width 1.0 -Post Debridement (cm) - Depth 0.1 -Total Square (Post) (cm) 1.80 -Area of Debridement (cm) - Length 1.8 -Area of Debridement (cm) - Width 1.0 -Total Square (Area) (cm) 1.80 -Tunneling No -Undermining/Tunneling No -Circular Undermining No -Wound/Ulcer Outcome Not Healed -Ulcer Cleansing Rinsed/ Irrigated with Saline -Foul Odor after Cleansing No -Bioengineered Tissue No -Bleeding Controlled with Pressure -Offloading No -Treatment Response Procedure Tolerated Well -Debridement - Subq, 1st 20sq cm Yes Pain Scale: 0-10 Numeric Is Patient Pain Free? Yes WC - Nurse 3 - General Ulcer D/C NN Start: 11/15/20 15:29 Freq: Status: Active Protocol: Activity Type Activity Date Activity User E-Sign Co-Sign Detail Recorded Client Recorded Date Recorded By Document 11/15/20 15:50 PL [id number] 11/16/20 05:27 PL 11/15/20 15:50 Wound Care Nurse 3 #1 Left Groin -Ulcer Cleansing Rinsed/ Irrigated with Saline -Foul Odor after Cleansing No -Primary Dressing Applied Silvercel -Primary Dressing Covered/Secured with Dry Gauze -Silvercel 1 Pain Scale: 0-10 Numeric Is Patient Pain Free? Yes Wound debrided: Postop wound left groinStatus post hidradenitis incision and drainage Laterality: Left Type of Debridement: Excisional debridement Anesthesia Used: 5% Lidocaine Gel Depth: Down to and including healthy tissue, in the subcutaneous layer Percentage of wound debrided: 100 Instrument Used: 5mm curette Tissue Removed: Slough and devitalized tissue Severity: Fat Layer Exposed Amount of bleeding with debridement: Mild Bleeding Controlled with: Pressure Patient tolerated procedure well Assessment/Plan Assessment: See above diagnoses Plan: The patient was seen and examined at the wound center today and was updated on the plan of care. A subcutaneous debridement was performed today. The patient tolerated the procedure well. The patients wound care will consist of: Application of silver cell moistened change daily. Wound cultures were collected Prior and negative. Due to insurance criteria for HBO coverage, patient is not a candidate for HBO at this time. Patient educated on the importance of diet on wound healing and instructed to increase protein and vitamin C intake. Patient verbalized understanding. Patient will follow up at wound healing center in one week or sooner if needed. This note was generated with [employer] software. It may contain incorrect words, spelling, and punctuation that were not noted in checking the note before signing. [id number]: [id number] Ana subq tissue 20 sq cm/<
[2020-11-22 14:24] VITALS: BP 129/62; PULSE 79; RESP 18; TEMP 36.3; O2SAT 95; BMI 24.7
--- NOTE | 2020-11-22 21:06 | PN.PCM_ITS ---
(1) Postprocedural non-healing wound Status: Acute Code(s): T81.89XA - Other complications of procedures, not elsewhere classified, initial encounter (2) Hidradenitis Status: Acute Code(s): L73.2 - Hidradenitis suppurativa (3) CHF (congestive heart failure), NYHA class I Status: Chronic Code(s): I50.9 - Heart failure, unspecified (4) Chronic respiratory failure with hypoxia Status: Chronic Code(s): J96.11 - Chronic respiratory failure with hypoxia (5) Chronic systolic (congestive) heart failure Status: Chronic Code(s): I50.22 - Chronic systolic (congestive) heart failure (6) Coronary artery disease Status: Chronic Code(s): I25.10 - Atherosclerotic heart disease of [place] coronary artery without angina pectoris (7) Debility Status: Chronic Code(s): R53.81 - Other malaise Type of Wound Date of Service: 11/22/20 Chief Complaint: Left groin ulcer status post I&D from Dr. Beach of hidradenitis left groin on 10/29/2020 History of Wound: This is a 69-year-old white male with a complicated medical history as listed above who presents to the wound healing center today for complaint of nonhealing postsurgical wound where he had a incision and drainage of hidradenitis to the left groin done on 10/29/[address] Beach. Since then the patient has been applying triamcinolone cream and covering with gauze. 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 With regards to wound care, he denies any significant drainage or localized signs of infection at this time. Per review of surgeons note, patient was also referred to be evaluated whether or not HBO is an option. The patient denies any other acute concerns. Past medical, family, and social history reviewed and not pertinent to the current visit and all other systems reviewed and negative with exception of those listed above. Progress of Wound: Stable?site is improving in size, no signs of obvious infection at this time, No new concerns - Physical Exam Vital Signs Temp Pulse Resp BP Pulse Ox 97.4 F L 79 18 129/62 H 95 11/22/20 14:24 11/22/20 14:24 11/22/20 14:24 11/22/20 14:24 11/22/20 14:24 General: Alert, Oriented x3, Cooperative, No apparent distress HEENT: Atraumatic Oral: Moist Mucosa Cardiovascular: Regular rate Abdomen: Soft Extremities: No clubbing, No cyanosis, No edema Skin: Ulcer/ Wound - See nursing documentation, slough and devitalized tissue Present, no signs of infection at this time Neurological: Neuro grossly intact Psych/Mental Status: Normal Affect, Appropriate, Alert and oriented to time, place, person, mood and affect Debridement Note Post-Debridement Measurements/Treatment WC - Nurse 2 - General Ulcer CM Notes Start: 11/15/20 15:29 Freq: Status: Active Protocol: Activity Type Activity Date Activity User E-Sign Co-Sign Detail Recorded Client Recorded Date Recorded By Document 11/15/20 15:47 MW [id number] 11/15/20 15:49 MW Document 11/22/20 14:42 MW [id number] 11/22/20 14:44 MW 11/15/20 11/22/20 15:47 14:42 Wound Center Nurse 2 #1 Left Groin -Time 15:47 14:42 -Correct Patient Yes Yes -Correct Side, Site, Position Yes Yes -Correct Procedure Yes Yes -Procedure Performed Yes Yes -Type of Procedure Debridement Debridement -Clinical Debridement Subcutaneous Subcutaneous -Tissue Removed Subcutaneous Subcutaneous -Post Debridement (cm) - Length 1.8 1.4 -Post Debridement (cm) - Width 1.0 0.9 -Post Debridement (cm) - Depth 0.1 0.1 -Total Square (Post) (cm) 1.80 1.26 -Area of Debridement (cm) - Length 1.8 1.4 -Area of Debridement (cm) - Width 1.0 0.9 -Total Square (Area) (cm) 1.80 1.26 -Tunneling No No -Undermining/Tunneling No No -Circular Undermining No No -Wound/Ulcer Outcome Not Healed Not Healed -Ulcer Cleansing Rinsed/ Rinsed/ Irrigated with Irrigated with Saline Saline -Foul Odor after Cleansing No No -Bioengineered Tissue No No -Bleeding Controlled with Pressure Pressure -Offloading No No -Treatment Response Procedure Procedure Tolerated Well Tolerated Well -Debridement - Subq, 1st 20sq cm Yes Yes Pain Scale: 0-10 Numeric Is Patient Pain Free? Yes Yes - Nurse 3 - General Ulcer D/C NN Start: 11/15/20 15:29 Freq: Status: Active Protocol: Activity Type Activity Date Activity User E-Sign Co-Sign Detail Recorded Client Recorded Date Recorded By Document 11/15/20 15:50 PL [id number] 11/16/20 05:27 PL Document 11/22/20 14:58 MT [id number] 11/22/20 14:59 MT 11/15/20 11/22/20 15:50 14:58 Wound Care Nurse 3 #1 Left Groin -Ulcer Cleansing Rinsed/ Rinsed/ Irrigated with Irrigated with Saline Saline -Foul Odor after Cleansing No No -Negative Pressure Wound Therapy N/A -Primary Dressing Applied Silvercel Silvercel -Primary Dressing Covered/Secured with Dry Gauze Dry Gauze -Silvercel 1 1 Pain Scale: 0-10 Numeric Is Patient Pain Free? Yes WC - Visit Discharge Discharge Condition Stable Ambulatory Status Ambulatory Transportation Private Auto Medication Reconcilliation completed & No provided to patient/care provider Clinical Summary of Care Provided Yes Wound debrided: Left scrotal ulcerationPostop wound Laterality: Left Type of Debridement: Excisional debridement Anesthesia Used: 5% Lidocaine Gel Depth: in the subcutaneous layer Percentage of wound debrided: 100 Instrument Used: 5mm curette Tissue Removed: Slough and devitalized tissue Severity: Fat Layer Exposed Amount of bleeding with debridement: Mild Bleeding Controlled with: Pressure Patient tolerated procedure well Assessment/Plan Active Problems (Last Reviewed 11/08/20 @ 09:28 by Cheryl Schaeffer [employer], [employer]-C) Hidradenitis (Acute) Postprocedural non-healing wound (Acute) Chronic respiratory failure with hypoxia (Chronic) Debility (Chronic) Chronic systolic (congestive) heart failure (Chronic) Coronary artery disease (Chronic) CHF (congestive heart failure), NYHA class I (Chronic) Assessment: See above diagnoses Plan: The patient was seen and examined at the wound center today and was updated on the plan of care. A subcutaneous debridement was performed today. The patient tolerated the procedure well. The patients wound care will consist of: Application of aquacell moistened change daily. Wound cultures were collected Prior and negative. Due to insurance criteria for HBO coverage, patient is not a candidate for HBO at this time. Patient educated on the importance of diet on wound healing and instructed to increase protein and vitamin C intake. Patient verbalized understanding. Patient will follow up at wound healing center in one week or sooner if needed. This note was generated with [employer] dictation software. It may contain incorrect words, spelling, and punctuation that were not noted in checking the note before signing. 111xxx-[id number]: [id number] Ana subq tissue 20 sq cm/<
[2020-11-29 14:15] VITALS: BP 124/94; PULSE 81; RESP 18; TEMP 36.4; BMI 24.7
--- NOTE | 2020-11-29 16:50 | PCM.WC.PN ---
(1) Postprocedural non-healing wound Status: Acute Code(s): T81.89XA - Other complications of procedures, not elsewhere classified, initial encounter (2) Hidradenitis Status: Acute Code(s): L73.2 - Hidradenitis suppurativa (3) CHF (congestive heart failure), NYHA class I Status: Chronic Code(s): I50.9 - Heart failure, unspecified (4) Chronic respiratory failure with hypoxia Status: Chronic Code(s): J96.11 - Chronic respiratory failure with hypoxia (5) Chronic systolic (congestive) heart failure Status: Chronic Code(s): I50.22 - Chronic systolic (congestive) heart failure (6) Coronary artery disease Status: Chronic Code(s): I25.10 - Atherosclerotic heart disease of [place] coronary artery without angina pectoris (7) Debility Status: Chronic Code(s): R53.81 - Other malaise Type of Wound Date of Service: 11/29/20 Chief Complaint: Left groin ulcer status post I&D from Dr. Beach of hidradenitis left groin on 10/29/2020 History of Wound: This is a 69-year-old white male with a complicated medical history as listed above who presents to the wound healing center today for complaint of nonhealing postsurgical wound where he had a incision and drainage of hidradenitis to the left groin done on 10/29/[address] Beach. Since then the patient has been applying triamcinolone cream and covering with gauze. 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 With regards to wound care, he denies any significant drainage or localized signs of infection at this time. Per review of surgeons note, patient was also referred to be evaluated whether or not HBO is an option. The patient denies any other acute concerns. Past medical, family, and social history reviewed and not pertinent to the current visit and all other systems reviewed and negative with exception of those listed above. Progress of Wound: Stable?site is improving in size, no signs of obvious infection at this time, No new concerns - Physical Exam Vital Signs Temp Pulse Resp BP Pulse Ox 97.6 F L 81 18 124/94 H 95 11/29/20 14:15 11/29/20 14:15 11/29/20 14:15 11/29/20 14:15 11/22/20 14:24 General: Alert, Oriented x3, Cooperative, No apparent distress HEENT: Atraumatic Oral: Moist Mucosa Cardiovascular: Regular rate Abdomen: Soft, Non Tender Extremities: No clubbing, No cyanosis, No edema Skin: Ulcer/ Wound - Left scrotal ulcer, slough and devitalized tissue present, no signs of infection at this time Wound Measurements and Assessment WC - Nurse 1 - General Ulcer Measurement Start: 11/15/20 15:29 Freq: Status: Active Protocol: Activity Type Activity Date Activity User E-Sign Co-Sign Detail Recorded Client Recorded Date Recorded By Document 11/29/20 14:15 MS [id number] 11/29/20 14:22 MS 11/29/20 14:15 Wound Center Nurse 1 [Ulcer Assessment] #1 Left Groin -Current Size (cm) - Length 0.5 -Current Size (cm) - Width 0.2 -Current Size (cm) - Depth 0.1 -Total Square Cm 0.10 -Exudate Amt Small -Exudate Type Serosanguineous -Wound Margin Distinct, Outline Attached -Granulation Amt Small (1-33%) -Slough/Fibrin Yes -Necrosis Amt Small (1-33%) -Texture (Shawna-wound Skin Appearance) No Abnormality -Moisture (Shawna-wound Skin Appearance No Abnormality ) -Color (Shawna-wound Skin Appearance) No Abnormality -Temperature (Shawna-wound Skin No Abnormality Appearance) (Pt Warm) -Ulcer Cleansing Rinsed/ Irrigated with Saline -Foul Odor after Cleansing No -Anesthetic Used 4% Lidocaine Solution WC - Nurse 2 - General Ulcer CM Notes Start: 11/15/20 15:29 Freq: Status: Active Protocol: Activity Type Activity Date Activity User E-Sign Co-Sign Detail Recorded Client Recorded Date Recorded By Document 11/29/20 14:35 MW [id number] 11/29/20 16:12 MW 11/29/20 14:35 Wound Center Nurse 2 [Procedure/Treatment] -Time 14:35 -Correct Patient Yes -Correct Side, Site, Position Yes -Correct Procedure Yes -Procedure Performed Yes -Type of Procedure Debridement -Clinical Debridement Subcutaneous -Tissue Removed Subcutaneous -Post Debridement (cm) - Length 0.5 -Post Debridement (cm) - Width 0.9 -Post Debridement (cm) - Depth 0.1 -Total Square (Post) (cm) 0.45 -Area of Debridement (cm) - Length 0.5 -Area of Debridement (cm) - Width 0.9 -Total Square (Area) (cm) 0.45 -Tunneling No -Undermining/Tunneling No -Circular Undermining No -Wound/Ulcer Outcome Not Healed -Ulcer Cleansing Rinsed/ Irrigated with Saline -Foul Odor after Cleansing No -Bioengineered Tissue No -Bleeding Controlled with Pressure -Offloading No -Treatment Response Procedure Tolerated Well -Debridement - Subq, 1st 20sq cm Yes [See Physician Procedure note for Specifics] Pain Scale: 0-10 Numeric [Pain] -Is Patient Pain Free? Yes - Nurse 3 - General Ulcer D/C NN Start: 11/15/20 15:29 Freq: Status: Active Protocol: Activity Type Activity Date Activity User E-Sign Co-Sign Detail Recorded Client Recorded Date Recorded By Document 11/29/20 14:43 MS [id number] 11/29/20 14:44 MS 11/29/20 14:43 Wound Care Nurse 3 [Wound Dressing] #1 Left Groin -Ulcer Cleansing Rinsed/ Irrigated with Saline -Foul Odor after Cleansing No -Primary Dressing Applied Aquacel AG 4x4 -Primary Dressing Covered/Secured Dry Gauze with -Aquacel AG 4x4 1 Pain Scale: 0-10 Numeric [Pain] -Is Patient Pain Free? Yes - Visit Discharge [Visit Discharge Information] -Discharge Condition Stable -Ambulatory Status Ambulatory -Medication Reconcilliation completed No & provided to patient/care provider -Clinical Summary of Care Provided Yes Neurological: Neuro grossly intact Psych/Mental Status: Normal Affect, Appropriate, Alert and oriented to time, place, person, mood and affect Debridement Note Post-Debridement Measurements/Treatment - Nurse 2 - General Ulcer CM Notes Start: 11/15/20 15:29 Freq: Status: Active Protocol: Activity Type Activity Date Activity User E-Sign Co-Sign Detail Recorded Client Recorded Date Recorded By Document 11/15/20 15:47 MW [id number] 11/15/20 15:49 MW Document 11/22/20 14:42 MW [id number] 11/22/20 14:44 MW Document 11/29/20 14:35 MW [id number] 11/29/20 16:12 MW 11/15/20 11/22/20 11/29/20 15:47 14:42 14:35 Wound Center Nurse 2 #1 Left Groin -Time 15:47 14:42 14:35 -Correct Patient Yes Yes Yes -Correct Side, Site, Position Yes Yes Yes -Correct Procedure Yes Yes Yes -Procedure Performed Yes Yes Yes -Type of Procedure Debridement Debridement Debridement -Clinical Debridement Subcutaneous Subcutaneous Subcutaneous -Tissue Removed Subcutaneous Subcutaneous Subcutaneous -Post Debridement (cm) - Length 1.8 1.4 0.5 -Post Debridement (cm) - Width 1.0 0.9 0.9 -Post Debridement (cm) - Depth 0.1 0.1 0.1 -Total Square (Post) (cm) 1.80 1.26 0.45 -Area of Debridement (cm) - Length 1.8 1.4 0.5 -Area of Debridement (cm) - Width 1.0 0.9 0.9 -Total Square (Area) (cm) 1.80 1.26 0.45 -Tunneling No No No -Undermining/Tunneling No No No -Circular Undermining No No No -Wound/Ulcer Outcome Not Healed Not Healed Not Healed -Ulcer Cleansing Rinsed/ Rinsed/ Rinsed/ Irrigated with Irrigated with Irrigated with Saline Saline Saline -Foul Odor after Cleansing No No No -Bioengineered Tissue No No No -Bleeding Controlled with Pressure Pressure Pressure -Offloading No No No -Treatment Response Procedure Procedure Procedure Tolerated Well Tolerated Well Tolerated Well -Debridement - Subq, 1st 20sq cm Yes Yes Yes Pain Scale: 0-10 Numeric Is Patient Pain Free? Yes Yes Yes - Nurse 3 - General Ulcer D/C NN Start: 11/15/20 15:29 Freq: Status: Active Protocol: Activity Type Activity Date Activity User E-Sign Co-Sign Detail Recorded Client Recorded Date Recorded By Document 11/15/20 15:50 PL [id number] 11/16/20 05:27 PL Document 11/22/20 14:58 MT [id number] 11/22/20 14:59 MT Document 11/29/20 14:43 MS [id number] 11/29/20 14:44 MS 11/15/20 11/22/20 11/29/20 15:50 14:58 14:43 Wound Care Nurse 3 #1 Left Groin -Ulcer Cleansing Rinsed/ Rinsed/ Rinsed/ Irrigated with Irrigated with Irrigated with Saline Saline Saline -Foul Odor after Cleansing No No No -Negative Pressure Wound Therapy N/A -Primary Dressing Applied Silvercel Silvercel Aquacel AG 4x4 -Primary Dressing Covered/Secured with Dry Gauze Dry Gauze Dry Gauze -Aquacel AG 4x4 1 -Silvercel 1 1 Pain Scale: 0-10 Numeric Is Patient Pain Free? Yes Yes WC - Visit Discharge Discharge Condition Stable Stable Ambulatory Status Ambulatory Ambulatory Transportation Private Auto Medication Reconcilliation completed & No No provided to patient/care provider Clinical Summary of Care Provided Yes Yes Wound debrided: Left scrotal ulcer status post incision and drainage Laterality: Left Type of Debridement: Excisional debridement Anesthesia Used: 5% Lidocaine Gel Depth: in the subcutaneous layer Percentage of wound debrided: 100 Instrument Used: 5mm curette Tissue Removed: Slough and devitalized tissue Severity: Fat Layer Exposed Amount of bleeding with debridement: Mild Bleeding Controlled with: Pressure Patient tolerated procedure well Assessment/Plan Active Problems (Last Reviewed 11/08/20 @ 09:28 by Cheryl Schaeffer PROGRAM CONTROL ANALYST, PROGRAM CONTROL ANALYST-C) Hidradenitis (Acute) Postprocedural non-healing wound (Acute) Chronic respiratory failure with hypoxia (Chronic) Debility (Chronic) Chronic systolic (congestive) heart failure (Chronic) Coronary artery disease (Chronic) CHF (congestive heart failure), NYHA class I (Chronic) Assessment: See above diagnoses Plan: The patient was seen and examined at the wound center today and was updated on the plan of care. A subcutaneous debridement was performed today. The patient tolerated the procedure well. The patients wound care will consist of: Application of aquacell moistened change daily. Wound cultures were collected Prior and negative. Due to insurance criteria for HBO coverage, patient is not a candidate for HBO at this time. Patient educated on the importance of diet on wound healing and instructed to increase protein and vitamin C intake. Patient verbalized understanding. Patient will follow up at wound healing center in one week or sooner if needed. This note was generated with [employer] software. It may contain incorrect words, spelling, and punctuation that were not noted in checking the note before signing. [id number]: [id number] Ana subq tissue 20 sq cm/<
[2020-12-06 13:50] VITALS: BP 142/53; PULSE 72; RESP 18; TEMP 36; BMI 24.7
--- NOTE | 2020-12-06 15:13 | PN.PCM_ITS ---
(1) Postprocedural non-healing wound Status: Acute Code(s): T81.89XA - Other complications of procedures, not elsewhere classified, initial encounter (2) Hidradenitis Status: Acute Code(s): L73.2 - Hidradenitis suppurativa (3) CHF (congestive heart failure), NYHA class I Status: Chronic Code(s): I50.9 - Heart failure, unspecified (4) Chronic respiratory failure with hypoxia Status: Chronic Code(s): J96.11 - Chronic respiratory failure with hypoxia (5) Chronic systolic (congestive) heart failure Status: Chronic Code(s): I50.22 - Chronic systolic (congestive) heart failure (6) Coronary artery disease Status: Chronic Code(s): I25.10 - Atherosclerotic heart disease of [place] coronary artery without angina pectoris (7) Debility Status: Chronic Code(s): R53.81 - Other malaise Type of Wound Date of Service: 12/06/20 Chief Complaint: Left groin ulcer status post I&D from Dr. Beach of hidradenitis left groin on 10/29/2020 History of Wound: This is a 69-year-old white male with a complicated medical history as listed above who presents to the wound healing center today for complaint of nonhealing postsurgical wound where he had a incision and drainage of hidradenitis to the left groin done on 10/29/[address] Beach. Since then the patient has been applying triamcinolone cream and covering with gauze. 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 With regards to wound care, he denies any significant drainage or localized signs of infection at this time. Per review of surgeons note, patient was also referred to be evaluated whether or not HBO is an option. The patient denies any other acute concerns. Past medical, family, and social history reviewed and not pertinent to the current visit and all other systems reviewed and negative with exception of those listed above. Progress of Wound: Stable?site is improving in size, no signs of obvious infection at this time, No new concerns - Physical Exam Vital Signs Temp Pulse Resp BP Pulse Ox 96.8 F L 72 18 142/53 H 95 12/06/20 13:50 12/06/20 13:50 12/06/20 13:50 12/06/20 13:50 11/22/20 14:24 General: Alert, Oriented x3, Cooperative, No apparent distress HEENT: Atraumatic Oral: Moist Mucosa Lungs: Clear to auscultation Cardiovascular: Regular rate Abdomen: Soft, Non Tender Extremities: No clubbing, No cyanosis, No edema Skin: Ulcer/ Wound - See nursing documentation, scrotal ulcer with small amount of slough, no signs of infection at this time Wound Measurements and Assessment WC - Nurse 1 - General Ulcer Measurement Start: 11/15/20 15:29 Freq: Status: Active Protocol: Activity Type Activity Date Activity User E-Sign Co-Sign Detail Recorded Client Recorded Date Recorded By Document 12/06/20 13:50 MS [id number] 12/06/20 13:58 MS 12/06/20 13:50 Wound Center Nurse 1 [Ulcer Assessment] #1 Left Groin -Current Size (cm) - Length 0.1 -Current Size (cm) - Width 0.1 -Current Size (cm) - Depth 0.1 -Total Square Cm 0.01 -Epithelialization Large 67-100% -Exudate Amt None Present -Wound Margin Distinct, Outline Attached -Granulation Amt Large (67-100%) -Granulation Quality [place] -Slough/Fibrin No -Necrosis Amt None Present (0 %) -Texture (Shawna-wound Skin Appearance) No Abnormality -Moisture (Shawna-wound Skin Appearance No Abnormality ) -Color (Shawna-wound Skin Appearance) No Abnormality -Temperature (Shawna-wound Skin No Abnormality Appearance) (Pt Warm) -Ulcer Cleansing Rinsed/ Irrigated with Saline -Foul Odor after Cleansing No -Anesthetic Used 4% Lidocaine Solution WC - Nurse 2 - General Ulcer CM Notes Start: 11/15/20 15:29 Freq: Status: Active Protocol: Activity Type Activity Date Activity User E-Sign Co-Sign Detail Recorded Client Recorded Date Recorded By Document 12/06/20 14:15 MW [id number] 12/06/20 14:15 MW 12/06/20 14:15 Wound Center Nurse 2 [Procedure/Treatment] -Time 14:15 -Correct Patient Yes -Correct Side, Site, Position Yes -Correct Procedure Yes -Procedure Performed Yes -Type of Procedure Debridement -Clinical Debridement Subcutaneous -Tissue Removed Subcutaneous -Post Debridement (cm) - Length 0.2 -Post Debridement (cm) - Width 0.2 -Post Debridement (cm) - Depth 0.1 -Total Square (Post) (cm) 0.04 -Area of Debridement (cm) - Length 0.2 -Area of Debridement (cm) - Width 0.2 -Total Square (Area) (cm) 0.04 -Tunneling No -Undermining/Tunneling No -Circular Undermining No -Wound/Ulcer Outcome Not Healed -Ulcer Cleansing Rinsed/ Irrigated with Saline -Foul Odor after Cleansing No -Bioengineered Tissue No -Bleeding Controlled with Pressure -Offloading No -Treatment Response Procedure Tolerated Well -Debridement - Subq, 1st 20sq cm Yes [See Physician Procedure note for Specifics] Pain Scale: 0-10 Numeric [Pain] -Is Patient Pain Free? Yes - Nurse 3 - General Ulcer D/C NN Start: 11/15/20 15:29 Freq: Status: Active Protocol: Activity Type Activity Date Activity User E-Sign Co-Sign Detail Recorded Client Recorded Date Recorded By Document 12/06/20 14:25 MS [id number] 12/06/20 14:26 MS 12/06/20 14:25 Wound Care Nurse 3 [Wound Dressing] #1 Left Groin -Ulcer Cleansing Rinsed/ Irrigated with Saline -Foul Odor after Cleansing No -Primary Dressing Applied Silvercel -Primary Dressing Covered/Secured Dry Gauze with -Silvercel 1 Pain Scale: 0-10 Numeric [Pain] -Is Patient Pain Free? Yes - Visit Discharge [Visit Discharge Information] -Discharge Condition Stable -Ambulatory Status Ambulatory -Medication Reconcilliation completed No & provided to patient/care provider -Clinical Summary of Care Provided Yes Neurological: Neuro grossly intact Psych/Mental Status: Normal Affect, Appropriate, Alert and oriented to time, place, person, mood and affect Debridement Note Post-Debridement Measurements/Treatment WC - Nurse 2 - General Ulcer CM Notes Start: 11/15/20 15:29 Freq: Status: Active Protocol: Activity Type Activity Date Activity User E-Sign Co-Sign Detail Recorded Client Recorded Date Recorded By Document 11/15/20 15:47 MW [id number] 11/15/20 15:49 MW Document 11/22/20 14:42 MW [id number] 11/22/20 14:44 MW Document 11/29/20 14:35 MW [id number] 11/29/20 16:12 MW Document 12/06/20 14:15 MW [id number] 12/06/20 14:15 MW 11/15/20 11/22/20 11/29/20 15:47 14:42 14:35 Wound Center Nurse 2 #1 Left Groin -Time 15:47 14:42 14:35 -Correct Patient Yes Yes Yes -Correct Side, Site, Position Yes Yes Yes -Correct Procedure Yes Yes Yes -Procedure Performed Yes Yes Yes -Type of Procedure Debridement Debridement Debridement -Clinical Debridement Subcutaneous Subcutaneous Subcutaneous -Tissue Removed Subcutaneous Subcutaneous Subcutaneous -Post Debridement (cm) - Length 1.8 1.4 0.5 -Post Debridement (cm) - Width 1.0 0.9 0.9 -Post Debridement (cm) - Depth 0.1 0.1 0.1 -Total Square (Post) (cm) 1.80 1.26 0.45 -Area of Debridement (cm) - Length 1.8 1.4 0.5 -Area of Debridement (cm) - Width 1.0 0.9 0.9 -Total Square (Area) (cm) 1.80 1.26 0.45 -Tunneling No No No -Undermining/Tunneling No No No -Circular Undermining No No No -Wound/Ulcer Outcome Not Healed Not Healed Not Healed -Ulcer Cleansing Rinsed/ Rinsed/ Rinsed/ Irrigated with Irrigated with Irrigated with Saline Saline Saline -Foul Odor after Cleansing No No No -Bioengineered Tissue No No No -Bleeding Controlled with Pressure Pressure Pressure -Offloading No No No -Treatment Response Procedure Procedure Procedure Tolerated Well Tolerated Well Tolerated Well -Debridement - Subq, 1st 20sq cm Yes Yes Yes Pain Scale: 0-10 Numeric Is Patient Pain Free? Yes Yes Yes 12/06/20 14:15 Wound Center Nurse 2 #1 Left Groin -Time 14:15 -Correct Patient Yes -Correct Side, Site, Position Yes -Correct Procedure Yes -Procedure Performed Yes -Type of Procedure Debridement -Clinical Debridement Subcutaneous -Tissue Removed Subcutaneous -Post Debridement (cm) - Length 0.2 -Post Debridement (cm) - Width 0.2 -Post Debridement (cm) - Depth 0.1 -Total Square (Post) (cm) 0.04 -Area of Debridement (cm) - Length 0.2 -Area of Debridement (cm) - Width 0.2 -Total Square (Area) (cm) 0.04 -Tunneling No -Undermining/Tunneling No -Circular Undermining No -Wound/Ulcer Outcome Not Healed -Ulcer Cleansing Rinsed/ Irrigated with Saline -Foul Odor after Cleansing No -Bioengineered Tissue No -Bleeding Controlled with Pressure -Offloading No -Treatment Response Procedure Tolerated Well -Debridement - Subq, 1st 20sq cm Yes Pain Scale: 0-10 Numeric Is Patient Pain Free? Yes - Nurse 3 - General Ulcer D/C NN Start: 11/15/20 15:29 Freq: Status: Active Protocol: Activity Type Activity Date Activity User E-Sign Co-Sign Detail Recorded Client Recorded Date Recorded By Document 11/15/20 15:50 PL [id number] 11/16/20 05:27 PL Document 11/22/20 14:58 MT [id number] 11/22/20 14:59 MT Document 11/29/20 14:43 MS [id number] 11/29/20 14:44 MS Document 12/06/20 14:25 MS [id number] 12/06/20 14:26 MS 11/15/20 11/22/20 11/29/20 15:50 14:58 14:43 Wound Care Nurse 3 #1 Left Groin -Ulcer Cleansing Rinsed/ Rinsed/ Rinsed/ Irrigated with Irrigated with Irrigated with Saline Saline Saline -Foul Odor after Cleansing No No No -Negative Pressure Wound Therapy N/A -Primary Dressing Applied Silvercel Silvercel Aquacel AG 4x4 -Primary Dressing Covered/Secured with Dry Gauze Dry Gauze Dry Gauze -Aquacel AG 4x4 1 -Silvercel 1 1 Pain Scale: 0-10 Numeric Is Patient Pain Free? Yes Yes - Visit Discharge Discharge Condition Stable Stable Ambulatory Status Ambulatory Ambulatory Transportation [facility] Medication Reconcilliation completed & No No provided to patient/care provider Clinical Summary of Care Provided Yes Yes 12/06/20 14:25 Wound Care Nurse 3 #1 Left Groin -Ulcer Cleansing Rinsed/ Irrigated with Saline -Foul Odor after Cleansing No -Negative Pressure Wound Therapy -Primary Dressing Applied Silvercel -Primary Dressing Covered/Secured with Dry Gauze -Aquacel AG 4x4 -Silvercel 1 Pain Scale: 0-10 Numeric Is Patient Pain Free? Yes - Visit Discharge Discharge Condition Stable Ambulatory Status Ambulatory Transportation Medication Reconcilliation completed & No provided to patient/care provider Clinical Summary of Care Provided Yes Wound debrided: Left scrotal ulcer Laterality: Left Type of Debridement: Excisional debridement Anesthesia Used: 5% Lidocaine Gel Depth: in the subcutaneous layer Percentage of wound debrided: 100 Instrument Used: 3mm curette Tissue Removed: Slough and devitalized tissue Severity: Fat Layer Exposed Amount of bleeding with debridement: Mild Bleeding Controlled with: Pressure Patient tolerated procedure well Assessment/Plan Active Problems (Last Reviewed 11/08/20 @ 09:28 by Cheryl Schaeffer FOLDING MACHINE SETTER, FOLDING MACHINE SETTER-C) Hidradenitis (Acute) Postprocedural non-healing wound (Acute) Chronic respiratory failure with hypoxia (Chronic) Debility (Chronic) Chronic systolic (congestive) heart failure (Chronic) Coronary artery disease (Chronic) CHF (congestive heart failure), NYHA class I (Chronic) Assessment: See above diagnoses Plan: The patient was seen and examined at the wound center today and was updated on the plan of care. A subcutaneous debridement was performed today. The patient tolerated the procedure well. The patients wound care will consist of: Application of aquacell moistened change daily. Wound cultures were collected Prior and negative. Due to insurance criteria for HBO coverage, patient is not a candidate for HBO at this time. Patient educated on the importance of diet on wound healing and instructed to increase protein and vitamin C intake. Patient verbalized understanding. Patient will follow up at wound healing center in one week or sooner if needed. This note was generated with [employer] software. It may contain incorrect words, spelling, and punctuation that were not noted in checking the note before signing. [id number]: [id number] Ana subq tissue 20 sq cm/<
[2020-12-13 13:34] VITALS: BP 145/73; PULSE 76; RESP 18; TEMP 36.9; BMI 24.7
--- NOTE | 2020-12-14 07:26 | PCM.WC.PN ---
History of Present Illness Date of Service: 12/13/20 Chief Complaint: Left groin ulcer status post I&D from Dr. Beach of hidradenitis left groin on 10/29/2020 History of Wound: This is a 69-year-old white male with a complicated medical history as listed above who presents to the wound healing center today for complaint of nonhealing postsurgical wound where he had a incision and drainage of hidradenitis to the left groin done on 10/29/[address] Beach. Since then the patient has been applying triamcinolone cream and covering with gauze. 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 With regards to wound care, he denies any significant drainage or localized signs of infection at this time. Per review of surgeons note, patient was also referred to be evaluated whether or not HBO is an option. The patient denies any other acute concerns. Past medical, family, and social history reviewed and not pertinent to the current visit and all other systems reviewed and negative with exception of those listed above. Subjective Subjective: Patient feels well, site is healed and he denies any acute concerns at this time Objective Data Objective Data Vital Signs: Vital Signs Temp Pulse Resp BP Pulse Ox 98.4 F 76 18 145/73 H 95 12/13/20 13:34 12/13/20 13:34 12/13/20 13:34 12/13/20 13:34 11/22/20 14:24 Oxygen Delivery Method Room Air Body Mass Index (BMI) 24.7 Finger Stick Blood Glucose 126 Assessment & Plan Assessment/Plan (1) Postprocedural non-healing wound: Status: Acute Code(s): T81.89XA - Other complications of procedures, not elsewhere classified, initial encounter (2) Hidradenitis: Status: Acute Code(s): L73.2 - Hidradenitis suppurativa (3) Debility: Status: Chronic Code(s): R53.81 - Other malaise Plan: Acute?the patient was seen and examined and updated on the plan of care. His wound is now healed without any signs of infection at this time. For extra padding for the next week he was instructed to utilize covering the recently healed site with gauze for cushion and protection. Discussed with patient red flag signs symptoms that would require urgent medical attention. Today he will be discharged from the wound healing center and follow-up in the future if new wounds occur. He'll continue with increased protein and vitamin C to ensure proper wound healing. This note was generated with [employer] dictation software. It may contain incorrect words, spelling, and punctuation that were not noted in checking the note before signing. I have spent 25 minutes today reviewing labs, records, and history. Time includes coordinating care, interpretation of tests, and counseling the patient/family. This also includes time I spent with the patient for exam, treatment plan, and education as well as documenting clinical information in the electronic health record. Charges/Coding Office Visits / Consults: [id number] OV L3 Est
== END 2020-12-13 14:09 | disposition home or self-care (01) ==
LOC: WC 13:30
PROVIDERS: PCP Family Medicine; Visit Provider Nurse Practitioner Family
DX: L73.2 Hidradenitis suppurativa (principal); T81.89XA Other complications of procedures, not elsewhere classified, initial encounter; N50.89 Other specified disorders of the male genital organs; J96.11 Chronic respiratory failure with hypoxia; I50.22 Chronic systolic (congestive) heart failure; I25.10 Atherosclerotic heart disease of native coronary artery without angina pectoris; J44.1 Chronic obstructive pulmonary disease with (acute) exacerbation
CPT/HCPCS: 11042; 99213; G0463

== ENCOUNTER 2021-01-10 08:00 | Outpatient (RCR) | payer SELFPAY | END 2021-01-14 23:59 | LOC: PR 08:00 | PROVIDERS: PCP Family Medicine; Visit Provider Internal Medicine Critical Care Medicine | DX: Z00.00 Encounter for general adult medical examination without abnormal findings (principal) ==

== ENCOUNTER 2021-02-12 08:00 | Outpatient (RCR) | payer SELFPAY | END 2021-02-13 23:59 | LOC: PR 08:00 | PROVIDERS: PCP Family Medicine; Referring Provider Internal Medicine Critical Care Medicine; Visit Provider Internal Medicine Critical Care Medicine | DX: Z00.00 Encounter for general adult medical examination without abnormal findings (principal) ==

== ENCOUNTER 2021-03-14 08:00 | Outpatient (RCR) | payer SELFPAY | END 2021-03-16 23:59 | LOC: PR 08:00 | PROVIDERS: PCP Family Medicine; Referring Provider Internal Medicine Critical Care Medicine; Visit Provider Internal Medicine Critical Care Medicine | DX: Z00.00 Encounter for general adult medical examination without abnormal findings (principal) ==

== ENCOUNTER 2021-04-16 08:00 | Outpatient (RCR) | payer SELFPAY ==
[2021-03-14 09:31] VITALS: BMI 24.7
== END 2021-04-16 23:59 ==
LOC: PR 08:00
PROVIDERS: PCP Family Medicine; Referring Provider Internal Medicine Critical Care Medicine; Visit Provider Internal Medicine Critical Care Medicine
DX: Z00.00 Encounter for general adult medical examination without abnormal findings (principal)

== ENCOUNTER → 2021-04-23 14:26 | Outpatient (CLI) | payer MEDICARE, OTHER, SELFPAY ==
--- NOTE | 2021-04-23 14:00 | PET_ITS ---
EXAMINATION: FDG PET-CT INDICATIONS: A 70-year-old male with reported history of carcinoma of lung presenting for restaging examination. COMPARISON EXAMINATION: FDG PET study dated 10/16/20 INDEX LESION SIZE SUV INTERPRETATION PREVIOUS: left anterior perineum soft tissue Demonstrates metabolic resolution on the current examination TECHNIQUE: Following the intravenous administration of 12.43 mCi of F-18 deoxyglucose via the left forearm, multiplanar image acquisitions of the neck, chest, abdomen and pelvis to level of mid thigh, obtained at one hour post radiopharmaceutical administration contemporaneously interpreted with the current CT of the neck, chest, abdomen and pelvis, to level of mid thigh, dated 04/23/21 via coregistration and FDG PET study dated 10/16/20 reveals: BLOOD GLUCOSE LEVEL:?? 100 mg/dl?HEIGHT:?65 inches?WEIGHT: 137 lbs. FINDINGS: 1. There is no quantitative scintigraphic evidence of abnormal increased glucose metabolism on meticulous inspection of whole body acquisitions to include all three axis reconstructions. 2. Normal physiologic distribution of the radiopharmaceutical is apparent in the hepatic and splenic parenchyma, both renal units, bladder and visualized intestinal tract. The visualized portion of the cerebral cortical-subcortical structures demonstrate symmetric and preserved glucose metabolism. Diffuse radiopharmaceutical concentration is noted in all four quadrants of the abdomen and pelvis. The previously identified left anterior perineal hypermetabolic focus noted on the FDG PET study dated 10/16/20 is not apparent on the present examination. The persistently defined density noted in the left upper posterior lung-left upper lobe remains non-glucose avid and morphologically stable. Previously defined morphologic-anatomic changes noted on review of CT of the neck, chest, abdomen and pelvis on the FDG PET-CT report dated 10/16/20, are essentially unchanged on the current examination. PET/PET/CT Tumor Base -Thigh Subs IMPRESSION: 1. NEGATIVE EXAMINATION. There is no definitive quantitative scintigraphic evidence of recurrent-metastatic/viable neoplasm attributed to the patient?s known lung carcinoma. 2. There is interval resolution of the previously demonstrated anterior perineal hypermetabolic focus. 3. Diffuse intestinal tract distribution of radiopharmaceutical is most consistent with physiologic radiotracer distribution. If intraluminal soft tissue mass formation is a diagnostic consideration, correlation with CT of the abdomen and pelvis with oral and intravenous contrast is recommended. (Doen et al, Journal of Nuclear Medicine, 30:S276, 2003). 4. Overall compared to the previous FDG PET CT study dated 10/16/2020, there is current absence of defined viable neoplastic disease with resolution of the previously described anterior perineal metabolic abnormality. Electronic Signature Accurate Quantification of SUVs for this report are calculated using the exclusive [employer], (U.S. Patent No. 10, [id number] 983). Standardization and correction of the FDG SUV metric exclusively available with [employer] intellectual property, allow for vendor non-specific objective quantitative sequential FDG PET-CT comparison and otherwise unobtainable optimization of the sensitivity and specificity of the examination. Electronically Signed: Iker Montalvo DO at 19:36 EDT Tel , Service support ,
== END ==
PROVIDERS: PCP Family Medicine; Referring Provider Internal Medicine Hematology & Oncology; Visit Provider Internal Medicine Hematology & Oncology
DX: C34.12 Malignant neoplasm of upper lobe, left bronchus or lung (principal); C79.51 Secondary malignant neoplasm of bone
CPT/HCPCS: 78815; A9552; A9588

== ENCOUNTER 2021-04-29 09:45 | Emergency (ER) | payer MEDICARE, OTHER, SELFPAY ==
[2021-04-29 09:46] VITALS: BP 161/56; PULSE 80; RESP 22; TEMP 36.4; O2SAT 96; BMI 22.1
[2021-04-29 09:47] VITALS: BP 161/56; PULSE 80; RESP 22; TEMP 36.4; O2SAT 96
--- NOTE | 2021-04-29 09:55 | EKG12_ITS ---
Test Reason : SOB Blood Pressure : / mmHG Vent. Rate : 072 BPM Atrial Rate : 072 BPM P-R Int : 272 ms QRS Dur : 114 ms QT Int : 432 ms P-R-T Axes : 063 051 068 degrees QTc Int : 473 ms Sinus rhythm with 1st degree A-V block with occasional Premature ventricular complexes Low voltage QRS (Limb Leads) Nonspecific ST abnormality Abnormal ECG Confirmed by OLAF SUBRAMANIAN, HÉCTOR ([id number]), city editor ZULAY DEAN ([id number]) on 05/01/2021 10:16:17 AM Referred By: RUBI Confirmed By:HÉCTOR BABIN MD
--- NOTE | 2021-04-29 09:57 | EX.ED.DYSGE1 ---
HPI History of Present Illness Chief Complaint: Shortness of Breath Informant: patient Narrative Narrative: 70-year-old male presenting with shortness of breath. He states this started last Thursday. He has noticed persistent shortness of breath. He wears home oxygen 3 L during the day and 4 L at night. He states his pulse ox has been running 97% at rest on his 3 L. He denies fever or cough. He states he noticed that his albuterol is . He denies chest pain or chest pressure. He is vaccinated for Covid. Prior similar symptoms: Yes Recent Illness/Hospitalization: No PFSH [facility] Medical History Anemia Arthritis Atherosclerotic heart disease of [place] coronary artery without angina pectoris CHF (congestive heart failure), NYHA class I Chronic systolic (congestive) heart failure Debility GERD (gastroesophageal reflux disease) Hyperlipidemia Hypothyroidism Lesion of pelvic bone Lung cancer Nonischemic cardiomyopathy Pneumothorax after biopsy Psoriatic arthritis PVD (peripheral vascular disease) Secondary pulmonary arterial hypertension Severe left ventricular systolic dysfunction Stage 3 severe COPD by GOLD classification Home Medications multivitamin 1 ea PO DAILY 08/27/16 [History Last Taken 12/26/19] atezolizumab 1,200 mg/20 mL (60 mg/mL) intravenous solution 60 mg IV UD ml 08/27/18 [History Last Taken 2 Weeks Ago ~12/12/19] cholecalciferol (vitamin D3) 1,000 unit PO BID 12/01/18 [History Last Taken 12/26/19] omeprazole 40 mg PO DAILY 12/01/18 [History Last Taken 12/26/19] aspirin 81 mg tablet,delayed release 81 mg PO QODAY tab 03/28/19 [History Last Taken 12/25/19] levothyroxine 125 mcg tablet 125 mcg PO DAILY 10/11/19 [History Last Taken 12/26/19] atorvastatin 40 mg tablet 40 mg PO QHS #90 tab 08/20/20 [Rx Last Taken Unknown] carvedilol 6.25 mg tablet 6.25 mg PO BID #180 tab 09/03/20 [Rx Last Taken Unknown] losartan 25 mg tablet See Rx Instructions .ROUTE .COMPLEX #90 tab 10/01/20 [Rx Last Taken Unknown] sodium chloride 1 gram tablet 1,000 mg PO BID tab 10/15/20 [History Last Taken Unknown] furosemide 40 mg tablet 40 mg PO QAM #90 tab 10/22/20 [Rx Last Taken Unknown] albuterol sulfate 90 mcg/actuation aerosol inhaler 2 inh INHALATION Q4H PRN PRN #18 gm 12/03/20 [Rx Last Taken Unknown] fluticasone propionate 230 mcg-salmeterol 21 mcg/actuation HFA inhaler 2 puff INHALATION BID #12 g 01/07/21 [Rx Last Taken Unknown] potassium chloride 20 mEq tablet,extended release(part/cryst) 20 meq PO BID #180 tab 03/25/21 [Rx Last Taken Unknown] hydroxychloroquine 200 mg tablet 200 mg PO DAILY tab 04/15/21 [History Last Taken Unknown] magnesium oxide 400 mg PO DAILY 04/15/21 [History Last Taken Unknown] umeclidinium 62.5 mcg/actuation blister powder for inhalation 1 inh INHALATION DAILY ea 04/15/21 [History Last Taken Unknown] albuterol sulfate 2.5 mg INHALATION Q4H PRN #25 vial 04/29/21 [Rx Last Taken Unknown] prednisone 40 mg PO DAILY #8 tab 04/29/21 [Rx Last Taken Unknown] Allergy/AdvReac Type Severity Reaction Status Date / Time No Known Allergies Allergy Verified 04/29/21 09:48 Family History Mother Heart disease Brother CVA (cerebral vascular accident) Father Cancer brain Grandmother Diabetes Surgical History History of appendectomy (~12/26/19) Implantable cardioverter-defibrillator (ICD) in situ (12/27/16) Social History Smoking Status: Former smoker how long ago did patient quit smokin, 1.5p/day second hand exposure: Yes alcohol intake: never substance use type: does not use caffeine: Yes Type: coffee Number of servings: 2 what type of physical activity do you participate in: walking frequency: 3-4 times per week ROS ROS ED Constitutional Constitutional ED: Denies fever(s) Eyes Eyes: Denies change in vision ENT ENT ED: Denies rhinorrhea or sore throat Cardiovascular Cardiovascular: Denies chest pain or palpitations Respiratory/Chest Respiratory/Chest: Reports dyspnea; Denies cough Gastrointestinal Gastrointestinal: Denies abdominal pain, diarrhea, nausea or vomiting Genitourinary Genitourinary ED: Denies dysuria Musculoskeletal Musculoskeletal: Denies myalgias Integumentary Denies rash Neurologic Neurologic: Denies headache(s) Psychiatric Psychiatric: Denies suicidal thoughts EXAM Physical Exam Const Vital Signs: 04/29/21 09:46 04/29/21 09:47 04/29/21 10:38 Temperature 97.6 F L 97.6 F L Temperature Source Temporal Temporal Pulse Rate 80 80 Respiratory Rate 22 H 22 H Respiratory Effort Short of Breath Blood Pressure 161/56 H 161/56 H Blood Pressure Mean 91 91 Pulse Ox 96 96 100 Oxygen Delivery Method Nasal Cannula Nasal Cannula Nasal Cannula Oxygen Flow Rate (L/min) 3 3 3 04/29/21 12:05 Temperature Temperature Source Pulse Rate 60 Respiratory Rate 18 Respiratory Effort Blood Pressure 175/79 H Blood Pressure Mean 111 Pulse Ox 100 Oxygen Delivery Method Nasal Cannula Oxygen Flow Rate (L/min) 3 Positive well nourished and well developed General Appearance ED: well developed HEENT Reports normocephalic and head/scalp atraumatic Eyes PERRL and EOMs intact bilaterally Neck supple General: Negative for tenderness Chest Wall inspection of chest normal Resp normal respiratory effort Effort and Inspection: Negative for retractions Auscultation: diminished lung sounds Cardio regular rate and regular rhythm GI non-tender and non-distended Palpation: soft; Negative for guarding or rebound tenderness present no CVA tenderness Extremity normal to inspection General Extremety ED: Negative for edema General Extremity: Negative for edema Neuro oriented x3 Sensorium / Orientation: alert Psych mental status grossly normal MDM MDM MDM Narrative Medical decision making narrative: Patient was given albuterol, Atrovent aerosols. CBC, chemistries unremarkable other than sodium 128. Patient has chronic hyponatremia. Troponin is negative. BNP 224.2. Chest x-ray read by myself and radiology shows stable mild increased markings in the lingular segment of the left upper lobe suggestive of atelectasis and/or scarring. Covid is negative. Patient is feeling improved on reevaluation. His pulse ox remains 100% on his normal 3 L. He was given prednisone and a prescription for prednisone. He is given prescription for albuterol. Advised to follow-up with his primary care physician. Advised return to ED for worsening complaints. Lab Data Attestation: I reviewed the patient's lab results. Labs: Laboratory Results - last 24 hr 04/29/21 04/29/21 04/29/21 10:10 10:10 10:10 WBC 4.9 RBC 2.72 L Hgb 9.3 L Hct 27.3 L MCV 100.4 H MCH 34.2 H MCHC 34.1 RDW Std Deviation 44.0 H RDW Coeff of Sydni 12.1 Plt Count 148 L MPV 9.3 Immature Gran % (Auto) 0.600 Neut % (Auto) 66.9 Lymph % (Auto) 16.1 L Clarke % (Auto) 11.1 H Eos % (Auto) 4.5 Baso % (Auto) 0.8 Absolute Neuts (auto) 3.2 Absolute Lymphs (auto) 0.78 L Nucleated RBC % 0 Sodium 128 L Potassium 4.4 Chloride 91 L Carbon Dioxide 31.0 Anion Gap 6 BUN 18 Creatinine 1.13 Estim Creat Clear Calc 51.90 Est GFR (MDRD) Af Amer 82 Est GFR (MDRD) Non-Af 68 BUN/Creatinine Ratio 15.9 Glucose 102 Calcium 8.8 Troponin I High Sens 21 B-Natriuretic Peptide 224.2 H Radiography Chest X-Ray - ED: 1 View, Read by ED Physician and Read by Radiologist Diagnostic Testing: Radiology Impression Chest X-Ray 04/29/21 10:25 IMPRESSION: Stable mild increased markings in the lingular segment of the left upper lobe suggestive of atelectasis and/or scarring. Electronically Signed: Sebastien Zheng MD at 10:33 EDT , Service support , Discharge Plan Triage Chief Complaint: Shortness of Breath ED Provider: Gris Hurd Dx/Rx/DC Orders Clinical Impression: Acute exacerbation of chronic obstructive pulmonary disease Instructions: ED COPD Flare Prescriptions: New prednisone 20 mg tablet 40 mg PO DAILY Qty: 8 RF: 0 albuterol sulfate 2.5 mg /3 mL (0.083 %) solution for nebulization 2.5 mg inhalation Q4H PRN Qty: 25 RF: 0 No Action aspirin [Adult Aspirin Regimen] 81 mg tablet,delayed release (DR/EC) 81 mg PO QODAY RF: 0 levothyroxine 125 mcg tablet 125 mcg PO DAILY RF: 0 sodium chloride 1 gram tablet 1,000 mg PO BID RF: 0 umeclidinium 62.5 mcg/actuation blister with device 1 inh inhalation DAILY RF: 0 magnesium oxide 400 mg magnesium tablet 400 mg PO DAILY RF: 0 multivitamin 1 EACH tablet 1 ea PO DAILY RF: 0 hydroxychloroquine 200 mg tablet 200 mg PO DAILY RF: 0 omeprazole 40 MG capsule,delayed release(DR/EC) 40 mg PO DAILY RF: 0 cholecalciferol (vitamin D3) 1,000 UNIT tablet 1,000 unit PO BID RF: 0 Tecentriq 1,200 mg/20 mL (60 mg/mL) solution 60 mg IV UD RF: 0 atorvastatin 40 mg tablet 40 mg PO QHS Qty: 90 RF: 3 carvedilol 6.25 mg tablet 6.25 mg PO BID Qty: 180 RF: 3 losartan 25 mg tablet See Rx Instructions .ROUTE .COMPLEX Qty: 90 RF: 4 furosemide 40 mg tablet 40 mg PO QAM Qty: 90 RF: 3 albuterol sulfate 90 mcg/actuation HFA aerosol inhaler 2 inh INHALATION Q4H PRN PRN (Reason: Wheezing) Qty: 18 RF: 6 fluticasone propion-salmeterol 230-21 mcg/actuation HFA aerosol inhaler 2 puff inhalation BID Qty: 12 RF: 12 potassium chloride 20 mEq tablet,ER particles/crystals 20 meq PO BID Qty: 180 RF: 3 Primary Care Provider: Clay Warren Referrals: Clay Warren MD [Primary Care Provider] - Disposition Disposition: Home, Self Care
[2021-04-29 10:25] LABS: Absolute Lymphocyte Count 0.78 X10^3/uL (0.83-4.51); Absolute Neutrophil Count 3.2 X10^3/uL (2.0-7.7); Basophil# 0.04 X10^3/uL; Basophil% 0.8 % (0-1); Eosinophil# 0.22 X10^3/uL; Eosinophils% 4.5 % (0-5); Hematocrit 27.3 % (40-54); Hemoglobin 9.3 g/dL (13.0-16.5); Lymphocyte # 0.78 X10^3/ul (0.83-4.51); Lymphocyte % 16.1 % (19-41); Mean Corp Hgb Conc 34.1 g/dL (32-36); Mean Corpuscular Hgb 34.2 pg (27.0-32.0); Mean Corpuscular Volume 100.4 fL (80-94); Mean Platelet Vol. 9.3 fl (6.2-12.0); Monocyte# 0.54 X10^3/uL; Monocyte% 11.1 % (0-10); NRBC Flagged by Analyzer 0 % (0-5); Neutrophil # 3.24 X10^3/uL (2.7-7.7); Neutrophil % 66.9 % (47-70); Platelet Count 148 K/mm3 (150-450); RBC Distribution Width CV 12.1 % (11.6-14.6); Red Blood Count 2.72 M/mm3 (4.6-6.2); White Blood Count 4.9 K/mm3 (4.4-11.0)
--- NOTE | 2021-04-29 10:25 | RAD_ITS ---
STUDY: X-RAY CHEST REASON FOR EXAM: Male, 70 years old. Sob TECHNIQUE: Single AP portable view of the chest. COMPARISON: Comparison is made with prior examination dated 12/19/2019. FINDINGS: EKG electrodes are seen. Stable elevation of the right hemidiaphragm. Stable mild increased markings in the lingular segment of the left upper lobe suggestive of a possible atelectasis and/or scarring. There is no demonstrated pleural abnormality. A left-sided unipolar pacemaker is seen. Normal mediastinum and carina. Normal visualized pulmonary arteries. There is atherosclerotic calcification of the aortic arch with tortuosity. There are diffuse degenerative changes of the visualized thoracic spine. Normal visualized ribs, clavicles, and shoulders. There is no demonstrated abnormality of the visualized soft tissue structures of the upper abdomen. RAD/Chest 1 View (Portable) IMPRESSION: Stable mild increased markings in the lingular segment of the left upper lobe suggestive of atelectasis and/or scarring. Electronically Signed: Sebastien Zheng MD at 10:33 EDT , Service support ,
[2021-04-29] MEDS: Ipratropium/Albuterol Sulfate 3 ML AMPUL.NEB INHALATION (10:26)
[2021-04-29 10:38] VITALS: O2SAT 100
[2021-04-29 10:38] LABS: BNP,B-Type NATRIURETIC PEPTIDE 224.2 pg/mL (0-100)
[2021-04-29 10:41] LABS: Anion Gap 6 (5-15); BUN 18 mg/dL (7-18); BUN/Creat Ratio 15.9 RATIO (10-20); Calcium,Total 8.8 mg/dL (8.5-10.1); Chloride 91 mmol/L (98-107); Creatinine, Serum 1.13 mg/dL (0.70-1.30); EST Glomerular Filtration Rate 68 mL/min (>60); Est Glom Filt Rate - Afr Amer 82 mL/min (>60); Glucose 102 mg/dL (74-106); Potassium 4.4 mmol/L (3.5-5.1); Sodium Level 128 mmol/L (136-145); Troponin-I HS 21 pg/mL (3.0-78.0)
[2021-04-29 12:05] VITALS: BP 175/79; PULSE 60; RESP 18; O2SAT 100
[2021-04-29] MEDS: predniSONE 20 MG Tablet 60 MG PO (12:24)
[2021-04-29] MEDS: Albuterol 2.5 MG/3 ML VIAL.NEB. INHALATION (13:00)
[2021-04-29 13:19] VITALS: BP 125/75; PULSE 71; RESP 18; O2SAT 98
== END 2021-04-29 13:19 | disposition home or self-care (01) ==
PROVIDERS: Emergency Provider Emergency Medicine; PCP Family Medicine
DX: J44.1 Chronic obstructive pulmonary disease with (acute) exacerbation (principal); Z87.891 Personal history of nicotine dependence; D64.9 Anemia, unspecified; E03.9 Hypothyroidism, unspecified; E78.5 Hyperlipidemia, unspecified; I25.10 Atherosclerotic heart disease of native coronary artery without angina pectoris; I27.21 Secondary pulmonary arterial hypertension; K21.9 Gastro-esophageal reflux disease without esophagitis; I50.22 Chronic systolic (congestive) heart failure; L40.50 Arthropathic psoriasis, unspecified; Z79.51 Long term (current) use of inhaled steroids; Z79.52 Long term (current) use of systemic steroids; Z79.82 Long term (current) use of aspirin
CPT/HCPCS: 71045; 80048; 83880; 84484; 85025; 87426; 93005; 99285; A4216

== ENCOUNTER 2021-05-16 08:00 | Outpatient (RCR) | payer SELFPAY ==
[2021-04-17 00:23] VITALS: BMI 24.7
== END 2021-05-16 23:59 ==
LOC: PR 08:00
PROVIDERS: PCP Family Medicine; Referring Provider Internal Medicine Critical Care Medicine; Visit Provider Internal Medicine Critical Care Medicine
DX: Z00.00 Encounter for general adult medical examination without abnormal findings (principal)

== ENCOUNTER 2021-06-13 08:00 | Outpatient (RCR) | payer SELFPAY ==
[2021-05-17 00:18] VITALS: BMI 24.7
== END 2021-06-16 23:59 ==
LOC: PR 08:00
PROVIDERS: PCP Family Medicine; Referring Provider Internal Medicine Critical Care Medicine; Visit Provider Internal Medicine Critical Care Medicine
DX: Z00.00 Encounter for general adult medical examination without abnormal findings (principal)

== ENCOUNTER 2021-07-16 08:00 | Outpatient (RCR) | payer SELFPAY ==
[2021-06-17 00:14] VITALS: BMI 24.7
== END 2021-07-16 23:59 ==
LOC: PR 08:00
PROVIDERS: PCP Family Medicine; Referring Provider Internal Medicine Critical Care Medicine; Visit Provider Internal Medicine Critical Care Medicine
DX: Z00.00 Encounter for general adult medical examination without abnormal findings (principal)

== ENCOUNTER 2021-08-15 08:00 | Outpatient (RCR) | payer SELFPAY ==
[2021-07-17 00:19] VITALS: BMI 24.7
== END 2021-08-16 23:59 ==
LOC: PR 08:00
PROVIDERS: PCP Family Medicine; Referring Provider Internal Medicine Critical Care Medicine; Visit Provider Internal Medicine Critical Care Medicine
DX: Z00.00 Encounter for general adult medical examination without abnormal findings (principal)

== ENCOUNTER 2021-09-12 08:00 | Outpatient (RCR) | payer SELFPAY | END 2021-09-16 23:59 | LOC: PR 08:00 | PROVIDERS: PCP Family Medicine; Referring Provider Internal Medicine Critical Care Medicine; Visit Provider Internal Medicine Critical Care Medicine | DX: Z00.00 Encounter for general adult medical examination without abnormal findings (principal) ==

== ENCOUNTER 2021-10-08 08:00 | Outpatient (RCR) | payer SELFPAY | END 2021-10-14 23:59 | disposition home or self-care (01) | LOC: PR 08:00 | PROVIDERS: PCP Family Medicine; Referring Provider Internal Medicine Critical Care Medicine; Visit Provider Internal Medicine Critical Care Medicine | DX: Z00.00 Encounter for general adult medical examination without abnormal findings (principal) ==

== ENCOUNTER 2021-10-09 08:05 | Outpatient (CLI) | payer MEDICARE, OTHER, SELFPAY ==
--- NOTE | 2021-10-09 08:30 | PET_ITS ---
EXAMINATION: FDG PET/CT INDICATIONS: A 70-year-old male with history of primary lung carcinoma presenting for restaging examination. COMPARISON EXAMINATION: FDG PET study dated 04/23/21 INDEX LESION SIZE SUV INTERPRETATION NEW: left hemithorax pulmonary parenchyma (nR3) 9.4-mm (largest) (frame 200) 4.0 (max) Fulfills quantitative criteria for viable neoplasm NEW: left hemithorax pleural interface 14.5-mm (frame 226) 2.6 Fulfills borderline quantitative criteria for viable neoplasm NEW: right lower lung-right middle lobe 0.9 Quantitative criteria for viable neoplasm are not fulfilled TECHNIQUE: Following the intravenous administration of 13.53 mCi of F-18 deoxyglucose via the left hand, multiplanar image acquisitions of the neck, chest, abdomen and pelvis to level of mid thigh, obtained at one hour post radiopharmaceutical administration contemporaneously interpreted with the current CT of the neck, chest, abdomen and pelvis to level of mid thigh, dated 10/09/21 via coregistration and FDG PET study dated 04/23/21 reveal: SERUM GLUCOSE LEVEL: 128 mg/dl. HEIGHT: 66 inches. WEIGHT: 132 lbs. FINDINGS: 1. Newly identified increased glucose metabolism is manifest in several locations within the left hemithorax pulmonary parenchyma-left upper lobe generating a calculated maximal standard uptake value of 4.0. The maximal axial diameter of the largest, most conspicuous parenchymal density on review of CT of the chest dated 10/09/21 is 9.4-mm (AP). 2. Facilitated fluorine labeled glucose metabolism is newly apparent in the left upper posterolateral hemithorax at the pleural interface corresponding to a pleural-based density defined on CT of the chest dated 10/09/21. The calculated maximal standard uptake value is 2.6. The maximal axial diameter of the corresponding metabolic, morphologic abnormality is 14.5-mm. 3. Mild increased tracer concentration is observed in the right lower anterior lung-right middle lobe generating a calculated maximal standard uptake value of 0.9. Quantitative criteria for viable neoplasm are not fulfilled. 4. Normal physiologic distribution of the radiopharmaceutical is apparent in the hepatic (2.7) and splenic parenchyma, both renal units, bladder and visualized intestinal tract. Diffuse radiopharmaceutical concentration is noted in all four quadrants of the abdomen and pelvis. Pertinent CT findings are as follows: CHEST: Ventricular pacemaker placement is defined. There is atherosclerotic calcification defined in the thoracic aorta without evidence of dilatation-aneurysm formation. Coronary arterial calcification is demonstrated. Bilateral axillary and mediastinal soft tissue densities with fatty hilus are non-glucose avid. Centrilobular emphysematous changes are noted in the bilateral upper lung zones. ABDOMEN AND PELVIS: There is atherosclerotic calcification defined in the abdominal aorta without evidence of dilatation-aneurysm formation. Pelvic arterial calcification is demonstrated. Calcification is encountered in the bilateral renal units. Colonic diverticulosis is noted without evidence of diverticulitis. Calcified phlebolith formation is observed in the left lower hemipelvis. SKELETAL: Degenerative changes are noted in the cervical, thoracic and lumbar spine without evidence of increased radiopharmaceutical concentration. PET/PET/CT Tumor Base -Thigh Init IMPRESSION: 1. ABNORMAL EXAMINATION INDICATIVE OF MALIGNANT VIABLE NEOPLASM. 2. Increased glucose concentration newly apparent in the left lung-left upper lobe in several nodular presentations fulfill quantitative criteria for viable neoplasm. Histopathologic analysis is recommended. (Brynn et al, Journal of Nuclear Medicine 43:302 P, 2002). 3. The increase in tracer uptake identified in the left hemithorax at the pleural interface fulfills borderline quantitative criteria for viable neoplasm. (Kay, et al, Chest 122:1918, 2002). 4. Subtle increased tracer uptake demonstrated in the right lower anterior lung-right middle lobe does not fulfill quantitative criteria for viable malignant involvement. 5. Overall compared to the previous FDG PET study dated 04/23/2021, there is interval development of viable neoplasm in the left upper lung-left upper lobe and potentially involving the left hemithorax at the pleural interface. Electronic Signature Iker Montalvo D.O. Accurate Quantification of SUVs for this report are calculated using the exclusive [employer], (U.S. Patent No. 10, 674, [id number]). Standardization and correction of the FDG SUV metric exclusively available with [employer] intellectual property, allow for vendor non-specific objective quantitative sequential FDG PET-CT comparison and otherwise unobtainable optimization of the sensitivity and specificity of the examination. Electronically Signed: Iker Montalvo DO at 19:29 EST ,
== END 2021-10-09 23:59 | disposition home or self-care (01) ==
LOC: ONC 08:06
PROVIDERS: PCP Family Medicine; Referring Provider Internal Medicine Hematology & Oncology; Visit Provider Internal Medicine Hematology & Oncology
DX: C34.90 Malignant neoplasm of unspecified part of unspecified bronchus or lung (principal)
CPT/HCPCS: 78815; A9552

== ENCOUNTER 2021-11-14 08:00 | Outpatient (RCR) | payer SELFPAY | END 2021-11-14 23:59 | disposition home or self-care (01) | LOC: PR 08:00 | PROVIDERS: PCP Family Medicine; Referring Provider Internal Medicine Critical Care Medicine; Visit Provider Internal Medicine Critical Care Medicine | DX: Z00.00 Encounter for general adult medical examination without abnormal findings (principal) ==

== ENCOUNTER 2021-12-12 08:00 | Outpatient (RCR) | payer SELFPAY | END 2021-12-14 23:59 | LOC: PR 08:00 | PROVIDERS: PCP Family Medicine; Referring Provider Internal Medicine Critical Care Medicine; Visit Provider Internal Medicine Critical Care Medicine | DX: Z00.00 Encounter for general adult medical examination without abnormal findings (principal) ==

== ENCOUNTER 2022-01-14 08:00 | Outpatient (RCR) | payer SELFPAY | END 2022-01-14 23:59 | LOC: PR 08:00 | PROVIDERS: PCP Family Medicine; Referring Provider Internal Medicine Critical Care Medicine; Visit Provider Internal Medicine Critical Care Medicine | DX: Z00.00 Encounter for general adult medical examination without abnormal findings (principal) ==

== ENCOUNTER 2022-02-13 08:00 | Outpatient (RCR) | payer SELFPAY | END 2022-02-13 23:59 | LOC: PR 08:00 | PROVIDERS: PCP Family Medicine; Referring Provider Internal Medicine Critical Care Medicine; Visit Provider Internal Medicine Critical Care Medicine | DX: Z00.00 Encounter for general adult medical examination without abnormal findings (principal) ==

== ENCOUNTER 2022-03-13 08:00 | Outpatient (RCR) | payer SELFPAY | END 2022-03-16 23:59 | LOC: PR 08:00 | PROVIDERS: PCP Family Medicine; Referring Provider Internal Medicine Critical Care Medicine; Visit Provider Internal Medicine Critical Care Medicine | DX: Z00.00 Encounter for general adult medical examination without abnormal findings (principal) ==

== ENCOUNTER 2022-04-15 08:00 | Outpatient (RCR) | payer SELFPAY | END 2022-04-16 23:59 | LOC: PR 08:00 | PROVIDERS: PCP Family Medicine; Referring Provider Internal Medicine Critical Care Medicine; Visit Provider Internal Medicine Critical Care Medicine | DX: Z00.00 Encounter for general adult medical examination without abnormal findings (principal) ==

== ENCOUNTER → 2022-04-30 | Outpatient (CLI) | payer MEDICARE, OTHER, SELFPAY ==
--- NOTE | 2022-04-30 09:30 | PET_ITS ---
EXAMINATION: FDG PET-CT INDICATIONS: A 71-year-old male with history of carcinoma of the lung presenting for restaging examination. COMPARISON EXAMINATION: Prior FDG PET study dated 10/09/21 INDEX LESION SIZE SUV INTERPRETATION PERSISTENT: left upper lung, left upper lobe 1.2 comp. to 1.4 (10/09/21) Quantitative criteria for viable neoplasm are not fulfilled PERSISTENT: left hemithorax pleural interface 0.9 comp. to 2.6 (10/09/21) Quantitative criteria for viable neoplasm are not fulfilled PREVIOUS: quantitatively significant left upper lobe hypermetabolic focus Demonstrates metabolic resolution on the current examination TECHNIQUE: Following the intravenous administration of 12.65 mCi of F-18 deoxyglucose via the right antecubital fossa, multiplanar image acquisitions of the neck, chest, abdomen and pelvis to level of mid thigh, obtained at one hour post radiopharmaceutical administration contemporaneously interpreted with the current CT of the neck, chest, abdomen and pelvis, to level of mid thigh, dated 04/30/22 via coregistration and FDG PET study dated 10/09/21 reveals: BLOOD GLUCOSE LEVEL:?? 93 mg/dl?HEIGHT:?65 inches?WEIGHT: 126 lbs. FINDINGS: Head/Neck: There is no evidence of abnormal increased glucose metabolism in the pharyngeal mucosal space, parapharyngeal space, bilateral-lateral and anterior neck, hypopharynx and distribution of the laryngeal structures. The visualized portion of the cerebral cortical-subcortical structures demonstrate symmetric and preserved glucose metabolism. CHEST: Enhanced FDG uptake is redefined in the left upper lung zone generating a calculated maximal standard uptake value of 1.2, compared to 1.4 on the prior examination. Facilitated labeled tracer is redemonstrated in the left upper hemithorax at the pleural interface. The calculated maximal standard uptake value is 0.9, compared to 2.6 on the prior examination. The previously identified left lung hypermetabolic abnormality that revealed a maximal SUV of 4.0 is not visualized on the current examination. Previously defined morphologic-anatomic changes noted on review of CT of the chest dated 10/09/21, are essentially unchanged on the current examination. Abdomen/Pelvis: Normal physiologic distribution of the radiopharmaceutical is apparent in the hepatic (2.9/2.7) and splenic parenchyma, both renal units, bladder and visualized intestinal tract. Review of CT of the abdomen and pelvis dated 10/09/21 demonstrates no significant interval change. Skeletal: Degenerative changes are noted in the cervical, thoracic and lumbar spine without evidence of increased radiopharmaceutical concentration. There are no well-defined sclerotic-lytic changes manifest on review of the appendicular-axial skeletal structures. PET/PET/CT Tumor Base -Thigh Subs IMPRESSION: 1. NEGATIVE EXAMINATION. There is no definitive quantitative scintigraphic evidence of recurrent/viable neoplasm. 2. Enhanced radiopharmaceutical concentration redefined in the left upper lung field does not fulfill quantitative criteria for viable neoplasm. (Brynn et al, Journal of Nuclear Medicine 43:302 P, 2002). 3. Increased FDG uptake redemonstrated in the left hemithorax at the pleural interface does not fulfill quantitative criteria for viable pleural neoplasm. (Kay, et al, Chest 122:1918, 2002). 4. The previously identified quantitatively significant left upper lung hypermetabolic focus is not visualized on the current examination. 5. Overall, compared to the prior FDG PET study dated 10/09/21, there is current absence of defined viable neoplastic disease. Electronic Signature Iker Montalvo D.O. Accurate Quantification of SUVs for this report are calculated using the exclusive [employer]. (U.S. Patent No. 10, 674, 983). Standardization and correction of the FDG SUV metric via [employer] technology allow for vendor non-specific objective quantitative examination comparison and optimization of the sensitivity and specificity of the FDG PET-CT examination. Electronically Signed: Iker Montalvo, at 21:42 EDT ,
== END | disposition home or self-care (01) ==
LOC: ONC 09:04
PROVIDERS: PCP Family Medicine; Referring Provider Internal Medicine Hematology & Oncology; Visit Provider Internal Medicine Hematology & Oncology
DX: C34.12 Malignant neoplasm of upper lobe, left bronchus or lung (principal); C79.51 Secondary malignant neoplasm of bone
CPT/HCPCS: 78815; A9552

== ENCOUNTER 2022-05-15 08:00 | Outpatient (RCR) | payer SELFPAY | END 2022-05-16 23:59 | LOC: PR 08:00 | PROVIDERS: PCP Family Medicine; Referring Provider Internal Medicine Critical Care Medicine; Visit Provider Internal Medicine Critical Care Medicine | DX: Z00.00 Encounter for general adult medical examination without abnormal findings (principal) ==

== ENCOUNTER 2022-06-12 08:00 | Outpatient (RCR) | payer SELFPAY | END 2022-06-16 23:59 | LOC: PR 08:00 | PROVIDERS: PCP Family Medicine; Referring Provider Internal Medicine Critical Care Medicine; Visit Provider Internal Medicine Critical Care Medicine | DX: Z00.00 Encounter for general adult medical examination without abnormal findings (principal) ==

== ENCOUNTER 2022-07-15 08:00 | Outpatient (RCR) | payer SELFPAY | END 2022-07-16 23:59 | LOC: PR 08:00 | PROVIDERS: PCP Family Medicine; Referring Provider Internal Medicine Critical Care Medicine; Visit Provider Internal Medicine Critical Care Medicine | DX: Z00.00 Encounter for general adult medical examination without abnormal findings (principal) ==

== ENCOUNTER 2022-08-14 08:00 | Outpatient (RCR) | payer SELFPAY | END 2022-08-16 23:59 | LOC: PR 08:00 | PROVIDERS: PCP Family Medicine; Referring Provider Internal Medicine Critical Care Medicine; Visit Provider Internal Medicine Critical Care Medicine | DX: Z00.00 Encounter for general adult medical examination without abnormal findings (principal) ==

== ENCOUNTER → 2022-08-20 | Outpatient (CLI) | payer MEDICARE, OTHER, SELFPAY ==
--- NOTE | 2022-08-20 08:30 | PET_ITS ---
EXAMINATION: FDG PET-CT INDICATIONS: A 71-year-old male with a history of primary lung carcinoma presenting for restaging examination. COMPARISON EXAMINATION: Prior FDG PET CT study report dated 04/30/22. INDEX LESION SIZE SUV INTERPRETATION NEW: Right lower hemithorax, right lower lobe 16.7 mm 4.0 Fulfills quantitative criteria for viable neoplasm, histopathologic analysis recommended. NEW: Right middle lung, right middle lobe 15.3 mm 3.1 Fulfills quantitative criteria for viable neoplasm, histopathologic analysis recommended. PERSISTENT: Left upper lung field, left upper lobe 1.0 comp to 1.2, 04/30/22 Quantitative criteria for viable neoplasm are not fulfilled, no definitive interim metabolic change. TECHNIQUE: Following the intravenous administration of 14.36 mCi of F-18 deoxyglucose via the right antecubital fossa, multiplanar image acquisitions of the head, neck, chest, abdomen and pelvis to level of mid-thigh, lower extremities obtained at one hour post radiopharmaceutical administration contemporaneously interpreted with the current CT of the head, neck, chest, abdomen and pelvis to level of mid-thigh, lower extremities dated 08/20/22 via coregistration and prior FDG PET CT study report dated 04/30/22 reveal: SERUM GLUCOSE LEVEL: 131 mg/dl. HEIGHT: 65 inches. WEIGHT: 126 lbs. FINDINGS: Head/Neck: There is no evidence of abnormal increased glucose metabolism in the pharyngeal mucosal space, parapharyngeal space, bilateral-lateral and anterior neck, hypopharynx and distribution of the laryngeal structures. The visualized portion of the cerebral cortical-subcortical structures demonstrate symmetric and preserved glucose metabolism. CHEST: Newly identified increased radiopharmaceutical concentration is noted in the right lower hemithorax pulmonary parenchyma, right lower lobe. The calculated maximum standard uptake value is 4.0. The maximum axial diameter of the metabolic, morphologic abnormality is 16.7 mm. Newly identified increased radiopharmaceutical concentration is noted in the right mid anteromedial lung field presumably the right middle lobe. The calculated maximum standard uptake value is noted to be 3.1. The maximum axial diameter of the metabolic, morphologic abnormality is 15.3 mm. Facilitated radiopharmaceutical concentration is redefined in the left upper hemithorax pulmonary parenchyma, left upper lobe generating a calculated maximum standard uptake value of 1.0 compared to 1.2 defined on the prior examination dated 04/30/22. Accentuated uptake is noted in the descending thoracic extending into the abdominal aorta commensurate with activated leukocytes associated with atherosclerotic plaque formation. Otherwise, the previously defined morphologic-anatomic changes described on the prior FDG PET-CT report dated 04/30/22, are essentially unchanged on the current examination. Abdomen/Pelvis: Normal physiologic distribution of the radiopharmaceutical is apparent in the hepatic (2.8/2.9) and splenic parenchyma, both renal units, bladder and visualized intestinal tract. Diffuse radiopharmaceutical concentration is noted in all four quadrants of the abdomen and pelvis. Pertinent abdomen and pelvis CT findings are as follows. There is atherosclerotic calcification defined in the abdominal aorta without evidence of dilatation-aneurysm formation. Abdominal-pelvic arterial calcification is defined. Colonic diverticula are defined without evidence of diverticulitis. Bilateral inguinal soft tissue densities with fatty hilus are nonglucose avid. Skeletal: Degenerative changes are noted in the cervical, thoracic and lumbar spine. A grade 1 anterolisthesis is noted in the L4-L5 vertebra. PET/PET/CT Tumor Base -Thigh Subs IMPRESSION: 1. The increase in radiopharmaceutical concentration newly apparent in the right lower posterior and right mid anteromedial lung zones fulfill quantitative criteria for viable neoplasm with single point technique. Histopathologic analysis should be considered. 2. Redefined increased glucose metabolism noted in the left upper lung field, left upper lobe does not fulfill quantitative criteria for viable neoplasm. (Brynn et al, Journal of Nuclear Medicine 43:302 P, 2002). 3. Overall, compared to the prior FDG PET CT study dated 04/30/22, newly identified increased radiopharmaceutical concentration noted in both the right middle and right lower lobes may warrant histopathologic investigation secondary to the quantitative degree of uptake. Electronic Signature Iker Montalvo D.O. Accurate Quantification of SUVs for this report are calculated using the exclusive [employer]. (U.S. Patent No. 10, 674, 983 B2 [phone] [place] patent [phone]). Standardization and correction of the FDG SUV metric via [employer] technology allow for vendor non-specific objective quantitative examination comparison and optimization of the sensitivity and specificity of the FDG PET-CT examination. Electronically Signed: Iker Montlavo, at 13:23 EST ,
== END | disposition home or self-care (01) ==
PROVIDERS: PCP Family Medicine; Referring Provider Internal Medicine Hematology & Oncology; Visit Provider Internal Medicine Hematology & Oncology
DX: C34.12 Malignant neoplasm of upper lobe, left bronchus or lung (principal); C79.51 Secondary malignant neoplasm of bone
CPT/HCPCS: 78815; A9552

== ENCOUNTER 2022-09-16 08:00 | Outpatient (RCR) | payer SELFPAY | END 2022-09-16 23:59 | LOC: PR 08:00 | PROVIDERS: PCP Family Medicine; Visit Provider Internal Medicine Critical Care Medicine | DX: Z00.00 Encounter for general adult medical examination without abnormal findings (principal) ==

== ENCOUNTER 2022-10-14 08:00 | Outpatient (RCR) | payer SELFPAY | END 2022-10-14 23:59 | LOC: PR 08:00 | PROVIDERS: PCP Family Medicine; Visit Provider Internal Medicine Critical Care Medicine | DX: Z00.00 Encounter for general adult medical examination without abnormal findings (principal) ==

== ENCOUNTER 2022-11-13 08:00 | Outpatient (RCR) | payer SELFPAY | END 2022-11-14 23:59 | LOC: PR 08:00 | PROVIDERS: PCP Family Medicine; Visit Provider Internal Medicine Critical Care Medicine | DX: Z00.00 Encounter for general adult medical examination without abnormal findings (principal) ==

== ENCOUNTER 2022-12-11 08:00 | Outpatient (RCR) | payer SELFPAY | END 2022-12-14 23:59 | LOC: PR 08:00 | PROVIDERS: PCP Family Medicine; Visit Provider Internal Medicine Critical Care Medicine | DX: Z00.00 Encounter for general adult medical examination without abnormal findings (principal) ==

== ENCOUNTER 2023-01-13 08:00 | Outpatient (RCR) | payer MEDICARE, OTHER, SELFPAY | END 2023-01-14 23:59 | LOC: PR 08:00 | PROVIDERS: PCP Family Medicine; Referring Provider Internal Medicine Critical Care Medicine; Visit Provider Internal Medicine Critical Care Medicine | DX: Z00.00 Encounter for general adult medical examination without abnormal findings (principal) ==

== ENCOUNTER 2023-02-12 08:00 | Outpatient (RCR) | payer MEDICARE, OTHER, SELFPAY | END 2023-02-13 23:59 | LOC: PR 08:00 | PROVIDERS: PCP Family Medicine; Referring Provider Internal Medicine Critical Care Medicine; Visit Provider Internal Medicine Critical Care Medicine | DX: Z00.00 Encounter for general adult medical examination without abnormal findings (principal) ==

== ENCOUNTER 2023-03-12 08:00 | Outpatient (RCR) | payer MEDICARE, OTHER, SELFPAY | END 2023-03-16 23:59 | LOC: PR 08:00 | PROVIDERS: PCP Family Medicine; Referring Provider Internal Medicine Critical Care Medicine; Visit Provider Internal Medicine Critical Care Medicine | DX: Z00.00 Encounter for general adult medical examination without abnormal findings (principal) ==

== ENCOUNTER 2023-04-16 08:00 | Outpatient (RCR) | payer SELFPAY | END 2023-04-16 23:59 | LOC: PR 08:00 | PROVIDERS: PCP Family Medicine; Referring Provider Internal Medicine Critical Care Medicine; Visit Provider Internal Medicine Critical Care Medicine | DX: Z00.00 Encounter for general adult medical examination without abnormal findings (principal) ==

== ENCOUNTER 2023-05-14 08:00 | Outpatient (RCR) | payer MEDICARE, OTHER, SELFPAY | END 2023-05-16 23:59 | LOC: PR 08:00 | PROVIDERS: PCP Family Medicine; Referring Provider Internal Medicine Critical Care Medicine; Visit Provider Internal Medicine Critical Care Medicine | DX: Z00.00 Encounter for general adult medical examination without abnormal findings (principal) ==

== ENCOUNTER → 2023-06-02 | Outpatient (CLI) | payer MEDICARE, OTHER, SELFPAY | END | disposition home or self-care (01) | PROVIDERS: PCP Family Medicine; Referring Provider Internal Medicine Hematology & Oncology; Visit Provider Internal Medicine Hematology & Oncology | DX: C34.90 Malignant neoplasm of unspecified part of unspecified bronchus or lung (principal); C79.51 Secondary malignant neoplasm of bone ==

== ENCOUNTER 2023-06-16 08:00 | Outpatient (RCR) | payer SELFPAY ==
--- NOTE | 2023-06-02 09:00 | PET_ITS ---
EXAMINATION: FDG PET-CT INDICATIONS: A 72-year-old male with a history of primary lung carcinoma presenting for restaging examination. COMPARISON EXAMINATION: Prior FDG PET-CT report dated 08/20/22. INDEX LESION SIZE SUV INTERPRETATION PERSISTENT: Left upper lung field, left upper lobe 1.4 comp to 1.0, 08/20/22 Quantitative criteria for viable neoplasm are not fulfilled, no definitive interim metabolic change. PREVIOUS: Right lower and right middle lobe hypermetabolic foci Demonstrate metabolic resolution on the current examination. TECHNIQUE: Following the intravenous administration of 13.87 mCi of F-18 deoxyglucose via the right antecubital fossa, multiplanar image acquisitions of the head, neck, chest, abdomen and pelvis to level of mid-thigh, lower extremities obtained at one hour post radiopharmaceutical administration contemporaneously interpreted with the current CT of the head, neck, chest, abdomen and pelvis to level of mid-thigh, lower extremities dated 06/02/23 via coregistration and prior FDG PET-CT report dated 08/20/22 reveal: SERUM GLUCOSE LEVEL: 139 mg/dl. HEIGHT: 65 inches. WEIGHT: 129 lbs. FINDINGS: Head/Neck: There is no evidence of abnormal increased glucose metabolism in the pharyngeal mucosal space, parapharyngeal space, bilateral-lateral and anterior neck, hypopharynx and distribution of the laryngeal structures. The visualized portion of the cerebral cortical-subcortical structures demonstrate symmetric and preserved glucose metabolism. CHEST: Facilitated FDG concentration remains apparent in the left upper lung field, left upper lobe. The current calculated standard uptake value is 1.4 compared to 1.0. Quantitative criteria for viable neoplasm are not fulfilled. The prior defined right lung abnormalities are not visualized on the current examination. Otherwise the previously defined morphologic-anatomic changes described on the prior FDG PET-CT report dated 08/20/22, are essentially unchanged on the current examination. Abdomen/Pelvis: Normal physiologic distribution of the radiopharmaceutical is apparent in the hepatic (2.0/2.8) and splenic parenchyma, both renal units, bladder and visualized intestinal tract. Diffuse radiopharmaceutical concentration is noted in all four quadrants of the abdomen and pelvis. Anatomic findings described on the prior FDG PET-CT report dated 08/20/22, demonstrate no interval definitive change. Skeletal: Degenerative changes are noted in the cervical, thoracic and lumbar spine. PET/PET/CT Tumor Base -Thigh Subs IMPRESSION: 1. NEGATIVE EXAMINATION. There is no definitive quantitative scintigraphic evidence of recurrent-residual viable metastatic neoplasm. 2. The persistent increased tracer uptake noted in the left upper lung field, left upper lobe does not fulfill quantitative criteria for malignant transformation. (Brynn et al, Journal of Nuclear Medicine 43:302 P, 2001). 3. There is interim metabolic resolution of the prior defined right lower and right middle lobe hypermetabolic foci. 4. Overall, compared to the prior FDG PET CT study dated 08/20/22, there is current absence of defined viable neoplastic disease. Electronic Signature Iker Montalvo D.O. Accurate Quantification of SUVs for this report are calculated using the exclusive [employer], (U.S. Patent No. [id number] [id number] 983 B2 [phone] patent [phone] ). Standardization and correction of the FDG SUV metric exclusively available with [employer] intellectual property, allow for vendor non-specific objective quantitative sequential FDG PET-CT comparison and otherwise unobtainable optimization of the sensitivity and specificity of the examination. [email or web address] Electronically Signed: Iker Montalvo DO at 22:40 EDT ,
== END 2023-06-16 23:59 ==
LOC: PR 08:00
PROVIDERS: PCP Family Medicine; Referring Provider Internal Medicine Critical Care Medicine; Visit Provider Internal Medicine Critical Care Medicine
DX: Z00.00 Encounter for general adult medical examination without abnormal findings (principal)
CPT/HCPCS: 78815; A9552

== ENCOUNTER 2023-07-16 08:00 | Outpatient (RCR) | payer SELFPAY | END 2023-07-16 23:59 | LOC: PR 08:00 | PROVIDERS: PCP Family Medicine; Referring Provider Internal Medicine Critical Care Medicine; Visit Provider Internal Medicine Critical Care Medicine | DX: Z00.00 Encounter for general adult medical examination without abnormal findings (principal) ==

== ENCOUNTER 2023-08-06 08:00 | Outpatient (RCR) | payer SELFPAY | END 2023-08-16 23:59 | LOC: PR 08:00 | PROVIDERS: PCP Family Medicine; Referring Provider Internal Medicine Critical Care Medicine; Visit Provider Internal Medicine Critical Care Medicine | DX: Z00.00 Encounter for general adult medical examination without abnormal findings (principal) ==

== ENCOUNTER → 2023-08-20 | Outpatient (CLI) | payer MEDICARE, OTHER, SELFPAY ==
--- NOTE | 2023-08-20 08:42 | RAD_ITS ---
STUDY: X-RAY - LEFT FEMUR REASON FOR STUDY: Male, 72 years old. FOREIGN BODY- BROKEN NEEDLE FROM INJECTION TECHNIQUE: 4 views of the left femur. COMPARISON: None. FINDINGS: Normal visualized femur. There is no demonstrated fracture or destructive process. There are atherosclerotic vascular calcifications. Normal visualized soft tissue structure. There is no radiopaque or metallic foreign body. RAD/Femur Min 2 Views IMPRESSION: No radiopaque or metallic foreign body. Electronically Signed: Denis Raza MD at 15:58 EST ,
== END | disposition home or self-care (01) ==
LOC: MTRAD 07:54
PROVIDERS: PCP Family Medicine; Referring Provider Physician Assistant; Visit Provider Physician Assistant
DX: L92.3 Foreign body granuloma of the skin and subcutaneous tissue (principal)
CPT/HCPCS: 73552

== ENCOUNTER 2023-09-15 08:00 | Outpatient (RCR) | payer SELFPAY | END 2023-09-16 23:59 | LOC: PR 08:00 | PROVIDERS: PCP Family Medicine; Referring Provider Internal Medicine Critical Care Medicine; Visit Provider Internal Medicine Critical Care Medicine | DX: Z00.00 Encounter for general adult medical examination without abnormal findings (principal) ==

== ENCOUNTER 2023-09-15 13:04 | Emergency (ER) | payer MEDICARE, OTHER, SELFPAY ==
[2023-09-15 13:04] VITALS: BP 144/111; PULSE 85; RESP 18; TEMP 35.8; O2SAT 94; BMI 20.7
--- NOTE | 2023-09-15 13:35 | RAD_ITS ---
STUDY: X-RAY CHEST REASON FOR EXAM: Male, 72 years old. SOB TECHNIQUE: Single AP portable view of the chest. COMPARISON: Comparison is made with prior study dated April 29, 2021. FINDINGS: There is hyperinflation of the lungs consistent with chronic obstructive lung disease (COPD). There is no demonstrated pleural abnormality. Normal size heart. A left-sided unipolar pacemaker is seen. Normal mediastinum and carina. There is prominence of the pulmonary hilar arteries without peripheral pulmonary vascular congestion, suggesting pulmonary hypertension. There is atherosclerotic calcification of the aortic arch with tortuosity. There are diffuse degenerative changes of the visualized thoracic spine. Normal visualized ribs, clavicles, and shoulders. There is no demonstrated abnormality of the visualized soft tissue structures of the upper abdomen. RAD/Chest 1 View (Portable) IMPRESSION: Hyperinflation. Findings suggestive of emphysematous changes. Electronically Signed: Sebastien Zheng MD at 14:37 EST ,
[2023-09-15 14:01] LABS: Absolute Lymphocyte Count 0.73 X10^3/uL (0.83-4.51); Absolute Neutrophil Count 3.1 X10^3/uL (2.0-7.7); Basophil# 0.02 X10^3/uL; Basophil% 0.4 % (0-1); Eosinophil# 0.11 X10^3/uL; Eosinophils% 2.4 % (0-5); Hematocrit 29.1 % (40-54); Hemoglobin 9.3 g/dL (13.0-16.5); Lymphocyte # 0.73 X10^3/ul (0.83-4.51); Lymphocyte % 15.7 % (19-41); Mean Corpuscular Hgb 33.1 pg (27.0-32.0); Mean Corpuscular Volume 103.6 fL (80-94); Mean Platelet Vol. 9.2 fl (6.2-12.0); Monocyte# 0.65 X10^3/uL; NRBC Flagged by Analyzer 0 % (0-5); Neutrophil # 3.12 X10^3/uL (2.7-7.7); Neutrophil % 67.1 % (47-70); Platelet Count 161 K/mm3 (150-450); RBC Distribution Width CV 12.6 % (11.6-14.6); RBC Distribution Width SD 47.8 fl (35.1-43.9); Red Blood Count 2.81 M/mm3 (4.6-6.2); White Blood Count 4.7 K/mm3 (4.4-11.0)
[2023-09-15 14:14] LABS: Anion Gap 4 (5-15); BUN 28 mg/dL (7-18); BUN/Creat Ratio 23.3 RATIO (10-20); Calcium,Total 9.6 mg/dL (8.5-10.1); Chloride 107 mmol/L (98-107); EST Glomerular Filtration Rate 63 mL/min (>60); Est Glom Filt Rate - Afr Amer 76 mL/min (>60); Estimated Creatinine Clearance 44.62 ml/min; Glucose 109 mg/dL (74-106); Sodium Level 142 mmol/L (136-145)
[2023-09-15 16:23] VITALS: RESP 17; O2SAT 100
[2023-09-15 16:26] VITALS: BP 180/56; PULSE 80; RESP 21; O2SAT 100
--- NOTE | 2023-09-15 16:31 | EDS_ITS ---
HPI History of Present Illness Chief Complaint: Shortness of Breath Informant: patient and spouse/S.O. Narrative Narrative: Patient presents with dyspnea. Patient has been having increased dyspnea over his baseline for the last 2 maybe 3 weeks. He denies fevers chills or muscle aches. He has fallen about 3 times during this. His last episode was 2 days ago. He has just gotten weak causing him to fall. He was wearing his oxygen all the time and wears 2 L 24 hours a day. He is not on blood thinners other than aspirin. He denies hitting his head. He states he is bruised himself but does not really hurt himself. He has been coughing more but no real change in sputum that he knows of. No chest pain other than soreness near his right shoulder where he hit when he fell. He does have COPD. He states the breathing treatments helped but his symptoms come back. Denies swelling or weight gain. Although it was not mentioned, the patient's chart also records lung cancer and an ejection fraction of about 15%. Although that was in 2017. He does have a pacer ICD in the left upper chest. [facility] Medical History (Updated 09/15/23 @ 18:[address] Palmer Franco MD) Anemia Arthritis Atherosclerotic heart disease of [place] coronary artery without angina pectoris CHF (congestive heart failure), NYHA class I Debility GERD (gastroesophageal reflux disease) Hyperlipidemia Hypothyroidism Lesion of pelvic bone Lung cancer Nonischemic cardiomyopathy Pneumothorax after biopsy Psoriatic arthritis PVD (peripheral vascular disease) Secondary pulmonary arterial hypertension Severe left ventricular systolic dysfunction Stage 3 severe COPD by GOLD classification Home Medications multivitamin 1 ea PO DAILY supplement 08/27/16 [History Last Taken 12/26/19] atezolizumab 1,200 mg/20 mL (60 mg/mL) intravenous solution (Tecentriq) 60 mg IV UD CANCER 08/27/18 [History Last Taken 2 Weeks Ago ~12/12/19] cholecalciferol (vitamin D3) 25 mcg (1,000 unit) tablet 1,000 unit PO BID SUPPLEMENT 12/01/18 [History Last Taken 12/26/19] omeprazole 40 mg capsule,delayed release 40 mg PO DAILY GERD 12/01/18 [History Last Taken 12/26/19] aspirin 81 mg tablet,delayed release (Adult Aspirin Regimen) [facility] 03/28/19 [History Last Taken 12/25/19] levothyroxine 125 mcg tablet 125 mcg PO DAILY thyroid 10/11/19 [History Last Taken 12/26/19] sodium chloride 1 gram tablet 1,000 mg PO BID 10/15/20 [History Last Taken Unknown] hydroxychloroquine 200 mg tablet 200 mg PO DAILY ARTHRITIS 04/15/21 [History Last Taken Unknown] magnesium oxide 400 mg PO DAILY 04/15/21 [History Last Taken Unknown] albuterol sulfate 2.5 mg/3 mL (0.083 %) solution for nebulization 2.5 mg (3 mL) inhalation Q4H PRN #25 vials 04/29/21 [Rx Last Taken Unknown] Disability Placard #1 ea 08/02/21 [Rx Last Taken Unknown] cetirizine 10 mg capsule (Zyrtec) 10 mg PO DAILY PRN 11/05/21 [History Last Taken Unknown] triamcinolone acetonide 55 mcg nasal spray aerosol (Nasacort) 1 spray intranasal DAILY 04/22/22 [History Last Taken Unknown] furosemide 40 mg tablet 40 mg PO QAM FLUID #90 tabs 10/13/22 [Rx Last Taken Unknown] fluticasone furoate 200 mcg-vilanterol 25 mcg/dose inhalation powder (Breo Ellipta) 1 inh inhalation QDAY #60 ea 02/23/23 [Rx Last Taken Unknown] losartan 25 mg tablet See Rx Instructions .Route .COMPLEX #90 tabs 03/23/23 [Rx Last Taken Unknown] potassium chloride 20 mEq tablet,extended release(part/cryst) 20 meq PO BID supplement #180 tabs 03/30/23 [Rx Last Taken Unknown] prednisone 10 mg tablet 10 mg PO QDAY #30 tabs 06/12/23 [Rx Last Taken Unknown] carvedilol 6.25 mg tablet 6.25 mg PO BID HEART #180 tabs 08/24/23 [Rx Last Taken Unknown] albuterol sulfate 90 mcg/actuation aerosol inhaler 2 inh inhalation Q4H PRN PRN Wheezing #18 grams 08/27/23 [Rx Last Taken Unknown] atorvastatin 40 mg tablet 40 mg PO QHS Patient wants delivered to his home #90 tabs 08/31/23 [Rx Last Taken Unknown] umeclidinium 62.5 mcg/actuation blister powder for inhalation 1 inh inhalation DAILY #30 ea 09/07/23 [Rx Last Taken Unknown] doxycycline monohydrate 100 mg capsule 100 mg PO BID #20 CAPSULES 09/15/23 [Rx Last Taken Unknown] prednisone 20 mg tablet 60 mg (3 x 20 mg) PO DAILY #15 TABLETS 09/15/23 [Rx Last Taken Unknown] Allergy/AdvReac Type Severity Reaction Status Date / Time No Known Allergies Allergy Verified 04/23/23 08:56 Family History Mother Heart disease Brother CVA (cerebral vascular accident) Father Cancer brain Grandmother Diabetes Surgical History History of appendectomy (~12/26/19) Implantable cardioverter-defibrillator (ICD) in situ (12/27/16) Social History Smoking Status: Former smoker how long ago did patient quit smokin, 1.5p/day second hand exposure: Yes alcohol intake: never substance use type: does not use caffeine: Yes Type: coffee Number of servings: 2 what type of physical activity do you participate in: walking frequency: 3-4 times per week ROS ROS ED ROS Narrative A complete review of systems was performed and is negative except as documented in the history of present illness. Some specific details below. Constitutional: No recent fevers or chills. EYE: No discharge, visual complaints, or pain. ENT: No difficulty swallowing. No swelling. No pain. No reflux symptoms. CV: See history of present illness. Respiratory: See history of present illness. GI: No abdominal pain. No nausea vomiting diarrhea. No blood in stool. : No frequency dysuria or hematuria. Musculoskeletal: No recent trauma. No pains. No swelling. Skin: No rash. Nondiaphoretic. Neuro: No weakness or numbness. Endocrine: No polyuria or polydipsia. EXAM Physical Exam Narrative Exam Narrative: CONSTITUTIONAL: Patient is nontoxic in appearance. The patient looks comfortable. Work of breathing looks a bit increased but he is able to carry on a conversation.. HEENT: No notable trauma. Mucous membranes moist. EYES: No conjunctival injection. No proptosis. NECK:No JVD. No stridor. CARDIOVASCULAR: Regular rate. Regular rhythm. No notable murmur. No JVD. RESPIRATORY: No respiratory distress. But breathing is mildly labored. He is not wheezing but he is also not moving much air at all. Pacer/ICD is palpable in left upper chest. He has some none distinct bruising near the right shoulder but denies pain there. GASTROINTESTINAL: Not distended. Bowel sounds are normal. No tenderness. No guarding. No rebound. No palpable mass. No bruit is heard. GENITOURINARY: No tenderness over the bladder. No CVA tenderness. MUSCULOSKELETAL: Atraumatic. No peripheral edema. No cord. No tenderness along the deep venous system. No asymmetry. No distended veins. Abrasions on his kn ees from earlier falls. NEUROLOGICAL: Patient is alert and appropriate. No focal deficit noted. SKIN: No noted rashes. No diaphoresis. But he does have some abrasions on elbows and knees. PSYCHIATRIC: Patient is calm. Mood is appropriate. Const Vital Signs: 09/15/23 13:04 09/15/23 16:23 09/15/23 16:25 Temperature 96.4 F L Temperature Source Temporal Pulse Rate 85 Respiratory Rate 18 17 Respiratory Effort Respiratory Depth Respiratory Pattern Blood Pressure 144/111 H Blood Pressure Mean 122 Pulse Ox 94 100 Oxygen Delivery Method Room Air Nasal Cannula Nasal Cannula Oxygen Flow Rate (L/min) 3 3 09/15/23 16:26 09/15/23 16:26 09/15/23 17:14 Temperature Temperature Source Pulse Rate 80 71 Respiratory Rate 21 H 16 Respiratory Effort Short of Breath Respiratory Depth Shallow Respiratory Pattern Tachypnea Normal Blood Pressure 180/56 H Blood Pressure Mean 97 Pulse Ox 100 Oxygen Delivery Method Nasal Cannula Nasal Cannula Oxygen Flow Rate (L/min) 3 3 MDM MDM MDM Narrative Medical decision making narrative: Bradycardia shows hyperexpansion consistent with his COPD. I see is ICD in place. No acute infiltrate or pneumothorax. Final readings are similar. Patient CBC shows chronic baseline anemia that is unchanged. Platelets and white count are normal. Patient's electrolytes show no marked abnormalities. There is slightly high BUN. does complain that he does not drink enough. But no marked dehydration. Patient's troponin is negative. Patient's BNP is not significantly. I rechecked the patient. He is actually moving air now. He is feeling better. Saturations are 100% on his oxygen. I discussed options with him and his . They would prefer to go home. We will try him on doxycycline and steroids. This has been successful before. If he is worsening they will come back. I think this is a reasonable option. This would avoid more exposures to viral and other illnesses. They state they were very concerned being in triage and would be more concerned being admitted for this reason. Lab Data Labs: Laboratory Results - last 24 hr 09/15/23 13:45 WBC 4.7 RBC 2.81 L Hgb 9.3 L Hct 29.1 L MCV 103.6 H MCH 33.1 H MCHC 32.0 RDW Std Deviation 47.8 H RDW Coeff of Sydni 12.6 Plt Count 161 MPV 9.2 Immature Gran % (Auto) 0.400 Neut % (Auto) 67.1 Lymph % (Auto) 15.7 L [place] % (Auto) 14.0 H Eos % (Auto) 2.4 Baso % (Auto) 0.4 Absolute Neuts (auto) 3.1 Absolute Lymphs (auto) 0.73 L Nucleated RBC % 0 Sodium 142 Potassium 4.0 Chloride 107 Carbon Dioxide 31.0 Anion Gap 4 L BUN 28 H Creatinine 1.20 Estim Creat Clear Calc 44.62 Est GFR (MDRD) Af Amer 76 Est GFR (MDRD) Non-Af 63 BUN/Creatinine Ratio 23.3 H Glucose 109 H Calcium 9.6 Troponin I High Sens 37 B-Natriuretic Peptide 184.7 H Radiography Diagnostic Testing: Clinical Impression(s) from Imaging Studies Chest X-Ray 09/15/23 13:35 IMPRESSION: Hyperinflation. Findings suggestive of emphysematous changes. Electronically Signed: Sebastien Zheng MD at 14:37 EST , Discharge Plan Triage Chief Complaint: Shortness of Breath ED Provider: Palmer Franco Dx/Rx/DC Orders Clinical Impression: COPD with acute exacerbation Instructions: ED COPD Flare Prescriptions: New prednisone 20 mg tablet 60 mg PO DAILY Qty: 15 0RF doxycycline monohydrate 100 mg capsule 100 mg PO BID Qty: 20 0RF No Action aspirin [Adult Aspirin Regimen] 81 mg tablet,delayed release (DR/EC) 81 mg PO QODAY levothyroxine 125 mcg tablet 125 mcg PO DAILY sodium chloride 1 gram tablet 1,000 mg PO BID Patient Comments: TAKE 1 TABLET BY MOUTH TWICE A DAY magnesium oxide 400 mg magnesium tablet 400 mg PO DAILY (DME) Disability Placard See Rx Instructions .Route .MEDSUPPLY Qty: 1 0RF Rx Instructions: Expires 08/02/2026 Zyrtec 10 mg capsule 10 mg PO DAILY PRN triamcinolone acetonide [Nasacort] 55 mcg aerosol,spray 1 spray intranasal DAILY Rx Instructions: administer into each nostril multivitamin 1 EACH tablet 1 ea PO DAILY Patient Comments: vitamin supplement hydroxychloroquine 200 mg tablet 200 mg PO DAILY Patient Comments: arthritis omeprazole 40 MG capsule,delayed release(DR/EC) 40 mg PO DAILY cholecalciferol (vitamin D3) 1,000 UNIT tablet 1,000 unit PO BID albuterol sulfate 2.5 mg /3 mL (0.083 %) solution for nebulization 2.5 mg inhalation Q4H PRN Qty: 25 0RF Rx Instructions: Use q4 hours and PRN for wheezing Tecentriq 1,200 mg/20 mL (60 mg/mL) solution 60 mg IV UD Hold Instructions: pending biopsy Patient Comments: Per Dr. Murcia Rx Instructions: Per Dr. Murcia furosemide 40 mg tablet 40 mg PO QAM Qty: 90 3RF fluticasone furoate-vilanterol [Breo Ellipta] 200-25 mcg/dose blister with device 1 inh inhalation QDAY Qty: 60 6RF Rx Instructions: after inhalation, rinse mouth with water and spit out; do not swallow losartan 25 mg tablet See Rx Instructions .ROUTE .COMPLEX Qty: 90 3RF Dose Instruction: TAKE 1 TABLET BY MOUTH EVERY DAY Rx Instructions: TAKE 1 TABLET BY MOUTH EVERY DAY potassium chloride 20 mEq tablet,ER particles/crystals 20 meq PO BID Qty: 180 3RF prednisone 10 mg tablet 10 mg PO QDAY Qty: 30 0RF Rx Instructions: take 4 tabs for three days, then 3 tabs for three days, then 2 tabs for three days, then 1 tab for 3 days carvedilol 6.25 mg tablet 6.25 mg PO BID Qty: 180 3RF albuterol sulfate 90 mcg/actuation HFA aerosol inhaler 2 inh INHALATION Q4H PRN PRN (Reason: Wheezing) Qty: 18 6RF atorvastatin 40 mg tablet 40 mg PO QHS Qty: 90 3RF umeclidinium 62.5 mcg/actuation blister with device 1 inh inhalation DAILY Qty: 30 6RF Primary Care Provider: Clay Warren Referrals: Clovis Rodríguez MD [Med Staff - Active Staff] - 3-5 Days Clay Warren MD [Primary Care Provider] - Disposition Disposition: Home, Self Care
[2023-09-15] MEDS: MethylPREDNISolone 125 MG/2 ML Vial IV (16:36)
[2023-09-15 17:07] LABS: BNP,B-Type NATRIURETIC PEPTIDE 184.7 pg/mL (0-100)
[2023-09-15 17:13] LABS: Troponin-I HS 37 pg/mL (3.0-78.0)
[2023-09-15] MEDS: Albuterol 2.5 MG/3 ML VIAL.NEB. INHALATION (17:13)
[2023-09-15] MEDS: Ipratropium/Albuterol Sulfate 3 ML AMPUL.NEB INHALATION (17:13)
[2023-09-15 17:14] VITALS: PULSE 71; RESP 16
[2023-09-15] MEDS: predniSONE 20 MG Tablet 60 MG PO (18:24)
[2023-09-15] MEDS: Doxycycline 100 MG CAPSULE PO (18:24)
[2023-09-15 18:30] VITALS: BP 161/53; PULSE 74; RESP 12; O2SAT 98
== END 2023-09-15 18:35 | disposition home or self-care (01) ==
PROVIDERS: Emergency Provider Emergency Medicine; PCP Family Medicine; Visit Provider Emergency Medicine
DX: I73.9 Peripheral vascular disease, unspecified (principal); Z87.891 Personal history of nicotine dependence; R00.1 Bradycardia, unspecified; Z95.810 Presence of automatic (implantable) cardiac defibrillator; Z79.82 Long term (current) use of aspirin; K21.9 Gastro-esophageal reflux disease without esophagitis; I25.10 Atherosclerotic heart disease of native coronary artery without angina pectoris; E03.9 Hypothyroidism, unspecified; E78.5 Hyperlipidemia, unspecified; Z85.118 Personal history of other malignant neoplasm of bronchus and lung; R06.02 Shortness of breath
CPT/HCPCS: 71045; 80048; 83880; 84484; 85025; 93005; 94760; 96374; 99285; A4216

== ENCOUNTER 2023-09-22 08:15 | Outpatient (CLI) | payer MEDICARE, OTHER, SELFPAY ==
--- NOTE | 2023-09-22 08:30 | PET_ITS ---
EXAMINATION: FDG PET/CT ? INDICATIONS: 72-year-old male with a history of primary lung carcinoma, presenting for restaging examination. ? COMPARISON EXAMINATION: FDG-PET CT study dated 06/02/2023. ? INDEX LESION SIZE SUV INTERPRETATION Left upper lung field, left upper lobe ? 1.2 compared to 1.4, 06/02/2023 Quantitative criteria for viable neoplasm are not fulfilled, no definitive interim metabolic change ? NON-INDEX LESION ? ? ? NEW Right upper lateral chest wall-rib ? ? Most consistent with trauma-fracture ? TECHNIQUE: Following the intravenous administration of 12.29 mCi of F-18 deoxyglucose via the left upper extremity, multiplanar image acquisitions of the head, neck, chest, abdomen and pelvis to the level of the midthigh, obtained at one-hour post radiopharmaceutical administration contemporaneously interpreted with the current CT of the chest, abdomen and pelvis dated 09/22/2023 and prior FDG-PET CT study dated 06/02/2023 via coregistration reveal: ? SERUM GLUCOSE LEVEL:? 92 mg/dL? HEIGHT:?? 65 inches WEIGHT:?? 130 pounds ? FINDINGS: ? HEAD/NECK:? There is no evidence of abnormal increased glucose metabolism in the pharyngeal mucosal space, parapharyngeal space, oropharynx, bilateral-lateral and anterior neck, hypopharynx and distribution of the larynx. Prominent uptake is noted in the nasopharynx associated with longus capitis musculature, most consistent with muscle tension artifact. ? The visualized portion of the cerebral cortical-subcortical structures demonstrate symmetric and preserved glucose metabolism. ? CHEST:? Facilitated uptake is redefined in the left upper lung field, left upper lobe generating a current calculated standard uptake value of 1.2 compared to 1.4. There is visualized radiopharmaceutical concentration noted in the left ventricular myocardium, consistent with the [place].? ? CT of the chest demonstrates the following anatomic characteristics: On review of CT of the chest report, there is no definitive interval change compared to the study dated 06/02/2023. ? ABDOMEN/PELVIS:? Normal physiologic distribution of the radiopharmaceutical is identified in the hepatic (3.5/2.0) and splenic parenchyma, both renal units, urinary bladder, and visualized intestinal tract. ? CT of the abdomen and pelvis is remarkable for the following: On review of CT of the chest report, there is no definitive interval change compared to the study dated 06/02/2023. ? SKELETAL:? Newly identified uptake is noted in the right anterolateral chest wall-third rib, which appears to correspond to trauma-fracture. ? Degenerative changes defined in the thoracic and lumbar spine demonstrate no evidence of increased glucose metabolism. There are no sclerotic, mixed sclerotic-lytic, or primarily lytic changes defined in the axial skeletal structures with evidence of increased FDG uptake. ? PET/PET/CT Tumor Base -Thigh Subs IMPRESSION: 1. NEGATIVE EXAMINATION. There is no definitive quantitatively significant scintigraphic evidence of recurrent-metastatic viable neoplasm. 2. Enhanced tracer concentration noted in the left upper lung field, left upper lobe does not fulfill quantitative criteria for malignant transformation. (Brynn et al, Journal of Nuclear Medicine 31:1950, 1990). 3. Facilitated uptake identified in the right upper anterolateral chest wall-rib likely represents activated leukocytes associated with trauma-fracture. 4. Overall, compared to the prior FDG-PET CT study dated 06/02/2023, there is current and continued absence of defined viable neoplastic disease. Electronic Signature Iker Montalvo D.O. Accurate Quantification of SUVs for this report are calculated using the exclusive [employer]. ([place]. Patent No. [id number] [id number] [phone] B2 [phone] [place] patent [id number] [id number] [phone]). Standardization and correction of the FDG SUV metric via [employer] technology allow for vendor non-specific objective quantitative examination comparison and optimization of the sensitivity and specificity of the FDG PET-CT examination. . [email or web address] Electronically Signed: Iker Montalvo DO at 20:49 EST ,
== END 2023-09-22 23:59 | disposition home or self-care (01) ==
PROVIDERS: PCP Family Medicine; Referring Provider Internal Medicine Hematology & Oncology; Visit Provider Internal Medicine Hematology & Oncology
DX: C34.12 Malignant neoplasm of upper lobe, left bronchus or lung (principal)
CPT/HCPCS: 78815; A9552

== ENCOUNTER 2023-09-29 08:00 | Outpatient (RCR) | payer SELFPAY | END 2023-10-15 23:59 | LOC: PR 08:00 | PROVIDERS: PCP Family Medicine; Referring Provider Internal Medicine Critical Care Medicine; Visit Provider Internal Medicine Critical Care Medicine | DX: Z00.00 Encounter for general adult medical examination without abnormal findings (principal) ==

== ENCOUNTER 2023-10-21 11:23 | Observation (INO) | payer MEDICARE, OTHER, SELFPAY ==
[2023-10-21] VITALS (12 sets, daily range): BP systolic 103–133; BP diastolic 39–64; PULSE 84–126; RESP 12–25; TEMP 36.3–37.1; O2SAT 86–100; BMI 21.4; BMI 20.7
--- NOTE | 2023-10-21 11:37 | EKG12_ITS ---
Test Reason : Blood Pressure : / mmHG Vent. Rate : 101 BPM Atrial Rate : 101 BPM P-R Int : 240 ms QRS Dur : 102 ms QT Int : 362 ms P-R-T Axes : 093 -05 027 degrees QTc Int : 469 ms Sinus tachycardia with 1st degree A-V block with occasional Premature ventricular complexes Low voltage QRS Incomplete right bundle branch block Nonspecific ST abnormality Abnormal ECG Confirmed by Hany Kennedy ([id number]), film and video editor REAGAN LYNNE ([id number]) on 10/22/2023 2:44:28 PM Referred By: Confirmed By:Hany Kennedy
--- NOTE | 2023-10-21 11:42 | EX.ED.DYSGE1 ---
HPI History of Present Illness Chief Complaint: Hypotension Detail of Chief Complaint: History of non-small cell lung cancer, stage IV presents because of hypoten Informant: patient, spouse/S.O. and other (Oncologist, Dr. Ben Murcia) Onset/Context/Timing Onset: Hours Context: Sudden Onset Timing: Intermittent Quality: Low blood pressure systolic 80. Patient states normal is 120. Location: Oncologist office Current Severity: Mild Maximum Severity: Severe Worsened by: Unknown Relieved by: Nothing Associated Symptoms Associated Symptoms: Increased shortness of breath with slight increase in cough. Narrative Narrative: Patient is a 72-year-old male with stage IV lung cancer on immunotherapy. He has had no chemotherapy. He is on oxygen at 3 to 4 L. He states he has been using more oxygen because his pulse ox drops. He denies fever, chills night sweats. [place] rhinorrhea, congestion postnasal drainage. He has slight sore throat. He denies chest discomfort. He denies leg pain, swelling discoloration. He does bruise easily. He states he is on a baby aspirin. He denies anticoagulant use. He denies headache, visual, ocular auditory symptoms. He denies abdominal pain, nausea, vomiting or diarrhea. He denies dysuria, frequency, urgency or hematuria. He does have history of congestive heart failure, hyperlipidemia, peripheral vascular disease, atherosclerotic heart disease with a nonischemic cardiomyopathy (severe left ventricular systolic dysfunction), secondary pulmonary hypertension. He does have a implanted cardiac defibrillator. Prior similar symptoms: No Recent Illness/Hospitalization: No PFSH PFSH Medical History Anemia Arthritis Atherosclerotic heart disease of [place] coronary artery without angina pectoris CHF (congestive heart failure), NYHA class I Debility GERD (gastroesophageal reflux disease) Hyperlipidemia Hypothyroidism Lesion of pelvic bone Lung cancer Nonischemic cardiomyopathy Pneumothorax after biopsy Psoriatic arthritis PVD (peripheral vascular disease) Secondary pulmonary arterial hypertension Severe left ventricular systolic dysfunction Stage 3 severe COPD by GOLD classification Home Medications multivitamin 1 ea PO DAILY supplement 08/27/16 [History Last Taken 12/26/19] atezolizumab 1,200 mg/20 mL (60 mg/mL) intravenous solution (Tecentriq) 60 mg IV UD CANCER 08/27/18 [History Last Taken 2 Weeks Ago ~12/12/19] cholecalciferol (vitamin D3) 25 mcg (1,000 unit) tablet 1,000 unit PO BID SUPPLEMENT 12/01/18 [History Last Taken 12/26/19] omeprazole 40 mg capsule,delayed release 40 mg PO DAILY GERD 12/01/18 [History Last Taken 12/26/19] aspirin 81 mg tablet,delayed release (Adult Aspirin Regimen) 81 mg PO QODAY heart health 03/28/19 [History Last Taken 12/25/19] levothyroxine 125 mcg tablet 125 mcg PO DAILY thyroid 10/11/19 [History Last Taken 12/26/19] sodium chloride 1 gram tablet 1,000 mg PO BID 10/15/20 [History Last Taken Unknown] hydroxychloroquine 200 mg tablet 200 mg PO DAILY ARTHRITIS 04/15/21 [History Last Taken Unknown] magnesium oxide 400 mg PO DAILY 04/15/21 [History Last Taken Unknown] albuterol sulfate 2.5 mg/3 mL (0.083 %) solution for nebulization 2.5 mg (3 mL) inhalation Q4H PRN #25 vials 04/29/21 [Rx Last Taken Unknown] Disability Placard #1 ea 08/02/21 [Rx Last Taken Unknown] cetirizine 10 mg capsule (Zyrtec) 10 mg PO DAILY PRN 11/05/21 [History Last Taken Unknown] triamcinolone acetonide 55 mcg nasal spray aerosol (Nasacort) 1 spray intranasal DAILY 04/22/22 [History Last Taken Unknown] losartan 25 mg tablet See Rx Instructions .Route .COMPLEX #90 tabs 03/23/23 [Rx Last Taken Unknown] potassium chloride 20 mEq tablet,extended release(part/cryst) 20 meq PO BID supplement #180 tabs 03/30/23 [Rx Last Taken Unknown] carvedilol 6.25 mg tablet 6.25 mg PO BID HEART #180 tabs 08/24/23 [Rx Last Taken Unknown] albuterol sulfate 90 mcg/actuation aerosol inhaler 2 inh inhalation Q4H PRN PRN Wheezing #18 grams 08/27/23 [Rx Last Taken Unknown] atorvastatin 40 mg tablet 40 mg PO QHS Patient wants delivered to his home #90 tabs 08/31/23 [Rx Last Taken Unknown] umeclidinium 62.5 mcg/actuation blister powder for inhalation 1 inh inhalation DAILY #30 ea 09/07/23 [Rx Last Taken Unknown] amoxicillin 875 mg-potassium clavulanate 125 mg tablet 1 tab PO BID #20 tabs 10/02/23 [Rx Last Taken Unknown] prednisone 10 mg tablet 10 mg PO QDAY #30 tabs 10/02/23 [Rx Last Taken Unknown] fluticasone furoate 200 mcg-vilanterol 25 mcg/dose inhalation powder (Breo Ellipta) 1 inh inhalation QDAY #60 ea 10/05/23 [Rx Last Taken Unknown] furosemide 40 mg tablet 40 mg PO QAM FLUID #90 tabs 10/05/23 [Rx Last Taken Unknown] Allergy/AdvReac Type Severity Reaction Status Date / Time No Known Allergies Allergy Verified 10/21/23 11:27 Family History Mother Heart disease Brother CVA (cerebral vascular accident) Father Cancer brain Grandmother Diabetes Surgical History History of appendectomy (~12/26/19) Implantable cardioverter-defibrillator (ICD) in situ (12/27/16) Social History Smoking Status: Former smoker how long ago did patient quit smokin, 1.5p/day second hand exposure: Yes alcohol intake: never substance use type: does not use caffeine: Yes Type: coffee Number of servings: 2 what type of physical activity do you participate in: walking frequency: 3-4 times per week ROS ROS ED Constitutional Constitutional ED: Reports weight loss; Denies chills, fever(s), subjective or sweats Eyes Eyes: Denies blurry vision, change in vision or diplopia ENT ENT ED: Denies ear pain, rhinorrhea or sore throat Cardiovascular Cardiovascular: Denies chest pain, orthopnea, palpitations, paroxysmal nocturnal dyspnea or racing heartbeat Respiratory/Chest Respiratory/Chest: Reports cough, dyspnea, dyspnea on exertion and sputum; Denies orthopnea or paroxysmal nocturnal dyspnea Gastrointestinal Gastrointestinal: Denies abdominal pain, diarrhea, melena, nausea or vomiting Genitourinary Genitourinary ED: Denies dysuria, hematuria or urinary frequency Musculoskeletal Musculoskeletal: Denies arthralgias or myalgias Integumentary Reports other Details: Multiple bruises Neurologic Neurologic: Reports weakness; Denies headache(s) or paresthesias Hematologic/Lymphatic Hematologic/Lymphatic: Reports easy bruising EXAM Physical Exam Const Vital Signs: 10/21/23 11:25 10/21/23 12:00 10/21/23 12:00 Temperature 97.4 F L Temperature Source Temporal Pulse Rate 126 H 101 H Respiratory Rate 20 H 20 H Respiratory Effort Normal Respiratory Pattern Normal Blood Pressure 106/39 L 111/58 L Blood Pressure Mean 61 75 Pulse Ox 86 100 Oxygen Delivery Method Nasal Cannula Nasal Cannula Oxygen Flow Rate (L/min) 4 4 10/21/23 13:06 10/21/23 14:00 Temperature Temperature Source Pulse Rate 100 84 Respiratory Rate 16 16 Respiratory Effort Respiratory Pattern Blood Pressure 115/57 L 133/44 H Blood Pressure Mean 76 73 Pulse Ox 95 98 Oxygen Delivery Method Nasal Cannula Nasal Cannula Oxygen Flow Rate (L/min) 4 4 Positive well developed and cachectic Constitutional Narrative: Patient appears pale, not alert but awake, he is tachycardic and tachypneic. He is no longer hypotensive. General Appearance ED: well developed, cachectic, NAD and pallor; Negative for cyanotic or diaphoretic Nutritional Appearance: cachectic HEENT Reports dry mucous membranes HEENT Narrative: Head is atraumatic normocephalic. Ears normal. Nares patent. Posterior pharynx is normal. Mouth ED: Yes dry mucous membranes Mouth: dry mucous membranes Eyes PERRL and EOMs intact bilaterally Neck no lymphadenopathy, supple and no JVD Chest Wall inspection of chest normal and palpation of chest normal Resp No normal respiratory effort and No clear to auscultation bilaterally Auscultation: rales bilateral base and wheezes expiratory wheezes and lower bilaterally (High-pitched wheezes with forced expiration only. Patient has markedly diminished breath sounds.) Cardio regular rhythm, S1 normal heart sound, S2 normal heart sound and no murmurs Rate: tachycardic GI normal to inspection, nondistended, normoactive bowel sounds, non-tender, non-distended and no masses; Negative for hepatosplenomegaly Back/Spine no CVA tenderness Extremity Extremity Narrative: Multiple bruises upper extremity. No bruises noted lower extremity exam is no leg vein distention, swelling, discoloration, palpable cords tenderness on the distribution deep venous system. Neuro oriented x3 and CN's II-XII intact bilaterally Sensorium / Orientation: Negative for alert Psych mental status grossly normal Skin No no wounds and No skin turgor normal General Skin Exam: pallor; Negative for jaundice MDM MDM MDM Narrative Medical decision making narrative: Presents hypotensive. This may represent a cardiac versus noncardiac etiology. Cardiac etiology would represent ischemia. Noncardiac would be infectious process. Also need to consider GI etiology i.e. GI bleed. Workup was undertaken which clued EKG, chest x-ray and appropriate blood work. Since he has history of nonischemic cardiomyopathy and blood pressure is close to baseline he was not given a fluid bolus. History & Record Review Additional record(s) reviewed:: Prior outpatient record, Prior ED visit, Prior labs and Other (Dr. Ham she did call in and informed us of patient's vitals and concerns.) Lab Data Attestation: I reviewed the patient's lab results. Lab results narrative: Patient has chronic anemia with an MCV of 101.4. Electrolyte panel is marked for BUN of 19 and creatinine 1.49. Creatinine is up from baseline. Lactate is up at 2.1. CO2 and anion gap are normal. Urinalysis is unremarkable. Labs: Laboratory Results - last 24 hr 10/21/23 10/21/23 11:50 13:01 WBC 5.7 RBC 2.84 L Hgb 9.4 L Hct 28.8 L MCV 101.4 H MCH 33.1 H MCHC 32.6 RDW Std Deviation 44.1 H RDW Coeff of Sydni 12.0 Plt Count 161 MPV 9.8 Immature Gran % (Auto) 0.300 Neut % (Auto) 75.7 H Lymph % (Auto) 11.3 L [place] % (Auto) 9.9 Eos % (Auto) 2.3 Baso % (Auto) 0.5 Absolute Neuts (auto) 4.3 Absolute Lymphs (auto) 0.65 L Nucleated RBC % 0 Sodium 140 Potassium 4.1 Chloride 109 H Carbon Dioxide 29.0 Anion Gap 2 L BUN 19 H Creatinine 1.49 H Est GFR (MDRD) Af Amer 60 Est GFR (MDRD) Non-Af 49 L BUN/Creatinine Ratio 12.8 Glucose 116 H Lactic Acid 2.1 H* Calcium 9.0 Total Bilirubin 0.40 AST 33 ALT 28 Alkaline Phosphatase 64 Troponin I High Sens 46 Total Protein 6.5 Albumin 2.9 L Globulin 3.6 Albumin/Globulin Ratio 0.8 L Urine Color Yellow Urine Clarity Clear Urine pH 7.0 Ur Specific [place] 1.010 Urine Protein Negative Urine Glucose (UA) Normal Urine Ketones Negative Urine Occult Blood Negative Urine Nitrite Negative Urine Bilirubin Negative Urine Urobilinogen Normal Ur Leukocyte Esterase Negative Urine RBC 0 SEEN Urine WBC 0 SEEN Ur Squamous Epith Cells 0 SEEN Urine Bacteria 0 SEEN Urine Mucus 0 SEEN Radiography Diagnostic Testing: Clinical Impression(s) from Imaging Studies Chest X-Ray 10/21/23 12:30 IMPRESSION: Mild right basilar atelectasis or scarring. Electronically Signed: Yaz Encinas MD at 12:47 EST , EKG Initial EKG: Attestation: I personally reviewed and interpreted this EKG as follows: Interpretation: Sinus Tachycardia (Rate is 101. There is a first-degree AV block with a SC interval of 240 ms. There appears to be premature ventricular beats noted. Voltage is low. There appears to be incomplete right bundle branch block with an RR prime noted. [place] is normal. QRS durations 104 ms. QT intervals 362 ms.) Management Discussion w/another healthcare provider: Hospitalist (Spoke to Dr. Raza. Dr. Rodríguez his inspector balance truing was contacted. Patient is on long-term steroids. Suspect he has adrenal insufficiency.) and [employer] (Spoke with Dr. Ben Murcia who sentiment. He states he did a cortisol level on him in the recent past and it was level. He is concerned patient may have adrenal insufficiency. Will administer 1 dose of Solu-Cortef and obtain a cortisol level. He also informed that the stim test was remarkable for) Treatment and Re-Evaluation :: In light of the patient having elevated creatinine, lactic acidosis initially hypotensive and evidence of poor perfusion with elevated creatinine and lactate will contact hospitalist. Will obtain a cortisol level and administer dose of Solu-Cortef. Discharge Plan Dx/Rx/DC Orders Clinical Impression: Acute adrenal insufficiency, Acute hypotension, Stage 3 severe COPD by GOLD classification, Lung cancer, Elevated serum creatinine, Acidosis, lactic, Acute bronchospasm, History of chronic CHF Disposition Disposition: [facility]
[2023-10-21 12:02] LABS: Absolute Lymphocyte Count 0.65 X10^3/uL (0.83-4.51); Absolute Neutrophil Count 4.3 X10^3/uL (2.0-7.7); Basophil# 0.03 X10^3/uL; Basophil% 0.5 % (0-1); Eosinophil# 0.13 X10^3/uL; Eosinophils% 2.3 % (0-5); Hematocrit 28.8 % (40-54); Hemoglobin 9.4 g/dL (13.0-16.5); Lymphocyte # 0.65 X10^3/ul (0.83-4.51); Lymphocyte % 11.3 % (19-41); Mean Corp Hgb Conc 32.6 g/dL (32-36); Mean Corpuscular Hgb 33.1 pg (27.0-32.0); Mean Corpuscular Volume 101.4 fL (80-94); Mean Platelet Vol. 9.8 fl (6.2-12.0); Monocyte# 0.57 X10^3/uL; Monocyte% 9.9 % (0-10); NRBC Flagged by Analyzer 0 % (0-5); Neutrophil # 4.34 X10^3/uL (2.7-7.7); Neutrophil % 75.7 % (47-70); Platelet Count 161 K/mm3 (150-450); RBC Distribution Width SD 44.1 fl (35.1-43.9); Red Blood Count 2.84 M/mm3 (4.6-6.2); White Blood Count 5.7 K/mm3 (4.4-11.0)
[2023-10-21 12:17] LABS: ALB/GLOB Ratio 0.8 RATIO (0.9-2.4); AST(SGOT) 33 U/L (15-37); Alanine Aminotransfer ALT/SGPT 28 U/L (16-61); Albumin, Serum 2.9 g/dL (3.2-5.0); Alkaline Phosphatase 64 U/L (45-117); Anion Gap 2 (5-15); BUN 19 mg/dL (7-18); BUN/Creat Ratio 12.8 RATIO (10-20); Chloride 109 mmol/L (98-107); Creatinine, Serum 1.49 mg/dL (0.70-1.30); EST Glomerular Filtration Rate 49 mL/min (>60); Est Glom Filt Rate - Afr Amer 60 mL/min (>60); Globulin 3.6 g/dL (2.2-4.2); Glucose 116 mg/dL (74-106); Potassium 4.1 mmol/L (3.5-5.1); Protein, Total 6.5 g/dL (6.4-8.2); Sodium Level 140 mmol/L (136-145)
--- NOTE | 2023-10-21 12:30 | RAD_ITS ---
HISTORY: Dyspnea and hypoxia. TECHNIQUE: XR Chest 1 View. COMPARISON: 09/15/2023. FINDINGS: CARDIOMEDIASTINAL BORDERS: Cardiac silhouette within normal limits in size with pacemaker again noted. Mediastinal contour unremarkable with calcification of the aorta. LUNGS: Mild linear right basilar opacity again seen. PLEURA: No pleural effusion or pneumothorax seen. OSSEOUS STRUCTURES: Old bilateral rib fractures. Mild degenerative change. RAD/Chest 1 View (Portable) IMPRESSION: Mild right basilar atelectasis or scarring. Electronically Signed: Yaz Encinas MD at 12:47 EST ,
[2023-10-21 13:01] LABS: Troponin-I HS (w/2H Reflex) 46 pg/mL (3.0-78.0)
[2023-10-21 13:05] LABS: Bacteria 0 SEEN /hpf (None Seen); Mucous, Urine 0 SEEN /hpf (<or=2+); Red Blood Cells-Urine 0 SEEN /hpf (0-5); Squamous Epithelial Cells - UA 0 SEEN /hpf (0-5); White Blood Cells 0 SEEN /hpf (0-5)
[2023-10-21 13:09] LABS: Color, Urine Yellow (Yellow); Glucose, Dipstick Normal (Normal); Ketone-Dipstick Negative (Negative); Leukocyte Esterase-Dipstick Negative /ul (Negative); Nitrite-Dipstick Negative (Negative); Occult Blood-Urine Negative /ul (Negative); Protein-Dipstick Negative (Negative); Urine Bilirubin Dipstick Negative (Negative); Urine Clarity Clear (Clear); Urine Urobilinogen Normal (Normal)
[2023-10-21 13:17] LABS: Lactic Acid 2.1 mmol/L (0.4-1.9)
[2023-10-21] MEDS: dexAMETHasone 10 MG/ML Vial IV (14:09)
--- NOTE | 2023-10-21 14:38 | PCM.HP.STD ---
HPI - General General Date of Admission: 10/21/23 Date of Service: 10/21/23 Chief Complaint: Fatigue/Hypotension/Tachycardia HPI Narrative JIGNESH LOPEZ, is a 72 M who presented to the emergency department at [facility] on 10/21/2023 with hypotension. Patient has a history of stage IV non-small cell lung CA and was at Dr. Murcia's office today for follow-up. He was found to be hypotensive with systolics in the 80s and a baseline in the 120s as well as tachycardia. Dr. Ruffin he reported that his heart rate was 140s there however here is normal in the 80s. The patient states he has had intermittent fatigue and generalized weakness. He has had no palpitations or noted that he had been tachycardic. He does have severe lung disease and is on 3 to 4 L of oxygen at baseline with a trilogy at night with settings at 21/5 and a 6 L bleed. He follows with Dr. Rodríguez for this. He takes steroids on a fairly regular basis and had an outpatient positive Cortrosyn stim test done by Dr. Murcia. He had a recent PET scan that showed no significant noted metastatic disease which I reviewed specifically for his adrenal glands but did discuss his case with Dr. Rodríguez and he did indicate that he take steroids quite frequently so it is felt that this is likely related to secondary adrenal Heist sufficiency from exogenous steroid use to treat his COPD. He also was tachycardic in the outpatient setting and cannot rule out atrial fibrillation. However he is in normal sinus rhythm at the time of my evaluation. Vital signs on presentation showed a temperature of 97.4, heart rate was 126, blood pressure was 106/39, respiratory was 20 and oxygen saturations were initially 86 on 4 L but after an aerosol improved to 100% on his 4 L. He was given Decadron with repeat blood pressure at 133/44 and a heart rate of 84. His CBC shows a normal white count but he does show chronic stable anemia. His chemistry panel shows an elevated BUN at 19 and a serum creatinine of 1.49 which is above his baseline of 1.0-1.2. His blood sugar was 116 and his lactic acid was 2.1. LFTs are normal. Cortisol level is pending however as noted above he had an outpatient Cortrosyn stim test that was remarkable. His UA is unremarkable and he does not appear to be dehydrated with a specific gravity of 1.01. His chest x-ray shows mild right basilar atelectasis or scarring but was otherwise unremarkable for any acute findings. His EKG was normal sinus rhythm with a first-degree heart block and no ST-T wave changes concerning for acute ischemia He was given Decadron in the emergency department and request for observation admission was made to ensure that his blood pressure improves with steroids. [facility] Medical History Anemia Arthritis Atherosclerotic heart disease of [place] coronary artery without angina pectoris CHF (congestive heart failure), NYHA class I Debility GERD (gastroesophageal reflux disease) Hyperlipidemia Hypothyroidism Lesion of pelvic bone Lung cancer Nonischemic cardiomyopathy Pneumothorax after biopsy Psoriatic arthritis PVD (peripheral vascular disease) Secondary pulmonary arterial hypertension Severe left ventricular systolic dysfunction Stage 3 severe COPD by GOLD classification Home Medications multivitamin 1 ea PO DAILY supplement 08/27/16 [History Last Taken 12/26/19] atezolizumab 1,200 mg/20 mL (60 mg/mL) intravenous solution (Tecentriq) 60 mg IV UD CANCER 08/27/18 [History Last Taken 2 Weeks Ago ~12/12/19] cholecalciferol (vitamin D3) 25 mcg (1,000 unit) tablet 1,000 unit PO BID SUPPLEMENT 12/01/18 [History Last Taken 12/26/19] omeprazole 40 mg capsule,delayed release 40 mg PO DAILY GERD 12/01/18 [History Last Taken 12/26/19] aspirin 81 mg tablet,delayed release (Adult Aspirin Regimen) [facility] [History Last Taken 12/25/19] levothyroxine 125 mcg tablet 125 mcg PO DAILY thyroid 10/11/19 [History Last Taken 12/26/19] sodium chloride 1 gram tablet 1,000 mg PO BID 10/15/20 [History Last Taken Unknown] hydroxychloroquine 200 mg tablet 200 mg PO DAILY ARTHRITIS 04/15/21 [History Last Taken Unknown] magnesium oxide 400 mg PO DAILY 04/15/21 [History Last Taken Unknown] Disability Placard #1 ea 08/02/21 [Rx Last Taken Unknown] cetirizine 10 mg capsule (Zyrtec) 10 mg PO DAILY PRN allergy symptoms 11/05/21 [History Last Taken Unknown] triamcinolone acetonide 55 mcg nasal spray aerosol (Nasacort) 1 spray intranasal DAILY 04/22/22 [History Last Taken Unknown] losartan 25 mg tablet See Rx Instructions .Route .COMPLEX #90 tabs 03/23/23 [Rx Last Taken Unknown] umeclidinium 62.5 mcg/actuation blister powder for inhalation 1 inh inhalation DAILY #30 ea 09/07/23 [Rx Last Taken Unknown] fluticasone furoate 200 mcg-vilanterol 25 mcg/dose inhalation powder (Breo Ellipta) 1 inh inhalation QDAY #60 ea 10/05/23 [Rx Last Taken Unknown] furosemide 40 mg tablet 40 mg PO QAM FLUID #90 tabs 10/05/23 [Rx Last Taken Unknown] albuterol sulfate 90 mcg/actuation aerosol inhaler (ProAir HFA) 2 inh inhalation Q4H PRN shortness of breath or wheezing 10/21/23 [History Last Taken Unknown] ascorbic acid (vitamin C) 1,000 mg capsule 1 g PO DAILY 10/21/23 [History Last Taken Unknown] atorvastatin 40 mg tablet 40 mg PO DAILY Patient wants delivered to his home 10/21/23 [History Last Taken Unknown] clobetasol 0.05 % topical cream 1 applic topical BID 10/21/23 [History Last Taken Unknown] potassium chloride 20 mEq tablet,extended release(part/cryst) 40 meq PO BID supplement 10/21/23 [History Last Taken Unknown] tralokinumab-ldrm 150 mg/mL subcutaneous syringe (Adbry) 300 mg subcut Q14D 10/21/23 [History Last Taken Unknown] triamcinolone acetonide 0.1 % topical cream 1 applic topical BID 10/21/23 [History Last Taken Unknown] Allergy/AdvReac Type Severity Reaction Status Date / Time No Known Allergies Allergy Verified 10/21/23 11:27 Family History Mother Heart disease Brother CVA (cerebral vascular accident) Father Cancer brain Grandmother Diabetes Surgical History History of appendectomy (~12/26/19) Implantable cardioverter-defibrillator (ICD) in situ (12/27/16) Social History Smoking Status: Former smoker how long ago did patient quit smokin, 1.5p/day second hand exposure: Yes alcohol intake: never substance use type: does not use caffeine: Yes Type: coffee Number of servings: 2 what type of physical activity do you participate in: walking frequency: 3-4 times per week ROS Constitutional Constitutional: Reports fatigue, malaise and weakness; Denies anorexia, change in weight, chills, fever(s), night sweats or other Eyes Eyes: Reports blurry vision, change in vision and loss of vision ENT HEENT: Denies abnormal hearing, dysphagia, ear pain, epistaxis, headache(s), hearing loss, nasal congestion, nasal discharge, post nasal drip, sinus pressure, sore throat or other Cardiovascular Cardiovascular: Denies chest pain, claudication, dyspnea on exertion, edema, lightheadedness, orthopnea, palpitations, paroxysmal nocturnal dyspnea, rapid heart rate, syncope or other Respiratory/Chest Respiratory/Chest: Reports cough, shortness of breath at rest and shortness of breath with exertion; Denies dyspnea, excessive phlegm production, hemoptysis, productive cough, wheezing or other Gastrointestinal Gastrointestinal: Denies abdominal pain, coffee ground emesis, constipation, diarrhea, dyspepsia, hematemesis, hematochezia, loose stools, melena, nausea, vomiting or other Genitourinary Genitourinary: Denies burning urination, difficulty urinating, dysuria, hematuria, nocturia, urinary frequency, urinary hesitancy, urinary incontinence, urinary urgency or other Musculoskeletal Musculoskeletal: Denies arthralgias, back pain, joint pain, joint stiffness, joint swelling, myalgias, neck pain or other Neurologic Neurologic: Denies abnormal gait, abnormal speech, confusion, disequilibrium, dizziness, focal weakness, headache(s), numbness, paresthesias, seizure-like activity, seizures, syncope, tingling, tremor(s) or other Psychiatric Psychiatric: Denies anxiety, depression, homicidal ideation, suicidal ideation or other Endocrine Endocrinology: Denies change in body appearance, cold intolerance, excessive sweating, heat intolerance, polydipsia, polyuria or other Hematologic/Lymphatic Hematologic/Lymphatic: Denies anemia, easy bleeding, easy bruising, lymphadenopathy or other Allergic/Immunologic Allergic/Immunologic: Denies rhinitis, hives, eczemia, asthma or other Vital Signs Vital Signs Vital Signs: 10/21/23 11:25 10/21/23 12:00 10/21/23 12:00 Temperature 97.4 F L Temperature Source Temporal Pulse Rate 126 H 101 H Respiratory Rate 20 H 20 H Respiratory Effort Normal Respiratory Pattern Normal Blood Pressure 106/39 L 111/58 L Blood Pressure Mean 61 75 Pulse Ox 86 100 Oxygen Delivery Method Nasal Cannula Nasal Cannula Oxygen Flow Rate (L/min) 4 4 10/21/23 13:06 10/21/23 14:00 Temperature Temperature Source Pulse Rate 100 84 Respiratory Rate 16 16 Respiratory Effort Respiratory Pattern Blood Pressure 115/57 L 133/44 H Blood Pressure Mean 76 73 Pulse Ox 95 98 Oxygen Delivery Method Nasal Cannula Nasal Cannula Oxygen Flow Rate (L/min) 4 4 Weight Weight: 58.4 kg Body Mass Index (BMI) 21.4 Physical Exam Const alert, oriented x3, no apparent distress and average body habitus; Negative for healthy appearing or well nourished Constitutional Narrative: Elderly, white male, sitting up in bed, appears older than stated age, at bedside, currently appears comfortable, nontoxic, stable on his baseline oxygen at 4 L General Appearance: cooperative HEENT normocephalic and head/scalp atraumatic HEENT Narrative: Mild hearing loss, dentition is poor, no thrush, mucous membranes are moist Eyes PERRL and EOMs intact bilaterally Eyes Narrative: Mildly pale conjunctiva bilaterally, no scleral icterus Neck no lymphadenopathy and supple Neck Narrative: Trachea midline, no thyroid enlargement or nodularity Resp No normal respiratory effort, no retractions, no use of accessory muscles and clear to auscultation bilaterally Resp Narrative: Mild tachypnea and conversational dyspnea, markedly diminished diffusely being more diminished at left upper lobe Auscultation: Negative for rales, rhonchi or wheezes Cardio regular rate, regular rhythm, S1 normal heart sound, S2 normal heart sound, no murmurs, no rub, no gallops and no clicks GI normal to inspection, nondistended, normoactive bowel sounds, soft to palpation and non-tender Extremity no clubbing, cyanosis or edema Extremity Narrative: 2+ pedal pulses Skin no wounds, skin turgor normal, no jaundice, no petechiae and no mottling Skin Narrative: Skin is pale, multiple pores of Norma on his back Neuro oriented x3, CN's II-XII intact bilaterally, moves all extremities and no focal motor deficits Speech: speech normal Psych affect normal Psych Narrative: Eye contact is good, patient is very pleasant Results Lab / Micro Data 10/21/23 11:50 10/21/23 11:50 Labs: Laboratory Results - last 24 hr 10/21/23 11:50: WBC 5.7, RBC 2.84 L, Hgb 9.4 L, Hct 28.8 L, MCV 101.4 H, MCH 33.1 H, MCHC 32.6, RDW Std Deviation 44.1 H, RDW Coeff of Sydni 12.0, Plt Count 161, MPV 9.8, Immature Gran % (Auto) 0.300, Neut % (Auto) 75.7 H, Lymph % (Auto) 11.3 L, Worth % (Auto) 9.9, Eos % (Auto) 2.3, Baso % (Auto) 0.5, Absolute Neuts (auto) 4.3, Absolute Lymphs (auto) 0.65 L, Nucleated RBC % 0, Sodium 140, Potassium 4.1, Chloride 109 H, Carbon Dioxide 29.0, Anion Gap 2 L, BUN 19 H, Creatinine 1.49 H, Est GFR (MDRD) Af Amer 60, Est GFR (MDRD) Non-Af 49 L, BUN/Creatinine Ratio 12.8, Glucose 116 H, Lactic Acid 2.1 H*, Calcium 9.0, Total Bilirubin 0.40, AST 33, ALT 28, Alkaline Phosphatase 64, Troponin I High Sens 46, Total Protein 6.5, Albumin 2.9 L, Globulin 3.6, Albumin/Globulin Ratio 0.8 L 10/21/23 13:01: Urine Color Yellow, Urine Clarity Clear, Urine pH 7.0, Ur Specific [facility] 1.010, Urine Protein Negative, Urine Glucose (UA) Normal, Urine Ketones Negative, Urine Occult Blood Negative, Urine Nitrite Negative, Urine Bilirubin Negative, Urine Urobilinogen Normal, Ur Leukocyte Esterase Negative, Urine RBC 0 SEEN, Urine WBC 0 SEEN, Ur Squamous Epith Cells 0 SEEN, Urine Bacteria 0 SEEN, Urine Mucus 0 SEEN Micro: Microbiology 10/21/23 11:57 Mucosa - Nose SARS-CoV-2, Influenza & RSV (PCR) - Final Imaging Radiology Impression Chest X-Ray 10/21/23 12:30 IMPRESSION: Mild right basilar atelectasis or scarring. Electronically Signed: Yaz Encinas MD at 12:47 EST , Assessment & Plan Assessment/Plan (1) Acidosis, lactic: (2) Acute hypotension: (3) Elevated serum creatinine: (4) Chronic respiratory failure with hypoxia: (5) Secondary adrenal insufficiency: (6) Tachycardia: PLAN: Plan Acute hypotension -Highly suspect related to adrenal insufficiency-secondary due to recurrent endogenous steroid use -Patient had outpatient Cortrosyn stim test that was positive with Dr. Murcia -Patient was given 10 of Decadron in the emergency department and will start hydrocortisone 10 mg p.o. twice daily -No signs of mineralocorticoid insufficiency so we will not add any fludrocortisone -Dr. Kingsley she reported he was also tachycardic in the outpatient setting however we have not observed any tachycardia so this could have contributed to hypotension as well -Blood pressures improved with most recently being 125/50 which is close to his baseline -Patient reports baseline systolics are about 120 Tachycardia -This is resolved but patient's heart rate was not [address] Murcia's office -EKG was not able to be obtained -I do wonder if he is having paroxysmal atrial fibrillation -Will monitor on telemetry for now -If no abnormalities noted would recommend outpatient Holter monitor at discharge and I have already ordered this Lactic acidosis -Very mild and suspect related to the above -Cycle per protocol however I expect resolution with the above treatment and lack of tachycardia Elevated serum creatinine -Appears to be between 1.1 and 1.3 -1.49 on admission -Likely related to lack of perfusion with hypotension -Repeat BMP in a.m. Chronic hypoxic respiratory failure secondary to COPD/pulmonary hypertension(who group 2 and 3) -Patient follows with Dr. Rodríguez -Is chronically on oxygen at 3 to 4 L -Wears trilogy at baseline -Most recent PFTs show an FEV1 of 57% however it is likely lower now with his lung cancer -Right ventricular systolic pressure was 47 on his last echo in 2016 however expected to be worse at this time -Continue supplemental oxygen and nocturnal trilogy -Continue home inhalers -Hold home Lasix for now but likely restart tomorrow blood pressure stable Squamous cell carcinoma of the left lung -Patient follows as an outpatient with oncology at [facility] and sees Dr. Murcia -Continue outpatient follow-up -Discussed case with oncology History of nonischemic cardiomyopathy/nonobstructive CAD/hyperlipidemia -Patient has had an EF as low as 15 to 20% in 2017 but most recent echocardiogram from August 2018 showed an EF of 65% with stage I diastolic dysfunction -Will hold Lasix for now -Has ICD -Continue statin -Continue aspirin -Hold losartan Psoriatic arthritis -Continue hydroxychloroquine Hypothyroidism -Check TSH -Continue home levothyroxine GERD -Continue home PPI especially in light of steroid use DVT prophylaxis -Heparin twice daily CODE STATUS -DNR CCA with no intubation as discussed at admission Charges/Coding Visit Charges Inpatient E&M: 10881 Init Hosp L2
[2023-10-21 14:45] LABS: Reflex Troponin-HS? (from REC) Y
--- NOTE | 2023-10-21 14:59 | NURSING ---
MED SURG WALI ADRENAL INSUFFICIENCY, LACTIC ACIDOSIS, HYPOTENSION
[2023-10-21 15:34] LABS: Troponin-I HS 50 pg/mL (3.0-78.0)
[2023-10-21 15:56] LABS: Reflex Lactate? Y
[2023-10-21 17:04] LABS: Lactic Acid 0.7 mmol/L (0.4-1.9)
[2023-10-21] MEDS: Hydrocortisone 10 MG Tablet PO (18:11)
[2023-10-21] MEDS: Cholecalciferol (VIT D3) 25 MCG TABLET (1,000 UNITS) PO (18:11)
[2023-10-21] MEDS: Ipratropium/Albuterol Sulfate 3 ML AMPUL.NEB INHALATION (19:46)
[2023-10-21] MEDS: Budesonide Respules 0.5 MG/2 ML AMPUL.NEB. INHALATION (19:46)
[2023-10-21] MEDS: 0.9% Saline Lock 10 ML Syringe IV (21:28)
[2023-10-21] MEDS: Heparin Injection (Vial) 5,000 UNIT/ML VIAL 5000 UNIT SC (21:28)
[2023-10-21] MEDS: Sodium Chloride 1 GM Tablet PO (21:29)
[2023-10-21] MEDS: Atorvastatin Calcium 40 MG Tablet PO (21:29)
[2023-10-22 03:52] VITALS: BP 137/50; PULSE 90; RESP 18; TEMP 36.7; O2SAT 98
[2023-10-22] MEDS: Levothyroxine 125 MCG Tablet PO (05:40)
[2023-10-22 06:47] LABS: Absolute Lymphocyte Count 0.37 X10^3/uL (0.83-4.51); Absolute Neutrophil Count 3.8 X10^3/uL (2.0-7.7); Hematocrit 25.4 % (40-54); Hemoglobin 8.2 g/dL (13.0-16.5); Lymphocyte # 0.37 X10^3/ul (0.83-4.51); Lymphocyte % 8.3 % (19-41); Mean Corp Hgb Conc 32.3 g/dL (32-36); Mean Corpuscular Hgb 32.4 pg (27.0-32.0); Mean Corpuscular Volume 100.4 fL (80-94); Mean Platelet Vol. 9.9 fl (6.2-12.0); Monocyte# 0.25 X10^3/uL; Monocyte% 5.6 % (0-10); NRBC Flagged by Analyzer 0 % (0-5); Neutrophil # 3.82 X10^3/uL (2.7-7.7); Neutrophil % 85.4 % (47-70); POSITIVE DIFFERENTIAL YES; Platelet Count 160 K/mm3 (150-450); RBC Distribution Width CV 11.9 % (11.6-14.6); RBC Distribution Width SD 43.1 fl (35.1-43.9); Red Blood Count 2.53 M/mm3 (4.6-6.2); White Blood Count 4.5 K/mm3 (4.4-11.0)
[2023-10-22 07:17] VITALS: O2SAT 96
[2023-10-22] MEDS: Budesonide Respules 0.5 MG/2 ML AMPUL.NEB. INHALATION (07:17)
[2023-10-22] MEDS: Ipratropium/Albuterol Sulfate 3 ML AMPUL.NEB INHALATION (07:17)
[2023-10-22 07:50] LABS: ALB/GLOB Ratio 0.8 RATIO (0.9-2.4); AST(SGOT) 26 U/L (15-37); Alanine Aminotransfer ALT/SGPT 26 U/L (16-61); Albumin, Serum 2.8 g/dL (3.2-5.0); Alkaline Phosphatase 59 U/L (45-117); Anion Gap 10 (5-15); BUN 26 mg/dL (7-18); BUN/Creat Ratio 18.7 RATIO (10-20); Calcium,Total 8.7 mg/dL (8.5-10.1); Chloride 108 mmol/L (98-107); Creatinine, Serum 1.39 mg/dL (0.70-1.30); EST Glomerular Filtration Rate 53 mL/min (>60); Est Glom Filt Rate - Afr Amer 64 mL/min (>60); Estimated Creatinine Clearance 38.39 ml/min; Globulin 3.4 g/dL (2.2-4.2); Glucose 146 mg/dL (74-106); Magnesium 2.5 mg/dL (1.6-2.6); Phosphorus 4.2 mg/dL (2.5-4.9); Potassium 4.1 mmol/L (3.5-5.1); Protein, Total 6.2 g/dL (6.4-8.2); Sodium Level 143 mmol/L (136-145); Thyroid Stim Hormone (TSH) 0.25 uIU/mL (0.358-3.74)
[2023-10-22 09:10] VITALS: BP 141/55; PULSE 91; RESP 16; TEMP 36.6; O2SAT 100
[2023-10-22] MEDS: Sodium Chloride 1 GM Tablet PO (09:14)
[2023-10-22] MEDS: Heparin Injection (Vial) 5,000 UNIT/ML VIAL 5000 UNIT SC (09:14)
[2023-10-22] MEDS: Ascorbic Acid 500 MG Tablet 1000 MG PO (09:15)
[2023-10-22] MEDS: Multivitamins,Therapeutic Tablet 1 TABLET PO (09:15)
[2023-10-22] MEDS: Pantoprazole Sodium 40 MG Tablet PO (09:15)
[2023-10-22] MEDS: Cholecalciferol (VIT D3) 25 MCG TABLET (1,000 UNITS) PO (09:15)
[2023-10-22] MEDS: Hydrocortisone 10 MG Tablet PO (09:15)
[2023-10-22] MEDS: Magnesium Chloride 64 MG Delay Rel.Tablet 128 MG PO (09:15)
[2023-10-22] MEDS: Aspirin E.C. 81 MG Tablet PO (09:15)
[2023-10-22] MEDS: Hydroxychloroquine 200 MG Tablet PO (09:16)
[2023-10-22 10:51] LABS: International Normalized Ratio 1.1; Prothrombin Time (Protime)PT. 14.1 SECONDS (11.7-14.9)
[2023-10-22 11:49] VITALS: O2SAT 92; O2SAT 94
--- NOTE | 2023-10-22 13:21 | DCINST_ITS ---
Discharge Instructions Diet Discharge Diet: No restrictions Activity Discharge Activity: No Restrictions Weight Bearing Status: Full weight bearing Follow Up Care Test Results: Test results from this visit will be discussed in further detail at your follow- up appointment, if applicable. Discharge Plan Admission Admit Date/Time: 10/21/23 14:35 Primary Reason for Your Visit: Fatigue with low blood pressure Attending Provider: Ede Myers Primary Care Provider: Clay Warren Consulting Providers: Belkis Raza Instructions Additional Instructions / Restrictions: Please start taking hydrocortisone 10 mg twice daily. Please take your potassium supplement only once daily going forward. Follow-up with your oncology doctor in the next few weeks. Discharge Orders/Prescriptions Prescriptions: New hydrocortisone 10 mg Tablet 10 mg PO BIDCM 30 Days Qty: 60 0RF Continued aspirin [Adult Aspirin Regimen] 81 mg tablet,delayed release (DR/EC) 81 mg PO QODAY levothyroxine 125 mcg tablet 125 mcg PO DAILY sodium chloride 1 gram tablet 1,000 mg PO BID Patient Comments: TAKE 1 TABLET BY MOUTH TWICE A DAY magnesium oxide 400 mg magnesium tablet 400 mg PO BID (DME) Disability Placard See Rx Instructions .Route .MEDSUPPLY Qty: 1 0RF Rx Instructions: Expires 08/02/2026 Zyrtec 10 mg capsule 10 mg PO DAILY PRN (Reason: allergy symptoms) triamcinolone acetonide [Nasacort] 55 mcg aerosol,spray 1 spray intranasal DAILY Rx Instructions: administer into each nostril multivitamin 1 EACH tablet 1 ea PO DAILY Patient Comments: vitamin supplement hydroxychloroquine 200 mg tablet 200 mg PO DAILY Patient Comments: arthritis omeprazole 40 MG capsule,delayed release(DR/EC) 40 mg PO DAILY cholecalciferol (vitamin D3) 1,000 UNIT tablet 1,000 unit PO BID albuterol sulfate [ProAir HFA] 90 mcg/actuation HFA aerosol inhaler 2 inh inhalation Q4H PRN (Reason: shortness of breath or wheezing) triamcinolone acetonide 0.1 % cream 1 applic TOPICAL BID Patient Comments: apply to affected area twice a day for 2 weeks then TAKE A WEEK OFF BEFORE RESUMING NEEDED ascorbic acid (vitamin C) 1,000 mg capsule 1 g PO DAILY clobetasol 0.05 % cream 1 applic TOPICAL BID Patient Comments: apply topically to affected area OF THE body twice a day for 2 we... (REFER TO PRESCRIPTION NOTES). Mario 150 mg/mL syringe 300 mg subcut Q14D Rx Instructions: administer as 2 consecutive 150 mg injections atorvastatin 40 mg tablet 40 mg PO DAILY Tecentriq 1,200 mg/20 mL (60 mg/mL) solution 60 mg IV UD Hold Instructions: pending biopsy Patient Comments: Per Dr. Murcia Rx Instructions: Per Dr. Murcia losartan 25 mg tablet See Rx Instructions .ROUTE .COMPLEX Qty: 90 3RF Dose Instruction: TAKE 1 TABLET BY MOUTH EVERY DAY Rx Instructions: TAKE 1 TABLET BY MOUTH EVERY DAY umeclidinium 62.5 mcg/actuation blister with device 1 inh inhalation DAILY Qty: 30 6RF fluticasone furoate-vilanterol [Breo Ellipta] 200-25 mcg/dose blister with device 1 inh inhalation QDAY Qty: 60 6RF Rx Instructions: after inhalation, rinse mouth with water and spit out; do not swallow furosemide 40 mg tablet 40 mg PO QAM Qty: 90 3RF Changed potassium chloride 20 mEq tablet,ER particles/crystals 40 meq PO DAILY 30 Days Qty: 0 0RF Referrals / Follow Up: Clay Warren MD [Primary Care Provider] - Disposition Disposition (needs filled in before D/C Order can be placed): Home, Self Care
--- NOTE | 2023-10-22 13:27 | PCM.DC.SUM ---
Providers Date of Admission: 10/21/23 Date of Discharge: 10/22/23 Primary Care Physician: Dr. Clay Warren MD Reason For Visit: HYPOTENSION 2/2 SECONDARY AI Diagnosis Discharge Diagnosis (1) Acidosis, lactic: Status: Acute Code(s): E87.20 - Acidosis, unspecified (2) Acute hypotension: Status: Acute Code(s): I95.9 - Hypotension, unspecified (3) Elevated serum creatinine: Status: Acute Code(s): R79.89 - Other specified abnormal findings of blood chemistry (4) Chronic respiratory failure with hypoxia: Status: Chronic Code(s): J96.11 - Chronic respiratory failure with hypoxia (5) Secondary adrenal insufficiency: Status: Acute Code(s): E27.49 - Other adrenocortical insufficiency (6) Tachycardia: Status: Acute Code(s): R00.0 - Tachycardia, unspecified Medications at Discharge Home Medications multivitamin 1 ea PO DAILY supplement 08/27/16 atezolizumab 1,200 mg/20 mL (60 mg/mL) intravenous solution (Tecentriq) 60 mg IV UD CANCER 08/27/18 cholecalciferol (vitamin D3) 25 mcg (1,000 unit) tablet 1,000 unit PO BID SUPPLEMENT 12/01/18 omeprazole 40 mg capsule,delayed release 40 mg PO DAILY GERD 12/01/18 aspirin 81 mg tablet,delayed release (Adult Aspirin Regimen) [facility]/28[facility]19 levothyroxine 125 mcg tablet 125 mcg PO DAILY thyroid 10/11/19 sodium chloride 1 gram tablet 1,000 mg PO BID 10/15/20 hydroxychloroquine 200 mg tablet 200 mg PO DAILY ARTHRITIS 04/15/21 magnesium oxide 400 mg PO BID 04/15/21 Disability Placard #1 ea 08/02/21 cetirizine 10 mg capsule (Zyrtec) 10 mg PO DAILY PRN allergy symptoms 11/05/21 triamcinolone acetonide 55 mcg nasal spray aerosol (Nasacort) 1 spray intranasal DAILY 04/22/22 losartan 25 mg tablet See Rx Instructions .Route .COMPLEX #90 tabs 03/23/23 umeclidinium 62.5 mcg/actuation blister powder for inhalation 1 inh inhalation DAILY #30 ea 09/07/23 fluticasone furoate 200 mcg-vilanterol 25 mcg/dose inhalation powder (Breo Ellipta) 1 inh inhalation QDAY #60 ea 10/05/23 furosemide 40 mg tablet 40 mg PO QAM FLUID #90 tabs 10/05/23 albuterol sulfate 90 mcg/actuation aerosol inhaler (ProAir HFA) 2 inh inhalation Q4H PRN shortness of breath or wheezing 10/21/23 ascorbic acid (vitamin C) 1,000 mg capsule 1 g PO DAILY 10/21/23 atorvastatin 40 mg tablet 40 mg PO DAILY Patient wants delivered to his home 10/21/23 clobetasol 0.05 % topical cream 1 applic topical BID 10/21/23 tralokinumab-ldrm 150 mg/mL subcutaneous syringe (Adbry) 300 mg subcut Q14D 10/21/23 triamcinolone acetonide 0.1 % topical cream 1 applic topical BID 10/21/23 hydrocortisone 10 mg tablet 10 mg PO BIDCM 30 days #60 tabs 10/22/23 potassium chloride 20 mEq tablet,extended release(part/cryst) 40 meq (2 x 20 mEq) PO DAILY supplement 30 days #0 tabs 10/22/23 Hospital Course Operations None Procedures EKG and - (Chest x-ray) Summary of Care Provided Minutes Spent on Discharge: 35 Hospital Course: Patient is a 72-year-old male who presented to [facility] ED on 10/21/2023 with hypotension and tachycardia. Short hospital course as noted below. Patient stable for discharge home without any therapy needs on 10/21. 1. Acute hypotension with tachycardia, resolved ? 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 Patient had outpatient cosyntropin stim test ordered by Dr. Murcia that was positive, and he was sent in from Dr. Murcia's office on admit for this concern. ? Given 10 mg of Decadron in the ED, started on p.o. hydrocortisone 10 mg twice daily on admission. Had resolution of hypotension and tachycardia with this. ? Continue hydrocortisone 10 mg twice daily on discharge. Recommend close outpatient follow-up with Dr. Murcia. Can consider outpatient referral to endocrinology as needed. 2. Mild lactic acidosis, resolved ? Presumed secondary to hypotension as noted above, resolved with improvement in blood pressure. 3. Mildly elevated creatinine, improving ? Creatinine 1.49 on admit, baseline creatinine 1.1-1.3. Presumed secondary to lack of perfusion with hypotension. Creatinine improved to 1.39 on hospital day 2. Recommend repeat BMP in 1 to 2 weeks to confirm resolution. 4. Chronic hypoxic respiratory failure secondary to COPD/pulmonary hypertension ? Follows with Dr. Rodríguez. Chronically on 3 to 4 L oxygen at home. Most recent PFT showed an FEV1 of 57%, however this is likely lower now with his lung cancer. RVSP was 47 on last echo in 2016 however would expect this to be worse now as well. ? Remained stable on home amount of oxygen during admission. Continue home inhalers and supplemental oxygen on discharge. Outpatient follow-up with pulmonology as needed. 5. Squamous cell carcinoma of the left lung ? Follows with Dr. Murcia in outpatient setting. No inpatient oncology needs, continue outpatient follow-up as previously scheduled. Chronic medical conditions: ? History of heart failure with recovered ejection fraction/nonischemic cardiomyopathy/nonobstructive CAD/hyperlipidemia/status post ICD placement: EF was as low as 15 to 20% in 2017 but most recent echo from August 2018 showed EF 65% with stage I diastolic dysfunction. Lasix and losartan held during admission, okay to resume on discharge. Continue home statin and aspirin. ? Psoriatic arthritis: Continue home hydroxychloroquine. ? Hypothyroidism: TSH mildly low at 0.25. Continue home Synthroid. Recommend rechecking TSH in 6 to 8 weeks. ? GERD: Continue home PPI. Total clinical time spent by myself addressing the patient's medical issues, reviewing all the data, and collaborating with patient's care team: 35 minutes. Physical Exam Const alert, oriented x3, no apparent distress and average body habitus Constitutional Narrative: Pleasant elderly male, chronically ill-appearing, sitting up comfortably in bed, conversing normally, no acute distress. General Appearance: cooperative and comfortable HEENT normocephalic, head/scalp atraumatic, hearing grossly normal bilaterally, nasal mucous membranes and turbinates normal and moist oral mucous membranes Eyes PERRL, EOMs intact bilaterally and conjunctivae normal Neck full ROM Lymph Lymphatic: no lymphadenopathy noted Chest inspection of chest normal Resp normal respiratory effort and no use of accessory muscles Resp Narrative: Breathing comfortably on home 3 L nasal cannula. Mildly decreased breath sounds throughout bilaterally, no wheezing or crackles noted. Cardio regular rate, regular rhythm, no murmurs and peripheral pulses 2+ throughout GI normal to inspection, nondistended, normoactive bowel sounds, soft to palpation, non-tender and non-distended Back/Spine normal ROM Extremity normal to inspection, full ROM and no pedal edema Skin no rashes or lesions noted Neuro no focal motor deficits and no sensory deficits noted Speech: speech normal Psych mental status grossly normal Weight / BMI Weight Weight: 56.5 kg Body Mass Index (BMI) 20.7 ABG / Lab / Microbiology Data 10/22/23 06:08 10/22/23 06:08 Laboratory: Laboratory Results - last 24 hr 10/21/23 13:01: Urine RBC 0 SEEN, Urine WBC 0 SEEN, Ur Squamous Epith Cells 0 SEEN, Urine Bacteria 0 SEEN, Urine Mucus 0 SEEN 10/21/23 14:10: Cortisol 7.50 10/21/23 15:00: Troponin I High Sens 50 10/21/23 16:20: Lactic Acid 0.7 10/22/23 06:08: WBC 4.5, RBC 2.53 L, Hgb 8.2 L, Hct 25.4 L, MCV 100.4 H, MCH 32.4 H, MCHC 32.3, RDW Std Deviation 43.1, RDW Coeff of Sydni 11.9, Plt Count 160, MPV 9.9, Immature Gran % (Auto) 0.700, Neut % (Auto) 85.4 H, Lymph % (Auto) 8.3 L, Perry % (Auto) 5.6, Eos % (Auto) 0.0, Baso % (Auto) 0.0, Absolute Neuts (auto) 3.8, Absolute Lymphs (auto) 0.37 L, Nucleated RBC % 0, Sodium 143, Potassium 4.1, Chloride 108 H, Carbon Dioxide 25.0, Anion Gap 10, BUN 26 H, Creatinine 1.39 H, Estim Creat Clear Calc 38.39, Est GFR (MDRD) Af Amer 64, Est GFR (MDRD) Non-Af 53 L, BUN/Creatinine Ratio 18.7, Glucose 146 H, Calcium 8.7, Phosphorus 4.2, Magnesium 2.5, Total Bilirubin 0.40, AST 26, ALT 26, Alkaline Phosphatase 59, Total Protein 6.2 L, Albumin 2.8 L, Globulin 3.4, Albumin/Globulin Ratio 0.8 L, TSH 0.25 L 10/22/23 10:05: PT 14.1, INR 1.1 Microbiology: Microbiology 10/21/23 11:57 Mucosa - Nose SARS-CoV-2, Influenza & RSV (PCR) - Final D/C Instructions Discharge Diet: No restrictions Weight Bearing Status: Full weight bearing Meaningful Use Info Meaningful Use Diagnoses (Choose all that apply): None applicable Discharge Plan Admission Admit Date/Time: 10/21/23 14:35 Primary Reason for Your Visit: Fatigue with low blood pressure Attending Provider: Ede Myers Primary Care Provider: Clay Warren Consulting Providers: Belkis Raza Instructions Additional Instructions / Restrictions: Please start taking hydrocortisone 10 mg twice daily. Please take your potassium supplement only once daily going forward. Follow-up with your oncology doctor in the next few weeks. Discharge Orders/Prescriptions Prescriptions: New hydrocortisone 10 mg Tablet 10 mg PO BIDCM 30 Days Qty: 60 0RF Continued aspirin [Adult Aspirin Regimen] 81 mg tablet,delayed release (DR/EC) 81 mg PO QODAY levothyroxine 125 mcg tablet 125 mcg PO DAILY sodium chloride 1 gram tablet 1,000 mg PO BID Patient Comments: TAKE 1 TABLET BY MOUTH TWICE A DAY magnesium oxide 400 mg magnesium tablet 400 mg PO BID (DME) Disability Placard See Rx Instructions .Route .MEDSUPPLY Qty: 1 0RF Rx Instructions: Expires 08/02/2026 Zyrtec 10 mg capsule 10 mg PO DAILY PRN (Reason: allergy symptoms) triamcinolone acetonide [Nasacort] 55 mcg aerosol,spray 1 spray intranasal DAILY Rx Instructions: administer into each nostril multivitamin 1 EACH tablet 1 ea PO DAILY Patient Comments: vitamin supplement hydroxychloroquine 200 mg tablet 200 mg PO DAILY Patient Comments: arthritis omeprazole 40 MG capsule,delayed release(DR/EC) 40 mg PO DAILY cholecalciferol (vitamin D3) 1,000 UNIT tablet 1,000 unit PO BID albuterol sulfate [ProAir HFA] 90 mcg/actuation HFA aerosol inhaler 2 inh inhalation Q4H PRN (Reason: shortness of breath or wheezing) triamcinolone acetonide 0.1 % cream 1 applic TOPICAL BID Patient Comments: apply to affected area twice a day for 2 weeks then TAKE A WEEK OFF BEFORE RESUMING NEEDED ascorbic acid (vitamin C) 1,000 mg capsule 1 g PO DAILY clobetasol 0.05 % cream 1 applic TOPICAL BID Patient Comments: apply topically to affected area OF THE body twice a day for 2 we... (REFER TO PRESCRIPTION NOTES). Adbry 150 mg/mL syringe 300 mg subcut Q14D Rx Instructions: administer as 2 consecutive 150 mg injections atorvastatin 40 mg tablet 40 mg PO DAILY Tecentriq 1,200 mg/20 mL (60 mg/mL) solution 60 mg IV UD Hold Instructions: pending biopsy Patient Comments: Per Dr. Murcia Rx Instructions: Per Dr. Murcia losartan 25 mg tablet See Rx Instructions .ROUTE .COMPLEX Qty: 90 3RF Dose Instruction: TAKE 1 TABLET BY MOUTH EVERY DAY Rx Instructions: TAKE 1 TABLET BY MOUTH EVERY DAY umeclidinium 62.5 mcg/actuation blister with device 1 inh inhalation DAILY Qty: 30 6RF fluticasone furoate-vilanterol [Breo Ellipta] 200-25 mcg/dose blister with device 1 inh inhalation QDAY Qty: 60 6RF Rx Instructions: after inhalation, rinse mouth with water and spit out; do not swallow furosemide 40 mg tablet 40 mg PO QAM Qty: 90 3RF Changed potassium chloride 20 mEq tablet,ER particles/crystals 40 meq PO DAILY 30 Days Qty: 0 0RF Referrals / Follow Up: Clay Warren MD [Primary Care Provider] - Disposition Disposition (needs filled in before D/C Order can be placed): Home, Self Care Charges/Coding Visit Charges Inpatient E&M: 39431 Disch Hosp >30min
--- NOTE | 2023-10-22 14:31 | PHA.DC.MC.R ---
Pharmacy [facility] has performed discharge medication reconciliation and counseling for this patient. The patient's discharge medication list was reviewed for discrepancies and discrepancies were resolved. The patient was counseled on the following discharge medications and changes in medications for homegoing were reviewed. 1. HYDROCORTISONE 2. POTASSIUM CHLORIDE --> DOSE DECREASED FROM BID TO ONCE DAILY The Reason for Use, instructions for use, and potential side effects were reviewed for all new medications. The patient's questions regarding all of their medications were answered. The patient was able to verbally demonstrate an understanding of their discharge medications. Medications at Discharge Home Medications multivitamin 1 ea PO DAILY supplement 08/27/16 atezolizumab 1,200 mg/20 mL (60 mg/mL) intravenous solution (Tecentriq) 60 mg IV UD CANCER 08/27/18 cholecalciferol (vitamin D3) 25 mcg (1,000 unit) tablet 1,000 unit PO BID SUPPLEMENT 12/01/18 omeprazole 40 mg capsule,delayed release 40 mg PO DAILY GERD 12/01/18 aspirin 81 mg tablet,delayed release ([facility]irin Reg[facility] levothyroxine 125 mcg tablet 125 mcg PO DAILY thyroid 10/11/19 sodium chloride 1 gram tablet 1,000 mg PO BID 10/15/20 hydroxychloroquine 200 mg tablet 200 mg PO DAILY ARTHRITIS 04/15/21 magnesium oxide 400 mg PO BID 04/15/21 Disability Placard #1 ea 08/02/21 cetirizine 10 mg capsule (Zyrtec) 10 mg PO DAILY PRN allergy symptoms 11/05/21 triamcinolone acetonide 55 mcg nasal spray aerosol (Nasacort) 1 spray intranasal DAILY 04/22/22 losartan 25 mg tablet See Rx Instructions .Route .COMPLEX #90 tabs 03/23/23 umeclidinium 62.5 mcg/actuation blister powder for inhalation 1 inh inhalation DAILY #30 ea 09/07/23 fluticasone furoate 200 mcg-vilanterol 25 mcg/dose inhalation powder (Breo Ellipta) 1 inh inhalation QDAY #60 ea 10/05/23 furosemide 40 mg tablet 40 mg PO QAM FLUID #90 tabs 10/05/23 albuterol sulfate 90 mcg/actuation aerosol inhaler (ProAir HFA) 2 inh inhalation Q4H PRN shortness of breath or wheezing 03/06/24 ascorbic acid (vitamin C) 1,000 mg capsule 1 g PO DAILY 10/21/23 atorvastatin 40 mg tablet 40 mg PO DAILY Patient wants delivered to his home 10/21/23 clobetasol 0.05 % topical cream 1 applic topical BID 10/21/23 tralokinumab-ldrm 150 mg/mL subcutaneous syringe (Adbry) 300 mg subcut Q14D 10/21/23 triamcinolone acetonide 0.1 % topical cream 1 applic topical BID 10/21/23 hydrocortisone 10 mg tablet 10 mg PO BIDCM 30 days #60 tabs 10/22/23 potassium chloride 20 mEq tablet,extended release(part/cryst) 40 meq (2 x 20 mEq) PO DAILY supplement 30 days #0 tabs 10/22/23
--- NOTE | 2023-10-22 14:37 | CASEMGMT ---
Patient has order for discharge. Patient is maintaining on home oxygen at 2lpm continuously. RN CM in to discuss needs at discharge. Patient and aware to follow up with PCP. Patient and deny needs or help at discharge. Patient and had no further questions or concerns.
[2023-10-22 14:42] VITALS: BP 113/59; PULSE 106; RESP 16; TEMP 37; O2SAT 100
== END 2023-10-22 15:18 | disposition home or self-care (01) ==
LOC: ED 14:49 → PCU 15:17
PROVIDERS: Admitting Provider Internal Medicine; Emergency Provider Emergency Medicine; PCP Family Medicine; Visit Provider Hospitalist
DX: I95.9 Hypotension, unspecified (principal); C34.92 Malignant neoplasm of unspecified part of left bronchus or lung; L40.50 Arthropathic psoriasis, unspecified; I11.0 Hypertensive heart disease with heart failure; I50.42 Chronic combined systolic (congestive) and diastolic (congestive) heart failure; I42.8 Other cardiomyopathies; I27.21 Secondary pulmonary arterial hypertension; I73.9 Peripheral vascular disease, unspecified; J96.11 Chronic respiratory failure with hypoxia; E27.40 Unspecified adrenocortical insufficiency; I44.0 Atrioventricular block, first degree; D64.9 Anemia, unspecified; E78.5 Hyperlipidemia, unspecified; Z79.82 Long term (current) use of aspirin; Z87.891 Personal history of nicotine dependence; J98.01 Acute bronchospasm; I25.10 Atherosclerotic heart disease of native coronary artery without angina pectoris; J44.89 Other specified chronic obstructive pulmonary disease; E03.9 Hypothyroidism, unspecified; Z95.810 Presence of automatic (implantable) cardiac defibrillator; Z79.51 Long term (current) use of inhaled steroids; K21.9 Gastro-esophageal reflux disease without esophagitis; E87.20 Acidosis, unspecified; Z79.899 Other long term (current) drug therapy; R00.0 Tachycardia, unspecified
CPT/HCPCS: 36415; 71045; 80053; 81001; 82533; 83605; 83735; 84100; 84443; 84484; 85025; 85610; 87040; 87631; 93005; 94002; 94640; 94668; 94762; 96372; 96374; 97802; 99221; 99252; 99285; A4216; G0378; G0463

== ENCOUNTER 2023-11-12 08:00 | Outpatient (RCR) | payer SELFPAY | END 2023-11-15 23:59 | LOC: PR 08:00 | PROVIDERS: PCP Family Medicine; Referring Provider Internal Medicine Critical Care Medicine; Visit Provider Internal Medicine Critical Care Medicine | DX: Z00.00 Encounter for general adult medical examination without abnormal findings (principal) ==

== ENCOUNTER → 2023-12-10 | Outpatient (CLI) | payer MEDICARE, OTHER, SELFPAY ==
[2023-12-10] VITALS (7 sets, daily range): BP systolic 122–152; BP diastolic 24–59; PULSE 78–90; RESP 16–18; O2SAT 94–100
--- NOTE | 2023-12-10 14:00 | MRI_ITS ---
EXAM: MR HEAD WITHOUT AND WITH INTRAVENOUS CONTRAST CLINICAL INDICATION: VISUAL CHANGES, PAPILLEDEMA TECHNIQUE: Multiplanar and multisequence MR images of the brain were obtained without and with intravenous contrast. RADIATION DOSE: CTDIvol = mGy, DLP = 6: IV 11cc clariscan COMPARISON: Head CT December 01, 2018, history of intracranial radiation, mentioned low-attenuation white matter and microvascular disease. History of left lung biopsy, lung neoplasm, emphysema. FINDINGS: BRAIN AND EXTRA-AXIAL SPACES: There is no enhancing intracranial lesion. There is moderate high signal intensity throughout the cerebral white matter which may be due to chronic microvascular disease prior reported brain irradiation. No optic nerve enhancement. On diffusion-weighted images there is tiny faint hyperintensity posterior right basal ganglia, too small to characterize on ADC map, 2.8 mm, and similar tiny faintly hyperintense focus of 3 mm posterior to the posterior horn of the right lateral ventricle without visible signal void on ADC map. No evidence of acute CVA. No intra- or extra-axial hemorrhage. No evidence of acute infarct. No intracranial mass or mass effect. There is preservation of the crow/white matter interface. Posterior fossa structures are unremarkable. No hydrocephalus. Basal cisterns are patent. SELLA: Unremarkable. Normal sella turcica, pituitary gland, infundibular stalk, optic chiasm and hypothalamus. AUDITORY SYSTEM: Unremarkable. The internal auditory canals are patent. BONES/JOINTS: Unremarkable. No discrete lytic or blastic abnormalities. SINUSES: Unremarkable as visualized. Clear. MASTOID AIR CELLS: Unremarkable as visualized. Clear. ORBITS: Unremarkable as visualized. Both globes, extraocular muscles, optic nerves and retrobulbar fat appear unremarkable. VASCULATURE: Unremarkable as visualized. Normal flow voids in the major intracranial circulation. MRI/Brain W/WO Contrast IMPRESSION: 1. Advanced chronic white matter changes. Likely due to microvascular disease combined with prior reported brain irradiation. 2. No convincing acute abnormality. No enhancing lesion or evidence of optic neuritis. Electronically Signed: Daniella Harden MD at 8:11 EDT ,
[2023-12-10 14:50] LABS: CREATININE FINGERSTICK 1.1 mg/dL (0.70-1.30); EGFR FINGERSTICK > 60.0000 mL/min (>60)
== END | disposition home or self-care (01) ==
LOC: MRI 13:52
PROVIDERS: PCP Family Medicine; Referring Provider Internal Medicine Hematology & Oncology; Visit Provider Internal Medicine Hematology & Oncology
DX: C34.90 Malignant neoplasm of unspecified part of unspecified bronchus or lung (principal); C79.32 Secondary malignant neoplasm of cerebral meninges; H53.9 Unspecified visual disturbance; H47.10 Unspecified papilledema
CPT/HCPCS: 70553; A9575

== ENCOUNTER 2023-12-15 08:00 | Outpatient (RCR) | payer SELFPAY | END 2023-12-15 23:59 | LOC: PR 08:00 | PROVIDERS: PCP Family Medicine; Referring Provider Internal Medicine Critical Care Medicine; Visit Provider Internal Medicine Critical Care Medicine | DX: Z00.00 Encounter for general adult medical examination without abnormal findings (principal) ==

== ENCOUNTER → 2023-12-29 | Outpatient (CLI) | payer MEDICARE, OTHER, SELFPAY ==
--- NOTE | 2023-12-29 11:30 | PET_ITS ---
EXAMINATION: FDG PET-CT INDICATIONS: A 73-year-old male with a history of primary lung carcinoma presenting for restaging examination. COMPARISON EXAMINATION: Previous FDG PET CT study report dated 09/22/23. INDEX LESION SIZE SUV INTERPRETATION PERSISTENT: Left upper hemithorax pulmonary parenchyma, left upper lobe 1.3 comp to 1.2 Quantitative criteria for viable neoplasm are not fulfilled, minimal interim metabolic change. TECHNIQUE: Following the intravenous administration of 13.87 mCi of F-18 deoxyglucose via the right hand, multiplanar image acquisitions of the head, neck, chest, abdomen and pelvis to level of mid-thigh, lower extremities obtained at one hour post radiopharmaceutical administration contemporaneously interpreted with the current CT of the head, neck, chest, abdomen and pelvis to level of mid-thigh, lower extremities dated 12/29/23 via coregistration and Previous FDG PET CT study report dated 09/22/23 reveal: SERUM GLUCOSE LEVEL: 118 mg/dl. HEIGHT: 65 inches. WEIGHT: 121 lbs. FINDINGS: Head/Neck: There is no evidence of abnormal increased glucose metabolism in the pharyngeal mucosal space, parapharyngeal space, bilateral-lateral and anterior neck, hypopharynx and distribution of the laryngeal structures. The visualized portion of the cerebral cortical-subcortical structures demonstrate symmetric and preserved glucose metabolism. CHEST: Redefined increased FDG concentration is noted in the left upper lung field, left upper lobe. The current calculated maximum standard uptake value is 1.3 compared to 1.2. Quantitative criteria for viable neoplasm are not fulfilled. Pertinent chest CT findings are unchanged on the current examination. A parenchymal density defined in the right lower posterior lung zone is ametabolic. Abdomen/Pelvis: Normal physiologic distribution of the radiopharmaceutical is apparent in the hepatic (2.7) and splenic parenchyma, both renal units, bladder and visualized intestinal tract. Diffuse radiopharmaceutical concentration is noted in all four quadrants of the abdomen and pelvis. Abdomen and pelvis CT findings demonstrate no significant interval change. Skeletal: Degenerative changes are noted in the cervical, thoracic and lumbar spine. There is no visualized sclerotic-lytic changes manifest on review of the appendicular-axial skeletal structures. PET/PET/CT Tumor Base -Thigh Subs IMPRESSION: 1. NEGATIVE EXAMINATION. There is no definitive quantitative scintigraphic evidence of recurrent-metastatic viable neoplasm. 2. Increased FDG concentration redefined in the left upper hemithorax pulmonary parenchyma does not fulfill quantitative criteria for malignant transformation. 3. Overall, compared to the previous FDG PET CT study dated 09/22/23, there is current and continued absence of defined viable neoplastic disease. Electronic Signature Iker Montalvo D.O. Accurate Quantification of SUVs for this report are calculated using the exclusive [employer]. ([place]. Patent No. [phone] [phone] B2 [phone] [place] patent [phone]). Standardization and correction of the FDG SUV metric via [employer] technology allow for vendor non-specific objective quantitative examination comparison and optimization of the sensitivity and specificity of the FDG PET-CT examination. . [email or web address] Electronic Signature Iker Montalvo D.O. Electronically Signed: Iker Montalvo DO at 23:39 EDT ,
== END | disposition home or self-care (01) ==
LOC: ONC 09:19
PROVIDERS: PCP Family Medicine; Referring Provider Internal Medicine Hematology & Oncology; Visit Provider Internal Medicine Hematology & Oncology
DX: C34.12 Malignant neoplasm of upper lobe, left bronchus or lung (principal); C79.51 Secondary malignant neoplasm of bone
CPT/HCPCS: 78815; A9552

== ENCOUNTER 2024-01-14 08:00 | Outpatient (RCR) | payer SELFPAY | END 2024-01-15 23:59 | LOC: PR 08:00 | PROVIDERS: PCP Family Medicine; Referring Provider Internal Medicine Critical Care Medicine; Visit Provider Internal Medicine Critical Care Medicine | DX: Z00.00 Encounter for general adult medical examination without abnormal findings (principal) ==

== ENCOUNTER 2024-02-11 08:00 | Outpatient (RCR) | payer SELFPAY | END 2024-02-14 23:59 | LOC: PR 08:00 | PROVIDERS: PCP Family Medicine; Referring Provider Internal Medicine Critical Care Medicine; Visit Provider Internal Medicine Critical Care Medicine | DX: Z00.00 Encounter for general adult medical examination without abnormal findings (principal) ==

== ENCOUNTER 2024-02-12 12:31 | Emergency (ER) | payer OTHER, MEDICARE, SELFPAY ==
[2024-02-12 12:33] VITALS: BP 114/36; PULSE 98; RESP 18; TEMP 36.3; O2SAT 100
--- NOTE | 2024-02-12 13:34 | ED.VIS.FALL ---
HPI HPI - Fall History of Present Illness Chief Complaint: Fall Informant: patient and spouse/S.O. Occured/Mechanism Occurred: Today Mechanism/Context: Yes same level fall Usually ambulates: Without assistance Pain/Injury Location: Right arm and right forearm Current Severity: Gone Worsened by: Nothing Relieved by: Nothing Associated Symptoms Associated Symptoms: Negative for Parasthesias, Weakness, Loss of function, Inability to ambulate, Loss of consciousness or Amnesia Narrative Narrative: Patient presents after a fall that occurred today. Patient states he was walking when he thinks he tripped over his feet. Patient states he fell to the right. Patient complains of pain in his right arm and forearm. Patient denies any head injury or loss of consciousness. Patient states his last tetanus was within 10 years. Patient denies any paresthesias or weakness. Patient states nothing makes his pain better nothing makes it worse. Currently, patient denies any pain. Tetanus Immunization: 5-10 years [facility] Medical History History of chronic CHF Chronic respiratory failure with hypoxia GERD (gastroesophageal reflux disease) Hypothyroidism Debility Lung cancer Anemia Arthritis Lesion of pelvic bone Pneumothorax after biopsy Secondary pulmonary arterial hypertension Nonischemic cardiomyopathy Severe left ventricular systolic dysfunction Atherosclerotic heart disease of [place] coronary artery without angina pectoris PVD (peripheral vascular disease) Stage 3 severe COPD by GOLD classification Hyperlipidemia CHF (congestive heart failure), NYHA class I Psoriatic arthritis Home Medications ?Medication ?Instructions ?Recorded ?Last Taken ?Type multivitamin 1 ea PO DAILY supplement 08/27/16 10/21/23 History atezolizumab 1,200 mg/20 mL (60 60 mg IV UD CANCER 08/27/18 2 Weeks Ago History mg/mL) intravenous solution ~12/12/19 ([employer]) cholecalciferol (vitamin D3) 25 1,000 unit PO BID SUPPLEMENT 12/01/18 10/21/23 History mcg (1,000 unit) tablet omeprazole 40 mg capsule,delayed 40 mg PO DAILY GERD 12/01/18 10/21/23 History release [facility] History release (Adult Aspirin Regimen) sodium chloride 1 gram tablet 1,000 mg PO BID 10/15/20 10/21/23 History hydroxychloroquine 200 mg tablet 200 mg PO DAILY ARTHRITIS 04/15/21 10/21/23 History magnesium oxide 400 mg PO BID 04/15/21 10/21/23 History Disability Placard #1 ea 08/02/21 Unknown Rx cetirizine 10 mg capsule (Zyrtec) 10 mg PO DAILY PRN allergy symptoms 11/05/21 10/21/23 History triamcinolone acetonide 55 mcg 1 spray intranasal DAILY 04/22/22 Unknown History nasal spray aerosol (Nasacort) losartan 25 mg tablet See Rx Instructions .Route 03/23/23 10/21/23 Rx .COMPLEX #90 tabs albuterol sulfate 90 mcg/actuation 2 inh inhalation Q4H PRN shortness 10/21/23 Unknown History aerosol inhaler (ProAir HFA) of breath or wheezing ascorbic acid (vitamin C) 1,000 mg 1 g PO DAILY 10/21/23 Unknown History capsule atorvastatin 40 mg tablet 40 mg PO DAILY Patient wants 10/21/23 10/20/23 History delivered to his home clobetasol 0.05 % topical cream 1 applic topical BID 10/21/23 10/15/23 History triamcinolone acetonide 0.1 % 1 applic topical BID 10/21/23 10/14/23 History topical cream potassium chloride 20 mEq 40 meq (2 x 20 mEq) PO DAILY 10/22/23 10/21/23 Rx tablet,extended release(part/cryst) supplement 30 days #0 tabs fluticasone furoate 200 1 inh inhalation QDAY #3 ea 10/29/23 Unknown Rx mcg-vilanterol 25 mcg/dose inhalation powder (Breo Ellipta) umeclidinium 62.5 mcg/actuation 1 inh inhalation DAILY #3 ea 10/29/23 Unknown Rx blister powder for inhalation hydrocortisone 10 mg tablet 5 mg PO BIDCM 01/26/24 Unknown History levothyroxine 100 mcg tablet 100 mcg PO QDAY 01/26/24 Unknown History furosemide 20 mg tablet 20 mg PO DAILY #90 tabs 01/29/24 Unknown Rx Allergy/AdvReac Type Severity Reaction Status Date / Time No Known Allergies Allergy Verified 02/12/24 12:33 Family History Mother Heart disease Brother CVA (cerebral vascular accident) Father Cancer brain Grandmother Diabetes Surgical History History of appendectomy (~12/26/19) Implantable cardioverter-defibrillator (ICD) in situ (12/27/16) Social History Smoking Status: Former smoker how long ago did patient quit smokin, 1.5p/day second hand exposure: Yes alcohol intake: never substance use type: does not use caffeine: Yes Type: coffee Number of servings: 2 what type of physical activity do you participate in: walking frequency: 3-4 times per week ROS ROS ED Constitutional Constitutional ED: Denies chills or fever(s) Eyes Eyes: Denies blurry vision or change in vision ENT ENT ED: Denies rhinorrhea or sore throat Cardiovascular Cardiovascular: Denies chest pain or palpitations Respiratory/Chest Respiratory/Chest: Denies cough or dyspnea Gastrointestinal Gastrointestinal: Denies nausea or vomiting Genitourinary Genitourinary ED: Denies dysuria or hematuria Musculoskeletal Musculoskeletal: Denies back pain or neck pain Integumentary Denies abscess or rash Neurologic Neurologic: Denies headache(s) or weakness Allergic/Immunologic Allergic/Immunologic ED: Denies mouth swelling or urticaria EXAM Physical Exam Const Vital Signs: 02/12/24 12:33 Temperature 97.4 F L Temperature Source Temporal Pulse Rate 98 Respiratory Rate 18 Blood Pressure 114/36 L Blood Pressure Mean 62 Pulse Ox 100 Oxygen Delivery Method Nasal Cannula Oxygen Flow Rate (L/min) 4 Positive well nourished and well developed General Appearance ED: well developed and NAD HEENT Reports normocephalic atraumatic Neck full ROM and supple Resp normal respiratory effort and clear to auscultation bilaterally Cardio regular rate and regular rhythm GI non-tender and non-distended Palpation: soft Extremity Extremity Narrative: There are skin tears noted over the lateral aspect of the right upper arm and right forearm. There is no active bleeding noted. There is minimal gapping of the wound margins. There are no foreign bodies noted. There is no edema noted. There is no deformity noted. There is no tenderness of the right hip or right lower extremity. There is no deformity noted. There is good range of motion of the right lower extremity. Strength is 5/5 bilaterally upper and lower extremities. There are no sensory deficits noted. Radial pulses are equal bilaterally. Neuro oriented x3, CN's II-XII intact bilaterally, moves all extremities, no focal motor deficits and no sensory deficits noted Sensorium / Orientation: alert Motor Exam: strength 5/5 throughout Psych mental status grossly normal MDM MDM MDM Narrative Medical decision making narrative: The skin tears were cleaned and Steri-Strips were applied. Dressings were applied. Patient tolerated this well. Patient was instructed to keep to skin tears clean and dry. Patient was given head injury instructions. Patient was instructed to follow-up with his primary care physician in 5 to 7 days. Patient understood and was agreeable with the plan. All questions were answered. Discharge Plan Triage Chief Complaint: Fall ED Provider: Giancarlo Marquis Dx/Rx/DC Orders Clinical Impression: Multiple skin tears, Cancer of upper lobe of left lung, Fall Instructions: ED Skin Tear (Skin Avulsion), ED Fall Prevention Prescriptions: No Action aspirin [Adult Aspirin Regimen] 81 mg tablet,delayed release (DR/EC) 81 mg PO QODAY sodium chloride 1 gram tablet 1,000 mg PO BID Patient Comments: TAKE 1 TABLET BY MOUTH TWICE A DAY magnesium oxide 400 mg magnesium tablet 400 mg PO BID (DME) Disability Placard See Rx Instructions .Route .MEDSUPPLY Qty: 1 0RF Rx Instructions: Expires 08/02/2026 Zyrtec 10 mg capsule 10 mg PO DAILY PRN (Reason: allergy symptoms) triamcinolone acetonide [Nasacort] 55 mcg aerosol,spray 1 spray intranasal DAILY Rx Instructions: administer into each nostril levothyroxine 100 mcg tablet 100 mcg PO QDAY hydrocortisone 10 mg tablet 5 mg PO BIDCM Rx Instructions: 5mg am, 2.5 mg mid afternoon multivitamin 1 EACH tablet 1 ea PO DAILY Patient Comments: vitamin supplement hydroxychloroquine 200 mg tablet 200 mg PO DAILY Patient Comments: arthritis omeprazole 40 MG capsule,delayed release(DR/EC) 40 mg PO DAILY cholecalciferol (vitamin D3) 1,000 UNIT tablet 1,000 unit PO BID albuterol sulfate [ProAir HFA] 90 mcg/actuation HFA aerosol inhaler 2 inh inhalation Q4H PRN (Reason: shortness of breath or wheezing) triamcinolone acetonide 0.1 % cream 1 applic TOPICAL BID Patient Comments: apply to affected area twice a day for 2 weeks then TAKE A WEEK OFF BEFORE RESUMING NEEDED ascorbic acid (vitamin C) 1,000 mg capsule 1 g PO DAILY clobetasol 0.05 % cream 1 applic TOPICAL BID Patient Comments: apply topically to affected area OF THE body twice a day for 2 we... (REFER TO PRESCRIPTION NOTES). atorvastatin 40 mg tablet 40 mg PO DAILY potassium chloride 20 mEq tablet,ER particles/crystals 40 meq PO DAILY 30 Days Qty: 0 0RF Tecentriq 1,200 mg/20 mL (60 mg/mL) solution 60 mg IV UD Patient Comments: Per Dr. Murcia Rx Instructions: Per Dr. Murcia losartan 25 mg tablet See Rx Instructions .ROUTE .COMPLEX Qty: 90 3RF Dose Instruction: TAKE 1 TABLET BY MOUTH EVERY DAY Rx Instructions: TAKE 1 TABLET BY MOUTH EVERY DAY umeclidinium 62.5 mcg/actuation blister with device 1 inh inhalation DAILY Qty: 3 3RF fluticasone furoate-vilanterol [Breo Ellipta] 200-25 mcg/dose blister with device 1 inh inhalation QDAY Qty: 3 3RF Rx Instructions: after inhalation, rinse mouth with water and spit out; do not swallow furosemide 20 mg tablet 20 mg PO DAILY Qty: 90 3RF Primary Care Provider: Clay Warren Referrals: Clay Warren MD [Primary Care Provider] - Print Language: Sinhala Disposition Disposition: Home, Self Care
[2024-02-12 14:08] VITALS: BP 139/88; PULSE 76; RESP 15; TEMP 36.3; O2SAT 96
== END 2024-02-12 14:09 | disposition home or self-care (01) ==
LOC: ED 13:49
PROVIDERS: Emergency Provider Emergency Medicine; PCP Family Medicine; Visit Provider Emergency Medicine
DX: S41.111A Laceration without foreign body of right upper arm, initial encounter (principal); C34.12 Malignant neoplasm of upper lobe, left bronchus or lung; I50.22 Chronic systolic (congestive) heart failure; J44.9 Chronic obstructive pulmonary disease, unspecified; I42.8 Other cardiomyopathies; I25.10 Atherosclerotic heart disease of native coronary artery without angina pectoris; Z87.891 Personal history of nicotine dependence; E78.5 Hyperlipidemia, unspecified; R26.2 Difficulty in walking, not elsewhere classified; W01.0XXA Fall on same level from slipping, tripping and stumbling without subsequent striking against object, initial encounter; Y93.01 Activity, walking, marching and hiking; S51.811A Laceration without foreign body of right forearm, initial encounter; E03.9 Hypothyroidism, unspecified; K21.9 Gastro-esophageal reflux disease without esophagitis; Z95.810 Presence of automatic (implantable) cardiac defibrillator
CPT/HCPCS: 99283

== ENCOUNTER 2024-02-13 12:05 | Observation (INO) | payer MEDICARE, OTHER, SELFPAY ==
[2024-02-13] VITALS (15 sets, daily range): BP systolic 114–157; BP diastolic 50–82; PULSE 77–105; RESP 16–21; TEMP 36.4–37.7; O2SAT 92–100; BMI 20.2; BMI 19.8
--- NOTE | 2024-02-13 12:41 | EKG12_ITS ---
Test Reason : SOB Blood Pressure : / mmHG Vent. Rate : 099 BPM Atrial Rate : 099 BPM P-R Int : 226 ms QRS Dur : 108 ms QT Int : 370 ms P-R-T Axes : 000 -12 048 degrees QTc Int : 474 ms Poor data quality, interpretation may be adversely affected Sinus rhythm with 1st degree A-V block Low voltage QRS Incomplete right bundle branch block Nonspecific T wave abnormality Abnormal ECG Confirmed by Hany Kennedy ([id number]), editor index OSIEL TRAN ([id number]) on 02/15/2024 8:19:15 AM Referred By: Confirmed By:Hany Kennedy
--- NOTE | 2024-02-13 12:44 | ED.VIS.DYS ---
HPI History of Present Illness Chief Complaint: Shortness of Breath Informant: patient, family and EMS Narrative Narrative: 73-year-old male history of lung cancer, COPD (chronic respiratory failure with hypoxia on home O2) and nonischemic cardiomyopathy/CHF presenting to the emergency room with generalized weakness. The patient states that he was seen in the emergency department yesterday with skin tears following a mechanical fall. States when he was in bed this morning and got up he had a lot of weakness and was unable to really sit up. He states that he felt somewhat more short of breath than normal. Currently his biggest complaint is weakness. He did not get his normal bagel and something to drink this morning and would like something to drink. Patient denies any fevers. No change in cough. He denies chest pain. [facility] Medical History History of chronic CHF Chronic respiratory failure with hypoxia GERD (gastroesophageal reflux disease) Hypothyroidism Debility Lung cancer Anemia Arthritis Lesion of pelvic bone Pneumothorax after biopsy Secondary pulmonary arterial hypertension Nonischemic cardiomyopathy Severe left ventricular systolic dysfunction Atherosclerotic heart disease of [place] coronary artery without angina pectoris PVD (peripheral vascular disease) Stage 3 severe COPD by GOLD classification Hyperlipidemia CHF (congestive heart failure), NYHA class I Psoriatic arthritis Home Medications ?Medication ?Instructions ?Recorded ?Last Taken ?Type multivitamin 1 ea PO DAILY supplement 08/27/16 10/21/23 History atezolizumab 1,200 mg/20 mL (60 60 mg IV UD CANCER 08/27/18 2 Weeks Ago History mg/mL) intravenous solution ~12/12/19 ([employer]) cholecalciferol (vitamin D3) 25 1,000 unit PO BID SUPPLEMENT 12/01/18 10/21/23 History mcg (1,000 unit) tablet omeprazole 40 mg capsule,delayed 40 mg PO DAILY GERD 12/01/18 10/21/23 History release [facility] 10/[facility]/23 History release (Adult Aspirin Regimen) sodium chloride 1 gram tablet 1,000 mg PO BID 10/15/20 10/21/23 History hydroxychloroquine 200 mg tablet 200 mg PO DAILY ARTHRITIS 04/15/21 10/21/23 History magnesium oxide 400 mg PO BID 04/15/21 10/21/23 History Disability Placard #1 ea 12/17/21 Unknown Rx cetirizine 10 mg capsule (Zyrtec) 10 mg PO DAILY PRN allergy symptoms 11/05/21 10/21/23 History triamcinolone acetonide 55 mcg 1 spray intranasal DAILY 04/22/22 Unknown History nasal spray aerosol (Nasacort) losartan 25 mg tablet See Rx Instructions .Route 03/23/23 10/21/23 Rx .COMPLEX #90 tabs albuterol sulfate 90 mcg/actuation 2 inh inhalation Q4H PRN shortness 10/21/23 Unknown History aerosol inhaler (ProAir HFA) of breath or wheezing ascorbic acid (vitamin C) 1,000 mg 1 g PO DAILY 10/21/23 Unknown History capsule atorvastatin 40 mg tablet 40 mg PO DAILY Patient wants 10/21/23 10/20/23 History delivered to his home clobetasol 0.05 % topical cream 1 applic topical BID 10/21/23 10/15/23 History triamcinolone acetonide 0.1 % 1 applic topical BID 10/21/23 10/14/23 History topical cream potassium chloride 20 mEq 40 meq (2 x 20 mEq) PO DAILY 10/22/23 10/21/23 Rx tablet,extended release(part/cryst) supplement 30 days #0 tabs fluticasone furoate 200 1 inh inhalation QDAY #3 ea 10/29/23 Unknown Rx mcg-vilanterol 25 mcg/dose inhalation powder (Breo Ellipta) umeclidinium 62.5 mcg/actuation 1 inh inhalation DAILY #3 ea 10/29/23 Unknown Rx blister powder for inhalation hydrocortisone 10 mg tablet 5 mg PO BIDCM 01/26/24 Unknown History levothyroxine 100 mcg tablet 100 mcg PO QDAY 01/26/24 Unknown History furosemide 20 mg tablet 20 mg PO DAILY #90 tabs 01/29/24 Unknown Rx Allergy/AdvReac Type Severity Reaction Status Date / Time No Known Allergies Allergy Verified 02/13/24 12:10 Family History Mother Heart disease Brother CVA (cerebral vascular accident) Father Cancer brain Grandmother Diabetes Surgical History History of appendectomy (~12/26/19) Implantable cardioverter-defibrillator (ICD) in situ (12/27/16) Social History household members: spouse housing: house Smoking Status: Former smoker how long ago did patient quit smokin, 1.5p/day second hand exposure: Yes alcohol intake: never substance use type: does not use caffeine: Yes Type: coffee Number of servings: 2 what type of physical activity do you participate in: walking frequency: 3-4 times per week ROS ROS ED ROS Narrative Generalized weakness Constitutional Constitutional ED: Denies chills, fever(s) or weight loss Eyes Eyes: Denies change in vision or diplopia ENT ENT ED: Denies ear pain, rhinorrhea or sore throat Cardiovascular Cardiovascular: Denies chest pain, orthopnea, palpitations or racing heartbeat Respiratory/Chest Respiratory/Chest: Reports cough, dyspnea and other Details: See history of present illness ; Denies orthopnea Gastrointestinal Gastrointestinal: Denies abdominal pain, diarrhea, nausea or vomiting Genitourinary Genitourinary ED: Denies dysuria, hematuria or urinary frequency Musculoskeletal Musculoskeletal: Denies arthralgias or myalgias Integumentary Reports other Details: Multiple bruises and skin tears ; Denies abscess or rash Neurologic Neurologic: Denies headache(s) or weakness Psychiatric Psychiatric: Denies anxiety, depression, suicidal ideation or suicidal thoughts Endocrine Endocrinology: Denies polydipsia, polyphagia or polyuria Allergic/Immunologic Allergic/Immunologic ED: Denies mouth swelling, tongue swelling or urticaria EXAM Physical Exam Narrative Exam Narrative: Frail elderly male sitting up in the bed drinking a Sprite Const Vital Signs: 02/13/24 12:05 02/13/24 12:10 02/13/24 12:53 Temperature 99.1 F Temperature Source Oral Pulse Rate 105 H Respiratory Rate 20 H Respiratory Effort Short of Breath Respiratory Depth Normal Respiratory Pattern Tachypnea Blood Pressure 130/82 H Blood Pressure Mean 98 Pulse Ox 92 95 Oxygen Delivery Method Room Air Room Air Nasal Cannula Oxygen Flow Rate (L/min) 5 02/13/24 12:53 02/13/24 13:05 02/13/24 14:00 Temperature 99 F Temperature Source Temporal Pulse Rate 100 94 87 Respiratory Rate 20 H 18 21 H Respiratory Effort Respiratory Depth Respiratory Pattern Normal Blood Pressure 114/51 L 138/53 H Blood Pressure Mean 72 81 Pulse Ox 94 100 Oxygen Delivery Method Nasal Cannula Nasal Cannula Oxygen Flow Rate (L/min) 5 02/13/24 15:00 02/13/24 15:08 Temperature 99.3 F H 99.3 F H Temperature Source Oral Pulse Rate 88 88 Respiratory Rate 20 H 20 H Respiratory Effort Respiratory Depth Respiratory Pattern Blood Pressure 136/50 H 136/50 H Blood Pressure Mean 78 78 Pulse Ox 100 100 Oxygen Delivery Method Nasal Cannula Oxygen Flow Rate (L/min) Positive well nourished and well developed General Appearance ED: well developed and NAD HEENT Reports normocephalic, head/scalp atraumatic and moist mucous membranes Eyes PERRL and EOMs intact bilaterally Neck no lymphadenopathy, supple and no JVD Resp normal respiratory effort and clear to auscultation bilaterally Cardio regular rate, regular rhythm and no murmurs GI normal to inspection, nondistended, normoactive bowel sounds and non-tender Palpation: soft Back/Spine no CVA tenderness and normal ROM Extremity normal to inspection General Extremety ED: Negative for edema General Extremity: Negative for edema Neuro oriented x3 and CN's II-XII intact bilaterally Sensorium / Orientation: alert Motor Exam: strength 5/5 throughout Psych mental status grossly normal Mood & Affect: Negative for depressed or tearful Skin no rashes or lesions noted Skin Narrative: Patient has multiple areas of ecchymosis on his body and skin tears of the arms particularly the right which are bandaged. MDM MDM MDM Narrative Medical decision making narrative: Differential diagnosis includes but not limited to febrile illnesses like pneumonia and viral syndromes, anemia, electrolyte abnormalities, pneumothorax, COPD exacerbation, dehydration, UTI White count returns at 5.3 with a hemoglobin of 10.6 platelet count of 141 coags are normal BUN of 23 creatinine 1.41 liver enzymes within normal limits except for a AST of 45 troponin is slightly elevated 80 EKG shows a sinus rhythm with a first-degree block at a rate of 99 bpm. My independent interpretation of the chest x-ray is chronic changes but no acute infiltrate. patient is globally weak unable to get out of bed by himself and care for himself. He lives at home. Patient on home medications and one of his home medications he is hydrocortisone. Gave him a dose of IV Solu-Medrol and a DuoNeb. History & Record Review Discussion w/independent historian: Patient and Significant other Lab Data Attestation: I reviewed the patient's lab results. Labs: Laboratory Results - last 24 hr 02/13/24 02/13/24 12:57 13:14 WBC 5.3 RBC 3.31 L Hgb 10.6 L Hct 32.9 L MCV 99.4 H MCH 32.0 MCHC 32.2 RDW Std Deviation 46.6 H RDW Coeff of Sydni 13.1 Plt Count 141 L MPV 9.7 Immature Gran % (Auto) 0.400 Neut % (Auto) 69.1 Lymph % (Auto) 15.1 L Gaines % (Auto) 12.5 H Eos % (Auto) 2.1 Baso % (Auto) 0.8 Absolute Neuts (auto) 3.7 Absolute Lymphs (auto) 0.80 L Nucleated RBC % 0 PT 13.7 INR 1.1 APTT 35.7 Sodium 144 Potassium 3.8 Chloride 108 H Carbon Dioxide 29.0 Anion Gap 7 BUN 23 H Creatinine 1.41 H Estim Creat Clear Calc 36.50 Est GFR (MDRD) Af Amer 63 Est GFR (MDRD) Non-Af 52 L BUN/Creatinine Ratio 16.3 Glucose 122 H Calcium 9.4 Total Bilirubin 0.50 Direct Bilirubin 0.15 AST 45 H ALT 33 Alkaline Phosphatase 56 Troponin I High Sens 80 H Total Protein 7.1 Albumin 3.6 Globulin 3.5 Urine Color Yellow Urine Clarity Clear Urine pH 6.0 Ur Specific [place] 1.010 Urine Protein 15 H Urine Glucose (UA) Normal Urine Ketones Negative Urine Occult Blood Negative Urine Nitrite Negative Urine Bilirubin Negative Urine Urobilinogen Normal Ur Leukocyte Esterase 25 H Urine RBC 0 SEEN Urine WBC 0 SEEN Ur Squamous Epith Cells 0-5 SEEN Urine Bacteria 0 SEEN Urine Mucus 0 SEEN EKG Initial EKG: Attestation: I personally reviewed and interpreted this EKG as follows: Comments: Sinus rhythm with first-degree AV block ventricular rate of 99 bpm Management Discussion w/another healthcare provider: Hospitalist (Dr. Benton) Discharge Plan Dx/Rx/DC Orders Clinical Impression: COVID-19, Stage 3 severe COPD by GOLD classification, Weakness Disposition Disposition: [facility]
--- NOTE | 2024-02-13 12:45 | RAD_ITS ---
EXAM: XR CHEST, 1 VIEW CLINICAL INDICATION: seen yesterday in er for fall. c/o weakness and sob. TECHNIQUE: Frontal view of the chest. COMPARISON: 10/21/2023 FINDINGS: LUNGS AND PLEURAL SPACES: Hyperinflated lungs with diffuse interstitial prominence suggesting COPD. No definite focal pulmonary opacity. No pneumothorax. No effusion. HEART: No significant abnormality. Cardiac silhouette not enlarged. MEDIASTINUM: Central airways and mediastinal contour are unremarkable. BONES/JOINTS: No significant abnormality. No acute fracture. SOFT TISSUES: No significant abnormality. VASCULATURE: Atherosclerosis. TUBES, LINES AND DEVICES: Left-sided AICD. RAD/Chest 1 View (Portable) IMPRESSION: Hyperinflated lungs with diffuse interstitial prominence suggesting COPD. No definite focal pulmonary opacity. Note that the left upper lobe disease previously identified may be obscured by the patient''s cardiac device. Electronically Signed: Marc Howe DO at 12:55 EDT ,
[2024-02-13] MEDS: Ipratropium/Albuterol Sulfate 3 ML AMPUL.NEB INHALATION ×3 (12:51→22:50)
[2024-02-13 13:03] LABS: Bacteria 0 SEEN /hpf (None Seen); Mucous, Urine 0 SEEN /hpf (<or=2+); Red Blood Cells-Urine 0 SEEN /hpf (0-5); White Blood Cells 0 SEEN /hpf (0-5)
[2024-02-13 13:05] LABS: Color, Urine Yellow (Yellow); Glucose, Dipstick Normal (Normal); Ketone-Dipstick Negative (Negative); Leukocyte Esterase-Dipstick 25 /ul (Negative); Nitrite-Dipstick Negative (Negative); Occult Blood-Urine Negative /ul (Negative); Protein-Dipstick 15 mg/dl (Negative); Urine Bilirubin Dipstick Negative (Negative); Urine Clarity Clear (Clear); Urine Urobilinogen Normal (Normal)
[2024-02-13] MEDS: 0.9% Normal Saline (1000mL) 1,000 ML 1000 ML IV (13:15)
[2024-02-13 13:20] LABS: Squamous Epithelial Cells - UA 0-5 SEEN /hpf (0-5)
[2024-02-13 13:23] LABS: Absolute Neutrophil Count 3.7 X10^3/uL (2.0-7.7); Basophil# 0.04 X10^3/uL; Basophil% 0.8 % (0-1); Eosinophil# 0.11 X10^3/uL; Eosinophils% 2.1 % (0-5); Hematocrit 32.9 % (40-54); Hemoglobin 10.6 g/dL (13.0-16.5); Lymphocyte % 15.1 % (19-41); Mean Corp Hgb Conc 32.2 g/dL (32-36); Mean Corpuscular Volume 99.4 fL (80-94); Mean Platelet Vol. 9.7 fl (6.2-12.0); Monocyte# 0.66 X10^3/uL; Monocyte% 12.5 % (0-10); NRBC Flagged by Analyzer 0 % (0-5); Neutrophil # 3.67 X10^3/uL (2.7-7.7); Neutrophil % 69.1 % (47-70); Platelet Count 141 K/mm3 (150-450); RBC Distribution Width CV 13.1 % (11.6-14.6); RBC Distribution Width SD 46.6 fl (35.1-43.9); Red Blood Count 3.31 M/mm3 (4.6-6.2); White Blood Count 5.3 K/mm3 (4.4-11.0)
[2024-02-13 13:43] LABS: AST(SGOT) 45 U/L (15-37); Alanine Aminotransfer ALT/SGPT 33 U/L (16-61); Albumin, Serum 3.6 g/dL (3.2-5.0); Alkaline Phosphatase 56 U/L (45-117); Anion Gap 7 (5-15); BUN 23 mg/dL (7-18); BUN/Creat Ratio 16.3 RATIO (10-20); Bilirubin, Direct 0.15 mg/dL (0.00-0.30); Calcium,Total 9.4 mg/dL (8.5-10.1); Chloride 108 mmol/L (98-107); Creatinine, Serum 1.41 mg/dL (0.70-1.30); EST Glomerular Filtration Rate 52 mL/min (>60); Est Glom Filt Rate - Afr Amer 63 mL/min (>60); Globulin 3.5 g/dL (2.2-4.2); Glucose 122 mg/dL (74-106); Potassium 3.8 mmol/L (3.5-5.1); Protein, Total 7.1 g/dL (6.4-8.2); Sodium Level 144 mmol/L (136-145); Troponin-I HS 80 pg/mL (3.0-78.0)
[2024-02-13 13:44] LABS: International Normalized Ratio 1.1; Prothrombin Time (Protime)PT. 13.7 SECONDS (11.7-14.9)
[2024-02-13 13:45] LABS: Partial Thromboplast Time 35.7 Seconds (24.1-36.2)
[2024-02-13] MEDS: MethylPREDNISolone 125 MG/2 ML Vial 60 MG IV (15:25)
--- NOTE | 2024-02-13 15:37 | HP.PCM.HOS_ITS ---
HPI - General General Date of Admission: 02/13/24 Date of Service: 02/13/24 Chief Complaint: Weakness HPI Narrative JIGNESH LOPEZ, is a 73 M with a significant history of stage III severe COPD by Gold classification; left upper lobe lung cancer in remission; and permanent pacemaker with defibrillator who presents to the emergency department with increased weakness on the same day of presentation. Patient was at bedside reported that the patient has been weak but the day of presentation his weakness was CVA. Patient was so weak to the point that he could not get up from the bed. Of note patient was at the hospital the day before presentation because he fell and had a laceration at his right arm. Also, patient reports being a little short of breath above his baseline. Is out of breath above baseline. said the patient was short of breath because he was lying flat while waiting for the paramedics to bring him to the emergency department. At the emergency department patient was found to be on his baseline oxygen of 5 L. Of note patient's denies wheezing. He is not coughing more than his baseline. However patient reports sneezing. [facility] Medical History History of chronic CHF Chronic respiratory failure with hypoxia GERD (gastroesophageal reflux disease) Hypothyroidism Debility Lung cancer Anemia Arthritis Lesion of pelvic bone Pneumothorax after biopsy Secondary pulmonary arterial hypertension Nonischemic cardiomyopathy Severe left ventricular systolic dysfunction Atherosclerotic heart disease of [place] coronary artery without angina pectoris PVD (peripheral vascular disease) Stage 3 severe COPD by GOLD classification Hyperlipidemia CHF (congestive heart failure), NYHA class I Psoriatic arthritis Home Medications ?Medication ?Instructions ?Recorded ?Last Taken ?Type multivitamin 1 ea PO DAILY supplement 08/27/16 10/21/23 History atezolizumab 1,200 mg/20 mL (60 60 mg IV UD CANCER 08/27/18 2 Weeks Ago History mg/mL) intravenous solution ~12/12/19 ([facility]) cholecalciferol (vitamin D3) 25 1,000 unit PO BID SUPPLEMENT 12/01/18 10/21/23 History mcg (1,000 unit) tablet omeprazole 40 mg capsule,delayed 40 mg PO DAILY GERD 12/01/18 10/21/23 History release [facility] 81 mg tablet,[facility]20[facility]23 History release (Adult Aspirin Regimen) sodium chloride 1 gram tablet 1,000 mg PO BID 10/15/20 10/21/23 History hydroxychloroquine 200 mg tablet 200 mg PO DAILY ARTHRITIS 04/15/21 10/21/23 History magnesium oxide 400 mg PO BID 04/15/21 10/21/23 History Disability Placard #1 ea 08/02/21 Unknown Rx cetirizine 10 mg capsule (Zyrtec) 10 mg PO DAILY PRN allergy symptoms 11/05/21 10/21/23 History triamcinolone acetonide 55 mcg 1 spray intranasal DAILY 04/22/22 Unknown History nasal spray aerosol (Nasacort) losartan 25 mg tablet See Rx Instructions .Route 03/23/23 10/21/23 Rx .COMPLEX #90 tabs albuterol sulfate 90 mcg/actuation 2 inh inhalation Q4H PRN shortness 10/21/23 Unknown History aerosol inhaler (ProAir HFA) of breath or wheezing ascorbic acid (vitamin C) 1,000 mg 1 g PO DAILY 10/21/23 Unknown History capsule atorvastatin 40 mg tablet 40 mg PO DAILY Patient wants 10/21/23 10/20/23 History delivered to his home clobetasol 0.05 % topical cream 1 applic topical BID 10/21/23 10/15/23 History triamcinolone acetonide 0.1 % 1 applic topical BID 10/21/23 10/14/23 History topical cream potassium chloride 20 mEq 40 meq (2 x 20 mEq) PO DAILY 10/22/23 10/21/23 Rx tablet,extended release(part/cryst) supplement 30 days #0 tabs fluticasone furoate 200 1 inh inhalation QDAY #3 ea 10/29/23 Unknown Rx mcg-vilanterol 25 mcg/dose inhalation powder (Breo Ellipta) umeclidinium 62.5 mcg/actuation 1 inh inhalation DAILY #3 ea 10/29/23 Unknown Rx blister powder for inhalation hydrocortisone 10 mg tablet 5 mg PO BIDCM 01/26/24 Unknown History levothyroxine 100 mcg tablet 100 mcg PO QDAY 01/26/24 Unknown History furosemide 20 mg tablet 20 mg PO DAILY #90 tabs 01/29/24 Unknown Rx Allergy/AdvReac Type Severity Reaction Status Date / Time No Known Allergies Allergy Verified 02/13/24 12:10 Family History Mother Heart disease Brother CVA (cerebral vascular accident) Father Cancer brain Grandmother Diabetes Surgical History History of appendectomy (~12/26/19) Implantable cardioverter-defibrillator (ICD) in situ (12/27/16) Social History household members: spouse housing: house Smoking Status: Former smoker how long ago did patient quit smokin, 1.5p/day second hand exposure: Yes alcohol intake: never substance use type: does not use caffeine: Yes Type: coffee Number of servings: 2 what type of physical activity do you participate in: walking frequency: 3-4 times per week ROS ROS Narrative Pertinent positives and pertinent negatives as noted in HPI. All other systems were reviewed and are negative Vital Signs Vital Signs Vital Signs: 02/13/24 12:05 02/13/24 12:10 02/13/24 12:53 Temperature 99.1 F Temperature Source Oral Pulse Rate 105 H Respiratory Rate 20 H Respiratory Effort Short of Breath Respiratory Depth Normal Respiratory Pattern Tachypnea Blood Pressure 130/82 H Blood Pressure Mean 98 Pulse Ox 92 95 Oxygen Delivery Method Room Air Room Air Nasal Cannula Oxygen Flow Rate (L/min) 5 02/13/24 12:53 02/13/24 13:05 02/13/24 14:00 Temperature 99 F Temperature Source Temporal Pulse Rate 100 94 87 Respiratory Rate 20 H 18 21 H Respiratory Effort Respiratory Depth Respiratory Pattern Normal Blood Pressure 114/51 L 138/53 H Blood Pressure Mean 72 81 Pulse Ox 94 100 Oxygen Delivery Method Nasal Cannula Nasal Cannula Oxygen Flow Rate (L/min) 5 02/13/24 15:00 02/13/24 15:08 Temperature 99.3 F H 99.3 F H Temperature Source Oral Pulse Rate 88 88 Respiratory Rate 20 H 20 H Respiratory Effort Respiratory Depth Respiratory Pattern Blood Pressure 136/50 H 136/50 H Blood Pressure Mean 78 78 Pulse Ox 100 100 Oxygen Delivery Method Nasal Cannula Oxygen Flow Rate (L/min) Weight Weight: 55.3 kg Body Mass Index (BMI) 20.2 Physical Exam Narrative Physical exam: General: Well-nourished, well-developed. Head: Normocephalic, atraumatic, no tenderness Eyes: Vision is grossly intact. EOMI ENT, no trauma, moist mucous membranes, no rhinorrhea Neck: Nontender, No thyromegaly. CVS: Regular rate and rhythm. S1-S2 present. No murmur, gallop or rub. Respiratory : 5 L of nasal cannula oxygen. Rhonchi, chest wall nontender Abdomen: Soft, nontender, nondistended, normal bowel sounds, no masses : Deferred Back: Nontender, no CVA tenderness, no midline spinal tenderness, deformities, step-offs Extremities: Nontender full range of motion, no trauma Skin: Three lacerations on right upper arm. Scattered ecchymosis and scattered hyperpigmentation on entire body. Neuro: Alert, oriented, cranial nerves II through XII grossly intact. Psychiatry: Normal mood. Normal affect. Not depressed. Not anxious. Results Lab / Micro Data 02/13/24 13:14 02/13/24 13:14 Labs: Laboratory Results - last 24 hr 02/13/24 12:57: Urine Color Yellow, Urine Clarity Clear, Urine pH 6.0, Ur Specific [place] 1.010, Urine Protein 15 H, Urine Glucose (UA) Normal, Urine Ketones Negative, Urine Occult Blood Negative, Urine Nitrite Negative, Urine Bilirubin Negative, Urine Urobilinogen Normal, Ur Leukocyte Esterase 25 H, Urine RBC 0 SEEN, Urine WBC 0 SEEN, Ur Squamous Epith Cells 0-5 SEEN, Urine Bacteria 0 SEEN, Urine Mucus 0 SEEN 02/13/24 13:14: WBC 5.3, RBC 3.31 L, Hgb 10.6 L, Hct 32.9 L, MCV 99.4 H, MCH 32.0, MCHC 32.2, RDW Std Deviation 46.6 H, RDW Coeff of Sydni 13.1, Plt Count 141 L, MPV 9.7, Immature Gran % (Auto) 0.400, Neut % (Auto) 69.1, Lymph % (Auto) 15.1 L, Dawson % (Auto) 12.5 H, Eos % (Auto) 2.1, Baso % (Auto) 0.8, Absolute Neuts (auto) 3.7, Absolute Lymphs (auto) 0.80 L, Nucleated RBC % 0, PT 13.7, INR 1.1, APTT 35.7, Sodium 144, Potassium 3.8, Chloride 108 H, Carbon Dioxide 29.0, Anion Gap 7, BUN 23 H, Creatinine 1.41 H, Estim Creat Clear Calc 36.50, Est GFR (MDRD) Af Amer 63, Est GFR (MDRD) Non-Af 52 L, BUN/Creatinine Ratio 16.3, G lucose 122 H, Calcium 9.4, Total Bilirubin 0.50, Direct Bilirubin 0.15, AST 45 H , ALT 33, Alkaline Phosphatase 56, Troponin I High Sens 80 H, Total Protein 7.1, Albumin 3.6, Globulin 3.5 Micro: Microbiology 02/13/24 12:50 Mucosa - Nose SARS-CoV-2, Influenza & RSV (PCR) - Final SARS-CoV-2 (COVID 19 PCR) Assessment & Plan Assessment/Plan (1) COVID-19: (2) Weakness: (3) Fall: QUALIFIERS: Encounter type: initial encounter Qualified Code(s): W19.XXXA - Unspecified fall, initial encounter (4) Multiple skin tears: (5) Stage 3 severe COPD by GOLD classification: PLAN: Plan JIGNESH LOPEZ, is a 73 M with a significant history of stage III severe COPD by Gold classification; left upper lobe lung cancer in remission; and permanent pacemaker with defibrillator who presents to the emergency department with increased weakness on the same day of presentation; who fell a day before presentation and sustained a laceration at his right; and found to have a COVID with reported mild increase in shortness of breath above baseline but with same oxygen requirement of 5 L Generalized weakness; and recent fall PT and OT to work with patient. Case management consult. COVID-19 infection with mild COPD as a patient Patient is on home hydrocortisone. Will escalate to Decadron 6 mg p.o. twice daily. Received Solu-Medrol 60 mg IV at the emergency department. Home inhalers to be continued. Mucinex ordered. Continue home Nasacort Multiple skin tears at right upper arm Dry dressing. Time spent in the patient's overall evaluation,decision-making process, review of diagnostic data, adjustment of management, discussion with other providers, nursing and ancillary staff involved in patient's care documentation, 72 minutes. Advance care planning: Discussed with patient and family advanced directives as well as CODE STATUS. Explained various CODE STATUS: FULL CODE, DNR CCA, DNR CCA with no intubation, and DNR CC- and what each meant. Patient elected to be a full code with CPR and intubation if warranted. Order was placed. Time spent on discussion 16 minutes.
[2024-02-13 16:48] LABS: Troponin-I HS 74 pg/mL (3.0-78.0)
[2024-02-13] MEDS: Magnesium Chloride 64 MG Delay Rel.Tablet 128 MG PO (21:22)
[2024-02-13] MEDS: Atorvastatin Calcium 40 MG Tablet PO (21:22)
[2024-02-13] MEDS: Enoxaparin 30 MG/0.3 ML Syringe SC (21:22)
[2024-02-13] MEDS: guaiFENesin 1,200 MG Tablet 1200 MG PO (21:22)
[2024-02-13] MEDS: Cholecalciferol (VIT D3) 25 MCG TABLET (1,000 UNITS) PO (21:22)
[2024-02-13] MEDS: Sodium Chloride 1 GM Tablet PO (21:25)
[2024-02-13] MEDS: Triamcinolone Acetonide 0.1% Cream 15 gm 1 APPLIC TOPICAL (21:27)
[2024-02-13] MEDS: Clobetasol Propionate 0.05% Cream 1 APPLIC TOPICAL (21:27)
[2024-02-13 22:29] LABS: Troponin-I HS 80 pg/mL (3.0-78.0)
[2024-02-14] VITALS (10 sets, daily range): BP systolic 118–164; BP diastolic 25–76; PULSE 60–81; RESP 17–18; TEMP 36.6–36.7; O2SAT 94–100
[2024-02-14 04:26] LABS: Absolute Lymphocyte Count 0.45 X10^3/uL (0.83-4.51); Absolute Neutrophil Count 4.1 X10^3/uL (2.0-7.7); Basophil# 0.01 X10^3/uL; Basophil% 0.2 % (0-1); Hematocrit 32.8 % (40-54); Hemoglobin 10.3 g/dL (13.0-16.5); Lymphocyte # 0.45 X10^3/ul (0.83-4.51); Mean Corp Hgb Conc 31.4 g/dL (32-36); Mean Corpuscular Hgb 31.8 pg (27.0-32.0); Mean Corpuscular Volume 101.2 fL (80-94); Mean Platelet Vol. 9.6 fl (6.2-12.0); Monocyte# 0.39 X10^3/uL; Monocyte% 7.8 % (0-10); NRBC Flagged by Analyzer 0 % (0-5); Neutrophil # 4.11 X10^3/uL (2.7-7.7); Neutrophil % 82.6 % (47-70); POSITIVE DIFFERENTIAL YES; Platelet Count 120 K/mm3 (150-450); RBC Distribution Width CV 12.9 % (11.6-14.6); Red Blood Count 3.24 M/mm3 (4.6-6.2)
[2024-02-14 04:45] LABS: Anion Gap 9 (5-15); BUN 25 mg/dL (7-18); BUN/Creat Ratio 22.5 RATIO (10-20); Chloride 113 mmol/L (98-107); Creatinine, Serum 1.11 mg/dL (0.70-1.30); EST Glomerular Filtration Rate 69 mL/min (>60); Est Glom Filt Rate - Afr Amer 84 mL/min (>60); Estimated Creatinine Clearance 45.19 ml/min; Glucose 130 mg/dL (74-106); Potassium 4.3 mmol/L (3.5-5.1); Sodium Level 142 mmol/L (136-145)
--- NOTE | 2024-02-14 05:08 | CPS ---
pt is on sleep lab S10 04/05 with 4L o2 bled in. pt tolerating well.
[2024-02-14] MEDS: Levothyroxine 100 MCG Tablet PO (05:17)
[2024-02-14] MEDS: Ipratropium/Albuterol Sulfate 3 ML AMPUL.NEB INHALATION ×2 (07:34→22:40)
--- NOTE | 2024-02-14 09:38 | PN.HOSP_ITS ---
Reason for Visit Reason for Visit: Diagnoses Chronic obstructive pulmonary disease, unspecified (02/13/24) Weakness (02/13/24) Other injury of unspecified body region, initial encounter (02/13/24) COVID-19 (02/13/24) Unspecified fall, initial encounter (02/13/24) Subjective Subjective Breathing better. Objective Data Objective Data Vital Signs: Vital Signs Temp Pulse Resp BP Pulse Ox O2 Del Method O2 Flow Rate 36.6 C 72 17 164/76 H 94 Nasal Cannula 5 02/14/24 03:48 02/14/24 07:25 02/14/24 07:25 02/14/24 03:48 02/14/24 07:25 02/14/24 08:23 02/14/24 08:23 Oxygen Flow Rate (L/min) 5 Oxygen Delivery Method Nasal Cannula Weight: 53.9 kg Body Mass Index (BMI) 19.8 Intake & Output: Intake and Output for Last 24 Hours 02/12/24 02/13/24 02/14/24 23:59 23:59 23:59 Intake Total 1000 / 1000 Output Total 350 / 350 0 / 0 Balance 650 / 650 0 / 0 Lab / Micro Data 02/14/24 04:15 02/14/24 04:15 Labs: Laboratory Results - last 24 hr 02/13/24 12:57: Urine Color Yellow, Urine Clarity Clear, Urine pH 6.0, Ur Specific [place] 1.010, Urine Protein 15 H, Urine Glucose (UA) Normal, Urine Ketones Negative, Urine Occult Blood Negative, Urine Nitrite Negative, Urine Bilirubin Negative, Urine Urobilinogen Normal, Ur Leukocyte Esterase 25 H, Urine RBC 0 SEEN, Urine WBC 0 SEEN, Ur Squamous Epith Cells 0-5 SEEN, Urine Bacteria 0 SEEN, Urine Mucus 0 SEEN 02/13/24 13:14: WBC 5.3, RBC 3.31 L, Hgb 10.6 L, Hct 32.9 L, MCV 99.4 H, MCH 32.0, MCHC 32.2, RDW Std Deviation 46.6 H, RDW Coeff of Sydni 13.1, Plt Count 141 L, MPV 9.7, Immature Gran % (Auto) 0.400, Neut % (Auto) 69.1, Lymph % (Auto) 15.1 L, Mason % (Auto) 12.5 H, Eos % (Auto) 2.1, Baso % (Auto) 0.8, Absolute Neuts (auto) 3.7, Absolute Lymphs (auto) 0.80 L, Nucleated RBC % 0, PT 13.7, INR 1.1, APTT 35.7, Sodium 144, Potassium 3.8, Chloride 108 H, Carbon Dioxide 29.0, Anion Gap 7, BUN 23 H, Creatinine 1.41 H, Estim Creat Clear Calc 36.50, Est GFR (MDRD) Af Amer 63, Est GFR (MDRD) Non-Af 52 L, BUN/Creatinine Ratio 16.3, G lucose 122 H, Calcium 9.4, Total Bilirubin 0.50, Direct Bilirubin 0.15, AST 45 H , ALT 33, Alkaline Phosphatase 56, Troponin I High Sens 80 H, Total Protein 7.1, Albumin 3.6, Globulin 3.5 02/13/24 16:21: Troponin I High Sens 74 02/13/24 21:55: Troponin I High Sens 80 H 02/14/24 04:15: WBC 5.0, RBC 3.24 L, Hgb 10.3 L, Hct 32.8 L, MCV 101.2 H, MCH 31.8, MCHC 31.4 L, RDW Std Deviation 48.0 H, RDW Coeff of Sydni 12.9, Plt Count 120 L, MPV 9.6, Immature Gran % (Auto) 0.400, Neut % (Auto) 82.6 H, Lymph % (Auto) 9.0 L, Mason % (Auto) 7.8, Eos % (Auto) 0.0, Baso % (Auto) 0.2, Absolute Neuts (auto) 4.1, Absolute Lymphs (auto) 0.45 L, Nucleated RBC % 0, Sodium 142, Potassium 4.3, Chloride 113 H, Carbon Dioxide 20.0 L, Anion Gap 9, BUN 25 H, Creatinine 1.11, Estim Creat Clear Calc 45.19, Est GFR (MDRD) Af Amer 84, Est GFR (MDRD) Non-Af 69, BUN/Creatinine Ratio 22.5 H, Glucose 130 H, Calcium 9.0 Micro: Microbiology 02/13/24 12:50 Mucosa - Nose SARS-CoV-2, Influenza & RSV (PCR) - Final SARS-CoV-2 (COVID 19 PCR) Radiography Diagnostic Testing: Radiology Impression Chest X-Ray 02/13/24 12:45 IMPRESSION: Hyperinflated lungs with diffuse interstitial prominence suggesting COPD. No definite focal pulmonary opacity. Note that the left upper lobe disease previously identified may be obscured by the patient''s cardiac device. Electronically Signed: Marc Howe, at 12:55 EDT , Physical Exam Const alert and no apparent distress HEENT head/scalp atraumatic and moist oral mucous membranes Resp normal respiratory effort and no retractions Resp Narrative: diminished breath sounds bilaterally. Cardio regular rate, regular rhythm, S1 normal heart sound and S2 normal heart sound GI normal to inspection, nondistended, normoactive bowel sounds, soft to palpation, non-tender and non-distended Neuro Sensorium / Orientation: awake and alert Psych affect normal Assessment & Plan Assessment/Plan (1) COVID-19: (2) Weakness: (3) Fall: QUALIFIERS: Encounter type: initial encounter Qualified Code(s): W19.XXXA - Unspecified fall, initial encounter (4) Multiple skin tears: (5) Stage 3 severe COPD by GOLD classification: PLAN: Plan Acute COPD exacerbation 2/2 acute COVID-19 infection * Stage 3 severe COPD by GOLD classification: * Improving. * Continue BDs and steroids. * follow up with pulmonary as outpt. Acute COVID-19 infection. * day 0 02/10 * on oxygen chronically at 4 liters/NC. I qualify this as severe as his sats dropped down to 94% * on dexamethasone 6 BID * will add remdesivir Debility * 2/2 above * PT OT eval and treat Chronic conditions: * Chronic hypoxic respiratory failure: on oxygen 4l/m at home. * Lung cancer: SQ cell. s/o resection. Follow up with [facility]. * CAD: stable. on ASA, atorvastatin, losartan * non-ischemic CM: EF 15-20%. No CHF exacerbation at this time. s/p AICD. * hypothyroidism: levothyroxine * Psoriatic arthritis: hydroxychloroquine * adrenal insufficiency: previously started on hydrocortisone for positve ACTH stim test. Likely will require steroid taper. VTE prophylaxis: LMWH. FULL CODE. Charges/Coding Visit Charges Inpatient E&M: 19554 Subs Hosp L2
[2024-02-14] MEDS: Enoxaparin 30 MG/0.3 ML Syringe SC ×2 (09:50→21:36)
[2024-02-14] MEDS: Magnesium Chloride 64 MG Delay Rel.Tablet 128 MG PO ×2 (09:51→21:30)
[2024-02-14] MEDS: Losartan Potassium 25 MG Tablet PO (09:52)
[2024-02-14] MEDS: Hydroxychloroquine 200 MG Tablet PO (09:52)
[2024-02-14] MEDS: Cholecalciferol (VIT D3) 25 MCG TABLET (1,000 UNITS) PO ×2 (09:52→21:30)
[2024-02-14] MEDS: dexAMETHasone 4 MG Tablet 6 MG PO ×2 (09:52→17:40)
[2024-02-14] MEDS: Pantoprazole Sodium 40 MG Tablet PO (09:52)
[2024-02-14] MEDS: Multivitamins,Therapeutic Tablet 1 TABLET PO (09:52)
[2024-02-14] MEDS: Ascorbic Acid 500 MG Tablet 1000 MG PO (09:52)
[2024-02-14] MEDS: Potassium Chloride Oral Tablet 20 MEQ 40 MEQ PO (09:53)
[2024-02-14] MEDS: Aspirin E.C. 81 MG Tablet PO (09:53)
[2024-02-14] MEDS: guaiFENesin 1,200 MG Tablet 1200 MG PO ×2 (09:53→21:30)
[2024-02-14] MEDS: Sodium Chloride 1 GM Tablet PO ×2 (09:53→21:30)
[2024-02-14] MEDS: Furosemide 20 MG Tablet PO (09:53)
[2024-02-14] MEDS: Fluticasone 0.05% 1 SPRAY NASAL.SRY NASAL (13:09)
[2024-02-14] MEDS: Triamcinolone Acetonide 0.1% Cream 15 gm 1 APPLIC TOPICAL ×2 (13:10→21:36)
[2024-02-14] MEDS: Clobetasol Propionate 0.05% Cream 1 APPLIC TOPICAL ×2 (13:15→21:33)
[2024-02-14 14:00] LABS: Alkaline Phosphatase 50 U/L (45-117)
[2024-02-14] MEDS: Remdesivir 200 MG in 0.9% Normal Saline (250mL Bag) 210 ML 250 MG IV (16:29)
[2024-02-14] MEDS: Atorvastatin Calcium 40 MG Tablet PO (21:31)
[2024-02-15] VITALS (8 sets, daily range): BP systolic 110–133; BP diastolic 50–60; PULSE 79–94; RESP 16–18; TEMP 36.7–36.8; O2SAT 86–100
[2024-02-15] MEDS: Levothyroxine 100 MCG Tablet PO (05:42)
[2024-02-15 06:42] LABS: Hemoglobin 8.3 g/dL (13.0-16.5); Mean Corp Hgb Conc 31.9 g/dL (32-36); Mean Platelet Vol. 9.9 fl (6.2-12.0); Platelet Count 161 K/mm3 (150-450); RBC Distribution Width CV 12.9 % (11.6-14.6); RBC Distribution Width SD 45.7 fl (35.1-43.9); Red Blood Count 2.68 M/mm3 (4.6-6.2); White Blood Count 5.5 K/mm3 (4.4-11.0)
[2024-02-15 07:22] LABS: ALB/GLOB Ratio 0.9 RATIO (0.9-2.4); AST(SGOT) 30 U/L (15-37); Alanine Aminotransfer ALT/SGPT 25 U/L (16-61); Albumin, Serum 2.7 g/dL (3.2-5.0); Alkaline Phosphatase 44 U/L (45-117); Anion Gap 4 (5-15); BUN 37 mg/dL (7-18); Calcium,Total 8.6 mg/dL (8.5-10.1); Chloride 111 mmol/L (98-107); Creatinine, Serum 1.12 mg/dL (0.70-1.30); EST Glomerular Filtration Rate 68 mL/min (>60); Est Glom Filt Rate - Afr Amer 83 mL/min (>60); Estimated Creatinine Clearance 44.78 ml/min; Globulin 3.1 g/dL (2.2-4.2); Glucose 133 mg/dL (74-106); Potassium 4.6 mmol/L (3.5-5.1); Protein, Total 5.8 g/dL (6.4-8.2); Sodium Level 140 mmol/L (136-145)
[2024-02-15] MEDS: Enoxaparin 30 MG/0.3 ML Syringe SC (08:52)
[2024-02-15] MEDS: dexAMETHasone 4 MG Tablet 6 MG PO (08:53)
[2024-02-15] MEDS: Ascorbic Acid 500 MG Tablet 1000 MG PO (08:53)
[2024-02-15] MEDS: Pantoprazole Sodium 40 MG Tablet PO (08:53)
[2024-02-15] MEDS: Potassium Chloride Oral Tablet 20 MEQ 40 MEQ PO (08:55)
[2024-02-15] MEDS: Magnesium Chloride 64 MG Delay Rel.Tablet 128 MG PO (08:55)
[2024-02-15] MEDS: Cholecalciferol (VIT D3) 25 MCG TABLET (1,000 UNITS) PO (08:56)
[2024-02-15] MEDS: Furosemide 20 MG Tablet PO (08:56)
[2024-02-15] MEDS: guaiFENesin 1,200 MG Tablet 1200 MG PO (08:56)
[2024-02-15] MEDS: Sodium Chloride 1 GM Tablet PO (08:56)
[2024-02-15] MEDS: Multivitamins,Therapeutic Tablet 1 TABLET PO (08:56)
[2024-02-15] MEDS: Fluticasone 0.05% 1 SPRAY NASAL.SRY NASAL (08:58)
[2024-02-15] MEDS: Triamcinolone Acetonide 0.1% Cream 15 gm 1 APPLIC TOPICAL (08:59)
[2024-02-15] MEDS: Clobetasol Propionate 0.05% Cream 1 APPLIC TOPICAL (08:59)
[2024-02-15] MEDS: Remdesivir 100 MG in 0.9% Normal Saline (250mL Bag) 230 ML 250 MG IV (09:01)
[2024-02-15] MEDS: Losartan Potassium 25 MG Tablet PO (09:04)
--- NOTE | 2024-02-15 10:40 | CASEMGMT ---
JANIE LYNN Assessment: Face to Face with pt for initial transition planning/care coordination assessment. RN SHANE introduced self and role at [facility], pt voices understanding and consents to assessment. Pt sitting up in chair in no distress, sitting in chair at bedside. Pt agreeable to discussing DC planning. Pt is A&O x4 and answers all questions appropriately at this time. Care providers, pharmacy, and demographics verified/updated. Admitting Dx: COVID 19 Weakness PCP: Kelvin Specialists: Liam - Immigration Patrol Inspector, Aquiles - Fiberglass Tube Molder, Barby - Oncologist, Anita - Project Intern, Hiram - Art Gallery Director, Zafar son - grinding wheel operator Preferred Pharmacy: [facility] Insurance: Medicare Prescription Benefit: yes LNOK: Shama - , Hilaria - Daughter Living Arrangements: Pt lives with in a 2 story house with 2 steps and rails to enter. Pt states I with ADLs and needs assistance with IADLs. Transportation: Pt drives him. DME: Wheeled walker, rollator, shower chair, raised toilet seat, bedside commode. Bipap machine, pt on continuous O2, [facility] O2 provider. Pt has portable O2 tank, has a pulse ox states it does not work on his fingers and interested in ear lobe pulse ox. HHC/SNF: Previously used [facility]. Previously in TCU. Pt states goal is to return home at DC. Awaiting therapy to work with pt, pt agreeable to placement if recommended. Pt preference is TCU. stated she wanted to make sure pt is safe before returning home, concerned she is not able to care for his needs. Pt states no further concerns/needs. CM to follow. Advised pt to ask CM if any further question/concerns/needs arise, voices understanding. Pt Goal: Home Plan: TBD, pending progress with therapy. Follow for therapy and change in O2 needs. Rosendo LIMA CM
--- NOTE | 2024-02-15 12:04 | CASEMGMT ---
Discharge Planning A list of?HH providers including quality and resource use data and consistent with the patient's preferred geographic region, medical needs, and insurance network was created in [facility] Guide.? This list was provided to the RN SHANE. Yareli Aleman, Discharge Planning Asst.
--- NOTE | 2024-02-15 12:35 | CASEMGMT ---
Addendum entered by Osiris Kinney 02/15/24 13:41: RN SHANE received call back from [facility] and they are able to accept patient with start of care for tomorrow. RN CM called and updated , she voiced appreciation and had no further questions or concerns. RN CM updated hospitalist and DC plan. Original Note: RN SHANE in to patient's room to discuss progress with therapy. Patient in room sitting in chair eating lunch. Patient states he would like to go home but requested RN CM to call . RN SHANE left HHC list at bedside. RN SHANE called , Shama, to discuss progress with therapy and observation level of care. requesting SNF, JANIE LYNN explained that due to patient being in observation level of care, [facility] would not pay for SNF placement at discharge. voiced understanding, RN SHANE discussed HHC at discharge for SN, PT, OT, and SW. RN SHANE reviewed HHC list with and prefers [facility]. JANIE LYNN explained HHC setup and that referral to be made. had no further questions or concerns. JANIE LYNN called [facility] and left message with referral, awaiting call back. CM will continue to follow this patient and plan for a safe discharge.
--- NOTE | 2024-02-15 13:17 | DS.PCM_ITS ---
Providers Date of Admission: 02/13/24 Primary Care Physician: Dr. Clay Warren MD Reason For Visit: COVID 19 WEAKNESS Diagnosis Discharge Diagnosis (1) COVID-19: Status: Acute Code(s): U07.1 - COVID-19 (2) Weakness: Status: Acute Code(s): R53.1 - Weakness (3) Fall: Status: Acute Code(s): W19.XXXA - Unspecified fall, initial encounter Qualifiers: Encounter type: initial encounter Qualified Code(s): W19.XXXA - Unspecified fall, initial encounter (4) Multiple skin tears: Status: Acute Code(s): T14.8XXA - Other injury of unspecified body region, initial encounter (5) Stage 3 severe COPD by GOLD classification: Status: Chronic Code(s): J44.9 - Chronic obstructive pulmonary disease, unspecified Medications at Discharge Home Medications multivitamin 1 ea PO DAILY supplement 08/27/16 atezolizumab 1,200 mg/20 mL (60 mg/mL) intravenous solution (Tecentriq) 60 mg IV UD CANCER 08/27/18 cholecalciferol (vitamin D3) 25 mcg (1,000 unit) tablet 1,000 unit PO BID SUPPLEMENT 12/01/18 omeprazole 40 mg capsule,delayed release 40 mg PO DAILY GERD 12/01/18 aspirin 81 mg tablet,delayed release ([facility]) [facility] sodium chloride 1 gram tablet 1,000 mg PO BID 10/15/20 hydroxychloroquine 200 mg tablet 200 mg PO DAILY ARTHRITIS 04/15/21 magnesium oxide 400 mg PO BID 04/15/21 Disability Placard #1 ea 08/02/21 cetirizine 10 mg capsule (Zyrtec) 10 mg PO DAILY PRN allergy symptoms 11/05/21 triamcinolone acetonide 55 mcg nasal spray aerosol (Nasacort) 1 spray intranasal DAILY 04/22/22 losartan 25 mg tablet See Rx Instructions .Route .COMPLEX #90 tabs 03/23/23 albuterol sulfate 90 mcg/actuation aerosol inhaler (ProAir HFA) 2 inh inhalation Q4H PRN shortness of breath or wheezing 10/21/23 ascorbic acid (vitamin C) 1,000 mg capsule 1 g PO DAILY 10/21/23 atorvastatin 40 mg tablet 40 mg PO DAILY Patient wants delivered to his home 10/21/23 clobetasol 0.05 % topical cream 1 applic topical BID 10/21/23 triamcinolone acetonide 0.1 % topical cream 1 applic topical BID 10/21/23 potassium chloride 20 mEq tablet,extended release(part/cryst) 40 meq (2 x 20 mEq) PO DAILY supplement 30 days #0 tabs 10/22/23 fluticasone furoate 200 mcg-vilanterol 25 mcg/dose inhalation powder (Breo Ellipta) 1 inh inhalation QDAY #3 ea 10/29/23 umeclidinium 62.5 mcg/actuation blister powder for inhalation 1 inh inhalation DAILY #3 ea 10/29/23 hydrocortisone 10 mg tablet 5 mg PO BIDCM 01/26/24 levothyroxine 100 mcg tablet 100 mcg PO QDAY 01/26/24 furosemide 20 mg tablet 20 mg PO DAILY #90 tabs 01/29/24 Froont wheeled walker #1 ea 02/15/24 prednisone 10 mg tablet 10 mg PO DAILY #40 tabs 02/15/24 Hospital Course Operations None Procedures EKG and - (Chest x-ray) Summary of Care Provided Minutes Spent on Discharge: 39 Hospital Course: Mr. Ramires is a 73-year-old white male with a history of severe COPD on chronic oxygen who presented to the emergency department [facility] on 02/13/2024 with generalized weakness that had been progressively getting worse. His presented with him and reported the patient had been weak but on the day of presentation his weakness was profoundly worse to the point where he could not get out of bed independently which previously had been able to do. She reports she has had several falls as of lately and had actually been emergency department due to a laceration on his right arm that occurred the day previously. Patient also reported that he was a bit short of breath above his baseline and because he was short of breath they called to bring him to emergency department. Upon arrival to the emergency department he was found to be on 5 L which he reported as his baseline. On further questioning the patient has been uptitrating his oxygen per discussion with Dr. Rodríguez a few months ago. He denied any wheezing and was not coughing any more than his baseline. He did report some intermittent sneezing. Vital signs on presentation showed a temperature of 99.1, heart rate 105, respiratory rate 20, blood pressure is 130/82 and oxygen saturation was 92% on room air. He was placed on his 5 L nasal cannula and he was 95% on this. CBC showed stable counts when compared to previous showing a chronic anemia and thrombocytopenia however his white count was normal. He did have a bit of a shift however it was monocytosis at 12.5%. Coags were unremarkable. His chemistry panel showed mild QUINN with a serum creatinine of 1.41 which resolved during his hospitalization. And mild AST elevation that resolved as well. His troponin was initially slightly elevated 80 with a repeat at 74. His UA was unremarkable. EKG was stable when compared to previous and chest x-ray showed lung hyperinflation with this diffuse interstitial prominence consistent with COPD and no focal pulmonary opacities. Rapid COVID/flu/RSV PCR was performed and positive for COVID-19. He was admitted to the medical floor and placed on remdesivir and Decadron. With time he should slowly improved. We confirmed that his outpatient prescription for oxygen was 2 L [id number] and his oxygen was down titrated. An ambulatory pulse ox was done on the day of discharge and was stable with his home oxygen of 2 L. Actually, at rest his oxygen saturations were 100% on room air. He was instructed to continue using his oxygen at 2 L and not uptitrate his oxygen unless his oxygen saturations are consistently less than 88%. Remdesivir was discontinued and he will continue steroid taper at discharge with 40 mg x 4 days, 30 mg x 4 days, 20 mg x 4 days, 10 mg x 4 days and then stop. We have asked that he follow-up with his primary rn lvn in the next 2 to 3 weeks. He was seen by physical and Occupational Therapy during his hospital course and they did recommend ongoing therapy at discharge. His was concerned as he had been falling at home. Unfortunately, he was admitted as observation and therefore did not qualify for inpatient skilled rehab coverage per Medicare guidelines at the time of discharge. Recommendations were discussed with the patient and family however they declined [id number] paying for SNF coverage at discharge but were amenable to home health care. We did recommend that he use his walker 100% of the time while he was ambulating at home. Family did state that they were just going to bring him back to the hospital if he has any more falls. It was discussed that he will need a full hospitalization that requires 3 midnights to qualify for ongoing rehab services as deemed by the emergency department and admitting provider. He and his voiced understanding but were frustrated with the situation, understandably so. Prescription for prednisone was sent to his local pharmacy. He was discharged home on 02/15/2024. Again we have recommended he use his walker at all times during ambulation to avoid balance losses. Discharge diagnoses: Acute exacerbation of COPD Acute on chronic hypoxic respiratory failure-acuity resolved Acute COVID-19 infection Chronic anemia Chronic thrombocytopenia COPD CKD stage II Hypertension GERD Debility/generalized weakness due to acute COVID-19 infection/chronic medical issues History of lung cancer status post resection-squamous cell CAD Hypothyroidism Nonischemic cardiomyopathy Psoriatic arthritis Chronic adrenal insufficiency Hypothyroidism History of hidradenitis Peripheral vascular disease Secondary pulmonary artery hypertension Physical Exam Const alert, oriented x3, no apparent distress and no limitations; Negative for average body habitus, healthy appearing or well nourished Constitutional Narrative: Older, chronically ill-appearing, white male, sitting up in a chair at the bedside, at bedside, patient appears comfortable and nontoxic however does appear chronically ill General Appearance: cooperative, comfortable, well kempt and well developed Orientation / Consciousness: awake, oriented to person and oriented to place Exam Limitations: no limitations Nutritional Appearance: thin HEENT normocephalic, head/scalp atraumatic and moist oral mucous membranes; Negative for hearing grossly normal bilaterally HEENT Narrative: Mild to moderate hearing loss, Mallampati is 2, no thrush, dentition is fair Eyes PERRL, EOMs intact bilaterally and conjunctivae normal Eyes Narrative: No scleral icterus Neck no lymphadenopathy and supple Neck Narrative: Trachea midline, no thyroid enlargement Resp normal respiratory effort, no retractions, no use of accessory muscles and clear to auscultation bilaterally Resp Narrative: Severely diminished diffusely but no adventitious sounds noted Auscultation: Negative for rales, rhonchi or wheezes Cardio regular rate, regular rhythm, S1 normal heart sound, S2 normal heart sound, no murmurs, no rub, no gallops and no clicks GI normal to inspection, nondistended, normoactive bowel sounds, soft to palpation and non-tender Extremity no clubbing, cyanosis or edema Extremity Narrative: Decrease lean muscle mass Skin skin turgor normal and no jaundice Skin Narrative: Skin is thin with multiple areas of ecchymosis, several skin tears in various stages of healing Neuro oriented x3, moves all extremities and no focal motor deficits Neuro Narrative: Significant generalized weakness noted-proximal greater than distal however improved from admission Speech: speech normal Psych affect normal Psych Narrative: Eye contact is good, patient interacts appropriately Weight / BMI Weight Weight: 53.9 kg Body Mass Index (BMI) 19.8 ABG / Lab / Microbiology Data 02/15/24 06:17 02/15/24 06:17 Laboratory: Laboratory Results - last 24 hr 02/14/24 04:15: Alkaline Phosphatase 50 02/15/24 06:17: WBC 5.5, RBC 2.68 L, Hgb 8.3 L, Hct 26.0 L, MCV 97.0 H, MCH 31.0, MCHC 31.9 L, RDW Std Deviation 45.7 H, RDW Coeff of Sydni 12.9, Plt Count 161, MPV 9.9, Sodium 140, Potassium 4.6, Chloride 111 H, Carbon Dioxide 25.0, A nion Gap 4 L, BUN 37 H, Creatinine 1.12, Estim Creat Clear Calc 44.78, Est GFR (MDRD) Af Amer 83, Est GFR (MDRD) Non-Af 68, BUN/Creatinine Ratio 33.0 H, G lucose 133 H, Calcium 8.6, Total Bilirubin 0.30, AST 30, ALT 25, Alkaline Phosphatase 44 L, Total Protein 5.8 L, Albumin 2.7 L, Globulin 3.1, Albumin/Globulin Ratio 0.9 Microbiology: Microbiology 02/13/24 12:50 Mucosa - Nose SARS-CoV-2, Influenza & RSV (PCR) - Final SARS-CoV-2 (COVID 19 PCR) D/C Instructions Discharge Diet: Low fat / Low cholesterol Discharge Activity: Return to Normal Activity Meaningful Use Info Meaningful Use Meaningful Use Diagnoses (Choose all that apply): None applicable Ischemic Stroke Statin Dosing Therapy Reference: STATIN DOSE THERAPY REFERENCE: * Patients > 75 years receive moderate or high dose statin therapy. * Patients 75 years or YOUNGER should receive HIGH intensity statin dose unless contraindicated. You will be required to document reason for non-treatment if statin daily dose does not meet guidelines. HIGH DOSE STATIN THERAPY DAILY Atorvastatin > than or = to 40 mg Rosuvastatin > than or = to 20 mg Amlodipine + Atorvastatin > than or = to 2.5/40 mg Ezetimibe + Simvastatin 10/80 mg Simvastatin 80mg Discharge Plan Admission Admit Date/Time: 02/13/24 17:30 Primary Reason for Your Visit: Shortness of breath Attending Provider: Belkis Raza Primary Care Provider: Clay Warren Consulting Providers: Thomas Benton; Giancarlo Ralph Instructions Additional Instructions / Restrictions: 1. We did check your oxygen requirements prior to discharge and you were stable on your 2 L. PACs do not go up on oxygen unless your oxygen saturations are consistently below 88% on current oxygen levels. Wear 2 L at rest and with exertion for now 2. Please call pulmonary office and follow-up as an outpatient to be seen within the next 2 to 3 weeks as able 3. Please use a walker at all times with ambulating to avoid falls Discharge Orders/Prescriptions Prescriptions: New prednisone 10 mg tablet 10 mg PO DAILY Qty: 40 0RF Rx Instructions: 4 tablets x 4 days, 3 tablets x 4 days, 2 tablets x 4 days, 1 tablet x 4 days Continued aspirin [Adult Aspirin Regimen] 81 mg tablet,delayed release (DR/EC) 81 mg PO QODAY sodium chloride 1 gram tablet 1,000 mg PO BID Patient Comments: TAKE 1 TABLET BY MOUTH TWICE A DAY magnesium oxide 400 mg magnesium tablet 400 mg PO BID (DME) Disability Placard See Rx Instructions .Route .MEDSUPPLY Qty: 1 0RF Rx Instructions: Expires 08/02/2026 Zyrtec 10 mg capsule 10 mg PO DAILY PRN (Reason: allergy symptoms) triamcinolone acetonide [Nasacort] 55 mcg aerosol,spray 1 spray intranasal DAILY Rx Instructions: administer into each nostril levothyroxine 100 mcg tablet 100 mcg PO QDAY hydrocortisone 10 mg tablet 5 mg PO BIDCM Rx Instructions: 5mg am, 2.5 mg mid afternoon multivitamin 1 EACH tablet 1 ea PO DAILY Patient Comments: vitamin supplement hydroxychloroquine 200 mg tablet 200 mg PO DAILY Patient Comments: arthritis omeprazole 40 MG capsule,delayed release(DR/EC) 40 mg PO DAILY cholecalciferol (vitamin D3) 1,000 UNIT tablet 1,000 unit PO BID albuterol sulfate [ProAir HFA] 90 mcg/actuation HFA aerosol inhaler 2 inh inhalation Q4H PRN (Reason: shortness of breath or wheezing) triamcinolone acetonide 0.1 % cream 1 applic TOPICAL BID Patient Comments: apply to affected area twice a day for 2 weeks then TAKE A WEEK OFF BEFORE RESUMING NEEDED ascorbic acid (vitamin C) 1,000 mg capsule 1 g PO DAILY clobetasol 0.05 % cream 1 applic TOPICAL BID Patient Comments: apply topically to affected area OF THE body twice a day for 2 we... (REFER TO PRESCRIPTION NOTES). atorvastatin 40 mg tablet 40 mg PO DAILY potassium chloride 20 mEq tablet,ER particles/crystals 40 meq PO DAILY 30 Days Qty: 0 0RF Tecentriq 1,200 mg/20 mL (60 mg/mL) solution 60 mg IV UD Patient Comments: Per Dr. Murcia Rx Instructions: Per Dr. Murcia losartan 25 mg tablet See Rx Instructions .ROUTE .COMPLEX Qty: 90 3RF Dose Instruction: TAKE 1 TABLET BY MOUTH EVERY DAY Rx Instructions: TAKE 1 TABLET BY MOUTH EVERY DAY umeclidinium 62.5 mcg/actuation blister with device 1 inh inhalation DAILY Qty: 3 3RF fluticasone furoate-vilanterol [Breo Ellipta] 200-25 mcg/dose blister with device 1 inh inhalation QDAY Qty: 3 3RF Rx Instructions: after inhalation, rinse mouth with water and spit out; do not swallow furosemide 20 mg tablet 20 mg PO DAILY Qty: 90 3RF (DME) Eduardo bunch See Rx Instructions .Route .MEDSUPPLY Qty: 1 0RF Rx Instructions: As directed Referrals / Follow Up: Clay Warren MD [Primary Care Provider] - Within 1 Week Cheryl Schaeffer NP, [facility] [Med Staff - Adv Practice Prof] - See Referral Note (Please call to set up an appointment to be seen in the next 2 to 3 weeks) Disposition Disposition (needs filled in before D/C Order can be placed): Home Health Service Charges/Coding Visit Charges Inpatient E&M: 19698 Disch Hosp >30min
--- NOTE | 2024-02-15 13:47 | CASEMGMT ---
Spoke with patient and his to complete FALCON form. FALCON form explained to both who voiced understanding and acknowledge form. Original form placed in pt?s chart and copy provided to patient. Yareli Aleman, Discharge Planning Ass
--- NOTE | 2024-02-15 15:04 | PHA.DC_ITS ---
Pharmacy [facility] Med Reconciliation Pharmacy Service has performed discharge medication reconciliation for this patient. The patient's discharge medication list was reviewed for discrepancies and discrepancies were resolved. Medications at Discharge Home Medications multivitamin 1 ea PO DAILY supplement 08/27/16 atezolizumab 1,200 mg/20 mL (60 mg/mL) intravenous solution (Tecentriq) 60 mg IV UD CANCER 08/27/18 cholecalciferol (vitamin D3) 25 mcg (1,000 unit) tablet 1,000 unit PO BID SUPPLEMENT 12/01/18 omeprazole 40 mg capsule,delayed release 40 mg PO DAILY GERD 12/01/18 aspirin 81 mg tablet,delayed release (Adult Aspirin Regimen) 81 mg PO QODAY [facility] 03/28/19 sodium chloride 1 gram tablet 1,000 mg PO BID sodium 10/15/20 hydroxychloroquine 200 mg tablet 200 mg PO DAILY ARTHRITIS 04/15/21 magnesium oxide 400 mg PO BID supplement 04/15/21 Disability Placard #1 ea 08/02/21 cetirizine 10 mg capsule (Zyrtec) 10 mg PO DAILY PRN allergy symptoms 11/05/21 triamcinolone acetonide 55 mcg nasal spray aerosol (Nasacort) 1 spray intranasal DAILY allergies 04/22/22 losartan 25 mg tablet See Rx Instructions .Route .COMPLEX blood pressure #90 tabs 03/23/23 albuterol sulfate 90 mcg/actuation aerosol inhaler (ProAir HFA) 2 inh inhalation Q4H PRN shortness of breath or wheezing 10/21/23 ascorbic acid (vitamin C) 1,000 mg capsule 1 g PO DAILY supplement 10/21/23 atorvastatin 40 mg tablet 40 mg PO DAILY cholesterol 10/21/23 clobetasol 0.05 % topical cream 1 applic topical BID skin 10/21/23 triamcinolone acetonide 0.1 % topical cream 1 applic topical BID skin 10/21/23 potassium chloride 20 mEq tablet,extended release(part/cryst) 40 meq (2 x 20 mEq) PO DAILY supplement 30 days #0 tabs 10/22/23 fluticasone furoate 200 mcg-vilanterol 25 mcg/dose inhalation powder (Breo Ellipta) 1 inh inhalation QDAY breathing #3 ea 10/29/23 umeclidinium 62.5 mcg/actuation blister powder for inhalation 1 inh inhalation DAILY breathing #3 ea 10/29/23 hydrocortisone 10 mg tablet 5 mg PO BIDCM inflammation 01/26/24 levothyroxine 100 mcg tablet 100 mcg PO QDAY thyroid 01/26/24 furosemide 20 mg tablet 20 mg PO DAILY water pill #90 tabs 01/29/24 Eduardo gordoned walker #1 ea 02/15/24 prednisone 10 mg tablet 10 mg PO DAILY #40 tabs 02/15/24
== END 2024-02-15 13:31 | disposition home health service (06) ==
LOC: ED 14:41 → PCU 16:23
PROVIDERS: Admitting Provider Hospitalist; Emergency Provider Emergency Medicine; PCP Family Medicine; Visit Provider Internal Medicine
DX: U07.1 COVID-19 (principal); L40.50 Arthropathic psoriasis, unspecified; J96.11 Chronic respiratory failure with hypoxia; I50.22 Chronic systolic (congestive) heart failure; I27.21 Secondary pulmonary arterial hypertension; I11.0 Hypertensive heart disease with heart failure; J44.89 Other specified chronic obstructive pulmonary disease; J44.0 Chronic obstructive pulmonary disease with (acute) lower respiratory infection; I42.8 Other cardiomyopathies; D64.9 Anemia, unspecified; Z79.82 Long term (current) use of aspirin; Z79.51 Long term (current) use of inhaled steroids; Z87.891 Personal history of nicotine dependence; R53.81 Other malaise; K21.9 Gastro-esophageal reflux disease without esophagitis; E78.5 Hyperlipidemia, unspecified; E03.9 Hypothyroidism, unspecified; I73.9 Peripheral vascular disease, unspecified; I25.10 Atherosclerotic heart disease of native coronary artery without angina pectoris; S41.111A Laceration without foreign body of right upper arm, initial encounter; S61.411A Laceration without foreign body of right hand, initial encounter; W19.XXXA Unspecified fall, initial encounter; E27.40 Unspecified adrenocortical insufficiency; Z99.81 Dependence on supplemental oxygen; Z85.118 Personal history of other malignant neoplasm of bronchus and lung; Z79.899 Other long term (current) drug therapy
CPT/HCPCS: 36415; 71045; 80048; 80053; 80076; 81001; 84075; 84484; 85025; 85027; 85610; 85730; 87040; 87631; 93005; 94002; 94003; 94640; 94762; 96361; 96365; 96366; 96372; 96375; 97162; 97166; 97530; 97535; 99221; 99284; J7030; J7050; A4216; G0378; J0248

== ENCOUNTER 2024-02-16 09:27 | Outpatient (RCR) | payer SELFPAY ==
--- NOTE | 2024-02-16 13:33 | CM.ED ---
Emergency Department Social Work Sw spoke to patient's , Shama, who states that due to herself and patient having COVID she is unable to provide care for him. Patient has been provided with a list of SNF and has identified that first choice is: [facility], second choice: [facility], third choice: [facility] and fourth choice/s: [facility] or [facility]. Patient's states that she has talked to a investment broker and is able to pay out of pocket for patient to go to a SNF. Sw spoke to ED provider who is still receptive to patient going observation if necessary to arrange discharge plan for his [facility] care. Sw will remain involved to assist with any discharge planning needs. Adair Loredo, QUALITY CONTROL AUDITOR, ORTHOPEDIC SURGEON
== END 2024-03-16 23:59 ==
LOC: PR 09:27
PROVIDERS: PCP Family Medicine; Referring Provider Internal Medicine Critical Care Medicine; Visit Provider Internal Medicine Critical Care Medicine
DX: Z00.00 Encounter for general adult medical examination without abnormal findings (principal)

== ENCOUNTER 2024-02-16 11:39 | Observation (INO) | payer MEDICARE, OTHER, SELFPAY ==
[2024-02-16] VITALS (8 sets, daily range): BP systolic 128–170; BP diastolic 41–105; PULSE 72–98; RESP 18–26; TEMP 35.9–36.7; O2SAT 94–100; BMI 20.7; BMI 19.5
--- NOTE | 2024-02-16 12:49 | RAD_ITS ---
STUDY: X-RAY CHEST REASON FOR EXAM: Male, 73 years old. Evaluate for pneumonia. TECHNIQUE: Single frontal view of the chest. COMPARISON: February 13, 2024 FINDINGS: Stable hyperinflation of the left lung with flattening of hemidiaphragms and elevation of the right hemidiaphragm. There is no demonstrated pleural abnormality. Cardiomegaly. Dual lead cardiac pacer unchanged. Normal mediastinum and carina. Stable prominent central pulmonary arteries. Aortic tortuosity with calcification unchanged. No abnormality of the visualized soft tissue structures of the upper abdomen. RAD/Chest 1 View (Portable) IMPRESSION: Stable chest with no acute superimposed findings. Electronically Signed: Sukhdeep Garner MD at 13:03 EDT ,
[2024-02-16 12:54] LABS: Bacteria 0 SEEN /hpf (None Seen); Mucous, Urine 0 SEEN /hpf (<or=2+); Red Blood Cells-Urine 0 SEEN /hpf (0-5); Squamous Epithelial Cells - UA 0 SEEN /hpf (0-5); White Blood Cells 0 SEEN /hpf (0-5)
[2024-02-16 12:57] LABS: Color, Urine Straw (Yellow); Glucose, Dipstick Normal (Normal); Ketone-Dipstick Negative (Negative); Leukocyte Esterase-Dipstick Negative /ul (Negative); Nitrite-Dipstick Negative (Negative); Occult Blood-Urine Negative /ul (Negative); Protein-Dipstick Negative (Negative); Specific Gravity, Urine 1.015 (1.002-1.030); Urine Bilirubin Dipstick Negative (Negative); Urine Clarity Clear (Clear); Urine Urobilinogen Normal (Normal)
[2024-02-16 13:13] LABS: Absolute Lymphocyte Count 0.45 X10^3/uL (0.83-4.51); Absolute Neutrophil Count 6.9 X10^3/uL (2.0-7.7); Hematocrit 32.3 % (40-54); Hemoglobin 10.5 g/dL (13.0-16.5); Lymphocyte # 0.45 X10^3/ul (0.83-4.51); Lymphocyte % 5.8 % (19-41); Mean Corp Hgb Conc 32.5 g/dL (32-36); Mean Corpuscular Volume 95.3 fL (80-94); Mean Platelet Vol. 9.7 fl (6.2-12.0); Monocyte# 0.39 X10^3/uL; NRBC Flagged by Analyzer 0 % (0-5); Neutrophil # 6.87 X10^3/uL (2.7-7.7); Neutrophil % 88.2 % (47-70); POSITIVE DIFFERENTIAL YES; Platelet Count 197 K/mm3 (150-450); RBC Distribution Width CV 12.9 % (11.6-14.6); RBC Distribution Width SD 45.4 fl (35.1-43.9); Red Blood Count 3.39 M/mm3 (4.6-6.2); White Blood Count 7.8 K/mm3 (4.4-11.0)
[2024-02-16 13:35] LABS: ALB/GLOB Ratio 0.9 RATIO (0.9-2.4); AST(SGOT) 40 U/L (15-37); Alanine Aminotransfer ALT/SGPT 32 U/L (16-61); Albumin, Serum 3.3 g/dL (3.2-5.0); Alkaline Phosphatase 46 U/L (45-117); Anion Gap 6 (5-15); BUN 46 mg/dL (7-18); BUN/Creat Ratio 38.3 RATIO (10-20); Calcium,Total 9.4 mg/dL (8.5-10.1); Chloride 107 mmol/L (98-107); EST Glomerular Filtration Rate 63 mL/min (>60); Est Glom Filt Rate - Afr Amer 76 mL/min (>60); Estimated Creatinine Clearance 43.74 ml/min; Globulin 3.7 g/dL (2.2-4.2); Glucose 133 mg/dL (74-106); Sodium Level 138 mmol/L (136-145); Thyroid Stim Hormone (TSH) 0.98 uIU/mL (0.358-3.74)
--- NOTE | 2024-02-16 13:37 | CASEMGMT ---
Addendum entered by Yareli Aleman 02/17/24 09:47: [facility] and [facility] have declined referral. SW updated. Yareli Aleman DC Planning Asst. Addendum entered by Yareli Aleman 02/16/24 15:33: [facility], [facility], and [facility] have all declined referral. SW updated. Yareli Aleman DC Planning Asst. Original Note: Discharge Planning Referral sent via [facility] to [facility], [facility], [facility], [facility], and [facility]. Yareli Aleman DC Planning Asst.
--- NOTE | 2024-02-16 14:25 | EDS_ITS ---
HPI History of Present Illness Chief Complaint: Weakness Informant: patient and EMS Narrative Narrative: 73-year-old male history of COPD with chronic respiratory failure/hypoxia presenting to the emergency room with weakness. Patient was seen earlier this weekend after a fall and discharged home and brought back to emergency room next day with weakness and was found to have COVID-19. He was admitted to the hospital. Please see the discharge note for full details. Patient is brought back to the emergency room today with continued weakness and inability to get up and care for himself. He is not requiring more oxygen than normal. No reported fevers. [facility] Medical History History of chronic CHF Chronic respiratory failure with hypoxia GERD (gastroesophageal reflux disease) Hypothyroidism Debility Lung cancer Anemia Arthritis Lesion of pelvic bone Pneumothorax after biopsy Secondary pulmonary arterial hypertension Nonischemic cardiomyopathy Severe left ventricular systolic dysfunction Atherosclerotic heart disease of [place] coronary artery without angina pectoris PVD (peripheral vascular disease) Stage 3 severe COPD by GOLD classification Hyperlipidemia CHF (congestive heart failure), NYHA class I Psoriatic arthritis Home Medications ?Medication ?Instructions ?Recorded ?Last Taken ?Type multivitamin 1 ea PO DAILY supplement 08/27/16 02/16/24 History atezolizumab 1,200 mg/20 mL (60 60 mg IV UD CANCER 08/27/18 2 Weeks Ago History mg/mL) intravenous solution ~12/12/19 ([employer]) cholecalciferol (vitamin D3) 25 1,000 unit PO DAILY SUPPLEMENT 12/01/18 02/16/24 History mcg (1,000 unit) tablet omeprazole 40 mg capsule,delayed 40 mg PO DAILY GERD 12/01/18 02/16/24 History release aspirin 81 mg tablet,delayed 81 mg PO [facility] [employer] [facility] 03/28/19 10/20/23 History release (Adult Aspirin Regimen) hydroxychloroquine 200 mg tablet 200 mg PO DAILY ARTHRITIS 04/15/21 02/16/24 History Disability Placard #1 ea 08/02/21 Unknown Rx cetirizine 10 mg capsule (Zyrtec) 10 mg PO DAILY ALLERGIES 11/05/21 02/16/24 History triamcinolone acetonide 55 mcg 1 spray intranasal DAILY PRN 04/22/22 Unknown History nasal spray aerosol (Nasacort) ALLERGIES losartan 25 mg tablet See Rx Instructions .Route 03/23/23 02/16/24 Rx .COMPLEX blood pressure #90 tabs ascorbic acid (vitamin C) 1,000 mg 1 g PO DAILY supplement 10/21/23 Unknown History capsule atorvastatin 40 mg tablet 40 mg PO DAILY cholesterol 10/21/23 10/20/23 History clobetasol 0.05 % topical cream 1 applic topical BID skin 10/21/23 10/15/23 History triamcinolone acetonide 0.1 % 1 applic topical BID skin 10/21/23 10/14/23 History topical cream fluticasone furoate 200 1 inh inhalation QDAY breathing #3 10/29/23 02/15/24 Rx mcg-vilanterol 25 mcg/dose ea inhalation powder (Breo Ellipta) umeclidinium 62.5 mcg/actuation 1 inh inhalation DAILY breathing 10/29/23 02/15/24 Rx blister powder for inhalation #3 ea levothyroxine 100 mcg tablet 100 mcg PO DAILY THYROID 01/26/24 02/16/24 History [place] wheeled walker #1 ea 02/15/24 Unknown Rx prednisone 10 mg tablet 10 mg PO DAILY #40 tabs 02/15/24 02/16/24 Rx albuterol sulfate 90 mcg/actuation 2 puff inhalation Q4H PRN 02/16/24 Unknown History aerosol inhaler SHORTNESS OF BREATH/WHEEZING furosemide 20 mg tablet 10 mg PO DAILY water pill 02/16/24 02/16/24 History hydrocortisone 5 mg tablet 5 mg PO DAILY 02/16/24 02/16/24 History magnesium oxide 400 mg (241.3 mg 400 mg PO BID 02/16/24 02/16/24 History magnesium) tablet potassium chloride 20 mEq 20 meq PO DAILY SUPPLEMENT 02/16/24 02/16/24 History tablet,extended release(part/cryst) sodium chloride 1,000 mg soluble 1,000 mg PO DAILY SUPPLEMENT 02/16/24 02/16/24 History tablet Allergy/AdvReac Type Severity Reaction Status Date / Time No Known Allergies Allergy Verified 02/13/24 12:10 Family History Mother Heart disease Brother CVA (cerebral vascular accident) Father Cancer brain Grandmother Diabetes Surgical History History of appendectomy (~12/26/19) Implantable cardioverter-defibrillator (ICD) in situ (12/27/16) Social History household members: spouse housing: house Smoking Status: Former smoker how long ago did patient quit smokin, 1.5p/day second hand exposure: Yes alcohol intake: never substance use type: does not use caffeine: Yes Type: coffee Number of servings: 2 what type of physical activity do you participate in: walking frequency: 3-4 times per week ROS ROS ED ROS Narrative Generalized weakness Constitutional Constitutional ED: Denies chills, fever(s) or weight loss Eyes Eyes: Denies change in vision or diplopia ENT ENT ED: Denies ear pain, rhinorrhea or sore throat Cardiovascular Cardiovascular: Denies chest pain, orthopnea, palpitations or racing heartbeat Respiratory/Chest Respiratory/Chest: Denies cough, dyspnea or orthopnea Gastrointestinal Gastrointestinal: Denies abdominal pain, diarrhea, nausea or vomiting Genitourinary Genitourinary ED: Denies dysuria, hematuria or urinary frequency Musculoskeletal Musculoskeletal: Denies arthralgias or myalgias Integumentary Denies abscess or rash Neurologic Neurologic: Denies headache(s) or weakness Psychiatric Psychiatric: Denies anxiety, depression, suicidal ideation or suicidal thoughts Endocrine Endocrinology: Denies polydipsia, polyphagia or polyuria Allergic/Immunologic Allergic/Immunologic ED: Denies mouth swelling, tongue swelling or urticaria EXAM Physical Exam Narrative Exam Narrative: Patient is generally frail unable to get up out of bed Const Vital Signs: 02/16/24 11:39 02/16/24 13:24 02/16/24 14:11 Temperature 96.6 F L 97.8 F Temperature Source Temporal Pulse Rate 97 84 72 Respiratory Rate 26 H 18 20 H Blood Pressure 128/105 H 161/55 H 170/72 H Blood Pressure Mean 112 90 104 Pulse Ox 97 99 98 Oxygen Delivery Method Nasal Cannula Room Air Oxygen Flow Rate (L/min) 2 Positive well nourished and well developed General Appearance ED: well developed HEENT Reports normocephalic, head/scalp atraumatic and moist mucous membranes Eyes PERRL and EOMs intact bilaterally Neck no lymphadenopathy, supple and no JVD Resp normal respiratory effort and clear to auscultation bilaterally Cardio regular rate, regular rhythm and no murmurs GI normal to inspection, nondistended, normoactive bowel sounds and non-tender Palpation: soft Back/Spine no CVA tenderness and normal ROM Extremity normal to inspection General Extremety ED: Negative for edema General Extremity: Negative for edema Neuro oriented x3 and CN's II-XII intact bilaterally Sensorium / Orientation: alert Motor Exam: strength 5/5 throughout Psych mental status grossly normal Mood & Affect: Negative for depressed or tearful Skin no rashes or lesions noted Skin Narrative: Patient with multiple areas of contusion/ecchymosis and skin tears MDM MDM MDM Narrative Medical decision making narrative: Differential diagnosis includes but not limited to dehydration and electrolyte imbalance anemia pneumonia pleural effusion Basic blood work was obtained hemoglobin 10.5 white count 7.8 platelet count of 197. BUN of 46 with creatinine 1.20. This ratio may be of benefit for him with his recent COVID diagnosis. Glucose is noted to be 133 normal LFTs except for an AST of 40. Urinalysis no overt infection. I asked social work to visit with them. He does not have a 3-day patient's qualified for Medicare to pay for rehab and states they are willing to pay [id number]. Plan will be at admission with the intent to send him to a rehab facility History & Record Review Discussion w/independent historian: EMS personnel and Patient Additional record(s) reviewed:: Prior inpatient record, Prior ED visit and Prior labs Lab Data Attestation: I reviewed the patient's lab results. Labs: Laboratory Results - last 24 hr 02/16/24 02/16/24 12:52 13:04 WBC 7.8 RBC 3.39 L Hgb 10.5 L Hct 32.3 L MCV 95.3 H MCH 31.0 MCHC 32.5 RDW Std Deviation 45.4 H RDW Coeff of Sydni 12.9 Plt Count 197 MPV 9.7 Immature Gran % (Auto) 1.000 H Neut % (Auto) 88.2 H Lymph % (Auto) 5.8 L Towns % (Auto) 5.0 Eos % (Auto) 0.0 Baso % (Auto) 0.0 Absolute Neuts (auto) 6.9 Absolute Lymphs (auto) 0.45 L Nucleated RBC % 0 Sodium 138 Potassium 5.0 Chloride 107 Carbon Dioxide 25.0 Anion Gap 6 BUN 46 H Creatinine 1.20 Estim Creat Clear Calc 43.74 Est GFR (MDRD) Af Amer 76 Est GFR (MDRD) Non-Af 63 BUN/Creatinine Ratio 38.3 H Glucose 133 H Calcium 9.4 Total Bilirubin 0.30 AST 40 H ALT 32 Alkaline Phosphatase 46 Total Protein 7.0 Albumin 3.3 Globulin 3.7 Albumin/Globulin Ratio 0.9 TSH 0.98 Urine Color Straw Urine Clarity Clear Urine pH 5.0 Ur Specific [place] 1.015 Urine Protein Negative Urine Glucose (UA) Normal Urine Ketones Negative Urine Occult Blood Negative Urine Nitrite Negative Urine Bilirubin Negative Urine Urobilinogen Normal Ur Leukocyte Esterase Negative Urine RBC 0 SEEN Urine WBC 0 SEEN Ur Squamous Epith Cells 0 SEEN Urine Bacteria 0 SEEN Urine Mucus 0 SEEN Radiography Diagnostic Testing: Clinical Impression(s) from Imaging Studies Chest X-Ray 02/16/24 12:49 IMPRESSION: Stable chest with no acute superimposed findings. Electronically Signed: Sukhdeep Garner MD at 13:03 EDT Reading Location ID and State: [address] [place] [address] , Service support , Discharge Plan Triage Chief Complaint: Weakness ED Provider: Case Madison Dx/Rx/DC Orders Prescriptions: No Action aspirin [Adult Aspirin Regimen] 81 mg tablet,delayed release (DR/EC) 81 mg PO QODAY (DME) Disability Placard See Rx Instructions .Route .MEDSUPPLY Qty: 1 0RF Rx Instructions: Expires 08/02/2026 Zyrtec 10 mg capsule 10 mg PO DAILY triamcinolone acetonide [Nasacort] 55 mcg aerosol,spray 1 spray intranasal DAILY PRN (Reason: ALLERGIES ) Rx Instructions: administer into each nostril levothyroxine 100 mcg tablet 100 mcg PO DAILY multivitamin 1 EACH tablet 1 ea PO DAILY hydroxychloroquine 200 mg tablet 200 mg PO DAILY omeprazole 40 MG capsule,delayed release(DR/EC) 40 mg PO DAILY cholecalciferol (vitamin D3) 1,000 UNIT tablet 1,000 unit PO DAILY albuterol sulfate [ProAir HFA] 90 mcg/actuation HFA aerosol inhaler 2 inh inhalation Q4H PRN (Reason: shortness of breath or wheezing) triamcinolone acetonide 0.1 % cream 1 applic TOPICAL BID Patient Comments: apply to affected area twice a day for 2 weeks then TAKE A WEEK OFF BEFORE RESUMING NEEDED ascorbic acid (vitamin C) 1,000 mg capsule 1 g PO DAILY clobetasol 0.05 % cream 1 applic TOPICAL BID atorvastatin 40 mg tablet 40 mg PO DAILY prednisone 10 mg tablet 10 mg PO DAILY Qty: 40 0RF Rx Instructions: 4 tablets x 4 days, 3 tablets x 4 days, 2 tablets x 4 days, 1 tablet x 4 days hydrocortisone 5 mg tablet 5 mg PO DAILY Rx Instructions: 1 QAM AND 0.5 QPM magnesium oxide 400 mg (241.3 mg magnesium) tablet 400 mg PO BID sodium chloride 1,000 mg tablet,soluble 1,000 mg PO DAILY potassium chloride 20 mEq tablet,ER particles/crystals 20 meq PO DAILY furosemide 20 mg tablet 10 mg PO DAILY Tecentriq 1,200 mg/20 mL (60 mg/mL) solution 60 mg IV UD Patient Comments: Per Dr. Murcia Rx Instructions: Per Dr. Murcia losartan 25 mg tablet See Rx Instructions .ROUTE .COMPLEX Qty: 90 3RF Dose Instruction: TAKE 1 TABLET BY MOUTH EVERY DAY Rx Instructions: TAKE 1 TABLET BY MOUTH EVERY DAY umeclidinium 62.5 mcg/actuation blister with device 1 inh inhalation DAILY Qty: 3 3RF fluticasone furoate-vilanterol [Breo Ellipta] 200-25 mcg/dose blister with device 1 inh inhalation QDAY Qty: 3 3RF Rx Instructions: after inhalation, rinse mouth with water and spit out; do not swallow (DME) Eduardo bunch See Rx Instructions .Route .MEDSUPPLY Qty: 1 0RF Rx Instructions: As directed Primary Care Provider: Clay Warren Referrals: Clay Warren MD [Primary Care Provider] - Print Language: Albanian
--- NOTE | 2024-02-16 14:32 | PCM.HP.STD ---
HPI - General General Date of Admission: 02/16/24 Date of Service: 02/16/24 Chief Complaint: WEAKNESS HPI Narrative JIGNESH LOPEZ, is a 73 M who presented to the emergency department at [facility] on 02/16/2024 due to weakness. He was just discharged yesterday after a brief admission for COVID-19 infection and generalized weakness. He was admitted as observation and at the time of discharge family was inquiring about placement due to his weakness but unfortunately he was admitted to observation with no further admission needs so family was advised about 3 midnight full admission hospital stay for coverage for skilled facility at discharge and family elected to take him home as they would have to pay [id number]. Unfortunately, his who is his primary caregiver, came down with COVID and is feeling ill with decreased capacity to help take care of him at home so he came back to the emergency department with weakness. His respiratory status is at his baseline and he states he is feeling okay. He has not had any falls since discharge. He was seen by physical and Occupational Therapy prior to discharge and they recommended ongoing services and he was set up with home health care. He has no physical complaints other than some generalized weakness which is unchanged from yesterday. He is able to ambulate independently with a wheeled walker. Vital signs on presentation were unremarkable with a temperature of 97.8, heart rate 72, blood pressure 132/41, respiratory rate between 18 and 20 and sats were 99% on room air. His labs were overtly unchanged from yesterday. UA was unremarkable. Chest x-ray shows chronic changes but no acute findings. Case was discussed with social work prior to admission and we will admit him is obvious. Family is not willing to pay [id number] for placement in rehab prior to returning home. Social work is currently working on placement. [facility] Medical History History of chronic CHF Chronic respiratory failure with hypoxia GERD (gastroesophageal reflux disease) Hypothyroidism Debility Lung cancer Anemia Arthritis Lesion of pelvic bone Pneumothorax after biopsy Secondary pulmonary arterial hypertension Nonischemic cardiomyopathy Severe left ventricular systolic dysfunction Atherosclerotic heart disease of [place] coronary artery without angina pectoris PVD (peripheral vascular disease) Stage 3 severe COPD by GOLD classification Hyperlipidemia CHF (congestive heart failure), NYHA class I Psoriatic arthritis Home Medications ?Medication ?Instructions ?Recorded ?Last Taken ?Type multivitamin 1 ea PO DAILY SUPPLEMENT 08/27/16 02/16/24 History cholecalciferol (vitamin D3) 25 1,000 unit PO DAILY SUPPLEMENT 12/01/18 02/16/24 History mcg (1,000 unit) tablet omeprazole 40 mg capsule,delayed 40 mg PO DAILY GERD 12/01/18 02/16/24 History release aspirin 81 mg tablet,delayed 81 mg PO QODAY [facility]ART [facility] 03/28/19 02/15/24 History release (Adult Aspirin Regimen) hydroxychloroquine 200 mg tablet 200 mg PO DAILY ARTHRITIS 04/15/21 02/16/24 History Disability Placard #1 ea 08/02/21 Unknown Rx cetirizine 10 mg capsule (Zyrtec) 10 mg PO DAILY ALLERGIES 11/05/21 02/16/24 History triamcinolone acetonide 55 mcg 1 spray intranasal DAILY PRN 04/22/22 Unknown History nasal spray aerosol (Nasacort) ALLERGIES ascorbic acid (vitamin C) 1,000 mg 1 g PO DAILY SUPPLEMENT 10/21/23 02/16/24 History capsule atorvastatin 40 mg tablet 40 mg PO QHS CHOLESTEROL 10/21/23 02/15/24 History clobetasol 0.05 % topical cream 1 applic topical DAILY FEET 10/21/23 02/15/24 History triamcinolone acetonide 0.1 % 1 applic topical DAILY SKIN 10/21/23 02/15/24 History topical cream umeclidinium 62.5 mcg/actuation 1 inh inhalation DAILY COPD #3 ea 10/29/23 02/15/24 Rx blister powder for inhalation levothyroxine 100 mcg tablet 100 mcg PO DAILY THYROID 01/26/24 02/16/24 History Fropriya wheeled walker #1 ea 02/15/24 Unknown Rx albuterol sulfate 90 mcg/actuation 2 puff inhalation Q4H PRN 02/16/24 Unknown History aerosol inhaler SHORTNESS OF BREATH/WHEEZING fluticasone furoate 200 1 inh inhalation DAILY COPD 02/16/24 02/15/24 History mcg-vilanterol 25 mcg/dose inhalation powder (Breo Ellipta) furosemide 20 mg tablet 10 mg PO DAILY EDEMA 02/16/24 02/16/24 History hydrocortisone 5 mg tablet 2.5 mg PO QPM INFLAMMATION 02/16/24 02/15/24 History hydrocortisone 5 mg tablet 5 mg PO DAILY INFLAMMATION 02/16/24 02/16/24 History losartan 25 mg tablet 25 mg PO DAILY BLOOD PRESSURE 02/16/24 02/16/24 History magnesium oxide 400 mg (241.3 mg 400 mg PO BID SUPPLEMENT 02/16/24 02/16/24 History magnesium) tablet potassium chloride 20 mEq 20 meq PO DAILY SUPPLEMENT 02/16/24 02/16/24 History tablet,extended release(part/cryst) prednisone 10 mg tablet See Taper PO DAILY STEROID 02/16/24 02/16/24 History sodium chloride 1,000 mg soluble 1,000 mg PO DAILY SUPPLEMENT 02/16/24 02/16/24 History tablet Allergy/AdvReac Type Severity Reaction Status Date / Time No Known Allergies Allergy Verified 02/13/24 12:10 Family History Mother Heart disease Brother CVA (cerebral vascular accident) Father Cancer brain Grandmother Diabetes Surgical History History of appendectomy (~12/26/19) Implantable cardioverter-defibrillator (ICD) in situ (12/27/16) Social History household members: spouse housing: house Smoking Status: Former smoker how long ago did patient quit smokin, 1.5p/day second hand exposure: Yes alcohol intake: never substance use type: does not use caffeine: Yes Type: coffee Number of servings: 2 what type of physical activity do you participate in: walking frequency: 3-4 times per week ROS Constitutional Constitutional: Reports weakness; Denies anorexia, change in weight, chills, fatigue, fever(s), malaise, night sweats or other Eyes Eyes: Denies blurry vision, change in eye color, change in vision, discharge from eye(s), double vision, erythema, eye pain, loss of vision or other ENT HEENT: Denies abnormal hearing, dysphagia, ear pain, epistaxis, headache(s), hearing loss, nasal congestion, nasal discharge, post nasal drip, sinus pressure, sore throat or other Cardiovascular Cardiovascular: Reports dyspnea on exertion; Denies chest pain, claudication, edema, lightheadedness, orthopnea, palpitations, paroxysmal nocturnal dyspnea, rapid heart rate, syncope or other Respiratory/Chest Respiratory/Chest: Reports cough and shortness of breath with exertion; Denies dyspnea, excessive phlegm production, hemoptysis, productive cough, shortness of breath at rest, wheezing or other Gastrointestinal Gastrointestinal: Denies abdominal pain, coffee ground emesis, constipation, diarrhea, dyspepsia, hematemesis, hematochezia, loose stools, melena, nausea, vomiting or other Genitourinary Genitourinary: Denies burning urination, difficulty urinating, dysuria, hematuria, nocturia, urinary frequency, urinary hesitancy, urinary incontinence, urinary urgency or other Musculoskeletal Musculoskeletal: Reports joint pain and joint stiffness; Denies arthralgias, back pain, joint swelling, myalgias, neck pain or other Neurologic Neurologic: Reports abnormal gait; Denies abnormal speech, confusion, disequilibrium, dizziness, focal weakness, headache(s), numbness, paresthesias, seizure-like activity, seizures, syncope, tingling, tremor(s) or other Psychiatric Psychiatric: Denies anxiety, depression, homicidal ideation, suicidal ideation or other Endocrine Endocrinology: Denies change in body appearance, cold intolerance, excessive sweating, heat intolerance, polydipsia, polyuria or other Hematologic/Lymphatic Hematologic/Lymphatic: Reports easy bruising; Denies anemia, easy bleeding, lymphadenopathy or other Allergic/Immunologic Allergic/Immunologic: Denies rhinitis, hives, eczemia, asthma or other Vital Signs Vital Signs Vital Signs: 02/16/24 11:39 02/16/24 13:24 02/16/24 14:11 Temperature 96.6 F L 97.8 F Temperature Source Temporal Pulse Rate 97 84 72 Respiratory Rate 26 H 18 20 H Blood Pressure 128/105 H 161/55 H 170/72 H Blood Pressure Mean 112 90 104 Pulse Ox 97 99 98 Oxygen Delivery Method Nasal Cannula Room Air Oxygen Flow Rate (L/min) 2 Weight Weight: 56.4 kg Body Mass Index (BMI) 20.7 Physical Exam Const alert, oriented x3 and no apparent distress; Negative for average body habitus, healthy appearing or well nourished Constitutional Narrative: Cachectic appearing, older, white male, standing at the bedside using the urinal, standing independently, nursing at bedside, appears comfortable, nontoxic General Appearance: cooperative HEENT normocephalic, head/scalp atraumatic, hearing grossly normal bilaterally and moist oral mucous membranes HEENT Narrative: Dentition is poor, Mallampati is 2, no thrush, temporal wasting Resp normal respiratory effort, no retractions, no use of accessory muscles and No clear to auscultation bilaterally Resp Narrative: Diffusely diminished with few scattered end expiratory wheezes, no signs of respiratory distress Auscultation: wheezes Cardio regular rate, regular rhythm, S1 normal heart sound, S2 normal heart sound, no murmurs, no rub, no gallops and no clicks GI normal to inspection, nondistended, normoactive bowel sounds, soft to palpation and non-tender GI Narrative: Scaphoid abdomen Neuro oriented x3, moves all extremities and no focal motor deficits Neuro Narrative: Generalized weakness noted-proximal greater than distal Speech: speech normal Psych affect normal Psych Narrative: Eye contact is good, patient appreciative of care, interacts appropriately Results Lab / Micro Data 02/16/24 13:04 02/16/24 13:04 Labs: Laboratory Results - last 24 hr 02/16/24 12:52: Urine Color Straw, Urine Clarity Clear, Urine pH 5.0, Ur Specific [place] 1.015, Urine Protein Negative, Urine Glucose (UA) Normal, Urine Ketones Negative, Urine Occult Blood Negative, Urine Nitrite Negative, Urine Bilirubin Negative, Urine Urobilinogen Normal, Ur Leukocyte Esterase Negative, Urine RBC 0 SEEN, Urine WBC 0 SEEN, Ur Squamous Epith Cells 0 SEEN, Urine Bacteria 0 SEEN, Urine Mucus 0 SEEN 02/16/24 13:04: WBC 7.8, RBC 3.39 L, Hgb 10.5 L, Hct 32.3 L, MCV 95.3 H, MCH 31.0, MCHC 32.5, RDW Std Deviation 45.4 H, RDW Coeff of Sydni 12.9, Plt Count 197, MPV 9.7, Immature Gran % (Auto) 1.000 H, Neut % (Auto) 88.2 H, Lymph % (Auto) 5.8 L, [place] % (Auto) 5.0, Eos % (Auto) 0.0, Baso % (Auto) 0.0, Absolute Neuts (auto) 6.9, Absolute Lymphs (auto) 0.45 L, Nucleated RBC % 0, Sodium 138, Potassium 5.0, Chloride 107, Carbon Dioxide 25.0, Anion Gap 6, BUN 46 H, Creatinine 1.20, Estim Creat Clear Calc 43.74, Est GFR (MDRD) Af Amer 76, Est GFR (MDRD) Non-Af 63, BUN/Creatinine Ratio 38.3 H, Glucose 133 H, Calcium 9.4, Total Bilirubin 0.30, AST 40 H, ALT 32, Alkaline Phosphatase 46, Total Protein 7.0, Albumin 3.3, Globulin 3.7, Albumin/Globulin Ratio 0.9, TSH 0.98 Imaging Radiology Impression Chest X-Ray 02/16/24 12:49 IMPRESSION: Stable chest with no acute superimposed findings. Electronically Signed: Sukhdeep Garner MD at 13:03 EDT , Assessment & Plan Assessment/Plan (1) Weakness: (2) Falls: (3) Debility: PLAN: Plan Generalized weakness/debility/falls secondary to chronic comorbidities on top of acute COVID-19 infection -Recent admission was evaluated by PT and OT and recommended placement at discharge however patient was noted as observation and had no Medicare benefit for skilled facility--> referral was offered but family was informed they have to pay [id number] and they declined and decided home with home health care--> now diagnosed with COVID and unable to help him so brought him back to the emergency department for placement [id number] pay -PT/OT consultation -Case management/social work consultation for assistance with discharge planning Acute COVID-19 infection with acute exacerbation of COPD -Symptoms onset 02/11/2024 -Acute COPD exacerbation had resolved as of yesterday -Oxygen requirements at discharge were no oxygen at rest and 2 L with exertion -Continue prednisone taper Chronic hypoxic respiratory failure secondary to COPD/pulmonary hypertension(who group 2 and 3) -Patient follows with [place] pulmonology -Had been on trilogy and chronic supplemental oxygen however as of recently was only on 2 L with exertion -Most recent PFTs show an FEV1 of 57% however it is likely lower now with his lung cancer -Right ventricular systolic pressure was 47 on his last echo in 2017 however expected to be worse at this time -Continue home inhalers -Continue home Lasix Squamous cell carcinoma of the left lung -Patient follows as an outpatient with oncology at [facility] and sees Dr. Murcia -Continue outpatient follow-up History of nonischemic cardiomyopathy/nonobstructive CAD/hyperlipidemia -Patient has had an EF as low as 15 to 20% in 2017 but most recent echocardiogram from August 2018 showed an EF of 65% with stage I diastolic dysfunction -Continue home diuretics -Has ICD -Continue statin -Continue aspirin -Continue losartan Psoriatic arthritis -Continue hydroxychloroquine Hypothyroidism -Continue home levothyroxine -Recent TSH done and within normal limits GERD -Continue home PPI DVT prophylaxis -Lovenox 40 mg daily CODE STATUS -Full code Charges/Coding Visit Charges Inpatient E&M: 11448 Init Hosp L2
--- NOTE | 2024-02-16 14:34 | NURSING ---
MED SURG OBS KINNEY WEAKNESS, COVID 19, COPD
--- NOTE | 2024-02-16 15:01 | CASEMGMT ---
Social Work SW met w/pt and daughter in room in regard to discharge plan. As per therapy, pt is moving better, however pt is not certain if he can go home. SW spoke w/pt about this. Pt is ambivalent about what to do. SW explained we can send the referral back to [facility] to see if they can take him again. Then at least we know if they are willing to take him back. SW explained if they do accept him back, that does not mean he has to go, we can see how things are tomorrow. Pt states understanding, agreeable to referral. Yareli, d/c manager business planning, will send the referral to [facility]. SW will continue to follow. MAK De La [place]re
--- NOTE | 2024-02-16 15:14 | CASEMGMT ---
Social Work Pt's had been in touch w/CM throughout the morning, having difficulty caring for pt at home. As per CM, aware pt will be private pay at SNF. MITZY Borrero spoke w/ who gave SNF choices of 1. [facility], [facility]. [facility], [facility], [facility], [facility] and [facility]. D/C capacity planning engineer made the referrals, will continue to follow. MAK [place]re
[2024-02-16] MEDS: Ipratropium/Albuterol Sulfate 3 ML AMPUL.NEB INHALATION (20:24)
[2024-02-16] MEDS: Clobetasol Propionate 0.05% Cream 1 APPLIC TOPICAL (23:00)
[2024-02-16] MEDS: Magnesium Chloride 64 MG Delay Rel.Tablet 128 MG PO (23:02)
[2024-02-16] MEDS: Atorvastatin Calcium 40 MG Tablet PO (23:02)
[2024-02-16] MEDS: Cholecalciferol (VIT D3) 25 MCG TABLET (1,000 UNITS) PO (23:02)
[2024-02-16] MEDS: Sodium Chloride 1 GM Tablet PO (23:02)
[2024-02-17] MEDS: Levothyroxine 100 MCG Tablet PO (05:37)
[2024-02-17 05:43] VITALS: BP 124/52; PULSE 82; RESP 18; TEMP 36.5; O2SAT 94
[2024-02-17] MEDS: Ipratropium/Albuterol Sulfate 3 ML AMPUL.NEB INHALATION ×2 (06:59→13:17)
[2024-02-17 07:00] VITALS: PULSE 95; RESP 18; O2SAT 94
--- NOTE | 2024-02-17 09:37 | CASEMGMT ---
Addendum entered by Margie Chavez 02/17/24 11:05: Social Work [facility] called back and can now accept pt. SW updated pt's who declines [facility] and will stick with pt to dischrage to [facility]. DC surveyor instrument assistant updated and will notify [facility]. NATACHA Langford Addendum entered by Margie Chavez 02/17/24 10:49: Social Work Follow up phone call to pt's and updated that [facility] cannot accept pt, [facility] and [facility] not responded and [facility] is able to accept. Pt's agreeable to placement at [facility] and choosing a private room. SW provided cost of room and that 30 days upfront is required. Pt's will ask dgt to drop check off at [facility] today. Physician notified and pt is ready for dc today. [facility] notified. PASRR completed in [place]. Plan: [facility], intermediate level of care NATACHA Langford Original Note: Social Work SW spoke with pts and informed that the following facilities CANNOT accept pt: [facility] SW informed that [facility] would be able to accept. Pt's feels this is too far away. SW spoke with regarding other choices and assisted in reviewing list of SNF options. is agreeable to referral to [facility], [facility], [facility] and [facility]. Referral sent to [facility]. DC surveyor instrument assistant updated and to send additional referrals. Pt's is aware pt will be private pay at the facility that is accepting. NATACHA Langford
--- NOTE | 2024-02-17 09:43 | CASEMGMT ---
Addendum entered by Yareli Aleman 02/17/24 10:45: Pts has chosen [facility] as foc. [facility] and OP asked to cancel referral. Yareli Aleman DC Planning Asst. Addendum entered by Yareli Aleman 02/17/24 10:05: [facility] has accepted. SW updated. Yareli Aleman DC Planning Asst. Original Note: Discharge Planning Referral sent to [facility], [facility], and [facility] via [facility]. Yareli Aleman DC Planning Asst.
[2024-02-17] MEDS: Cholecalciferol (VIT D3) 25 MCG TABLET (1,000 UNITS) PO (09:54)
[2024-02-17] MEDS: Magnesium Chloride 64 MG Delay Rel.Tablet 128 MG PO (09:55)
[2024-02-17] MEDS: predniSONE 20 MG Tablet 40 MG PO (09:55)
[2024-02-17] MEDS: Hydroxychloroquine 200 MG Tablet PO (09:55)
[2024-02-17] MEDS: Pantoprazole Sodium 40 MG Tablet PO (09:56)
[2024-02-17] MEDS: Multivitamins,Therapeutic Tablet 1 TABLET PO (09:56)
[2024-02-17] MEDS: Ascorbic Acid 500 MG Tablet 1000 MG PO (09:56)
[2024-02-17] MEDS: Sodium Chloride 1 GM Tablet PO (09:56)
[2024-02-17] MEDS: Losartan Potassium 25 MG Tablet PO (09:56)
[2024-02-17] MEDS: Furosemide 20 MG Tablet PO (09:56)
[2024-02-17] MEDS: Potassium Chloride Oral Tablet 20 MEQ 40 MEQ PO (09:56)
[2024-02-17] MEDS: Clobetasol Propionate 0.05% Cream 1 APPLIC TOPICAL (10:06)
--- NOTE | 2024-02-17 10:06 | CASEMGMT ---
Spoke with patients to complete FALCON form. FALCON form explained to who voiced understanding and acknowledged form. Original form placed in pt?s chart and copy provided to patient. Yareli Aleman, Discharge Planning Asst
[2024-02-17 10:07] VITALS: BP 103/69; PULSE 92; RESP 18; TEMP 36.7; O2SAT 98
--- NOTE | 2024-02-17 11:23 | DS.PCM_ITS ---
Providers Date of Admission: 02/16/24 Primary Care Physician: Dr. Clay Warren MD Reason For Visit: FALLS/WEAKNESS Diagnosis Discharge Diagnosis (1) Weakness: Status: Acute Code(s): R53.1 - Weakness (2) Falls: Status: Acute Code(s): R29.6 - Repeated falls (3) Debility: Status: Chronic Code(s): R53.81 - Other malaise Plan Generalized weakness/debility/falls secondary to chronic comorbidities on top of acute COVID-19 infection -Recent admission was evaluated by PT and OT and recommended placement at discharge however patient was noted as observation and had no Medicare benefit for skilled facility--> referral was offered but family was informed they have to pay [id number] and they declined and decided home with home health care--> now diagnosed with COVID and unable to help him so brought him back to the emergency department for placement [id number] -PT/OT consultation -Case management/social work consultation for assistance with discharge planning Acute COVID-19 infection with acute exacerbation of COPD -Symptoms onset 02/11/2024 -Acute COPD exacerbation had resolved as of yesterday -Oxygen requirements at discharge were no oxygen at rest and 2 L with exertion -Continue prednisone taper Chronic hypoxic respiratory failure secondary to COPD/pulmonary hypertension(who group 2 and 3) -Patient follows with [facility] -Had been on trilogy and chronic supplemental oxygen however as of recently was only on 2 L with exertion -Most recent PFTs show an FEV1 of 57% however it is likely lower now with his lung cancer -Right ventricular systolic pressure was 47 on his last echo in 2016 however expected to be worse at this time -Continue home inhalers -Continue home Lasix Squamous cell carcinoma of the left lung -Patient follows as an outpatient with oncology at [facility] and sees Dr. Murcia -Continue outpatient follow-up History of nonischemic cardiomyopathy/nonobstructive CAD/hyperlipidemia -Patient has had an EF as low as 15 to 20% in 2017 but most recent echocardiogram from August 2018 showed an EF of 65% with stage I diastolic dysfunction -Continue home diuretics -Has ICD -Continue statin -Continue aspirin -Continue losartan Psoriatic arthritis -Continue hydroxychloroquine Hypothyroidism -Continue home levothyroxine -Recent TSH done and within normal limits GERD -Continue home PPI DVT prophylaxis -Lovenox 40 mg daily CODE STATUS -Full code Medications at Discharge Home Medications multivitamin 1 ea PO DAILY SUPPLEMENT 08/27/16 cholecalciferol (vitamin D3) 25 mcg (1,000 unit) tablet 1,000 unit PO DAILY SUPPLEMENT 12/01/18 omeprazole 40 mg capsule,delayed release 40 mg PO DAILY GERD 12/01/18 aspirin 81 mg tablet,delayed release (Adult Aspirin Regimen) 81 mg PO QODAY [facility] 03/28/19 hydroxychloroquine 200 mg tablet 200 mg PO DAILY ARTHRITIS 04/15/21 Disability Placard #1 ea 08/02/21 cetirizine 10 mg capsule (Zyrtec) 10 mg PO DAILY ALLERGIES 11/05/21 triamcinolone acetonide 55 mcg nasal spray aerosol (Nasacort) 1 spray intranasal DAILY PRN ALLERGIES 04/22/22 ascorbic acid (vitamin C) 1,000 mg capsule 1 g PO DAILY SUPPLEMENT 10/21/23 atorvastatin 40 mg tablet 40 mg PO QHS CHOLESTEROL 10/21/23 clobetasol 0.05 % topical cream 1 applic topical DAILY FEET 10/21/23 triamcinolone acetonide 0.1 % topical cream 1 applic topical DAILY SKIN 10/21/23 umeclidinium 62.5 mcg/actuation blister powder for inhalation 1 inh inhalation DAILY COPD #3 ea 10/29/23 levothyroxine 100 mcg tablet 100 mcg PO DAILY THYROID 01/26/24 albuterol sulfate 90 mcg/actuation aerosol inhaler 2 puff inhalation Q4H PRN SHORTNESS OF BREATH/WHEEZING 02/16/24 fluticasone furoate 200 mcg-vilanterol 25 mcg/dose inhalation powder (Breo Ellipta) 1 inh inhalation DAILY COPD 02/16/24 furosemide 20 mg tablet 10 mg PO DAILY EDEMA 02/16/24 hydrocortisone 5 mg tablet 2.5 mg PO QPM INFLAMMATION 02/16/24 hydrocortisone 5 mg tablet 5 mg PO DAILY INFLAMMATION 02/16/24 losartan 25 mg tablet 25 mg PO DAILY BLOOD PRESSURE 02/16/24 magnesium oxide 400 mg (241.3 mg magnesium) tablet 400 mg PO BID SUPPLEMENT 02/16/24 potassium chloride 20 mEq tablet,extended release(part/cryst) 20 meq PO DAILY SUPPLEMENT 02/16/24 sodium chloride 1,000 mg soluble tablet 1,000 mg PO DAILY SUPPLEMENT 02/16/24 Eduardo bunch #1 ea 02/17/24 acetaminophen 325 mg tablet 650 mg (2 x 325 mg) PO Q6H PRN PRN Pain 1-10 Or Fever>100.7 #0 tabs 02/17/24 albuterol sulfate 2.5 mg/3 mL (0.083 %) solution for nebulization 2.5 mg (3 mL) inhalation Q2H PRN PRN SOB &/OR WHEEZING #0 mL 02/17/24 ipratropium 0.5 mg-albuterol 3 mg (2.5 mg base)/3 mL nebulization soln 3 ml inhalation Q6HWA.RT #0 mL 02/17/24 prednisone 10 mg tablet See Taper PO DAILY STEROID #1 TAB 02/17/24 Weight / BMI Weight Weight: 53.116 kg Body Mass Index (BMI) 19.5 ABG / Lab / Microbiology Data 02/16/24 13:04 02/16/24 13:04 Laboratory: Laboratory Results - last 24 hr 02/16/24 12:52: Urine Color Straw, Urine Clarity Clear, Urine pH 5.0, Ur Specific [place] 1.015, Urine Protein Negative, Urine Glucose (UA) Normal, Urine Ketones Negative, Urine Occult Blood Negative, Urine Nitrite Negative, Urine Bilirubin Negative, Urine Urobilinogen Normal, Ur Leukocyte Esterase Negative, Urine RBC 0 SEEN, Urine WBC 0 SEEN, Ur Squamous Epith Cells 0 SEEN, Urine Bacteria 0 SEEN, Urine Mucus 0 SEEN 02/16/24 13:04: WBC 7.8, RBC 3.39 L, Hgb 10.5 L, Hct 32.3 L, MCV 95.3 H, MCH 31.0, MCHC 32.5, RDW Std Deviation 45.4 H, RDW Coeff of Sydni 12.9, Plt Count 197, MPV 9.7, Immature Gran % (Auto) 1.000 H, Neut % (Auto) 88.2 H, Lymph % (Auto) 5.8 L, [place] % (Auto) 5.0, Eos % (Auto) 0.0, Baso % (Auto) 0.0, Absolute Neuts (auto) 6.9, Absolute Lymphs (auto) 0.45 L, Nucleated RBC % 0, Sodium 138, Potassium 5.0, Chloride 107, Carbon Dioxide 25.0, Anion Gap 6, BUN 46 H, Creatinine 1.20, Estim Creat Clear Calc 43.74, Est GFR (MDRD) Af Amer 76, Est GFR (MDRD) Non-Af 63, BUN/Creatinine Ratio 38.3 H, Glucose 133 H, Calcium 9.4, Total Bilirubin 0.30, AST 40 H, ALT 32, Alkaline Phosphatase 46, Total Protein 7.0, Albumin 3.3, Globulin 3.7, Albumin/Globulin Ratio 0.9, TSH 0.98 Radiography Diagnostic Testing: Radiology Impression Chest X-Ray 02/16/24 12:49 IMPRESSION: Stable chest with no acute superimposed findings. Electronically Signed: Sukhdeep Garner MD at 13:03 EDT Reading Location ID and State: [address] [place] [address] , Service support , Meaningful Use Info Ischemic Stroke Statin Dosing Therapy Reference: STATIN DOSE THERAPY REFERENCE: * Patients > 75 years receive moderate or high dose statin therapy. * Patients 75 years or YOUNGER should receive HIGH intensity statin dose unless contraindicated. You will be required to document reason for non-treatment if statin daily dose does not meet guidelines. HIGH DOSE STATIN THERAPY DAILY Atorvastatin > than or = to 40 mg Rosuvastatin > than or = to 20 mg Amlodipine + Atorvastatin > than or = to 2.5/40 mg Ezetimibe + Simvastatin 10/80 mg Simvastatin 80mg Discharge Plan Admission Admit Date/Time: 02/16/24 14:21 Primary Reason for Your Visit: Generalized weakness Attending Provider: Belkis Raza Primary Care Provider: Clay Warren Discharge Orders/Prescriptions Prescriptions: New acetaminophen 325 mg Tablet 650 mg PO Q6H PRN PRN (Reason: Pain 1-10 Or Fever>100.7) Qty: 0 0RF ipratropium-albuterol 0.5 mg-3 mg(2.5 mg base)/3 mL Solution For Nebulization 3 ml inhalation Q6HWA.RT Qty: 0 0RF albuterol sulfate 2.5 mg /3 mL (0.083 %) Solution For Nebulization 2.5 mg inhalation Q2H PRN PRN (Reason: SOB &/OR WHEEZING) Qty: 0 0RF Continued aspirin [Adult Aspirin Regimen] 81 mg tablet,delayed release (DR/EC) 81 mg PO QODAY (DME) Disability Placard See Rx Instructions .Route .MEDSUPPLY Qty: 1 0RF Rx Instructions: Expires 08/02/2026 Zyrtec 10 mg capsule 10 mg PO DAILY triamcinolone acetonide [Nasacort] 55 mcg aerosol,spray 1 spray intranasal DAILY PRN (Reason: ALLERGIES ) Rx Instructions: administer into each nostril levothyroxine 100 mcg tablet 100 mcg PO DAILY multivitamin 1 EACH tablet 1 ea PO DAILY hydroxychloroquine 200 mg tablet 200 mg PO DAILY omeprazole 40 MG capsule,delayed release(DR/EC) 40 mg PO DAILY cholecalciferol (vitamin D3) 1,000 UNIT tablet 1,000 unit PO DAILY triamcinolone acetonide 0.1 % cream 1 applic TOPICAL DAILY ascorbic acid (vitamin C) 1,000 mg capsule 1 g PO DAILY clobetasol 0.05 % cream 1 applic TOPICAL DAILY atorvastatin 40 mg tablet 40 mg PO QHS magnesium oxide 400 mg (241.3 mg magnesium) tablet 400 mg PO BID sodium chloride 1,000 mg tablet,soluble 1,000 mg PO DAILY potassium chloride 20 mEq tablet,ER particles/crystals 20 meq PO DAILY furosemide 20 mg tablet 10 mg PO DAILY losartan 25 mg tablet 25 mg PO DAILY fluticasone furoate-vilanterol [Breo Ellipta] 200-25 mcg/dose blister with device 1 inh inhalation DAILY Rx Instructions: after inhalation, rinse mouth with water and spit out; do not swallow umeclidinium 62.5 mcg/actuation blister with device 1 inh inhalation DAILY Qty: 3 3RF (DME) Eduardo bunch See Rx Instructions .Route .MEDSUPPLY Qty: 1 0RF Rx Instructions: As directed Changed prednisone 10 mg tablet See Taper PO DAILY Qty: 1 0RF Taper: Prednisone Taper 40 mg WITH BREAKFAST for 4 Days 30 mg WITH BREAKFAST for 4 Days 20 mg WITH BREAKFAST for 4 Days 10 mg WITH BREAKFAST for 4 Days Rx Instructions: 4 tablets x 1 day, 3 tablets x 4 days, 2 tablets x 4 days, 1 tablet x 4 days then restart oral hydrocortisone Held hydrocortisone 5 mg tablet 5 mg PO DAILY Hold Instructions: Until prednisone taper is completed albuterol sulfate 90 mcg/actuation HFA aerosol inhaler 2 puff inhalation Q4H PRN (Reason: SHORTNESS OF BREATH/WHEEZING ) Hold Instructions: Until discharge from half-way facility hydrocortisone 5 mg tablet 2.5 mg PO QPM Hold Instructions: Until prednisone taper is completed Referrals / Follow Up: Clay Warren MD [Primary Care Provider] - Within 1 Week (After discharge from SNF) Cheryl Schaeffer NP, MANAGER OF PROCUREMENT-C [Med Staff - Adv Practice Prof] - Within 1 Month (After discharge from SNF) Disposition Disposition (needs filled in before D/C Order can be placed): [facility] Facility Charges/Coding Visit Charges Inpatient E&M: 28197 SNF Disch
--- NOTE | 2024-02-17 11:23 | PCM.DC.SUM ---
Providers Date of Admission: 02/16/24 Date of Discharge: 02/17/24 Primary Care Physician: Dr. Clay Warren MD Reason For Visit: FALLS/WEAKNESS Diagnosis Discharge Diagnosis (1) Weakness: Status: Acute Code(s): R53.1 - Weakness (2) Falls: Status: Acute Code(s): R29.6 - Repeated falls (3) Debility: Status: Chronic Code(s): R53.81 - Other malaise Medications at Discharge Home Medications multivitamin 1 ea PO DAILY SUPPLEMENT 08/27/16 cholecalciferol (vitamin D3) 25 mcg (1,000 unit) tablet 1,000 unit PO DAILY SUPPLEMENT 12/01/18 omeprazole 40 mg capsule,delayed release 40 mg PO DAILY GERD 12/01/18 aspirin 81 mg tablet,delayed release (Adult Aspirin Regimen) 81 mg PO QODAY [facility] 03/28/19 hydroxychloroquine 200 mg tablet 200 mg PO DAILY ARTHRITIS 04/15/21 Disability Placard #1 ea 08/02/21 cetirizine 10 mg capsule (Zyrtec) 10 mg PO DAILY ALLERGIES 11/05/21 triamcinolone acetonide 55 mcg nasal spray aerosol (Nasacort) 1 spray intranasal DAILY PRN ALLERGIES 04/22/22 ascorbic acid (vitamin C) 1,000 mg capsule 1 g PO DAILY SUPPLEMENT 10/21/23 atorvastatin 40 mg tablet 40 mg PO QHS CHOLESTEROL 10/21/23 clobetasol 0.05 % topical cream 1 applic topical DAILY FEET 10/21/23 triamcinolone acetonide 0.1 % topical cream 1 applic topical DAILY SKIN 10/21/23 umeclidinium 62.5 mcg/actuation blister powder for inhalation 1 inh inhalation DAILY COPD #3 ea 10/29/23 levothyroxine 100 mcg tablet 100 mcg PO DAILY THYROID 01/26/24 albuterol sulfate 90 mcg/actuation aerosol inhaler 2 puff inhalation Q4H PRN SHORTNESS OF BREATH/WHEEZING 02/16/24 fluticasone furoate 200 mcg-vilanterol 25 mcg/dose inhalation powder (Breo Ellipta) 1 inh inhalation DAILY COPD 02/16/24 furosemide 20 mg tablet 10 mg PO DAILY EDEMA 02/16/24 hydrocortisone 5 mg tablet 2.5 mg PO QPM INFLAMMATION 02/16/24 hydrocortisone 5 mg tablet 5 mg PO DAILY INFLAMMATION 02/16/24 losartan 25 mg tablet 25 mg PO DAILY BLOOD PRESSURE 02/16/24 magnesium oxide 400 mg (241.3 mg magnesium) tablet 400 mg PO BID SUPPLEMENT 02/16/24 potassium chloride 20 mEq tablet,extended release(part/cryst) 20 meq PO DAILY SUPPLEMENT 02/16/24 sodium chloride 1,000 mg soluble tablet 1,000 mg PO DAILY SUPPLEMENT 02/16/24 Fropriya wheeled walker #1 ea 02/17/24 acetaminophen 325 mg tablet 650 mg (2 x 325 mg) PO Q6H PRN PRN Pain 1-10 Or Fever>100.7 #0 tabs 02/17/24 albuterol sulfate 2.5 mg/3 mL (0.083 %) solution for nebulization 2.5 mg (3 mL) inhalation Q2H PRN PRN SOB &/OR WHEEZING #0 mL 02/17/24 ipratropium 0.5 mg-albuterol 3 mg (2.5 mg base)/3 mL nebulization soln 3 ml inhalation Q6HWA.RT #0 mL 02/17/24 prednisone 10 mg tablet See Taper PO DAILY STEROID #1 TAB 02/17/24 Hospital Course Operations None Procedures - (Chest x-ray) Summary of Care Provided Minutes Spent on Discharge: 29 Hospital Course: JIGNESH LOPEZ, is a 73 M who presented to the emergency department at [facility] on 02/16/2024 due to weakness. He was just discharged yesterday after a brief admission for COVID-19 infection and generalized weakness. He was admitted as observation and at the time of discharge family was inquiring about placement due to his weakness but unfortunately he was admitted to observation with no further admission needs so family was advised about 3 midnight full admission hospital stay for coverage for skilled facility at discharge and family elected to take him home as they would have to pay [id number]. Unfortunately, his who is his primary caregiver, came down with COVID and is feeling ill with decreased capacity to help take care of him at home so he came back to the emergency department with weakness. His respiratory status is at his baseline and he states he is feeling okay. He has not had any falls since discharge. He was seen by physical and Occupational Therapy prior to discharge and they recommended ongoing services and he was set up with home health care. He has no physical complaints other than some generalized weakness which is unchanged from yesterday. He is able to ambulate independently with a wheeled walker. Vital signs on presentation were unremarkable with a temperature of 97.8, heart rate 72, blood pressure 132/41, respiratory rate between 18 and 20 and sats were 99% on room air. His labs were overtly unchanged from yesterday. UA was unremarkable. Chest x-ray shows chronic changes but no acute findings. He was stable throughout his entire hospitalization on his baseline oxygen with no significant lab deviations from his baseline. He was accepted for admission at [facility] and discharged there in stable condition on 02/17/2024. I have asked that he follow-up with his pulmonary doctor within 1 month after discharge from SNF and with his primary care physician within 1 week after discharge from SNF. Discharge diagnoses: Generalized weakness Debility Falls secondary to chronic over many days on top of acute COVID-19 infection Acute COVID-19 infection Acute exacerbation of COPD-resolved Chronic hypoxic respiratory failure COPD Pulmonary hypertension-who group 2 and 3 Squamous cell carcinoma of the left lung History of nonischemic cardiomyopathy Nonobstructive CAD Hyperlipidemia Psoriatic arthritis Hypothyroidism GERD Physical Exam Const alert, oriented x3, no apparent distress and no limitations; Negative for average body habitus, healthy appearing or well nourished Constitutional Narrative: Cachectic appearing, older, white male, sitting up in bed with physical and Occupational Therapy at the bedside getting ready to work with him, appears comfortable, nontoxic General Appearance: cooperative, comfortable, well kempt, frail and appears older than stated age Orientation / Consciousness: awake, oriented to person, oriented to place and oriented to time Exam Limitations: no limitations HEENT normocephalic, head/scalp atraumatic, hearing grossly normal bilaterally and moist oral mucous membranes HEENT Narrative: Dentition is poor, Mallampati is 2, no thrush, temporal wasting Resp normal respiratory effort, no retractions, no use of accessory muscles and clear to auscultation bilaterally Resp Narrative: Diffusely diminished but clear Auscultation: Negative for rales, rhonchi or wheezes Cardio regular rate, regular rhythm, S1 normal heart sound, S2 normal heart sound, no murmurs, no rub, no gallops and no clicks GI normal to inspection, nondistended, normoactive bowel sounds, soft to palpation and non-tender GI Narrative: Scaphoid abdomen Extremity no clubbing, cyanosis or edema Extremity Narrative: Radial pulses and pedal pulses are 1+ bilaterally with 2+ cap refill Skin skin turgor normal and no jaundice Skin Narrative: Skin is thin with scattered ecchymosis in various stages of healing, scattered skin tears Neuro oriented x3, moves all extremities and no focal motor deficits Neuro Narrative: Generalized weakness noted-proximal greater than distal Speech: speech normal Psych affect normal Psych Narrative: Eye contact is good, patient appreciative of care, interacts appropriately Weight / BMI Weight Weight: 53.116 kg Body Mass Index (BMI) 19.5 ABG / Lab / Microbiology Data 02/16/24 13:04 02/16/24 13:04 Laboratory: Laboratory Results - last 24 hr 02/16/24 12:52: Urine Color Straw, Urine Clarity Clear, Urine pH 5.0, Ur Specific [place] 1.015, Urine Protein Negative, Urine Glucose (UA) Normal, Urine Ketones Negative, Urine Occult Blood Negative, Urine Nitrite Negative, Urine Bilirubin Negative, Urine Urobilinogen Normal, Ur Leukocyte Esterase Negative, Urine RBC 0 SEEN, Urine WBC 0 SEEN, Ur Squamous Epith Cells 0 SEEN, Urine Bacteria 0 SEEN, Urine Mucus 0 SEEN 02/16/24 13:04: WBC 7.8, RBC 3.39 L, Hgb 10.5 L, Hct 32.3 L, MCV 95.3 H, MCH 31.0, MCHC 32.5, RDW Std Deviation 45.4 H, RDW Coeff of Sydni 12.9, Plt Count 197, MPV 9.7, Immature Gran % (Auto) 1.000 H, Neut % (Auto) 88.2 H, Lymph % (Auto) 5.8 L, [place] % (Auto) 5.0, Eos % (Auto) 0.0, Baso % (Auto) 0.0, Absolute Neuts (auto) 6.9, Absolute Lymphs (auto) 0.45 L, Nucleated RBC % 0, Sodium 138, Potassium 5.0, Chloride 107, Carbon Dioxide 25.0, Anion Gap 6, BUN 46 H, Creatinine 1.20, Estim Creat Clear Calc 43.74, Est GFR (MDRD) Af Amer 76, Est GFR (MDRD) Non-Af 63, BUN/Creatinine Ratio 38.3 H, Glucose 133 H, Calcium 9.4, Total Bilirubin 0.30, AST 40 H, ALT 32, Alkaline Phosphatase 46, Total Protein 7.0, Albumin 3.3, Globulin 3.7, Albumin/Globulin Ratio 0.9, TSH 0.98 Radiography Diagnostic Testing: Radiology Impression Chest X-Ray 02/16/24 12:49 IMPRESSION: Stable chest with no acute superimposed findings. Electronically Signed: Sukhdeep Garner MD at 13:03 EDT Reading Location ID and State: [address] [place] [address] , Service support , Meaningful Use Info Meaningful Use Meaningful Use Diagnoses (Choose all that apply): None applicable Ischemic Stroke Statin Dosing Therapy Reference: STATIN DOSE THERAPY REFERENCE: * Patients > 75 years receive moderate or high dose statin therapy. * Patients 75 years or YOUNGER should receive HIGH intensity statin dose unless contraindicated. You will be required to document reason for non-treatment if statin daily dose does not meet guidelines. HIGH DOSE STATIN THERAPY DAILY Atorvastatin > than or = to 40 mg Rosuvastatin > than or = to 20 mg Amlodipine + Atorvastatin > than or = to 2.5/40 mg Ezetimibe + Simvastatin 10/80 mg Simvastatin 80mg Discharge Plan Admission Admit Date/Time: 02/16/24 14:21 Primary Reason for Your Visit: Generalized weakness Attending Provider: Belkis Raza Primary Care Provider: Clay Warren Discharge Orders/Prescriptions Prescriptions: New acetaminophen 325 mg Tablet 650 mg PO Q6H PRN PRN (Reason: Pain 1-10 Or Fever>100.7) Qty: 0 0RF ipratropium-albuterol 0.5 mg-3 mg(2.5 mg base)/3 mL Solution For Nebulization 3 ml inhalation Q6HWA.RT Qty: 0 0RF albuterol sulfate 2.5 mg /3 mL (0.083 %) Solution For Nebulization 2.5 mg inhalation Q2H PRN PRN (Reason: SOB &/OR WHEEZING) Qty: 0 0RF Continued aspirin [Adult Aspirin Regimen] 81 mg tablet,delayed release (DR/EC) 81 mg PO QODAY (DME) Disability Placard See Rx Instructions .Route .MEDSUPPLY Qty: 1 0RF Rx Instructions: Expires 08/02/2026 Zyrtec 10 mg capsule 10 mg PO DAILY triamcinolone acetonide [Nasacort] 55 mcg aerosol,spray 1 spray intranasal DAILY PRN (Reason: ALLERGIES ) Rx Instructions: administer into each nostril levothyroxine 100 mcg tablet 100 mcg PO DAILY multivitamin 1 EACH tablet 1 ea PO DAILY hydroxychloroquine 200 mg tablet 200 mg PO DAILY omeprazole 40 MG capsule,delayed release(DR/EC) 40 mg PO DAILY cholecalciferol (vitamin D3) 1,000 UNIT tablet 1,000 unit PO DAILY triamcinolone acetonide 0.1 % cream 1 applic TOPICAL DAILY ascorbic acid (vitamin C) 1,000 mg capsule 1 g PO DAILY clobetasol 0.05 % cream 1 applic TOPICAL DAILY atorvastatin 40 mg tablet 40 mg PO QHS magnesium oxide 400 mg (241.3 mg magnesium) tablet 400 mg PO BID sodium chloride 1,000 mg tablet,soluble 1,000 mg PO DAILY potassium chloride 20 mEq tablet,ER particles/crystals 20 meq PO DAILY furosemide 20 mg tablet 10 mg PO DAILY losartan 25 mg tablet 25 mg PO DAILY fluticasone furoate-vilanterol [Breo Ellipta] 200-25 mcg/dose blister with device 1 inh inhalation DAILY Rx Instructions: after inhalation, rinse mouth with water and spit out; do not swallow umeclidinium 62.5 mcg/actuation blister with device 1 inh inhalation DAILY Qty: 3 3RF (DME) Eduardo bunch See Rx Instructions .Route .MEDSUPPLY Qty: 1 0RF Rx Instructions: As directed Changed prednisone 10 mg tablet See Taper PO DAILY Qty: 1 0RF Taper: Prednisone Taper 40 mg WITH BREAKFAST for 4 Days 30 mg WITH BREAKFAST for 4 Days 20 mg WITH BREAKFAST for 4 Days 10 mg WITH BREAKFAST for 4 Days Rx Instructions: 4 tablets x 1 day, 3 tablets x 4 days, 2 tablets x 4 days, 1 tablet x 4 days then restart oral hydrocortisone Held hydrocortisone 5 mg tablet 5 mg PO DAILY Hold Instructions: Until prednisone taper is completed albuterol sulfate 90 mcg/actuation HFA aerosol inhaler 2 puff inhalation Q4H PRN (Reason: SHORTNESS OF BREATH/WHEEZING ) Hold Instructions: Until discharge from [facility] facility hydrocortisone 5 mg tablet 2.5 mg PO QPM Hold Instructions: Until prednisone taper is completed Referrals / Follow Up: Clay Warren MD [Primary Care Provider] - Within 1 Week (After discharge from SNF) Schaeffer,Cheryl DIGITAL TECH, DIGITAL TECH-C [Med Staff - Adv Practice Prof] - Within 1 Month (After discharge from SNF) Disposition Disposition (needs filled in before D/C Order can be placed): [facility] Facility Charges/Coding Visit Charges Inpatient E&M: 79878 SNF Disch
[2024-02-17] MEDS: Fluticasone 0.05% 1 SPRAY NASAL.SRY NASAL (11:29)
[2024-02-17] MEDS: Enoxaparin 40 MG/0.4 ML Syringe SC (11:29)
--- NOTE | 2024-02-17 12:48 | PCM.TXEXTCAR ---
Diet Diet Order/Speech Therapy: 02/16/24 15:25 Diet: Regular - General Food consistency:: Regular Liquid Consistency:: Regular/Thin Is pt able to select menu?: Yes Routine Orders/Code Status Suppository Frequency: Daily PRN O2 Liters per Minute: 2 O2 Frequency: Continuous Keep PO Greater than or Equal to (%): 88 (Okay to be 88 to 92%) Routine Lab Work: CBC (1 week) and BMP (1 week) Code Status: Full Code Wound(s) rt arm: Wound Type: Skin Tear Suggestions for Active Care Change Position every (hours): 2 Hours to sit in a chair: 2 Times a day to sit in chair: 3 Therapies Weight Bearing: Full weight bearing Physical Therapy: Eval and Treat Occupational Therapy: Eval and Treat Problem/Diagnosis (1) Weakness: Status: Acute Code(s): R53.1 - Weakness (2) Falls: Status: Acute Code(s): R29.6 - Repeated falls (3) Debility: Status: Chronic Code(s): R53.81 - Other malaise Allergies/Procedures Done in Hospital Allergies No Known Allergies Allergy (Verified 02/13/24 12:10) Procedures: None Type of Care/Length of Stay Estimated LOS: Convalescent Care Less Than 30 days Type of Care Needed: Intermediate Rehab Potential: Fair Prognosis: Fair Additional Orders/Day of Discharge Day of Discharge: 02/17/24 Discharge Plan Admission Admit Date/Time: 02/16/24 14:21 Primary Reason for Your Visit: Generalized weakness Attending Provider: Belkis Raza Primary Care Provider: Clay Warren Discharge Orders/Prescriptions Prescriptions: New acetaminophen 325 mg Tablet 650 mg PO Q6H PRN PRN (Reason: Pain 1-10 Or Fever>100.7) Qty: 0 0RF ipratropium-albuterol 0.5 mg-3 mg(2.5 mg base)/3 mL Solution For Nebulization 3 ml inhalation Q6HWA.RT Qty: 0 0RF albuterol sulfate 2.5 mg /3 mL (0.083 %) Solution For Nebulization 2.5 mg inhalation Q2H PRN PRN (Reason: SOB &/OR WHEEZING) Qty: 0 0RF Continued aspirin [Adult Aspirin Regimen] 81 mg tablet,delayed release (DR/EC) 81 mg PO QODAY (DME) Disability Placard See Rx Instructions .Route .MEDSUPPLY Qty: 1 0RF Rx Instructions: Expires 08/02/2026 Zyrtec 10 mg capsule 10 mg PO DAILY triamcinolone acetonide [Nasacort] 55 mcg aerosol,spray 1 spray intranasal DAILY PRN (Reason: ALLERGIES ) Rx Instructions: administer into each nostril levothyroxine 100 mcg tablet 100 mcg PO DAILY multivitamin 1 EACH tablet 1 ea PO DAILY hydroxychloroquine 200 mg tablet 200 mg PO DAILY omeprazole 40 MG capsule,delayed release(DR/EC) 40 mg PO DAILY cholecalciferol (vitamin D3) 1,000 UNIT tablet 1,000 unit PO DAILY triamcinolone acetonide 0.1 % cream 1 applic TOPICAL DAILY ascorbic acid (vitamin C) 1,000 mg capsule 1 g PO DAILY clobetasol 0.05 % cream 1 applic TOPICAL DAILY atorvastatin 40 mg tablet 40 mg PO QHS magnesium oxide 400 mg (241.3 mg magnesium) tablet 400 mg PO BID sodium chloride 1,000 mg tablet,soluble 1,000 mg PO DAILY potassium chloride 20 mEq tablet,ER particles/crystals 20 meq PO DAILY furosemide 20 mg tablet 10 mg PO DAILY losartan 25 mg tablet 25 mg PO DAILY fluticasone furoate-vilanterol [Breo Ellipta] 200-25 mcg/dose blister with device 1 inh inhalation DAILY Rx Instructions: after inhalation, rinse mouth with water and spit out; do not swallow umeclidinium 62.5 mcg/actuation blister with device 1 inh inhalation DAILY Qty: 3 3RF (DME) Eduardo bunch See Rx Instructions .Route .MEDSUPPLY Qty: 1 0RF Rx Instructions: As directed Changed prednisone 10 mg tablet See Taper PO DAILY Qty: 1 0RF Taper: Prednisone Taper 40 mg WITH BREAKFAST for 4 Days 30 mg WITH BREAKFAST for 4 Days 20 mg WITH BREAKFAST for 4 Days 10 mg WITH BREAKFAST for 4 Days Rx Instructions: 4 tablets x 1 day, 3 tablets x 4 days, 2 tablets x 4 days, 1 tablet x 4 days then restart oral hydrocortisone Held hydrocortisone 5 mg tablet 5 mg PO DAILY Hold Instructions: Until prednisone taper is completed albuterol sulfate 90 mcg/actuation HFA aerosol inhaler 2 puff inhalation Q4H PRN (Reason: SHORTNESS OF BREATH/WHEEZING ) Hold Instructions: Until discharge from half-way facility hydrocortisone 5 mg tablet 2.5 mg PO QPM Hold Instructions: Until prednisone taper is completed Referrals / Follow Up: Clay Warren MD [Primary Care Provider] - Within 1 Week (After discharge from SNF) Cheryl Schaeffer NP, [employer] [Med Staff - Adv Practice Prof] - Within 1 Month (After discharge from SNF) Disposition Disposition (needs filled in before D/C Order can be placed): [facility]
[2024-02-17 12:58] VITALS: BP 132/75; PULSE 86; RESP 18; TEMP 37.2; O2SAT 95
[2024-02-17 13:18] VITALS: PULSE 91; RESP 18
--- NOTE | 2024-02-17 13:23 | CASEMGMT ---
Discharge Planning Discharge orders, signed med list, and transport time sent to [facility] via [facility]. Physicians will transport patient by wheelchair at 1:30p. Nursing, SW, patient, and his updated. Yareli Aleman DC Planning Asst.
== END 2024-02-17 13:59 | disposition skilled nursing facility (03) ==
LOC: ED 14:33 → MS3 14:44
PROVIDERS: Admitting Provider Internal Medicine; Emergency Provider Emergency Medicine; PCP Family Medicine; Visit Provider Internal Medicine
DX: R53.1 Weakness (principal); C34.90 Malignant neoplasm of unspecified part of unspecified bronchus or lung; L40.50 Arthropathic psoriasis, unspecified; J96.11 Chronic respiratory failure with hypoxia; I50.22 Chronic systolic (congestive) heart failure; I27.21 Secondary pulmonary arterial hypertension; J44.9 Chronic obstructive pulmonary disease, unspecified; I42.8 Other cardiomyopathies; U07.1 COVID-19; R53.81 Other malaise; Z87.891 Personal history of nicotine dependence; Z79.82 Long term (current) use of aspirin; K21.9 Gastro-esophageal reflux disease without esophagitis; Z79.51 Long term (current) use of inhaled steroids; E78.5 Hyperlipidemia, unspecified; I25.10 Atherosclerotic heart disease of native coronary artery without angina pectoris; R29.6 Repeated falls; Z79.899 Other long term (current) drug therapy; E03.9 Hypothyroidism, unspecified; Z79.890 Hormone replacement therapy
CPT/HCPCS: 71045; 80053; 81001; 84443; 85025; 94002; 94640; 94660; 94668; 96372; 97162; 97166; 99221; 99252; 99284; P9612; A4216; G0378; G0463

== ENCOUNTER → 2024-02-19 04:00 | Outpatient (REF) | payer MEDICARE, OTHER, SELFPAY ==
[2024-02-19 09:12] LABS: Hematocrit 30.9 % (40-54); Hemoglobin 10.2 g/dL (13.0-16.5); Mean Corpuscular Hgb 32.3 pg (27.0-32.0); Mean Corpuscular Volume 97.8 fL (80-94); Mean Platelet Vol. 10.4 fl (6.2-12.0); Platelet Count 169 K/mm3 (150-450); RBC Distribution Width CV 12.9 % (11.6-14.6); RBC Distribution Width SD 45.9 fl (35.1-43.9); Red Blood Count 3.16 M/mm3 (4.6-6.2); White Blood Count 5.8 K/mm3 (4.4-11.0)
[2024-02-19 10:29] LABS: Anion Gap 8 (5-15); BUN 47 mg/dL (7-18); Calcium,Total 9.3 mg/dL (8.5-10.1); Chloride 105 mmol/L (98-107); Creatinine, Serum 1.47 mg/dL (0.70-1.30); EST Glomerular Filtration Rate 50 mL/min (>60); Est Glom Filt Rate - Afr Amer 60 mL/min (>60); Glucose 95 mg/dL (74-106); Potassium 3.9 mmol/L (3.5-5.1); Sodium Level 139 mmol/L (136-145)
== END ==
LOC: OLS.SW 04:00
PROVIDERS: PCP Family Medicine; Referring Provider Internal Medicine; Visit Provider Internal Medicine
DX: Z02.2 Encounter for examination for admission to residential institution (principal)
CPT/HCPCS: 36415; 80048; 85027

== ENCOUNTER → 2024-02-25 05:00 | Outpatient (REF) | payer MEDICARE, OTHER, SELFPAY ==
[2024-02-25 08:26] LABS: Hematocrit 29.2 % (40-54); Hemoglobin 9.5 g/dL (13.0-16.5); Mean Corp Hgb Conc 32.5 g/dL (32-36); Mean Corpuscular Hgb 32.3 pg (27.0-32.0); Mean Corpuscular Volume 99.3 fL (80-94); Mean Platelet Vol. 10.5 fl (6.2-12.0); Platelet Count 149 K/mm3 (150-450); RBC Distribution Width CV 13.2 % (11.6-14.6); RBC Distribution Width SD 46.7 fl (35.1-43.9); Red Blood Count 2.94 M/mm3 (4.6-6.2); White Blood Count 8.7 K/mm3 (4.4-11.0)
[2024-02-25 08:35] LABS: Anion Gap 4 (5-15); BUN 41 mg/dL (7-18); BUN/Creat Ratio 32.3 RATIO (10-20); Calcium,Total 9.1 mg/dL (8.5-10.1); Chloride 102 mmol/L (98-107); Creatinine, Serum 1.27 mg/dL (0.70-1.30); EST Glomerular Filtration Rate 59 mL/min (>60); Est Glom Filt Rate - Afr Amer 72 mL/min (>60); Glucose 97 mg/dL (74-106); Potassium 4.1 mmol/L (3.5-5.1); Sodium Level 138 mmol/L (136-145)
== END ==
LOC: OLS.SW 05:00
PROVIDERS: PCP Family Medicine; Visit Provider Family Medicine
DX: U07.1 COVID-19 (principal); J44.9 Chronic obstructive pulmonary disease, unspecified; J96.11 Chronic respiratory failure with hypoxia; E50.9 Vitamin A deficiency, unspecified
CPT/HCPCS: 36415; 80048; 85027

== ENCOUNTER → 2024-03-03 05:00 | Outpatient (REF) | payer MEDICARE, OTHER, SELFPAY ==
[2024-03-03 07:43] LABS: Hematocrit 27.5 % (40-54); Hemoglobin 8.7 g/dL (13.0-16.5); Mean Corp Hgb Conc 31.6 g/dL (32-36); Mean Corpuscular Hgb 31.6 pg (27.0-32.0); Mean Platelet Vol. 9.9 fl (6.2-12.0); Platelet Count 143 K/mm3 (150-450); RBC Distribution Width CV 13.2 % (11.6-14.6); RBC Distribution Width SD 47.8 fl (35.1-43.9); Red Blood Count 2.75 M/mm3 (4.6-6.2); White Blood Count 5.9 K/mm3 (4.4-11.0)
[2024-03-03 07:58] LABS: Anion Gap 4 (5-15); BUN 35 mg/dL (7-18); BUN/Creat Ratio 34.3 RATIO (10-20); Calcium,Total 8.9 mg/dL (8.5-10.1); Chloride 106 mmol/L (98-107); Creatinine, Serum 1.02 mg/dL (0.70-1.30); EST Glomerular Filtration Rate 76 mL/min (>60); Est Glom Filt Rate - Afr Amer 92 mL/min (>60); Glucose 91 mg/dL (74-106); Potassium 4.1 mmol/L (3.5-5.1); Sodium Level 142 mmol/L (136-145)
== END ==
LOC: OLS.SW 05:00
PROVIDERS: PCP Family Medicine; Visit Provider Family Medicine
DX: I27.20 Pulmonary hypertension, unspecified (principal); I50.9 Heart failure, unspecified
CPT/HCPCS: 36415; 80048; 85027

== ENCOUNTER 2024-03-17 06:17 | Outpatient (RCR) | payer SELFPAY | END 2024-04-16 23:59 | LOC: PR 06:17 | PROVIDERS: PCP Family Medicine; Referring Provider Internal Medicine Critical Care Medicine; Visit Provider Internal Medicine Critical Care Medicine | DX: Z00.00 Encounter for general adult medical examination without abnormal findings (principal) ==

== ENCOUNTER → 2024-04-05 | Outpatient (REF) | payer MEDICARE, OTHER, SELFPAY ==
[2024-04-05 09:56] LABS: Hematocrit 24.4 % (40-54); Hemoglobin 7.7 g/dL (13.0-16.5); Mean Corp Hgb Conc 31.6 g/dL (32-36); Mean Corpuscular Hgb 30.9 pg (27.0-32.0); Mean Platelet Vol. 8.9 fl (6.2-12.0); Platelet Count 223 K/mm3 (150-450); RBC Distribution Width CV 14.2 % (11.6-14.6); RBC Distribution Width SD 50.5 fl (35.1-43.9); Red Blood Count 2.49 M/mm3 (4.6-6.2); White Blood Count 5.5 K/mm3 (4.4-11.0)
[2024-04-05 10:11] LABS: Anion Gap 7 (5-15); BUN 19 mg/dL (7-18); Chloride 94 mmol/L (98-107); Creatinine, Serum 1.12 mg/dL (0.70-1.30); EST Glomerular Filtration Rate 68 mL/min (>60); Est Glom Filt Rate - Afr Amer 83 mL/min (>60); Glucose 111 mg/dL (74-106); Potassium 4.2 mmol/L (3.5-5.1); Sodium Level 130 mmol/L (136-145)
== END ==
LOC: OLS.SW 05:00
PROVIDERS: PCP Family Medicine; Visit Provider Family Medicine
DX: N39.0 Urinary tract infection, site not specified (principal)
CPT/HCPCS: 36415; 80048; 85027

== ENCOUNTER → 2024-04-05 | Outpatient (REF) | payer MEDICARE, OTHER, SELFPAY ==
[2024-04-05 10:06] LABS: Bacteria 0 SEEN /hpf (None Seen); Mucous, Urine 0 SEEN /hpf (<or=2+); Red Blood Cells-Urine 0 SEEN /hpf (0-5); Squamous Epithelial Cells - UA 0 SEEN /hpf (0-5)
[2024-04-05 10:11] LABS: Color, Urine Yellow (Yellow); Glucose, Dipstick Normal (Normal); Ketone-Dipstick Negative (Negative); Leukocyte Esterase-Dipstick 500 /ul (Negative); Nitrite-Dipstick Negative (Negative); Occult Blood-Urine 25 /ul (Negative); Protein-Dipstick 30 mg/dl (Negative); Urine Bilirubin Dipstick Negative (Negative); Urine Clarity Sl. Cloudy (Clear); Urine Urobilinogen Normal (Normal)
[2024-04-05 10:23] LABS: White Blood Cells >100 SEEN /hpf (0-5)
== END ==
LOC: OLS.SW 04:00
PROVIDERS: PCP Family Medicine; Visit Provider Family Medicine
DX: N39.0 Urinary tract infection, site not specified (principal)
CPT/HCPCS: 81001; 87077; 87086; 87088; 87186

== ENCOUNTER → 2024-04-06 | Outpatient (REF) | payer MEDICARE, OTHER, SELFPAY ==
[2024-04-06 08:46] LABS: Anion Gap 5 (5-15); BUN 19 mg/dL (7-18); BUN/Creat Ratio 18.3 RATIO (10-20); Calcium,Total 8.7 mg/dL (8.5-10.1); Chloride 94 mmol/L (98-107); Creatinine, Serum 1.04 mg/dL (0.70-1.30); EST Glomerular Filtration Rate 74 mL/min (>60); Est Glom Filt Rate - Afr Amer 90 mL/min (>60); Glucose 102 mg/dL (74-106); Potassium 4.2 mmol/L (3.5-5.1); Sodium Level 128 mmol/L (136-145)
== END ==
LOC: OLS.SW 05:00
PROVIDERS: PCP Family Medicine; Visit Provider Internal Medicine
DX: D64.9 Anemia, unspecified (principal); J44.9 Chronic obstructive pulmonary disease, unspecified; J96.12 Chronic respiratory failure with hypercapnia
CPT/HCPCS: 36415; 80048

== ENCOUNTER 2024-04-11 15:03 | Inpatient (IN) | payer MEDICARE, OTHER, SELFPAY ==
[2024-04-11] VITALS (12 sets, daily range): BP systolic 100–135; BP diastolic 39–62; PULSE 77–91; RESP 14–24; TEMP 35.9–37.1; O2SAT 96–100; BMI 22.1
--- NOTE | 2024-04-11 15:54 | EX.ED.DYSGE1 ---
HPI History of Present Illness Chief Complaint: Abn Labs Informant: patient and spouse/S.O. Narrative Narrative: Sent from [facility] [place] for abnormal labs hemoglobin 6.4 today. Spouse: Present. Winded for 6 weeks after being diagnosed with COVID and hospitalized. Currently on oxygen currently on 2 L. I did do blood work on him they reported stool test in the week was negative. I did monitor hemoglobin. He is on baby aspirin every other day. No other blood thinners. Denies abdominal pain. Reported from nursing for episode concerns for distended firm abdomen, however patient and spouse states this is his normal abdomen. He denies any black or bloody stools. States 2019 had hemoglobin 6.1 requiring transfusion at that time. They are reporting increasing fatigue. History of defibrillator 5 years ago due to heart failure. No heart stents or CABG. he is not currently on any iron supplements. Prior similar symptoms: Yes [facility] Medical History History of chronic CHF Chronic respiratory failure with hypoxia GERD (gastroesophageal reflux disease) Hypothyroidism Debility Lung cancer Anemia Arthritis Lesion of pelvic bone Pneumothorax after biopsy Secondary pulmonary arterial hypertension Nonischemic cardiomyopathy Severe left ventricular systolic dysfunction Atherosclerotic heart disease of [place] coronary artery without angina pectoris PVD (peripheral vascular disease) Stage 3 severe COPD by GOLD classification Hyperlipidemia CHF (congestive heart failure), NYHA class I Psoriatic arthritis Home Medications ?Medication ?Instructions ?Recorded ?Last Taken ?Type multivitamin 1 ea PO DAILY SUPPLEMENT 08/27/16 02/16/24 History omeprazole 40 mg capsule,delayed 40 mg PO DAILY GERD 12/01/18 02/16/24 History release [facility] 81 mg tablet,[facility] 02/15/24 History release (Adult Aspirin Regimen) hydroxychloroquine 200 mg tablet 200 mg PO DAILY ARTHRITIS 04/15/21 02/16/24 History Disability Placard #1 ea 08/02/21 Unknown Rx cetirizine 10 mg capsule (Zyrtec) 10 mg PO DAILY ALLERGIES 11/05/21 02/16/24 History triamcinolone acetonide 55 mcg 1 spray intranasal DAILY PRN 04/22/22 Unknown History nasal spray aerosol (Nasacort) ALLERGIES ascorbic acid (vitamin C) 1,000 mg 1 g PO DAILY SUPPLEMENT 10/21/23 02/16/24 History capsule atorvastatin 40 mg tablet 40 mg PO QHS CHOLESTEROL 10/21/23 02/15/24 History clobetasol 0.05 % topical cream 1 applic topical DAILY FEET 10/21/23 02/15/24 History triamcinolone acetonide 0.1 % 1 applic topical DAILY SKIN 10/21/23 02/15/24 History topical cream umeclidinium 62.5 mcg/actuation 1 inh inhalation DAILY COPD #3 ea 10/29/23 02/15/24 Rx blister powder for inhalation levothyroxine 100 mcg tablet 100 mcg PO DAILY THYROID 01/26/24 02/16/24 History albuterol sulfate 90 mcg/actuation 2 puff inhalation Q4H PRN 02/16/24 Unknown History aerosol inhaler SHORTNESS OF BREATH/WHEEZING fluticasone furoate 200 1 inh inhalation DAILY COPD 02/16/24 02/15/24 History mcg-vilanterol 25 mcg/dose inhalation powder (Breo Ellipta) magnesium oxide 400 mg (241.3 mg 400 mg PO BID SUPPLEMENT 02/16/24 02/16/24 History magnesium) tablet potassium chloride 20 mEq 20 meq PO DAILY SUPPLEMENT 02/16/24 02/16/24 History tablet,extended release(part/cryst) Eduardo pelletier walker #1 ea 02/17/24 Unknown Rx acetaminophen 325 mg tablet 650 mg (2 x 325 mg) PO Q6H PRN PRN 02/17/24 Unknown Rx Pain 1-10 Or Fever>100.7 #0 tabs albuterol sulfate 2.5 mg/3 mL 2.5 mg (3 mL) inhalation Q2H PRN 02/17/24 Unknown Rx (0.083 %) solution for nebulization PRN SOB &/OR WHEEZING #0 mL ipratropium 0.5 mg-albuterol 3 mg 3 ml inhalation Q6HWA.RT #0 mL 02/17/24 Unknown Rx (2.5 mg base)/3 mL nebulization soln losartan 25 mg tablet 25 mg PO DAILY BLOOD PRESSURE #90 03/11/24 Unknown Rx tabs cholecalciferol (vitamin D3) 25 1,000 unit PO BID SUPPLEMENT 03/15/24 Unknown History mcg (1,000 unit) tablet furosemide 20 mg tablet 20 mg PO DAILY EDEMA 03/15/24 Unknown History sodium chloride 1,000 mg soluble 1,000 mg PO BID SUPPLEMENT 03/15/24 Unknown History tablet tamsulosin 0.4 mg capsule 0.4 mg PO DAILY 04/11/24 Unknown History Allergy/AdvReac Type Severity Reaction Status Date / Time No Known Allergies Allergy Verified 03/15/24 15:28 Family History Mother Heart disease Brother CVA (cerebral vascular accident) Father Cancer brain Grandmother Diabetes Surgical History History of appendectomy (~12/26/19) Implantable cardioverter-defibrillator (ICD) in situ (12/27/16) Social History (Updated 04/11/24 @ 20:04 by Lynda Aquino) household members: spouse and other housing: senior care do you think of yourself as: straight/heterosexual Smoking Status: Former smoker how long ago did patient quit smokin, 1.5p/day second hand exposure: Yes alcohol intake: never substance use type: does not use caffeine: Yes Type: coffee Number of servings: 2 what type of physical activity do you participate in: walking frequency: 3-4 times per week ROS ROS ED Constitutional Constitutional ED: Reports other Details: Fatigue ; Denies chills, fever(s) or sweats Eyes Eyes: Denies change in vision ENT ENT ED: Denies dysphagia or sore throat Cardiovascular Cardiovascular: Denies chest pain, leg edema, palpitations or racing heartbeat Respiratory/Chest Respiratory/Chest: Denies cough, dyspnea or dyspnea on exertion Gastrointestinal Gastrointestinal: Denies abdominal pain, diarrhea, nausea or vomiting Genitourinary Genitourinary ED: Denies dysuria, hematuria or urinary frequency Musculoskeletal Musculoskeletal: Denies back pain, extremity pain or neck pain Integumentary Denies rash or wounds Neurologic Neurologic: Denies headache(s), paresthesias or weakness EXAM Physical Exam Const Vital Signs: 04/11/24 15:04 04/11/24 15:09 04/11/24 17:11 Temperature 97.2 F L Temperature Source Temporal Pulse Rate 88 91 Respiratory Rate 18 19 H Respiratory Effort Short of Breath Respiratory Pattern Normal Blood Pressure 103/39 L 118/41 L Blood Pressure Mean 60 66 Pulse Ox 96 97 Oxygen Delivery Method Nasal Cannula Room Air Positive well nourished and well developed Constitutional Narrative: Nontoxic, chronic 2 L nasal cannula. General Appearance ED: well developed and NAD HEENT Reports moist mucous membranes normocephalic and atraumatic Eyes EOMs intact bilaterally and conjunctivae normal General Eye ED: Yes normal appearance of both eyes and pale conjunctiva Neck no lymphadenopathy and supple General: Negative for tenderness Chest Wall Chest: Negative for tenderness Resp normal respiratory effort and normal air movement Effort and Inspection: symmetric chest movement; Negative for respiratory distress Cardio regular rate, regular rhythm and no murmurs Peripheral Pulses: pulses 2+ throughout GI normal to inspection, nondistended, normoactive bowel sounds and non-tender GI Narrative: Rectal, no hemorrhoids noted. Brown stool was Hemoccult pending. Palpation: Negative for guarding or rebound tenderness present Back/Spine no CVA tenderness and no thoracic nor lumbar tenderness Extremity normal to inspection General Extremety ED: Negative for edema or tenderness General Extremity: Negative for edema Neuro oriented x3 and no sensory deficits noted Sensorium / Orientation: awake and alert Skin no rashes or lesions noted and no wounds MDM MDM MDM Narrative Medical decision making narrative: Interventions / MDM: Differential diagnosis: Symptomatic anemia, history of CHF, chronic oxygenation Diagnosis considered but do not suspect: Rectal bleeding, however Hemoccult negative My EKG interpretation: N/A Imaging independently reviewed and interpreted by myself: N/A External documents reviewed: Labs hemoglobin 6.4 today, previous hemoglobin 7.7 6 days ago, 6 weeks ago approximately 8.7. Test considered but not ordered:N/A ED course: Patient anemia with increasing fatigue. Will recheck CBC coags and iron studies. Will perform a rectal exam. 1624: Hemoglobin confirmed at 6.6 Hemoccult negative. I did send for iron studies. Patient ordered for 2 units of blood to be transfused over slow rate with his CHF history. Consent will be obtained by nursing. I discussed with hospitalist Dr. Kearney for admission. Re-evaluation: stable Disposition discussed with patient/family/significant other: Patient Case discussed with consulting clinician: Hospitalist This note was generated with [employer] dictation software. It may contain incorrect words, spelling, and punctuation that were not noted in checking the note before signing. Lab Data Attestation: I reviewed the patient's lab results. Labs: Laboratory Results - last 24 hr 08/26/24 08/26/24 08/26/24 15:35 15:37 15:59 WBC 6.5 RBC 2.15 L Hgb 6.6 L Hct 20.6 L MCV 95.8 H MCH 30.7 MCHC 32.0 RDW Std Deviation 49.0 H RDW Coeff of Sydni 14.4 Plt Count 208 MPV 8.5 Immature Gran % (Auto) 0.800 Neut % (Auto) 68.3 Lymph % (Auto) 10.0 L Rutherford % (Auto) 12.9 H Eos % (Auto) 7.4 H Baso % (Auto) 0.6 Absolute Neuts (auto) 4.4 Absolute Lymphs (auto) 0.65 L Nucleated RBC % 0 Retic Count 2.88 H Immature Retic Fraction 21.50 H Retic Hgb Equivalent 30.7 PT 14.2 INR 1.1 APTT 42.1 H Serum Osmolality 269 L Iron 29 L TIBC 239 L Iron Saturation 12.1 L Ferritin 741 H Total Bilirubin 0.20 Direct Bilirubin 0.09 AST 29 ALT 30 Alkaline Phosphatase 53 Lactate Dehydrogenase 237 Total Protein 5.9 L Albumin 2.5 L Globulin 3.4 Vitamin B12 764 Folate 18.40 Blood Type O NEGATIVE Antibody Screen NEGATIVE Crossmatch See Detail Discharge Plan Dx/Rx/DC Orders Clinical Impression: Symptomatic anemia, Implantable cardioverter-defibrillator (ICD) in situ, Fatigue, History of chronic CHF Disposition Disposition: Acute Care Hospital [facility] Discharge Date/Time: 04/11/24 17:56
[2024-04-11 16:11] LABS: Absolute Lymphocyte Count 0.65 X10^3/uL (0.83-4.51); Absolute Neutrophil Count 4.4 X10^3/uL (2.0-7.7); Basophil# 0.04 X10^3/uL; Basophil% 0.6 % (0-1); Eosinophil# 0.48 X10^3/uL; Eosinophils% 7.4 % (0-5); Hematocrit 20.6 % (40-54); Hemoglobin 6.6 g/dL (13.0-16.5); Lymphocyte # 0.65 X10^3/ul (0.83-4.51); Mean Corpuscular Hgb 30.7 pg (27.0-32.0); Mean Corpuscular Volume 95.8 fL (80-94); Mean Platelet Vol. 8.5 fl (6.2-12.0); Monocyte# 0.84 X10^3/uL; Monocyte% 12.9 % (0-10); NRBC Flagged by Analyzer 0 % (0-5); Neutrophil # 4.43 X10^3/uL (2.7-7.7); Neutrophil % 68.3 % (47-70); Platelet Count 208 K/mm3 (150-450); RBC Distribution Width CV 14.4 % (11.6-14.6); Red Blood Count 2.15 M/mm3 (4.6-6.2); White Blood Count 6.5 K/mm3 (4.4-11.0)
[2024-04-11 16:39] LABS: International Normalized Ratio 1.1; Prothrombin Time (Protime)PT. 14.2 SECONDS (11.7-14.9)
[2024-04-11 16:40] LABS: Partial Thromboplast Time 42.1 Seconds (24.1-36.2)
[2024-04-11 16:44] LABS: Vitamin B12 764 pg/mL (211-911)
[2024-04-11 16:54] LABS: Ferritin 741 ng/mL (26-388); Iron 29 ug/dL (65-175); Iron Binding Capacity,Total 239 ug/dL (250-450); PERCENT IRON SATURATION 12.1 % (15.0-55.0)
--- NOTE | 2024-04-11 17:15 | HP.PCM.HOS_ITS ---
HPI - General General Date of Admission: 04/11/24 Date of Service: 04/11/24 Chief Complaint: Tired and weak HPI Narrative JIGNESH LOPEZ, is a 73 M with history of COPD on 2 L O2, chronic nonischemic cardiomyopathy with AICD and recovered EF but stage I diastolic dysfunction, anemia, small and non-small cell lung cancer status postchemotherapy and immunotherapy in remission, hyponatremia, BPH, psoriatic arthritis, GERD, hypothyroidism who presented to [facility] ED 04/11/2024 due to low hemoglobin. He was here beginning of February with COVID and ultimately was placed in [facility], he had been improving however a week ago he was feeling weaker and was diagnosed with a UTI, treated with antibiotics but has remained weak and generally unwell, was noted to have a low sodium and was undergoing workup and when his sodium was rechecked his hemoglobin was 6.4 and he was sent to the ED. In the ED hemoglobin 6.6, FOBT negative but given his weakness and fatigue/symptomatic anemia hospitalist contacted for admission. Patient evaluated with at bedside and report history as above, this past week he has been a little bit more short of breath, fatigued, generally unwell. Patient's thinks he completed his urinary tract infection treatment but is overall just been somewhat unwell this week. No new cough, no abdominal pain, no nausea or vomiting, no bleeding noted from anywhere. Patient. Complains of poor appetite/p.o. intake and weakness and fatigue primarily. No fevers, no headache or changes in vision. [facility] Medical History History of chronic CHF Chronic respiratory failure with hypoxia GERD (gastroesophageal reflux disease) Hypothyroidism Debility Lung cancer Anemia Arthritis Lesion of pelvic bone Pneumothorax after biopsy Secondary pulmonary arterial hypertension Nonischemic cardiomyopathy Severe left ventricular systolic dysfunction Atherosclerotic heart disease of [place] coronary artery without angina pectoris PVD (peripheral vascular disease) Stage 3 severe COPD by GOLD classification Hyperlipidemia CHF (congestive heart failure), NYHA class I Psoriatic arthritis Home Medications ?Medication ?Instructions ?Recorded ?Last Taken ?Type multivitamin 1 ea PO DAILY SUPPLEMENT 08/27/16 02/16/24 History omeprazole 40 mg capsule,delayed 40 mg PO DAILY GERD 12/01/18 02/16/24 History release [facility] 81 mg [facility] 02/15/24 History release (Adult Aspirin Regimen) hydroxychloroquine 200 mg tablet 200 mg PO DAILY ARTHRITIS 04/15/21 02/16/24 History Disability Placard #1 ea 08/02/21 Unknown Rx cetirizine 10 mg capsule (Zyrtec) 10 mg PO DAILY ALLERGIES 11/05/21 02/16/24 History triamcinolone acetonide 55 mcg 1 spray intranasal DAILY PRN 04/22/22 Unknown History nasal spray aerosol (Nasacort) ALLERGIES ascorbic acid (vitamin C) 1,000 mg 1 g PO DAILY SUPPLEMENT 10/21/23 02/16/24 History capsule atorvastatin 40 mg tablet 40 mg PO QHS CHOLESTEROL 10/21/23 02/15/24 History clobetasol 0.05 % topical cream 1 applic topical DAILY FEET 10/21/23 02/15/24 History triamcinolone acetonide 0.1 % 1 applic topical DAILY SKIN 10/21/23 02/15/24 History topical cream umeclidinium 62.5 mcg/actuation 1 inh inhalation DAILY COPD #3 ea 10/29/23 02/15/24 Rx blister powder for inhalation levothyroxine 100 mcg tablet 100 mcg PO DAILY THYROID 01/26/24 02/16/24 History albuterol sulfate 90 mcg/actuation 2 puff inhalation Q4H PRN 02/16/24 Unknown History aerosol inhaler SHORTNESS OF BREATH/WHEEZING fluticasone furoate 200 1 inh inhalation DAILY COPD 02/16/24 02/15/24 History mcg-vilanterol 25 mcg/dose inhalation powder (Breo Ellipta) magnesium oxide 400 mg (241.3 mg 400 mg PO BID SUPPLEMENT 02/16/24 02/16/24 History magnesium) tablet potassium chloride 20 mEq 20 meq PO DAILY SUPPLEMENT 02/16/24 02/16/24 History tablet,extended release(part/cryst) Eduardo bunch #1 ea 02/17/24 Unknown Rx acetaminophen 325 mg tablet 650 mg (2 x 325 mg) PO Q6H PRN PRN 02/17/24 Unknown Rx Pain 1-10 Or Fever>100.7 #0 tabs albuterol sulfate 2.5 mg/3 mL 2.5 mg (3 mL) inhalation Q2H PRN 02/17/24 Unknown Rx (0.083 %) solution for nebulization PRN SOB &/OR WHEEZING #0 mL ipratropium 0.5 mg-albuterol 3 mg 3 ml inhalation Q6HWA.RT #0 mL 02/17/24 Unknown Rx (2.5 mg base)/3 mL nebulization soln losartan 25 mg tablet 25 mg PO DAILY BLOOD PRESSURE #90 03/11/24 Unknown Rx tabs cholecalciferol (vitamin D3) 25 1,000 unit PO BID SUPPLEMENT 03/15/24 Unknown History mcg (1,000 unit) tablet furosemide 20 mg tablet 20 mg PO DAILY EDEMA 03/15/24 Unknown History sodium chloride 1,000 mg soluble 1,000 mg PO BID SUPPLEMENT 03/15/24 Unknown History tablet tamsulosin 0.4 mg capsule 0.4 mg PO DAILY 04/11/24 Unknown History Allergy/AdvReac Type Severity Reaction Status Date / Time No Known Allergies Allergy Verified 03/15/24 15:28 Family History Mother Heart disease Brother CVA (cerebral vascular accident) Father Cancer brain Grandmother Diabetes Surgical History History of appendectomy (~12/26/19) Implantable cardioverter-defibrillator (ICD) in situ (12/27/16) Social History (Updated 04/11/24 @ 20:04 by Lynda Aquino) household members: spouse and other housing: [place]way do you think of yourself as: straight/heterosexual Smoking Status: Former smoker how long ago did patient quit smokin, 1.5p/day second hand exposure: Yes alcohol intake: never substance use type: does not use caffeine: Yes Type: coffee Number of servings: 2 what type of physical activity do you participate in: walking frequency: 3-4 times per week ROS ROS Narrative General: Denies fever/chills HENT: Denies headache, denies stuffy nose, denies sore throat EYES: Denies changes in vision Resp: Denies any change in cough, has had some increased shortness of breath this past week Cardiac: Denies chest pain GI: Denies abdominal pain, denies changes in bowel, denies nausea/vomiting : Denies changes in urination Extremity: Denies swelling MSK: Generalized weakness Neuro: Denies any numbness/tingling Heme: Denies any bleeding or bruising Skin: Denies rashes but bruises easily Psychiatric: No complaints voiced Vital Signs Vital Signs Vital Signs: 04/11/24 15:04 04/11/24 15:09 04/11/24 17:11 Temperature 97.2 F L Temperature Source Temporal Pulse Rate 88 91 Respiratory Rate 18 19 H Respiratory Effort Short of Breath Respiratory Pattern Normal Blood Pressure 103/39 L 118/41 L Blood Pressure Mean 60 66 Pulse Ox 96 97 Oxygen Delivery Method Nasal Cannula Room Air Physical Exam Narrative General: Alert, oriented, no significant distress HEENT: Atraumatic, normocephalic Eyes: Anicteric, normal conjunctiva, extraocular movements grossly intact Neck: Supple Respiratory: Somewhat diminished bilaterally, normal respiratory effort Cardiovascular: Regular rate and rhythm GI: Soft, nontender, nondistended Extremities: No edema Musculoskeletal: Moving all extremities Neuro: No overt focal neurological deficits Skin: Scattered bruising Psych: Cooperative Results Lab / Micro Data 04/11/24 15:35 Labs: Laboratory Results - last 24 hr 04/11/24 15:35: WBC 6.5, RBC 2.15 L, Hgb 6.6 L, Hct 20.6 L, MCV 95.8 H, MCH 30.7, MCHC 32.0, RDW Std Deviation 49.0 H, RDW Coeff of Sydni 14.4, Plt Count 208, MPV 8.5, Immature Gran % (Auto) 0.800, Neut % (Auto) 68.3, Lymph % (Auto) 10.0 L , [place] % (Auto) 12.9 H, Eos % (Auto) 7.4 H, Baso % (Auto) 0.6, Absolute Neuts (auto) 4.4, Absolute Lymphs (auto) 0.65 L, Nucleated RBC % 0, Iron 29 L, TIBC 239 L, Iron Saturation 12.1 L, Ferritin 741 H, Folate 18.40 04/11/24 15:37: Blood Type O NEGATIVE, Antibody Screen NEGATIVE 04/11/24 15:59: PT 14.2, INR 1.1, APTT 42.1 H, Vitamin B12 764 Micro: Microbiology 04/11/24 16:05 Stool Stool Occult Blood (LILY) - Final Assessment & Plan Assessment/Plan (1) Anemia: QUALIFIERS: Anemia type: unspecified type Qualified Code(s): D 64.9 - Anemia, unspecified PLAN: Plan # Acute on chronic anemia of unclear etiology -Patient with baseline hemoglobin closer to 8-10 range -No active or acute blood loss -Retake count 2.88 with immature reticulocyte fraction 21.5, FOBT negative, iron low however TIBC also low and ferritin high, suspicious for mixed picture -FOBT negative with no evidence of ongoing blood loss -Spoke with patient's hematology oncology Dr., Dr. Murcia, and is recommended to transfuse -Once stabilized may need outpatient follow-up if no active bleeding identified and this is more hematologic in nature -Aspirin held, will likely be able to resume this if no obvious bleeding identified # Chronic hypoxic respiratory failure on home O2 in setting of COPD -Suspect some of the increased shortness of breath is due to anemia -Patient saturating well -No respiratory distress -No cough -Continue home inhalers -Transfuse as above #Hyponatremia -Sodium 130, has been low for roughly 1 week -Appears patient is on salt tabs outpatient, these were continued but will obtain serum osmolality and urine studies to help further differentiate cause of patient's hyponatremia -Recent TSH within normal limits -Does not appear fluid overloaded # Recent UTI -Grew strep mitis/oralis on 04/05, patient's believes he is finished antibiotics at home and do not see any on his med list -Repeating UA and urine culture given patient has remained weak and generally unwell though suspect his acute on chronic anemia more likely etiology # History of both small and non-small cell lung cancer status postchemotherapy with recent immunotherapy -Diagnosed with left upper lobe non-small cell lung cancer around 5 years ago and also on PET scan found to have a left iliac lesion that showed small cell cancer, underwent chemotherapy and then was on immunotherapy for several years which was only discontinued recently primarily due to flares of patient psoriatic arthritis -Patient's hematology/oncology doctor, Dr. Murcia, aware patient is hospitalized #chronic nonischemic cardiomyopathy with AICD and recovered EF but stage I diastolic dysfunction -Patient had recovered EF on echo in 2019 but stage I diastolic dysfunction -Does not appear overloaded -Monitor clinically -Given patient to receive blood will continue Lasix and potassium, can always consider dose of IV Lasix if any changes in breathing after blood counts however given it appears patient has recovered EF this may not be necessary -Daily weights, I's and O's # History of psoriatic arthritis -On hydroxychloroquine #Chronic BPH with obstruction -Continue home medications #GERD -Continue PPI #Hypothyroidism -Continue Synthroid #DVT ppx: SCDs Samra Kearney MD Charges/Coding Visit Charges Inpatient E&M: 16791 Init Hosp L2
[2024-04-11 18:17] LABS: Platelet Count 228 K/mm3 (150-450); RET-HE 30.7 pg (30-35); Reticulocyte Count 2.88 % (0.5-1.5)
[2024-04-11 18:30] LABS: LDH 237 U/L (87-241)
[2024-04-11 19:52] LABS: AST(SGOT) 29 U/L (15-37); Alanine Aminotransfer ALT/SGPT 30 U/L (16-61); Albumin, Serum 2.5 g/dL (3.2-5.0); Alkaline Phosphatase 53 U/L (45-117); Bilirubin, Direct 0.09 mg/dL (0.00-0.30); Globulin 3.4 g/dL (2.2-4.2); Protein, Total 5.9 g/dL (6.4-8.2)
[2024-04-11] MEDS: Sodium Chloride 1 GM Tablet PO (21:56)
[2024-04-11] MEDS: Atorvastatin Calcium 40 MG Tablet PO (21:56)
[2024-04-11 21:59] LABS: Osmolality, Serum 269 mOsm/KG (280-301)
[2024-04-11 21:59] LABS: Mucous, Urine 0 SEEN /hpf (<or=2+); Squamous Epithelial Cells - UA 0 SEEN /hpf (0-5)
[2024-04-11 22:03] LABS: Color, Urine Yellow (Yellow); Glucose, Dipstick Normal (Normal); Ketone-Dipstick Negative (Negative); Leukocyte Esterase-Dipstick Negative /ul (Negative); Nitrite-Dipstick Negative (Negative); Occult Blood-Urine Negative /ul (Negative); Protein-Dipstick Negative (Negative); Urine Bilirubin Dipstick Negative (Negative); Urine Clarity Clear (Clear); Urine Urobilinogen Normal (Normal)
[2024-04-11 22:04] LABS: Urine Sodium 92 mmol/L (Not Establ.)
[2024-04-11 22:15] LABS: Bacteria 1+ /hpf (None Seen); Red Blood Cells-Urine 0-5 SEEN /hpf (0-5); White Blood Cells 0-5 SEEN /hpf (0-5)
[2024-04-11 22:25] LABS: Urea Nitrogen, Urine 346 mg/dL (NO RANGE EST.)
[2024-04-11 22:36] LABS: Osmolality, Urine 416 mOsm/KG
[2024-04-11 22:43] LABS: Urine Chloride 118 mmol/L (Not Establ.)
[2024-04-12] VITALS (9 sets, daily range): BP systolic 100–127; BP diastolic 40–67; PULSE 76–92; RESP 16–20; TEMP 35.9–36.7; O2SAT 91–100; BMI 22.1; BMI 22.4
[2024-04-12] MEDS: Levothyroxine 100 MCG Tablet PO (04:46)
[2024-04-12 07:24] LABS: Absolute Lymphocyte Count 0.74 X10^3/uL (0.83-4.51); Absolute Neutrophil Count 4.5 X10^3/uL (2.0-7.7); Basophil# 0.05 X10^3/uL; Basophil% 0.7 % (0-1); Eosinophil# 0.54 X10^3/uL; Eosinophils% 8.1 % (0-5); Hematocrit 29.2 % (40-54); Hemoglobin 9.7 g/dL (13.0-16.5); Lymphocyte # 0.74 X10^3/ul (0.83-4.51); Lymphocyte % 11.1 % (19-41); Mean Corp Hgb Conc 33.2 g/dL (32-36); Mean Corpuscular Hgb 30.3 pg (27.0-32.0); Mean Corpuscular Volume 91.3 fL (80-94); Mean Platelet Vol. 8.4 fl (6.2-12.0); NRBC Flagged by Analyzer 0 % (0-5); Neutrophil % 67.2 % (47-70); Platelet Count 200 K/mm3 (150-450); RBC Distribution Width CV 14.5 % (11.6-14.6); RBC Distribution Width SD 48.3 fl (35.1-43.9); White Blood Count 6.7 K/mm3 (4.4-11.0)
[2024-04-12] MEDS: Budesonide Respules 0.5 MG/2 ML AMPUL.NEB. INHALATION (07:56)
[2024-04-12] MEDS: Ipratropium/Albuterol Sulfate 3 ML AMPUL.NEB INHALATION ×2 (07:56→20:28)
[2024-04-12 08:18] LABS: International Normalized Ratio 1.1; Prothrombin Time (Protime)PT. 13.7 SECONDS (11.7-14.9)
[2024-04-12] MEDS: Hydroxychloroquine 200 MG Tablet PO (08:59)
[2024-04-12] MEDS: Sodium Chloride 1 GM Tablet PO ×2 (08:59→21:25)
[2024-04-12] MEDS: 0.9% Saline Lock 10 ML Syringe IV (08:59)
[2024-04-12] MEDS: Tamsulosin HCl 0.4 MG Capsule PO (08:59)
[2024-04-12] MEDS: Potassium Chloride Oral Tablet 20 MEQ PO (08:59)
[2024-04-12] MEDS: Loratadine 10 MG Tablet PO (08:59)
[2024-04-12] MEDS: Pantoprazole Sodium 40 MG Tablet PO (08:59)
[2024-04-12 11:37] LABS: ALB/GLOB Ratio 0.7 RATIO (0.9-2.4); AST(SGOT) 38 U/L (15-37); Alanine Aminotransfer ALT/SGPT 32 U/L (16-61); Albumin, Serum 2.6 g/dL (3.2-5.0); Alkaline Phosphatase 57 U/L (45-117); Anion Gap 7 (5-15); BUN 12 mg/dL (7-18); BUN/Creat Ratio 14.4 RATIO (10-20); Calcium,Total 8.9 mg/dL (8.5-10.1); Chloride 94 mmol/L (98-107); Creatinine, Serum 0.83 mg/dL (0.70-1.30); EST Glomerular Filtration Rate 96 mL/min (>60); Est Glom Filt Rate - Afr Amer 116 mL/min (>60); Estimated Creatinine Clearance 67.49 ml/min; Globulin 3.6 g/dL (2.2-4.2); Glucose 91 mg/dL (74-106); Magnesium 1.9 mg/dL (1.6-2.6); Potassium 4.6 mmol/L (3.5-5.1); Protein, Total 6.2 g/dL (6.4-8.2); Sodium Level 130 mmol/L (136-145)
[2024-04-12] MEDS: Sodium Ferric Gluconat/Sucrose 250 MG in 0.9% Normal Saline (250mL Bag) 250 ML 135 MG IV (11:41)
[2024-04-12] MEDS: Furosemide 20 MG Tablet PO (11:41)
--- NOTE | 2024-04-12 12:09 | CASEMGMT ---
Social Work SW spoke w/pt and in room in regard to discharge plan. They confirm plan is to return to [facility] at discharge. They were working on getting pt home and then he got sick again. is hoping that perhaps pt may qualify under Medicare for SNF as she has been private paying. Either way however, the plan will be to return to [facility], SNF list declined at this time. sharmila Downs/c planning specialist will send updates to [facility]. SW will continue to follow. MAK De La Torre
--- NOTE | 2024-04-12 12:17 | CASEMGMT ---
Discharge Planning Updates sent to [facility] via [employer]. Yareli Aleman DC Planning Asst.
--- NOTE | 2024-04-12 13:41 | PCM.CONS.R ---
Assessment & Plan Assessment/Plan (1) Hyponatremia: PLAN: Plan This is a pleasant 73-year-old male who was admitted for acute anemia. Workup for anemia in progress. Patient has history of COPD on O2 2 L, chronic nonischemic cardiomyopathy with AICD and recovered EF (last known EF 65%), small and non-small cell lung cancer status postchemotherapy and immunotherapy in remission, BPH, psoriatic arthritis, hypothyroidism, GERD. Nephrology consulted for hyponatremia. Patient has preserved kidney function with baseline serum creatinine ranging around 0.8 to 1 mg/dL. 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 Sodium rita 116 and by time of discharge to home sodium improved to normal, around 140, patient was encouraged to maintain on fluid restriction. After that episode of hyponatremia in 2018 sodium trends have been normal until just a few days ago. On April 05 sodium 130. April 06 sodium 128. Yesterday in the ER sodium 130 and today his sodium is 130. Serum Osmo slightly low 269, urine Osmo 416, urine sodium 92. Last PET scan December 2023 read as there is current and continued absence of defined viable neoplastic disease. TSH normal in February 2024. Patient has been on sodium chloride 1 g twice daily and furosemide 10 mg daily. [facility], he reports he was encouraged to drink Gatorade daily. Patient denies any nausea or vomiting. Acute, euvolemic hyponatremia possibly from component of SIADH. For now we will stop furosemide and continue salt tablets and monitor response. Volume status appears near euvolemic. Once off furosemide will repeat urine studies. There is no acute indication for frequent serum sodium checks. Labs ordered for morning. Encouraged patient to try to increase solute/protein intake. Acute on chronic Anemia workup underway. Further orders forthcoming as hospitalization evolves, thank you for allowing us participate in the care of Mr. Ramires. HPI Consult Data Date of Consult: 04/12/24 HPI Narrative HPI Narrative: JIGNESH RAMIRES, is a 73 M who presented to the hospital from SNF yesterday for evaluation of feeling weak and tired. Patient was found to have a hemoglobin of 6.4. Fecal occult blood test was negative. Patient was admitted for further evaluation and treatment. Patient has history of COPD on O2 2 L, chronic nonischemic cardiomyopathy with AICD and recovered EF, small and nonsmall cell lung cancer status postchemotherapy and immunotherapy in remission, BPH, psoriatic arthritis, hypothyroidism, GERD. Nephrology consulted for hyponatremia. Patient has preserved kidney function with baseline serum creatinine ranging around 0.8 to 1 mg/dL. 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 Sodium rita 116 and by time of discharge to home sodium improved to normal, around 140, patient was encouraged to maintain on fluid restriction. After that episode of hyponatremia in 2018 sodium trends have been normal until just a few days ago. On April 05 sodium 130. April 06 sodium 128. Yesterday in the ER sodium 130 and today his sodium is 130. Serum Osmo slightly low 269, urine Osmo 416, urine sodium 92. Last PET scan December 2023 read as there is current and continued absence of defined viable neoplastic disease. TSH normal in February 2024. Patient has been on sodium chloride 1 g daily and furosemide 10 mg daily. [facility] Medical History History of chronic CHF Chronic respiratory failure with hypoxia GERD (gastroesophageal reflux disease) Hypothyroidism Debility Lung cancer Anemia Arthritis Lesion of pelvic bone Pneumothorax after biopsy Secondary pulmonary arterial hypertension Nonischemic cardiomyopathy Severe left ventricular systolic dysfunction Atherosclerotic heart disease of [place] coronary artery without angina pectoris PVD (peripheral vascular disease) Stage 3 severe COPD by GOLD classification Hyperlipidemia CHF (congestive heart failure), NYHA class I Psoriatic arthritis Home Medications ?Medication ?Instructions ?Recorded ?Last Taken ?Type multivitamin 1 ea PO DAILY SUPPLEMENT 08/27/16 02/16/24 History omeprazole 40 mg capsule,delayed 40 mg PO DAILY GERD 12/01/18 02/16/24 History release [facility] 81 mg [facility] 02/[facility]24 History release (Adult Aspirin Regimen) hydroxychloroquine 200 mg tablet 200 mg PO DAILY ARTHRITIS 04/15/21 02/16/24 History Disability Placard #1 ea 08/02/21 Unknown Rx cetirizine 10 mg capsule (Zyrtec) 10 mg PO DAILY ALLERGIES 11/05/21 02/16/24 History triamcinolone acetonide 55 mcg 1 spray intranasal DAILY PRN 04/22/22 Unknown History nasal spray aerosol (Nasacort) ALLERGIES ascorbic acid (vitamin C) 1,000 mg 1 g PO DAILY SUPPLEMENT 10/21/23 02/16/24 History capsule atorvastatin 40 mg tablet 40 mg PO QHS CHOLESTEROL 10/21/23 02/15/24 History clobetasol 0.05 % topical cream 1 applic topical DAILY FEET 10/21/23 02/15/24 History triamcinolone acetonide 0.1 % 1 applic topical DAILY SKIN 10/21/23 02/15/24 History topical cream umeclidinium 62.5 mcg/actuation 1 inh inhalation DAILY COPD #3 ea 10/29/23 02/15/24 Rx blister powder for inhalation levothyroxine 100 mcg tablet 100 mcg PO DAILY THYROID 01/26/24 02/16/24 History albuterol sulfate 90 mcg/actuation 2 puff inhalation Q4H PRN 02/16/24 Unknown History aerosol inhaler SHORTNESS OF BREATH/WHEEZING fluticasone furoate 200 1 inh inhalation DAILY COPD 02/16/24 02/15/24 History mcg-vilanterol 25 mcg/dose inhalation powder (Breo Ellipta) magnesium oxide 400 mg (241.3 mg 400 mg PO BID SUPPLEMENT 02/16/24 02/16/24 History magnesium) tablet potassium chloride 20 mEq 20 meq PO DAILY SUPPLEMENT 02/16/24 02/16/24 History tablet,extended release(part/cryst) Sudhakarpriya pelletier walker #1 ea 02/17/24 Unknown Rx acetaminophen 325 mg tablet 650 mg (2 x 325 mg) PO Q6H PRN PRN 02/17/24 Unknown Rx Pain 1-10 Or Fever>100.7 #0 tabs albuterol sulfate 2.5 mg/3 mL 2.5 mg (3 mL) inhalation Q2H PRN 02/17/24 Unknown Rx (0.083 %) solution for nebulization PRN SOB &/OR WHEEZING #0 mL ipratropium 0.5 mg-albuterol 3 mg 3 ml inhalation Q6HWA.RT #0 mL 02/17/24 Unknown Rx (2.5 mg base)/3 mL nebulization soln losartan 25 mg tablet 25 mg PO DAILY BLOOD PRESSURE #90 03/11/24 Unknown Rx tabs cholecalciferol (vitamin D3) 25 1,000 unit PO BID SUPPLEMENT 03/15/24 Unknown History mcg (1,000 unit) tablet furosemide 20 mg tablet 20 mg PO DAILY EDEMA 03/15/24 Unknown History sodium chloride 1,000 mg soluble 1,000 mg PO BID SUPPLEMENT 03/15/24 Unknown History tablet tamsulosin 0.4 mg capsule 0.4 mg PO DAILY 04/11/24 Unknown History Allergy/AdvReac Type Severity Reaction Status Date / Time No Known Allergies Allergy Verified 03/15/24 15:28 Family History Mother Heart disease Brother CVA (cerebral vascular accident) Father Cancer brain Grandmother Diabetes Surgical History History of appendectomy (~12/26/19) Implantable cardioverter-defibrillator (ICD) in situ (12/27/16) Social History (Updated 04/11/24 @ 20:04 by Lynda Aquino) household members: spouse and other housing[facility] do you think of yourself as: straight/heterosexual Smoking Status: Former smoker how long ago did patient quit smokin, 1.5p/day second hand exposure: Yes alcohol intake: never substance use type: does not use caffeine: Yes Type: coffee Number of servings: 2 what type of physical activity do you participate in: walking frequency: 3-4 times per week ROS ROS Narrative as in HPI and PMH Physical Exam Narrative Alert and oriented, no apparent distress S1, S2, RRR Lungs clear anteriorly and posteriorly. Abdomen soft, rounded, nontender No edema Lab / Micro Data 04/12/24 06:54 04/12/24 06:54 Labs: Laboratory Results - last 24 hr 04/11/24 15:35: WBC 6.5, RBC 2.15 L, Hgb 6.6 L, Hct 20.6 L, MCV 95.8 H, MCH 30.7, MCHC 32.0, RDW Std Deviation 49.0 H, RDW Coeff of Sydni 14.4, Plt Count 208, MPV 8.5, Immature Gran % (Auto) 0.800, Neut % (Auto) 68.3, Lymph % (Auto) 10.0 L, [place] % (Auto) 12.9 H, Eos % (Auto) 7.4 H, Baso % (Auto) 0.6, Absolute Neuts (auto) 4.4, Absolute Lymphs (auto) 0.65 L, Nucleated RBC % 0, Retic Count 2.88 H, Immature Retic Fraction 21.50 H, Retic Hgb Equivalent 30.7, Iron 29 L, TIBC 239 L, Iron Saturation 12.1 L, Ferritin 741 H, Total Bilirubin 0.20, Direct Bilirubin 0.09, AST 29, ALT 30, Alkaline Phosphatase 53, Lactate Dehydrogenase 237, Total Protein 5.9 L, Albumin 2.5 L, Globulin 3.4, Folate 18.40 04/11/24 15:37: Blood Type O NEGATIVE, Antibody Screen NEGATIVE, Crossmatch See Detail 04/11/24 15:59: PT 14.2, INR 1.1, APTT 42.1 H, Serum Osmolality 269 L, Vitamin B12 764 04/11/24 20:26: Urine Color Yellow, Urine Clarity Clear, Urine pH 7.0, Ur Specific [place] 1.010, Urine Protein Negative, Urine Glucose (UA) Normal, Urine Ketones Negative, Urine Occult Blood Negative, Urine Nitrite Negative, Urine Bilirubin Negative, Urine Urobilinogen Normal, Ur Leukocyte Esterase Negative, Urine RBC 0-5 SEEN, Urine WBC 0-5 SEEN, Ur Squamous Epith Cells 0 SEEN, Urine Bacteria 1+, Urine Mucus 0 SEEN, Urine Osmolality 416, Ur Random Sodium 92, Urine Potassium 52.0, Urine Chloride 118, Urine Urea Nitrogen 346 04/12/24 06:54: WBC 6.7, RBC 3.20 L, Hgb 9.7 L, Hct 29.2 L, MCV 91.3, MCH 30.3, MCHC 33.2, RDW Std Deviation 48.3 H, RDW Coeff of Sydni 14.5, Plt Count 200, MPV 8.4, Immature Gran % (Auto) 0.900, Neut % (Auto) 67.2, Lymph % (Auto) 11.1 L, [place] % (Auto) 12.0 H, Eos % (Auto) 8.1 H, Baso % (Auto) 0.7, Absolute Neuts (auto) 4.5, Absolute Lymphs (auto) 0.74 L, Nucleated RBC % 0, PT 13.7, INR 1.1, Sodium 130 L, Potassium 4.6, Chloride 94 L, Carbon Dioxide 29.0, Anion Gap 7, BUN 12, Creatinine 0.83, Estim Creat Clear Calc 67.49, Est GFR (MDRD) Af Amer 116, Est GFR (MDRD) Non-Af 96, BUN/Creatinine Ratio 14.4, Glucose 91, Calcium 8.9, Magnesium 1.9, Total Bilirubin 1.00, AST 38 H, ALT 32, Alkaline Phosphatase 57, Total Protein 6.2 L, Albumin 2.6 L, Globulin 3.6, Albumin/Globulin Ratio 0.7 L Micro: Microbiology 04/11/24 16:05 Stool Stool Occult Blood (LILY) - Final
--- NOTE | 2024-04-12 18:00 | PCM.PN.HOSP ---
Reason for Visit Reason for Visit: Diagnoses Anemia, unspecified (04/11/24) Subjective Subjective Patient was seen and examined today, I talked to his oncologist and discussed his medical care with him, he advised having the patient undergo endoscopy to rule out any acute bleed. I talked to the patient and his about undergoing a colonoscopy and an EGD and they were okay with this. I will prep him tomorrow for colonoscopy on and have gastroenterology see the patient. I had nephrology see the patient today regarding his sodium and they are going to stop his Lasix and monitor the patient. Patient's hemoglobin today was 9.7. Objective Data Objective Data Vital Signs: Vital Signs Temp Pulse Resp BP Pulse Ox O2 Del Method O2 Flow Rate 97.0 F L 89 18 100/67 96 Nasal Cannula 2 04/12/24 14:43 04/12/24 14:43 04/12/24 14:43 04/12/24 14:43 04/12/24 14:43 04/12/24 14:43 04/12/24 14:43 Oxygen Flow Rate (L/min) 2 Oxygen Delivery Method Nasal Cannula Weight: 60.2 kg Body Mass Index (BMI) 22.1 Intake & Output: Intake and Output for Last 24 Hours 04/10/24 04/11/24 04/12/24 23:59 23:59 23:59 Intake Total 1120 / 1120 Output Total 300 / 300 Balance 820 / 820 Lab / Micro Data 04/12/24 06:54 04/12/24 06:54 Labs: Laboratory Results - last 24 hr 04/11/24 15:35: Retic Count 2.88 H, Immature Retic Fraction 21.50 H, Retic Hgb Equivalent 30.7, Total Bilirubin 0.20, Direct Bilirubin 0.09, AST 29, ALT 30, Alkaline Phosphatase 53, Lactate Dehydrogenase 237, Total Protein 5.9 L, Albumin 2.5 L, Globulin 3.4 04/11/24 15:37: Crossmatch See Detail 04/11/24 15:59: Serum Osmolality 269 L 04/11/24 20:26: Urine Color Yellow, Urine Clarity Clear, Urine pH 7.0, Ur Specific [place] 1.010, Urine Protein Negative, Urine Glucose (UA) Normal, Urine Ketones Negative, Urine Occult Blood Negative, Urine Nitrite Negative, Urine Bilirubin Negative, Urine Urobilinogen Normal, Ur Leukocyte Esterase Negative, Urine RBC 0-5 SEEN, Urine WBC 0-5 SEEN, Ur Squamous Epith Cells 0 SEEN, Urine Bacteria 1+, Urine Mucus 0 SEEN, Urine Osmolality 416, Ur Random Sodium 92, Urine Potassium 52.0, Urine Chloride 118, Urine Urea Nitrogen 346 04/12/24 06:54: WBC 6.7, RBC 3.20 L, Hgb 9.7 L, Hct 29.2 L, MCV 91.3, MCH 30.3, MCHC 33.2, RDW Std Deviation 48.3 H, RDW Coeff of Sydni 14.5, Plt Count 200, MPV 8.4, Immature Gran % (Auto) 0.900, Neut % (Auto) 67.2, Lymph % (Auto) 11.1 L, [place] % (Auto) 12.0 H, Eos % (Auto) 8.1 H, Baso % (Auto) 0.7, Absolute Neuts (auto) 4.5, Absolute Lymphs (auto) 0.74 L, Nucleated RBC % 0, PT 13.7, INR 1.1, Sodium 130 L, Potassium 4.6, Chloride 94 L, Carbon Dioxide 29.0, Anion Gap 7, BUN 12, Creatinine 0.83, Estim Creat Clear Calc 67.49, Est GFR (MDRD) Af Amer 116, Est GFR (MDRD) Non-Af 96, BUN/Creatinine Ratio 14.4, Glucose 91, Calcium 8.9, Magnesium 1.9, Total Bilirubin 1.00, AST 38 H, ALT 32, Alkaline Phosphatase 57, Total Protein 6.2 L, Albumin 2.6 L, Globulin 3.6, Albumin/Globulin Ratio 0.7 L Micro: Microbiology 04/11/24 16:05 Stool Stool Occult Blood (LILY) - Final Physical Exam Const alert, oriented x3 and no apparent distress Constitutional Narrative: Patient appears frail and tired General Appearance: cooperative, well kempt and well developed Orientation / Consciousness: awake, oriented to person, oriented to place and oriented to time HEENT normocephalic, head/scalp atraumatic and moist oral mucous membranes Eyes PERRL, EOMs intact bilaterally and conjunctivae normal Neck supple, no JVD, thyroid normal and no carotid bruits General: trachea midline Resp normal respiratory effort, no retractions, no use of accessory muscles and clear to auscultation bilaterally Auscultation: Negative for rales, rhonchi or wheezes Cardio regular rate, regular rhythm, S1 normal heart sound, S2 normal heart sound, no murmurs, no rub and no gallops GI normal to inspection, nondistended, normoactive bowel sounds, soft to palpation, non-tender and non-distended Extremity no clubbing, cyanosis or edema Skin no rashes or lesions noted General Skin Exam: no breakdown Neuro oriented x3, CN's II-XII intact bilaterally, no focal motor deficits and no sensory deficits noted Sensorium / Orientation: awake and alert Speech: speech normal Psych affect normal Assessment & Plan Assessment/Plan (1) Symptomatic anemia: PLAN: Plan 1. Acute anemia-patient will undergo endoscopy both upper and lower endoscopy to exclude GI blood loss, patient's Hemoccult in the ER was negative for blood and according to the , his stool has been checked in the [facility] for blood and they have not detected any. #2 chronic iron deficiency anemia-patient will be given IV iron, again he will undergo workup for GI blood loss. #3 chronic hypoxic respiratory failure-patient is currently on nasal cannula oxygen #4 debility secondary to multiple medical problems-patient is being seen by PT and OT, he will need to return to a care home facility after discharge from the hospital here. #5 hypothyroidism-patient is on Synthroid #6 nonischemic cardiomyopathy-patient's last echocardiogram showed an EF of 65% #7 hyponatremia-etiology unclear at this point, nephrology is participating in his care, his diuretics were stopped and he will be observed. #8 adrenal insufficiency-patient is currently on hydrocortisone 5 mg 1 every morning and a half every afternoon. Total clinical time spent by myself addressing the patient's medical issues, reviewing his data, and collaborating with patient's care team: 50 minutes Charges/Coding Visit Charges Inpatient E&M: 228[address] [facility] Hosp L3
[2024-04-12] MEDS: Acetaminophen 325 MG Tablet 650 MG PO (21:24)
[2024-04-12] MEDS: Hydrocortisone 10 MG Tablet 5 MG PO (21:24)
[2024-04-12] MEDS: Atorvastatin Calcium 40 MG Tablet PO (21:25)
[2024-04-13] VITALS (8 sets, daily range): BP systolic 107–135; BP diastolic 58–81; PULSE 83–87; RESP 16–18; TEMP 36.2–36.6; O2SAT 95–100; BMI 22.0
[2024-04-13 06:42] LABS: Absolute Neutrophil Count 4.5 X10^3/uL (2.0-7.7); Basophil# 0.06 X10^3/uL; Basophil% 0.9 % (0-1); Eosinophil# 0.45 X10^3/uL; Eosinophils% 6.8 % (0-5); Hematocrit 30.2 % (40-54); Hemoglobin 9.8 g/dL (13.0-16.5); Lymphocyte % 10.6 % (19-41); Mean Corp Hgb Conc 32.5 g/dL (32-36); Mean Corpuscular Hgb 30.2 pg (27.0-32.0); Mean Corpuscular Volume 93.2 fL (80-94); Mean Platelet Vol. 8.4 fl (6.2-12.0); Monocyte# 0.78 X10^3/uL; Monocyte% 11.8 % (0-10); NRBC Flagged by Analyzer 0 % (0-5); Neutrophil # 4.53 X10^3/uL (2.7-7.7); Neutrophil % 68.8 % (47-70); Platelet Count 192 K/mm3 (150-450); RBC Distribution Width CV 14.3 % (11.6-14.6); RBC Distribution Width SD 48.5 fl (35.1-43.9); Red Blood Count 3.24 M/mm3 (4.6-6.2); White Blood Count 6.6 K/mm3 (4.4-11.0)
[2024-04-13] MEDS: Levothyroxine 100 MCG Tablet PO (06:47)
[2024-04-13 07:03] LABS: Anion Gap 4 (5-15); BUN 14 mg/dL (7-18); BUN/Creat Ratio 18.8 RATIO (10-20); Calcium,Total 9.3 mg/dL (8.5-10.1); Chloride 95 mmol/L (98-107); Creatinine, Serum 0.74 mg/dL (0.70-1.30); EST Glomerular Filtration Rate 110 mL/min (>60); Est Glom Filt Rate - Afr Amer 133 mL/min (>60); Estimated Creatinine Clearance 69.91 ml/min; Glucose 95 mg/dL (74-106); Potassium 4.7 mmol/L (3.5-5.1); Sodium Level 130 mmol/L (136-145)
[2024-04-13] MEDS: Ipratropium/Albuterol Sulfate 3 ML AMPUL.NEB INHALATION ×3 (07:06→19:55)
[2024-04-13] MEDS: Electrolyte Solution/Peg's 4000 ML 2000 ML PO ×2 (09:05→16:45)
[2024-04-13] MEDS: Loratadine 10 MG Tablet PO (09:06)
[2024-04-13] MEDS: Pantoprazole Sodium 40 MG Tablet PO (09:06)
[2024-04-13] MEDS: Hydroxychloroquine 200 MG Tablet PO (09:06)
[2024-04-13] MEDS: Sodium Chloride 1 GM Tablet PO ×2 (09:06→20:17)
[2024-04-13] MEDS: Tamsulosin HCl 0.4 MG Capsule PO (09:08)
--- NOTE | 2024-04-13 09:25 | CASEMGMT ---
SW spoke with patient's Shama per her request. Shama said she and patient would like patient to go to a different nursing facility at discharge. They asked that a referral be made to [facility]. SW let them know SW will make a referral and get back to them when SW gets an answer. MITZY made a referral to [facility] Arianne CONNORS
--- NOTE | 2024-04-13 10:00 | CASEMGMT ---
TCU accepted patient. SW notified patient and his . Plan: d/c to [facility] when medically ready. Arianne CONNORS
--- NOTE | 2024-04-13 10:10 | CASEMGMT ---
Discharge Planning [facility] updated that patient will not be returning. Yareli Aleman DC Planning Asst.
[2024-04-13 14:09] LABS: Haptoglobin 191 mg/dL (34-355)
--- NOTE | 2024-04-13 18:36 | PCM.PN.HOSP ---
Reason for Visit Reason for Visit: Diagnoses Anemia, unspecified (04/11/24) Subjective Subjective Patient was seen and examined today, his hemoglobin was stable this morning, he is drinking a prep for his colonoscopy tomorrow, patient will also have an EGD. Objective Data Objective Data Vital Signs: Vital Signs Temp Pulse Resp BP Pulse Ox O2 Del Method O2 Flow Rate 97.6 F L 83 18 129/81 H 100 Nasal Cannula 4 04/13/24 15:00 04/13/24 15:00 04/13/24 15:00 04/13/24 15:00 04/13/24 15:00 04/13/24 15:00 04/13/24 15:00 Oxygen Flow Rate (L/min) 4 Oxygen Delivery Method Nasal Cannula Weight: 60.1 kg Body Mass Index (BMI) 22.0 Intake & Output: Intake and Output for Last 24 Hours 04/11/24 04/12/24 04/13/24 23:59 23:59 23:59 Intake Total 1120 / 1170 1150 / 1150 Output Total 300 / 400 100 / 100 Balance 820 / 770 1050 / 1050 Lab / Micro Data 04/13/24 06:15 04/13/24 06:15 Labs: Laboratory Results - last 24 hr 04/11/24 15:59: Haptoglobin 191 04/13/24 06:15: WBC 6.6, RBC 3.24 L, Hgb 9.8 L, Hct 30.2 L, MCV 93.2, MCH 30.2, MCHC 32.5, RDW Std Deviation 48.5 H, RDW Coeff of Sydni 14.3, Plt Count 192, MPV 8.4, Immature Gran % (Auto) 1.100 H, Neut % (Auto) 68.8, Lymph % (Auto) 10.6 L, [place] % (Auto) 11.8 H, Eos % (Auto) 6.8 H, Baso % (Auto) 0.9, Absolute Neuts (auto) 4.5, Absolute Lymphs (auto) 0.70 L, Nucleated RBC % 0, Sodium 130 L, Potassium 4.7, Chloride 95 L, Carbon Dioxide 31.0, Anion Gap 4 L, BUN 14, Creatinine 0.74, Estim Creat Clear Calc 69.91, Est GFR (MDRD) Af Amer 133, Est GFR (MDRD) Non-Af 110, BUN/Creatinine Ratio 18.8, Glucose 95, Calcium 9.3 Micro: Microbiology 04/11/24 20:26 Urine, Clean Catch Urine Culture - Preliminary Culture exhibits no growth. 04/11/24 16:05 Stool Stool Occult Blood (LILY) - Final Physical Exam Narrative alert, oriented x3 and no apparent distress Constitutional Narrative: Patient appears frail and tired General Appearance: cooperative, well kempt and well developed Orientation / Consciousness: awake, oriented to person, oriented to place and oriented to time HEENT normocephalic, head/scalp atraumatic and moist oral mucous membranes Eyes PERRL, EOMs intact bilaterally and conjunctivae normal Neck supple, no JVD, thyroid normal and no carotid bruits General: trachea midline Resp normal respiratory effort, no retractions, no use of accessory muscles and clear to auscultation bilaterally Auscultation: Negative for rales, rhonchi or wheezes Cardio regular rate, regular rhythm, S1 normal heart sound, S2 normal heart sound, no murmurs, no rub and no gallops GI normal to inspection, nondistended, normoactive bowel sounds, soft to palpation, non-tender and non-distended Extremity no clubbing, cyanosis or edema Skin no rashes or lesions noted General Skin Exam: no breakdown Neuro oriented x3, CN's II-XII intact bilaterally, no focal motor deficits and no sensory deficits noted Sensorium / Orientation: awake and alert Speech: speech normal Psych affect normal Assessment & Plan Assessment/Plan (1) Anemia: QUALIFIERS: Anemia type: unspecified type Qualified Code(s): D64.9 - Anemia, unspecified (2) Symptomatic anemia: PLAN: Plan 1. Acute anemia-patient will undergo endoscopy both upper and lower endoscopy to exclude GI blood loss, patient's Hemoccult in the ER was negative for blood and according to the , his stool has been checked in the senior care for blood and they have not detected any. Patient will undergo endoscopy tomorrow #2 chronic iron deficiency anemia-patient will be given IV iron, again he will undergo workup for GI blood loss. #3 chronic hypoxic respiratory failure-patient is currently on nasal cannula oxygen #4 debility secondary to multiple medical problems-patient is being seen by PT and OT, he will need to return to a senior living facility after discharge from the hospital here. #5 hypothyroidism-patient is on Synthroid #6 nonischemic cardiomyopathy-patient's last echocardiogram showed an EF of 65% #7 hyponatremia-etiology unclear at this point, nephrology is participating in his care, his diuretics were stopped and he will be observed. Patient's sodium again today was 130 According to nursing, patient states that he does not take hydrocortisone any longer, this was discontinued Total clinical time spent by myself addressing the patient's medical issues, reviewing his data, and collaborating with patient's care team: 35 minutes Charges/Coding Visit Charges Inpatient E&M: 63790 Subs Hosp L2
[2024-04-13] MEDS: Atorvastatin Calcium 40 MG Tablet PO (20:17)
--- NOTE | 2024-04-13 23:22 | CPS ---
pt felt not enough air thru hospitals machine-adjusted settings but pt did not like-was put back on 3 l/m via nc and was ok to sleep with that -nurse aware
[2024-04-14] VITALS (15 sets, daily range): BP systolic 87–123; BP diastolic 37–82; PULSE 82–87; RESP 16–19; TEMP 36.1–36.6; O2SAT 91–97; BMI 22.1
[2024-04-14] MEDS: 0.9% Saline Lock 10 ML Syringe IV (03:36)
--- NOTE | 2024-04-14 05:55 | EKG12_ITS ---
Test Reason : PRE-OP Blood Pressure : / mmHG Vent. Rate : 090 BPM Atrial Rate : 090 BPM P-R Int : 272 ms QRS Dur : 124 ms QT Int : 392 ms P-R-T Axes : 000 005 050 degrees QTc Int : 479 ms Sinus rhythm with 1st degree A-V block with Premature atrial complexes Right bundle branch block Septal infarct , age undetermined Abnormal ECG BASELINE ARTIFACT Confirmed by Hany Kennedy ([id number]), visual effects editor OSILE TRAN ([id number]) on 04/15/2024 6:35:08 AM Referred By: Confirmed By:Hany Kennedy
[2024-04-14 06:38] LABS: Absolute Lymphocyte Count 0.48 X10^3/uL (0.83-4.51); Absolute Neutrophil Count 5.9 X10^3/uL (2.0-7.7); Basophil# 0.05 X10^3/uL; Basophil% 0.6 % (0-1); Eosinophil# 0.56 X10^3/uL; Hematocrit 28.4 % (40-54); Hemoglobin 9.4 g/dL (13.0-16.5); Lymphocyte # 0.48 X10^3/ul (0.83-4.51); Mean Corp Hgb Conc 33.1 g/dL (32-36); Mean Corpuscular Hgb 30.8 pg (27.0-32.0); Mean Corpuscular Volume 93.1 fL (80-94); Monocyte% 11.3 % (0-10); NRBC Flagged by Analyzer 0 % (0-5); Neutrophil # 5.92 X10^3/uL (2.7-7.7); Neutrophil % 74.2 % (47-70); POSITIVE COUNT YES; POSITIVE DIFFERENTIAL YES; Platelet Count 179 K/mm3 (150-450); RBC Distribution Width CV 14.1 % (11.6-14.6); RBC Distribution Width SD 47.6 fl (35.1-43.9); Red Blood Count 3.05 M/mm3 (4.6-6.2)
[2024-04-14 06:48] LABS: Differential Indicated SCAN CRITERIA MET
[2024-04-14 06:53] LABS: International Normalized Ratio 1.1; Prothrombin Time (Protime)PT. 13.8 SECONDS (11.7-14.9)
[2024-04-14 07:46] LABS: Anion Gap 9 (5-15); BUN 10 mg/dL (7-18); BUN/Creat Ratio 16.3 RATIO (10-20); Calcium,Total 8.3 mg/dL (8.5-10.1); Chloride 93 mmol/L (98-107); Creatinine, Serum 0.62 mg/dL (0.70-1.30); EST Glomerular Filtration Rate 136 mL/min (>60); Est Glom Filt Rate - Afr Amer 165 mL/min (>60); Estimated Creatinine Clearance 70.02 ml/min; Glucose 79 mg/dL (74-106); Potassium 3.9 mmol/L (3.5-5.1); Sodium Level 130 mmol/L (136-145)
[2024-04-14] MEDS: Ipratropium/Albuterol Sulfate 3 ML AMPUL.NEB INHALATION ×2 (07:51→14:50)
[2024-04-14 09:55] LABS: Differential Comment SCANNED; Platelet Estimate ADEQUATE (ADEQ)
--- NOTE | 2024-04-14 10:53 | PN.RENAL_ITS ---
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 Patient is feeling okay, he reports being on clear liquids. Has not been eating well. Breathing is impaired, but stable Objective Data Objective Data Vital Signs: Vital Signs Temp Pulse Resp BP Pulse Ox O2 Del Method O2 Flow Rate 97.8 F 86 16 103/53 L 96 Nasal Cannula 4 04/14/24 10:44 04/14/24 10:44 04/14/24 10:44 04/14/24 10:44 04/14/24 10:44 04/14/24 10:44 04/14/24 10:44 Oxygen Flow Rate (L/min) 4 Oxygen Delivery Method Nasal Cannula Weight: 60.2 kg Body Mass Index (BMI) 22.1 Intake & Output: Intake and Output for Last 24 Hours 04/12/24 04/13/24 04/14/24 23:59 23:59 23:59 Intake Total 1120 / 1170 1150 / 1150 Output Total 300 / 400 100 / 100 Balance 820 / 770 1050 / 1050 Lab / Micro Data Attestation: I reviewed the patient's lab results. 04/14/24 06:15 04/14/24 06:15 Labs: Laboratory Results - last 24 hr 04/11/24 15:59: Haptoglobin 191 04/14/24 06:15: WBC 8.0, RBC 3.05 L, Hgb 9.4 L, Hct 28.4 L, MCV 93.1, MCH 30.8, MCHC 33.1, RDW Std Deviation 47.6 H, RDW Coeff of Sydni 14.1, Plt Count 179, MPV 9.0, Immature Gran % (Auto) 0.900, Neut % (Auto) 74.2 H, Lymph % (Auto) 6.0 L, M elv[place] % (Auto) 11.3 H, Eos % (Auto) 7.0 H, Baso % (Auto) 0.6, Absolute Neuts (auto) 5.9, Absolute Lymphs (auto) 0.48 L, Nucleated RBC % 0, Differential Comment SCANNED, Platelet Estimate ADEQUATE, PT 13.8, INR 1.1, APTT 35.0, Sodium 130 L, Potassium 3.9, Chloride 93 L, Carbon Dioxide 28.0, Anion Gap 9, BUN 10, C reatinine 0.62 L, Estim Creat Clear Calc 70.02, Est GFR (MDRD) Af Amer 165, Est GFR (MDRD) Non-Af 136, BUN/Creatinine Ratio 16.3, Glucose 79, Calcium 8.3 L, TSH 5.450 H Micro: Microbiology 04/11/24 20:26 Urine, Clean Catch Urine Culture - Final Culture exhibits no growth. 04/11/24 16:05 Stool Stool Occult Blood (LILY) - Final Physical Exam Const alert, oriented x3 and no apparent distress Orientation / Consciousness: oriented to person, oriented to place and oriented to time Nutritional Appearance: thin HEENT normocephalic Head and Scalp: atraumatic Resp no use of accessory muscles Auscultation: diminished lung sounds bilateral Cardio no rub GI non-tender Auscultation: normoactive bowel sounds Neuro Sensorium / Orientation: awake and alert Psych cooperative Assessment & Plan Assessment/Plan (1) Hyponatremia: PLAN: 73 years old with history of lung cancer presents with new hyponatremia, urine studies consistent with SIADH. Sodium seems to have stabilized at level 130, and fairly consistent. Patient reports not being on the fluid restriction and I think that would be important for him to be restricted especially when he goes home. He is encouraged to increase oral protein intake, limit fluid intake and continue with the salt tablets for now
[2024-04-14] MEDS: Lactated Ringers 1,000 ML 15 ML IV (11:29)
--- NOTE | 2024-04-14 11:40 | EX.PCM.CON.G ---
HPI Consult Data Date of Consult: 04/14/24 HPI Narrative Reason for Consultation: Anemia HPI Narrative: JIGNESH LOPEZ, is a 73 M with history of COPD on 2 L O2, chronic nonischemic cardiomyopathy with AICD and recovered EF but stage I diastolic dysfunction, anemia, small and non-small cell lung cancer status postchemotherapy and immunotherapy in remission, hyponatremia, BPH, psoriatic arthritis, GERD, hypothyroidism who presented to [facility] ED 04/11/2024 due to low hemoglobin. He was here beginning of February with COVID and ultimately was placed in [facility], he had been improving however a week ago he was feeling weaker and was diagnosed with a UTI, treated with a--ntibiotics but has remained weak and generally unwell, was noted to have a low sodium and was undergoing workup and when his sodium was rechecked his hemoglobin was 6.4 and he was sent to the ED. In the ED hemoglobin 6.6, FOBT negative but given his weakness and fatigue/symptomatic anemia hospitalist contacted for admission. Patient evaluated with at bedside and report history as above, this past week he has been a little bit more short of breath, fatigued, generally unwell. Patient's thinks he completed his urinary tract infection treatment but is overall just been somewhat unwell this week. No new cough, no abdominal pain, no nausea or vomiting, no bleeding noted from anywhere. Patient. Complains of poor appetite/p.o. intake and weakness and fatigue primarily. No fevers, no headache or changes in vision. [facility], LAT[facility] Medical History History of chronic CHF Chronic respiratory failure with hypoxia GERD (gastroesophageal reflux disease) Hypothyroidism Debility Lung cancer Anemia Arthritis Lesion of pelvic bone Pneumothorax after biopsy Secondary pulmonary arterial hypertension Nonischemic cardiomyopathy Severe left ventricular systolic dysfunction Atherosclerotic heart disease of [place] coronary artery without angina pectoris PVD (peripheral vascular disease) Stage 3 severe COPD by GOLD classification Hyperlipidemia CHF (congestive heart failure), NYHA class I Psoriatic arthritis Home Medications ?Medication ?Instructions ?Recorded ?Last Taken ?Type multivitamin 1 ea PO DAILY SUPPLEMENT 08/27/16 02/16/24 History omeprazole 40 mg capsule,delayed 40 mg PO DAILY GERD 12/01/18 02/16/24 History release aspirin 81 mg tablet,delayed [facility] 03/28/19 02/15/24 History release (Adult Aspirin Regimen) hydroxychloroquine 200 mg tablet 200 mg PO DAILY ARTHRITIS 04/15/21 02/16/24 History Disability Placard #1 ea 08/02/21 Unknown Rx cetirizine 10 mg capsule (Zyrtec) 10 mg PO DAILY ALLERGIES 11/05/21 02/16/24 History triamcinolone acetonide 55 mcg 1 spray intranasal DAILY PRN 04/22/22 Unknown History nasal spray aerosol (Nasacort) ALLERGIES ascorbic acid (vitamin C) 1,000 mg 1 g PO DAILY SUPPLEMENT 10/21/23 02/16/24 History capsule atorvastatin 40 mg tablet 40 mg PO QHS CHOLESTEROL 10/21/23 02/15/24 History clobetasol 0.05 % topical cream 1 applic topical DAILY FEET 10/21/23 02/15/24 History triamcinolone acetonide 0.1 % 1 applic topical DAILY SKIN 10/21/23 02/15/24 History topical cream umeclidinium 62.5 mcg/actuation 1 inh inhalation DAILY COPD #3 ea 10/29/23 02/15/24 Rx blister powder for inhalation levothyroxine 100 mcg tablet 100 mcg PO DAILY THYROID 01/26/24 02/16/24 History albuterol sulfate 90 mcg/actuation 2 puff inhalation Q4H PRN 02/16/24 Unknown History aerosol inhaler SHORTNESS OF BREATH/WHEEZING fluticasone furoate 200 1 inh inhalation DAILY COPD 02/16/24 02/15/24 History mcg-vilanterol 25 mcg/dose inhalation powder (Breo Ellipta) magnesium oxide 400 mg (241.3 mg 400 mg PO BID SUPPLEMENT 02/16/24 02/16/24 History magnesium) tablet potassium chloride 20 mEq 20 meq PO DAILY SUPPLEMENT 02/16/24 02/16/24 History tablet,extended release(part/cryst) Eduardo bunch #1 ea 02/17/24 Unknown Rx acetaminophen 325 mg tablet 650 mg (2 x 325 mg) PO Q6H PRN PRN 02/17/24 Unknown Rx Pain 1-10 Or Fever>100.7 #0 tabs albuterol sulfate 2.5 mg/3 mL 2.5 mg (3 mL) inhalation Q2H PRN 02/17/24 Unknown Rx (0.083 %) solution for nebulization PRN SOB &/OR WHEEZING #0 mL ipratropium 0.5 mg-albuterol 3 mg 3 ml inhalation Q6HWA.RT #0 mL 02/17/24 Unknown Rx (2.5 mg base)/3 mL nebulization soln losartan 25 mg tablet 25 mg PO DAILY BLOOD PRESSURE #90 03/11/24 Unknown Rx tabs cholecalciferol (vitamin D3) 25 1,000 unit PO BID SUPPLEMENT 03/15/24 Unknown History mcg (1,000 unit) tablet furosemide 20 mg tablet 20 mg PO DAILY EDEMA 03/15/24 Unknown History sodium chloride 1,000 mg soluble 1,000 mg PO BID SUPPLEMENT 03/15/24 Unknown History tablet tamsulosin 0.4 mg capsule 0.4 mg PO DAILY 04/11/24 Unknown History Allergy/AdvReac Type Severity Reaction Status Date / Time No Known Allergies Allergy Verified 03/15/24 15:28 Family History Mother Heart disease Brother CVA (cerebral vascular accident) Father Cancer brain Grandmother Diabetes Surgical History History of appendectomy (~12/26/19) Implantable cardioverter-defibrillator (ICD) in situ (12/27/16) Social History (Updated 04/11/24 @ 20:04 by Lynda Aquino) household members: spouse and other housing: jail do you think of yourself as: straight/heterosexual Smoking Status: Former smoker how long ago did patient quit smokin, 1.5p/day second hand exposure: Yes alcohol intake: never substance use type: does not use caffeine: Yes Type: coffee Number of servings: 2 what type of physical activity do you participate in: walking frequency: 3-4 times per week ROS ROS Narrative General: Denies fever/chills HENT: Denies headache, denies stuffy nose, denies sore throat EYES: Denies changes in vision Resp: Denies any change in cough, has had some increased shortness of breath this past week Cardiac: Denies chest pain GI: Denies abdominal pain, denies changes in bowel, denies nausea/vomiting : Denies changes in urination Extremity: Denies swelling MSK: Generalized weakness Neuro: Denies any numbness/tingling Heme: Denies any bleeding or bruising Skin: Denies rashes but bruises easily Psychiatric: No complaints voiced Physical Exam Const alert, oriented x3 and no apparent distress Orientation / Consciousness: oriented to person, oriented to place and oriented to time Nutritional Appearance: thin HEENT normocephalic Head and Scalp: atraumatic Resp no use of accessory muscles Auscultation: diminished lung sounds bilateral Cardio no rub GI non-tender Auscultation: normoactive bowel sounds Neuro Sensorium / Orientation: awake and alert Psych cooperative Lab / Micro Data 04/14/24 06:15 04/14/24 06:15 Labs: Laboratory Results - last 24 hr 04/11/24 15:59: Haptoglobin 191 04/14/24 06:15: WBC 8.0, RBC 3.05 L, Hgb 9.4 L, Hct 28.4 L, MCV 93.1, MCH 30.8, MCHC 33.1, RDW Std Deviation 47.6 H, RDW Coeff of Sydni 14.1, Plt Count 179, MPV 9.0, Immature Gran % (Auto) 0.900, Neut % (Auto) 74.2 H, Lymph % (Auto) 6.0 L, [place] % (Auto) 11.3 H, Eos % (Auto) 7.0 H, Baso % (Auto) 0.6, Absolute Neuts (auto) 5.9, Absolute Lymphs (auto) 0.48 L, Nucleated RBC % 0, Differential Comment SCANNED, Platelet Estimate ADEQUATE, PT 13.8, INR 1.1, APTT 35.0, Sodium 130 L, Potassium 3.9, Chloride 93 L, Carbon Dioxide 28.0, Anion Gap 9, BUN 10, Creatinine 0.62 L, Estim Creat Clear Calc 70.02, Est GFR (MDRD) Af Amer 165, Est GFR (MDRD) Non-Af 136, BUN/Creatinine Ratio 16.3, Glucose 79, Calcium 8.3 L, TSH 5.450 H Micro: Microbiology 04/11/24 20:26 Urine, Clean Catch Urine Culture - Final Culture exhibits no growth. Assessment & Plan Assessment/Plan (1) Anemia: QUALIFIERS: Anemia type: unspecified type Qualified Code(s): D64.9 - Anemia, unspecified PLAN: Plan 73-year-old gentleman with past medical history of CHF, COPD, adrenal sufficiency presents with altered mental status and fatigue and discovered to have severe hyponatremia and acute on chronic anemia of unclear etiology -Patient with baseline hemoglobin closer to 8-10 range -No active or acute blood loss -Retake count 2.88 with immature reticulocyte fraction 21.5, FOBT negative, iron low however TIBC also low and ferritin high, suspicious for mixed picture -FOBT negative with no evidence of ongoing blood loss -Aspirin held, will likely be able to resume this if no obvious bleeding identified -He will undergo an upper or lower endoscopy to evaluate his upper lower GI tract. He was explained alternatives, risk, benefits include not withstanding bleeding, infection, sepsis, perforation, need for emergent surgery . He will have an ASA of 3. Charges/Coding Visit Charges Inpatient E&M: 84846 Init Hosp L3
--- NOTE | 2024-04-14 11:40 | PCM.PRE.AN2 ---
ASA Classification* ASA Classification ASA Classification: 3 Assessment & Plan Anesthesia* Anesthesia Assessment Anesthesia Assessment: Discussed sedation and/or anesthesia options, risks, benefits, and alternatives with patient/parents/legal guardian/POA. Questions invited. The patient/parents/legal guardian/POA seems to understand and agrees to proceed with anesthesia plan. Reviewed the physical assessment, medical history, allergy history and patient home medications list prior to surgery/procedure/anesthetic and documented any changes. Performed airway and anesthesia risk assessments. Anesthesia Type Anesthesia Type: MAC History Source History Obtained from:: Patient and Chart Anesthesia Focused Assessment* Temperature: 97.8 F Pulse Rate: 86 Blood Pressure: 103/53 Respiratory Rate: 16 Pulse Ox: 96 Oxygen Delivery Method: Room Air Airway Assessment Mouth opens: >3 cm Mallampati Score: III Teeth Condition: Intact Neck Range of motion (ROM): Full ROM Focused Labs Anesthesia Preop lab: CBC WBC 8.0 K/mm3 (4.4-11.0) 04/14/24 06:15 RBC 3.05 M/mm3 (4.6-6.2) L 04/14/24 06:15 Hgb 9.4 g/dL (13.0-16.5) L 04/14/24 06:15 Hct 28.4 % (40-54) L 04/14/24 06:15 Plt Count 179 K/mm3 (150-450) 04/14/24 06:15 CHEMISTRY Potassium 3.9 mmol/L (3.5-5.1) 04/14/24 06:15 Sodium 130 mmol/L (136-145) L 04/14/24 06:15 Magnesium 1.9 mg/dL (1.6-2.6) 04/12/24 06:54 Phosphorus 4.2 mg/dL (2.5-4.9) 10/22/23 06:08 BUN 10 mg/dL (7-18) 04/14/24 06:15 Creatinine 0.62 mg/dL (0.70-1.30) L 04/14/24 06:15 Glucose 79 mg/dL (74-106) 04/14/24 06:15 POC Glucose 169 mg/dL (70-110) H 12/01/18 18:22 TSH 5.450 uIU/mL (0.358-3.740) H 04/14/24 06:15 COAG PT 13.8 SECONDS (11.7-14.9) 04/14/24 06:15 Pre-Assessment Diagnosis/Proposed Procedure Planned Operative Procedure(s): EGD and colonoscopy. 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 When Was Last Pacemaker Check QUESTION #4 FULL TEXT: You/Your Family Experience fever (hyperthermia) with Anesthesia Last Oral Intake Last Oral intake: Last Oral Intake NPO since 00:00 04/14/24 10:44 Meds taken in AM with sips of water? 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 assembler Female HX of Motion Sickness HX of N/V After Surgery Non-Smoker Duration of Surgery greater than 60 minutes Number of Risk Factors PONV Score Height & Weight Height & Weight: Anesthesia: Height & Weight Height 5 ft 5 in 04/14/24 10:44 Weight: 60.2 kg 04/14/24 10:44 Body Mass Index (BMI) 22.1 04/14/24 10:44 Respiratory Assessment Respiratory Assessment - specialty transformer assembler: Respiratory Tract Infection Hx - specialty transformer assembler Hx Respiratory Tract Infection Any additional information?: Yes Hx Respiratory Tract Infection: No STOP Sleep Apnea STOP Sleep Apnea - specialty transformer assembler: STOP Sleep Apnea - specialty transformer assembler Hx Hypertension No 04/12/24 13:11 Hx Sleep Apnea Yes 04/11/24 20:12 CPAP No 04/11/24 20:12 BIPAP Yes: 21/5 04/11/24 20:12 Do you snore loudly (louder than talking or can be heard Do you often feel tired/ fatigued/ sleepy during daytime? Has anyone observed you stop breathing during sleep? STOP Results Positive 04/11/24 20:12 QUESTION #5 FULL TEXT : Do you snore loudly (louder than talking or can be heard through closed doors)? 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 Specify any problems Hx of Preganancy in last 3 N/A 04/11/24 20:12 Months Nurse Filling Out Transfusion DSLOAN 04/11/24 20:12 & Questions: Date: 04/11/24 04/11/24 20:12 Time: 20:13 04/11/24 20:12 Patient unable to answer at this time (ie. 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 INHALATION Q2H PRN PRN SOB &/OR WHEEZING Albuterol/Ipratropium 3 ml 04/11/24 18:27 04/14/24 07:51 Ipratropium/Albuterol Sulfate 3 Ml Ampul.Neb INHALATION 3 ml Q6HWA.RT ROLANDO Administration Atorvastatin Calcium 40 mg 04/11/24 22:00 04/13/24 20:17 Atorvastatin Calcium 40 Mg Tablet PO 40 mg QHS ROLANDO Administration Hydroxychloroquine Sulfate 200 mg 04/12/24 10:00 04/14/24 09:26 Hydroxychloroquine 200 Mg Tablet PO Not Given DAILY ROLANDO Sodium Chloride 250 mls @ 15 mls/hr 04/11/24 20:04 IV .[id number] PRN Additional IVPB Infusion Sodium Chloride 250 mls @ 15 mls/hr 04/11/24 20:04 IV .[id number] PRN Saline Flush Lactated Ringer's 1,000 mls @ 15 mls/hr 04/14/24 11:30 04/14/24 11:29 IV 15 mls/hr .Q48H ROLANDO Administration Levothyroxine Sodium 100 mcg 04/12/24 06:00 04/14/24 04:41 Levothyroxine 100 Mcg Tablet PO Not Given DAILY@0600 ROLANDO Loratadine 10 mg 04/12/24 10:00 04/14/24 09:26 Loratadine 10 Mg Tablet PO Not Given DAILY ROLANDO Melatonin 3 mg 04/11/24 18:27 Melatonin 3 Mg Tablet PO QHS PRN PRN INSOMNIA Ondansetron HCl 4 mg 04/11/24 18:27 Ondansetron 4 Mg/2 Ml Vial IV Q8H PRN PRN NAUSEA/VOMITING Pantoprazole Sodium 40 mg 04/12/24 10:00 04/14/24 09:26 Pantoprazole Sodium 40 Mg Tablet PO Not Given DAILY ROLANDO Senna/Docusate Sodium 2 tablet 04/11/24 18:27 Senna/Docusate Sodium 1 Tablet PO BID PRN PRN Constipation Sodium Chloride 1 gm 04/11/24 22:00 04/14/24 09:26 Sodium Chloride 1 Gm Tablet PO Not Given BID ROLANDO Sodium Chloride 10 - 40 ml 04/11/24 20:04 04/14/24 03:36 0.9% Saline Lock 10 Ml Syringe IV 10 ml UD PRN Administration SALINE FLUSH Tamsulosin HCl 0.4 mg 04/12/24 10:00 04/14/24 09:26 Tamsulosin Hcl 0.4 Mg Capsule PO Not Given DAILY ROLANDO PFSH Medical History History of chronic CHF Chronic respiratory failure with hypoxia GERD (gastroesophageal reflux disease) Hypothyroidism Debility Lung cancer Anemia Arthritis Lesion of pelvic bone Pneumothorax after biopsy Secondary pulmonary arterial hypertension Nonischemic cardiomyopathy Severe left ventricular systolic dysfunction Atherosclerotic heart disease of [place] coronary artery without angina pectoris PVD (peripheral vascular disease) Stage 3 severe COPD by GOLD classification Hyperlipidemia CHF (congestive heart failure), NYHA class I Psoriatic arthritis Home Medications ?Medication ?Instructions ?Recorded ?Last Taken ?Type multivitamin 1 ea PO DAILY SUPPLEMENT 08/27/16 02/16/24 History omeprazole 40 mg capsule,delayed 40 mg PO DAILY GERD 12/01/18 02/16/24 History release aspirin 81 mg tablet,delayed 81 mg PO QODAY [facility] 03/28/19 02/15/24 History release (Adult Aspirin Regimen) hydroxychloroquine 200 mg tablet 200 mg PO DAILY ARTHRITIS 04/15/21 02/16/24 History Disability Placard #1 ea 08/02/21 Unknown Rx cetirizine 10 mg capsule (Zyrtec) 10 mg PO DAILY ALLERGIES 11/05/21 02/16/24 History triamcinolone acetonide 55 mcg 1 spray intranasal DAILY PRN 04/22/22 Unknown History nasal spray aerosol (Nasacort) ALLERGIES ascorbic acid (vitamin C) 1,000 mg 1 g PO DAILY SUPPLEMENT 10/21/23 02/16/24 History capsule atorvastatin 40 mg tablet 40 mg PO QHS CHOLESTEROL 10/21/23 02/15/24 History clobetasol 0.05 % topical cream 1 applic topical DAILY FEET 10/21/23 02/15/24 History triamcinolone acetonide 0.1 % 1 applic topical DAILY SKIN 10/21/23 02/15/24 History topical cream umeclidinium 62.5 mcg/actuation 1 inh inhalation DAILY COPD #3 ea 10/29/23 02/15/24 Rx blister powder for inhalation levothyroxine 100 mcg tablet 100 mcg PO DAILY THYROID 01/26/24 02/16/24 History albuterol sulfate 90 mcg/actuation 2 puff inhalation Q4H PRN 02/16/24 Unknown History aerosol inhaler SHORTNESS OF BREATH/WHEEZING fluticasone furoate 200 1 inh inhalation DAILY COPD 02/16/24 02/15/24 History mcg-vilanterol 25 mcg/dose inhalation powder (Breo Ellipta) magnesium oxide 400 mg (241.3 mg 400 mg PO BID SUPPLEMENT 02/16/24 02/16/24 History magnesium) tablet potassium chloride 20 mEq 20 meq PO DAILY SUPPLEMENT 02/16/24 02/16/24 History tablet,extended release(part/cryst) Eduardo pelletier walker #1 ea 02/17/24 Unknown Rx acetaminophen 325 mg tablet 650 mg (2 x 325 mg) PO Q6H PRN PRN 02/17/24 Unknown Rx Pain 1-10 Or Fever>100.7 #0 tabs albuterol sulfate 2.5 mg/3 mL 2.5 mg (3 mL) inhalation Q2H PRN 02/17/24 Unknown Rx (0.083 %) solution for nebulization PRN SOB &/OR WHEEZING #0 mL ipratropium 0.5 mg-albuterol 3 mg 3 ml inhalation Q6HWA.RT #0 mL 02/17/24 Unknown Rx (2.5 mg base)/3 mL nebulization soln losartan 25 mg tablet 25 mg PO DAILY BLOOD PRESSURE #90 03/11/24 Unknown Rx tabs cholecalciferol (vitamin D3) 25 1,000 unit PO BID SUPPLEMENT 03/15/24 Unknown History mcg (1,000 unit) tablet furosemide 20 mg tablet 20 mg PO DAILY EDEMA 03/15/24 Unknown History sodium chloride 1,000 mg soluble 1,000 mg PO BID SUPPLEMENT 03/15/24 Unknown History tablet tamsulosin 0.4 mg capsule 0.4 mg PO DAILY 04/11/24 Unknown History Allergy/AdvReac Type Severity Reaction Status Date / Time No Known Allergies Allergy Verified 03/15/24 15:28 Family History Mother Heart disease Brother CVA (cerebral vascular accident) Father Cancer brain Grandmother Diabetes Surgical History History of appendectomy (~12/26/19) Implantable cardioverter-defibrillator (ICD) in situ (12/27/16) Social History household members: spouse and other housing: custodial do you think of yourself as: straight/heterosexual Smoking Status: Former smoker how long ago did patient quit smokin, 1.5p/day second hand exposure: Yes alcohol intake: never substance use type: does not use caffeine: Yes Type: coffee Number of servings: 2 what type of physical activity do you participate in: walking frequency: 3-4 times per week Review of Systems (Anesthesia) ROS Narrative System reviewed and no additional complaints, except as documented.
--- NOTE | 2024-04-14 12:25 | PCM.POST.ANE ---
Anesthesia: Postop Eval I Current Vital Signs Temperature: 97 F Pulse Rate: 83 Blood Pressure: 87/52 Respiratory Rate: 16 Pulse Ox: 92 Oxygen Delivery Method: Nasal Cannula Oxygen Flow Rate (L/min): 4 Assessment Airway patent: Yes Spontaneous unlabored respirations: Yes Mental status: Awake and Calm nausea: No Vomiting: No Anesthesia Complication: No Fluid Hydration Crystalloid volume administer (ml): 400 Total IV fluid infused: 400 Progress Note Anesthesia document: Postop Eval 1 completed: Yes
--- NOTE | 2024-04-14 12:26 | POSTOPAN2_ITS ---
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.MDOT Spontaneous unlabored Yes 04/14/24 12:26 FORM BUILDING SUPERVISOR.MDOT respirations Mental status Awake,Calm 04/14/24 12:26 FORM BUILDING SUPERVISOR.MDOT nausea No 04/14/24 12:26 FORM BUILDING SUPERVISOR.MDOT Vomiting No 04/14/24 12:26 FORM BUILDING SUPERVISOR.MDOT Anesthesia Postop Eval I: Fluid Summary Crystalloid volume administer 400 04/14/24 12:26 FORM BUILDING SUPERVISOR.MDOT (ml) Colloids volume administered ( ml) Blood Product volume administered (ml) Total IV fluid infused 400 04/14/24 12:26 FORM BUILDING SUPERVISOR.MDOT Anesthesia Postop Eval I: Summary Notes Anesthesia Complication No 04/14/24 12:26 FORM BUILDING SUPERVISOR.MDOT Anesthesia Complication Comment: Post-operative progress note Anesthesia: Postop Eval II Evaluation Mental status: Awake and Calm Pain Level: 0 nausea: No Vomiting: No Complications Anesthesia Complication: No
--- NOTE | 2024-04-14 12:26 | PCM.POSTANE2 ---
Anesthesia Postop Eval I Sum Postop Eval Completion status Anesthesia document: Postop Eval 1 completed: Yes Anesthesia Postop Eval I Summary Anesthesia Postop Eval I Summary: Anesthesia Postop Eval I: Assessment Summary Airway patent Yes 04/14/24 12:26 RECRUITMENT SPECIALIST.MDOT Spontaneous unlabored Yes 04/14/24 12:26 RECRUITMENT SPECIALIST.MDOT respirations Mental status Awake,Calm 04/14/24 12:26 RECRUITMENT SPECIALIST.MDOT nausea No 04/14/24 12:26 RECRUITMENT SPECIALIST.MDOT Vomiting No 04/14/24 12:26 RECRUITMENT SPECIALIST.MDOT Anesthesia Postop Eval I: Fluid Summary Crystalloid volume administer 400 04/14/24 12:26 RECRUITMENT SPECIALIST.MDOT (ml) Colloids volume administered ( ml) Blood Product volume administered (ml) Total IV fluid infused 400 04/14/24 12:26 RECRUITMENT SPECIALIST.MDOT Anesthesia Postop Eval I: Summary Notes Anesthesia Complication No 04/14/24 12:26 RECRUITMENT SPECIALIST.MDOT Anesthesia Complication Comment: Post-operative progress note Anesthesia: Postop Eval II Evaluation Mental status: Awake and Calm Pain Level: 0 nausea: No Vomiting: No Complications Anesthesia Complication: No
--- NOTE | 2024-04-14 12:32 | OP.CCLET_ITS ---
04/14/2024 Clay Warren MD Re : Upper GI endoscopy procedure for Khoi Ramires Dear Dr. Warren This procedure was performed on March. My impressions and recommendations are as follows: Impressions : - Normal esophagus. - Non-bleeding gastric ulcers with no stigmata of bleeding. Biopsied. - Z-line irregular, 37 cm from the incisors. Biopsied. - No gross lesions in the first portion of the duodenum. Recommendations : - Return [facility] to [facility]. - Resume previous diet. - Continue present medications. - Await pathology results. My findings are described in the full procedure note, which is enclosed. If I can be of further assistance, please feel free to contact me at . Sincerely, Micky Garcia, 04/14/2024 12:32:12 PM This report has been signed electronically.
--- NOTE | 2024-04-14 12:32 | OP.EGD_ITS ---
Patient Name: Khoi Ramires Procedure Date: 04/14/2024 11:51 AM Date of : 1950 Age: 73 Procedure: Upper GI endoscopy Indications: Iron deficiency anemia Providers: Micky Garcia DO Medicines: Monitored Anesthesia Care Patient Profile: This is a 73 year old male. Refer to note in patient chart for documentation of history and physical. Patient has symptoms. Complications: No immediate complications. Procedure: Pre-Anesthesia Assessment: - Prior to the procedure, a History and Physical was performed, and patient medications and allergies were reviewed. The patient is competent. The risks and benefits of the procedure and the sedation options and risks were discussed with the patient. All questions were answered and informed consent was obtained. Patient identification and proposed procedure were verified by the physician in the pre-procedure area. Mental Status Examination: alert and oriented. Airway Examination: normal oropharyngeal airway and neck mobility. Respiratory Examination: clear to auscultation. CV Examination: normal. Prophylactic Antibiotics: The patient does not require prophylactic antibiotics. Prior Anticoagulants: The patient has taken no anticoagulant or antiplatelet agents. ASA Grade Assessment: III - A patient with severe systemic disease. After reviewing the risks and benefits, the patient was deemed in satisfactory condition to undergo the procedure. The anesthesia plan was to use monitored anesthesia care (MAC). Immediately prior to administration of medications, the patient was re-assessed for adequacy to receive sedatives. The heart rate, respiratory rate, oxygen saturations, blood pressure, adequacy of pulmonary ventilation, and response to care were monitored throughout the procedure. The physical status of the patient was re-assessed after the procedure. After obtaining informed consent, the endoscope was passed under direct vision. Throughout the procedure, the patient's blood pressure, pulse, and oxygen saturations were monitored continuously. The colonoscope was introduced through the mouth, and advanced to the second part of duodenum. The upper GI endoscopy was accomplished without difficulty. The patient tolerated the procedure well. Scope In: 11:59:59 AM Scope Out: 12:04:21 PM Total Procedure Duration Time 0 hours 4 minutes 22 seconds Findings: The examined esophagus was normal. Many non-bleeding linear gastric ulcers with no stigmata of bleeding were found in the cardia and in the gastric fundus. The largest lesion was 7 mm in largest dimension. Biopsies were taken with a cold forceps for histology. Verification of patient identification for the specimen was done. Estimated blood loss was minimal. The Z-line was irregular and was found 37 cm from the incisors. Biopsies were taken with a cold forceps for histology. Verification of patient identification for the specimen was done. Estimated blood loss was minimal. No gross lesions were noted in the first portion of the duodenum. Impression: - Normal esophagus. - Non-bleeding gastric ulcers with no stigmata of bleeding. Biopsied. - Z-line irregular, 37 cm from the incisors. Biopsied. - No gross lesions in the first portion of the duodenum. Recommendation: - Return patient to [facility] care. - Resume previous diet. - Continue present medications. - Await pathology results. Procedure Code(s): --- Professional --- 37613, Esophagogastroduodenoscopy, flexible, transoral; with biopsy, single or multiple CPT copyright 2021 [employer] [place] [employer]. All rights reserved. The codes documented in this report are preliminary and upon volunteer recruitment coordinator review may be revised to meet current compliance requirements. Micky Garcia DO 04/14/2024 12:32:12 PM This report has been signed electronically. Number of Addenda: 0 Note Initiated On: 04/14/2024 11:51 AM
--- NOTE | 2024-04-14 12:35 | OP.COLON_ITS ---
Patient Name: Khoi Ramires Procedure Date: 04/14/2024 12:05 PM Date of : 1950 Age: 73 Procedure: Colonoscopy Indications: Iron deficiency anemia Providers: Micky Garcia DO Medicines: Monitored Anesthesia Care Patient Profile: This is a 73 year old male. Refer to note in patient chart for documentation of history and physical. Patient has symptoms. Last Colonoscopy: date unknown. Unable to locate last colonoscopy report. Complications: No immediate complications. Procedure: Pre-Anesthesia Assessment: - Prior to the procedure, a History and Physical was performed, and patient medications and allergies were reviewed. The patient is competent. The risks and benefits of the procedure and the sedation options and risks were discussed with the patient. All questions were answered and informed consent was obtained. Patient identification and proposed procedure were verified by the physician in the pre-procedure area. Mental Status Examination: alert and oriented. Airway Examination: normal oropharyngeal airway and neck mobility. Respiratory Examination: clear to auscultation. CV Examination: normal. Prophylactic Antibiotics: The patient does not require prophylactic antibiotics. Prior Anticoagulants: The patient has taken no anticoagulant or antiplatelet agents. ASA Grade Assessment: III - A patient with severe systemic disease. After reviewing the risks and benefits, the patient was deemed in satisfactory condition to undergo the procedure. The anesthesia plan was to use monitored anesthesia care (MAC). Immediately prior to administration of medications, the patient was re-assessed for adequacy to receive sedatives. The heart rate, respiratory rate, oxygen saturations, blood pressure, adequacy of pulmonary ventilation, and response to care were monitored throughout the procedure. The physical status of the patient was re-assessed after the procedure. After I obtained informed consent, the scope was passed under direct vision. Throughout the procedure, the patient's blood pressure, pulse, and oxygen saturations were monitored continuously. The colonoscope was introduced through the anus and advanced to the cecum, identified by appendiceal orifice and ileocecal valve. The colonoscopy was performed without difficulty. The patient tolerated the procedure well. The quality of the bowel preparation was poor. The ileocecal valve, appendiceal orifice, and rectum were photographed. Scope In: 12:08:16 PM Scope Withdrawal Time 0 hours 5 minutes 47 seconds Scope Out: 12:23:43 PM Total Procedure Duration Time 0 hours 15 minutes 27 seconds Findings: The perianal and digital rectal examinations were normal. Multiple small and large-mouthed diverticula were found in the recto-sigmoid colon, sigmoid colon and descending colon. A moderate amount of liquid semi-liquid semi-solid stool was found in the entire colon. A 5 mm polyp was found in the hepatic flexure. The polyp was sessile. The polyp was removed with a jumbo cold forceps. Resection and retrieval were complete. Verification of patient identification for the specimen was done. Estimated blood loss was minimal. Impression: - Preparation of the colon was poor. - Diverticulosis in the recto-sigmoid colon, in the sigmoid colon and in the descending colon. - Stool in the entire examined colon. - One 5 mm polyp at the hepatic flexure, removed with a jumbo cold forceps. Resected and retrieved. Recommendation: - Repeat colonoscopy in 6 months because the bowel preparation was poor. - Continue present medications. Procedure Code(s): --- Professional --- 99066, Colonoscopy, flexible; with biopsy, single or multiple CPT copyright 2021 [employer]. All rights reserved. The codes documented in this report are preliminary and upon fingerer review may be revised to meet current compliance requirements. Micky Garcia DO 04/14/2024 12:35:08 PM This report has been signed electronically. Number of Addenda: 0 Note Initiated On: 04/14/2024 12:05 PM
--- NOTE | 2024-04-14 12:35 | OP.CCLET_ITS ---
04/14/2024 Clay Warren MD Re : Colonoscopy procedure for Khoi Ramires Dear Dr. Warren This procedure was performed on March. My impressions and recommendations are as follows: Impressions : - Preparation of the colon was poor. - Diverticulosis in the recto-sigmoid colon, in the sigmoid colon and in the descending colon. - Stool in the entire examined colon. - One 5 mm polyp at the hepatic flexure, removed with a jumbo cold forceps. Resected and retrieved. Recommendations : - Repeat colonoscopy in 6 months because the bowel preparation was poor. - Continue present medications. My findings are described in the full procedure note, which is enclosed. If I can be of further assistance, please feel free to contact me at . Sincerely, Micky Garcia, 04/14/2024 12:35:08 PM This report has been signed electronically.
--- NOTE | 2024-04-14 12:40 | EGD_PTH ---
PATIENT: JIGNESH LOPEZ LOC: [facility] U#:[id number] AGE/SX: 73/M ROOM: [facility] RE04/11/[address]: Dr. Jorge Patterson DO : 1950 BED: 1 DIS: 04/14/2024 SPEC #: [id number] RECD: 04/14/24 14:27 STATUS: JOSÉ REQ #: [id number] KATHE: 04/14/24 12:[address]: Micky Garcia DEPT: SURGICAL PATHOLOGY RECD BY: Mariel Fernandes ENTERED: 04/15/24 07:10 SP TYPE: EGD BIOPSY OTHR DR: MD Dr. Jorge Fatima DO Dr. Olga Voroshilova, MD Dr. Paige Pierce, MD Tissues: A - Gastric mucous membrane B - Esophagus, NOS C - COLON BIOPSY Procedures: Special Stain Group I Surgery Specimen Level IV Alcian Blue/PAS (control) Comments: @ Ordering doctor for SSI edited from to @ by PRATEEK at 04/15/24 0816 @ Ordering doctor for SUIV edited from to @ by PRATEEK at 04/15/24 0816 @ Ordering doctor for AB-PAS edited from to @ by PRATEEK at 04/15/24 0816 @ Submitting doctor edited from to @ by PRATEEK at 04/15/24 0816 HEADER OPERATION: Colonoscopy with biopsy and EGD with biopsies PRE-OP DIAGNOSIS: Anemia TISSUE SUBMITTED: A- Gastric antrum biopsy, B- Distal esophagus biopsy, C- Hepatic flexure polyp biopsy MICROSCOPIC DIAGNOSIS A. Gastric antrum, biopsy: Chronic gastritis with focal active gastritis. See comment. B. Distal esophagus, biopsy: Gastroesophageal junctional mucosa with chronic inflammation. 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 No evidence of dysplasia. See comment. C. Colonic polyp at hepatic flexure, biopsy: Tubular adenoma. AM. 04/19/2024 COMMENT A. The results of immunohistochemistry for Helicobacter pylori will be reported separately ([id number]). B. Alcian blue/PAS stain with matched control supports the above diagnosis. Immunohistochemistry ([id number]) supports the above diagnosis. MICROSCOPIC DESCRIPTION Slides are reviewed. GROSS DESCRIPTION A. Received in fixative is one container labeled with the patient's name and designated Gastric antrum biopsy. The specimen consists of two irregular fragments of light ram soft tissue that in aggregate measure 0.8 x 0.5 x 0.1 cm. The specimen is totally submitted in one cassette. B. Received in fixative is one container labeled with the patient's name and designated Distal esophagus biopsy. The specimen consists of multiple irregular fragments of light ram soft tissue that in aggregate measure 1.0 x 0.3 x 0.1 cm. The specimen is totally submitted in one cassette. C. Received in fixative is one container labeled with the patient's name and designated Hepatic flexure polyp biopsy. The specimen consists of one irregular fragment of light ram soft tissue that measures 0.4 x 0.3 x 0.1 cm. The specimen is totally submitted in one cassette. SJ 04/15/2024 TC:3 CPT:[id number]
--- NOTE | 2024-04-14 12:40 | IMM_PTH ---
PATIENT: JIGNESH LOPEZ LOC: [facility] U#:[id number] AGE/SX: 73/M ROOM: [facility] RE04/11/[address]: Dr. Jorge Patterson DO : 1950 BED: 1 DIS: 04/14/2024 SPEC #: [id number] RECD: 04/15/24 08:17 STATUS: JOSÉ REQ #: [id number] KATHE: 04/14/24 12:[address]: Micky Garcia DEPT: IMMUNOHISTOCHEMISTRY RECD BY: Chris Galvez ENTERED: 04/15/24 08:17 SP TYPE: IMMUNO OTHR DR: MD Dr. Jorge Fatima DO Dr. Olga Voroshilova, MD Dr. Paige Pierce, MD Tissues: A - Gastric mucous membrane B - Esophagus, NOS Procedures: H Pylori (initial) P53 (initial) KI-67 (add) PHYSICIAN & INSTITUTION +[place] [id number] SPECIMEN INFORMATION: Tissue Source: A- Gastric antrum Clinical Info: Radha Specimen Number: [id number] CPT code: 13778D8,12003 METHODOLOGY: Deparaffinized sections of prefer/formalin-fixed tissue or PAP/DQ stained slides are incubated with monoclonal/polyclonal antibodies/oligonucleotide probes. Localization is made via biotin free immunoperoxidase method. Appropriate controls are performed and reacted as expected. Results on target cell population are indicated in the following table: RESULTS: ANTIBODY / CLONE RESULT Block A H Pylori (polyclonal) negative Block B P53 (DO-7) positive, wild type Ki-67 (30-9) positive ,low These tests were developed and their performance characteristics determined by [facility]. They may not have been cleared or approved by the U.S. Food and Drug Administration. The FDA has determined that such clearance or approval is not necessary. The above immunohistochemical/dualISH markers are ordered and reviewed by the Pathologist. INTERPRETATION: A. Gastric antrum, biopsy: Negative for Helicobacter pylori organisms. B. Distal esophagus, biopsy: No evidence of dysplasia. ALFREDA/ 04/20/2024
--- NOTE | 2024-04-14 13:55 | PCM.TXEXTCAR ---
Diet Diet Order/Speech Therapy: 04/14/24 01:00 Regular diet Fluid restriction 1200 cc/day Routine Orders/Code Status O2 Liters per Minute: 4 O2 Frequency: Continuous Keep PO Greater than or Equal to (%): 90 Routine Lab Work: CBC (in five days) Code Status: Full Code Wound(s) Right upper arm: Wound Type: Skin Tear Therapies Weight Bearing: Full weight bearing Physical Therapy: Eval and Treat Occupational Therapy: Eval and Treat Problem/Diagnosis (1) Anemia: Status: Chronic Code(s): D64.9 - Anemia, unspecified Plan 1. Acute anemia-secondary to gastric ulcer disease #2 chronic iron deficiency anemia-patient will be given IV iron #3 chronic hypoxic respiratory failure-patient is currently on nasal cannula oxygen #4 debility secondary to multiple medical problems-patient is being seen by PT and OT, he will need to return to a retirement facility after discharge from the hospital here. #5 hypothyroidism-patient is on Synthroid #6 nonischemic cardiomyopathy-patient's last echocardiogram showed an EF of 65% #7 hyponatremia-etiology unclear at this point, nephrology is participating in his care, his diuretics were stopped and he will be observed. Patient's sodium again today was 130 According to nursing, patient states that he does not take hydrocortisone any longer, this was discontinued Total clinical time spent by myself addressing the patient's medical issues, reviewing his data, and collaborating with patient's care team: 35 minutes Allergies/Procedures Done in Hospital Allergies No Known Allergies Allergy (Verified 03/15/24 15:28) Type of Care/Length of Stay Estimated LOS: Convalescent Care Less Than 30 days Type of Care Needed: Skilled Rehab Potential: Good Prognosis: Good Additional Orders/Day of Discharge Day of Discharge: 04/14/24 Dietary and Speech Recommendations Dietitian Recommendations/Changes: Continue Cardiac diet to manage medical conditions. Discharge Plan Admission Admit Date/Time: 04/11/24 17:15 Primary Reason for Your Visit: Anemia, hyponatremia Attending Provider: Jorge Patterson Primary Care Provider: Clay Warren Consulting Providers: Samra Kearney; Merced Diana Discharge Orders/Prescriptions Prescriptions: New albuterol sulfate 2.5 mg /3 mL (0.083 %) Solution For Nebulization 2.5 mg inhalation Q2H PRN PRN (Reason: SOB &/OR WHEEZING) Qty: 0 0RF melatonin 3 mg Tablet 3 mg PO QHS PRN PRN (Reason: Insomnia) Qty: 0 0RF pantoprazole 40 mg Tablet,Delayed Release (Dr/Ec) 40 mg PO BIDCM Qty: 0 0RF Continued (DME) Disability Placard See Rx Instructions .Route .MEDSUPPLY Qty: 1 0RF Rx Instructions: Expires 08/02/2026 Zyrtec 10 mg capsule 10 mg PO DAILY levothyroxine 100 mcg tablet 100 mcg PO DAILY multivitamin 1 EACH tablet 1 ea PO DAILY hydroxychloroquine 200 mg tablet 200 mg PO DAILY cholecalciferol (vitamin D3) 25 mcg (1,000 unit) tablet 1,000 unit PO BID ascorbic acid (vitamin C) 1,000 mg capsule 1 g PO DAILY clobetasol 0.05 % cream 1 applic TOPICAL DAILY atorvastatin 40 mg tablet 40 mg PO QHS potassium chloride 20 mEq tablet,ER particles/crystals 20 meq PO DAILY fluticasone furoate-vilanterol [Breo Ellipta] 200-25 mcg/dose blister with device 1 inh inhalation DAILY Rx Instructions: after inhalation, rinse mouth with water and spit out; do not swallow acetaminophen 325 mg Tablet 650 mg PO Q6H PRN PRN (Reason: Pain 1-10 Or Fever>100.7) Qty: 0 0RF ipratropium-albuterol 0.5 mg-3 mg(2.5 mg base)/3 mL Solution For Nebulization 3 ml inhalation Q6HWA.RT Qty: 0 0RF furosemide 20 mg tablet 20 mg PO DAILY sodium chloride 1,000 mg tablet,soluble 1,000 mg PO BID tamsulosin 0.4 mg capsule 0.4 mg PO DAILY (DME) [facility] See Rx Instructions .Route .MEDSUPPLY Qty: 1 0RF Rx Instructions: As directed losartan 25 mg tablet 25 mg PO DAILY Qty: 90 3RF Discontinued aspirin [Adult Aspirin Regimen] 81 mg tablet,delayed release (DR/EC) 81 mg PO QODAY triamcinolone acetonide [Nasacort] 55 mcg aerosol,spray 1 spray intranasal DAILY PRN (Reason: ALLERGIES ) Rx Instructions: administer into each nostril omeprazole 40 MG capsule,delayed release(DR/EC) 40 mg PO DAILY triamcinolone acetonide 0.1 % cream 1 applic TOPICAL DAILY magnesium oxide 400 mg (241.3 mg magnesium) tablet 400 mg PO BID albuterol sulfate 90 mcg/actuation HFA aerosol inhaler 2 puff inhalation Q4H PRN (Reason: SHORTNESS OF BREATH/WHEEZING ) albuterol sulfate 2.5 mg /3 mL (0.083 %) Solution For Nebulization 2.5 mg inhalation Q2H PRN PRN (Reason: SOB &/OR WHEEZING) Qty: 0 0RF umeclidinium 62.5 mcg/actuation blister with device 1 inh inhalation DAILY Qty: 3 3RF Referrals / Follow Up: Clay Warren MD [Primary Care Provider] - Disposition Disposition (needs filled in before D/C Order can be placed): [facility] ([facility]) Anemia Qualifiers: Anemia type: unspecified type Qualified Code(s): D64.9 - Anemia, unspecified
--- NOTE | 2024-04-14 14:39 | CASEMGMT ---
Patient is ready for discharge to TCU. SW notified patient and his . Plan: d/c to [facility] TCU under skilled level of care. Arianne CONNORS
[2024-04-14] MEDS: Sodium Ferric Gluconat/Sucrose 250 MG in 0.9% Normal Saline (250mL Bag) 250 ML 135 MG IV (14:46)
--- NOTE | 2024-04-14 15:13 | PHA.DC.MR.R ---
Pharmacy ID Med Reconciliation Pharmacy Service has performed discharge medication reconciliation for this patient upon transfer to TCU The patient's discharge medication list was reviewed for discrepancies and discrepancies were resolved. Medications at Discharge Home Medications multivitamin 1 ea PO DAILY SUPPLEMENT 08/27/16 hydroxychloroquine 200 mg tablet 200 mg PO DAILY ARTHRITIS 04/15/21 Disability Placard #1 ea 08/02/21 cetirizine 10 mg capsule (Zyrtec) 10 mg PO DAILY ALLERGIES 11/05/21 ascorbic acid (vitamin C) 1,000 mg capsule 1 g PO DAILY SUPPLEMENT 10/21/23 atorvastatin 40 mg tablet 40 mg PO QHS CHOLESTEROL 10/21/23 clobetasol 0.05 % topical cream 1 applic topical DAILY FEET 10/21/23 levothyroxine 100 mcg tablet 100 mcg PO DAILY THYROID 01/26/24 fluticasone furoate 200 mcg-vilanterol 25 mcg/dose inhalation powder (Breo Ellipta) 1 inh inhalation DAILY COPD 02/16/24 potassium chloride 20 mEq tablet,extended release(part/cryst) 20 meq PO DAILY SUPPLEMENT 02/16/24 Fropriya wheeled walker #1 ea 02/17/24 acetaminophen 325 mg tablet 650 mg (2 x 325 mg) PO Q6H PRN PRN Pain 1-10 Or Fever>100.7 #0 tabs 02/17/24 ipratropium 0.5 mg-albuterol 3 mg (2.5 mg base)/3 mL nebulization soln 3 ml inhalation Q6HWA.RT #0 mL 02/17/24 losartan 25 mg tablet 25 mg PO DAILY BLOOD PRESSURE #90 tabs 03/11/24 cholecalciferol (vitamin D3) 25 mcg (1,000 unit) tablet 1,000 unit PO BID SUPPLEMENT 03/15/24 furosemide 20 mg tablet 20 mg PO DAILY EDEMA 03/15/24 sodium chloride 1,000 mg soluble tablet 1,000 mg PO BID SUPPLEMENT 03/15/24 tamsulosin 0.4 mg capsule 0.4 mg PO DAILY 04/11/24 albuterol sulfate 2.5 mg/3 mL (0.083 %) solution for nebulization 2.5 mg (3 mL) inhalation Q2H PRN PRN SOB &/OR WHEEZING #0 mL 04/14/24 melatonin 3 mg tablet 3 mg PO QHS PRN PRN Insomnia #0 tabs 04/14/24 pantoprazole 40 mg tablet,delayed release 40 mg PO BIDCM #0 tabs 04/14/24
[2024-04-14 18:12] LABS: Urine Sodium 115 mmol/L (Not Establ.)
--- NOTE | 2024-04-14 18:28 | DS.PCM_ITS ---
Providers Date of Admission: 04/11/24 Date of Discharge: 04/14/24 Primary Care Physician: Dr. Clay Warren MD Consultations 04/12/24 13:30 Consult: Nephrology Routine Consulting Provider: Merced Diana Reason for Consult: hyponatremia EMERGENT Consult: No Notified: Yes Date Notified: 04/12/24 Time Notified: 13:30 Method of Notification: Verbal 04/12/24 17:52 Consult: Gastroenterology Routine Consulting Provider: [facility] Reason for Consult: iron deficiency anemia, need for EGD and colonoscopy EMERGENT Consult: No Notified: Yes Date Notified: 04/12/24 Time Notified: 18:35 Method of Notification: Text Reason For Visit: ACUTE ON CHRONIC ANEMIA Diagnosis Discharge Diagnosis (1) Anemia: Status: Chronic Code(s): D64.9 - Anemia, unspecified Qualifiers: Anemia type: unspecified type Qualified Code(s): D64.9 - Anemia, unspecified Plan 1. Acute anemia-secondary to gastric ulcer disease #2 chronic iron deficiency anemia-patient will be given IV iron #3 chronic hypoxic respiratory failure-patient is currently on nasal cannula oxygen #4 debility secondary to multiple medical problems-patient is being seen by PT and OT, he will need to return to a longterm facility after discharge from the hospital here. #5 hypothyroidism-patient is on Synthroid #6 nonischemic cardiomyopathy-patient's last echocardiogram showed an EF of 65% #7 hyponatremia-etiology unclear at this point, nephrology is participating in his care, his diuretics were stopped and he will be observed. Patient's sodium again today was 130 #8 colon polyp #9 diverticular disease of the colon According to nursing, patient states that he does not take hydrocortisone any longer, this was discontinued Total clinical time spent by myself addressing the patient's medical issues, reviewing his data, and collaborating with patient's care team: 35 minutes Medications at Discharge Home Medications multivitamin 1 ea PO DAILY SUPPLEMENT 08/27/16 hydroxychloroquine 200 mg tablet 200 mg PO DAILY ARTHRITIS 04/15/21 Disability Placard #1 ea 08/02/21 cetirizine 10 mg capsule (Zyrtec) 10 mg PO DAILY ALLERGIES 11/05/21 ascorbic acid (vitamin C) 1,000 mg capsule 1 g PO DAILY SUPPLEMENT 10/21/23 atorvastatin 40 mg tablet 40 mg PO QHS CHOLESTEROL 10/21/23 clobetasol 0.05 % topical cream 1 applic topical DAILY FEET 10/21/23 levothyroxine 100 mcg tablet 100 mcg PO DAILY THYROID 01/26/24 fluticasone furoate 200 mcg-vilanterol 25 mcg/dose inhalation powder (Breo Ellipta) 1 inh inhalation DAILY COPD 02/16/24 potassium chloride 20 mEq tablet,extended release(part/cryst) 20 meq PO DAILY SUPPLEMENT 02/16/24 Fropriya wheeled walker #1 ea 02/17/24 acetaminophen 325 mg tablet 650 mg (2 x 325 mg) PO Q6H PRN PRN Pain 1-10 Or Fever>100.7 #0 tabs 02/17/24 ipratropium 0.5 mg-albuterol 3 mg (2.5 mg base)/3 mL nebulization soln 3 ml inhalation Q6HWA.RT aerosal #0 mL 02/17/24 losartan 25 mg tablet 25 mg PO DAILY BLOOD PRESSURE #90 tabs 03/11/24 cholecalciferol (vitamin D3) 25 mcg (1,000 unit) tablet 1,000 unit PO BID SUPPLEMENT 03/15/24 furosemide 20 mg tablet 20 mg PO DAILY EDEMA 03/15/24 sodium chloride 1,000 mg soluble tablet 1,000 mg PO BID SUPPLEMENT 03/15/24 tamsulosin 0.4 mg capsule 0.4 mg PO DAILY prostate 04/11/24 albuterol sulfate 2.5 mg/3 mL (0.083 %) solution for nebulization 2.5 mg (3 mL) inhalation Q2H PRN PRN SOB &/OR WHEEZING #0 mL 04/14/24 melatonin 3 mg tablet 3 mg PO QHS PRN PRN Insomnia #0 tabs 04/14/24 pantoprazole 40 mg tablet,delayed release 40 mg PO BIDCM acid reflux/prevent ulcers #0 tabs 04/14/24 Hospital Course Operations None Procedures Blood transfusion, Colonoscopy and EGD Summary of Care Provided Minutes Spent on Discharge: 32 Hospital Course: This 73-year-old white male was seen in the emergency room at [facility] due to outpatient labs that indicated anemia. Repeat hemoglobin in the emergency room was low at 6.6, patient had been at a longterm facility undergoing skilled services due to debility from recent COVID infection. Patient's sodium was also noted to be low at 130. Patient was admitted to PCU for anemia and hyponatremia, he was given 2 units of packed red blood cells and seen in consultation by gastroenterology and nephrology, nephrology recommended fluid restriction, he was also seen by PT and OT. Patient underwent a colonoscopy and EGD, the colonoscopy showed diverticular disease and a small polyp which was removed, EGD showed gastric ulcers which were nonbleeding. Patient's hemoglobin was stable after the 2 units of packed red blood cells, arrangements are made for the patient to go to TCU for inpatient rehab services when he was discharged from the hospital. On 04/14/2024, patient was seen and examined: On examination he appeared in good health and spirits. Vital signs as documented. Skin warm and dry and without overt rashes. Neck without JVD, neck was supple, trachea midline, thyroid was normal. Lungs clear bilaterally, normal air movement was noted. Heart exam notable for regular rhythm, normal sounds and absence of murmurs, rubs or gallops. Abdomen unremarkable and without evidence of organomegaly, masses, or abdominal aortic enlargement. Bowel sounds are present, abdomen is not distended. Extremities nonedematous, no cyanosis was noted, no clubbing was noted. Neuro: Cranial nerves II through XII are grossly intact, no focal motor deficits were noted, sensation to light touch and pinprick intact, motor exam 5/5 throughout. Psych: Patient is alert and oriented x3, he does not appear anxious or depressed, he does not appear agitated. Patient appears stable for discharge to TCU for inpatient rehab services on 04/14/2024 Weight / BMI Weight Weight: 60.2 kg Body Mass Index (BMI) 22.1 ABG / Lab / Microbiology Data 04/14/24 06:15 04/14/24 06:15 Laboratory: Laboratory Results - last 24 hr 04/14/24 06:15: WBC 8.0, RBC 3.05 L, Hgb 9.4 L, Hct 28.4 L, MCV 93.1, MCH 30.8, MCHC 33.1, RDW Std Deviation 47.6 H, RDW Coeff of Sydni 14.1, Plt Count 179, MPV 9.0, Immature Gran % (Auto) 0.900, Neut % (Auto) 74.2 H, Lymph % (Auto) 6.0 L, M elvira % (Auto) 11.3 H, Eos % (Auto) 7.0 H, Baso % (Auto) 0.6, Absolute Neuts (auto) 5.9, Absolute Lymphs (auto) 0.48 L, Nucleated RBC % 0, Differential Comment SCANNED, Platelet Estimate ADEQUATE, PT 13.8, INR 1.1, APTT 35.0, Sodium 130 L, Potassium 3.9, Chloride 93 L, Carbon Dioxide 28.0, Anion Gap 9, BUN 10, C reatinine 0.62 L, Estim Creat Clear Calc 70.02, Est GFR (MDRD) Af Amer 165, Est GFR (MDRD) Non-Af 136, BUN/Creatinine Ratio 16.3, Glucose 79, Calcium 8.3 L, TSH 5.450 H 04/14/24 17:29: Ur Random Sodium 115, Urine Potassium 27.0 Microbiology: Microbiology 04/11/24 20:26 Urine, Clean Catch Urine Culture - Final Culture exhibits no growth. 04/11/24 16:05 Stool Stool Occult Blood (LILY) - Final Meaningful Use Info Meaningful Use Meaningful Use Diagnoses (Choose all that apply): None applicable Ischemic Stroke Statin Dosing Therapy Reference: STATIN DOSE THERAPY REFERENCE: * Patients > 75 years receive moderate or high dose statin therapy. * Patients 75 years or YOUNGER should receive HIGH intensity statin dose unless contraindicated. You will be required to document reason for non-treatment if statin daily dose does not meet guidelines. HIGH DOSE STATIN THERAPY DAILY Atorvastatin > than or = to 40 mg Rosuvastatin > than or = to 20 mg Amlodipine + Atorvastatin > than or = to 2.5/40 mg Ezetimibe + Simvastatin 10/80 mg Simvastatin 80mg Discharge Plan Admission Admit Date/Time: 04/11/24 17:15 Primary Reason for Your Visit: Anemia, hyponatremia Attending Provider: Jorge Patterson Primary Care Provider: Clay Warren Consulting Providers: Samra Kearney; Merced Diana Discharge Orders/Prescriptions Prescriptions: New albuterol sulfate 2.5 mg /3 mL (0.083 %) Solution For Nebulization 2.5 mg inhalation Q2H PRN PRN (Reason: SOB &/OR WHEEZING) Qty: 0 0RF melatonin 3 mg Tablet 3 mg PO QHS PRN PRN (Reason: Insomnia) Qty: 0 0RF pantoprazole 40 mg Tablet,Delayed Release (Dr/Ec) 40 mg PO BIDCM Qty: 0 0RF Continued (DME) [facility] See Rx Instructions .Route .MEDSUPPLY Qty: 1 0RF Rx Instructions: Expires 08/02/2026 Zyrtec 10 mg capsule 10 mg PO DAILY levothyroxine 100 mcg tablet 100 mcg PO DAILY multivitamin 1 EACH tablet 1 ea PO DAILY hydroxychloroquine 200 mg tablet 200 mg PO DAILY cholecalciferol (vitamin D3) 25 mcg (1,000 unit) tablet 1,000 unit PO BID ascorbic acid (vitamin C) 1,000 mg capsule 1 g PO DAILY clobetasol 0.05 % cream 1 applic TOPICAL DAILY atorvastatin 40 mg tablet 40 mg PO QHS potassium chloride 20 mEq tablet,ER particles/crystals 20 meq PO DAILY fluticasone furoate-vilanterol [Breo Ellipta] 200-25 mcg/dose blister with device 1 inh inhalation DAILY Rx Instructions: after inhalation, rinse mouth with water and spit out; do not swallow acetaminophen 325 mg Tablet 650 mg PO Q6H PRN PRN (Reason: Pain 1-10 Or Fever>100.7) Qty: 0 0RF ipratropium-albuterol 0.5 mg-3 mg(2.5 mg base)/3 mL Solution For Nebulization 3 ml inhalation Q6HWA.RT Qty: 0 0RF furosemide 20 mg tablet 20 mg PO DAILY sodium chloride 1,000 mg tablet,soluble 1,000 mg PO BID tamsulosin 0.4 mg capsule 0.4 mg PO DAILY (DME) [facility] See Rx Instructions .Route .MEDSUPPLY Qty: 1 0RF Rx Instructions: As directed losartan 25 mg tablet 25 mg PO DAILY Qty: 90 3RF Discontinued aspirin [Adult Aspirin Regimen] 81 mg tablet,delayed release (DR/EC) 81 mg PO QODAY triamcinolone acetonide [Nasacort] 55 mcg aerosol,spray 1 spray intranasal DAILY PRN (Reason: ALLERGIES ) Rx Instructions: administer into each nostril omeprazole 40 MG capsule,delayed release(DR/EC) 40 mg PO DAILY triamcinolone acetonide 0.1 % cream 1 applic TOPICAL DAILY magnesium oxide 400 mg (241.3 mg magnesium) tablet 400 mg PO BID albuterol sulfate 90 mcg/actuation HFA aerosol inhaler 2 puff inhalation Q4H PRN (Reason: SHORTNESS OF BREATH/WHEEZING ) albuterol sulfate 2.5 mg /3 mL (0.083 %) Solution For Nebulization 2.5 mg inhalation Q2H PRN PRN (Reason: SOB &/OR WHEEZING) Qty: 0 0RF umeclidinium 62.5 mcg/actuation blister with device 1 inh inhalation DAILY Qty: 3 3RF Referrals / Follow Up: Clay Warren MD [Primary Care Provider] - Disposition Disposition (needs filled in before D/C Order can be placed): [facility] Facility Charges/Coding Visit Charges Inpatient E&M: 05221 Disch Hosp >30min
[2024-04-14 18:50] LABS: Urine Chloride 90 mmol/L (Not Establ.)
== END 2024-04-14 18:27 | disposition skilled nursing facility (03) | DRG 812 ==
LOC: ED 16:30 → PCU 17:41
PROVIDERS: Anesthesiology; Internal Medicine Gastroenterology; Nurse Practitioner Adult Health; Admitting Provider Internal Medicine; Emergency Provider Emergency Medicine; PCP Family Medicine; Visit Provider Internal Medicine
PROC: 0DJD8ZZ Inspection of Lower Intestinal Tract, Via Natural or Artificial Opening Endoscopic (ICD-10-PCS; CPT 45378; principal; 2024-04-14 12:35)
DX: D50.9 Iron deficiency anemia, unspecified (principal); E22.2 Syndrome of inappropriate secretion of antidiuretic hormone; J96.11 Chronic respiratory failure with hypoxia; I42.8 Other cardiomyopathies; J44.0 Chronic obstructive pulmonary disease with (acute) lower respiratory infection; E27.40 Unspecified adrenocortical insufficiency; C34.90 Malignant neoplasm of unspecified part of unspecified bronchus or lung; I50.32 Chronic diastolic (congestive) heart failure; L40.50 Arthropathic psoriasis, unspecified; D63.8 Anemia in other chronic diseases classified elsewhere; E03.9 Hypothyroidism, unspecified; K25.9 Gastric ulcer, unspecified as acute or chronic, without hemorrhage or perforation; E78.5 Hyperlipidemia, unspecified; I25.10 Atherosclerotic heart disease of native coronary artery without angina pectoris; K21.9 Gastro-esophageal reflux disease without esophagitis; K63.5 Polyp of colon; K57.30 Diverticulosis of large intestine without perforation or abscess without bleeding; M19.90 Unspecified osteoarthritis, unspecified site; J22 Unspecified acute lower respiratory infection; Z79.890 Hormone replacement therapy; Z79.82 Long term (current) use of aspirin; Z79.51 Long term (current) use of inhaled steroids; Z87.891 Personal history of nicotine dependence; Z95.810 Presence of automatic (implantable) cardiac defibrillator; N40.1 Benign prostatic hyperplasia with lower urinary tract symptoms; R53.81 Other malaise; Z92.21 Personal history of antineoplastic chemotherapy; Z79.899 Other long term (current) drug therapy; Z90.49 Acquired absence of other specified parts of digestive tract; Z99.81 Dependence on supplemental oxygen
CPT/HCPCS: 36415; 80048; 80053; 80076; 81001; 82274; 82436; 82607; 82728; 82746; 83010; 83540; 83550; 83615; 83735; 83930; 83935; 84133; 84300; 84443; 84540; 85025; 85027; 85045; 85610; 85730; 86850; 86900; 86901; 86920; 86922; 87086; 88305; 88312; 88341; 88342; 93005; 94002; 94640; 94762; 97162; 97166; 97530; 97535; 99284; J7030; J7050; J7120; P9016; A4216; J2916

== ENCOUNTER → 2024-04-11 | Outpatient (REF) | payer MEDICARE, OTHER, SELFPAY ==
[2024-04-11 07:24] LABS: Hematocrit 19.6 % (40-54); Hemoglobin 6.4 g/dL (13.0-16.5); Mean Corp Hgb Conc 32.7 g/dL (32-36); Mean Corpuscular Hgb 31.4 pg (27.0-32.0); Mean Corpuscular Volume 96.1 fL (80-94); Mean Platelet Vol. 8.7 fl (6.2-12.0); Platelet Count 215 K/mm3 (150-450); RBC Distribution Width CV 14.2 % (11.6-14.6); RBC Distribution Width SD 49.7 fl (35.1-43.9); Red Blood Count 2.04 M/mm3 (4.6-6.2); White Blood Count 6.4 K/mm3 (4.4-11.0)
[2024-04-11 08:38] LABS: Anion Gap 8 (5-15); BUN 15 mg/dL (7-18); BUN/Creat Ratio 15.3 RATIO (10-20); Calcium,Total 8.8 mg/dL (8.5-10.1); Chloride 94 mmol/L (98-107); Creatinine, Serum 0.98 mg/dL (0.70-1.30); EST Glomerular Filtration Rate 80 mL/min (>60); Est Glom Filt Rate - Afr Amer 97 mL/min (>60); Glucose 98 mg/dL (74-106); Potassium 4.8 mmol/L (3.5-5.1); Sodium Level 130 mmol/L (136-145)
== END ==
LOC: OLS.SW 05:00
PROVIDERS: PCP Family Medicine; Visit Provider Internal Medicine
DX: I50.9 Heart failure, unspecified (principal); J44.9 Chronic obstructive pulmonary disease, unspecified; J96.11 Chronic respiratory failure with hypoxia; C34.90 Malignant neoplasm of unspecified part of unspecified bronchus or lung
CPT/HCPCS: 36415; 80048; 85027

== ENCOUNTER 2024-04-14 18:40 | Inpatient (IN) | payer MEDICARE, OTHER, SELFPAY ==
[2024-04-14 18:54] VITALS: BMI 22.1
[2024-04-14 20:00] VITALS: O2SAT 95
[2024-04-14 20:11] VITALS: BP 122/47; PULSE 84; RESP 20; TEMP 36.4; O2SAT 95
--- NOTE | 2024-04-14 20:11 | HP.PCM_ITS ---
HPI - General General Date of Admission: 04/14/24 Date of Service: 04/15/24 Chief Complaint: Here for rehabilitation. HPI Narrative 04/11/2024 JIGNESH LOPEZ, is a 73 Male who presents to [facility] ED with abnormal labs. Hemoglobin 6.4, short of breath for 6 weeks after hospitalization for covid. Oxygen 2 liters per nasal cannula. Hemoccult negative for blood, Aspirin every other day. Worsening fatigue. Transfuse 2 units PRBC. 04/11/2024 Admit [facility]. Transfuse 2 units PRBC, Hold aspirin, for acute anemia. Salt tablets for hyponatremia. UA, C+S for UTI. 04/12/2024 Nephrology recommended stop Furosemide, continue salt tablets for hyponatremia. . 04/12/2024 Hemoglobin 9.7, Hemoccult negative. Consult GI for EGD/colonoscopy for acute anemia. Iron IV for iron deficiency anemia. 04/13/2024 Hemoglobin stable, EGD/colonoscopy tomorrow. PT/OT SNF. 04/14/2024 Dr. Garcia EGD gastric ulcers. Dr. Garcia colonoscopy diverticulosis, colonic polyp removed. 04/14/2024 Admit to TCU with debility, here for rehabilitation, strengthening, prior to discharge to group home. [facility] Medical History History of chronic CHF Chronic respiratory failure with hypoxia GERD (gastroesophageal reflux disease) Hypothyroidism Debility Lung cancer Anemia Arthritis Lesion of pelvic bone Pneumothorax after biopsy Secondary pulmonary arterial hypertension Nonischemic cardiomyopathy Severe left ventricular systolic dysfunction Atherosclerotic heart disease of [place] coronary artery without angina pectoris PVD (peripheral vascular disease) Stage 3 severe COPD by GOLD classification Hyperlipidemia CHF (congestive heart failure), NYHA class I Psoriatic arthritis Home Medications ?Medication ?Instructions ?Recorded ?Last Taken ?Type multivitamin 1 ea PO DAILY SUPPLEMENT 08/27/16 02/16/24 History hydroxychloroquine 200 mg tablet 200 mg PO DAILY ARTHRITIS 04/15/21 02/16/24 History Disability Placard #1 ea 08/02/21 Unknown Rx cetirizine 10 mg capsule (Zyrtec) 10 mg PO DAILY ALLERGIES 11/05/21 02/16/24 History ascorbic acid (vitamin C) 1,000 mg 1 g PO DAILY SUPPLEMENT 10/21/23 02/16/24 History capsule atorvastatin 40 mg tablet 40 mg PO QHS CHOLESTEROL 10/21/23 02/15/24 History clobetasol 0.05 % topical cream 1 applic topical DAILY FEET 10/21/23 02/15/24 History levothyroxine 100 mcg tablet 100 mcg PO DAILY THYROID 01/26/24 02/16/24 History fluticasone furoate 200 1 inh inhalation DAILY COPD 02/16/24 02/15/24 History mcg-vilanterol 25 mcg/dose inhalation powder (Breo Ellipta) potassium chloride 20 mEq 20 meq PO DAILY SUPPLEMENT 02/16/24 02/16/24 History tablet,extended release(part/cryst) Eduardo pelletier walker #1 ea 02/17/24 Unknown Rx acetaminophen 325 mg tablet 650 mg (2 x 325 mg) PO Q6H PRN PRN 02/17/24 Unknown Rx Pain 1-10 Or Fever>100.7 #0 tabs ipratropium 0.5 mg-albuterol 3 mg 3 ml inhalation Q6HWA.RT aerosal 02/17/24 Unknown Rx (2.5 mg base)/3 mL nebulization #0 mL soln losartan 25 mg tablet 25 mg PO DAILY BLOOD PRESSURE #90 03/11/24 Unknown Rx tabs cholecalciferol (vitamin D3) 25 1,000 unit PO BID SUPPLEMENT 03/15/24 Unknown History mcg (1,000 unit) tablet furosemide 20 mg tablet 20 mg PO DAILY EDEMA 03/15/24 Unknown History sodium chloride 1,000 mg soluble 1,000 mg PO BID SUPPLEMENT 03/15/24 Unknown History tablet tamsulosin 0.4 mg capsule 0.4 mg PO DAILY prostate 04/11/24 Unknown History albuterol sulfate 2.5 mg/3 mL 2.5 mg (3 mL) inhalation Q2H PRN 04/14/24 Unknown Rx (0.083 %) solution for nebulization PRN SOB &/OR WHEEZING #0 mL melatonin 3 mg tablet 3 mg PO QHS PRN PRN Insomnia #0 04/14/24 Unknown Rx tabs pantoprazole 40 mg tablet,delayed 40 mg PO BIDCM acid reflux/prevent 04/14/24 Unknown Rx release ulcers #0 tabs Allergy/AdvReac Type Severity Reaction Status Date / Time No Known Allergies Allergy Verified 03/15/24 15:28 Family History Mother Heart disease Brother CVA (cerebral vascular accident) Father Cancer brain Grandmother Diabetes Surgical History History of appendectomy (~12/26/19) Implantable cardioverter-defibrillator (ICD) in situ (12/27/16) Social History household members: spouse and other housing: group home Smoking Status: Former smoker how long ago did patient quit smokin, 1.5p/day second hand exposure: Yes alcohol intake: never substance use type: does not use caffeine: Yes Type: coffee Number of servings: 2 what type of physical activity do you participate in: walking frequency: 3-4 times per week ROS Constitutional Constitutional: Denies chills, fever(s) or weight gain ENT HEENT: Denies headache(s), nasal congestion or nasal discharge Cardiovascular Cardiovascular: Denies chest pain or palpitations Respiratory/Chest Respiratory/Chest: Denies cough, excessive phlegm production or shortness of breath with exertion Gastrointestinal Gastrointestinal: Denies abdominal pain, nausea or vomiting Genitourinary Genitourinary: Denies dysuria Musculoskeletal Musculoskeletal: Denies joint pain or joint swelling Integumentary Integumentary: Denies rash or wounds Neurologic Neurologic: Denies focal weakness, numbness or tingling Psychiatric Psychiatric: Denies anxiety, auditory hallucinations, depression, homicidal ideation or suicidal ideation Physical Exam Const alert General Appearance: cooperative HEENT normocephalic Eyes PERRL and EOMs intact bilaterally Neck supple, no JVD and no carotid bruits Resp Auscultation: crackles, rhonchi, wheezes and diminished lung sounds Cardio regular rate and regular rhythm GI normal to inspection, nondistended, normoactive bowel sounds, non-tender and non-distended Extremity normal capillary refill General Extremity: Negative for edema Skin no rashes or lesions noted General Skin Exam: no breakdown Psych affect normal Appearance: appropriate Results Lab / Micro Data 04/15/24 05:03 04/15/24 05:03 Assessment & Plan Assessment/Plan (1) Debility: (2) Acute anemia: (3) Iron deficiency anemia: (4) Upper gastrointestinal bleed: (5) Gastric ulcer: (6) Hyponatremia: (7) GERD (gastroesophageal reflux disease): (8) Hyperlipidemia: QUALIFIERS: Hyperlipidemia type: unspecified Qualified Code(s): E 78.5 - Hyperlipidemia, unspecified (9) COPD (chronic obstructive pulmonary disease): (10) Hypokalemia: (11) BPH (benign prostatic hyperplasia): (12) Chronic heart failure with preserved ejection fraction (HFpEF): (13) Foot dermatitis: (14) Psoriatic arthritis: (15) Hypothyroidism: QUALIFIERS: Hypothyroidism type: unspecified Qualified Code(s): E 03.9 - Hypothyroidism, unspecified (16) Allergic rhinitis: QUALIFIERS: Allergic rhinitis seasonality: unspecified PLAN: Plan 73 year old male with below past medical history hospitalized for upper gastrointestinal bleed 2/2 gastric ulcers, complicated by hyponatremia, admitted to TCU with debility, here for rehabilitation, strengthening, prior to discharge home with . * Debility - PT/OT. * Pain - Tylenol 1000mg q6 prn pain (1-10). * Bowel - senna/colace 1 tablet bid, Magnesium citrate 300ml daily prn. * Adult immunization - Administer pneumonia vaccine, covid vaccine, flu vaccine as appropriate. * DVT prophylaxis - hold, ugib. * COPD exacerbation - Zosyn 3.375gm iv q8 x 7 days, Solu-medrol 125mg iv q6 x 7 days, Duoneb, Albuterol, VEST. * Vitamin C deficiency - Vitamin C 1000mg daily. * Hyperlipidemia - Atorvastatin 40mg qhs. * Vitamin D deficiency - D3 25mcg bid. * Foot dermatitis - Clobetasol cream topical daily. * chronic HFpEF - Losartan 25mg daily, Furosemide 20mg daily. * Psoriatic arthritis - Plaquenil 200mg daily. * Hypothyroidism - Levothyroxine 100mcg daily. * Allergic rhinitis - Loratadine 10mg daily. * Insomnia - Melatonin 3mg qhs prn. * Nutrition - MVI daily. * Gastric ulcer - Pantoprazole 40mg bidcm. * Hypokalemia - KCL 20meq daily. * Hyponatremia - Sodium chloride 1gm bid. * BPH - Tamsulosin 0.4mg daily.
--- NOTE | 2024-04-14 20:42 | NURSING ---
Adventitious lung sounds, SOB, weak, fatigued, dx: COPD/CHF. Dr. Infante notified of findings, new order for chest xray.
--- NOTE | 2024-04-14 21:45 | RAD_ITS ---
INDICATION: SOB, adventitious lung sounds EXAMINATION/TECHNIQUE: X-RAY - XR Chest 2 Views COMPARISON: February 16, 2024., October 21, 2023 FINDINGS: LINES/DEVICES: Single lead left chest AICD. LUNGS: Chronic worsening of the right hemidiaphragm elevation. Underlying hyperexpansion with hyperlucent lungs with coarsened interstitium. No consolidation, effusion, pneumothorax. MEDIASTINUM AND CARDIOVASCULAR STRUCTURES: Small chronic hiatal hernia. Cardiac silhouette not enlarged. Aortic atherosclerosis. BONES AND SOFT TISSUES: Unremarkable. RAD/Chest PA and Lateral IMPRESSION: Chronic obstructive pulmonary disease. Slowly worsening of nonspecific right hemidiaphragm elevation. Nonemergent fluoroscopic sniff test could evaluate for diaphragmatic dysfunction as clinically indicated.. Small hiatal hernia. Electronically Signed: Neftali Carr MD at 22:59 EDT ,
[2024-04-14] MEDS: 0.9% Saline Lock 10 ML Syringe IV ×2 (22:48→22:56)
[2024-04-14] MEDS: MethylPREDNISolone 125 MG/2 ML Vial IV (22:50)
[2024-04-14] MEDS: Sodium Chloride 1 GM Tablet PO (22:53)
[2024-04-14] MEDS: Atorvastatin Calcium 40 MG Tablet PO (22:54)
[2024-04-14] MEDS: Senna/Docusate Sodium 1 Tablet PO (22:55)
[2024-04-14] MEDS: 0.9% Normal Saline (250mL Bag) 250 ML 15 ML IV (22:57)
[2024-04-14] MEDS: Piperacil/Tazobactam 3.375 GM in 0.9% Normal Saline (50mL MB+) 50 ML IV (22:57)
--- NOTE | 2024-04-14 23:43 | NURSING ---
Reviewed chest xray results with Dr. Infante via telephone and current orders for Zosyn IV and IV solumedrol in place, no new orders at this time.
[2024-04-14] MEDS: Cholecalciferol (VIT D3) 25 MCG TABLET (1,000 UNITS) PO (23:46)
[2024-04-15] VITALS (14 sets, daily range): BP systolic 119; BP diastolic 52–55; PULSE 74–88; RESP 18–28; TEMP 36.9; O2SAT 79–97
[2024-04-15] MEDS: Albuterol 2.5 MG/3 ML VIAL.NEB. INHALATION ×2 (00:15→04:47)
--- NOTE | 2024-04-15 04:14 | NURSING ---
Pt called out to use the urinal. Unable to void. Pt also not able to get out of bed to sit on the BSC or toilet d/t weakness and dyspnea. Bladder scan resulted with 1006cc of urine in bladder. Straight cathed for 1250cc of clear, tea-colored urine. Pt denies feelings of discomfort/pressure in abdomen both before and after straight cath.
--- NOTE | 2024-04-15 04:40 | NURSING ---
Entered pt's room for 0400 rounds. Pt noted to be slumped down in the bed with gown off; incontinent. Pt appeared to be using a lot of effort to breath; using accessory muscles and tachypneic. SpO2 assessed; 79% on 5L. O2 rate increased to 8L to help patient recover; pt repositioned in the bed. Respiratory was called for a breathing tx. After approximately 10 minutes, SpO2 was noted to be 97% on 8L; rate decreased to 5L; follow-up SpO2 was 93%.
[2024-04-15] MEDS: 0.9% Saline Lock 10 ML Syringe IV ×5 (05:06→23:23)
[2024-04-15] MEDS: MethylPREDNISolone 125 MG/2 ML Vial IV ×4 (05:07→23:23)
[2024-04-15] MEDS: Levothyroxine 100 MCG Tablet PO (05:07)
[2024-04-15] MEDS: Piperacil/Tazobactam 3.375 GM in 0.9% Normal Saline (50mL MB+) 50 ML IV ×3 (05:15→23:12)
[2024-04-15 05:59] LABS: Absolute Lymphocyte Count 0.24 X10^3/uL (0.83-4.51); Absolute Neutrophil Count 5.3 X10^3/uL (2.0-7.7); Basophil# 0.02 X10^3/uL; Basophil% 0.3 % (0-1); Eosinophil# 0.03 X10^3/uL; Eosinophils% 0.5 % (0-5); Hemoglobin 9.8 g/dL (13.0-16.5); Lymphocyte # 0.24 X10^3/ul (0.83-4.51); Lymphocyte % 4.2 % (19-41); Mean Corp Hgb Conc 32.7 g/dL (32-36); Mean Corpuscular Hgb 30.3 pg (27.0-32.0); Mean Corpuscular Volume 92.9 fL (80-94); Mean Platelet Vol. 8.8 fl (6.2-12.0); Monocyte# 0.09 X10^3/uL; Monocyte% 1.6 % (0-10); NRBC Flagged by Analyzer 0.3 % (0-5); Neutrophil # 5.32 X10^3/uL (2.7-7.7); Neutrophil % 92.4 % (47-70); POSITIVE DIFFERENTIAL YES; Platelet Count 179 K/mm3 (150-450); RBC Distribution Width CV 13.7 % (11.6-14.6); RBC Distribution Width SD 46.3 fl (35.1-43.9); Red Blood Count 3.23 M/mm3 (4.6-6.2); White Blood Count 5.8 K/mm3 (4.4-11.0)
[2024-04-15 06:19] LABS: Anion Gap 7 (5-15); BUN 10 mg/dL (7-18); BUN/Creat Ratio 14.3 RATIO (10-20); Calcium,Total 8.7 mg/dL (8.5-10.1); Chloride 92 mmol/L (98-107); EST Glomerular Filtration Rate 118 mL/min (>60); Est Glom Filt Rate - Afr Amer 142 mL/min (>60); Estimated Creatinine Clearance 70.02 ml/min; Glucose 131 mg/dL (74-106); Potassium 4.3 mmol/L (3.5-5.1); Sodium Level 130 mmol/L (136-145)
[2024-04-15] MEDS: Ipratropium/Albuterol Sulfate 3 ML AMPUL.NEB INHALATION ×4 (07:03→19:51)
--- NOTE | 2024-04-15 10:07 | PCM.PN.DRR ---
TCU RX Drug Regimen Review Subjective/Objective Subjective/Objective: Subjective: 73 YOM admitted to TCU on 04/14/24 s/p hospitalization at [facility] for upper GI bleed secondary to gastric ulcers. During hospitalization, patient also had hyponatremia for which nephrology was consulted. Admitted to TCU for strengthening and rehabilitation prior to discharge home where he resides with his . Objective: Allergies No Known Allergies Allergy (Verified 03/15/24 15:28) Current Medications Generic Name Dose Route Start Last Admin Trade Name Freq PRN Reason Stop Dose Admin Acetaminophen 1,000 mg 04/14/24 20:29 Acetaminophen 500 Mg Tablet PO Q6H PRN PRN Pain Score 1-10 Albuterol Sulfate 2.5 mg 04/14/24 18:47 04/15/24 04:47 Albuterol 2.5 Mg/3 Ml Vial.Neb. INHALATION 2.5 mg Q2H PRN PRN Administration SOB &/OR WHEEZING Albuterol/Ipratropium 3 ml 04/14/24 22:00 04/15/24 07:03 Ipratropium/Albuterol Sulfate 3 Ml Ampul.Neb INHALATION 3 ml Q4HWA.RT ROLANDO Administration Ascorbic Acid 1,000 mg 04/15/24 08:00 Ascorbic Acid 500 Mg Tablet PO DAILYCM ROLANDO Atorvastatin Calcium 40 mg 04/14/24 22:00 04/14/24 22:54 Atorvastatin Calcium 40 Mg Tablet PO 40 mg QHS ROLANDO Administration Cholecalciferol 25 mcg 04/14/24 22:00 04/14/24 23:46 Cholecalciferol (Vit D3) 25 Mcg Tablet (1,000 Units) PO 25 mcg BID ROLANDO Administration Clobetasol Propionate 1 applic 04/15/24 10:00 Clobetasol Propionate 0.05% Cream TOPICAL DAILY ROLANDO Protocol Furosemide 20 mg 04/15/24 10:00 Furosemide 20 Mg Tablet PO DAILY ROLANDO Protocol Hydroxychloroquine Sulfate 200 mg 04/15/24 10:00 Hydroxychloroquine 200 Mg Tablet PO DAILY ROLANDO Piperacillin Sod/Tazobactam 50 mls @ 12.5 mls/hr 04/14/24 21:30 04/15/24 05:15 Sod 3.375 gm/ Sodium Chloride IV 12.5 mls/hr Q8 ROLANDO Administration Sodium Chloride 250 mls @ 15 mls/hr 04/14/24 21:36 04/14/24 22:57 IV 15 mls/hr .[id number] PRN Administration Additional IVPB Infusion Sodium Chloride 250 mls @ 15 mls/hr 04/14/24 21:36 IV .[id number] PRN Saline Flush Levothyroxine Sodium 100 mcg 04/15/24 06:00 04/15/24 05:07 Levothyroxine 100 Mcg Tablet PO 100 mcg DAILY@0600 ROLANDO Administration Loratadine 10 mg 04/15/24 10:00 Loratadine 10 Mg Tablet PO DAILY ROLANDO Losartan Potassium 25 mg 04/15/24 10:00 Losartan Potassium 25 Mg Tablet PO DAILY ROLANDO Protocol Magnesium Citrate 300 ml 04/14/24 20:28 Magnesium Citrate 300 Ml PO DAILY PRN Constipation Melatonin 3 mg 04/14/24 18:47 Melatonin 3 Mg Tablet PO QHS PRN PRN Insomnia Methylprednisolone 125 mg 04/14/24 21:25 04/15/24 05:07 Methylprednisolone 125 Mg/2 Ml Vial IV 04/21/24 21:26 125 mg Q6 ROLANDO Administration Multivitamins 1 tablet 04/15/24 08:00 Multivitamins,Therapeutic Tablet PO DAILYCM [facility] Pantoprazole Sodium 40 mg 04/15/24 08:00 Pantoprazole Sodium 40 Mg Tablet PO BIDCM [facility] Potassium Chloride 20 meq 04/15/24 10:00 Potassium Chloride Oral Tablet 20 Meq PO DAILY ROLANDO Fluticasone/Salmeterol 1 puff 04/14/24 22:00 Fluticasone/Salmeterol 232-14 Inhaler INHALATION Q12 ROLANDO Senna/Docusate Sodium 1 tablet 04/14/24 22:00 04/14/24 22:55 Senna/Docusate Sodium 1 Tablet PO 1 tablet BID ROLANDO Administration Sodium Chloride 1 gm 04/14/24 22:00 04/14/24 22:53 Sodium Chloride 1 Gm Tablet PO 1 gm BID ROLANDO Administration Sodium Chloride 10 - 40 ml 04/14/24 21:35 04/15/24 05:15 0.9% Saline Lock 10 Ml Syringe IV 10 ml UD PRN Administration SALINE FLUSH Tamsulosin HCl 0.4 mg 04/15/24 10:00 Tamsulosin Hcl 0.4 Mg Capsule PO DAILY ROLANDO Tuberculin PPD 0.1 ml 04/22/24 10:00 Tuberculin,Purif.Prot.Deriv. 50 Tu/Ml Vial ID 04/22/24 10:01 X1 ONE Problem List Foot dermatitis (Acute) Chronic heart failure with preserved ejection fraction (HFpEF) (Acute) BPH (benign prostatic hyperplasia) (Acute) COPD (chronic obstructive pulmonary disease) (Chronic) Gastric ulcer (Acute) Upper gastrointestinal bleed (Acute) Iron deficiency anemia (Acute) Acute anemia (Acute) Hyponatremia (Chronic) Allergic rhinitis (Chronic) Hypokalemia (Chronic) Debility (Chronic) Hypothyroidism (Chronic) GERD (gastroesophageal reflux disease) (Chronic) Hyperlipidemia (Chronic) Psoriatic arthritis (Chronic) Vital Signs Temp Pulse Resp BP Pulse Ox O2 Del Method O2 Flow Rate 97.6 F L 79 20 H 122/47 H 92 Nasal Cannula 5 04/14/24 20:11 04/15/24 07:02 04/15/24 07:02 04/14/24 20:11 04/15/24 07:02 04/15/24 07:02 04/15/24 07:02 Oxygen Flow Rate (L/min) 5 Oxygen Delivery Method Nasal Cannula Weight: 60.2 kg Body Mass Index (BMI) 22.1 Sodium 130 mmol/L (136-145) L 04/15/24 05:03 Potassium 4.3 mmol/L (3.5-5.1) 04/15/24 05:03 Chloride 92 mmol/L (98-107) L 04/15/24 05:03 Carbon Dioxide 31.0 mmol/L (21.0-32.0) 04/15/24 05:03 Anion Gap 7 (5-15) 04/15/24 05:03 BUN 10 mg/dL (7-18) 04/15/24 05:03 Creatinine 0.70 mg/dL (0.70-1.30) 04/15/24 05:03 Est GFR (MDRD) Af Amer 142 mL/min (>60) 04/15/24 05:03 Est GFR (MDRD) Non-Af 118 mL/min (>60) 04/15/24 05:03 BUN/Creatinine Ratio 14.3 RATIO (10-20) 04/15/24 05:03 Glucose 131 mg/dL (74-106) H 04/15/24 05:03 Assessment/Plan: 1. Pain: Acetaminophen 1000mg PO Q6h PRN pain 1-10. Please continue to monitor for increased/decreased s/s pain, PRN medication usage, liver enzymes with continued use. - The patient has not used any PRN doses of Tylenol since admission. Pain appears managed at this time. 2. COPD Exacerbation: Zosyn 3.375g IV Q8h, methylprednisolone 125mg IV Q6h thru 04/21, Duoneb inhalation Q4h, Albuterol inhalation Q2h PRN, Fluticasone/salmeterol inhaler BID. Please consider holding inhaler as patient on breathing treatment and systemic steroids at this time, which is creating a therapeutic duplication. Please continue to monitor for resolution of COPD exacerbation, culture data if applicable (none at this time), blood glucose (last 131 on 04/15), heart rate (last 79 BPM), respiratory status. 3. CHF/ HLD: Lipitor 40mg PO QHS, Lasix 20mg PO Daily, Losartan 25mg PO Daily, KCl 20mEq PO Daily. Please continue to monitor potassium (last 4.3 on 04/16), lipid panel annually (last done in 2016), renal function (SCr 0.7 on 04/15), stomach upset/nausea, headaches. 4. Gastric Ulcer/ recent GIB: Protonix 40mg PO BID. Please continue to monitor for headache, stomach upset, bloating. 5. Hypothyroidism: Synthroid 100mcg PO Daily. Please continue to monitor for s/s hyper/hypothyroidism, thyroid function (TSH 5.45 on 04/14). 6. Psoriatic arthritis: Plaquenil 200mg PO Daily. Please continue to monitor liver function (AST 38/ ALT 32 on 04/12), cardiac function, suicidal ideations. 7. BPH: Flomax 0.4mg PO Daily. Please continue to monitor BP (last 122/47), urinary retention/flow. 8. Hyponatremia: Sodium Chloride tabs 1g PO BID. Please continue to monitor sodium levels (last 130 on 04/15),dehydration, rash, encephalopathy. 9. Foot Dermatitis: Clobetasol topically Daily. Please continue to monitor for resolution of symptoms, skin irritation/redness. 10. Allergic Rhinitis: Claritin 10mg PO Daily. Please continue to monitor for improvement in allergy symptoms, congestion. 11. General Wellness: Ascorbic Acid 1000mg PO Daily, Vitamin D 25mcg PO BID, MVI 1 tab PO Daily. 12. Insomnia: Melatonin 3mg PO QHS PRN. Please continue to monitor for medication effectiveness, PRN usage, oversedation. Please consider administering medication at least 2 hours prior to desired bedtime to help improve medication effectiveness. 13. Bowel: Senna/Docusate 1 tab PO BID, Magnesium Citrate 300mL PO Daily PRN. Please continue to monitor for increased/decreased constipation/diarrhea. - last documented bowel movement was on 04/14/24. Assessment/Plan for indications treated with psychotropic medications: -The patient is not currently being maintained on any psychotropic medications at time of medication list review. Medical chart and medication regimen reviewed. The following medication irregularities or issues were identified: 1. COPD: Patient is on scheduled Duoneb and systemic steroids, and also has Advair inhaler ordered. This is a therapeutic duplication. Please consider stopping Advair while being treated with a systemic steroid and scheduled nebulization treatments, thank you. 2. Hyperlipidemia: Patient is currently taking Lipitor. Last lipid panel drawn was from 2017 per EMR review. Please consider obtaining a lipid panel if clinically indicated, thank you. Date Date of Note:: 04/15/24
[2024-04-15] MEDS: Multivitamins,Therapeutic Tablet 1 TABLET PO (10:33)
[2024-04-15] MEDS: Ascorbic Acid 500 MG Tablet 1000 MG PO (10:33)
[2024-04-15] MEDS: Pantoprazole Sodium 40 MG Tablet PO ×2 (10:33→17:16)
[2024-04-15] MEDS: Losartan Potassium 25 MG Tablet PO (10:34)
[2024-04-15] MEDS: Tamsulosin HCl 0.4 MG Capsule PO (10:35)
[2024-04-15] MEDS: Potassium Chloride Oral Tablet 20 MEQ PO (10:35)
[2024-04-15] MEDS: Furosemide 20 MG Tablet PO (10:35)
[2024-04-15] MEDS: Sodium Chloride 1 GM Tablet PO ×2 (10:36→23:20)
[2024-04-15] MEDS: Tuberculin,Purif.prot.deriv. 50 TU/ML Vial 0.1 ML ID (10:36)
[2024-04-15] MEDS: Senna/Docusate Sodium 1 Tablet PO ×2 (10:36→23:20)
[2024-04-15] MEDS: Cholecalciferol (VIT D3) 25 MCG TABLET (1,000 UNITS) PO ×2 (10:36→23:20)
[2024-04-15] MEDS: Hydroxychloroquine 200 MG Tablet PO (10:36)
[2024-04-15] MEDS: Loratadine 10 MG Tablet PO (10:37)
[2024-04-15] MEDS: Clobetasol Propionate 0.05% Cream 1 APPLIC TOPICAL (10:51)
--- NOTE | 2024-04-15 15:19 | CASEMGMT ---
Social Work SW met with patient and to complete initial assessment. Introduced self and role. Verified/updated contacts. Patient confirmed code status as full code. Educated to Medicare benefit and copay coverage. 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 Pt must return to independence with ADLs to return home. SW will continue to follow for DC planning. PRAFUL HusseinW
[2024-04-15] MEDS: Atorvastatin Calcium 40 MG Tablet PO (23:20)
[2024-04-15] MEDS: Nystatin Powder 15gm Bottle 1 APPLIC TOPICAL (23:20)
[2024-04-15] MEDS: Menthol/Lanolin/Calamine/Znox 113 GM Tube 1 APPLIC TOPICAL (23:21)
[2024-04-16] MEDS: Levothyroxine 100 MCG Tablet PO (05:30)
[2024-04-16] MEDS: MethylPREDNISolone 125 MG/2 ML Vial IV ×3 (05:32→18:13)
[2024-04-16] MEDS: Piperacil/Tazobactam 3.375 GM in 0.9% Normal Saline (50mL MB+) 50 ML IV ×3 (05:32→21:12)
[2024-04-16] MEDS: 0.9% Saline Lock 10 ML Syringe IV ×4 (05:33→21:10)
[2024-04-16 05:44] VITALS: BMI 21.7
[2024-04-16 07:40] VITALS: PULSE 81; RESP 17
[2024-04-16] MEDS: Ipratropium/Albuterol Sulfate 3 ML AMPUL.NEB INHALATION ×4 (07:40→19:12)
[2024-04-16] MEDS: Pantoprazole Sodium 40 MG Tablet PO ×2 (09:56→18:12)
[2024-04-16] MEDS: Ascorbic Acid 500 MG Tablet 1000 MG PO (09:56)
[2024-04-16] MEDS: Multivitamins,Therapeutic Tablet 1 TABLET PO (09:56)
[2024-04-16] MEDS: Loratadine 10 MG Tablet PO (09:56)
[2024-04-16] MEDS: Tamsulosin HCl 0.4 MG Capsule PO (09:57)
[2024-04-16] MEDS: Potassium Chloride Oral Tablet 20 MEQ PO (09:57)
[2024-04-16] MEDS: Losartan Potassium 25 MG Tablet PO (09:57)
[2024-04-16] MEDS: Sodium Chloride 1 GM Tablet PO ×2 (09:58→21:09)
[2024-04-16] MEDS: Senna/Docusate Sodium 1 Tablet PO ×2 (09:58→21:09)
[2024-04-16] MEDS: Furosemide 20 MG Tablet PO (09:58)
[2024-04-16] MEDS: Hydroxychloroquine 200 MG Tablet PO (09:58)
[2024-04-16] MEDS: Cholecalciferol (VIT D3) 25 MCG TABLET (1,000 UNITS) PO ×2 (09:59→21:08)
[2024-04-16] MEDS: Clobetasol Propionate 0.05% Cream 1 APPLIC TOPICAL (10:03)
[2024-04-16] MEDS: Nystatin Powder 15gm Bottle 1 APPLIC TOPICAL ×2 (10:09→21:06)
[2024-04-16] MEDS: Menthol/Lanolin/Calamine/Znox 113 GM Tube 1 APPLIC TOPICAL ×2 (10:09→21:07)
[2024-04-16] MEDS: 0.9% Normal Saline (250mL Bag) 250 ML 12.5 ML IV (14:04)
[2024-04-16 14:24] VITALS: PULSE 95; RESP 16
[2024-04-16 15:35] VITALS: PULSE 93; RESP 16
[2024-04-16 16:00] VITALS: BP 121/58; PULSE 97; RESP 16; TEMP 36.1; O2SAT 97
--- NOTE | 2024-04-16 16:30 | NURSING ---
Patient bladder scanned this AM at 397ml and patient unable to urinate. Hoang catheter placed at this time. 16Fr placed and 10ml placed in balloon. Patient tolerated well. Dr. Infante and made aware. states patient was newly started on Flomax approximately 1 week ago.
[2024-04-16 19:12] VITALS: PULSE 100; RESP 16; O2SAT 97
[2024-04-16] MEDS: Atorvastatin Calcium 40 MG Tablet PO (21:08)
[2024-04-16 21:28] VITALS: O2SAT 92
[2024-04-17] MEDS: MethylPREDNISolone 125 MG/2 ML Vial IV ×4 (00:09→19:03)
[2024-04-17] MEDS: 0.9% Saline Lock 10 ML Syringe IV ×6 (00:16→23:02)
[2024-04-17] MEDS: Acetaminophen 500 MG Tablet 1000 MG PO (03:25)
[2024-04-17 05:00] VITALS: BMI 21.9
[2024-04-17] MEDS: Levothyroxine 100 MCG Tablet PO (05:32)
[2024-04-17] MEDS: Piperacil/Tazobactam 3.375 GM in 0.9% Normal Saline (50mL MB+) 50 ML IV ×3 (05:34→23:04)
[2024-04-17 07:13] VITALS: PULSE 85; RESP 16; O2SAT 95
[2024-04-17] MEDS: Ipratropium/Albuterol Sulfate 3 ML AMPUL.NEB INHALATION ×3 (07:15→19:45)
[2024-04-17 09:32] VITALS: BP 122/54; PULSE 83; RESP 18; TEMP 36.4; O2SAT 99
[2024-04-17] MEDS: Multivitamins,Therapeutic Tablet 1 TABLET PO (09:36)
[2024-04-17] MEDS: Pantoprazole Sodium 40 MG Tablet PO ×2 (09:37→19:04)
[2024-04-17] MEDS: Loratadine 10 MG Tablet PO (09:37)
[2024-04-17] MEDS: Ascorbic Acid 500 MG Tablet 1000 MG PO (09:37)
[2024-04-17] MEDS: Menthol/Lanolin/Calamine/Znox 113 GM Tube 1 APPLIC TOPICAL ×2 (09:37→23:01)
[2024-04-17] MEDS: Potassium Chloride Oral Tablet 20 MEQ PO (09:38)
[2024-04-17] MEDS: Losartan Potassium 25 MG Tablet PO (09:38)
[2024-04-17] MEDS: Tamsulosin HCl 0.4 MG Capsule 0.8 MG PO (09:38)
[2024-04-17] MEDS: Furosemide 20 MG Tablet PO (09:38)
[2024-04-17] MEDS: Nystatin Powder 15gm Bottle 1 APPLIC TOPICAL ×2 (09:38→23:02)
[2024-04-17] MEDS: Hydroxychloroquine 200 MG Tablet PO (09:39)
[2024-04-17] MEDS: Senna/Docusate Sodium 1 Tablet PO ×2 (09:39→23:00)
[2024-04-17] MEDS: Sodium Chloride 1 GM Tablet PO ×2 (09:40→23:00)
[2024-04-17] MEDS: Cholecalciferol (VIT D3) 25 MCG TABLET (1,000 UNITS) PO ×2 (09:41→23:02)
[2024-04-17] MEDS: Clobetasol Propionate 0.05% Cream 1 APPLIC TOPICAL (09:41)
[2024-04-17] MEDS: 0.9% Normal Saline (250mL Bag) 250 ML 15 ML IV (12:56)
[2024-04-17] MEDS: Albuterol 2.5 MG/3 ML VIAL.NEB. INHALATION (13:45)
[2024-04-17 14:13] VITALS: PULSE 86; RESP 18
[2024-04-17 15:25] VITALS: PULSE 81; RESP 18
[2024-04-17] MEDS: Magnesium Citrate 300 ML PO (16:56)
[2024-04-17 19:45] VITALS: PULSE 92; RESP 18
--- NOTE | 2024-04-17 21:08 | CPS ---
[2015] Cough assist used 10x after pt.'s 30 min chest vest therapy.
[2024-04-17] MEDS: Atorvastatin Calcium 40 MG Tablet PO (23:01)
[2024-04-17 23:15] VITALS: O2SAT 95
[2024-04-18] VITALS (8 sets, daily range): BP systolic 134–135; BP diastolic 49–51; PULSE 70–85; RESP 14–24; TEMP 36.8; O2SAT 92–100; BMI 21.5
[2024-04-18] MEDS: MethylPREDNISolone 125 MG/2 ML Vial IV ×4 (00:47→19:19)
[2024-04-18] MEDS: 0.9% Saline Lock 10 ML Syringe IV ×4 (00:47→22:56)
[2024-04-18] MEDS: Piperacil/Tazobactam 3.375 GM in 0.9% Normal Saline (50mL MB+) 50 ML IV ×3 (07:04→22:58)
[2024-04-18] MEDS: Levothyroxine 100 MCG Tablet PO (07:05)
[2024-04-18] MEDS: Ipratropium/Albuterol Sulfate 3 ML AMPUL.NEB INHALATION ×3 (07:11→11:11)
[2024-04-18] MEDS: Pantoprazole Sodium 40 MG Tablet PO ×2 (09:55→17:09)
[2024-04-18] MEDS: Ascorbic Acid 500 MG Tablet 1000 MG PO (09:55)
[2024-04-18] MEDS: Multivitamins,Therapeutic Tablet 1 TABLET PO (09:55)
[2024-04-18] MEDS: Losartan Potassium 25 MG Tablet PO (09:56)
[2024-04-18] MEDS: Tamsulosin HCl 0.4 MG Capsule 0.8 MG PO (09:56)
[2024-04-18] MEDS: Loratadine 10 MG Tablet PO (09:56)
[2024-04-18] MEDS: Furosemide 20 MG Tablet PO (09:57)
[2024-04-18] MEDS: Hydroxychloroquine 200 MG Tablet PO (09:57)
[2024-04-18] MEDS: Potassium Chloride Oral Tablet 20 MEQ PO (09:57)
[2024-04-18] MEDS: Sodium Chloride 1 GM Tablet PO ×2 (09:58→22:55)
[2024-04-18] MEDS: Senna/Docusate Sodium 1 Tablet PO ×2 (09:58→22:55)
[2024-04-18] MEDS: Menthol/Lanolin/Calamine/Znox 113 GM Tube 1 APPLIC TOPICAL ×2 (09:59→22:54)
[2024-04-18] MEDS: Cholecalciferol (VIT D3) 25 MCG TABLET (1,000 UNITS) PO ×2 (09:59→22:55)
[2024-04-18] MEDS: Nystatin Powder 15gm Bottle 1 APPLIC TOPICAL ×2 (09:59→22:56)
[2024-04-18] MEDS: Clobetasol Propionate 0.05% Cream 1 APPLIC TOPICAL (10:00)
--- NOTE | 2024-04-18 11:25 | CPS ---
RT placed pt on treatment and vest therapy. Pt states he needed to use the bathroom. RT will check on pt again
[2024-04-18] MEDS: Atorvastatin Calcium 40 MG Tablet PO (22:56)
[2024-04-18] MEDS: Acetaminophen 500 MG Tablet 1000 MG PO (23:01)
[2024-04-19] MEDS: 0.9% Saline Lock 10 ML Syringe IV ×5 (01:00→23:07)
[2024-04-19] MEDS: MethylPREDNISolone 125 MG/2 ML Vial IV ×5 (01:00→23:00)
[2024-04-19 05:00] VITALS: BMI 21.8
--- NOTE | 2024-04-19 07:00 | NURSING ---
Chest vest in use. Levothyroxine to be administered after session using vest is complete.
[2024-04-19 07:02] VITALS: PULSE 83; RESP 16; O2SAT 95
[2024-04-19] MEDS: Ipratropium/Albuterol Sulfate 3 ML AMPUL.NEB INHALATION ×2 (07:02→15:55)
[2024-04-19] MEDS: Piperacil/Tazobactam 3.375 GM in 0.9% Normal Saline (50mL MB+) 50 ML IV ×3 (07:03→22:19)
[2024-04-19] MEDS: Multivitamins,Therapeutic Tablet 1 TABLET PO (08:26)
[2024-04-19] MEDS: Pantoprazole Sodium 40 MG Tablet PO ×2 (08:26→17:56)
[2024-04-19] MEDS: Loratadine 10 MG Tablet PO (08:26)
[2024-04-19] MEDS: Losartan Potassium 25 MG Tablet PO (08:26)
[2024-04-19] MEDS: Levothyroxine 100 MCG Tablet PO (08:26)
[2024-04-19] MEDS: Ascorbic Acid 500 MG Tablet 1000 MG PO (08:26)
[2024-04-19] MEDS: Furosemide 20 MG Tablet PO (08:27)
[2024-04-19] MEDS: Tamsulosin HCl 0.4 MG Capsule 0.8 MG PO (08:27)
[2024-04-19] MEDS: Potassium Chloride Oral Tablet 20 MEQ PO (08:27)
[2024-04-19] MEDS: Hydroxychloroquine 200 MG Tablet PO (08:28)
[2024-04-19] MEDS: Senna/Docusate Sodium 1 Tablet PO ×2 (08:28→22:21)
[2024-04-19] MEDS: Sodium Chloride 1 GM Tablet PO ×2 (08:29→22:21)
[2024-04-19] MEDS: Cholecalciferol (VIT D3) 25 MCG TABLET (1,000 UNITS) PO ×2 (08:29→22:21)
[2024-04-19] MEDS: Clobetasol Propionate 0.05% Cream 1 APPLIC TOPICAL (08:34)
[2024-04-19] MEDS: Menthol/Lanolin/Calamine/Znox 113 GM Tube 1 APPLIC TOPICAL ×2 (12:36→22:22)
[2024-04-19] MEDS: Nystatin Powder 15gm Bottle 1 APPLIC TOPICAL ×2 (12:36→22:22)
[2024-04-19] MEDS: 0.9% Normal Saline (250mL Bag) 250 ML 12.5 ML IV (13:47)
[2024-04-19 15:55] VITALS: PULSE 84; RESP 20
[2024-04-19 16:00] VITALS: BP 151/40; PULSE 76; RESP 16; TEMP 36.2; O2SAT 98
[2024-04-19] MEDS: Atorvastatin Calcium 40 MG Tablet PO (22:21)
[2024-04-19] MEDS: Acetaminophen 500 MG Tablet 1000 MG PO (22:56)
[2024-04-20] VITALS (8 sets, daily range): BP systolic 147–159; BP diastolic 69–72; PULSE 59–90; RESP 16–20; TEMP 36.5; O2SAT 95–100; BMI 21.8
[2024-04-20] MEDS: Piperacil/Tazobactam 3.375 GM in 0.9% Normal Saline (50mL MB+) 50 ML IV ×3 (05:40→21:26)
[2024-04-20] MEDS: 0.9% Saline Lock 10 ML Syringe IV ×4 (05:40→21:26)
[2024-04-20] MEDS: Levothyroxine 100 MCG Tablet PO (05:41)
[2024-04-20] MEDS: MethylPREDNISolone 125 MG/2 ML Vial IV (05:45)
[2024-04-20] MEDS: Multivitamins,Therapeutic Tablet 1 TABLET PO (08:56)
[2024-04-20] MEDS: Pantoprazole Sodium 40 MG Tablet PO ×2 (08:57→17:50)
[2024-04-20] MEDS: Ascorbic Acid 500 MG Tablet 1000 MG PO (08:58)
[2024-04-20] MEDS: Losartan Potassium 25 MG Tablet PO (08:59)
[2024-04-20] MEDS: Loratadine 10 MG Tablet PO (08:59)
[2024-04-20] MEDS: Menthol/Lanolin/Calamine/Znox 113 GM Tube 1 APPLIC TOPICAL ×2 (08:59→21:28)
[2024-04-20] MEDS: Furosemide 20 MG Tablet PO (09:00)
[2024-04-20] MEDS: Tamsulosin HCl 0.4 MG Capsule 0.8 MG PO (09:00)
[2024-04-20] MEDS: Potassium Chloride Oral Tablet 20 MEQ PO (09:00)
[2024-04-20] MEDS: Hydroxychloroquine 200 MG Tablet PO (09:01)
[2024-04-20] MEDS: Cholecalciferol (VIT D3) 25 MCG TABLET (1,000 UNITS) PO ×2 (09:01→21:27)
[2024-04-20] MEDS: Senna/Docusate Sodium 1 Tablet PO ×2 (09:01→21:27)
[2024-04-20] MEDS: Nystatin Powder 15gm Bottle 1 APPLIC TOPICAL ×2 (09:01→21:28)
[2024-04-20] MEDS: Clobetasol Propionate 0.05% Cream 1 APPLIC TOPICAL (09:01)
[2024-04-20] MEDS: Sodium Chloride 1 GM Tablet PO ×2 (09:01→21:27)
[2024-04-20] MEDS: predniSONE 10 MG Tablet 20 MG PO (09:07)
--- NOTE | 2024-04-20 10:27 | CASEMGMT ---
Social Work IDT met with patient and for care plan meeting. Discussed patient's progress in PT/OT/ST/SN. Educated to Medicare benefit. Provided with written communication on insurance process and copay coverage during stay. Pt's goal is to return home with . Pt currently on IV ATB and fluids. SW will continue to follow for DC planning. Mayelin Tony, CUSTOMER SERVICE DRIVER PATTERN HAND
--- NOTE | 2024-04-20 10:55 | RAD_ITS ---
PROCEDURE: Sniff test. DATE OF EXAMINATION: April 20, 2024. INDICATION: Male, 73 years old. Dyspnea. FLUOROSCOPY TIME (if supplied): (18 seconds) minutes/seconds. 4.73 mGy. One image was submitted. There is elevation of the right hemidiaphragm. The right hemidiaphragm does not move. RAD/Chest Sniff Test Fluoro Only IMPRESSION: Paralysis of the right hemidiaphragm. Electronically Signed: Sebastien Zheng MD at 11:23 EDT ,
--- NOTE | 2024-04-20 11:12 | NURSING ---
PT LEFT FLOOR BY WHEEL CHAIR FOR A SNIFF TEST AT 1050. PT RETURNED TO FLOOR BY WHEEL CHAIR AT 1110.
--- NOTE | 2024-04-20 11:37 | NURSING ---
Personnel Research Psychologist Note; Activity Asst: Complete Khoi is independent in his choice of daily activities. Prefers to be called Jamil. Jamil has vision impairment and can not see to read or watch tv. He listens to the tv and radio. His will bring his radio in for him, her welcomes visits from the vehicle delivery worker, therapy dog and staff. Staff will encourage social activities, remind him of weekly activities and respect his right to say no.
[2024-04-20] MEDS: Ipratropium/Albuterol Sulfate 3 ML AMPUL.NEB INHALATION ×3 (11:40→23:05)
--- NOTE | 2024-04-20 13:52 | CASEMGMT ---
BIMS () and PHQ2 (0) interviews completed on this date for MDS assessment. NATACHA Langford
--- NOTE | 2024-04-20 19:59 | NURSING ---
patient rep (Shama) notified of new order for f/u with post sniff test. Shama expresses thanks for update, no concerns voiced at this time
[2024-04-20] MEDS: Acetaminophen 500 MG Tablet 1000 MG PO (21:26)
[2024-04-20] MEDS: MELATONIN 3 MG TABLET PO (21:26)
[2024-04-20] MEDS: Atorvastatin Calcium 40 MG Tablet PO (21:27)
[2024-04-21 05:00] VITALS: BMI 21.6
[2024-04-21] MEDS: 0.9% Saline Lock 10 ML Syringe IV ×4 (05:10→22:19)
[2024-04-21] MEDS: Levothyroxine 100 MCG Tablet PO (05:11)
[2024-04-21] MEDS: Piperacil/Tazobactam 3.375 GM in 0.9% Normal Saline (50mL MB+) 50 ML IV ×2 (05:15→14:35)
[2024-04-21 07:01] VITALS: PULSE 80; RESP 18; O2SAT 99
[2024-04-21] MEDS: Ipratropium/Albuterol Sulfate 3 ML AMPUL.NEB INHALATION ×3 (07:01→15:50)
[2024-04-21 08:25] VITALS: BP 119/54; PULSE 81; RESP 17; TEMP 36.8; O2SAT 95
[2024-04-21] MEDS: Pantoprazole Sodium 40 MG Tablet PO ×2 (08:27→17:03)
[2024-04-21] MEDS: Multivitamins,Therapeutic Tablet 1 TABLET PO (08:27)
[2024-04-21] MEDS: predniSONE 10 MG Tablet 20 MG PO (08:27)
[2024-04-21] MEDS: Ascorbic Acid 500 MG Tablet 1000 MG PO (08:28)
[2024-04-21] MEDS: Menthol/Lanolin/Calamine/Znox 113 GM Tube 1 APPLIC TOPICAL ×2 (08:28→22:20)
[2024-04-21] MEDS: Loratadine 10 MG Tablet PO (08:28)
[2024-04-21] MEDS: Losartan Potassium 25 MG Tablet PO (08:29)
[2024-04-21] MEDS: Tamsulosin HCl 0.4 MG Capsule 0.8 MG PO (08:29)
[2024-04-21] MEDS: Potassium Chloride Oral Tablet 20 MEQ PO (08:29)
[2024-04-21] MEDS: Nystatin Powder 15gm Bottle 1 APPLIC TOPICAL ×2 (08:29→22:20)
[2024-04-21] MEDS: Furosemide 20 MG Tablet PO (08:29)
[2024-04-21] MEDS: Cholecalciferol (VIT D3) 25 MCG TABLET (1,000 UNITS) PO ×2 (08:30→22:20)
[2024-04-21] MEDS: Clobetasol Propionate 0.05% Cream 1 APPLIC TOPICAL (08:30)
[2024-04-21] MEDS: Senna/Docusate Sodium 1 Tablet PO ×2 (08:30→22:19)
[2024-04-21] MEDS: Sodium Chloride 1 GM Tablet PO ×2 (08:30→22:20)
[2024-04-21] MEDS: Hydroxychloroquine 200 MG Tablet PO (08:30)
--- NOTE | 2024-04-21 08:43 | NURSING ---
Custom Motorcycle Painter Note; MDS for 01/20/2024 Complete
[2024-04-21 11:35] VITALS: PULSE 82; RESP 20
[2024-04-21] MEDS: Atorvastatin Calcium 40 MG Tablet PO (22:19)
[2024-04-21 22:25] VITALS: RESP 19
[2024-04-22] MEDS: Levothyroxine 100 MCG Tablet PO (05:02)
[2024-04-22] MEDS: Magnesium Citrate 300 ML PO (05:02)
[2024-04-22 06:03] LABS: Absolute Lymphocyte Count 0.32 X10^3/uL (0.83-4.51); Absolute Neutrophil Count 7.4 X10^3/uL (2.0-7.7); Basophil# 0.01 X10^3/uL; Basophil% 0.1 % (0-1); Hematocrit 29.8 % (40-54); Hemoglobin 9.4 g/dL (13.0-16.5); Lymphocyte # 0.32 X10^3/ul (0.83-4.51); Lymphocyte % 3.8 % (19-41); Mean Corp Hgb Conc 31.5 g/dL (32-36); Mean Corpuscular Hgb 30.3 pg (27.0-32.0); Mean Corpuscular Volume 96.1 fL (80-94); Mean Platelet Vol. 9.6 fl (6.2-12.0); Monocyte# 0.56 X10^3/uL; Monocyte% 6.7 % (0-10); NRBC Flagged by Analyzer 0 % (0-5); Neutrophil # 7.41 X10^3/uL (2.7-7.7); POSITIVE DIFFERENTIAL YES; Platelet Count 162 K/mm3 (150-450); RBC Distribution Width CV 13.8 % (11.6-14.6); RBC Distribution Width SD 48.6 fl (35.1-43.9); White Blood Count 8.4 K/mm3 (4.4-11.0)
[2024-04-22] MEDS: Ipratropium/Albuterol Sulfate 3 ML AMPUL.NEB INHALATION ×3 (07:34→14:25)
[2024-04-22 07:35] VITALS: PULSE 84; RESP 20; O2SAT 97
[2024-04-22] MEDS: Multivitamins,Therapeutic Tablet 1 TABLET PO (09:32)
[2024-04-22] MEDS: Losartan Potassium 25 MG Tablet PO (09:33)
[2024-04-22] MEDS: Ascorbic Acid 500 MG Tablet 1000 MG PO (09:33)
[2024-04-22] MEDS: Loratadine 10 MG Tablet PO (09:33)
[2024-04-22] MEDS: Pantoprazole Sodium 40 MG Tablet PO ×2 (09:33→17:44)
[2024-04-22] MEDS: predniSONE 10 MG Tablet 20 MG PO (09:33)
[2024-04-22] MEDS: Sodium Chloride 1 GM Tablet PO ×2 (09:34→20:52)
[2024-04-22] MEDS: Hydroxychloroquine 200 MG Tablet PO (09:34)
[2024-04-22] MEDS: Furosemide 20 MG Tablet PO (09:34)
[2024-04-22] MEDS: Potassium Chloride Oral Tablet 20 MEQ PO (09:34)
[2024-04-22] MEDS: Tamsulosin HCl 0.4 MG Capsule 0.8 MG PO (09:34)
[2024-04-22] MEDS: Senna/Docusate Sodium 1 Tablet PO ×2 (09:34→20:52)
[2024-04-22] MEDS: Cholecalciferol (VIT D3) 25 MCG TABLET (1,000 UNITS) PO ×2 (09:35→20:53)
[2024-04-22] MEDS: Tuberculin,Purif.prot.deriv. 50 TU/ML Vial 0.1 ML ID (09:35)
[2024-04-22] MEDS: Nystatin Powder 15gm Bottle 1 APPLIC TOPICAL ×2 (09:42→20:51)
[2024-04-22] MEDS: Menthol/Lanolin/Calamine/Znox 113 GM Tube 1 APPLIC TOPICAL ×2 (09:44→20:57)
[2024-04-22] MEDS: Clobetasol Propionate 0.05% Cream 1 APPLIC TOPICAL (09:44)
[2024-04-22 09:54] LABS: Anion Gap 5 (5-15); BUN 26 mg/dL (7-18); BUN/Creat Ratio 27.1 RATIO (10-20); Calcium,Total 8.6 mg/dL (8.5-10.1); Chloride 97 mmol/L (98-107); Creatinine, Serum 0.96 mg/dL (0.70-1.30); EST Glomerular Filtration Rate 82 mL/min (>60); Est Glom Filt Rate - Afr Amer 99 mL/min (>60); Estimated Creatinine Clearance 57.07 ml/min; Glucose 111 mg/dL (74-106); Potassium 3.9 mmol/L (3.5-5.1); Sodium Level 136 mmol/L (136-145)
[2024-04-22 11:20] VITALS: PULSE 88; RESP 20
[2024-04-22 14:47] VITALS: BP 125/59; PULSE 92; RESP 15; TEMP 36.7; O2SAT 94
[2024-04-22 14:56] VITALS: PULSE 87; RESP 18
--- NOTE | 2024-04-22 15:22 | CHAPLAIN ---
Type of Pastoral Visit _x__ Initial Visit ___ Follow-up Visit ___ On-call Visit ___ General Patient Visit ___ Spiritual Assessment ___ Family Conference ___ Bereavement ___ Rapid Response ___ Code Blue ___ Other (describe below) Pastoral Care Referral From _x__ Patient ___ Family ___ Nurse ___ Physician ___ Concrete Block Mason ___ Graphic Design Assistant ___ Other (describe below) Sacrament/Intervention _x__ Active listening ___ Anointing ___ Voodoo ___ Bereavement ___ Communion ___ Ashley exploration ___ _x__ Life review _x__ Prayer ___ Reconciliation ___ Sacrament of Sick _x__ Supportive presence ___ Wedding ___ Other (describe below) Pastoral Comments patient is welcoming and talkative; pt expresses thanks for the time given to sit with him; pt talks about his current status and good care from the hospital; pt has a at home and he hopes to get home andi; pt says he is not mosque but believes and does welcome a prayer; pt has a philosophy of do good to others and they will do good to you;
[2024-04-22 15:35] LABS: Mucous, Urine 0 SEEN /hpf (<or=2+)
[2024-04-22 15:39] LABS: Color, Urine Yellow (Yellow); Glucose, Dipstick Normal (Normal); Ketone-Dipstick Negative (Negative); Leukocyte Esterase-Dipstick Negative /ul (Negative); Nitrite-Dipstick Negative (Negative); Occult Blood-Urine 10 /ul (Negative); Protein-Dipstick Negative (Negative); Urine Bilirubin Dipstick Negative (Negative); Urine Clarity Clear (Clear); Urine Urobilinogen Normal (Normal)
[2024-04-22 15:50] LABS: Bacteria 1+ /hpf (None Seen)
[2024-04-22 15:51] LABS: Red Blood Cells-Urine 0-5 SEEN /hpf (0-5); Squamous Epithelial Cells - UA 0-5 SEEN /hpf (0-5); White Blood Cells 0-5 SEEN /hpf (0-5)
--- NOTE | 2024-04-22 16:36 | NURSING ---
and therapy note that patient has been having repetitive behaviors and forgetfulness and reports this is not normal for patient. Dr. Infante made aware and NO for UA C&S. Collected via catheter.
[2024-04-22] MEDS: Atorvastatin Calcium 40 MG Tablet PO (20:53)
[2024-04-22 22:00] VITALS: PULSE 80; RESP 18; O2SAT 98
[2024-04-23] MEDS: Acetaminophen 500 MG Tablet 1000 MG PO ×2 (05:21→20:55)
[2024-04-23] MEDS: Levothyroxine 100 MCG Tablet PO (05:22)
[2024-04-23 05:50] VITALS: PULSE 68; RESP 16
[2024-04-23 06:35] VITALS: BMI 21.2
[2024-04-23 07:00] VITALS: PULSE 83; RESP 18; O2SAT 91
[2024-04-23] MEDS: Ipratropium/Albuterol Sulfate 3 ML AMPUL.NEB INHALATION ×2 (07:00→11:51)
[2024-04-23] MEDS: Senna/Docusate Sodium 1 Tablet PO ×2 (10:15→20:46)
[2024-04-23] MEDS: Loratadine 10 MG Tablet PO (10:15)
[2024-04-23] MEDS: Tamsulosin HCl 0.4 MG Capsule 0.8 MG PO (10:16)
[2024-04-23] MEDS: Multivitamins,Therapeutic Tablet 1 TABLET PO (10:16)
[2024-04-23] MEDS: predniSONE 10 MG Tablet 20 MG PO (10:16)
[2024-04-23] MEDS: Pantoprazole Sodium 40 MG Tablet PO ×2 (10:17→17:24)
[2024-04-23] MEDS: Ascorbic Acid 500 MG Tablet 1000 MG PO (10:17)
[2024-04-23] MEDS: Menthol/Lanolin/Calamine/Znox 113 GM Tube 1 APPLIC TOPICAL ×2 (10:18→20:49)
[2024-04-23] MEDS: Potassium Chloride Oral Tablet 20 MEQ PO (10:20)
[2024-04-23] MEDS: Furosemide 20 MG Tablet PO (10:20)
[2024-04-23] MEDS: Losartan Potassium 25 MG Tablet PO (10:20)
[2024-04-23] MEDS: Nystatin Powder 15gm Bottle 1 APPLIC TOPICAL ×2 (10:20→20:49)
[2024-04-23] MEDS: Hydroxychloroquine 200 MG Tablet PO (10:21)
[2024-04-23] MEDS: Sodium Chloride 1 GM Tablet PO ×2 (10:21→20:47)
[2024-04-23] MEDS: Cholecalciferol (VIT D3) 25 MCG TABLET (1,000 UNITS) PO ×2 (10:21→20:47)
[2024-04-23] MEDS: Clobetasol Propionate 0.05% Cream 1 APPLIC TOPICAL (10:22)
[2024-04-23 10:34] VITALS: BP 138/69; PULSE 81; O2SAT 97
[2024-04-23 11:51] VITALS: PULSE 81; RESP 17
--- NOTE | 2024-04-23 14:58 | NURSING ---
PT SLIGHTLY AGITATED WITH STAFF TODAY. ASKED PT WHAT WAS WRONG PT JUST STATED I DIDNT GET ANY SLEEP LAST NIGHT AND MY BREATHING PROBLEM. ASKED PT IF HE NEEDED ANY THING OR HOW WE COULD HELP, PT STATED NO LETHA FINE. WILL CONTINUE TO MONITOR.
[2024-04-23 16:00] VITALS: BP 135/54; PULSE 92; RESP 16; TEMP 36.5; O2SAT 98
[2024-04-23] MEDS: Atorvastatin Calcium 40 MG Tablet PO (20:47)
[2024-04-23] MEDS: MELATONIN 3 MG TABLET PO (20:51)
[2024-04-24] VITALS (7 sets, daily range): BP systolic 111–124; BP diastolic 47–59; PULSE 81–102; RESP 18–24; TEMP 37.1; O2SAT 94–98; BMI 21.2
[2024-04-24] MEDS: Ipratropium/Albuterol Sulfate 3 ML AMPUL.NEB INHALATION ×2 (03:46→07:15)
--- NOTE | 2024-04-24 04:38 | CPS ---
[0415] ABG attempted on pt. due to increased oxygen needs and history of hypercapnia due to COPD. Attempted first try with pt. yelling out mildly and shaking his arm. I went to attempt an ABG again, but pt. was agitated and not willing to give me his arm to try again. RN notified.
[2024-04-24] MEDS: Levothyroxine 100 MCG Tablet PO (05:13)
[2024-04-24] MEDS: Tamsulosin HCl 0.4 MG Capsule 0.8 MG PO (10:29)
[2024-04-24] MEDS: Potassium Chloride Oral Tablet 20 MEQ PO (10:30)
[2024-04-24] MEDS: Furosemide 20 MG Tablet PO (10:30)
[2024-04-24] MEDS: Ascorbic Acid 500 MG Tablet 1000 MG PO (10:30)
[2024-04-24] MEDS: Losartan Potassium 25 MG Tablet PO (10:31)
[2024-04-24] MEDS: Loratadine 10 MG Tablet PO (10:31)
[2024-04-24] MEDS: Hydroxychloroquine 200 MG Tablet PO (10:31)
[2024-04-24] MEDS: Multivitamins,Therapeutic Tablet 1 TABLET PO (10:31)
[2024-04-24] MEDS: predniSONE 10 MG Tablet 20 MG PO (10:32)
[2024-04-24] MEDS: Pantoprazole Sodium 40 MG Tablet PO ×2 (10:32→16:13)
[2024-04-24] MEDS: Senna/Docusate Sodium 1 Tablet PO ×2 (10:33→21:11)
[2024-04-24] MEDS: Sodium Chloride 1 GM Tablet PO ×2 (10:33→21:11)
[2024-04-24] MEDS: Clobetasol Propionate 0.05% Cream 1 APPLIC TOPICAL (10:34)
[2024-04-24] MEDS: Menthol/Lanolin/Calamine/Znox 113 GM Tube 1 APPLIC TOPICAL ×2 (10:34→21:13)
[2024-04-24] MEDS: Cholecalciferol (VIT D3) 25 MCG TABLET (1,000 UNITS) PO ×2 (10:34→21:12)
[2024-04-24] MEDS: Nystatin Powder 15gm Bottle 1 APPLIC TOPICAL ×2 (10:34→21:12)
--- NOTE | 2024-04-24 18:58 | NURSING ---
NEEDS CALLED TO SET UP A APPOINTMENT FOR PT.
[2024-04-24] MEDS: Atorvastatin Calcium 40 MG Tablet PO (21:11)
[2024-04-24] MEDS: MELATONIN 3 MG TABLET PO (21:14)
[2024-04-25] MEDS: Levothyroxine 100 MCG Tablet PO (05:45)
[2024-04-25 05:47] VITALS: PULSE 86; RESP 18; O2SAT 94
[2024-04-25 06:12] VITALS: BMI 21.0
[2024-04-25] MEDS: Ipratropium/Albuterol Sulfate 3 ML AMPUL.NEB INHALATION ×3 (07:35→20:43)
--- NOTE | 2024-04-25 07:46 | RAD_ITS ---
INDICATION: Distended abdomen, constipation. EXAMINATION/TECHNIQUE: X-RAY - XR Abdomen 1 View COMPARISON: No relevant prior comparison study available FINDINGS: BOWEL GAS PATTERN: Non-obstructive. No bowel or stomach distention. FREE AIR: Not assessed on a single supine view. ORGANOMEGALY: Not seen. CALCIFICATIONS: Vascular calcifications. Phleboliths in the left lower pelvis. Surgical clips in right lower quadrant could be due to previous appendectomy. LOWER CHEST: Atelectasis or scarring in the right lower lung. BONES AND SOFT TISSUES: No acute pathology. RAD/Abdomen Single View IMPRESSION: Non-obstructive bowel gas pattern. Electronically Signed: Flako Tarango MD at 11:12 EDT ,
[2024-04-25 09:28] VITALS: O2SAT 96
--- NOTE | 2024-04-25 10:11 | NURSING ---
Called Dr. Gary's office, patient has appt scheduled for Jun 15 @ 0657. They don't have any available appts sooner. Left note updating Dr. Infante.
--- NOTE | 2024-04-25 10:32 | CPS ---
Patient had been using NIV at home with O2 bleed in prior to his recent hospital/NH admissions. He has not had this device to use since his admission. I called his Shama this morning and asked her to bring his home device in. His mentation has been different than his usual and by report, this has worsened over the past week. He has been notably more agitated and confused at various times. I hooked up his device once it arrived, and he requested to wear it as soon as he was done working with therapy this morning. His nurse Nadira was made aware as was RT Maris covering TCU today. There is 4lpm bleed in and his 4lpm nc was placed in his lap for when he takes off his NIV device. Tab[facility] is his DME provider.
[2024-04-25] MEDS: predniSONE 10 MG Tablet 20 MG PO (11:23)
[2024-04-25] MEDS: Multivitamins,Therapeutic Tablet 1 TABLET PO (11:23)
[2024-04-25] MEDS: Pantoprazole Sodium 40 MG Tablet PO ×2 (11:24→18:23)
[2024-04-25] MEDS: Loratadine 10 MG Tablet PO (11:24)
[2024-04-25] MEDS: Losartan Potassium 25 MG Tablet PO (11:24)
[2024-04-25] MEDS: Ascorbic Acid 500 MG Tablet 1000 MG PO (11:24)
[2024-04-25] MEDS: Hydroxychloroquine 200 MG Tablet PO (11:25)
[2024-04-25] MEDS: Potassium Chloride Oral Tablet 20 MEQ PO (11:25)
[2024-04-25] MEDS: Tamsulosin HCl 0.4 MG Capsule 0.8 MG PO (11:25)
[2024-04-25] MEDS: Furosemide 20 MG Tablet PO (11:25)
[2024-04-25] MEDS: Nystatin Powder 15gm Bottle 1 APPLIC TOPICAL ×2 (11:29→21:32)
[2024-04-25] MEDS: Menthol/Lanolin/Calamine/Znox 113 GM Tube 1 APPLIC TOPICAL ×2 (11:29→21:32)
--- NOTE | 2024-04-25 11:30 | CPS ---
patient just finished eating breakfast, vest therapy held.
[2024-04-25] MEDS: Cholecalciferol (VIT D3) 25 MCG TABLET (1,000 UNITS) PO ×2 (11:42→21:32)
[2024-04-25] MEDS: Sodium Chloride 1 GM Tablet PO ×2 (11:42→21:31)
[2024-04-25] MEDS: Senna/Docusate Sodium 1 Tablet 2 TABLET PO ×2 (11:42→21:31)
[2024-04-25] MEDS: Clobetasol Propionate 0.05% Cream 1 APPLIC TOPICAL (11:46)
[2024-04-25 13:46] VITALS: BP 125/51; PULSE 80; RESP 14; TEMP 36.1; O2SAT 99
[2024-04-25 16:40] VITALS: O2SAT 96
[2024-04-25 20:43] VITALS: PULSE 95; RESP 20
[2024-04-25 21:00] VITALS: O2SAT 95
[2024-04-25] MEDS: MELATONIN 3 MG TABLET PO (21:29)
[2024-04-25] MEDS: Acetaminophen 500 MG Tablet 1000 MG PO (21:30)
[2024-04-25] MEDS: Nystatin 500,000 UNIT/5 ML PO.SYRINGE (WCH) 500000 UNIT PO (21:30)
[2024-04-25] MEDS: Atorvastatin Calcium 40 MG Tablet PO (21:31)
--- NOTE | 2024-04-25 22:40 | CPS ---
[2100] Pt. placed on home BiPAP unit with 3L bled-in.
[2024-04-26] VITALS (18 sets, daily range): BP systolic 108–109; BP diastolic 53–64; PULSE 88–103; RESP 18–24; TEMP 36.9; O2SAT 79–97; BMI 20.2
[2024-04-26] MEDS: Levothyroxine 100 MCG Tablet PO (05:06)
[2024-04-26] MEDS: Acetaminophen 500 MG Tablet 1000 MG PO ×3 (05:06→21:14)
[2024-04-26] MEDS: Nystatin 500,000 UNIT/5 ML PO.SYRINGE (WCH) 500000 UNIT PO ×4 (05:06→21:15)
[2024-04-26] MEDS: Ipratropium/Albuterol Sulfate 3 ML AMPUL.NEB INHALATION ×4 (07:01→19:50)
[2024-04-26] MEDS: Multivitamins,Therapeutic Tablet 1 TABLET PO (10:06)
[2024-04-26] MEDS: Pantoprazole Sodium 40 MG Tablet PO ×2 (10:07→16:37)
[2024-04-26] MEDS: predniSONE 10 MG Tablet 20 MG PO (10:07)
[2024-04-26] MEDS: Ascorbic Acid 500 MG Tablet 1000 MG PO (10:07)
[2024-04-26] MEDS: Menthol/Lanolin/Calamine/Znox 113 GM Tube 1 APPLIC TOPICAL ×2 (10:07→10:24)
[2024-04-26] MEDS: Loratadine 10 MG Tablet PO (10:08)
[2024-04-26] MEDS: Tamsulosin HCl 0.4 MG Capsule 0.8 MG PO (10:20)
[2024-04-26] MEDS: Senna/Docusate Sodium 1 Tablet 2 TABLET PO ×2 (10:23→21:15)
[2024-04-26] MEDS: Hydroxychloroquine 200 MG Tablet PO (10:23)
[2024-04-26] MEDS: Potassium Chloride Oral Tablet 20 MEQ PO (10:23)
[2024-04-26] MEDS: Losartan Potassium 25 MG Tablet PO (10:23)
[2024-04-26] MEDS: Furosemide 20 MG Tablet PO (10:23)
[2024-04-26] MEDS: Sodium Chloride 1 GM Tablet PO ×2 (10:24→21:16)
[2024-04-26] MEDS: Nystatin Powder 15gm Bottle 1 APPLIC TOPICAL ×2 (10:24→21:15)
[2024-04-26] MEDS: Cholecalciferol (VIT D3) 25 MCG TABLET (1,000 UNITS) PO ×2 (10:25→21:16)
[2024-04-26] MEDS: Clobetasol Propionate 0.05% Cream 1 APPLIC TOPICAL (10:26)
--- NOTE | 2024-04-26 11:11 | NURSING ---
AT 10AM THIS NURSE IN ROOM TO GIVE MEDS AND CHECKED VITALS,SPEECH IN ROOM. PT OXYGEN 79% ON 4L. ASKED PT IF HE WAS SOB,PT STATED LETHA ALWAYS SOB. PT NOT IN ANY DISTRESS. TURNED O2 UP TO 6L,PT WENT UP TO 82%. CALLED RN TO ROOM,GOT HI FLOW TUBING AND TURNED 02 UP TO 8L,02 NOW 88%. BASIA CALLED TO ROOM. NATALIE FROM [facility] TURN PT 02 UP 12L,STILL HOLDING ST 88%. [facility] GIVING PT A BREATHING TREATMENT. [facility] STATED TO GIVE PT SOME TIME . WILL CONTINUE TO MONITOR, WITH IN 30 MINS PT NOW 92%. TURNED PT DOWN TO 11L. WILL CONTINUE TO MONITOR.
--- NOTE | 2024-04-26 12:28 | MDS.RN ---
Information for the MDS was obtained from review of the clinical record, interview of resident, staff, and direct observation of resident?s care.
[2024-04-26] MEDS: MELATONIN 3 MG TABLET PO (21:14)
[2024-04-26] MEDS: Atorvastatin Calcium 40 MG Tablet PO (21:16)
[2024-04-27] VITALS (9 sets, daily range): BP systolic 96; BP diastolic 45; PULSE 88–96; RESP 16–20; TEMP 36.8; O2SAT 93–98
--- NOTE | 2024-04-27 00:47 | CPS ---
Patient placed on own PAP machine for the night at 23:20 with 7L O2 bleed 98%
--- NOTE | 2024-04-27 06:09 | NURSING ---
Observed attempting self-transfer despite education, gait unsteady. Written communication left for Dr. Infante requesting alarms to promote safety. Patient forgetful, encouraged to utilize call button for staff assist, ,verbalizes understanding
[2024-04-27] MEDS: Nystatin 500,000 UNIT/5 ML PO.SYRINGE (WCH) 500000 UNIT PO ×4 (06:16→21:16)
[2024-04-27] MEDS: Acetaminophen 500 MG Tablet 1000 MG PO ×3 (06:17→21:19)
[2024-04-27] MEDS: Levothyroxine 100 MCG Tablet PO (06:17)
[2024-04-27] MEDS: Ipratropium/Albuterol Sulfate 3 ML AMPUL.NEB INHALATION ×4 (06:51→19:40)
[2024-04-27] MEDS: Multivitamins,Therapeutic Tablet 1 TABLET PO (09:03)
[2024-04-27] MEDS: predniSONE 10 MG Tablet 20 MG PO (09:03)
[2024-04-27] MEDS: Ascorbic Acid 500 MG Tablet 1000 MG PO (09:04)
[2024-04-27] MEDS: Losartan Potassium 25 MG Tablet PO (09:04)
[2024-04-27] MEDS: Loratadine 10 MG Tablet PO (09:04)
[2024-04-27] MEDS: Tamsulosin HCl 0.4 MG Capsule 0.8 MG PO (09:04)
[2024-04-27] MEDS: Pantoprazole Sodium 40 MG Tablet PO ×2 (09:04→18:35)
[2024-04-27] MEDS: Senna/Docusate Sodium 1 Tablet 2 TABLET PO ×2 (09:05→21:14)
[2024-04-27] MEDS: Hydroxychloroquine 200 MG Tablet PO (09:05)
[2024-04-27] MEDS: Potassium Chloride Oral Tablet 20 MEQ PO (09:05)
[2024-04-27] MEDS: Furosemide 20 MG Tablet PO (09:05)
[2024-04-27] MEDS: Sodium Chloride 1 GM Tablet PO ×2 (09:06→21:12)
[2024-04-27] MEDS: Cholecalciferol (VIT D3) 25 MCG TABLET (1,000 UNITS) PO ×2 (09:06→21:23)
[2024-04-27] MEDS: Clobetasol Propionate 0.05% Cream 1 APPLIC TOPICAL (09:10)
[2024-04-27] MEDS: Menthol/Lanolin/Calamine/Znox 113 GM Tube 1 APPLIC TOPICAL ×2 (09:15→21:13)
[2024-04-27] MEDS: Nystatin Powder 15gm Bottle 1 APPLIC TOPICAL ×2 (13:06→21:21)
--- NOTE | 2024-04-27 15:48 | CASEMGMT ---
Social Work SW phoned to follow up on conversation with Dr. Infante yesterday. SW offered to schedule meeting in person. agreeable and scheduled for 1045 on 04/28. PRAFUL Hussein
--- NOTE | 2024-04-27 17:12 | NURSING ---
comes to this nurse to discuss that Dr. Infante brought up hospice with patient and she was wanting to know why and what patient's status has been. This nurse discusses with and patient regarding patient's decline with mobility and overall health and discuss that being placed with hospice means comfort care for a chronic illness. Also discuss code status and his options. Patient makes no changes at this time but reports they have a better understanding now and will discuss hospice care and changing code status.
[2024-04-27] MEDS: Atorvastatin Calcium 40 MG Tablet PO (21:16)
[2024-04-27] MEDS: MELATONIN 3 MG TABLET PO (21:22)
--- NOTE | 2024-04-27 21:40 | CPS ---
Pt is on his own NIV machine brought from home with 4 lpm O2 bleed in.
[2024-04-28] MEDS: Nystatin 500,000 UNIT/5 ML PO.SYRINGE (WCH) 500000 UNIT PO ×2 (05:06→13:51)
[2024-04-28] MEDS: Levothyroxine 100 MCG Tablet PO (05:06)
[2024-04-28] MEDS: Acetaminophen 500 MG Tablet 1000 MG PO ×2 (05:10→13:51)
[2024-04-28 06:37] VITALS: PULSE 85; RESP 18
[2024-04-28] MEDS: Ipratropium/Albuterol Sulfate 3 ML AMPUL.NEB INHALATION (06:37)
[2024-04-28] MEDS: Tamsulosin HCl 0.4 MG Capsule 0.8 MG PO (08:02)
[2024-04-28] MEDS: predniSONE 10 MG Tablet 20 MG PO (08:02)
[2024-04-28] MEDS: Multivitamins,Therapeutic Tablet 1 TABLET PO (08:02)
[2024-04-28] MEDS: Furosemide 20 MG Tablet PO (08:03)
[2024-04-28] MEDS: Ascorbic Acid 500 MG Tablet 1000 MG PO (08:03)
[2024-04-28] MEDS: Cholecalciferol (VIT D3) 25 MCG TABLET (1,000 UNITS) PO (08:03)
[2024-04-28] MEDS: Potassium Chloride Oral Tablet 20 MEQ PO (08:03)
[2024-04-28] MEDS: Loratadine 10 MG Tablet PO (08:03)
[2024-04-28] MEDS: Sodium Chloride 1 GM Tablet PO (08:03)
[2024-04-28] MEDS: Pantoprazole Sodium 40 MG Tablet PO (08:03)
[2024-04-28] MEDS: Losartan Potassium 25 MG Tablet PO (08:04)
[2024-04-28] MEDS: Hydroxychloroquine 200 MG Tablet PO (08:04)
[2024-04-28] MEDS: Menthol/Lanolin/Calamine/Znox 113 GM Tube 1 APPLIC TOPICAL (08:12)
[2024-04-28] MEDS: Nystatin Powder 15gm Bottle 1 APPLIC TOPICAL (08:12)
[2024-04-28] MEDS: FLU VACCINE **HIGH DOSE** TV 24-25 180 MCG/0.5 ML SYRINGE IM (08:13)
[2024-04-28] MEDS: Clobetasol Propionate 0.05% Cream 1 APPLIC TOPICAL (08:21)
[2024-04-28] MEDS: oxyCODONE 5 MG Tablet PO (11:39)
--- NOTE | 2024-04-28 11:49 | CASEMGMT ---
Addendum entered by Mayelin Tony 04/28/24 15:42: IPU nurse onsite and approved pt. Anticipated time of DC 1999. remains at bedside and aware. MDS completed by staff. Pt unable to participate. Plan: DC 04/28, [facility] Original Note: Social Work SW met with patient and to discuss hospice services. Both are agreeable. Pt made it clear he did not want to in TCU. Pt prefers to at home, but understands that is not 's wish, nor can care for him at home. SW educated to IPU and/or dying at home, when pt is imminent. Discussed BODYWORK THERAPIST option at home but pt is x2 assist and both agreed SNF or IPU. SW educated pt needing to meet criteria for IPU and suggested still select SNFs for this worker to refer. agreed. SW provided printed list of SNFs INN with quality and resource data via [employer] Guide. prefers [facility] or [facility]. is aware and has the funds to pay OOP for SNF. SW to assist with referrals. SW broached topic of changing pt's code status. agreed and changed to DNR-CC. Nursing and Dr notified. MITZY sent secure email to Jo at [facility], requesting IPU assessment today. MITZY sent referrals to [facility] and [facility] via [employer]. Will continue to follow. Mayelin Tony, PRAFUL BOUCHERW
[2024-04-28 16:00] VITALS: BP 98/47; PULSE 85; RESP 14; TEMP 36.6; O2SAT 96
[2024-04-28] MEDS: LORazepam 2 MG/ML Bottle 1 MG SL (16:29)
[2024-04-28] MEDS: morphine (oral solution) 10MG/0.5ML Syringe 10 MG SL (16:30)
--- NOTE | 2024-04-28 17:22 | DS.PCM_ITS ---
Providers Date of Admission: 04/14/24 Primary Care Physician: Dr. Clay Warren MD Consultations 04/28/24 11:54 Consult: Hospice / Palliative Care Routine Consulting Provider: [facility] Reason for Consult: end stage COPD and CHF EMERGENT Consult: Yes MD Notified: Yes Date Notified: 04/28/24 Time Notified: 11:54 Method of Notification: Text Reason For Visit: ACUTE ON CHRONIC ANEMIA Diagnosis Discharge Diagnosis (1) Debility: Status: Chronic Code(s): R53.81 - Other malaise (2) Acute anemia: Status: Acute Code(s): D64.9 - Anemia, unspecified (3) Iron deficiency anemia: Status: Acute Code(s): D50.9 - Iron deficiency anemia, unspecified (4) Upper gastrointestinal bleed: Status: Acute Code(s): K92.2 - Gastrointestinal hemorrhage, unspecified (5) Gastric ulcer: Status: Acute Code(s): K25.9 - Gastric ulcer, unspecified as acute or chronic, without hemorrhage or perforation (6) Hyponatremia: Status: Inactive Code(s): E87.1 - Hypo-osmolality and hyponatremia (7) GERD (gastroesophageal reflux disease): Status: Chronic Code(s): K21.9 - Gastro-esophageal reflux disease without esophagitis (8) Hyperlipidemia: Status: Chronic Code(s): E78.5 - Hyperlipidemia, unspecified Qualifiers: Hyperlipidemia type: unspecified Qualified Code(s): E78.5 - Hyperlipidemia, unspecified (9) COPD (chronic obstructive pulmonary disease): Status: Chronic Code(s): J44.9 - Chronic obstructive pulmonary disease, unspecified (10) Hypokalemia: Status: Chronic Code(s): E87.6 - Hypokalemia (11) BPH (benign prostatic hyperplasia): Status: Acute Code(s): N40.0 - Benign prostatic hyperplasia without lower urinary tract symptoms (12) Chronic heart failure with preserved ejection fraction (HFpEF): Status: Acute Code(s): I50.32 - Chronic diastolic (congestive) heart failure (13) Foot dermatitis: Status: Acute Code(s): L30.9 - Dermatitis, unspecified (14) Psoriatic arthritis: Status: Chronic Code(s): L40.50 - Arthropathic psoriasis, unspecified (15) Hypothyroidism: Status: Chronic Code(s): E03.9 - Hypothyroidism, unspecified Qualifiers: Hypothyroidism type: unspecified Qualified Code(s): E03.9 - Hypothyroidism, unspecified (16) Allergic rhinitis: Status: Chronic Code(s): J30.9 - Allergic rhinitis, unspecified Qualifiers: Allergic rhinitis seasonality: unspecified Plan 73 year old male with below past medical history hospitalized for upper gastrointestinal bleed 2/2 gastric ulcers, complicated by hyponatremia, admitted to TCU with debility, here for rehabilitation, strengthening, prior to discharge home with . * Debility - PT/OT. * Pain - Tylenol 1000mg q6 prn pain (1-10). * Bowel - senna/colace 1 tablet bid, Magnesium citrate 300ml daily prn. * Adult immunization - Administer pneumonia vaccine, covid vaccine, flu vaccine as appropriate. * DVT prophylaxis - hold, ugib. * COPD exacerbation - Zosyn 3.375gm iv q8 x 7 days, Solu-medrol 125mg iv q6 x 7 days, Duoneb, Albuterol, VEST. * Vitamin C deficiency - Vitamin C 1000mg daily. * Hyperlipidemia - Atorvastatin 40mg qhs. * Vitamin D deficiency - D3 25mcg bid. * Foot dermatitis - Clobetasol cream topical daily. * chronic HFpEF - Losartan 25mg daily, Furosemide 20mg daily. * Psoriatic arthritis - Plaquenil 200mg daily. * Hypothyroidism - Levothyroxine 100mcg daily. * Allergic rhinitis - Loratadine 10mg daily. * Insomnia - Melatonin 3mg qhs prn. * Nutrition - MVI daily. * Gastric ulcer - Pantoprazole 40mg bidcm. * Hypokalemia - KCL 20meq daily. * Hyponatremia - Sodium chloride 1gm bid. * BPH - Tamsulosin 0.4mg daily. Medications at Discharge Home Medications Disability Placard #1 ea 08/02/21 [facility] wheeled walker #1 ea 02/17/24 Hospital Course Operations None Procedures None Summary of Care Provided Minutes Spent on Discharge: 35 Hospital Course: 73 year old male with below past medical history hospitalized for upper gastrointestinal bleed 2/2 gastric ulcers, complicated by hyponatremia, admitted to TCU with debility, here for rehabilitation, strengthening, prior to discharge home with . Resident dying, uncomfortable. Discharge to inpatient hospice facility 04/28/2024. Physical Exam Const alert General Appearance: cooperative HEENT normocephalic Eyes PERRL and EOMs intact bilaterally Neck supple, no JVD and no carotid bruits Resp Auscultation: crackles, rhonchi, wheezes and diminished lung sounds Cardio regular rate and regular rhythm GI normal to inspection, nondistended, normoactive bowel sounds, non-tender and non-distended Extremity normal capillary refill General Extremity: Negative for edema Skin no rashes or lesions noted General Skin Exam: no breakdown Psych affect normal Appearance: appropriate Weight / BMI Weight Weight: 55.248 kg Body Mass Index (BMI) 20.2 ABG / Lab / Microbiology Data 04/22/24 05:05 04/22/24 05:05 Microbiology: Microbiology 04/22/24 15:30 Urine Catheter - Hoang Urine Culture - Final Culture exhibits no growth. D/C Instructions Discharge Diet: No restrictions Discharge Activity: Return to Normal Activity, May Shower and Use Walker Weight Bearing Status: Weight bearing as tolerated Additional Instructions: Discharge to inpatient hospice facility 04/28/2024. Please Follow Up With: Echo When: N/A. Meaningful Use Info Meaningful Use Meaningful Use Diagnoses (Choose all that apply): None applicable Ischemic Stroke Statin Dosing Therapy Reference: STATIN DOSE THERAPY REFERENCE: * Patients > 75 years receive moderate or high dose statin therapy. * Patients 75 years or YOUNGER should receive HIGH intensity statin dose unless contraindicated. You will be required to document reason for non-treatment if statin daily dose does not meet guidelines. HIGH DOSE STATIN THERAPY DAILY Atorvastatin > than or = to 40 mg Rosuvastatin > than or = to 20 mg Amlodipine + Atorvastatin > than or = to 2.5/40 mg Ezetimibe + Simvastatin 10/80 mg Simvastatin 80mg Discharge Plan Admission Admit Date/Time: 04/14/24 18:40 Primary Reason for Your Visit: Debility. Attending Provider: Gutierrez Infante Chi Primary Care Provider: Clay Warren Consulting Providers: Chito Gonsalez; Elena Nicole; Berta Pavon; Jessica Spence BILLBOARD ERECTOR HELPER Instructions Additional Instructions / Restrictions: Discharge to inpatient hospice facility 04/28/2024. Discharge Orders/Prescriptions Prescriptions: Discontinued Zyrtec 10 mg capsule 10 mg PO DAILY levothyroxine 100 mcg tablet 100 mcg PO DAILY multivitamin 1 EACH tablet 1 ea PO DAILY hydroxychloroquine 200 mg tablet 200 mg PO DAILY cholecalciferol (vitamin D3) 25 mcg (1,000 unit) tablet 1,000 unit PO BID ascorbic acid (vitamin C) 1,000 mg capsule 1 g PO DAILY clobetasol 0.05 % cream 1 applic TOPICAL DAILY atorvastatin 40 mg tablet 40 mg PO QHS potassium chloride 20 mEq tablet,ER particles/crystals 20 meq PO DAILY fluticasone furoate-vilanterol [Breo Ellipta] 200-25 mcg/dose blister with device 1 inh inhalation DAILY Rx Instructions: after inhalation, rinse mouth with water and spit out; do not swallow acetaminophen 325 mg Tablet 650 mg PO Q6H PRN PRN (Reason: Pain 1-10 Or Fever>100.7) Qty: 0 0RF ipratropium-albuterol 0.5 mg-3 mg(2.5 mg base)/3 mL Solution For Nebulization 3 ml inhalation Q6HWA.RT Qty: 0 0RF furosemide 20 mg tablet 20 mg PO DAILY sodium chloride 1,000 mg tablet,soluble 1,000 mg PO BID tamsulosin 0.4 mg capsule 0.4 mg PO DAILY albuterol sulfate 2.5 mg /3 mL (0.083 %) Solution For Nebulization 2.5 mg inhalation Q2H PRN PRN (Reason: SOB &/OR WHEEZING) Qty: 0 0RF melatonin 3 mg Tablet 3 mg PO QHS PRN PRN (Reason: Insomnia) Qty: 0 0RF pantoprazole 40 mg Tablet,Delayed Release (Dr/Ec) 40 mg PO BIDCM Qty: 0 0RF losartan 25 mg tablet 25 mg PO DAILY Qty: 90 3RF No Action (DME) Disability Placard See Rx Instructions .Route .MEDSUPPLY Qty: 1 0RF Rx Instructions: Expires 08/02/2026 (DME) Eduardo bunch See Rx Instructions .Route .MEDSUPPLY Qty: 1 0RF Rx Instructions: As directed Referrals / Follow Up: Clay Warren MD [Primary Care Provider] - Disposition Disposition (needs filled in before D/C Order can be placed): Hospice in Medical Facility
[2024-04-28 17:26] VITALS: BP 130/75; PULSE 70; RESP 14; TEMP 37.1; O2SAT 96
--- NOTE | 2024-04-28 17:42 | NURSING ---
Report called to Trixie at [facility] hospice
== END 2024-04-28 17:30 | disposition hospice, inpatient (51) | DRG 378 ==
PROVIDERS: Admitting Provider Family Medicine Geriatric Medicine; PCP Family Medicine; Visit Provider Family Medicine Geriatric Medicine
DX: K25.4 Chronic or unspecified gastric ulcer with hemorrhage (principal); E87.1 Hypo-osmolality and hyponatremia; B37.0 Candidal stomatitis; I42.8 Other cardiomyopathies; I50.32 Chronic diastolic (congestive) heart failure; J44.1 Chronic obstructive pulmonary disease with (acute) exacerbation; J96.11 Chronic respiratory failure with hypoxia; I27.21 Secondary pulmonary arterial hypertension; L40.50 Arthropathic psoriasis, unspecified; I11.0 Hypertensive heart disease with heart failure; E03.9 Hypothyroidism, unspecified; D50.9 Iron deficiency anemia, unspecified; L30.9 Dermatitis, unspecified; E78.5 Hyperlipidemia, unspecified; I25.10 Atherosclerotic heart disease of native coronary artery without angina pectoris; J30.9 Allergic rhinitis, unspecified; E87.6 Hypokalemia; E55.9 Vitamin D deficiency, unspecified; K21.9 Gastro-esophageal reflux disease without esophagitis; N40.0 Benign prostatic hyperplasia without lower urinary tract symptoms; Z79.51 Long term (current) use of inhaled steroids; Z87.891 Personal history of nicotine dependence; Z79.899 Other long term (current) drug therapy; Z86.16 Personal history of COVID-19; Z23 Encounter for immunization; Z95.810 Presence of automatic (implantable) cardiac defibrillator
CPT/HCPCS: 36415; 71046; 74018; 76000; 80048; 81001; 85025; 87086; 90662; 92526; 92610; 94640; 94667; 94668; 97110; 97116; 97162; 97166; 97530; 97535; 97802; J7050; A4216

== ENCOUNTER 2024-04-19 06:08 | Outpatient (RCR) | payer SELFPAY | END 2024-05-16 23:59 | LOC: PR 06:08 | PROVIDERS: PCP Family Medicine; Referring Provider Internal Medicine Critical Care Medicine; Visit Provider Internal Medicine Critical Care Medicine | DX: Z00.00 Encounter for general adult medical examination without abnormal findings (principal) ==

== ENCOUNTER → 2024-04-19 | Outpatient (CLI) | payer MEDICARE, OTHER, SELFPAY ==
--- NOTE | 2024-04-19 14:08 | ECHODONC_ITS ---
Reason For Study: Chemo Procedure This was a 2D Doppler, Color Flow transthoracic echocardiogram. Myocardial strain analysis was performed in this exam to aid in the assessment of cardiac function. Exam performed in department. Left Ventricle Normal LV size. Mild global left ventricular systolic dysfunction. The left ventricular ejection fraction is 50 %. No regional wall motion abnormalities noted. Right Ventricle Normal RV size. Normal systolic function. Tricuspid Valve Normal tricuspid valve. Mild tricuspid valve insufficiency. Great Vessels Normal aortic root. Pericardium/Pleural No pericardial effusion. MMode/2D Measurements & Calculations LVIDd: 4.6 cm IVSd: 1.2 cm LA dimension: 4.3 cm LVIDs: 3.5 cm LVPWd: 1.2 cm RVDd: 3.8 cm FS: 24.7 % LAV(MOD-bp): 48.4 ml SV(MOD-sp4): 34.6 ml LAV(MOD-sp2): 47.9 ml LVAd ap4: 26.1 cm2 LAV(MOD-sp4): 45.0 ml LVLd ap4: 7.1 cm EDV(MOD-sp4): 80.9 ml EDV(sp4-el): 81.6 ml LVAs ap4: 19.1 cm2 LVLs ap4: 6.4 cm ESV(MOD-sp4): 46.3 ml ESV(sp4-el): 48.0 ml EF(MOD-sp4): 42.8 % EF(sp4-el): 41.2 % SV(sp4-el): 33.6 ml LA A4 area: 17.5 cm2 RA A4 area: 11.1 cm2 TAPSE: 1.5 cm Time Measurements MV dec time: 0.18 sec Doppler Measurements & Calculations MV E max jason: 62.0 cm/sec Lat Peak E' Jason: 10.7 cm/sec Med Peak E' Jason: 5.2 cm/sec MV A max jason: 84.8 cm/sec E/E' lat: 5.8 E/E' med: 11.9 MV E/A: 0.73 MV V2 max: 95.6 cm/sec MV P1/2t max jason: 58.0 cm/sec Ao V2 max: 111.7 cm/sec MV max P.7 mmHg MV P1/2t: 70.0 msec Ao max P.0 mmHg MV V2 mean: 49.8 cm/sec Ao V2 mean: 72.0 cm/sec MV mean P.2 mmHg MV dec slope: 242.9 cm/sec2 Ao mean P.4 mmHg MV V2 VTI: 19.2 cm MVA(P1/2t): 3.1 cm2 Ao V2 VTI: 24.7 cm AV (velocity ratio): 0.67 LV V1 max: 89.2 cm/sec PA V2 max: 86.9 cm/sec TR max jason: 228.5 cm/sec LV V1 max P.2 mmHg PA max PG (full): 0.68 mmHg TR max P.9 mmHg LV V1 mean P.5 mmHg LV V1 mean: 55.9 cm/sec LV V1 VTI: 16.6 cm ECHO/ONC Echo Complete Interpretation Summary Mild global left ventricular systolic dysfunction. Mild tricuspid valve insufficiency. The left ventricular ejection fraction is 50 %. The global longitudinal strain is mildly abnormal. The global longitudinal stra in = -15.9% (abnormal). Ordering Physician: Adelfo Kwan Referring Physician: Adelfo Kwan Performed By: Pedro Pablo Browning RCS
== END | disposition home or self-care (01) ==
LOC: CVS 14:07
PROVIDERS: PCP Family Medicine; Referring Provider Internal Medicine Cardiovascular Disease; Visit Provider Internal Medicine Cardiovascular Disease
DX: I34.0 Nonrheumatic mitral (valve) insufficiency (principal)
CPT/HCPCS: 93306; 93356